=== PATIENT | female | born 2000 | race Caucasian/White ===

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

== ENCOUNTER 2023-01-14 13:41 | Emergency (ER) | payer OTHER, SELFPAY ==
[2023-01-14] VITALS (21 sets, daily range): BP systolic 102–118; BP diastolic 72–89; PULSE 71–121; RESP 10–26; TEMP 36.4; O2SAT 97–100
--- NOTE | ~2023-01-14 | CT_ITS ---
EXAMINATION: CT brain wo con DATE: 01/14/2023 15:18 INDICATION: Seizure. TECHNIQUE: Computed tomography (CT) of the head was performed without intravenous contrast. The mA wa s adjusted according to patient size. Iterative reconstruction technique was employed. The dose-lengt h product was 529.67 mGy-cm. COMPARISON: None FINDINGS: There is no intracranial hemorrhage, acute infarction, or abnormal intracranial mass lesion . The ventricles are normal in size. The orbits are normal. The paranasal sinuses are clear. The mast oid air cells are normal. IMPRESSION: 1. Normal brain. Reviewed, dictated and finalized at location A. [employer] IMPRESSION: 1. Normal brain.
--- NOTE | 2023-01-14 14:11 | ED.SEIZURE ---
HPI - Seizure General Chief Complaint: Seizure Stated Complaint: Siezure Time Seen by Provider: 01/14/23 14:07 Source: patient and family (mother and grandmother) Limitations: no limitations History of Present Illness HPI Narrative: This is a 22 yo female who presents after report of a seizure. Patient is on a number of psychiatric medications (see below). She had her first seizure in November 2022. This occurred while she was in [facility] and she knows they did lab work but unknown if a head CT was performed. Seizure at that time was attributed to sleep deprivation and medication withdrawal as she is prescribed clonazepam but hda been without that medication for a few days. She resumed the medication but has again been without it for the past 5 days despite having refills available. Meds are prescribed through her psychiatrist Dr Jennifer Huber. Mother reports today at 1310 she experienced 30 seconds of intermittent stiffness and shaking after she stopped talking mid-sentence. Head was deviated to the left. Activity stopped on its own and she was reportedly postictal for 5-7 minutes afterwards. no incontinence bowel/bladder and no tongue trauma. Denies drug use; former marijuana but not recently. She does endorse decresaed sleep and significant anxiety. She has been on clonazepam 1mg BID PRN since she was 18 years old but essentially uses it daily BID given her anxiety. Medication list is as below (minus cyproheptadine) in addition to the following: clonazepam, doxepin, lamotrigine, mirtazapine, chlorperazine, Buspar , buproprion Related Data Home Medications Medication Instructions Recorded Confirmed clonazepam 1 mg tablet 1 tablet PO TID 07/17/21 07/18/21 cyproheptadine 4 mg tablet See Rx Instructions .Route .COMPLEX 07/17/21 07/18/21 fluoxetine 20 mg capsule 20 cap PO DAILY 07/17/21 07/18/21 gabapentin 300 mg capsule 300 cap PO TID 07/17/21 07/18/21 hydroxyzine HCl 10 mg tablet 10 tablet PO TID 07/17/21 07/18/21 olanzapine 15 mg tablet 15 tablet PO DAILY 07/17/21 07/18/21 quetiapine 50 mg tablet 1 tablet PO BID 07/17/21 07/18/21 ondansetron HCl 8 mg tablet 8 mg PO Q8H 07/20/21 Allergies Allergy/AdvReac Type Severity Reaction Status Date / Time No Known Allergies Allergy Verified 01/14/23 13:49 [facility] Past Medical History Medical History (Updated 01/17/23 @ 11:06 by Julia Henley MD) Anxiety Depression Drug withdrawal seizure History of eating disorder Family History Family History Grandparent History of alcoholism Depression Mother History of alcoholism Hypertension Depression Social History Social History (Updated 01/17/23 @ 11:07 by Julia Henley MD) Smoking status: Never smoker Alcohol intake: never Substance use: former Substance use type: marijuana Living arrangements: with roommate(s) Occupation/Education: occupation Gender identity (if verbalized by the patient): Female Exam Narrative: GENERAL: Thin but Well-appearing, well-nourished, and in no acute distress. HEAD: Normocephalic, atraumatic. EYES: PERRLA, large approximately 6mm. ENT: Nares clear, no rhinorrhea or epistaxis. Mucous membranes moist. NECK: Supple. No rigidity CHEST: Speaking in full sentences. No respiratory distress. HEART: Regular rate and rhythm. Normal peripheral pulses. ABDOMEN: Soft, , nondistended, EXTREMITIES: Normal range of motion. No edema. SKIN: Warm, dry, no rash. NEURO: No focal deficits. Alert and oriented x3. Sensation intact to gross touch throughout. Facial symmetry with mvoements and touch. Stable gait. No clonus in bilateral lower extremities PSYCH: Normal mood and affect. Course Vital Signs Vital signs: Vital Signs Temperature 97.6 F 01/14/23 13:43 Pulse Rate 89 01/14/23 13:43 Respiratory Rate 16 01/14/23 13:43 Blood Pressure 112/89 01/14/23 13:43 Pulse Oximetry 100 01/14/23 13:43
[2023-01-14 18:10] LABS: Appearance Urine Clear (Clear); Bilirubin Urine Negative (Negative); Blood Urine Negative (Negative); Color Urine Yellow (Yellow); Glucose Urine UA Negative (Negative); Ketones Urine Negative (Negative); Leukocyte Esterase Ur Negative LEU/UL (Negative); Nitrate Urine Negative (Negative); Protein Urine Negative (Negative); Specific Grav Ur 1.014 (1.001-1.035); Urobilinogen Urine 0.2 mg/dL (<2.0)
[2023-01-14 18:13] LABS: Add Urine Microscopic? NO
[2023-01-14 18:18] LABS: Alanine Aminotransferase 14 U/L (6-35); Albumin Level 4.6 g/dL (3.5-5.1); Alkaline Phosphatase 90 U/L (38-126); Anion Gap 9 mmol/L (8-16); Aspartate Amino Transferase 25 U/L (14-36); Bilirubin,Total 0.4 mg/dL (0.2-1.3); Blood Urea Nitrogen 10 mg/dL (7-17); Calcium 9.2 mg/dL (8.4-10.2); Carbon Dioxide 25 mmol/L (22-30); Chloride 101 mmol/L (98-107); Estimated CRCL calculation 74 ml/min; Estimated Glomerular Filt Rate > 60; Glucose 87 mg/dL (65-110); Sodium 135 mmol/L (137-145)
[2023-01-14 18:28] LABS: Barbiturate Screen Urine Negative (Negative); Benzodiazepines Screen Urine Negative (Negative)
[2023-01-14 18:31] LABS: Cannabinoid Screen Urine Negative (Negative); Methadone Screen Urine Negative (Negative); Opiate Screen Urine Negative (Negative); Phencyclidine Screen Urine Negative (Negative)
[2023-01-14 18:39] LABS: Amphetamine Screen Urine Negative (Negative); Cocaine Screen Urine Negative (Negative)
[2023-01-14] MEDS: clonazePAM (*CRX) 0.5 MG TABLET 1 MG PO (19:22)
== END 2023-01-14 19:27 | disposition home or self-care (01) ==
PROVIDERS: Emergency Provider Student in an Organized Health Care Education/Training Program; PCP Family Medicine
DX: F13.239 Sedative, hypnotic or anxiolytic dependence with withdrawal, unspecified (principal); R56.9 Unspecified convulsions; T42.4X6A Underdosing of benzodiazepines, initial encounter; F41.9 Anxiety disorder, unspecified; F32.A Depression, unspecified
CPT/HCPCS: 36415; 70450; 80053; 80307; 81003; 81025; 95864; 99284; A9270

== ENCOUNTER 2023-02-08 09:21 | Emergency (ER) | payer OTHER, SELFPAY ==
--- NOTE | ~2023-02-08 | XR_ITS ---
XR elbow RT min 3V 02/08/2023 09:39 INDICATION: Right elbow pain PROCEDURE: 4 views right elbow COMPARISON: No prior studies for comparison. FINDINGS: Fracture, dislocation or subluxation is not identified. The soft tissues appear within norm al limits. No foreign bodies are identified. IMPRESSION: 1: NO ACUTE BONE OR JOINT ABNORMALITY IDENTIFIED. Reviewed, dictated and finalized at location A. HT STEWARD
--- NOTE | 2023-02-08 09:32 | ED.GENADULT ---
HPI - General Adult General Chief complaint: Extremity Injury, Upper Stated complaint: dislocated elbow Time Seen by Provider: 02/08/23 09:28 History of Present Illness HPI narrative: 22-year-old female presenting to the emergency department for evaluation of right elbow pain. Patient states that she has no recall of pain or injury. Patient went to bed last night with no elbow pain but she woke up this morning with right elbow pain. Patient's right elbow is tender to palpation Related Data Home Medications Medication Instructions Recorded Confirmed clonazepam 1 mg tablet 1 tablet PO TID 07/17/21 07/18/21 cyproheptadine 4 mg tablet See Rx Instructions .Route .COMPLEX 07/17/21 07/18/21 fluoxetine 20 mg capsule 20 cap PO DAILY 07/17/21 07/18/21 gabapentin 300 mg capsule 300 cap PO TID 07/17/21 07/18/21 hydroxyzine HCl 10 mg tablet 10 tablet PO TID 07/17/21 07/18/21 olanzapine 15 mg tablet 15 tablet PO DAILY 07/17/21 07/18/21 quetiapine 50 mg tablet 1 tablet PO BID 07/17/21 07/18/21 ondansetron HCl 8 mg tablet 8 mg PO Q8H 07/20/21 Allergies Allergy/AdvReac Type Severity Reaction Status Date / Time No Known Allergies Allergy Verified 01/14/23 13:49 Review of Systems Review of Systems: All systems reviewed & are unremarkable except as noted in HPI and below PMFSH Past Medical History Medical History (Updated 02/08/23 @ 10:20 by Obi Gloria MD) Anxiety Depression Drug withdrawal seizure History of eating disorder Family History Family History Grandparent History of alcoholism Depression Mother History of alcoholism Hypertension Depression Social History Social History (Updated 01/17/23 @ 11:07 by Julia Henley MD) Smoking status: Never smoker Alcohol intake: never Substance use: former Substance use type: marijuana Living arrangements: with roommate(s) Occupation/Education: occupation Gender identity (if verbalized by the patient): Female Exam Narrative: APPEARANCE: Well appearing, no pain, no distress, well-nourished. HEAD: normocephalic, atraumatic. EYES: PERRLA/EOMI, conjunctivae clear. NECK: Supple. No adenopathy, no masses. RESPIRATORY: Airway patent, respirations nonlabored. Clear to auscultation bilaterally, no rales, rhonchi, wheezing. CARDIOVASCULAR: Regular rate and rhythm without murmurs rubs or gallops. ABDOMINAL: Soft, nontender, nondistended, normal bowel sounds MUSCULOSKELETAL: Tenderness to right elbow without deformity, effusion or overlying erythema NEURO: Alert. Cranial nerves II through XII intact. Grossly intact SKIN: Warm, dry. Normal Color Course Course Emergency Course: 22-year-old female present to the emergency department for evaluation of right elbow pain. X-rays were negative for acute fracture dislocation. Patient exam is not consistent with septic arthritis, cellulitis or bursitis. Patient is being placed in a sling for comfort. Patient was advised to take Tylenol and ibuprofen for pain control. Patient family were also updated on reasons to return to the emergency department and the importance of having close follow-up with her primary care physician. All questions were addressed patient was well-appearing at time of discharge. Vital Signs Vital signs: Vital Signs Pulse Oximetry 100 02/08/23 09:34 Blood Pressure 116/88 02/08/23 10:01 Pulse Oximetry 100 02/08/23 10:01 Medical Decision Making Differential Diagnosis Differential Diagnosis: Elbow fracture, elbow contusion, elbow sprain, bursitis Vital Signs Vital Signs: Vital Signs Pulse Oximetry 100 02/08/23 09:34 Blood Pressure 116/88 02/08/23 10:01 Pulse Oximetry 100 02/08/23 10:01 Imaging Data Radiologist's impression: Impressions Elbow X-Ray 02/08/23 09:41 IMPRESSION: 1: NO ACUTE BONE OR JOINT ABNORMALITY IDENTIFIED. Discharge Plan
[2023-02-08 09:34] VITALS: O2SAT 100
[2023-02-08 09:45] VITALS: O2SAT 100
[2023-02-08 09:46] VITALS: BP 125/84; O2SAT 100
[2023-02-08 10:00] VITALS: O2SAT 99
[2023-02-08 10:01] VITALS: BP 116/88; O2SAT 100
== END 2023-02-08 10:36 | disposition home or self-care (01) ==
PROVIDERS: Emergency Provider Emergency Medicine; PCP Family Medicine
DX: M25.521 Pain in right elbow (principal); F41.9 Anxiety disorder, unspecified; F32.A Depression, unspecified
CPT/HCPCS: 73080; 99283; A4565

== ENCOUNTER 2023-04-02 15:31 | Emergency (ER) | payer OTHER, SELFPAY ==
[2023-04-02] VITALS (8 sets, daily range): BP systolic 93–122; BP diastolic 59–84; PULSE 72–117; RESP 12–18; TEMP 36.8–36.9; O2SAT 96–98
--- NOTE | 2023-04-02 15:46 | ED.SEIZURE ---
HPI - Seizure General Chief Complaint: Seizure Stated Complaint: SEIZURE Time Seen by Provider: 04/02/23 15:38 Source: patient and family Mode of arrival: EMS Limitations: no limitations History of Present Illness HPI Narrative: Patient presents after report of a seizure. It was reportedly witnessed by brother who does not accompany patient to ED. Unknown what it looked like or how long it lasted but it aborted on its own. No incontinence of bowel or bladder or tongue trauma. Patient had a seizure in January 2023 for which she presented to the ED and had a work up. That had been attributed to medication/benzodiazepine withdrawal but she had also been advised to follow up outpatient for MRI and EEG and to see neurology. Patient has not followed through on this. She did start taking her medication but has been slowly tapering off of this as well as hydroxyzine under the direction of her psychiatrist / PCP. She denies any alcohol or drug. She also had a seizure in February, thus 3 seizures in the past 8 weeks. She states her sleep is poor. Patient's family member does produce a list of current medications, as follows: buspirone 10 mg tablet, gabapentin 300 mg 2 times a day, fluoxetine 80 mg daily, lamotrigine 200 mg at night, quetiapine 500 mg at night, iron 325 mg. Of note, this shows/means that clonazepam, hydroxyzine, and mirtazapine have all been discontinued; all with final doses 03/24/23. Related Data Home Medications Medication Instructions Recorded Confirmed clonazepam 1 mg tablet 1 tablet PO TID 07/17/21 07/18/21 cyproheptadine 4 mg tablet See Rx Instructions .Route .COMPLEX 07/17/21 07/18/21 fluoxetine 20 mg capsule 20 cap PO DAILY 07/17/21 07/18/21 gabapentin 300 mg capsule 300 cap PO TID 07/17/21 07/18/21 hydroxyzine HCl 10 mg tablet 10 tablet PO TID 07/17/21 07/18/21 olanzapine 15 mg tablet 15 tablet PO DAILY 07/17/21 07/18/21 quetiapine 50 mg tablet 1 tablet PO BID 07/17/21 07/18/21 ondansetron HCl 8 mg tablet 8 mg PO Q8H 07/20/21 Allergies Allergy/AdvReac Type Severity Reaction Status Date / Time No Known Allergies Allergy Verified 04/02/23 16:32 [facility] Past Medical History Medical History Anxiety Depression Drug withdrawal seizure History of eating disorder Family History Family History Grandparent History of alcoholism Depression Mother History of alcoholism Hypertension Depression Social History Social History Smoking status: Never smoker Alcohol intake: never Substance use: former Substance use type: marijuana Living arrangements: with roommate(s) Occupation/Education: unemployed Additional occupation/education comments: not currently working or in school Gender identity (if verbalized by the patient): Female Exam Narrative: ?GENERAL: Thin but Well-appearing, well-nourished, and in no acute distress. HEAD: Normocephalic, atraumatic. EYES: large approximately 6mm. No scleral icterus/injection. ENT: Nares clear, no rhinorrhea or epistaxis.? NECK: Supple. No rigidity CHEST: Speaking in full sentences.? No respiratory distress. HEART: tachycardic rate and rhythm.? ? Normal peripheral pulses. ABDOMEN: Soft, , nondistended, EXTREMITIES: Normal range of motion.? No edema. SKIN: Warm, dry, no rash. NEURO: No focal deficits. Moving all extremities. ? Alert and oriented except to day of the week (confused, believes it is ). Sensation intact to gross touch throughout. Facial symmetry with movements. No clonus in bilateral lower extremities. No uncontrolled movements. PSYCH: Normal mood and affect. Course Vital Signs Vital signs: Vital Signs Temperature 98.4 F 04/02/23 15:46 Pulse Rate 117 H 04/02/23 15:46 Respiratory Rate 18 04/02/23 15:46 Blood Pressure 121/80 04/02/23 15:46 P
[2023-04-02] MEDS: ACETAMINOPHEN 325 MG TABLET 650 MG PO (16:37)
[2023-04-02 16:48] LABS: Glucose Point of Care 100 mg/dl (65-105)
[2023-04-02 16:49] LABS: Basophils Percent Auto 0.4 % (0.2-1.2); Hematocrit 39.5 % (37.0-47.0); Hemoglobin 12.3 g/dL (12.0-15.0); Immature Granulocyte Absolute 0.04 K/mm3 (0.00-0.031); Immature Granulocyte Percent A 0.6 % (0-0.5); Lymphocytes Absolute Auto 1.38 K/mm3 (0.9-3.2); Lymphocytes Percent Auto 19.4 % (18.3-44.2); Mean Corpuscular HGB Conc 31.1 g/dl (32-36); Mean Corpuscular Hemoglobin 25.7 pg (26-34); Mean Corpuscular Volume 82.6 fl (80-100); Monocytes Absolute Auto 0.7 K/mm3 (0.1-0.6); Neutrophils Percent Auto 69.6 % (45.5-73.1); Platelet Count Result 307 k/mm3 (150-375); Red Blood Count 4.78 M/mm3 (4.2-5.4); Red Cell Distribution Width 15.9 % (11.5-14.5); White Blood Count 7.1 K/mm3 (4.5-10.0)
[2023-04-02 17:10] LABS: Alanine Aminotransferase 16 U/L (6-35); Albumin Level 4.4 g/dL (3.5-5.1); Alkaline Phosphatase 71 U/L (38-126); Anion Gap 9 mmol/L (8-16); Aspartate Amino Transferase 28 U/L (14-36); Bilirubin,Total 0.5 mg/dL (0.2-1.3); Blood Urea Nitrogen 9 mg/dL (7-17); Calcium 9.2 mg/dL (8.4-10.2); Carbon Dioxide 24 mmol/L (22-30); Chloride 104 mmol/L (98-107); Estimated CRCL calculation 68 ml/min; Estimated Glomerular Filt Rate > 60; Glucose 85 mg/dL (65-110); Potassium 4.1 mmol/L (3.4-5.0); Sodium 137 mmol/L (137-145)
[2023-04-02] MEDS: SODIUM CHLORIDE 0.9% IV 1,000 ML 999 ML IV CONT (18:16)
--- NOTE | 2023-04-02 19:18 | PC.NURSE ---
Report given to Luiza ALEXANDER, all questions answered.
[2023-04-02 22:00] LABS: Barbiturate Screen Urine Negative (Negative); Benzodiazepines Screen Urine Negative (Negative); Cannabinoid Screen Urine Positive (Negative); Cocaine Screen Urine Negative (Negative); Methadone Screen Urine Negative (Negative); Opiate Screen Urine Negative (Negative); Phencyclidine Screen Urine Negative (Negative)
[2023-04-02 23:09] LABS: Amphetamine Screen Urine Negative (Negative)
== END 2023-04-02 22:09 | disposition home or self-care (01) ==
PROVIDERS: Emergency Provider Student in an Organized Health Care Education/Training Program; PCP Family Medicine
DX: R56.9 Unspecified convulsions (principal)
CPT/HCPCS: 36415; 80053; 80307; 82948; 85025; 96360; 96361; 99284; A9270; J7030

== ENCOUNTER 2023-04-15 20:43 | Emergency (ER) | payer OTHER, SELFPAY ==
[2023-04-15 21:12] VITALS: BP 142/84; PULSE 90; RESP 18; TEMP 37.1; O2SAT 100
[2023-04-15] MEDS: ONDANSETRON HCL ODT 4 MG TABLET PO (22:29)
[2023-04-15] MEDS: LORazepam (*CRX) 1 MG TABLET PO (22:30)
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
--- NOTE | 2023-04-15 23:45 | PC.NURSE ---
Spoke with HE Amor regarding pt's increased anxiety symptoms. States she will come see pt.
[2023-04-16] VITALS (31 sets, daily range): BP systolic 95–145; BP diastolic 24–92; PULSE 99–123; RESP 12–26; TEMP 36.6; O2SAT 95–100
--- NOTE | 2023-04-16 00:22 | PC.NURSE ---
Bedside report given to BENJAMIN Sparks. Pt moved from 21 to 14 for cardiac monitoring.
--- NOTE | 2023-04-16 00:53 | ED.ANXIETY ---
HPI - Anxiety General Chief Complaint: Anxiety <MERI Mead Last Filed: 04/17/23 09:48> Stated Complaint: anxiety <MERI Mead Last Filed: 04/17/23 09:48> Time Seen by Provider: 04/15/23 23:09 <MERI Mead Last Filed: 04/17/23 09:48> Source: patient <MERI Mead Last Filed: 04/17/23 09:48> Mode of arrival: ambulatory <MERI Mead Last Filed: 04/17/23 09:48> Limitations: no limitations <MERI Mead Last Filed: 04/17/23 09:48> History of Present Illness HPI narrative: This is a 22 year old female that presents to the ER for anxiety. Reports worsening over the last couple of days with stress in her life. Patient currently nauseas, hyperventilating, and asking for help. Denies suicidal or homicidal ideation. <MERI Mead Last Filed: 04/17/23 09:48> Related Data Home Medications: Home Medications Medication Instructions Recorded Confirmed clonazepam 1 mg tablet 1 tablet PO TID 07/17/21 07/18/21 cyproheptadine 4 mg tablet See Rx Instructions .Route .COMPLEX 07/17/21 07/18/21 fluoxetine 20 mg capsule 20 cap PO DAILY 07/17/21 07/18/21 gabapentin 300 mg capsule 300 cap PO TID 07/17/21 07/18/21 hydroxyzine HCl 10 mg tablet 10 tablet PO TID 07/17/21 07/18/21 olanzapine 15 mg tablet 15 tablet PO DAILY 07/17/21 07/18/21 quetiapine 50 mg tablet 1 tablet PO BID 07/17/21 07/18/21 ondansetron HCl 8 mg tablet 8 mg PO Q8H 07/20/21 <MERI Mead Last Filed: 04/17/23 09:48> Allergies/Adverse Reactions: Allergies Allergy/AdvReac Type Severity Reaction Status Date / Time No Known Allergies Allergy Verified 04/15/23 21:37 <Zuleyma Andrews PA-C - Last Filed: 04/17/23 09:48> Review of Systems Review of Systems: CONSTITUTIONAL: Denies fever GASTROINTESTINAL: Reports nausea, vomiting PSYCHIATRIC: Reports anxiety. Denies depression. <Zuleyma Andrews PA-C - Last Filed: 04/17/23 09:48> All systems reviewed & are unremarkable except as noted in HPI and below <Zuleyma Andrews PA-C - Last Filed: 04/17/23 09:48> PMFSH Past Medical History Medical History: Medical History Anxiety Depression Drug withdrawal seizure History of eating disorder <Zuleyma Andrews PA-C - Last Filed: 04/17/23 09:48> Family History Family History: Family History Grandparent History of alcoholism Depression Mother History of alcoholism Hypertension Depression <Zuleyma Andrews PA-C - Last Filed: 04/17/23 09:48> Social History Social History: Social History Smoking status: Never smoker Alcohol intake: never Substance use: former Substance use type: marijuana and prescription drug Living arrangements: with roommate(s) Occupation/Education: unemployed Additional occupation/education comments: not currently working or in school Gender identity (if verbalized by the patient): Female <MERI Mead Last Filed: 04/17/23 09:48> Exam Narrative: GENERAL: Well-appearing, well-nourished, anxious HEAD: Normocephalic, atraumatic. EYES: EOMI. CHEST: Clear to auscultation. No respiratory distress. No wheezes rales or rhonchi HEART: Regular rate and rhythm. No murmur heard. Normal peripheral pulses. ABDOMEN: Soft, nontender, nondistended, normal active bowel sounds. EXTREMITIES: Normal range of motion. No edema. SKIN: Warm, dry, no rash. NEURO: No focal deficits. Alert and oriented x3. PSYCH: Anxious, tearful <Zuleyma Andrews PA-C - Last Filed: 04/17/23 09:48> Course Course Emergency Course: Patient updated on her workup. Resting much more comfortably after Ativan. Awaiting consult by crisis. Care taken over by Dr. Swanson at shift change <Zuleyma Andrews PA-C - Last Filed:
--- NOTE | 2023-04-16 00:54 | PC.NURSE ---
IV attempted x 2, unsuccessful. Requested US IV from BENJAMIN Castano.
[2023-04-16 00:56] LABS: Basophils Percent Auto 0.2 % (0.2-1.2); Hematocrit 43.8 % (37.0-47.0); Immature Granulocyte Absolute 0.03 K/mm3 (0.00-0.031); Immature Granulocyte Percent A 0.3 % (0-0.5); Lymphocytes Absolute Auto 1.53 K/mm3 (0.9-3.2); Lymphocytes Percent Auto 14.4 % (18.3-44.2); Mean Corpuscular Hemoglobin 26.9 pg (26-34); Mean Corpuscular Volume 84.1 fl (80-100); Mean Platelet Volume 10.3 fl (7.4-10.4); Monocytes Absolute Auto 0.7 K/mm3 (0.1-0.6); Monocytes Percent Auto 6.6 % (2.6-8.5); Neutrophils Absolute Auto 8.4 K/mm3 (1.3-6.7); Neutrophils Percent Auto 78.5 % (45.5-73.1); Platelet Count Result 432 k/mm3 (150-375); Red Blood Count 5.21 M/mm3 (4.2-5.4); White Blood Count 10.7 K/mm3 (4.5-10.0)
[2023-04-16 01:07] LABS: Ethanol < 10 mg/dL (<10)
[2023-04-16] MEDS: SODIUM CHLORIDE 0.9% IV 1,000 ML 999 ML IV CONT ×2 (01:11→02:06)
[2023-04-16] MEDS: LORazepam INJ (*CRX) 2 MG/ML VIAL 1 MG IV PUSH (01:12)
[2023-04-16 01:55] LABS: Lipase 132 U/L (23-300)
[2023-04-16 01:57] LABS: Influenza A QL RT-PCR Negative (Negative); Influenza B QL RT-PCR Negative (Negative); RSV RNA, RT-PCR Negative (Negative); SARS-CoV-2 RNA PCR Negative (Negative)
[2023-04-16 02:12] LABS: Free T4 Free Thyroxine Reflex 1.01 ng/dL (0.78-2.19)
[2023-04-16 02:29] LABS: Alanine Aminotransferase 22 U/L (6-35); Alkaline Phosphatase 105 U/L (38-126); Anion Gap 14 mmol/L (8-16); Aspartate Amino Transferase 34 U/L (14-36); Bilirubin,Total 0.7 mg/dL (0.2-1.3); Blood Urea Nitrogen 12 mg/dL (7-17); Calcium 9.7 mg/dL (8.4-10.2); Carbon Dioxide 19 mmol/L (22-30); Chloride 106 mmol/L (98-107); Estimated CRCL calculation 74 ml/min; Estimated Glomerular Filt Rate > 60; Glucose 117 mg/dL (65-110); Potassium 3.8 mmol/L (3.4-5.0); Sodium 139 mmol/L (137-145)
[2023-04-16 02:57] LABS: Appearance Urine Cloudy (Clear); Bacteria Urine Rare /hpf; Bilirubin Urine Negative (Negative); Blood Urine Negative (Negative); Color Urine Yellow (Yellow); Glucose Urine UA Negative (Negative); Ketones Urine 2+ mg/dL (Negative); Leukocyte Esterase Ur Negative LEU/UL (Negative); Nitrate Urine Negative (Negative); Protein Urine 1+ mg/dL (Negative); RBC Urine 0-2 /hpf (0-2); Specific Grav Ur 1.025 (1.001-1.035); Squamous Epithelial Cell Urine Moderate /hpf (Few); WBC Urine 0-5 /hpf
[2023-04-16 03:12] LABS: Amphetamine Screen Urine Negative (Negative); Barbiturate Screen Urine Negative (Negative); Benzodiazepines Screen Urine Negative (Negative); Cannabinoid Screen Urine Positive (Negative); Cocaine Screen Urine Negative (Negative); Methadone Screen Urine Negative (Negative); Opiate Screen Urine Negative (Negative); Phencyclidine Screen Urine Negative (Negative)
[2023-04-16 03:21] LABS: Add Urine Microscopic? YES
[2023-04-16 03:22] LABS: Pregnancy On Board Control Positive; Urine Pregnancy Test Negative
== END 2023-04-16 07:55 | disposition home or self-care (01) ==
PROVIDERS: Physician Assistant; Emergency Provider Emergency Medicine; PCP Family Medicine
DX: F41.9 Anxiety disorder, unspecified (principal); F32.A Depression, unspecified; Z11.52 Encounter for screening for COVID-19
CPT/HCPCS: 36415; 80053; 80307; 81001; 81025; 83690; 84439; 84443; 84480; 85025; 87637; 96361; 96374; 99284; A9270; J2060; J7030

== ENCOUNTER 2023-04-19 15:15 | Emergency (ER) | payer OTHER, SELFPAY ==
[2023-04-19] VITALS (124 sets, daily range): BP systolic 105–140; BP diastolic 65–98; PULSE 76–120; RESP 12–39; TEMP 36.2–36.6; O2SAT 94–100
--- NOTE | ~2023-04-19 | XR_ITS ---
EXAMINATION: XR chest ET placement DATE: 04/19/2023 15:57 INDICATION: Intubation. TECHNIQUE: A single frontal view of the chest was obtained. COMPARISON: None. FINDINGS: There is no pneumonia, pleural effusion, or pneumothorax. The heart size is normal. The end otracheal tube tip is 2.4 cm above the jamila. The nasogastric tube tip is beyond the inferior margin of the radiograph, but at least to the stomach. IMPRESSION: 1. No acute cardiopulmonary disease. Reviewed, dictated and finalized at location E. NER CCO
--- NOTE | ~2023-04-19 | CT_ITS ---
EXAMINATION: CT brain wo con DATE: 04/19/2023 20:01 INDICATION: Seizure. Altered mental status. TECHNIQUE: Computed tomography (CT) of the head was performed without intravenous contrast. The mA wa s adjusted according to patient size. Iterative reconstruction technique was employed. The dose-lengt h product was 681.00 mGy-cm. COMPARISON: Head CT 01/14/2023 FINDINGS: There is no intracranial hemorrhage, acute infarction, or abnormal intracranial mass lesion . The ventricles are normal in size. The orbits are normal. The paranasal sinuses are clear. The mast oid air cells are normal. IMPRESSION: 1. Normal brain. Reviewed, dictated and finalized at location E. ANCE WILDLIFE TRAPPER IMPRESSION: 1. Normal brain.
--- NOTE | ~2023-04-19 | XR_ITS ---
EXAMINATION: XR abdomen gastric tube insert DATE: 04/19/2023 15:56 INDICATION: Orogastric tube placement TECHNIQUE: A supine view of the abdomen was obtained for evaluation of feeding tube placement. COMPARISON: None. FINDINGS: Nasogastric tube tip in proximal side port in the body of the stomach. No dilated loops of gas-filled bowel in the visualized abdomen or pelvis. Visualized portion of the lung bases are clear. IMPRESSION: 1. Nasogastric tube in the stomach. Reviewed, dictated and finalized at location A. GY CONSULTANT
[2023-04-19] MEDS: LORazepam INJ (*CRX) 2 MG/ML VIAL (15:22)
[2023-04-19] MEDS: RAPID SEQUENCE INTUBATION KIT 1 EACH (15:28)
--- NOTE | 2023-04-19 15:34 | ECG_ITS ---
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
--- NOTE | 2023-04-19 15:42 | ED.GENADULT ---
HPI - General Adult General Chief complaint: Overdose <Vadim Treviño MD - Last Filed: 04/19/23 18:16> Stated complaint: intentional OD on psych meds <Vadim Treviño MD - Last Filed: 04/19/23 18:16> Time Seen by Provider: 04/19/23 15:32 <Vadim Treviño MD - Last Filed: 04/19/23 18:16> History of Present Illness HPI narrative: She has patient 22-year-old female who presents emergency department with chief complaint overdose. Patient apparently took between 50 and 60 pills this evening. The patient has prior history of withdrawal and anxiety induced seizures the patient also has history of possible PTSD. EMS reports that the patient started having seizures in the back of the ambulance and had 2 of them and then seized in the emergency department. <Vadim Treviño MD - Last Filed: 04/19/23 18:16> Related Data Home medications: Home Medications Medication Instructions Recorded Confirmed clonazepam 1 mg tablet 1 tablet PO TID 07/17/21 07/18/21 cyproheptadine 4 mg tablet See Rx Instructions .Route .COMPLEX 07/17/21 07/18/21 fluoxetine 20 mg capsule 20 cap PO DAILY 07/17/21 07/18/21 gabapentin 300 mg capsule 300 cap PO TID 07/17/21 07/18/21 hydroxyzine HCl 10 mg tablet 10 tablet PO TID 07/17/21 07/18/21 olanzapine 15 mg tablet 15 tablet PO DAILY 07/17/21 07/18/21 quetiapine 50 mg tablet 1 tablet PO BID 07/17/21 07/18/21 ondansetron HCl 8 mg tablet 8 mg PO Q8H 07/20/21 <Vadim Treviño MD - Last Filed: 04/19/23 18:16> Allergies/adverse reactions: Allergies Allergy/AdvReac Type Severity Reaction Status Date / Time No Known Allergies Allergy Verified 04/15/23 21:37 <Vadim Treviño MD - Last Filed: 04/19/23 18:16> Review of Systems Review of Systems: A 10 system review of systems was completed on the patient and is negative except for what is stated in the HPI. Nursing and ancillary documentation was reviewed. <Vadim Treviño MD - Last Filed: 04/19/23 18:16> [facility] Past Medical History Medical History: Medical History Anxiety Depression Drug withdrawal seizure History of eating disorder <Vadim Treviño MD - Last Filed: 04/19/23 18:16> Family History Family History: Family History Grandparent History of alcoholism Depression Mother History of alcoholism Hypertension Depression <Vadim Treviño MD - Last Filed: 04/19/23 18:16> Social History Social History: Social History Smoking status: Never smoker Alcohol intake: never Substance use: former Substance use type: marijuana and prescription drug Living arrangements: with roommate(s) Occupation/Education: unemployed Additional occupation/education comments: not currently working or in school Gender identity (if verbalized by the patient): Female <Vadim Treviño MD - Last Filed: 04/19/23 18:16> Exam Narrative: GENERAL: Ill-appearing actively seizing combative HEAD: Normocephalic, atraumatic. EYES: PERRLA and EOMI. ENT: Nares clear, no rhinorrhea or epistaxis. Mucous membranes moist. NECK: Supple. CHEST: Clear to auscultation. No respiratory distress. HEART: Regular rate and rhythm. No murmur heard. Normal peripheral pulses. ABDOMEN: Soft, nontender, nondistended, normal active bowel sounds. EXTREMITIES: Normal range of motion. No edema. SKIN: Warm, dry, no rash. NEURO: Confused seizing PSYCH: Unable to obtain. <Vadim Treviño MD - Last Filed: 04/19/23 18:16> Course Course Emergency Course: 2315 GWENDOLYN: Patient sign it me pending transfer to [place]. [facility] cm not have a bed overnight. Patient was accepted at [facility] by Dr. Hancock and was transferred. <Alessandro Solis MD - Last
--- NOTE | 2023-04-19 15:44 | PC.NURSE ---
Call placed to poison control. They recommend supportive care and monitor for seizure activity.
[2023-04-19] MEDS: SODIUM CHLORIDE 0.9% IV 1,000 ML 999 ML IV CONT ×2 (15:45→16:10)
[2023-04-19] MEDS: MIDAZOLAM 100MG/NS 100ML(*CRX) 100 MG/100 ML BAG IV CONT (16:05)
[2023-04-19] MEDS: PROPOFOL IV EMULSION 100 ML 1.8 MG IV CONT (16:20)
[2023-04-19 16:32] LABS: Hematocrit 33.8 % (37.0-47.0); Hemoglobin 10.2 g/dL (12.0-15.0); Mean Corpuscular HGB Conc 30.2 g/dl (32-36); Mean Corpuscular Hemoglobin 27.2 pg (26-34); Mean Corpuscular Volume 90.1 fl (80-100); Mean Platelet Volume 9.7 fl (7.4-10.4); Platelet Count Result 384 k/mm3 (150-375); Red Blood Count 3.75 M/mm3 (4.2-5.4); Red Cell Distribution Width 16.1 % (11.5-14.5)
[2023-04-19 16:39] LABS: Alveolar/Arterial O2 Gradient 107.8 mmHg; Base Excess ABG -17.7 mEq/l (+/-2.0); Fractional Inspired Oxygen 100 %; HCO3 ABG 10.1 mEq/l (22.0-26.0); Oxygen Content ABG 18.5 %vol (16.0-22.0); Oxygen Saturation ABG 99.9 % (95.0-100.0); Oxyhemoglobin 98.4 % THb (90.0-100.0); PCO2 ABG 30.7 mmHg (35.0-45.0); PO2 ABG < 570.0 mmHg (80.0-100.0); PO2 FiO2 Ratio Arterial Blood 5.74 %; Total Hemoglobin 12.2 g/dL (12.0-18.0)
[2023-04-19 16:40] LABS: pH ABG 7.135 (7.350-7.450)
[2023-04-19 16:41] LABS: Arterial Blood Gas Vent Mode CMV; Arterial Blood Gas Ventilator rate 12 /MIN; Device VENTILATOR; Modified Allen's Test Pass; Site Drawn RIGHT RADIAL
[2023-04-19 16:42] LABS: Acetaminophen < 10 ug/mL (10-30); Ethanol < 10 mg/dL (<10); Salicylate < 1.0 mg/dL (2-20)
[2023-04-19 16:43] LABS: Arterial Blood Gas Minute Volume 3.7 LPM; Arterial Blood Gas PEEP 5 cmH2O
[2023-04-19 16:44] LABS: Alanine Aminotransferase 38 U/L (6-35); Albumin Level 3.2 g/dL (3.5-5.1); Alkaline Phosphatase 61 U/L (38-126); Anion Gap 20 mmol/L (8-16); Aspartate Amino Transferase 26 U/L (14-36); Bilirubin,Total 0.2 mg/dL (0.2-1.3); Blood Urea Nitrogen 13 mg/dL (7-17); Calcium 6.6 mg/dL (8.4-10.2); Carbon Dioxide 7 mmol/L (22-30); Chloride 112 mmol/L (98-107); Estimated CRCL calculation 65 ml/min; Estimated Glomerular Filt Rate > 60; Glucose 198 mg/dL (65-110); Potassium 2.7 mmol/L (3.4-5.0); Sodium 139 mmol/L (137-145)
[2023-04-19 16:44] LABS: Arterial Blood Gas Tidal Volume 285 ml; Peak Inspiratory Pressure 13 cmH2O
[2023-04-19 17:05] LABS: Appearance Urine Clear (Clear); Bacteria Urine None Seen /hpf; Bilirubin Urine Negative (Negative); Blood Urine Trace (Negative); Color Urine Yellow (Yellow); Glucose Urine UA Negative (Negative); Hyaline Casts Urine Present /lpf; Ketones Urine Negative (Negative); Leukocyte Esterase Ur Negative LEU/UL (Negative); Nitrate Urine Negative (Negative); Protein Urine 1+ mg/dL (Negative); RBC Urine 0-2 /hpf (0-2); Specific Grav Ur 1.009 (1.001-1.035); Squamous Epithelial Cell Urine None seen /hpf (Few); Urobilinogen Urine 0.2 mg/dL (<2.0); WBC Urine 0-5 /hpf; pH Urine 5.5 (5.0-9.0)
[2023-04-19 17:07] LABS: Add Urine Microscopic? YES
[2023-04-19 17:08] LABS: Amphetamine Screen Urine Negative (Negative); Barbiturate Screen Urine Negative (Negative); Benzodiazepines Screen Urine Negative (Negative); Cannabinoid Screen Urine Positive (Negative); Cocaine Screen Urine Negative (Negative); Methadone Screen Urine Negative (Negative); Opiate Screen Urine Negative (Negative); Phencyclidine Screen Urine Negative (Negative)
[2023-04-19 17:11] LABS: Influenza A QL RT-PCR Negative (Negative); Influenza B QL RT-PCR Negative (Negative); RSV RNA, RT-PCR Negative (Negative); SARS-CoV-2 RNA PCR Negative (Negative)
[2023-04-19] MEDS: FENTANYL 2,500MCG/NS250ML(*CRX 2,500 MCG/250 ML BAG IV CONT (17:15)
[2023-04-19 17:24] LABS: Band Neutrophils Percent 2 % (0-6); Lymphocytes Absolute Manual 4.42 K/mm3 (1.1-4.5); Monocytes Absolute Manual 1.87 K/mm3 (0.1-0.90); Monocytes Percent Manual 11 % (3-9); Neutrophils Absolute Manual 10.71 K/mm3 (1.7-7.2); Neutrophils Percent Manual 61 % (46-73); Total Cells Counted 100
[2023-04-19 17:25] LABS: Hypochromasia 1+ (NORMAL); Platelet Estimate Increased (Adequate); Schistocytes None Seen (NORMAL)
[2023-04-19 17:26] LABS: Anisocytosis 2+ (NORMAL)
[2023-04-19 17:57] LABS: Magnesium 2.3 mg/dL (1.6-2.3)
[2023-04-19] MEDS: fentaNYL CITRATE INJ (*CRX) 100 MCG/2 ML VIAL IV PUSH (18:04)
[2023-04-19] MEDS: MIDAZOLAM HCL (*CRX) 2 MG/2 ML VIAL 5 MG IV PUSH (18:04)
--- NOTE | 2023-04-19 18:21 | PC.NURSE ---
pt to the ED via [facility] to be seen for an intentional overdose. pt told ems that they took 59 prescription pills consisting of buspirone 10mg, hydroxyzine HCL 50mg, and quetiapine 100mg around 1440. pt told ems that they began vomiting and called 911. an IV was unsuccessfully attempted in ems so no iv fluids or medications were given, ems states vitals were wnl. upon arrival to ED @1515, the pt was moved over to the stretcher, [facility] with only complaints of nausea. At 1519 while receiving report from ems and getting the pt hooked up to the monitor the pt began having tonic clonic seizure-like activity. pt was immediately turned to their left side and secretions were being suctioned. while trying to achieve IV access, 2mg on Ativan IM was given in the left deltoid per MD verbal order. pt was still having seizure-like activity and MD requested RSI kit for intubation. 20G IV was initiated in the right hand. At 1528 Etomidate 20mg and Succinylcholine 100mg were given. Successful intubation at 1530, 7.5 tube, 24 at the lip. Vitals at 1530 were hr122 and bp 71/36. After intubation, MD verbal ordered 2L of normal saline on a pressure bag, as well as a temperature marcial and OG tube placement. please see paper chart for vitals from 15:30-16:42. At 1605 versed was started at 1mg/hr IV. At 1620 a 22G IV was placed in the right forearm. pt was still agitated so MD ordered propofol 5mcg/kg/min IV. blood was sent down at 1623. due to agitation and attempting to pull at tube, at 1625 propofol was increased to 10mcg, at 1630 it was increased to 15mcg and soft restraints were applied to wrists, at 1638 increased to 20mcg, at 1647 increased to 25mcg, at 1652 increased to 30mcg, at 1658 increased to 35mcg. At 1659 versed was increased to 2mg/hr. At 1703 propofol was increased to 40mcg and pt was still agitated so MD verbal ordered 5mg versed IV bolus. At 1713 propofol was increased to 45mcg. Pt was still fighting sedation so @1715 MD ordered fentanyl 25mcg/hr IV. at 1725 increased propofol to 50mcg. At 1734 versed was increased to 3mg/hr. pt was still agitated and accidentally disrupted 1st 20G IV in right hand, so that one was removed and another 20G IV was placed in the right hand. At 1745 fentanyl was increased to 50mcg/hr per MD verbal order read back. At 1800 the pt began to stop fighting sedation. pt currently has versed infusing at 3ml/hr IV in the 20G iv in the right hand. propofol is being infused at 50mcg/kg/min IV and fentanyl 50mcg/hr IV in the right 20G forearm IV. pt vitals past 1645 can be seen in digital chart. pt currently is not fighting sedation, has a strong radial pulse, pupils PERRLA, and skin is pink, warm, and dry.
[2023-04-19] MEDS: KCL 20 MEQ/SW 100 ML 100 ML 50 MEQ IVPB (19:06)
--- NOTE | 2023-04-19 20:02 | PC.NURSE ---
pt to CT @[id number]
[2023-04-19] MEDS: SODIUM CHLORIDE 0.9% IV 1,000 ML 150 ML IV CONT (20:10)
--- NOTE | 2023-04-19 21:25 | PC.NURSE ---
Zuleyma from [facility] transfer center called @1630 for pt update. Zuleyma called again @0152 for another update and stated they will call back tomorrow to update us on transfer.
--- NOTE | 2023-04-19 23:15 | PC.NURSE ---
pt care and report given to BENJAMIN Noble. all questions answered.
[2023-04-19 23:22] LABS: Anion Gap 8 mmol/L (8-16); Blood Urea Nitrogen 14 mg/dL (7-17); Calcium 7.8 mg/dL (8.4-10.2); Carbon Dioxide 20 mmol/L (22-30); Chloride 110 mmol/L (98-107); Estimated CRCL calculation 65 ml/min; Estimated Glomerular Filt Rate > 60; Glucose 70 mg/dL (65-110); Potassium 3.3 mmol/L (3.4-5.0); Sodium 138 mmol/L (137-145)
--- NOTE | 2023-04-19 23:24 | PC.NURSE ---
Pt accepted [facility], room 475-9. RN to RN report call to [phone], Dr. Hancock. [facility] request CD made for them and sent with a patient.
[2023-04-19 23:38] LABS: Alveolar/Arterial O2 Gradient 20.5 mmHg; Base Excess ABG -6.1 mEq/l (+/-2.0); Device VENTILATOR; Fractional Inspired Oxygen 30 %; HCO3 ABG 17.8 mEq/l (22.0-26.0); Modified Allen's Test Pass; Oxygen Content ABG 15.8 %vol (16.0-22.0); Oxyhemoglobin 97.6 % THb (90.0-100.0); PCO2 ABG 30.1 mmHg (35.0-45.0); PO2 FiO2 Ratio Arterial Blood 5.27 %; Site Drawn RIGHT RADIAL; Total Hemoglobin 11.3 g/dL (12.0-18.0); pH ABG 7.389 (7.350-7.450)
[2023-04-19 23:39] LABS: Arterial Blood Gas PEEP 5 cmH2O; Arterial Blood Gas Tidal Volume 350 ml; Arterial Blood Gas Vent Mode CMV; Arterial Blood Gas Ventilator rate 12 /MIN
--- NOTE | 2023-04-19 23:44 | PC.NURSE ---
Report given to BENJAMIN Lora at [facility] on Claritza Cox.
[2023-04-20] VITALS (20 sets, daily range): BP systolic 110–121; BP diastolic 75–82; PULSE 83–87; RESP 12; TEMP 36.3–36.4; O2SAT 99–100
--- NOTE | 2023-04-20 01:32 | PC.NURSE ---
Report given to [facility]. Pt transferred to their stretcher with no distress noted. Pt has an OG clamped for transport, remains intubated and on perez box. Pt has a 22g SLIV left forearm, 20g sliv Rt hand, 22g iv infusing propofol, versed, fentanyl, ns at the time of transportation. Pt belongings also given to perez crew and placed on their stretcher under the head of stretcher bed. Pt transferred with no distress at this time.
== END 2023-04-20 02:06 | disposition short-term general hospital (02) ==
PROVIDERS: Emergency Medicine; Emergency Provider Emergency Medicine; PCP Family Medicine
DX: T43.592A Poisoning by other antipsychotics and neuroleptics, intentional self-harm, initial encounter (principal); R56.9 Unspecified convulsions; Z11.52 Encounter for screening for COVID-19; F41.9 Anxiety disorder, unspecified; F32.A Depression, unspecified; R00.0 Tachycardia, unspecified; I45.10 Unspecified right bundle-branch block
CPT/HCPCS: 31500; 36415; 36600; 70450; 80048; 80053; 80307; 81001; 82805; 83735; 84443; 85025; 87637; 93005; 96365; 96366; 96367; 96368; 96375; 99285; J0330; J2060; J2250; J2704; J3010; J3480; J7030

== ENCOUNTER 2024-03-28 03:03 | Emergency (ER) | payer OTHER, SELFPAY ==
--- OUTSIDE RECORDS SUMMARY | 2024-03-28 03:05 | XMS_ITS | Referral Summary ---
Author Organization [facility] Address [address] [place] [address] Care Team Providers Care Lead Loader Name Role Phone Ronel Thornton DO Primary Care Provider [phone] Ronel Thornton DO Unavailable [phone] Source Comments [facility] Affiliates and Associated Physician Practices is amultiple site organization consisting of ambulatory clinics and hospital sitesin [place], [place], [place] and [place]. This disclosure is being madepursuant to the Care Everywhere program and may not contain all information available regarding this patient. Last updated 17.[facility] Encounters Date Type Department Care Team Description 03/05/2024 Orders Only [facility] Family Medicine [address] [place] [id number] Ronel Thornton DO Familial hypercholesterolemia 03/05/2024 Travel 03/05/2024 Telephone [facility] - Family Medicine [address] [place] [id number] Ronel Thornton DO New Med Request 01/15/2024 3:00 PM LITHOGRAPHIC GENERAL WORKER Procedure visit [facility] - DIFFUSER OPERATOR [address] [place] [id number] Nai Jurado MD Encounter for insertion of Mirena IUD from Last 3 Months Allergies No known active allergies Medications * Be aware that medications may not be up to date on this document. Alwaysverify current medications with the patient. Medication Sig Dispensed Refills Start Date End Date Status atorvastatin (Lipitor) 80 MG tabletIndications:Famil ial hypercholesterolemia Take 1 (one) tablet by mouth at bedtime 90 tablet 3 03/05/19 25 Active hydrOXYzine HCl (Atarax) 50 MG tabletIndications:Anxie ty Take 1 (one) tablet by mouth every 6 hours as needed Reasons: Feeling Anxious 40 tablet 04/29/19 24 024 Disconti nued(No Pharm No AVS) melatonin 3 MG tabletIndications:Insom carolynn Take 1 (one) tablet by mouth nightly as needed for Insomnia Reasons: Trouble Sleeping 30 tablet 04/29/19 24 024 Disconti nued(No Pharm No AVS) pantoprazole EC (Protonix) 40 MG tabletIndications:Gastr oesophageal Reflux Disease Take 1 (one) tablet by mouth once daily Reasons: Gastroesophageal Reflux Disease 30 tablet 04/30/19 24 024 Disconti nued(No Pharm No AVS) mirtazapine (Remeron) 15 MG tabletIndications:Major Depressive Disorder Take 1 (one) tablet by mouth at bedtime Reasons: Major Depressive Disorder 30 tablet 04/29/19 24 024 Disconti nued(No Pharm No AVS) gabapentin (Neurontin) 400 MG capsuleIndications:Mood Disorder Take 1 (one) capsule by mouth 2 times daily Reasons: Mood Disorder 60 capsule 04/29/19 24 024 Disconti nued(No Pharm No AVS) lamoTRIgine XR 24hr (LaMICtal XR) 250 MG tablet Take 1 (one) tablet by mouth once daily 90 tablet 2 05/21/19 24 024 Disconti nued(No Pharm No AVS) Active Problems Problem Noted Date Diagnosed Date Familial hypercholesterolemia 10/04/2023 Moderate opioid use disorder 04/28/2023 Cannabis use disorder, moderate, dependence 04/11 PTSD (post-traumatic stress disorder) 04/28/2023 Intentional overdose, initial encounter 04/21/19 24 Superior mesenteric artery syndrome 03/20/2023 Benzodiazepine withdrawal with complication 06/2023 Borderline personality disorder 03/18/2023 Recurrent major depressive disorder, in full rem ission 02/15/2022 Anorexia 02/14/2022 Bulimia nervosa 01/23/2022 Dysmenorrhea 05/24/2020 Assessment & Plan (05/24/2020 2:40 PM CDT): After discussion of options (nsaids, ocps, depoprovera, nexplanon, IUD) to treat dysmenorrhea, explanation of risks and potential benefits, Marlee would like to start OCPs. Emphasized the need to use medication regularly and consistently as directed or the medication may not be effective. Also discussed that hormonal forms of control will not protect against infection. Reminded Marlee that abstinence is the only way to prevent and STIs, and if she is not going to abstain from sexual activity she should always use condoms. Encouraged her to return for any problems and return in 2 months for follow up. Anxiety and depression 01/18/2020 Assessment & Plan (01/08/2021 3:06 PM LITHOGRAPHIC GENERAL WORKER): Assessment: Major depressive disorder, generalized anxiety disorder and substance abuse disorder. Plan: - klonopin and neurontin are all habit forming, concerns they are addictive, plan to discuss exterminator helper goal of weaning as outpatient - must stop all alcohol and MJ - Increased Prozac to 40 - Increased zyprexa to 15 - Melatonin 6mg QHS for sleep - avoid narcotics - taper off zyprexa as outpatient per psychiatry recs Assessment & Plan (01/07/2021 4:50 PM LITHOGRAPHIC GENERAL WORKER): Assessment: Major depressive disorder, generalized anxiety disorder and substance abuse disorder. Plan: - klonopin and neurontin are all habit forming, concerns they are addictive, plan to discuss exterminator helper goal of weaning as outpatient - must stop all alcohol and MJ - Increased Prozac to 40 - Increased zyprexa to 15 - Melatonin 6mg QHS for sleep - avoid narcotics - taper off zyprexa as outpatient per psychiatry recs Assessment & Plan (01/06/2021 5:55 PM LITHOGRAPHIC GENERAL WORKER): Assessment: Major depressive disorder, generalized anxiety disorder and substance abuse disorder. Plan: - klonopin and neurontin are all habit forming, concerns they are addictive, plan to discuss exterminator helper goal of weaning as outpatient - must stop all alcohol and MJ - Increased Prozac to 40 - Increased zyprexa to 15 - Melatonin 6mg QHS for sleep - avoid narcotics - taper off zyprexa as outpatient per psychiatry recs Assessment & Plan (09/29/2020 3:05 PM CDT): Doing fairly well. Encouraged Marlee to discuss her ongoing anxiety sx with her psychiatrist. Continue therapy. Assessment & Plan (08/22/2020 9:53 AM CDT): Improving again with restarting prozac. Assessment & Plan (07/25/2020 6:36 PM CDT): Marlee reports her anxiety and depression has been well controlled when she is able to take all her medication. She is taking klonopin, prozac, and zyprexa. She is following with a therapist and psychiatrist. She has been out of prozac for past 8-9 days due to medication mix up. Plan: -keep appointment with psychiatrist tomorrow to get prozac refilled -f/u in 1 month Assessment & Plan (05/16/2020 12:13 PM CDT): Currently sees psychiatry for management of her anxiety and depression. Today she notes that her symptoms are very well controlled on her current medication regimen, currently taking klonipin, prozac, and zyprexa. Last seen on May 03 and her next scheduled appointment is on May 31. She endorses having an argument with mom about her new boyfriend that she says got out of control from her perspective, but from mom's perspective it was a normal argument, Marlee would likely benefit from speaking with her counselor about healthy arguments. Plan: - Continue with scheduled psych appointment - Defer medication management to psych - Encourage speaking with counselor about healthy arguing Assessment & Plan (04/25/2020 2:25 PM CDT): Currently under good control. Encouraged to keep psychiatry appointment and continue with counseling. Recommended that the first medication to decrease would be the klonipin, then the zypreza and then after a long time could consider the prozac. I would decrease the medications slowly. Assessment & Plan (04/07/2020 6:45 PM LITHOGRAPHIC GENERAL WORKER): Assessment: Hx of major depressive disorder and generalized anxiety disorder. Pt has been seen by psychiatry and psychology, now improved since starting/optimizing zyprexa QHS, clonazepam TID, and prozac QD. Plan: - Prozac 30 mg QD (dose of 30 mg started on 03/09/20, Prozac initially began 02/07) - Zyprexa 5 mg QHS - Klonopin 0.5mg TID Assessment & Plan (04/06/2020 3:54 PM LITHOGRAPHIC GENERAL WORKER): Assessment: Hx of major depressive disorder and generalized anxiety disorder. Pt seen by psychiatry on admission and was started elavil, but continued to have anxiety. Elavil was discontinued due to persistent tachycardia and hypotension. Based on recommendations from psychiatry and adoelscent medicine, she was started on zyprexa QHS, clonazepam TID, and prozac QD. Gabapentin TID and atarax PRN were added to her regimen. Clonazepam was discontinued on 03/17 as she had been gabapentin and it was cross-tolerant. Plan: - Prozac 30 mg QD (dose of 30 mg started on 03/09/20, Prozac initially began 02/07) - Zyprexa 5 mg QHS - Atarax 25 mg TID PRN for anxiety - Klonopin 0.5mg TID Assessment & Plan (04/05/2020 10:49 AM LITHOGRAPHIC GENERAL WORKER): Assessment: Hx of major depressive disorder and generalized anxiety disorder. Pt seen by psychiatry on admission and was started elavil, but continued to have anxiety. Elavil was discontinued due to persistent tachycardia and hypotension. Based on recommendations from psychiatry and adoelscent medicine, she was started on zyprexa QHS, clonazepam TID, and prozac QD. Gabapentin TID and atarax PRN were added to her regimen. Clonazepam was discontinued on 03/17 as she had been gabapentin and it was cross-tolerant. Plan: - Prozac 30 mg QD (dose of 30 mg started on 03/09/20, Prozac initially began 02/07) - Zyprexa 5 mg QHS - Atarax 25 mg TID PRN for anxiety - Klonopin 0.5mg TID Assessment & Plan (04/04/2020 10:23 AM LITHOGRAPHIC GENERAL WORKER): Assessment: Hx of major depressive disorder and generalized anxiety disorder. Pt seen by psychiatry on admission and was started elavil, but continued to have anxiety. Elavil was discontinued due to persistent tachycardia and hypotension. Based on recommendations from psychiatry and adoelscent medicine, she was started on zyprexa QHS, clonazepam TID, and prozac QD. Gabapentin TID and atarax PRN were added to her regimen. Clonazepam was discontinued on 03/17 as she had been gabapentin and it was cross-tolerant. Plan: - Prozac 30 mg QD (dose of 30 mg started on 03/09/20, Prozac initially began 02/07) - Zyprexa 5 mg QHS - Atarax 25 mg TID PRN for anxiety - Klonopin 0.5mg TID Assessment & Plan (04/03/2020 6:30 PM LITHOGRAPHIC GENERAL WORKER): Assessment: Hx of major depressive disorder and generalized anxiety disorder. Pt seen by psychiatry on admission and was started elavil, but continued to have anxiety. Elavil was discontinued due to persistent tachycardia and hypotension. Based on recommendations from psychiatry and adoelscent medicine, she was started on zyprexa QHS, clonazepam TID, and prozac QD. Gabapentin TID and atarax PRN were added to her regimen. Clonazepam was discontinued on 03/17 as she had been gabapentin and it was cross-tolerant.Of note, pt had persistent tachycardia in January, cardiology was consulted for further recommendations. Based on telemetry and lack of cardiac sx such as chest pain, syncope, cardiology cardiac etiology less likely. TSH low and with all other labs were normal (T4, total T3, thyroid antibodies, and thyroid stimulating immunoglobulin). Pheochromocytoma ruled out with negative urine metanephrines and catecholamine. Plan: - Prozac 30 mg QD (dose of 30 mg started on 03/09/20, Prozac initially began 02/07) - Zyprexa 5 mg QHS - Atarax 25 mg TID PRN for anxiety - Klonopin 0.5mg TID Assessment & Plan (04/01/2020 11:15 AM LITHOGRAPHIC GENERAL WORKER): Assessment: Hx of major depressive disorder and generalized anxiety disorder. Pt seen by psychiatry on admission and was started elavil, but continued to have anxiety. Elavil was discontinued due to persistent tachycardia and hypotension. Based on recommendations from psychiatry and adoelscent medicine, she was started on zyprexa QHS, clonazepam TID, and prozac QD. Gabapentin TID and atarax PRN were added to her regimen. Clonazepam was discontinued on 03/17 as she had been gabapentin and it was cross-tolerant.Of note, pt had persistent tachycardia in January, cardiology was consulted for further recommendations. Based on telemetry and lack of cardiac sx such as chest pain, syncope, cardiology cardiac etiology less likely. TSH low and with all other labs were normal (T4, total T3, thyroid antibodies, and thyroid stimulating immunoglobulin). Pheochromocytoma ruled out with negative urine metanephrines and catecholamine. Plan: - Prozac 30 mg QD (dose of 30 mg started on 03/09/20, Prozac initially began 02/07) - Zyprexa 5 mg QHS - Atarax 25 mg TID PRN for anxiety - Klonopin 0.5mg TID (not attempting wean at this time given high anxiety on current dose) Assessment & Plan (03/31/2020 10:07 AM LITHOGRAPHIC GENERAL WORKER): Assessment: Hx of major depressive disorder and generalized anxiety disorder. Pt seen by psychiatry on admission and was started elavil, but continued to have anxiety. Elavil was discontinued due to persistent tachycardia and hypotension. Based on recommendations from psychiatry and adoelscent medicine, she was started on zyprexa QHS, clonazepam TID, and prozac QD. Gabapentin TID and atarax PRN were added to her regimen. Clonazepam was discontinued on 03/17 as she had been gabapentin and it was cross-tolerant.Of note, pt had persistent tachycardia in January, cardiology was consulted for further recommendations. Based on telemetry and lack of cardiac sx such as chest pain, syncope, cardiology cardiac etiology less likely. TSH low and with all other labs were normal (T4, total T3, thyroid antibodies, and thyroid stimulating immunoglobulin). Pheochromocytoma ruled out with negative urine metanephrines and catecholamine. Plan: - Prozac 30 mg QD (dose of 30 mg started on 03/09/20, Prozac initially began 02/07) - Zyprexa 5 mg QHS - Atarax 25 mg TID PRN for anxiety - Klonopin 0.5mg TID (not attempting wean at this time given high anxiety on current dose) Assessment & Plan (03/30/2020 2:24 PM LITHOGRAPHIC GENERAL WORKER): Assessment: Hx of major depressive disorder and generalized anxiety disorder. Pt seen by psychiatry on admission and was started elavil, but continued to have anxiety. Elavil was discontinued due to persistent tachycardia and hypotension. [facility], she was started on zyprexa QHS, clonazepam TID, and prozac QD. Gabapentin TID and atarax PRN were added to her regimen. Clonazepam was discontinued on 03/17 as she had been gabapentin and it was cross-tolerant.Of note, pt had persistent tachycardia in January, cardiology was consulted for further recommendations. Based on telemetry and lack of cardiac sx such as chest pain, syncope, cardiology cardiac etiology less likely. TSH low and with all other labs were normal (T4, total T3, thyroid antibodies, and thyroid stimulating immunoglobulin). Pheochromocytoma ruled out with negative urine metanephrines and catecholamine. Plan: - Prozac 30 mg QD (dose of 30 mg started on 03/09/20, Prozac initially began 02/07) - Zyprexa 5 mg QHS - Atarax 25 mg TID PRN for anxiety - Klonopin 0.5mg TID (not attempting wean at this time given high anxiety on current dose) Assessment & Plan (03/29/2020 6:50 AM LITHOGRAPHIC GENERAL WORKER): Assessment: Hx of major depressive disorder and generalized anxiety disorder. Pt seen by psychiatry on admission and was started elavil, but continued to have anxiety. Elavil was discontinued due to persistent tachycardia and hypotension. Based on recommendations from psychiatry and adoelscent medicine, she was started on zyprexa QHS, clonazepam TID, and prozac QD. Gabapentin TID and atarax PRN were added to her regimen. Clonazepam was discontinued on 03/17 as she had been gabapentin and it was cross-tolerant.Of note, pt had persistent tachycardia in January, cardiology was consulted for further recommendations. Based on telemetry and lack of cardiac sx such as chest pain, syncope, cardiology cardiac etiology less likely. TSH low and with all other labs were normal (T4, total T3, thyroid antibodies, and thyroid stimulating immunoglobulin). Pheochromocytoma ruled out with negative urine metanephrines and catecholamine. Plan: - Prozac 30 mg QD (dose of 30 mg started on 03/09/20, Prozac initially began 02/07) - Zyprexa 5 mg QHS - Atarax 25 mg TID PRN for anxiety - Klonopin 0.5mg TID (not attempting wean at this time given high anxiety on current dose) Assessment & Plan (03/27/2020 10:30 AM LITHOGRAPHIC GENERAL WORKER): Assessment: Hx of major depressive disorder and generalized anxiety disorder. Pt seen by psychiatry on admission and was started elavil, but continued to have anxiety. Elavil was discontinued due to persistent tachycardia and hypotension. Based on recommendations from psychiatry and adoelscent medicine, she was started on zyprexa QHS, clonazepam TID, and prozac QD. Gabapentin TID and atarax PRN were added to her regimen. Clonazepam was discontinued on 03/17 as she had been gabapentin and it was cross-tolerant.Of note, pt had persistent tachycardia in January, cardiology was consulted for further recommendations. Based on telemetry and lack of cardiac sx such as chest pain, syncope, cardiology cardiac etiology less likely. TSH low and with all other labs were normal (T4, total T3, thyroid antibodies, and thyroid stimulating immunoglobulin). Pheochromocytoma ruled out with negative urine metanephrines and catecholamine. Plan: - Prozac 30 mg QD (dose of 30 mg started on 03/09/20, Prozac initially began 02/07) - Zyprexa 5 mg QHS - Atarax 25 mg TID PRN for anxiety - Klonopin 0.5mg TID (not attempting wean at this time given high anxiety on current dose) Assessment & Plan (03/26/2020 11:15 AM LITHOGRAPHIC GENERAL WORKER): Assessment: Hx of major depressive disorder and generalized anxiety disorder. Pt seen by psychiatry on admission and was started elavil, but continued to have anxiety. Elavil was discontinued due to persistent tachycardia and hypotension. Based on recommendations from psychiatry and adoelscent medicine, she was started on zyprexa QHS, clonazepam TID, and prozac QD. Gabapentin TID and atarax PRN were added to her regimen. Clonazepam was discontinued on 03/17 as she had been gabapentin and it was cross-tolerant.Of note, pt had persistent tachycardia in January, cardiology was consulted for further recommendations. Based on telemetry and lack of cardiac sx such as chest pain, syncope, cardiology cardiac etiology less likely. TSH low and with all other labs were normal (T4, total T3, thyroid antibodies, and thyroid stimulating immunoglobulin). Pheochromocytoma ruled out with negative urine metanephrines and catecholamine. Plan: - Prozac 30 mg QD (dose of 30 mg started on 03/09/20, Prozac initially began 02/07) - Zyprexa 5 mg QHS - Atarax 25 mg TID PRN for anxiety - Klonopin 0.5mg TID (not attempting wean at this time given high anxiety on current dose) Assessment & Plan (03/25/2020 8:58 AM LITHOGRAPHIC GENERAL WORKER): Assessment: Hx of major depressive disorder and generalized anxiety disorder. Pt seen by psychiatry on admission and was started elavil, but continued to have anxiety. Elavil was discontinued due to persistent tachycardia and hypotension. Based on recommendations from psychiatry and adoelscent medicine, she was started on zyprexa QHS, clonazepam TID, and prozac QD. Gabapentin TID and atarax PRN were added to her regimen. Clonazepam was discontinued on 03/17 as she had been gabapentin and it was cross-tolerant.Of note, pt had persistent tachycardia in January, cardiology was consulted for further recommendations. Based on telemetry and lack of cardiac sx such as chest pain, syncope, cardiology cardiac etiology less likely. TSH low and with all other labs were normal (T4, total T3, thyroid antibodies, and thyroid stimulating immunoglobulin). Pheochromocytoma ruled out with negative urine metanephrines and catecholamine. Plan: - Prozac 30 mg QD (dose of 30 mg started on 03/09/20, Prozac initially began 02/07) - Zyprexa 5 mg QHS - Atarax 25 mg TID PRN for anxiety - Klonopin 0.5mg TID (not attempting wean at this time given high anxiety on current dose) Assessment & Plan (03/24/2020 6:44 AM LITHOGRAPHIC GENERAL WORKER): Assessment: Hx of major depressive disorder and generalized anxiety disorder. Pt seen by psychiatry on admission and was started elavil, but continued to have anxiety. Elavil was discontinued due to persistent tachycardia and hypotension. Based on recommendations from psychiatry and adoelscent medicine, she was started on zyprexa QHS, clonazepam TID, and prozac QD. Gabapentin TID and atarax PRN were added to her regimen. Clonazepam was discontinued on 03/17 as she had been gabapentin and it was cross-tolerant.Of note, pt had persistent tachycardia in January, cardiology was consulted for further recommendations. Based on telemetry and lack of cardiac sx such as chest pain, syncope, cardiology cardiac etiology less likely. TSH low and with all other labs were normal (T4, total T3, thyroid antibodies, and thyroid stimulating immunoglobulin). Pheochromocytoma ruled out with negative urine metanephrines and catecholamine. Plan: - Prozac 30 mg QD (dose of 30 mg started on 03/09/20, Prozac initially began 02/07) - Zyprexa 5 mg QHS - Atarax 25 mg TID PRN for anxiety - Klonopin 0.5mg TID (not attempting wean at this time given high anxiety on current dose) Assessment & Plan (03/23/2020 12:19 PM LITHOGRAPHIC GENERAL WORKER): Assessment: Hx of major depressive disorder and generalized anxiety disorder. Pt seen by psychiatry on admission and was started elavil, but continued to have anxiety. Elavil was discontinued due to persistent tachycardia and hypotension. Based on recommendations from psychiatry and adoelscent medicine, she was started on zyprexa QHS, clonazepam TID, and prozac QD. Gabapentin TID and atarax PRN were added to her regimen. Clonazepam was discontinued on 03/17 as she had been gabapentin and it was cross-tolerant.Of note, pt had persistent tachycardia in January, cardiology was consulted for further recommendations. Based on telemetry and lack of cardiac sx such as chest pain, syncope, cardiology cardiac etiology less likely. TSH low and with all other labs were normal (T4, total T3, thyroid antibodies, and thyroid stimulating immunoglobulin). Pheochromocytoma ruled out with negative urine metanephrines and catecholamine. Plan: - Prozac 30 mg QD (dose of 30 mg started on 03/09/20) - Zyprexa 5 mg QHS - Atarax 25 mg TID PRN for anxiety - Klonopin 0.5mg TID (not attempting wean at this time given high anxiety on current dose) Assessment & Plan (03/22/2020 10:47 AM LITHOGRAPHIC GENERAL WORKER): Assessment: Hx of major depressive disorder and generalized anxiety disorder. Pt seen by psychiatry on admission and was started elavil, but continued to have anxiety. Elavil was discontinued due to persistent tachycardia and hypotension. [facility], she was started on zyprexa QHS, clonazepam TID, and prozac QD. Gabapentin TID and atarax PRN were added to her regimen. Clonazepam was discontinued on 03/17 as she had been gabapentin and it was cross-tolerant.Of note, pt had persistent tachycardia in January, cardiology was consulted for further recommendations. Based on telemetry and lack of cardiac sx such as chest pain, syncope, cardiology cardiac etiology less likely. TSH low and with all other labs were normal (T4, total T3, thyroid antibodies, and thyroid stimulating immunoglobulin). Pheochromocytoma ruled out with negative urine metanephrines and catecholamine. Plan: - Prozac 30 mg QD - Zyprexa 5 mg QHS - Atarax 25 mg TID PRN for anxiety - Klonopin 0.5mg TID (no wean per Adolescent recommendations) Assessment & Plan (03/21/2020 3:11 PM LITHOGRAPHIC GENERAL WORKER): Assessment: Hx of major depressive disorder and generalized anxiety disorder. Pt seen by psychiatry on admission and was started elavil, but continued to have anxiety. Elavil was discontinued due to persistent tachycardia and hypotension. Based on recommendations from psychiatry and adoelscent medicine, she was started on zyprexa QHS, clonazepam TID, and prozac QD. Gabapentin TID and atarax PRN were added to her regimen. Clonazepam was discontinued on 03/17 as she had been gabapentin and it was cross-tolerant.Of note, pt had persistent tachycardia in January, cardiology was consulted for further recommendations. Based on telemetry and lack of cardiac sx such as chest pain, syncope, cardiology cardiac etiology less likely. TSH low and with all other labs were normal (T4, total T3, thyroid antibodies, and thyroid stimulating immunoglobulin). Pheochromocytoma ruled out with negative urine metanephrines and catecholamine. Plan: - Prozac 30 mg QD - Zyprexa 5 mg QHS - Atarax 25 mg TID PRN for anxiety - Continue Klonopin 0.5mg TID- will attempt wean tomorrow (03/22) by 0.125 mg. Assessment & Plan (03/20/2020 10:31 AM LITHOGRAPHIC GENERAL WORKER): Assessment: Hx of major depressive disorder and generalized anxiety disorder. Pt seen by psychiatry on admission and was started elavil, but continued to have anxiety. Elavil was discontinued due to persistent tachycardia and hypotension. Based on recommendations from psychiatry and adoelscent medicine, she was started on zyprexa QHS, clonazepam TID, and prozac QD. Gabapentin TID and atarax PRN were added to her regimen. Clonazepam was discontinued on 03/17 as she had been gabapentin and it was cross-tolerant.Of note, pt had persistent tachycardia in January, cardiology was consulted for further recommendations. Based on telemetry and lack of cardiac sx such as chest pain, syncope, cardiology cardiac etiology less likely. TSH low and with all other labs were normal (T4, total T3, thyroid antibodies, and thyroid stimulating immunoglobulin). Pheochromocytoma ruled out with negative urine metanephrines and catecholamine. Plan: - Prozac 30 mg QD - Zyprexa 5 mg QHS - Atarax 25 mg TID PRN for anxiety - Start Klonopin 0.5mg TID- her tachycardia and increased anxiety may be a withdrawal response from abrupt discontinuation. Will attempt weaning tomorrow 03/21. Assessment & Plan (03/19/2020 10:38 AM LITHOGRAPHIC GENERAL WORKER): Assessment: Hx of major depressive disorder and generalized anxiety disorder. Pt seen by psychiatry on admission and was started elavil, but continued to have anxiety. Elavil was discontinued due to persistent tachycardia and hypotension. Based on recommendations from psychiatry and adoelscent medicine, she was started on zyprexa QHS, clonazepam TID, and prozac QD. Gabapentin TID and atarax PRN were added to her regimen. Clonazepam was discontinued on 03/17 as she had been gabapentin and it was cross-tolerant.Of note, pt had persistent tachycardia in January, cardiology was consulted for further recommendations. Based on telemetry and lack of cardiac sx such as chest pain, syncope, cardiology cardiac etiology less likely. TSH low and with all other labs were normal (T4, total T3, thyroid antibodies, and thyroid stimulating immunoglobulin). Pheochromocytoma ruled out with negative urine metanephrines and catecholamine. Plan: - Prozac 30 mg QD - Zyprexa 5 mg QHS - Atarax 25 mg TID PRN for anxiety - Will trial PRN dose of Klonopin if continues to have significant tachycardia and HTN as may be sign of withdrawal Assessment & Plan (03/18/2020 12:58 PM LITHOGRAPHIC GENERAL WORKER): Assessment: Hx of major depressive disorder and generalized anxiety disorder. Pt seen by psychiatry on admission and was started elavil, but continued to have anxiety. Elavil was discontinued due to persistent tachycardia and hypotension. Based on recommendations from psychiatry and adoelscent medicine, she was started on zyprexa QHS, clonazepam TID, and prozac QD. Atarax was added to her regimen. Pt had persistent tachycardia in January, cardiology was consulted for further recommendations. Based on telemetry and lack of cardiac sx such as chest pain, syncope, cardiology cardiac etiology less likely. TSH low and with all other labs were normal (T4, total T3, thyroid antibodies, and thyroid stimulating immunoglobulin). Pheochromocytoma ruled out with negative urine metanephrines and catecholamine. Plan: - Prozac 30 mg QD - Clonazepam 1.0 mg TID discontinued - Zyprexa 5 mg QHS - Atarax 25 mg TID PRN for anxiety Assessment & Plan (03/17/2020 10:33 AM LITHOGRAPHIC GENERAL WORKER): Assessment: Hx of major depressive disorder and generalized anxiety disorder. Pt seen by psychiatry on admission and was started elavil, but continued to have anxiety. Elavil was discontinued due to persistent tachycardia and hypotension. Based on recommendations from psychiatry and adoelscent medicine, she was started on zyprexa QHS, clonazepam TID, and prozac QD. Atarax was added to her regimen. Pt had persistent tachycardia in January, cardiology was consulted for further recommendations. Based on telemetry and lack of cardiac sx such as chest pain, syncope, cardiology cardiac etiology less likely. TSH low and with all other labs were normal (T4, total T3, thyroid antibodies, and thyroid stimulating immunoglobulin). Pheochromocytoma ruled out with negative urine metanephrines and catecholamine. Plan: - Prozac 30 mg QD - Clonazepam 1.0 mg TID dissolving tablet - Zyprexa 5 mg QHS - Atarax 25 mg TID PRN for anxiety - Consulted psychiatry; recommendations appreciated Assessment & Plan (03/16/2020 2:24 PM LITHO[employer]APHIC GENERAL WORKER): Assessment: Hx of major depressive disorder and generalized anxiety disorder. Pt seen by psychiatry on admission and was started elavil, but continued to have anxiety. Elavil was discontinued due to persistent tachycardia and hypotension. Based on recommendations from psychiatry and adoelscent medicine, she was started on zyprexa QHS, clonazepam TID, and prozac QD. Atarax was added to her regimen. Pt had persistent tachycardia in January, cardiology was consulted for further recommendations. Based on telemetry and lack of cardiac sx such as chest pain, syncope, cardiology cardiac etiology less likely. TSH low and with all other labs were normal (T4, total T3, thyroid antibodies, and thyroid stimulating immunoglobulin). Pheochromocytoma ruled out with negative urine metanephrines and catecholamine. Plan: - Prozac 30 mg QD - Clonazepam 1.0 mg TID dissolving tablet - Zyprexa 5 mg QHS - Atarax 25 mg TID PRN for anxiety - Consult about additional recommendations Assessment & Plan (03/15/2020 11:11 AM L[employer]OGR[employer]IC GENERAL WORKER): Assessment: Hx of major depressive disorder and generalized anxiety disorder. Pt seen by psychiatry on admission and was started elavil, but continued to have anxiety. Elavil was discontinued due to persistent tachycardia and hypotension. Based on recommendations from psychiatry and adoelscent medicine, she was started on zyprexa QHS, clonazepam TID, and prozac QD. Atarax was added to her regimen. Pt had persistent tachycardia in January, cardiology was consulted for further recommendations. Based on telemetry and lack of cardiac sx such as chest pain, syncope, cardiology cardiac etiology less likely. TSH low and with all other labs were normal (T4, total T3, thyroid antibodies, and thyroid stimulating immunoglobulin). Pheochromocytoma ruled out with negative urine metanephrines and catecholamine. Plan: - Prozac 30 mg QD - Clonazepam 1.0 mg TID dissolving tablet - Zyprexa 5 mg QHS - Atarax 25 mg TID PRN for anxiety Assessment & Plan (03/14/2020 6:28 AM L[employer]OGRAPHIC GENERAL WORKER): Assessment: Hx of major depressive disorder and generalized anxiety disorder. Pt seen by psychiatry on admission and was started elavil, but continued to have anxiety. Elavil was discontinued due to persistent tachycardia and hypotension. Based on recommendations from psychiatry and adoelscent medicine, she was started on zyprexa QHS, clonazepam TID, and prozac QD. Atarax was added to her regimen. Pt had persistent tachycardia in January, cardiology was consulted for further recommendations. Based on telemetry and lack of cardiac sx such as chest pain, syncope, cardiology cardiac etiology less likely. TSH low and with all other labs were normal (T4, total T3, thyroid antibodies, and thyroid stimulating immunoglobulin). Pheochromocytoma ruled out with negative urine metanephrines and catecholamine. Plan: - Prozac 30 mg QD - Clonazepam 1.0 mg TID dissolving tablet - Zyprexa 5 mg QHS - Atarax 25 mg TID PRN for anxiety Assessment & Plan (03/13/2020 6:28 AM L[employer]OGRAPHIC GENERAL WORKER): Assessment: Hx of major depressive disorder and generalized anxiety disorder. Pt seen by psychiatry on admission and was started elavil, but continued to have anxiety. Elavil was discontinued due to persistent tachycardia and hypotension. Based on recommendations from psychiatry and adoelscent medicine, she was started on zyprexa QHS, clonazepam TID, and prozac QD. Atarax was added to her regimen. Pt had persistent tachycardia in January, cardiology was consulted for further recommendations. Based on telemetry and lack of cardiac sx such as chest pain, syncope, cardiology cardiac etiology less likely. TSH low and with all other labs were normal (T4, total T3, thyroid antibodies, and thyroid stimulating immunoglobulin). Pheochromocytoma ruled out with negative urine metanephrines and catecholamine. Plan: - Prozac 30 mg QD - Clonazepam 1.0 mg TID dissolving tablet - Zyprexa 5 mg QHS - Atarax 25 mg TID PRN for anxiety Assessment & Plan (03/12/2020 11:35 AM L[employer]OGRAPHIC GENERAL WORKER): Assessment: Hx of major depressive disorder and generalized anxiety disorder. Pt seen by psychiatry on admission and was started elavil, but continued to have anxiety. Elavil was discontinued due to persistent tachycardia and hypotension. Based on recommendations from psychiatry and adoelscent medicine, she was started on zyprexa QHS, clonazepam TID, and prozac QD. Atarax was added to her regimen. Pt had persistent tachycardia in January, cardiology was consulted for further recommendations. Based on telemetry and lack of cardiac sx such as chest pain, syncope, cardiology cardiac etiology less likely. TSH low and with all other labs were normal (T4, total T3, thyroid antibodies, and thyroid stimulating immunoglobulin). Pheochromocytoma ruled out with negative urine metanephrines and catecholamine. Plan: - Prozac 30 mg QD - Clonazepam 1.0 mg TID dissolving tablet - Zyprexa 5 mg QHS - Atarax 25 mg TID PRN for anxiety Assessment & Plan (03/11/2020 12:43 PM L[employer]IC GENERAL WORKER): Assessment: Hx of major depressive disorder and generalized anxiety disorder. Pt seen by psychiatry on admission and was started elavil, but continued to have anxiety. Elavil was discontinued due to persistent tachycardia and hypotension. Based on recommendations from psychiatry and adoelscent medicine, she was started on zyprexa QHS, clonazepam TID, and prozac QD. Atarax was added to her regimen. Pt had persistent tachycardia in January, cardiology was consulted for further recommendations. Based on telemetry and lack of cardiac sx such as chest pain, syncope, cardiology cardiac etiology less likely. TSH low and with all other labs were normal (T4, total T3, thyroid antibodies, and thyroid stimulating immunoglobulin). Pheochromocytoma ruled out with negative urine metanephrines and catecholamine. Plan: - Prozac 30 mg QD - Clonazepam 1.0 mg TID dissolving tablet - Zyprexa 5 mg QHS - Atarax 25 mg TID PRN for anxiety Assessment & Plan (03/10/2020 6:11 AM LITHOGRAPHIC GENERAL WORKER): Assessment: Hx of major depressive disorder and generalized anxiety disorder. Pt seen by psychiatry on admission and was started elavil, but continued to have anxiety. Elavil was discontinued due to persistent tachycardia and hypotension. Based on recommendations from psychiatry and adoelscent medicine, she was started on zyprexa QHS, clonazepam TID, and prozac QD. Atarax was added to her regimen. Pt had persistent tachycardia in January, cardiology was consulted for further recommendations. Based on telemetry and lack of cardiac sx such as chest pain, syncope, cardiology cardiac etiology less likely. TSH low and with all other labs were normal (T4, total T3, thyroid antibodies, and thyroid stimulating immunoglobulin). Pheochromocytoma ruled out with negative urine metanephrines and catecholamine. Plan: - Prozac 30 mg QD - Clonazepam 1.0 mg TID dissolving tablet - Zyprexa 5 mg QHS - Atarax 25 mg TID PRN for anxiety Assessment & Plan (03/09/2020 6:24 AM LITHOGRAPHIC GENERAL WORKER): Assessment: Hx of major depressive disorder and generalized anxiety disorder. Pt seen by psychiatry on admission and was started elavil, but continued to have anxiety. Elavil was discontinued due to persistent tachycardia and hypotension. Based on recommendations from psychiatry and adoelscent medicine, she was started on zyprexa QHS, clonazepam TID, and prozac QD. Atarax was added to her regimen. Pt had persistent tachycardia in January, cardiology was consulted for further recommendations. Based on telemetry and lack of cardiac sx such as chest pain, syncope, cardiology cardiac etiology less likely. TSH low and with all other labs were normal (T4, total T3, thyroid antibodies, and thyroid stimulating immunoglobulin). Pheochromocytoma ruled out with negative urine metanephrines and catecholamine. Plan: - Prozac 30 mg QD - Clonazepam 1.0 mg TID dissolving tablet - Zyprexa 5 mg QHS - Atarax 25 mg TID PRN for anxiety Assessment & Plan (03/08/2020 10:51 AM LITHOGRAPHIC GENERAL WORKER): Assessment: Hx of major depressive disorder and generalized anxiety disorder. Pt seen by psychiatry on admission and was started elavil, but continued to have anxiety. Elavil was discontinued due to persistent tachycardia and hypotension. Based on recommendations from psychiatry and adoelscent medicine, she was started on zyprexa QHS, clonazepam TID, and prozac QD. Atarax was added to her regimen. Pt had persistent tachycardia in January, cardiology was consulted for further recommendations. Based on telemetry and lack of cardiac sx such as chest pain, syncope, cardiology cardiac etiology less likely. TSH low and with all other labs were normal (T4, total T3, thyroid antibodies, and thyroid stimulating immunoglobulin). Pheochromocytoma ruled out with negative urine metanephrines and catecholamine. Plan: - Prozac 20 mg QD -> 30 mg QD - Clonazepam 1.0 mg TID dissolving tablet - Zyprexa 5 mg QHS - Atarax 25 mg TID PRN for anxiety Assessment & Plan (03/07/2020 9:15 AM LITHOGRAPHIC GENERAL WORKER): Assessment: Hx of major depressive disorder and generalized anxiety disorder. Pt seen by psychiatry on admission and was started elavil, but continued to have anxiety. Elavil was discontinued due to persistent tachycardia and hypotension. Based on recommendations from psychiatry and adoelscent medicine, she was started on zyprexa QHS, clonazepam TID, and proazac QD. Due to persistent tachycardia, cardiology was consulted for further recommendations. Based on telemetry and lack of cardiac sx such as chest pain, syncope, cardiology cardiac etiology less likely. TSH low and with all other labs were normal (T4, total T3, thyroid antibodies, and thyroid stimulating immunoglobulin). Pheochromocytoma ruled out with negative urine metanephrines and catecholamine. Plan: - Prozac 20 mg QD - Clonazepam 1.0 mg TID dissolving tablet - Zyprexa 5 mg QHS - Atarax 25 mg TID PRN for anxiety -Follow-up with about any additional recommendations -Develop daily schedule with assistance of child caregiver-Alma Assessment & Plan (03/06/2020 10:09 AM LITHOGRAPHIC GENERAL WORKER): Assessment: Hx of major depressive disorder and generalized anxiety disorder. Pt seen by psychiatry on admission and was started elavil, but continued to have anxiety. Elavil was discontinued due to persistent tachycardia and hypotension. Based on recommendations from psychiatry and adoelscent medicine, she was started on zyprexa QHS, clonazepam TID, and proazac QD. Due to persistent tachycardia, cardiology was consulted for further recommendations. Based on telemetry and lack of cardiac sx such as chest pain, syncope, cardiology cardiac etiology less likely. TSH low and with all other labs were normal (T4, total T3, thyroid antibodies, and thyroid stimulating immunoglobulin). Pheochromocytoma ruled out with negative urine metanephrines and catecholamine. Plan: - Prozac 20 mg QD - Clonazepam 1.0 mg TID dissolving tablet - Zyprexa 5 mg QHS - Atarax 25 mg TID PRN for anxiety Assessment & Plan (03/05/2020 9:56 AM LITHOGRAPHIC GENERAL WORKER): Assessment: Hx of major depressive disorder and generalized anxiety disorder. Pt seen by psychiatry on admission and was started elavil, but continued to have anxiety. Elavil was discontinued due to persistent tachycardia and hypotension. Based on recommendations from psychiatry and adoelscent medicine, she was started on zyprexa QHS, clonazepam TID, and proazac QD. Due to persistent tachycardia, cardiology was consulted for further recommendations. Based on telemetry and lack of cardiac sx such as chest pain, syncope, cardiology cardiac etiology less likely. TSH low and with all other labs were normal (T4, total T3, thyroid antibodies, and thyroid stimulating immunoglobulin). Pheochromocytoma ruled out with negative urine metanephrines and catecholamine. Plan: - Prozac 20 mg QD - Clonazepam 1.0 mg TID dissolving tablet - Zyprexa 5 mg QHS - Atarax 25 mg TID PRN for anxiety Assessment & Plan (03/04/2020 12:58 PM LITHOGRAPHIC GENERAL WORKER): Assessment: Hx of major depressive disorder and generalized anxiety disorder. Pt seen by psychiatry on admission and was started elavil, but continued to have anxiety. Elavil was discontinued due to persistent tachycardia and hypotension. Based on recommendations from psychiatry and adoelscent medicine, she was started on zyprexa QHS, clonazepam TID, and proazac QD. Due to persistent tachycardia, cardiology was consulted for further recommendations. Based on telemetry and lack of cardiac sx such as chest pain, syncope, cardiology cardiac etiology less likely. TSH low and with all other labs were normal (T4, total T3, thyroid antibodies, and thyroid stimulating immunoglobulin). Pheochromocytoma ruled out with negative urine metanephrines and catecholamine. Plan: - Prozac 20 mg QD - Clonazepam 1.0 mg TID dissolving tablet - Zyprexa 5 mg QHS - Atarax 25 mg TID PRN for anxiety Assessment & Plan (03/03/2020 3:16 PM LITHOGRAPHIC GENERAL WORKER): Assessment: Hx of major depressive disorder and generalized anxiety disorder. Pt seen by psychiatry on admission and was started elavil, but continued to have anxiety. Elavil was discontinued due to persistent tachycardia and hypotension. Based on recommendations from psychiatry and adoelscent medicine, she was started on zyprexa QHS, clonazepam TID, and proazac QD. Due to persistent tachycardia, cardiology was consulted for further recommendations. Based on telemetry and lack of cardiac sx such as chest pain, syncope, cardiology cardiac etiology less likely. TSH low and with all other labs were normal (T4, total T3, thyroid antibodies, and thyroid stimulating immunoglobulin). Pheochromocytoma ruled out with negative urine metanephrines and catecholamine. Plan: - Prozac 20 mg QD - Clonazepam wafer TID - Zyprexa 5 mg QHS - Atarax 25 mg TID PRN for anxiety Assessment & Plan (03/01/2020 12:04 PM LITHOGRAPHIC GENERAL WORKER): Assessment: Hx of major depressive disorder and generalized anxiety disorder. Pt seen by psychiatry on admission and was started elavil, but continued to have anxiety. Elavil was discontinued due to persistent tachycardia and hypotension. Based on recommendations from psychiatry and adoelscent medicine, she was started on zyprexa QHS, clonazepam TID, and proazac QD. Due to persistent tachycardia, cardiology was consulted for further recommendations. Based on telemetry and lack of cardiac sx such as chest pain, syncope, cardiology cardiac etiology less likely. TSH low and with all other labs were normal (T4, total T3, thyroid antibodies, and thyroid stimulating immunoglobulin). Pheochromocytoma ruled out with negative urine metanephrines and catecholamine. Plan: - Prozac 15 mg QD -> Prozac 20 mg QD - Clonazepam wafer TID - Zyprexa 2.5 mg tablet QHS -> 5 mg QHS - Atarax 25 mg TID PRN for anxiety Assessment & Plan (02/29/2020 12:53 PM LITHOGRAPHIC GENERAL WORKER): Assessment: Hx of major depressive disorder and generalized anxiety disorder. Pt seen by psychiatry on admission and was started elavil, but continued to have anxiety. Elavil was discontinued due to persistent tachycardia and hypotension. Based on recommendations from psychiatry and adoelscent medicine, she was started on zyprexa QHS, clonazepam TID, and proazac QD. Due to persistent tachycardia, cardiology was consulted for further recommendations. Based on telemetry and lack of cardiac sx such as chest pain, syncope, cardiology cardiac etiology less likely. TSH low and with all other labs were normal (T4, total T3, thyroid antibodies, and thyroid stimulating immunoglobulin). Pheochromocytoma ruled out with negative urine metanephrines and catecholamine. Plan: - Prozac 15 mg QD -> Prozac 20 mg QD - Clonazepam wafer TID - Zyprexa 2.5 mg tablet QHS - Atarax 25 mg TID PRN for anxiety Assessment & Plan (02/28/2020 9:22 AM LITHOGRAPHIC GENERAL WORKER): Assessment: Hx of major depressive disorder and generalized anxiety disorder. Pt seen by psychiatry on admission and was started elavil, but continued to have anxiety. Elavil was discontinued due to persistent tachycardia and hypotension. Based on recommendations from psychiatry and adoelscent medicine, she was started on zyprexa QHS, clonazepam TID, and proazac QD. Due to persistent tachycardia, cardiology was consulted for further recommendations. Based on telemetry and lack of cardiac sx such as chest pain, syncope, cardiology cardiac etiology less likely. TSH low and with all other labs were normal (T4, total T3, thyroid antibodies, and thyroid stimulating immunoglobulin). Pheochromocytoma ruled out with negative urine metanephrines and catecholamine. Plan: - Prozac 15 mg QD - Clonazepam wafer TID - Zyprexa 2.5 mg tablet QHS - Atarax 25 mg TID PRN for anxiety Assessment & Plan (02/27/2020 10:27 AM LITHOGRAPHIC GENERAL WORKER): Assessment: Hx of major depressive disorder and generalized anxiety disorder. Pt seen by psychiatry on admission and was started elavil, but continued to have anxiety. Elavil was discontinued due to persistent tachycardia and hypotension. Based on recommendations from psychiatry and adoelscent medicine, she was started on zyprexa QHS, clonazepam TID, and proazac QD. Due to persistent tachycardia, cardiology was consulted for further recommendations. Based on telemetry and lack of cardiac sx such as chest pain, syncope, cardiology cardiac etiology less likely. TSH low and with all other labs were normal (T4, total T3, thyroid antibodies, and thyroid stimulating immunoglobulin). Pheochromocytoma unlikely, urine metanephrines and catecholamine pending. Plan: - Prozac 15 mg QD - Clonazepam wafer TID - Zyprexa 2.5 mg tablet QHS - atarax 25 mg TID PRN for anxiety - Urine metanephrines and catecholamines negative Assessment & Plan (02/26/2020 11:12 AM LITHOGRAPHIC GENERAL WORKER): Assessment: Hx of major depressive disorder and generalized anxiety disorder. Pt seen by psychiatry on admission and was started elavil, but continued to have anxiety. Elavil was discontinued due to persistent tachycardia and hypotension. Based on recommendations from psychiatry and adoelscent medicine, she was started on zyprexa QHS, clonazepam TID, and proazac QD. Due to persistent tachycardia, cardiology was consulted for further recommendations. Based on telemetry and lack of cardiac sx such as chest pain, syncope, cardiology cardiac etiology less likely. TSH low and with all other labs were normal (T4, total T3, thyroid antibodies, and thyroid stimulating immunoglobulin). Pheochromocytoma unlikely, urine metanephrines and catecholamine pending. Plan: - Prozac 15 mg QD - Clonazepam wafer TID - Zyprexa 2.5 mg tablet QHS - Urine metanephrines and catecholamines pending Assessment & Plan (02/25/2020 9:33 AM LITHOGRAPHIC GENERAL WORKER): Assessment: Hx of major depressive disorder and generalized anxiety disorder. Pt seen by psychiatry on admission and was started elavil, but continued to have anxiety. Elavil was discontinued due to persistent tachycardia and hypotension. Based on recommendations from psychiatry and adoelscent medicine, she was started on zyprexa QHS, clonazepam TID, and proazac QD. Due to persistent tachycardia, cardiology was consulted for further recommendations. Based on telemetry and lack of cardiac sx such as chest pain, syncope, cardiology cardiac etiology less likely. TSH low and with all other labs were normal (T4, total T3, thyroid antibodies, and thyroid stimulating immunoglobulin). Pheochromocytoma unlikely, urine metanephrines and catecholamine pending. Plan: - Prozac 15 mg QD - Clonazepam wafer TID - Zyprexa 2.5 mg tablet QHS - Urine metanephrines and catecholamines pending Assessment & Plan (02/24/2020 6:51 AM LITHOGRAPHIC GENERAL WORKER): Assessment: Hx of major depressive disorder and generalized anxiety disorder. Pt seen by psychiatry on admission and was started elavil, but continued to have anxiety. Elavil was discontinued due to persistent tachycardia and hypotension. Based on recommendations from psychiatry and adoelscent medicine, she was started on zyprexa QHS, clonazepam TID, and proazac QD. Due to persistent tachycardia, cardiology was consulted for further recommendations. Based on telemetry and lack of cardiac sx such as chest pain, syncope, cardiology cardiac etiology less likely. TSH low and with all other labs were normal (T4, total T3, thyroid antibodies, and thyroid stimulating immunoglobulin). Pheochromocytoma unlikely, urine metanephrines and catecholamine pending. Plan: - Prozac 15 mg QD - Clonazapam wafer TID - Zyprexa 2.5 mg tablet QHS - Urine metanephrines and catecholamines pending Assessment & Plan (02/23/2020 10:19 AM LITHOGRAPHIC GENERAL WORKER): Assessment: Hx of major depressive disorder and generalized anxiety disorder. Pt seen by psychiatry on admission and was started elavil, but continued to have anxiety. Elavil was discontinued due to persistent tachycardia and hypotension. Based on recommendations from psychiatry and adoelscent medicine, she was started on zyprexa QHS, clonazepam TID, and proazac QD. Due to persistent tachycardia, cardiology was consulted for further recommendations. Based on telemetry and lack of cardiac sx such as chest pain, syncope, cardiology cardiac etiology less likely. TSH low and with all other labs were normal (T4, total T3, thyroid antibodies, and thyroid stimulating immunoglobulin). Pheochromocytoma unlikely, urine metanephrines and catecholamine pending. Plan: - Prozac 15 mg QD - Clonazapam wafer TID - Zyprexa 2.5 mg tablet QHS - Urine metanephrines and catecholamines pending Assessment & Plan (02/22/2020 11:07 AM LITHOGRAPHIC GENERAL WORKER): Assessment: Hx of major depressive disorder and generalized anxiety disorder. Pt seen by psychiatry on admission and was started elavil, but continued to have anxiety. Elavil was discontinued due to persistent tachycardia and hypotension. Based on recommendations from psychiatry and adoelscent, she was started on zyprexa QHS, clonazepam TID, and proazac QD. Due to persistent tachycardia, cardiology was consulted for further recommendations. Based on telemetry and lack of cardiac sx such as chest pain, syncope, cardiology cardiac etiology less likely. TSH low and normal free T4, possibly subclinical hyperthyroidism; pending thyroid antibodies. Pheochromocytoma unlikely, urine metanephrines and catecholamine pending. Plan: - Urine metanephrines and catecholamines to be collected - Increase proazac:10 mg QD -> 15 mg QD - Clonazapam wafer TID - Zyprexa 2.5 mg tablet QHS Assessment & Plan (02/21/2020 10:54 AM LITHOGRAPHIC GENERAL WORKER): Assessment: History of major depressive disorder and generalized anxiety disorder which are also likely contributing to her ARFID. Seen by psychiatry during this admission who recommended starting elavil and titrating upwards slowly given past sensitivity with SSRIs and panic attacks. Due to continued anxiety despite elavil, psych was consulted again. They recommended stopping elavil due to her persistent tachycardia and hypotension. Based on recommendations from psychiatry and adoelscent, Marlee was started on zyprexa QHS, clonazepam TID, and proazac QD. Due to persistent tachycardia, cardiology was consulted for further recommendations. Based on telemetry and lack of cardiac sx such as chest pain, syncope, cardiology does not believe her tachycardia has a cardiac etiology. TSH low and normal free T4 so possible subclinical hyperthyroidism; Pending Thyroid antibodies. Although pheochromocytoma unlikely will obtain labs to rule out. Plan: - Urine metanephrines and catecholamines to be collected - Monitor tachycardia - Proazac to 10 mg QD - Clonazapam wafer TID - Zyprexa 2.5 mg tablet Assessment & Plan (02/20/2020 11:33 AM LITHOGRAPHIC GENERAL WORKER): Assessment: History of major depressive disorder and generalized anxiety disorder which are also likely contributing to her ARFID. Seen by psychiatry during this admission who recommended starting elavil and titrating upwards slowly given past sensitivity with SSRIs and panic attacks. Due to continued anxiety despite elavil, psych was consulted again. They recommended stopping elavil due to her persistent tachycardia and hypotension. Based on recommendations from psychiatry and adoelscent, Marlee was started on zyprexa QHS, clonazepam TID, and proazac QD. Due to persistent tachycardia, cardiology was consulted for further recommendations. Based on telemetry and lack of cardiac sx such as chest pain, syncope, cardiology does not believe her tachycardia has a cardiac etiology. TSH low and normal free T4 so possible subclinical hyperthyroidism; Pending Thyroid antibodies. Although pheochromocytoma unlikely will obtain labs to rule out. Plan: - Urine metanephrines and catecholamines to be collected - Monitor tachycardia - Proazac to 10 mg QD - Clonazapam wafer TID - Zyprexa 2.5 mg tablet Assessment & Plan (02/19/2020 3:05 PM LITHOGRAPHIC GENERAL WORKER): Assessment: History of major depressive disorder and generalized anxiety disorder which are also likely contributing to her ARFID. Seen by psychiatry during this admission who recommended starting elavil and titrating upwards slowly given past sensitivity with SSRIs and panic attacks. Due to continued anxiety despite elavil, psych was consulted again. They recommended stopping elavil due to her persistent tachycardia and hypotension. Based on recommendations from psychiatry and adoelscent, Marlee was started on zyprexa QHS, clonazepam TID, and proazac QD. Due to persistent tachycardia, cardiology was consulted for further recommendations. Based on telemetry and lack of cardiac sx such as chest pain, syncope, cardiology does not believe her tachycardia has a cardiac etiology. TSH low and normal free T4 so possible subclinical hyperthyroidism. Pending other thyroid studies. Although pheochromocytoma unlikely will obtain labs to rule out. Plan: - Obtain EKG, urine metanephrines and catecholamines per cardiology recs - Monitor tachycardia - Proazac to 10 mg QD - Clonazapam wafer TID - Zyprexa 2.5 mg tablet Assessment & Plan (02/18/2020 10:13 AM LITHOGRAPHIC GENERAL WORKER): Assessment: History of major depressive disorder and generalized anxiety disorder which are also likely contributing to her ARFID. Seen by psychiatry during this admission who recommended starting elavil and titrating upwards slowly given past sensitivity with SSRIs and panic attacks. Due to continued anxiety despite elavil, psych was consulted again. They recommended stopping elavil due to her persistent tachycardia and hypotension. Based on recommendations from psychiatry and adoelscent, Marlee was started on zyprexa QHS, clonazepam TID, and proazac QD. Plan: - Monitor tachycardia - Proazac to 10 mg QD - Clonazapam wafer TID - Zyprexa 2.5 mg tablet Assessment & Plan (02/17/2020 12:26 PM LITHOGRAPHIC GENERAL WORKER): Assessment: History of major depressive disorder and generalized anxiety disorder which are also likely contributing to her ARFID. Seen by psychiatry during this admission who recommended starting elavil and titrating upwards slowly given past sensitivity with SSRIs and panic attacks. Due to continued anxiety despite elavil, psych was consulted again. They recommended stopping elavil due to her persistent tachycardia and hypotension. Based on recommendations from psychiatry and adoelscent, Marlee was started on zyprexa QHS, clonazepam TID, and proazac QD. Plan: - Monitor tachycardia - Proazac to 10 mg QD - Clonazapam wafer TID - Zyprexa 2.5 mg tablet Assessment & Plan (02/16/2020 1:14 PM LITHOGRAPHIC GENERAL WORKER): Assessment: History of major depressive disorder and generalized anxiety disorder which are also likely contributing to her ARFID. Seen by psychiatry during this admission who recommended starting elavil and titrating upwards slowly given past sensitivity with SSRIs and panic attacks. Due to continued anxiety despite elavil, psych was consulted again. They recommended stopping elavil due to her persistent tachycardia and hypotension. Based on recommendations from psychiatry and adoelscent, Marlee was started on zyprexa QHS, clonazepam TID, and proazac QD. Plan: - Monitor tachycardia - Proazac to 10 mg QD - Clonazapam wafer TID - Zyprexa 2.5 mg tablet Assessment & Plan (02/15/2020 12:31 PM LITHOGRAPHIC GENERAL WORKER): Assessment: History of major depressive disorder and generalized anxiety disorder which are also likely contributing to her ARFID. Seen by psychiatry during this admission who recommended starting elavil and titrating upwards slowly given past sensitivity with SSRIs and panic attacks. Due to continued anxiety despite elavil, psych was consulted again. They recommended stopping elavil due to her persistent tachycardia and hypotension. Based on recommendations from psychiatry and adoelscent, Marlee was started on zyprexa QHS, clonazepam TID, and proazac QD. Plan: - Monitor tachycardia - Increasing Proazac to 10 mg QD - Clonazapam wafer TID - Zyprexa 2.5 mg tablet Assessment & Plan (02/14/2020 2:24 PM LITHOGRAPHIC GENERAL WORKER): Assessment: History of major depressive disorder and generalized anxiety disorder which are also likely contributing to her ARFID. Seen by psychiatry during this admission who recommended starting elavil and titrating upwards slowly given past sensitivity with SSRIs and panic attacks. Due to continued anxiety despite elavil, psych was consulted again. They recommended stopping elavil due to her persistent tachycardia and hypotension. Based on recommendations from psychiatry and adoelscent, Marlee was started on zyprexa QHS, clonazepam TID, and proazac QD. Plan: - Monitor tachycardia - Proazac 5 mg QD; will consider increasing on 1/4 per Adolescent recs - Clonazapam wafer TID - Zyprexa 2.5 mg tablet Assessment & Plan (02/13/2020 12:00 PM LITHOGRAPHIC GENERAL WORKER): Assessment: History of major depressive disorder and generalized anxiety disorder which are also likely contributing to her ARFID. Seen by psychiatry during this admission who recommended starting elavil and titrating upwards slowly given past sensitivity with SSRIs and panic attacks. Due to continued anxiety despite elavil, psych was consulted again. They recommended stopping elavil due to her persistent tachycardia and hypotension. Based on recommendations from psychiatry and adoelscent, Marlee was started on zyprexa QHS, clonazepam TID, and proazac QD. Plan: - Monitor tachycardia - Proazac 5 mg QD; will consider increasing on 1/4 per Adolescent recs - Clonazapam wafer TID - Zyprexa 2.5 mg tablet Assessment & Plan (02/12/2020 11:20 AM LITHOGRAPHIC GENERAL WORKER): Assessment: History of major depressive disorder and generalized anxiety disorder which are also likely contributing to her ARFID. Seen by psychiatry during this admission who recommended starting elavil and titrating upwards slowly given past sensitivity with SSRIs and panic attacks. Due to continued anxiety despite elavil, psych was consulted again. They recommended stopping elavil due to her persistent tachycardia and hypotension. Based on recommendations from psychiatry and adoelscent, Marlee was started on zyprexa QHS, clonazepam TID, and proazac QD. Plan: - Monitor tachycardia - Proazac 5 mg QD; will consider increasing on 1/4 per Adolescent recs - Clonazapam wafer TID - Zyprexa 2.5 mg tablet Assessment & Plan (02/11/2020 11:54 AM LITHOGRAPHIC GENERAL WORKER): Assessment: History of major depressive disorder and generalized anxiety disorder which are also likely contributing to her ARFID. Seen by psychiatry during this admission who recommended starting elavil and titrating upwards slowly given past sensitivity with SSRIs and panic attacks. Due to continued anxiety despite elavil, psych was consulted again. They recommended stopping elavil due to her persistent tachycardia and hypotension. Based on recommendations from psychiatry and adoelscent, Marlee was started on zyprexa QHS and clonazepam TID. Plan: - Monitor tachycardia - Clonazapam wafer TID - Zyprexa 2.5 mg tablet Assessment & Plan (02/10/2020 12:09 PM LITHOGRAPHIC GENERAL WORKER): Assessment: History of major depressive disorder and generalized anxiety disorder which are also likely contributing to her ARFID. Seen by psychiatry during this admission who recommended starting elavil and titrating upwards slowly given past sensitivity with SSRIs and panic attacks. Due to continued anxiety despite elavil, psych was consulted again. They recommended stopping elavil due to her persistent tachycardia and hypotension. Based on recommendations from psychiatry and adoelscent, Marlee was started on zyprexa QHS and clonazepam TID. Plan: - Monitor tachycardia - Clonazapam wafer TID - Zyprexa 2.5 mg tablet or IM if does not take tablet Assessment & Plan (02/09/2020 11:50 AM LITHOGRAPHIC GENERAL WORKER): Assessment: History of major depressive disorder and generalized anxiety disorder which are also likely contributing to her ARFID. Seen by psychiatry during this admission who recommended starting elavil and titrating upwards slowly given past sensitivity with SSRIs and panic attacks. Due to continued anxiety despite elavil, psych was consulted again. They recommended stopping elavil due to her persistent tachycardia and hypotension. Based on recommendations from psychiatry and adoelscent, Marlee was started on zyprexa QHS and clonazepam TID. Plan: - Monitor tachycardia and hypotension - Echo today for persistent tachycardia - Clonazapam wafer TID - Zyprexa 2.5 mg tablet or IM if does not take tablet - Stopped atarax due to possible tachycardia 2/2 atarax Assessment & Plan (02/08/2020 12:54 PM LITHOGRAPHIC GENERAL WORKER): Assessment: History of major depressive disorder and generalized anxiety disorder which are also likely contributing to her ARFID. Seen by psychiatry during this admission who recommended starting elavil and titrating upwards slowly given past sensitivity with SSRIs and panic attacks. Due to continued anxiety despite elavil, psych was consulted again. They recommended stopping elavil due to her persistent tachycardia and hypotension. Based on recommendations from psychiatry and adoelscent, Marlee was started on zyprexa QHS and clonazepam TID. Plan: - Monitor tachycardia and hypotension - Clonazapam wafer TID - Zyprexa 2.5 mg tablet or IM if does not take tablet - Stopped atarax due to possible tachycardia 2/2 atarax Assessment & Plan (02/07/2020 11:47 AM LITHOGRAPHIC GENERAL WORKER): Assessment: History of major depressive disorder and generalized anxiety disorder which are also likely contributing to her ARFID. Seen by psychiatry during this admission who recommended starting elavil and titrating upwards slowly given past sensitivity with SSRIs and panic attacks. Due to continued anxiety despite elavil, psych was consulted again. They recommended stopping elavil due to her persistent tachycardia and hypotension. Based on recommendations from psychiatry and adoelscent, Marlee was started on zyprexa QHS and clonazepam TID. Plan: - Monitor tachycardia and hypotension - Clonazapam wafer TID - Zyprexa 2.5 mg tablet or IM if does not take tablet - Stopped atarax due to possible tachycardia 2/2 atarax Assessment & Plan (02/06/2020 8:12 AM LITHOGRAPHIC GENERAL WORKER): Assessment: History of major depressive disorder and generalized anxiety disorder which are also likely contributing to her ARFID. Seen by psychiatry during this admission who recommended starting elavil and titrating upwards slowly given past sensitivity with SSRIs and panic attacks. Due to continued anxiety despite elavil, psych was consulted again. They recommended stopping elavil due to her persistent tachycardia and hypotension. Based on recommendations from psychiatry and adoelscent, Marlee was started on zyprexa QHS and clonazepam TID. Plan: - Monitor tachycardia and hypotension - Clonazapam wafer TID - Zyprexa 2.5 mg tablet or IM if does not take tablet - Stopped atarax due to possible tachycardia 2/2 atarax Assessment & Plan (02/05/2020 9:12 AM LITHOGRAPHIC GENERAL WORKER): Assessment: History of major depressive disorder and generalized anxiety disorder which are also likely contributing to her ARFID. Seen by psychiatry during this admission who recommended starting elavil and titrating upwards slowly given past sensitivity with SSRIs and panic attacks. Due to continued anxiety despite elavil, psych was consulted again. They recommended stopping elavil due to her persistent tachycardia and hypotension. Based on recommendations from psychiatry and adoelscent, Marlee was started on zyprexa QHS and clonazepam TID. Plan: - Monitor tachycardia and hypotension - Clonazapam wafer TID - Zyprexa 2.5 mg tablet or IM if does not take tablet - Stopped atarax due to possible tachycardia 2/2 atarax Assessment & Plan (02/04/2020 12:43 PM LITHOGRAPHIC GENERAL WORKER): Assessment: History of major depressive disorder and generalized anxiety disorder which are also likely contributing to her ARFID. Seen by psychiatry during this admission who recommended starting elavil and titrating upwards slowly given past sensitivity with SSRIs and panic attacks. Due to continued anxiety despite elavil, psych was consulted again. They recommended stopping elavil due to her persistent tachycardia and hypotension. Based on recommendations from psychiatry and adoelscent, Marlee was started on zyprexa QHS and clonazepam TID. Plan: - Monitor tachycardia and hypotension - Clonazapam wafer TID - Zyprexa 2.5 mg tablet or IM if does not take tablet - Stopped atarax due to possible tachycardia 2/2 atarax Assessment & Plan (02/03/2020 2:28 PM LITHOGRAPHIC GENERAL WORKER): Assessment: History of major depressive disorder and generalized anxiety disorder which are also likely contributing to her ARFID. Seen by psychiatry during this admission who recommended starting elavil and titrating upwards slowly given past sensitivity with SSRIs and panic attacks. Due to continued anxiety despite elavil, psych was consulted again. They recommended stopping elavil due to her persistent tachycardia and hypotension. Based on recommendations from psychiatry and adoelscent, Marlee was started on zyprexa QHS and clonazepam TID. Plan: - Monitor tachycardia and hypotension - Clonazapam wafer TID - Zyprexa 2.5 mg tablet or IM if does not take tablet - Stopped atarax due to possible tachycardia 2/2 atarax Assessment & Plan (02/02/2020 4:02 PM LITHOGRAPHIC GENERAL WORKER): Assessment: History of major depressive disorder and generalized anxiety disorder which are also likely contributing to her ARFID. Seen by psychiatry during this admission who recommended starting elavil and titrating upwards slowly given past sensitivity with SSRIs and panic attacks. Due to continued anxiety despite elavil, psych was consulted again. They recommended stopping elavil due to her persistent tachycardia and hypotension. Based on recommendations from psychiatry and adoelscent, Marlee was started on zyprexa QHS and clonazepam TID. Plan: - Monitor tachycardia and hypotension - Clonazapam wafer TID - Zyprexa 2.5 mg tablet or IM if does not take tablet - Stopped atarax due to possible tachycardia 2/2 atarax Assessment & Plan (02/01/2020 12:12 PM LITHOGRAPHIC GENERAL WORKER): Assessment: History of major depressive disorder and generalized anxiety disorder which are also likely contributing to her ARFID. Seen by psychiatry during this admission who recommended starting elavil and titrating upwards slowly given past sensitivity with SSRIs and panic attacks. Due to continued anxiety despite elavil, psych was consulted again. They recommended stopping elavil due to her persistent tachycardia and hypotension. Based on recommendations from psychiatry and adoelscent, Marlee was started on zyprexa QHS and clonazepam TID. Plan: - Monitor tachycardia and hypotension - Periactin adjusted to 4 mg w/ breakfast and lunch, 8 mg w/ dinner - Clonazapam wafer TID - Zyprexa 2.5 mg tablet or IM if does not take tablet - Stopped atarax due to possible tachycardia 2/2 atarax Assessment & Plan (01/31/2020 1:04 PM LITHOGRAPHIC GENERAL WORKER): Assessment: History of major depressive disorder and generalized anxiety disorder which are also likely contributing to her ARFID. Seen by psychiatry during this admission who recommended starting elavil and titrating upwards slowly given past sensitivity with SSRIs and panic attacks. Due to continued anxiety despite elavil, psych was consulted again. They recommended stopping elavil due to her persistent tachycardia and hypotension. Psych said to re-consulted and saw Marlee again today (01/28). Plan: - Monitor tachycardia and hypotension - Periactin adjusted to 4 mg w/ breakfast and lunch, 8 mg w/ dinner - Stopped atarax due to possible tachycardia 2/2 atarax Assessment & Plan (01/30/2020 10:30 AM LITHOGRAPHIC GENERAL WORKER): Assessment: History of major depressive disorder and generalized anxiety disorder which are also likely contributing to her ARFID. Seen by psychiatry during this admission who recommended starting elavil and titrating upwards slowly given past sensitivity with SSRIs and panic attacks. Due to continued anxiety despite elavil, psych was consulted again. They recommended stopping elavil due to her persistent tachycardia and hypotension. Psych said to re-consulted and saw Marlee again today (01/28). Plan: - Monitor tachycardia and hypotension - Periactin adjusted to 4 mg w/ breakfast and lunch, 8 mg w/ dinner - Stopped atarax due to possible tachycardia 2/2 atarax Assessment & Plan (01/29/2020 9:40 PM LITHOGRAPHIC GENERAL WORKER): Assessment: History of major depressive disorder and generalized anxiety disorder which are also likely contributing to her ARFID. Seen by psychiatry during this admission who recommended starting elavil and titrating upwards slowly given past sensitivity with SSRIs and panic attacks. Due to continued anxiety despite elavil, psych was consulted again. They recommended stopping elavil due to her persistent tachycardia and hypotension. Psych said to re-consulted and saw Marlee again today (01/28). Plan: - Monitor tachycardia and hypotension - Periactin adjusted to 4 mg w/ breakfast and lunch, 8 mg w/ dinner - Stopped atarax due to possible tachycardia 2/2 atarax Assessment & Plan (01/28/2020 11:59 AM LITHOGRAPHIC GENERAL WORKER): Assessment: History of major depressive disorder and generalized anxiety disorder which are also likely contributing to her ARFID. Seen by psychiatry during this admission who recommended starting elavil and titrating upwards slowly given past sensitivity with SSRIs and panic attacks. Due to continued anxiety despite elavil, psych was consulted again. They recommended stopping elavil due to her persistent tachycardia and hypotension. Psych said to re-consult when her tachycardia and hypotension have resolved. Plan: - Monitor tachycardia and hypotension - Will reconsult psych when tachycardia and hypotension resolved - Periactin adjusted to 4 mg w/ breakfast and dinner, 8 mg w/ lunch Assessment & Plan (01/27/2020 3:57 PM LITHOGRAPHIC GENERAL WORKER): Assessment: History of major depressive disorder and generalized anxiety disorder which are also likely contributing to her ARFID. Seen by psychiatry during this admission who recommended starting elavil and titrating upwards slowly given past sensitivity with SSRIs and panic attacks. Due to continued anxiety despite elavil, psych was consulted again. They recommended stopping elavil due to her persistent tachycardia and hypotension. Psych said to re-consult when her tachycardia and hypotension have resolved. Plan: - Monitor tachycardia and hypotension - Will reconsult psych when tachycardia and hypotension resolved - Periactin adjusted to 4 mg w/ breakfast and dinner, 8 mg w/ lunch Assessment & Plan (01/26/2020 6:01 PM LITHOGRAPHIC GENERAL WORKER): Assessment: History of major depressive disorder and generalized anxiety disorder which are also likely contributing to her ARFID. Seen by psychiatry during this admission who recommended starting elavil and titrating upwards slowly given past sensitivity with SSRIs and panic attacks. Due to continued anxiety despite elavil, psych was consulted again. They recommended stopping elavil due to her persistent tachycardia and hypotension. Psych said to re-consult when her tachycardia and hypotension have resolved. Additionally if tachycardia is still persistent to taper back periactin and atarax. Plan: - Monitor tachycardia and hypotension - Will reconsult psych when tachycardia and hypotension resolved - If tachycardia and hypotension persistent, then will consider tapering back periactin and atarax Assessment & Plan (01/25/2020 2:56 PM LITHOGRAPHIC GENERAL WORKER): Assessment: History of major depressive disorder and generalized anxiety disorder which are also likely contributing to her ARFID. Seen by psychiatry during this admission who recommended started elavil and titrating upwards slowly given past sensitivity with SSRIs and panic attacks. Plan: - Elavil 10 mg PO qhs Increase by the following as tolerated: - 20 mg po qhs - 30 mg po qhs x 10 d (02/02/20) - 50 mg po qhs x 10 d (02/12/20) - 75 mg po qhs (02/22/20) - Reconsulted psychiatry today (01/24) and requested they reassess Marlee and give recommendations on other options for meds. She is still very anxious and having issues with taking PO. Assessment & Plan (01/24/2020 8:11 AM LITHOGRAPHIC GENERAL WORKER): Assessment: History of major depressive disorder and generalized anxiety disorder which are also likely contributing to her ARFID. Seen by psychiatry during this admission who recommended started elavil and titrating upwards slowly given past sensitivity with SSRIs and panic attacks. Plan: - Elavil 10 mg PO qhs Increase by the following as tolerated: - 20 mg po qhs - 30 mg po qhs x 10 d (02/02/20) - 50 mg po qhs x 10 d (02/12/20) - 75 mg po qhs (02/22/20) Assessment & Plan (01/23/2020 7:09 AM LITHOGRAPHIC GENERAL WORKER): Assessment: History of major depressive disorder and generalized anxiety disorder which are also likely contributing to her ARFID. Seen by psychiatry during this admission who recommended started elavil and titrating upwards slowly given past sensitivity with SSRIs and panic attacks. Plan: - Elavil 10 mg PO qhs Increase by the following as tolerated: - 20 mg po qhs x 10 d (starting today, 01/23/20) - 30 mg po qhs x 10 d (02/02/20) - 50 mg po qhs x 10 d (02/12/20) - 75 mg po qhs (02/22/20) Assessment & Plan (01/22/2020 7:52 AM LITHOGRAPHIC GENERAL WORKER): Assessment: History of major depressive disorder and generalized anxiety disorder which are also likely contributing to her ARFID. Seen by psychiatry during this admission who recommended started elavil and titrating upwards slowly given past sensitivity with SSRIs and panic attacks. Plan: - Elavil 10 mg PO qhs Increase by the following as tolerated: - 20 mg po qhs x 10 d (01/23/20) - 30 mg po qhs x 10 d (02/02/20) - 50 mg po qhs x 10 d (02/12/20) - 75 mg po qhs (02/22/20) Assessment & Plan (01/21/2020 7:40 AM LITHOGRAPHIC GENERAL WORKER): Assessment: History of major depressive disorder and generalized anxiety disorder which are also likely contributing to her ARFID. Seen by psychiatry during this admission who recommended started elavil and titrating upwards slowly given past sensitivity with SSRIs and panic attacks. Plan: - Elavil 10 mg PO qhs Increase by the following as tolerated: - 20 mg po qhs x 10 d (01/23/20) - 30 mg po qhs x 10 d (02/02/20) - 50 mg po qhs x 10 d (02/12/20) - 75 mg po qhs (02/22/20) Assessment & Plan (01/20/2020 7:36 AM LITHOGRAPHIC GENERAL WORKER): Assessment: History of major depressive disorder and generalized anxiety disorder which are also likely contributing to her ARFID. Seen by psychiatry during this admission who recommended started elavil and titrating upwards slowly given past sensitivity with SSRIs and panic attacks. Plan: - Elavil 10 mg PO qhs Increase by the following as tolerated: - 20 mg po qhs x 10 d (01/23/20) - 30 mg po qhs x 10 d (02/02/20) - 50 mg po qhs x 10 d (02/12/20) - 75 mg po qhs (02/22/20) Assessment & Plan (01/19/2020 7:22 AM LITHOGRAPHIC GENERAL WORKER): Assessment: History of major depressive disorder and generalized anxiety disorder which are also likely contributing to her ARFID. Seen by psychiatry during this admission who recommended started elavil and titrating upwards slowly given past sensitivity with SSRIs and panic attacks. Plan: - Elavil 10 mg PO qhs Increase by the following as tolerated: - 20 mg po qhs x 10 d (01/23/20) - 30 mg po qhs x 10 d (02/02/20) - 50 mg po qhs x 10 d (02/12/20) - 75 mg po qhs (02/22/20) Assessment & Plan (01/18/2020 4:35 PM LITHOGRAPHIC GENERAL WORKER): Assessment: History of major depressive disorder and generalized anxiety disorder which are also likely contributing to her ARFID. Seen by psychiatry during this admission who recommended started elavil and titrating upwards slowly given past sensitivity with SSRIs and panic attacks. Plan: - Elavil 10 mg PO qhs Increase by the following as tolerated: - 20 mg po qhs x 10 d (01/23/20) - 30 mg po qhs x 10 d (02/02/20) - 50 mg po qhs x 10 d (02/12/20) - 75 mg po qhs (02/22/20) Avoidant-restrictive food intake disorder (ARFID ) 01/12/2020 Assessment & Plan (08/10/2021 12:17 PM CDT): Assessment: Patient is an 20 year old female with history of anxiety, depression, cannabis use disorder, bulimia, and avoidant-restrictive food intake disorder (ARFID) who was admitted for a 4-day history of abdominal pain and emesis. Additionally, she has lost 10 lbs over the past 3 months, though it is unlcear from history if this was intentional or not; she reports that she's been motivated to lose weight because of her family, but she also endorses poor appetite from recurrent nausea and abdominal pain. Her lab-work is notable for significant LFT and lipase elevation. Because of this mixed clinical picture, it is challenging to determine if her weight loss and abdominal pain are related to her eating disorder, to an organic gastrointestinal disorder, or to both. Of note, she was admitted about 6 months ago with a very similar presentation; at that time, it was recommended that she take part in the ED protocol, but this was not completed due to her refusal to participate. Plan: - Recommend intensive outpatient feeding therapy after medical stabilization in the hospital - Recommend inpatient evaluation by gastroenterology Assessment & Plan (05/08/2021 11:42 AM CDT): Marlee Chavez is a 20 year old female with past medical history significant for ARFID. Weight up 16 lbs from last visit. Reynaldo states she has been doing well. States Gabapentin is helpful for upset stomach. Marlee says she stopped using Atarax a long time ago, but doesn't remember why. Endorses abdominal pain associated with anxiety and food, otherwise, well controlled. Started [employer] 3-4 weeks ago, and states she has anxiety when she interacts with people. Her Prozac was recently increased from 40 mg to 60 mg a few days ago by her psychiatrist. She is trying to get a therapist. Vomited once due to anxiety. Denies dizziness, nausea, and vomiting. Plan: - Refilled gabapentin, periactin - Restarted Atarax 10 mg TID, before meals - Recommended Gabapentin 300 mg BID, but if not working, may continue taking TID - Get established with therapist - RTC in 2 months Assessment & Plan (11/11/2020 6:03 PM CDT): Over all doing well. Vomiting may be secondary to stopping medication vs acute viral infection. Will restart neurontin. If not improved in 2-3 days, restart periactin. Call if sx have not improved with restarting medications. Follow up in 2 months if doing well and vomiting and abd pain resolve in 2-3 days. Assessment & Plan (09/29/2020 3:06 PM CDT): Doing very well with her weight and nutrition. Will continue periactin. Assessment & Plan (08/23/2020 6:24 PM CDT): Doing better again now that she is back on prozac. Will continue current meds. Marlee will continue to follow with therapist and psychiatrist. Assessment & Plan (08/22/2020 9:53 AM CDT): Improved now that she is back on her medications. Would like to see her gain weight between now and next visit. Continue therapy and follow up with psychiatrist (Dr. Apodaca). Assessment & Plan (07/25/2020 6:39 PM CDT): Prior to Marlee having her abdominal pain, Marlee was eating well per mother's report. She stopped taking her periactin as described in the HPI section. Plan: -f/u in 1 month -restart periactin BID (prescribed today) Assessment & Plan (05/24/2020 2:40 PM CDT): Since her last visit she has demonstrated good interval weight gain and endorses eating well. Her BMI and Wt are within normal ranges today. She does endorses falling behind on her water intake though and would prefer gatorade to the salt tablets due to taste. Overall she has improved significantly from an eating and weight gain standpoint and would likely be able to decrease her periactin dose. Plan: - Reduce periactin to once in the AM and once in the PM, after one month may decrease to once daily - Follow up in 2 months Assessment & Plan (04/25/2020 2:27 PM CDT): Continues to struggle with volume of food. Met with Carin Pennington RD to adjust meal plan. Will decrease gatorade, try smaller more frequent meals. Restart gabapentin to see if it helps with abd pain. Wt and BMI today are in the normal range. 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 Is tolerating meals fairly well. Weight is 46.4 kg. Is motivated to be discharged to home. Continuing to work on discharge planning including outpatient follow up. Reynaldo is excited to go home today. Plan: - daily weight, continuous CR monitoring, fall precautions, daily orthostatic vitals - strict I/Os - Diet: 2500 kcal + 8 cups + 3 Gatorades, meal replacement with ensure - Continue medications - Clonazepam 0.5mg TID - Periactin 4 mg BID with breakfast and dinner, 8 mg with lunch - Nexium 20 mg BID - Prozac 30 mg daily - Lactulose 20 g daily - Melatonin qhs prn - Multivitamin daily - Zyprexa 5 mg QHS - Miralax 17g daily - NaCl 1g TID - Vitamin D 1000 units daily - F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 Is tolerating meals fairly well. Weight is 47 kg. Is motivated to be discharged to home. Continuing to work on discharge planning including outpatient follow up. Plan: - daily weight, continuous CR monitoring, fall precautions, daily orthostatic vitals - strict I/Os - Diet: 2500 kcal + 8 cups + 3 Gatorades, meal replacement with ensure - Continue medications - Clonazepam 0.5mg TID - Periactin 4 mg BID with breakfast and dinner, 8 mg with lunch - Nexium 20 mg BID - Prozac 30 mg daily - Lactulose 20 g daily - Melatonin qhs prn - Multivitamin daily - Zyprexa 5 mg QHS - Miralax 17g daily - NaCl 1g TID - Vitamin D 1000 units daily - F/U with [facility]illespie [facility] on 04/18 at 1:00pm - Continue PT Assessment & Plan (04/07/2020 6:44 PM LITHOGRAPHIC GENERAL WORKER): Assessment: Marlee is a 19 year old with history of constipation, anxiety, and depression admitted for severe malnutrition, dehydration and functional pain with restrictive eating and emesis related to anxiety. She has had prolonged hospitalization due to difficulties with refeeding and prior CT scan (01/28/20) concerning for possible SMA syndrome and Nutcracker syndrome, but now clinically improving and approaching discharge. Plan: FEN/GI: now tolerating PO meals and oral replacement, off TPN and overnight feeds - Meals: continue 2500 kcal + 8 cups + 4 Gatorade, calories decreased to [address] to promote success with meals - Replace all uneaten meals and snacks with oral Ensure - Nexium 20 mg BID, Vit D; Periactin 4 mg with breakfast and 8 mg with dinner - Bowel regimen- miralax - Daily weights (goal gain 200-300 g/day) - CR monitors, VS q8hr, strict I/Os, daily orthostatics - Continue incentive chart with multidisciplinary team - planned discharge 04/08 with outpatient follow up with adolescent medicine on 04/18, [facility] on 05/02, and and scheduling Psych intake visit SOCIAL: - General medicine team spoke with and updated mother on 04/06 LABS: daily urine spec gravity, BMP/Mg/Phos Q / Assessment & Plan (04/06/2020 6:45 PM LITHOGRAPHIC GENERAL WORKER): Assessment: Marlee is a 19 year old with history of constipation, anxiety, and depression admitted for dehydration and functional pain with restrictive eating related to anxiety. she has had prolonged hospitalization due to difficulties with refeeding and prior CT scan (01/28/20) concerning for possible SMA syndrome and Nutcracker syndrome. Multiple NG/ND/NJ tubes placed throughout admission due to ongoing emesis and enteral tube dislodgement, upper GI series (03/09) with no concern for obstruction, brain MRI (03/11) did not demonstrate any other neurological causes of her nausea/emesis, now thought to be intentional/psychogenic emesis. Marlee was restarted on KITTY protocol on 03/16 and is now improving, continues to work on increasing her caloric intake. Plan: FEN/GI: NJ tube placed 02/02 and removed on 02/28/20 due to it clogging; ND (but still past SMA) placed on 03/02/2020. ND displaced on 03/07/2020. NJ replaced on 03/11/20. Brain MRI (03/11) was normal ruling out any neurological factors contributing to continuous nausea. NJ displaced on 03/13/20 and has since been tolerating placement of NG tubes for gavage and overnight feedings. - No overnight feeds tonight - Meals: 04/06: planned for 2800 kcal + 8 cups + 4 Gatorade, will decrease to [address] to promote success with meals - Replace all uneaten meals and snacks with oral Ensure. If unable to replace PO, will need to place NG and gavage Ensure - No water bottles allowed in room. May have water from [facility] cup. Oral fluids limited to 250 mL at a time per RD. - Nexium 20 mg BID, Vit D; Periactin 4 mg with breakfast and 8 mg with dinner - Gabapentin discontinued today - Bowel regimen- miralax - Daily weights (goal gain 200-300 g/day) - CR monitors, VS q8hr, strict I/Os, daily orthostatics - Per discussion with multi-disciplinary team, Marlee may eat in her room during mealtimes, only if there is an inability to supervise meals. - For Marlee's health, NG tube must be replaced if she has remaining replacement or overnight feeds during that time. If Reynaldo refuses, may call security and use soft restraints if necessary. If cannot place NG, please place OG (which will come in and out for meal replacements; hold overnight continuous feed if OG is only option). - Nursing has specific schedule and guidelines in the kardex, consistency from day to day is very important. 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 Is tolerating meals and feeds well. Weight is 47.5 kg. Is motivated to be discharged to home. Continuing to work on discharge planning including outpatient follow up. Would like oral replacement. Meal teaching with nutrition planned for today. Plan: - daily weight, continuous CR monitoring, fall precautions, daily orthostatic vitals - strict I/Os - Diet 04/05: 2500 kcal + 8 cups + 3 Gatorade 04/06: 2800 kcal + 8 cups + 4 Gatorade 04/07: 3000 kcal + 8 cups + 4 Gatorade; maintain and adjust as needed *oral fluids limited to 250 mL at a time* - Enteral Nutrition: Continue overnight feeds with Jevity 1.2. 04/05: 70 mL/hr x 5 hours (12am-5am) 04/06: Off overnight feeds. - Meal replacement with ensure ok to drink replacements first - Continue medications - Clonazepam 0.5mg TID - Periactin 4 mg BID with breakfast and dinner, 8 mg with lunch - Nexium 20 mg BID - Prozac 30 mg daily - Neurontin 600 mg TID - Lactulose 20 g daily - Melatonin qhs prn - Multivitamin daily - Zyprexa 5 mg QHS - Miralax 17g daily - NaCl 1g TID - Vitamin D 1000 units daily - F/U with Adolescent in 10-14 days - Okay to start PT Assessment & Plan (04/05/2020 10:49 AM LITHOGRAPHIC GENERAL WORKER): Assessment: Marlee is a 19 year old with history of constipation, anxiety, and depression admitted for dehydration and functional pain with restrictive eating related to anxiety. she has had prolonged hospitalization due to difficulties with refeeding and prior CT scan (01/28/20) concerning for possible SMA syndrome and Nutcracker syndrome. Multiple NG/ND/NJ tubes placed throughout admission due to ongoing emesis and enteral tube dislodgement, upper GI series (03/09) with no concern for obstruction, brain MRI (03/11) did not demonstrate any other neurological causes of her nausea/emesis, now thought to be intentional/psychogenic emesis. Marlee was restarted on KITTY protocol on 03/16 and is now improving, continues to work on increasing her caloric intake. Plan: FEN/GI: NJ tube placed 02/02 and removed on 02/28/20 due to it clogging; ND (but still past SMA) placed on 03/02/2020. ND displaced on 03/07/2020. NJ replaced on 03/11/20. Brain MRI (03/11) was normal ruling out any neurological factors contributing to continuous nausea. NJ displaced on 03/13/20 and has since been tolerating placement of NG tubes for gavage and overnight feedings. -Overnight feeds: Jevity 1.2 at 70 ml/hr x 5 hours (12a-5a), plan to discontinue 04/06 - Meals: 2500 kcal (including 2p and 8p snack) + 8 cups + 3 Gatorades - Replace all uneaten meals and snacks with oral Ensure vs gavage Ensure - No water bottles allowed in room. May have water from [facility] cup. Oral fluids limited to 250 mL at a time per RD. - Nexium 20 mg BID, Vit D; Periactin 4 mg with breakfast and 8 mg with dinner - Neurontin 600 mg TID -- will continue wean of 600 mg daily since she no longer is complaining neuropathic pain - Bowel regimen- discontinue lactulose, continue miralax - Daily weights (goal gain 200-300 g/day) - CR monitors, VS q8hr, strict I/Os, daily orthostatics - Per discussion with multi-disciplinary team, Marlee may eat in her room during mealtimes, only if there is an inability to supervise meals. - For Marlee's health, NG tube must be replaced if she has remaining replacement or overnight feeds during that time. If Reynaldo refuses, may call security and use soft restraints if necessary. If cannot place NG, please place OG (which will come in and out for meal replacements; hold overnight continuous feed if OG is only option). - Nursing has specific schedule and guidelines in the kardex, consistency from day to day is very important. 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 Is tolerating meals and feeds well. Weight is 47.6 kg. Is motivated to be discharged to home. Continuing to work on discharge planning including outpatient follow up. Would like oral replacement. Plan: - daily weight, continuous CR monitoring, fall precautions, daily orthostatic vitals - strict I/Os - Diet 04/04: 2200 kcal + 8 cups + 2 Gatorade 04/05: 2500 kcal + 8 cups + 3 Gatorade 04/06: 2800 kcal + 8 cups + 4 Gatorade 04/07: 3000 kcal + 8 cups + 4 Gatorade; maintain and adjust as needed *oral fluids limited to 250 mL at a time* - Enteral Nutrition: Continue overnight feeds with Jevity 1.2. 04/04: 85 mL/hr x 7 hours (10pm-5am) 04/05: 70 mL/hr x 5 hours (12am-5am) 04/06: Off overnight feeds. - Meal replacement with ensure ok to drink replacements first - Continue medications - Clonazepam 0.5mg TID - Periactin 4 mg BID with breakfast and dinner, 8 mg with lunch - Nexium 20 mg BID - Prozac 30 mg daily - Neurontin 600 mg TID - Lactulose 20 g daily - Melatonin qhs prn - Multivitamin daily - Zyprexa 5 mg QHS - Miralax 17g daily - NaCl 1g TID - Vitamin D 1000 units daily Assessment & Plan (04/04/2020 10:21 AM LITHOGRAPHIC GENERAL WORKER): Assessment: Marlee is a 19 year old with history of constipation, anxiety, and depression admitted for dehydration and functional pain with restrictive eating related to anxiety. she has had prolonged hospitalization due to difficulties with refeeding and prior CT scan (01/28/20) concerning for possible SMA syndrome and Nutcracker syndrome. Multiple NG/ND/NJ tubes placed throughout admission due to ongoing emesis and enteral tube dislodgement, upper GI series (03/09) with no concern for obstruction, brain MRI (03/11) did not demonstrate any other neurological causes of her nausea/emesis, now thought to be intentional/psychogenic emesis. Marlee was restarted on KITTY protocol on 03/16 and is now improving, continues to work on increasing her caloric intake. Plan: FEN/GI: NJ tube placed 02/02 and removed on 02/28/20 due to it clogging; ND (but still past SMA) placed on 03/02/2020. ND displaced on 03/07/2020. NJ replaced on 03/11/20. Brain MRI (03/11) was normal ruling out any neurological factors contributing to continuous nausea. NJ displaced on 03/13/20 and has since been tolerating placement of NG tubes for gavage and overnight feedings. - TPN/Lipids: discontinued 03/31, will remove PICC today -Overnight feeds: Jevity 1.2 at 85 ml/hr x 7 hours (10p-5a) - Meals: 2200 kcal + 7 cups + 2 G, + 2p and 8p snack - Replace all uneaten meals and snacks with Jevity 1.2 -- have been giving replacement via gavage, will discuss with adolescent team if we can trial drinking Ensure replacement - No water bottles allowed in room. May have water from [facility] cup. Oral fluids limited to 250 mL at a time per RD. - Nexium 20 mg BID, Vit D; Periactin 4 mg with breakfast and 8 mg with dinner - Neurontin 600 mg TID -- will continue wean of 600 mg daily since she no longer is complaining neuropathic pain - Bowel regimen- lactulose 20 g via enteral tube qD - Daily weights (goal gain 200-300 g/day) - CR monitors, VS q8hr, strict I/Os, daily orthostatics - Per discussion with multi-disciplinary team, Marlee may eat in her room during mealtimes, only if there is an inability to supervise meals. - For Marlee's health, NG tube must be replaced if she has remaining replacement or overnight feeds during that time. If Reynaldo refuses, may call security and use soft restraints if necessary. If cannot place NG, please place OG (which will come in and out for meal replacements; hold overnight continuous feed if OG is only option). - Nursing has specific schedule and guidelines in the kardex, consistency from day to day is very important. - Continue incentive chart with multidisciplinary team SOCIAL: - General medicine team spoke with and updated mother on 04/03 LABS: daily urine spec gravity, BMP/Mg/Phos Q / Assessment & Plan (04/03/2020 12:59 PM LITHOGRAPHIC GENERAL WORKER): Assessment: Marlee is a 19 year old with history of constipation, anxiety, and depression admitted for dehydration and functional pain with restrictive eating related to anxiety. 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 Multiple NG/ND/NJ tubes placed throughout admission due to ongoing emesis and enteral tube dislodgement, upper GI series (03/09) with no concern for obstruction, brain MRI (03/11) did not demonstrate any other neurological causes of her nausea/emesis, now thought to be intentional/psychogenic emesis. Marlee was restarted on KITTY protocol on 03/16 and continues to work on increasing up on her caloric intake. Plan: CV: Echo was ordered (02/08) due to persistent tachycardia and showed decreased LV mass (z-score -2.4), likely from malnutrition; normal biventricular size and systolic function. EKG on 03/19 showed sinus tachycardia. Repeat echo on 03/21 with normal systolic function but still decreased LV mass. - CR monitors, VS q8hr, strict I/Os, daily weights and orthostatics FEN/GI: NJ tube placed 02/02 and removed on 02/28/20 due to it clogging; ND (but still past SMA) placed on 03/02/2020. ND displaced on 03/07/2020. NJ replaced on 03/11/20. Brain MRI (03/11) was normal ruling out any neurological factors contributing to continuous nausea. NJ displaced on 03/13/20 and has since been tolerating placement of NG tubes for gavage and overnight feedings. - TPN/Lipids: discontinued 03/31, will remove PICC on Saturday -Overnight feeds: Jevity 1.2 at 85 ml/hr x 7 hours (10p-5a) - Meals: 2000 kcal + 7 cups + 2 G, + 2p and 8p snack - Replace all uneaten meals and snacks with Jevity 1.2. Do not drink replacement, may gavage replacement through NG. No greater than 70 mL/hr at one time, as this is the largest previously tolerated volume) - No water bottles allowed in room. May have water from [facility] cup. Oral fluids limited to 250 mL at a time per RD. - Nexium 20 mg BID, Vit D; Periactin 4 mg with breakfast and 8 mg with dinner - Neurontin 600 mg TID -- will attempt to wean today by total of 600 mg daily since she no longer is complaining neuropathic pain - Bowel regimen- lactulose 20 g via enteral tube qD - Daily weights (goal gain 200-300 g/day) - Okay to space morning meds to help with nausea/vomiting - Per discussion with multi-disciplinary team, Marlee may eat in her room during mealtimes, only if there is an inability to supervise meals. - For Marlee's health, NG tube must be replaced if she has remaining replacement or overnight feeds during that time. If Reynaldo refuses, may call security and use soft restraints if necessary. If cannot place NG, please place OG (which will come in and out for meal replacements; hold overnight continuous feed if OG is only option). - Nursing has specific schedule and guidelines in the kardex, consistency from day to day is very important. - Continue incentive chart with multidisciplinary team HEME/ONC: Mircocytic anemia 2/2 malnutrition. Iron studies from 02/27/20-Iron 66, TIBC 323, Iron % Sat 20, and transferrin 258. Iron Dextran 62.5 mg on 02/14/20. ENDO: TSH 0.13 (L) and all other labs were normal on 02/17/2020(obtained due to persistent Tachycardia and BP issues; most likely 2/2 to eating disorder). Repeat TSH and T4 normal on 03/15/2020. SOCIAL: - General medicine team spoke with and updated mother on 04/03 Lab schedule: BMP, Mg, Phos: 2x/week Spec grav: daily Assessment & Plan (04/02/2020 4:19 PM LITHOGRAPHIC GENERAL WORKER): Assessment: Marlee is a 19 year old with history of constipation, anxiety, and depression admitted for dehydration and functional pain with restrictive eating related to anxiety. 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 Multiple NG/ND/NJ tubes placed throughout admission due to ongoing emesis and enteral tube dislodgement, upper GI series (03/09) with no concern for obstruction, brain MRI (03/11) did not demonstrate any other neurological causes of her nausea/emesis, now thought to be intentional/psychogenic emesis. Marlee was restarted on KITTY protocol on 03/16 and continues to work on increasing up on her caloric intake. Plan: CV: Echo was ordered (02/08) due to persistent tachycardia and showed decreased LV mass (z-score -2.4), likely from malnutrition; normal biventricular size and systolic function. EKG on 03/19 showed sinus tachycardia. Repeat echo on 03/21 with normal systolic function but still decreased LV mass. - CR monitors, VS q8hr, strict I/Os, daily weights and orthostatics FEN/GI: NJ tube placed 02/02 and removed on 02/28/20 due to it clogging; ND (but still past SMA) placed on 03/02/2020. ND displaced on 03/07/2020. NJ replaced on 03/11/20. Brain MRI (03/11) was normal ruling out any neurological factors contributing to continuous nausea. NJ displaced on 03/13/20 and has since been tolerating placement of NG tubes for gavage and overnight feedings. - TPN/Lipids: discontinued 03/31, will remove PICC on Saturday -Overnight feeds: Jevity 1.2 at 85 ml/hr x 7 hours (10p-5a) - Meals: 1600 kcal + 6 cups, + 2p and 8p snack - Replace all uneaten meals and snacks with Jevity 1.2. Do not drink replacement, may gavage replacement through NG. No greater than 70 mL/hr at one time, as this is the largest previously tolerated volume) - No water bottles allowed in room. May have water from [facility] cup. Oral fluids limited to 250 mL at a time per RD. - Nexium 20 mg BID, Vit D; Periactin 4 mg with breakfast and 8 mg with dinner - Neurontin 600 mg TID -- will attempt to wean by total of 600 mg daily since she no longer is complaining neuropathic pain (need to discuss with mother) - Bowel regimen- lactulose 20 g via enteral tube qD - Daily weights (goal gain 200-300 g/day) - Okay to space morning meds to help with nausea/vomiting - Per discussion with multi-disciplinary team, Marlee may eat in her room during mealtimes, only if there is an inability to supervise meals. - For Marlee's health, NG tube must be replaced if she has remaining replacement or overnight feeds during that time. If Reynaldo refuses, may call security and use soft restraints if necessary. If cannot place NG, please place OG (which will come in and out for meal replacements; hold overnight continuous feed if OG is only option). - Nursing has specific schedule and guidelines in the kardex, consistency from day to day is very important. - Plan to create an incentive chart with multidisciplinary team HEME/ONC: Mircocytic anemia 2/2 malnutrition. Iron studies from 02/27/20-Iron 66, TIBC 323, Iron % Sat 20, and transferrin 258. Iron Dextran 62.5 mg on 02/14/20. ENDO: TSH 0.13 (L) and all other labs were normal on 02/17/2020(obtained due to persistent Tachycardia and BP issues; most likely 2/2 to eating disorder). Repeat TSH and T4 normal on 03/15/2020. SOCIAL: - General medicine team has long discussion with updates for her mother on 03/24/2020 Lab schedule: BMP, Mg, Phos: 2x/week Spec grav: daily Assessment & Plan (04/01/2020 11:55 AM LITHOGRAPHIC GENERAL WORKER): Assessment: 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 and Anxiety/Depression. Is tolerating meals and feeds well. Weight is 46.4 kg. Is motivated to be discharged to home. Plan: - daily weight, continuous CR monitoring, fall precautions, daily orthostatic vitals - strict I/Os - Diet 04/01: 1600 kcal (has 2pm & 8pm snacks) + 6 cups + 1 Gatorade 04/02: 1800 kcal (has 2pm & 8pm snacks) + 7 cups + 1 Gatorade 04/03: 2000 kcal (has 2pm & 8pm snacks) + 7 cups + 2 Gatorade 04/04: 2200 kcal (has 2pm & 8pm snacks) + 8 cups + 2 Gatorade *oral fluids limited to 250 mL at a time* - Meal replacement with Jevity 1.2. No drinking, just gavage. - Continue overnight feeds with Jevity 1.2 at 85 mL/hr x 7 hours (10pm-5am) - Continue medications - Clonazepam 0.5mg TID - Periactin 4 mg BID with breakfast and dinner, 8 mg with lunch - Nexium 20 mg BID - Prozac 30 mg daily - Neurontin 600 mg TID - Lactulose 20 g daily - Melatonin qhs prn - Multivitamin daily - Zyprexa 5 mg QHS - Miralax 17g daily - NaCl 1g TID - Vitamin D 1000 units daily Assessment & Plan (04/01/2020 11:15 AM LITHOGRAPHIC GENERAL WORKER): Assessment: Marlee is a 19 year old with history of constipation, anxiety, and depression admitted for dehydration and functional pain with restrictive eating related to anxiety. 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 Multiple NG/ND/NJ tubes placed throughout admission due to ongoing emesis and enteral tube dislodgement, upper GI series (03/09) with no concern for obstruction, brain MRI (03/11) did not demonstrate any other neurological causes of her nausea/emesis, now thought to be intentional/psychogenic emesis. Marlee was restarted on KITYT protocol on 03/16, still working on PO meals and feeds in her room but continues to take very little PO and is receiving nutrition from TPN. Working on slowly advancing gavage feeds with ultimate goal of weaning off TPN when able. TPN wean began 03/28. Plan: CV: Echo was ordered (02/08) due to persistent tachycardia and showed decreased LV mass (z-score -2.4), likely from malnutrition; normal biventricular size and systolic function. EKG on 03/19 showed sinus tachycardia. Repeat echo on 03/21 with normal systolic function but still decreased LV mass. - CR monitors, VS q8hr, strict I/Os, daily weights and orthostatics FEN/GI: NJ tube placed 02/02 and removed on 02/28/20 due to it clogging; ND (but still past SMA) placed on 03/02/2020. ND displaced on 03/07/2020. NJ replaced on 03/11/20. Brain MRI (03/11) was normal ruling out any neurological factors contributing to continuous nausea. NJ displaced on 03/13/20 and has since been tolerating placement of NG tubes for gavage and overnight feedings. - TPN/Lipids: discontinued 03/31, will remove PICC today -Overnight feeds: Jevity 1.2 at 85 ml/hr x 7 hours (10p-5a) - Meals: 1600 kcal + 6 cups, add 8p snack - Replace all uneaten meals and snacks with Jevity 1.2. Do not drink replacement, may gavage replacement through NG. No greater than 70 mL/hr at one time, as this is the largest previously tolerated volume) - No water bottles allowed in room. May have water from [facility] cup. Oral fluids limited to 250 mL at a time per RD. - Nexium 20 mg BID, Vit D; Periactin 4 mg with breakfast and 8 mg with dinner - Neurontin 600 mg TID -- will attempt to wean by total of 600 mg daily since she no longer is complaining neuropathic pain (need to discuss with mother) - Bowel regimen- lactulose 20 g via enteral tube qD - Daily weights (goal gain 200-300 g/day) - Okay to space morning meds to help with nausea/vomiting - Per discussion with multi-disciplinary team, Marlee may eat in her room during mealtimes, only if there is an inability to supervise meals. - For Marlee's health, NG tube must be replaced if she has remaining replacement or overnight feeds during that time. If Reynaldo refuses, may call security and use soft restraints if necessary. If cannot place NG, please place OG (which will come in and out for meal replacements; hold overnight continuous feed if OG is only option). - Nursing has specific schedule and guidelines in the kardex, consistency from day to day is very important. - Plan to create an incentive chart with multidisciplinary team HEME/ONC: Mircocytic anemia 2/2 malnutrition. Iron studies from 02/27/20-Iron 66, TIBC 323, Iron % Sat 20, and transferrin 258. Iron Dextran 62.5 mg on 02/14/20. ENDO: TSH 0.13 (L) and all other labs were normal on 02/17/2020(obtained due to persistent Tachycardia and BP issues; most likely 2/2 to eating disorder). Repeat TSH and T4 normal on 03/15/2020. SOCIAL: - General medicine team has long discussion with updates for her mother on 03/24/2020 Lab schedule: BMP, Mg, Phos: 2x/week Spec grav: daily Assessment & Plan (03/31/2020 12:05 PM LITHOGRAPHIC GENERAL WORKER): Assessment: 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 and Anxiety/Depression. Has stuggled with any PO intake and tolerating feeds. Weight is 41.6 kg. Now it is obvious that much, if not all of her vomiting is self-induced. Plan: - daily weight, continuous CR monitoring, fall precautions, daily orthostatic vitals - strict I/Os - Diet: 03/31: 1300 kcal today and add 2pm snack - overnight feeds to stay at 75 mL/hr with Jevity 1.2 x 8 hours (9pm-5am) - oral and enteral nutrition provides a total of ~2000 kcal/day 04/01: increase calories to 1600 kcal and add 8pm snack - overnight feeds adjusted to 85 mL/hr with Jevity 1.2 x 7 hours (10pm-5am) - oral and enteral nutrition provides a total of ~2300 kcal/day Replace all uneaten meals and snacks with Jevity, no greater than 70 mL/hr at one time - Continue medications - Clonazepam 0.5mg TID - Periactin 4 mg BID with breakfast and dinner, 8 mg with lunch - Nexium 20 mg BID - Prozac 30 mg daily - Neurontin 600 mg TID - Lactulose 20 g daily - Melatonin qhs prn - Multivitamin daily - Zyprexa 5 mg QHS - Miralax 17g daily - NaCl 1g TID - Vitamin D 1000 units daily Assessment & Plan (03/31/2020 10:06 AM LITHOGRAPHIC GENERAL WORKER): Assessment: Marlee is a 19 year old with history of constipation, anxiety, and depression admitted for dehydration and functional pain with restrictive eating related to anxiety. 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 Multiple NG/ND/NJ tubes placed throughout admission due to ongoing emesis and enteral tube dislodgement, upper GI series (03/09) with no concern for obstruction, brain MRI (03/11) did not demonstrate any other neurological causes of her nausea/emesis, now thought to be intentional/psychogenic emesis. Marlee was restarted on KITTY protocol on 03/16, still working on PO meals and feeds in her room but continues to take very little PO and is receiving nutrition from TPN. Working on slowly advancing gavage feeds with ultimate goal of weaning off TPN when able. TPN wean began 03/28. Plan: CV: Echo was ordered (02/08) due to persistent tachycardia and showed decreased LV mass (z-score -2.4), likely from malnutrition; normal biventricular size and systolic function. EKG on 03/19 showed sinus tachycardia. Repeat echo on 03/21 with normal systolic function but still decreased LV mass. - CR monitors, VS q8hr, strict I/Os, daily weights and orthostatics FEN/GI: NJ tube placed 02/02 and removed on 02/28/20 due to it clogging; ND (but still past SMA) placed on 03/02/2020. ND displaced on 03/07/2020. NJ replaced on 03/11/20. Brain MRI (03/11) was normal ruling out any neurological factors contributing to continuous nausea. NJ displaced on 03/13/20 and has since been tolerating placement of NG tubes for gavage and overnight feedings. - TPN/Lipids: discontinue today -Overnight feeds: Jevity 1.2 at 75 ml/hr x 8 hours (9p-5a) - Meals: 1200 kcal + 6 cups - Replace all uneaten meals and snacks with Jevity 1.2. Do not drink replacement, may gavage replacement through NG. No greater than 70 mL/hr at one time, as this is the largest previously tolerated volume) - No water bottles allowed in room. May have water from [facility] cup. Oral fluids limited to 250 mL at a time per RD. - Nexium 20 mg BID, Vit D; Periactin 4 mg with breakfast and 8 mg with dinner - Neurontin 600 mg TID -- will attempt to wean by total of 600 mg daily since she no longer is complaining neuropathic pain; today will decrease to 300 mg, 300 mg, 600 mg doses - Bowel regimen- lactulose 20 g via enteral tube qD - Daily weights (goal gain 200-300 g/day) - Okay to space morning meds to help with nausea/vomiting - Per discussion with multi-disciplinary team, aMrlee may eat in her room during mealtimes, only if there is an inability to supervise meals. - For Marlee's health, NG tube must be replaced if she has remaining replacement or overnight feeds during that time. If Reynaldo refuses, may call security and use soft restraints if necessary. If cannot place NG, please place OG (which will come in and out for meal replacements; hold overnight continuous feed if OG is only option). - Nursing has specific schedule and guidelines in the kardex, consistency from day to day is very important. - Plan to create an incentive chart with multidisciplinary team HEME/ONC: Mircocytic anemia 2/2 malnutrition. Iron studies from 02/27/20-Iron 66, TIBC 323, Iron % Sat 20, and transferrin 258. Iron Dextran 62.5 mg on 02/14/20. ENDO: TSH 0.13 (L) and all other labs were normal on 02/17/2020(obtained due to persistent Tachycardia and BP issues; most likely 2/2 to eating disorder). Repeat TSH and T4 normal on 03/15/2020. SOCIAL: - General medicine team has long discussion with updates for her mother on 03/24/2020 Lab schedule: CMP, Mg, Phos, Triglycerides: Tues, Thurs, Sun evening Spec grav: daily Assessment & Plan (03/30/2020 2:24 PM LITHOGRAPHIC GENERAL WORKER): Assessment: Marlee is a 19 year old with history of constipation, anxiety, and depression admitted for dehydration and functional pain with restrictive eating related to anxiety. 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 Multiple NG/ND/NJ tubes placed throughout admission due to ongoing emesis and enteral tube dislodgement, upper GI series (03/09) with no concern for obstruction, brain MRI (03/11) did not demonstrate any other neurological causes of her nausea/emesis, now thought to be intentional/psychogenic emesis. Marlee was restarted on KITTY protocol on 03/16, still working on PO meals and feeds in her room but continues to take very little PO and is receiving nutrition from TPN. Working on slowly advancing gavage feeds with ultimate goal of weaning off TPN when able. TPN wean began 03/28. Plan: CVS: Echo was ordered (02/08) due to persistent tachycardia and showed decreased LV mass (z-score -2.4), likely from malnutrition; normal biventricular size and systolic function. EKG on 03/19 showed sinus tachycardia. Repeat echo on 03/21 with normal systolic function but still decreased LV mass. - CR monitors, VS q8hr, strict I/Os, daily weights and orthostatics FEN/GI: NJ tube placed 02/02 and removed on 02/28/20 due to it clogging; ND (but still past SMA) placed on 03/02/2020. ND displaced on 03/07/2020. NJ replaced on 03/11/20. Brain MRI (03/11) was normal ruling out any neurological factors contributing to continuous nausea. NJ displaced on 03/13/20 and has since been tolerating placement of NG tubes for gavage and overnight feedings. - TPN/Lipids: decrease TPN/lipids to 30 mL/hr and 6 mL/hr respectively with plan to discontinue tomorrow if remains tolerating increased NG feeds -Overnight feeds: Jevity 1.2 at 60ml/hr x 10 hours (1999 - 0600) - Meals: 300 kcal at (breakfast, lunch, and dinner). - Replace all uneaten meals and snacks with Jevity 1.2. Do not drink replacement, may gavage replacement through NG. No greater than 70 mL/hr at one time, as this is the largest previously tolerated volume) - No water bottles allowed in room. May have water from [facility] cup. Oral fluids limited to 250 mL at a time per RD. - Nexium 20 mg BID, Vit D; Periactin 4 mg with breakfast and 8 mg with dinner - Neurontin 600 mg TID - Bowel regimen- lactulose 20 g via enteral tube qD - Daily weights. goal for gaining 200-300 g/day - Okay to space morning meds to help with nausea/vomiting - Per discussion with multi-disciplinary team, Marlee may eat in her room during mealtimes, only if there is an inability to supervise meals. - For Marlee's health, NG tube must be replaced if she has remaining replacement or overnight feeds during that time. If Reynaldo refuses, may call security and use soft restraints if necessary. If cannot place NG, please place OG (which will come in and out for meal replacements; hold overnight continuous feed if OG is only option). - Nursing has specific schedule and guidelines in the kardex, consistency from day to day is very important. - Plan to create an incentive chart with multidisciplinary team HEME/ONC: Mircocytic anemia 2/2 malnutrition. Iron studies from 02/27/20-Iron 66, TIBC 323, Iron % Sat 20, and transferrin 258. Iron Dextran 62.5 mg on 02/14/20. ENDO: TSH 0.13 (L) and all other labs were normal on 02/17/2020(obtained due to persistent Tachycardia and BP issues; most likely 2/2 to eating disorder). Repeat TSH and T4 normal on 03/15/2020. SOCIAL: - General medicine team has long discussion with updates for her mother on 03/24/2020 Lab schedule: CMP, Mg, Phos, Triglycerides: Tues, Thurs, Sun evening Spec grav: daily Assessment & Plan (03/29/2020 10:40 AM LITHOGRAPHIC GENERAL WORKER): Assessment: Marlee is a 19 year old with history of constipation, anxiety, and depression admitted for dehydration and functional pain with restrictive eating related to anxiety. 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 Multiple NG/ND/NJ tubes placed throughout admission due to ongoing emesis and enteral tube dislodgement, upper GI series (03/09) with no concern for obstruction, brain MRI (03/11) did not demonstrate any other neurological causes of her nausea/emesis, now thought to be intentional/psychogenic emesis. Marlee was restarted on KITTY protocol on 03/16, still working on PO meals and feeds in her room but continues to take very little PO and is receiving nutrition from TPN. Working on slowly advancing gavage feeds with ultimate goal of weaning off TPN when able. TPN wean began 03/28. Plan: CVS: Echo was ordered (02/08) due to persistent tachycardia and showed decreased LV mass (z-score -2.4), likely from malnutrition; normal biventricular size and systolic function. EKG on 03/19 showed sinus tachycardia. Repeat echo on 03/21 with normal systolic function but still decreased LV mass. - CR monitors, VS q8hr, strict I/Os, daily weights and orthostatics FEN/GI: NJ tube placed 02/02 and removed on 02/28/20 due to it clogging; ND (but still past SMA) placed on 03/02/2020. ND displaced on 03/07/2020. NJ replaced on 03/11/20. Brain MRI (03/11) was normal ruling out any neurological factors contributing to continuous nausea. NJ displaced on 03/13/20 and has since been tolerating placement of NG tubes for gavage and overnight feedings. - Continue TPN/lipids at decreased rate of 60 mL/hr and 12 mL/hr - if continues to tolerate increase in NG feeds, can likely wean again by 25% tomorrow. D/w RD. -Continue Jevity for tube feedings, per Dr. Sierra -Overnight feeds: 03/29: Jevity 1.2 increase to 55 mL/hr x 10 hours (1999 - 0600) 03/30: Increase rate to 60ml/hr x 10 hours (1999 - 599) -03/29: 250 kcal at (breakfast, lunch, and dinner). Plan to increase calories on 03/30 to 300. - Replace all uneaten meals and snacks with Jevity 1.2. Do not drink replacement, may gavage replacement through NG. No greater than 70 mL/hr at one time, as this is the largest previously tolerated volume) - No water bottles allowed in room. May have water from [employer] cup. Oral fluids limited to 250 mL at a time per RD. - Nexium 20 mg BID, Vit D; Periactin 4 mg with breakfast and 8 mg with dinner - Neurontin 600 mg TID - Bowel regimen- lactulose 20 g via enteral tube qD - Daily weights. goal for gaining 200-300 g/day - Okay to space morning meds to help with nausea/vomiting - Per discussion with multi-disciplinary team, Marlee may eat in her room during mealtimes, only if there is an inability to supervise meals. - For Marlee's health, NG tube must be replaced if she has remaining replacement or overnight feeds during that time. If Reynaldo refuses, may call security and use soft restraints if necessary. If cannot place NG, please place OG (which will come in and out for meal replacements; hold overnight continuous feed if OG is only option). - Nursing has specific schedule and guidelines in the kardex, consistency from day to day is very important. - Plan to create an incentive chart with multidisciplinary team HEME/ONC: Mircocytic anemia 2/2 malnutrition. Iron studies from 02/27/20-Iron 66, TIBC 323, Iron % Sat 20, and transferrin 258. Iron Dextran 62.5 mg on 02/14/20. ENDO: TSH 0.13 (L) and all other labs were normal on 02/17/2020(obtained due to persistent Tachycardia and BP issues; most likely 2/2 to eating disorder). Repeat TSH and T4 normal on 03/15/2020. SOCIAL: - General medicine team has long discussion with updates for her mother on 03/24/2020 Lab schedule: CMP, Mg, Phos, Triglycerides: Tues, Thurs, Sun evening Spec grav: daily Assessment & Plan (03/28/2020 12:29 PM LITHOGRAPHIC GENERAL WORKER): Assessment: Marlee is a 19 year old with history of constipation, anxiety, and depression admitted for dehydration and functional pain with restrictive eating patterns related to anxiety. 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 Multiple NG/ND/NJ tubes placed throughout admission due to ongoing emesis and enteral tube dislodgement, upper GI series (03/09) with no concern for obstruction, brain MRI (03/11) did not demonstrate any other neurological causes of her nausea/emesis, now thought to be intentional/psychogenic emesis. Marlee was restarted on KITTY protocol on 03/16, still working on PO meals and feeds in her room but continues to take very little PO and is receiving nutrition from TPN. Working on slowly advancing gavage feeds with ultimate goal of weaning off TPN when able. Plan: [facility]: Echo was ordered (02/08) due to persistent tachycardia and showed decreased LV mass (z-score -2.4), likely from malnutrition; normal biventricular size and systolic function. EKG on 03/19 showed sinus tachycardia. Repeat echo on 03/21 with normal systolic function but still decreased LV mass. - CR monitors, VS q8hr, strict I/Os, daily weights and orthostatics FEN/GI: NJ tube placed 02/02 and removed on 02/28/20 due to it clogging; ND (but still past SMA) placed on 03/02/2020. ND displaced on 03/07/2020. NJ replaced on 03/11/20. Brain MRI (03/11) was normal ruling out any neurological factors contributing to continuous nausea. NJ displaced on 03/13/20 and has since been tolerating placement of NG tubes for gavage and overnight feedings. - weanTPN/lipids by 25% today to 60 mL/hr and 12 mL/hr - if continues to tolerate increase in NG feeds, can likely wean again by 25% tomorrow. D/w RD. -Continue Jevity for tube feedings, per Dr. Sierra -Overnight feeds: 03/28: Continue Jevity 1.2 50 mL/hr x 10 hours (1999 - 0600), consider increasing rate again in 1-2 days if tolerating -200 kcal at (breakfast, lunch, and dinner). Discuss increasing tomorrow. - Replace all uneaten meals and snacks with Ensure. Give 15 minutes to drink. If does not drink, gavage remainder (over 1-2 hours depending on volume; no greater than 70 mL/hr at one time, as this is the largest previously tolerated volume) - No water bottles allowed in room. May have water from [employer] cup. Oral fluids limited to 250 mL at a time per RD. - Nexium 20 mg BID, Vit D; Periactin 4 mg with breakfast and 8 mg with dinner - Neurontin 600 mg TID - Bowel regimen- lactulose 20 g via enteral tube qD - Daily weights. goal for gaining 200-300 g/day - Okay to space morning meds to help with nausea/vomiting - Per discussion with multi-disciplinary team, Marlee may eat in her room during mealtimes, only if there is an inability to supervise meals. - For Marlee's health, NG tube must be replaced if she has remaining replacement or overnight feeds during that time. If Reynaldo refuses, may call security and use soft restraints if necessary. If cannot place NG, please place OG (which will come in and out for meal replacements; hold overnight continuous feed if OG is only option). - Nursing has specific schedule and guidelines in the kardex, consistency from day to day is very important. - Plan to create an incentive chart with multidisciplinary team HEME/ONC: Mircocytic anemia 2/2 malnutrition. Iron studies from 02/27/20-Iron 66, TIBC 323, Iron % Sat 20, and transferrin 258. Iron Dextran 62.5 mg on 02/14/20. ENDO: TSH 0.13 (L) and all other labs were normal on 02/17/2020(obtained due to persistent Tachycardia and BP issues; most likely 2/2 to eating disorder). Repeat TSH and T4 normal on 03/15/2020. SOCIAL: - General medicine team has long discussion with updates for her mother on 03/24/2020 Lab schedule: CMP, Mg, Phos, Triglycerides: Tues, Thurs, Sun evening Spec grav: daily Assessment & Plan (03/27/2020 10:34 AM LITHOGRAPHIC GENERAL WORKER): Assessment: Marlee is a 19 year old with history of constipation, anxiety, and depression admitted for dehydration and functional pain with restrictive eating patterns related to anxiety. Adolescent medicine was consulted and is following. 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 NJ tube was placed on 02/02 by IR due to inability to tolerate feeds with NG and ND. PICC line placed on 02/08. NJ was removed on 02/27/19 due to becoming non-functional. ND placed on 03/02/20 with displacement on 03/07/20 after a bout of emesis. GI was consulted due to persistent vomiting; IBD was ruled out as fecal calprotectin was normal. Surgery was consulted (03/08/20) as pt had minimal improvement with tolerance of oral intake with the enteral tube. Upper GI series (03/09) was completed revealing no concern for obstruction. NJ was replaced on 03/11/20 and displaced on 03/13 after a bout of emesis. She also obtained brain MRI on 03/11 to rule out any other neurological causes of her nausea; MRI was normal. Pt started KITTY protocol on 03/16 (dinner time) with TPN. However, this did not go well. She is now doing meals and feeds in her room but continues to take very little PO and is receiving full nutrition needs from TPN. Working on slowly advancing gavage feeds with ultimate goal of weaning off TPN when able. Continues to have on-going emesis and NG tube requires frequent replacement. Plan: [facility]: Echo was ordered (02/08) due to persistent tachycardia and showed decreased LV mass (z-score -2.4), likely from malnutrition; normal biventricular size and systolic function. EKG on 03/19 showed sinus tachycardia. Repeat echo on 03/21 with normal systolic function but still decreased LV mass. - CR monitors, VS q8hr, strict I/Os, daily weights and orthostatics FEN/GI: NJ tube placed 02/02 and removed on 02/28/20 due to it clogging; ND (but still past SMA) placed on 03/02/2020. ND displaced on 03/07/2020. NJ replaced on 03/11/20. Brain MRI (03/11) was normal ruling out any neurological factors contributing to continuous nausea. NJ displaced on 03/13/20 and has since been tolerating placement of NG tubes for gavage and overnight feedings. -Continue TPN at 80ml/hr and lipids at 17ml/hr - if continues to tolerate increase in NG feeds, can likely wean by 25% tomorrow. D/w RD. -Continue Jevity for tube feedings, per Dr. Sierra -Overnight feeds: 03/24 - 03/26 has been ordered Jevity 1.2 run at 30 mL/hr x 10 hours (8pm-6am). Per RD, will advance by 10 ml/hr each day if tolerating. 03/26: tolerated 40 mL/hr last night 03/27: Increase to 50 mL/hr tonight. [facility] is aware of increase but did not discuss actual rate. -200 kcal at (breakfast, lunch, and dinner). Discuss increasing tomorrow. - Replace all uneaten meals and snacks with Ensure. Give 15 minutes to drink. If does not drink, gavage remainder (over 1-2 hours depending on volume; no greater than 70 mL/hr at one time, as this is the largest previously tolerated volume) - No water bottles allowed in room. May have water from [facility] cup. Oral fluids limited to 250 mL at a time per RD. - Nexium 20 mg BID, Vit D; Periactin 4 mg with breakfast and 8 mg with dinner - Neurontin 600 mg TID - Bowel regimen- lactulose 20 g via enteral tube qD - Daily weights. goal for gaining 200-300 g/day - Okay to space morning meds to help with nausea/vomiting - Per discussion with multi-disciplinary team, Marlee may eat in her room during mealtimes, only if there is an inability to supervise meals. - For Marlee's health, NG tube must be replaced if she has remaining replacement or overnight feeds during that time. If Reynaldo refuses, may call security and use soft restraints if necessary. If cannot place NG, please place OG (which will come in and out for meal replacements; hold overnight continuous feed if OG is only option). - Nursing has specific schedule and guidelines in the kardex, consistency from day to day is very important. - Plan to create an incentive chart tomorrow with multidisciplinary team HEME/ONC: Mircocytic anemia 2/2 malnutrition. Iron studies from 02/27/20-Iron 66, TIBC 323, Iron % Sat 20, and transferrin 258. Iron Dextran 62.5 mg on 02/14/20. ENDO: TSH 0.13 (L) and all other labs were normal on 02/17/2020(obtained due to persistent Tachycardia and BP issues; most likely 2/2 to eating disorder). Repeat TSH and T4 normal on 03/15/2020. SOCIAL: - General medicine team has long discussion with updates for her mother on 03/24/2020) Lab schedule: CMP, Mg, Phos, Triglycerides: Tues, Thurs, Sun evening Spec grav: daily Assessment & Plan (03/26/2020 11:20 AM LITHOGRAPHIC GENERAL WORKER): Assessment: Marlee is a 19 year old with history of constipation, anxiety, and depression admitted for dehydration and functional pain with restrictive eating patterns related to anxiety. Adolescent medicine was consulted and is following. 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 NJ tube was placed on 02/02 by IR due to inability to tolerate feeds with NG and ND. PICC line placed on 02/08. NJ was removed on 02/27/19 due to becoming non-functional. ND placed on 03/02/20 with displacement on 03/07/20 after a bout of emesis. GI was consulted due to persistent vomiting; IBD was ruled out as fecal calprotectin was normal. Surgery was consulted (03/08/20) as pt had minimal improvement with tolerance of oral intake with the enteral tube. Upper GI series (03/09) was completed revealing no concern for obstruction. NJ was replaced on 03/11/20 and displaced on 03/13 after a bout of emesis. She also obtained brain MRI on 03/11 to rule out any other neurological causes of her nausea; MRI was normal. Pt started KITTY protocol on 03/16 (dinner time) with TPN. However, this did not go well. She is now doing meals and feeds in her room but continues to take very little PO and is receiving full nutrition needs from TPN. Working on slowly advancing gavage feeds with ultimate goal of weaning off TPN when able. Continues to have on-going emesis and NG tube requires frequent replacement. Plan: [facility]: Echo was ordered (02/08) due to persistent tachycardia and showed decreased LV mass (z-score -2.4), likely from malnutrition; normal biventricular size and systolic function. EKG on 03/19 showed sinus tachycardia. Repeat echo on 03/21 with normal systolic function but still decreased LV mass. - CR monitors, VS q8hr, strict I/Os, daily weights and orthostatics FEN/GI: NJ tube placed 02/02 and removed on 02/28/20 due to it clogging; ND (but still past SMA) placed on 03/02/2020. ND displaced on 03/07/2020. NJ replaced on 03/11/20. Brain MRI (03/11) was normal ruling out any neurological factors contributing to continuous nausea. NJ displaced on 03/13/20 and has since been tolerating placement of NG tubes for gavage and overnight feedings. -Continue TPN at 80ml/hr and lipids at 17ml/hr -Continue Jevity, per Dr. Sierra -Overnight feeds 03/24 - 03/26 has been ordered Jevity 1.2 run at 30 mL/hr x 10 hours (8pm-6am) 03/26: per RD, will advance by 10 ml/hr each day if tolerating. Increase to 40 mL/hr tonight. -200 kcal at (breakfast, lunch, and dinner) - Replace all uneaten meals and snacks with Ensure. Give 15 minutes to drink. If does not drink, gavage remainder (over 1-2 hours depending on volume; no greater than 70 mL/hr at one time, as this is the largest previously tolerated volume) - No water bottles allowed in room. May have water from [employer] cup. oral fluids limited to 250 mL at a time per RD. - Nexium 20 mg BID, Vit D; Periactin 4 mg with breakfast and 8 mg with dinner - Neurontin 600 mg TID - Bowel regimen- lactulose 20 g via enteral tube qD - Daily weights. goal for gaining 200-300 g/day - Okay to space morning meds to help with nausea/vomiting - Per discussion with multi-disciplinary team, Marlee may eat in her room during mealtimes, only if there is an inability to supervise meals. - For Marlee's health, NG tube must be replaced if she has remaining replacement or overnight feeds during that time. If reynaldo refuses, may call security and use soft restraints if necessary. If cannot place, please place OG (which will come in and out for meal replacements; hold overnight continuous feed if OG is only option). - Nursing has specific schedule and guidelines in the kardex, consistency from day to day is very important. HEME/ONC: Mircocytic anemia 2/2 malnutrition. Iron studies from 02/27/20-Iron 66, TIBC 323, Iron % Sat 20, and transferrin 258. Iron Dextran 62.5 mg on 02/14/20. ENDO: TSH 0.13 (L) and all other labs were normal on 02/17/2020(obtained due to persistent Tachycardia and BP issues; most likely 2/2 to eating disorder). Repeat TSH and T4 normal on 03/15/2020. SOCIAL: - General medicine team has long discussion with updates for her mother on 03/24/2020) Lab schedule: CMP, Mg, Phos, Triglycerides: Tues, Thurs, Sun evening Spec grav: daily Assessment & Plan (03/25/2020 12:30 PM LITHOGRAPHIC GENERAL WORKER): Assessment: Marlee is a 19 year old with history of constipation, anxiety, and depression admitted for dehydration and functional pain with restrictive eating patterns related to anxiety. Adolescent medicine was consulted and is following. 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 NJ tube was placed on 02/02 by IR due to inability to tolerate feeds with NG and ND. PICC line placed on 02/08. NJ was removed on 02/27/19 due to becoming non-functional. ND placed on 03/02/20 with displacement on 03/07/20 after a bout of emesis. GI was consulted due to persistent vomiting; IBD was ruled out as fecal calprotectin was normal. Surgery was consulted (03/08/20) as pt had minimal improvement with tolerance of oral intake with the enteral tube. Upper GI series (03/09) was completed revealing no concern for obstruction. NJ was replaced on 03/11/20 and displaced on 03/13 after a bout of emesis. She also obtained brain MRI on 03/11 to rule out any other neurological causes of her nausea; MRI was normal. Pt started KITTY protocol on 03/16 (dinner time) with TPN. However, this did not go well. She is now doing meals and feeds in her room but continues to take very little PO and is receiving full nutrition needs from TPN. Working on slowly advancing gavage feeds with ultimate goal of weaning off TPN when able. Continues to have on-going emesis and NG tube requires frequent replacement. Plan: [facility]: Echo was ordered (02/08) due to persistent tachycardia and showed decreased LV mass (z-score -2.4), likely from malnutrition; normal biventricular size and systolic function. EKG on 03/19 showed sinus tachycardia. Repeat echo on 03/21 with normal systolic function but still decreased LV mass. - CR monitors, VS q8hr, strict I/Os, daily weights and orthostatics FEN/GI: NJ tube placed 02/02 and removed on 02/28/20 due to it clogging; ND (but still past SMA) placed on 03/02/2020. ND displaced on 03/07/2020. NJ replaced on 03/11/20. Brain MRI (03/11) was normal ruling out any neurological factors contributing to continuous nausea. SHAMAR displaced on 03/13/20 and has since been tolerating placement of NG tubes for gavage and overnight feedings. -Continue TPN at 80ml/hr and lipids at 17ml/hr -Continue Jevity, per Dr. Sierra -Overnight feeds Jevity 1.2 run at 30 mL/hr x 10 hours (8pm-6am) -200 kcal at (breakfast, lunch, and dinner) - Replace all uneaten meals and snacks with Ensure. Give 15 minutes to drink. If does not drink, gavage remainder (over 1-2 hours depending on volume; no greater than 70 mL/hr at one time, as this is the largest previously tolerated volume) - Nexium 20 mg BID, Vit D; Periactin 4 mg with breakfast and 8 mg with dinner - Neurontin 600 mg TID - Bowel regimen- lactulose 20 g via enteral tube qD - Daily weights. goal for gaining 200-300 g/day - Okay to space morning meds to help with nausea/vomiting - Per discussion with multi-disciplinary team, Marlee may eat in her room during mealtimes, only if there is an inability to supervise meals. - For Marlee's health, NG tube must be replaced if she has remaining replacement or overnight feeds during that time. If reynaldo refuses, may call security and use soft restraints if necessary. - No water bottles allowed in room. May have water from [employer] cup. - May take shower while sitting in the tub but tub must be plugged and drained by RN to ensure no purging behavior during showers. HEME/ONC: Mircocytic anemia 2/2 malnutrition. Iron studies from 02/27/20-Iron 66, TIBC 323, Iron % Sat 20, and transferrin 258. Iron Dextran 62.5 mg on 02/14/20. ENDO: TSH 0.13 (L) and all other labs were normal on 02/17/2020(obtained due to persistent Tachycardia and BP issues; most likely 2/2 to eating disorder). Repeat TSH and T4 normal on 03/15/2020. SOCIAL: - General medicine team has long discussion with updates for her mother on 03/24/2020) Lab schedule: CMP, Mg, Phos, Triglycerides: Tues, Thurs, Sun evening Spec grav: daily Assessment & Plan (03/24/2020 5:02 PM LITHOGRAPHIC GENERAL WORKER): Assessment: 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 and Anxiety/Depression. Has stuggled with any PO intake and tolerating feeds. Weight is 41.6 kg. Now it is obvious that much, if not all of her vomiting is self-induced. Plan: - daily weight, continuous CR monitoring, fall precautions, daily orthostatic vitals - strict I/Os - Continue TPN, now at 80 ml/hr with lipids at 16 ml/hr - Diet: 200 kcal meals (breakfast, lunch and dinner) Replace all uneaten meals and snacks with Jevity, no greater than 70 mL/hr at one time - Continue medications - Neurontin 600 mg TID - Periactin 4 mg BID with breakfast and dinner, 8 mg with lunch - Nexium 20 mg BID - Prozac 30 mg daily - Lactulose 20 g daily - Melatonin qhs prn - Zyprexa 5 mg QHS - NaCl 1g TID - Vitamin D 1000 units daily - Tylenol prn - Atarax 25 mg TID PRN for anxiety Assessment & Plan (03/24/2020 11:19 AM LITHOGRAPHIC GENERAL WORKER): Assessment: Marlee is a 19 year old with history of constipation, anxiety, and depression admitted for dehydration and functional pain with restrictive eating patterns related to anxiety. Adolescent medicine was consulted and is following. 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 NJ tube was placed on 02/02 by IR due to inability to tolerate feeds with NG and ND. PICC line placed on 02/08. NJ was removed on 02/27/19 due to becoming non-functional. ND placed on 03/02/20 with displacement on 03/07/20 after a bout of emesis. GI was consulted due to persistent vomiting; IBD was ruled out as fecal calprotectin was normal. Surgery was consulted (03/08/20) as pt had minimal improvement with tolerance of oral intake with the enteral tube. Upper GI series (03/09) was completed revealing no concern for obstruction. NJ was replaced on 03/11/20 and displaced on 03/13 after a bout of emesis. She also obtained brain MRI on 03/11 to rule out any other neurological causes of her nausea; MRI was normal. Pt started KITTY protocol on 03/16 (dinner time) with TPN. However, this did not go well. She is now doing meals and feeds in her room but continues to take very little PO and is receiving full nutrition needs from TPN. Working on slowly advancing gavage feeds with ultimate goal of weaning off TPN when able. Continues to have on-going emesis and NG tube requires frequent replacement. Plan: [facility]: Echo was ordered (02/08) due to persistent tachycardia and showed decreased LV mass (z-score -2.4), likely from malnutrition; normal biventricular size and systolic function. EKG on 03/19 showed sinus tachycardia. Repeat echo on 03/21 with normal systolic function but still decreased LV mass. - CR monitors, VS q8hr, strict I/Os, daily weights and orthostatics FEN/GI: NJ tube placed 02/02 and removed on 02/28/20 due to it clogging; ND (but still past SMA) placed on 03/02/2020. ND displaced on 03/07/2020. NJ replaced on 03/11/20. Brain MRI (03/11) was normal ruling out any neurological factors contributing to continuous nausea. NJ displaced on 03/13/20 and has since been tolerating placement of NG tubes for gavage and overnight feedings. -Continue TPN at 80ml/hr and lipids at 17ml/hr -Continue Jevity, per Dr. Sierra -Overnight feeds Jevity 1.2 run at 30 mL/hr x 10 hours (8pm-6am) -200 kcal at (breakfast, lunch, and dinner) - Replace all uneaten meals and snacks with Ensure. Give 15 minutes to drink. If does not drink, gavage remainder (over 1-2 hours depending on volume; no greater than 70 mL/hr at one time, as this is the largest previously tolerated volume) - Nexium 20 mg BID, Vit D; Periactin 4 mg with breakfast and 8 mg with dinner - Neurontin 600 mg TID - Bowel regimen- lactulose 20 g via enteral tube qD - Daily weights. goal for gaining 200-300 g/day - Okay to space morning meds to help with nausea/vomiting - Per discussion with multi-disciplinary team, Marlee may eat in her room during mealtimes, only if there is an inability to supervise meals. - For Marlee's health, NG tube must be replaced if she has remaining replacement or overnight feeds during that time. If reynaldo refuses, may call security and use soft restraints if necessary. - No water bottles allowed in room. May have water from [employer] cup. - May take shower while sitting in the tub but tub must be plugged and drained by RN to ensure no purging behavior during showers. HEME/ONC: Mircocytic anemia 2/2 malnutrition. Iron studies from 02/27/20-Iron 66, TIBC 323, Iron % Sat 20, and transferrin 258. Iron Dextran 62.5 mg on 02/14/20. ENDO: TSH 0.13 (L) and all other labs were normal on 02/17/2020(obtained due to persistent Tachycardia and BP issues; most likely 2/2 to eating disorder). Repeat TSH and T4 normal on 03/15/2020. SOCIAL: - General medicine team will call and discuss the above changes with her mother (03/24/2020). Lab schedule: CMP, Mg, Phos, Triglycerides: Tues, Thurs, Sun evening Spec grav: daily Assessment & Plan (03/23/2020 12:20 PM LITHOGRAPHIC GENERAL WORKER): Assessment: Marlee is a 19 year old with history of constipation, anxiety, and depression admitted for dehydration and functional pain with restrictive eating patterns related to anxiety. Adolescent medicine was consulted and is following. 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 NJ tube was placed on 02/02 by IR due to inability to tolerate feeds with NG and ND. PICC line placed on 02/08. NJ was removed on 02/27/19 due to becoming non-functional. ND placed on 03/02/20 with displacement on 03/07/20 after a bout of emesis. GI was consulted due to persistent vomiting; IBD was ruled out as fecal calprotectin was normal. Surgery was consulted (03/08/20) as pt had minimal improvement with tolerance of oral intake with the enteral tube. Upper GI series (03/09) was completed revealing no concern for obstruction. NJ was replaced on 03/11/20 and displaced on 03/13 after a bout of emesis. She also obtained brain MRI on 03/11 to rule out any other neurological causes of her nausea; MRI was normal. Pt started KITTY protocol on 03/16 (dinner time) with TPN. However, this did not go well. She is now doing meals and feeds in her room but continues to take very little PO and is receiving full nutrition needs from TPN. Working on slowly advancing gavage feeds with ultimate goal of weaning off TPN when able. Plan: [facility]: Echo was ordered (02/08) due to persistent tachycardia and showed decreased LV mass (z-score -2.4), likely from malnutrition; normal biventricular size and systolic function. EKG on 03/19 showed sinus tachycardia. Repeat echo on 03/21 with normal systolic function but still decreased LV mass. - CR monitors, VS q8hr, strict I/Os, daily weights and orthostatics FEN/GI: NJ tube placed 02/02 and removed on 02/28/20 due to it clogging; ND (but still past SMA) placed on 03/02/2020. ND displaced on 03/07/2020. NJ replaced on 03/11/20. Brain MRI (03/11) was normal ruling out any neurological factors contributing to continuous nausea. NJ displaced on 03/13/20 and has since been tolerating placement of NG tubes for gavage and overnight feedings. -Continue TPN at 80ml/hr and lipids at 17ml/hr -Continue Jevity, per Dr Sierra -Overnight feeds 03/22: Jevity 1.2 run at 30 mL/hr x 10 hours (8pm-6am) -200 kcal at (breakfast, lunch, and dinner) - Replace all uneaten meals and snacks with Ensure. Give 15 minutes to drink. If does not drink, gavage remainder (over 1-2 hours depending on volume; no greater than 70 mL/hr at one time, as this is the largest previously tolerated volume) - Nexium 20 mg BID, Vit D; Periactin 4 mg with breakfast and 8 mg with dinner - Neurontin 600 mg TID - Bowel regimen- lactulose 20 g via enteral tube qD - Daily weights. goal for gaining 200-300 g/day - Okay to space morning meds to help with nausea/vomiting - Per discussion with multi-disciplinary team, Marlee may eat in her room during mealtimes, only if there is an inability to supervise meals. HEME/ONC: Mircocytic anemia 2/2 malnutrition. Iron studies from 02/27/20-Iron 66, TIBC 323, Iron % Sat 20, and transferrin 258. Iron Dextran 62.5 mg on 02/14/20. ENDO: TSH 0.13 (L) and all other labs were normal on 02/17/2020(obtained due to persistent Tachycardia and BP issues; most likely 2/2 to eating disorder). Repeat TSH and T4 normal on 03/15/2020. Lab schedule: CMP, Mg, Phos, Triglycerides: Tues, Thurs, Sun evening Spec grav: daily Assessment & Plan (03/22/2020 12:20 PM LITHOGRAPHIC GENERAL WORKER): Assessment: Marlee is a 19 year old with history of constipation, anxiety, and depression admitted for dehydration and functional pain with restrictive eating patterns related to anxiety. Adolescent medicine was consulted and is following. 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 NJ tube was placed on 02/02 by IR due to inability to tolerate feeds with NG and ND. PICC line placed on 02/08. NJ was removed on 02/27/19 due to becoming non-functional. ND placed on 03/02/20 with displacement on 03/07/20 after a bout of emesis. GI was consulted due to persistent vomiting; IBD was ruled out as fecal calprotectin was normal. Surgery was consulted (03/08/20) as pt had minimal improvement with tolerance of oral intake with the enteral tube. Upper GI series (03/09) was completed revealing no concern for obstruction. NJ was replaced on 03/11/20 and displaced on 03/13 after a bout of emesis. She also obtained brain MRI on 03/11 to rule out any other neurological causes of her nausea; MRI was normal. Pt started KITTY protocol on 03/16 (dinner time) with TPN. However, this did not go well. She is now doing meals and feeds in her room. Working on advancing gavage feeds. Plan: [facility]: Echo was ordered (02/08) due to persistent tachycardia and showed decreased LV mass (z-score -2.4), likely from malnutrition; normal biventricular size and systolic function. EKG on 2/6 showed sinus tachycardia. Repeat echo on 03/21 with normal systolic function but still decreased LV mass. - CR monitors, VS q8hr, strict I/Os, daily weights and orthostatics FEN/GI: NJ tube placed 02/02 and removed on 02/28/20 due to it clogging; ND (but still past SMA) placed on 03/02/2020. ND displaced on 03/07/2020. NJ replaced on 03/11/20. Brain MRI (03/11) was normal ruling out any neurological factors contributing to continuous nausea. NJ displaced on 03/13/20 and has since been tolerating placement of NG tubes for gavage and overnight feedings. -Continue TPN at 80ml/hr and lipids at 17ml/hr -Continue Jevity, per Dr Sierra -Overnight feeds 03/22: Jevity 1.2 run at 30 mL/hr x 10 hours (8pm-6am) -Increase from 150 to 200 kcal at (breakfast, lunch, and dinner) - Replace all uneaten meals and snacks with Ensure. Give 15 minutes to drink. If does not drink, gavage remainder (over 1-2 hours depending on volume; no greater than 70 mL/hr at one time, as this is the largest previously tolerated volume) - Nexium 20 mg BID, Vit D; Periactin 4 mg with breakfast and 8 mg with dinner - Neurontin 600 mg TID - Bowel regimen- lactulose 20 g via enteral tube qD - Daily weights. goal for gaining 200-300 g/day - Okay to space morning meds to help with nausea/vomiting - Per discussion with multi-disciplinary team, Marlee may eat in her room during mealtimes, only if there is an inability to supervise meals. HEME/ONC: Mircocytic anemia 2/2 malnutrition. Iron studies from 02/27/20-Iron 66, TIBC 323, Iron % Sat 20, and transferrin 258. Iron Dextran 62.5 mg on 02/14/20. ENDO: TSH 0.13 (L) and all other labs were normal on 02/17/2020(obtained due to persistent Tachycardia and BP issues; most likely 2/2 to eating disorder). Repeat TSH and T4 normal on 03/15/2020. Lab schedule: CMP, Mg, Phos, Triglycerides: Tues, Thurs, Sun evening Spec grav: daily Assessment & Plan (03/21/2020 3:10 PM LITHOGRAPHIC GENERAL WORKER): Assessment: Marlee is a 19 year old with history of constipation, anxiety, and depression admitted for dehydration and functional pain with restrictive eating patterns related to anxiety. Adolescent medicine was consulted and is following. 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 NJ tube was placed on 02/02 by IR due to inability to tolerate feeds with NG and ND. PICC line placed on 02/08. NJ was removed on 02/27/19 due to becoming non-functional. ND placed on 03/02/20 with displacement on 03/07/20 after a bout of emesis. GI was consulted due to persistent vomiting; IBD was ruled out as fecal calprotectin was normal. Surgery was consulted (03/08/20) as pt had minimal improvement with tolerance of oral intake with the enteral tube. Upper GI series (03/09) was completed revealing no concern for obstruction. NJ was replaced on 03/11/20 and displaced on 03/13 after a bout of emesis. She also obtained brain MRI on 03/11 to rule out any other neurological causes of her nausea; MRI was normal. Pt started KITTY protocol on 03/16 (dinner time) with TPN. However, this did not go well. She is now doing meals and feeds in her room. Keeping calories and fluids the same over the weekend. Plan: [facility]: Echo was ordered (02/08) due to persistent tachycardia and showed decreased LV mass (z-score -2.4), likely from malnutrition; normal biventricular size and systolic function. EKG on 03/19 showed sinus tachycardia. - CR monitors, VS q8hr, strict I/Os, daily weights and orthostatics - Repeat Echocardiogram today FEN/GI: NJ tube placed 02/02 and removed on 02/28/20 due to it clogging; ND (but still past SMA) placed on 03/02/2020. ND displaced on 03/07/2020. NJ replaced on 03/11/20. Brain MRI (03/11) was normal ruling out any neurological factors contributing to continuous nausea. NJ displaced on 03/13/20. -Continue TPN at 80 ml/hr and lipids at 17 ml/hr - consider weaning 03/22 -Continue overnight trickle feeds of Ensure from 8 PM to 6 AM - increase per nutrition recs -Increase from 150 to 200 kcal at (breakfast, lunch, and dinner) - Replace all uneaten meals and snacks with Ensure. Give 15 minutes to drink. If does not drink, gavage remainder (over 1-2 hours depending on volume; no greater than 70 mL/hr at one time, as this is the largest previously tolerated volume) - Nexium 20 mg BID, Vit D; Periactin 4 mg with breakfast and 8 mg with dinner - Neurontin 600 mg TID - Bowel regimen- lactulose 20 g via enteral tube qD - Daily weights. goal for gaining 200-300 g/day - Labs CMP, Mg, Phos, Trigylcerides 3 times weekly (, , Sat) - Okay to space morning meds to help with nausea/vomiting - Per discussion with multi-disciplinary team, Marlee may eat in her room during mealtimes, only if there is an inability to supervise meals. HEME/ONC: Mircocytic anemia 2/2 malnutrition. Iron studies from 02/27/20-Iron 66, TIBC 323, Iron % Sat 20, and transferrin 258. Iron Dextran 62.5 mg on 02/14/20. ENDO: TSH 0.13 (L) and all other labs were normal on 02/17/2020(obtained due to persistent Tachycardia and BP issues; most likely 2/2 to eating disorder). Repeat TSH and T4 normal on 03/15/2020. Assessment & Plan (03/20/2020 10:32 AM LITHOGRAPHIC GENERAL WORKER): Assessment: Marlee is a 19 year old with history of constipation, anxiety, and depression admitted for dehydration and functional pain with restrictive eating patterns related to anxiety. Adolescent medicine was consulted and is following. 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 NJ tube was placed on 02/02 by IR due to inability to tolerate feeds with NG and ND. PICC line placed on 02/08. NJ was removed on 02/27/19 due to becoming non-functional. ND placed on 03/02/20 with displacement on 03/07/20 after a bout of emesis. GI was consulted due to persistent vomiting; IBD was ruled out as fecal calprotectin was normal. Surgery was consulted (03/08/20) as pt had minimal improvement with tolerance of oral intake with the enteral tube. Upper GI series (03/09) was completed revealing no concern for obstruction. NJ was replaced on 03/11/20 and displaced on 03/13 after a bout of emesis. She also obtained brain MRI on 03/11 to rule out any other neurological causes of her nausea; MRI was normal. Pt started KITTY protocol on 03/16 (dinner time) with TPN. However, this did not go well. She is now doing meals and feeds in her room. Keeping calories and fluids the same over the weekend. Plan: [facility]: Echo was ordered (02/08) due to persistent tachycardia and showed decreased LV mass (z-score -2.4), likely from malnutrition; normal biventricular size and systolic function. EKG on 03/19 showed sinus tachycardia. - CR monitors, VS q8hr, strict I/Os, daily weights and orthostatics - Repeat Echocardiogram on Tuesday 03/21 FEN/GI: NJ tube placed 02/02 and removed on 02/28/20 due to it clogging; ND (but still past SMA) placed on 03/02/2020. ND displaced on 03/07/2020. NJ replaced on 03/11/20. Brain MRI (03/11) was normal ruling out any neurological factors contributing to continuous nausea. NJ displaced on 03/13/20. -Continue TPN at 80 ml/hr and lipids at 17 ml/hr until 03/21 -Continue overnight trickle feeds of 10 ml/hr Ensure from 8 PM to 6 AM until 03/21 -Continue with 150 kcal at (breakfast, lunch, and dinner) - Replace all uneaten meals and snacks with Ensure. Give 15 minutes to drink. If does not drink, gavage remainder (over 1-2 hours depending on volume; no greater than 70 mL/hr at one time, as this is the largest previously tolerated volume) - Nexium 20 mg BID, Vit D; Periactin 4 mg with breakfast and 8 mg with dinner - Neurontin 600 mg TID - Bowel regimen- lactulose 20 g via enteral tube BID --> decrease to daily - Daily weights. goal for gaining 200-300 g/day - Labs CMP, Mg, Phos, Trigylcerides 3 times weekly (Tues, Thurs, Sun) - Okay to space morning meds to help with nausea/vomiting HEME/ONC: Mircocytic anemia 2/2 malnutrition. Iron studies from 02/27/20-Iron 66, TIBC 323, Iron % Sat 20, and transferrin 258. Iron Dextran 62.5 mg on 02/14/20. ENDO: TSH 0.13 (L) and all other labs were normal on 02/17/2020(obtained due to persistent Tachycardia and BP issues; most likely 2/2 to eating disorder). Repeat TSH and T4 normal on 03/15/2020. Assessment & Plan (03/19/2020 10:37 AM LITHOGRAPHIC GENERAL WORKER): Assessment: Marlee is a 19 year old with history of constipation, anxiety, and depression admitted for dehydration and functional pain with restrictive eating patterns related to anxiety. Adolescent medicine was consulted and is following. 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 NJ tube was placed on 02/02 by IR due to inability to tolerate feeds with NG and ND. PICC line placed on 02/08. NJ was removed on 02/27/19 due to becoming non-functional. ND placed on 03/02/20 with displacement on 03/07/20 after a bout of emesis. GI was consulted due to persistent vomiting; IBD was ruled out as fecal calprotectin was normal. Surgery was consulted (03/08/20) as pt had minimal improvement with tolerance of oral intake with the enteral tube. Upper GI series (03/09) was completed revealing no concern for obstruction. NJ was replaced on 03/11/20 and displaced on 03/13 after a bout of emesis. She also obtained brain MRI on 03/11 to rule out any other neurological causes of her nausea; MRI was normal. Pt started KITTY protocol on 03/16 (dinner time) with TPN. However, this did not go well. She is now doing meals and feeds in her room. Plan: [facility]: Echo was ordered (02/08) due to persistent tachycardia and showed decreased LV mass (z-score -2.4), likely from malnutrition; normal biventricular size and systolic function. - CR monitors, VS q8hr, strict I/Os, daily weights and orthostatics - Repeat Echocardiogram FEN/GI: NJ tube placed 02/02 and removed on 02/28/20 due to it clogging; ND (but still past SMA) placed on 03/02/2020. ND displaced on 03/07/2020. NJ replaced on 03/11/20. Brain MRI (03/11) was normal ruling out any neurological factors contributing to continuous nausea. NJ displaced on 03/13/20. -Continue TPN at 80 ml/hr and lipids at 17 ml/hr until 03/21 -Continue overnight trickle feeds of 10 ml/hr Ensure from 8 PM to 6 AM until 03/21 -Continue with 150 kcal at (breakfast, lunch, and dinner) - Replace all uneaten meals and snacks with Ensure. Give 15 minutes to drink. If does not drink, gavage remainder (over 1-2 hours depending on volume; no greater than 70 mL/hr at one time, as this is the largest previously tolerated volume) - Nexium 20 mg BID, Vit D; Periactin 4 mg with breakfast and 8 mg with dinner - Neurontin 600 mg TID - Bowel regimen- lactulose 20 g via enteral tube BID - Daily weights. goal for gaining 200-300 g/day - Labs CMP, Mg, Phos, Trigylcerides 3 times weekly (Tues, Thurs, Sun) - Small NS bolus 10 ml/kg today HEME/ONC: Mircocytic anemia 2/2 malnutrition. Iron studies from 02/27/20-Iron 66, TIBC 323, Iron % Sat 20, and transferrin 258. Iron Dextran 62.5 mg on 02/14/20. ENDO: TSH 0.13 (L) and all other labs were normal on 02/17/2020(obtained due to persistent Tachycardia and BP issues; most likely 2/2 to eating disorder). Repeat TSH and T4 normal on 03/15/2020. Assessment & Plan (03/18/2020 1:00 PM LITHOGRAPHIC GENERAL WORKER): Assessment: Marlee is a 19 year old with history of constipation, anxiety, and depression admitted for dehydration and functional pain with restrictive eating patterns related to anxiety. Adolescent medicine was consulted and is following. 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 NJ tube was placed on 02/02 by IR due to inability to tolerate feeds with NG and ND. PICC line placed on 02/08. NJ was removed on 02/27/19 due to becoming non-functional. ND placed on 03/02/20 with displacement on 03/07/20 after a bout of emesis. GI was consulted due to persistent vomiting; IBD was ruled out as fecal calprotectin was normal. Surgery was consulted (03/08/20) as pt had minimal improvement with tolerance of oral intake with the enteral tube. Upper GI series (03/09) was completed revealing no concern for obstruction. NJ was replaced on 03/11/20 and displaced on 03/13 after a bout of emesis. She also obtained brain MRI on 03/11 to rule out any other neurological causes of her nausea; MRI was normal. Pt started KITTY protocol on 03/16 (dinner time) with TPN. Plan: [facility]: Echo was ordered (02/08) due to persistent tachycardia and showed decreased LV mass (z-score -2.4), likely from malnutrition; normal biventricular size and systolic function. - CR monitors, VS q8hr, strict I/Os, daily weights and orthostatics FEN/GI: NJ tube placed 02/02 and removed on 02/28/20 due to it clogging; ND (but still past SMA) placed on 03/02/2020. ND displaced on 03/07/2020. NJ replaced on 03/11/20. Brain MRI (03/11) was normal ruling out any neurological factors contributing to continuous nausea. NJ displaced on 03/13/20. - Enteral feeds: Continue TPN at 80 ml/hr and lipids at 17 ml/hr; adjustments will be made pending nutrition recommendations------potentially pt may start continuous overnight feeds via NG - Continue KITTY protocol-150 kcal at (breakfast, lunch, and dinner) - Replace all uneaten meals and snacks with Ensure. Give 15 minutes to drink. If does not drink, gavage remainder (over 1-2 hours depending on volume; no greater than 70 mL/hr at one time, as this is the largest previously tolerated volume) - Nexium 20 mg BID, Vit D; Periactin 4 mg with breakfast and 8 mg with dinner - Neurontin 600 mg TID - Bowel regimen- lactulose 20 g via enteral tube BID - Daily weights. goal for gaining 200-300 g/day - Labs CMP, Mg, Phos, Trigylcerides 3 times weekly (Tues, Thurs, Sun) HEME/ONC: Mircocytic anemia 2/2 malnutrition. Iron studies from 02/27/20-Iron 66, TIBC 323, Iron % Sat 20, and transferrin 258. Iron Dextran 62.5 mg on 02/14/20. ENDO: TSH 0.13 (L) and all other labs were normal (-obtained due to persistent Tachycardia and BP issues; most likely 2/2 to eating disorder). Repeat TSH and T4 normal on 03/15/2020. Assessment & Plan (03/17/2020 10:36 AM LITHOGRAPHIC GENERAL WORKER): Assessment: Marlee is a 19 year old with history of constipation, anxiety, and depression admitted for dehydration and functional pain with restrictive eating patterns related to anxiety. Adolescent medicine was consulted and is following. 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 NJ tube was placed on 02/02 by IR due to inability to tolerate feeds with NG and ND. PICC line placed on 02/08. NJ was removed on 02/27/19 due to becoming non-functional. ND placed on 03/02/20 with displacement on 03/07/20 after a bout of emesis. GI was consulted due to persistent vomiting; IBD was ruled out as fecal calprotectin was normal. Surgery was consulted (03/08/20) as pt had minimal improvement with tolerance of oral intake with the enteral tube. Upper GI series (03/09) was completed revealing no concern for obstruction. NJ was replaced on 03/11/20 and displaced on 03/13 after a bout of emesis. She also obtained brain MRI on 03/11 to rule out any other neurological causes of her nausea; MRI was normal. Plan: [facility]: Echo was ordered (02/08) due to persistent tachycardia and showed decreased LV mass (z-score -2.4), likely from malnutrition; normal biventricular size and systolic function. - CR monitors, VS q8hr, strict I/Os, daily weights and orthostatics FEN/GI: NJ tube placed 02/02 and removed on 02/28/20 due to it clogging; ND (but still past SMA) placed on 03/02/2020. ND displaced on 03/07/2020. NJ replaced on 03/11/20. Brain MRI (03/11) was normal ruling out any neurological factors contributing to continuous nausea. NJ displaced on 03/13/20. - Enteral feeds: continue TPN at 80 ml/hr and lipids at 17 ml/hr - Continue KITTY protocol-150 kcal at (breakfast, lunch, and dinner) - Replace all uneaten meals and snacks with Ensure. Give 15 minutes to drink. If does not drink, gavage remainder (over 1-2 hours depending on volume; no greater than 70 mL/hr at one time, as this is the largest previously tolerated volume) - Nexium 20 mg BID, Vit D; Periactin 4 mg with breakfast and 8 mg with dinner - Neurontin 300 mg TID; dosage adjustment pending further recommendations from psychiatry - Discontinued erythromycin 3 mg/kg Q6H - Bowel regimen- lactulose 20 mg QD - Daily weights. goal for gaining 200-300 g/day - Labs CMP, Mg, Phos, Trigylcerides 3 times weekly (Tues, Thurs, Sun) HEME/ONC: Mircocytic anemia 2/2 malnutrition. Iron studies from 02/27/20-Iron 66, TIBC 323, Iron % Sat 20, and transferrin 258. Iron Dextran 62.5 mg on 02/14/20. ENDO: TSH 0.13 (L) and all other labs were normal (-obtained due to persistent Tachycardia and BP issues; most likely 2/2 to eating disorder). Repeat TSH and T4 normal on 03/15/2020. Assessment & Plan (03/16/2020 2:10 PM LITHOGRAPHIC GENERAL WORKER): Assessment: Marlee is a 19 year old with history of constipation, anxiety, and depression admitted for dehydration and functional pain with restrictive eating patterns related to anxiety. Adolescent medicine was consulted and is following. 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 NJ tube was placed on 02/02 by IR due to inability to tolerate feeds with NG and ND. PICC line placed on 02/08. NJ was removed on 02/27/19 due to becoming non-functional. ND placed on 03/02/20 with displacement on 03/07/20 after a bout of emesis. GI was consulted due to persistent vomiting; IBD was ruled out as fecal calprotectin was normal. Surgery was consulted (03/08/20) as pt had minimal improvement with tolerance of oral intake with the enteral tube. Upper GI series (03/09) was completed revealing no concern for obstruction. NJ was replaced on 03/11/20 and displaced on 03/13 after a bout of emesis. She also obtained brain MRI on 03/12 to rule out any other neurological causes of her nausea; MRI was normal. Plan: [facility]: Echo was ordered (02/08) due to persistent tachycardia and showed decreased LV mass (z-score -2.4), likely from malnutrition; normal biventricular size and systolic function. - CR monitors, VS q8hr, strict I/Os, daily weights and orthostatics FEN/GI: NJ tube placed 02/02 and removed on 02/28/20 due to it clogging; ND (but still past SMA) placed on 03/02/2020. ND displaced on 03/07/2020. NJ replaced on 03/11/20. Brain MRI (03/11) was normal ruling out any neurological factors contributing to continuous nausea. NJ displaced on 03/13/20. - Enteral feeds: continue TPN at 80 ml/hr and lipids at 17 ml/hr - Start KITTY protocol at dinner time-150 calories with placement of NG as needed - Nexium 20 mg BID, Vit D; Periactin 4 mg with breakfast and 8 mg with dinner - Neurontin 300 mg TID - Erythromycin 3 mg/kg Q6H - Bowel regimen- lactulose 20 mg QD - Daily weights. goal for gaining 200-300 g/day - Labs CMP, Mg, Phos, Trigylcerides 3 times weekly (Tues, Thurs, Sun) HEME/ONC: Mircocytic anemia 2/2 malnutrition. Iron studies from 02/27/20-Iron 66, TIBC 323, Iron % Sat 20, and transferrin 258. Iron Dextran 62.5 mg on 02/14/20. ENDO: TSH 0.13 (L) and all other labs were normal (-obtained due to persistent Tachycardia and BP issues; most likely 2/2 to eating disorder). Repeat TSH and T4 normal on 03/15/2020. Assessment & Plan (03/15/2020 11:10 AM LITHOGRAPHIC GENERAL WORKER): Assessment: Marlee is a 19 year old with history of constipation, anxiety, and depression admitted for dehydration and functional pain with restrictive eating patterns related to anxiety. Adolescent medicine was consulted and is following. 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 NJ tube was placed on 02/02 by IR due to inability to tolerate feeds with NG and ND. PICC line placed on 02/08. NJ was removed on 02/27/19 due to becoming non-functional. ND placed on 03/02/20 with displacement on 03/07/20 after a bout of emesis. GI was consulted due to persistent vomiting; IBD was ruled out as fecal calprotectin was normal. Surgery was consulted (03/08/20) as pt had minimal improvement with tolerance of oral intake with the enteral tube. Upper GI series (03/09) was completed revealing no concern for obstruction. NJ was replaced on 03/11/20 and displaced on 03/13 after a bout of emesis. She also obtained brain MRI on 03/12 to rule out any other neurological causes of her nausea; MRI was normal. Plan: [facility]: Echo was ordered (02/08) due to persistent tachycardia and showed decreased LV mass (z-score -2.4), likely from malnutrition; normal biventricular size and systolic function. - CR monitors, VS q8hr, strict I/Os, daily weights and orthostatics FEN/GI: NJ tube placed 02/02 and removed on 02/28/20 due to it clogging; ND (but still past SMA) placed on 03/02/2020. ND displaced on 03/07/2020. NJ replaced on 03/11/20. Brain MRI (03/11) was normal ruling out any neurological factors contributing to continuous nausea. NJ displaced on 03/13/20. - Enteral feeds: maximize TPN pending nutrition recommendations - Consider PO trial with determination of additional intervention on Saturday; surgery may be consulted again at that time - Nexium 20 mg BID, Vit D; Periactin 4 mg with breakfast and 8 mg with dinner - Neurontin 300 mg BID - Erythromycin 3 mg/kg Q6H - Bowel regimen- lactulose 20 mg QD - Daily weights. goal for gaining 200-300 g/day - Labs CMP, Mg, Phos, Trigylcerides 3 times weekly (es, Th, Sun) HEME/ONC: Mircocytic anemia 2/2 malnutrition. Iron studies from 02/27/20-Iron 66, TIBC 323, Iron % Sat 20, and transferrin 258. Iron Dextran 62.5 mg on 02/14/20. ENDO: TSH 0.13 (L) and all other labs were normal (-obtained due to persistent Tachycardia and BP issues; most likely 2/2 to eating disorder) -Repeat TSH and T4 on 03/15/2020 Assessment & Plan (03/14/2020 9:53 AM LITHOGRAPHIC GENERAL WORKER): Assessment: Marlee is a 19 year old with history of constipation, anxiety, and depression admitted for dehydration and functional pain with restrictive eating patterns related to anxiety. Adolescent medicine was consulted and is following. 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 NJ tube was placed on 02/02 by IR due to inability to tolerate feeds with NG and ND. PICC line placed on 02/08. NJ was removed on 02/27/19 due to becoming non-functional. ND placed on 03/02/20 with displacement on 03/07/20 after a bout of emesis. GI was consulted due to persistent vomiting; IBD was ruled out as fecal calprotectin was normal. Surgery was consulted (03/08/20) as pt had minimal improvement with tolerance of oral intake with the enteral tube. Upper GI series (03/09) was completed revealing no concern for obstruction. NJ was replaced on 03/11/20 and displaced on 03/13 after a bout of emesis. She also obtained brain MRI on 03/12 to rule out any other neurological causes of her nausea; MRI was normal. Plan: CVS: Echo was ordered (02/08) due to persistent tachycardia and showed decreased LV mass (z-score -2.4), likely from malnutrition; normal biventricular size and systolic function. - CR monitors, VS q8hr, strict I/Os, daily weights and orthostatics FEN/GI: NJ tube placed 02/02 and removed on 02/28/20 due to it clogging; ND (but still past SMA) placed on 03/02/2020. ND displaced on 03/07/2020. NJ replaced on 03/11/20. Brain MRI (03/11) was normal ruling out any neurological factors contributing to continuous nausea. NJ displaced on 03/13/20. - Enteral feeds: maximize TPN pending nutrition recommendations - Consider PO trial with determination of additional intervention on Saturday; surgery may be consulted again at that time - Nexium 20 mg BID, Vit D; Periactin 4 mg with breakfast and 8 mg with dinner - Neurontin 300 mg BID - Erythromycin 3 mg/kg Q6H - Bowel regimen- lactulose 20 mg QD - Daily weights. goal for gaining 200-300 g/day - Labs CMP, Mg, Phos, Trigylcerides 3 times weekly (, Th, Sun) HEME/ONC: Mircocytic anemia 2/2 malnutrition. Iron studies from 02/27/20-Iron 66, TIBC 323, Iron % Sat 20, and transferrin 258. Iron Dextran 62.5 mg on 02/14/20. ENDO: TSH 0.13 (L) and all other labs were normal (-obtained due to persistent Tachycardia and BP issues; most likely 2/2 to eating disorder) -Repeat TSH and T4 on 03/15/2020 Assessment & Plan (03/13/2020 9:39 AM LITHOGRAPHIC GENERAL WORKER): Assessment: Marlee is a 19 year old with history of constipation, anxiety, and depression admitted for dehydration and functional pain with restrictive eating patterns related to anxiety. Adolescent medicine was consulted and is following. 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 NJ tube was placed on 02/02 by IR due to inability to tolerate feeds with NG and ND. PICC line placed on 02/08. NJ was removed on 02/27/19 due to becoming non-functional. ND placed on 03/02/20 with displacement on 03/07/20 after a bout of emesis. GI was consulted due to persistent vomiting; IBD was ruled out as fecal calprotectin was normal. Surgery was consulted (03/08/20) as pt had minimal improvement with tolerance of oral intake with the enteral tube. Upper GI series (03/09) was completed revealing no concern for obstruction. NJ was replaced on 03/11/20. She also obtained brain MRI on 03/12 to rule out any other neurological causes of her nausea; MRI was normal. Plan: CVS: Echo was ordered (02/08) due to persistent tachycardia and showed decreased LV mass (z-score -2.4), likely from malnutrition; normal biventricular size and systolic function. - CR monitors, VS q8hr, strict I/Os, daily weights and orthostatics FEN/GI: NJ tube placed 02/02 and removed on 02/28/20 due to it clogging; ND (but still past SMA) placed on 03/02/2020. ND displaced on 03/07/2020. NJ replaced on 03/11. Brain MRI (03/11) was normal ruling out any neurological factors contributing to continuous nausea. - Enteral feeds: Increased enteral to 55 ml/hr and decreased TPN to 40 ml/hr; lipids 4 ml/hr - Nexium 20 mg BID, Vit D; Periactin 4 mg with breakfast and 8 mg with dinner - Neurontin 300 mg BID - Erythromycin 5 mg/kg Q6H - Bowel regimen- lactulose 20 mg QD - Daily weights. goal for gaining 200-300 g/day - Labs CMP, Mg, Phos, Trigylcerides 3 times weekly (Tues, Thurs, Sun) HEME/ONC: Mircocytic anemia 2/2 malnutrition. Iron studies from 02/27/20-Iron 66, TIBC 323, Iron % Sat 20, and transferrin 258. Iron Dextran 62.5 mg on 02/14/20. ENDO: TSH 0.13 (L) and all other labs were normal (-obtained due to persistent Tachycardia and BP issues; most likely 2/2 to eating disorder) -Repeat TSH and T4 next week Assessment & Plan (03/12/2020 11:35 AM LITHOGRAPHIC GENERAL WORKER): Assessment: Marlee is a 19 year old with history of constipation, anxiety, and depression admitted for dehydration and functional pain with restrictive eating patterns related to anxiety. Adolescent medicine was consulted and is following. 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 NJ tube was placed on 02/02 by IR due to inability to tolerate feeds with NG and ND. PICC line placed on 02/08. NJ was removed on 02/27/19 due to becoming non-functional. ND placed on 03/02/20 with displacement on 03/07/20 after a bout of emesis. GI was consulted due to persistent vomiting; IBD was ruled out as fecal calprotectin was normal. Surgery was consulted (03/08/20) as pt had minimal improvement with tolerance of oral intake with the enteral tube. Upper GI series (03/09) was completed revealing no concern for obstruction. NJ was replaced on 03/11/20. She also obtained brain MRI on 03/12 to rule out any other neurological causes of her nausea; MRI was normal. Plan: CVS: Echo was ordered (02/08) due to persistent tachycardia and showed decreased LV mass (z-score -2.4), likely from malnutrition; normal biventricular size and systolic function. - CR monitors, VS q8hr, strict I/Os, daily weights and orthostatics FEN/GI: NJ tube placed 02/02 and removed on 02/28/20 due to it clogging; ND (but still past SMA) placed on 03/02/2020. ND displaced on 03/07/2020. NJ replaced on 03/11. Brain MRI (03/11) was normal ruling out any neurological factors contributing to continuous nausea. - Enteral feeds:enteral 45 ml/hr and TPN 50 ml/hr; lipids 4 ml/hr - Nexium 20 mg BID, Vit D; Periactin 4 mg with breakfast and 8 mg with dinner - Increased neurontin 300 mg QHS to 300 mg BID - Erythromycin 5 mg/kg Q6H - Bowel regimen- lactulose 20 mg QD - Daily weights. goal for gaining 200-300 g/day - Labs CMP, Mg, Phos, Trigylcerides 3 times weekly (, Th, Sun) HEME/ONC: Mircocytic anemia 2/2 malnutrition. Iron studies from 02/27/20-Iron 66, TIBC 323, Iron % Sat 20, and transferrin 258. Iron Dextran 62.5 mg on 02/14/20. ENDO: TSH 0.13 (L) and all other labs were normal (-obtained due to persistent Tachycardia and BP issues; most likely 2/2 to eating disorder) -Repeat TSH and T4 next week Assessment & Plan (03/11/2020 12:43 PM LITHOGRAPHIC GENERAL WORKER): Assessment: Marlee is a 19 year old with history of constipation, anxiety, and depression admitted for dehydration and functional pain with restrictive eating patterns related to anxiety. Adolescent medicine was consulted and is following. 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 NJ tube was placed on 02/02 by IR due to inability to tolerate feeds with NG and ND. PICC line placed on 02/08. NJ was removed on 02/27/19 due to becoming non-functional. ND placed on 03/02/20 with displacement on 03/07/20 after a bout of emesis. GI was consulted due to persistent vomiting; IBD was ruled out as fecal calprotectin was normal. Surgery was consulted (03/08/20) as pt had minimal improvement with tolerance of oral intake with the enteral tube. Upper GI series (03/09) was completed revealing no concern for obstruction. Plan: CVS: Echo was ordered (02/08) due to persistent tachycardia and showed decreased LV mass (z-score -2.4), likely from malnutrition; normal biventricular size and systolic function. - CR monitors, VS q8hr, strict I/Os, daily weights and orthostatics FEN/GI: NJ tube placed 02/02 and removed on 02/28/20 due to it clogging; ND (but still past SMA) placed on 03/02/2020. ND displaced on 03/07/2020. - NJ placement --03/11 - Brain MRI--03/11 - Enteral feeds:TPN 70 ml/hr and lipids to 16 ml/hr - After NJ placement, enteral 45 ml/hr and TPN 70 ml/hr; lipids 4 ml/hr - Nexium 20 mg BID, Vit D; Periactin 4 mg with breakfast and 8 mg with dinner - Start neurontin 300 mg QHS - Erythromycin 5 mg/kg Q6H - Bowel regimen- lactulose 20 mg QD - Daily weights. goal for gaining 200-300 g/day - Labs CMP, Mg, Phos, Trigylcerides 3 times weekly (Tues, Thurs, Sun) HEME/ONC: Mircocytic anemia 2/2 malnutrition. Iron studies from 02/27/20-Iron 66, TIBC 323, Iron % Sat 20, and transferrin 258. Iron Dextran 62.5 mg on 02/14/20. ENDO: TSH 0.13 (L) and all other labs were normal (-obtained due to persistent Tachycardia and BP issues; most likely 2/2 to eating disorder) -Repeat TSH and T4 next week Assessment & Plan (03/10/2020 9:12 AM LITHOGRAPHIC GENERAL WORKER): Assessment: Marlee is a 19 year old with history of constipation, anxiety, and depression admitted for dehydration and functional pain with restrictive eating patterns related to anxiety. Adolescent medicine was consulted and is following. 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 NJ tube was placed on 02/02 by IR due to inability to tolerate feeds with NG and ND. PICC line placed on 02/08. NJ was removed on 02/27/19 due to becoming non-functional. ND placed on 03/02/20 with displacement on 03/07/20 after a bout of emesis. GI was consulted due to persistent vomiting; IBD was ruled out as fecal calprotectin was normal. Surgery was consulted (03/08/20) as pt had minimal improvement with tolerance of oral intake with the enteral tube. Upper GI series (03/09) was completed revealing no concern for obstruction. Plan: CVS: Echo was ordered (02/08) due to persistent tachycardia and showed decreased LV mass (z-score -2.4), likely from malnutrition; normal biventricular size and systolic function. - CR monitors, VS q8hr, strict I/Os, daily weights and orthostatics FEN/GI: NJ tube placed 02/02 and removed on 02/28/20 due to it clogging; ND (but still past SMA) placed on 03/02/2020. ND displaced on 03/07/2020. - NJ placement --03/11 - Brain MRI--03/11 - Enteral feeds:TPN 70 ml/hr and lipids to 16 ml/hr - Nexium 20 mg BID, Vit D; Periactin 4 mg with breakfast and 8 mg with dinner - Erythromycin 5 mg/kg Q6H - Bowel regimen- lactulose 20 mg QD - Daily weights. goal for gaining 200-300 g/day - Labs CMP, Mg, Phos, Trigylcerides 3 times weekly (Tues, Thurs, Sun) HEME/ONC: Mircocytic anemia 2/2 malnutrition. Iron studies from 02/27/20-Iron 66, TIBC 323, Iron % Sat 20, and transferrin 258. Iron Dextran 62.5 mg on 02/14/20. ENDO: TSH 0.13 (L) and all other labs were normal (-obtained due to persistent Tachycardia and BP issues; most likely 2/2 to eating disorder) - Consider Repeat TSH and Free T4 in Assessment & Plan (03/09/2020 10:22 AM LITHOGRAPHIC GENERAL WORKER): Assessment: Marlee is a 19 year old with history of constipation, anxiety, and depression admitted for dehydration and functional pain with restrictive eating patterns related to anxiety. Adolescent medicine was consulted and is following. 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 NJ tube was placed on 02/02 by IR due to inability to tolerate feeds with NG and ND. PICC line placed on 02/08. NJ was removed on 02/27/19 due to becoming non-functional. ND placed on 03/02/20. Echo was ordered (02/08) due to persistent tachycardia and showed decreased LV mass (z-score -2.4), likely from malnutrition; normal biventricular size and systolic function. Urine metanephrines and catecholamines were obtained as pt had persistent tachycardia and HTN, which resolved. Results were negative. GI was consulted due to persistent vomiting; IBD was ruled out as fecal calprotectin was WBL. She has BEVERLY 2/2 malnutrition and was provided IV iron (last given on 02/14/20- Iron Dextran 62.5 mg) due to inability to tolerate PO iron. Pt had hot flashes and thyroid labs were reassuring: TSH 0.13 (low) and T4/T3/ thyroid stimulating microglobulin were all normal. Plan: CVS: - CR monitors, VS q8hr, strict I/Os, daily weights and orthostatics FEN/GI: NJ tube placed 02/02 and removed on 02/28/20 due to it clogging; ND (but still past SMA) placed on 03/02/2020. ND displaced on 03/07/2020. - Upper GI series w/ fluoroscopy today ; NG placed before imaging - Brain MRI --03/10 - Replacement of NJ (pending upper GI series results) --03/10 - Enteral feeds: Increase TPN to 70 ml/hr and lipids to 16 ml/hr - Nexium 20 mg BID, Vit D; Periactin 4 mg with breakfast and 8 mg with dinner - Stop reglan - Erythromycin 5 mg/kg Q6H - Bowel regimen- lactulose 20 mg QD - EKG - Daily weights. goal for gaining 200-300 g/day - Labs CMP, Mg, Phos, Trigylcerides 3 times weekly (Tues, Thurs, Sun) HEME/ONC: Mircocytic anemia 2/2 malnutrition. Iron studies from 02/27/20-Iron 66, TIBC 323, Iron % Sat 20, and transferrin 258. Iron Dextran 62.5 mg on 02/14/20. ENDO: TSH 0.13 (L) and all other labs were normal (-obtained due to persistent Tachycardia and BP issues; most likely 2/2 to eating disorder) - Consider Repeat TSH and Free T4 in Assessment & Plan (03/08/2020 10:52 AM LITHOGRAPHIC GENERAL WORKER): Assessment: Marlee is a 19 year old with history of constipation, anxiety, and depression admitted for dehydration and functional pain with restrictive eating patterns related to anxiety. Adolescent medicine was consulted and is following. 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 NJ tube was placed on 02/02 by IR due to inability to tolerate feeds with NG and ND. PICC line placed on 02/08. NJ was removed on 02/27/19 due to becoming non-functional. ND placed on 03/02/20. Echo was ordered due to persistent tachycardia and showed decreased LV mass (z-score -2.4), likely from malnutrition; normal biventricular size and systolic function. Urine metanephrines and catecholamines were obtained as pt had persistent tachycardia and HTN, which resolved. Results were negative. GI was consulted due to persistent vomiting; IBD was ruled out as fecal calprotectin was WBL. She has BEVERLY 2/2 malnutrition and was provided IV iron (last given on 02/14/20- Iron Dextran 62.5 mg) due to inability to tolerate PO iron. Pt had hot flashes and thyroid labs were reassuring: TSH 0.13 (low) and T4/T3/ thyroid stimulating microglobulin were all normal. Plan: CVS: - CR monitors, VS q8hr, strict I/Os, daily weights and orthostatics FEN/GI: NJ tube placed 02/02 and removed on 02/28/20 due to it clogging; ND (but still past SMA) placed on 03/02/2020. ND displaced on 03/07/2020. - Replacement of ND scheduled for 03/09/2020 - Enteral feeds: Increase TPN to 70 ml/hr and lipids to 16 ml/hr - Nexium 20 mg BID, Vit D; Periactin 4 mg with breakfast and 8 mg with dinner - Wean reglan to 5 mg BID - Consult GI for recommendations about continuous nausea/emesis and additional therapeutic options for SMA Syndrome - Will consider surgery consult tomorrow for evaluation of g-tube placement - Bowel regimen- lactulose 20 mg QD - Daily weights. goal for gaining 200-300 g/day - Labs CMP, Mg, Phos, Trigylcerides 3 times weekly (Tues, Thurs, Sun) HEME/ONC: Mircocytic anemia 2/2 malnutrition. Iron studies from 02/27/20-Iron 66, TIBC 323, Iron % Sat 20, and transferrin 258. Iron Dextran 62.5 mg on 02/14/20. ENDO: TSH 0.13 (L) and all other labs were normal (-obtained due to persistent Tachycardia and BP issues; most likely 2/2 to eating disorder) - Consider Repeat TSH and Free T4 in Assessment & Plan (03/07/2020 9:18 AM LITHOGRAPHIC GENERAL WORKER): Assessment: Marlee is a 19 year old with history of constipation, anxiety, and depression admitted for dehydration and functional pain with restrictive eating patterns related to anxiety. Adolescent medicine was consulted and is following. 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 NJ tube was placed on 02/02 by IR due to inability to tolerate feeds with NG and ND. PICC line placed on 02/08. NJ was removed on 02/27/19 due to becoming non-functional. ND placed on 03/02/20. Echo was ordered due to persistent tachycardia and showed decreased LV mass (z-score -2.4), likely from malnutrition; normal biventricular size and systolic function. Urine metanephrines and catecholamines were obtained as pt had persistent tachycardia and HTN, which resolved. Results were negative. GI was consulted due to persistent vomiting; IBD was ruled out as fecal calprotectin was WBL. She has BEVERLY 2/2 malnutrition and was provided IV iron (last given on 02/14/20- Iron Dextran 62.5 mg) due to inability to tolerate PO iron. Pt had hot flashes and thyroid labs were reassuring: TSH 0.13 (low) and T4/T3/ thyroid stimulating microglobulin were all normal. Plan: CVS: - CR monitors, VS q8hr, strict I/Os, daily weights and orthostatics FEN/GI: NJ tube placed 02/02 and removed on 02/28/20 due to it clogging; ND (but still past SMA) placed on 03/02/2020. - Enteral feeds: Jevity 1.0 40 ml/hr; TPN 60 ml/hr + lipid 12 ml/hr; adjustments pending nutrition recommendations - Pt will start eating in the room this afternoon per ; nutrition recommendations appreciated - Nexium 20 mg BID, Vit D; Periactin 4 mg with breakfast and 8 mg with dinner - Bowel regimen- senna 17.2 mg QD discontinued, lactulose 20 mg QD - Daily weights. goal for gaining 200-300 g/day - Labs CMP, Mg, Phos, Trigylcerides 3 times weekly (Tues, Thurs, Sun) HEME/ONC: Mircocytic anemia 2/2 malnutrition. Iron studies from 02/27/20-Iron 66, TIBC 323, Iron % Sat 20, and transferrin 258. Iron Dextran 62.5 mg on 02/14/20. ENDO: TSH 0.13 (L) and all other labs were normal (-obtained due to persistent Tachycardia and BP issues; most likely 2/2 to eating disorder) - Consider Repeat TSH and Free T4 in Assessment & Plan (03/06/2020 10:09 AM LITHOGRAPHIC GENERAL WORKER): Assessment: Marlee is a 19 year old with history of constipation, anxiety, and depression admitted for dehydration and functional pain with restrictive eating patterns related to anxiety. Adolescent medicine was consulted and is following. 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 NJ tube was placed on 02/02 by IR due to inability to tolerate feeds with NG and ND. PICC line placed on 02/08. NJ was removed on 02/27/19 due to becoming non-functional. ND placed on 03/02/20. Echo was ordered due to persistent tachycardia and showed decreased LV mass (z-score -2.4), likely from malnutrition; normal biventricular size and systolic function. Urine metanephrines and catecholamines were obtained as pt had persistent tachycardia and HTN, which resolved. Results were negative. GI was consulted due to persistent vomiting; IBD was ruled out as fecal calprotectin was WBL. She has BEVERLY 2/2 malnutrition and was provided IV iron (last given on 02/14/20- Iron Dextran 62.5 mg) due to inability to tolerate PO iron. Pt had hot flashes and thyroid labs were reassuring: TSH 0.13 (low) and T4/T3/ thyroid stimulating microglobulin were all normal. Plan: CVS: - CR monitors, VS q8hr, strict I/Os, daily weights and orthostatics FEN/GI: - NJ tube placed 02/02 and removed on 02/28/20 due to it clogging; ND (but still past SMA) placed on 03/02/2020 - Enteral feeds: Jevity 1.0 30 ml/hr; TPN 60 ml/hr + lipid 16 ml/hr; adjustments pending nutrition recommendations - Nexium 20 mg BID, Vit D; Periactin 4 mg with breakfast and 8 mg with dinner - Bowel regimen- senna 17.2 mg QD - Lactulose 20 mg QD - Daily weights. goal for gaining 200-300 g/day - Labs CMP, Mg, Phos, Trigylcerides 3 times weekly (Tues, Thurs, Sun) HEME/ONC: Mircocytic anemia 2/2 malnutrition. Iron studies from 02/27/20-Iron 66, TIBC 323, Iron % Sat 20, and transferrin 258. Iron Dextran 62.5 mg on 02/14/20. ENDO: TSH 0.13 (L) and all other labs were normal (-obtained due to persistent Tachycardia and BP issues; most likely 2/2 to eating disorder) - Consider Repeat TSH and Free T4 in Assessment & Plan (03/05/2020 9:56 AM LITHOGRAPHIC GENERAL WORKER): Assessment: Marlee is a 19 year old with history of constipation, anxiety, and depression admitted for dehydration and functional pain with restrictive eating patterns related to anxiety. Adolescent medicine was consulted and is following. 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 NJ tube was placed on 02/02 by IR due to inability to tolerate feeds with NG and ND. PICC line placed on 02/08. NJ was removed on 02/27/19 due to becoming non-functional. ND placed on 03/02/20. Echo was ordered due to persistent tachycardia and showed decreased LV mass (z-score -2.4), likely from malnutrition; normal biventricular size and systolic function. Urine metanephrines and catecholamines were obtained as pt had persistent tachycardia and HTN, which resolved. Results were negative. GI was consulted due to persistent vomiting; IBD was ruled out as fecal calprotectin was WBL. She has BEVERLY 2/2 malnutrition and was provided IV iron (last given on 02/14/20- Iron Dextran 62.5 mg) due to inability to tolerate PO iron. Pt had hot flashes and thyroid labs were reassuring: TSH 0.13 (low) and T4/T3/ thyroid stimulating microglobulin were all normal. Plan: CVS: - CR monitors, VS q8hr, strict I/Os, daily weights and orthostatics FEN/GI: - NJ tube placed 02/02 and removed on 02/28/20 due to it clogging; ND (but still past SMA) placed on 03/02/2020 - Enteral feeds: Jevity 1.0 30 ml/hr; TPN 60 ml/hr + lipid 16 ml/hr; potentially will adjust rates after speaking with - Nexium 20 mg BID, Vit D; Periactin 4 mg with breakfast and 8 mg with dinner - Bowel regimen- senna 17.2 mg QD, miralax discontinued - Start lactulose 20 mg BID - Daily weights. goal for gaining 200-300 g/day - Labs CMP, Mg, Phos, Trigylcerides 3 times weekly (Tues, Thurs, Sun) HEME/ONC: Mircocytic anemia 2/2 malnutrition. Iron studies from 02/27/20-Iron 66, TIBC 323, Iron % Sat 20, and transferrin 258. Iron Dextran 62.5 mg on 02/14/20. ENDO: TSH 0.13 (L) and all other labs were normal (-obtained due to persistent Tachycardia and BP issues; most likely 2/2 to eating disorder) - Consider Repeat TSH and Free T4 in Assessment & Plan (03/04/2020 12:58 PM LITHOGRAPHIC GENERAL WORKER): Assessment: Marlee is a 19 year old with history of constipation, anxiety, and depression admitted for dehydration and functional pain with restrictive eating patterns related to anxiety. Adolescent medicine was consulted and is following. 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 NJ tube was placed on 02/02 by IR due to inability to tolerate feeds with NG and ND. PICC line placed on 02/08. NJ was removed on 02/27/19 due to becoming non-functional. ND placed on 03/02/20. Echo was ordered due to persistent tachycardia and showed decreased LV mass (z-score -2.4), likely from malnutrition; normal biventricular size and systolic function. Urine metanephrines and catecholamines were obtained as pt had persistent tachycardia and HTN, which resolved. Results were negative. GI was consulted due to persistent vomiting; IBD was ruled out as fecal calprotectin was WBL. She has BEVERLY 2/2 malnutrition and was provided IV iron (last given on 02/14/20- Iron Dextran 62.5 mg) due to inability to tolerate PO iron. Pt had hot flashes and thyroid labs were reassuring: TSH 0.13 (low) and T4/T3/ thyroid stimulating microglobulin were all normal. Plan: CVS: - dc clonidine - CR monitors, VS q8hr, strict I/Os, daily weights and orthostatics RESP: Stable on Room air FEN/GI: - NJ tube placed 02/02 and removed on 02/28/20 due to it clogging; ND placed on 03/02/2020 - Enteral feeds: Jevity 1.0 30 ml/hr; TPN 60 ml/hr + lipid 16 ml/hr - Nexium 20 mg BID, Vit D; Periactin 4 mg with breakfast and 8 mg with dinner - Bowel regimen- senna 17.2 mg QD, miralax BID - Daily weights. goal for gaining 200-300 g/day - Labs CMP, Mg, Phos, Trigylcerides 3 times weekly (Tues, Thurs, Sun) ID: No concerns for infection at this time HEME/ONC: Mircocytic anemia 2/2 malnutrition. Iron studies from 02/27/20-Iron 66, TIBC 323, Iron % Sat 20, and transferrin 258. Iron Dextran 62.5 mg on 02/14/20. ENDO: TSH 0.13 (L) and all other labs were normal (-obtained due to persistent Tachycardia and BP issues; most likely 2/2 to eating disorder) - Consider Repeat TSH and Free T4 in NEURO: - Atarax 25 mg TID for anxiety - Tylenol and Ibuprofen PRN for pain - Melatonin 6 mg for sleep PSYCH/SOCIAL: -See anxiety and depression A/P Assessment & Plan (03/03/2020 3:15 PM LITHOGRAPHIC GENERAL WORKER): Assessment: Marlee is a 19 year old with history of constipation, anxiety, and depression admitted for dehydration and functional pain with restrictive eating patterns related to anxiety. Adolescent medicine was consulted and is following. 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 NJ tube was placed on 02/02 by IR due to inability to tolerate feeds with NG and ND. PICC line placed on 02/08. NJ was removed on 02/27/19 due to becoming non-functional. ND placed on 03/02/20. Echo was ordered due to persistent tachycardia and showed decreased LV mass (z-score -2.4), likely from malnutrition; normal biventricular size and systolic function. Urine metanephrines and catecholamines were obtained as pt had persistent tachycardia and HTN, which resolved. Results were negative. GI was consulted due to persistent vomiting; IBD was ruled out as fecal calprotectin was WBL. She has BEVERLY 2/2 malnutrition and was provided IV iron (last given on 02/14/20- Iron Dextran 62.5 mg) due to inability to tolerate PO iron. Pt had hot flashes and thyroid labs were reassuring: TSH 0.13 (low) and T4/T3/ thyroid stimulating microglobulin were all normal. Plan: CVS: - clonidine 0.1 mg QHS, hold for systolic BP <130 - CR monitors, VS q8hr, strict I/Os, daily weights and orthostatics RESP: Stable on Room air FEN/GI: - NJ tube placed 02/02 and removed on 02/28/20 due to it clogging; ND placed on 03/02/2020 -Enteral feeds: Jevity 1.0 30 ml/hr; TPN 60 ml/hr + lipid 16 ml/hr - Start daily multivitamin - Nexium 20 mg BID, Vit D; Periactin 4 mg with breakfast and 8 mg with dinner - Bowel regimen- senna 17.2 mg QD - Daily weights. goal for gaining 200-300 g/day - Labs CMP, Mg, Phos, Trigylcerides 3 times weekly (Tues, Thurs, Sun) ID: No concerns for infection at this time HEME/ONC: Mircocytic anemia 2/2 malnutrition. Iron studies from 02/27/20-Iron 66, TIBC 323, Iron % Sat 20, and transferrin 258. Iron Dextran 62.5 mg on 02/14/20. ENDO: TSH 0.13 (L) and all other labs were normal (-obtained due to persistent Tachycardia and BP issues; most likely 2/2 to eating disorder) - Consider Repeat TSH and Free T4 in NEURO: - Atarax 25 mg TID for anxiety - Tylenol and Ibuprofen PRN for pain - Melatonin 6 mg for sleep PSYCH/SOCIAL: -See anxiety and depression A/P Assessment & Plan (03/02/2020 12:06 PM LITHOGRAPHIC GENERAL WORKER): Assessment: Marlee is a 19 year old with history of constipation, anxiety, and depression admitted for dehydration and functional pain with restrictive eating patterns related to anxiety. Adolescent medicine was consulted and is following. 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 NJ tube was placed on 02/02 by IR due to inability to tolerate feeds with NG and ND. NJ was removed on 02/27/19 due to becoming non-functional. PICC line placed on 02/08. Echo was ordered due to persistent tachycardia and showed decreased LV mass (z-score -2.4), likely from malnutrition; normal biventricular size and systolic function. Urine metanephrines and catecholamines were obtained as pt had persistent tachycardia and HTN, which resolved. Results were negative. GI was consulted due to persistent vomiting; IBD was ruled out as fecal calprotectin was WBL. She has BEVERLY 2/2 malnutrition and was provided IV iron (last given on 02/14/20- Iron Dextran 62.5 mg) due to inability to tolerate PO iron. Pt had hot flashes and thyroid labs were reassuring: TSH 0.13 (low) and T4/T3/ thyroid stimulating microglobulin were all normal. Plan: CVS: - clonidine 0.1 mg QHS, hold for systolic BP <130 - CR monitors, VS q8hr, strict I/Os, daily weights and orthostatics RESP: Stable on Room air FEN/GI: - NJ tube placed 02/02 and removed on 02/28/20 due to it clogging; NJ placement today - Waiting nutrition's recommendation for enteral feeds and TPN following procedure - Nexium 20 mg BID, Vit D; Periactin 4 mg with breakfast and 8 mg with dinner - Bowel regimen- senna 17.2 mg QD - Daily weights. goal for gaining 200-300 g/day - Labs CMP, Mg, Phos, Trigylcerides 3 times weekly (, , Sun) ID: No concerns for infection at this time HEME/ONC: Mircocytic anemia 2/2 malnutrition. Iron studies from 02/27/20-Iron 66, TIBC 323, Iron % Sat 20, and transferrin 258. Iron Dextran 62.5 mg on 02/14/20. ENDO: TSH 0.13 (L) and all other labs were normal (-obtained due to persistent Tachycardia and BP issues; most likely 2/2 to eating disorder) - Consider Repeat TSH and Free T4 in NEURO: - Atarax 25 mg TID for anxiety - Tylenol and Ibuprofen PRN for pain - Melatonin 6 mg for sleep PSYCH/SOCIAL: -See anxiety and depression A/P Assessment & Plan (03/01/2020 12:05 PM LITHOGRAPHIC GENERAL WORKER): Assessment: Marlee is a 19 year old with history of constipation, anxiety, and depression admitted for dehydration and functional pain with restrictive eating patterns related to anxiety. Adolescent medicine was consulted and is following. 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 NJ tube was placed on 02/02 by IR due to inability to tolerate feeds with NG and ND. NJ was removed on 02/27/19 due to it being clogged. PICC line placed on 02/08. Echo was ordered due to persistent tachycardia and showed decreased LV mass (z-score -2.4), likely from malnutrition; normal biventricular size and systolic function. Urine metanephrines and catecholamines were obtained as pt had persistent tachycardia and HTN, which resolved. Results were negative. GI was consulted due to persistent vomiting; IBD was ruled out as fecal calprotectin was WBL. She has BEVERLY 2/2 malnutrition and was provided IV iron (last given on 02/14/20- Iron Dextran 62.5 mg) due to inability to tolerate PO iron. Pt had hot flashes and thyroid labs were reassuring: TSH 0.13 (low) and T4/T3/ thyroid stimulating microglobulin were all normal. Plan: CVS: - clonidine 0.1 mg QHS, hold for systolic BP <130 - CR monitors, VS q8hr, strict I/Os, daily weights and orthostatics RESP: Stable on Room air FEN/GI: - NJ tube placed 02/02 and removed on 02/28/20 due to it clogging; scheduled for NJ replacement by IR on 03/02/2020 -Sedation team consulted for procedure - Continue TPN at 90 ml/hr - Nexium 20 mg BID, Vit D; Periactin 4 mg with breakfast and 8 mg with dinner - Bowel regimen- senna 17.2 mg QD - Daily weights. goal for gaining 200-300 g/day - Labs CMP, Mg, Phos, Trigylcerides 3 times weekly (Tues, Thurs, Sun) ID: No concerns for infection at this time HEME/ONC: Mircocytic anemia 2/2 malnutrition. Iron studies from 02/27/20-Iron 66, TIBC 323, Iron % Sat 20, and transferrin 258. Iron Dextran 62.5 mg on 02/14/20. ENDO: TSH 0.13 (L) and all other labs were normal (-obtained due to persistent Tachycardia and BP issues; most likely 2/2 to eating disorder) - Consider Repeat TSH and Free T4 in NEURO: - Atarax 25 mg TID for anxiety - Tylenol and Ibuprofen PRN for pain - Melatonin 6 mg for sleep PSYCH/SOCIAL: -See anxiety and depression A/P Assessment & Plan (02/29/2020 12:52 PM LITHOGRAPHIC GENERAL WORKER): Assessment: Marlee is a 19 year old with history of constipation, anxiety, and depression admitted for dehydration and functional pain with restrictive eating patterns related to anxiety. Adolescent medicine was consulted and is following. 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 NJ tube was placed on 02/02 by IR due to inability to tolerate feeds with NG and ND. NJ was removed on 02/27/19 due to it being clogged. PICC line placed on 02/08. Echo was ordered due to persistent tachycardia and showed decreased LV mass (z-score -2.4), likely from malnutrition; normal biventricular size and systolic function. Urine metanephrines and catecholamines were obtained as pt had persistent tachycardia and HTN, which resolved. Results were negative. GI was consulted due to persistent vomiting; IBD was ruled out as fecal calprotectin was WBL. She has BEVERLY 2/2 malnutrition and was provided IV iron (last given on 02/14/20- Iron Dextran 62.5 mg) due to inability to tolerate PO iron. Pt had hot flashes and thyroid labs were reassuring: TSH 0.13 (low) and T4/T3/ thyroid stimulating microglobulin were all normal. Plan: CVS: - clonidine 0.1 mg QHS, hold for systolic BP <130 - CR monitors, VS q8hr, strict I/Os, daily weights and orthostatics RESP: Stable on Room air FEN/GI: - NJ tube placed 02/02 and removed on 02/28/20 due to it clogging - Continue TPN at 90 ml/hr - CT angio abdomen for evaluation of SMA - Nexium 20 mg BID, Vit D; Periactin 4 mg with breakfast and 8 mg with dinner - Bowel regimen- senna 17.2 mg QD - Daily weights. goal for gaining 200-300 g/day - Labs CMP, Mg, Phos, Trigylcerides today and 3 times weekly (, , Sun) ID: No concerns for infection at this time HEME/ONC: Mircocytic anemia 2/2 malnutrition. Iron studies from 02/27/20-Iron 66, TIBC 323, Iron % Sat 20, and transferrin 258. Iron Dextran 62.5 mg on 02/14/20. ENDO: TSH 0.13 (L) and all other labs were normal (-obtained due to persistent Tachycardia and BP issues; most likely 2/2 to eating disorder) - Consider Repeat TSH and Free T4 in NEURO: - Atarax 25 mg TID for anxiety - Tylenol and Ibuprofen PRN for pain - Melatonin 6 mg for sleep PSYCH/SOCIAL: -See anxiety and depression A/P Assessment & Plan (02/28/2020 9:12 AM LITHOGRAPHIC GENERAL WORKER): Assessment: Marlee is a 19 year old with history of constipation, anxiety, and depression admitted for dehydration and functional pain with restrictive eating patterns related to anxiety. Adolescent medicine was consulted and is following. 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 NJ tube was placed on 02/02 by IR due to inability to tolerate feeds with NG and ND. PICC line placed on 02/08. Echo was ordered due to persistent tachycardia and showed decreased LV mass (z-score -2.4), likely from malnutrition; normal biventricular size and systolic function. Urine metanephrines and catecholamines were obtained as pt had persistent tachycardia and HTN, which resolved. Results were negative. GI was consulted due to persistent vomiting; IBD was ruled out as fecal calprotectin was WBL. She has BEVERLY 2/2 malnutrition and was provided IV iron (last given on 02/14/20- Iron Dextran 62.5 mg) due to inability to tolerate PO iron. Pt had hot flashes and thyroid labs were reassuring: TSH 0.13 (low) and T4/T3/ thyroid stimulating microglobulin were all normal. Plan: CVS: - clonidine 0.1 mg QHS, hold for systolic BP <130 - CR monitors, VS q8hr, strict I/Os, daily weights and orthostatics - urine metanephrines and urine catecholamines negative RESP: Stable on Room air FEN/GI: - One time NS bolus - NJ tube placed 02/02 - If tube is displaced, will attempt to replace if possible; can use IV benadryl, intranasal versed, or oral versed. If not possible to replace tube, will continue TPN - Enteral feeds (Jevity 60 ml/hr) stopped due to NJ being clogged - TPN rate will be maximized due to non-functioning NJ; pending nutrition recommendations -Previous rate on 02/27/20 -----TPN 50 ml/hr+ lipids at 12 mL/hr + MVI at 10 mL/hr - 1 g NaCl TID added to TPN starting 02/22/20 - Nexium 20 mg BID, Vit D; Periactin 4 mg with breakfast and 8 mg with dinner - Bowel regimen- senna 17.2 mg QD - Daily weights. goal for gaining 200-300 g/day - Labs CMP, Mg, Phos, Trigylcerides 3 times weekly (Tu, Th, Sun) ID: No concerns for infection at this time HEME/ONC: Mircocytic anemia 2/2 malnutrition. Iron studies from 02/27/20-Iron 66, TIBC 323, Iron % Sat 20, and transferrin 258. Iron Dextran 62.5 mg on 02/14/20. ENDO: TSH 0.13 (L) and all other labs were normal (-obtained due to persistent Tachycardia and BP issues; most likely 2/2 to eating disorder) - Consider Repeat TSH and Free T4 in NEURO: - Atarax 25 mg TID for anxiety - Tylenol and Ibuprofen PRN for pain - Melatonin 6 mg for sleep PSYCH/SOCIAL: -See anxiety and depression A/P Assessment & Plan (02/27/2020 10:03 AM LITHOGRAPHIC GENERAL WORKER): Assessment: Marlee is a 19 year old with history of constipation, anxiety, and depression admitted for dehydration and functional pain with restrictive eating patterns related to anxiety. Adolescent medicine was consulted and is following. 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 NJ tube was placed on 02/02 by IR due to inability to tolerate feeds with NG and ND. NJ was not flushing on 02/23/20 after lactulose ,but it was resolved with creon. PICC line placed on 02/08. Echo was ordered due to persistent tachycardia and showed decreased LV mass (z-score -2.4), likely from malnutrition; normal biventricular size and systolic function. Urine metanephrines and catecholamines were obtained as pt had persistent tachycardia and HTN, which has now resolved. Results were negative. GI was consulted due to persistent vomiting; IBD was ruled out as fecal calprotectin was WBL. She has BEVERLY 2/2 malnutrition and was provided IV iron (last given on 02/14/20- Iron Dextran 62.5 mg) due to inability to tolerate PO iron. Pt had hot flashes and thyroid labs were reassuring: TSH 0.13 (low) and T4/T3/ thyroid stimulating microglobulin were all normal. Plan: CVS: - EKG - clonidine 0.1 mg QHS, hold for systolic BP <130 - CR monitors, VS q8hr, strict I/Os, daily weights and orthostatics - urine metanephrines and urine catecholamines negative RESP: Stable on Room air FEN/GI: - NPO due to emesis - NJ tube placed 02/02 - If tube is displaced, will attempt to replace if possible; can use IV benadryl, intranasal versed, or oral versed - If not possible to replace tube, will continue TPN - Enteral feeds Jevity 60 ml/hr - TPN 50 ml/hr-----lipids at 12 mL/hr + MVI at 10 mL/hr - 1 g NaCl TID added to TPN starting 02/22/20 - Nexium 20 mg BID, Vit D; Periactin 4 mg with breakfast and 8 mg with dinner - Bowel regimen- senna 17.2 mg QD - Daily weights. goal for gaining 200-300 g/day - Labs CMP, Mg, Phos, Trigylcerides 3 times weekly (, Th, Sat) ID: No concerns for infection at this time HEME/ONC: Mircocytic anemia 2/2 malnutrition - Iron studies 02/27/20 pending - Iron Dextran 62.5 mg on 02/14/20; consider weekly dose ENDO: TSH 0.13 (L) and all other labs were normal (-obtained due to persistent Tachycardia and BP issues; most likely 2/2 to eating disorder) - Consider Repeat TSH and Free T4 in NEURO: - atarax 25 mg TID for anxiety - Tylenol and Ibuprofen PRN for pain - Melatonin 6 mg for sleep - Physical Therapy PSYCH/SOCIAL: -See anxiety and depression A/P Assessment & Plan (02/26/2020 11:12 AM LITHOGRAPHIC GENERAL WORKER): Assessment: Marlee is a 19 year old with history of constipation, anxiety, and depression admitted for dehydration and functional pain with restrictive eating patterns related to anxiety. Adolescent medicine was consulted and is following. 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 NJ tube was placed on 02/02 by IR due to inability to tolerate feeds with NG and ND. NJ was not flushing on 02/23/20 after lactulose ,but it was resolved with creon. PICC line placed on 02/08. Echo was ordered due to persistent tachycardia and showed decreased LV mass (z-score -2.4), likely from malnutrition; normal biventricular size and systolic function. Urine metanephrines and catecholamines were obtained as pt had persistent tachycardia and HTN, which has now resolved. GI was consulted due to persistent vomiting; IBD was ruled out as fecal calprotectin was WBL. She has BEVERLY 2/2 malnutrition and was provided IV iron (last given on 02/14/20- Iron Dextran 62.5 mg) due to inability to tolerate PO iron. Pt had hot flashes and thyroid labs were reassuring: TSH 0.13 (low) and T4/T3/ thyroid stimulating microglobulin were all normal. Plan: CVS: - urine metanephrines and urine catecholamines pending - clonidine 0.1 mg QHS, hold for systolic BP <130 - CR monitors, VS q8hr, strict I/Os, daily weights and orthostatics RESP: Stable on Room air FEN/GI: - NJ tube placed 02/02 - If tube is displaced, will attempt to replace if possible; can use IV benadryl, intranasal versed, or oral versed - If not possible to replace tube, will continue TPN - Enteral feeds Jevity 60 ml/hr - TPN 40 ml/hr --> 30 ml/hr at 1700 -----lipids at 12 mL/hr + MVI at 10 mL/hr - 1 g NaCl TID added to TPN starting 02/22/20 -one time IV bolus - 9 oz per shift between cool water (no ice) and sprite--no more than 4 oz of Sprite per shift, 2 packs of crackers/goldfish, 2 peppermints per shift - Nexium 20 mg BID, Vit D; Periactin 4 mg with breakfast and 8 mg with dinner - Bowel regimen- senna 17.2 mg QD, discontinue miralax - Daily weights. goal for gaining 200-300 g/day - Labs CMP, Mg, Phos, Trigylcerides 3 times weekly (Tues, Th, Sat) ID: No concerns for infection at this time HEME/ONC: Mircocytic anemia 2/2 malnutrition - Iron studies 02/27/20 - Iron Dextran 62.5 mg on 02/14/20; consider weekly dose ENDO: TSH 0.13 (L) and all other labs were normal (-obtained due to persistent Tachycardia and BP issues; most likely 2/2 to eating disorder) - Consider Repeat TSH and Free T4 in NEURO: - Tylenol and Ibuprofen PRN for pain - Melatonin 6 mg for sleep - Physical Therapy PSYCH/SOCIAL: -See anxiety and depression A/P Assessment & Plan (02/25/2020 9:32 AM LITHOGRAPHIC GENERAL WORKER): Assessment: Marlee is a 19 year old with history of constipation, anxiety, and depression admitted for dehydration and functional pain with restrictive eating patterns related to anxiety. Adolescent medicine was consulted and is following. 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 NJ tube was placed on 02/02 by IR due to inability to tolerate feeds with NG and ND. NJ was not flushing on 02/23/20 after lactulose ,but it was resolved with creon. PICC line placed on 02/08. Echo was ordered due to persistent tachycardia and showed decreased LV mass (z-score -2.4), likely from malnutrition; normal biventricular size and systolic function. Urine metanephrines and catecholamines were obtained as pt had persistent tachycardia and HTN, which has now resolved. GI was consulted due to persistent vomiting; IBD was ruled out as fecal calprotectin was WBL. She has BEVERLY 2/2 malnutrition and was provided IV iron (last given on 02/14/20- Iron Dextran 62.5 mg) due to inability to tolerate PO iron. Pt had hot flashes and thyroid labs were reassuring: TSH 0.13 (low) and T4/T3/ thyroid stimulating microglobulin were all normal. Plan: CVS: - urine metanephrines and urine catecholamines pending - clonidine 0.1 mg QHS, hold for systolic BP <130 - CR monitors, VS q8hr, strict I/Os, daily weights and orthostatics RESP: Stable on Room air FEN/GI: - NJ tube placed 02/02 - If tube is displaced, will attempt to replace if possible; can use IV benadryl, intranasal versed, or oral versed - If not possible to replace tube, will continue TPN - Enteral feeds Jevity 60 ml/hr - TPN 40 ml/hr --> 30 ml/hr at 1700 -----lipids at 12 mL/hr + MVI at 10 mL/hr - 1 g NaCl TID added to TPN starting 02/22/20 - 9 oz per shift between cool water (no ice) and sprite--no more than 4 oz of Sprite per shift, 2 packs of crackers/goldfish, 2 peppermints per shift - Nexium 20 mg BID, Vit D; Periactin 4 mg with breakfast and 8 mg with dinner - KUB: evaluate stool burden - Bowel regimen- senna 17.2 mg BID and miralax 17 g BID - Daily weights. goal for gaining 200-300 g/day - Labs CMP, Mg, Phos, Trigylcerides 3 times weekly (Tu, Th, Sat) ID: No concerns for infection at this time HEME/ONC: Mircocytic anemia 2/2 malnutrition - Iron studies - Iron Dextran 62.5 mg on 02/14/20; consider weekly dose ENDO: TSH 0.13 (L) and all other labs were normal (-obtained due to persistent Tachycardia and BP issues; most likely 2/2 to eating disorder) - Consider Repeat TSH and Free T4 in NEURO: - Tylenol and Ibuprofen PRN for pain - Melatonin 6 mg for sleep - Physical Therapy PSYCH/SOCIAL: -See anxiety and depression A/P Assessment & Plan (02/24/2020 10:42 AM LITHOGRAPHIC GENERAL WORKER): Assessment: Marlee is a 19 year old with history of constipation, anxiety, and depression admitted for dehydration and functional pain with restrictive eating patterns related to anxiety. Adolescent medicine was consulted and is following. 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 NJ tube was placed on 02/02 by IR due to inability to tolerate feeds with NG and ND. NJ was not flushing on 02/23/20 after lactulose ,but it was resolved with creon. PICC line placed on 02/08. Echo was ordered due to persistent tachycardia and showed decreased LV mass (z-score -2.4), likely from malnutrition; normal biventricular size and systolic function. Urine metanephrines and catecholamines were obtained as pt had persistent tachycardia and HTN, which has now resolved. GI was consulted due to persistent vomiting; IBD was ruled out as fecal calprotectin was WBL. She has BEVERLY 2/2 malnutrition and was provided IV iron (last given on 02/14/20- Iron Dextran 62.5 mg) due to inability to tolerate PO iron. Pt had hot flashes and thyroid labs were reassuring: TSH 0.13 (low) and T4/T3/ thyroid stimulating microglobulin were all normal. Plan: CVS: - urine metanephrines and urine catecholamines pending - clonidine 0.1 mg QHS, hold for systolic BP <130 - CR monitors, VS q8hr, strict I/Os, daily weights and orthostatics RESP: Stable on Room air FEN/GI: - NJ tube placed 02/02 - If tube is displaced, will attempt to replace if possible; can use IV benadryl, intranasal versed, or oral versed - If not possible to replace tube, will continue TPN - Enteral feeds 60 ml/hr (switch from Nutren to Jevity for increased fiber) - TPN 40 ml/hr ------lipids at 12 mL/hr + MVI at 10 mL/hr - 1 g NaCl TID added to TPN starting 02/22/20 - 9 oz per shift between cool water (no ice) and sprite--no more than 4 oz of Sprite per shift, 2 packs of crackers/goldfish, 2 peppermints per shift - Nexium 20 mg BID, Vit D; Periactin 4 mg with breakfast and 8 mg with dinner - Senna 10 mL once - Daily weights. 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 - Iron studies on 02/25/20 - Iron Dextran 62.5 mg on 02/14/20; consider weekly dose ENDO: TSH 0.13 (L) and all other labs were normal (-obtained due to persistent Tachycardia and BP issues; most likely 2/2 to eating disorder - Consider Repeat TSH and Free T4 in NEURO: - Tylenol and Ibuprofen PRN for pain - Melatonin 6 mg for sleep - Physical Therapy PSYCH/SOCIAL: -See anxiety and depression A/P Assessment & Plan (02/23/2020 10:22 AM LITHOGRAPHIC GENERAL WORKER): Assessment: Marlee is a 19 year old with history of constipation, anxiety, and depression admitted for dehydration and functional pain with restrictive eating patterns related to anxiety. Adolescent medicine was consulted and is following. 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 NJ tube was placed on 02/02 by IR due to inability to tolerate feeds with NG and ND. PICC line placed on 02/08. Echo was ordered due to persistent tachycardia and showed decreased LV mass (z-score -2.4), likely from malnutrition; normal biventricular size and systolic function. Urine metanephrines and catecholamines were obtained as pt had persistent tachycardia and HTN, which has now resolved. GI was consulted due to persistent vomiting; IBD was ruled out as fecal calprotectin was WBL. She has BEVERLY 2/2 malnutrition and was provided IV iron (last given on 02/14/20- Iron Dextran 62.5 mg) due to inability to tolerate PO iron. Pt had hot flashes and thyroid labs were reassuring: TSH 0.13 (low) and T4/T3/ thyroid stimulating microglobulin were all normal. Plan: CVS: - urine metanephrines and urine catecholamines pending - clonidine 0.1 mg QHS, hold for systolic BP <130 - CR monitors, VS q8hr, strict I/Os, daily weights and orthostatics RESP: Stable on Room air FEN/GI: - NJ tube placed 02/02 - If tube is displaced, will attempt to replace if possible; can use IV benadryl, intranasal versed, or oral versed - If not possible to replace tube, will continue TPN - Increase enteral feeds 50 ml/hr --> 60 ml/hr - Decrease TPN 50 ml/hr ---> 40 ml/hr------lipids at 12 mL/hr + MVI at 10 mL/hr - 1 g NaCl TID added to TPN on 02/22/20 - Nexium 20 mg BID, Vit D; Periactin 4 mg with breakfast and 8 mg with dinner - 9 oz per shift between cool water (no ice) and sprite--no more than 4 oz of Sprite per shift, allowing crackers, 2 peppermints per shift - Increase lactulose to 10 mg w/ 20-30 mL daily - Daily weights. goal for gaining 200-300 g/day - Labs CMP, Mg, Phos, Trigylcerides 3 times weekly (Tu, Th, Sat) ID: No concerns for infection at this time HEME/ONC: Mircocytic anemia 2/2 malnutrition - Iron Dextran 62.5 mg on 02/14/20; consider weekly dose. Plan to obtain iron studies ~ 03/14/20 ENDO: TSH 0.13 (L) and all other labs were normal (-obtained due to persistent Tachycardia and BP issues; most likely 2/2 to eating disorder - Consider Repeat TSH and Free T4 in NEURO: - Tylenol and Ibuprofen PRN for pain - Melatonin 6 mg for sleep - Physical Therapy PSYCH/SOCIAL: -See anxiety and depression A/P Assessment & Plan (02/22/2020 11:25 AM LITHOGRAPHIC GENERAL WORKER): Assessment: Marlee is a 19 year old with history of constipation, anxiety, and depression admitted for dehydration and functional pain with restrictive eating patterns related to anxiety. Adolescent medicine was consulted and is following. 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 NJ tube was placed on 02/02 by IR due to inability to tolerate feeds with NG and ND. PICC line placed on 02/08. Echo was ordered due to persistent tachycardia and showed decreased LV mass (z-score -2.4), likely from malnutrition; normal biventricular size and systolic function. Urine metanephrines and catecholamines were obtained as pt had persistent tachycardia and HTN, which has now resolved. GI was consulted due to persistent vomiting; IBD was ruled out as fecal calprotectin was WBL. She has BEVERLY 2/2 malnutrition and was provided IV iron (last given on 02/14/20- Iron Dextran 62.5 mg) due to inability to tolerate PO iron. Work-up for hyperthyroidism (pt sxs of hot flashes) has been unremarkable: TSH 0.13 (low) and T4/T3/ thyroid stimulating microglobulin were all normal. Plan: CVS: - urine metanephrines and urine catecholamines pending - clonidine 0.1 mg QHS, hold for systolic BP <130 - CR monitors, VS q8hr, strict I/Os, daily weights and orthostatics RESP: Stable on Room air FEN/GI: - NJ tube placed 02/02 - If tube is displaced, will attempt to replace if possible; can use IV benadryl, intranasal versed, or oral versed - If not possible to replace tube, will continue TPN - TPN at 50 ml/hr + lipids at 12 mL/hr + MVI at 10 mL/hr - when appropriate enteral feeds can be increased from 50 ml/hr to 60 ml/hr and decrease parenteral to 40 ml/hr - add 3 g of sodium to TPN - Nexium 20 mg BID, Vit D; Periactin 4 mg with breakfast and 8 mg with dinner - 9 oz per shift between cool water (no ice) and sprite--no more than 4 oz of Sprite per shift, allowing crackers, 2 peppermints per shift - Lactulose 5 mg w/ 20-30 mL daily - Daily weights. goal for gaining 200-300 g/day. - Labs CMP, Mg, Phos, Trigylcerides 3 times weekly (Tues, Thurs, Sat) ID: No concerns for infection at this time HEME/ONC: Mircocytic anemia 2/2 malnutrition - Iron Dextran 62.5 mg on 02/14/20; consider weekly dose. Plan to obtain iron studies ~ 03/14/20 ENDO: TSH 0.13 (L) and T4 normal at 0.92- obtained due to persistent Tachycardia and BP issues; most likely 2/2 to eating disorder - Endocrinology recommended obtaining Total T3 (normal) , thyroid antibodies (pending), and thyroid stimulating immunoglobulin (Normal) - Consider Repeat TSH and Free T4 in NEURO: - Tylenol and Ibuprofen PRN for pain - Melatonin 6 mg for sleep - Physical Therapy PSYCH/SOCIAL: -See anxiety and depression A/P Assessment & Plan (02/21/2020 10:54 AM LITHOGRAPHIC GENERAL WORKER): Assessment: Marlee is a 19 year old with history of constipation, anxiety, and depression admitted for dehydration and functional pain with restrictive eating patterns related to anxiety. 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 Marlee has had multiple NG and ND tubes and has not tolerated feeds, and remains unable to tolerate oral feeds. Adolescent following closely. NJ tube was placed on 02/02 by IR. PICC line placed on 02/08. Echo was ordered due to persistent tachycardia and showed decreased LV mass (z-score - 2.4), likely from malnutrition; normal biventricular size and systolic function. GI was consulted again for persistent vomiting and recommended scheduling reglan. Due to concerns of IBD fecal calprotectin was ordered and was WNL. Marlee has also had persistently low Hg and MCV indicating likely iron deficiency anemia 2/2 malnutrition. She was not able to tolerate oral iron. IV iron was given for several days then discontinued. Most recent CBC showed Hg 10.9 and MCV 77.6. Due to presence of hot flashes, thyroid studies were obtained and revealed TSH 0.13 (L) and T4 normal at 0.92. Discussed with adolescent and abnormalities likely due to malnutrition; T3 and Thyroid stimulating microglobulin are normal. TSH and Free T4 will likely need to be followed up several months from now. Plan: CVS: Persistent tachycardia and Hypertension - urine metanephrines and urine catecholamines pending - Clonidine 0.1 mg QHS, hold for systolic BP <130 - CR monitors, VS q8hr, strict I/Os, daily weights and orthostatics RESP: Stable on Room air FEN/GI: - NJ tube placed 02/02 - If tube is displaced, will attempt to replace if possible; can use IV benadryl, intranasal versed, or oral versed - If not possible to replace tube, will continue TPN - 5 oz of cool water per shift, no ice; can have sips of Courtney Mist. Allowing crackers, 2 peppermints per shift. - NJ feeds at 50 mL/hr per adolescent and nutrition recs - TPN at 50 ml/hr, lipids at 12 mL/hr, MVI at 10 mL/hr. - Weights: Daily weights. Goal for gain of 200-300 g/day. - Labs CMP, Mg, Phos, Trigylcerides 3 times weekly (, Th, Sat) - Nexium 20 mg BID, Vit D; Periactin 4 mg with breakfast, 8 mg with dinner - Vitamin or Mineral supplements: Monitor electrolytes for refeeding - Lactulose 5 mg w/ 20-30 mL of water through NJ q48h for constipation ID: No concerns for infection at this time HEME/ONC: Mircocytic anemia - Iron Dextran 62.5 mg on 02/14/20, will consider weekly dose. Plan to obtain iron studies ~ 03/14/20 ENDO: TSH 0.13 (L) and T4 normal at 0.92- obtained due to persistent Tachycardia and BP issues; likely due to eating disorder - Endocrinology recommended obtaining Total T3 (normal) , thyroid antibodies (pending), and thyroid stimulating immunoglobulin (Normal) - Will likely need repeat TSH and Free T4 in NEURO: - Tylenol and Ibuprofen PRN for pain - Melatonin 6 mg for sleep - Physical Therapy PSYCH/SOCIAL: -See anxiety and depression A/P Assessment & Plan (02/20/2020 11:31 AM LITHOGRAPHIC GENERAL WORKER): Assessment: Marlee is a 19 year old with history of constipation, anxiety, and depression admitted for dehydration and functional pain with restrictive eating patterns related to anxiety. 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 Marlee has had multiple NG and ND tubes and has not tolerated feeds, and remains unable to tolerate oral feeds. Adolescent following closely. NJ tube was placed on 02/02 by IR. PICC line placed on 02/08. Echo was ordered due to persistent tachycardia and showed decreased LV mass (z-score - 2.4), likely from malnutrition; normal biventricular size and systolic function. GI was consulted again for persistent vomiting and recommended scheduling reglan. Due to concerns of IBD fecal calprotectin was ordered and was WNL. Marlee has also had persistently low Hg and MCV indicating likely iron deficiency anemia 2/2 malnutrition. She was not able to tolerate oral iron. IV iron was given for several days then discontinued. Most recent CBC showed Hg 10.9 and MCV 77.6. Due to presence of hot flashes, thyroid studies were obtained and revealed TSH 0.13 (L) and T4 normal at 0.92. Discussed with adolescent and abnormalities likely due to malnutrition; T3 and Thyroid stimulating microglobulin are normal. TSH and Free T4 will likely need to be followed up several months from now. Plan: CVS: Persistent tachycardia and Hypertension - will obtain urine metanephrines and urine catecholamines - Clonidine 0.1 mg QHS, hold for systolic BP <130 - CR monitors, VS q8hr, strict I/Os, daily weights and orthostatics RESP: Stable on Room air FEN/GI: - NJ tube placed 02/02 - If tube is displaced, will attempt to replace if possible; can use IV benadryl, intranasal versed, or oral versed - If not possible to replace tube, will continue TPN - 5 oz of cool water per shift, no ice; can have sips of Courtney Mist. Allowing crackers, 2 peppermints per shift. - NJ feeds at 50 mL/hr per adolescent and nutrition recs - TPN at 50 ml/hr, lipids at 12 mL/hr, MVI at 10 mL/hr. - Weights: Daily weights. Goal for gain of 200-300 g/day. - Labs CMP, Mg, Phos, Trigylcerides 3 times weekly (Tu, Th, Sat) - Nexium 20 mg BID, Vit D; Periactin 4 mg with breakfast, 8 mg with dinner - Vitamin or Mineral supplements: Monitor electrolytes for refeeding - Lactulose 5 mg w/ -30 mL of water through NJ q48h for constipation ID: No concerns for infection at this time HEME/ONC: Mircocytic anemia - Iron Dextran 62.5 mg on 02/14/20, will consider weekly dose. Plan to obtain iron studies ~ 03/14/20 ENDO: TSH 0.13 (L) and T4 normal at 0.92- obtained due to persistent Tachycardia and BP issues; likely due to eating disorder - Endocrinology recommended obtaining Total T3 (normal) , thyroid antibodies (pending), and thyroid stimulating immunoglobulin (Normal) - Will likely need repeat TSH and Free T4 in March/April NEURO: - Tylenol and Ibuprofen PRN for pain - Melatonin 6 mg for sleep - Physical Therapy PSYCH/SOCIAL: -See anxiety and depression A/P Assessment & Plan (02/19/2020 3:04 PM LITHOGRAPHIC GENERAL WORKER): Assessment: Marlee is a 19 year old with history of constipation, anxiety, and depression admitted for dehydration and functional pain with restrictive eating patterns related to anxiety. 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 Marlee has had multiple NG and ND tubes and has not tolerated feeds, and remains unable to tolerate oral feeds. Adolescent following closely. NJ tube was placed on 02/02 by IR. PICC line placed on 02/08. Echo was ordered due to persistent tachycardia and showed decreased LV mass (z-score - 2.4), likely from malnutrition. Normal biventricular size and systolic function. GI was consulted again for persistent vomiting and recommended scheduling reglan. Due to concerns of IBD fecal calprotectin was ordered and was WNL. Marlee has also had persistently low Hg and MCV indicating likely iron deficiency anemia 2/2 malnutrition. She was not able to tolerate oral iron. IV iron was given for several days then discontinued. Most recent CBC showed Hg 10.9 and MCV 77.6. Iron dextran 62.5 given on 02/14/20. Due to presence of hot flashes, thyroid studies were obtained and revealed TSH 0.13 (L) and T4 normal at 0.92. Discussed with adolescent and abnormalities likely due to malnutrition, but will obtain studies to rule out thyroid disease. T3 normal at 0.78. Plan: - NJ tube placed 02/02 - If tube is displaced, will attempt to replace if possible; can use IV benadryl, intranasal versed, or oral versed - If not possible to replace tube, will continue TPN - 5 oz of cool water per shift, no ice. Allowing crackers, 2 peppermints per shift. - NJ feeds at 50 mL/hr per adolescent and nutrition recs - TPN at 50 ml/hr, lipids at 12 mL/hr, MVI at 10 mL/hr. Adjusting K to 25, Mg to 4, Dextrose to 24. - Endocrinology recommended obtaining Total T3, thyroid antibodies, and thyroid stimulating immunoglobulin - labs pending - Iron Dextran 62.5 mg on 02/14/20, will consider weekly dose. Plan to obtain iron studies ~ 03/14/20 - Phenergan Q8 scheduled. If no improvement of nausea by 02/19, d/c phenergan and restart reglan - Lactulose 5 mg w/ 20-30 mL of water through NJ QOD - Vitamin or Mineral supplements: Monitor electrolytes for refeeding. Continue vitamin D replacement. - Weights: Daily weights. Goal for gain of 200-300 g/day. - Medications: Nexium 20 mg BID, Vit D, Periactin 4 mg with breakfast and lunch, 8 mg with dinner, Melatonin 6 mg - Tylenol and Ibuprofen PRN for pain - CR monitors, VS q8hr, strict I/Os, daily weights and orthostatics - PT - Labs CMP, Mg, Phos, Trigylcerides 3 times weekly (Tues, Thurs, Sat). Will obtain today due to adjustments made in TPN. Assessment & Plan (02/18/2020 10:14 AM LITHOGRAPHIC GENERAL WORKER): Assessment: Marlee is a 19 year old with history of constipation, anxiety, and depression admitted for dehydration and functional pain with restrictive eating patterns related to anxiety. 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 Marlee has had multiple NG and ND tubes and has not tolerated feeds, and remains unable to tolerate oral feeds. Adolescent following closely. NJ tube was placed on 02/02 by IR. PICC line placed on 02/08. Echo was ordered due to persistent tachycardia and showed decreased LV mass (z-score - 2.4), likely from malnutrition. Normal biventricular size and systolic function. GI was consulted again for persistent vomiting and recommended scheduling reglan. Due to concerns of IBD fecal calprotectin was ordered and was WNL. Marlee has also had persistently low Hg and MCV indicating likely iron deficiency anemia 2/2 malnutrition. She was not able to tolerate oral iron. IV iron was given for several days then discontinued. Most recent CBC showed Hg 10.9 and MCV 77.6. Iron dextran 62.5 given on 02/14/20. Due to presence of hot flashes, thyroid studies were obtained and revealed TSH 0.13 (L) and T4 normal at 0.92. Discussed with adolescent and abnormalities likely due to malnutrition, but will obtain studies to rule out thyroid disease. Plan: - NJ tube placed 02/02 - If tube is displaced, will attempt to replace if possible; can use IV benadryl, intranasal versed, or oral versed - If not possible to replace tube, will continue TPN - 5 oz of cool water per shift, no ice. Allowing 2 peppermints per shift. - NJ feeds at 50 mL/hr per adolescent and nutrition recs - TPN at 50 ml/hr, lipids at 8 mL/hr, MVI at 10 mL/hr. - Endocrinology recommended obtaining Total T3, thyroid antibodies, and thyroid stimulating immunoglobulin - labs pending - Iron Dextran 62.5 mg on 02/14/20, will consider weekly dose. Plan to obtain iron studies ~ 02/29/20 - Reglan OR Phenergan Q8, scheduled - Trial of capsaicin cream - Lactulose 5 mg w/ 20-30 mL of water through NJ QOD - Vitamin or Mineral supplements: Monitor electrolytes for refeeding. Continue vitamin D replacement. - Weights: Daily weights. Goal for gain of 200-300 g/day. - Medications: Nexium 20 mg BID, Vit D, Periactin 4 mg with breakfast and lunch, 8 mg with dinner, Melatonin 6 mg - Tylenol and Ibuprofen PRN for pain - CR monitors, VS q8hr, strict I/Os, daily weights and orthostatics - PT - Labs CMP, Mg, Phos, Trigylcerides 3 times weekly (Tues, Thurs, Sat) Assessment & Plan (02/17/2020 12:30 PM LITHOGRAPHIC GENERAL WORKER): Assessment: Marlee is a 19 year old with history of constipation, anxiety, and depression admitted for dehydration and functional pain with restrictive eating patterns related to anxiety. 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 Marlee has had multiple NG and ND tubes and has not tolerated feeds, and remains unable to tolerate oral feeds. Adolescent following closely. NJ tube was placed on 02/02 by IR. PICC line placed on 02/08. Echo was ordered due to persistent tachycardia and showed decreased LV mass (z-score - 2.4), likely from malnutrition. Normal biventricular size and systolic function. GI was consulted again for persistent vomiting and recommended scheduling reglan. Marlee has also had persistently low Hg and MCV indicating likely iron deficiency anemia 2/2 malnutrition. She was not able to tolerate oral iron. IV iron was given for several days then discontinued. Most recent CBC showed Hg 10.9 and MCV 77.6. Iron dextran 62.5 given on 02/14/20. Due to presence of hot flashes, thyroid studies were obtained and revealed TSH 0.13 (L) and T4 normal at 0.92. Discussed with adolescent and abnormalities likely due to malnutrition, but will obtain studies to rule out thyroid disease. Plan: - NJ tube placed 02/02 - If tube is displaced, will attempt to replace if possible; can use IV benadryl, intranasal versed, or oral versed - If not possible to replace tube, will continue TPN - NPO, 5 oz of cool water + 1 popsicle, no ice per shift - NJ feeds at 50 mL/hr per adolescent and nutrition recs - TPN at 65 ml/hr, lipids at 8 mL/hr, MVI at 10 mL/hr. Discussing with nutrition for TPN recs due to fluids at 1.5x maintenance - Endocrinology recommended obtaining Total T3, thyroid antibodies, and thyroid stimulating immunoglobulin - Iron Dextran 62.5 mg on 02/14/20, will consider weekly dose. Will determine when to obtain iron studies with nephrology - IV Reglan Q8 scheduled - Lactulose 5 mg w/ 20-30 mL of water through NJ QOD - Vitamin or Mineral supplements: Monitor electrolytes for refeeding. Continue vitamin D replacement. - Weights: Daily weights. Goal for gain of 200-300 g/day. - Medications: Nexium BID, Vit D, Periactin 4 mg with breakfast and lunch, 8 mg with dinner - Tylenol and Ibuprofen PRN for pain - CR monitors, VS q8hr, strict I/Os, daily weights and orthostatics - PT - Labs BMP, Mg, Phos, HFP and Triglycerides Mon, Thurs. Fecal calprotectin per GI recs - still pending Assessment & Plan (02/16/2020 2:29 PM LITHOGRAPHIC GENERAL WORKER): Assessment: Marlee is a 19 year old with history of constipation, anxiety, and depression admitted for dehydration and functional pain with restrictive eating patterns related to anxiety. 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 Marlee has had multiple NG and ND tubes and has not tolerated feeds, and remains unable to tolerate oral feeds. Adolescent and GI following closely. NJ tube was placed on 02/02 by IR. PICC line placed on 02/08. Echo was ordered due to persistent tachycardia and showed decreased LV mass (z-score -2.4), likely from malnutrition. Normal biventricular size and systolic function. GI was consulted again for persistent vomiting and recommended scheduling reglan. Marlee has also had persistently low Hg and MCV indicating likely iron deficiency anemia 2/2 malnutrition. She was not able to tolerate oral iron. IV iron was given for several days then discontinued. Most recent CBC showed Hg 10.9 and MCV 77.6. Iron dextran 62.5 given on 02/14/20. Plan: - NJ tube placed 02/02 - If tube is displaced, will attempt to replace if possible; can use IV benadryl, intranasal versed, or oral versed - If not possible to replace tube, will continue TPN - NPO, 4 oz of cool water + 1 popsicle, no ice per shift - NJ feeds at 50 mL/hr per adolescent and nutrition recs - TPN at 65 ml/hr, lipids at 8 mL/hr, MVI at 10 mL/hr. Will stay at this rate for now. Discussing with adolescent on whether adjustments need to be made to TPN. Fluids currently at 1.5x maintenance. - Will obtain U/A and urinalysis today due to cloudy urine. - Hot flashes noted by adolescent - will obtain TSH and FT4 - Iron Dextran 62.5 mg on 02/14/20, will consider weekly dose. Will determine when to obtain iron studies with pharmacy. - IV Reglan Q8 scheduled - Lactulose QOD - Vitamin or Mineral supplements: Monitor electrolytes for refeeding. Continue vitamin D replacement. - Weights: Daily weights. Goal for gain of 200-300 g/day. - Medications: Nexium BID, Vit D, Periactin 4 mg with breakfast and lunch, 8 mg with dinner - Tylenol and Ibuprofen PRN for pain - CR monitors, VS q8hr, strict I/Os, daily weights and orthostatics - PT - Labs daily (BMP, Mg, Phos). HFP and Triglycerides Mon, Thurs. Fecal calprotectin per GI recs - still pending Assessment & Plan (02/15/2020 12:33 PM LITHOGRAPHIC GENERAL WORKER): Assessment: Marlee is a 19 year old with history of constipation, anxiety, and depression admitted for dehydration and functional pain with restrictive eating patterns related to anxiety. 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 Marlee has had multiple NG and ND tubes and has not tolerated feeds, and remains unable to tolerate oral feeds. Adolescent and GI following closely. NJ tube was placed on 02/02 by IR. PICC line placed on 02/08. Echo was ordered due to persistent tachycardia and showed decreased LV mass (z-score -2.4), likely from malnutrition. Normal biventricular size and systolic function. GI was consulted again for persistent vomiting and recommended scheduling reglan and considering a gastric emptying study for next week (02/14). Marlee has also had persistently low Hg and MCV indicating likely iron deficiency anemia 2/2 malnutrition. She was not able to tolerated oral iron. IV iron was given for several days then discontinued. Most recent CBC showed Hg 10.9 and MCV 77.6. Iron dextran 62.5 given on 02/14/20. Plan: - NJ tube placed 02/02 - If tube is displaced, will attempt to replace if possible; can use IV benadryl, intranasal versed, or oral versed - If not possible to replace tube, will continue TPN - NPO, 4 oz of cool water + 1 popsicle, no ice per shift - NJ feeds at 50 mL/hr per adolescent and nutrition recs - TPN at 65 ml/hr, lipids at 8 mL/hr, MVI at 10 mL/hr. Adjusting Na to 100 mEq/L due to Na 131. - Iron Dextran 62.5 mg on 02/14/20, will consider weekly dose. Will determine when to obtain iron studies. - IV Reglan Q8 scheduled - Lactulose QOD - Vitamin or Mineral supplements: Monitor electrolytes for refeeding. Continue vitamin D replacement. - Weights: Daily weights. Goal for gain of 200-300 g/day. - Medications: Nexium BID, Vit D, Periactin 4 mg with breakfast and lunch, 8 mg with dinner - Tylenol and Ibuprofen PRN for pain - CR monitors, VS q8hr, strict I/Os, daily weights and orthostatics - PT - Labs daily (CBC, CMP, Mg, Phos, Triglycerides). Obtaining Fecal calprotectin per GI recs - still pending Assessment & Plan (02/14/2020 2:23 PM LITHOGRAPHIC GENERAL WORKER): Assessment: Marlee is a 19 year old with history of constipation, anxiety, and depression admitted for dehydration and functional pain with restrictive eating patterns related to anxiety. 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 Marlee has had multiple NG and ND tubes and has not tolerated feeds, and remains unable to tolerate oral feeds. Adolescent and GI following closely. NJ tube was placed on 02/02 by IR. PICC line placed on 02/08. Echo was ordered due to persistent tachycardia and showed decreased LV mass (z-score -2.4), likely from malnutrition. Normal biventricular size and systolic function. GI was consulted again for persistent vomiting and recommended scheduling reglan and considering a gastric emptying study for next week (02/14). Marlee has also had persistently low Hg and MCV indicating likely iron deficiency anemia 2/2 malnutrition. She was not able to tolerated oral iron. IV iron was given for several days then discontinued. Most recent CBC showed Hg 10.9 and MCV 77.6 Plan: - NJ tube placed 02/02 - If tube is displaced, will attempt to replace if possible; can use IV benadryl, intranasal versed, or oral versed - If not possible to replace tube, will continue TPN - NPO, 4 oz of cool water, no ice per shift - NJ feeds at 40 mL/hr, staying at this rate for now per adolescent and nutrition recs. Will reassess on 02/14 - TPN at 72 mL/hr (full rate), lipids at 8 mL/hr, MVI at 10 mL/hr. Adjusting Mg to 3.0 mEq and Phos to 6 mmol - Iron Dextran 62.5 mg today - IV Reglan Q8 scheduled - Lactulose QD - changed frequency to be given at noon to help alleviate the volume of medications she gets at one time - Vitamin or Mineral supplements: Monitor electrolytes for refeeding. Continue vitamin D replacement. - Weights: Daily weights. Goal for gain of 200-300 g/day. - Medications: Nexium BID, Vit D, Periactin 4 mg with breakfast and lunch, 8 mg with dinner - Tylenol and Ibuprofen PRN for pain - CR monitors, VS q8hr, strict I/Os, daily weights and orthostatics - PT - Labs daily (CBC, CMP, Mg, Phos, Triglycerides). Obtaining Fecal calprotectin per GI recs - still pending Assessment & Plan (02/13/2020 11:59 AM LITHOGRAPHIC GENERAL WORKER): Assessment: Marlee is a 19 year old with history of constipation, anxiety, and depression admitted for dehydration and functional pain with restrictive eating patterns related to anxiety. 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 Marlee has had multiple NG and ND tubes and has not tolerated feeds, and remains unable to tolerate oral feeds. Adolescent and GI following closely. NJ tube was placed on 02/02 by IR. PICC line placed on 02/08. Echo was ordered due to persistent tachycardia and showed decreased LV mass (z-score -2.4), likely from malnutrition. Normal biventricular size and systolic function. GI was consulted again for persistent vomiting and recommended scheduling reglan and considering a gastric emptying study for next week (02/14). Marlee has also had persistently low Hg and MCV indicating likely iron deficiency anemia 2/2 malnutrition. She was not able to tolerated oral iron. IV iron was given for several days then discontinued. Most recent CBC showed Hg 10.9 and MCV 77.6 Plan: - NJ tube placed 02/02 - If tube is displaced, will attempt to replace if possible; can use IV benadryl, intranasal versed, or oral versed - If not possible to replace tube, will continue TPN - NPO, 4 oz of cool water, no ice per shift - NJ feeds at 40 mL/hr, staying at this rate for now per adolescent and nutrition recs. Will reassess on 02/14 - TPN at 72 mL/hr (full rate), lipids at 8 mL/hr, MVI at 10 mL/hr. Increasing Na to 85 today in TPN - Discussed with pharmacy and can try one time IV iron dose of 17 mg - IV Reglan Q8 scheduled - Lactulose QD - changed frequency to be given at noon to help alleviate the volume of medications she gets at one time - Vitamin or Mineral supplements: Monitor electrolytes for refeeding. Continue vitamin D replacement. - Weights: Daily weights. Goal for gain of 200-300 g/day. - Medications: Nexium BID, Vit D, Periactin 4 mg with breakfast and lunch, 8 mg with dinner - Tylenol and Ibuprofen PRN for pain - CR monitors, VS q8hr, strict I/Os, daily weights and orthostatics - PT - Labs daily (CBC, CMP, Mg, Phos, Triglycerides). Obtaining Fecal calprotectin per GI recs - still pending Assessment & Plan (02/12/2020 11:49 AM LITHOGRAPHIC GENERAL WORKER): Assessment: Marlee is a 19 year old with history of constipation, anxiety, and depression admitted for dehydration and functional pain with restrictive eating patterns related to anxiety. 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 Marlee has had multiple NG and ND tubes and has not tolerated feeds, and remains unable to tolerate oral feeds. Adolescent and GI following closely. NJ tube was placed on 02/02 by IR. PICC line placed on 02/08. Echo was ordered due to persistent tachycardia and showed decreased LV mass (z-score -2.4), likely from malnutrition. Normal biventricular size and systolic function. GI was consulted again for persistent vomiting and recommended scheduling reglan and considering a gastric emptying study for next week (02/14). Marlee has also had persistently low Hg and MCV indicating likely iron deficiency anemia 2/2 malnutrition. She was not able to tolerated oral iron. IV iron was given for several days then discontinued. Most recent CBC showed Hg 10.9 and MCV 77.6 Plan: - NJ tube placed 02/02 - If tube is displaced, will attempt to replace if possible; can use IV benadryl, intranasal versed, or oral versed - If not possible to replace tube, will continue TPN - NPO, 2 oz of cool water, no ice per shift - NJ feeds at 40 mL/hr, staying at this rate for now per adolescent and nutrition recs. Will reassess on 02/14 - TPN at 72 mL/hr (full rate), lipids at 8 mL/hr, MVI at 10 mL/hr. Decreasing Mg today down to 3.5 in TPN - Discussed with pharmacy and can try one time IV iron dose of 17 mg - IV Reglan Q8 scheduled - Lactulose QD - Vitamin or Mineral supplements: Monitor electrolytes for refeeding. Continue vitamin D replacement. - Weights: Daily weights. Goal for gain of 200-300 g/day. - Medications: Nexium BID, Vit D, Periactin 4 mg with breakfast and lunch, 8 mg with dinner - Tylenol and Ibuprofen PRN for pain - CR monitors, VS q8hr, strict I/Os, daily weights and orthostatics - PT - Labs daily (CBC, CMP, Mg, Phos, Triglycerides). Obtaining Fecal calprotectin per GI recs Assessment & Plan (02/11/2020 11:56 AM LITHOGRAPHIC GENERAL WORKER): Assessment: Marlee is a 19 year old with history of constipation, anxiety, and depression admitted for dehydration and functional pain with restrictive eating patterns related to anxiety. 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 Marlee has had multiple NG and ND tubes and has not tolerated feeds, and remains unable to tolerate oral feeds. Adolescent and GI following closely. NJ tube was placed on 02/02 by IR. PICC line placed on 02/08. Echo was ordered due to persistent tachycardia and showed decreased LV mass (z-score -2.4), likely from malnutrition. Normal biventricular size and systolic function. GI was consulted again for persistent vomiting and recommended scheduling reglan and considering a gastric emptying study for next week. Plan: - NJ tube placed 02/02 - If tube is displaced, will attempt to replace if possible; can use IV benadryl, intranasal versed, or oral versed - If not possible to replace tube, will continue PPN - NPO, only small sips of water allowed - PICC line placed on 02/08 - NJ feeds at 40 mL/hr, staying at this rate for now per adolescent and nutrition recs. Will reassess on 02/14 - TPN at 72 mL/hr (full rate), lipids at 8 mL/hr, MVI at 10 mL/hr - IV Reglan Q8 scheduled - GI consulted, appreciate recs - Lactulose daily PRN - Vitamin or Mineral supplements: Monitor electrolytes for refeeding. Continue vitamin D replacement. - Weights: Daily weights. Goal for gain of 200-300 g/day. - Medications: Nexium BID, Miralax PRN, Vit D, Periactin 4 mg with breakfast and lunch, 8 mg with dinner - Tylenol and Ibuprofen PRN for pain - CR monitors, VS q8hr, strict I/Os, daily weights and orthostatics - PT - Labs daily (CBC, CMP, Mg, Phos, Triglycerides). Obtaining Fecal calprotectin per GI recs Assessment & Plan (02/10/2020 12:11 PM LITHOGRAPHIC GENERAL WORKER): Assessment: Marlee is a 19 year old with history of constipation, anxiety, and depression admitted for dehydration and functional pain with restrictive eating patterns related to anxiety. 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 Marlee has had multiple NG and ND tubes and has not tolerated feeds, and remains unable to tolerate oral feeds. Adolescent and GI following closely. NJ tube was placed on 02/02 by IR. PICC line placed on 02/08. Plan: - NJ tube placed 02/02 - If tube is displaced, will attempt to replace if possible; can use IV benadryl, intranasal versed, or oral versed - If not possible to replace tube, will continue PPN - NPO, only small sips of water allowed - PICC line placed on 02/08 - NJ feeds at 40 mL/hr, staying at this rate for now - TPN at 72 mL/hr (full rate) and lipids at 8 mL/hr tonight. - Discussing with adolescent and nutrition for plan for the holiday and weekend. - Echo showed decreased LV mass (z-score -2.4). Normal biventricular size and systolic function. - Lactulose daily PRN - Vitamin or Mineral supplements: Monitor electrolytes for refeeding. Continue vitamin D replacement. - Weights: Daily weights. Goal for gain of 200-300 g/day. - Medications: Nexium BID, Miralax PRN, Vit D, Periactin 4 mg with breakfast and lunch, 8 mg with dinner - IV Reglan Q12H PRN (per pharmacy, can do spot dose after 6hrs if needed) - Tylenol and Ibuprofen PRN for pain - CR monitors, VS q8hr, strict I/Os, daily weights and orthostatics - PT - Labs daily (BMP, Mg, Phos, urine SG) Assessment & Plan (02/09/2020 11:49 AM LITHOGRAPHIC GENERAL WORKER): Assessment: Marlee is a 19 year old with history of constipation, anxiety, and depression admitted for dehydration and functional pain with restrictive eating patterns related to anxiety. 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 Marlee has had multiple NG and ND tubes and has not tolerated feeds, and remains unable to tolerate oral feeds. Adolescent and GI following closely. NJ tube was placed on 02/02 by IR. Plan: - NJ tube placed 02/02 - If tube is displaced, will attempt to replace if possible; can use IV benadryl, intranasal versed, or oral versed - If not possible to replace tube, will continue PPN - NPO, only small sips of water allowed - Vascular access to replace midline today with sedation - NJ feeds at 40 mL/hr, staying at this rate for now - Restart PPN at 72 mL/hr (full rate) and lipids at 8 mL/hr tonight. (Will give IV fluids after Marlee is back from her procedure prior to starting PPN at 1700). - Lactulose daily PRN - Vitamin or Mineral supplements: Monitor electrolytes for refeeding. Continue vitamin D replacement. - Weights: Daily weights. Goal for gain of 200-300 g/day. - Medications: Nexium BID, Miralax PRN, Vit D, Periactin 4 mg with breakfast and lunch, 8 mg with dinner - IV Reglan Q12H PRN (per pharmacy, can do spot dose after 6hrs if needed) - Tylenol and Ibuprofen PRN for pain - CR monitors, VS q8hr, strict I/Os, daily weights and orthostatics - PT - Labs daily (BMP, Mg, Phos, urine SG) Assessment & Plan (02/08/2020 12:54 PM LITHOGRAPHIC GENERAL WORKER): Assessment: Marlee is a 19 year old with history of constipation, anxiety, and depression admitted for dehydration functional pain with restrictive eating patterns related to anxiety. 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 Marlee has had multiple NG and ND tubes and has not tolerated feeds, and remains unable to tolerate oral feeds. Adolescent and GI following closely. NJ tube was placed on 02/02 by IR. Plan: - NJ tube placed 02/02 - If tube is displaced, will attempt to replace if possible; can use IV benadryl, intranasal versed, or oral versed - If not possible to replace tube, will continue PPN and add the lipids back in - NPO, only small sips of water allowed - NJ feeds at 25 mL/hr, increasing by 5 mL every 6 hours until up to 85 mL/hr (goal rate) - Continue PPN at 80 mL/hr (full rate). Will start lipids at 8 mL/hr and decrease PPN to 72 mL/hr at 1700 today - Lactulose daily PRN - Vitamin or Mineral supplements: Monitor electrolytes for refeeding. Continue vitamin D replacement. - Weights: Daily weights. Goal for gain of 200-300 g/day. - Medications: Nexium BID, Miralax PRN, Vit D, Periactin 4 mg with breakfast and lunch, 8 mg with dinner - IV Reglan Q12H PRN or Phenergan q12hr prn for nausea (per pharmacy, can do spot dose after 6hrs if needed) - Tylenol and Ibuprofen PRN for pain - CR monitors, VS q8hr, strict I/Os, daily weights and orthostatics - PT - Labs daily (BMP, Mg, Phos, urine SG) Adding albumin for tomorrow per nutrition recs. Assessment & Plan (02/07/2020 12:06 PM LITHOGRAPHIC GENERAL WORKER): Assessment: Marlee is a 19 year old with history of constipation, anxiety, and depression admitted for dehydration functional pain with restrictive eating patterns related to anxiety. 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 Marlee has had multiple NG and ND tubes and has not tolerated feeds, and remains unable to tolerate oral feeds. Adolescent and GI following closely. Plan: - NJ tube placed 02/02 - If tube is displaced, will attempt to replace if possible; can use IV benadryl, intranasal versed, or oral versed - If not possible to replace tube, will continue PPN and add the lipids back in - NPO, only small sips of water allowed - HOLD NJ feeds for now, will restart at 45 mL/hr (half rate) once vomiting/nausea has improved and slowly increase back to 85 mL/hr (goal rate) - Continue PPN at 80 mL/hr (full rate) - Vitamin or Mineral supplements: Monitor electrolytes for refeeding. Continue vitamin D replacement. - Weights: Daily weights. Goal for gain of 200-300 g/day. - Medications: Nexium BID, Miralax PRN, Vit D, Periactin 4 mg with breakfast and lunch, 8 mg with dinner, hold Lactulose for today due to loose BMs - IV Reglan Q12H PRN or Phenergan q12hr prn for nausea (per pharmacy, can do spot dose after 6hrs if needed) - Tylenol and Ibuprofen PRN for pain - CR monitors, VS q8hr, strict I/Os, daily weights and orthostatics - PT - Labs daily (BMP, Mg, Phos, urine SG) Assessment & Plan (02/06/2020 8:12 AM LITHOGRAPHIC GENERAL WORKER): Assessment: Marlee is a 19 year old with history of constipation, anxiety, and depression admitted for dehydration functional pain with restrictive eating patterns related to anxiety. 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 Marlee has had multiple NG and ND tubes and has not tolerated feeds, and remains unable to tolerate oral feeds. Adolescent and GI following closely. Plan: - NJ tube placed 02/02 - If tube is displaced, will attempt to replace if possible; can use IV benadryl, intranasal versed, or oral versed - If not possible to replace tube, will continue PPN and add the lipids back in - NPO, only small sips of water allowed - Continue NJ feeds with Nutren 1.0 at 85 mL/hr (goal rate) - discontinue PPN - Vitamin or Mineral supplements: Monitor electrolytes for refeeding. Continue vitamin D replacement. - Weights: Daily weights. Goal for gain of 200-300 g/day. - Medications: Nexium BID, Miralax PRN, Vit D, Periactin 4 mg with breakfast and lunch, 8 mg with dinner, increase Lactulose 20g to BID for constipation - IV Reglan Q12H PRN or Phenergan q12hr prn for nausea - Tylenol and Ibuprofen PRN for pain - CR monitors, VS q8hr, strict I/Os, daily weights and orthostatics - PT - Labs daily (BMP, Mg, Phos, urine SG) Assessment & Plan (02/05/2020 9:12 AM LITHOGRAPHIC GENERAL WORKER): Assessment: Marlee is a 19 year old with history of constipation, anxiety, and depression admitted for dehydration functional pain with restrictive eating patterns related to anxiety. 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 Marlee has had multiple NG and ND tubes and has not tolerated feeds, and remains unable to tolerate oral feeds. Adolescent and GI following closely. Plan: - NJ tube placed 02/02 - If tube is displaced, will attempt to replace if possible; can use IV benadryl, intranasal versed, or oral versed - If not possible to replace tube, will continue PPN and add the lipids back in - NPO, only small sips of water allowed - Continue NJ feeds with Nutren 1.0 at 70 mL/hr, increase by 10 mL/hr every 6 hours (goal: 85 mL/hr) - Continue PPN at 1/4 rate in case of NJ displacement - Vitamin or Mineral supplements: Monitor electrolytes for refeeding. Continue vitamin D replacement. - Weights: Daily weights. Goal for gain of 200-300 g/day. - Medications: Nexium BID, Miralax PRN, Vit D, Periactin 4 mg with breakfast and lunch, 8 mg with dinner, Lactulose 20g daily - IV Reglan Q12H PRN or Phenergan q12hr prn for nausea - Tylenol and Ibuprofen PRN for pain - CR monitors, VS q8hr, strict I/Os, daily weights and orthostatics - PT - Labs daily (CMP, Mg, Phos, TG) Assessment & Plan (02/04/2020 12:52 PM LITHOGRAPHIC GENERAL WORKER): Assessment: Marlee is a 19 year old with history of constipation, anxiety, and depression admitted for dehydration functional pain with restrictive eating patterns related to anxiety. 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 Marlee has had multiple NG and ND tubes and has not tolerated feeds, and remains unable to tolerate oral feeds. Adolescent and GI following closely. Plan: - NJ tube placed 02/02 - If tube is displaced, will attempt to replace if possible; can use IV benadryl, intranasal versed, or oral versed - If not possible to replace tube, will continue PPN and add the lipids back in - NPO, only small sips of water allowed - Continue NJ feeds with Nutren 1.0 at 55 mL/hr, increase by 10 mL/hr every 6 hours (goal: 70 mL/hr) - Continue PPN at 1/2 rate in case of NJ displacement - Vitamin or Mineral supplements: Monitor electrolytes for refeeding. Continue vitamin D replacement. - Weights: Daily weights. Goal for gain of 200-300 g/day. - Medications: Nexium BID, Miralax PRN, Vit D, Periactin 4 mg with breakfast and lunch, 8 mg with dinner - IV Reglan Q12H PRN or Phenergan q12hr prn for nausea - Tylenol and Ibuprofen PRN for pain - CR monitors, VS q8hr, strict I/Os, daily weights and orthostatics - PT - Labs daily (CMP, Mg, Phos, TG) Assessment & Plan (02/03/2020 2:38 PM LITHOGRAPHIC GENERAL WORKER): Assessment: Marlee is a 19 year old with history of constipation, anxiety, and depression admitted for dehydration functional pain with restrictive eating patterns related to anxiety. 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 Marlee has had multiple NG and ND tubes and has not tolerated feeds, and remains unable to tolerate oral feeds. Adolescent and GI following closely. Plan: - NJ tube placed today 02/02 - If tube is displaced, will attempt to replace if possible; can use IV benadryl, intranasal versed, or oral versed - If not possible to replace tube, will continue PPN and add the lipids back in - NPO, only small sips of water allowed - Resume feeds with Nutren 1.0 at 25 mL/hr, will increase by 10 mL/hr every 6 hours (goal: 70 mL/hr) - Will continue PPN for now in case of NJ displacement; increased K in PPN to 25 mEq due to mild hypokalemia - Vitamin or Mineral supplements: Monitor electrolytes for refeeding. Continue vitamin D replacement and daily chewable multivitamin. - Weights: Daily weights. Goal for gain of 200-300 g/day. - Medications: Nexium BID, Miralax PRN, Vit D, Periactin 4 mg with breakfast and lunch, 8 mg with dinner - IV Reglan Q12H PRN or Phenergan q12hr prn for nausea - Tylenol and Ibuprofen PRN for pain - CR monitors, VS q8hr, strict I/Os, daily weights and orthostatics - PT - Labs daily (CMP, Mg, Phos, TG) Assessment & Plan (02/02/2020 4:02 PM LITHOGRAPHIC GENERAL WORKER): Assessment: Marlee is a 19 year old with history of constipation, anxiety, and depression admitted for dehydration functional pain with restrictive eating patterns related to anxiety. 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 Marlee has had multiple NG and ND tubes and has not tolerated feeds, and remains unable to tolerate oral feeds. Adolescent and GI following closely. Plan: - NJT placement, will attempt at bedside, if unsuccessful, IR to place - once placed, will resume feeds with Jevity 1.2, will start at 45 mL/hr continuous and advance to goal as tolerated - per Adolescent recs, will initiate PPN while awaiting enteral nutrition, will discuss with nutrition - Fluids: D5 NS + 20 KCl at 55 mL/hr - Vitamin or Mineral supplements: Monitor electrolytes for refeeding. Continue vitamin D replacement and daily chewable multivitamin. - Weights: Daily weights. Goal for gain of 200-300 g/day. - Medications: TUMS 1 tab BID, Salt BID, Nexium BID, Miralax PRN, MVI, Vit D, Periactin 4 mg with breakfast and lunch, 8 mg with dinner - IV Reglan Q12H PRN or Phenergan q12hr prn for nausea - Tylenol and Ibuprofen PRN for pain - CR monitors, VS q8hr, strict I/Os, daily weights and orthostatics - PT - Labs QOD Assessment & Plan (02/01/2020 12:08 PM LITHOGRAPHIC GENERAL WORKER): Assessment: Marlee is a 19 year old with history of constipation, anxiety, and depression admitted for dehydration functional pain with restrictive eating patterns related to anxiety. CT scan was obtained on 01/27 to assess for any GI pathology causing nausea, vomiting, poor weight gain. 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 Due to this Marlee was switched from an NG to an ND. GI was consulted for possible SMA and recommended pulling ND back to NG due to the location of the ND possibly causing discomfort and vomiting. Will try NG feeds to day and see how Marlee tolerates them. If not tolerating will need to discuss with adolescent and GI for NJ vs GJ placement. Plan: - Feeds: Jevity 1.2, rate of 45 mL/hr continuous - Fluids: D5 NS + 20 KCl at 55 mL/hr - NPO until tolerating NG feeds without emesis Enteral Nutrition: via NG Vitamin or Mineral supplements: Monitor electrolytes for refeeding. Continue vitamin D replacement and daily chewable multivitamin. Weights: Daily weights. Goal for gain of 200-300 g/day. - Periactin adjusted: 4 mg w/ breakfast and lunch, 8mg w/ dinner to try and improve appetite in AM (per recs from Dr. Sierra) - TUMS, 1 tab BID - Salt BID - Nexium BID - Miralax PRN - MVI - Vit D low - start 50kU VitD qweek x8 weeks - IV Reglan or Phenergan q6hr prn for nausea - Tylenol and Ibuprofen PRN for pain - CR monitors, VS q8hr, strict I/Os, daily weights and orthostatics - PT - Labs QOD - CBC showed Ferritin wnl, Hgb 10.2 - anemia can be seen with Nutcracker syndrome but no hematuria. U/A obtained today showed no RBCs. Assessment & Plan (01/31/2020 1:05 PM LITHOGRAPHIC GENERAL WORKER): Assessment: Marlee is a 19 year old with history of constipation, anxiety, and depression admitted for dehydration functional pain with restrictive eating patterns related to anxiety. CT scan was obtained on 01/27 to assess for any GI pathology causing nausea, vomiting, poor weight gain. 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 Due to this Marlee was switched from an NG to an ND. GI was consulted for possible SMA and recommended pulling ND to NG and decreasing feed volume by half. Make sure documented emesis is either observed or shown to RN or treatment team. Plan: - Adjust ND to NG today Half volume continuous feeds 30 mL/hr of Jevity 1.2. Will consider small volume bolus feeds if patient is tolerating. If patient continues to have significant emesis then will consult GI again. Per GI may need TPN or surgical consultation Fluids: D5 NS w/ 20 KCl, Currently at 1.25 maintenance due to urine spec grav 1.019 and NPO overnight Enteral Nutrition: via NG Vitamin or Mineral supplements: Monitor electrolytes for refeeding. Continue vitamin D replacement and daily chewable multivitamin. Weights: Daily weights. Goal for gain of 200-300 g/day. - Periactin adjusted: 4 mg w/ breakfast and lunch, 8mg w/ dinner to try and improve appetite in AM (per recs from Dr. Sierra) - TUMS, 1 tab BID - Salt BID - Nexium BID - Miralax PRN - MVI - Vit D low - start 50kU VitD qweek x8 weeks - IV Reglan or Phenergan q6hr prn for nausea - Tylenol and Ibuprofen PRN for pain - CR monitors, VS q8hr, strict I/Os, daily weights and orthostatics - PT - Labs QOD - CBC showed Ferritin wnl, Hgb 10.2 - anemia can be seen with Nutcracker syndrome but no hematuria Assessment & Plan (01/30/2020 10:30 AM LITHOGRAPHIC GENERAL WORKER): Assessment: Marlee is a 19 year old with history of constipation, anxiety, and depression admitted for dehydration functional pain with restrictive eating patterns related to anxiety. CT scan was obtained on 01/27 to assess for any GI pathology causing nausea, vomiting, poor weight gain. 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 Due to this Marlee was switched from an NG to an ND. Plan: - GI Consult for SMA Syndrome and Nutcracker syndrome, appreciate recs - KITTY protocol: (Per Dr. Sierra and Carin Pennington, RD) Continuous feeds of Jevity 1.2, run at 70 mL/hr over 24 hours. Start at 20 mL/hr and advance feeds by 20 mL as tolerated Q4 until goal is reached Will give small volumes of ensure for meals. Will discuss with Carin Pennington. Continuous feeds for just over 2000 calories. 3 ounces of Ensure at meals and one ounce at snack for drinking and still fluids as tolerated. Enteral Nutrition: via ND Vitamin or Mineral supplements: Monitor electrolytes for refeeding. Continue vitamin D replacement and daily chewable multivitamin. Weights: Daily weights. Goal for gain of 200-300 g/day. - Periactin adjusted: 4 mg w/ breakfast and lunch, 8mg w/ dinner to try and improve appetite in AM (per recs from Dr. Sierra) - TUMS, 1 tab BID - Salt BID - Nexium BID - Miralax PRN - MVI - Vit D low - start 50kU VitD qweek x8 weeks - IV Reglan or Phenergan q6hr prn for nausea - Tylenol and Ibuprofen PRN for pain - CR monitors, VS q8hr, strict I/Os, daily weights and orthostatics - PT - Labs QOD - Adding CBC and ferritin to check for anemia which can be associated with Nutcracker syndrome - Ferritin wnl, Hgb 10.2 Assessment & Plan (01/29/2020 9:39 PM LITHOGRAPHIC GENERAL WORKER): Assessment: Marlee is a 19 year old with history of constipation, anxiety, and depression admitted for dehydration functional pain with restrictive eating patterns related to anxiety. CT scan was obtained on 01/27 to assess for any GI pathology causing nausea, vomiting, poor weight gain. 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 Due to this Marlee was switched from an NG to an ND. Plan: - GI Consult for SMA Syndrome and Nutcracker syndrome, appreciate recs - KITTY protocol: (Per Dr. Sierra and Carin Pennington, RD) Continuous feeds of Jevity 1.2, run at 70 mL/hr over 24 hours. Start at 20 mL/hr and advance feeds by 20 mL as tolerated Q4 until goal is reached Will give small volumes of ensure for meals. Will discuss with Carin Pennington. Continuous feeds for just over 2000 calories. 3 ounces of Ensure at meals and one ounce at snack for drinking and still fluids as tolerated. Enteral Nutrition: via ND Vitamin or Mineral supplements: Monitor electrolytes for refeeding. Continue vitamin D replacement and daily chewable multivitamin. Weights: Daily weights. Goal for gain of 200-300 g/day. - Periactin adjusted: 4 mg w/ breakfast and lunch, 8mg w/ dinner to try and improve appetite in AM (per recs from Dr. Sierra) - TUMS, 1 tab BID - Salt BID - Nexium BID - Miralax PRN - MVI - Vit D low - start 50kU VitD qweek x8 weeks - IV Reglan or Phenergan q6hr prn for nausea - Tylenol and Ibuprofen PRN for pain - CR monitors, VS q8hr, strict I/Os, daily weights and orthostatics - PT - Labs QOD - Adding CBC and ferritin to check for anemia which can be associated with Nutcracker syndrome Assessment & Plan (01/28/2020 11:59 AM LITHOGRAPHIC GENERAL WORKER): Assessment: Marlee is a 19 year old with history of constipation, anxiety, and depression admitted for dehydration functional pain with restrictive eating patterns related to anxiety. Plan: - CT abdomen today to rule out GI pathology causing nausea, vomiting, and poor weight gain. SMA not seen on U/S. - KITTY protocol (Per Nutrition): 300 kcal meals + 200 kcal 8pm snack + 6 cups + 1 Gatorade + IV @ 40 mL/hr; maintain Medical Food Supplements: Replace all uneaten meals and snacks with Ensure (ratio 1:1 or 100%). Give 15 minutes to drink. If does not drink, run remaining volume over 1 hour. Enteral Nutrition: via NG Overnight feeds: Jevity 1.2 run at 60 mL/hr x 9 hours starting at 10pm and ending at 5am Vitamin or Mineral supplements: Monitor electrolytes for refeeding. Continue vitamin D replacement and daily chewable multivitamin. Weights: Daily weights. Goal for gain of 200-300 g/day. - Periactin 4 mg w/ breakfast and dinner, 8mg w/ lunch - TUMS, 1 tab BID - Salt BID - Nexium BID - Miralax PRN - MVI - Vit D low - start 50kU VitD qweek x8 weeks - IV Reglan q6hr prn for nausea (to be given with Benadryl) - Tylenol and Ibuprofen PRN for pain - CR monitors, VS q8hr, strict I/Os, daily weights and orthostatics - PT - Labs QOD Assessment & Plan (01/27/2020 3:59 PM LITHOGRAPHIC GENERAL WORKER): Assessment: Marlee is a 19 year old with history of constipation, anxiety, and depression admitted for dehydration functional pain with restrictive eating patterns related to anxiety. Plan: - CT abdomen today to rule out GI pathology causing nausea, vomiting, and poor weight gain. SMA not seen on U/S. - KITTY protocol (Per Nutrition): 300 kcal meals + 200 kcal 8pm snack + 6 cups + 1 Gatorade + IV @ 40 mL/hr; maintain Medical Food Supplements: Replace all uneaten meals and snacks with Ensure (ratio 1:1 or 100%). Give 15 minutes to drink. If does not drink, run remaining volume over 1 hour. Enteral Nutrition: via NG Overnight feeds: Jevity 1.2 run at 60 mL/hr x 9 hours starting at 10pm and ending at 5am Vitamin or Mineral supplements: Monitor electrolytes for refeeding. Continue vitamin D replacement and daily chewable multivitamin. Weights: Daily weights. Goal for gain of 200-300 g/day. - Periactin 4 mg w/ breakfast and dinner, 8mg w/ lunch - TUMS, 1 tab BID - Salt BID - Nexium BID - Miralax PRN - MVI - Vit D low - start 50kU VitD qweek x8 weeks - IV Reglan q6hr prn for nausea (to be given with Benadryl) - Tylenol and Ibuprofen PRN for pain - CR monitors, VS q8hr, strict I/Os, daily weights and orthostatics - PT - Labs QOD Assessment & Plan (01/26/2020 5:14 PM LITHOGRAPHIC GENERAL WORKER): Assessment: Marlee is a 19 year old with history of constipation, anxiety, and depression admitted for dehydration functional pain with restrictive eating patterns related to anxiety. Plan: - KITTY protocol (Per Nutrition): 01/24: 400 kcal meals + 200 kcal 8pm snack + 6 cups + 1 Gatorade + IV @ 40 mL/hr; maintain and reassess Saturday (01/26) Medical Food Supplements: Replace all uneaten meals and snacks with Ensure (ratio 1:1 or 100%). Give 15 minutes to drink. If does not drink, run remaining volume over 1 hour. Enteral Nutrition: via NG 01/24: Jevity 1.2 run at 60 mL/hr x 9 hours starting at 10pm and ending at 5am; maintain and reassess Saturday (01/26) Vitamin or Mineral supplements: Monitor electrolytes for refeeding. Continue vitamin D replacement and daily chewable multivitamin. Weights: Daily weights. Goal for gain of 200-300 g/day. - Periactin 8mg TID - TUMS, 1 tab BID - Salt BID - Nexium BID - Miralax PRN - MVI - Vit D low - start 50kU VitD qweek x8 weeks - IV Reglan q6hr prn for nausea (to be given with Benadryl) - Tylenol and Ibuprofen PRN for pain - CR monitors, VS q8hr, strict I/Os, daily weights and orthostatics - PT - Labs QOD Assessment & Plan (01/25/2020 2:58 PM LITHOGRAPHIC GENERAL WORKER): Assessment: Marlee is a 19 year old with history of constipation, anxiety, and depression admitted for dehydration functional pain with restrictive eating patterns related to anxiety. Plan: - KITTY protocol (Per Nutrition): 01/24: 400 kcal meals + 200 kcal 8pm snack + 6 cups + 1 Gatorade + IV @ 40 mL/hr; maintain and reassess Saturday (01/26) Medical Food Supplements: Replace all uneaten meals and snacks with Ensure (ratio 1:1 or 100%). Give 15 minutes to drink. If does not drink, run remaining volume over 1 hour. Enteral Nutrition: via NG 01/24: Jevity 1.2 run at 40 mL/hr x 9 hours starting at 10pm and ending at 5am; maintain and reassess Saturday (01/26) Vitamin or Mineral supplements: Monitor electrolytes for refeeding. Continue vitamin D replacement and daily chewable multivitamin. Weights: Daily weights. Goal for gain of 200-300 g/day. - Periactin 8mg TID - TUMS, 1 tab BID - Salt BID - Nexium BID - Miralax PRN - MVI - Vit D low - start 50kU VitD qweek x8 weeks - IV Reglan q6hr prn for nausea (to be given with Benadryl) - Tylenol and Ibuprofen PRN for pain - CR monitors, VS q8hr, strict I/Os, daily weights and orthostatics - Starting physical therapy today (01/24) - Labs QOD Assessment & Plan (01/24/2020 11:54 AM LITHOGRAPHIC GENERAL WORKER): Assessment: Marlee is a 19 year old with history of constipation, anxiety, and depression admitted for dehydration functional pain with restrictive eating patterns related to anxiety. Plan: - KITTY protocol 01/22: 400 kcal meals + 200 kcal snack; 6 cups water + IV @ 50 mL/hr - Replace uneaten meals; NG continuous feeds overnight only - Periactin 8mg TID - TUMS, 1 tab BID - Salt BID - Nexium BID - Miralax PRN - MVI - Vit D low - start 50kU VitD qweek x8 weeks - IV Reglan q6hr prn for nausea (to be given with Benadryl) - Tylenol and Ibuprofen PRN for pain - CR monitors, VS q8hr, strict I/Os, daily weights and orthostatics Assessment & Plan (01/23/2020 7:09 AM LITHOGRAPHIC GENERAL WORKER): Assessment: Marlee is a 19 year old with history of constipation, anxiety, and depression admitted for dehydration functional pain with restrictive eating patterns related to anxiety. Plan: - KITTY protocol 01/22: 400 kcal meals + 200 kcal snack; 6 cups water + IV @ 50 mL/hr - Replace uneaten meals; NG continuous feeds overnight only - Periactin 8mg TID - TUMS, 1 tab BID - Salt BID - Nexium BID - Miralax PRN - MVI - Vit D low - start 50kU VitD qweek x8 weeks - IV Reglan q6hr prn for nausea (to be given with Benadryl) - Tylenol and Ibuprofen PRN for pain - CR monitors, VS q8hr, strict I/Os, daily weights and orthostatics Assessment & Plan (01/22/2020 4:25 PM LITHOGRAPHIC GENERAL WORKER): Assessment: Marlee is a 19 year old with history of constipation, anxiety, and depression admitted for dehydration functional pain with restrictive eating patterns related to anxiety. Plan: - KITTY protocol 01/21: 400 kcal meals + 200 kcal snack; 6 cups water + IV @ 50 mL/hr - Replace uneaten meals; NG continuous feeds overnight only - Periactin 8mg TID - TUMS, 1 tab BID - Salt BID - Nexium BID - Miralax PRN - Vit D low - start 50kU VitD qweek x8 weeks - IV Reglan q6hr prn for nausea (to be given with Benadryl) - Tylenol and Ibuprofen PRN for pain - CR monitors, VS q8hr, strict I/Os, daily weights and orthostatics Assessment & Plan (01/21/2020 8:15 AM LITHOGRAPHIC GENERAL WORKER): Assessment: Marlee Chavez is a 19 year old with history of constipation, anxiety, and depression admitted for dehydration functional pain with restrictive eating patterns related to anxiety. Plan: - KITTY protocol 01/20: 300 kcal meals + 200 kcal snack; 4 cups water + IV @ 60 mL/hr - Replace uneaten meals; NG continuous feeds overnight only - Periactin 8mg TID - TUMS, 1 tab BID - Salt BID - Nexium BID - Miralax PRN - Vit D low - start 50kU VitD qweek x8 weeks - IV Reglan q6hr prn for nausea (to be given with Benadryl) - Tylenol and Ibuprofen PRN for pain - CR monitors, VS q8hr, strict I/Os, daily weights and orthostatics Assessment & Plan (01/20/2020 7:36 AM LITHOGRAPHIC GENERAL WORKER): Assessment: Marlee Chavez is a 19 year old with history of constipation, anxiety, and depression admitted for dehydration functional pain with restrictive eating patterns related to anxiety. Plan: - KITTY protocol 01/19: 300 kcal meals + 100 kcal snack; 4 cups water + IV @ 60 mL/hr - NG continuous feeds - Periactin 8mg TID - TUMS, 1 tab BID - Salt BID - Nexium BID - Miralax PRN - Vit D low - start 50kU VitD qweek x8 weeks - IV Reglan q6hr prn for nausea (to be given with Benadryl) - Tylenol and Ibuprofen PRN for pain - CR monitors, VS q8hr, strict I/Os, daily weights and orthostatics Assessment & Plan (01/19/2020 7:20 AM LITHOGRAPHIC GENERAL WORKER): Assessment: Marlee Chavez is a 19 year old with history of constipation, anxiety, and depression admitted for dehydration functional pain with restrictive eating patterns related to anxiety. Adolescent medicine decided to start continuous NG feeds for the weekend and use meals as additional intake if tolerated. Patient has not endorsed feeling any subjective differences since starting Elavil. Plan: - KITTY protocol 01/18: 200 kcal meals + 100 kcal snack; 3 cups water + IV @ 70 mL/hr 01/19: 300 kcal meals + 100 kcal snack; 4 cups water + IV @ 60 mL/hr - NG continuous feeds - Periactin 8mg TID - TUMS, 1 tab BID - Salt BID - Nexium BID - Miralax PRN - Vit D low - start 50kU VitD qweek x8 weeks - IV Reglan q6hr prn for nausea (to be given with Benadryl) - Tylenol and Ibuprofen PRN for pain - Consult psychology, SW, child life, teacher, nutrition, adolescent medicine - CR monitors, VS q8hr, strict I/Os, daily weights and orthostatics Assessment & Plan (01/18/2020 4:30 PM LITHOGRAPHIC GENERAL WORKER): Assessment: Marlee Chavez is a 19 year old with history of constipation, anxiety, and depression admitted for dehydration functional pain with restrictive eating patterns related to anxiety. Adolescent medicine decided to start continuous NG feeds for the weekend and use meals as additional intake if tolerated. Patient has not endorsed feeling any subjective differences since starting Elavil. Plan: - KITTY protocol 01/17: 100 kcal meals + evening snack; 2 cups water + IV @ 80 mL/hr 01/18: 200 kcal meals + 100 kcal snack; 3 cups water + IV @ 70 mL/hr 01/19: 300 kcal meals + 100 kcal snack; 4 cups water + IV @ 60 mL/hr - NG continuous feeds - Periactin 8mg TID - TUMS, 1 tab BID - Salt BID - Nexium BID - Miralax PRN - Vit D low - start 50kU VitD qweek x8 weeks - IV Reglan q6hr prn for nausea (to be given with Benadryl) - Tylenol and Ibuprofen PRN for pain - Consult psychology, SW, child life, teacher, nutrition, adolescent medicine - CR monitors, VS q8hr, strict I/Os, daily weights and orthostatics Moderate malnutrition 01/02/2020 Assessment & Plan (08/14/2021 9:21 AM CDT): Assessment: Pt ARFID followed by adolescent medicine now with moderate malnutrition (weight loss of 9% of usual body weight) Acute illness likely. Intentional weight loss also possible Plan: - Nutrition following -Follow up with adolescent medicine as outpatient Assessment & Plan (08/12/2021 2:24 PM CDT): Assessment: Pt ARFID followed by adolescent medicine now with moderate malnutrition (weight loss of 9% of usual body weight) Acute illness likely. Intentional weight loss also possible Plan: - Nutrition following -Follow up with adolescent medicine as outpatient Assessment & Plan (08/12/2021 1:44 PM CDT): Assessment: Pt with weight loss of 9% of usual body weight this would qualify her for moderate malnutrition. Acute illness likely contributing. Intentional weight loss also possible Plan: - Nutrition consulted Assessment & Plan (08/11/2021 7:07 AM CDT): Assessment: Pt with weight loss of 9% of usual body weight this would qualify her for moderate malnutrition. Acute illness likely contributing. Intentional weight loss also possible Plan: -Nutrition consult Assessment & Plan (03/27/2020 10:35 AM LITHOGRAPHIC GENERAL WORKER): Assessment: Marlee is admitted on ED Protocol for severe malnutrition. Following feeding plan per Adolescent Medicine and Nutrition. Plan: - see plan under ARFID problem Assessment & Plan (03/26/2020 11:20 AM LITHOGRAPHIC GENERAL WORKER): Assessment: Marlee is admitted on ED Protocol for severe malnutrition. Following feeding plan per Adolescent Medicine and Nutrition. Plan: - see plan under ARFID problem Assessment & Plan (03/24/2020 11:19 AM LITHOGRAPHIC GENERAL WORKER): Assessment: Marlee is admitted on ED Protocol for severe malnutrition. Following feeding plan per Adolescent Medicine and Nutrition. Plan: - see plan under ARFID problem Assessment & Plan (03/23/2020 9:00 AM LITHOGRAPHIC GENERAL WORKER): Assessment: Marlee is admitted on ED Protocol for severe malnutrition. Following feeding plan per Adolescent Medicine and Nutrition. Plan: - see plan under ARFID problem Assessment & Plan (03/22/2020 12:21 PM LITHOGRAPHIC GENERAL WORKER): Assessment: Marlee is admitted on ED Protocol for severe malnutrition. Following feeding plan per Adolescent Medicine and Nutrition. Plan: - see plan under ARFID problem Assessment & Plan (03/17/2020 4:26 PM LITHOGRAPHIC GENERAL WORKER): Assessment: 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 and Anxiety/Depression. Has stuggled with any PO intake, now on KITTY protocol. Continues to have orthostatic heart rate changes. Weight is 41.3 kg, down from 42.6 kg previously. Parents are not at bedside this morning. Plan: - daily weight, continuous CR monitoring, fall precautions, daily orthostatic vitals - strict I/Os - Continue TPN, now at 70 ml/hr with lipids at 16 ml/hr, should resume enteral feeds after enteral access is obtained - Diet: 150 kcal meals (breakfast, lunch and dinner) Replace all uneaten meals and snacks with Ensure. Give 15 minutes to drink. If does not drink, gavage remainder (over 1-2 hours depending on volume; no greater than 70 mL/hr at one time, as this is the largest previously tolerated volume) PO intake limit: Allow a total of 4 ounces between water per shift - Continue medications - Neurontin 600 mg TID - Periactin 4 mg BID with breakfast and dinner, 8 mg with lunch - Nexium 20 mg BID - Prozac 30 mg daily - Lactulose 20 g daily - Melatonin qhs prn - Zyprexa 5 mg QHS - NaCl 1g TID - Vitamin D 1000 units daily - Tylenol prn - Atarax 25 mg TID PRN for anxiety Assessment & Plan (03/15/2020 11:10 AM LITHOGRAPHIC GENERAL WORKER): Assessment: Marlee is admitted on ED Protocol for severe malnutrition. Following feeding plan per Adolescent Medicine and Nutrition. Plan: - see plan under ARFID problem Assessment & Plan (03/10/2020 11:17 AM LITHOGRAPHIC GENERAL WORKER): Assessment: 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 and Anxiety/Depression. Has stuggled with any PO intake, previously had nasoduodenal tube. but lost on 03/07. Has been NPO and on full TPN since then. Continues to have orthostatic heart rate changes. Weight is 41 kg, down from 42.6 kg previously. Parents are not at bedside this morning. 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 and enteral access, following fluoroscopy study on 03/09, no current plan for surgical intervention - Recommend placement of NJ tube (scheduled for 03/11) as previous NJ tube stayed in place the longest and patient had the greatest amount of weight gain with it - Brain MRI on 03/11 to rule out extra-gastrointestinal causes of nausea/vomiting - Continue TPN, now at 70 ml/hr with lipids at 16 ml/hr, should resume enteral feeds after enteral access is obtained - PO intake limit: Allow a total of 4 ounces between water per shift - Continue medications - Klonapin 1.0 mg TID - Periactin 4 mg BID with breakfast and dinner, 8 mg with lunch - Erythromycin 3 mg/kg q6hr - Nexium 20 mg BID - Prozac 30 mg daily - Lactulose 20 g daily - Melatonin qhs prn - Zyprexa 5 mg QHS - NaCl 1g TID - Vitamin D 1000 units daily - Tylenol prn - Atarax 25 mg TID PRN for anxiety - Previously had low TSH - needs repeat next week on levels - Social - parents not at bedside today, will provide updates to them as needed Assessment & Plan (03/06/2020 10:09 AM LITHOGRAPHIC GENERAL WORKER): Assessment: Marlee is admitted on ED Protocol for severe malnutrition. Following feeding plan per Adolescent Medicine and Nutrition. Plan: - see plan under ARFID problem Assessment & Plan (03/04/2020 1:41 PM LITHOGRAPHIC GENERAL WORKER): Assessment: Marlee is admitted on ED Protocol for severe malnutrition. Following feeding plan per Adolescent Medicine and Nutrition. Plan: - see plan under ARFID problem Assessment & Plan (03/04/2020 11:50 AM LITHOGRAPHIC GENERAL WORKER): Assessment: Marlee is admitted on ED Protocol for severe malnutrition. Following feeding plan per Adolescent Medicine and Nutrition. Plan: - see plan under ARFID problem Assessment & Plan (03/03/2020 3:53 PM LITHOGRAPHIC GENERAL WORKER): Assessment: 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 and Anxiety/Depression. Has stuggled with any PO intake, now on TPN and ND feeds. Wt is 40.2 kg the past 3 days, updated weight today is pending. Continues to have orthostatic HR changes. Multiple episodes of emesis overnight. Dad is now spending time with Marlee in the hospital. Plan: - daily weight, continuous CR monitoring, fall precautions, daily orthostatic vitals - strict I/Os - ND feeds: Jevity 1.0, increase to 30ml/hr today - Continue TPN - PO intake limit: Allow a total of 4 ounces between water per shift - Medications - Zyprexa 5mg QHS - Prozac 20 mg daily - Klonapin 0.5mg TID - Periactin 4 mg BID with breakfast and dinner, 8 mg with lunch - Senna BID - Nexium 20 mg BID - Vitamin D - Multivitamin daily - Melatonin qhs prn - Social - Discussed today's plan with both Mom and Dad (individually) also discussed the ND tube with dad. Assessment & Plan (02/27/2020 9:57 AM LITHOGRAPHIC GENERAL WORKER): Assessment: Marlee is admitted on ED Protocol for severe malnutrition. Following feeding plan per Adolescent Medicine and Nutrition. Plan: - see plan under ARFID problem Assessment & Plan (02/26/2020 9:59 AM LITHOGRAPHIC GENERAL WORKER): Assessment: 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 and Anxiety/Depression. Has stuggled with any PO intake, now on TPN and NJ feeds. Wt has been 40.7kg the past 3 days, updated weight today is pending. Continues to have orthostatic HR changes. Multiple episodes of emesis overnight. On Senna/Miralax for constipation, had several loose bowel movements. Plan: - daily weight, continuous CR monitoring, fall precautions, daily orthostatic vitals - strict I/Os - NJ feeds: Jevity 1.0, hold at 60 ml/hr - Continue TPN at 30 ml/hr - Can consider increasing NJ feeds to 70 cc/hr on Saturday/Saturday if tolerating feeds without emesis/abdominal pain - plan to start PO meals on Saturday - PO intake limit: Allow a total of 9 ounces between water (no ice) and sprite per shift--no more than 4 oz of sprite during shift, 2 peppermints per shift, and two packs of crackers/goldfish per shift, one popsicle per shift - Agree with 20cc/kg NS bolus - Medications - Zyprexa 2.5mg QHS - Prozac 15 mg daily, consider going up to 20 mg on Saturday. - Klonapin 0.5mg TID - Periactin 4 mg BID with breakfast and dinner, 8 mg with lunch - Senna BID - Miralax BID - Nexium 20 mg BID - Vitamin D - Multivitamin daily - Melatonin qhs prn - SMA - continue NJ feeds. No imaging currently. - Anemia - Iron studies show low iron with low TIBC and transferrin, likely due to BEVERLY with a concurrent decrease in total body protein (5.2) vs anemia of chronic disease - likely needs iron repletion, not currently tolerating PO well, can consider adding iron dextran in TPN or starting PO ferrous sulfate once tolerating PO better - Social - Mom here and both are aware of and in agreement with the plan. Assessment & Plan (02/25/2020 5:48 PM LITHOGRAPHIC GENERAL WORKER): Assessment: 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 and Anxiety/Depression. Has stuggled with any PO intake, now on TPN and NJ feeds. Wt has been 40.7-40.8kg the past 3 days, updated weight today is pending. Continues to have orthostatic HR changes. On Senna for constipation. Plan: - daily weight, continuous CR monitoring, fall precautions, daily orthostatic vitals - strict I/Os - NJ feeds: Jevity 1.0, increase to 70 ml/hr (after BM) - Decrease TPN to 30 ml/hr (when increasing NJ feeds) - Can consider increasing NJ feeds to 80 cc/hr and decreasing TPN to 20 cc/hr again on Saturday/Saturday, then starting PO meals on Saturday - PO intake limit: 9 oz per shift between cool water (no ice) and sprite--no more than 4 oz of Sprite per shift, 2 packs of crackers/goldfish, 2 peppermints per shift - Medications - Zyprexa 2.5mg QHS - Prozac 15 mg daily, consider going up to 20 mg on Saturday. - Klonapin 0.5mg TID - Periactin 4 mg BID with breakfast and dinner, 8 mg with lunch - Senna BID - Miralax BID - Nexium 20 mg BID - Vitamin D - Multivitamin daily - Melatonin qhs prn - agree with KUB to w/u constipation - SMA - continue NJ feeds. No imaging currently. - Anemia - Iron studies being checked. Concerns about iron bothering her stomach. Will see results. - Social - Mom here and both are aware of and in agreement with the plan. Assessment & Plan (02/18/2020 4:54 PM LITHOGRAPHIC GENERAL WORKER): Assessment: 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 and Anxiety/Depression. Has really stuggled with any intake, now on TPN and NJ feeds Plan: - daily weight, continuous CR monitoring, fall precautions, daily orthostatic vitals - strict I/Os - NJ feeds: Nutren 1.0 50ml/hr - Continue TPN - Medications - Zyprexa 2.5mg QHS - Prozac 10mg daily - Klonapin o.5mg TID - Periactin 4 mg BID with breakfast and dinner, 8mg with lunch - Lactulose Q 48 hr - Phenergan 12.5mg Q 8 hr - Nexium daily - Vitamin D - Multivitamin daily Assessment & Plan (02/11/2020 11:47 AM LITHOGRAPHIC GENERAL WORKER): Assessment: 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 and Anxiety/Depression. Has really stuggled with any intake, now on TPN and NJ feeds Plan: - daily weight, continuous CR monitoring, fall precautions, daily orthostatic vitals - strict I/Os - NJ feeds: Nutren 1.0 40ml/hr - Continue TPN - Medications - Zyprexa 2.5mg QHS - Klonapin o.5mg TID - Periactin 4 mg BID with breakfast and dinner, 8mg with lunch - Lactulose daily PRN - Reglan 4mg Q8 hr - Nexium daily - Vitamin D - Multivitamin daily - Salt tab BID Assessment & Plan (02/09/2020 11:50 AM LITHOGRAPHIC GENERAL WORKER): Assessment: Marlee is admitted on ED Protocol for severe malnutrition. Following feeding plan per Adolescent Medicine and Nutrition. Plan: - see plan under ARFID problem Assessment & Plan (02/07/2020 11:47 AM LITHOGRAPHIC GENERAL WORKER): Assessment: Marlee is admitted on ED Protocol for severe malnutrition. Following feeding plan per Adolescent Medicine and Nutrition. Plan: - see plan under ARFID problem Assessment & Plan (02/06/2020 8:12 AM LITHOGRAPHIC GENERAL WORKER): Assessment: Marlee is admitted on ED Protocol for severe malnutrition. Following feeding plan per Adolescent Medicine and Nutrition. Plan: - see plan under ARFID problem Assessment & Plan (02/05/2020 9:01 AM LITHOGRAPHIC GENERAL WORKER): Assessment: Marlee is admitted on ED Protocol for severe malnutrition. Following feeding plan per Adolescent Medicine and Nutrition. Plan: - see plan under ARFID problem Assessment & Plan (02/04/2020 12:34 PM LITHOGRAPHIC GENERAL WORKER): Assessment: Marlee is admitted on ED Protocol for severe malnutrition. Following feeding plan per Adolescent Medicine and Nutrition. Plan: - see plan under ARFID problem Assessment & Plan (02/03/2020 2:28 PM LITHOGRAPHIC GENERAL WORKER): Assessment: Marlee is admitted on ED Protocol for severe malnutrition. Following feeding plan per Adolescent Medicine and Nutrition. Plan: - see plan under ARFID problem Assessment & Plan (02/02/2020 3:57 PM LITHOGRAPHIC GENERAL WORKER): Assessment: Marlee is admitted on ED Protocol for severe malnutrition. Following feeding plan per Adolescent Medicine and Nutrition. Plan: - see plan under ARFID problem Assessment & Plan (02/01/2020 12:10 PM LITHOGRAPHIC GENERAL WORKER): Assessment: Marlee is admitted on ED Protocol for severe malnutrition. Following feeding plan per Adolescent Medicine and Nutrition. Plan: - see plan under ARFID problem Assessment & Plan (01/31/2020 1:04 PM LITHOGRAPHIC GENERAL WORKER): Assessment: Marlee is admitted on ED Protocol for severe malnutrition. Following feeding plan per Adolescent Medicine and Nutrition. Plan: - see plan under ARFID problem Assessment & Plan (01/30/2020 10:28 AM LITHOGRAPHIC GENERAL WORKER): Assessment: Marlee is admitted on ED Protocol for severe malnutrition. Following feeding plan per Adolescent Medicine and Nutrition. Plan: - see plan under ARFID problem Assessment & Plan (01/28/2020 4:29 PM LITHOGRAPHIC GENERAL WORKER): Assessment: 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 and Anxiety/Depression. Improved PO intake yesterday with very small meals, not taking today. Plan: - Continue eating disorder protocol - daily weight, continuous CR monitoring, fall precautions, daily orthostatic vitals - strict I/Os - Meals and snacks: Eating Disorder Protocol - 300 kcal meals + 200 kcal evening snack - Enteral Plan: 60 mL/hr x 9 hours (10pm to 5am)- Meds and Supplements - Medications - Vit D 50kU qweek x8 weeks - Periactin 4 mg BID with breakfast and dinner, 8mg with lunch - Tums BID - Miralax daily PRN - Nexium daily - Atarax 20 mg TID - Multivitamin daily - Salt tab BID Assessment & Plan (01/24/2020 11:54 AM LITHOGRAPHIC GENERAL WORKER): Assessment: Marlee is admitted on ED Protocol for severe malnutrition. Following feeding plan per Adolescent Medicine and Nutrition. Plan: - see plan under ARFID problem Assessment & Plan (01/23/2020 7:09 AM LITHOGRAPHIC GENERAL WORKER): Assessment: Marlee is admitted on ED Protocol for severe malnutrition. Following feeding plan per Adolescent Medicine and Nutrition. Plan: - see plan under ARFID problem Assessment & Plan (01/22/2020 9:48 AM LITHOGRAPHIC GENERAL WORKER): Assessment: 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 and Anxiety/Depression. Improved PO intake 75-10% of small meals Plan: - Continue eating disorder protocol with modifications over the weekend - daily weight, continuous CR monitoring, fall precautions, daily orthostatic vitals - strict I/Os - Meals and snacks: Eating Disorder Protocol 01/21: 400 kcal meals + 200 kcal 8pm snack + 6 cups water + IV @ 50 mL/hr; hold through weekend Replace all uneaten meals and snacks with Ensure Clear (ratio 1:1 or 100%). Enteral: Jevity 1.2 run at 60 mL/hr x 10 hours starting at 10pm and ending at 6am - Meds and Supplements - Vit D 50kU qweek x8 weeks - Periactin 8 mg TID (will consider tapering as elavil increases) - Tums BID - Miralax daily PRN - Nexium daily - Atarax 20 mg before breakfast, 12.5 mg before lunch /dinner, - Elavil 10 mg at night per psychiatry recommendations (started 01/13/20). Increase by the following as tolerated: 20 mg po qhs x 10 d (01/23/20) 30 mg po qhs x 10 d (02/02/20) 50 mg po qhs x 10 d (02/12/20) 75 mg po qhs () Assessment & Plan (01/22/2020 7:52 AM LITHOGRAPHIC GENERAL WORKER): Assessment: Marlee is admitted on ED Protocol for severe malnutrition. Following feeding plan per Adolescent Medicine and Nutrition. Plan: - see plan under ARFID problem Assessment & Plan (01/21/2020 10:33 AM LITHOGRAPHIC GENERAL WORKER): Assessment: 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 and Anxiety/Depression. Having vomiting and not tolerating eating Plan: - Continue eating disorder protocol with modifications over the weekend - daily weight, continuous CR monitoring, fall precautions, daily orthostatic vitals - strict I/Os - Meals and snacks: Eating Disorder Protocol 01/20: 300 kcal at breakfast, lunch and dinner + 200 kcal 8pm snack + 4 cups water + IV @ 60 mL/hr Replace all uneaten meals and snacks with Ensure Clear (ratio 1:1 or 100%). Enteral: Jevity 1.2 run at 80 mL/hr x 10 hours starting at 10pm and ending at 6am - Meds and Supplements - Vit D 50kU qweek x8 weeks - Periactin 8 mg TID (will consider tapering as elavil increases) - Tums BID - Miralax daily PRN - Nexium daily - Atarax 20 mg before breakfast, 12.5 mg before lunch /dinner, - Elavil 10 mg at night per psychiatry recommendations (started 01/13/20). Increase by the following as tolerated: 20 mg po qhs x 10 d (01/23/20) 30 mg po qhs x 10 d (02/02/20) 50 mg po qhs x 10 d (02/12/20) 75 mg po qhs () Assessment & Plan (01/21/2020 7:40 AM LITHOGRAPHIC GENERAL WORKER): Assessment: Marlee is admitted on ED Protocol for severe malnutrition. Following feeding plan per Adolescent Medicine and Nutrition. Plan: - see plan under ARFID problem Assessment & Plan (01/20/2020 7:36 AM LITHOGRAPHIC GENERAL WORKER): Assessment: Marlee is admitted on ED Protocol for severe malnutrition. Following feeding plan per Adolescent Medicine and Nutrition. Plan: - see plan under ARFID problem Assessment & Plan (01/19/2020 7:22 AM LITHOGRAPHIC GENERAL WORKER): Assessment: Marlee is admitted on ED Protocol for severe malnutrition. Following feeding plan per Adolescent Medicine and Nutrition. Plan: - see plan under ARFID problem Assessment & Plan (01/18/2020 4:25 PM LITHOGRAPHIC GENERAL WORKER): Assessment: Marlee Chavez is a 19 year old with history of constipation, anxiety, and depression admitted for dehydration functional pain with restrictive eating patterns related to anxiety and pain appear. Adolescent medicine decided to start continuous NG feeds for the weekend and use meals as additional intake if tolerated. Patient has not endorsed feeling any subjective differences since starting Elavil. Plan: - KITTY protocol 01/17: 100 kcal meals + evening snack; 2 cups water + IV @ 80 mL/hr 01/18: 200 kcal meals + 100 kcal snack; 3 cups water + IV @ 70 mL/hr 01/19: 300 kcal meals + 100 kcal snack; 4 cups water + IV @ 60 mL/hr - NG continuous feeds - Periactin 8mg TID - TUMS, 1 tab BID - Salt BID - Nexium BID - Miralax PRN - Vit D low - start 50kU VitD qweek x8 weeks - IV Reglan q6hr prn for nausea (to be given with Benadryl) - Tylenol and Ibuprofen PRN for pain - Elavil 10 mg PO qhs Increase by the following as tolerated: 20 mg po qhs x 10 d (01/23/20) 30 mg po qhs x 10 d (02/02/20) 50 mg po qhs x 10 d (02/12/20) 75 mg po qhs () - Consult psychology, SW, child life, teacher, nutrition, adolescent medicine - CR monitors, VS q8hr, strict I/Os, daily weights and orthostatics Assessment & Plan (01/17/2020 12:38 PM LITHOGRAPHIC GENERAL WORKER): Assessment: Marlee Chavez is a 19 year old with history of constipation, anxiety, and depression admitted for dehydration secondary to vomiting and lower quadrant abdominal pain. Work up has included U/S pelvis and abdomen, EGD and colonoscopy, CMP, CBC, lipase, thyroid studies, TTG, CRP and ESR. Results significant for elevated ESR, mild esophagitis only. Inflammatory markers have normalized. BMI has historically been low, but her weight has plateaued over the past few years. Functional pain with restrictive eating patterns related to anxiety and pain appear contributive. Periactin was started and Marlee feels it helped significantly with her nausea. She was started on the KITTY protocol. Adolescent medicine decided to start continuous NG feeds for the weekend and use meals as additional intake if tolerated. Patient has not endorsed feeling any subjective differences since starting Elavil. Plan: - Continue Periactin 8mg TID - Continue TUMS, 1 tab BID - Adolescent medicine consulted and following - start KITTY protocol - consults to psychology, SW, child life, teacher, nutrition - Continue Elavil 10 mg PO qhs (see note for titration plan) - Fecal calprotectin - Vit D low - start 50kU VitD qweek x8 weeks - daily weight and orthostatics - NG continuous feeds per Adolescent and nutrition recs - Continue MIVFS D5NS with 20KCL at 80ml/hr given increased Cr and poor intake - IV Reglan q6hr prn for nausea (to be given with Benadryl) - Tylenol and Ibuprofen PRN for pain - CR monitors, VS q8hr, strict I/Os - Child Life consult re: nonpharmacologic methods to reduce anxiety Assessment & Plan (01/16/2020 1:41 PM LITHOGRAPHIC GENERAL WORKER): Assessment: Marlee Chavez is a 19 year old with history of constipation, anxiety, and depression admitted for dehydration secondary to vomiting and lower quadrant abdominal pain. Work up has included U/S pelvis and abdomen, EGD and colonoscopy, CMP, CBC, lipase, thyroid studies, TTG, CRP and ESR. Results significant for elevated ESR, mild esophagitis only. Inflammatory markers have normalized. BMI has historically been low, but her weight has plateaued over the past few years. Functional pain with restrictive eating patterns related to anxiety and pain appear contributive. Periactin was started and Marlee feels it helped significantly with her nausea. She was started on the KITTY protocol. This morning she was refusing to go to breakfast again, Adolescent medicine decided to start continuous NG feeds for the weekend and use meals as additional intake if tolerated. Agreed to attend group lunch and dinner after refusing breakfast. Plan: - Continue Periactin 8mg TID - Continue TUMS, 1 tab BID - Adolescent medicine consulted and following - start KITTY protocol - consults to psychology, SW, child life, teacher, nutrition - Continue Elavil 10 mg PO qhs (see note for titration plan) - Fecal calprotectin - Vit D low - start 50kU VitD qweek x8 weeks - daily weight and orthostatics - NG continuous feeds per Adolescent and nutrition recs - Continue MIVFS D5NS with 20KCL at 80ml/hr given increased Cr and poor intake - IV Reglan q6hr prn for nausea (to be given with Benadryl) - Tylenol and Ibuprofen PRN for pain - CR monitors, VS q8hr, strict I/Os - Child Life consult re: nonpharmacologic methods to reduce anxiety Assessment & Plan (01/15/2020 8:49 PM LITHOGRAPHIC GENERAL WORKER): Assessment: 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 and Anxiety/Depression. Having vomiting and not tolerating eating Plan: - Continue eating disorder protocol with modifications over the weekend - daily weight, continuous CR monitoring, fall precautions, daily orthostatic vitals - strict I/Os - Meals and snacks: Eating Disorder Protocol Small meals/snacks at meal times, to be eaten out of the room with the other pts No replacement over the weekend Continuous NG feeds Maintenance IV fluids - Meds and Supplements - Vit D low - start 50kU VitD qweek x8 weeks - Periactin 8 mg TID (will consider tapering as elavil increases) - Tums BID - Miralax daily - Nexium daily - Elavil 10 mg at night per psychiatry recommendations (started 01/13/20). Increase by the following as tolerated: 20 mg po qhs x 10 d (01/23/20) 30 mg po qhs x 10 d (02/02/20) 50 mg po qhs x 10 d (02/12/20) 75 mg po qhs () - Would recommend starting PO iron and daily vitamin supplementation once tolerating meals, Plan discussed at length with mom and Marlee, who agree with plan. Spent 30 minutes in discussion and counseling. Assessment & Plan (01/15/2020 11:57 AM LITHOGRAPHIC GENERAL WORKER): Assessment: Marlee Chavez is a 19 year old with history of constipation, anxiety, and depression admitted for dehydration secondary to vomiting and lower quadrant abdominal pain. Work up has included U/S pelvis and abdomen, EGD and colonoscopy, CMP, CBC, lipase, thyroid studies, TTG, CRP and ESR. Results significant for elevated ESR, mild esophagitis only. Inflammatory markers have normalized. BMI has historically been low, but her weight has plateaued over the past few years. Functional pain with restrictive eating patterns related to anxiety and pain appear contributive. Periactin was started and Marlee feels it helped significantly with her nausea. She was started on the KITTY protocol. This morning she was refusing to go to breakfast, Adolescent medicine decided to start continuous NG feeds for the weekend and use meals as additional intake if tolerated. Plan: - Continue Periactin 8mg TID - Continue TUMS, 1 tab BID - Adolescent medicine consulted and following - start KITTY protocol - consults to psychology, SW, child life, teacher, nutrition - Continue Elavil 10 mg PO qhs (see note for titration plan) - Fecal calprotectin - Vit D low - start 50kU VitD qweek x8 weeks -daily weight and orthostatics - NG continuous feeds per Adolescent and nutrition recs - Continue MIVFS D5NS with 20KCL at 80ml/hr given increased Cr and poor intake - IV Reglan q6hr prn for nausea (to be given with Benadryl) -Tylenol and Ibuprofen PRN for pain -CR monitors, VS q8hr, strict I/Os -Child Life consult re: nonpharmacologic methods to reduce anxiety Assessment & Plan (01/14/2020 1:00 PM LITHOGRAPHIC GENERAL WORKER): Assessment: 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 and Anxiety/Depression. Has not yet been eating food, but has taken required replacement PO. Plan: - Continue eating disorder protocol - daily weight, continuous CR monitoring, fall precautions, daily orthostatic vitals - strict I/Os - Meals and snacks: Eating Disorder Protocol 01/13: 1500 kcal + 7 cups + 1 Gatorade + IV @ 80 mL/hr 01/14: 1600 kcal (start 8pm snack) + 7 cups + 2 Gatorades + IV @ 70 mL/hr Will allow for extra snacks if hungry - Will hold replacing NG for now - Meds and Supplements - Vit D low - start 50kU VitD qweek x8 weeks - Periactin 8 mg TID (will consider tapering as elavil increases) - Tums BID - Miralax daily - Nexium daily - Elavil 10 mg at night per psychiatry recommendations (started 01/13/20). Increase by the following as tolerated: 20 mg po qhs x 10 d (01/23/20) 30 mg po qhs x 10 d (02/02/20) 50 mg po qhs x 10 d (02/12/20) 75 mg po qhs () Assessment & Plan (01/14/2020 9:54 AM LITHOGRAPHIC GENERAL WORKER): Assessment: Marlee Chavez is a 19 year old with history of constipation, anxiety, and depression admitted for dehydration secondary to vomiting and lower quadrant abdominal pain. Work up has included U/S pelvis and abdomen, EGD and colonoscopy, CMP, CBC, lipase, thyroid studies, TTG, CRP and ESR. Results significant for elevated ESR, mild esophagitis only. Inflammatory markers have normalized. BMI has historically been low, but her weight has plateaued over the past few years. Functional pain with restrictive eating patterns related to anxiety and pain appear contributive. Periactin was started and Marlee feels it helped significantly with her nausea. She was started on the KITTY protocol yesterday. She was also orthostatic by HR this AM and noted to have near-syncopal feelings again, similar to yesterday. Increased creatinine on labs this AM, evidence of NADIR secondary to dehydration, will need IV placement for maintenance fluid resuscitation. Plan: - Continue Periactin 8mg TID - Continue TUMS, 1 tab BID - Adolescent medicine consulted and following - start KITTY protocol - consults to psychology, SW, child life, teacher, nutrition - Continue Elavil 10 mg PO qhs (see note for titration plan) - Fecal calprotectin - Vit D low - start 50kU VitD qweek x8 weeks -daily weight and orthostatics - NG feeds for meal replacement, will follow nutrition recs - Restart MIVFS D5NS with 20KCL at 80ml/hr given increased Cr and poor intake - IV Reglan q6hr prn for nausea (to be given with Benadryl) -Tylenol and Ibuprofen PRN for pain -CR monitors, VS q8hr, strict I/Os -Child Life consult re: nonpharmacologic methods to reduce anxiety Assessment & Plan (01/13/2020 2:34 PM LITHOGRAPHIC GENERAL WORKER): Assessment: Marlee Chavez is a 19 year old with history of constipation, anxiety, and depression admitted for dehydration secondary to vomiting and lower quadrant abdominal pain. Work up has included U/S pelvis and abdomen, EGD and colonoscopy, CMP, CBC, lipase, thyroid studies, TTG, CRP and ESR. Results significant for elevated ESR, mild esophagitis only. Inflammatory markers have normalized. BMI has historically been low, but her weight has plateaued over the past few years. Functional pain with restrictive eating patterns related to anxiety and pain appear contributive. Periactin was started and Marlee feels it helped significantly with her nausea. She was started on the KITTY protocol this morning. She was also orthostatic by HR this AM (108 bpm while lying, and 168 bpm while standing) and noted to have near-syncopal feelings. Plan: - Continue Periactin 8mg TID - Continue TUMS, 1 tab BID - Adolescent medicine consulted and following - start KITTY protocol - consults to psychology, SW, child life, teacher, nutrition - Psychiatry consult again today - recommended started Elavil 10 mg PO qhs (see note for titration plan) - Fecal calprotectin - Vit D low - start 50kU VitD qweek x8 weeks -daily weight and orthostatics - NG feeds for meal replacement, will follow nutrition recs -1.25 MIVFS D5NS with 20KCL at 20ml/hr given poor intake and emesis - IV Reglan q6hr prn for nausea (to be given with Benadryl) -Tylenol and Ibuprofen PRN for pain -CR monitors, VS q8hr, strict I/Os -Child Life consult re: nonpharmacologic methods to reduce anxiety Assessment & Plan (01/13/2020 12:01 PM LITHOGRAPHIC GENERAL WORKER): Moderate protein-calorie malnutrition Assessment: Marlee Chavez is a 19 year old with history of constipation, anxiety, and depression admitted for dehydration secondary to vomiting and lower quadrant abdominal pain. Work up has included U/S pelvis and abdomen, EGD and colonoscopy, CMP, CBC, lipase, thyroid studies, TTG, CRP and ESR. BMI has historically been low, but her weight has plateaued over the past few years. Having regular periods. Denies dizziness. Functional pain with restrictive eating patterns related to anxiety and pain appear contributive. Reports significant improvement with Peractin. Starting KITTY protocol Plan: - daily weight, continuous CR monitoring, fall precautions, daily orthostatic vitals - strict I/Os, Meals and snacks: Eating Disorder Protocol 01/12: 1400 kcal (no 8pm snack) + 6 cups + 1 Gatorade + IV @ 20 mL/hr 01/13: 1500 kcal + 7 cups + 1 Gatorade + IV @ 20 mL/hr 01/14: 1600 kcal (start 8pm snack) + 7 cups + 2 Gatorades + IV @ 20 mL/hr *allowed 1 pack of crackers in between meals and snacks if feeling hungry/nauseous* - keep NG tube in place for now, will re-evaluate 01/14 -Meds and Supplements - Vit D low - start 50kU VitD qweek x8 weeks - continue Periactin 8 mg TID (will consider tapering as elavil increases) - Tums BID - Start Elavil 10 mg at night per psychiatry recommendations. Increase by the following as tolerated: 10 mg po qhs x 10 d 20 mg po qhs x 10 d 30 mg po qhs x 10 d 50 mg po qhs x 10d 75 mg po qhs thereafter Assessment & Plan (01/12/2020 3:40 PM LITHOGRAPHIC GENERAL WORKER): Moderate protein-calorie malnutrition Assessment: Marlee Chavez is a 19 year old with history of constipation, anxiety, and depression admitted for dehydration secondary to vomiting and lower quadrant abdominal pain. Work up has included U/S pelvis and abdomen, EGD and colonoscopy, CMP, CBC, lipase, thyroid studies, TTG, CRP and ESR. BMI has historically been low, but her weight has plateaued over the past few years. Having regular periods. Denies dizziness. Functional pain with restrictive eating patterns related to anxiety and pain appear contributive. Reports significant improvement with Peractin. Starting KITTY protocol Plan: - KITTY protocol - daily weight, continuous CR monitoring, fall precautions, daily orthostatic vitals - strict I/Os, - Meals and snacks: Eating Disorder Protocol - diet based on nutrition recs - Replace all uneaten meals and snacks with Ensure. Give 15 minutes to drink. - fluids at 20 ml/hr - adjust based on diet recs and intake - consults psychology, psychiatry, child life, music therapy - Vit D low - start 50kU VitD qweek x8 weeks - continue Periactin 8 mg TID - Tums BID - Follow up with Dr. Haleigh You interested in meeting - Repeat height (discrepency in growth chart) Assessment & Plan (01/12/2020 1:25 PM LITHOGRAPHIC GENERAL WORKER): Assessment: Marlee Chavez is a 19 year old with history of constipation, anxiety, and depression admitted for dehydration secondary to vomiting and lower quadrant abdominal pain. Work up has included U/S pelvis and abdomen, EGD and colonoscopy, CMP, CBC, lipase, thyroid studies, TTG, CRP and ESR. Results significant for elevated ESR, mild esophagitis only. Inflammatory markers have normalized. BMI has historically been low, but her weight has plateaued over the past few years. Functional pain with restrictive eating patterns related to anxiety and pain appear contributive. Periactin was started and Marlee feels it helped significantly with her nausea. She has been doing well with the NG feeds overnight. In agreement with KITTY protocol. Plan: - Continue Periactin 8mg TID - Continue TUMS, 1 tab BID - Adolescent medicine consulted and following - start KITTY protocol - consults to psychology, SW, child life, teacher, nutrition - Psychiatry consult again today - Marlee agrees to this - Fecal calprotectin - Vit D low - start 50kU VitD qweek x8 weeks -daily weight and orthostatics - Advance NG feeds to 40 mL/hr, will follow nutrition recs -1.25 MIVFS D5NS with 20KCL at 100ml/hr given poor intake and emesis - IV Reglan q6hr prn for nausea (to be given with Benadryl) -Tylenol and Ibuprofen PRN for pain -CR monitors, VS q8hr, strict I/Os -Child Life consult re: nonpharmacologic methods to reduce anxiety Assessment & Plan (01/11/2020 11:43 AM LITHOGRAPHIC GENERAL WORKER): Assessment: Marlee Chavez is a 19 year old with history of constipation, anxiety, and depression admitted for dehydration secondary to vomiting and lower quadrant abdominal pain. Work up has included U/S pelvis and abdomen, EGD and colonoscopy, CMP, CBC, lipase, thyroid studies, TTG, CRP and ESR. Results significant for elevated ESR, mild esophagitis only. BMI has historically been low, but her weight has plateaued over the past few years. Functional pain with restrictive eating patterns related to anxiety and pain appear contributive. Periactin was started yesterday and Marlee feels it helped significantly with her nausea. She has been doing well with the NG feeds overnight. Plan: - Continue Periactin to 8mg TID - ContinueTUMS, 1 tab daily for hypocalcemia - Adolescent medicine consult - Psychiatry consult - Fecal calprotectin - Vit D - normal -daily weight and orthostatics - Advance NG feeds to 40 mL/hr, will follow nutrition recs -1.25 MIVFS D5NS with 20KCL at 100ml/hr given poor intake and emesis - IV Reglan q6hr prn for nausea (to be given with Benadryl) -Tylenol and Ibuprofen PRN for pain -CR monitors, VS q8hr, strict I/Os -Child Life consult re: nonpharmacologic methods to reduce anxiety -Radiology recommended repeat imaging in 6 months for ovarian cysts Assessment & Plan (01/10/2020 9:32 AM LITHOGRAPHIC GENERAL WORKER): Assessment: Marlee Chavez is a 19 year old with history of constipation, anxiety, and depression admitted for dehydration secondary to vomiting and lower quadrant abdominal pain. Work up has included U/S pelvis and abdomen, EGD and colonoscopy, CMP, CBC, lipase, thyroid studies, TTG, CRP and ESR. Results significant for elevated ESR, mild esophagitis only. BMI has historically been low, but her weight has plateaued over the past few years. Functional pain with restrictive eating patterns related to anxiety and pain appear contributive. Periactin was started yesterday and Marlee feels it helped significantly with her nausea. She was not able to meet nutritional goals yesterday, this morning NG feeds were discussed with pt and plan to place NG today and start feeds per nutrition recs. Plan: - Continue Periactin to 8mg TID - Start TUMS, 1 tab daily for hypocalcemia - Fecal calprotectin - Vit D - normal -daily weight and orthostatics -Start NG feeds, will follow nutrition recs -1.25 MIVFS D5NS with 20KCL at 100ml/hr given poor intake and emesis - IV Reglan q6hr prn for nausea (to be given with Benadryl) -Tylenol and Ibuprofen PRN for pain -CR monitors, VS q8hr, strict I/Os -Child Life consult re: nonpharmacologic methods to reduce anxiety -Radiology recommended repeat imaging in 6 months for ovarian cysts Assessment & Plan (01/09/2020 11:08 AM LITHOGRAPHIC GENERAL WORKER): Assessment: Marlee Chavez is a 19 year old with history of constipation, anxiety, and depression admitted for dehydration secondary to vomiting and lower quadrant abdominal pain. Work up has included U/S pelvis and abdomen, EGD and colonoscopy, CMP, CBC, lipase, thyroid studies, TTG, CRP and ESR. Results significant for elevated ESR, mild esophagitis only. BMI has historically been low, but her weight has plateaued over the past few years. Functional pain with restrictive eating patterns related to anxiety and pain appear contributive. Periactin was started yesterday and Marlee feels it helped significantly with her nausea. NG feeds have been discussed with Pt, who wishes strongly to avoid this if possible. She did not meet her calorie goals overnight, she was eating pureed baby food on exam this morning and agreed to let her try PO feeds this morning before placing NG, she also understands that if she can't keep her feeds down she will need NG tube placed this afternoon for nutrition. Plan: - Continue Periactin to 8mg TID - Fecal calprotectin - Vit D - normal -daily weight and orthostatics -If needing NG feeds, will follow nutrition recs -1.25 MIVFS D5NS with 20KCL at 100ml/hr given poor intake and emesis - IV Reglan q6hr prn for nausea (to be given with Benadryl) -Tylenol and Ibuprofen PRN for pain -CR monitors, VS q8hr, strict I/Os -Child Life consult re: nonpharmacologic methods to reduce anxiety -Radiology recommended repeat imaging in 6 months for ovarian cysts Assessment & Plan (01/08/2020 1:32 PM LITHOGRAPHIC GENERAL WORKER): Assessment: Marlee Chavez is a 19 year old with history of constipation, anxiety, and depression admitted for dehydration secondary to vomiting and lower quadrant abdominal pain. Work up has included U/S pelvis and abdomen, EGD and colonoscopy, CMP, CBC, lipase, thyroid studies, TTG, CRP and ESR. Results significant for elevated ESR, mild esophagitis only. BMI has historically been low, but her weight has plateaued over the past few years. Functional pain with restrictive eating patterns related to anxiety and pain appear contributive. Periactin was started yesterday and Alphonse feels it helped significantly with her nausea. NG feeds have been discussed with Pt, who wishes strongly to avoid this if possible. Plan: - Increase Periactin to 8mg TID - Fecal calprotectin - Vit D pending -daily weight and orthostatics -nutrition consult to identify caloric goals. If needing NG feeds, will request assistance with feeding titration -1.25 MIVFS D5NS with 20KCL at 100ml/hr given poor intake and emesis - IV Reglan q6hr prn for nausea (to be given with Benadryl) -Tylenol and Ibuprofen PRN for pain -CR monitors, VS q8hr, strict I/Os -Child Life consult re: nonpharmacologic methods to reduce anxiety -Radiology recommended repeat imaging in 6 months for ovarian cysts Assessment & Plan (01/07/2020 2:52 PM LITHOGRAPHIC GENERAL WORKER): Assessment: Marlee Chavez is a 19 year old with history of constipation, anxiety, and depression admitted for vomiting and lower quadrant abdominal pain. US revealed small ovarian cysts, but no torsion and normal appendix. Concern for viral illness or intermittent torsion. BMI is very low at 16 and history revealed she has been small her entire life. Denies any history of eating disorder. Differentials include ovarian cysts vs gastroenteritis vs functional abdominal pain vs other. FOBT was negative. Upper and lower GI scopes did not indicate a specific cause of her symptoms, biopsy was normal. Periactin was started yesterday and Alphonse feels it helped significantly with her nausea. Trialing increased PO intake today with minimal intake(half a yogurt for breakfast), therefore Marlee will remain inpatient until better PO. Plan: - Cont Periactin 4mg TID-helped moderately/greatly per patient, can increase to 8mg per GI if needed - Fecal calprotectin-needs to be collected - Vit D pending - Iron study labs showed low iron IV Fe started today -ekg today to observe for arrythimas 2:2 electrolyte imbalance-unimpressive -daily weight and orthostatics -unable to contact nutrition, will attempt again tomorrow -1.25 MIVFS D5NS with 20KCL at 100ml/hr given poor intake and emesis - IV Reglan q6hr prn for nausea (to be given with Benadryl) - IV Benadryl q6hr prn for nausea (given with reglan) -Tylenol and Ibuprofen PRN for pain -CR monitors, VS q8hr, strict I/Os -Radiology recommended repeat imaging in 6 months for ovarian cysts Assessment & Plan (01/06/2020 11:27 AM LITHOGRAPHIC GENERAL WORKER): Assessment: Marlee Chavez is a 19 year old with history of constipation, anxiety, and depression admitted for vomiting and lower quadrant abdominal pain. US revealed small ovarian cysts, but no torsion and normal appendix. Concern for viral illness or intermittent torsion. BMI is very low at 16 and history revealed she has been small her entire life. Denies any history of eating disorder. Differentials include ovarian cysts vs gastroenteritis vs functional abdominal pain vs other. FOBT was negative. Upper and lower GI scopes did not indicate a specific cause of her symptoms, awaiting biopsy results. Will try Periactin 4mg, per discussion with GI. Plan: - Start Periactin 4mg TID - Fecal calprotectin - Iron study labs - Iron, TIBC, Vit D -1.25 MIVFS D5NS with 20KCL at 100ml/hr given poor intake and emesis - IV Reglan q6hr prn for nausea (to be given with Benadryl) - IV Benadryl q6hr prn for nausea (given with reglan) -Tylenol and Ibuprofen PRN for pain -CR monitors, VS q8hr, strict I/Os -Radiology recommended repeat imaging in 6 months for ovarian cysts Assessment & Plan (01/05/2020 3:49 PM LITHOGRAPHIC GENERAL WORKER): Assessment: Marlee Chavez is a 19 year old with history of constipation, anxiety, and depression admitted for vomiting and lower quadrant abdominal pain. US revealed small ovarian cysts, but no torsion and normal appendix. Concern for viral illness or intermittent torsion. BMI is very low at 16 and history revealed she has been small her entire life. Denies any history of eating disorder. Differentials include ovarian cysts vs gastroenteritis vs IBD vs other. FOBT was negative. Plan: - Endoscopy today -1.25 MIVFS D5NS with 20KCL at 100ml/hr given poor intake and emesis - IV Reglan q6hr prn for nausea (to be given with Benadryl) - IV Benadryl q6hr prn for nausea (given with reglan) -Tylenol and Ibuprofen PRN for pain -F/u celiacs labs -CR monitors, VS q8hr, strict I/Os -Radiology recommended repeat imaging in 6 months for ovarian cysts Assessment & Plan (01/04/2020 1:53 PM LITHOGRAPHIC GENERAL WORKER): Assessment: Marlee Chavez is a 19 year old with history of constipation, anxiety, and depression who is being admitted for vomiting and lower quadrant abdominal pain. Exam negative for guarding and rebound, but does have periumbilical tenderness. US revealed small ovarian cysts, but no torsion and normal appendix. She has leukocytosis with left shift on CBC which suggests infection. Has not had any strange foods and no other sick contacts. Some vomiting after eating some crackers yesterday. She also has a microcytic anemia that may be secondary to menorrhagia. Concern for viral illness or intermittent torsion. She does have history of chronic abdominal pain that worsens during her periods. Mother noted some improvement when cutting gluten from her diet; will follow up on TTG and IGA for Celiac disease. BMI is very low at 16 and history revealed she has been small her entire life. Denies any history of eating disorder. Differentials include ovarian cysts vs gastroenteritis vs IBD vs other. FOBT was negative. Plan: - GI Consult -1.25 MIVFS D5NS with 20KCL at 100ml/hr given poor intake and emesis - IV Reglan q6hr prn for nausea (to be given with Benadryl) - IV Benadryl q6hr prn for nausea (given with reglan) -Tylenol and Ibuprofen PRN for pain -Can use Toradol instead of Ibuprofen if no improvement -Clear liquid diet, advance as tolerated -F/u celiacs labs -CR monitors, VS q8hr, strict I/Os -Radiology recommended repeat imaging in 6 months for ovarian cysts Assessment & Plan (01/03/2020 12:34 AM LITHOGRAPHIC GENERAL WORKER): Assessment: Marlee Chavez is a 19 year old with history of constipation, anxiety, and depression who is being admitted for vomiting and lower quadrant abdominal pain. Exam negative for guarding and rebound, but does have periumbilical tenderness. US revealed small ovarian cysts, but no torsion and normal appendix. She has leukocytosis with left shift on CBC which suggests infection. Has not had any strange foods and no other sick contacts. Some vomiting after eating some crackers yesterday. She also has a microcytic anemia that may be secondary to menorrhagia. Concern for viral illness or intermittent torsion. She does have history of chronic abdominal pain that worsens during her periods. Mother noted some improvement when cutting gluten from her diet; will follow up on TTG and IGA for Celiac disease. BMI is very low at 15 and history revealed she has been small her entire life. Denies any history of eating disorder. Differentials include ovarian cysts vs gastroenteritis vs intermittent ovarian torsion. Plan: Admit to general medicine, Dr. Valdez -1.25 MIVFS D5NS with 20KCL at 100ml/hr given poor intake and emesis -Zofran q4hr prn for nausea -Tylenol and Ibuprofen PRN for pain -Can use Toradol instead of Ibuprofen if no improvement -Clear liquid diet, advance as tolerated -Repeat CBC in AM -F/u celiacs labs -CR monitors, VS q8hr, strict I/Os -Radiology recommended repeat imaging in 6 months for ovarian cysts Generalized anxiety disorder 03/25/2017 Resolved Problems Problem Noted Date Diagnosed Date Resolved Date Major depressive disorder, recurrent 04/23/2023 10/04/2023 Lactic acidosis 06/26/2022 08/19/2022 Leukocytosis, unspecified type 06/18/2022 03/18/2023 Pancolitis 06/18/2022 03/18/2023 Sepsis, due to unspecified o rganism, unspecified whether acute organ dysfunction present 06/18/2022 03/18/2023 Nausea and vomiting, unspeci fied vomiting type 03/26/2022 03/18/2023 Eating disorder, unspecified 03/26/2022 03/18/2023 Hypokalemia 02/14/2022 03/20/2023 Current severe episode of ma jose enrique depressive disorder without psychotic features, unspecified whether recurrent 02/14/2022 03/18/2023 Electrolyte abnormality 01/23/202206/2023 Intractable nausea and vomiting 10/29/2021 03/18/2023 Assessment & Plan (10/29/2021 8:09 PM CDT): Assessment: Marlee Chavez is a 20 year old female with history of anxiety, depression, SMA syndrome, hyperemesis cannabinoid syndrome and Avoidant- restrictive food intake disorder (ARFID) admitted for management of intractable nausea and vomiting associated with abdominal pain and decreased PO intake. Abdominal pain and emesis likely due to acute on chronic exacerbation of SMA syndrome pain vs cannabinoid hyperemesis vs somatization. Labs consistent with mild hypokalemia (3.4), metabolic acidosis (bicarb 18). GGT, lipase and liver enzymes wnl. Patient requires admission for pain control, IV fluid hydration, and further work up of abdominal pain. Plan: Admit to General medicine (purple team)- [facility] -Continue home medications: Zyprexa, Periactin, clonazepam, prozac, gabapentin, seroquel -Zofran 4mg q6h for nausea/vomiting -Motrin q6h prn for pain -Capsacin cream q4h while awake -Adolescent Medicine consult -Consider STI testing given history of unprotected sexual activity - Follow up UA/UDS -Regular diet -Daily weights -CR Monitoring -VS q8h -Strict I/OS Full Code Access: PIV Viral gastroenteritis 08/13/[id number] Assessment & Plan (08/14/2021 8:43 AM CDT): Assessment: 20 year old female MDD, anxiety disorder, anxiety, purging, ARFID, SMA syndrome, and chronic marijuana use hospitalized with several days of acute onset worsening severe garrett-umbilical abdominal pain, nausea, and emesis. Viral gastroenteritis most likely with concurrent symptoms of hot flashes, cough, rhinorrhea, as well as findings of elevated AST/ALT. Cannabinoid hyperemesis syndrome also likely contributing given history and patient's report of nausea improving with hot showers. Constipation could also be contributing to abdominal pain. Gastritis and esophagitis possible with history of purging and now limited oral intake and emesis though pain location atypical. Plan: - Encourage oral fluids - Continue scheduled -PO zofran -H2 jong -Capsacin cream - miralax and colace daily - mIVF with glucose -prn benadryl for nausea - Motrin q6h prn for pain -prn ice packs -Hot showers prn -If pt continues to feel better with no emesis, change zofran to prn Abdominal pain, generalized 08/10/2021 03/18/2023 Assessment & Plan (01/24/2022 5:04 PM LITHOGRAPHIC GENERAL WORKER): Assessment: Marlee Chavez is a 20 year old female with history of anxiety, depression, SMA syndrome, hyperemesis cannabinoid syndrome and Avoidant-restrictive food intake disorder (ARFID) admitted for abdominal pain, vomiting, and decreased PO. Labs remarkable for electrolyte abnormalities NA 128, K 2.8, Cl 84 and elevated liver enzymes. CBC with elevated WBC at 12.9 w/ neutrophilic predominance. UDS positive for Cannabinoids. UA with 1+ protein, 1+ ketones, and 21-50 WBC. Urine culture pending. Etiology of abdominal pain likely due to acute on chronic exacerbation of SMA syndrome pain vs cannabinoid hyperemesis vs somatization vs infection. She requires admission for IV hydration, monitoring for refeeding, and further workup of abdominal pain. Plan: - Discussed with Adolescent, no further recommendations at this time - Nutrition consult, appreciate recommendations - Advance to regular diet as tolerated - Ensure Plus BID, if not taken PO may gavage through NG - Thiamine 100 mg x5 days - Multivitamin - Daily labs RFP, Mg to monitor for refeeding and replete electrolytes as needed - Continue mIVF D5NS with 20 mEq KCl at 90 ml/hr, may wean as PO improves - RFP and Mg in AM - Urine culture 50,000-100,000 Group B strep, patient is asymptomatic, likely a contaminant and will not require treatment at this time - Ibuprofen 600 mg q4hr for pain - Zofran 4mg q6hr for nausea/vomiting - Strict I/Os - Vitals q - CRM - Continuous pulse ox - Continue home medications: klonopin, quetiapine, olanzapine, periactin, fluoxetine, gabapentin Assessment & Plan (01/23/2022 6:56 PM LITHOGRAPHIC GENERAL WORKER): Assessment: Marlee Chavez is a 20 year old female with history of anxiety, depression, SMA syndrome, hyperemesis cannabinoid syndrome and Avoidant-restrictive food intake disorder (ARFID) admitted for abdominal pain, vomiting, and decreased PO. Labs remarkable for electrolyte abnormalities NA 128, K 2.8, Cl 84 and elevated liver enzymes. CBC with elevated WBC at 12.9 w/ neutrophilic predominance. UDS positive for Cannabinoids. UA with 1+ protein, 1+ ketones, and 21-50 WBC. Urine culture pending. Etiology of abdominal pain likely due to acute on chronic exacerbation of SMA syndrome pain vs cannabinoid hyperemesis vs somatization vs infection. She requires admission for IV hydration, monitoring for refeeding, and further workup of abdominal pain. Plan: - Admit to General Medicine (Purple team), Dr. Krishnan - NPO - Continue mIVF D5NS with 20 mEq KCl at 90 ml/hr - RFP and Mg in AM - Ibuprofen 600 mg q4hr for pain - Zofran 4mg q6hr for nausea/vomiting - Strict I/Os - Vitals q - CRM - Continuous pulse ox - Continue home medications: klonopin, quetiapine, olanzapine, periactin, fluoxetine, gabapentin Severe dehydration 08/10/2021 2 Assessment & Plan (08/10/2021 12:50 PM CDT): Assessment: Pt with significant anion gap metabolic acidosis. Lactic acidosis secondary to severe dehydration most likely. Alcohol or salicylate poisoning also a consideration despite history. Pt s/p fluid resuscitation Plan: -check ASA and alcohol level -Follow up comprehensive drug screen -Strict I/Os Assessment & Plan (08/10/2021 4:57 AM CDT): Assessment: Marlee Chavez is a 20 year old female with history of anxiety, depression, SMA syndrome, and Avoidant-restrictive food intake disorder (ARFID) admitted for management of starvation ketosis secondary to abdominal pain, emesis and decreased po intake. Abdominal pain and emesis likely acute on chronic exacerbation of SMA syndrome pain vs cannabinoid hyperemesis vs somatization. Labs consistent with transaminitis (ALT 892, AST 496), elevated lipase, mildly metabolic acidosis secondary to ketone bodies all able to be explained by starvation ketosis. Patient requires admission for pain control, IV fluid hydration, and further work up of abdominal pain. Plan: Admit to General medicine (orange team)- Dr.Marta Ledbetter -mIVF LR at 100ml/hr -Continue home medications: Zyprexa, Periactin, clonazepam, prozac, gabapentin, seroquel -Zofran 4mg prn for nausea/vomiting -Motrin q6h prn for pain -Capsacin cream prn -Adolescent Medicine consult -Regular diet -Daily weights -CR Monitoring -VS q8h -SCDs for DVT prophylaxis -Strict I/OS Full Code Access: PIV Metabolic acidosis 08/10/2021 Assessment & Plan (08/11/2021 3:44 PM CDT): Assessment: Patient with persistent anion gap metabolic acidosis despite fluid resuscitation. Ketosis most likely with ketonuria present on admission, very limited oral intake, and IVF without glucose. Ingestion of iron also a consideration given pt's psychiatric history include more remote self harm history. Ingestion of ASA or alcohol unlikely with negative labs. Plan: -Add glucose to IVF -Check blood gas, lactate, iron level and abdominal film (iron pill fragments) to evaluate for alternative causes Hepatitis 08/10/2021 03/18/2023 Assessment & Plan (08/12/2021 2:23 PM CDT): Assessment:Pt with significantly elevated though now decreasing AST and ALT in the setting of presumed viral illness. Liver inflammation due to non hepatitis B/C viral illness most likely. Plan: - monitor CMPs daily Assessment & Plan (08/12/2021 1:44 PM CDT): Assessment:Pt with significantly elevated though now decreasing AST and ALT in the setting of presumed viral illness. Liver inflammation due to non hepatitis B/C viral illness most likely. Plan: - monitor CMPs daily Assessment & Plan (08/11/2021 1:09 PM CDT): Assessment:Pt with significantly elevated AST and ALT in the setting of presumed viral illness. Liver inflammation due to viral illness most likely. Toxic ingestion also a consideration given ongoing marijuana use. Stage 2 acetaminophen overdose with symptoms following acetaminophen clearance also a consideration Plan: -PT/PTT/INR WNL -monitor CMPs daily Assessment & Plan (08/10/2021 1:03 PM CDT): Assessment:Pt with significantly elevated AST and ALT in the setting of presumed viral illness. Liver inflammation due to viral illness most likely. Toxic ingestion also a consideration given ongoing marijuana use. Stage 2 acetaminophen overdose with symptoms following acetaminophen clearance also a consideration Plan: -PT/PTT/INR to assess liver synthetic function -monitor CMPs daily Surveillance of (intrauterin e) contraceptive device 01/19/2021 12/07/2021 Overview (01/19/2021): 01/19/2021 Mirena IUD Intractable vomiting with nausea 01/03/2021 08/13/2021 Assessment & Plan (08/13/2021 4:38 PM CDT): Assessment: Marlee is an 20 year old female MDD, anxiety disorder, anxiety, purging, ARFID, SMA syndrome, and chronic marijuana use hospitalized with several days of acute onset worsening severe garrett-umbilical abdominal pain, nausea, and emesis. Viral syndrome most likely with concurrent symptoms of hot flashes, cough, rhinorrhea, as well as findings of elevated AST/ALT. Cannabinoid hyperemesis syndrome also likely contributing given history and patient's report of nausea improving with hot showers. Constipation could also be contributing to abdominal pain. Dysmenorrhea also a consideration (pt with IUD and rare periods). Gastritis and esophagitis possible with history of purging and now limited oral intake and emesis though pain location atypical. Pt improving with decreased pain and decreased nasuea and emesis. Continues to require IVF as she has not met fluid intake goal. Plan: - Encourage oral fluids. 1L intake is threshold for discharge - Button ready - Continue scheduled -IV zofran -H2 jong -Capsacin cream - miralax and colace daily - mIVF with glucose -prn benadryl for nause - Motrin q6h prn for pain -prn ice packs -Hot showers prn -If pt continues to feel better with no emesis, change zofran to prn Assessment & Plan (08/13/2021 4:00 PM CDT): Assessment: Marlee is an 20 year old female MDD, anxiety disorder, anxiety, purging, ARFID, SMA syndrome, and chronic marijuana use hospitalized with several days of acute onset worsening severe garrett-umbilical abdominal pain, nausea, and emesis. Viral syndrome most likely with concurrent symptoms of hot flashes, cough, rhinorrhea, as well as findings of elevated AST/ALT. Cannabinoid hyperemesis syndrome also likely contributing given history and patient's report of nausea improving with hot showers. Constipation could also be contributing to abdominal pain. Dysmenorrhea also a consideration (pt with IUD and rare periods). Gastritis and esophagitis possible with history of purging and now limited oral intake and emesis though pain location atypical. Pt improving with decreased pain and decreased nasuea and emesis. Continues to require IVF as she has not met fluid intake goal. Plan: - Encourage oral fluids. 1L intake is threshold for discharge - Button ready - Continue scheduled -IV zofran -H2 jong -Capsacin cream - miralax and colace daily - mIVF with glucose -prn benadryl for nause - Motrin q6h prn for pain -prn ice packs -Hot showers prn -If pt continues to feel better with no emesis, change zofran to prn Assessment & Plan (08/12/2021 1:44 PM CDT): Assessment: Marlee is an 20 year old female MDD, anxiety disorder, anxiety, purging, ARFID, SMA syndrome, and chronic marijuana use hospitalized with several days of acute onset worsening severe garrett-umbilical abdominal pain, nausea, and emesis. Viral syndrome most likely with concurrent symptoms of hot flashes, cough, rhinorrhea, as well as findings of elevated AST/ALT. Cannabinoid hyperemesis syndrome also likely contributing given history and patient's report of nausea improving with hot showers. Constipation could also be contributing to abdominal pain. Dysmenorrhea also a consideration (pt with IUD and rare periods). Gastritis and esophagitis possible with history of purging and now limited oral intake and emesis though pain location atypical. Cholelithiasis possible though pain location as well as lack of billirubin elevation atypical. Ovarian torsion unlikely with reassuring bimanual exam. PID unlikely with no fever and no cervical motion tenderness. Pt's symptoms unchanged despite scheduled zofran. Continues to require IVF Plan: - Encourage oral fluids - Continue scheduled -IV zofran -H2 jong -Capsacin cream - Add miralax and colace daily - mIVF, add glucose when IV is replaced - Motrin q6h prn for pain -prn ice packs -Hot showers prn Assessment & Plan (08/11/2021 1:13 PM CDT): Assessment: Marlee is an 20 year old female MDD, anxiety disorder, anxiety, purging, ARFID, SMA syndrome, and chronic marijuana use hospitalized with several days of acute onset worsening severe garrett-umbilical abdominal pain, nausea, and emesis. Viral syndrome most likely with concurrent symptoms of hot flashes, cough, rhinorrhea, as well as findings of elevated AST/ALT. Cannabinoid hyperemesis syndrome also likely contributing given history and patient's report of nausea improving with hot showers. Constipation could also be contributing to abdominal pain. Gastritis and esophagitis possible with history of purging and now limited oral intake and emesis though pain location atypical. Cholelithiasis possible though pain location as well as lack of billirubin elevation atypical. Ovarian torsion unlikely with reassuring bimanual exam. PID unlikely with no fever and no cervical motion tenderness. Plan: - Schedule IV zofran - Schedule H2 jong - Capsacin cream prn - Encourage oral fluids - miralax and colace daily - mIVF - Motrin q6h prn for pain Assessment & Plan (08/10/2021 12:45 PM CDT): Assessment: Marlee is an 20 year old female MDD, anxiety disorder, anxiety, purging, ARFID, SMA syndrome, and chronic marijuana use hospitalized with several days of acute onset worsening severe garrett-umbilical abdominal pain, nausea, and emesis. Viral syndrome most likely with concurrent symptoms of hot flashes, cough, rhinorrhea, as well as findings of transaminitis. Cannabinoid hyperemesis syndrome also likely contributing given history and patient's report of nausea improving with hot showers. Constipation could also be contributing to abdominal pain. Gastritis and esophagitis possible with history of purging and now limited oral intake and emesis though pain location atypical. Cholelithiasis possible though pain location as well as lack of billirubin elevation atypical. Ovarian torsion unlikely with reassuring bimanual exam. PID unlikely with no fever and no cervical motion tenderness. Plan: Schedule IV zofran Schedule H2 jong Capsacin cream prn Encourage oral fluids MIVF Motrin q6h prn for pain Assessment & Plan (01/08/2021 3:05 PM LITHOGRAPHIC GENERAL WORKER): Assessment: Patient is an 20 year old female with history of anxiety, depression, bulimia and avoidant-restrictive food intake disorder presenting with 1 week of abdominal pain, emesis, and diarrhea. Labs suggestive of dehydration. Hydrating with IV fluids. No tenderness to palpation of abdomen. Emesis improved with capsacin and hot showers, suggestive of cannabinoid hyperemesis. Plan: - Consult psychiatry- Dr. Ricardo - spoke with him, thinks she is competent to make decisions based on exam - avoid narcotics - Continue capsaicin cream for cannabinoid hyperemesis - Maalox and tylenol PRN for pain, avoid NSAIDS - Continue home medications: clonazepam, periactin, prozac, gabapentin, melatonin, olanzapine - PRN zofran for nausea - Soft diet - Encourage fluids, continue mIVFs D5NS @ 100ml/hr, will wean when tolerating PO, increase for increased output/vomiting - vitals q8 hrs - Strict I&Os Assessment & Plan (01/07/2021 4:52 PM LITHOGRAPHIC GENERAL WORKER): Assessment: Patient is an 20 year old female with history of anxiety, depression, bulimia and avoidant-restrictive food intake disorder presenting with 1 week of abdominal pain, emesis, and diarrhea. Labs suggestive of dehydration. Hydrating with IV fluids. No tenderness to palpation of abdomen. Emesis improved with capsacin and hot showers, suggestive of cannabinoid hyperemesis. Plan: - Consult adolescent medicine - Consult psychiatry- Dr. Ricardo - spoke with him, thinks she is competent to make decisions based on exam - avoid narcotics - Continue capsaicin cream for cannabinoid hyperemesis - Reviewed oral lidocaine is not a sustainable treatment given side effects of arrhythmia especially with hypokalemia - Maalox and tylenol PRN for pain, avoid NSAIDS - Continue home medications: clonazepam, periactin, prozac, gabapentin, melatonin, olanzapine - PRN zofran for nausea - Soft diet - Encourage fluids, continue mIVFs D5NS @ 100ml/hr, will wean when tolerating PO, increase for increased output/vomiting - vitals q8 hrs - Strict I&Os - Pt reported to nursing 01/06 that she wants to start KITTY protocol, will continue to keep open conversation about it Assessment & Plan (01/06/2021 6:00 PM LITHOGRAPHIC GENERAL WORKER): Assessment: Patient is an 20 year old female with history of anxiety, depression, bulimia and avoidant-restrictive food intake disorder presenting with 1 week of abdominal pain, emesis, and diarrhea. Labs suggestive of dehydration. Hydrating with IV fluids. No tenderness to palpation of abdomen. Emesis improved with capsacin and hot showers, suggestive of cannabinoid hyperemesis. Plan: - Consult adolescent medicine - Consult psychiatry- Dr. Ricardo - spoke with him, thinks she is competent to make decisions based on today's exam - avoid narcotics - Continue capsaicin cream for cannabinoid hyperemesis - Replete K with 20mEq KCl, recheck BMP - limited availability of K in pharmacy to add to fluids, being reserved for TPN, given the option today to take liquid or PO - cannot take in the shower due to history of purging - Reviewed oral lidocaine is not a sustainable treatment given side effects of arrhythmia especially with hypokalemia - Maalox and tylenol PRN for pain, avoid NSAIDS - Continue home medications: clonazepam, periactin, prozac, gabapentin, melatonin, olanzapine - PRN zofran for nausea - Soft diet - Encourage fluids, continue mIVFs D5NS @ 100ml/hr, continues to vomit, will wean when tolerating PO, increase for increased output/vomiting - vitals q8 hrs - Strict I&Os Assessment & Plan (01/05/2021 1:27 PM LITHOGRAPHIC GENERAL WORKER): Assessment: Patient is an 20 year old female with history of anxiety, depression, bulimia and avoidant-restrictive food intake disorder presenting with 1 week of abdominal pain, emesis, and diarrhea. Labs suggestive of dehydration. Hydrating with IV fluids. No tenderness to palpation of abdomen. Plan: - Consult adolescent medicine - Consult psychiatry- Dr. Ricardo - spoke with him, thinks she is competent to make decisions based on today's exam - avoid narcotics - Consult to Dr. Ricardo for medication management - Continue capsaicin cream for cannabinoid hyperemesis - Continue home medications: clonazepam, periactin, prozac, gabapentin, melatonin, olanzapine - PRN tylenol for abdominal pain, cannot repeatedly dose oral lidocaine due to risk of cardiac arrythmias - PRN zofran for nausea - Soft diet - Encourage fluids, continue mIVFs D5NS @ 100ml/hr, continues to vomit, will wean when tolerating - vitals q8 hrs - Strict I&Os Assessment & Plan (01/04/2021 9:17 PM LITHOGRAPHIC GENERAL WORKER): Assessment: Patient is an 20 year old female with history of anxiety, depression, and avoidant-restrictive food intake disorder presenting with 1 week of abdominal pain, emesis, and diarrhea. Labs significant for bicarb 20, concerning for dehydration. UA showing 2+ ketones and 3+ proteinuria. Physical exam with diffuse tenderness to palpation, otherwise unremarkable. Pt admitted for rehydration and further workup. Presentation most consistent with cannabinoid hyperemesis syndrome, although patient is also having recurrence of purging behaviors. Will continue to manage abdominal pain and emesis, adolescent medicine following. Plan: - Consult adolescent medicine - Consult psychiatry- Dr. Ricardo - Additional STI testing: trichomonas, syphilis, and HIV - Start capsaicin cream for cannabinoid hyperemesis - Continue home medications: clonazepam, periactin, prozac, gabapentin, melatonin, olanzapine - PRN tylenol for abdominal pain - PRN zofran for nausea - Soft diet - Encourage fluids, continue mIVFs D5NS @ 100ml/hr - vitals q8 hrs - Strict I&Os Assessment & Plan (01/03/2021 8:43 PM LITHOGRAPHIC GENERAL WORKER): Assessment: Patient is an 20 year old female with history of anxiety, depression, and avoidant-restrictive food intake disorder presenting with 1 week of abdominal pain, emesis, and diarrhea. Labs significant for bicarb 20, concerning for dehydration. UA showing 2+ ketones and 3+ proteinuria. Physical exam with diffuse tenderness to palpation, otherwise unremarkable. Differential diagnosis for patient's presentation is viral gastroenteritis vs. Cannabinoid hyperemesis syndrome vs. Recurrence of purging behaviors secondary to AFRID. Patient is currently stable. She requires admission for rehydration and further workup of abdominal pain and emesis. Plan: - Admit to [facility]- Dr. Coles - vitals q8 hrs - Strict I&Os - Continue home medications: clonazepam, periactin, pepcid, prozac, gabapentin, melatonin, olanzapine - PRN tylenol for abdominal pain - PRN zofran for nausea - Regular diet for now, will discuss need for KITTY diet tomorrow - Encourage fluids, continue mIVFs D5NS @ 100ml/hr Sexually active teen 05/24/2020 024 Assessment & Plan (08/12/2021 2:23 PM CDT): Assessment: Sexually active teen with IUD for prevention but no other protection. STI screening negative Plan: - Safer sex counseling Assessment & Plan (08/12/2021 1:44 PM CDT): Assessment: Sexually active teen with IUD for prevention but no other protection. STI screening negative Plan: - Safer sex counseling Assessment & Plan (08/10/2021 12:46 PM CDT): Assessment: Sexually active teen with IUD for prevention but no other protection Plan: -STI screening Assessment & Plan (11/11/2020 6:01 PM CDT): Waiting to get IUD, will restart OCPs until IUD can be placed. Urine Hcg, GC, chlamydia and trich are negative. Assessment & Plan (07/25/2020 6:31 PM CDT): Most recently active June 24. At that time, partner was not wearing condom. She has upcoming appointment with wire cutter next month at which time, she will be getting a IUD. Plan: -urine test today -GC, chlamydia, trichomonas testing Assessment & Plan (05/24/2020 2:43 PM CDT): Will get urine Hcg and STI testing. Mom is aware and Marlee is ok with us communicating results to her mother. Purging 03/24/2020 05/24/2020 Assessment & Plan (04/05/2020 3:23 PM LITHOGRAPHIC GENERAL WORKER): Assessment: Has been drinking excessive amounts of water and putting her fingers in her mouth to induce vomiting. No recorded emesis since 03/25. Plan: Will limit access to water to 250ml at a time. May only bathe once per day after she has taken her meds, had breakfast and lunch. Assessment & Plan (04/04/2020 12:58 PM LITHOGRAPHIC GENERAL WORKER): Assessment: Has been drinking excessive amounts of water and putting her fingers in her mouth to induce vomiting. No recorded emesis since 03/25. Plan: Will limit access to water to 250ml at a time. May only bathe once per day after she has taken her meds, had breakfast and lunch. Assessment & Plan (04/01/2020 11:55 AM LITHOGRAPHIC GENERAL WORKER): Assessment: Has been drinking excessive amounts of water and putting her fingers in her mouth to induce vomiting. No recorded emesis since 03/25. Plan: Will limit access to water to 250ml at a time. May only bathe once per day after she has taken her meds, had breakfast and lunch. Assessment & Plan (03/24/2020 4:53 PM LITHOGRAPHIC GENERAL WORKER): Assessment: Has been drinking excessive amounts of water and putting her fingers in her mouth to induce vomiting. Plan: Will limit access to water to 250ml at a time. May only bathe once per day after she has taken her meds, had breakfast and lunch. Ovarian cyst 01/12/2020 03/19/2020 Assessment & Plan (03/15/2020 11:10 AM LITHOGRAPHIC GENERAL WORKER): Assessment: on ultrasound on R Plan: -Radiology recommended repeat imaging in 6 months for ovarian cysts Assessment & Plan (03/04/2020 1:41 PM LITHOGRAPHIC GENERAL WORKER): Assessment: on ultrasound on R Plan: -Radiology recommended repeat imaging in 6 months for ovarian cysts Assessment & Plan (03/04/2020 11:50 AM LITHOGRAPHIC GENERAL WORKER): Assessment: on ultrasound on R Plan: -Radiology recommended repeat imaging in 6 months for ovarian cysts Assessment & Plan (02/27/2020 9:58 AM LITHOGRAPHIC GENERAL WORKER): Assessment: on ultrasound on R Plan: -Radiology recommended repeat imaging in 6 months for ovarian cysts Assessment & Plan (01/28/2020 11:59 AM LITHOGRAPHIC GENERAL WORKER): Assessment: on ultrasound on R Plan: -Radiology recommended repeat imaging in 6 months for ovarian cysts Assessment & Plan (01/27/2020 3:52 PM LITHOGRAPHIC GENERAL WORKER): Assessment: on ultrasound on R Plan: -Radiology recommended repeat imaging in 6 months for ovarian cysts Assessment & Plan (01/26/2020 6:01 PM LITHOGRAPHIC GENERAL WORKER): Assessment: on ultrasound on R Plan: -Radiology recommended repeat imaging in 6 months for ovarian cysts Assessment & Plan (01/13/2020 2:33 PM LITHOGRAPHIC GENERAL WORKER): Assessment: on ultrasound on R Plan: -Radiology recommended repeat imaging in 6 months for ovarian cysts Assessment & Plan (01/12/2020 1:26 PM LITHOGRAPHIC GENERAL WORKER): Assessment: on ultrasound on R Plan: -Radiology recommended repeat imaging in 6 months for ovarian cysts Self-injurious behavior 03/25/201705/12 Major depressive disorder, severe 03/21/2017 05/24/2020 Intractable vomiting 020 Immunizations Name Administration Dates Next Due GlySens primary monoval ent 12+ yr 0.3mL Purple cap 07/26/2020,07/03/2020 DTAP 5 PERTUSSIS ANTIGENS 07/08/2007,12/24/2003 DTAP/HEP B/IPV 02/22/2004 DTaP VACCINE IM (6wk-6yrs) 02/22/2003,2002 ,2002 HEP A PEDS 2 DOSE 07/08/2007,07/09/2006 HEP B VACCINE, PED/ADOL 06/09/2003,02/22/2003, HIB VACCINE 02/22/2004, 4,2002,10/20 INFLUENZA VACCINE, QUADR. (A FLURIA, FLUZONE QUADRIVALENT; 6MO+) (IIV4) 01/26/2021 INFLUENZA VACCINE, QUADR. (F LUZONE; FLULAVAL; FLUARIX; AFLURIA QUADRIVALENT; 6MO+), 0.5 ML (IIV4) 01/25/2022 MENINGOCOCCAL CONJUGATE (MCV4P) 12/15/2013 MMR 07/08/2007,02/22/2004 PNEUMOCOCCAL PCV7 CONJ, PEDS 02/22/2003,12/24/19 03,2002 POLIO IPV 07/08/2007,2002,2002 TDAP, HISTORIC VACCINE 12/15/2013 VARICELLA 07/08/2007,08/25/2003 Social History Tobacco Use Types Packs/Day Years Used Date Smoking Tobacco: Former Cigarettes Q uit: 01/11/2022 Smokeless Tobacco: Never Tobacco Cessation:Counseling Given: Not Answered Comments:Brief smoking x 1 mo Passive Exposure Comments:smoked about 4 a month Alcohol Use Standard Drinks/Week Comments Never 0 (1 standard drink = 0.6 oz pur e alcohol) AUDIT-C Answer Date Recorded Q1: How often do you have a drink containing alcohol? Never 04/23/2023 Q2: How many drinks containi ng alcohol do you have on a typical day when you are drinking? Patient does not drink Q3: How often do you have si x or more drinks on one occasion? Never 04/23/2023 Overall Financial Resource Strain (CARDIA) Answe r Date Recorded How hard is it for you to pa y for the very basics like food, housing, medical care, and heating? Not hard at all 04/24/2023 PHQ-2 Answer Date Recorded Patient Health Questionnaire-2 Score 0 01/15/2024 [facility] Occupat ional Health - Occupational Stress Questionnaire Answer Date Recorded Do you feel stress - tense, restless, nervous, or anxious, or unable to sleep at night because your mind is troubled all the time - these days? Very much 04/24/2023 Hunger Vital Sign Answer Date Recorded Within the past 12 months, y ou worried that your food would run out before you got the money to buy more. Never true 04/24/19 24 Within the past 12 months, t he food you bought just didn't last and you didn't have money to get more. Never true 04/24/2023 PRAPARE - Transportation Answer Date Re corded In the past 12 months, has l ack of transportation kept you from medical appointments or from getting medications? No 04/11 In the past 12 months, has l ack of transportation kept you from meetings, work, or from getting things needed for daily living? No 04/24/2023 Housing Stability Vital Sign Answer Jackson e Recorded In the last 12 months, was t here a time when you were not able to pay the mortgage or rent on time? No 04/24/2023 In the last 12 months, how many places have you lived? 2 04/24/2023 In the last 12 months, was t here a time when you did not have a steady place to sleep or slept in a mcc (including now)? No 04/24/2023 Sex and Gender Information Value Date Recorded Sex Assigned at Not on file Gender Identity Not on file Sexual Orientation Not on file Last Filed Vital Signs Vital Sign Reading Time Taken Comments Blood Pressure 105/74 01/15/2024 2:50 PM LITHOGRAPHIC GENERAL WORKER Pulse 65 01/15/2024 2:50 PM LITHOGRAPHIC GENERAL WORKER Temperature 36.3 C (97.4 F) 05/21/2023 11:54 AM CDT Respiratory Rate 18 04/28/2023 7:42 PM CDT Oxygen Saturation 99% 05/21/2023 11:54 AM CDT Inhaled Oxygen Concentration 21% 06/27/2021 6 :30 PM CDT Weight 46.3 kg (102 lb) 01/15/2024 2:50 PM LITHOGRAPHIC GENERAL WORKER Height 154.9 cm (5' 1 ) 01/15/2024 2:50 PM LITHOGRAPHIC GENERAL WORKER Body Mass Index 19.27 01/15/2024 2:50 PM LITHOGRAPHIC GENERAL WORKER Functional Status Functional Status Response Date of Assess ment Is person deaf or have serious hearing difficult y? No 04/29/2023 Is person blind or have serious difficulty seein g? No 04/29/2023 Does person have serious dif ficulty walking/climbing stairs? No 04/29/2023 Does person have difficulty dressing/bathing? No 04/29/2023 Does person have difficulty doing errands alone? No 04/29/2023 Cognitive Status Response Date of Assessm ent Does person have difficulty concentrating/remembering/making decisions? No 04/29/2023 Plan of Treatment Upcoming Encounters Date Type Department Care Team (Late st Contact Info) Description 10/08/2024 8:00 AM CDT Office Visit [facility] [address] [place] [id number] Ronel Thornton DO [address] [place] [id number] Procedures Procedure Name Priority Date/Time Associated Diagnosis Comments HCG URINE QUALITATIVE - POINT OF CARE (AMB) Routine 01/15/2024 Encounter for insertion of Mirena IUD PAP CERVICAL CANCER SCREEN CT/NG/TV APT Routine 11/29/2023 11:06 AM CDT Well woman exam with routine gynecological exam HIV-1 HIV-2 ANTIBODY + HIV P24 AG PANEL Routine 11/29/2023 10:55 AM CDT Well woman exam with routine gynecological exam HEPATITIS C AB W/RFLX TO HCV RNA QN PCR Routine 12/07/2021 Screen for STD (sexually transmitted disease) from Last 3 Months or Most Recently Relevant to Health Maintenance Results * HCG URINE QUALITATIVE - POINT OF CARE (AMB) (01/15/2024) HCG Qual Urine Negative Negative QC Verified Yes Yes Urine URINE / Unknown 01/15/2024 Nai Jurado MD LAB - POINT OF CARE ORDERABLES * (ABNORMAL) PAP CERVICAL CANCER SCREEN CT/NG/TV APT (11/29/2023 11:06 AM CDT) Age Gdln ACOG Testing 21-29 [facility] ACCOUNT BILL Comment: Performed at: - [facility] [address] [id number] [employer]: Meredith Gil MD, Phone: [phone] Performed at: - [facility] [address] [id number] [employer]: Meredith Gil MD, Phone: [phone] Diagnosis Comment(A) [facility] ACCOUNT BILL Comment: EPITHELIAL CELL ABNORMALITY. LOW GRADE SQUAMOUS INTRAEPITHELIAL LESION (LSIL). Recommendation Comment(A) [facility] ACCOUNT BILL Comment:Suggest follow up as clinically appropriate. Specimen Adequacy Comment [facility] ACCOUNT BILL Comment:Satisfactory for daniel luation. No endocervical component is identified. Clinician Provided ICD10 Comment [facility] ACCOUNT BILL Comment:Z01.419 Performed by Comment [facility] ACCOUNT BILL Comment:Sinai Mejia, Cyto technologist (ASCP) Electronically Signed by Comment [facility] ACCOUNT BILL Comment:Anne-Marie Woodruff MD, Pa thologist Comment . [facility] ACCOUNT BILL Pathologist Provided ICD10 Comment [facility] ACCOUNT BILL Comment:[id number] Note Comment [facility] ACCOUNT BILL Comment: The Pap smear is a screening test designed to aid in the detection of premalignant and malignant conditions of the uterine cervix. It is not a diagnostic procedure and should not be used as the sole means of detecting cervical cancer. Both false-positive and false-negative reports do occur. IGLBP CPT Code Automation Comment [facility] ACCOUNT BILL Comment: This liquid based ThinPrep(R) pap test was screened with the use of an image guided system. Note Comment [facility] ACCOUNT BILL Comment: The HPV DNA reflex criteria were not met with this specimen result therefore, no HPV testing was performed. Chlamydia trachomatis YAMIL Negative Negative [facility] ACCOUNT BILL GC YAMIL Negative Negative [facility] ACCOUNT BILL Trichomonas vaginalis by YAMIL Negative Negative [facility] ACCOUNT BILL PART OF UTERINE CERVIX / Unknown 11/29/2023 11:06 AM CDT 11/29/2023 Comment:Cervix Release to pa t Narrative [facility] ACCOUNT BILL - 12/05/2023 5:09 PM CDT Performed at: [facility] [id number] [employer]: Meredith Gil MD, Phone: [phone] Specimen Comment: [id number] Specimen Comment: Source.............Cervix Specimen Comment: No. of containers..01 ThinPrep Vial Nai Jurado MD LAB - PATHOLOGY/CYTO LOGY ORDERABLES Performing Organization Address City/[facility] Co de Phone Number [facility] ACCOUNT BILL [address] [place] [address] * HIV-1 HIV-2 ANTIBODY + HIV P24 AG PANEL (11/29/2023 10:55 AM CDT) [facility] HIV Screen 4th Generation w Reflex Non Reactive Non Reactive [facility] ACCOUNT BILL Comment: HIV-1/HIV-2 antibodies and HIV-1 p24 antigen were NOT detected. There is no laboratory evidence of HIV infection. HIV Negative Blood BLOOD SPECIMEN / Unknown 11/29/2023 10:55 AM CDT 11/29/2023 Narrative [facility] ACCOUNT BILL - 11/30/2023 10:10 AM CDT Performed at: [facility] [id number] [employer]: Karlos Huffman PhD, Phone: [phone] Nai Jurado MD LAB - CHEMISTRY ORDE RABJOCELYN Performing Organization Address City/[facility] Co de Phone Number [facility] ACCOUNT BILL [address] [place] [address] * HEPATITIS C AB W/RFLX TO HCV RNA QN PCR (12/07/2021) [facility] Hepatitis C Antibody NON-REACTI VE NON-REACT KASIA QUEST Signal to Cut-Off 0.08 <1.00 QUEST Comment: HCV antibody was non-reactive. There is no laboratory evidence of HCV infection. In most cases, no further action is required. However, if recent HCV exposure is suspected, a test for HCV RNA (test code 48103) is suggested. For additional information please refer to http://education.Achieve X/faq/RKS93f1 (This link is being provided for informational/ educational purposes only.) Test Performed at: [employer] [employer] [address] [place] [address] PURVI PABLO DO,MPH Blood BLOOD SPECIMEN / Unknown 12/07/2021 12/07/2021 10:47 AM CDT Karrie Mack MD LAB - CHEMISTRY ORD ERABLES Performing Organization Address City/State/[facility] Co de Phone Number [employer] [address] [place] [address] from Last 3 Months or Most Recently Relevant to Health Maintenance Advance Directives * Full Code (Latest Code Status on File) Date Activated Date Inactivated Comments 04/23/2023 6:51 PM 04/29/2023 8:23 PM * Full Code Date Activated Date Inactivated Comments 04/21/2023 3:22 PM 04/23/2023 4:45 PM * Full Code Date Activated Date Inactivated Comments 08/15/2022 10:32 PM 08/23/2022 5:26 PM * Full Code Date Activated Date Inactivated Comments 06/26/2022 8:17 AM 06/28/2022 6:06 PM * Full Code Date Activated Date Inactivated Comments 06/18/2022 4:54 PM 06/22/2022 2:44 PM Care Teams Lead Loader Relationship Specialty Start Date End Date Ronel Thornton DO [address] [place] [address] PCP - General Family Medicine 03/18/23 Ronel Thornton DO [address] [place] [address] PCP - Attributed-[facility] 04/12/23
--- OUTSIDE RECORDS SUMMARY | 2024-03-28 03:05 | XMS_ITS | Clinical Summary ---
Author Organization [facility] [facility] [employer] Address [address] [place] [address] Care Team Providers Care Director Of Quality Improvement Name Role Phone Ronel Thornton DO Primary Care Provider [phone] Ronel Thornton DO Unavailable [phone] Source Comments [facility],non-owned Affiliates and Associated Physician Practices is amultiple site organization consisting of ambulatory clinics and hospital sitesin [place], [place], [place] and [place]. This disclosure is being madepursuant to the Care Everywhere program and may not contain all information available regarding this patient. Last updated 17.[facility] Allergies No known active allergies Medications * [...] disorder) 04/28/2023 Intentional overdose, initial encounter 04/21/19 Superior mesenteric artery syndrome 03/20/2023 Benzodiazepine withdrawal [...] 01/18/2020 Assessment & Plan (01/08/2021 3:06 PM RETAIL PERFORMANCE SPECIALIST): Assessment: Major depressive disorder, generalized anxiety disorder and substance abuse disorder. Plan: - klonopin and neurontin are all habit forming, concerns they are addictive, plan to discuss long term care phlebotomist goal of weaning as outpatient - must stop all alcohol and MJ - Increased Prozac to 40 - Increased zyprexa to 15 - Melatonin 6mg QHS for sleep - avoid narcotics - taper off zyprexa as outpatient per psychiatry recs Assessment & Plan (01/07/2021 4:50 PM RETAIL PERFORMANCE SPECIALIST): Assessment: Major depressive disorder, generalized anxiety disorder and substance abuse disorder. Plan: - klonopin and neurontin are all habit forming, concerns they are addictive, plan to discuss long term care phlebotomist goal of weaning as outpatient - must stop all alcohol and MJ - Increased Prozac to 40 - Increased zyprexa to 15 - Melatonin 6mg QHS for sleep - avoid narcotics - taper off zyprexa as outpatient per psychiatry recs Assessment & Plan (01/06/2021 5:55 PM RETAIL PERFORMANCE SPECIALIST): Assessment: Major depressive disorder, generalized anxiety disorder and substance abuse disorder. Plan: - klonopin and neurontin are all habit forming, concerns they are addictive, plan to discuss residential goal of weaning as outpatient - must [...] slowly. Assessment & Plan (04/07/2020 6:45 PM RETAIL PERFORMANCE SPECIALIST): Assessment: Hx of major depressive disorder and generalized anxiety disorder. Pt has been seen by psychiatry and psychology, now improved since starting/optimizing zyprexa QHS, clonazepam TID, and prozac QD. Plan: - Prozac 30 mg QD (dose of 30 mg started on 03/09/20, Prozac initially began 02/07) - Zyprexa 5 mg QHS - Klonopin 0.5mg TID Assessment & Plan (04/06/2020 3:54 PM RETAIL PERFORMANCE SPECIALIST): Assessment: Hx of major depressive disorder and [...] TID Assessment & Plan (04/05/2020 10:49 AM RETAIL PERFORMANCE SPECIALIST): Assessment: Hx of major depressive disorder and [...] TID Assessment & Plan (04/04/2020 10:23 AM RETAIL PERFORMANCE SPECIALIST): Assessment: Hx of major depressive disorder and [...] TID Assessment & Plan (04/03/2020 6:30 PM RETAIL PERFORMANCE SPECIALIST): Assessment: Hx of major depressive disorder and [...] TID Assessment & Plan (04/01/2020 11:15 AM RETAIL PERFORMANCE SPECIALIST): Assessment: Hx of major depressive disorder and [...] dose) Assessment & Plan (03/31/2020 10:07 AM RETAIL PERFORMANCE SPECIALIST): Assessment: Hx of major depressive disorder and generalized anxiety disorder. Pt seen by psychiatry on admission and was started elavil, but continued to have anxiety. Elavil was discontinued due to persistent tachycardia and hypotension. Based on recommendations from psychiatry and [facility], she was started on zyprexa QHS, [...] dose) Assessment & Plan (03/30/2020 2:24 PM RETAIL PERFORMANCE SPECIALIST): Assessment: Hx of major depressive disorder and [...] dose) Assessment & Plan (03/29/2020 6:50 AM RETAIL PERFORMANCE SPECIALIST): Assessment: Hx of major depressive disorder and [...] dose) Assessment & Plan (03/27/2020 10:30 AM RETAIL PERFORMANCE SPECIALIST): Assessment: Hx of major depressive disorder and [...] dose) Assessment & Plan (03/26/2020 11:15 AM RETAIL PERFORMANCE SPECIALIST): Assessment: Hx of major depressive disorder and [...] dose) Assessment & Plan (03/25/2020 8:58 AM RETAIL PERFORMANCE SPECIALIST): Assessment: Hx of major depressive disorder and generalized anxiety disorder. Pt seen by psychiatry on admission and was started elavil, but continued to have anxiety. Elavil was discontinued due to persistent tachycardia and hypotension. Based on recommendations from psychiatry and [facility], she was started on zyprexa QHS, [...] dose) Assessment & Plan (03/24/2020 6:44 AM RETAIL PERFORMANCE SPECIALIST): Assessment: Hx of major depressive disorder and [...] dose) Assessment & Plan (03/23/2020 12:19 PM RETAIL PERFORMANCE SPECIALIST): Assessment: Hx of major depressive disorder and [...] dose) Assessment & Plan (03/22/2020 10:47 AM RETAIL PERFORMANCE SPECIALIST): Assessment: Hx of major depressive disorder and [...] recommendations) Assessment & Plan (03/21/2020 3:11 PM RETAIL PERFORMANCE SPECIALIST): Assessment: Hx of major depressive disorder and [...] mg. Assessment & Plan (03/20/2020 10:31 AM RETAIL PERFORMANCE SPECIALIST): Assessment: Hx of major depressive disorder and [...] 03/21. Assessment & Plan (03/19/2020 10:38 AM RETAIL PERFORMANCE SPECIALIST): Assessment: Hx of major depressive disorder and [...] withdrawal Assessment & Plan (03/18/2020 12:58 PM RETAIL PERFORMANCE SPECIALIST): Assessment: Hx of major depressive disorder and [...] anxiety Assessment & Plan (03/17/2020 10:33 AM RETAIL PERFORMANCE SPECIALIST): Assessment: Hx of major depressive disorder and [...] appreciated Assessment & Plan (03/16/2020 2:24 PM RETAIL PERFORMANCE SPECIALIST): Assessment: Hx of major depressive disorder and [...] recommendations Assessment & Plan (03/15/2020 11:11 AM RETAIL PERFORMANCE SPECIALIST): Assessment: Hx of major depressive disorder and [...] anxiety Assessment & Plan (03/14/2020 6:28 AM RETAIL PERFORMANCE SPECIALIST): Assessment: Hx of major depressive disorder and [...] anxiety Assessment & Plan (03/13/2020 6:28 AM RETAIL PERFORMANCE SPECIALIST): Assessment: Hx of major depressive disorder and [...] anxiety Assessment & Plan (03/12/2020 11:35 AM RETAIL PERFORMANCE SPECIALIST): Assessment: Hx of major depressive disorder and [...] anxiety Assessment & Plan (03/11/2020 12:43 PM RETAIL PERFORMANCE SPECIALIST): Assessment: Hx of major depressive disorder and [...] anxiety Assessment & Plan (03/10/2020 6:11 AM RETAIL PERFORMANCE SPECIALIST): Assessment: Hx of major depressive disorder and [...] anxiety Assessment & Plan (03/09/2020 6:24 AM RETAIL PERFORMANCE SPECIALIST): Assessment: Hx of major depressive disorder and [...] anxiety Assessment & Plan (03/08/2020 10:51 AM RETAIL PERFORMANCE SPECIALIST): Assessment: Hx of major depressive disorder and [...] anxiety Assessment & Plan (03/07/2020 9:15 AM RETAIL PERFORMANCE SPECIALIST): Assessment: Hx of major depressive disorder and [...] -Develop daily schedule with assistance of child life assistant-Alma Assessment & Plan (03/06/2020 10:09 AM RETAIL PERFORMANCE SPECIALIST): Assessment: Hx of major depressive disorder and [...] anxiety Assessment & Plan (03/05/2020 9:56 AM RETAIL PERFORMANCE SPECIALIST): Assessment: Hx of major depressive disorder and [...] anxiety Assessment & Plan (03/04/2020 12:58 PM RETAIL PERFORMANCE SPECIALIST): Assessment: Hx of major depressive disorder and [...] anxiety Assessment & Plan (03/03/2020 3:16 PM RETAIL PERFORMANCE SPECIALIST): Assessment: Hx of major depressive disorder and [...] anxiety Assessment & Plan (03/01/2020 12:04 PM RETAIL PERFORMANCE SPECIALIST): Assessment: Hx of major depressive disorder and [...] anxiety Assessment & Plan (02/29/2020 12:53 PM RETAIL PERFORMANCE SPECIALIST): Assessment: Hx of major depressive disorder and [...] anxiety Assessment & Plan (02/28/2020 9:22 AM RETAIL PERFORMANCE SPECIALIST): Assessment: Hx of major depressive disorder and [...] anxiety Assessment & Plan (02/27/2020 10:27 AM RETAIL PERFORMANCE SPECIALIST): Assessment: Hx of major depressive disorder and [...] negative Assessment & Plan (02/26/2020 11:12 AM RETAIL PERFORMANCE SPECIALIST): Assessment: Hx of major depressive disorder and [...] pending Assessment & Plan (02/25/2020 9:33 AM RETAIL PERFORMANCE SPECIALIST): Assessment: Hx of major depressive disorder and [...] pending Assessment & Plan (02/24/2020 6:51 AM RETAIL PERFORMANCE SPECIALIST): Assessment: Hx of major depressive disorder and [...] pending Assessment & Plan (02/23/2020 10:19 AM RETAIL PERFORMANCE SPECIALIST): Assessment: Hx of major depressive disorder and [...] pending Assessment & Plan (02/22/2020 11:07 AM RETAIL PERFORMANCE SPECIALIST): Assessment: Hx of major depressive disorder and [...] QHS Assessment & Plan (02/21/2020 10:54 AM RETAIL PERFORMANCE SPECIALIST): Assessment: History of major depressive disorder and [...] tablet Assessment & Plan (02/20/2020 11:33 AM RETAIL PERFORMANCE SPECIALIST): Assessment: History of major depressive disorder and [...] tablet Assessment & Plan (02/19/2020 3:05 PM RETAIL PERFORMANCE SPECIALIST): Assessment: History of major depressive disorder and [...] tablet Assessment & Plan (02/18/2020 10:13 AM RETAIL PERFORMANCE SPECIALIST): Assessment: History of major depressive disorder and [...] tablet Assessment & Plan (02/17/2020 12:26 PM RETAIL PERFORMANCE SPECIALIST): Assessment: History of major depressive disorder and [...] tablet Assessment & Plan (02/16/2020 1:14 PM RETAIL PERFORMANCE SPECIALIST): Assessment: History of major depressive disorder and [...] tablet Assessment & Plan (02/15/2020 12:31 PM RETAIL PERFORMANCE SPECIALIST): Assessment: History of major depressive disorder and [...] tablet Assessment & Plan (02/14/2020 2:24 PM RETAIL PERFORMANCE SPECIALIST): Assessment: History of major depressive disorder and [...] tablet Assessment & Plan (02/13/2020 12:00 PM RETAIL PERFORMANCE SPECIALIST): Assessment: History of major depressive disorder and [...] tablet Assessment & Plan (02/12/2020 11:20 AM RETAIL PERFORMANCE SPECIALIST): Assessment: History of major depressive disorder and [...] tablet Assessment & Plan (02/11/2020 11:54 AM RETAIL PERFORMANCE SPECIALIST): Assessment: History of major depressive disorder and [...] tablet Assessment & Plan (02/10/2020 12:09 PM RETAIL PERFORMANCE SPECIALIST): Assessment: History of major depressive disorder and [...] tablet Assessment & Plan (02/09/2020 11:50 AM RETAIL PERFORMANCE SPECIALIST): Assessment: History of major depressive disorder and [...] atarax Assessment & Plan (02/08/2020 12:54 PM RETAIL PERFORMANCE SPECIALIST): Assessment: History of major depressive disorder and [...] atarax Assessment & Plan (02/07/2020 11:47 AM RETAIL PERFORMANCE SPECIALIST): Assessment: History of major depressive disorder and [...] atarax Assessment & Plan (02/06/2020 8:12 AM RETAIL PERFORMANCE SPECIALIST): Assessment: History of major depressive disorder and [...] atarax Assessment & Plan (02/05/2020 9:12 AM RETAIL PERFORMANCE SPECIALIST): Assessment: History of major depressive disorder and [...] atarax Assessment & Plan (02/04/2020 12:43 PM RETAIL PERFORMANCE SPECIALIST): Assessment: History of major depressive disorder and [...] atarax Assessment & Plan (02/03/2020 2:28 PM RETAIL PERFORMANCE SPECIALIST): Assessment: History of major depressive disorder and [...] atarax Assessment & Plan (02/02/2020 4:02 PM RETAIL PERFORMANCE SPECIALIST): Assessment: History of major depressive disorder and [...] atarax Assessment & Plan (02/01/2020 12:12 PM RETAIL PERFORMANCE SPECIALIST): Assessment: History of major depressive disorder and [...] atarax Assessment & Plan (01/31/2020 1:04 PM RETAIL PERFORMANCE SPECIALIST): Assessment: History of major depressive disorder and [...] atarax Assessment & Plan (01/30/2020 10:30 AM RETAIL PERFORMANCE SPECIALIST): Assessment: History of major depressive disorder and [...] atarax Assessment & Plan (01/29/2020 9:40 PM RETAIL PERFORMANCE SPECIALIST): Assessment: History of major depressive disorder and [...] atarax Assessment & Plan (01/28/2020 11:59 AM RETAIL PERFORMANCE SPECIALIST): Assessment: History of major depressive disorder and [...] lunch Assessment & Plan (01/27/2020 3:57 PM RETAIL PERFORMANCE SPECIALIST): Assessment: History of major depressive disorder and [...] lunch Assessment & Plan (01/26/2020 6:01 PM RETAIL PERFORMANCE SPECIALIST): Assessment: History of major depressive disorder and [...] atarax Assessment & Plan (01/25/2020 2:56 PM RETAIL PERFORMANCE SPECIALIST): Assessment: History of major depressive disorder and [...] PO. Assessment & Plan (01/24/2020 8:11 AM RETAIL PERFORMANCE SPECIALIST): Assessment: History of major depressive disorder and [...] (02/22/20) Assessment & Plan (01/23/2020 7:09 AM RETAIL PERFORMANCE SPECIALIST): Assessment: History of major depressive disorder and [...] (02/22/20) Assessment & Plan (01/22/2020 7:52 AM RETAIL PERFORMANCE SPECIALIST): Assessment: History of major depressive disorder and [...] (02/22/20) Assessment & Plan (01/21/2020 7:40 AM RETAIL PERFORMANCE SPECIALIST): Assessment: History of major depressive disorder and [...] (02/22/20) Assessment & Plan (01/20/2020 7:36 AM RETAIL PERFORMANCE SPECIALIST): Assessment: History of major depressive disorder and [...] (02/22/20) Assessment & Plan (01/19/2020 7:22 AM RETAIL PERFORMANCE SPECIALIST): Assessment: History of major depressive disorder and [...] (02/22/20) Assessment & Plan (01/18/2020 4:35 PM RETAIL PERFORMANCE SPECIALIST): Assessment: History of major depressive disorder and [...] range. Assessment & Plan (04/08/2020 1:31 PM RETAIL PERFORMANCE SPECIALIST): Assessment: 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, SMA [...] PT Assessment & Plan (04/07/2020 2:52 PM RETAIL PERFORMANCE SPECIALIST): Assessment: 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, SMA [...] PT Assessment & Plan (04/07/2020 6:44 PM RETAIL PERFORMANCE SPECIALIST): Assessment: Marlee is a 19 year old [...] follow up with adolescent medicine on 04/18, [facility] on 05/02, and and scheduling Psych intake visit SOCIAL: - General medicine team spoke with and updated mother on 04/06 LABS: daily urine spec gravity, BMP/Mg/Phos Q / Assessment & Plan (04/06/2020 6:45 PM RETAIL PERFORMANCE SPECIALIST): Assessment: Marlee is a 19 year old [...] / Assessment & Plan (04/05/2020 3:22 PM RETAIL PERFORMANCE SPECIALIST): Assessment: 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, SMA [...] PT Assessment & Plan (04/05/2020 10:49 AM RETAIL PERFORMANCE SPECIALIST): Assessment: Marlee is a 19 year old [...] gravity, BMP/Mg/Phos Q / Assessment & Plan (04/04/2020 3:59 PM RETAIL PERFORMANCE SPECIALIST): Assessment: 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, SMA [...] daily Assessment & Plan (04/04/2020 10:21 AM RETAIL PERFORMANCE SPECIALIST): Assessment: Marlee is a 19 year old [...] LABS: daily urine spec gravity, BMP/Mg/Phos Q T/ Assessment & Plan (04/03/2020 12:59 PM RETAIL PERFORMANCE SPECIALIST): Assessment: Marlee is a 19 year old [...] daily Assessment & Plan (04/02/2020 4:19 PM RETAIL PERFORMANCE SPECIALIST): Assessment: Marlee is a 19 year old [...] an inability to supervise meals. - For Marele's health, NG tube must be replaced if [...] daily Assessment & Plan (04/01/2020 11:55 AM RETAIL PERFORMANCE SPECIALIST): Assessment: 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 and [...] daily Assessment & Plan (04/01/2020 11:15 AM RETAIL PERFORMANCE SPECIALIST): Assessment: Marlee is a 19 year old [...] daily Assessment & Plan (03/31/2020 12:05 PM RETAIL PERFORMANCE SPECIALIST): Assessment: 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 and [...] daily Assessment & Plan (03/31/2020 10:06 AM RETAIL PERFORMANCE SPECIALIST): Assessment: Marlee is a 19 year old [...] daily Assessment & Plan (03/30/2020 2:24 PM RETAIL PERFORMANCE SPECIALIST): Assessment: Marlee is a 19 year old [...] daily Assessment & Plan (03/29/2020 10:40 AM RETAIL PERFORMANCE SPECIALIST): Assessment: Marlee is a 19 year old [...] 55 mL/hr x 10 hours (1999 - 599) 03/30: Increase rate to 60ml/hr x 10 [...] daily Assessment & Plan (03/28/2020 12:29 PM RETAIL PERFORMANCE SPECIALIST): Assessment: Marlee is a 19 year old [...] 50 mL/hr x 10 hours (1999 - 599), consider increasing rate again in 1-2 days [...] allowed in room. May have water from [employer] cup. Oral fluids limited to 250 mL [...] daily Assessment & Plan (03/27/2020 10:34 AM RETAIL PERFORMANCE SPECIALIST): Assessment: Marlee is a 19 year old [...] night 03/27: Increase to 50 mL/hr tonight. Reynaldo is aware of increase but did not [...] daily Assessment & Plan (03/26/2020 11:20 AM RETAIL PERFORMANCE SPECIALIST): Assessment: Marlee is a 19 year old [...] daily Assessment & Plan (03/25/2020 12:30 PM RETAIL PERFORMANCE SPECIALIST): Assessment: Marlee is a 19 year old [...] daily Assessment & Plan (03/24/2020 5:02 PM RETAIL PERFORMANCE SPECIALIST): Assessment: 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 and [...] anxiety Assessment & Plan (03/24/2020 11:19 AM RETAIL PERFORMANCE SPECIALIST): Assessment: Marlee is a 19 year old [...] allowed in room. May have water from [facility] cup. - May take shower while sitting [...] daily Assessment & Plan (03/23/2020 12:20 PM RETAIL PERFORMANCE SPECIALIST): Assessment: Marlee is a 19 year old [...] daily Assessment & Plan (03/22/2020 12:20 PM RETAIL PERFORMANCE SPECIALIST): Assessment: Marlee is a 19 year old [...] lipids at 17ml/hr -Continue Jevity, per Dr Rigo -Overnight feeds 03/22: Jevity 1.2 run at [...] daily Assessment & Plan (03/21/2020 3:10 PM RETAIL PERFORMANCE SPECIALIST): Assessment: Marlee is a 19 year old [...] 03/15/2020. Assessment & Plan (03/20/2020 10:32 AM RETAIL PERFORMANCE SPECIALIST): Assessment: Marlee is a 19 year old [...] 03/15/2020. Assessment & Plan (03/19/2020 10:37 AM RETAIL PERFORMANCE SPECIALIST): Assessment: Marlee is a 19 year old [...] 03/15/2020. 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 [...] 03/15/2020. Assessment & Plan (03/17/2020 10:36 AM RETAIL PERFORMANCE SPECIALIST): Assessment: Marlee is a 19 year old [...] 03/15/2020. Assessment & Plan (03/16/2020 2:10 PM RETAIL PERFORMANCE SPECIALIST): Assessment: Marlee is a 19 year old [...] 03/15/2020. 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 Iron studies from 02/27/20-Iron 66, TIBC 323, Iron % Sat 20, and transferrin 258. Iron Dextran 62.5 mg on 02/14/20. 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 Iron studies from 02/27/20-Iron 66, TIBC 323, Iron % Sat 20, and transferrin 258. Iron Dextran 62.5 mg on 02/14/20. ENDO: TSH 0.13 (L) and all other labs were normal (-obtained due to persistent Tachycardia and BP issues; most likely 2/2 to eating disorder) -Repeat TSH and T4 next week Assessment & Plan (03/11/2020 12:43 PM RETAIL PERFORMANCE SPECIALIST): Assessment: Marlee is a 19 year old [...] Mg, Phos, Trigylcerides 3 times weekly (Tues, Thsuzanna, Sun) HEME/ONC: Mircocytic anemia 2/2 malnutrition. Iron studies from 02/27/20-Iron 66, TIBC 323, Iron % Sat 20, and transferrin 258. Iron Dextran 62.5 mg on 02/14/20. ENDO: TSH 0.13 (L) and all other labs were normal (-obtained due to persistent Tachycardia and BP issues; most likely 2/2 to eating disorder) -Repeat TSH and T4 next week Assessment & Plan (03/10/2020 9:12 AM RETAIL PERFORMANCE SPECIALIST): Assessment: Marlee is a 19 year old [...] in Assessment & Plan (03/09/2020 10:22 AM RETAIL PERFORMANCE SPECIALIST): Assessment: Marlee is a 19 year old [...] in Assessment & Plan (03/08/2020 10:52 AM RETAIL PERFORMANCE SPECIALIST): Assessment: Marlee is a 19 year old [...] in Assessment & Plan (03/07/2020 9:18 AM RETAIL PERFORMANCE SPECIALIST): Assessment: Marlee is a 19 year old [...] in Assessment & Plan (03/06/2020 10:09 AM RETAIL PERFORMANCE SPECIALIST): Assessment: Marlee is a 19 year old [...] in Assessment & Plan (03/05/2020 9:56 AM RETAIL PERFORMANCE SPECIALIST): Assessment: Marlee is a 19 year old [...] in Assessment & Plan (03/04/2020 12:58 PM RETAIL PERFORMANCE SPECIALIST): Assessment: Marlee is a 19 year old [...] Consider Repeat TSH and Free T4 in March/April NEURO: - Atarax 25 mg TID for anxiety - Tylenol and Ibuprofen PRN for pain - Melatonin 6 mg for sleep PSYCH/SOCIAL: -See anxiety and depression A/P Assessment & Plan (03/03/2020 3:15 PM RETAIL PERFORMANCE SPECIALIST): Assessment: Marlee is a 19 year old [...] A/P Assessment & Plan (03/02/2020 12:06 PM RETAIL PERFORMANCE SPECIALIST): Assessment: Marlee is a 19 year old [...] A/P Assessment & Plan (03/01/2020 12:05 PM RETAIL PERFORMANCE SPECIALIST): Assessment: Marlee is a 19 year old [...] A/P Assessment & Plan (02/29/2020 12:52 PM RETAIL PERFORMANCE SPECIALIST): Assessment: Marlee is a 19 year old [...] today and 3 times weekly (, , Sat) ID: [...] A/P Assessment & Plan (02/28/2020 9:12 AM RETAIL PERFORMANCE SPECIALIST): Assessment: Marlee is a 19 year old [...] A/P Assessment & Plan (02/27/2020 10:03 AM RETAIL PERFORMANCE SPECIALIST): Assessment: Marlee is a 19 year old [...] A/P Assessment & Plan (02/26/2020 11:12 AM RETAIL PERFORMANCE SPECIALIST): Assessment: Marlee is a 19 year old [...] A/P Assessment & Plan (02/25/2020 9:32 AM RETAIL PERFORMANCE SPECIALIST): Assessment: Marlee is a 19 year old [...] A/P Assessment & Plan (02/24/2020 10:42 AM RETAIL PERFORMANCE SPECIALIST): Assessment: Marlee is a 19 year old [...] A/P Assessment & Plan (02/23/2020 10:22 AM RETAIL PERFORMANCE SPECIALIST): Assessment: Marlee is a 19 year old [...] Phos, Trigylcerides 3 times weekly (es, Th, Sat) ID: No concerns for infection [...] A/P Assessment & Plan (02/22/2020 11:25 AM RETAIL PERFORMANCE SPECIALIST): Assessment: Marlee is a 19 year old [...] A/P Assessment & Plan (02/21/2020 10:54 AM RETAIL PERFORMANCE SPECIALIST): Assessment: Marlee is a 19 year old [...] 3 times weekly (, , Sat) - Nexium 20 mg BID, Vit [...] A/P Assessment & Plan (02/20/2020 11:31 AM RETAIL PERFORMANCE SPECIALIST): Assessment: Marlee is a 19 year old [...] Trigylcerides 3 times weekly (Tues, Th, Sat) - Nexium 20 mg BID, [...] A/P Assessment & Plan (02/19/2020 3:04 PM RETAIL PERFORMANCE SPECIALIST): Assessment: Marlee is a 19 year old [...] Phos, Trigylcerides 3 times weekly (, Th, Sat). Will obtain today due to adjustments made in TPN. Assessment & Plan (02/18/2020 10:14 AM RETAIL PERFORMANCE SPECIALIST): Assessment: Marlee is a 19 year old [...] Trigylcerides 3 times weekly (, Th, Sat) Assessment & Plan (02/17/2020 12:30 PM RETAIL PERFORMANCE SPECIALIST): Assessment: Marlee is a 19 year old [...] pending Assessment & Plan (02/16/2020 2:29 PM RETAIL PERFORMANCE SPECIALIST): Assessment: Marlee is a 19 year old [...] pending Assessment & Plan (02/15/2020 12:33 PM RETAIL PERFORMANCE SPECIALIST): Assessment: Marlee is a 19 year old [...] pending Assessment & Plan (02/14/2020 2:23 PM RETAIL PERFORMANCE SPECIALIST): Assessment: Marlee is a 19 year old [...] pending Assessment & Plan (02/13/2020 11:59 AM RETAIL PERFORMANCE SPECIALIST): Assessment: Marlee is a 19 year old [...] pending Assessment & Plan (02/12/2020 11:49 AM RETAIL PERFORMANCE SPECIALIST): Assessment: Marlee is a 19 year old [...] recs Assessment & Plan (02/11/2020 11:56 AM RETAIL PERFORMANCE SPECIALIST): Assessment: Marlee is a 19 year old [...] recs Assessment & Plan (02/10/2020 12:11 PM RETAIL PERFORMANCE SPECIALIST): Assessment: Marlee is a 19 year old [...] SG) Assessment & Plan (02/09/2020 11:49 AM RETAIL PERFORMANCE SPECIALIST): Assessment: Marlee is a 19 year old [...] SG) Assessment & Plan (02/08/2020 12:54 PM RETAIL PERFORMANCE SPECIALIST): Assessment: Marlee is a 19 year old [...] recs. Assessment & Plan (02/07/2020 12:06 PM RETAIL PERFORMANCE SPECIALIST): Assessment: Marlee is a 19 year old [...] SG) Assessment & Plan (02/06/2020 8:12 AM RETAIL PERFORMANCE SPECIALIST): Assessment: Marlee is a 19 year old [...] SG) Assessment & Plan (02/05/2020 9:12 AM RETAIL PERFORMANCE SPECIALIST): Assessment: Marlee is a 19 year old [...] TG) Assessment & Plan (02/04/2020 12:52 PM RETAIL PERFORMANCE SPECIALIST): Assessment: Marlee is a 19 year old [...] TG) Assessment & Plan (02/03/2020 2:38 PM RETAIL PERFORMANCE SPECIALIST): Assessment: Marlee is a 19 year old [...] TG) Assessment & Plan (02/02/2020 4:02 PM RETAIL PERFORMANCE SPECIALIST): Assessment: Marlee is a 19 year old [...] QOD Assessment & Plan (02/01/2020 12:08 PM RETAIL PERFORMANCE SPECIALIST): Assessment: Marlee is a 19 year old [...] RBCs. Assessment & Plan (01/31/2020 1:05 PM RETAIL PERFORMANCE SPECIALIST): Assessment: Marele is a 19 year old with history [...] hematuria Assessment & Plan (01/30/2020 10:30 AM RETAIL PERFORMANCE SPECIALIST): Assessment: Marlee is a 19 year old [...] KITTY protocol: (Per Dr. Sierra and Carin Pennington RD) Continuous feeds of Jevity 1.2, run [...] 10.2 Assessment & Plan (01/29/2020 9:39 PM RETAIL PERFORMANCE SPECIALIST): Assessment: Marlee is a 19 year old [...] KITTY protocol: (Per Dr. Sierra and Carin Pennington RD) Continuous feeds of Jevity 1.2, run [...] syndrome Assessment & Plan (01/28/2020 11:59 AM RETAIL PERFORMANCE SPECIALIST): Assessment: Marlee is a 19 year old [...] QOD Assessment & Plan (01/27/2020 3:59 PM RETAIL PERFORMANCE SPECIALIST): Assessment: Marlee is a 19 year old [...] QOD Assessment & Plan (01/26/2020 5:14 PM RETAIL PERFORMANCE SPECIALIST): Assessment: Marlee is a 19 year old [...] QOD Assessment & Plan (01/25/2020 2:58 PM RETAIL PERFORMANCE SPECIALIST): Assessment: Marlee is a 19 year old [...] QOD Assessment & Plan (01/24/2020 11:54 AM RETAIL PERFORMANCE SPECIALIST): Assessment: Marlee is a 19 year old [...] orthostatics Assessment & Plan (01/23/2020 7:09 AM RETAIL PERFORMANCE SPECIALIST): Assessment: Marlee is a 19 year old [...] orthostatics Assessment & Plan (01/22/2020 4:25 PM RETAIL PERFORMANCE SPECIALIST): Assessment: Marlee is a 19 year old [...] orthostatics Assessment & Plan (01/21/2020 8:15 AM RETAIL PERFORMANCE SPECIALIST): Assessment: Marlee Chavez is a 19 year [...] orthostatics Assessment & Plan (01/20/2020 7:36 AM RETAIL PERFORMANCE SPECIALIST): Assessment: Marlee Chavez is a 19 year [...] orthostatics Assessment & Plan (01/19/2020 7:20 AM RETAIL PERFORMANCE SPECIALIST): Assessment: Marlee Chavez is a 19 year [...] orthostatics Assessment & Plan (01/18/2020 4:30 PM RETAIL PERFORMANCE SPECIALIST): Assessment: Marlee Chavez is a 19 year [...] consult Assessment & Plan (03/27/2020 10:35 AM RETAIL PERFORMANCE SPECIALIST): Assessment: Marlee is admitted on ED Protocol for severe malnutrition. Following feeding plan per [facility]oles[facility] Nutrition. Plan: - see plan under ARFID problem Assessment & Plan (03/26/2020 11:20 AM RETAIL PERFORMANCE SPECIALIST): Assessment: Marlee is admitted on ED Protocol for severe malnutrition. Following feeding plan per Adolescent Medicine and Nutrition. Plan: - see plan under ARFID problem Assessment & Plan (03/24/2020 11:19 AM RETAIL PERFORMANCE SPECIALIST): Assessment: Marlee is admitted on ED Protocol for severe malnutrition. Following feeding plan per Adolescent Medicine and Nutrition. Plan: - see plan under ARFID problem Assessment & Plan (03/23/2020 9:00 AM RETAIL PERFORMANCE SPECIALIST): Assessment: Marlee is admitted on ED Protocol for severe malnutrition. Following feeding plan per Adolescent Medicine and Nutrition. Plan: - see plan under ARFID problem Assessment & Plan (03/22/2020 12:21 PM RETAIL PERFORMANCE SPECIALIST): Assessment: Marlee is admitted on ED Protocol for severe malnutrition. Following feeding plan per Adolescent Medicine and Nutrition. Plan: - see plan under ARFID problem Assessment & Plan (03/17/2020 4:26 PM RETAIL PERFORMANCE SPECIALIST): Assessment: 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 and [...] anxiety Assessment & Plan (03/15/2020 11:10 AM RETAIL PERFORMANCE SPECIALIST): Assessment: Marlee is admitted on ED Protocol for severe malnutrition. Following feeding plan per Adolescent Medicine and Nutrition. Plan: - see plan under ARFID problem Assessment & Plan (03/10/2020 11:17 AM RETAIL PERFORMANCE SPECIALIST): Assessment: 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 and [...] needed Assessment & Plan (03/06/2020 10:09 AM RETAIL PERFORMANCE SPECIALIST): Assessment: Marlee is admitted on ED Protocol for severe malnutrition. Following feeding plan per Adolescent Medicine and Nutrition. Plan: - see plan under ARFID problem Assessment & Plan (03/04/2020 1:41 PM RETAIL PERFORMANCE SPECIALIST): Assessment: Marlee is admitted on ED Protocol for severe malnutrition. Following feeding plan per Adolescent Medicine and Nutrition. Plan: - see plan under ARFID problem Assessment & Plan (03/04/2020 11:50 AM RETAIL PERFORMANCE SPECIALIST): Assessment: Marlee is admitted on ED Protocol for severe malnutrition. Following feeding plan per Adolescent Medicine and Nutrition. Plan: - see plan under ARFID problem Assessment & Plan (03/03/2020 3:53 PM RETAIL PERFORMANCE SPECIALIST): Assessment: 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 and [...] dad. Assessment & Plan (02/27/2020 9:57 AM RETAIL PERFORMANCE SPECIALIST): Assessment: Marlee is admitted on ED Protocol for severe malnutrition. Following feeding plan per Adolescent Medicine and Nutrition. Plan: - see plan under ARFID problem Assessment & Plan (02/26/2020 9:59 AM RETAIL PERFORMANCE SPECIALIST): Assessment: 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 and [...] plan. Assessment & Plan (02/25/2020 5:48 PM RETAIL PERFORMANCE SPECIALIST): Assessment: 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 and [...] plan. Assessment & Plan (02/18/2020 4:54 PM RETAIL PERFORMANCE SPECIALIST): Assessment: 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 and [...] daily Assessment & Plan (02/11/2020 11:47 AM RETAIL PERFORMANCE SPECIALIST): Assessment: 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 and [...] BID Assessment & Plan (02/09/2020 11:50 AM RETAIL PERFORMANCE SPECIALIST): Assessment: Marlee is admitted on ED Protocol for severe malnutrition. Following feeding plan per Adolescent Medicine and Nutrition. Plan: - see plan under ARFID problem Assessment & Plan (02/07/2020 11:47 AM RETAIL PERFORMANCE SPECIALIST): Assessment: Marlee is admitted on ED Protocol for severe malnutrition. Following feeding plan per Adolescent Medicine and Nutrition. Plan: - see plan under ARFID problem Assessment & Plan (02/06/2020 8:12 AM RETAIL PERFORMANCE SPECIALIST): Assessment: Marlee is admitted on ED Protocol for severe malnutrition. Following feeding plan per Adolescent Medicine and Nutrition. Plan: - see plan under ARFID problem Assessment & Plan (02/05/2020 9:01 AM RETAIL PERFORMANCE SPECIALIST): Assessment: Marlee is admitted on ED Protocol for severe malnutrition. Following feeding plan per Adolescent Medicine and Nutrition. Plan: - see plan under ARFID problem Assessment & Plan (02/04/2020 12:34 PM RETAIL PERFORMANCE SPECIALIST): Assessment: Marlee is admitted on ED Protocol for severe malnutrition. Following feeding plan per Adolescent Medicine and Nutrition. Plan: - see plan under ARFID problem Assessment & Plan (02/03/2020 2:28 PM RETAIL PERFORMANCE SPECIALIST): Assessment: Marlee is admitted on ED Protocol for severe malnutrition. Following feeding plan per Adolescent Medicine and Nutrition. Plan: - see plan under ARFID problem Assessment & Plan (02/02/2020 3:57 PM RETAIL PERFORMANCE SPECIALIST): Assessment: Marlee is admitted on ED Protocol for severe malnutrition. Following feeding plan per Adolescent Medicine and Nutrition. Plan: - see plan under ARFID problem Assessment & Plan (02/01/2020 12:10 PM RETAIL PERFORMANCE SPECIALIST): Assessment: Marlee is admitted on ED Protocol for severe malnutrition. Following feeding plan per Adolescent Medicine and Nutrition. Plan: - see plan under ARFID problem Assessment & Plan (01/31/2020 1:04 PM RETAIL PERFORMANCE SPECIALIST): Assessment: Marlee is admitted on ED Protocol for severe malnutrition. Following feeding plan per Adolescent Medicine and Nutrition. Plan: - see plan under ARFID problem Assessment & Plan (01/30/2020 10:28 AM RETAIL PERFORMANCE SPECIALIST): Assessment: Marlee is admitted on ED Protocol for severe malnutrition. Following feeding plan per Adolescent Medicine and Nutrition. Plan: - see plan under ARFID problem Assessment & Plan (01/28/2020 4:29 PM RETAIL PERFORMANCE SPECIALIST): Assessment: 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 and [...] BID Assessment & Plan (01/24/2020 11:54 AM RETAIL PERFORMANCE SPECIALIST): Assessment: Marlee is admitted on ED Protocol for severe malnutrition. Following feeding plan per Adolescent Medicine and Nutrition. Plan: - see plan under ARFID problem Assessment & Plan (01/23/2020 7:09 AM RETAIL PERFORMANCE SPECIALIST): Assessment: Marlee is admitted on ED Protocol for severe malnutrition. Following feeding plan per Adolescent Medicine and Nutrition. Plan: - see plan under ARFID problem Assessment & Plan (01/22/2020 9:48 AM RETAIL PERFORMANCE SPECIALIST): Assessment: 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 and [...] () Assessment & Plan (01/22/2020 7:52 AM RETAIL PERFORMANCE SPECIALIST): Assessment: Marlee is admitted on ED Protocol for severe malnutrition. Following feeding plan per Adolescent Medicine and Nutrition. Plan: - see plan under ARFID problem Assessment & Plan (01/21/2020 10:33 AM RETAIL PERFORMANCE SPECIALIST): Assessment: 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 and [...] () Assessment & Plan (01/21/2020 7:40 AM RETAIL PERFORMANCE SPECIALIST): Assessment: Marlee is admitted on ED Protocol for severe malnutrition. Following feeding plan per Adolescent Medicine and Nutrition. Plan: - see plan under ARFID problem Assessment & Plan (01/20/2020 7:36 AM RETAIL PERFORMANCE SPECIALIST): Assessment: Marlee is admitted on ED Protocol for severe malnutrition. Following feeding plan per Adolescent Medicine and Nutrition. Plan: - see plan under ARFID problem Assessment & Plan (01/19/2020 7:22 AM RETAIL PERFORMANCE SPECIALIST): Assessment: Marlee is admitted on ED Protocol for severe malnutrition. Following feeding plan per Adolescent Medicine and Nutrition. Plan: - see plan under ARFID problem Assessment & Plan (01/18/2020 4:25 PM RETAIL PERFORMANCE SPECIALIST): Assessment: Marlee Chavez is a 19 year [...] orthostatics Assessment & Plan (01/17/2020 12:38 PM RETAIL PERFORMANCE SPECIALIST): Assessment: Marlee Chavez is a 19 year [...] anxiety Assessment & Plan (01/16/2020 1:41 PM RETAIL PERFORMANCE SPECIALIST): Assessment: Marlee Chavez is a 19 year [...] anxiety Assessment & Plan (01/15/2020 8:49 PM RETAIL PERFORMANCE SPECIALIST): Assessment: 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 and [...] counseling. Assessment & Plan (01/15/2020 11:57 AM RETAIL PERFORMANCE SPECIALIST): Assessment: Marlee Chavez is a 19 year [...] anxiety Assessment & Plan (01/14/2020 1:00 PM RETAIL PERFORMANCE SPECIALIST): Assessment: 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 and [...] () Assessment & Plan (01/14/2020 9:54 AM RETAIL PERFORMANCE SPECIALIST): Assessment: Marlee Chavez is a 19 year [...] anxiety Assessment & Plan (01/13/2020 2:34 PM RETAIL PERFORMANCE SPECIALIST): Assessment: Marlee Chavez is a 19 year [...] anxiety Assessment & Plan (01/13/2020 12:01 PM RETAIL PERFORMANCE SPECIALIST): Moderate protein-calorie malnutrition Assessment: Marlee Chavez is [...] thereafter Assessment & Plan (01/12/2020 3:40 PM RETAIL PERFORMANCE SPECIALIST): Moderate protein-calorie malnutrition Assessment: Marlee Chavez is [...] Tums BID - Follow up with Dr. Ricardo - Marlee interested in meeting - Repeat height (discrepency in growth chart) Assessment & Plan (01/12/2020 1:25 PM RETAIL PERFORMANCE SPECIALIST): Assessment: Marlee Chavez is a 19 year [...] anxiety Assessment & Plan (01/11/2020 11:43 AM RETAIL PERFORMANCE SPECIALIST): Assessment: Marlee Chavez is a 19 year [...] cysts Assessment & Plan (01/10/2020 9:32 AM RETAIL PERFORMANCE SPECIALIST): Assessment: Marlee Chavez is a 19 year [...] cysts Assessment & Plan (01/09/2020 11:08 AM RETAIL PERFORMANCE SPECIALIST): Assessment: Marlee Chavez is a 19 year [...] cysts Assessment & Plan (01/08/2020 1:32 PM RETAIL PERFORMANCE SPECIALIST): Assessment: Marlee Chavez is a 19 year [...] cysts Assessment & Plan (01/07/2020 2:52 PM RETAIL PERFORMANCE SPECIALIST): Assessment: Marlee Chavez is a 19 year [...] cysts Assessment & Plan (01/06/2020 11:27 AM RETAIL PERFORMANCE SPECIALIST): Assessment: Marlee Chavez is a 19 year [...] cysts Assessment & Plan (01/05/2020 3:49 PM RETAIL PERFORMANCE SPECIALIST): Assessment: Marlee Chavez is a 19 year [...] cysts Assessment & Plan (01/04/2020 1:53 PM RETAIL PERFORMANCE SPECIALIST): Assessment: Marlee Chavez is a 19 year [...] cysts Assessment & Plan (01/03/2020 12:34 AM RETAIL PERFORMANCE SPECIALIST): Assessment: Marlee Chavez is a 19 year [...] unspecified whether recurrent 02/14/2022 03/18/2023 Electrolyte abnormality 01/23/2022 02/06/2023 Intractable nausea and vomiting 10/29/2021 03/18/2023 Assessment [...] to General medicine (purple team)- Dr. Valdez -mIVF LR at 95ml/hr -Continue home medications: Zyprexa, [...] 03/18/2023 Assessment & Plan (01/24/2022 5:04 PM RETAIL PERFORMANCE SPECIALIST): Assessment: Marlee Chavez is a 20 year [...] gabapentin Assessment & Plan (01/23/2022 6:56 PM RETAIL PERFORMANCE SPECIALIST): Assessment: Marlee Chavez is a 20 year [...] abdominal pain. Plan: Admit to General medicine (guillermo team)- Dr.Marta Ledbetter -mIVF LR at 100ml/hr [...] pain Assessment & Plan (01/08/2021 3:05 PM RETAIL PERFORMANCE SPECIALIST): Assessment: Patient is an 20 year old [...] I&Os Assessment & Plan (01/07/2021 4:52 PM RETAIL PERFORMANCE SPECIALIST): Assessment: Patient is an 20 year old [...] it Assessment & Plan (01/06/2021 6:00 PM RETAIL PERFORMANCE SPECIALIST): Assessment: Patient is an 20 year old [...] I&Os Assessment & Plan (01/05/2021 1:27 PM RETAIL PERFORMANCE SPECIALIST): Assessment: Patient is an 20 year old [...] I&Os Assessment & Plan (01/04/2021 9:17 PM RETAIL PERFORMANCE SPECIALIST): Assessment: Patient is an 20 year old [...] I&Os Assessment & Plan (01/03/2021 8:43 PM RETAIL PERFORMANCE SPECIALIST): Assessment: Patient is an 20 year old [...] wearing condom. She has upcoming appointment with mortgage analyst next month at which time, she will be getting a IUD. Plan: -urine test today -GC, chlamydia, trichomonas testing Assessment & Plan (05/24/2020 2:43 PM CDT): Will get urine Hcg and STI testing. Mom is aware and Marlee is ok with us communicating results to her mother. Purging 03/24/2020 05/24/2020 Assessment & Plan (04/05/2020 3:23 PM RETAIL PERFORMANCE SPECIALIST): Assessment: Has been drinking excessive amounts of water and putting her fingers in her mouth to induce vomiting. No recorded emesis since 03/25. Plan: Will limit access to water to 250ml at a time. May only bathe once per day after she has taken her meds, had breakfast and lunch. Assessment & Plan (04/04/2020 12:58 PM RETAIL PERFORMANCE SPECIALIST): Assessment: Has been drinking excessive amounts of water and putting her fingers in her mouth to induce vomiting. No recorded emesis since 03/25. Plan: Will limit access to water to 250ml at a time. May only bathe once per day after she has taken her meds, had breakfast and lunch. Assessment & Plan (04/01/2020 11:55 AM RETAIL PERFORMANCE SPECIALIST): Assessment: Has been drinking excessive amounts of water and putting her fingers in her mouth to induce vomiting. No recorded emesis since 03/25. Plan: Will limit access to water to 250ml at a time. May only bathe once per day after she has taken her meds, had breakfast and lunch. Assessment & Plan (03/24/2020 4:53 PM RETAIL PERFORMANCE SPECIALIST): Assessment: Has been drinking excessive amounts of water and putting her fingers in her mouth to induce vomiting. Plan: Will limit access to water to 250ml at a time. May only bathe once per day after she has taken her meds, had breakfast and lunch. Ovarian cyst 01/12/2020 03/19/2020 Assessment & Plan (03/15/2020 11:10 AM RETAIL PERFORMANCE SPECIALIST): Assessment: on ultrasound on R Plan: -Radiology recommended repeat imaging in 6 months for ovarian cysts Assessment & Plan (03/04/2020 1:41 PM RETAIL PERFORMANCE SPECIALIST): Assessment: on ultrasound on R Plan: -Radiology recommended repeat imaging in 6 months for ovarian cysts Assessment & Plan (03/04/2020 11:50 AM RETAIL PERFORMANCE SPECIALIST): Assessment: on ultrasound on R Plan: -Radiology recommended repeat imaging in 6 months for ovarian cysts Assessment & Plan (02/27/2020 9:58 AM RETAIL PERFORMANCE SPECIALIST): Assessment: on ultrasound on R Plan: -Radiology recommended repeat imaging in 6 months for ovarian cysts Assessment & Plan (01/28/2020 11:59 AM RETAIL PERFORMANCE SPECIALIST): Assessment: on ultrasound on R Plan: -Radiology recommended repeat imaging in 6 months for ovarian cysts Assessment & Plan (01/27/2020 3:52 PM RETAIL PERFORMANCE SPECIALIST): Assessment: on ultrasound on R Plan: -Radiology recommended repeat imaging in 6 months for ovarian cysts Assessment & Plan (01/26/2020 6:01 PM RETAIL PERFORMANCE SPECIALIST): Assessment: on ultrasound on R Plan: -Radiology recommended repeat imaging in 6 months for ovarian cysts Assessment & Plan (01/13/2020 2:33 PM RETAIL PERFORMANCE SPECIALIST): Assessment: on ultrasound on R Plan: -Radiology recommended repeat imaging in 6 months for ovarian cysts Assessment & Plan (01/12/2020 1:26 PM RETAIL PERFORMANCE SPECIALIST): Assessment: on ultrasound on R Plan: -Radiology recommended repeat imaging in 6 months for ovarian cysts Self-injurious behavior 03/25/201705/12 Major depressive disorder, severe 03/21/2017 05/24/2020 Intractable vomiting 020 Encounters Date Type Department Care Team Description 03/05/[address] [facility] - Family Medicine [address] [place] [address] [phone] Ronel Thornton DO Familial hypercholesterolemia 03/05/2024 Travel 03/05/[address] [facility] - Family Medicine [address] [place] [address] [phone] Ronel Thornton DO New Med Request 01/15/2024 3:00 PM RETAIL PERFORMANCE SPECIALIST Procedure visit [facility] [address] [place] [phone] Nai Jurado MD Encounter for insertion of Mirena IUD from Last 3 Months Immunizations Name Administration Dates Next Due [employer] primary monoval ent 12+ yr 0.3mL Purple [...] 07/08/2007,2002,2002 TDAP, HISTORIC VACCINE 12/15/2013 VARICELLA 07/08/2007,08/25/2003 Family History Medical History Relation Name Comments Hypertension Maternal Grandmother Depression Mother Hypertension Mother CAD (Coronary Artery Disease) Neg Hx Thyroid Disease Neg Hx Relation Name Status Comments Maternal Grandmother Mother Social History Tobacco Use Types Packs/Day Years [...] you are drinking? Patient does not drink 03/12/202 4 Q3: How often do you have si x or more drinks on one occasion? Never 04/23/2023 Overall Financial Resource Strain (CARDIA) Answe r Date Recorded How hard is it for you to pa y for the very basics like food, housing, medical care, and heating? Not hard at all 04/24/2023 PHQ-2 Answer Date Recorded Patient Health Questionnaire-2 Score 0 01/15/2024 [facility] - Occupational Stress Questionnaire Answer Date Recorded [...] place to sleep or slept in a long-term (including now)? No 04/24/2023 Sex and Gender Information Value Date Recorded Sex Assigned at Not on file Gender Identity Not on file Sexual Orientation Not on file Last Filed Vital Signs Vital Sign Reading Time Taken Comments Blood Pressure 105/74 01/15/2024 2:50 PM RETAIL PERFORMANCE SPECIALIST Pulse 65 01/15/2024 2:50 PM RETAIL PERFORMANCE SPECIALIST Temperature 36.3 C (97.4 F) 05/21/2023 11:54 AM CDT Respiratory Rate 18 04/28/2023 7:42 PM CDT Oxygen Saturation 99% 05/21/2023 11:54 AM CDT Inhaled Oxygen Concentration 21% 06/27/2021 6 :30 PM CDT Weight 46.3 kg (102 lb) 01/15/2024 2:50 PM RETAIL PERFORMANCE SPECIALIST Height 154.9 cm (5' 1 ) 01/15/2024 2:50 PM RETAIL PERFORMANCE SPECIALIST Body Mass Index 19.27 01/15/2024 2:50 PM RETAIL PERFORMANCE SPECIALIST Plan of Treatment Upcoming Encounters Date Type Department Care Team (Late st Contact Info) Description 10/08/2024 8:00 AM CDT Office Visit [facility] - Family Medicine [address] [place] [phone] Ronel Thornton DO [address] [place] [phone] Health Maintenance Due Date Last Done Comments HPV VACCINE (1 - 3-dose series) 2017 MENINGOCOCCAL (Group B) VACCINE (1 of 2 - Standard) 2018 COVID-19 VACCINE ( season) 2023 02/23/2021, 07/26/2020, 07/03/2020 INFLUENZA VACCINE (#1) 2023 01/25/2022, 2020 DTAP/TDAP/TD VACCINES (7 - Td or Tdap) 12/16/2023 12/15/2013, 07/08/2007, 02/22/2004, Additional history exists DEPRESSION SCREENING 02/12/2024 05/21/2023, 03/18/2023, 08/15/2022, Additional history exists CHLAMYDIA/GONORRHEA SCREENING 11/28/2024 11/29/2023, 06/07/2022, 01/23/2022, Additional history exists PAP SMEAR 11/28/2026 11/29/2023 ZOSTER VACCINE (1 of 2) 2052 PNEUMOCOCCAL VACCINE Aged Out 02/22/2003, 2002, 2002 No longer eligible based on patient's age to complete this topic HEPATITIS B VACCINE Completed 02/22/2004, 06/09/2003, 02/22/2003, Additional history exists HIB VACCINE Completed 02/22/2004, 02/11, 2002, Additional history exists MENINGOCOCCAL VACCINE Aged Out 12/15/2013 No linda jack eligible based on patient's age to complete this topic HEPATITIS C SCREENING Completed 12/07/2021 HIV SCREENING Completed 11/29/2023, 11/12, 08/10/2021, Additional history exists Procedures Procedure Name Priority Date/Time Associated Diagnosis [...] 21-29 [facility] ACCOUNT BILL Comment: Performed at: 02 - [facility] [address] [id number] Control Room Supervisor: Meredith Gil MD, Phone: [phone] Performed at: - [facility] [address] [place], [place] [id number] Control Room Supervisor: Meredith Gil MD, Phone: [phone] Diagnosis Comment(A) [facility] ACCOUNT BILL Comment: EPITHELIAL [...] AM CDT 11/29/2023 Comment:Cervix Release to pa suleman Brennan [facility] ACCOUNT BILL - 12/05/2023 5:09 PM CDT Performed at: 01 - [facility] [address] [id number] Control Room Supervisor: Meredith Gil MD, Phone: [phone] Specimen Comment: [id number] Specimen Comment: Source.............Cervix Specimen Comment: No. of containers..01 ThinPrep Vial Nai Jurado MD LAB - PATHOLOGY/CYTO LOGY ORDERABLES [facility] ACCOUNT BILL [address] [place] [address] * HIV-1 HIV-2 ANTIBODY + HIV P24 AG PANEL (11/29/2023 10:55 AM CDT) Pathologist [facility] HIV Screen 4th Generation w Reflex Non Reactive Non Reactive [facility] ACCOUNT BILL Comment: HIV-1/HIV-2 antibodies and HIV-1 p24 antigen were NOT detected. There is no laboratory evidence of HIV infection. HIV Negative Blood BLOOD SPECIMEN / Unknown 11/29/2023 10:55 AM CDT 11/29/2023 Narrative [facility] ACCOUNT BILL - 11/30/2023 10:10 AM CDT [facility]formed at: - [facility] [address] [place], [place] [id number] Control Room Supervisor: Karlos Huffman PhD, Phone: [phone] Nai Jurado MD LAB - CHEMISTRY [place] Performing Organization Address City/[facility]/ZIP Co de Phone Number [facility] ACCOUNT BILL [address] [place] [address] * HEPATITIS C AB W/RFLX TO HCV RNA QN PCR (12/07/2021) Pathologist [facility] Hepatitis C Antibody NON-REACTI VE NON-REACT KASIA [facility] Signal to Cut-Off 0.08 <1.00 QUEST Comment: HCV antibody was non-reactive. There is no laboratory evidence of HCV infection. In most cases, no further action is required. However, if recent HCV exposure is suspected, a test for HCV RNA (test code 87609) is suggested. For additional information please refer to http://education.Chegongfang/faq/EGM58g4 (This link is being provided for informational/ educational purposes only.) Test Performed at: [facility] [address] [place] [address] PURVI PABLO DO,MPH Blood BLOOD SPECIMEN / Unknown 12/07/2021 12/07/2021 10:47 AM CDT Karrie Mack MD LAB - CHEMISTRY JESSICA ESCOBEDO [facility] [address] [place] [address] from Last 3 Months or Most Recently [...] 4:54 PM 06/22/2022 2:44 PM Care Teams Director Of Quality Improvement Relationship Specialty Start Date End Date Ronel Thornton DO [address] [place] [address] PCP - General Family Medicine 03/18/23 Ronel Thornton DO [address] [place] [address] PCP - Attributed-[facility] STL 04/12/23
--- OUTSIDE RECORDS SUMMARY | 2024-03-28 03:06 | XMS_ITS | Encounter Summary ---
Author Organization [facility] Address [address] [place] [address] Care Team Providers Care Heel Cover Softener Name Role Phone Mellissa Jiménez MD Primary Care Provider [phone] Ronel Thornton DO Primary Care Provider [phone] Daphnie Gillespie MD Unavailable Juliana Peralta PETROLEUM REFINERY LABORER Unavailable [phone] Juliana Peralta Unavailable [phone] Ronel Thornton DO Unavailable [phone] Kenyatta Taylor RN Unavailable [phone] Tiago Lew Unavailable [phone] Encounter Details Date Type Department Care Team (Late st Contact Info) Description 07/28/2020 Telephone [facility] Pediatrics - Pulmonology [address] [place] [address] Bessie Erwin Social History Tobacco Use Types Packs/Day Years Used Date Smoking Tobacco: Never Smokeless Tobacco: Never Alcohol Use Standard Drinks/Week Comments No 0 (1 standard drink = 0.6 oz pur e alcohol) Sex and Gender Information Value Date Recorded Sex Assigned at Not on file Gender Identity Not on file Sexual Orientation Not on file COVID-19 Exposure Response Date Recorded In the last month, have you been in contact with someone who was confirmed or suspected to have Coronavirus / COVID-19? No / Unsure 07/25/2020 10:52 AM CDT documented as of this encounter Functional Status Functional Status Response Date of Assess ment Is person deaf or have serious hearing difficult y? No 04/08/2020 Is person blind or have serious difficulty seein g? No 04/08/2020 Does person have serious dif ficulty walking/climbing stairs? No 04/08/2020 Does person have difficulty dressing/bathing? No 04/08/2020 Does person have difficulty doing errands alone? No 04/08/2020 Cognitive Status Response Date of Assessm ent Does person have difficulty concentrating/remembering/making decisions? No 04/08/2020 documented as of this encounter Miscellaneous Notes * Telephone Encounter - Daphnie Gillespie MD - 07/29/2020 10:08 AM CDT Don has restarted her prozac, it talking her meds (mom is distributing them to her) and keeping them down. She was involuntarily vomiting 07/24 to 07/28 (none since yesterday 07/28 am). Mom also noted induced vomiting at times as well, Kenyatta said it was because her abd pain was some what relieved by vomiting. This morning she is drinking excessive water, mom thinks it is to induce vomiting. No signs of dehydration. I will prescribe prn atarax to see if that helps with underlying anxiety while waiting for full effect of prozac. I will follow up with mom by phone on Saturday. Advised mom to take Kenyatta to the emergency room if she develops signs of dehydration, which I reviewed with mom. Mom voiced understanding and agrees with the plan. Daphnie Gillespie MD * Telephone Encounter - Bessie Erwin - 07/28/2020 2:15 PM CDT Mom called regarding not eating [phone] Gillespie documented in this encounter Plan of Treatment Upcoming Encounters Date Type Department Care Team (Late st Contact Info) Description 10/08/2024 8:00 AM CDT Office Visit [facility] - Family Medicine [address] [place] [address] [id number] Ronel Thornton DO [address] [place] [address] documented as of this encounter Visit Diagnoses Not on filedocumented in this encounter Additional Health Concerns Infection Onset Date Last Indicated Resolved Time COVID-19 Under Investigation 08/10/2021 08/10/2021 08/10/2021 2:59 AM CDT documented as of this encounter Care Teams Heel Cover Softener Relationship Specialty Start Date End Date Mellissa Jiménez MD [address] [place] [address] [place] [address] PCP - General Family Medicine 04/25/20 03/17/23 Ronel Thornton DO [address] [place] [address] PCP - General Family Medicine 03/18/23 Daphnie Gillespie MD [address] [place] [address] PCP - Attributed-[facility] STL 02/11/23 04/11/23 Ronel Thornton DO [address] [place] [address] PCP - Attributed-[facility] STL 04/12/23 Juliana Peralta MSW Outpatient Mail Deliverer Care Management 04/24/2304/11 Juliana Peralta MSW Outpatient Mail Deliverer Care Management 04/30/2304/12 Kenyatta Taylor RN [address] [address] Regional Marketing DirectorPublic Service Administrator 09/02/23 10/04/23 Tiago Lew Care Coordination Specialist Care Management 09/26/23 11/10/23 documented as of this encounter
--- OUTSIDE RECORDS SUMMARY | 2024-03-28 03:06 | XMS_ITS | Encounter Summary ---
Author Organization [facility] Address [address] [place] [address] Care Team Providers Care Shipping And Receiving Supervisor Name Role Phone Mellissa Jiménez MD Primary Care Provider [phone] Ronel Thornton DO Primary Care Provider Daphnie Gillespie MD Unavailable Juliana Peralta CONTACT LENS FITTER Unavailable [phone] Juliana Peralta CONTACT LENS FITTER Unavailable [phone] Ronel Thornton DO Unavailable Kenyatta Taylor RN Unavailable [phone] Tiago Lew Unavailable [phone] Reason for Visit * Reason Onset Date Comments Forms 01/23/2021 Encounter Details Date Type Department Care Team (Late st Contact Info) Description 01/23/2021 Telephone [facility] Pediatrics - Surgery [address] [place] [address] Daphnie Gillespie MD [address] [place] [phone] Forms Social History Tobacco Use Types Packs/Day Years Used Date Smoking Tobacco: Never Smokeless Tobacco: Never Alcohol Use Standard Drinks/Week Comments No 0 (1 standard drink = 0.6 oz pur e alcohol) AUDIT-C Answer Date Recorded Q1: How often do you have a drink containing alc ohol? Never 01/03/2021 Average Number of Drinks Not on file 021 Frequency of Binge Drinking Not on file 12/13 Sex and Gender Information Value Date Recorded Sex Assigned at Not on file Gender Identity Not on file Sexual Orientation Not on file COVID-19 Exposure Response Date Recorded In the last month, have you been in contact with someone who was confirmed or suspected to have Coronavirus / COVID-19? No / Unsure 01/24/2021 11:47 AM PRIVATE DUTY LPN documented as of this encounter Functional Status Functional Status Response Date of Assess ment Is person deaf or have serious hearing difficult y? No 01/06/2021 Is person blind or have serious difficulty seein g? No 01/06/2021 Does person have serious dif ficulty walking/climbing stairs? No 01/06/2021 Does person have difficulty dressing/bathing? No 01/06/2021 Does person have difficulty doing errands alone? No 01/06/2021 Cognitive Status Response Date of Assessm ent Does person have difficulty concentrating/remembering/making decisions? No 01/06/2021 documented as of this encounter Miscellaneous Notes * Telephone Encounter - Madelyn Betancur - 01/23/2021 4:35 PM CST Kenyatta stated she faxed a medical form last week to be filled out by the doctor for in patient facility and wanted to know if it was received. ATE DUTY LPN documented in this encounter Plan of Treatment Upcoming Encounters Date Type Department Care Team (Late st Contact Info) Description 10/08/2024 8:00 AM CDT Office Visit [facility] - Family Medicine [address] [place] [address] Ronel Thornton DO [address] [place] [address] documented as of this encounter Visit Diagnoses Not on filedocumented in this encounter Additional Health Concerns Infection Onset Date Last Indicated Resolved Time COVID-19 Under Investigation 08/10/2021 08/10/2021 08/10/2021 2:59 AM CDT documented as of this encounter Care Teams Shipping And Receiving Supervisor Relationship Specialty Start Date End Date Mellissa Jiménez MD [address] [place] [address] [place] [address] PCP - General Family Medicine 04/25/20 03/17/23 Ronel Thornton DO [address] [place] [address] PCP - General Family Medicine 03/18/23 Daphnie Gillespie MD [address] [place] [address] PCP - Attributed-[facility] STL 02/11/23 04/11/23 Ronel Thornton DO [address] [place] [address] PCP - Attributed-[facility] STL 04/12/23 Juliana Peralta MSW Outpatient Microarray Analyst Care Management 04/24/2304/11 Juliana Peralta MSW Outpatient Microarray Analyst Care Management 04/30/2304/12 Kenyatta Taylor RN [address] [address] Steel SamplerPara Machine Operator 09/02/23 10/04/23 Tiago Lew Care Coordination Specialist Care Management 09/26/23 11/10/23 documented as of this encounter
--- OUTSIDE RECORDS SUMMARY | 2024-03-28 03:06 | XMS_ITS | Encounter Summary ---
Author Organization [facility] Address [address] [place] [address] Care Team Providers Care Administrative Sales Assistant Name Role Phone Mellissa Jiménez MD Primary Care Provider [phone] Ronel Thornton DO Primary Care Provider [phone] Daphnie Gillespie MD Unavailable Juliana Peralta MOTOR TESTER Unavailable [phone] Juliana Peralta MOTOR TESTER Unavailable [phone] Ronel Thornton DO Unavailable [phone] Kenyatta Taylor RN Unavailable [phone] Tiago Lew Unavailable [phone] Reason for Visit * Reason Onset Date Comments Eating disorder 08/04/2020 Encounter Details Date Type Department Care Team (Late st Contact Info) Description 08/04/2020 Telephone [facility] Dye And Chemical Coordinator [address] [place] [address] Flor Martinez, PHOTO TECHNOLOGIST Eating disorder Social History Tobacco Use Types Packs/Day Years [...] encounter Miscellaneous Notes * Telephone Encounter - Flor Martinez LCSW - 08/04/2020 10:40 AM CDT Several phone calls with Kenyatta's mother Esperanza and [facility] this week regarding Kenyatta's relapse, and mother's belief that she needs to be admitted to [facility]. Spoke with mother again this a.m, and they have a phone intake assessment with [facility] next SaturdayAugust 08. documented in this encounter Plan of Treatment Upcoming Encounters Date Type Department Care Team (Late st Contact Info) Description 10/08/2024 8:00 AM CDT Office Visit [facility] - Family Medicine [address] [place] [address] Ronel Thornton DO [address] [place] [address] documented as of this encounter Visit Diagnoses Not on filedocumented in this encounter Additional Health Concerns Infection Onset Date Last Indicated Resolved Time COVID-19 Under Investigation 08/10/2021 08/10/2021 08/10/2021 2:59 AM CDT documented as of this encounter Care Teams Administrative Sales Assistant Relationship Specialty Start Date End Date Mellissa Jiménez MD [address] [place] [address] [place] [address] PCP - General Family Medicine 04/25/20 03/17/23 Ronel Thornton DO [address] [place] [address] PCP - General Family Medicine 03/18/23 Daphnie Gillespie MD [address] [place] [address] PCP - Attributed-[facility] STL 02/11/23 04/11/23 Ronel Thornton DO [address] [place] [address] PCP - Attributed-[facility] STL 04/12/23 Juliana Peralta MSW Outpatient Media Planner Care Management 04/24/2304/11 Juliana Peralta MSW Outpatient Media Planner Care Management 04/30/2304/12 Kenyatta Taylor RN [address] [address] Theater ManagerStainless Steel Finisher 09/02/23 10/04/23 Tiago Lew Care Coordination Specialist Care Management 09/26/23 11/10/23 documented as of this encounter
--- OUTSIDE RECORDS SUMMARY | 2024-03-28 03:06 | XMS_ITS | Encounter Summary ---
Author Organization [facility] Address [address] [place] [address] Care Team Providers Care Dental Laboratory Technician Name Role Phone Mellissa Jiménez MD Primary Care Provider [phone] Ronel Thornton DO Primary Care Provider [phone] Daphnie Gillespie MD Unavailable Juliana Peralta CALCINE FURNACE TENDER Unavailable [phone] Juliana Peralta CALCINE FURNACE TENDER Unavailable [phone] Ronel Thornton DO Unavailable Kenyatta Taylor RN Unavailable Tiago Lew Unavailable [phone] Reason for Visit * Reason Onset Date Comments Appointment 10/05/2020 Contraceptive management 10/05/2020 Encounter Details Date Type Department Care Team (Late st Contact Info) Description 10/05/2020 Telephone [facility] [address] [place] [address] Karrie Mack MD [address] [place] [address] Appointment; Contraceptive management Social History Tobacco Use Types Packs/Day Years [...] have Coronavirus / COVID-19? No / Unsure 09/26/2020 9:56 AM CDT documented as of this encounter [...] encounter Miscellaneous Notes * Telephone Encounter - Ambreen Pruitt - 10/28/2020 2:27 PM CDT Pt is scheduled 01/19/21 for insertion - clm * Telephone Encounter - Ambreen Pruitt - 10/20/2020 9:50 AM CDT Attempted to call pt - no answer - left voice mail requesting a return call to my direct line in order to schedule - clm * Telephone Encounter - Minerva Sanchez - 10/05/2020 3:15 PM CDT Pt is inquiring about her IUD. She is wanting to know if it is in the office yet to get scheduled. CB# [phone] documented in this encounter Plan of Treatment Upcoming Encounters Date Type Department Care Team (Late st Contact Info) Description 10/08/2024 8:00 AM CDT Office Visit [facility] - Family Medicine [address] [place] [address] [phone] Ronel Thornton DO [address] [place] [address] documented as of this encounter Visit Diagnoses Not on filedocumented in this encounter Additional Health Concerns Infection Onset Date Last Indicated Resolved Time COVID-19 Under Investigation 08/10/2021 08/10/2021 08/10/2021 2:59 AM CDT documented as of this encounter Care Teams Dental Laboratory Technician Relationship Specialty Start Date End Date Mellissa Jiménez MD [address] [place] [address] [place] [address] PCP - General Family Medicine 04/25/20 03/17/23 Ronel Thornton DO [address] [place] [address] [id number] PCP - General Family Medicine 03/18/23 Daphnie Gillespie MD [address] [place] [address] PCP - Attributed-[facility]HP STL 02/11/23 04/11/23 Ronel Thornton DO [address] [place] [id number] PCP - Attributed-[facility] STL 04/12/23 Juliana Peralta MSW Outpatient Tax Economist Care Management 04/24/2304/11 Juliana Peralta MSW Outpatient Tax Economist Care Management 04/30/2304/12 Kenyatta Taylor RN [address] [address] Microsoft Systems EngineerLeach Runner 09/02/23 10/04/23 Tiago Lew Care Coordination Specialist Care Management 09/26/23 11/10/23 documented as of this encounter
--- OUTSIDE RECORDS SUMMARY | 2024-03-28 03:06 | XMS_ITS | Patient Health Summary ---
Author Organization [facility] Address [address] [place] [address] Care Team Providers Care Tip Inserter Name Role Phone Ronel Thornton DO Primary Care Provider [phone] Ronel Thornton DO Unavailable [phone] Note from [facility],non-owned Affiliates and Associated Physician Practices is amultiple site organization consisting of ambulatory clinics and hospital sitesin [place], [place], [place] and [place]. This disclosure is being madepursuant to the Care Everywhere program and may not contain all information available regarding this patient. Last updated 17.[facility] Allergies No known active allergies* Skin Adhesives(Itching),Inactive Medications * Be aware that medications may not be up to date on this document. Alwaysverify current medications with the patient. * atorvastatin (Lipitor) 80 MG tablet(Started 03/05/2024) Take 1 (one) tablet by mouth at bedtime 3 refills by 03/05/2025 Ended Medications* hydrOXYzine HCl (Atarax) 50 MG tablet(Started 04/29/2023) (Discontinued) Take 1 (one) tablet by mouth every 6 hours as needed Reasons: Feeling Anxious * melatonin 3 MG tablet(Started 04/29/2023)(Discontinued) Take 1 (one) tablet by mouth nightly as needed for Insomnia Reasons: Trouble Sleeping * pantoprazole EC (Protonix) 40 MG tablet(Started 04/30/2023)(Discontinued) Take 1 (one) tablet by mouth once daily Reasons: Gastroesophageal Reflux Disease * mirtazapine (Remeron) 15 MG tablet(Started 04/29/2023)(Discontinued) Take 1 (one) tablet by mouth at bedtime Reasons: Major Depressive Disorder * gabapentin (Neurontin) 400 MG capsule(Started 04/29/2023)(Discontinued) Take 1 (one) capsule by mouth 2 times daily Reasons: Mood Disorder * lamoTRIgine XR 24hr (LaMICtal XR) 250 MG tablet(Started 05/21/2023) (Discontinued) Take 1 (one) tablet by mouth once daily 2 refills by 05/20/2024 Active Problems Problem Noted Date Diagnosed Date Familial hypercholesterolemia 10/04/2023 Moderate opioid use disorder 04/28/2023 Cannabis use disorder, moderate, dependence 04/11 PTSD (post-traumatic stress disorder) 04/28/2023 Intentional overdose, initial encounter 04/21/19 Superior mesenteric artery syndrome 03/20/2023 Benzodiazepine withdrawal with complication 06/2023 Borderline personality disorder 03/18/2023 Recurrent major depressive disorder, in full rem ission 02/15/2022 Anorexia 02/14/2022 Bulimia nervosa 01/23/2022 Dysmenorrhea 05/24/2020 Anxiety and depression 01/18/2020 Avoidant-restrictive food intake disorder (ARFID ) 01/12/2020 Moderate malnutrition 01/02/2020 Generalized anxiety disorder 03/25/2017 Resolved Problems Problem [...] whether recurrent 02/14/2022 03/18/2023 Electrolyte abnormality 01/23/2022 02/0 06/2023 Intractable nausea and vomiting 10/29/2021 03/18/2023 Viral gastroenteritis 08/13/20212021 Abdominal pain, generalized 08/10/2021 03/18/2023 Severe dehydration 08/10/2021 Metabolic acidosis 08/10/2021 Hepatitis 08/10/2021 03/18/2023 Surveillance of (intrauterin e) contraceptive device 01/19/2021 12/07/2021 Intractable vomiting with nausea 01/03/2021 08/13/2021 Sexually active teen 05/24/2020 024 Purging 03/24/2020 05/24/2020 Ovarian cyst 01/12/2020 03/19/2020 Self-injurious behavior 03/25/201705/12 Major depressive disorder, severe 03/21/2017 05/24/2020 Intractable vomiting 020 Immunizations * Covid Pfizer primary monovalent 12+ yr 0.3mL Purple cap(Given 07/26/2020, 07/03/2020) * DTAP 5 PERTUSSIS ANTIGENS(Given 07/08/2007, 12/24/2003) * DTAP/HEP B/IPV(Given 02/22/2004) * DTaP VACCINE IM (6wk-6yrs)(Given 02/22/2003, 2002, 2002) * HEP A PEDS 2 DOSE(Given 07/08/2007, 07/09/2006) * HEP B VACCINE, PED/ADOL(Given 06/09/2003, 02/22/2003, 2002) * HIB VACCINE(Given 02/22/2004, 02/22/2003, 2002, 2002) * INFLUENZA VACCINE, QUADR. (AFLURIA, FLUZONE QUADRIVALENT; 6MO+) (IIV4)(Given 01/26/2021) * INFLUENZA VACCINE, QUADR. (FLUZONE; FLULAVAL; FLUARIX; AFLURIA QUADRIVALENT; 6MO+), 0.5 ML (IIV4)(Given 01/25/2022) * MENINGOCOCCAL CONJUGATE (MCV4P)(Given 12/15/2013) * MMR(Given 07/08/2007, 02/22/2004) * PNEUMOCOCCAL PCV7 CONJ, PEDS(Given 02/22/2003, 2002, 2002) * POLIO IPV(Given 07/08/2007, 2002, 2002) * TDAP, HISTORIC VACCINE(Given 12/15/2013) * VARICELLA(Given 07/08/2007, 08/25/2003) Social History Tobacco Use Types Packs/Day Years [...] Recorded Patient Health Questionnaire-2 Score 0 01/15/2024 [facility] - Occupational Stress Questionnaire Answer Date [...] place to sleep or slept in a residential (including now)? No 04/24/2023 Sex and Gender Information Value Date Recorded Sex Assigned at Not on file Gender Identity Not on file Sexual Orientation Not on file Last Filed Vital Signs Vital Sign Reading Time Taken Comments Blood Pressure 105/74 01/15/2024 2:50 PM [facility] Pulse 65 01/15/2024 2:50 PM [facility] [employer] Temperature 36.3 C (97.4 F) 05/21/2023 11:54 AM CDT Respiratory Rate 18 04/28/2023 7:42 PM CDT Oxygen Saturation 99% 05/21/2023 11:54 AM CDT Inhaled Oxygen Concentration 21% 06/27/2021 6 :30 PM CDT Weight 46.3 kg (102 lb) 01/15/2024 2:50 PM [facility] Height 154.9 cm (5' 1 ) 01/15/2024 2:50 PM [facility] Body Mass Index 19.27 01/15/2024 2:50 PM [facility] Procedures * HCG URINE QUALITATIVE - POINT OF CARE (AMB)(Performed 01/15/2024) Performed for Encounter for insertion of Mirena IUD * PAP CERVICAL CANCER SCREEN CT/NG/TV APT(Performed 11/29/2023) Performed for Well woman exam with routine gynecological exam * TREPONEMA PALLIDUM POS REFLX RPR(Performed 11/29/2023) Performed for Well woman exam with routine gynecological exam * HIV-1 HIV-2 ANTIBODY + HIV P24 AG PANEL(Performed 11/29/2023) Performed for Well woman exam with routine gynecological exam * LIPID PROFILE(Performed 10/07/2023) Performed for Familial hypercholesterolemia * LAMOTRIGINE LEVEL(Performed 05/21/2023) Performed for Seizures (HCC) * TSH REFLEX FREE T4(Performed 04/25/2023) * LIPID PROFILE(Performed 04/25/2023) * HEMOGLOBIN A1C(Performed 04/25/2023) * COMPREHENSIVE METABOLIC PANEL(Performed 04/25/2023) * CBC W AUTO DIFFERENTIAL(Performed 04/25/2023) * CARDIAC RHYTHM STRIP ORDER(Performed 04/24/2023) * URINE MICROSCOPIC ONLY(Performed 04/23/2023) * URINE DRUG SCREEN IMMUNOASSAY(Performed 04/23/2023) * URINALYSIS REFLEX TO MICROSCOPIC NO CULTURE(Performed 04/23/2023) * MAGNESIUM BLOOD(Performed 04/23/2023) * BASIC METABOLIC PANEL (CALCIUM TOTAL)(Performed 04/23/2023) * CBC W/O DIFFERENTIAL(Performed 04/23/2023) * HYDROXYINDOLACETIC ACID 5 URINE TIMED(Performed 04/23/2023) * EKG 12-LEAD(Performed 04/22/2023) Performed for Intentional overdose, initial encounter (HCC) * CK BLOOD(Performed 04/22/2023) * RENAL FUNCTION PANEL(Performed 04/22/2023) * MAGNESIUM BLOOD(Performed 04/22/2023) * CBC W/O DIFFERENTIAL(Performed 04/22/2023) * EKG 12-LEAD(Performed 04/21/2023) Performed for Intentional overdose, initial encounter (HCC) * PT EVAL AND TREAT(Performed 04/21/2023) * OT EVAL AND TREAT(Performed 04/21/2023) * CK BLOOD(Performed 04/21/2023) * PHOSPHORUS BLOOD(Performed 04/21/2023) * MAGNESIUM BLOOD(Performed 04/21/2023) * COMPREHENSIVE METABOLIC PANEL(Performed 04/21/2023) * CBC W AUTO DIFFERENTIAL(Performed 04/21/2023) * COMPREHENSIVE METABOLIC PANEL(Performed 03/18/2023) Performed for Anorexia, Recurrent major depressive disorder, in full remission (HCC) * CBC W AUTO DIFFERENTIAL(Performed 03/18/2023) Performed for Anorexia, Recurrent major depressive disorder, in full remission ([facility]) * LIPASE BLOOD(Performed 10/23/2022) * HCG BLOOD QUALITATIVE(Performed 10/23/2022) * CBC W AUTO DIFFERENTIAL(Performed 10/23/2022) * COMPREHENSIVE METABOLIC PANEL(Performed 10/23/2022) * LAB RESULTS ORDER(Performed 08/25/2022) * RENAL FUNCTION PANEL(Performed 08/23/2022) * C-REACTIVE PROTEIN(Performed 08/22/2022) * ERYTHROCYTE SEDIMENTATION RATE(Performed 08/22/2022) * RENAL FUNCTION PANEL(Performed 08/22/2022) * XR ABDOMEN KUB(Performed 08/21/2022) Performed for Encounter for nasojejunal (NJ) tube placement * PHOSPHORUS BLOOD(Performed 08/21/2022) * MAGNESIUM BLOOD(Performed 08/21/2022) * COMPREHENSIVE METABOLIC PANEL(Performed 08/21/2022) * CBC W/O DIFFERENTIAL(Performed 08/21/2022) * PHOSPHORUS BLOOD(Performed 08/19/2022) * MAGNESIUM BLOOD(Performed 08/19/2022) * COMPREHENSIVE METABOLIC PANEL(Performed 08/19/2022) * CBC W/O DIFFERENTIAL(Performed 08/19/2022) * PHOSPHORUS BLOOD(Performed 08/18/2022) * MAGNESIUM BLOOD(Performed 08/18/2022) * COMPREHENSIVE METABOLIC PANEL(Performed 08/18/2022) * CBC W/O DIFFERENTIAL(Performed 08/18/2022) * PHOSPHORUS BLOOD(Performed 08/17/2022) * MAGNESIUM BLOOD(Performed 08/17/2022) * COMPREHENSIVE METABOLIC PANEL(Performed 08/17/2022) * CBC W/O DIFFERENTIAL(Performed 08/17/2022) * CARDIAC EKG ORDER(Performed 2022) * CBC W AUTO DIFFERENTIAL(Performed 2022) * COMPREHENSIVE METABOLIC PANEL(Performed 2022) * LACTIC ACID BLOOD(Performed 2022) * MAGNESIUM BLOOD(Performed 2022) * PHOSPHORUS BLOOD(Performed 2022) * LACTIC ACID BLOOD REFLEX TO REPEAT(Performed 08/15/2022) * LACTIC ACID REPEAT REFLEX(Performed 08/15/2022) * LACTIC ACID BLOOD REFLEX TO REPEAT(Performed 08/15/2022) * CT ANGIO ABDOMEN PELVIS(Performed 08/15/2022) Performed for Abdominal pain, generalized * LACTIC ACID REPEAT REFLEX(Performed 08/15/2022) * LACTIC ACID BLOOD REFLEX TO REPEAT(Performed 08/15/2022) * URINALYSIS REFLEX TO MICROSCOPIC NO CULTURE(Performed 08/15/2022) * EKG 12-LEAD(Performed 08/15/2022) Performed for Abdominal pain, generalized * XR CHEST 1VW PORTABLE(Performed 08/15/2022) Performed for Abdominal pain, generalized * MAGNESIUM BLOOD(Performed 08/15/2022) * HCG BETA BLOOD QUANTITATIVE(Performed 08/15/2022) * LIPASE BLOOD(Performed 08/15/2022) * COMPREHENSIVE METABOLIC PANEL(Performed 08/15/2022) * CBC W AUTO DIFFERENTIAL(Performed 08/15/2022) * MAGNESIUM BLOOD(Performed 06/27/2022) Performed for Hypokalemia * LACTIC ACID BLOOD(Performed 06/27/2022) Performed for Abdominal pain, generalized * BASIC METABOLIC PANEL (CALCIUM TOTAL)(Performed 06/27/2022) Performed for Abdominal pain, generalized * LACTIC ACID BLOOD REFLEX TO REPEAT(Performed 06/26/2022) * LACTIC ACID REPEAT REFLEX(Performed 06/26/2022) * LACTIC ACID BLOOD REFLEX TO REPEAT(Performed 06/26/2022) * CT ABDOMEN PELVIS W CONTRAST(Performed 06/26/2022) Performed for Abdominal pain, generalized * LIPASE BLOOD(Performed 06/26/2022) * COMPREHENSIVE METABOLIC PANEL(Performed 06/26/2022) * LACTIC ACID BLOOD(Performed 06/26/2022) * CBC W AUTO DIFFERENTIAL(Performed 06/26/2022) * MAGNESIUM BLOOD(Performed 06/22/2022) * CBC W/O DIFFERENTIAL(Performed 06/22/2022) * COMPREHENSIVE METABOLIC PANEL(Performed 06/22/2022) * PATHOLOGY TISSUE EXAM (STL)(Performed 06/21/2022) Performed for Abdominal pain, generalized, Pancolitis (HCC) * HELICOBACTER PYLORI UREASE (STL)(Performed 06/21/2022) Performed for Abdominal pain, generalized, Pancolitis (HCC) * ENDOSCOPY, COLON, DIAGNOSTIC(Performed 06/21/2022) * EGD(Performed 06/21/2022) * COLONOSCOPY REMOVAL OR ABLATION TUMOR/POLYP/LESION (ANY METHOD)(Performed 06/21/2022) Performed for Abdominal pain, generalized, Pancolitis (HCC) * MN EGD FLEX TRANSORAL W BX SNGL OR MULT(Performed 06/21/2022) Performed for Abdominal pain, generalized, Pancolitis (HCC) * MN ED EGD FLEX TRANSORAL DX(Performed 06/21/2022) Performed for Abdominal pain, generalized, Pancolitis (HCC) * MN COLONOSCOPY, DIAGNOSTIC(Performed 06/21/2022) Performed for Abdominal pain, generalized, Pancolitis (HCC) * MAGNESIUM BLOOD(Performed 06/21/2022) * COMPREHENSIVE METABOLIC PANEL(Performed 06/21/2022) * CBC W/O DIFFERENTIAL(Performed 06/21/2022) * HCG URINE QUALITATIVE(Performed 06/20/2022) Performed for Nausea and vomiting, unspecified vomiting type * MAGNESIUM BLOOD(Performed 06/20/2022) * CBC W/O DIFFERENTIAL(Performed 06/20/2022) * COMPREHENSIVE METABOLIC PANEL(Performed 06/20/2022) * MAGNESIUM BLOOD(Performed 06/19/2022) * TSH REFLEX FREE T4(Performed 06/19/2022) * CBC W/O DIFFERENTIAL(Performed 06/19/2022) * COMPREHENSIVE METABOLIC PANEL(Performed 06/19/2022) * LACTIC ACID BLOOD(Performed 06/18/2022) * LACTIC ACID BLOOD REFLEX TO REPEAT(Performed 06/18/2022) * ED CRITICAL CARE(Performed 06/18/2022) Performed for Sepsis, due to unspecified organism, unspecified whether acute organ dysfunction present (HCC) * CULTURE BLOOD(Performed 06/18/2022) * LACTIC ACID REPEAT REFLEX(Performed 06/18/2022) * LACTIC ACID BLOOD REFLEX TO REPEAT(Performed 06/18/2022) * CULTURE BLOOD(Performed 06/18/2022) * CT ABDOMEN PELVIS W CONTRAST(Performed 06/18/2022) Performed for Abdominal pain, generalized * COMPREHENSIVE METABOLIC PANEL(Performed 06/18/2022) * CBC W AUTO DIFFERENTIAL(Performed 06/18/2022) * BASIC METABOLIC PANEL (CALCIUM TOTAL)(Performed 06/09/2022) Performed for Nausea and vomiting, unspecified vomiting type * FL UGI W SM BOWEL FOLLOW THRU(Performed 06/08/2022) Performed for Abdominal pain, generalized * BASIC METABOLIC PANEL (CALCIUM TOTAL)(Performed 06/08/2022) Performed for Nausea and vomiting, unspecified vomiting type * CBC W AUTO DIFFERENTIAL(Performed 06/08/2022) Performed for Nausea and vomiting, unspecified vomiting type * TRICHOMONAS RAPID TEST(Performed 06/07/2022) Performed for Abdominal pain, generalized * CHLAMYDIA + GC AMPLIFIED PROBE(Performed 06/07/2022) Performed for Abdominal pain, generalized * HCG BETA BLOOD QUANTITATIVE(Performed 06/07/2022) * CBC W/O DIFFERENTIAL(Performed 06/07/2022) Performed for Abdominal pain, generalized * PT-INR(Performed 06/07/2022) Performed for Abdominal pain, generalized * TSH REFLEX FREE T4(Performed 06/07/2022) Performed for Abdominal pain, generalized * PHOSPHORUS BLOOD(Performed 06/07/2022) Performed for Abdominal pain, generalized * MAGNESIUM BLOOD(Performed 06/07/2022) Performed for Abdominal pain, generalized * COMPREHENSIVE METABOLIC PANEL(Performed 06/07/2022) Performed for Abdominal pain, generalized * CT ANGIO ABDOMEN PELVIS(Performed 06/06/2022) Performed for Nausea and vomiting, unspecified vomiting type, Anorexia nervosa (HCC) * CARDIAC EKG ORDER(Performed 06/06/2022) * LACTIC ACID BLOOD REFLEX TO REPEAT(Performed 06/06/2022) Performed for Abdominal pain, generalized * HYDROXYBUTYRATE BETA(Performed 06/06/2022) Performed for Abdominal pain, generalized * COMPREHENSIVE METABOLIC PANEL(Performed 06/06/2022) Performed for Abdominal pain, generalized * CBC W/O DIFFERENTIAL(Performed 06/06/2022) Performed for Abdominal pain, generalized * URINE MICROSCOPIC ONLY REFLEX TO CULTURE(Performed 06/05/2022) Performed for Abdominal pain, generalized * URINALYSIS REFLEX MICROSCOPIC REFLEX CULTURE(Performed 06/05/2022) Performed for Abdominal pain, generalized * US PELVIS W DOPPLER OVARIES(Performed 06/05/2022) Performed for Abdominal pain, generalized * EKG 12-LEAD(Performed 06/05/2022) Performed for Abdominal pain, generalized * PHOSPHORUS BLOOD(Performed 06/05/2022) * MAGNESIUM BLOOD(Performed 06/05/2022) * CBC W AUTO DIFFERENTIAL(Performed 06/05/2022) * XR CHEST 1VW PORTABLE(Performed 06/05/2022) Performed for Abdominal pain, generalized * MN INSERT INTRAUTERINE DEVICE(Performed 04/16/2022) Performed for Encounter for insertion of mirena IUD * HCG URINE QUALITATIVE - POCT (IP) SLH(Performed 04/16/2022) Performed for Encounter for insertion of mirena IUD * MAGNESIUM BLOOD(Performed 03/29/2022) * RENAL FUNCTION PANEL(Performed 03/29/2022) * MAGNESIUM BLOOD(Performed 03/28/2022) Performed for Hypokalemia * RENAL FUNCTION PANEL(Performed 03/28/2022) Performed for Hypokalemia * MAGNESIUM BLOOD(Performed 03/28/2022) Performed for Nausea and vomiting, unspecified vomiting type, Abdominal pain, generalized, Hypokalemia, Metabolic acidosis * RENAL FUNCTION PANEL(Performed 03/28/2022) Performed for Nausea and vomiting, unspecified vomiting type, Abdominal pain, generalized, Hypokalemia, Metabolic acidosis * RENAL FUNCTION PANEL(Performed 03/27/2022) Performed for Hypokalemia, Metabolic acidosis * URINE DRUG SCREEN IMMUNOASSAY(Performed 03/26/2022) Performed for Nausea and vomiting, unspecified vomiting type, Abdominal pain, generalized * CT ABDOMEN PELVIS W CONTRAST(Performed 03/26/2022) Performed for Nausea and vomiting, unspecified vomiting type, Abdominal pain, generalized * EKG 12-LEAD(Performed 03/26/2022) Performed for Abdominal pain, generalized * MAGNESIUM BLOOD(Performed 03/26/2022) Performed for Hypokalemia * RENAL FUNCTION PANEL(Performed 03/26/2022) Performed for Hypokalemia * URINE MICROSCOPIC ONLY REFLEX TO CULTURE(Performed 03/26/2022) * URINALYSIS REFLEX MICROSCOPIC REFLEX CULTURE(Performed 03/26/2022) * CULTURE URINE(Performed 03/26/2022) * XR ABDOMEN KUB(Performed 03/25/2022) Performed for Nausea and vomiting, unspecified vomiting type * HCG BETA BLOOD QUANTITATIVE(Performed 03/25/2022) * LIPASE BLOOD(Performed 03/25/2022) * COMPREHENSIVE METABOLIC PANEL(Performed 03/25/2022) * CBC W AUTO DIFFERENTIAL(Performed 03/25/2022) * CARDIAC RHYTHM STRIP ORDER(Performed 02/20/2022) * LIPID PROFILE(Performed 02/18/2022) * HEMOGLOBIN A1C(Performed 02/18/2022) * TSH REFLEX FREE T4(Performed 02/18/2022) * BASIC METABOLIC PANEL (CALCIUM TOTAL)(Performed 02/18/2022) * MAGNESIUM BLOOD(Performed 02/16/2022) Performed for Hypokalemia * RENAL FUNCTION PANEL(Performed 02/16/2022) Performed for Hypokalemia * BASIC METABOLIC PANEL (CALCIUM TOTAL)(Performed 02/15/2022) Performed for Hypokalemia * FERRITIN(Performed 02/15/2022) Performed for Microcytosis * IRON + TRANSFERRIN PANEL(Performed 02/15/2022) Performed for Microcytosis * CALCIUM IONIZED BLOOD(Performed 02/15/2022) Performed for Hypercalcemia * PTH INTACT W/O CALCIUM(Performed 02/15/2022) Performed for Hypercalcemia * HYDROXYBUTYRATE BETA(Performed 02/15/2022) Performed for High anion gap metabolic acidosis * CBC W AUTO DIFFERENTIAL(Performed 02/15/2022) Performed for Anorexia, High anion gap metabolic acidosis * COMPREHENSIVE METABOLIC PANEL(Performed 02/15/2022) Performed for Anorexia, High anion gap metabolic acidosis * MAGNESIUM BLOOD(Performed 02/15/2022) Performed for Anorexia, High anion gap metabolic acidosis * PHOSPHORUS BLOOD(Performed 02/15/2022) Performed for Anorexia, High anion gap metabolic acidosis * MAGNESIUM BLOOD(Performed 02/14/2022) * HCG BETA BLOOD QUANTITATIVE(Performed 02/14/2022) * LIPASE BLOOD(Performed 02/14/2022) * COMPREHENSIVE METABOLIC PANEL(Performed 02/14/2022) * CBC W AUTO DIFFERENTIAL(Performed 02/14/2022) * URINE MICROSCOPIC ONLY(Performed 02/14/2022) * URINALYSIS REFLEX TO MICROSCOPIC NO CULTURE(Performed 02/14/2022) * HCG BETA BLOOD QUANTITATIVE(Performed 02/14/2022) * LIPASE BLOOD(Performed 02/14/2022) * COMPREHENSIVE METABOLIC PANEL(Performed 02/14/2022) * CBC W AUTO DIFFERENTIAL(Performed 02/14/2022) * PORPHYRINS AND PORPHOBILINOGEN (PBG) URINE(Performed 01/25/2022) * MAGNESIUM BLOOD(Performed 01/25/2022) Performed for Electrolyte abnormality * RENAL FUNCTION PANEL(Performed 01/25/2022) Performed for Electrolyte abnormality * MAGNESIUM BLOOD(Performed 01/24/2022) Performed for Electrolyte abnormality * RENAL FUNCTION PANEL(Performed 01/24/2022) Performed for Electrolyte abnormality * HCG URINE QUALITATIVE - POCT (IP) INTERFACED(Performed 01/23/2022) * HCG URINE QUALITATIVE - POCT (IP) INTERFACED(Performed 01/23/2022) * TRICHOMONAS VAGINALIS AMPLIFIED PROBE(Performed 01/23/2022) * CHLAMYDIA + GC AMPLIFIED PROBE(Performed 01/23/2022) * HCG URINE QUAL POCT NOTIFICATION(Performed 01/23/2022) * AMYLASE BLOOD(Performed 01/23/2022) * URINE MICROSCOPIC ONLY REFLEX TO CULTURE(Performed 01/23/2022) * HEPATIC FUNCTION PANEL(Performed 01/23/2022) * URINE DRUG SCREEN IMMUNOASSAY(Performed 01/23/2022) * URINALYSIS REFLEX MICROSCOPIC REFLEX CULTURE(Performed 01/23/2022) * BASIC METABOLIC PANEL (CALCIUM TOTAL)(Performed 01/23/2022) * CBC W AUTO DIFFERENTIAL(Performed 01/23/2022) * CULTURE URINE(Performed 01/23/2022) * C. TRACHOMATIS + N. GONORRHOEAE + TRICH YAMIL(Performed 12/07/2021) Performed for Screen for STD (sexually transmitted disease) * TREPONEMA PALLIDUM POS REFLX RPR(Performed 12/07/2021) Performed for Screen for STD (sexually transmitted disease) * HEPATITIS B SURFACE ANTIGEN W RFLX CONFIRMATION(Performed 12/07/2021) Performed for Screen for STD (sexually transmitted disease) * HEPATITIS C AB W/RFLX TO HCV RNA QN PCR(Performed 12/07/2021) Performed for Screen for STD (sexually transmitted disease) * HIV-1 HIV-2 ANTIBODY + HIV P24 AG PANEL(Performed 12/07/2021) Performed for Screen for STD (sexually transmitted disease) * URINE DRUG SCREEN IMMUNOASSAY(Performed 10/30/2021) * URINALYSIS W/MICROSCOPIC NO CULTURE(Performed 10/30/2021) * EKG 15-LEAD(Performed 10/29/2021) Performed for Nausea and vomiting, intractability of vomiting not specified, unspecified vomiting type * XR ABD OBSTRUCTION SERIES 2VW(Performed 10/29/2021) Performed for Nausea and vomiting, intractability of vomiting not specified, unspecified vomiting type * HCG URINE QUALITATIVE - POCT (IP) INTERFACED(Performed 10/29/2021) * GGT(Performed 10/29/2021) * LIPASE BLOOD(Performed 10/29/2021) * COMPREHENSIVE METABOLIC PANEL(Performed 10/29/2021) * CBC W AUTO DIFFERENTIAL(Performed 10/29/2021) * HCG URINE QUAL POCT NOTIFICATION(Performed 10/29/2021) * COMPREHENSIVE METABOLIC PANEL(Performed 08/12/2021) * COMPREHENSIVE METABOLIC PANEL(Performed 08/12/2021) * XR ABDOMEN KUB(Performed 08/11/2021) Performed for Abdominal pain, generalized * BLOOD GAS+COOX+LYTES+METAB CAPILLARY POCT(Performed 08/11/2021) * GGT(Performed 08/11/2021) * COMPREHENSIVE METABOLIC PANEL(Performed 08/11/2021) * CHLAMYDIA + GC AMPLIFIED PROBE(Performed 08/10/2021) Performed for Abdominal pain, generalized * HIV-1 HIV-2 ANTIBODY + HIV P24 AG PANEL(Performed 08/10/2021) Performed for Abdominal pain, generalized * RPR W REFLEX TO TITER (MONITOR)(Performed 08/10/2021) Performed for Abdominal pain, generalized * PT-INR SLH(Performed 08/10/2021) Performed for Abdominal pain, generalized * SALICYLATE LEVEL BLOOD(Performed 08/10/2021) Performed for Abdominal pain, generalized * TRANSFERRIN(Performed 08/10/2021) * FERRITIN(Performed 08/10/2021) * IRON BLOOD(Performed 08/10/2021) * ALCOHOL ETHYL BLOOD(Performed 08/10/2021) Performed for Abdominal pain, generalized * DRUG SCREEN TOX COMPREHESIVE PANEL(Performed 08/10/2021) Performed for Abdominal pain, generalized * ACETAMINOPHEN LEVEL(Performed 08/10/2021) * URINE DRUG SCREEN IMMUNOASSAY(Performed 08/10/2021) * URINALYSIS W/MICROSCOPIC NO CULTURE(Performed 08/10/2021) * HCG URINE QUALITATIVE - POCT (IP) INTERFACED(Performed 08/10/2021) * DIFFERENTIAL MANUAL(Performed 08/10/2021) * C-REACTIVE PROTEIN(Performed 08/10/2021) * CBC W AUTO DIFFERENTIAL(Performed 08/10/2021) * LIPASE BLOOD(Performed 08/10/2021) * COMPREHENSIVE METABOLIC PANEL(Performed 08/10/2021) * SARS-COV-2 (COVID-19) FLU A/B RSV PCR RAPID(Performed 08/10/2021) * HCG URINE QUAL POCT NOTIFICATION(Performed 08/10/2021) * SARS-COV-2 (COVID-19) RAPID(Performed 06/27/2021) * URINALYSIS W/MICROSCOPIC NO CULTURE(Performed 06/27/2021) * CULTURE URINE(Performed 06/27/2021) * URINALYSIS - POCT (IP) BEAKER INTERFACE(Performed 05/08/2021) * URINALYSIS - POCT (IP) NOTIFICATION(Performed 05/08/2021) 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 TRACHOMATIS + N. 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) * EKG 15-LEAD(Performed 02/01/2021) 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) * SARS-COV-2 (COVID-19) IN HOUSE(Performed 02/01/2021) 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) * SARS-COV2 (COVID-19) PANEL (STL)(Performed 02/01/2021) 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) * MN INSERT INTRAUTERINE DEVICE(Performed 01/19/2021) Performed for Encounter for insertion of intrauterine contraceptive device * HCG URINE QUALITATIVE - POINT OF CARE (AMB)(Performed 01/19/2021) Performed for Encounter for insertion of intrauterine contraceptive device * BASIC METABOLIC PANEL (CALCIUM TOTAL)(Performed 01/07/2021) * BASIC METABOLIC PANEL (CALCIUM TOTAL)(Performed 01/06/2021) * COMPREHENSIVE METABOLIC PANEL(Performed 01/05/2021) Performed for Dehydration * TRICHOMONAS VAGINALIS AMPLIFIED PROBE(Performed 01/04/2021) Performed for Sexually active teen * URINE DRUG SCREEN IMMUNOASSAY(Performed 01/04/2021) Performed for Nausea and vomiting, intractability of vomiting not specified, unspecified vomiting type * HIV-1 HIV-2 ANTIBODY + HIV P24 AG PANEL(Performed 01/04/2021) Performed for Sexually active teen * SYPHILIS ANTIBODY CASCADING REFLEX(Performed 01/04/2021) Performed for Sexually active teen * HCG URINE QUALITATIVE - POCT (IP) INTERFACED(Performed 01/03/2021) * SARS-COV-2 (COVID-19) IN HOUSE(Performed 01/03/2021) * CHLAMYDIA + GC AMPLIFIED PROBE(Performed 01/03/2021) * URINALYSIS W/MICROSCOPIC REFLEX TO CULTURE(Performed 01/03/2021) * C-REACTIVE PROTEIN(Performed 01/03/2021) * ERYTHROCYTE SEDIMENTATION RATE(Performed 01/03/2021) * LIPASE BLOOD(Performed 01/03/2021) * COMPREHENSIVE METABOLIC PANEL(Performed 01/03/2021) * CBC W AUTO DIFFERENTIAL(Performed 01/03/2021) * HCG URINE QUAL POCT NOTIFICATION(Performed 01/03/2021) * HCG URINE QUALITATIVE - POCT (IP) INTERFACED(Performed 11/07/2020) * TRICHOMONAS VAGINALIS AMPLIFIED PROBE(Performed 11/07/2020) Performed for Sexually active teen * CHLAMYDIA + GC AMPLIFIED PROBE(Performed 11/07/2020) Performed for Sexually active teen * URINALYSIS - POCT (IP) BEAKER INTERFACE(Performed 11/07/2020) * URINALYSIS - POCT (IP) BEAKER INTERFACE(Performed 09/26/2020) * C. TRACHOMATIS + N. 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) * URINALYSIS - POCT (IP) BEAKER INTERFACE(Performed 08/08/2020) * HCG URINE QUALITATIVE - POCT (IP) INTERFACED(Performed 07/25/2020) * COMPREHENSIVE METABOLIC PANEL(Performed 07/25/2020) * HCG URINE QUAL POCT NOTIFICATION(Performed 07/25/2020) * HCG URINE QUAL POCT NOTIFICATION(Performed 07/25/2020) Performed for Sexually active teen * CHLAMYDIA + GC AMPLIFIED PROBE(Performed 07/25/2020) Performed for Sexually active teen * HCG URINE QUALITATIVE - POCT (IP) INTERFACED(Performed 07/25/2020) * HCG URINE QUAL POCT NOTIFICATION(Performed 05/16/2020) Performed for Anorexia nervosa, restricting type (HCC) * URINALYSIS - POCT (IP) NOTIFICATION(Performed 05/16/2020) Performed for Anorexia nervosa, restricting type (HCC) * TRICHOMONAS VAGINALIS AMPLIFIED PROBE(Performed 05/16/2020) Performed for Anorexia nervosa, restricting type (HCC) * CHLAMYDIA + GC AMPLIFIED PROBE(Performed 05/16/2020) Performed for Anorexia nervosa, restricting type (HCC) * HCG URINE QUALITATIVE - POCT (IP) INTERFACED(Performed 05/16/2020) * URINALYSIS - POCT (IP) BEAKER INTERFACE(Performed 05/16/2020) * URINALYSIS - POCT (IP) NOTIFICATION(Performed 04/25/2020) 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) * SPECIFIC GRAVITY URINE(Performed 04/08/2020) * SPECIFIC GRAVITY URINE(Performed 04/07/2020) * PHOSPHORUS BLOOD(Performed 04/06/2020) * SPECIFIC GRAVITY URINE(Performed 04/06/2020) * MAGNESIUM BLOOD(Performed 04/05/2020) * BASIC METABOLIC PANEL (CALCIUM TOTAL)(Performed 04/05/2020) * PHOSPHORUS BLOOD(Performed 04/05/2020) * SPECIFIC GRAVITY URINE(Performed 04/05/2020) * SPECIFIC GRAVITY URINE(Performed 04/04/2020) * SPECIFIC GRAVITY URINE(Performed 04/03/2020) * SPECIFIC GRAVITY URINE(Performed 04/02/2020) * SPECIFIC GRAVITY URINE(Performed 04/01/2020) * TRIGLYCERIDES BLOOD(Performed 03/31/2020) * PHOSPHORUS BLOOD(Performed 03/31/2020) * MAGNESIUM BLOOD(Performed 03/31/2020) * COMPREHENSIVE METABOLIC PANEL(Performed 03/31/2020) * SPECIFIC GRAVITY URINE(Performed 03/31/2020) * SPECIFIC GRAVITY URINE(Performed 03/30/2020) * TRIGLYCERIDES BLOOD(Performed 03/29/2020) * PHOSPHORUS BLOOD(Performed 03/29/2020) * MAGNESIUM BLOOD(Performed 03/29/2020) * COMPREHENSIVE METABOLIC PANEL(Performed 03/29/2020) * SPECIFIC GRAVITY URINE(Performed 03/29/2020) * COMPREHENSIVE METABOLIC PANEL(Performed 03/28/2020) * TRIGLYCERIDES BLOOD(Performed 03/28/2020) * PHOSPHORUS BLOOD(Performed 03/28/2020) * MAGNESIUM BLOOD(Performed 03/28/2020) * SPECIFIC GRAVITY URINE(Performed 03/28/2020) * SPECIFIC GRAVITY URINE(Performed 03/27/2020) * SPECIFIC GRAVITY URINE(Performed 03/26/2020) * SPECIFIC GRAVITY URINE(Performed 03/25/2020) * TRIGLYCERIDES BLOOD(Performed 03/24/2020) * PHOSPHORUS BLOOD(Performed 03/24/2020) * MAGNESIUM BLOOD(Performed 03/24/2020) * COMPREHENSIVE METABOLIC PANEL(Performed 03/24/2020) * SPECIFIC GRAVITY URINE(Performed 03/24/2020) * SPECIFIC GRAVITY URINE(Performed 03/23/2020) * TRIGLYCERIDES BLOOD(Performed 03/22/2020) * PHOSPHORUS BLOOD(Performed 03/22/2020) * MAGNESIUM BLOOD(Performed 03/22/2020) * COMPREHENSIVE METABOLIC PANEL(Performed 03/22/2020) * XR ABDOMEN KUB(Performed 03/22/2020) 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), Severe protein- calorie malnutrition (HCC) * XR ABDOMEN KUB(Performed 03/22/2020) 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), Severe protein- calorie malnutrition (HCC) * SPECIFIC GRAVITY URINE(Performed 03/22/2020) * ECHO CONSULT - PEDIATRIC(Performed 03/21/2020) Performed for Severe protein-calorie malnutrition (HCC) * SPECIFIC GRAVITY URINE(Performed 03/21/2020) * TRIGLYCERIDES BLOOD(Performed 03/20/2020) * PHOSPHORUS BLOOD(Performed 03/20/2020) * MAGNESIUM BLOOD(Performed 03/20/2020) * COMPREHENSIVE METABOLIC PANEL(Performed 03/20/2020) * SPECIFIC GRAVITY URINE(Performed 03/20/2020) * XR ABDOMEN KUB(Performed 03/19/2020) 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) * SPECIFIC GRAVITY URINE(Performed 03/19/2020) * EKG 15-LEAD(Performed 03/19/2020) * SPECIFIC GRAVITY URINE(Performed 03/18/2020) * TRIGLYCERIDES BLOOD(Performed 03/17/2020) * PHOSPHORUS BLOOD(Performed 03/17/2020) * MAGNESIUM BLOOD(Performed 03/17/2020) * COMPREHENSIVE METABOLIC PANEL(Performed 03/17/2020) * SPECIFIC GRAVITY URINE(Performed 03/17/2020) * T4 FREE(Performed 03/15/2020) * TSH(Performed 03/15/2020) * TRIGLYCERIDES BLOOD(Performed 03/15/2020) * PHOSPHORUS BLOOD(Performed 03/15/2020) * MAGNESIUM BLOOD(Performed 03/15/2020) * COMPREHENSIVE METABOLIC PANEL(Performed 03/15/2020) * TRIGLYCERIDES BLOOD(Performed 03/13/2020) * PHOSPHORUS BLOOD(Performed 03/13/2020) * MAGNESIUM BLOOD(Performed 03/13/2020) * COMPREHENSIVE METABOLIC PANEL(Performed 03/13/2020) * MRI BRAIN WO CONTRAST(Performed 03/11/2020) Performed for Intractable vomiting with nausea, unspecified vomiting type * FL ORAL [place] OR D TUBE PLACEMENT(Performed 03/11/2020) 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) * TRIGLYCERIDES BLOOD(Performed 03/10/2020) * PHOSPHORUS BLOOD(Performed 03/10/2020) * MAGNESIUM BLOOD(Performed 03/10/2020) * COMPREHENSIVE METABOLIC PANEL(Performed 03/10/2020) * SARS-COV-2 (COVID-19)+INFLU A+B PCR RAPID(Performed 03/09/2020) * EKG 15-LEAD(Performed 03/09/2020) * FL UGI SERIES(Performed 03/09/2020) Performed for SMAS (superior mesenteric artery syndrome) (HCC) * CARDIAC RHYTHM STRIP ORDER(Performed 03/08/2020) * TRIGLYCERIDES BLOOD(Performed 03/08/2020) * PHOSPHORUS BLOOD(Performed 03/08/2020) * MAGNESIUM BLOOD(Performed 03/08/2020) * COMPREHENSIVE METABOLIC PANEL(Performed 03/08/2020) * TRIGLYCERIDES BLOOD(Performed 03/06/2020) * PHOSPHORUS BLOOD(Performed 03/06/2020) * MAGNESIUM BLOOD(Performed 03/06/2020) * COMPREHENSIVE METABOLIC PANEL(Performed 03/06/2020) * TRIGLYCERIDES BLOOD(Performed 03/03/2020) * PHOSPHORUS BLOOD(Performed 03/03/2020) * MAGNESIUM BLOOD(Performed 03/03/2020) * COMPREHENSIVE METABOLIC PANEL(Performed 03/03/2020) * FL ORAL [place] OR D TUBE PLACEMENT(Performed 03/02/2020) 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), SMAS (superior mesenteric artery syndrome) (HCC) * COMPREHENSIVE METABOLIC PANEL(Performed 03/01/2020) * TRIGLYCERIDES BLOOD(Performed 03/01/2020) * PHOSPHORUS BLOOD(Performed 03/01/2020) * MAGNESIUM BLOOD(Performed 03/01/2020) * PHOSPHORUS BLOOD(Performed 02/29/2020) * MAGNESIUM BLOOD(Performed 02/29/2020) * TRIGLYCERIDES BLOOD(Performed 02/29/2020) * COMPREHENSIVE METABOLIC PANEL(Performed 02/29/2020) * CT ANGIO ABDOMEN(Performed 02/29/2020) Performed for SMAS (superior mesenteric artery syndrome) (HCC) * TRIGLYCERIDES BLOOD(Performed 02/28/2020) * PHOSPHORUS BLOOD(Performed 02/28/2020) * MAGNESIUM BLOOD(Performed 02/28/2020) * COMPREHENSIVE METABOLIC PANEL(Performed 02/28/2020) * IRON + TRANSFERRIN PANEL(Performed 02/27/2020) * EKG 15-LEAD(Performed 02/27/2020) * PHOSPHORUS BLOOD(Performed 02/25/2020) * MAGNESIUM BLOOD(Performed 02/25/2020) * BASIC METABOLIC PANEL (CALCIUM TOTAL)(Performed 02/25/2020) * COMPREHENSIVE METABOLIC PANEL(Performed 02/25/2020) * TRIGLYCERIDES BLOOD(Performed 02/25/2020) * PHOSPHORUS BLOOD(Performed 02/25/2020) * MAGNESIUM BLOOD(Performed 02/25/2020) * IRON + TRANSFERRIN PANEL(Performed 02/25/2020) * XR ABDOMEN KUB(Performed 02/25/2020) Performed for Abdominal pain, unspecified abdominal location * VITAMIN D 25-HYDROXY(Performed 02/23/2020) * COMPREHENSIVE METABOLIC PANEL(Performed 02/23/2020) * TRIGLYCERIDES BLOOD(Performed 02/23/2020) * PHOSPHORUS BLOOD(Performed 02/23/2020) * MAGNESIUM BLOOD(Performed 02/23/2020) * COMPREHENSIVE METABOLIC PANEL(Performed 02/21/2020) * TRIGLYCERIDES BLOOD(Performed 02/21/2020) * PHOSPHORUS BLOOD(Performed 02/21/2020) * MAGNESIUM BLOOD(Performed 02/21/2020) * CATECHOLAMINES URINE FRACTIONATED TIMED(Performed 02/20/2020) * METANEPHRINES FRACTIONATED URINE TIMED(Performed 02/20/2020) * TRIGLYCERIDES BLOOD(Performed 02/19/2020) * PHOSPHORUS BLOOD(Performed 02/19/2020) * MAGNESIUM BLOOD(Performed 02/19/2020) * COMPREHENSIVE METABOLIC PANEL(Performed 02/19/2020) * EKG 15-LEAD(Performed 02/19/2020) * COMPREHENSIVE METABOLIC PANEL(Performed 02/18/2020) * TRIGLYCERIDES BLOOD(Performed 02/18/2020) * PHOSPHORUS BLOOD(Performed 02/18/2020) * MAGNESIUM BLOOD(Performed 02/18/2020) * THYROID STIMULATING IMMUNOGLOBULIN (TSI)(Performed 02/17/2020) * THYROID AB PANEL (TPO AB+THYROGLOB AB)(Performed 02/17/2020) * T3 TOTAL(Performed 02/17/2020) * T4 FREE(Performed 02/17/2020) * TSH(Performed 02/17/2020) * BASIC METABOLIC PANEL (CALCIUM TOTAL)(Performed 02/17/2020) * PHOSPHORUS BLOOD(Performed 02/17/2020) * MAGNESIUM BLOOD(Performed 02/17/2020) * URINALYSIS W/MICROSCOPIC NO CULTURE(Performed 02/16/2020) * CULTURE URINE(Performed 02/16/2020) * COMPREHENSIVE METABOLIC PANEL(Performed 02/16/2020) * TRIGLYCERIDES BLOOD(Performed 02/16/2020) * PHOSPHORUS BLOOD(Performed 02/16/2020) * MAGNESIUM BLOOD(Performed 02/16/2020) * COMPREHENSIVE METABOLIC PANEL(Performed 02/15/2020) * TRIGLYCERIDES BLOOD(Performed 02/15/2020) * PHOSPHORUS BLOOD(Performed 02/15/2020) * MAGNESIUM BLOOD(Performed 02/15/2020) * COMPREHENSIVE METABOLIC PANEL(Performed 02/14/2020) * TRIGLYCERIDES BLOOD(Performed 02/14/2020) * PHOSPHORUS BLOOD(Performed 02/14/2020) * MAGNESIUM BLOOD(Performed 02/14/2020) * COMPREHENSIVE METABOLIC PANEL(Performed 02/13/2020) * COMPREHENSIVE METABOLIC PANEL(Performed 02/13/2020) * TRIGLYCERIDES BLOOD(Performed 02/13/2020) * PHOSPHORUS BLOOD(Performed 02/13/2020) * MAGNESIUM BLOOD(Performed 02/13/2020) * CALPROTECTIN FECAL(Performed 02/12/2020) * DIFFERENTIAL MANUAL(Performed 02/12/2020) * CBC W AUTO DIFFERENTIAL(Performed 02/12/2020) * COMPREHENSIVE METABOLIC PANEL(Performed 02/12/2020) * TRIGLYCERIDES BLOOD(Performed 02/12/2020) * PHOSPHORUS BLOOD(Performed 02/12/2020) * MAGNESIUM BLOOD(Performed 02/12/2020) * XR ABDOMEN KUB(Performed 02/12/2020) Performed for Intractable vomiting, presence of nausea not specified, unspecified vomiting type * CALCIUM IONIZED BLOOD(Performed 02/11/2020) * COMPREHENSIVE METABOLIC PANEL(Performed 02/11/2020) * TRIGLYCERIDES BLOOD(Performed 02/11/2020) * PHOSPHORUS BLOOD(Performed 02/11/2020) * MAGNESIUM BLOOD(Performed 02/11/2020) * US RETROPERITONEAL COMP W DOPPL(Performed 02/10/2020) 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) * TRIGLYCERIDES BLOOD(Performed 02/10/2020) * BASIC METABOLIC PANEL (CALCIUM TOTAL)(Performed 02/10/2020) * PHOSPHORUS BLOOD(Performed 02/10/2020) * MAGNESIUM BLOOD(Performed 02/10/2020) * EKG 15-LEAD(Performed 02/09/2020) * XR CHEST POST PROCEDURE(Performed 02/09/2020) 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), Severe protein- calorie malnutrition (HCC), Anxiety and depression * ECHO CONSULT - PEDIATRIC(Performed 02/09/2020) * ALBUMIN BLOOD(Performed 02/09/2020) * TRIGLYCERIDES BLOOD(Performed 02/09/2020) * BASIC METABOLIC PANEL (CALCIUM TOTAL)(Performed 02/09/2020) * PHOSPHORUS BLOOD(Performed 02/09/2020) * MAGNESIUM BLOOD(Performed 02/09/2020) * BASIC METABOLIC PANEL (CALCIUM TOTAL)(Performed 02/08/2020) * PHOSPHORUS BLOOD(Performed 02/08/2020) * MAGNESIUM BLOOD(Performed 02/08/2020) * TRIGLYCERIDES BLOOD(Performed 02/07/2020) * BASIC METABOLIC PANEL (CALCIUM TOTAL)(Performed 02/07/2020) * PHOSPHORUS BLOOD(Performed 02/07/2020) * MAGNESIUM BLOOD(Performed 02/07/2020) * RESPIRATORY PANEL WITH SARS-COV-2 BY PCR (STL)(Performed 02/07/2020) * XR ABD OBSTRUCTION SERIES 2VW(Performed 02/07/2020) Performed for Intractable vomiting, presence of nausea not specified, unspecified vomiting type * TRIGLYCERIDES BLOOD(Performed 02/06/2020) * PHOSPHORUS BLOOD(Performed 02/06/2020) * MAGNESIUM BLOOD(Performed 02/06/2020) * COMPREHENSIVE METABOLIC PANEL(Performed 02/06/2020) * SPECIFIC GRAVITY URINE(Performed 02/06/2020) * TRIGLYCERIDES BLOOD(Performed 02/05/2020) * MAGNESIUM BLOOD(Performed 02/05/2020) * PHOSPHORUS BLOOD(Performed 02/05/2020) * COMPREHENSIVE METABOLIC PANEL(Performed 02/05/2020) * SPECIFIC GRAVITY URINE(Performed 02/05/2020) * TRIGLYCERIDES BLOOD(Performed 02/04/2020) * COMPREHENSIVE METABOLIC PANEL(Performed 02/04/2020) * PHOSPHORUS BLOOD(Performed 02/04/2020) * MAGNESIUM BLOOD(Performed 02/04/2020) * SPECIFIC GRAVITY URINE(Performed 02/04/2020) * FL ORAL [place] OR D TUBE PLACEMENT(Performed 02/03/2020) Performed for Severe protein-calorie malnutrition (HCC) * TRIGLYCERIDES BLOOD(Performed 02/03/2020) * COMPREHENSIVE METABOLIC PANEL(Performed 02/03/2020) * PHOSPHORUS BLOOD(Performed 02/03/2020) * MAGNESIUM BLOOD(Performed 02/03/2020) * SPECIFIC GRAVITY URINE(Performed 02/03/2020) * PHOSPHORUS BLOOD(Performed 02/02/2020) * MAGNESIUM BLOOD(Performed 02/02/2020) * BASIC METABOLIC PANEL (CALCIUM TOTAL)(Performed 02/02/2020) * SPECIFIC GRAVITY URINE(Performed 02/02/2020) * URINALYSIS W/MICROSCOPIC NO CULTURE(Performed 02/01/2020) * SPECIFIC GRAVITY URINE(Performed 02/01/2020) * PHOSPHORUS BLOOD(Performed 02/01/2020) * MAGNESIUM BLOOD(Performed 02/01/2020) * BASIC METABOLIC PANEL (CALCIUM TOTAL)(Performed 02/01/2020) * SPECIFIC GRAVITY URINE(Performed 01/31/2020) * PHOSPHORUS BLOOD(Performed 01/31/2020) * MAGNESIUM BLOOD(Performed 01/31/2020) * BASIC METABOLIC PANEL (CALCIUM TOTAL)(Performed 01/31/2020) * XR ABD OBSTRUCTION SERIES 2VW(Performed 01/30/2020) Performed for Intractable vomiting, presence of nausea not specified, unspecified vomiting type * FERRITIN(Performed 01/30/2020) * CBC W/O DIFFERENTIAL(Performed 01/30/2020) * PHOSPHORUS BLOOD(Performed 01/30/2020) * MAGNESIUM BLOOD(Performed 01/30/2020) * BASIC METABOLIC PANEL (CALCIUM TOTAL)(Performed 01/30/2020) * SPECIFIC GRAVITY URINE(Performed 01/30/2020) * XR ABDOMEN KUB(Performed 01/29/2020) 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) * SPECIFIC GRAVITY URINE(Performed 01/29/2020) * CT ANGIO ABDOMEN(Performed 01/28/2020) Performed for Abdominal pain, unspecified abdominal location, Avoidant- restrictive food intake disorder (ARFID) * SPECIFIC GRAVITY URINE(Performed 01/28/2020) * PHOSPHORUS BLOOD(Performed 01/28/2020) * MAGNESIUM BLOOD(Performed 01/28/2020) * BASIC METABOLIC PANEL (CALCIUM TOTAL)(Performed 01/28/2020) * SPECIFIC GRAVITY URINE(Performed 01/27/2020) * PHOSPHORUS BLOOD(Performed 01/26/2020) * MAGNESIUM BLOOD(Performed 01/26/2020) * BASIC METABOLIC PANEL (CALCIUM TOTAL)(Performed 01/26/2020) * SPECIFIC GRAVITY URINE(Performed 01/26/2020) * XR ABDOMEN KUB(Performed 01/25/2020) 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) * XR ABDOMEN KUB(Performed 01/25/2020) 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) * BASIC METABOLIC PANEL (CALCIUM TOTAL)(Performed 01/25/2020) * PHOSPHORUS BLOOD(Performed 01/25/2020) * MAGNESIUM BLOOD(Performed 01/25/2020) * SPECIFIC GRAVITY URINE(Performed 01/25/2020) * BASIC METABOLIC PANEL (CALCIUM TOTAL)(Performed 01/24/2020) * PHOSPHORUS BLOOD(Performed 01/24/2020) * MAGNESIUM BLOOD(Performed 01/24/2020) * SPECIFIC GRAVITY URINE(Performed 01/24/2020) * PHOSPHORUS BLOOD(Performed 01/23/2020) * MAGNESIUM BLOOD(Performed 01/23/2020) * BASIC METABOLIC PANEL (CALCIUM TOTAL)(Performed 01/23/2020) * SPECIFIC GRAVITY URINE(Performed 01/23/2020) * SPECIFIC GRAVITY URINE(Performed 01/22/2020) * BASIC METABOLIC PANEL (CALCIUM TOTAL)(Performed 01/22/2020) * PHOSPHORUS BLOOD(Performed 01/22/2020) * MAGNESIUM BLOOD(Performed 01/22/2020) * BASIC METABOLIC PANEL (CALCIUM TOTAL)(Performed 01/21/2020) * PHOSPHORUS BLOOD(Performed 01/21/2020) * MAGNESIUM BLOOD(Performed 01/21/2020) * SPECIFIC GRAVITY URINE(Performed 01/21/2020) * BASIC METABOLIC PANEL (CALCIUM TOTAL)(Performed 01/20/2020) * PHOSPHORUS BLOOD(Performed 01/20/2020) * MAGNESIUM BLOOD(Performed 01/20/2020) * SPECIFIC GRAVITY URINE(Performed 01/20/2020) * SPECIFIC GRAVITY URINE(Performed 01/19/2020) * BASIC METABOLIC PANEL (CALCIUM TOTAL)(Performed 01/19/2020) * PHOSPHORUS BLOOD(Performed 01/19/2020) * MAGNESIUM BLOOD(Performed 01/19/2020) * BASIC METABOLIC PANEL (CALCIUM TOTAL)(Performed 01/18/2020) * PHOSPHORUS BLOOD(Performed 01/18/2020) * MAGNESIUM BLOOD(Performed 01/18/2020) * SPECIFIC GRAVITY URINE(Performed 01/18/2020) * BASIC METABOLIC PANEL (CALCIUM TOTAL)(Performed 01/17/2020) * PHOSPHORUS BLOOD(Performed 01/17/2020) * MAGNESIUM BLOOD(Performed 01/17/2020) * SPECIFIC GRAVITY URINE(Performed 01/17/2020) * SPECIFIC GRAVITY URINE(Performed 01/16/2020) * BASIC METABOLIC PANEL (CALCIUM TOTAL)(Performed 01/16/2020) * PHOSPHORUS BLOOD(Performed 01/16/2020) * MAGNESIUM BLOOD(Performed 01/16/2020) * SPECIFIC GRAVITY URINE(Performed 01/15/2020) * BASIC METABOLIC PANEL (CALCIUM TOTAL)(Performed 01/15/2020) * PHOSPHORUS BLOOD(Performed 01/15/2020) * MAGNESIUM BLOOD(Performed 01/15/2020) * SPECIFIC GRAVITY URINE(Performed 01/14/2020) * ESTRADIOL(Performed 01/14/2020) * BASIC METABOLIC PANEL (CALCIUM TOTAL)(Performed 01/14/2020) * PHOSPHORUS BLOOD(Performed 01/14/2020) * MAGNESIUM BLOOD(Performed 01/14/2020) * BASIC METABOLIC PANEL (CALCIUM TOTAL)(Performed 01/14/2020) * PHOSPHORUS BLOOD(Performed 01/14/2020) * MAGNESIUM BLOOD(Performed 01/14/2020) * SPECIFIC GRAVITY URINE(Performed 01/13/2020) * VITAMIN D 25-HYDROXY(Performed 01/12/2020) * BASIC METABOLIC PANEL (CALCIUM TOTAL)(Performed 01/12/2020) * PHOSPHORUS BLOOD(Performed 01/12/2020) * MAGNESIUM BLOOD(Performed 01/12/2020) * CHLAMYDIA + GC AMPLIFIED PROBE(Performed 01/11/2020) * TRICHOMONAS VAGINALIS AMPLIFIED PROBE(Performed 01/11/2020) * C-REACTIVE PROTEIN(Performed 01/11/2020) * CBC W AUTO DIFFERENTIAL(Performed 01/11/2020) * PHOSPHORUS BLOOD(Performed 01/11/2020) * MAGNESIUM BLOOD(Performed 01/11/2020) * COMPREHENSIVE METABOLIC PANEL(Performed 01/11/2020) * PHOSPHORUS BLOOD(Performed 01/10/2020) * GGT(Performed 01/10/2020) * MAGNESIUM BLOOD(Performed 01/10/2020) * COMPREHENSIVE METABOLIC PANEL(Performed 01/10/2020) * EKG 15-LEAD(Performed 01/07/2020) * DIFFERENTIAL MANUAL(Performed 01/06/2020) * VITAMIN D 1,25 DIHYDROXY(Performed 01/06/2020) * IRON + TIBC PANEL(Performed 01/06/2020) * CBC W AUTO DIFFERENTIAL(Performed 01/06/2020) * HELICOBACTER PYLORI UREASE (STL)(Performed 01/05/2020) Performed for Lower abdominal pain * MN COLONOSCOPY,BIOPSY(Performed 01/05/2020) Performed for Weight loss, Abdominal pain, unspecified abdominal location * MN EGD FLEX TRANSORAL W BX SNGL OR MULT(Performed 01/05/2020) Performed for Weight loss, Abdominal pain, unspecified abdominal location * PATHOLOGY TISSUE EXAM (STL)(Performed 01/05/2020) Performed for Weight loss, Abdominal pain, unspecified abdominal location * HCG URINE QUALITATIVE(Performed 01/05/2020) * EGD(Performed 01/05/2020) Performed for Lower abdominal pain * ENDOSCOPY, COLON, DIAGNOSTIC(Performed 01/05/2020) Performed for Lower abdominal pain * XR ABDOMEN KUB(Performed 01/04/2020) Performed for Lower abdominal pain * SARS-COV-2 (COVID-19) IN HOUSE(Performed 01/04/2020) * CBC W/O DIFFERENTIAL(Performed 01/04/2020) * OCCULT BLOOD FECES(Performed 01/03/2020) * CULTURE STOOL+ E COLI SHIGA-LIKE TOXIN(Performed 01/03/2020) * DIFFERENTIAL MANUAL(Performed 01/03/2020) * CBC W AUTO DIFFERENTIAL(Performed 01/03/2020) * XR ABD OBSTRUCTION SERIES 2VW(Performed 01/02/2020) Performed for Lower abdominal pain * HCG URINE QUAL POCT NOTIFICATION(Performed 01/02/2020) * URINALYSIS W/MICROSCOPIC NO CULTURE(Performed 01/02/2020) * HCG URINE QUALITATIVE - POCT (IP) INTERFACED(Performed 01/02/2020) * US PELVIS W DOPPLER OVARIES(Performed 01/02/2020) Performed for Lower abdominal pain * US ABDOMEN LIMITED(Performed 01/02/2020) Performed for Lower abdominal pain * DIFFERENTIAL MANUAL(Performed 01/02/2020) * TISSUE TRANSGLUTAMINASE AB IGA(Performed 01/02/2020) * IGA BLOOD(Performed 01/02/2020) * ERYTHROCYTE SEDIMENTATION RATE(Performed 01/02/2020) * CBC W AUTO DIFFERENTIAL(Performed 01/02/2020) * T4 FREE(Performed 01/02/2020) * TSH(Performed 01/02/2020) * PHOSPHORUS BLOOD(Performed 01/02/2020) * MAGNESIUM BLOOD(Performed 01/02/2020) * COMPREHENSIVE METABOLIC PANEL(Performed 01/02/2020) * LIPASE BLOOD(Performed 01/02/2020) * C-REACTIVE PROTEIN(Performed 01/02/2020) * GLUCOSE - POINT OF CARE(Performed 01/02/2020) * TISSUE TRANSGLUTAMINASE AB IGA(Performed 06/05/2017) Performed for Abdominal pain, generalized * IGA BLOOD(Performed 06/05/2017) Performed for Abdominal pain, generalized * THYROID STIMULATING IMMUNOGLOBULIN (TSI)(Performed 06/05/2017) Performed for Abnormal thyroid blood test * THYROID AB PANEL (TPO AB+THYROGLOB AB)(Performed 06/05/2017) Performed for Abnormal thyroid blood test * C-REACTIVE PROTEIN(Performed 06/05/2017) Performed for Abdominal pain, generalized * ERYTHROCYTE SEDIMENTATION RATE(Performed 06/05/2017) Performed for Abdominal pain, generalized * T3 TOTAL(Performed 06/05/2017) Performed for Abnormal thyroid blood test * T4 FREE(Performed 06/05/2017) Performed for Abnormal thyroid blood test * TSH(Performed 06/05/2017) Performed for Abnormal thyroid blood test * T4 FREE(Performed 03/23/2017) * T3 FREE(Performed 03/23/2017) * TSH(Performed 03/23/2017) * COMPREHENSIVE METABOLIC PANEL(Performed 03/23/2017) * CBC W AUTO DIFFERENTIAL(Performed 03/23/2017) * URINE DRUG SCREEN IMMUNOASSAY(Performed 03/21/2017) * URINALYSIS REFLEX TO MICROSCOPIC NO CULTURE(Performed 03/21/2017) * HCG URINE QUALITATIVE - POCT (IP) BEAKER(Performed 03/21/2017) Results * HCG URINE QUALITATIVE - POINT OF CARE (AMB) (01/15/2024) Only the most recent of2 resultswithin the time period is included. HCG Qual Urine Negative Negative QC Verified Yes Yes Urine URINE / Unknown 01/15/2024 Marla Jurado MD LAB - POINT OF CARE ORDERABLES * (ABNORMAL) PAP CERVICAL CANCER SCREEN CT/NG/TV APT (11/29/2023 11:06 AM CDT) Age Gdln ACOG Testing 21-29 [facility] ACCOUNT BILL Comment: Performed at: 02 - [facility] [address] [facility], [place] [id number] Mimeographer: Meredith Gil MD, Phone: [phone] Performed at: - [facility] [address] [facility], [place] [id number] Mimeographer: Meredith Gil MD, Phone: [phone] Diagnosis Comment(A) [facility] ACCOUNT BILL Comment: EPITHELIAL [...] - 12/05/2023 5:09 PM CDT Performed at: - Lab[address] [id number] Mimeographer: Meredith Gil MD, Phone: [phone] Specimen Comment: [id number] Specimen Comment: Source.............Cervix Specimen Comment: No. of containers..01 ThinPrep Vial Marla Jurado MD LAB - PATHOLOGY/CYTO LOGY ORDERABLES Performing Organization Address City/[facility] Co de Phone Number [facility] ACCOUNT BILL [address] [place] [address] * HIV-1 HIV-2 ANTIBODY + HIV P24 AG PANEL (11/29/2023 10:55 AM CDT) Only the most recent of4 resultswithin the time period is included. Pathologist [facility] HIV Screen 4th Generation w Reflex Non Reactive Non Reactive [facility] ACCOUNT BILL Comment: HIV-1/HIV-2 antibodies and HIV-1 p24 antigen were NOT detected. There is no laboratory evidence of HIV infection. HIV Negative Blood BLOOD SPECIMEN / Unknown 11/29/2023 10:55 AM CDT 11/29/2023 Narrative [facility] ACCOUNT BILL - 11/30/2023 10:10 AM CDT Performed at: - [address] [id number] Mimeographer: Karlos Huffman PhD, Phone: [phone] Marla Jurado MD LAB - CHEMISTRY [place] Performing Organization Address City/[facility] Co de Phone Number [facility] ACCOUNT BILL [address] [place] [address] * TREPONEMA PALLIDUM POS REFLX RPR (11/29/2023 10:55 AM CDT) Only the most recent of2 resultswithin the time period is included. Pathologist [facility] T pallidum Antibody (TP-PA) Non Reactive Non Reactive [facility] ACCOUNT BILL Blood BLOOD SPECIMEN / Unknown 11/29/2023 10:55 AM CDT 11/29/2023 Narrative [facility] ACCOUNT BILL - 12/03/2023 12:07 AM CDT Performed at: 01 - [facility] [address] [id number] Mimeographer: Diana Simental MD, Phone: [phone] Marla Jurado MD LAB - SEROLOGY ORDER TRAY Performing Organization Address City/[facility] Co de Phone Number [facility] ACCOUNT BILL [address] [place] [address] * (ABNORMAL) LIPID PROFILE (10/07/2023 8:32 AM CDT) Only the most recent of3 resultswithin the time period is included. Cholesterol 286(H) <200 mg/dL [facility] ACCOUNT BILL Triglycerides 164(H) <150 mg/dL [facility] ACCOUNT BILL HDL Cholesterol 55 >40 mg/dL [facility] ACCOUNT BILL VLDL Calculated 33(H) <=30 mg/dL [facility] ACCOUNT BILL LDL Calculated 198(H) <130 mg/dL [facility] ACCOUNT BILL Blood BLOOD SPECIMEN / Unknown 10/07/2023 8:32 AM CDT 10/07/2023 Narrative Resulting Agency Comment Lab Testing performed at: [facility] [place] [address] [place] [id number] Ronel Thornton DO LAB - CHEMISTRY [place] Performing Organization Address [facility] Co de Phone Number [facility] ACCOUNT BILL [address] [place] [address] * LAMOTRIGINE LEVEL (05/21/2023 1:47 PM CDT) Lamotrigine 5.7 2.0 - 20.0 ug/mL [facility] ACCOUNT BILL Comment:Detection Limit = 1. 0 Blood BLOOD SPECIMEN / Unknown 05/21/2023 1:47 PM CDT 05/21/2023 Narrative Resulting Agency Comment Lab Testing performed at: [facility] [place] [id number] Vimal Cheng MD LAB - THERAPEUTIC DR SAEZ MONITORING ORDERABLES [facility] ACCOUNT [place] [address] * TSH REFLEX FREE T4 (04/25/2023 3:59 PM CDT) Only the most recent of4 resultswithin the time period is included. TSH 2.331 0.350 - 4.940 uIU/mL 04/25/2023 4:58 PM CDT [facility] Blood BLOOD SPECIMEN / Unknown Venipuncture / Unknown 04/25/2023 3:59 PM CDT 04/25/2023 4:14 PM CDT Sita Gandhi Yanira CONTROL SYSTEMS DRAFTING OFFICER-FURNACE INSTALLER LAB - CHEMISTRY ORDERABLES [facility] [address] [place] [address] * HEMOGLOBIN A1C (04/25/2023 3:59 PM CDT) Only the most recent of2 resultswithin the time period is included. Hemoglobin A1c 4.7 <5.7 % 04/25/2023 4:34 PM CDT [facility] Estimated Average Glucose 88 mg/dL 04/25/2023 4:34 PM CDT [facility] Blood BLOOD SPECIMEN / Unknown Venipuncture / Unknown 04/25/2023 3:59 PM CDT 04/25/2023 4:14 PM CDT Narrative [facility] - 04/25/2023 4:34 PM CDT HbA1c Interpretation: Normal: < 5.7% Pre-diabetes: 5.7-6.4% Diabetes: Equal to or greater than 6.5% Test results diagnostic of diabetes should be repeated for confirmation. Treatment target values recommended by ADA and other clinical organizations should be used to evaluate metabolic control in patients. This test should not replace glucose testing for patients with Type 1 diabetes, pediatric patients, or women. Falsely low HbA1c results may be observed in patients with clinical conditions that shorten erythrocyte life span or decrease mean erythrocyte age such as the presence of unstable hemoglobin variants, elevated hemoglobin F level or other causes of hemolytic anemia. HbA1c may not accurately reflect glycemic control when clinical conditions that affect erythrocyte survival are present. Severe Iron deficiency anemia may yield falsely high results. Hemoglobin A1c assay should not be used to diagnose or monitor diabetes in patients with malignancy, recent blood transfusion, chronic kidney or liver disease. This method may yield falsely low results when hemoglobin (HbF) exceeds 5% in the specimen. The Najera Alinity assay for the measurement of HbA1c is a National Glycohemoglobin Standardization Program (NGSP) certified method. Sita Doyle CONTROL SYSTEMS DRAFTING OFFICER-FURNACE INSTALLER LAB - CHEMISTRY ORDERABLES [facility] [address] [place] [address] * (ABNORMAL) CBC W AUTO DIFFERENTIAL (04/25/2023 3:59 PM CDT) Only the most recent of24 resultswithin the time period is included. [facility] WBC 6.8 4.0 - 10.7 x10E9/L 04/25/2023 4:19 PM CDT [facility] RBC Count 4.89 3.90 - 5.20 x10E12/L 04/25/2023 4:19 PM CDT [facility] Hemoglobin 13.1 11.9 - 15.8 g/dL 04/25/2023 4:19 PM CDT [facility] Hematocrit 40.7 34.8 - 46.1 % 04/25/2023 4:19 PM CDT [facility] MCV 83.2 80.0 - 98.0 fL 04/25/2023 4:19 PM CDT [facility] MCH 26.8 26.7 - 33.6 pg 04/25/2023 4:19 PM CDT [facility] MCHC 32.2 31.7 - 36.3 g/dL 04/25/2023 4:19 PM CDT [facility] RDW-CV 16.8(H) 11.3 - 14.8 % 04/25/2023 4:19 PM CDT [facility] Platelet Count 461(H) 150 - 420 x10E9/L 04/25/2023 4:19 PM CDT [facility] MPV 9.1 7.8 - 11.4 fL 04/25/2023 4:19 PM CDT [facility] Neutrophil % 45.7 41.0 - 74.0 % 04/25/2023 4:19 PM CDT [facility] Lymphocyte % 44.3 17.0 - 47.0 % 04/25/2023 4:19 PM CDT [facility] Monocyte % 9.3 3.0 - 11.0 % 04/25/2023 4:19 PM CDT [facility] Eosinophil % 0.0 0.0 - 7.0 % 04/25/2023 4:19 PM CDT [facility] Basophil % 0.6 0.0 - 1.6 % 04/25/2023 4:19 PM CDT [facility] Immature Granulocytes % 0.1 0.0 - 1.0 % 04/25/2023 4:19 PM CDT [facility] Neutrophil Absolute 3.09 1.60 - 7.50 x10E9/L 04/25/2023 4:19 PM CDT [facility] Lymphocyte Absolute 3.00 1.00 - 4.40 x10E9/L 04/25/2023 4:19 PM CDT [facility] Monocyte Absolute 0.63 0.15 - 1.00 x10E9/L 04/25/2023 4:19 PM CDT [facility] Eosinophil Absolute 0.00 0.00 - 0.60 x10E9/L 04/25/2023 4:19 PM CDT [facility] Basophil Absolute 0.04 0.00 - 0.13 x10E9/L 04/25/2023 4:19 PM CDT [facility] Blood BLOOD SPECIMEN / Unknown Venipuncture / Unknown 04/25/2023 3:59 PM CDT 04/25/2023 4:14 PM CDT Sita Doyle CONTROL SYSTEMS DRAFTING OFFICER-FURNACE INSTALLER LAB - HEMATOLOGY ORDERABLES [facility] [address] [place] [address] * (ABNORMAL) COMPREHENSIVE METABOLIC PANEL (04/25/2023 3:59 PM CDT) Only the most recent of66 resultswithin the time period is included. [facility] Glucose 85 70 - 105 mg/dL 04/25/2023 4:43 PM CDT [facility] Sodium 142 136 - 145 mmol/L 04/25/2023 4:43 PM CDT [facility] Potassium 4.1 3.5 - 5.1 mmol/L 04/25/2023 4:43 PM CDT [facility] Chloride 103 98 - 107 mmol/L 04/25/2023 4:43 PM CDT [facility] CO2 30(H) 22 - 29 mmol/L 04/25/2023 4:43 PM CDT [facility] Calcium 9.9 8.4 - 10.4 mg/dL 04/25/2023 4:43 PM CDT [facility] Anion Gap 9 6 - 16 mmol/L 04/25/2023 4:43 PM CDT [facility] BUN 12 5.3 - 18.7 mg/dL 04/25/2023 4:43 PM CDT [facility] Creatinine 1.04 0.57 - 1.11 mg/dL 04/25/2023 4:43 PM CDT [facility] Alkaline Phosphatase 94 40 - 150 U/L 04/25/2023 4:43 PM CDT [facility] ALT 15 0 - 55 U/L 04/25/2023 4:43 PM CDT [facility] AST 23 5 - 34 U/L 04/25/2023 4:43 PM CDT [facility] Protein Total 8.3 6.4 - 8.3 gm/dL 04/25/2023 4:43 PM CDT [facility] Albumin 4.3 3.4 - 5.0 gm/dL 04/25/2023 4:43 PM CDT [facility] Bilirubin Total 0.2 0.2 - 1.2 mg/dL 04/25/2023 4:43 PM CDT [facility] eGFR by CKD-EPI 79(L) >=90 mL/min/1.7 3 m2 04/25/2023 4:43 PM CDT [facility] Blood BLOOD SPECIMEN / Unknown Venipuncture / Unknown 04/25/2023 3:59 PM CDT 04/25/2023 4:14 PM CDT Sita Oksana Yanira CONTROL SYSTEMS DRAFTING OFFICER-FURNACE INSTALLER LAB - CHEMISTRY ORDERABLES [facility] [address] [place] [address] * CARDIAC RHYTHM STRIP ORDER (04/24/2023 10:42 PM CDT) Only the most recent of3 resultswithin the time period is included. Narrative 04/24/2023 10:42 PM CDT Ordered by an unspecified provider. Scanned Document CARDIAC SERVICES ORD ERABLES * (ABNORMAL) URINALYSIS REFLEX TO MICROSCOPIC NO CULTURE (04/23/2023 11:42 PM CDT) Only the most recent of4 resultswithin the time period is included. Color UA Yellow Straw, Yellow 04/24/2023 3:09 AM CDT [facility] Clarity UA Slt Cloudy(A) Clear 04/24/2023 3:09 AM CDT [facility] Glucose UA Negative Negative 04/24/2023 3:09 AM CDT [facility] Bilirubin UA Negative Negative 04/24/2023 3:09 AM CDT [facility] Ketone UA Negative Negative 04/24/2023 3:09 AM CDT [facility] Specific [place] UA 1.012 1.005 - 1.030 04/24/2023 3:09 AM CDT [facility] Blood UA Negative Negative 04/24/2023 3:09 AM CDT [facility] pH UA 5.0 5.0 - 8.0 pH 04/24/2023 3:09 AM CDT [facility] Protein UA Negative Negative 04/24/2023 3:09 AM CDT [facility] Urobilinogen UA Negative Negative mg/dL 04/24/2023 3:09 AM CDT [facility] Nitrite UA Negative Negative 04/24/2023 3:09 AM CDT [facility] Leukocyte UA 1+(A) Negative 04/24/2023 3:09 AM CDT [facility] Urine Microscopy Urine microscopy to follow 04/24/2023 3:09 AM CDT [facility] Urine URINE SPECIMEN OBTAINED BY CLEAN CATCH PROCEDURE / Unknown Collection / Unknown 04/23/2023 11:42 PM CDT 04/24/2023 2:43 AM CDT Narrative [facility] - 04/24/2023 3:09 AM CDT Sita Doyle CONTROL SYSTEMS DRAFTING OFFICER-FURNACE INSTALLER LAB - URINALYSIS ORDERABLES Performing Organization Address [facility] Co de Phone Number [facility] [address] [place] [address] * (ABNORMAL) URINE MICROSCOPIC ONLY (04/23/2023 11:42 PM CDT) Only the most recent of2 resultswithin the time period is included. RBC UA 0-2 0 - 5 # /hpf 04/24/2023 3:15 AM CDT [facility] WBC UA 11-20(A) 0 - 5 # /hpf 04/24/2023 3:15 AM CDT [facility] Bacteria UA 2+(A) None Seen 04/24/2023 3:15 AM CDT [facility] Squamous Epithelial Cells 6-10(A) 0 - 5 /hpf 04/24/2023 3:15 AM CDT [facility] Mucus UA 1+ /LPF 04/24/2023 3:15 AM CDT [facility] Urine URINE SPECIMEN OBTAINED BY CLEAN CATCH PROCEDURE / Unknown Collection / Unknown 04/23/2023 11:42 PM CDT 04/24/2023 2:43 AM CDT Narrative [facility] - 04/24/2023 3:15 AM CDT Sita Doyle CONTROL SYSTEMS DRAFTING OFFICER-FURNACE INSTALLER LAB - URINALYSIS ORDERABLES Performing Organization Address [facility] Co de Phone Number [facility] [address] [place] [address] * (ABNORMAL) URINE DRUG SCREEN IMMUNOASSAY (04/23/2023 11:42 PM CDT) Only the most recent of7 resultswithin the time period is included. Amphetamines Screen Urine Not detected Not detected 04/24/2023 3:35 AM CDT [facility] Barbiturates Screen Urine Not detected Not detected 04/24/2023 3:35 AM CDT [facility] Benzodiazepines Screen Urine Detected(A) Not detected 04/24/2023 3:35 AM CDT [facility] Cannabinoids Screen Urine Detected(A) Not detected 04/24/2023 3:35 AM CDT [facility] Cocaine Screen Urine Not detected Not detected 04/24/2023 3:35 AM CDT [facility] Fentanyl Urine Detected(A) Not detected 04/24/2023 3:35 AM CDT [facility] Methadone Screen Urine Not detected Not detected 04/24/2023 3:35 AM CDT [facility] Opiate Screen Urine Not detected Not detected 04/24/2023 3:35 AM CDT [facility] Phencyclidine Screen Urine Not detected Not detected 04/24/2023 3:35 AM CDT [facility] Urine URINE / Unknown Collection / Unknown 04/23/2023 11:42 PM CDT 04/24/2023 2:43 AM CDT Narrative [facility] - 04/24/2023 3:35 AM CDT This drug screen is designed for MEDICAL purposes only. It is not to be used for legal purposes, including but not limited to worker's comp, police investigations, occupational issues, child custody, etc. Any positive result is only presumptive and must be confirmed with a separate confirmatory test ordered by the physician. Drug Screening Test Cutoff Values: AMPHETAMINES 1000 ng/mL BARBITURATES 200 ng/mL BENZODIAZEPINES 200 ng/mL CANNABINOIDS(THC) 50 ng/mL COCAINE 300 ng/mL FENTANYL 1 ng/mL METHADONE 300 ng/mL OPIATES 300 ng/mL PHENCYCLIDINE(PCP) 25 ng/mL Sita Doyle CONTROL SYSTEMS DRAFTING OFFICER-FURNACE INSTALLER LAB - URINE CHEM ISTRY ORDERABLES [facility] [address] [place] [address] * (ABNORMAL) CBC W/O DIFFERENTIAL (04/23/2023 3:46 AM CDT) Only the most recent of14 resultswithin the time period is included. [facility] WBC 6.5 4.0 - 10.7 x10E9/L 04/23/2023 4:34 AM CDT [facility] RBC Count 4.73 3.90 - 5.20 x10E12/L 04/23/2023 4:34 AM CDT [facility] Hemoglobin 12.8 11.9 - 15.8 g/dL 04/23/2023 4:34 AM CDT [facility] Hematocrit 39.7 34.8 - 46.1 % 04/23/2023 4:34 AM CDT [facility] MCV 83.9 80.0 - 98.0 fL 04/23/2023 4:34 AM CDT [facility] MCH 27.1 26.7 - 33.6 pg 04/23/2023 4:34 AM CDT [facility] MCHC 32.2 31.7 - 36.3 g/dL 04/23/2023 4:34 AM CDT [facility] RDW-CV 17.4(H) 11.3 - 14.8 % 04/23/2023 4:34 AM CDT [facility] Platelet Count 358 150 - 420 x10E9/L 04/23/2023 4:34 AM CDT [facility] MPV 9.8 7.8 - 11.4 fL 04/23/2023 4:34 AM CDT [facility] Blood BLOOD SPECIMEN / Unknown Venipuncture / Unknown 04/23/2023 3:46 AM CDT 04/23/2023 4:29 AM CDT Mcaarena Wang Held CONTROL SYSTEMS DRAFTING OFFICER-FURNACE INSTALLER LAB - HEMATOLOGY OR DERABLES [facility] [address] [place] [address] * (ABNORMAL) BASIC METABOLIC PANEL (CALCIUM TOTAL) (04/23/2023 3:46 AM CDT) Only the most recent of37 resultswithin the time period is included. Glucose 91 70 - 105 mg/dL 04/23/2023 4:55 AM CDT [facility] Sodium 144 136 - 145 mmol/L 04/23/2023 4:55 AM CDT [facility] Potassium 4.2 3.5 - 5.1 mmol/L 04/23/2023 4:55 AM CDT [facility] Chloride 109(H) 98 - 107 mmol/L 04/23/2023 4:55 AM CDT [facility] CO2 24 22 - 29 mmol/L 04/23/2023 4:55 AM CDT [facility] Calcium 9.5 8.4 - 10.4 mg/dL 04/23/2023 4:55 AM CDT [facility] Anion Gap 11 6 - 16 mmol/L 04/23/2023 4:55 AM CDT [facility] BUN 13 5.3 - 18.7 mg/dL 04/23/2023 4:55 AM CDT [facility] Creatinine 0.99 0.57 - 1.11 mg/dL 04/23/2023 4:55 AM CDT [facility] eGFR by CKD-EPI 84(L) >=90 mL/min/1.7 3 m2 04/23/2023 4:55 AM CDT [facility] Blood BLOOD SPECIMEN / Unknown Venipuncture / Unknown 04/23/2023 3:46 AM CDT 04/23/2023 4:29 AM CDT Macarena Wang [facility] LAB - CHEMISTRY ORD ERABLES Performing Organization Address [facility] de Phone Number [facility] [id number] [place] [phone] * MAGNESIUM BLOOD (04/23/2023 3:46 AM CDT) Only the most recent of86 resultswithin the time period is included. Magnesium 2.0 1.6 - 2.6 mg/dL 04/23/2023 4:55 AM CDT [facility] Blood BLOOD SPECIMEN / Unknown Venipuncture / Unknown 04/23/2023 3:46 AM CDT 04/23/2023 4:29 AM CDT Macarena Wang [facility] LAB - CHEMISTRY ORD ERABLES Performing Organization Address [facility] de Phone Number [facility] [id number] [place] [id number] * HYDROXYINDOLACETIC ACID 5 URINE TIMED (04/23/2023 12:19 AM CDT) 5-HIAA 24 Hour Urine 2.6 Undefined mg/L 04/25/2023 6:09 PM CDT [facility] ([facility]) Comment: This test was developed and its performance characteristics determined by [facility]. It has not been cleared or approved by the Food and Drug Administration. 5-HIAA 24 Hour Urine 1.3 0.0 - 14.9 mg/24 hr 04/25/2023 6:09 PM CDT [facility] ([facility]) Urine TIMED URINE SPECIMEN / Unknown Timed Urine Volume Measurement / Unknown 04/23/2023 12:19 AM CDT 04/23/2023 12:29 AM CDT Narrative [facility] ([facility]) - 04/25/2023 6:09 PM CDT Performed at: [address] [id number] Mimeographer: Diana Simental MD, Phone: [phone] Patel Linares MD LAB - URINE MICROSTRATEGY ARCHITECT DEVELOPER RY ORDERABLES [facility] ([facility]) [address] [place] [address] * EKG 12-LEAD (04/22/2023 8:51 AM CDT) Only the most recent of5 resultswithin the time period is included. Pathologist [facility] Ventricular Rate 88 BPM [facility] Atrial Rate 88 BPM [facility] P-R Interval 122 ms [facility] QRS Duration ms 78 ms [facility] Q-T Interval ms 396 ms [facility] QTC Calculation (Bezet) 479 ms [facility] Calculated P [place] 77 degrees [facility] Calculated R [place] 82 degrees [facility] Calculated T [place] 89 degrees [facility] Interpretation EKG Normal sinus rhythm Nonspecific ST abnormality Abnormal ECG When compared with ECG of 21-APR-2023 16:42, Nonspecific T wave abnormality now evident in Lateral leads Confirmed by ADAN JOHNSON, YARON ([id number]) on 04/22/2023 10:49:43 AM [facility] MUSE 04/22/2023 8:51 AM CDT 04/22/2023 10:49 AM CDT Macarena Taylor CONTROL SYSTEMS DRAFTING OFFICER-FURNACE INSTALLER ECG ORDERABLES [facility] * (ABNORMAL) RENAL FUNCTION PANEL (04/22/2023 4:51 AM CDT) Only the most recent of11 resultswithin the time period is included. Glucose 84 70 - 105 mg/dL 04/22/2023 5:25 AM CDT [facility] Sodium 140 136 - 145 mmol/L 04/22/2023 5:25 AM CDT [facility] Potassium 4.6 3.5 - 5.1 mmol/L 04/22/2023 5:25 AM CDT [facility] Chloride 113(H) 98 - 107 mmol/L 04/22/2023 5:25 AM CDT [facility] CO2 22 22 - 29 mmol/L 04/22/2023 5:25 AM CDT [facility] Calcium 8.3(L) 8.4 - 10.4 mg/dL 04/22/2023 5:25 AM CDT [facility] Anion Gap 5(L) 6 - 16 mmol/L 04/22/2023 5:25 AM CDT [facility] BUN 5(L) 5.3 - 18.7 mg/dL 04/22/2023 5:25 AM CDT [facility] Creatinine 0.80 0.57 - 1.11 mg/dL 04/22/2023 5:25 AM CDT [facility] Albumin 3.2(L) 3.4 - 5.0 gm/dL 04/22/2023 5:25 AM CDT [facility] Phosphorus 4.5 2.3 - 4.7 mg/dL 04/22/2023 5:25 AM CDT [facility] eGFR by CKD-EPI >90 >=90 mL/min/1.7 3 m2 04/22/2023 5:25 AM T [facility] Blood BLOOD SPECIMEN / Unknown Venipuncture / Unknown 04/22/2023 4:51 AM CDT 04/22/2023 4:56 AM CDT Macarena Taylor CONTROL SYSTEMS DRAFTING OFFICER-FURNACE INSTALLER LAB - CHEMISTRY ORD ERABLES [facility] [address] [place] [address] * (ABNORMAL) CK BLOOD (04/22/2023 4:51 AM CDT) Only the most recent of2 resultswithin the time period is included. CK 418(H) 29 - 168 U/L 04/22/2023 5:25 AM CDT [facility] Blood BLOOD SPECIMEN / Unknown Venipuncture / Unknown 04/22/2023 4:51 AM CDT 04/22/2023 4:56 AM CDT Macarena BEST LAB - CHEMISTRY ORD ERABLES Performing Organization Address City/[facility]/ZIP Co de Phone Number [facility] [address] [place] [address] * PHOSPHORUS BLOOD (04/21/2023 3:09 PM CDT) Only the most recent of71 resultswithin the time period is included. Phosphorus 3.7 2.3 - 4.7 mg/dL 04/21/2023 3:31 PM CDT [facility] Blood BLOOD SPECIMEN / Unknown Venipuncture / Unknown 04/21/2023 3:09 PM CDT 04/21/2023 3:12 PM CDT Liv Dixon MD LAB - CHEMISTRY [place] Performing Organization Address [facility] Co de Phone Number [facility] [address] [place] [phone] * LIPASE BLOOD (10/23/2022 4:35 PM CDT) Only the most recent of10 resultswithin the time period is included. Lipase 15 <60 U/L 10/23/2022 5:23 PM CDT [facility] Blood BLOOD SPECIMEN / Unknown Venipuncture / Unknown 10/23/2022 4:35 PM CDT 10/23/2022 4:59 PM CDT Viji Brizuela PA-C LAB - CHEMISTRY OR DERABLES Performing Organization Address City/[facility]/ZIP Co de Phone Number [facility] [address] [place] [address] * HCG BLOOD QUALITATIVE (10/23/2022 4:35 PM CDT) [facility] HCG Qual Serum Negative Negative 10/23/2022 5:24 PM CDT [facility] Blood BLOOD SPECIMEN / Unknown Venipuncture / Unknown 10/23/2022 4:35 PM CDT 10/23/2022 4:59 PM CDT Viji Brizuela PA-C LAB - CHEMISTRY OR DERABLES Performing Organization Address [facility] Co de Phone Number [facility] [address] [place] [address] * LAB RESULTS ORDER (08/25/2022 1:51 AM CDT) Narrative 08/25/2022 1:51 AM CDT Ordered by an unspecified provider. Scanned Document LAB - THERAPEUTIC DR NADJA MONITORING ORDERABLES * C-REACTIVE PROTEIN (08/22/2022 7:14 AM CDT) Only the most recent of6 resultswithin the time period is included. [facility] C-Reactive Protein <0.20 <=0.50 mg/dL 08/22/2022 8:26 AM CDT [facility] Blood BLOOD SPECIMEN / Unknown Lab Venipuncture / Unknown 08/22/2022 7:14 AM CDT 08/22/2022 7:43 AM CDT Hector Gonzalez MD LAB - CHEMISTRY [place] Performing Organization Address City/[facility] Co de Phone Number [facility] [address] [place] [phone] * ERYTHROCYTE SEDIMENTATION RATE (08/22/2022 7:14 AM CDT) Only the most recent of4 resultswithin the time period is included. [facility] Erythrocyte Sedimentation Rate Automated 9 0 - 20 MM/HR 08/22/2022 7:50 AM CDT [facility] Blood BLOOD SPECIMEN / Unknown Lab Venipuncture / Unknown 08/22/2022 7:14 AM CDT 08/22/2022 7:43 AM CDT Hector Gonzalez MD LAB - HEMATOLOGY ORD ERABLES [facility] [address] [place] [address] * XR ABDOMEN KUB (08/21/2022 3:50 PM CDT) Only the most recent of12 resultswithin the time period is included. Anatomical Region Laterality Modality Abdomen Radiographic Sandra ging 08/21/2022 4:13 PM CDT Narrative 08/21/2022 4:13 PM CDT PROCEDURE: XR ABDOMEN KUB, DATE/TIME OF EXAM: 08/21/2022 4:05 PM, LOCATION [facility] INDICATION: Z46.59: Encounter for fitting and adjustment of other gastrointestinal appliance and device KUB portable at 1532 hours HISTORY: Dobbhoff tube placement A Dobbhoff tube superimposes the stomach > Interpreting Provider: Tom Kearns MD on 08/21/2022 4:13 PM Procedure Note Tom Kearns MD - 08/21/2022 PROCEDURE: XR ABDOMEN KUB, DATE/TIME OF EXAM: 08/21/2022 4:05 PM,LOCATION [facility] INDICATION: Z46.59: Encounter for fitting and adjustment of other gastrointestinal appliance and device KUB portable at 1532 hours HISTORY: Dobbhoff tube placement A Dobbhoff tube superimposes the stomach > Interpreting Provider: Tom Kearns MD on 08/21/2022 4:13 PM Hector Gonzalez MD DIAGNOSTIC IMAGING O RDERABLES * CARDIAC EKG ORDER (2022 2:58 PM CDT) Only the most recent of2 resultswithin the time period is included. Narrative 2022 2:58 PM CDT Ordered by an unspecified provider. Scanned Document CARDIAC SERVICES ORD ERABLES * LACTIC ACID BLOOD (2022 2:01 AM CDT) Only the most recent of4 resultswithin the time period is included. Lactic Acid 0.8 <=2 mmol/L 2022 3:10 AM CDT [facility] Blood BLOOD SPECIMEN / Unknown Lab Venipuncture / Unknown 2022 2:01 AM CDT 2022 2:36 AM CDT Hal Oseguera MD LAB - CHEMISTRY JASS OAKES Performing Organization Address [facility]/ZIP Co de Phone Number [facility] [address] [place] [id number] * LACTIC ACID BLOOD REFLEX TO REPEAT (08/15/2022 9:24 PM CDT) Only the most recent of8 resultswithin the time period is included. Lactic Acid 1.8 <=2 mmol/L 08/15/2022 9:45 PM CDT [facility] Blood BLOOD SPECIMEN / Unknown Lab Venipuncture / Unknown 08/15/2022 9:24 PM CDT 08/15/2022 9:30 PM CDT Malorie Morgan DO LAB - CHEMISTRY [place] Performing Organization Address [facility] Co de Phone Number [facility] [address] [place] [phone] * LACTIC ACID REPEAT REFLEX (08/15/2022 5:58 PM CDT) Only the most recent of4 resultswithin the time period is included. Lactic Acid Repeat Reflex Order LACTIC ACID REPEAT HAS BEEN ORDERED 08/15/2022 8:01 PM CDT [facility] Blood BLOOD SPECIMEN / Unknown Venipuncture / Unknown 08/15/2022 5:58 PM CDT 08/15/2022 6:18 PM CDT Malorie Morgan DO LAB - CHEMISTRY [place]ASS [place] Performing Organization Address [facility]/ZIP Co de Phone Number [facility] [address] [place] [id number] * CT ANGIO ABDOMEN PELVIS (08/15/2022 5:50 PM CDT) Only the most recent of2 resultswithin the time period is included. Anatomical Region Laterality Modality Abdomen, Pelvis Computed Tomogra phy 08/15/2022 7:07 PM CDT Impressions 08/15/2022 7:21 PM CDT IMPRESSION: 1. No acute process or interval changes in angiographic appearance of the aorta and its branches or the bowel is identified. There is no evidence of bowel ischemia. See text. 2. Interval further enlargement of the right ovarian cyst. The last pelvic ultrasound on 06/05/2022 demonstrated the anechoic appearance of the right ovarian cyst with the features of a simple cyst at that time. > Interpreting Provider: Senthil Velazquez MD on 08/15/2022 7:21 PM Narrative 08/15/2022 7:21 PM CDT PROCEDURE: CT ANGIO ABDOMEN PELVIS DATE/TIME OF EXAM: 08/15/2022 5:52 PM CLINICAL INFORMATION: None relevant/not provided if blank. Indication: R10.84: Generalized abdominal pain CONTRAST: IOPAMIDOL 76 % IV SOLN:[address] ANGIOGRAPHY ABDOMEN PELVIS. HISTORY: h/o SMA syndrome, abdominal pain, elevated lactic acid 21 year old female presents to the ED with c/o abdominal pain that began this morning. She notes nausea vomiting. COMPARISON: CT angiography abdomen and pelvis, 06/06/2022; CT abdomen and pelvis with contrast dated 06/18/2022 and 06/26/2022 TECHNIQUE: Spiral axial scanning and reconstructed coronal and sagittal imaging of the abdomen and pelvis are performed after intravenous contrast administration in arterial phase and after 2 minutes delay. Sagittal and coronal and MIP reconstruction of arterial phase was performed by the technologist. Oral contrast was not used. Total of 100 mL of Isovue-370 contrast was used, intravenously. The radiation exposure as measured by the dose length product (DLP) is 348 mGy-cm. 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 The stomach and duodenum are collapsed. The angiographic images are stable and otherwise are normal. The aorta, celiac trunk, superior mesenteric artery, solitary bilateral renal arteries and inferior mesenteric artery are normal in caliber and are well opacified. There is no evidence of bowel ischemia, garrett-intestinal fat stranding or pneumatosis intestinalis. Apparent mild circumferential wall thickening of transverse colon is similar to the prior studies and is not associated with surrounding edema. This portion of the bowel is collapsed (series 11, images 47-29). The appendix is not discretely identified. There are no secondary signs of appendicitis. The liver, spleen, adrenal glands, nephrograms, kidneys, and pancreas are within normal limits in arterial phase and in portal venous phase. The gallbladder is unremarkable. No biliary or pancreatic ductal dilatation is identified. The inferior vena cava and deep pelvic veins are patent. The urinary bladder wall thickness is normal for the degree of distention. The retroverted uterus and the left ovary are normal. The right adnexal cystic lesions measuring 4.3 x 3.6 cm and 2.0 x 1.8 cm are larger than on the prior studies and likely represent a right ovarian cyst and an enlarged follicle, respectively. There has been progressive enlargement of the right ovarian cyst since 06/06/2022. No ascites, abscess, lymphadenopathy or free air is identified. In the imaged portion of the chest, the gastroesophageal junction is normal and the imaged lung bases are aerated and clear. The heart is not enlarged and no pleural effusion is seen. The bone window images are within normal limits for the patient's age. Procedure Note Senthil Velazquez MD - 08/15/2022 PROCEDURE: CT ANGIO ABDOMEN PELVIS DATE/TIME OF EXAM: 08/15/2022 5:52 PM CLINICAL INFORMATION: None relevant/not provided if blank. Indication: R10.84: Generalized abdominal pain CONTRAST: IOPAMIDOL 76 % IV SOLN:[address] ANGIOGRAPHY ABDOMEN PELVIS. HISTORY: h/o SMA syndrome, abdominal pain, elevated lactic acid 21 yearold female presents to the ED with c/o abdominal pain that began thismorning. She notes nausea vomiting. COMPARISON: CT angiography abdomen and pelvis, 06/06/2022; CT abdomen and pelvis with contrast dated 06/18/2022 and 06/26/2022 TECHNIQUE: Spiral axial scanning and reconstructed coronal and sagittal imaging of the abdomen and pelvis are performed after intravenouscontrast administration in arterial phase and after 2 minutes delay. Sagittal and coronal and MIP reconstruction of arterial phase was performed by the technologist. Oral contrast was not used. Total of 100 mL of Isovue-370 contrast was used, intravenously. The radiation exposure as measured bythe dose length product (DLP) is 348 mGy-cm. FINDINGS: The superior mesenteric artery syndrome has been established in thepast. The stomach and duodenum are collapsed. The angiographic images are stable and otherwise are normal. The aorta, celiac trunk, superior mesenteric artery, solitary bilateral renalarteries and inferior mesenteric artery are normal in caliber and are well opacified. There is no evidence of bowel ischemia, garrett-intestinal fat stranding or pneumatosis intestinalis. Apparent mild circumferentialwall thickening of transverse colon is similar to the prior studies and isnot associated with surrounding edema. This portion of the bowel iscollapsed (series 11, images 47-29). The appendix is not discretely identified.There are no secondary signs of appendicitis. The liver, spleen, adrenal glands, nephrograms, kidneys, and pancreasare within normal limits in arterial phase and in portal venous phase. The gallbladder is unremarkable. No biliary or pancreatic ductal dilatationis identified. The inferior vena cava and deep pelvic veins are patent. The urinary bladder wall thickness is normal for the degree ofdistention. The retroverted uterus and the left ovary are normal. The right adnexal cystic lesions measuring 4.3 x 3.6 cm and 2.0 x 1.8 cm are larger than on the prior studies and likely represent a rightovarian cyst and an enlarged follicle, respectively. There has been progressive enlargement of the right ovarian cyst since 06/06/2022. No ascites, abscess, lymphadenopathy or free air is identified. In the imaged portion of the chest, the gastroesophageal junction isnormal and the imaged lung bases are aerated and clear. The heart is notenlarged and no pleural effusion is seen. The bone window images are within normal limits for the patient's age. IMPRESSION: 1. No acute process or interval changes in angiographic appearance ofthe aorta and its branches or the bowel is identified. There is no evidenceof bowel ischemia. See text. 2. Interval further enlargement of the right ovarian cyst. The lastpelvic ultrasound on 06/05/2022 demonstrated the anechoic appearance of theright ovarian cyst with the features of a simple cyst at that time. > Interpreting Provider: Senthil Velazquez MD on 08/15/2022 7:21 PM Malorie Morgan DO CT ORDERABLES * XR CHEST 1VW PORTABLE (08/15/2022 12:26 PM CDT) Only the most recent of2 resultswithin the time period is included. Anatomical Region Laterality Modality Chest Radiographic Sandra ging 08/15/2022 12:4 3 PM CDT Impressions 08/15/2022 12:45 PM CDT IMPRESSION: No active cardiac or pulmonary disease. No significant changes compared to the prior study. > Interpreting Provider: Josué Cintron MD on 08/15/2022 12:45 PM Narrative 08/15/2022 12:45 PM CDT PROCEDURE: XR CHEST 1VW PORTABLE DATE/TIME OF EXAM: 08/15/2022 12:37 PM CLINICAL INFORMATION: None relevant/not provided if blank. Indication: R10.84: Generalized abdominal pain Additional History: COMPARISON: An AP portable chest dated 06/05/2022 FINDINGS: AP portable view of the chest is performed and compared to study of 06/05/2022. The lungs are well expanded and appear clear. Heart, pleura regions, cheyanne, mediastinum and pulmonary vascular lung markings appeared within normal limits. Procedure Note Josué Cintron MD - 08/15/2022 PROCEDURE: XR CHEST 1VW PORTABLE DATE/TIME OF EXAM: 08/15/2022 12:37 PM CLINICAL INFORMATION: None relevant/not provided if blank. Indication: R10.84: Generalized abdominal pain Additional History: COMPARISON: An AP portable chest dated 06/05/2022 FINDINGS: AP portable view of the chest is performed and compared tostudy of 06/05/2022. The lungs are well expanded and appear clear. Heart, pleura regions,cheyanne, mediastinum and pulmonary vascular lung markings appeared within normal limits. IMPRESSION: No active cardiac or pulmonary disease. No significantchanges compared to the prior study. > Interpreting Provider: Josué Cintron MD on 08/15/2022 12:45 PM Malorie Morgan DO DIAGNOSTIC IMAGING O RDERABLES * HCG BETA BLOOD QUANTITATIVE (08/15/2022 12:24 PM CDT) Only the most recent of5 resultswithin the time period is included. hCG Quantitative <1.20 mIU/mL 08/16/19 12:58 PM CDT [facility] Blood BLOOD SPECIMEN / Unknown Venipuncture / Unknown 08/15/2022 12:24 PM CDT 08/15/2022 12:27 PM CDT Narrative [facility] - 08/15/2022 12:58 PM CDT hCG Reference Range, mIU/mL: Males 0-2.0 Non Females 0-6.0 Perimenopausal Females ages 41-55* 0-7.7 Postmenopausal Females age >55* 0-14 Females, Weeks after Last Menstrual Period 0.2-1 week 5-50 1 - 2 weeks 50-500 2 - 3 weeks 100-5000 3 - 4 weeks 500-10,000 4 - 5 weeks 1000-50,000 5 - 6 weeks 10,000-100,000 6 - 8 weeks 15,000-200,000 2 - 3 months 10,000-100,000 Trophoblastic Disease >100,000 *In higher than expected hCG in females > age 40, a serum FSH >20 IU/L makes unlikely. Malorie Morgan DO LAB - CHEMISTRY JASS OAKES [facility] [address], [place] [id number] * CT ABDOMEN PELVIS W CONTRAST (06/26/2022 3:45 AM CDT) Only the most recent of3 resultswithin the time period is included. Anatomical Region Laterality Modality Abdomen, Pelvis Computed Tomogra phy 06/26/2022 8:30 AM CDT Impressions 06/26/2022 8:46 AM CDT IMPRESSION: 1. Marked thickening of the urinary bladder, concerning for cystitis. 2. No evidence of bowel obstruction seen however, fluid is noted within the bowel loops. 3. Left ovarian cyst. Edited by Harriett Fuentes on 06/26/2022 8:39 AM > Interpreting Provider: Dominick aSini MD on 06/26/2022 8:46 AM Narrative 06/26/2022 8:46 AM CDT PROCEDURE: CT ABDOMEN PELVIS W CONTRAST DATE/TIME OF EXAM: 06/26/2022 3:46 AM CLINICAL INFORMATION: None relevant/not provided if blank. Indication: R10.84: Generalized abdominal pain Additional History: COMPARISON: None. TECHNIQUE: CT of the abdomen and pelvis was performed following intravenous contrast utilizing standard protocol. CT dose reduction technique was used, including Automated Exposure Control. CONTRAST: IOPAMIDOL 76 % IV SOLN:100 mL FINDINGS: No focal consolidation is seen in the lung bases. The stomach is markedly distended and there is some mild thickening of the distal stomach. The liver, bilateral kidneys, adrenal glands, spleen, and pancreas appear normal. Fluid is seen throughout the right hemicolon. There is marked thickening of the urinary bladder, concerning for cystitis. There is a large left adnexal cyst measuring up to approximately 3.8 cm. No free fluid is seen. Bone windows demonstrate no definite destructive lesions. Procedure Note Dominick Saini MD - 06/26/2022 PROCEDURE: CT ABDOMEN PELVIS W CONTRAST DATE/TIME OF EXAM: 06/26/2022 3:46 AM CLINICAL INFORMATION: None relevant/not provided if blank. Indication: R10.84: Generalized abdominal pain Additional History: COMPARISON: None. TECHNIQUE: CT of the abdomen and pelvis was performed following intravenouscontrast utilizing standard protocol. CT dose reduction technique was used, including Automated ExposureControl. CONTRAST: IOPAMIDOL 76 % IV SOLN:100 mL FINDINGS: No focal consolidation is seen in the lung bases. The stomach ismarkedly distended and there is some mild thickening of the distal stomach. The liver, bilateral kidneys, adrenal glands, spleen, and pancreas appear normal. Fluid is seen throughout the right hemicolon. There is marked thickening of the urinary bladder, concerning for cystitis. There is a large left adnexal cyst measuring up to approximately 3.8 cm. No freefluid is seen. Bone windows demonstrate no definite destructive lesions. IMPRESSION: 1. Marked thickening of the urinary bladder, concerning for cystitis. 2. No evidence of bowel obstruction seen however, fluid is noted withinthe bowel loops. 3. Left ovarian cyst. Edited by Harriett Fuentes on 06/26/2022 8:39 AM > Interpreting Provider: Dominick Saini MD on 06/26/2022 8:46 AM Ambreen Montiel DO CT ORDERABLES * PATHOLOGY TISSUE EXAM (STL) (06/21/2022 1:32 PM CDT) Only the most recent of2 resultswithin the time period is included. Case Report Surgical Pathology Report Case: [id number] Authorizing Provider: Patel Corbett MD Collected: 06/21/2022 01:32 PM Ordering Location: [facility] Received: 06/21/2022 02:23 PM Pathologist: Rosa Castro MD Specimens: A) - Colon Ascending Biopsy B) - Rectal Biopsy 06/22/2022 8:55 AM CDT [facility] Final Diagnosis Large intestine, ascending, biopsy (A) - No histopathologic abnormality Large intestine, rectum, biopsy (B) - No histopathologic abnormality 06/22/2022 8:55 AM CDT [facility] Clinical History The patient is a 21-year-old woman with abdominal pain. Endoscopic procedure/findings: normal ascending colon and rectum, biopsied. 06/22/2022 8:55 AM CDT [facility] Gross Description The specimen is identified with patient's name and date of . Received in formalin, specimen A , colon ascending is the taylor mucosal tissue, 0.4 x 0.3 x 0.2 cm. Entirely submitted in cassette A1. LJ Received in formalin, specimen B , rectal biopsy is a pink-taylor mucosal tissue, 0.3 x 0.2 x 0.2 cm. Entirely submitted in cassette B1. 06/22/2022 8:55 AM CDT [facility] Microscopic Description Microscopic examination substantiates the above diagnosis. There is no evidence of colitis. 06/22/2022 8:55 AM CDT [facility] Disclaimer All histochemical and/or immunohistochemical results are interpreted with controls that demonstrate appropriate staining reactions before reporting results. Note on use of immunocytochemistry reagents: This test was developed and its performance characteristic determined by [facility], Department of Laboratory Medicine. It has not been cleared or approved by the U.S. Food and Drug Administration (FDA). The FDA has determined that such clearance or approval is not necessary. The test is used for clinical purpose. It should not be regarded as investigational or for research. This laboratory is certified to perform high complexity testing. The performance characteristics of the IHC/STANISLAW assays have been validated on formalin-fixed paraffin embedded tissues only. The assays have not been validated on decalcified tissues. Results should be interpreted with caution. 06/22/2022 8:55 AM CDT [facility] Embedded Images 06/22/2022 8:55 AM CDT [facility] Pathology/Cytology RECTAL BIOPSY SPECIMEN / Unknown 06/21/2022 1:32 PM CDT 06/21/2022 2:23 PM CDT Comment:Pre-op diagnosis: Abdominal pain, generalized [R10.84] Pancolitis (CMS/HCC) [K51.00] Miscellaneous samples (specimen) RECTAL BIOPSY SPECIMEN / Unknown 06/21/2022 1:32 PM CDT 06/21/2022 2:23 PM CDT Comment:Pre-op diagnosis: Abdominal pain, generalized [R10.84] Pancolitis (CMS/HCC) [K51.00] Patel Corbett MD LAB - PATHOLOGY/CYTO LOGY ORDERABLES Performing Organization Address [facility] Co de Phone Number [address] [address] * HELICOBACTER PYLORI UREASE (STL) (06/21/2022 1:16 PM CDT) Only the most recent of2 resultswithin the time period is included. Helicobacter pylori Urease Initial Negative Negative 06/22/2022 12:56 PM CDT [facility] Helicobacter pylori Urease Final Negative Negative 06/22/2022 12:56 PM CDT [facility] Microbiology GASTRIC BIOPSY SPECIMEN / Unknown Collection / Unknown 06/21/2022 1:16 PM CDT 06/21/2022 10:34 PM CDT Comment:Pre-op diagnosis: Abdominal pain, generalized [R10.84] Pancolitis (CMS/HCC) [K51.00] Patel Corbett MD LAB - MICROBIOLOGY O RDERABLES Performing Organization Address [facility] Co de Phone Number [address] [address] * ENDOSCOPY, COLON, DIAGNOSTIC (06/21/2022 1:00 PM CDT) Report Endoscopy POC _ Patient Name: Kenyatta Chavez Procedure Date: 06/21/2022 1:00 PM Date of : 2000 Admit Type: Inpatient Age: 21 Gender: Female Ethnicity: Not or Race: White Attending MD: Patel Corbett MD, [id number] _ Procedure: Colonoscopy Indications: Abnormal CT of the GI tract Providers: Patel Corbett MD (Doctor), Kassidy Quach RN, Dayana Urbina RN Referring MD: Mellissa Jiménez (Referring MD) Medicines: Monitored Anesthesia Care Complications: No immediate complications. _ Estimated Blood Loss: Estimated blood loss: none. Procedure: Pre-Anesthesia Assessment: - Prior to the procedure, a History and Physical was performed, and patient medications and allergies were reviewed. The patient's tolerance of previous anesthesia was also reviewed. The risks and benefits of the procedure and the sedation options and risks were discussed with the patient. All questions were answered, and informed consent was obtained. Prior Anticoagulants: The patient has taken no anticoagulant or antiplatelet agents. ASA Grade Assessment: II - A patient with mild systemic disease. After reviewing the risks and benefits, the patient was deemed in satisfactory condition to undergo the procedure. After I obtained informed consent, the scope was passed under direct vision. Throughout the procedure, the patient's blood pressure, pulse, and oxygen saturations were monitored continuously. The Colonoscope was introduced through the anus and advanced to the terminal ileum. The colonoscopy was performed without difficulty. The patient tolerated the procedure well. The quality of the bowel preparation was adequate. The ileocecal valve, appendiceal orifice, and rectum were photographed. Impression: - The ascending colon is normal. Biopsied. - The rectum is normal. Biopsied. Findings: The ascending colon appeared normal. Biopsies were taken with a cold forceps for histology. Estimated blood loss: none. The rectum appeared normal. Biopsies were taken with a cold forceps for histology. Estimated blood loss: none. _ Recommendation: - Written discharge instructions were provided to the patient. - The signs and symptoms of potential delayed complications were discussed with the patient. - Patient has a contact number available for emergencies. - Return to normal activities tomorrow. - Resume previous diet. - Continue present medications. - Await pathology results. - Repeat colonoscopy in 5-10 years for screening purposes. Procedure Code(s): --- Professional --- 51362, Colonoscopy, flexible; with biopsy, single or multiple --- Technical --- 56840, Colonoscopy, flexible; with biopsy, single or multiple Diagnosis Code(s): --- Professional --- R93.3, Abnormal findings on diagnostic imaging of other parts of digestive tract --- Technical --- R93.3, Abnormal findings on diagnostic imaging of other parts of digestive tract CPT copyright 2020 [employer]. All rights reserved. The codes documented in this report are preliminary and upon supply chain design manager review may be revised to meet current compliance requirements. Patel Corbett MD 06/21/2022 1:44:37 PM This report has been signed electronically. Number of Addenda: 0 Note Initiated On: 06/21/2022 1:00 PM [facility] 06/21/2022 1:00 PM CDT Patel Corbett MD GI PROCEDURE ORDERAB LES [facility] * EGD (06/21/2022 12:59 PM CDT) Report Endoscopy POC _ Patient Name: Kenyatta Chavez Procedure Date: 06/21/2022 12:59 PM Date of : 2000 Admit Type: Inpatient Age: 21 Gender: Female Ethnicity: Not or Race: White Attending MD: Patel Corbett MD, [id number] _ Procedure: Upper GI endoscopy Indications: Epigastric abdominal pain Providers: Patel Corbett MD (Doctor), Kassidy Quach RN, Dayana Urbina, BENJAMIN Referring MD: Mellissa Jiménez (Referring MD) Medicines: Monitored Anesthesia Care Complications: No immediate complications. _ Estimated Blood Loss: Estimated blood loss: none. Procedure: Pre-Anesthesia Assessment: - Prior to the procedure, a History and Physical was performed, and patient medications and allergies were reviewed. The patient's tolerance of previous anesthesia was also reviewed. The risks and benefits of the procedure and the sedation options and risks were discussed with the patient. All questions were answered, and informed consent was obtained. Prior Anticoagulants: The patient has taken no anticoagulant or antiplatelet agents. ASA Grade Assessment: II - A patient with mild systemic disease. After reviewing the risks and benefits, the patient was deemed in satisfactory condition to undergo the procedure. After obtaining informed consent, the endoscope was passed under direct vision. Throughout the procedure, the patient's blood pressure, pulse, and oxygen saturations were monitored continuously. The Endoscope was introduced through the mouth, and advanced to the second part of duodenum. Moderate sedation was administered for [ ] minutes The upper GI endoscopy was accomplished without difficulty. The patient tolerated the procedure well. Impression: - Hiatal hernia. - Gastritis. - Normal duodenal bulb, first portion of the duodenum and second portion of the duodenum. - No specimens collected. Findings: A hiatal hernia was present. Localized minimal inflammation characterized by erythema was found in the gastric antrum. The duodenal bulb, first portion of the duodenum and second portion of the duodenum were normal. _ Recommendation: - Written discharge instructions were provided to the patient. - The signs and symptoms of potential delayed complications were discussed with the patient. - Patient has a contact number available for emergencies. - Return to normal activities tomorrow. - Resume previous diet. Procedure Code(s): --- Professional --- 15822, Esophagogastroduo denoscopy, flexible, transoral; diagnostic, including collection of specimen(s) by brushing or washing, when performed (separate procedure) --- Technical --- 55161, Esophagogastroduo denoscopy, flexible, transoral; diagnostic, including collection of specimen(s) by brushing or washing, when performed (separate procedure) Diagnosis Code(s): --- Professional --- K44.9, Diaphragmatic hernia without obstruction or gangrene K29.70, Gastritis, unspecified, without bleeding R10.13, Epigastric pain --- Technical --- K44.9, Diaphragmatic hernia without obstruction or gangrene K29.70, Gastritis, unspecified, without bleeding R10.13, Epigastric pain CPT copyright 2020 [employer]. All rights reserved. The codes documented in this report are preliminary and upon supply chain design manager review may be revised to meet current compliance requirements. Patel Corbett MD 06/21/2022 1:36:34 PM This report has been signed electronically. Number of Addenda: 0 Note Initiated On: 06/21/2022 12:59 PM [facility] 06/21/2022 12:5 9 PM CDT Patel Corbett MD GI PROCEDURE ORDERAB LES [facility] * HCG URINE QUALITATIVE (06/20/2022 2:34 PM CDT) Only the most recent of2 resultswithin the time period is included. hCG Qualitative Urine Negative Negative 06/20/2022 3:02 PM CDT [facility] Urine URINE / Unknown Collection / Unknown 06/20/2022 2:34 PM CDT 06/20/2022 2:41 PM CDT Moi Bradshaw MD LAB - URINALYSIS ORD ERABLES [facility] [address] [place] [address] * Critical Care (06/18/2022 2:39 PM CDT) Narrative Billy James MD - 06/18/2022 2:39 PM CDT Billy James MD 06/18/2022 4:28 PM Critical Care Performed by: Billy James MD Authorized by: Billy James MD Critical care provider statement: Critical care time (minutes): 35 Critical care time was exclusive of: Separately billable procedures and treating other patients Critical care was necessary to treat or prevent imminent or life-threatening deterioration of the following conditions: Sepsis Critical care was time spent personally by me on the following activities: Development of treatment plan with patient or surrogate, evaluation of patient's response to treatment, examination of patient, obtaining history from patient or surrogate, ordering and performing treatments and interventions, ordering and review of laboratory studies, ordering and review of radiographic studies, re-evaluation of patient's condition and review of old charts Care discussed with: admitting provider Billy James MD PROCEDURE/MO R SURGICAL ORDERABLES * CULTURE BLOOD (06/18/2022 2:23 PM CDT) Only the most recent of2 resultswithin the time period is included. Culture No growth day 5 JACQUELINE 06/23/2022 5:02 PM CDT [facility] Blood PERIPHERAL BLOOD / Unknown Venipuncture / Unknown 06/18/2022 2:23 PM CDT 06/18/2022 2:23 PM CDT Billy James MD LAB - MICROBIO LOGY ORDERABLES [facility] [address] [place] [address], [facility] [phone] * [place] UGI W SM BOWEL FOLLOW THRU (06/08/2022 2:47 PM CDT) Anatomical Region Laterality Modality Abdomen Radiographic Sandra ging 06/08/2022 11:0 9 AM CDT Impressions 06/08/2022 2:56 PM CDT IMPRESSION: 1.Mildly delayed gastric emptying. 2.Narrowing of the D3 segment of the duodenum without obstruction. Contrast passes the area promptly without difficulty. > Dictated by Gilles Real DO ([employer]) EXAM: Small bowel follow-through HISTORY: Evaluate for possible SMA syndrome FINDINGS: Serial images of the small bowel were obtained following administration of an initial dose of thin barium. Due to the delayed progression of the barium through the small bowel, subsequently a second cup of thin barium diluted with water soluble Gastrografin was administered. The patient reportedly had been lying on her back which may have slow the transit of the barium through the small bowel for the initial 2 hours of the study. The initial KUB demonstrates a moderate amount of gas within the small and large bowel. As there was a relatively slow transit of the barium through the small bowel on the initial 2 hours of the study a second cup of barium was administered with water soluble Gastrografin. Subsequently the barium substrate passed satisfactorily through the small bowel and into the right colon. Throughout the study there is no evidence of abnormal segmentation of the barium column. No abnormally distended or constricted small bowel loops are identified. The small bowel mucosal pattern appears normal. The appendix is at least partially opacified and appeared normal. IMPRESSION: Normal-appearing small bowel study. IJosué MD have personally reviewed and interpreted this examination/study. > Interpreting Provider: Josué Cintron MD on 06/08/2022 2:56 PM Narrative 06/08/2022 2:56 PM CDT PROCEDURE: TEMPORARY, DATE/TIME OF EXAM: 06/08/2022 11:09 AM, LOCATION INDICATION: COMPARISON: None. CONTRAST: mL thin barium administered FLUOROSCOPY: minutes ( mGy) FINDINGS: The esophagus demonstrates normal distensibility and peristalsis. There are no intrinsic or extrinsic abnormalities. The stomach distends normally. There is mildly delayed gastric emptying, and contrast was not seen in the duodenum until 15 minutes after ingestion. The gastric mucosal pattern is normal. The duodenal sweep is normal. There is an area of the D3 segment which demonstrates narrowing, however, contrast crosses this point swiftly and without difficulty. The duodenojejunal junction is in normal position. The remainder of the small bowel from the duodenojejunal junction to the ileocecal valve appears normal without areas of focal stricture or dilation. Ileocecal valve appears normal. Transit time through the small bowel was . Procedure Note Josué Cintron MD - 06/08/2022 PROCEDURE: TEMPORARY, DATE/TIME OF EXAM: 06/08/2022 11:09 AM, LOCATION INDICATION: COMPARISON: None. CONTRAST: mL thin barium administered FLUOROSCOPY: minutes ( mGy) FINDINGS: The esophagus demonstrates normal distensibility and peristalsis. Thereare no intrinsic or extrinsic abnormalities. The stomach distends normally. There is mildly delayed gastric emptying, and contrast was not seen in the duodenum until 15 minutes afteringestion. The gastric mucosal pattern is normal. The duodenal sweep is normal.There is an area of the D3 segment which demonstrates narrowing, however, contrast crosses this point swiftly and without difficulty. The duodenojejunal junction is in normal position. The remainder of the small bowel from the duodenojejunal junction to the ileocecal valve appears normal without areas of focal stricture or dilation. Ileocecal valve appears normal. Transit time through the small bowel was . IMPRESSION: 1.Mildly delayed gastric emptying. 2.Narrowing of the D3 segment of the duodenum without obstruction.Contrast passes the area promptly without difficulty. > Dictated by Gilles Real DO ([employer]) EXAM: Small bowel follow-through HISTORY: Evaluate for possible SMA syndrome FINDINGS: Serial images of the small bowel were obtained following administration of an initial dose of thin barium. Due to the delayed progression of the barium through the small bowel, subsequently a second cup of thin barium diluted with water soluble Gastrografin was administered. The patient reportedly had been lying on her back whichmay have slow the transit of the barium through the small bowel for theinitial 2 hours of the study. The initial KUB demonstrates a moderate amount of gas within the smalland large bowel. As there was a relatively slow transit of the bariumthrough the small bowel on the initial 2 hours of the study a second cup ofbarium was administered with water soluble Gastrografin. Subsequently thebarium substrate passed satisfactorily through the small bowel and into theright colon. Throughout the study there is no evidence of abnormalsegmentation of the barium column. No abnormally distended or constricted small bowel loops are identified. The small bowel mucosal pattern appears normal.The appendix is at least partially opacified and appeared normal. IMPRESSION: Normal-appearing small bowel study. I, Josué Cintron MD have personally reviewed and interpreted this examination/study. > Interpreting Provider: Josué Cintron MD on 06/08/2022 2:56 PM Patel Corbett MD FLUOROSCOPY ORDERABL ES * TRICHOMONAS RAPID TEST (06/07/2022 7:23 PM CDT) Pathologist [facility] Trichomonas Rapid Test Negative Negative 06/07/2022 8:27 PM CDT [facility] Microbiology VAGINAL SWAB / Unknown Collection / Unknown 06/07/2022 7:23 PM CDT 06/07/2022 8:13 PM CDT Mitchel Phan MD LAB - MICROBIOLOGY O STEPHANIE Performing Organization Address City/[facility]/ZIP Co de Phone Number [facility] [address] [place] [address] * CHLAMYDIA + GC AMPLIFIED PROBE (06/07/2022 3:24 PM CDT) Only the most recent of8 resultswithin the time period is included. [facility] Chlamydia Amplified Probe Negative Negative 06/08/2022 12:13 AM CDT [facility] GC Amplified Probe Negative Negative 06/08/2022 12:13 AM CDT [facility] Microbiology ENTIRE ENDOCERVIX / Unknown Collection / Unknown 06/07/2022 3:24 PM CDT 06/07/2022 3:29 PM CDT Narrative [facility] - 06/08/2022 12:13 AM CDT Results based on detection/no detection of ribosomal RNA by amplified method. Mitchel Phan MD LAB - MICROBIOLOGY O STEPHANIE Performing Organization Address [facility] Co de Phone Number [facility] [address] [place] [phone] * (ABNORMAL) PT-INR (06/07/2022 4:11 AM CDT) Pathologist [facility] PT 17.7(H) 12.1 - 14.8 sec 06/07/2022 5:25 AM CDT [facility] INR 1.5(H) 0.9 - 1.1 06/07/2022 5:25 AM CDT [facility] Blood BLOOD SPECIMEN / Unknown Lab Venipuncture / Unknown 06/07/2022 4:11 AM CDT 06/07/2022 5:08 AM CDT Narrative [facility] - 06/07/2022 5:25 AM CDT Conventional Warfarin Anticoagulant Therapy: INR Reference Range: 2.0-3.0 Intensive Warfarin Anticoagulant Therapy: INR Reference Range: 2.5-3.5 Ned Torres DO LAB - COAGULATION OR DERABLES Performing Organization Address [facility] Co de Phone Number [facility] [address] [place], [place] [phone] * (ABNORMAL) HYDROXYBUTYRATE BETA (06/06/2022 5:56 AM CDT) Only the most recent of2 resultswithin the time period is included. Beta-Hydroxybu tyrate 1.3(H) <0.6 mmol/L 06/06/2022 6:27 AM CDT [facility] Blood BLOOD SPECIMEN / Unknown Lab Venipuncture / Unknown 06/06/2022 5:56 AM CDT 06/06/2022 6:11 AM CDT [facility] - 06/06/2022 6:27 AM CDT Betahydroxybutyrate comment: This test replaces Serum Acetone testing.Results 0.6-1.5 mmol/L could require medical intervention. Results >1.5 mmol/L may be indicative of diabetic ketoacidosis. Use in conjunction with Serum Glucose levels. Ned Torres DO LAB - CHEMISTRY ORDE RABLES Performing Organization Address [facility] de Phone Number [facility] [address] [place] [address] * (ABNORMAL) URINE MICROSCOPIC ONLY REFLEX TO CULTURE (06/05/2022 10:01 PM CDT) Only the most recent of3 resultswithin the time period is included. Reflex Status Culture not indicated 06/05/2022 10:42 PM CDT [facility] RBC UA 0-2 0 - 5 # /hpf 06/05/2022 10:42 PM CDT [facility] WBC UA 0-5 0 - 5 # /hpf 06/05/2022 10:42 PM CDT [facility] Bacteria UA None Seen None Seen 06/05/2022 10:42 PM CDT [facility] Squamous Epithelial Cells 6-10(A) 0 - 5 /hpf 06/05/2022 10:42 PM CDT [facility] Mucus UA 1+ /LPF 06/05/2022 10:42 PM CDT [facility] Urine URINE SPECIMEN OBTAINED BY CLEAN CATCH PROCEDURE / Unknown Collection / Unknown 06/05/2022 10:01 PM CDT 06/05/2022 10:05 PM CDT Narrative [facility] - 06/05/2022 10:42 PM CDT Mitchel Phan MD LAB - URINALYSIS ORD ERABLES [facility] [address], [place] [id number] * (ABNORMAL) URINALYSIS REFLEX MICROSCOPIC REFLEX CULTURE (06/05/2022 10:01 PM CDT) Only the most recent of3 resultswithin the time period is included. Color UA Yellow Straw, Yellow 06/05/2022 10:36 PM CDT [facility] Clarity UA Clear Clear 06/05/2022 10:36 PM CDT [facility] Glucose UA Trace(A) Negative 06/05/2022 10:36 PM CDT [facility] Bilirubin UA Negative Negative 06/05/2022 10:36 PM CDT [facility] Ketone UA 4+(A) Negative 06/05/2022 10:36 PM CDT [facility] Specific [place] UA 1.025 1.005 - 1.030 06/05/2022 10:36 PM CDT [facility] Blood UA Trace(A) Negative 06/05/2022 10:36 PM CDT [facility] pH UA 7.0 5.0 - 8.0 pH 06/05/2022 10:36 PM CDT [facility] Protein UA Trace(A) Negative 06/05/2022 10:36 PM CDT [facility] Urobilinogen UA Negative Negative mg/dL 06/05/2022 10:36 PM CDT [facility] Nitrite UA Negative Negative 06/05/2022 10:36 PM CDT [facility] Leukocyte UA Negative Negative 06/05/2022 10:36 PM CDT [facility] Urine Microscopy Urine microscopy to follow 06/05/2022 10:36 PM CDT [facility] Reflex Status Culture not indicated 06/05/2022 10:36 PM CDT [facility] Urine URINE SPECIMEN OBTAINED BY CLEAN CATCH PROCEDURE / Unknown Collection / Unknown 06/05/2022 10:01 PM CDT 06/05/2022 10:05 PM CDT Mitchel Phan MD LAB - URINALYSIS ORD ERABLES [facility] [address] [place] [address] * US PELVIS W DOPPLER OVARIES (06/05/2022 7:40 PM CDT) Only the most recent of2 resultswithin the time period is included. Anatomical Region Laterality Modality Pelvis Ultrasound 06/05/2022 8:15 PM CDT Impressions 06/05/2022 10:01 PM CDT IMPRESSION: 1. Transvaginal examination was not performed. Evaluation of the uterus was also affected by the retroverted position of the uterus. The endometrial stripe and myometrium as well as the cervix are not well seen. 2. A right adnexal cystic lesion has the appearance of a simple cyst. > Interpreting Provider: Senthil Velazquez MD on 06/05/2022 10:01 PM Narrative 06/05/2022 10:01 PM CDT PROCEDURE: US PELVIS W DOPPLER OVARIES, DATE/TIME OF EXAM: 06/05/2022 7:40 PM, LOCATION [facility] Indication: R10.84: Generalized abdominal pain EXAMINATIONS: 1. TRANSABDOMINAL PELVIC ULTRASOUND 2. LIMITED COLOR DOPPLER AND LIMITED SPECTRAL DOPPLER IMAGING HISTORY: This is a 21-year-old whose LMP was 05/29/2022 and complains of abdominal and pelvic pain. A right ovarian cyst was reported in a previous outside imaging. R10.84: Generalized abdominal pain COMPARISON: None. CORRELATION: CT abdomen and pelvis with contrast, 03/26/2022 FINDINGS: Transvaginal examination was not performed. The bladder is appropriately distended and appears unremarkable.. The retroverted nulliparous uterus is barely visible in the transabdominal images. There is no fluid in the uterine cavity. However, the endometrial stripe is not discretely visible. No focal myometrial lesion is identified. A true ovarian tissue on the right side is not identified, but the Doppler images demonstrate normal flow in ovarian tissue in the suspected location of the ovaries. The left ovary is normal with normal flow in the color Doppler and spectral Doppler images. There is a right adnexal cystic lesion measuring 3.6 x 3.2 x 3.5 cm. There is no free fluid in the cul-de-sac. Measurements: Uterus: 6.3 x 2.4 x 4.8 cm Thickness of endometrial stripe: Unable to visualize Right ovary: True ovarian tissue was not identified. Left ovary: 2.9 x 1.5 x 1.3 cm Procedure Note Senthil Velazquez MD - 06/05/2022 PROCEDURE: US PELVIS W DOPPLER OVARIES, DATE/TIME OF EXAM: 37:40 PM, LOCATION [facility] Indication: R10.84: Generalized abdominal pain EXAMINATIONS: 1. TRANSABDOMINAL PELVIC ULTRASOUND 2. LIMITED COLOR DOPPLER AND LIMITED SPECTRAL DOPPLER IMAGING HISTORY: This is a 21-year-old whose LMP was 05/29/2022 andcomplains of abdominal and pelvic pain. A right ovarian cyst was reported in a previous outside imaging. R10.84: Generalized abdominal pain COMPARISON: None. CORRELATION: CT abdomen and pelvis with contrast, 03/26/2022 FINDINGS: Transvaginal examination was not performed. The bladder is appropriately distended and appears unremarkable.. The retroverted nulliparous uterus is barely visible in the transabdominal images. There is no fluid in the uterine cavity. However, theendometrial stripe is not discretely visible. No focal myometrial lesion isidentified. A true ovarian tissue on the right side is not identified, but theDoppler images demonstrate normal flow in ovarian tissue in the suspectedlocation of the ovaries. The left ovary is normal with normal flow in the color Doppler and spectral Doppler images. There is a right adnexal cysticlesion measuring 3.6 x 3.2 x 3.5 cm. There is no free fluid in the cul-de-sac. Measurements: Uterus: 6.3 x 2.4 x 4.8 cm Thickness of endometrial stripe: Unable to visualize Right ovary: True ovarian tissue was not identified. Left ovary: 2.9 x 1.5 x 1.3 cm IMPRESSION: 1. Transvaginal examination was not performed. Evaluation of the uteruswas also affected by the retroverted position of the uterus. The endometrial stripe and myometrium as well as the cervix are not well seen. 2. A right adnexal cystic lesion has the appearance of a simple cyst. > Interpreting Provider: Senthil Velazquez MD on 06/05/2022 10:01 PM Mitchel Phan MD ORDERABLES * MN INSERT INTRAUTERINE DEVICE (04/16/2022 10:30 AM [employer]ING [employer]) Narrative Grace Casey MD - 04/16/2022 10:30 AM [employer]ING [employer]ER Grace Casey MD 04/16/2022 10:31 AM IUD Insertion Patient desires IUD. I have counseled her regarding the risks, benefits, and side effects with emphasis on the possibility of unpredictable bleeding patterns. She expresses understanding of the risks and requests to proceed with the procedure. All her questions were answered to her satisfaction, and she understands and agrees to appropriate follow up appointments. Written informed consent was obtained. Present form of contraception: none Urine test: negative Procedure Note: Bimanual exam preformed. Cervix prepped with betadine and grasped with a tenaculum. The uterus was sounded to 6.5 cm. Mirena IUD inserted easily. Strings cut to 2 cm. Tenaculum removed and good hemostasis noted. Patient tolerated the procedure well. Patient instructed to follow-up in 4 weeks and to use a back-up form of contraception until then. Instructed to call with heavy bleeding, or severe lower abdominal pain with fever. Mirena Buy and Bill Lot # [id number] [facility] [place] # [id number] [phone] Grace Casey MD Grace Casey MD PROCEDURE/MINOR GRAY RGICAL ORDERABLES * HCG URINE QUALITATIVE - POCT () [facility] (04/16/2022) Test Urine Negative Negative Urine URINE / Unknown 04/16/2022 Grace Casey MD LAB - POINT OF CAR E ORDERABLES * CULTURE URINE (03/26/2022 1:32 AM [employer]ING [employer]) Only the most recent of4 resultswithin the time period is included. Culture Urine <10,000 CFU/mL urogenital luis m JACQUELINE 03/27/2022 8:19 AM [employer]ING [employer]ER [facility] Urine URINE SPECIMEN OBTAINED BY CLEAN CATCH PROCEDURE / Unknown Collection / Unknown 03/26/2022 1:32 AM [employer] 03/26/2022 1:38 AM R[employer]ING [employer]ER Alexandra Tan MD LAB - MICROBIOLOGY O RDERABLES Performing Organization Address City/[facility]/ZIP Co de Phone Number [facility] [address] [place] [phone] * (ABNORMAL) PTH INTACT W/O CALCIUM (02/15/2022 4:24 AM R[employer]FING [employer]ER) PTH Intact 82.1(H) 8.7 - 77.1 pg/mL 02/15/2022 5:15 AM R[employer]ING LAYER [facility] Blood BLOOD SPECIMEN / Unknown Lab Venipuncture / Unknown 02/15/2022 4:24 AM [employer] 02/15/2022 4:38 AM [employer]ER Hal Oseguera MD LAB - CHEMISTRY [place] Performing Organization Address City/[facility]/ZIP Co de Phone Number [facility] [address] [place] [address] * CALCIUM IONIZED BLOOD (02/15/2022 4:24 AM R[employer]FING [employer]ER) Only the most recent of2 resultswithin the time period is included. Calcium Ionized 1.21 1.12 - 1.32 mmol/L 02/15/2022 5:03 AM [employer]ING [employer]ER [facility] pH 7.40 7.35 - 7.45 pH 02/15/2022 5:03 AM [employer]ER [facility] Blood BLOOD SPECIMEN / Unknown Lab Venipuncture / Unknown 02/15/2022 4:24 AM [employer] 02/15/2022 4:37 AM [employer]ING [employer]ER Hal Oseguera MD LAB - CHEMISTRY [place] Performing Organization Address City/[facility]/ZIP Co de Phone Number [facility] [address], [place] [id number] * (ABNORMAL) IRON + TRANSFERRIN PANEL (02/15/2022 4:24 AM [employer]) Only the most recent of3 resultswithin the time period is included. Iron 47(L) 50 - 170 ug/dL 02/15/2022 5:17 AM [employer]ING L[employer]ER [facility] Transferrin 204 180 - 382 mg/dL 02/15/2022 5:17 AM [employer]ING [employer]ER [facility] TIBC Calculated 255 240 - 450 ug/dL 02/15/2022 5:17 AM [employer]ER [facility] Iron Saturation % 18(L) 20 - 50 % 02/15/2022 5:17 AM [employer]ER [facility] Blood BLOOD SPECIMEN / Unknown Lab Venipuncture / Unknown 02/15/2022 4:24 AM [employer] 02/15/2022 4:37 AM [employer]ING [employer]ER Hal Oseguera MD LAB - CHEMISTRY [place] Performing Organization Address [facility] Co de Phone Number [facility] [address], [place] [id number] * FERRITIN (02/15/2022 4:24 AM R[employer]ING [employer]ER) Only the most recent of3 resultswithin the time period is included. Ferritin 64 5 - 204 ng/mL 02/15/2022 5:37 AM [employer]ING [employer]ER [facility] Blood BLOOD SPECIMEN / Unknown Lab Venipuncture / Unknown 02/15/2022 4:24 AM [employer]ER 02/15/2022 4:37 AM R[employer]FING L[employer]ER Hal Oseguera MD LAB - CHEMISTRY JASS OAKES Performing Organization Address City/[facility]/ZIP Co de Phone Number [facility] [address], [place] [id number] * PORPHYRINS AND PORPHOBILINOGEN (PBG) URINE (01/25/2022 4:42 PM [facility]) Collection Time Hours Random hr 1:18 PM [facility] ([facility]) Comment: Per 24h calculations are provided to aid interpretation for collections with a duration of 24 hours and an average daily urine volume. For specimens with notable deviations in collection time or volume, ratios of analytes to a corresponding urine creatinine concentration may assist in result interpretation. Volume 24 Hour Urine Random mL 01/11 2 1:18 PM [facility]) Uroporphyrin umol/mol power transformer inspector 1 0 - 4 umol/mo l DRY END OPERATOR 2 1:18 PM [facility]) Heptacarboxyporphyrins Urine 0 0 - 2 umol/mo l DRY END OPERATOR 2 1:18 PM [facility]) Coproporphyrin I umol/mol power transformer inspector Urine 3 0 - 6 umol/mo l DRY END OPERATOR 2 1:18 PM [facility]) Coproporphyrin III umol/mol power transformer inspector 10 0 - 14 umol/mo l DRY END OPERATOR 2 1:18 PM [facility]) Porphobilinogen umol/L Urine < 5 0.0 - 8.8 umol/L 2 1:18 PM [facility] ([facility]) Comment: INTERPRETIVE INFORMATION: Porphobilinogen (PBG), Urine - per volume This test was developed and its performance characteristics determined by [facility]. It has not been cleared or approved by the US Food and Drug Administration. This test was performed in a CLIA certified laboratory and is intended for clinical purposes. Porphobilinogen 24 Hour Urine Not Applicable 0.0 - 11.0 umol/d 2 1:18 PM [facility]) Creatinine Urine 44 mg/dL 01/30/20 2 2 1:18 PM [facility]) Creatinine 24 Hour Urine Not Applicable 700 - 1600 mg/d 2 1:18 PM [facility]) Interpretation Porphyrin Negative 2 1:18 PM [facility]) Comment: INTERPRETIVE INFORMATION: Porphyrins, Fractionation and Quantitation, Urine Results are normalized to creatinine concentration and reported as a ratio of amounts (micromoles of porphyrin/moles of creatinine). This test was developed and its performance characteristics determined by [facility]. It has not been cleared or approved by the US Food and Drug Administration. This test was performed in a CLIA certified laboratory and is intended for clinical purposes. Performed by [facility], [address] [place] [id number] [email or web address], Hector Bradford MD, PHD, Lab. Director Urine URINE SPECIMEN OBTAINED BY CLEAN CATCH PROCEDURE / Unknown Collection / Unknown 01/25/2022 4:42 PM [facility] 01/25/2022 5:00 PM [facility] Josafat Krishnan MD LAB - URINE CHEMISTR Y ORDERABLES Performing Organization Address City/[facility]/ZIP Co de Phone Number [facility] ([facility]) [address] [place] [id number] [place] [address] * HCG URINE QUALITATIVE - POCT (IP) INTERFACED (01/23/2022 4:15 PM [facility]) Only the most recent of10 resultswithin the time period is included. HCG Qual Urine Negative Negative 01/23/2022 4:26 PM [facility] Urine URINE / Unknown 01/23/2022 4 :15 PM [facility] 01/23/2022 4:26 PM [facility] Provider Unknown LAB - POINT OF CARE ORDERABLES [facility] [address] [place] [id number] * TRICHOMONAS VAGINALIS AMPLIFIED PROBE (01/23/2022 12:33 PM [facility]) Only the most recent of5 resultswithin the time period is included. Trichomonas vaginalis Amplified Probe Negative Negative 01/24/2022 11:39 AM [facility] Microbiology URINE / Unknown Collection / Unknown 01/23/2022 12:33 PM [facility] 01/23/2022 12:48 PM [facility] Narrative [facility] - 01/24/2022 11:39 AM [facility] This test was developed and its performance characteristics determined by the [facility], [facility]. Urine specimens tested by the [facility] have not been cleared or approved by the U.S. Food and Drug Administration (FDA). The laboratory is regulated under the Clinical Laboratory Improvement Amendments (CLIA) as qualified to perform high-complexity testing. This test is used for clinical purposes. It should not be regarded as investigational or for research. Results based on detection/no detection of ribosomal RNA by amplified method. Lida Sierra DO LAB - MICROBIOLOGY O RDERABLES Performing Organization Address City/[facility]/ZIP Co de Phone Number [facility] [address] [place] [address], [facility] [phone] * HCG URINE QUAL POCT NOTIFICATION (01/23/2022 12:10 PM [facility]) Only the most recent of8 resultswithin the time period is included. Comment Notification Label Only - See Separate Report 01/23/2022 1:32 PM [facility] Urine URINE / Unknown 01/23/2022 1 2:10 PM [facility] 01/23/2022 12:25 PM [facility] Lida Sierra DO LAB - URINALYSIS ORD ERABLES Performing Organization Address City/[facility]/ZIP Co de Phone Number [facility] [place] [address] * (ABNORMAL) HEPATIC FUNCTION PANEL (01/23/2022 11:00 AM [facility]) Protein Total 8.6(H) 6.0 - 8.3 g/dL 022 11:43 AM [facility] Albumin 4.3 3.4 - 5.0 g/dL 01/23/2022 11:43 AM [facility] Bilirubin Total 0.9 0.2 - 1.2 mg/dL 01/11 11:43 AM [facility] Bilirubin Conjugated 0.2 0.1 - 0.5 mg/dL 01/23/2022 11:43 AM [facility] Bilirubin Unconjugated 0.7 Unconjugated Bilirubin is a calculated value: Reference ranges have not been established. mg/dL 01/23/2022 11:43 AM [facility] Alkaline Phosphatase 113 40 - 150 U/L 01/23/2022 11:43 AM [facility] ALT 139(H) 5 - 55 U/L 01/23/2022 11:43 AM [facility] AST 71(H) 5 - 34 U/L 01/23/2022 11:43 AM [facility] Albumin/Globulin Ratio 1.0(L) 1.1 - 2.3 01/23/2022 11:43 AM [facility] Blood BLOOD SPECIMEN / Unknown Venipuncture / Unknown 01/23/2022 11:00 AM [facility] 01/23/2022 11:28 AM [facility] Lida Sierra LAB - CHEMISTRY [place]ES Performing Organization Address City/[facility]/ZIP Co de Phone Number [address] [address], [facility] [phone] * (ABNORMAL) AMYLASE BLOOD (01/23/2022 11:00 AM [facility]) Pathologist [facility] Amylase 215(H) 25 - 125 U/L 01/23/2022 12:43 PM [facility] Blood BLOOD SPECIMEN / Unknown Lab Venipuncture / Unknown 01/23/2022 11:00 AM [facility] 01/23/2022 12:35 PM [facility] Lida Sierra LAB - CHEMISTRY [place] [address] [address], [place] [phone] * C. TRACHOMATIS + N. GONORRHOEAE + TRICH YAMIL (12/07/2021 10:51 AM CDT) Only the most recent of3 resultswithin the time period is included. Chlamydia Trachomatis YAMIL Not detected Not detected 12/13/2021 10:46 AM CDT [facility] Neisseria Gonorrhoeae YAMIL Not detected Not detected 12/13/2021 10:46 AM CDT [facility] Trichomonas Vaginalis YAMIL Not detected Not detected 12/13/2021 10:46 AM CDT [facility] Microbiology MISCELLANEOUS SAMPLES / Unknown Collection / Unknown 12/07/2021 10:51 AM CDT 12/08/2021 2:08 PM CDT Narrative [facility] - 12/13/2021 10:46 AM CDT This analysis was performed using Gen-Probe Aptima Combo 2 and Gen-Probe Aptima Assay. These methodologies are U.S. FDA approved for Chlamydia trachomatis, Neisseria gonorrhoeae testing for urine and urogenital swabs from men and women, and cervical cells submitted in ThinPrep vials. Performance characteristics of testing for Trichomonas vaginalis on specimens using the Gen-Probe Aptima Trichomonas vaginalis Assay on the TransUnion system and rectal and pharyngeal swabs with Gen-Probe Aptima combo 2 were determined by the [facility] at [facility]. They have not been cleared or approved by the U.S Food and Drug Administration (FDA). The FDA has determined that such clearance approval is not necessary. This test is used for clinical purposes and should not be regarded as investigational or for research. This laboratory is certified under the Clinical Laboratory Improvements Amendments of 1988 (CLIA 1988), as qualified to perform high complexity laboratory testing. Karrie Mack MD LAB - MICROBIOLOGY ORDERABLES [facility] [address] [facility] [place] [address], [facility] [phone] * HEPATITIS C AB W/RFLX TO HCV RNA QN PCR (12/07/2021) Hepatitis C Antibody NON-REACTI VE NON-REACT KASIA [facility] Signal to Cut-Off 0.08 <1.00 [facility] Comment: HCV antibody was non-reactive. There is no laboratory evidence of HCV infection. In most cases, no further action is required. However, if recent HCV exposure is suspected, a test for HCV RNA (test code 35101) is suggested. For additional information please refer to http://education.[employer].GettingHired/faq/HKX30s0 (This link is being provided for informational/ educational purposes only.) Test Performed at: [facility] [address] [place] [address] PURVI PABLO DO,MPH Blood BLOOD SPECIMEN / Unknown 12/07/2021 12/07/2021 10:47 AM CDT Karrie Mack MD LAB - CHEMISTRY ORD ERABLES Performing Organization Address [facility] Co de Phone Number [address] [address] * HEPATITIS B SURFACE ANTIGEN W RFLX CONFIRMATION (12/07/2021) Hepatitis B Virus Surface Antigen NON-REACT KASIA NON-REACT KASIA [facility] Comment: Test Performed at: [facility] [address] [place] [address] PURVI PABLO DO,MPH Confirmation [facility] Comment: Test Performed at: [facility] [address] [place] [address] PURVI PABLO DO,MPH Blood BLOOD SPECIMEN / Unknown 12/07/2021 12/07/2021 10:47 AM CDT Karrie Mack MD LAB - CHEMISTRY ORD ERABLES Performing Organization Address [facility] [place] [address] * (ABNORMAL) URINALYSIS W/MICROSCOPIC NO CULTURE (10/30/2021 5:16 AM CDT) Only the most recent of6 resultswithin the time period is included. Color UA Straw Straw, Yellow 10/30/2021 6:00 AM CDT [facility] Clarity UA Clear Clear 10/30/2021 6:00 AM CDT [facility] Specific [place] UA 1.008 1.005 - 1.030 10/30/2021 6:00 AM CDT [facility] pH UA 6.0 5.0 - 8.0 pH 10/30/2021 6:00 AM CDT [facility] Protein UA Negative Negative 10/30/2021 6:00 AM CDT [facility] Glucose UA Negative Negative 10/30/2021 6:00 AM CDT [facility] Ketone UA 2+(A) Negative 10/30/2021 6:00 AM [facility] Bilirubin UA Negative Negative 10/30/2021 6:00 AM [facility] Blood UA Negative Negative 10/30/2021 6:00 AM [facility] Nitrite UA Negative Negative 10/30/2021 6:00 AM [facility] Leukocyte Esterase Negative Negative 10/30/2021 6:00 AM [facility] Urobilinogen UA Negative Negative mg/dL 10/30/2021 6:00 AM [facility] RBC UA 0-2 None Seen, 0-2, 3-5 /HPF 10/30/2021 6:00 AM [facility] WBC UA 0-5 None Seen, 0-5 /HPF 10/30/2021 6:00 AM [facility] Squamous Epithelial Cells UA 0-2 None Seen, 0-2, 3-5 /HPF 10/30/2021 6:00 AM [facility] Mucus UA 1+ /LPF 10/30/2021 6:00 AM [facility] Hyaline Casts UA 0-2 None Seen, 0-2 /LPF 10/30/2021 6:00 AM [facility] Urine URINE SPECIMEN OBTAINED BY CLEAN CATCH PROCEDURE / Unknown Collection / Unknown 10/30/2021 5:16 AM CDT 10/30/2021 5:[address] [facility] - 10/30/2021 6:00 AM CDT Henrique Santos MD LAB - URINALYSIS ORD ERABLES [facility] [address] [place] [address], [facility] [phone] * EKG 15-LEAD (10/29/2021 4:51 PM CDT) Only the most recent of8 resultswithin the time period is included. Ventricular Rate 104 BPM CG MUSE Atrial Rate 104 BPM CG MUSE P-R Interval 124 ms CG MUSE QRS Duration ms 74 ms CG MUSE Q-T Interval ms 352 ms CG MUSE QTC Calculation (Bezet) 463 ms CG MUSE Calculated P [place] 71 degrees CG MUSE Calculated R [place] 71 degrees CG MUSE Calculated T [place] 44 degrees CG MUSE Interpretation EKG Sinus tachycardia Nonspecific ST and T wave abnormality When compared with ECG of 01-FEB-2021 13:56, Confirmed by FLOR JOHNSON, DARYL ([id number]) on 10/30/2021 12:07:46 PM CG MUSE 10/29/2021 4:51 PM CDT 10/30/2021 12:07 PM CDT Trey Ramirez MD ECG ORDERABLES CG MUSE * XR ABD OBSTRUCTION SERIES 2VW (10/29/2021 4:08 PM CDT) Only the most recent of4 resultswithin the time period is included. Anatomical Region Laterality Modality Abdomen Radiographic Sandra ging 10/30/2021 9:20 AM CDT Impressions 10/30/2021 9:21 AM CDT IMPRESSION: Nonspecific bowel gas pattern. Moderate stool burden. > Interpreting Provider: Vicenta Love MD on 10/30/2021 9:21 AM Narrative 10/30/2021 9:21 AM CDT PROCEDURE: XR ABD OBSTRUCTION SERIES 2VW, DATE/TIME OF EXAM: 10/29/2021 4:08 PM, LOCATION [facility] INDICATION: R11.2: Nausea with vomiting, unspecified ADDITIONAL CLINICAL INFORMATION: Ordering Provider Reason For Exam: Technologist Note: Additional: None. COMPARISON: 08/11/2021 TECHNIQUE: Supine and upright frontal views of the abdomen and pelvis. FINDINGS: Moderate colonic stool burden. Nonspecific bowel gas pattern. No pneumoperitoneum or pneumatosis. No radiopaque foreign body. No acute osseous abnormality. Curvature of the lumbar spine, slightly increased since 08/11/2021. Right side up pelvic tilt. Lung bases are clear. Procedure Note Vicenta Love MD - 10/30/2021 PROCEDURE: XR ABD OBSTRUCTION SERIES 2VW, DATE/TIME OF EXAM: 10/29/2021 4:08 PM, LOCATION [facility] INDICATION: R11.2: Nausea with vomiting, unspecified ADDITIONAL CLINICAL INFORMATION: Ordering Provider Reason For Exam: Technologist Note: Additional: None. COMPARISON: 08/11/2021 TECHNIQUE: Supine and upright frontal views of the abdomen and pelvis. FINDINGS: Moderate colonic stool burden. Nonspecific bowel gas pattern. No pneumoperitoneum or pneumatosis. No radiopaque foreign body. No acute osseous abnormality. Curvature of the lumbar spine, slightly increased since 08/11/2021. Right side up pelvic tilt. Lung bases areclear. IMPRESSION: Nonspecific bowel gas pattern. Moderate stool burden. > Interpreting Provider: Vicenta Love MD on 10/30/2021 9:21 AM Trey Ramirez MD DIAGNOSTIC IMAGING O RDERABLES * GGT (10/29/2021 1:49 PM CDT) Only the most recent of3 resultswithin the time period is included. [facility] GGT 16 9 - 64 Units/L 10/29/2021 3:00 PM CDT [facility] Blood BLOOD SPECIMEN / Unknown Venipuncture / Unknown 10/29/2021 1:49 PM CDT 10/29/2021 2:35 PM CDT Trey Ramirez MD LAB - CHEMISTRY JASS OAKES [facility] Organization Address City/State/ZIP Co de Phone Number [address] [address], [facility] [phone] * (ABNORMAL) BLOOD GAS+COOX+LYTES+METAB CAPILLARY POCT (08/11/2021 3:39 PM CDT) [facility] pH Capillary 7.38 7.35 - 7.45 pH 08/11/2021 3:39 PM CDT [facility] pO2 Capillary 76 Interpret within clinical context mmHg 08/11/2021 3:39 PM CDT [facility] pCO2 Capillary 21 Interpret within clinical context mmHg 08/11/2021 3:39 PM CDT [facility] HCO3 Capillary 12.4(L) 20.0 - 30.0 mmol/L 08/11/2021 3:39 PM CDT [facility] BE Capillary -10.7(L) -2.0 - 2.0 mmol/L 08/11/2021 3:39 PM CDT [facility] Oxyhemoglobin Capillary 95.0 % 08/11/2021 3:39 PM [facility] Deoxyhemoglobin (HHB) % 3.2 % 08/11/2021 3:39 PM [facility] Methemoglobin Capillary <0.8 0.0 - 2.0 % 08/11/2021 3:39 PM [facility] Carboxyhemoglobin Capillary 1.2 0.0 - 2.0 % 08/11/2021 3:39 PM [facility] Comment:Carboxyhemoglobin No rmal Concentration: Non-smokers: 0-2%; Smokers: 0- 9%; Toxic: >20% O2 Content Capillary 16.3 Interpret within clinical context mg/dL 08/11/2021 3:39 PM [facility] Hemoglobin by COOX 12.2 12.0 - 16.0 g/dL 08/11/2021 3:39 PM [facility] O2 Saturation Capillary 97 95 - 99 % 08/11/2021 3:39 PM [facility] Sodium Whole Blood 138 135 - 145 mmol/L 08/11/2021 3:39 PM [facility] Potassium Whole Blood 4.0 3.5 - 5.5 mmol/L 08/11/2021 3:39 PM [facility] Chloride WB 102 101 - 111 mmol/L 08/11/2021 3:39 PM [facility] Calcium Ionized 1.23 mmol/L 3:39 PM [facility] Ionized Calcium pH Adjusted 1.22 1.19 - 1.34 mmol/L 08/11/2021 3:39 PM [facility] Anion Gap (AG) Arterial 28(H) 8 - 18 mmol/L 08/11/2021 3:39 PM [facility] Glucose WB 83 70 - 105 mg/dL 08/11/2021 3:39 PM [facility] Lactic Acid Whole Blood 3.8(HH) <=2.0 mmol/L 08/11/2021 3:39 PM [facility] Blood CAPILLARY BLOOD / Unknown 08/11/2021 3:39 PM T 08/15/2021 8:58 AM [facility] - 08/11/2021 3:39 PM CDT Notified: Vinny TAVARES RN, Notified By: Vinny MIJARES, Notification Time: 1540, Read back and verified? Y Zaira Ledbetter MD LAB - POINT OF CARE ORDERABLES Performing Organization Address City/[facility]/ZIP Co de Phone Number [facility] [address] [place] [address] * (ABNORMAL) PT-INR [facility] (08/10/2021 11:33 AM CDT) PT 15.2(H) 12.1 - 14.8 Seconds 08/10/2021 12:[address] [facility] INR 1.2 See Comment 08/10/2021 12:[address] [facility] Comment:The suggested therap eutic range for standard coumadin (warfarin) therapy is an INR of 2.0-3.0. For high-risk patients (Mechanical Mitral Valve Prosthesis, etc.), the suggested prophylactic therapeutic range is an INR of 2.5-3.5. Blood BLOOD SPECIMEN / Unknown Lab Venipuncture / Unknown 08/10/2021 11:33 AM CDT 08/10/2021 11:50 AM CDT Zaira Ledbetter MD LAB - COAGULATION OR DERABLES Performing Organization Address [facility] Co de Phone Number [address] [address], [facility] [phone] * RPR W REFLEX TO TITER (MONITOR) (08/10/2021 11:33 AM CDT) RPR Monitor Nonreactive Nonreactive 08/10/2021 3:[address] [facility] Blood BLOOD SPECIMEN / Unknown Lab Venipuncture / Unknown 08/10/2021 11:33 AM CDT 08/10/2021 11:41 AM CDT Zaira Ledbetter MD LAB - CHEMISTRY ORDE RABLES Performing Organization Address City/[facility]/ZIP Co de Phone Number [address] [address], [place] [phone] * (ABNORMAL) SALICYLATE LEVEL BLOOD (08/10/2021 11:33 AM CDT) Salicylate <5(L) 15 - 30 mg/dL 08/10/2021 12:[address] [facility] Blood BLOOD SPECIMEN / Unknown Lab Venipuncture / Unknown 08/10/2021 11:33 AM CDT 08/10/2021 11:[address] [facility] - 08/10/2021 12:21 PM CDT This test is not intended for use with low-dose aspirin therapy. Most patients on low-dose aspirin for cardiovascular prophylaxis will have serum concentrations near or below the lower limit of the analytical range. Zaira Ledbetter MD LAB - CHEMISTRY [place] [address] [address], [facility] [phone] * TRANSFERRIN (08/10/2021 11:30 AM CDT) Transferrin 329 174 - 382 mg/dL 08/11/2021 3:[address] [facility] Blood BLOOD SPECIMEN / Unknown Lab Venipuncture / Unknown 08/10/2021 11:30 AM CDT 08/11/2021 3:30 PM CDT Zaira Ledbetter MD LAB - CHEMISTRY [place] [address] [address], [facility] [phone] * IRON BLOOD (08/10/2021 11:30 AM CDT) Iron 48 40 - 150 ug/dL 08/11/2021 3:[address] [facility] Blood BLOOD SPECIMEN / Unknown Lab Venipuncture / Unknown 08/10/2021 11:30 AM CDT 08/11/2021 3:30 PM CDT Zaira Ledbetter MD LAB - CHEMISTRY JASS [place]ES Performing Organization Address [facility]/ZIP Co de Phone Number [facility] [address] [place] [address], [facility] [phone] * ALCOHOL ETHYL BLOOD (08/10/2021 7:56 AM CDT) Ethanol (mg/dL) <10 <=10 mg/dL 8:[address] [facility] Ethanol Calculated (g/dL) <0.010 <0.010 g/dL 08/10/2021 8:[address] [facility] Blood BLOOD SPECIMEN / Unknown Lab Venipuncture / Unknown 08/10/2021 7:56 AM CDT 08/10/2021 8:[address] [facility] - 08/10/2021 8:21 AM CDT Ethanol Interp <10: None Detected. Depression of BEAUTY ARTIST: >100 mg/dl Potentially Critical: >250 mg/dl Potentially Fatal >400 mg/dl Ethanol in the patient's blood will contribute to the osmolar gap. Ethanol's contribution to the osmolar gap can be estimated by dividing the concentration of ethanol in mg/dL by 4.6. This test is for clinical use only and does not equal a LISA for legal purposes. Zaira Ledbetter MD LAB - CHEMISTRY JASS [place]ES Performing Organization Address [facility] Co de Phone Number [id number] [place] [address], [facility] [phone] * DRUG SCREEN TOX COMPREHESIVE URINE PANEL (08/10/2021 6:33 AM CDT) Drug Screen Urine Comprehensive Panel 08/10/2021 9:55 AM CDT [facility] Urine URINE / Unknown Collection / Unknown 08/10/2021 6:33 AM CDT 08/10/2021 6:39 AM CDT Zaira Ledbetter MD LAB - URINE CHEMISTR Y ORDERABLES Performing Organization Address City/[facility]/ZIP Co de Phone Number [facility] ATTN [address] Lex [address] [place] [address], [facility] * ACETAMINOPHEN LEVEL (08/10/2021 4:02 AM CDT) Acetaminophen <3.0 <3.0 ug/mL 08/10/2021 4:[address] [facility] Blood BLOOD SPECIMEN / Unknown Venipuncture / Unknown 08/10/2021 4:02 AM CDT 08/10/2021 4:[address] [facility] - 08/10/2021 4:27 AM CDT Acetaminophen Toxicity Levels (Hours Post Ingestion): >200 ug/mL at 4 hours >100 ug/mL at 8 hours >50 ug/mL at 12 hours For acute ingestion, please refer to Acetaminophen nomogram to determine the risk of toxicity based on time since ingestion and acetaminophen level (see link provided). Note the nomogram disclaimer. WARNING: Assessing the potential toxicity of an acetaminophen level on a standard risk nomogram must take into consideration many factors including any uncertainty of the time since ingestion or the possibility of other medications that may alter the peak level. Contact the [facility] at or reserved for healthcare professionals to assist you in evaluating potentially toxic acetaminophen levels. Lida Sierra DO LAB - CHEMISTRY [facility]ASS O[place] [facility] [address] [place] [address], [facility] [phone] * (ABNORMAL) DIFFERENTIAL MANUAL (08/10/2021 2:01 AM CDT) Only the most recent of5 resultswithin the time period is included. WBC (corrected for NRBC) 15.2 10 3/uL 08/10/2021 4:[address] [facility] Total Cell Count 100 08/11/19 22 4:[address] [facility] [facility] Neutrophils Absolute Manual 13.53(H) 1.40 - 8.60 10 3/uL 08/10/2021 4:[address] [facility] Comment:(BANDS+SEGS) x WBC = NEUT # (ANC) Lymphocyte Absolute Manual 1.22 0.60 - 5.90 10 3/uL 08/10/2021 4:[address] [facility] Monocytes Absolute Manual 0.46 0.18 - 1.43 10 3/uL 08/10/2021 4:36 AM [facility] Neutrophil % Manual 89(H) 31 - 78 % 08/10/2021 4:36 AM [facility] Lymphocyte % Manual 8(L) 13 - 54 % 08/10/2021 4:36 AM [facility] Monocytes % Manual 3(L) 4 - 13 % 08/10/2021 4:36 AM [facility] Platelet Estimate Adequate Adequate 08/10/2021 4:36 AM [facility] Anisocytosis Occasional( A) None 08/10/2021 4:36 AM [facility] Ovalocytes Occasional( A) None 08/10/2021 4:36 AM [facility] Blood BLOOD SPECIMEN / Unknown Venipuncture / Unknown 08/10/2021 2:01 AM CDT 08/10/2021 2:20 AM CDT Danielle Ramirez MD LAB - HEMATO LOGY ORDERABLES Performing Organization Address City/State/[facility] Co de Phone Number [address] [address], [facility] [phone] * SARS-COV-2 (COVID-19) FLU A/B RSV PCR RAPID (08/10/2021 1:42 AM CDT) COVID-19 PCR Not detected Not detected 08/11/19 22 2:[address] [facility] Influenza A PCR Not detected Not detected 08/10/2021 2:[address] [facility] Influenza B PCR Not detected Not detected 08/10/2021 2:[address] [facility] RSV PCR Not detected Not detected 08/10/2021 2:[address] [facility] Microbiology SPECIMEN FROM NASOPHARYNGEAL STRUCTURE / Unknown Collection / Unknown 08/10/2021 1:42 AM CDT 08/10/2021 2:[address] [facility] - 08/10/2021 2:59 AM CDT This nucleic acid amplification assay has been authorized by the Food and Drug administration (FDA) under an Emergency Use Authorization (EUA). This test is only authorized for the duration of time the declaration that circumstances exist justifying the authorization of emergency use of in vitro diagnostic tests for detection of SARS-CoV-2 virus and/or diagnosis of COVID-19 infection under section 564(b)(1) of the Act, 21 U.S.C 360bbb-3 (b)(1), unless the authorization is terminated or revoked sooner. Fact Sheets for this EUA assay are available upon request. Danielle Ramirez MD LAB - MICROB IOLOGY ORDERABLES [facility] [address] [place] [phone], [facility] [phone] * SARS-COV-2 (COVID-19) RAPID (06/27/2021 5:11 PM CDT) COVID-19 PCR Not detected Not detected 06/28/19 6:[address] [facility] Microbiology SPECIMEN FROM NASOPHARYNGEAL STRUCTURE / Unknown Collection / Unknown 06/27/2021 5:11 PM CDT 06/27/2021 5:[address] [facility] - 06/27/2021 6:24 PM CDT The Cepheid Xpert Xpress SARS-COV-2 has been authorized by the Food and Drug Administration (FDA) under an Emergency Use Authorization (EUA). This test has been validated in accordance with the FDA's guidance document Policy for Diagnostic Testing in Laboratories Certified to perform High Complexity Testing under CLIA prior to Emergency Use Authorization for Coronavirus Disease-2019 during the Public Health Emergency issued on April 11, 2019. FDA independent review of this validation is pending. This test is only authorized for the duration of the time the declaration that circumstances exist justifying the authorization of emergency use of in vitro diagnostic tests for detection of SARS-COV-2 virus and/or diagnosis of COVID-19 infection under 564(b) (1) of the Act. 21 U.S.C. 360bbb-3 (b) (1), unless the authorization is terminated or revoked sooner. Fact Sheets for this EUA assay are available upon request. Chinmay Sams MD LAB - MICROBIOLOGY O RDERABLES [facility] [address] [place] [address], [facility] [phone] * (ABNORMAL) URINALYSIS - POCT (IP) BEAKER INTERFACE (05/08/2021 10:14 AM CDT) Only the most recent of6 resultswithin the time period is included. Color UA POCT Yellow Straw, Yellow, Dark Yellow, Light Yellow 05/08/2021 10:20 AM T [facility] Clarity UA POCT Clear Clear 2 10:20 AM T [facility] Specific [place] UA POCT >=1.030 1.005 - 1.030 05/08/2021 10:20 AM T [facility] pH UA POCT 5.5 5.0 - 8.0 pH 05/08/2021 10:20 AM T [facility] Protein UA POCT Negative Negative 2 10:20 AM T [facility] Blood UA POCT 2+(A) Negative 05/08/2021 10:20 AM T [facility] Leukocyte UA POCT 1+(A) Negative 05/08/2021 10:20 AM T [facility] Nitrite UA POCT Negative Negative 2 10:20 AM T [facility] Glucose UA POCT Negative Negative 2 10:20 AM T [facility] Ketone UA POCT Negative Negative 05/08/2021 10:20 AM T [facility] Bilirubin UA POCT Negative Negative 05/08/2021 10:20 AM T [facility] Urobilinogen UA POCT 0.2 0.1 - 1.0 EU/dL 05/08/2021 10:20 AM T [facility] Urine URINE / Unknown 05/08/2021 1 0:14 AM CDT 05/08/2021 10:20 AM CDT Daphnie Gillespie MD LAB - POINT OF CARE ORDERABLES [facility] [address] [place] [phone] * URINALYSIS - POCT (IP) NOTIFICATION (05/08/2021 10:06 AM CDT) Only the most recent of4 resultswithin the time period is included. Comment Notification 05/08/2021 11:30 AM CDT [facility] Urine URINE / Unknown 05/08/2021 1 0:06 AM CDT 05/08/2021 10:12 AM CDT Daphnie Gillespie MD LAB - URINALYSIS ORD ERABLES Performing Organization Address City/[facility]/ZIP Co de Phone Number [facility] [address] [place] [phone] * SARS-COV-2 (COVID-19) INTERNAL (02/10/2021 10:57 AM [facility]) Only the most recent of4 resultswithin the time period is included. COVID-19 PCR Not detected Not detected 02/10/2021 5:47 PM [facility] MICROBIOLOGY Microbiology SPECIMEN FROM NASOPHARYNGEAL STRUCTURE / Unknown Collection / Unknown 02/10/2021 10:57 AM [facility] 02/10/2021 10:57 AM [facility] Narrative [facility] MICROBIOLOGY - 02/10/2021 5:47 PM [facility] This nucleic acid amplification assay performance was validated by [facility]. This test has been authorized by the Food and Drug administration (FDA)under an Emergency Use Authorization (EUA). This test has been validated in accordance with the FDA's guidance document Policy for Diagnostic Testing in Laboratories Certified to perform High Complexity Testing under CLIA prior to Emergency Use Authorization for Coronavirus Disease-2019 during the Public Health Emergency issued on April 11, 2019. FDA independent review of this validation is pending. This test is only authorized for the duration of time the declaration that circumstances exist justifying the authorization of emergency use of in vitro diagnostic tests for detection of SARS-CoV-2 virus and/or diagnosis of COVID-19 infection under section 564(b)(1) of the Act, 21 U.S.C 360bbb-3 (b)(1), unless the authorization is terminated or revoked sooner. Fact Sheets for this EUA assay are available upon request. Daphnie Gillespie MD LAB - MICROBIOLOGY O RDERABLES [facility] MICROBIOLOGY [address] [place] [address], [facility] [phone] * QUANTIFERON-TB GOLD PLUS 4-TUBE (02/01/2021 1:59 PM [facility]) [facility] QuantiFERON NIL 0.01 IU/mL 1:01 PM [facility] ([facility]) Comment: Performed By: [employer] [address] [place] [phone] Irrigation Foreman: Katarzyna Sharp MD QuantiFERON TB Gold Plus Negative Negative 02/04/2021 1:01 PM [facility] ([facility]) Comment: Interpretive Data: Quantiferon TB Gold Plus Interferon gamma release is measured for specimens from each of the four collection tubes. A qualitative result (Negative, Positive, or Indeterminate) is based on interpretation of the four values, NIL, MITOGEN minus NIL (MITOGEN-NIL), TB1 minus NIL (TB1-NIL), and TB2 minus NIL (TB2-NIL). The NIL value represents nonspecific reactivity produced by the patient specimen. The MITOGEN-NIL value serves as the positive control for the patient specimen, demonstrating successful lymphocyte activity. The TB1-NIL tube specifically detects CD4+ lymphocyte reactivity, specifically stimulated by the TB1 antigens. The TB2-NIL tube detects both CD4+ and CD8+ lymphocyte reactivity, stimulated by TB2 antigens. An overall Negative result does not completely rule out TB infection. A false-positive result in the absence of other clinical evidence of TB infection is not uncommon. Refer to: Updated Guidelines for Using Interferon Gamma Release Assays to Detect Mycobacterium tuberculosis Infection --- [place], 2010 (http://www.cdc.gov/mmwr/preview/mmwrhtml/ts4979t2.htm), for more information concerning test performance in low-prevalence populations and use in occupational screening. QuantiFERON Plus TB1 Minus NIL 0.00 0.00 - 0.34 IU/mL 02/04/2021 1:01 PM [facility] ([facility]) QuantiFERON Plus TB2 Minus NIL 0.00 0.00 - 0.34 IU/mL 02/04/2021 1:01 PM [facility] ([facility]) QuantiFERON Mitogen Minus NIL 7.04 IU/mL 02/04/2021 1:01 PM [facility] ([facility]) Blood BLOOD SPECIMEN / Unknown Lab Venipuncture / Unknown 02/01/2021 1:59 PM [facility] 02/01/2021 2:46 PM [facility] Daphnie Gillespie MD LAB - CHEMISTRY [place] [facility] Organization Address City/State/ZIP Co de Phone Number [facility]) [address] * [place] INSERT INTRAUTERINE DEVICE (01/19/2021 9:31 AM [facility]) Narrative Karrie Mack MD - 01/19/2021 9:31 AM [facility] Karrie Mack MD 01/19/2021 9:32 AM IUD Insertion Patient desires IUD. I have counseled her regarding the risks, benefits and side effects with emphasis on the possibility of unpredictable bleeding patterns, especially in the first six months. Risk are not limited to irregular bleeding, uterine perforation, expulsion and . She was told that the IUD does not protect against HIV, AIDS, or any other sexually transmitted diseases. She expresses understanding of the risks and requests to proceed with the procedure. All her questions were answered to her satisfaction, and she understands and agrees to appropriate follow up appointments. Written informed consent was obtained. Switching from another hormonal method? No, on menses Urine test: neg Procedure Note: Bimanual examination was performed. Speculum was placed and cervix prepped with betadine. Anterior Cervix was grasped with a tenaculum at 12 o'clock. The uterus was sounded to 7 cm. mirena IUD inserted easily. Strings cut to 4 cm. Tenaculum removed and good hemostasis noted. Patient tolerated the procedure well. Patient instructed to follow-up in 4 weeks and to use a back-up form of contraception for 7 days post insertion. Check monthly for presence of strings. Instructed to call with heavy bleeding, severe lower abdominal pain not relieved by NSAIDS, Fever or inability to palpate strings. Lot # [id number] Exp: 03/2023 [facility] [place] [id number] The Device was buy and bill yes Karrie Mack MD Karrie Mack MD PROCEDURE/MINOR DEBBIE GICAL ORDERABLES * SYPHILIS ANTIBODY CASCADING REFLEX (01/04/2021 5:38 PM [facility]) Treponema pallidum Antibody Non-react kasia Non-react kasia 01/04/2021 6:[address] [facility] Comment: No Laboratory evidence of syphilis infection. Note: Circulating antibodies may be low or undetectable in early infection. If recent exposure is suspected, re-draw sample in 2-4 weeks and repeat testing. Blood BLOOD SPECIMEN / Unknown Lab Venipuncture / Unknown 01/04/2021 5:38 PM [facility] 01/04/2021 5:49 PM [facility] Rosa Coles MD LAB - SEROLOGY OR DERABLES [facility] [address] [place] [phone], [facility] [phone] * (ABNORMAL) URINALYSIS W/MICROSCOPIC REFLEX TO CULTURE (01/03/2021 1:49 PM [facility]) Color UA Yellow Straw, Yellow 01/03/2021 2:[address] [facility] Clarity UA Slt Cloudy(A) Clear 01/03/2021 2:[address] [facility] Specific [place] UA 1.030 1.005 - 1.030 01/03/2021 2:26 PM [facility] pH UA 7.0 5.0 - 8.0 pH 01/03/2021 2:26 PM [facility] Protein UA 3+(AA) Negative 01/03/2021 2:[address] [facility] Glucose UA Negative Negative 01/03/2021 2:26 PM [facility] Ketone UA 2+(AA) Negative 01/03/2021 2:26 PM [facility] Bilirubin UA Negative Negative 01/03/2021 2:26 PM [facility] Blood UA Negative Negative 01/03/2021 2:26 PM [facility] Nitrite UA Negative Negative 01/03/2021 2:26 PM [facility] Leukocyte Esterase Negative Negative 01/03/2021 2:26 PM [facility] Urobilinogen UA Negative Negative mg/dL 01/03/2021 2:26 PM [facility] RBC UA 0-2 None Seen, 0-2, 3-5 /HPF 01/03/2021 2:26 PM [facility] WBC UA 0-5 None Seen, 0-5 /HPF 01/03/2021 2:26 PM [facility] Squamous Epithelial Cells UA 3-5 None Seen, 0-2, 3-5 /HPF 01/03/2021 2:26 PM [facility] Mucus UA 3+ /LPF 01/03/2021 2:26 PM [facility] Transitional Epithelial Cells UA 0-2(A) None Seen /HPF 01/03/2021 2:26 PM [facility] Urine URINE SPECIMEN OBTAINED BY CLEAN CATCH PROCEDURE / Unknown Collection / Unknown 01/03/2021 1:49 PM [facility] 01/03/2021 1:56 PM [facility] - 01/03/2021 2:26 PM [facility] Culture Not Indicated Mellissa Duvall MD LAB - URINALYSIS ORD ERABLES [facility] [address] [place] [phone], [facility] [phone] * (ABNORMAL) SPECIFIC GRAVITY URINE (04/08/2020 4:12 AM [facility]) Only the most recent of48 resultswithin the time period is included. Specific [place] UA 1.001(L) 1.005 - 1.030 04/08/2020 4:25 AM [facility] Urine URINE / Unknown Collection / Unknown 04/08/2020 4:12 AM [facility] 04/08/2020 4:19 AM [facility] Narrative [facility] - 04/08/2020 4:25 AM [facility] Shannon Batres MD LAB - URINALYSIS ORD ERABLES Performing Organization Address [facility]/ZIP Co de Phone Number [facility] [address] [place] [phone] * TRIGLYCERIDES BLOOD (03/31/2020 4:57 PM [facility]) Only the most recent of34 resultswithin the time period is included. Triglycerides 134 <150 mg/dL 03/31/2020 5:22 PM [facility] Blood BLOOD SPECIMEN / Unknown Line Draw / Unknown 03/31/2020 4:57 PM [facility] 03/31/2020 5:00 PM [facility] Shannon Batres MD LAB - CHEMISTRY ORDE RABLES Performing Organization Address [facility] Co de Phone Number [facility] [address] [place] [phone] * ECHO CONSULT - PEDIATRIC (03/21/2020 8:30 AM [facility]) Only the most recent of2 resultswithin the time period is included. 03/21/2020 8:30 AM [facility] Narrative Procedure Note Surya Ledbetter MD - 03/21/[address] [place] [phone] Fax Non-Congenital Transthoracic Report Pat.Name: KENYATTA CHAVEZ Keke.ID: [id number] .Date: 03/21/2020 Refer.MD: YADIRA LANGFORD Exam Time: 8:30:00 AM Study Type:Non-Congenital TTE Height: 159cm Weight: 41.7kg BSA: 1.37 m2 Age: 7 2000,19Y Sex: FEMALE BP: 159/42 Sonogrphr: Ermina Keric, RDCS Pat. Stat.:Inpatient Room: 3002 CPT - 4: 88168, 46772, 90870 Reason for Study: Severe protein-calorie malnutrition SUMMARY: Impression: Technically difficult study Structurally normal heart Normal biventricular size and systolic function Findings: Anatomic Relationships: Abdominal situs solitus. There is levocardia. Atrial situs solitus. The AV alignment is concordant. The ventricular looping is D-looped. The VA connection is concordant. The arterial relationships are normal. Systemic Veins: Normal right SVC. Normal IVC. Pulmonary Veins: At least two pulmonary veins drain to the left atrium. Right Atrium: The right atrial size is normal. Left Atrium: The left atrial size is normal. Atrial Septum: No significant shunting visualized; not well visualized. Tricuspid Valve: The tricuspid valve is structurally normal. There is no stenosis. There is physiologic regurgitation present. Mitral Valve: The mitral valve is structurally normal. There is no stenosis. There is no regurgitation present. Right Ventricle: The cavity size is normal. The wall thickness is normal. The systolic function is normal. RV Outflow Tract: The outflow tract is normal. Left Ventricle: The cavity size is normal. The wall thickness is normal; LV mass is decreased. The systolic function is normal. LV Outflow Tract: The outflow tract is normal. Ventricular Septum: The septal motion is normal. There is no defect with no shunting. Pulmonary Valve: The pulmonic valve is structurally normal. There is no stenosis. There is physiologic regurgitation present. Aortic Valve: The aortic valve is structurally normal. There is no stenosis. There is no regurgitation present. Pulmonary Artery: The MPA is normal. The LPA is not well visualized. The RPA is not well visualized. Aorta: The aortic root is normal. The aortic arch is patent. The arch sidedness is not evaluated. PDA: No PDA with no shunting. Coronary Arteries: Not evaluated. Pericardium: No pericardial effusion. MEASUREMENTS: MMODE Ventricles LVIDd 38.27 mm (zsc -2.1) LVPWs 10.59 mm (zsc -1.8) LVIDs 24.65 mm (zsc -1.4) LV%fs 35.59 % (zsc 0.2) IVSd 7.35 mm (zsc -0.8) LV EF 65.8 % IVSs 11.68 mm (zsc 0.1) LV Mass 57.44 g (zsc -3.3) LVPWd 5.62 mm (zsc -2.1) Signed 03/21/2020 01:14 PM Surya Ledbetter MD Shannon Batres MD ECHO ORDERABLES Performing Organization Address [facility] Co de Phone Number [facility] [address] [place] [address] * (ABNORMAL) GLUCOSE - POINT OF CARE (03/18/2020 12:59 PM [facility]) Only the most recent of2 resultswithin the time period is included. Blood BLOOD SPECIMEN / Unknown 03/18/2020 12:59 PM [facility] 03/18/2020 1:02 PM [facility] Shannon Batres MD LAB - POINT OF CARE ORDERABLES Performing Organization Address [facility] Co de Phone Number [facility] [address] [place] [address] * TSH (03/15/2020 9:15 PM [facility]) Only the most recent of5 resultswithin the time period is included. TSH 1.03 0.35 - 4.95 uIU/mL 03/15/2020 10:23 PM [facility] Blood BLOOD SPECIMEN / Unknown Venipuncture / Unknown 03/15/2020 9:15 PM [facility] 03/15/2020 9:35 PM [facility] Debbie Baltazar MD LAB - CHEMISTRY [place] Performing Organization Address [facility]/ZIP Co de Phone Number [facility] [address] [place] [address] * T4 FREE (03/15/2020 9:15 PM [facility]) Only the most recent of5 resultswithin the time period is included. T4 Free 1.13 0.70 - 1.48 ng/dL 03/15/2020 10:23 PM [facility] Blood BLOOD SPECIMEN / Unknown Venipuncture / Unknown 03/15/2020 9:15 PM [facility] 03/15/2020 9:35 PM [facility] Debbie Baltazar MD LAB - CHEMISTRY [place] Performing Organization Address [facility] Co de Phone Number [facility] [address] [place] [address] * MRI BRAIN WO CONTRAST (03/11/2020 7:24 PM [facility]) Anatomical Region Laterality Modality Head Magnetic Resonan ce 03/12/2020 8:02 AM [facility] Impressions 03/12/2020 8:15 AM [facility] Normal MR appearance of the brain. *Reading Radiologist: Breana Jimenez on 03/12/2020 at 8:15 AM Narrative 03/12/2020 8:15 AM [facility] INDICATION: 19-year-old female, evaluation of persistent emesis COMPARISON: None available. TECHNIQUE: Multiplanar, multisequence imaging of the brain was performed without IV contrast as per departmental protocol. FINDINGS: The brain parenchymal signal and morphology are normal. The myelination pattern is normal for patient age. Diffusion and susceptibility weighted imaging are normal. There is no mass effect. No extra-axial fluid collection. The ventricles are normal in size and configuration. The flow voids of the major intracranial vessels are normal. The orbits, paranasal sinuses, mastoids, calvarium and soft tissues of the scalp are unremarkable. Procedure Note Breana Jimenez MD - 03/12/2020 INDICATION: 19-year-old female, evaluation of persistent emesis COMPARISON: None available. TECHNIQUE: Multiplanar, multisequence imaging of the brain was performed without IV contrast as per departmental protocol. FINDINGS: The brain parenchymal signal and morphology are normal. The myelination pattern is normal for patient age. Diffusion and susceptibility weighted imaging are normal. There is no mass effect. No extra-axial fluid collection. The ventricles are normal in size and configuration. The flow voids of the major intracranial vessels are normal. The orbits, paranasal sinuses, mastoids, calvarium and soft tissues of the scalp are unremarkable. IMPRESSION Normal MR appearance of the brain. *Reading Radiologist: Breana Jimenez on 03/12/2020 at 8:15 AM Debbie Baltazar MD MR ORDERABLES * FL FEEDING TUBE PLACEMENT/FL ORAL [place] or D TUBE PLACEMENT [[id number]] (03/11/2020 6:51 PM [facility]) Only the most recent of3 resultswithin the time period is included. Anatomical Region Laterality Modality Abdomen X-Ray Angiograph y 03/11/2020 6:56 PM [facility] Impressions 03/11/2020 7:01 PM [facility] Successful fluoroscopic placement of Dobbhoff feeding tube in the jejunum. *Reading Radiologist: Mick Gaxiola on 03/11/2020 at 7:01 PM Narrative 03/11/2020 7:01 PM [facility] EXAM: Fluoroscopic postpyloric placement of feeding tube. HISTORY: Anorexia nervosa in need of feeding access COMPARISON: Fluoroscopy feeding tube placement March 02, 2020, February 02, 2020 CONTRAST: 4.5 ml isovue 300 FLUOROSCOPY TIME: 9.9 minutes RADIATION DOSE: 5.4 (mGy) FINDINGS: The tip of the feeding tube was advanced into jejunum utilizing a Bentson wire. The Bentson wire was removed. 4.5 cc of water-soluble contrast was injected to confirm appropriate position within the jejunum. Procedure Note Mick Gaxiola, DO - 03/11/2020 EXAM: Fluoroscopic postpyloric placement of feeding tube. HISTORY: Anorexia nervosa in need of feeding access COMPARISON: Fluoroscopy feeding tube placement March 02, 2020, February 02, 2020 CONTRAST: 4.5 ml isovue 300 FLUOROSCOPY TIME: 9.9 minutes RADIATION DOSE: 5.4 (mGy) FINDINGS: The tip of the feeding tube was advanced into jejunum utilizing a Bentson wire. The Bentson wire was removed. 4.5 cc of water-soluble contrast was injected to confirm appropriate position within the jejunum. IMPRESSION Successful fluoroscopic placement of Dobbhoff feeding tube in the jejunum. *Reading Radiologist: Mick Gaxiola on 03/11/2020 at 7:01 PM Debbie Baltazar MD FLUOROSCOPY ORDERABL ES * SARS-COV-2 (COVID-19)+INFLU A+B PCR RAPID (03/09/2020 5:24 PM [facility]) COVID-19 PCR Not detected Not detected 03/09/19 7:30 PM [facility] Influenza A PCR Not detected Not detected 03/09/2020 7:30 PM [facility] [facility] Influenza B PCR Not detected Not detected 03/09/2020 7:30 PM ROOFING LAYER [facility] Microbiology SPECIMEN FROM NASOPHARYNGEAL STRUCTURE / Unknown Collection / Unknown 03/09/2020 5:24 PM ROOFING LAYER 03/09/2020 6:54 PM ROOFING LAYER Narrative [facility] - 03/09/2020 7:30 PM ROOFING LAYER Influenza assay performed by Nucleic Acid Amplification. Results do not exclude the possibility of a mixed viral infection. NOTE: Detecting and identifying specific viral nucleic acids from individuals exhibiting signs and symptoms of respiratory infection aids in the diagnosis of respiratory infection, if used in conjunction with other clinical and laboratory findings. The results of this test should not be used as the sole basis for diagnosis, treatment, or patient management decisions. This nucleic acid amplification assay performance was validated by [facility]. This test has been authorized by the Food and Drug administration (FDA)under an Emergency Use Authorization (EUA). This test has been validated in accordance with the FDA's guidance document Policy for Diagnostic Testing in Laboratories Certified to perform High Complexity Testing under CLIA prior to Emergency Use Authorization for Coronavirus Disease-2019 during the Public Health Emergency issued on April 11, 2019. FDA independent review of this validation is pending. This test is only authorized for the duration of time the declaration that circumstances exist justifying the authorization of emergency use of in vitro diagnostic tests for detection of SARS-CoV-2 virus and/or diagnosis of COVID-19 infection under section 564(b)(1) of the Act, 21 U.S.C 360bbb-3 (b)(1), unless the authorization is terminated or revoked sooner. Fact Sheets for this EUA assay are available upon request. Debbie Baltazar MD LAB - MICROBIOLOGY O RDERABLES [facility] [address] [place] [address] * FL UGI SERIES (03/09/2020 10:13 AM ROOFING LAYER) Anatomical Region Laterality Modality Abdomen Radio Fluoroscop y 03/09/2020 10:2 0 AM ROOFING LAYER Impressions 03/09/2020 10:31 AM ROOFING LAYER Evaluation limited by patient vomiting during the exam. The horizontal and descending portions of the duodenum were not imaged. However, there were no findings to suggest high-grade obstruction (no significant dilatation of the proximal duodenum and evidence of contrast progression into the proximal jejunum). *Reading Radiologist: Breana Jimenez on 03/09/2020 at 10:31 AM Narrative 03/09/2020 10:31 AM ROOFING LAYER INDICATION: 19-year-old female with suspected SMA syndrome COMPARISON: NG tube placement under fluoroscopy dated 03/02/2020, CT angiogram of abdomen dated 02/29/2020 CONTRAST: 50 mL thin barium administered via an NG tube FLUOROSCOPY: 0.6 minutes (1.7 mGy) FINDINGS: The stomach distended normally. There was slow gastric emptying, but without evidence of obstruction. The gastric mucosal pattern was normal. No gastroesophageal reflux was visualized. The duodenal bulb and descending duodenum were nondilated. The horizontal and descending portions of the duodenum were not imaged, as the patient vomited and could not be positioned supine while vomiting. Imaging performed just after the patient vomited revealed contrast within the proximal jejunum and a very small residual within the stomach. The study was terminated at this time after discussion with the surgery team. Procedure Note Breana Jimenez MD - 03/09/2020 INDICATION: 19-year-old female with suspected SMA syndrome COMPARISON: NG tube placement under fluoroscopy dated 03/02/2020, CT angiogram of abdomen dated 02/29/2020 CONTRAST: 50 mL thin barium administered via an NG tube FLUOROSCOPY: 0.6 minutes (1.7 mGy) FINDINGS: The stomach distended normally. There was slow gastric emptying, but without evidence of obstruction. The gastric mucosal pattern was normal. No gastroesophageal reflux was visualized. The duodenal bulb and descending duodenum were nondilated. The horizontal and descending portions of the duodenum were not imaged, as the patient vomited and could not be positioned supine while vomiting. Imaging performed just after the patient vomited revealed contrast within the proximal jejunum and a very small residual within the stomach. The study was terminated at this time after discussion with the surgery team. IMPRESSION Evaluation limited by patient vomiting during the exam. The horizontal and descending portions of the duodenum were not imaged. However, there were no findings to suggest high-grade obstruction (no significant dilatation of the proximal duodenum and evidence of contrast progression into the proximal jejunum). *Reading Radiologist: Breana Jimenez on 03/09/2020 at 10:31 AM Debbie Baltazar MD FLUOROSCOPY ORDERABL ES * CT ANGIO ABDOMEN (02/29/2020 11:40 AM ROOFING LAYER) Only the most recent of2 resultswithin the time period is included. Anatomical Region Laterality Modality Abdomen Computed Tomogra phy 02/29/2020 12:0 3 PM ROOFING LAYER Impressions 02/29/2020 1:29 PM ROOFING LAYER 1. Unchanged decreased aortomesenteric angle and distance. Findings are again associated with SMA syndrome in the appropriate clinical scenario. However, there is no upstream dilation of the duodenum or stomach. 2. Unchanged focal narrowing of the left renal vein as it passes between the aorta and SMA with relative upstream dilation. Findings may be seen in nutcracker syndrome in the appropriate clinical scenario. No evidence of gonadal vein collaterals or left renal vein thrombosis. *Reading Radiologist: Mick Gaxiola on 02/29/2020 at 1:29 PM Narrative 02/29/2020 1:29 PM ROOFING LAYER EXAMINATION: CT angiogram with 3D reconstructions of the abdomen with intravenous contrast History: Abdominal pain. Technique: Utilizing 2.5 mm collimation images of abdomen with IV contrast. 5 mm reconstructions were made with soft tissue algorithms. Additional multiplanar reconstructions were made using the thin data set in the coronal and sagittal planes. Contrast: 86 mL of Isovue-300. 3D reconstructions were made on an independent workstation. DOSE: CTDI: 10.94 mGy, DLP: 109.49 mGy-cm The reported CTDIvol (mGy) and DLP (mGy-cm) values are generated from scan acquisition factors based on 32 cm (body) or 16 cm (head) phantoms and may underestimate or overestimate the actual patient dose based on patient size and other factors. Comparison: CT angiogram abdomen January 28, 2020 Findings: * The abdominal aorta is normal in course and caliber. * The celiac artery is patent. * The superior mesenteric and inferior mesenteric arteries are patent. * Two right and one left renal artery, patent. * Bilateral common iliac arteries are patent. Both the aortomesenteric angle and distance remain narrowed: * The aortomesenteric angle is 21 degrees (series 601, image 70). * The aortomesenteric distance measures 4 mm (series 3, image 48). The left renal vein courses between the superior mesenteric artery and aorta measuring approximately 2 mm in AP dimension. The renal vein upstream from this narrowed segment is asymmetrically enlarged and measures 8 mm in AP dimension. The left renal vein is patent without evidence of renal vein thrombosis. No collateral gonadal vein pathways/varices are detected on this phase of contrast. Normal right renal vein. The lung bases are clear. The imaged heart is normal in appearance. There is no pericardial effusion. The liver enhances homogenously without focal lesion. The intra and extrahepatic biliary ducts are nondilated. The gallbladder is decompressed. The spleen is normal in size. The pancreas and adrenal glands are normal. Bilateral kidneys enhance symmetrically. There is no hydronephrosis or nephrolithiasis. The stomach is decompressed and normal in appearance. The duodenum is decompressed and normal in appearance. The imaged small and large bowel are normal without evidence of thickening or obstruction. There is no free fluid or free air. No abdominal lymphadenopathy seen. The visible osseous structures are intact. Mild straightening of the normal lumbar lordosis. Mild dextroscoliotic thoracolumbar spinal curvature. Procedure Note Mick Gaxiola DO - 02/29/2020 EXAMINATION: CT angiogram with 3D reconstructions of the abdomen with intravenous contrast History: Abdominal pain. Technique: Utilizing 2.5 mm collimation images of abdomen with IV contrast. 5 mm reconstructions were made with soft tissue algorithms. Additional multiplanar reconstructions were made using the thin data set in the coronal and sagittal planes. Contrast: 86 mL of Isovue-300. 3D reconstructions were made on an independent workstation. DOSE: CTDI: 10.94 mGy, DLP: 109.49 mGy-cm The reported CTDIvol (mGy) and DLP (mGy-cm) values are generated from scan acquisition factors based on 32 cm (body) or 16 cm (head) phantoms and may underestimate or overestimate the actual patient dose based on patient size and other factors. Comparison: CT angiogram abdomen January 28, 2020 Findings: * The abdominal aorta is normal in course and caliber. * The celiac artery is patent. * The superior mesenteric and inferior mesenteric arteries are patent. * Two right and one left renal artery, patent. * Bilateral common iliac arteries are patent. Both the aortomesenteric angle and distance remain narrowed: * The aortomesenteric angle is 21 degrees (series 601, image 70). * The aortomesenteric distance measures 4 mm (series 3, image 48). The left renal vein courses between the superior mesenteric artery and aorta measuring approximately 2 mm in AP dimension. The renal vein upstream from this narrowed segment is asymmetrically enlarged and measures 8 mm in AP dimension. The left renal vein is patent without evidence of renal vein thrombosis. No collateral gonadal vein pathways/varices are detected on this phase of contrast. Normal right renal vein. The lung bases are clear. The imaged heart is normal in appearance. There is no pericardial effusion. The liver enhances homogenously without focal lesion. The intra and extrahepatic biliary ducts are nondilated. The gallbladder is decompressed. The spleen is normal in size. The pancreas and adrenal glands are normal. Bilateral kidneys enhance symmetrically. There is no hydronephrosis or nephrolithiasis. The stomach is decompressed and normal in appearance. The duodenum is decompressed and normal in appearance. The imaged small and large bowel are normal without evidence of thickening or obstruction. There is no free fluid or free air. No abdominal lymphadenopathy seen. The visible osseous structures are intact. Mild straightening of the normal lumbar lordosis. Mild dextroscoliotic thoracolumbar spinal curvature. IMPRESSION 1. Unchanged decreased aortomesenteric angle and distance. Findings are again associated with SMA syndrome in the appropriate clinical scenario. However, there is no upstream dilation of the duodenum or stomach. 2. Unchanged focal narrowing of the left renal vein as it passes between the aorta and SMA with relative upstream dilation. Findings may be seen in nutcracker syndrome in the appropriate clinical scenario. No evidence of gonadal vein collaterals or left renal vein thrombosis. *Reading Radiologist: Mick Gaxiola on 02/29/2020 at 1:29 PM Shannon Batres MD CT ORDERABLES * VITAMIN D 25-HYDROXY (02/23/2020 5:28 PM ROOFING LAYER) Only the most recent of2 resultswithin the time period is included. Vitamin D, 25 Hydroxy 25.6 20 - 100 ng/mL 02/23/2020 6:24 PM ROOFING LAYER [facility] Blood BLOOD SPECIMEN / Unknown Venipuncture / Unknown 02/23/2020 5:28 PM ROOFING LAYER 02/23/2020 5:35 PM ROOFING LAYER Narrative [facility] - 02/23/2020 6:24 PM ROOFING LAYER Vitamin D Status: Deficient <10 ng/mL Borderline 10-20 ng/mL Sufficient >20 ng/mL Toxic >100 ng/mL Debbie Baltazar MD LAB - CHEMISTRY [place] [facility] [address] [place] [address] * (ABNORMAL) METANEPHRINES FRACTIONATED URINE TIMED (02/20/2020 6:25 PM ROOFING LAYER) Normetanephrine 24 Hour Urine 123 Undefined ug/L 02/26/2020 8:08 PM ROOFING LAYER [facility] Normetanephrine Urine 4(L) 90 - 315 ug/24 hr 02/26/2020 8:08 PM ROOFING LAYER [facility] Metanephrine 24 Hour Urine 99 Undefined ug/L 02/26/2020 8:08 PM ROOFING LAYER [facility] Metanephrine Urine 3(L) 44 - 161 ug/24 hr 02/26/2020 8:08 PM ROOFING LAYER [facility]) Urine TIMED URINE SPECIMEN / Unknown Timed Urine Volume Measurement / Unknown 02/20/2020 6:25 PM ROOFING LAYER 02/20/2020 6:33 PM ROOFING LAYER Narrative [facility] ([facility]) - 02/26/2020 8:08 PM ROOFING LAYER Test(s) [id number]-Bvyqosryrfcjtsy, Ur; [id number]-Xslkvzqbqmkp, Ur was developed and its performance characteristics determined by [facility]. It has not been cleared or approved by the Food and Drug Administration. Performed at: 01 - [address] [id number] Mimeographer: Diana Simental MD, Phone: [phone] Rosa Ludwig MD LAB - URINE CHEM ISTRY ORDERABLES [facility] ([facility]) [address] [place] [address] * CATECHOLAMINES URINE FRACTIONATED TIMED (02/20/2020 6:25 PM ROOFING LAYER) Epinephrine 24 Hour Urine 4 Undefined ug/L 02/26/2020 7:07 PM ROOFING LAYER [facility] ([facility]) Epinephrine 24 Hour Urine 8 0 - 18 ug/24 hr 02/26/2020 7:07 PM ROOFING LAYER [facility] ([facility]) Norepinephrine 24 Hour Urine 12 Undefined ug/L 02/26/2020 7:07 PM ROOFING LAYER [facility] ([facility]) Norepinephrine 24 Hour Urine 23 0 - 90 ug/24 hr 02/26/2020 7:07 PM ROOFING LAYER [facility] ([facility]) Dopamine 24 Hour Urine 137 Undefined ug/L 02/26/2020 7:07 PM ROOFING LAYER [facility] ([facility]) Dopamine 24 Hour Urine 266 0 - 575 ug/24 hr 02/26/2020 7:07 PM ROOFING LAYER [facility] ([facility]) Urine TIMED URINE SPECIMEN / Unknown Timed Urine Volume Measurement / Unknown 02/20/2020 6:25 PM ROOFING LAYER 02/20/2020 6:33 PM ROOFING LAYER Narrative [facility] ([facility]) - 02/26/2020 7:07 PM ROOFING LAYER Test(s) [id number]-Hmwfbmtsnhm, Urine; [id number]-Rgfssdabxvtlvp, Ur; [id number]- Dopamine, Urine was developed and its performance characteristics determined by [facility]. It has not been cleared or approved by the Food and Drug Administration. Performed at: [address] [place] [id number] Mimeographer: Diana Simental MD, Phone: [phone] Rosa Ludwig MD LAB - URINE CHEM ISTRY ORDERABLES Performing Organization Address [facility] Co de Phone Number [facility]) [address] [place] [address] * THYROID AB PANEL (TPO AB+THYROGLOB AB) (02/17/2020 6:01 PM ROOFING LAYER) Only the most recent of2 resultswithin the time period is included. Thyroid Peroxidase TPO Antibody <9 0 - 26 IU/mL 02/22/2020 3:08 PM ROOFING LAYER [facility] ([facility]) Thyroglobulin Antibody <1.0 0.0 - 0.9 IU/mL 02/22/2020 3:08 PM [facility] L[facility] Comment:Thyroglobulin Antibo dy measured by [facility] Blood BLOOD SPECIMEN / Unknown Venipuncture / Unknown 02/17/2020 6:01 PM ROOFING LAYER 02/17/2020 6:12 PM ROOFING LAYER Narrative [facility] ([facility]) - 02/22/2020 3:08 PM ROOFING LAYER Performed at: [address] [place] [id number] Mimeographer: Karlos Huffman PhD, Phone: [phone] Rosa Ludwig MD LAB - CHEMISTRY ORDERABLES Performing Organization Address City/[facility] Co de Phone Number [facility]) [address] [place] [address] * THYROID STIMULATING IMMUNOGLOBULIN (TSI) (02/17/2020 6:01 PM ROOFING LAYER) Only the most recent of2 resultswithin the time period is included. Thyroid Stimulating Immunoglobulin <0.10 0.00 - 0.55 IU/L 02/20/2020 8:13 AM ROOFING LAYER [facility] ([facility]) Blood BLOOD SPECIMEN / Unknown Venipuncture / Unknown 02/17/2020 6:01 PM ROOFING LAYER 02/17/2020 6:12 PM ROOFING LAYER Narrative [facility] ([facility]) - 02/20/2020 8:13 AM ROOFING LAYER Performed at: - [address] [id number] Mimeographer: Diana Simental MD, Phone: [phone] Rosa Ludwig MD LAB - CHEMISTRY ORDERABLES Performing Organization Address City/[facility]/ZIP Co de Phone Number [facility] ([facility]) [address] [place] [address] * T3 TOTAL (02/17/2020 6:01 PM ROOFING LAYER) Only the most recent of2 resultswithin the time period is included. Pathologist [facility] T3 Total 0.78 0.35 - 1.93 ng/mL 02/18/2020 11:24 AM ROOFING LAYER [facility] Blood BLOOD SPECIMEN / Unknown Venipuncture / Unknown 02/17/2020 6:01 PM ROOFING LAYER 02/17/2020 6:12 PM ROOFING LAYER Rosa Ludwig MD LAB - CHEMISTRY ORDERABLES Performing Organization Address [facility] Co de Phone Number [facility] [address] [place] [id number] * CALPROTECTIN FECAL (02/12/2020 4:13 PM ROOFING LAYER) Pathologist [facility] Calprotectin Fecal <16 0 - 120 ug/g 02/17/2020 3:08 PM ROOFING LAYER [facility] ([facility]) Comment: Concentration Interpretation Follow-Up <16 - 50 ug/g Normal None >50 -120 ug/g Borderline Re-evaluate in 4-6 weeks >120 ug/g Abnormal Repeat as clinically indicated Stool STOOL SPECIMEN / Unknown Collection / Unknown 02/12/2020 4:13 PM ROOFING LAYER 02/12/2020 4:21 PM ROOFING LAYER Narrative [facility] ([facility]) - 02/17/2020 3:08 PM ROOFING LAYER Performed at: [address], [place] [id number] Mimeographer: Diana Simental MD, Phone: [phone] Rosa Coles MD LAB - BODY FLUID ORDERABLES [facility]) [address] [place] [address] * US KIDNEY W DOPPLER (02/10/2020 2:07 PM ROOFING LAYER) Anatomical Region Laterality Modality Abdomen Ultrasound 02/10/2020 2:13 PM ROOFING LAYER Impressions 02/10/2020 2:22 PM ROOFING LAYER Normal exam. Left renal vein narrowing as it passes between the aorta and SMA was better evaluated on prior CT angiogram. No findings to suggest venous congestion or chronic kidney damage on this exam. *Reading Radiologist: Breana Jimenez on 02/10/2020 at 2:22 PM Narrative 02/10/2020 2:22 PM ROOFING LAYER INDICATION: 19-year-old female with malignant/restricted food intake disorder, possible nutcracker phenomenon left kidney on prior CT COMPARISON: CT angiogram dated 01/27/2020 TECHNIQUE: Grayscale, color and spectral Doppler ultrasound imaging of the kidneys, renal vessels and urinary bladder per department protocol. FINDINGS: Right kidney: 9.8 cm in length The cortical echotexture and thickness are normal. No urinary tract dilation is present. There is no shadowing calculus. The perinephric soft tissues are normal. Left kidney: 9.9 cm in length The cortical echotexture and thickness are normal. No urinary tract dilation is present. There is no shadowing calculus. The perinephric soft tissues are normal. Doppler right kidney: The main renal artery is patent with a peak systolic velocity of 89 cm/s. The arcuate resistive indices are within normal limits at 0.59-0.60. No tardus parvus waveforms are visualized. The main renal vein and visualized portion of the IVC are patent. Doppler left kidney: The main renal artery is patent with a peak systolic velocity of 102 cm/s. The arcuate resistive indices are within normal limits at 0.51-0.59. No tardus parvus waveforms are visualized. The main renal vein and visualized portion of the IVC are patent. Note, area of narrowing of the left renal vein as it passes between the aorta and SMA better evaluated on prior CT exam. No collateral vessels are seen. Urinary bladder: Grossly unremarkable. Procedure Note Breana Jimenez MD - 02/10/2020 INDICATION: 19-year-old female with malignant/restricted food intake disorder, possible nutcracker phenomenon left kidney on prior CT COMPARISON: CT angiogram dated 01/27/2020 TECHNIQUE: Grayscale, color and spectral Doppler ultrasound imaging of the kidneys, renal vessels and urinary bladder per department protocol. FINDINGS: Right kidney: 9.8 cm in length The cortical echotexture and thickness are normal. No urinary tract dilation is present. There is no shadowing calculus. The perinephric soft tissues are normal. Left kidney: 9.9 cm in length The cortical echotexture and thickness are normal. No urinary tract dilation is present. There is no shadowing calculus. The perinephric soft tissues are normal. Doppler right kidney: The main renal artery is patent with a peak systolic velocity of 89 cm/s. The arcuate resistive indices are within normal limits at 0.59-0.60. No tardus parvus waveforms are visualized. The main renal vein and visualized portion of the IVC are patent. Doppler left kidney: The main renal artery is patent with a peak systolic velocity of 102 cm/s. The arcuate resistive indices are within normal limits at 0.51-0.59. No tardus parvus waveforms are visualized. The main renal vein and visualized portion of the IVC are patent. Note, area of narrowing of the left renal vein as it passes between the aorta and SMA better evaluated on prior CT exam. No collateral vessels are seen. Urinary bladder: Grossly unremarkable. IMPRESSION Normal exam. Left renal vein narrowing as it passes between the aorta and SMA was better evaluated on prior CT angiogram. No findings to suggest venous congestion or chronic kidney damage on this exam. *Reading Radiologist: Breana Jimenez on 02/10/2020 at 2:22 PM Rosa Coles MD US ORDERABLES * XR CHEST FOR PICC PLMT (02/09/2020 3:44 PM ROOFING LAYER) Anatomical Region Laterality Modality Chest Radiographic Sandra ging 02/09/2020 3:55 PM ROOFING LAYER Impressions 02/09/2020 3:56 PM ROOFING LAYER Tubes and lines as above. No evidence of acute cardiopulmonary process. *Reading Radiologist: Breana Jimenez on 02/09/2020 at 3:56 PM Narrative 02/09/2020 3:56 PM ROOFING LAYER INDICATION: 19-year-old female with malignant/restricted food intake disorder COMPARISON: None available. TECHNIQUE: Frontal radiograph of the chest. FINDINGS: Enteric tube is seen coursing into the stomach with tip outside the [id number]. Left upper extremity PICC is seen terminating in the right atrium. The heart is normal in size. The lungs are clear. There is no pneumothorax or pleural effusion. The upper abdomen is normal. No bone abnormality is seen. Procedure Note Breana Jimenez MD - 02/09/2020 INDICATION: 19-year-old female with malignant/restricted food intake disorder COMPARISON: None available. TECHNIQUE: Frontal radiograph of the chest. FINDINGS: Enteric tube is seen coursing into the stomach with tip outside the [id number]. Left upper extremity PICC is seen terminating in the right atrium. The heart is normal in size. The lungs are clear. There is no pneumothorax or pleural effusion. The upper abdomen is normal. No bone abnormality is seen. IMPRESSION Tubes and lines as above. No evidence of acute cardiopulmonary process. *Reading Radiologist: Breana Jimenez on 02/09/2020 at 3:56 PM Rosa Coles MD DIAGNOSTIC IMAGIN G ORDERABLES * ALBUMIN BLOOD (02/09/2020 5:40 AM ROOFING LAYER) Albumin 4.1 3.3 - 4.9 gm/dL 02/09/2020 6:55 AM ROOFING LAYER [facility] Blood BLOOD SPECIMEN / Unknown Lab Venipuncture / Unknown 02/09/2020 5:40 AM ROOFING LAYER 02/09/2020 6:07 AM ROOFING LAYER Rosa Coles MD LAB - CHEMISTRY O RDERABLES [facility] [address] [place] [address] * RESPIRATORY PANEL WITH SARS-COV-2 BY PCR ([facility]) (02/07/2020 1:39 AM ROOFING LAYER) Adenovirus PCR Not detected Not detected 02/07/2020 6:15 AM ROOFING LAYER [facility] Coronavirus 229E PCR Not detected Not detected 02/07/2020 6:15 AM ROOFING LAYER [facility] Coronavirus HKU1 PCR Not detected Not detected 02/07/2020 6:15 AM ROOFING LAYER [facility] Coronavirus NL63 PCR Not detected Not detected 02/07/2020 6:15 AM ROOFING LAYER [facility] Coronavirus OC43 PCR Not detected Not detected 02/07/2020 6:15 AM ROOFING LAYER [facility] COVID-19 PCR Not detected Not detected 02/07/2020 6:15 AM ROOFING LAYER [facility] Human Metapneumovirus PCR Not detected Not detected 02/07/2020 6:15 AM [facility]OOFING LAYER [facility] Human Rhinovirus/Enterov irus PCR Not detected Not detected 02/07/2020 6:15 AM [facility]FING LAYER [facility] Influenza A PCR Not detected Not detected 02/07/2020 6:15 AM [facility]ING L[facility]ER [facility] Influenza B PCR Not detected Not detected 02/07/2020 6:15 AM [facility]ING [facility]ER [facility] Parainfluenza Virus 1 PCR Not detected Not detected 02/07/2020 6:15 AM [facility]ING L[facility]ER [facility] Parainfluenza Virus 2 PCR Not detected Not detected 02/07/2020 6:15 AM [facility]ING L[facility]ER [facility] Parainfluenza Virus 3 PCR Not detected Not detected 02/07/2020 6:15 AM [facility]ING L[facility]ER [facility] Parainfluenza Virus 4 PCR Not detected Not detected 02/07/2020 6:15 AM [facility]FING LAYER [facility] Respiratory Syncytial Virus PCR Not detected Not detected 02/07/2020 6:15 AM [facility]FING LAYER [facility] Bordetella parapertussis PCR Not detected Not detected 02/07/2020 6:15 AM [facility]FING LAYER [facility] Bordetella pertussis PCR Not detected Not detected 02/07/2020 6:15 AM [facility]ING L[facility]ER [facility] Chlamydia pneumoniae PCR Not detected Not detected 02/07/2020 6:15 AM [facility]ING L[facility]ER [facility] Mycoplasma pneumoniae PCR Not detected Not detected 02/07/2020 6:15 AM [facility]FING L[facility]ER [facility] Microbiology SPECIMEN FROM NASOPHARYNGEAL STRUCTURE / Unknown Collection / Unknown 02/07/2020 1:39 AM ROOFING LAYER 02/07/2020 1:45 AM ROOFING LAYER Narrative [facility] - 02/07/2020 6:15 AM ROOFING LAYER This nucleic acid amplification assay performance was validated by [facility]. This test has been authorized by the Food and Drug administration (FDA)under an Emergency Use Authorization (EUA). This test has been validated in accordance with the FDA's guidance document Policy for Diagnostic Testing in Laboratories Certified to perform High Complexity Testing under CLIA prior to Emergency Use Authorization for Coronavirus Disease-2019 during the Public Health Emergency issued on April 11, 2019. FDA independent review of this validation is pending. This test is only authorized for the duration of time the declaration that circumstances exist justifying the authorization of emergency use of in vitro diagnostic tests for detection of SARS-CoV-2 virus and/or diagnosis of COVID-19 infection under section 564(b)(1) of the Act, 21 U.S.C 360bbb-3 (b)(1), unless the authorization is terminated or revoked sooner. Fact Sheets for this EUA assay are available upon request. Rosa Ludwig MD LAB - MICROBIOLO GY ORDERABLES [facility] [address] [place] [address], [facility] [phone] * ESTRADIOL (01/14/2020 11:16 AM ROOFING LAYER) [facility] Signature Estradiol 24 pg/mL 01/14/2020 5:30 PM ROOFING LAYER [facility] Blood BLOOD SPECIMEN / Unknown Venipuncture / Unknown 01/14/2020 11:16 AM ROOFING LAYER 01/14/2020 11:21 AM ROOFING LAYER Narrative [facility] - 01/14/2020 5:30 PM ROOFING LAYER Normal Menstruating Females Follicular Phase 21 - 251 pg/mL Midcycle 38 - 649 pg/mL Luteal Phase 21 - 312 pg/mL Postmenopausal Females NOT on HRT <10 - 28 pg/mL Postmenopausal Females on HRT <10 - 144 pg/mL Males 11 - 44 pg/mL Roe Crocker DO LAB - CHEMISTRY ORDERABLES [facility] [address] [place] [address] * VITAMIN D 1,25 DIHYDROXY (01/06/2020 10:36 AM ROOFING LAYER) Calcitriol (1,25 di-OH Vit D) 61.8 19.9 - 79.3 pg/mL 01/08/2020 5:07 PM ROOFING LAYER [facility] Blood BLOOD SPECIMEN / Unknown Lab Venipuncture / Unknown 01/06/2020 10:36 AM ROOFING LAYER 01/06/2020 10:40 AM ROOFING LAYER Narrative [facility] - 01/08/2020 5:07 PM ROOFING LAYER Performed at: [address] [id number] Mimeographer: Diana Simental MD, Phone: [phone] Josafat Betancur DO LAB - CHEMISTRY ORDE CHAMP [facility] [address] [place] [address] * (ABNORMAL) IRON + TIBC PANEL (01/06/2020 10:36 AM ROOFING LAYER) Pathologist [facility] TIBC 390 250 - 450 ug/dL 01/07/2020 4:07 AM ROOFING LAYER [facility] UIBC 375 131 - 425 ug/dL 01/07/2020 4:07 AM ROOFING LAYER [facility] Iron 15(L) 26 - 169 ug/dL 01/07/2020 4:07 AM ROOFING LAYER [facility] Iron Saturation 4(LL) 15 - 55 % 0 4:07 AM ROOFING LAYER [facility] Blood BLOOD SPECIMEN / Unknown Lab Venipuncture / Unknown 01/06/2020 10:36 AM ROOFING LAYER 01/06/2020 10:40 AM ROOFING LAYER Narrative [facility] - 01/07/2020 4:07 AM ROOFING LAYER Performed at: [facility] [address] [place], [place] [id number] Mimeographer: Karlos Huffman PhD, Phone: [phone] Josafat G Betancur DO LAB - CHEMISTRY ORDE RABLES [facility] [address] [place] [address] * EGD (01/05/2020 5:57 AM ROOFING LAYER) Report Endoscopy POC _ Patient Name: Kenyatta Chavez Procedure Date: 01/05/2020 5:57 AM Date of : 2000 Admit Type: Inpatient Age: 19 Gender: Female Race: White Attending MD: Getachew Briones , Order #: [id number] _ Procedure: Upper GI endoscopy Indications: Epigastric abdominal pain Providers: Getachew Briones MD (Attending), Augustine Mckinney MD (Fellow) Referring MD: N/A N/A Medicines: General Anesthesia Complications: No immediate complications. _ Procedure: After obtaining informed consent, the endoscope was passed under direct vision. Throughout the procedure, the patient's blood pressure, pulse, and oxygen saturations were monitored continuously. The Endoscope was introduced through the mouth, and advanced to the third part of duodenum. The upper GI endoscopy was accomplished without difficulty. The patient tolerated the procedure well. Findings: Mildly severe esophagitis with no bleeding was found in the distal esophagus. Biopsies were obtained from the proximal and distal esophagus with cold forceps for histology of suspected eosinophilic esophagitis. The entire examined stomach was normal. Biopsies were taken with a cold forceps for Helicobacter pylori testing using CLOtest. Biopsies were taken with a cold forceps for histology. Localized mildly scalloped mucosa was found in the first portion of the duodenum and in the second portion of the duodenum. Biopsies for histology were taken with a cold forceps for evaluation of celiac disease. Impression: - Mildly severe esophagitis. Biopsied. - Normal stomach. Biopsied. - Scalloped mucosa was found in the duodenum, rule out celiac disease. Biopsied. Recommendation: - Return patient to [facility] for [facility] care. - Resume previous diet. - Continue present medications. - Start Periactin 4 mg QHS - Await pathology results. Procedure Code(s): --- Professional --- 30177, Esophagogastrodu odenoscopy, flexible, transoral; with biopsy, single or multiple --- Technical --- 05653, Esophagogastrodu odenoscopy, flexible, transoral; with biopsy, single or multiple Diagnosis Code(s): --- Professional --- K20.9, Esophagitis, unspecified K31.89, Other diseases of stomach and duodenum R10.13, Epigastric pain --- Technical --- K20.9, Esophagitis, unspecified K31.89, Other diseases of stomach and duodenum R10.13, Epigastric pain CPT copyright 2017 [employer]. All rights reserved. The codes documented in this report are preliminary and upon supply chain design manager review may be revised to meet current compliance requirements. Getachew Briones MD Getachew Briones, 01/06/2020 3:56:06 PM This report has been signed electronically. Number of Addenda: 0 Note Initiated On: 01/05/2020 5:57 AM Procedure Date: 01/05/2020 5:57:32 AM This report has been signed electronically. [facility] 01/05/2020 5:57 AM ROOFING LAYER Getachew Briones MD GI PROCEDURE ORDERAB LES [facility] [address] [place] [address] * ENDOSCOPY, COLON, DIAGNOSTIC (01/05/2020 5:57 AM ROOFING LAYER) Report Endoscopy POC _ Patient Name: Kenyatta Chavez Procedure Date: 01/05/2020 5:57 AM Date of : 2000 Admit Type: Inpatient Age: 19 Gender: Female Race: White Attending MD: Getachew Briones , Order #: [id number] _ Procedure: Colonoscopy Indications: Epigastric abdominal pain, Periumbilical abdominal pain, Abdominal pain in the right lower quadrant, Weight loss Providers: Getachew Briones MD (Attending), Augustine Mckinney MD (Fellow) Referring MD: N/A N/A Medicines: General Anesthesia Complications: No immediate complications. _ Procedure: After I obtained informed consent, the scope was passed under direct vision. Throughout the procedure, the patient's blood pressure, pulse, and oxygen saturations were monitored continuously. The Colonoscope was introduced through the anus and advanced to the terminal ileum. The colonoscopy was performed without difficulty. The patient tolerated the procedure well. The quality of the bowel preparation was good. Findings: The perianal and digital rectal examinations were normal. The terminal ileum appeared normal. Biopsies were taken with a cold forceps for histology. The colon (entire examined portion) appeared normal. Biopsies were taken with a cold forceps for histology. Impression: - The examined portion of the ileum was normal. Biopsied. - The entire examined colon is normal. Biopsied. Recommendation: - Return patient to [facility] for ongoing care. - Advance diet as tolerated. - Continue present medications. - Await pathology results. Procedure Code(s): --- Professional --- 07394, Colonoscopy, flexible; with biopsy, single or multiple --- Technical --- 00151, Colonoscopy, flexible; with biopsy, single or multiple Diagnosis Code(s): --- Professional --- R10.13, Epigastric pain R10.33, Periumbilical pain R10.31, Right lower quadrant pain R63.4, Abnormal weight loss --- Technical --- R10.13, Epigastric pain R10.33, Periumbilical pain R10.31, Right lower quadrant pain R63.4, Abnormal weight loss CPT copyright 2017 [employer]. All rights reserved. The codes documented in this report are preliminary and upon supply chain design manager review may be revised to meet current compliance requirements. Getachew Briones MD Getachew Briones, 01/18/2020 1:35:26 PM This report has been signed electronically. Number of Addenda: 0 Note Initiated On: 01/05/2020 5:57 AM Procedure Date: 01/05/2020 5:57:00 AM This report has been signed electronically. [facility] 01/05/2020 5:57 AM ROOFING LAYER Getachew Briones MD GI PROCEDURE ORDERAB LES [facility] [address] [facility] [place] [address] * CULTURE STOOL+ E COLI SHIGA-LIKE TOXIN (01/03/2020 5:10 PM ROOFING LAYER) Culture No growth Salmonella, Shigella, Campylobacter, Escherichia coli O157:h7 or Yersinia JACQUELINE 01/06/2020 12:57 PM ROOFING LAYER [facility] Culture Negative Escherichia coli Shiga-like toxin (NM) JACQUELINE 01/06/2020 12:57 PM ROOFING LAYER [facility] Stool STOOL SPECIMEN / Unknown Collection / Unknown 01/03/2020 5:10 PM ROOFING LAYER 01/03/2020 6:13 PM ROOFING LAYER Louise Mason MD LAB - MICROBIOLOGY O RDERABLES Performing Organization Address City/[facility]/ZIP Co de Phone Number [facility] [address] [place], [place] [address] [email or web address]] [phone] * OCCULT BLOOD FECES (01/03/2020 5:10 PM ROOFING LAYER) Occult Blood Negative Negative 01/03/2020 6:09 PM ROOFING LAYER [facility] Stool STOOL SPECIMEN / Unknown Collection / Unknown 01/03/2020 5:10 PM ROOFING LAYER 01/03/2020 5:47 PM ROOFING LAYER Roe Crocker DO LAB - BODY FLUI D ORDERABLES Performing Organization Address City/[facility] Co de Phone Number [facility] [address] [place] [address] * US ABD FOR APPENDICITIS (01/02/2020 6:06 PM ROOFING LAYER) Anatomical Region Laterality Modality Abdomen Ultrasound 01/03/2020 7:52 AM ROOFING LAYER Impressions 01/03/2020 8:09 AM ROOFING LAYER Findings consistent with a Category 1 study. Normal appendix. Category 1: Normal appendix Category 2: Appendix not fully visualized without secondary signs Category 3: Appendix not fully visualized with secondary signs Category 4: Appendicitis *Reading Radiologist: Breana Jimenez on 01/03/2020 at 8:09 AM Narrative 01/03/2020 8:09 AM ROOFING LAYER INDICATION: 19-year-old female with lower abdominal pain COMPARISON: None available. TECHNIQUE: Ultrasound of the RLQ and surrounding areas was performed including graded compression cine imaging. FINDINGS: The appendix is normal in size and sonographic appearance. There is no peritoneal fluid, abnormal echogenic mesenteric fat or mass. No abnormal lymph nodes are identified. Procedure Note Breana Jimenez MD - 01/03/2020 INDICATION: 19-year-old female with lower abdominal pain COMPARISON: None available. TECHNIQUE: Ultrasound of the RLQ and surrounding areas was performed including graded compression cine imaging. FINDINGS: The appendix is normal in size and sonographic appearance. There is no peritoneal fluid, abnormal echogenic mesenteric fat or mass. No abnormal lymph nodes are identified. IMPRESSION Findings consistent with a Category 1 study. Normal appendix. Category 1: Normal appendix Category 2: Appendix not fully visualized without secondary signs Category 3: Appendix not fully visualized with secondary signs Category 4: Appendicitis *Reading Radiologist: Breana Jimenez on 01/03/2020 at 8:09 AM Filippo Quijano MD US ORDERABLES * TISSUE TRANSGLUTAMINASE AB IGA (01/02/2020 1:54 PM ROOFING LAYER) Only the most recent of2 resultswithin the time period is included. TTG Antibody IgA <2 0 - 3 U/mL 01/05/2020 2:09 PM ROOFING LAYER [facility] Comment: Negative 0 - 3 Weak Positive 4 - 10 Positive >10 Tissue Transglutaminase (tTG) has been identified as the endomysial antigen. Studies have demonstr- ated that endomysial IgA antibodies have over 99% specificity for gluten sensitive enteropathy. Blood BLOOD SPECIMEN / Unknown Venipuncture / Unknown 01/02/2020 1:54 PM ROOFING LAYER 01/02/2020 1:59 PM ROOFING LAYER Narrative [facility] - 01/05/2020 2:09 PM ROOFING LAYER Performed at: - [facility] [id number] [place], [place] [id number] Mimeographer: Karlos Huffman PhD, Phone: [phone] Danielle Ramirez MD LAB - SEROLO GY ORDERABLES [facility] [address] [place] [address] * IGA BLOOD (01/02/2020 1:54 PM ROOFING LAYER) Only the most recent of2 resultswithin the time period is included. IgA 304 65 - 421 mg/dL 01/02/2020 2:31 PM ROOFING LAYER [facility] Blood BLOOD SPECIMEN / Unknown Venipuncture / Unknown 01/02/2020 1:54 PM ROOFING LAYER 01/02/2020 2:00 PM ROOFING LAYER Danielle Ramirez MD LAB - CHEMIS TRY ORDERABLES Performing Organization Address City/[facility]/ZIP Co de Phone Number [facility] [address] [place] [address] * (ABNORMAL) T3 FREE (03/23/2017 6:57 AM ROOFING LAYER) Pathologist [facility] T3 Free 4.03(H) 2.18 - 3.98 pg/mL 03/23/2017 12:02 PM ROOFING LAYER [facility] Blood BLOOD SPECIMEN / Unknown Lab Venipuncture / Unknown 03/23/2017 6:57 AM ROOFING LAYER 03/23/2017 7:49 AM ROOFING LAYER Aurelia Madison MD LAB - CHEMISTRY [place] Performing Organization Address [facility] Co de Phone Number [facility] [address] [place] [address] * HCG URINE QUALITATIVE - POCT (IP) BEAKER (03/21/2017 12:31 AM ROOFING LAYER) Pathologist [facility] HCG Qual Urine Negative Negative [facility] POCT TESTING QC Verified Yes Yes [facility] PO CT TESTING Urine URINE / Unknown 03/21/2017 1 2:31 AM ROOFING LAYER Rosa Moise DO LAB - POINT OF CARE ORDERABLES Performing Organization Address [facility] Co de Phone Number [facility] POCT TESTING [address] [place], [place] [id number] [place] [address] Care Teams Tip Inserter Relationship Specialty Start Date End Date Ronel Thornton DO [address] [place] [id number] PCP - General Family Medicine 03/18/23 Ronel Thornton DO [address] [place] [address] PCP - Attributed-[facility] 04/12/23
--- OUTSIDE RECORDS SUMMARY | 2024-03-28 03:06 | XMS_ITS | Clinical Summary ---
Author Organization [facility] Address [address] [place] [address] Phone Care Team Providers Care Texturing Machine Fixer Name Role Phone Mellissa Jiménez MD Primary Care Provider + Allergies No known active allergies Active Problems Problem Noted Date Diagnosed Date Drug overdose, intentional 04/20/2023 Seizures 04/20/2023 Acute respiratory failure 04/20/2023 Encounters Date Type Department Care Team Description 03/11/2024 External Device Data [facility] Provider, Abstract 03/05/2024 External Device Data [facility] Provider, Abstract 01/14/2024 External Device Data [facility] Provider, Abstract from Last 3 Months Social History Tobacco Use Types Packs/Day Years Used Date Smoking Tobacco: Never Assessed Comments Unknown Sex and Gender Information Value Date Recorded Sex Assigned at Not on file Legal Sex Female 10:44 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 Gender Identity Not on file Sexual Orientation Not on file Last Filed Vital Signs Vital Sign Reading Time Taken Comments Blood Pressure 106/69 04/21/2023 1:00 PM CDT Pulse 104 04/21/2023 1:00 PM CDT Temperature 37.3 C (99.2 F) 04/21/2023 8:00 AM CDT Respiratory Rate 30 04/21/2023 1:00 PM CDT Oxygen Saturation 98% 04/21/2023 1:00 PM CDT Inhaled Oxygen Concentration - - Weight 52.2 kg (115 lb) 04/20/2023 2:30 AM SENIOR ESCROW OFFICER Height 152.4 cm (5') 04/20/2023 2:30 AM SENIOR ESCROW OFFICER Body Mass Index 22.46 04/20/2023 2:30 AM SENIOR ESCROW OFFICER Plan of Treatment Health Maintenance Due Date Last Done Comments CHLAMYDIA SCREENING (ANNUAL) 11-24 YEARS 2013 HPV VACCINES (1 - 3-dose series) 2017 CERVICAL CANCER SCREENING 08/17/2023 INFLUENZA VACCINE (#1) 2023 01/25/2022, 2020 COVID-19 Vaccine (3 - 2023- season) 2023 07/26/2020, 07/03/2020 DTAP/TDAP/TD VACCINES (7 - Td or Tdap) 12/16/2023 12/15/2013, 07/08/2007, 02/22/2004, Additional history exists PNEUMOCOCCAL VACCINE 0-64 YEARS Aged Out 02/22/2003, 2002, 2002 No longer eligible based on patient's age to complete this topic HEPATITIS B VACCINES Completed 02/22/2004, 06/09/2003, 02/22/2003, Additional history exists Insurance [facility] [id number] [place] [address] Advance Directives For more information, please contact: [phone] * Full Code (Latest Code Status on File) Date Activated Date Inactivated Comments 04/20/2023 2:32 AM 04/21/2023 4:11 PM Care Teams Texturing Machine Fixer Relationship Specialty Start Date End Date Mellissa Jiménez MD [address] [place] [id number] PCP - General Family Practice 04/20/23
[2024-03-28 03:07] VITALS: BP 140/92; PULSE 99; RESP 20; TEMP 36.4; O2SAT 96
--- NOTE | 2024-03-28 03:25 | ED_ITS ---
HPI - Anxiety General Chief Complaint: Anxiety <Camille Meza MD - Last Filed: 03/28/24 06:15> Stated Complaint: Anxiety <Camille Meza MD - Last Filed: 03/28/24 06:15> Time Seen by Provider: 03/28/24 03:20 <Camille Meza MD - Last Filed: 03/28/24 06:15> History of Present Illness HPI narrative: Patient with history of anxiety and panic attacks was on anxiety medications but stopped taking it months ago because she does not like the way it makes her feel, she is now having a panic attack. <Camille Meza MD - Last Filed: 03/28/24 06:15> Related Data Home Medications: Home Medications ?Medication ?Instructions ?Recorded ?Confirmed ?Last Taken ?Type clonazepam 1 mg tablet 1 tablet PO TID 07/17/21 07/18/21 Unknown History cyproheptadine 4 mg tablet See Rx Instructions .Route .COMPLEX 07/17/21 07/18/21 Unknown History fluoxetine 20 mg capsule 20 cap PO DAILY 07/17/21 07/18/21 Unknown History gabapentin 300 mg capsule 300 cap PO TID 07/17/21 07/18/21 Unknown History hydroxyzine HCl 10 mg tablet 10 tablet PO TID 07/17/21 07/18/21 Unknown History olanzapine 15 mg tablet 15 tablet PO DAILY 07/17/21 07/18/21 Unknown History quetiapine 50 mg tablet 1 tablet PO BID 07/17/21 07/18/21 Unknown History ondansetron HCl 8 mg tablet 8 mg PO Q8H 07/20/21 Unknown History <Camille Meza MD - Last Filed: 03/28/24 06:15> Allergies/Adverse Reactions: Allergies Allergy/AdvReac Type Severity Reaction Status Date / Time No Known Allergies Allergy Verified 03/28/24 03:10 <Camille Meza MD - Last Filed: 03/28/24 06:15> Review of Systems 2 Review of Systems: All systems reviewed & are unremarkable except as noted in HPI and below <Camille Meza MD - Last Filed: 03/28/24 06:15> PMFSH Past Medical History Medical History: Medical History Anxiety Depression Drug withdrawal seizure History of eating disorder <Camille Meza MD - Last Filed: 03/28/24 06:15> Family History Family History: Family History Grandparent History of alcoholism Depression Mother History of alcoholism Hypertension Depression <Camille Meza MD - Last Filed: 03/28/24 06:15> Social History Social History: Social History Smoking status: Never smoker Alcohol intake: never Substance use: former Substance use type: marijuana and prescription drug Living arrangements: with roommate(s) Occupation/Education: unemployed Additional occupation/education comments: not currently working or in school Gender identity (if verbalized by the patient): Female <Camille Meza MD - Last Filed: 03/28/24 06:15> Exam 2 Narrative: EXAMINATION OF ORGAN SYSTEMS/BODY AREAS: Constitutional: Vital signs per nursing GENERAL: Appears extremely anxious HEAD: Normal with no signs of head trauma. EYES: EOMI, conjunctiva normal ENT: Hearing grossly intact LUNGS: Hyperventilating HEART: [Regular rate and rhythm] ABD: Nondistended EXT: Normal range of motion SKIN: [No rashes or lesions.] NEURO: [Alert and oriented x 3. No gross focal sensory or strength deficits.] PSYCH: Anxious affect <Camille Meza MD - Last Filed: 03/28/24 06:15> Course Course Emergency Course: Anxiety improved with Ativan and droperidol. Son has some occasional anxiousness. No SI. Does not wish to talk to a signal worker. She will be discharged with hydroxyzine. <Josafat Bran MD - Last Filed: 03/28/24 11:14> Vital Signs Vital signs: Vital Signs Temperature 97.6 F 03/28/24 03:07 Pulse Rate 99 03/28/24 03:07 Respiratory Rate 20 03/28/24 03:07 Blood Pressure 140/92 H 03/28/24 03:07 Pulse Oximetry 96 03/28/24 03:07 Oxygen Delivery Room Air 03/28/24 03:07 Temperature 97.6 F 03/28/24 03:07 Pulse Rate 98 03/28/24 09:21 Respiratory Rate 14 03/28/24 09:21 Blood Pressure 129/88 03/28/24 09:21 Pulse Oximetry 98 03/28/24 09:21 Oxygen Delivery Room Air 03/28/24 03:07 <Camille Meza MD - Last Filed: 03/28/24 06:15> Vital Signs Temperature 97.6 F 03/28/24 03:07 Pulse Rate 99 03/28/24 03:07 Respiratory Rate 20 03/28/24 03:07 Blood Pressure 140/92 H 03/28/24 03:07 Pulse Oximetry 96 03/28/24 03:07 Oxygen Delivery Room Air 03/28/24 03:07 Temperature 97.6 F 03/28/24 03:07 Pulse Rate 98 03/28/24 09:21 Respiratory Rate 14 03/28/24 09:21 Blood Pressure 129/88 03/28/24 09:21 Pulse Oximetry 98 03/28/24 09:21 Oxygen Delivery Room Air 03/28/24 03:07 <Josafat Bran MD - Last Filed: 03/28/24 11:14> MDM - Anxiety MDM Narrative Medical decision making narrative: Patient with history of anxiety/panic attacks presenting here with symptoms consistent with panic attack. On exam patient is [hyperventilating and is quite tearful and anxious]. Ativan given but patient still rocking back and forth, throwing up, asking for something else. Droperidol given after which she became much calmer but was still very anxious and asking for more. At this point I do feel she may need inpt hospitalization for her anxiety. Will obtain psych workup. // Patient on re-evaluation has finally settled down and fallen asleep. Signed out to oncoming ER physician. <Camille Meza MD - Last Filed: 03/28/24 06:15> Lab Data Result diagrams: 03/28/24 05:50 03/28/24 05:50 <Camille Meza MD - Last Filed: 03/28/24 06:15> Labs: Lab Results 03/28/24 03/28/24 03/28/24 Range/Units 05:50 07:22 07:24 WBC 10.4 H (4.5-10.0) K/mm3 RBC 4.30 (4.2-5.4) M/mm3 Hgb 13.3 D (12.0-15.0) g/dL Hct 38.0 (37.0-47.0) % MCV 88.4 (80-100) fl MCH 30.9 (26-34) pg MCHC 35.0 (32-36) g/dl RDW 12.5 (11.5-14.5) % Plt Count 286 (150-375) k/mm3 MPV 10.3 (7.4-10.4) fl Immature Gran % (Auto) 0.2 (0-0.5) % Neut % (Auto) 84.5 H (45.5-73.1) % Lymph % (Auto) 8.6 L (18.3-44.2) % [place] % (Auto) 6.4 (2.6-8.5) % Eos % (Auto) 0.0 (0-4.4) % Baso % (Auto) 0.3 (0.2-1.2) % Lymph # (Auto) 0.90 (0.9-3.2) K/mm3 [place] # (Auto) 0.7 H (0.1-0.6) K/mm3 Eos # (Auto) 0.0 (0-0.3) K/mm3 Baso # (Auto) 0.0 (0.0-0.1) K/mm3 Abs Immat Gran (auto) 0.02 (0.00-0.031) K/mm3 Absolute Neuts (auto) 8.8 H (1.3-6.7) K/mm3 Absolute Nucleated RBC 0.000 (0.0-0.012) K/mm3 Nucleated RBC % 0.0 (0.0-0.2) % Sodium 138 (137-145) mmol/L Potassium 3.3 L (3.4-5.0) mmol/L Chloride 100 (98-107) mmol/L Carbon Dioxide 17 L (22-30) mmol/L Anion Gap 21 H (4-12) mmol/L BUN 15 (7-17) mg/dL Creatinine 0.83 (0.7-1.0) mg/dL Estim Creat Clear Calc Not Reportable Estimated GFR > 60 (59 - ) Glucose 133 H (65-110) mg/dL Calcium 9.5 (8.4-10.2) mg/dL Total Bilirubin 0.9 (0.2-1.3) mg/dL AST 24 (14-36) U/L ALT 15 (6-35) U/L Alkaline Phosphatase 80 (38-126) U/L Total Protein 8.0 (6.3-8.2) g/dL Albumin 5.1 (3.5-5.1) g/dL TSH 2.160 (0.465-4.680) uIU/mL Urine Color Yellow (Yellow) Urine Appearance Clear (Clear) Urine pH 5.5 (5.0-9.0) Ur Specific [place] 1.031 (1.001-1.035) Urine Protein 1+ H (Negative) mg/dL Urine Glucose (UA) Negative (Negative) mg/dL Urine Ketones 4+ H (Negative) mg/dL Ur Blood (Man) Trace (Negative) Urine Nitrate Negative (Negative) Urine Bilirubin Negative (Negative) Urine Urobilinogen 1.0 (<2.0) mg/dL Add Ur Microanalysis Reviewed Leukocyte Esterase Rfl Negative (Negative) CHASIDY/UL Urine RBC 0-2 (0-2) /hpf Urine WBC 0-5 (0-3) /hpf Ur Squamous Epith Cells Occasional (Few) /hpf Urine Bacteria None seen /hpf Urine Casts 3-5 POC Urine HCG, Qual Negative (Negative) Salicylates < 1.0 L (2-20) mg/dL Urine Opiates Screen Negative (Negative) Urine Methadone Screen Negative (Negative) Acetaminophen < 10 L (10-30) ug/mL Ur Barbiturates Screen Negative (Negative) Ur Phencyclidine Scrn Negative (Negative) Ur Amphetamine Screen Negative (Negative) U Benzodiazepines Scrn Negative (Negative) Urine Cocaine Screen Negative (Negative) U Cannabinoids Screen Positive A (Negative) Ethyl Alcohol < 10 (<10) mg/dL <Camille Meza MD - Last Filed: 03/28/24 06:15> Lab Results 03/28/24 03/28/24 03/28/24 Range/Units 05:50 07:22 07:24 WBC 10.4 H (4.5-10.0) K/mm3 RBC 4.30 (4.2-5.4) M/mm3 Hgb 13.3 D (12.0-15.0) g/dL Hct 38.0 (37.0-47.0) % MCV 88.4 (80-100) fl MCH 30.9 (26-34) pg MCHC 35.0 (32-36) g/dl RDW 12.5 (11.5-14.5) % Plt Count 286 (150-375) k/mm3 MPV 10.3 (7.4-10.4) fl Immature Gran % (Auto) 0.2 (0-0.5) % Neut % (Auto) 84.5 H (45.5-73.1) % Lymph % (Auto) 8.6 L (18.3-44.2) % [place] % (Auto) 6.4 (2.6-8.5) % Eos % (Auto) 0.0 (0-4.4) % Baso % (Auto) 0.3 (0.2-1.2) % Lymph # (Auto) 0.90 (0.9-3.2) K/mm3 [place] # (Auto) 0.7 H (0.1-0.6) K/mm3 Eos # (Auto) 0.0 (0-0.3) K/mm3 Baso # (Auto) 0.0 (0.0-0.1) K/mm3 Abs Immat Gran (auto) 0.02 (0.00-0.031) K/mm3 Absolute Neuts (auto) 8.8 H (1.3-6.7) K/mm3 Absolute Nucleated RBC 0.000 (0.0-0.012) K/mm3 Nucleated RBC % 0.0 (0.0-0.2) % Sodium 138 (137-145) mmol/L Potassium 3.3 L (3.4-5.0) mmol/L Chloride 100 (98-107) mmol/L Carbon Dioxide 17 L (22-30) mmol/L Anion Gap 21 H (4-12) mmol/L BUN 15 (7-17) mg/dL Creatinine 0.83 (0.7-1.0) mg/dL Estim Creat Clear Calc Not Reportable Estimated GFR > 60 (59 - ) Glucose 133 H (65-110) mg/dL Calcium 9.5 (8.4-10.2) mg/dL Total Bilirubin 0.9 (0.2-1.3) mg/dL AST 24 (14-36) U/L ALT 15 (6-35) U/L Alkaline Phosphatase 80 (38-126) U/L Total Protein 8.0 (6.3-8.2) g/dL Albumin 5.1 (3.5-5.1) g/dL TSH 2.160 (0.465-4.680) uIU/mL Urine Color Yellow (Yellow) Urine Appearance Clear (Clear) Urine pH 5.5 (5.0-9.0) Ur Specific [place] 1.031 (1.001-1.035) Urine Protein 1+ H (Negative) mg/dL Urine Glucose (UA) Negative (Negative) mg/dL Urine Ketones 4+ H (Negative) mg/dL Ur Blood (Man) Trace (Negative) Urine Nitrate Negative (Negative) Urine Bilirubin Negative (Negative) Urine Urobilinogen 1.0 (<2.0) mg/dL Add Ur Microanalysis Reviewed Leukocyte Esterase Rfl Negative (Negative) CHASIDY/UL Urine RBC 0-2 (0-2) /hpf Urine WBC 0-5 (0-3) /hpf Ur Squamous Epith Cells Occasional (Few) /hpf Urine Bacteria None seen /hpf Urine Casts 3-5 POC Urine HCG, Qual Negative (Negative) Salicylates < 1.0 L (2-20) mg/dL Urine Opiates Screen Negative (Negative) Urine Methadone Screen Negative (Negative) Acetaminophen < 10 L (10-30) ug/mL Ur Barbiturates Screen Negative (Negative) Ur Phencyclidine Scrn Negative (Negative) Ur Amphetamine Screen Negative (Negative) U Benzodiazepines Scrn Negative (Negative) Urine Cocaine Screen Negative (Negative) U Cannabinoids Screen Positive A (Negative) Ethyl Alcohol < 10 (<10) mg/dL <Josafat Bran MD - Last Filed: 03/28/24 11:14> Discharge Plan Discharge Clinical Impression: Acute anxiety, Hyperventilation, Panic disorder <Camille Meza MD - Last Filed: 03/28/24 06:15> Patient Disposition: Home, Self-Care <Camille Meza MD - Last Filed: 03/28/24 06:15> Condition: Stable <Camille Meza MD - Last Filed: 03/28/24 06:15> Instructions: Anxiety (ED) <Camille Meza MD - Last Filed: 03/28/24 06:15> Additional Instructions: Return the ER if you having thoughts of harming herself or others, you develop chest pain and shortness of breath, or have additional concerns. Palate <Camille Meza MD - Last Filed: 03/28/24 06:15> Patient Language: Luxembourgish <Camille Meza MD - Last Filed: 03/28/24 06:15> Prescriptions: New hydroxyzine pamoate [Vistaril] 25 mg capsule 25 mg PO TID PRN (Reason: anxiety) Qty: 20 0RF No Action clonazepam 1 mg tablet 1 tablet PO TID cyproheptadine 4 mg tablet See Rx Instructions .ROUTE .COMPLEX Rx Instructions: as prescribed gabapentin 300 mg capsule 300 cap PO TID hydroxyzine HCl 10 mg tablet 10 tablet PO TID fluoxetine 20 mg capsule 20 cap PO DAILY quetiapine 50 mg tablet 1 tablet PO BID olanzapine 15 mg tablet 15 tablet PO DAILY ondansetron HCl 8 mg tablet 8 mg PO Q8H <Camille Meza MD - Last Filed: 03/28/24 06:15> Follow-up/Referrals: [facility] [Outside] Tino,Mellissa Ferraro MD [Primary Care Provider] - 1 Week <Camille Meza MD - Last Filed: 03/28/24 06:15>
--- NOTE | 2024-03-28 03:33 | PC.NURSE ---
Patient states she will vomit the oral ativan. EDP Dr. Meza made aware and order changed. See MAR.
[2024-03-28] MEDS: LORazepam INJ (*CRX) 2 MG/ML VIAL 1 MG IM (03:34)
[2024-03-28 03:35] VITALS: BP 129/79; PULSE 65; RESP 18; O2SAT 96
--- OUTSIDE RECORDS SUMMARY | 2024-03-28 03:36 | XMS_ITS | Clinical Summary ---
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 This disclosure is being madepursuant to the Care Everywhere program and may not contain all information available regarding this patient. Last updated 17.[facility] [employer] Allergies No known active allergies Medications * [...] 01/18/2020 Assessment & Plan (01/08/2021 3:06 PM PILLOW CLEANER): Assessment: Major depressive disorder, generalized anxiety disorder and substance abuse disorder. Plan: - klonopin and neurontin are all habit forming, concerns they are addictive, plan to discuss meterman goal of weaning as outpatient - must stop all alcohol and MJ - Increased Prozac to 40 - Increased zyprexa to 15 - Melatonin 6mg QHS for sleep - avoid narcotics - taper off zyprexa as outpatient per psychiatry recs Assessment & Plan (01/07/2021 4:50 PM PILLOW CLEANER): Assessment: Major depressive disorder, generalized anxiety disorder and substance abuse disorder. Plan: - klonopin and neurontin are all habit forming, concerns they are addictive, plan to discuss meterman goal of weaning as outpatient - must stop all alcohol and MJ - Increased Prozac to 40 - Increased zyprexa to 15 - Melatonin 6mg QHS for sleep - avoid narcotics - taper off zyprexa as outpatient per psychiatry recs Assessment & Plan (01/06/2021 5:55 PM PILLOW CLEANER): Assessment: Major depressive disorder, generalized anxiety disorder and substance abuse disorder. Plan: - klonopin and neurontin are all habit forming, concerns they are addictive, plan to discuss penitentiary goal of weaning as outpatient - must [...] slowly. Assessment & Plan (04/07/2020 6:45 PM PILLOW CLEANER): Assessment: Hx of major depressive disorder and generalized anxiety disorder. Pt has been seen by psychiatry and psychology, now improved since starting/optimizing zyprexa QHS, clonazepam TID, and prozac QD. Plan: - Prozac 30 mg QD (dose of 30 mg started on 03/09/20, Prozac initially began 02/07) - Zyprexa 5 mg QHS - Klonopin 0.5mg TID Assessment & Plan (04/06/2020 3:54 PM PILLOW CLEANER): Assessment: Hx of major depressive disorder and [...] TID Assessment & Plan (04/05/2020 10:49 AM PILLOW CLEANER): Assessment: Hx of major depressive disorder and [...] TID Assessment & Plan (04/04/2020 10:23 AM PILLOW CLEANER): Assessment: Hx of major depressive disorder and [...] TID Assessment & Plan (04/03/2020 6:30 PM PILLOW CLEANER): Assessment: Hx of major depressive disorder and [...] TID Assessment & Plan (04/01/2020 11:15 AM PILLOW CLEANER): Assessment: Hx of major depressive disorder and [...] dose) Assessment & Plan (03/31/2020 10:07 AM PILLOW CLEANER): Assessment: Hx of major depressive disorder and generalized anxiety disorder. Pt seen by psychiatry on admission and was started elavil, but continued to have anxiety. Elavil was discontinued due to persistent tachycardia and hypotension. [facility], she was started on zyprexa [...] dose) Assessment & Plan (03/30/2020 2:24 PM PILLOW CLEANER): Assessment: Hx of major depressive disorder and [...] dose) Assessment & Plan (03/29/2020 6:50 AM PILLOW CLEANER): Assessment: Hx of major depressive disorder and [...] dose) Assessment & Plan (03/27/2020 10:30 AM PILLOW CLEANER): Assessment: Hx of major depressive disorder and [...] dose) Assessment & Plan (03/26/2020 11:15 AM PILLOW CLEANER): Assessment: Hx of major depressive disorder and [...] dose) Assessment & Plan (03/25/2020 8:58 AM PILLOW CLEANER): Assessment: Hx of major depressive disorder and generalized anxiety disorder. Pt seen by psychiatry on admission and was started elavil, but continued to have anxiety. Elavil was discontinued due to persistent tachycardia and hypotension. Based [facility], she was started on zyprexa [...] dose) Assessment & Plan (03/24/2020 6:44 AM PILLOW CLEANER): Assessment: Hx of major depressive disorder and [...] dose) Assessment & Plan (03/23/2020 12:19 PM PILLOW CLEANER): Assessment: Hx of major depressive disorder and [...] dose) Assessment & Plan (03/22/2020 10:47 AM PILLOW CLEANER): Assessment: Hx of major depressive disorder and [...] recommendations) Assessment & Plan (03/21/2020 3:11 PM PILLOW CLEANER): Assessment: Hx of major depressive disorder and [...] mg. Assessment & Plan (03/20/2020 10:31 AM PILLOW CLEANER): Assessment: Hx of major depressive disorder and [...] 03/21. Assessment & Plan (03/19/2020 10:38 AM PILLOW CLEANER): Assessment: Hx of major depressive disorder and [...] withdrawal Assessment & Plan (03/18/2020 12:58 PM PILLOW CLEANER): Assessment: Hx of major depressive disorder and [...] anxiety Assessment & Plan (03/17/2020 10:33 AM PILLOW CLEANER): Assessment: Hx of major depressive disorder and [...] appreciated Assessment & Plan (03/16/2020 2:24 PM PILLOW CLEANER): Assessment: Hx of major depressive disorder and [...] recommendations Assessment & Plan (03/15/2020 11:11 AM PILLOW CLEANER): Assessment: Hx of major depressive disorder and [...] anxiety Assessment & Plan (03/14/2020 6:28 AM PILLOW CLEANER): Assessment: Hx of major depressive disorder and [...] anxiety Assessment & Plan (03/13/2020 6:28 AM PILLOW CLEANER): Assessment: Hx of major depressive disorder and [...] anxiety Assessment & Plan (03/12/2020 11:35 AM PILLOW CLEANER): Assessment: Hx of major depressive disorder and [...] anxiety Assessment & Plan (03/11/2020 12:43 PM PILLOW CLEANER): Assessment: Hx of major depressive disorder and [...] anxiety Assessment & Plan (03/10/2020 6:11 AM PILLOW CLEANER): Assessment: Hx of major depressive disorder and [...] anxiety Assessment & Plan (03/09/2020 6:24 AM PILLOW CLEANER): Assessment: Hx of major depressive disorder and [...] anxiety Assessment & Plan (03/08/2020 10:51 AM PILLOW CLEANER): Assessment: Hx of major depressive disorder and [...] anxiety Assessment & Plan (03/07/2020 9:15 AM PILLOW CLEANER): Assessment: Hx of major depressive disorder and [...] -Develop daily schedule with assistance of child and adolescent psychiatrist-Alma Assessment & Plan (03/06/2020 10:09 AM PILLOW CLEANER): Assessment: Hx of major depressive disorder and [...] anxiety Assessment & Plan (03/05/2020 9:56 AM PILLOW CLEANER): Assessment: Hx of major depressive disorder and [...] anxiety Assessment & Plan (03/04/2020 12:58 PM PILLOW CLEANER): Assessment: Hx of major depressive disorder and [...] anxiety Assessment & Plan (03/03/2020 3:16 PM PILLOW CLEANER): Assessment: Hx of major depressive disorder and [...] anxiety Assessment & Plan (03/01/2020 12:04 PM PILLOW CLEANER): Assessment: Hx of major depressive disorder and [...] anxiety Assessment & Plan (02/29/2020 12:53 PM PILLOW CLEANER): Assessment: Hx of major depressive disorder and [...] anxiety Assessment & Plan (02/28/2020 9:22 AM PILLOW CLEANER): Assessment: Hx of major depressive disorder and [...] anxiety Assessment & Plan (02/27/2020 10:27 AM PILLOW CLEANER): Assessment: Hx of major depressive disorder and [...] negative Assessment & Plan (02/26/2020 11:12 AM PILLOW CLEANER): Assessment: Hx of major depressive disorder and [...] pending Assessment & Plan (02/25/2020 9:33 AM PILLOW CLEANER): Assessment: Hx of major depressive disorder and [...] pending Assessment & Plan (02/24/2020 6:51 AM PILLOW CLEANER): Assessment: Hx of major depressive disorder and [...] pending Assessment & Plan (02/23/2020 10:19 AM PILLOW CLEANER): Assessment: Hx of major depressive disorder and [...] pending Assessment & Plan (02/22/2020 11:07 AM PILLOW CLEANER): Assessment: Hx of major depressive disorder and [...] QHS Assessment & Plan (02/21/2020 10:54 AM PILLOW CLEANER): Assessment: History of major depressive disorder and [...] tablet Assessment & Plan (02/20/2020 11:33 AM PILLOW CLEANER): Assessment: History of major depressive disorder and [...] tablet Assessment & Plan (02/19/2020 3:05 PM PILLOW CLEANER): Assessment: History of major depressive disorder and [...] tablet Assessment & Plan (02/18/2020 10:13 AM PILLOW CLEANER): Assessment: History of major depressive disorder and [...] tablet Assessment & Plan (02/17/2020 12:26 PM PILLOW CLEANER): Assessment: History of major depressive disorder and [...] tablet Assessment & Plan (02/16/2020 1:14 PM PILLOW CLEANER): Assessment: History of major depressive disorder and [...] tablet Assessment & Plan (02/15/2020 12:31 PM PILLOW CLEANER): Assessment: History of major depressive disorder and [...] tablet Assessment & Plan (02/14/2020 2:24 PM PILLOW CLEANER): Assessment: History of major depressive disorder and [...] tablet Assessment & Plan (02/13/2020 12:00 PM PILLOW CLEANER): Assessment: History of major depressive disorder and [...] tablet Assessment & Plan (02/12/2020 11:20 AM PILLOW CLEANER): Assessment: History of major depressive disorder and [...] tablet Assessment & Plan (02/11/2020 11:54 AM PILLOW CLEANER): Assessment: History of major depressive disorder and [...] tablet Assessment & Plan (02/10/2020 12:09 PM PILLOW CLEANER): Assessment: History of major depressive disorder and [...] tablet Assessment & Plan (02/09/2020 11:50 AM PILLOW CLEANER): Assessment: History of major depressive disorder and [...] [place]ar[place] Assessment & Plan (02/08/2020 12:54 PM PILLOW CLEANER): Assessment: History of major depressive disorder and [...] [place]ar[place] Assessment & Plan (02/07/2020 11:47 AM PILLOW CLEANER): Assessment: History of major depressive disorder and [...] [place] Assessment & Plan (02/06/2020 8:12 AM PILLOW CLEANER): Assessment: History of major depressive disorder and [...] [place] Assessment & Plan (02/05/2020 9:12 AM PILLOW CLEANER): Assessment: History of major depressive disorder and [...] [place] Assessment & Plan (02/04/2020 12:43 PM PILLOW CLEANER): Assessment: History of major depressive disorder and [...] [place] Assessment & Plan (02/03/2020 2:28 PM PILLOW CLEANER): Assessment: History of major depressive disorder and [...] [place] Assessment & Plan (02/02/2020 4:02 PM PILLOW CLEANER): Assessment: History of major depressive disorder and [...] [place] Assessment & Plan (02/01/2020 12:12 PM PILLOW CLEANER): Assessment: History of major depressive disorder and [...] [place] Assessment & Plan (01/31/2020 1:04 PM PILLOW CLEANER): Assessment: History of major depressive disorder and [...] [place] Assessment & Plan (01/30/2020 10:30 AM PILLOW CLEANER): Assessment: History of major depressive disorder and [...] [place] Assessment & Plan (01/29/2020 9:40 PM PILLOW CLEANER): Assessment: History of major depressive disorder and [...] [place] Assessment & Plan (01/28/2020 11:59 AM PILLOW CLEANER): Assessment: History of major depressive disorder and [...] lunch Assessment & Plan (01/27/2020 3:57 PM PILLOW CLEANER): Assessment: History of major depressive disorder and [...] lunch Assessment & Plan (01/26/2020 6:01 PM PILLOW CLEANER): Assessment: History of major depressive disorder and [...] [place] Assessment & Plan (01/25/2020 2:56 PM PILLOW CLEANER): Assessment: History of major depressive disorder and [...] PO. Assessment & Plan (01/24/2020 8:11 AM PILLOW CLEANER): Assessment: History of major depressive disorder and [...] (02/22/20) Assessment & Plan (01/23/2020 7:09 AM PILLOW CLEANER): Assessment: History of major depressive disorder and [...] (02/22/20) Assessment & Plan (01/22/2020 7:52 AM PILLOW CLEANER): Assessment: History of major depressive disorder and [...] (02/22/20) Assessment & Plan (01/21/2020 7:40 AM PILLOW CLEANER): Assessment: History of major depressive disorder and [...] (02/22/20) Assessment & Plan (01/20/2020 7:36 AM PILLOW CLEANER): Assessment: History of major depressive disorder and [...] (02/22/20) Assessment & Plan (01/19/2020 7:22 AM PILLOW CLEANER): Assessment: History of major depressive disorder and [...] (02/22/20) Assessment & Plan (01/18/2020 4:35 PM PILLOW CLEANER): Assessment: History of major depressive disorder and [...] range. 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, SMA [...] PT Assessment & Plan (04/07/2020 2:52 PM PILLOW CLEANER): Assessment: 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, SMA [...] PT Assessment & Plan (04/07/2020 6:44 PM PILLOW CLEANER): Assessment: Marlee is a 19 year old [...] up with adolescent medicine on 04/18, [facility] on 05/02, and and scheduling Psych intake visit SOCIAL: - General medicine team spoke with and updated mother on 04/06 LABS: daily urine spec gravity, BMP/Mg/Phos Q / Assessment & Plan (04/06/2020 6:45 PM PILLOW CLEANER): Assessment: Marlee is a 19 year old [...] / Assessment & Plan (04/05/2020 3:22 PM PILLOW CLEANER): Assessment: 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, SMA [...] PT Assessment & Plan (04/05/2020 10:49 AM PILLOW CLEANER): Assessment: Marlee is a 19 year old [...] / Assessment & Plan (04/04/2020 3:59 PM PILLOW CLEANER): Assessment: 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, SMA [...] daily Assessment & Plan (04/04/2020 10:21 AM PILLOW CLEANER): Assessment: Marlee is a 19 year old [...] T/ Assessment & Plan (04/03/2020 12:59 PM PILLOW CLEANER): Assessment: Marlee is a 19 year old [...] daily Assessment & Plan (04/02/2020 4:19 PM PILLOW CLEANER): Assessment: Marlee is a 19 year old [...] daily Assessment & Plan (04/01/2020 11:55 AM PILLOW CLEANER): Assessment: 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 and [...] daily Assessment & Plan (04/01/2020 11:15 AM PILLOW CLEANER): Assessment: Marlee is a 19 year old [...] daily Assessment & Plan (03/31/2020 12:05 PM PILLOW CLEANER): Assessment: 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 and [...] daily Assessment & Plan (03/31/2020 10:06 AM PILLOW CLEANER): Assessment: Marlee is a 19 year old [...] daily Assessment & Plan (03/30/2020 2:24 PM PILLOW CLEANER): Assessment: Marlee is a 19 year old [...] daily Assessment & Plan (03/29/2020 10:40 AM PILLOW CLEANER): Assessment: Marlee is a 19 year old [...] or overnight feeds during that time. If Renyaldo refuses, may call security and use soft [...] daily Assessment & Plan (03/28/2020 12:29 PM PILLOW CLEANER): Assessment: Marlee is a 19 year old [...] allowed in room. May have water from [employer] cup. Oral fluids limited to 250 mL [...] daily Assessment & Plan (03/27/2020 10:34 AM PILLOW CLEANER): Assessment: Marlee is a 19 year old [...] daily Assessment & Plan (03/26/2020 11:20 AM PILLOW CLEANER): Assessment: Marlee is a 19 year old [...] daily Assessment & Plan (03/25/2020 12:30 PM PILLOW CLEANER): Assessment: Marlee is a 19 year old [...] daily Assessment & Plan (03/24/2020 5:02 PM PILLOW CLEANER): Assessment: 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 and [...] anxiety Assessment & Plan (03/24/2020 11:19 AM PILLOW CLEANER): Assessment: Marlee is a 19 year old [...] allowed in room. May have water from [facility] cup. - May take shower while [...] daily Assessment & Plan (03/23/2020 12:20 PM PILLOW CLEANER): Assessment: Marlee is a 19 year old [...] daily Assessment & Plan (03/22/2020 12:20 PM PILLOW CLEANER): Assessment: Marlee is a 19 year old [...] daily Assessment & Plan (03/21/2020 3:10 PM PILLOW CLEANER): Assessment: Marlee is a 19 year old [...] 03/15/2020. Assessment & Plan (03/20/2020 10:32 AM PILLOW CLEANER): Assessment: Marlee is a 19 year old [...] 03/15/2020. Assessment & Plan (03/19/2020 10:37 AM PILLOW CLEANER): Assessment: Marlee is a 19 year old [...] 03/15/2020. Assessment & Plan (03/18/2020 1:00 PM PILLOW CLEANER): Assessment: Marlee is a 19 year old [...] 03/15/2020. Assessment & Plan (03/17/2020 10:36 AM PILLOW CLEANER): Assessment: Marlee is a 19 year old [...] 03/15/2020. Assessment & Plan (03/16/2020 2:10 PM PILLOW CLEANER): Assessment: Marlee is a 19 year old [...] 03/15/2020. Assessment & Plan (03/15/2020 11:10 AM PILLOW CLEANER): Assessment: Marlee is a 19 year old [...] 03/15/2020 Assessment & Plan (03/14/2020 9:53 AM PILLOW CLEANER): Assessment: Marlee is a 19 year old [...] 03/15/2020 Assessment & Plan (03/13/2020 9:39 AM PILLOW CLEANER): Assessment: Marlee is a 19 year old [...] week Assessment & Plan (03/12/2020 11:35 AM PILLOW CLEANER): Assessment: Marlee is a 19 year old [...] week Assessment & Plan (03/11/2020 12:43 PM PILLOW CLEANER): Assessment: Marlee is a 19 year old [...] week Assessment & Plan (03/10/2020 9:12 AM PILLOW CLEANER): Assessment: Marlee is a 19 year old [...] in Assessment & Plan (03/09/2020 10:22 AM PILLOW CLEANER): Assessment: Marlee is a 19 year old [...] in Assessment & Plan (03/08/2020 10:52 AM PILLOW CLEANER): Assessment: Marlee is a 19 year old [...] in Assessment & Plan (03/07/2020 9:18 AM PILLOW CLEANER): Assessment: Marlee is a 19 year old [...] in Assessment & Plan (03/06/2020 10:09 AM PILLOW CLEANER): Assessment: Marlee is a 19 year old [...] in Assessment & Plan (03/05/2020 9:56 AM PILLOW CLEANER): Assessment: Marlee is a 19 year old [...] in Assessment & Plan (03/04/2020 12:58 PM PILLOW CLEANER): Assessment: Marlee is a 19 year old [...] A/P Assessment & Plan (03/03/2020 3:15 PM PILLOW CLEANER): Assessment: Marlee is a 19 year old [...] A/P Assessment & Plan (03/02/2020 12:06 PM PILLOW CLEANER): Assessment: Marlee is a 19 year old [...] A/P Assessment & Plan (03/01/2020 12:05 PM PILLOW CLEANER): Assessment: Marlee is a 19 year old [...] A/P Assessment & Plan (02/29/2020 12:52 PM PILLOW CLEANER): Assessment: Marlee is a 19 year old [...] A/P Assessment & Plan (02/28/2020 9:12 AM PILLOW CLEANER): Assessment: Marlee is a 19 year old [...] A/P Assessment & Plan (02/27/2020 10:03 AM PILLOW CLEANER): Assessment: Marlee is a 19 year old [...] A/P Assessment & Plan (02/26/2020 11:12 AM PILLOW CLEANER): Assessment: Marlee is a 19 year old [...] A/P Assessment & Plan (02/25/2020 9:32 AM PILLOW CLEANER): Assessment: Marlee is a 19 year old [...] A/P Assessment & Plan (02/24/2020 10:42 AM PILLOW CLEANER): Assessment: Marlee is a 19 year old [...] A/P Assessment & Plan (02/23/2020 10:22 AM PILLOW CLEANER): Assessment: Marlee is a 19 year old [...] A/P Assessment & Plan (02/22/2020 11:25 AM PILLOW CLEANER): Assessment: Marlee is a 19 year old [...] A/P Assessment & Plan (02/21/2020 10:54 AM PILLOW CLEANER): Assessment: Marlee is a 19 year old [...] A/P Assessment & Plan (02/20/2020 11:31 AM PILLOW CLEANER): Assessment: Marlee is a 19 year old [...] A/P Assessment & Plan (02/19/2020 3:04 PM PILLOW CLEANER): Assessment: Marlee is a 19 year old [...] TPN. Assessment & Plan (02/18/2020 10:14 AM PILLOW CLEANER): Assessment: Marlee is a 19 year old [...] Sat) Assessment & Plan (02/17/2020 12:30 PM PILLOW CLEANER): Assessment: Marlee is a 19 year old [...] pending Assessment & Plan (02/16/2020 2:29 PM PILLOW CLEANER): Assessment: Marlee is a 19 year old [...] pending Assessment & Plan (02/15/2020 12:33 PM PILLOW CLEANER): Assessment: Marlee is a 19 year old [...] pending Assessment & Plan (02/14/2020 2:23 PM PILLOW CLEANER): Assessment: Marlee is a 19 year old [...] pending Assessment & Plan (02/13/2020 11:59 AM PILLOW CLEANER): Assessment: Marlee is a 19 year old [...] pending Assessment & Plan (02/12/2020 11:49 AM PILLOW CLEANER): Assessment: Marlee is a 19 year old [...] recs Assessment & Plan (02/11/2020 11:56 AM PILLOW CLEANER): Assessment: Marlee is a 19 year old [...] recs Assessment & Plan (02/10/2020 12:11 PM PILLOW CLEANER): Assessment: Marlee is a 19 year old [...] SG) Assessment & Plan (02/09/2020 11:49 AM PILLOW CLEANER): Assessment: Marlee is a 19 year old [...] SG) Assessment & Plan (02/08/2020 12:54 PM PILLOW CLEANER): Assessment: Marlee is a 19 year old [...] recs. Assessment & Plan (02/07/2020 12:06 PM PILLOW CLEANER): Assessment: Marlee is a 19 year old [...] SG) Assessment & Plan (02/06/2020 8:12 AM PILLOW CLEANER): Assessment: Marlee is a 19 year old [...] SG) Assessment & Plan (02/05/2020 9:12 AM PILLOW CLEANER): Assessment: Marlee is a 19 year old [...] TG) Assessment & Plan (02/04/2020 12:52 PM PILLOW CLEANER): Assessment: Marlee is a 19 year old [...] TG) Assessment & Plan (02/03/2020 2:38 PM PILLOW CLEANER): Assessment: Marlee is a 19 year old with history of constipation, anxiety, and depression admitted for dehydration functional pain with restrictive eating patterns related to anxiety. 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 Marele has had multiple NG and ND tubes [...] TG) Assessment & Plan (02/02/2020 4:02 PM PILLOW CLEANER): Assessment: Marlee is a 19 year old [...] QOD Assessment & Plan (02/01/2020 12:08 PM PILLOW CLEANER): Assessment: Marlee is a 19 year old [...] RBCs. Assessment & Plan (01/31/2020 1:05 PM PILLOW CLEANER): Assessment: Marlee is a 19 year old [...] hematuria Assessment & Plan (01/30/2020 10:30 AM PILLOW CLEANER): Assessment: Marlee is a 19 year old [...] 10.2 Assessment & Plan (01/29/2020 9:39 PM PILLOW CLEANER): Assessment: Marlee is a 19 year old [...] syndrome Assessment & Plan (01/28/2020 11:59 AM PILLOW CLEANER): Assessment: Marlee is a 19 year old [...] QOD Assessment & Plan (01/27/2020 3:59 PM PILLOW CLEANER): Assessment: Marlee is a 19 year old [...] QOD Assessment & Plan (01/26/2020 5:14 PM PILLOW CLEANER): Assessment: Marlee is a 19 year old [...] QOD Assessment & Plan (01/25/2020 2:58 PM PILLOW CLEANER): Assessment: Marlee is a 19 year old [...] QOD Assessment & Plan (01/24/2020 11:54 AM PILLOW CLEANER): Assessment: Marlee is a 19 year old [...] orthostatics Assessment & Plan (01/23/2020 7:09 AM PILLOW CLEANER): Assessment: Marlee is a 19 year old [...] orthostatics Assessment & Plan (01/22/2020 4:25 PM PILLOW CLEANER): Assessment: Marlee is a 19 year old [...] orthostatics Assessment & Plan (01/21/2020 8:15 AM PILLOW CLEANER): Assessment: Marlee Chavez is a 19 year [...] orthostatics Assessment & Plan (01/20/2020 7:36 AM PILLOW CLEANER): Assessment: Marlee Chavez is a 19 year [...] orthostatics Assessment & Plan (01/19/2020 7:20 AM PILLOW CLEANER): Assessment: Marlee Chavez is a 19 year [...] orthostatics Assessment & Plan (01/18/2020 4:30 PM PILLOW CLEANER): Assessment: Marlee Chavez is a 19 year [...] consult Assessment & Plan (03/27/2020 10:35 AM PILLOW CLEANER): Assessment: Marlee is admitted on ED Protocol for severe malnutrition. Following feeding plan per Adolescent Medicine and Nutrition. Plan: - see plan under ARFID problem Assessment & Plan (03/26/2020 11:20 AM PILLOW CLEANER): Assessment: Marlee is admitted on ED Protocol for severe malnutrition. Following feeding plan per Adolescent Medicine and Nutrition. Plan: - see plan under ARFID problem Assessment & Plan (03/24/2020 11:19 AM PILLOW CLEANER): Assessment: Marlee is admitted on ED Protocol for severe malnutrition. Following feeding plan per Adolescent Medicine and Nutrition. Plan: - see plan under ARFID problem Assessment & Plan (03/23/2020 9:00 AM PILLOW CLEANER): Assessment: Marlee is admitted on ED Protocol for severe malnutrition. Following feeding plan per Adolescent Medicine and Nutrition. Plan: - see plan under ARFID problem Assessment & Plan (03/22/2020 12:21 PM PILLOW CLEANER): Assessment: Marlee is admitted on ED Protocol for severe malnutrition. Following feeding plan per Adolescent Medicine and Nutrition. Plan: - see plan under ARFID problem Assessment & Plan (03/17/2020 4:26 PM PILLOW CLEANER): Assessment: 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 and [...] anxiety Assessment & Plan (03/15/2020 11:10 AM PILLOW CLEANER): Assessment: Marlee is admitted on ED Protocol for severe malnutrition. Following feeding plan per Adolescent Medicine and Nutrition. Plan: - see plan under ARFID problem Assessment & Plan (03/10/2020 11:17 AM PILLOW CLEANER): Assessment: 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 and [...] needed Assessment & Plan (03/06/2020 10:09 AM PILLOW CLEANER): Assessment: Marlee is admitted on ED Protocol for severe malnutrition. Following feeding plan per Adolescent Medicine and Nutrition. Plan: - see plan under ARFID problem Assessment & Plan (03/04/2020 1:41 PM PILLOW CLEANER): Assessment: Marlee is admitted on ED Protocol for severe malnutrition. Following feeding plan per Adolescent Medicine and Nutrition. Plan: - see plan under ARFID problem Assessment & Plan (03/04/2020 11:50 AM PILLOW CLEANER): Assessment: Marlee is admitted on ED Protocol for severe malnutrition. Following feeding plan per Adolescent Medicine and Nutrition. Plan: - see plan under ARFID problem Assessment & Plan (03/03/2020 3:53 PM PILLOW CLEANER): Assessment: 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 and [...] dad. Assessment & Plan (02/27/2020 9:57 AM PILLOW CLEANER): Assessment: Marlee is admitted on ED Protocol for severe malnutrition. Following feeding plan per Adolescent Medicine and Nutrition. Plan: - see plan under ARFID problem Assessment & Plan (02/26/2020 9:59 AM PILLOW CLEANER): Assessment: 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 and [...] plan. Assessment & Plan (02/25/2020 5:48 PM PILLOW CLEANER): Assessment: 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 and [...] plan. Assessment & Plan (02/18/2020 4:54 PM PILLOW CLEANER): Assessment: 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 and [...] daily Assessment & Plan (02/11/2020 11:47 AM PILLOW CLEANER): Assessment: 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 and [...] BID Assessment & Plan (02/09/2020 11:50 AM PILLOW CLEANER): Assessment: Marlee is admitted on ED Protocol for severe malnutrition. Following feeding plan per Adolescent Medicine and Nutrition. Plan: - see plan under ARFID problem Assessment & Plan (02/07/2020 11:47 AM PILLOW CLEANER): Assessment: Marlee is admitted on ED Protocol for severe malnutrition. Following feeding plan per Adolescent Medicine and Nutrition. Plan: - see plan under ARFID problem Assessment & Plan (02/06/2020 8:12 AM PILLOW CLEANER): Assessment: Marlee is admitted on ED Protocol for severe malnutrition. Following feeding plan per Adolescent Medicine and Nutrition. Plan: - see plan under ARFID problem Assessment & Plan (02/05/2020 9:01 AM PILLOW CLEANER): Assessment: Marlee is admitted on ED Protocol for severe malnutrition. Following feeding plan per Adolescent Medicine and Nutrition. Plan: - see plan under ARFID problem Assessment & Plan (02/04/2020 12:34 PM PILLOW CLEANER): Assessment: Marlee is admitted on ED Protocol for severe malnutrition. Following feeding plan per Adolescent Medicine and Nutrition. Plan: - see plan under ARFID problem Assessment & Plan (02/03/2020 2:28 PM PILLOW CLEANER): Assessment: Marlee is admitted on ED Protocol for severe malnutrition. Following feeding plan per Adolescent Medicine and Nutrition. Plan: - see plan under ARFID problem Assessment & Plan (02/02/2020 3:57 PM PILLOW CLEANER): Assessment: Marlee is admitted on ED Protocol for severe malnutrition. Following feeding plan per Adolescent Medicine and Nutrition. Plan: - see plan under ARFID problem Assessment & Plan (02/01/2020 12:10 PM PILLOW CLEANER): Assessment: Marlee is admitted on ED Protocol for severe malnutrition. Following feeding plan per Adolescent Medicine and Nutrition. Plan: - see plan under ARFID problem Assessment & Plan (01/31/2020 1:04 PM PILLOW CLEANER): Assessment: Marlee is admitted on ED Protocol for severe malnutrition. Following feeding plan per Adolescent Medicine and Nutrition. Plan: - see plan under ARFID problem Assessment & Plan (01/30/2020 10:28 AM PILLOW CLEANER): Assessment: Marlee is admitted on ED Protocol for severe malnutrition. Following feeding plan per Adolescent Medicine and Nutrition. Plan: - see plan under ARFID problem Assessment & Plan (01/28/2020 4:29 PM PILLOW CLEANER): Assessment: 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 and [...] BID Assessment & Plan (01/24/2020 11:54 AM PILLOW CLEANER): Assessment: Marlee is admitted on ED Protocol for severe malnutrition. Following feeding plan per Adolescent Medicine and Nutrition. Plan: - see plan under ARFID problem Assessment & Plan (01/23/2020 7:09 AM PILLOW CLEANER): Assessment: Marlee is admitted on ED Protocol for severe malnutrition. Following feeding plan per Adolescent Medicine and Nutrition. Plan: - see plan under ARFID problem Assessment & Plan (01/22/2020 9:48 AM PILLOW CLEANER): Assessment: 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 and [...] () Assessment & Plan (01/22/2020 7:52 AM PILLOW CLEANER): Assessment: Marlee is admitted on ED Protocol for severe malnutrition. Following feeding plan per Adolescent Medicine and Nutrition. Plan: - see plan under ARFID problem Assessment & Plan (01/21/2020 10:33 AM PILLOW CLEANER): Assessment: 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 and [...] () Assessment & Plan (01/21/2020 7:40 AM PILLOW CLEANER): Assessment: Marlee is admitted on ED Protocol for severe malnutrition. Following feeding plan per Adolescent Medicine and Nutrition. Plan: - see plan under ARFID problem Assessment & Plan (01/20/2020 7:36 AM PILLOW CLEANER): Assessment: Marlee is admitted on ED Protocol for severe malnutrition. Following feeding plan per Adolescent Medicine and Nutrition. Plan: - see plan under ARFID problem Assessment & Plan (01/19/2020 7:22 AM PILLOW CLEANER): Assessment: Marlee is admitted on ED Protocol for severe malnutrition. Following feeding plan per Adolescent Medicine and Nutrition. Plan: - see plan under ARFID problem Assessment & Plan (01/18/2020 4:25 PM PILLOW CLEANER): Assessment: Marlee Chavez is a 19 year [...] orthostatics Assessment & Plan (01/17/2020 12:38 PM PILLOW CLEANER): Assessment: Marlee Chavez is a 19 year [...] anxiety Assessment & Plan (01/16/2020 1:41 PM PILLOW CLEANER): Assessment: Marlee Chavez is a 19 year [...] anxiety Assessment & Plan (01/15/2020 8:49 PM PILLOW CLEANER): Assessment: 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 and [...] counseling. Assessment & Plan (01/15/2020 11:57 AM PILLOW CLEANER): Assessment: Marlee Chavez is a 19 year [...] anxiety Assessment & Plan (01/14/2020 1:00 PM PILLOW CLEANER): Assessment: 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 and [...] () Assessment & Plan (01/14/2020 9:54 AM PILLOW CLEANER): Assessment: Marlee Chavez is a 19 year [...] anxiety Assessment & Plan (01/13/2020 2:34 PM PILLOW CLEANER): Assessment: Marlee Chavez is a 19 year [...] anxiety Assessment & Plan (01/13/2020 12:01 PM PILLOW CLEANER): Moderate protein-calorie malnutrition Assessment: Marlee Chavez is [...] thereafter Assessment & Plan (01/12/2020 3:40 PM PILLOW CLEANER): Moderate protein-calorie malnutrition Assessment: Marlee Chavez is [...] chart) Assessment & Plan (01/12/2020 1:25 PM PILLOW CLEANER): Assessment: Marlee Chavez is a 19 year [...] anxiety Assessment & Plan (01/11/2020 11:43 AM PILLOW CLEANER): Assessment: Marlee Chavez is a 19 year [...] cysts Assessment & Plan (01/10/2020 9:32 AM PILLOW CLEANER): Assessment: Marlee Chavez is a 19 year [...] cysts Assessment & Plan (01/09/2020 11:08 AM PILLOW CLEANER): Assessment: Marlee Chavez is a 19 year [...] cysts Assessment & Plan (01/08/2020 1:32 PM PILLOW CLEANER): Assessment: Marlee Chavez is a 19 year [...] cysts Assessment & Plan (01/07/2020 2:52 PM PILLOW CLEANER): Assessment: Marlee Chavez is a 19 year [...] cysts Assessment & Plan (01/06/2020 11:27 AM PILLOW CLEANER): Assessment: Marlee Chavez is a 19 year [...] cysts Assessment & Plan (01/05/2020 3:49 PM PILLOW CLEANER): Assessment: Marlee Chavez is a 19 year [...] cysts Assessment & Plan (01/04/2020 1:53 PM PILLOW CLEANER): Assessment: Marlee Chavez is a 19 year [...] cysts Assessment & Plan (01/03/2020 12:34 AM PILLOW CLEANER): Assessment: Marlee Chavez is a 19 year [...] 03/18/2023 Assessment & Plan (01/24/2022 5:04 PM PILLOW CLEANER): Assessment: Marlee Chavez is a 20 year [...] gabapentin Assessment & Plan (01/23/2022 6:56 PM PILLOW CLEANER): Assessment: Marlee Chavez is a 20 year [...] pain Assessment & Plan (01/08/2021 3:05 PM PILLOW CLEANER): Assessment: Patient is an 20 year old [...] I&Os Assessment & Plan (01/07/2021 4:52 PM PILLOW CLEANER): Assessment: Patient is an 20 year old [...] it Assessment & Plan (01/06/2021 6:00 PM PILLOW CLEANER): Assessment: Patient is an 20 year old [...] I&Os Assessment & Plan (01/05/2021 1:27 PM PILLOW CLEANER): Assessment: Patient is an 20 year old [...] I&Os Assessment & Plan (01/04/2021 9:17 PM PILLOW CLEANER): Assessment: Patient is an 20 year old [...] I&Os Assessment & Plan (01/03/2021 8:43 PM PILLOW CLEANER): Assessment: Patient is an 20 year old [...] wearing condom. She has upcoming appointment with industrial tech instructor next month at which time, she will be getting a IUD. Plan: -urine test today -GC, chlamydia, trichomonas testing Assessment & Plan (05/24/2020 2:43 PM CDT): Will get urine Hcg and STI testing. Mom is aware and Marlee is ok with us communicating results to her mother. Purging 03/24/2020 05/24/2020 Assessment & Plan (04/05/2020 3:23 PM PILLOW CLEANER): Assessment: Has been drinking excessive amounts of water and putting her fingers in her mouth to induce vomiting. No recorded emesis since 03/25. Plan: Will limit access to water to 250ml at a time. May only bathe once per day after she has taken her meds, had breakfast and lunch. Assessment & Plan (04/04/2020 12:58 PM PILLOW CLEANER): Assessment: Has been drinking excessive amounts of water and putting her fingers in her mouth to induce vomiting. No recorded emesis since 03/25. Plan: Will limit access to water to 250ml at a time. May only bathe once per day after she has taken her meds, had breakfast and lunch. Assessment & Plan (04/01/2020 11:55 AM PILLOW CLEANER): Assessment: Has been drinking excessive amounts of water and putting her fingers in her mouth to induce vomiting. No recorded emesis since 03/25. Plan: Will limit access to water to 250ml at a time. May only bathe once per day after she has taken her meds, had breakfast and lunch. Assessment & Plan (03/24/2020 4:53 PM PILLOW CLEANER): Assessment: Has been drinking excessive amounts of water and putting her fingers in her mouth to induce vomiting. Plan: Will limit access to water to 250ml at a time. May only bathe once per day after she has taken her meds, had breakfast and lunch. Ovarian cyst 01/12/2020 03/19/2020 Assessment & Plan (03/15/2020 11:10 AM PILLOW CLEANER): Assessment: on ultrasound on R Plan: -Radiology recommended repeat imaging in 6 months for ovarian cysts Assessment & Plan (03/04/2020 1:41 PM PILLOW CLEANER): Assessment: on ultrasound on R Plan: -Radiology recommended repeat imaging in 6 months for ovarian cysts Assessment & Plan (03/04/2020 11:50 AM PILLOW CLEANER): Assessment: on ultrasound on R Plan: -Radiology recommended repeat imaging in 6 months for ovarian cysts Assessment & Plan (02/27/2020 9:58 AM PILLOW CLEANER): Assessment: on ultrasound on R Plan: -Radiology recommended repeat imaging in 6 months for ovarian cysts Assessment & Plan (01/28/2020 11:59 AM PILLOW CLEANER): Assessment: on ultrasound on R Plan: -Radiology recommended repeat imaging in 6 months for ovarian cysts Assessment & Plan (01/27/2020 3:52 PM PILLOW CLEANER): Assessment: on ultrasound on R Plan: -Radiology recommended repeat imaging in 6 months for ovarian cysts Assessment & Plan (01/26/2020 6:01 PM PILLOW CLEANER): Assessment: on ultrasound on R Plan: -Radiology recommended repeat imaging in 6 months for ovarian cysts Assessment & Plan (01/13/2020 2:33 PM PILLOW CLEANER): Assessment: on ultrasound on R Plan: -Radiology recommended repeat imaging in 6 months for ovarian cysts Assessment & Plan (01/12/2020 1:26 PM PILLOW CLEANER): Assessment: on ultrasound on R Plan: -Radiology recommended repeat imaging in 6 months for ovarian cysts Self-injurious behavior 03/25/201705/12 Major depressive disorder, severe 03/21/2017 05/24/2020 Intractable vomiting 020 Encounters Date Type Department Care Team Description 03/05/2024 Orders Only [facility] - Family Medicine [address] [place] [address] [phone] Ronel Thornton DO Familial hypercholesterolemia 03/05/2024 Travel 03/05/2024 Telephone [facility] - Family Medicine [address] [place] [address] [phone] Ronel Thornton DO New Med Request 01/15/2024 3:00 PM PILLOW CLEANER Procedure visit [facility] - REGIONAL GEODETIC ADVISOR [address] [place] [phone] Nai Jurado MD Encounter for insertion of Mirena IUD from Last 3 Months Immunizations Name Administration Dates Next Due [place] primary monoval ent 12+ yr 0.3mL Purple [...] Recorded Patient Health Questionnaire-2 Score 0 01/15/2024 [facility] - Occupational Stress Questionnaire Answer Date [...] place to sleep or slept in a usp (including now)? No 04/24/2023 Sex and Gender Information Value Date Recorded Sex Assigned at Not on file Gender Identity Not on file Sexual Orientation Not on file Last Filed Vital Signs Vital Sign Reading Time Taken Comments Blood Pressure 105/74 01/15/2024 2:50 PM PILLOW CLEANER Pulse 65 01/15/2024 2:50 PM PILLOW CLEANER Temperature 36.3 C (97.4 F) 05/21/2023 11:54 AM CDT Respiratory Rate 18 04/28/2023 7:42 PM CDT Oxygen Saturation 99% 05/21/2023 11:54 AM CDT Inhaled Oxygen Concentration 21% 06/27/2021 6 :30 PM CDT Weight 46.3 kg (102 lb) 01/15/2024 2:50 PM PILLOW CLEANER Height 154.9 cm (5' 1 ) 01/15/2024 2:50 PM PILLOW CLEANER Body Mass Index 19.27 01/15/2024 2:50 PM PILLOW CLEANER Plan of Treatment Upcoming Encounters Date Type Department Care Team (Late st Contact Info) Description 10/08/2024 8:00 AM CDT Office Visit [facility] - Family Medicine [address] [place] [address] Ronel Thornton DO [address] [place] [address] Health Maintenance Due Date Last Done [...] BILL Comment: Performed at: 02 - [facility] [address] [id number] Coordinator Of Genetic Services: Meredith Gil MD, Phone: [phone] Performed at: - [facility] [place] [address] [place], [place] [id number] Coordinator Of Genetic Services: Meredith Gil MD, Phone: [phone] Diagnosis Comment(A) [facility] ACCOUNT BILL Comment: EPITHELIAL [...] no HPV testing was performed. Chlamydia trachomatis YMAIL Negative Negative [facility] ACCOUNT BILL GC YAMIL Negative Negative [facility] ACCOUNT BILL Trichomonas vaginalis by YAMIL Negative Negative [facility] ACCOUNT BILL PART OF UTERINE CERVIX / Unknown 11/29/2023 11:06 AM CDT 11/29/2023 Comment:Cervix Release to pa suleman Brennan [facility] ACCOUNT BILL - 12/05/2023 5:09 PM CDT Performed at: 01 - [facility] [address] [id number] Coordinator Of Genetic Services: Meredith Gil MD, Phone: [phone] Specimen Comment: [id number] Specimen Comment: Source.............Cervix Specimen Comment: No. of containers..01 ThinPrep Vial Nai Jurado MD LAB - PATHOLOGY/CYTO LOGY ORDERABLES [facility] ACCOUNT BILL [address] [place] [address] * HIV-1 HIV-2 ANTIBODY + HIV P24 AG PANEL (11/29/2023 10:55 AM CDT) Pathologist [facility] [...] 11/30/2023 10:10 AM CDT Performed at: - [facility] [address] [place], [place] [id number] Coordinator Of Genetic Services: Karlos Huffman PhD, Phone: [phone] Nai Jurado MD LAB - CHEMISTRY [place] Performing Organization Address City/[facility]/ZIP Co de Phone Number [facility] ACCOUNT BILL [address] [place] [address] * HEPATITIS C AB W/RFLX TO HCV RNA QN PCR (12/07/2021) Pathologist [facility] Hepatitis C Antibody NON-REACTI VE NON-REACT KASIA [facility] Signal to Cut-Off 0.08 <1.00 [facility] Comment: HCV antibody was non-reactive. There is no laboratory evidence of HCV infection. In most cases, no further action is required. However, if recent HCV exposure is suspected, a test for HCV RNA (test code 04535) is suggested. For additional information please refer to http://education.[employer]/faq/ZYV23v2 (This link is being provided for informational/ educational purposes only.) Test Performed at: [facility] [address] [place] [address] PURVI PABLO DO,MPH Blood BLOOD SPECIMEN / Unknown 12/07/2021 12/07/2021 10:47 AM CDT Karrie Mack MD LAB - CHEMISTRY JESSICA [place] [facility] [address] [place] [address] from Last 3 Months or Most Recently [...] 4:54 PM 06/22/2022 2:44 PM Care Teams Field Crop Harvest Worker Relationship Specialty Start Date End Date Ronel Thornton DO [address] [place] [address] PCP - General Family Medicine 03/18/23 Ronel Thornton DO [address] [place] [address] PCP - Attributed-[facility]HP STL 04/12/23
--- OUTSIDE RECORDS SUMMARY | 2024-03-28 03:37 | XMS_ITS | Encounter Summary ---
Author Organization [facility] Address [address] [place] [address] Care Team Providers Care Bilingual Operator Name Role Phone Mellissa Jiménez MD Primary Care Provider [phone] Ronel Thornton DO Primary Care Provider [phone] Daphnie Gillespie MD Unavailable Juliana Peralta CASINO SLOT SUPERVISOR Unavailable [phone] Juliana Peralta CASINO SLOT SUPERVISOR Unavailable [phone] Ronel Thornton DO Unavailable [phone] Kenyatta Taylor RN Unavailable [phone] Tiago Lew Unavailable [phone] Reason for Visit * Reason Onset Date Comments Eating disorder 08/04/2020 Encounter Details Date Type Department Care Team (Late st Contact Info) Description 08/04/2020 Telephone [facility] Machine Design Engineer [address] [place] [phone] Flor Martinez, TABLE AND DESK FINISHER Eating disorder Social History Tobacco Use Types [...] phone calls with Kenyatta's mother Esperanza and [facility] this week regarding Kenyatta's relapse, and mother's belief that she needs to be admitted to [facility]. Spoke with mother again this a.m, and they have a phone intake assessment with [facility] next SaturdayAugust 08. documented in this encounter Plan of Treatment Upcoming Encounters Date Type Department Care Team (Late st Contact Info) Description 10/08/2024 8:00 AM CDT Office Visit [facility] - Family Medicine [address] [place] [phone] Ronel Thornton DO [address] [place] [address] documented as of this encounter Visit Diagnoses Not on filedocumented in this encounter Additional Health Concerns Infection Onset Date Last Indicated Resolved Time COVID-19 Under Investigation 08/10/2021 08/10/2021 08/10/2021 2:59 AM CDT documented as of this encounter Care Teams Bilingual Operator Relationship Specialty Start Date End Date Mellissa Jiménez MD [address] [place] [address] [place] [address] PCP - General Family Medicine 04/25/20 03/17/23 Ronel Thornton DO [address] [place] [address] PCP - General Family Medicine 03/18/23 Daphnie Gillespie MD [address] [place] [address] PCP - Attributed-[facility] STL 02/11/23 04/11/23 Ronel Thornton DO [address] [place] [address] PCP - Attributed-[facility] STL 04/12/23 Juliana Peralta MSW Outpatient Buggyman Care Management 04/24/2304/11 Juliana Peralta MSW Outpatient Buggyman Care Management 04/30/2304/12 Kenyatta Taylor RN [address] [address] Electric Motor WinderDrug Enforcement Agent 09/02/23 10/04/23 Tiago Lew Care Coordination Specialist Care Management 09/26/23 11/10/23 documented as of this encounter
--- OUTSIDE RECORDS SUMMARY | 2024-03-28 03:37 | XMS_ITS | Encounter Summary ---
Author Organization [facility] Address [address] [address] Care Team Providers Care Tub Puller Name Role Phone Mellissa Jiménez MD Primary Care Provider [phone] Ronel Thornton DO Primary Care Provider [phone] Daphnie Gillespie MD Unavailable Juliana Peralta PARI MUTUEL TICKET CASHIER Unavailable [phone] Juliana Peralta PARI MUTUEL TICKET CASHIER Unavailable [phone] Ronel Thornton DO Unavailable Kenyatta Taylor RN Unavailable Tiago Lew Unavailable [phone] Reason for Visit * Reason Onset Date Comments Forms 01/23/2021 Encounter Details Date Type Department Care Team (Late st Contact Info) Description 01/23/2021 Telephone [facility] Pediatrics - Surgery [address] [place] [address] Daphnie Gillespie MD [address] [place] [phone] Forms Social History Tobacco Use Types [...] COVID-19? No / Unsure 01/24/2021 11:47 AM OPTICAL LABORATORY TECHNICIAN documented as of this encounter Functional Status [...] wanted to know if it was received. CAL LABORATORY TECHNICIAN documented in this encounter Plan of Treatment Upcoming Encounters Date Type Department Care Team (Late st Contact Info) Description 10/08/2024 8:00 AM CDT Office Visit [facility] - Family Medicine [address] [place] [address] Ronel Thornton DO [address] [place] [address] documented as of this encounter Visit Diagnoses Not on filedocumented in this encounter Additional Health Concerns Infection Onset Date Last Indicated Resolved Time COVID-19 Under Investigation 08/10/2021 08/10/2021 08/10/2021 2:59 AM CDT documented as of this encounter Care Teams Tub Puller Relationship Specialty Start Date End Date Mellissa Jiménez MD [address] [place] [address] [place] [address] PCP - General Family Medicine 04/25/20 03/17/23 Ronel Thornton DO [address] [place] [address] PCP - General Family Medicine 03/18/23 Daphnie Gillespie MD [address] [place] [address] PCP - Attributed-[facility]HP STL 02/11/23 04/11/23 Ronel Thornton DO [address] [place] [address] PCP - Attributed-[facility] EHP STL 04/12/23 Juliana Peralta MSW Outpatient Molding Engineer Care Management 04/24/2304/11 Juliana Peralta MSW Outpatient Molding Engineer Care Management 04/30/2304/12 Kenyatta Taylor RN [address] [address] Radio InstallerPlant Sprayer 09/02/23 10/04/23 Tiago Lew Care Coordination Specialist Care Management 09/26/23 11/10/23 documented as of this encounter
--- OUTSIDE RECORDS SUMMARY | 2024-03-28 03:37 | XMS_ITS | Encounter Summary ---
Author Organization [facility] Address [address] [place] [address] Care Team Providers Care Senior Sql D[employer] Name Role Phone Mellissa Jiménez MD Primary Care Provider [phone] Ronel Thornton DO Primary Care Provider [phone] Daphnie Glilespie MD Unavailable Juliana Peralta COMMUNITY SERVICE ORGANIZATION DIRECTOR Unavailable [phone] Juliana Peralta Unavailable [phone] Ronel Thornton DO Unavailable [phone] Kenyatta Taylor RN Unavailable [phone] Tiago Lew Unavailable Encounter Details Date Type Department Care Team (Late st Contact Info) Description 07/28/2020 Telephone [facility] Pediatrics - Pulmonology [address] [place] [id number] Bessie Erwin Social History Tobacco Use [...] PM CDT Mom called regarding not eating [phone] Gillespie documented in this encounter Plan of Treatment Upcoming Encounters Date Type Department Care Team (Late st Contact Info) Description 10/08/2024 8:00 AM CDT Office Visit [facility] - Family Medicine [address] [place] [address] [phone] Ronel Thornton DO [address] [place] [phone] documented as of this encounter Visit Diagnoses Not on filedocumented in this encounter Additional Health Concerns Infection Onset Date Last Indicated Resolved Time COVID-19 Under Investigation 08/10/2021 08/10/2021 08/10/2021 2:59 AM CDT documented as of this encounter Care Teams Senior Sql Dba Relationship Specialty Start Date End Date Mellissa Jiménez MD [address] [place] [address] [place] [phone] PCP - General Family Medicine 04/25/20 03/17/23 Ronel Thornton DO [address] [place] [phone] PCP - General Family Medicine 03/18/23 Daphnie Gillespie MD [address] [place] [phone] PCP - Attributed-[facility] 02/11/23 04/11/23 Ronel Thornton DO [address] [place] [phone] PCP - Attributed-[facility] 04/12/23 Juliana Peralta MSW Outpatient Heavy Truck Mechanic Care Management 04/24/2304/11 Juliana Peralta MSW Outpatient Heavy Truck Mechanic Care Management 04/30/2304/12 Kenyatta Taylor RN [address] [address] Safety CounselorSenior Project Manager 09/02/23 10/04/23 Tiago Lew Care Coordination Specialist Care Management 09/26/23 11/10/23 documented as of this encounter
--- OUTSIDE RECORDS SUMMARY | 2024-03-28 03:37 | XMS_ITS | Patient Health Summary ---
Author Organization [facility] Address [address] [place] [address] Care Team Providers Care Interior Decorator Name Role Phone Ronel Thornton DO Primary Care Provider [phone] Ronel Thornton DO Unavailable [phone] Note from [facility],non-owned Affiliates and Associated Physician Practices is amultiple site organization consisting of ambulatory clinics and hospital sitesin [place], [place], [place] and [place]. This disclosure is being madepursuant to the Care Everywhere program and may not contain all information available regarding this patient. Last updated 17.[facility] Allergies No known active allergies* Skin Adhesives(Itching),Inactive [...] Patient Health Questionnaire-2 Score 0 01/15/2024 [facility] - Occupational Stress Questionnaire Answer Date [...] place to sleep or slept in a detention (including now)? No 04/24/2023 Sex and Gender Information Value Date Recorded Sex Assigned at Not on file Gender Identity Not on file Sexual Orientation Not on file Last Filed Vital Signs Vital Sign Reading Time Taken Comments Blood Pressure 105/74 01/15/2024 2:50 PM PL[employer]ER [employer]ARER Pulse 65 01/15/2024 2:50 PM [employer] Temperature 36.3 C (97.4 F) 05/21/2023 11:54 AM CDT Respiratory Rate 18 04/28/2023 7:42 PM CDT Oxygen Saturation 99% 05/21/2023 11:54 AM CDT Inhaled Oxygen Concentration 21% 06/27/2021 6 :30 PM CDT Weight 46.3 kg (102 lb) 01/15/2024 2:50 PM [employer] Height 154.9 cm (5' 1 ) 01/15/2024 2:50 PM [employer]ER Body Mass Index 19.27 01/15/2024 2:50 PM [employer]ER Procedures * HCG URINE QUALITATIVE - POINT [...] Recurrent major depressive disorder, in full remission ([facility]) * LIPASE BLOOD(Performed 10/23/2022) * [...] for Abdominal pain, generalized, Pancolitis (HCC) * TN EGD FLEX TRANSORAL W BX SNGL OR MULT(Performed 06/21/2022) Performed for Abdominal pain, generalized, Pancolitis (HCC) * TN ED EGD FLEX TRANSORAL DX(Performed 06/21/2022) Performed for Abdominal pain, generalized, Pancolitis (HCC) * TN COLONOSCOPY, DIAGNOSTIC(Performed 06/21/2022) Performed for Abdominal pain, [...] 06/05/2022) Performed for Abdominal pain, generalized * TN INSERT INTRAUTERINE DEVICE(Performed 04/16/2022) Performed for Encounter [...] for Avoidant-restrictive food intake disorder (ARFID) * TN INSERT INTRAUTERINE DEVICE(Performed 01/19/2021) Performed for Encounter [...] 01/05/2020) Performed for Lower abdominal pain * TN COLONOSCOPY,BIOPSY(Performed 01/05/2020) Performed for Weight loss, Abdominal pain, unspecified abdominal location * TN EGD FLEX TRANSORAL W BX SNGL OR [...] BILL Comment: Performed at: 02 - [facility] [place] [address] [facility], [place] [id number] Corporate Sales Trainer: Meredith Gil MD, Phone: [phone] Performed at: - [facility] [place] [address] [facility], [place] [id number] Corporate Sales Trainer: Meredith Gil MD, Phone: [phone] Diagnosis Comment(A) [facility] ACCOUNT BILL Comment: EPITHELIAL [...] 12/05/2023 5:09 PM CDT Performed at: - [address] [id number] Corporate Sales Trainer: Meredith Gil MD, Phone: [phone] Specimen Comment: [id number] Specimen Comment: Source.............Cervix Specimen Comment: No. of containers..01 ThinPrep Vial Marla Jurado MD LAB - PATHOLOGY/CYTO LOGY ORDERABLES Performing Organization Address City/[facility] Co de Phone Number [facility] ACCOUNT BILL [address] [place] [address] * HIV-1 HIV-2 ANTIBODY + HIV P24 AG PANEL (11/29/2023 10:55 AM CDT) Only the most recent of4 resultswithin the time period is included. Pathologist [facility] HIV Screen 4th Generation w Reflex Non Reactive Non Reactive [facility] ACCOUNT BILL Comment: HIV-1/HIV-2 antibodies and HIV-1 p24 antigen were NOT detected. There is no laboratory evidence of HIV infection. HIV Negative Blood BLOOD SPECIMEN / Unknown 11/29/2023 10:55 AM CDT 11/29/2023 Narrative [facility] ACCOUNT BILL - 11/30/2023 10:10 AM CDT Performed at: - [address] [id number] Corporate Sales Trainer: Karlos Huffman PhD, Phone: [phone] Marla Jurado MD LAB - CHEMISTRY [place] Performing Organization Address City/[facility] Co de Phone Number [facility] ACCOUNT BILL [address] [place] [address] * TREPONEMA PALLIDUM POS REFLX RPR (11/29/2023 10:55 AM CDT) Only the most recent of2 resultswithin the time period is included. Pathologist [facility] T pallidum Antibody (TP-PA) Non Reactive Non Reactive [facility] ACCOUNT BILL Blood BLOOD SPECIMEN / Unknown 11/29/2023 10:55 AM CDT 11/29/2023 Narrative [facility] ACCOUNT BILL - 12/03/2023 12:07 AM CDT Performed at: 01 - [facility] [address] [id number] Corporate Sales Trainer: Diana Simental MD, Phone: [phone] Marla Jurado MD LAB - SEROLOGY ORDER TRAY Performing Organization Address City/[facility] Co de Phone Number [facility] ACCOUNT BILL [address] [place] [address] * (ABNORMAL) LIPID PROFILE (10/07/2023 8:32 AM [...] Resulting Agency Comment Lab Testing performed at: [facility] [place] [address] [place] [id number] Ronel Thornton DO LAB - CHEMISTRY [place] Performing Organization Address [facility] Co de Phone Number [facility] ACCOUNT BILL [address] [place] [address] * LAMOTRIGINE LEVEL (05/21/2023 1:47 PM CDT) Lamotrigine 5.7 2.0 - 20.0 ug/mL [facility] ACCOUNT BILL Comment:Detection Limit = 1. 0 Blood BLOOD SPECIMEN / Unknown 05/21/2023 1:47 PM CDT 05/21/2023 Narrative Resulting Agency Comment Lab Testing performed at: [facility] [place] [id number] Vimal Cheng MD LAB - THERAPEUTIC DR SAEZ MONITORING ORDERABLES [facility] [place] [address] [place] [address] * TSH REFLEX FREE T4 (04/25/2023 3:59 PM CDT) Only the most recent of4 resultswithin the time period is included. TSH 2.331 0.350 - 4.940 uIU/mL 04/25/2023 4:58 PM CDT [facility] Blood BLOOD SPECIMEN / Unknown Venipuncture / Unknown 04/25/2023 3:59 PM CDT 04/25/2023 4:14 PM CDT Sita Gandhi Yanira EXAMINATION [employer] ARCHITECT LAB - CHEMISTRY ORDERABLES [facility] [address] [place] [address] * HEMOGLOBIN A1C (04/25/2023 3:59 PM CDT) Only the most recent of2 resultswithin the time period is included. Hemoglobin A1c 4.7 <5.7 % 04/25/2023 4:34 PM CDT [facility] Estimated Average Glucose 88 mg/dL 04/25/2023 4:34 PM CDT [facility] Blood BLOOD SPECIMEN / Unknown Venipuncture / Unknown 04/25/2023 3:59 PM CDT 04/25/2023 4:14 PM CDT Narrative [facility] - 04/25/2023 4:34 PM CDT HbA1c [...] Standardization Program (NGSP) certified method. Sita Doyle EXAMINATION [employer] ARCHITECT LAB - CHEMISTRY ORDERABLES [facility] [address] [place] [address] * (ABNORMAL) CBC W AUTO DIFFERENTIAL (04/25/2023 3:59 PM CDT) Only the most recent of24 resultswithin the time period is included. [facility] WBC 6.8 4.0 - 10.7 x10E9/L 04/25/2023 4:19 PM CDT [facility] RBC Count 4.89 3.90 - 5.20 x10E12/L 04/25/2023 4:19 PM CDT [facility] Hemoglobin 13.1 11.9 - 15.8 g/dL 04/25/2023 4:19 PM CDT [facility] Hematocrit 40.7 34.8 - 46.1 % 04/25/2023 4:19 PM CDT [facility] MCV 83.2 80.0 - 98.0 fL 04/25/2023 4:19 PM CDT [facility] MCH 26.8 26.7 - 33.6 pg 04/25/2023 4:19 PM CDT [facility] MCHC 32.2 31.7 - 36.3 g/dL 04/25/2023 4:19 PM CDT [facility] RDW-CV 16.8(H) 11.3 - 14.8 % 04/25/2023 4:19 PM CDT [facility] Platelet Count 461(H) 150 - 420 x10E9/L 04/25/2023 4:19 PM CDT [facility] MPV 9.1 7.8 - 11.4 fL 04/25/2023 4:19 PM CDT [facility] Neutrophil % 45.7 41.0 - 74.0 % 04/25/2023 4:19 PM CDT [facility] Lymphocyte % 44.3 17.0 - 47.0 % 04/25/2023 4:19 PM CDT [facility] Monocyte % 9.3 3.0 - 11.0 % 04/25/2023 4:19 PM CDT [facility] Eosinophil % 0.0 0.0 - 7.0 % 04/25/2023 4:19 PM CDT [facility] Basophil % 0.6 0.0 - 1.6 % 04/25/2023 4:19 PM CDT [facility] Immature Granulocytes % 0.1 0.0 - 1.0 % 04/25/2023 4:19 PM CDT [facility] Neutrophil Absolute 3.09 1.60 - 7.50 x10E9/L 04/25/2023 4:19 PM CDT [facility] Lymphocyte Absolute 3.00 1.00 - 4.40 x10E9/L 04/25/2023 4:19 PM CDT [facility] Monocyte Absolute 0.63 0.15 - 1.00 x10E9/L 04/25/2023 4:19 PM CDT [facility] Eosinophil Absolute 0.00 0.00 - 0.60 x10E9/L 04/25/2023 4:19 PM CDT [facility] Basophil Absolute 0.04 0.00 - 0.13 x10E9/L 04/25/2023 4:19 PM CDT [facility] Blood BLOOD SPECIMEN / Unknown Venipuncture / Unknown 04/25/2023 3:59 PM CDT 04/25/2023 4:14 PM CDT Sita Doyle EXAMINATION [employer] ARCHITECT LAB - HEMATOLOGY ORDERABLES [facility] [address] [place] [address] * (ABNORMAL) COMPREHENSIVE METABOLIC PANEL (04/25/2023 3:59 PM CDT) Only the most recent of66 resultswithin the time period is included. [facility] Glucose 85 70 - 105 mg/dL 04/25/2023 4:43 PM CDT [facility] Sodium 142 136 - 145 mmol/L 04/25/2023 4:43 PM CDT [facility] Potassium 4.1 3.5 - 5.1 mmol/L 04/25/2023 4:43 PM CDT [facility] Chloride 103 98 - 107 mmol/L 04/25/2023 4:43 PM CDT [facility] CO2 30(H) 22 - 29 mmol/L 04/25/2023 4:43 PM CDT [facility] Calcium 9.9 8.4 - 10.4 mg/dL 04/25/2023 4:43 PM CDT [facility] Anion Gap 9 6 - 16 mmol/L 04/25/2023 4:43 PM CDT [facility] BUN 12 5.3 - 18.7 mg/dL 04/25/2023 4:43 PM CDT [facility] Creatinine 1.04 0.57 - 1.11 mg/dL 04/25/2023 4:43 PM CDT [facility] Alkaline Phosphatase 94 40 - 150 U/L 04/25/2023 4:43 PM CDT [facility] ALT 15 0 - 55 U/L 04/25/2023 4:43 PM CDT [facility] AST 23 5 - 34 U/L 04/25/2023 4:43 PM CDT [facility] Protein Total 8.3 6.4 - 8.3 gm/dL 04/25/2023 4:43 PM CDT [facility] Albumin 4.3 3.4 - 5.0 gm/dL 04/25/2023 4:43 PM CDT [facility] Bilirubin Total 0.2 0.2 - 1.2 mg/dL 04/25/2023 4:43 PM CDT [facility] eGFR by CKD-EPI 79(L) >=90 mL/min/1.7 3 m2 04/25/2023 4:43 PM CDT [facility] Blood BLOOD SPECIMEN / Unknown Venipuncture / Unknown 04/25/2023 3:59 PM CDT 04/25/2023 4:14 PM CDT Sita Oksana Yanira EXAMINATION [employer] ARCHITECT LAB - CHEMISTRY ORDERABLES [facility] [address] [place] [address] * CARDIAC RHYTHM STRIP ORDER (04/24/2023 10:42 [...] Yellow Straw, Yellow 04/24/2023 3:09 AM CDT [facility] Clarity UA Slt Cloudy(A) Clear 04/24/2023 3:09 AM CDT [facility] Glucose UA Negative Negative 04/24/2023 3:09 AM CDT [facility] Bilirubin UA Negative Negative 04/24/2023 3:09 AM CDT [facility] Ketone UA Negative Negative 04/24/2023 3:09 AM CDT [facility] Specific [place] UA 1.012 1.005 - 1.030 04/24/2023 3:09 AM CDT [facility] Blood UA Negative Negative 04/24/2023 3:09 AM CDT [facility] pH UA 5.0 5.0 - 8.0 pH 04/24/2023 3:09 AM CDT [facility] Protein UA Negative Negative 04/24/2023 3:09 AM CDT [facility] Urobilinogen UA Negative Negative mg/dL 04/24/2023 3:09 AM CDT [facility] Nitrite UA Negative Negative 04/24/2023 3:09 AM CDT [facility] Leukocyte UA 1+(A) Negative 04/24/2023 3:09 AM CDT [facility] Urine Microscopy Urine microscopy to follow 04/24/2023 3:09 AM CDT [facility] Urine URINE SPECIMEN OBTAINED BY CLEAN CATCH PROCEDURE / Unknown Collection / Unknown 04/23/2023 11:42 PM CDT 04/24/2023 2:43 AM CDT Narrative [facility] - 04/24/2023 3:09 AM CDT Sita Doyle EXAMINATION [employer] ARCHITECT LAB - URINALYSIS ORDERABLES Performing Organization Address [facility] Co de Phone Number [facility] [address] [place] [address] * (ABNORMAL) URINE MICROSCOPIC ONLY (04/23/2023 11:42 PM CDT) Only the most recent of2 resultswithin the time period is included. RBC UA 0-2 0 - 5 # /hpf 04/24/2023 3:15 AM CDT [facility] WBC UA 11-20(A) 0 - 5 # /hpf 04/24/2023 3:15 AM CDT [facility] Bacteria UA 2+(A) None Seen 04/24/2023 3:15 AM CDT [facility] Squamous Epithelial Cells 6-10(A) 0 - 5 /hpf 04/24/2023 3:15 AM CDT [facility] Mucus UA 1+ /LPF 04/24/2023 3:15 AM CDT [facility] Urine URINE SPECIMEN OBTAINED BY CLEAN CATCH PROCEDURE / Unknown Collection / Unknown 04/23/2023 11:42 PM CDT 04/24/2023 2:43 AM CDT Narrative [facility] - 04/24/2023 3:15 AM CDT Sita Doyle EXAMINATION [employer] ARCHITECT LAB - URINALYSIS ORDERABLES Performing Organization Address [facility] Co de Phone Number [facility] [address] [place] [address] * (ABNORMAL) URINE DRUG SCREEN IMMUNOASSAY (04/23/2023 11:42 PM CDT) Only the most recent of7 resultswithin the time period is included. Amphetamines Screen Urine Not detected Not detected 04/24/2023 3:35 AM CDT [facility] Barbiturates Screen Urine Not detected Not detected 04/24/2023 3:35 AM CDT [facility] Benzodiazepines Screen Urine Detected(A) Not detected 04/24/2023 3:35 AM CDT [facility] Cannabinoids Screen Urine Detected(A) Not detected 04/24/2023 3:35 AM CDT [facility] Cocaine Screen Urine Not detected Not detected 04/24/2023 3:35 AM CDT [facility] Fentanyl Urine Detected(A) Not detected 04/24/2023 3:35 AM CDT [facility] Methadone Screen Urine Not detected Not detected 04/24/2023 3:35 AM CDT [facility] Opiate Screen Urine Not detected Not detected 04/24/2023 3:35 AM CDT [facility] Phencyclidine Screen Urine Not detected Not detected 04/24/2023 3:35 AM CDT [facility] Urine URINE / Unknown Collection / Unknown 04/23/2023 11:42 PM CDT 04/24/2023 2:43 AM CDT Narrative [facility] - 04/24/2023 3:35 AM CDT This [...] 300 ng/mL PHENCYCLIDINE(PCP) 25 ng/mL Sita Doyle EXAM[employer]ATION [employer] ARCHITECT LAB - URINE CHEM ISTRY ORDERABLES [facility] [address] [place] [address] * (ABNORMAL) CBC W/O DIFFERENTIAL (04/23/2023 3:46 AM CDT) Only the most recent of14 resultswithin the time period is included. [facility] WBC 6.5 4.0 - 10.7 x10E9/L 04/23/2023 4:34 AM CDT [facility] RBC Count 4.73 3.90 - 5.20 x10E12/L 04/23/2023 4:34 AM CDT [facility] Hemoglobin 12.8 11.9 - 15.8 g/dL 04/23/2023 4:34 AM CDT [facility] Hematocrit 39.7 34.8 - 46.1 % 04/23/2023 4:34 AM CDT [facility] MCV 83.9 80.0 - 98.0 fL 04/23/2023 4:34 AM CDT [facility] MCH 27.1 26.7 - 33.6 pg 04/23/2023 4:34 AM CDT [facility] MCHC 32.2 31.7 - 36.3 g/dL 04/23/2023 4:34 AM CDT [facility] RDW-CV 17.4(H) 11.3 - 14.8 % 04/23/2023 4:34 AM CDT [facility] Platelet Count 358 150 - 420 x10E9/L 04/23/2023 4:34 AM CDT [facility] MPV 9.8 7.8 - 11.4 fL 04/23/2023 4:34 AM CDT [facility] Blood BLOOD SPECIMEN / Unknown Venipuncture / Unknown 04/23/2023 3:46 AM CDT 04/23/2023 4:29 AM CDT Macarena Wang Held EXAMINATION [employer] ARCHITECT LAB - HEMATOLOGY OR DERABLES [facility] [address] [place] [address] * (ABNORMAL) BASIC METABOLIC PANEL (CALCIUM TOTAL) (04/23/2023 3:46 AM CDT) Only the most recent of37 resultswithin the time period is included. Glucose 91 70 - 105 mg/dL 04/23/2023 4:55 AM CDT [facility] Sodium 144 136 - 145 mmol/L 04/23/2023 4:55 AM CDT [facility] Potassium 4.2 3.5 - 5.1 mmol/L 04/23/2023 4:55 AM CDT [facility] Chloride 109(H) 98 - 107 mmol/L 04/23/2023 4:55 AM CDT [facility] CO2 24 22 - 29 mmol/L 04/23/2023 4:55 AM CDT [facility] Calcium 9.5 8.4 - 10.4 mg/dL 04/23/2023 4:55 AM CDT [facility] Anion Gap 11 6 - 16 mmol/L 04/23/2023 4:55 AM CDT [facility] BUN 13 5.3 - 18.7 mg/dL 04/23/2023 4:55 AM CDT [facility] Creatinine 0.99 0.57 - 1.11 mg/dL 04/23/2023 4:55 AM CDT [facility] eGFR by CKD-EPI 84(L) >=90 mL/min/1.7 3 m2 04/23/2023 4:55 AM CDT [facility] Blood BLOOD SPECIMEN / Unknown Venipuncture / Unknown 04/23/2023 3:46 AM CDT 04/23/2023 4:29 AM CDT Macarena Wang [facility] LAB - CHEMISTRY ORD ERABLES Performing Organization Address [facility] de Phone Number [facility] [id number] [place] [id number] * MAGNESIUM BLOOD (04/23/2023 3:46 AM CDT) Only the most recent of86 resultswithin the time period is included. Magnesium 2.0 1.6 - 2.6 mg/dL 04/23/2023 4:55 AM CDT [facility] Blood BLOOD SPECIMEN / Unknown Venipuncture / Unknown 04/23/2023 3:46 AM CDT 04/23/2023 4:29 AM CDT Macarena Wang Held [facility] LAB - CHEMISTRY ORD ERABLES Performing Organization Address [facility] de Phone Number [facility] [id number] [place] [phone] * HYDROXYINDOLACETIC ACID 5 URINE TIMED (04/23/2023 12:19 AM CDT) 5-HIAA 24 Hour Urine 2.6 Undefined mg/L 04/25/2023 6:09 PM CDT [facility] ([facility]) Comment: This test was developed and its [...] 04/25/2023 6:09 PM CDT Performed at: [address] [id number] Corporate Sales Trainer: Diana Simental MD, Phone: [phone] Patel Linares MD LAB - URINE COAL WASHER TENDER RY ORDERABLES [facility] ([facility]) [address] [place] [address] * EKG 12-LEAD (04/22/2023 8:51 AM CDT) Only the most recent of5 resultswithin the time period is included. Pathologist [facility] Ventricular Rate 88 BPM [facility] Atrial Rate 88 BPM [facility] P-R Interval 122 ms [facility] QRS Duration ms 78 ms [facility] Q-T Interval ms 396 ms [facility] QTC Calculation (Bezet) 479 ms [facility] Calculated P [place] 77 degrees [facility] Calculated R [place] 82 degrees [facility] Calculated T [place] 89 degrees [facility] Interpretation EKG Normal sinus rhythm Nonspecific ST abnormality Abnormal ECG When compared with ECG of 21-APR-2023 16:42, Nonspecific T wave abnormality now evident in Lateral leads Confirmed by ADAN JOHNSON, YARON ([id number]) on 04/22/2023 10:49:43 AM [facility] 04/22/2023 8:51 AM CDT 04/22/2023 10:49 AM CDT Macarena Taylor EXAM[employer]ATION [employer] ARCHITECT ECG ORDERABLES [facility] * (ABNORMAL) RENAL FUNCTION PANEL (04/22/2023 4:51 AM CDT) Only the most recent of11 resultswithin the time period is included. Glucose 84 70 - 105 mg/dL 04/22/2023 5:25 AM CDT [facility] Sodium 140 136 - 145 mmol/L 04/22/2023 5:25 AM CDT [facility] Potassium 4.6 3.5 - 5.1 mmol/L 04/22/2023 5:25 AM CDT [facility] Chloride 113(H) 98 - 107 mmol/L 04/22/2023 5:25 AM CDT [facility] CO2 22 22 - 29 mmol/L 04/22/2023 5:25 AM CDT [facility] Calcium 8.3(L) 8.4 - 10.4 mg/dL 04/22/2023 5:25 AM CDT [facility] Anion Gap 5(L) 6 - 16 mmol/L 04/22/2023 5:25 AM CDT [facility] BUN 5(L) 5.3 - 18.7 mg/dL 04/22/2023 5:25 AM CDT [facility] Creatinine 0.80 0.57 - 1.11 mg/dL 04/22/2023 5:25 AM CDT [facility] Albumin 3.2(L) 3.4 - 5.0 gm/dL 04/22/2023 5:25 AM CDT [facility] Phosphorus 4.5 2.3 - 4.7 mg/dL 04/22/2023 5:25 AM CDT [facility] eGFR by CKD-EPI >90 >=90 mL/min/1.7 3 m2 04/22/2023 5:25 AM T [facility] Blood BLOOD SPECIMEN / Unknown Venipuncture / Unknown 04/22/2023 4:51 AM CDT 04/22/2023 4:56 AM CDT Macarena Taylor [employer] LAB - CHEMISTRY ORD ERABLES [facility] [address] [place] [address] * (ABNORMAL) CK BLOOD (04/22/2023 4:51 AM CDT) Only the most recent of2 resultswithin the time period is included. CK 418(H) 29 - 168 U/L 04/22/2023 5:25 AM CDT [facility] Blood BLOOD SPECIMEN / Unknown Venipuncture / Unknown 04/22/2023 4:51 AM CDT 04/22/2023 4:56 AM CDT Macarena [facility] - CHEMISTRY ORD ERABLES Performing Organization Address City/[facility]/ZIP Co de Phone Number [facility] [address] [place] [address] * PHOSPHORUS BLOOD (04/21/2023 3:09 PM CDT) Only the most recent of71 resultswithin the time period is included. Phosphorus 3.7 2.3 - 4.7 mg/dL 04/21/2023 3:31 PM CDT [facility] Blood BLOOD SPECIMEN / Unknown Venipuncture / Unknown 04/21/2023 3:09 PM CDT 04/21/2023 3:12 PM CDT Liv Dixon MD LAB - CHEMISTRY [place] Performing Organization Address [facility] Co de Phone Number [facility] [address] [place] [id number] * LIPASE BLOOD (10/23/2022 4:35 PM CDT) Only the most recent of10 resultswithin the time period is included. Lipase 15 <60 U/L 10/23/2022 5:23 PM CDT [facility] Blood BLOOD SPECIMEN / Unknown Venipuncture / Unknown 10/23/2022 4:35 PM CDT 10/23/2022 4:59 PM CDT Viji Brizuela PA-C LAB - CHEMISTRY OR DERABLES Performing Organization Address City/[facility]/ZIP Co de Phone Number [facility] [address] [place] [address] * HCG BLOOD QUALITATIVE (10/23/2022 4:35 PM CDT) [facility] HCG Qual Serum Negative Negative 10/23/2022 5:24 PM CDT [facility] Blood BLOOD SPECIMEN / Unknown Venipuncture / Unknown 10/23/2022 4:35 PM CDT 10/23/2022 4:59 PM CDT Viji Brizuela PA-C LAB - CHEMISTRY OR DERABLES Performing Organization Address [facility] Co de Phone Number [facility] [address] [place] [address] * LAB RESULTS ORDER (08/25/2022 1:51 AM CDT) Narrative 08/25/2022 1:51 AM CDT Ordered by an unspecified provider. Scanned Document LAB - THERAPEUTIC DR NADJA MONITORING ORDERABLES * C-REACTIVE PROTEIN (08/22/2022 7:14 AM CDT) Only the most recent of6 resultswithin the time period is included. [facility] C-Reactive Protein <0.20 <=0.50 mg/dL 08/22/2022 8:26 AM CDT [facility] Blood BLOOD SPECIMEN / Unknown Lab Venipuncture / Unknown 08/22/2022 7:14 AM CDT 08/22/2022 7:43 AM CDT Hector Gonzalez MD LAB - CHEMISTRY [place] Performing Organization Address City/[facility] Co de Phone Number [facility] [address] [place] [address] * ERYTHROCYTE SEDIMENTATION RATE (08/22/2022 7:14 AM CDT) Only the most recent of4 resultswithin the time period is included. [facility] Erythrocyte Sedimentation Rate Automated 9 0 - 20 MM/HR 08/22/2022 7:50 AM CDT [facility] Blood BLOOD SPECIMEN / Unknown Lab Venipuncture / Unknown 08/22/2022 7:14 AM CDT 08/22/2022 7:43 AM CDT Hector Gonzalez MD LAB - HEMATOLOGY ORD ERABLES [facility] [address] [place] [address] * XR ABDOMEN KUB (08/21/2022 3:50 PM CDT) Only the most recent of12 resultswithin the time period is included. Anatomical Region Laterality Modality Abdomen Radiographic Sandra ging 08/21/2022 4:13 PM CDT Narrative 08/21/2022 4:13 PM CDT PROCEDURE: XR ABDOMEN KUB, DATE/TIME OF EXAM: 08/21/2022 4:05 PM, LOCATION [facility] INDICATION: Z46.59: Encounter for fitting and adjustment of other gastrointestinal appliance and device KUB portable at 1532 hours HISTORY: Dobbhoff tube placement A Dobbhoff tube superimposes the stomach > Interpreting Provider: Tom Kearns MD on 08/21/2022 4:13 PM Procedure Note Tom Kearns MD - 08/21/2022 PROCEDURE: XR ABDOMEN KUB, DATE/TIME OF EXAM: 08/21/2022 4:05 PM,LOCATION [facility] INDICATION: Z46.59: Encounter for fitting and adjustment [...] 0.8 <=2 mmol/L 2022 3:10 AM CDT [facility] Blood BLOOD SPECIMEN / Unknown Lab Venipuncture / Unknown 2022 2:01 AM CDT 2022 2:36 AM CDT Hal Oseguera MD LAB - CHEMISTRY [place] Performing Organization Address [facility]/ZIP Co de Phone Number [facility] [address] [place] [phone] * LACTIC ACID BLOOD REFLEX TO REPEAT (08/15/2022 9:24 PM CDT) Only the most recent of8 resultswithin the time period is included. Lactic Acid 1.8 <=2 mmol/L 08/15/2022 9:45 PM CDT [facility] Blood BLOOD SPECIMEN / Unknown Lab Venipuncture / Unknown 08/15/2022 9:24 PM CDT 08/15/2022 9:30 PM CDT Malorie Morgan DO LAB - CHEMISTRY [place] Performing Organization Address [facility] Co de Phone Number [facility] [address] [place] [phone] * LACTIC ACID REPEAT REFLEX (08/15/2022 5:58 PM CDT) Only the most recent of4 resultswithin the time period is included. Lactic Acid Repeat Reflex Order LACTIC ACID REPEAT HAS BEEN ORDERED 08/15/2022 8:01 PM CDT [facility] Blood BLOOD SPECIMEN / Unknown Venipuncture / Unknown 08/15/2022 5:58 PM CDT 08/15/2022 6:18 PM CDT Malorie Morgan DO LAB - CHEMISTRY [place] Performing Organization Address [facility]/ZIP Co de Phone Number [facility] [address] [place] [phone] * CT ANGIO ABDOMEN PELVIS (08/15/2022 [...] Quantitative <1.20 mIU/mL 08/16/19 12:58 PM CDT [facility] Blood BLOOD SPECIMEN / Unknown Venipuncture / Unknown 08/15/2022 12:24 PM CDT 08/15/2022 12:27 PM CDT Narrative [facility] - 08/15/2022 12:58 PM CDT hCG [...] Morgan DO LAB - CHEMISTRY [place] [facility] [address] [place], [place] [phone] * CT ABDOMEN PELVIS W CONTRAST (06/26/2022 [...] Dominick Saini MD on 06/26/2022 8:46 AM Narrative 06/26/2022 [...] included. Case Report Surgical Pathology Report Case: [id number] Authorizing Provider: Patel Corbett MD Collected: 06/21/2022 01:32 PM Ordering Location: [facility] Received: 06/21/2022 02:23 PM Pathologist: Rosa Castro MD Specimens: A) - Colon Ascending Biopsy B) - Rectal Biopsy 06/22/2022 8:55 AM CDT [facility] Final Diagnosis Large intestine, ascending, biopsy (A) - No histopathologic abnormality Large intestine, rectum, biopsy (B) - No histopathologic abnormality 06/22/2022 8:55 AM CDT [facility] Clinical History The patient is a 21-year-old woman with abdominal pain. Endoscopic procedure/findings: normal ascending colon and rectum, biopsied. 06/22/2022 8:55 AM CDT [facility] Gross Description The specimen is identified [...] in cassette B1. 06/22/2022 8:55 AM CDT [facility] Microscopic Description Microscopic examination substantiates the above diagnosis. There is no evidence of colitis. 06/22/2022 8:55 AM CDT [facility] Disclaimer All histochemical and/or immunohistochemical results are interpreted with controls that demonstrate appropriate staining reactions before reporting results. Note on use of immunocytochemistry reagents: This test was developed and its performance characteristic determined by [facility], Department of Laboratory Medicine. It has not [...] interpreted with caution. 06/22/2022 8:55 AM CDT [facility] Embedded Images 06/22/2022 8:55 AM CDT [facility] Pathology/Cytology RECTAL BIOPSY SPECIMEN / Unknown 06/21/2022 1:32 PM CDT 06/21/2022 2:23 PM CDT Comment:Pre-op diagnosis: Abdominal pain, generalized [R10.84] Pancolitis (CMS/HCC) [K51.00] Miscellaneous samples (specimen) RECTAL BIOPSY SPECIMEN / Unknown 06/21/2022 1:32 PM CDT 06/21/2022 2:23 PM CDT Comment:Pre-op diagnosis: Abdominal pain, generalized [R10.84] Pancolitis (CMS/HCC) [K51.00] Patel Corbett MD LAB - PATHOLOGY/CYTO LOGY ORDERABLES Performing Organization Address City/[facility] Co de Phone Number [address] [phone] * HELICOBACTER PYLORI UREASE (STL) (06/21/2022 1:16 PM CDT) Only the most recent of2 resultswithin the time period is included. Helicobacter pylori Urease Initial Negative Negative 06/22/2022 12:56 PM CDT [facility] Helicobacter pylori Urease Final Negative Negative 06/22/2022 12:56 PM CDT [facility] Microbiology GASTRIC BIOPSY SPECIMEN / Unknown Collection / Unknown 06/21/2022 1:16 PM CDT 06/21/2022 10:34 PM CDT Comment:Pre-op diagnosis: Abdominal pain, generalized [R10.84] Pancolitis (CMS/HCC) [K51.00] Patel Corbett MD LAB - MICROBIOLOGY O RDERABLES Performing Organization Address [facility] Co de Phone Number [address] [phone] * ENDOSCOPY, COLON, DIAGNOSTIC (06/21/2022 1:00 PM CDT) Report Endoscopy POC _ Patient Name: Kenyatta Chavez Procedure Date: 06/21/2022 1:00 PM Date of : 2000 Admit Type: Inpatient Age: 21 Gender: Female Ethnicity: Not or Race: White Attending MD: Patel Corbett MD, [id number] _ Procedure: Colonoscopy Indications: Abnormal CT of [...] screening purposes. Procedure Code(s): --- Professional --- 33126, Colonoscopy, flexible; with biopsy, single or multiple --- Technical --- 50520, Colonoscopy, flexible; with biopsy, single or multiple Diagnosis Code(s): --- Professional --- R93.3, Abnormal findings on diagnostic imaging of other parts of digestive tract --- Technical --- R93.3, Abnormal findings on diagnostic imaging of other parts of digestive tract CPT copyright 2020 [employer]. All rights reserved. The codes documented in this report are preliminary and upon vice president for philanthropy review may be revised to meet current compliance requirements. Patel Corbett MD 06/21/2022 1:44:37 PM This report has been signed electronically. Number of Addenda: 0 Note Initiated On: 06/21/2022 1:00 PM [facility] 06/21/2022 1:00 PM CDT Patel Corbett MD GI PROCEDURE ORDERAB LES [facility] * EGD (06/21/2022 12:59 PM CDT) Report Endoscopy POC _ Patient Name: Kenyatta Chavez Procedure Date: 06/21/2022 12:59 PM Date of : 2000 Admit Type: Inpatient Age: 21 Gender: Female Ethnicity: Not or Race: White Attending MD: Patel Corbett MD, [id number] _ Procedure: Upper GI endoscopy Indications: Epigastric [...] previous diet. Procedure Code(s): --- Professional --- 74168, Esophagogastroduo denoscopy, flexible, transoral; diagnostic, including collection of specimen(s) by brushing or washing, when performed (separate procedure) --- Technical --- 36123, Esophagogastroduo denoscopy, flexible, transoral; diagnostic, including collection of specimen(s) by brushing or washing, when performed (separate procedure) Diagnosis Code(s): --- Professional --- K44.9, Diaphragmatic hernia without obstruction or gangrene K29.70, Gastritis, unspecified, without bleeding R10.13, Epigastric pain --- Technical --- K44.9, Diaphragmatic hernia without obstruction or gangrene K29.70, Gastritis, unspecified, without bleeding R10.13, Epigastric pain CPT copyright 2020 [employer]. All rights reserved. The codes documented in this report are preliminary and upon vice president for philanthropy review may be revised to meet current compliance requirements. Patel Corbett MD 06/21/2022 1:36:34 PM This report has been signed electronically. Number of Addenda: 0 Note Initiated On: 06/21/2022 12:59 PM [facility] 06/21/2022 12:5 9 PM CDT Patel Corbett MD GI PROCEDURE ORDERAB LES [facility] * HCG URINE QUALITATIVE (06/20/2022 2:34 PM CDT) Only the most recent of2 resultswithin the time period is included. hCG Qualitative Urine Negative Negative 06/20/2022 3:02 PM CDT [facility] Urine URINE / Unknown Collection / Unknown 06/20/2022 2:34 PM CDT 06/20/2022 2:41 PM CDT Moi Bradshaw MD LAB - URINALYSIS ORD ERABLES [facility] [address] [place] [address] * Critical Care (06/18/2022 2:39 [...] day 5 JACQUELINE 06/23/2022 5:02 PM CDT [facility] Blood PERIPHERAL BLOOD / Unknown Venipuncture / Unknown 06/18/2022 2:23 PM CDT 06/18/2022 2:23 PM CDT Billy James MD LAB - MICROBIO LOGY ORDERABLES [facility] [address] [place] [address], [facility] [place] [phone] * FL UGI W SM BOWEL FOLLOW THRU (06/08/2022 2:47 PM CDT) Anatomical Region Laterality Modality Abdomen Radiographic Sandra ging 06/08/2022 11:0 9 AM CDT Impressions 06/08/2022 2:56 PM CDT IMPRESSION: 1.Mildly delayed gastric emptying. 2.Narrowing of the D3 segment of the duodenum without obstruction. Contrast passes the area promptly without difficulty. > Dictated by Gilles Real DO (Housekeeping And Laundry Team Leader) EXAM: Small bowel follow-through HISTORY: Evaluate for [...] difficulty. > Dictated by Gilles Real DO (Housekeeping And Laundry Team Leader) EXAM: Small bowel follow-through HISTORY: Evaluate for [...] RAPID TEST (06/07/2022 7:23 PM CDT) Pathologist [facility] Trichomonas Rapid Test Negative Negative 06/07/2022 8:27 PM CDT [facility] Microbiology VAGINAL SWAB / Unknown Collection / Unknown 06/07/2022 7:23 PM CDT 06/07/2022 8:13 PM CDT Mitchel Phan MD LAB - MICROBIOLOGY O STEPHANIE Performing Organization Address City/[facility]/ZIP Co de Phone Number [facility] [address] [place] [address] * CHLAMYDIA + GC AMPLIFIED PROBE (06/07/2022 3:24 PM CDT) Only the most recent of8 resultswithin the time period is included. [facility] Chlamydia Amplified Probe Negative Negative 06/08/2022 12:13 AM CDT [facility] GC Amplified Probe Negative Negative 06/08/2022 12:13 AM CDT [facility] Microbiology ENTIRE ENDOCERVIX / Unknown Collection / Unknown 06/07/2022 3:24 PM CDT 06/07/2022 3:29 PM CDT Narrative [facility] - 06/08/2022 12:13 AM CDT Results based on detection/no detection of ribosomal RNA by amplified method. Mitchel Phan MD LAB - MICROBIOLOGY O STEPHANIE Performing Organization Address [facility] Co de Phone Number [facility] [address] [place] [phone] * (ABNORMAL) PT-INR (06/07/2022 4:11 AM CDT) Pathologist [facility] PT 17.7(H) 12.1 - 14.8 sec 06/07/2022 5:25 AM CDT [facility] INR 1.5(H) 0.9 - 1.1 06/07/2022 5:25 AM CDT [facility] Blood BLOOD SPECIMEN / Unknown Lab Venipuncture / Unknown 06/07/2022 4:11 AM CDT 06/07/2022 5:08 AM CDT Narrative [facility] - 06/07/2022 5:25 AM CDT Conventional Warfarin Anticoagulant Therapy: INR Reference Range: 2.0-3.0 Intensive Warfarin Anticoagulant Therapy: INR Reference Range: 2.5-3.5 Ned Torres DO LAB - COAGULATION OR DERABLES Performing Organization Address [facility] Co de Phone Number [facility] [address] [place], [place] [phone] * (ABNORMAL) HYDROXYBUTYRATE BETA (06/06/2022 5:56 AM CDT) Only the most recent of2 resultswithin the time period is included. Beta-Hydroxybu tyrate 1.3(H) <0.6 mmol/L 06/06/2022 6:27 AM CDT [facility] Blood BLOOD SPECIMEN / Unknown Lab Venipuncture / Unknown 06/06/2022 5:56 AM CDT 06/06/2022 6:11 AM CDT [facility] - 06/06/2022 6:27 AM CDT Betahydroxybutyrate comment: This test replaces Serum Acetone testing.Results 0.6-1.5 mmol/L could require medical intervention. Results >1.5 mmol/L may be indicative of diabetic ketoacidosis. Use in conjunction with Serum Glucose levels. Ned Torres DO LAB - CHEMISTRY ORDE RABLES Performing Organization Address [facility] de Phone Number [facility] [address] [place] [address] * (ABNORMAL) URINE MICROSCOPIC ONLY REFLEX TO CULTURE (06/05/2022 10:01 PM CDT) Only the most recent of3 resultswithin the time period is included. Reflex Status Culture not indicated 06/05/2022 10:42 PM CDT [facility] RBC UA 0-2 0 - 5 # /hpf 06/05/2022 10:42 PM CDT [facility] WBC UA 0-5 0 - 5 # /hpf 06/05/2022 10:42 PM CDT [facility] Bacteria UA None Seen None Seen 06/05/2022 10:42 PM CDT [facility] Squamous Epithelial Cells 6-10(A) 0 - 5 /hpf 06/05/2022 10:42 PM CDT [facility] Mucus UA 1+ /LPF 06/05/2022 10:42 PM CDT [facility] Urine URINE SPECIMEN OBTAINED BY CLEAN CATCH PROCEDURE / Unknown Collection / Unknown 06/05/2022 10:01 PM CDT 06/05/2022 10:05 PM CDT Narrative [facility] - 06/05/2022 10:42 PM CDT Mitchel Phan MD LAB - URINALYSIS ORD ERABLES [facility] [address] [place], [place] [phone] * (ABNORMAL) URINALYSIS REFLEX MICROSCOPIC REFLEX CULTURE (06/05/2022 10:01 PM CDT) Only the most recent of3 resultswithin the time period is included. Color UA Yellow Straw, Yellow 06/05/2022 10:36 PM CDT [facility] Clarity UA Clear Clear 06/05/2022 10:36 PM CDT [facility] Glucose UA Trace(A) Negative 06/05/2022 10:36 PM CDT [facility] Bilirubin UA Negative Negative 06/05/2022 10:36 PM CDT [facility] Ketone UA 4+(A) Negative 06/05/2022 10:36 PM CDT [facility] Specific [place] UA 1.025 1.005 - 1.030 06/05/2022 10:36 PM CDT [facility] Blood UA Trace(A) Negative 06/05/2022 10:36 PM CDT [facility] pH UA 7.0 5.0 - 8.0 pH 06/05/2022 10:36 PM CDT [facility] Protein UA Trace(A) Negative 06/05/2022 10:36 PM CDT [facility] Urobilinogen UA Negative Negative mg/dL 06/05/2022 10:36 PM CDT [facility] Nitrite UA Negative Negative 06/05/2022 10:36 PM CDT [facility] Leukocyte UA Negative Negative 06/05/2022 10:36 PM CDT [facility] Urine Microscopy Urine microscopy to follow 06/05/2022 10:36 PM CDT [facility] Reflex Status Culture not indicated 06/05/2022 10:36 PM CDT [facility] Urine URINE SPECIMEN OBTAINED BY CLEAN CATCH PROCEDURE / Unknown Collection / Unknown 06/05/2022 10:01 PM CDT 06/05/2022 10:05 PM CDT Mitchel Phan MD LAB - URINALYSIS ORD ERABLES [facility] [address] [place] [address] * US PELVIS W DOPPLER OVARIES (06/05/2022 [...] DATE/TIME OF EXAM: 06/05/2022 7:40 PM, LOCATION [facility] Indication: R10.84: Generalized abdominal pain EXAMINATIONS: 1. [...] OVARIES, DATE/TIME OF EXAM: 37:40 PM, LOCATION [facility] Indication: R10.84: Generalized abdominal pain EXAMINATIONS: 1. [...] 10:01 PM Mitchel Phan MD ORDERABLES * TN INSERT INTRAUTERINE DEVICE (04/16/2022 10:30 AM PLANER OFF BEARER) Narrative Grace Casey MD - 04/16/2022 10:30 AM PLANER OFF BEARER Grace Casey MD 04/16/2022 10:31 AM IUD [...] fever. Mirena Buy and Bill Lot # [id number] [facility] # [id number] Grace Casey MD Grace Casey MD PROCEDURE/MINOR GRAY RGICAL ORDERABLES * HCG URINE QUALITATIVE - POCT () [facility] (04/16/2022) Test Urine Negative Negative Urine URINE / Unknown 04/16/2022 Grace Casey MD LAB - POINT OF CAR E ORDERABLES * CULTURE URINE (03/26/2022 1:32 AM PLANER OFF BEARER) Only the most recent of4 resultswithin the time period is included. Culture Urine <10,000 CFU/mL urogenital luis m JACQUELINE 03/27/2022 8:19 AM PLANER OFF BEARER [facility] Urine URINE SPECIMEN OBTAINED BY CLEAN CATCH PROCEDURE / Unknown Collection / Unknown 03/26/2022 1:32 AM PLANER OFF BEARER 03/26/2022 1:38 AM PLANER OFF BEARER Alexandra Tan MD LAB - MICROBIOLOGY O RDERABLES Performing Organization Address City/[facility]/ZIP Co de Phone Number [facility] [address] [place] [phone] * (ABNORMAL) PTH INTACT W/O CALCIUM (02/15/2022 4:24 AM PLANER OFF BEARER) PTH Intact 82.1(H) 8.7 - 77.1 pg/mL 02/15/2022 5:15 AM PLANER OFF BEARER [facility] Blood BLOOD SPECIMEN / Unknown Lab Venipuncture / Unknown 02/15/2022 4:24 AM PL[employer]ER OFF BEARER 02/15/2022 4:38 AM PLANER OFF BEARER Hal Oseguera MD LAB - CHEMISTRY [place] Performing Organization Address City/[facility]/ZIP Co de Phone Number [facility] [address] [place] [address] * CALCIUM IONIZED BLOOD (02/15/2022 4:24 AM PLANER OFF BEARER) Only the most recent of2 resultswithin the time period is included. Calcium Ionized 1.21 1.12 - 1.32 mmol/L 02/15/2022 5:03 AM PLANER OFF BEARER [facility] pH 7.40 7.35 - 7.45 pH 02/15/2022 5:03 AM PLANER OFF BEARER [facility] Blood BLOOD SPECIMEN / Unknown Lab Venipuncture / Unknown 02/15/2022 4:24 AM PLANER OFF BEARER 02/15/2022 4:37 AM PLANER OFF BEARER Hal Oseguera MD LAB - CHEMISTRY [place] Performing Organization Address City/[facility]/ZIP Co de Phone Number [facility] [address] [place], [place] [phone] * (ABNORMAL) IRON + TRANSFERRIN PANEL (02/15/2022 4:24 AM PLANER OFF BEARER) Only the most recent of3 resultswithin the time period is included. Iron 47(L) 50 - 170 ug/dL 02/15/2022 5:17 AM PLANER OFF BEARER [facility] Transferrin 204 180 - 382 mg/dL 02/15/2022 5:17 AM PLANER OFF BEARER [facility] TIBC Calculated 255 240 - 450 ug/dL 02/15/2022 5:17 AM PLANER OFF BEARER [facility] Iron Saturation % 18(L) 20 - 50 % 02/15/2022 5:17 AM PLANER OFF BEARER [facility] Blood BLOOD SPECIMEN / Unknown Lab Venipuncture / Unknown 02/15/2022 4:24 AM PLANER OFF BEARER 02/15/2022 4:37 AM PLANER OFF BEARER Hal Oseguera MD LAB - CHEMISTRY [place] Performing Organization Address [facility] Co de Phone Number [facility] [address] [place], [place] [id number] * FERRITIN (02/15/2022 4:24 AM PLANER OFF BEARER) Only the most recent of3 resultswithin the time period is included. Ferritin 64 5 - 204 ng/mL 02/15/2022 5:37 AM PL[employer]ER OFF BEARER [facility] Blood BLOOD SPECIMEN / Unknown Lab Venipuncture / Unknown 02/15/2022 4:24 AM PLANER OFF BEARER 02/15/2022 4:37 AM PLANER OFF BEARER Hal Oseguera MD LAB - CHEMISTRY [place] Performing Organization Address City/[facility]/ZIP Co de Phone Number [facility] [address] [place], [place] [phone] * PORPHYRINS AND PORPHOBILINOGEN (PBG) URINE (01/25/2022 4:42 PM PLANER OFF BEARER) Collection Time Hours Random hr 1:18 PM [facility] ([facility]) Comment: Per 24h calculations are provided to aid interpretation for collections with a duration of 24 hours and an average daily urine volume. For specimens with notable deviations in collection time or volume, ratios of analytes to a corresponding urine creatinine concentration may assist in result interpretation. Volume 24 Hour Urine Random mL 01/11 2 1:18 PM [facility]) Uroporphyrin umol/mol car cleaner 1 0 - 4 umol/mo l [employer] 2 1:18 PM [facility]) Heptacarboxyporphyrins Urine 0 0 - 2 umol/mo l [employer] INSPECTOR 2 1:18 PM [facility]) Coproporphyrin I umol/mol car cleaner Urine 3 0 - 6 umol/mo l AIR[employer] GE[employer] INSPECTOR 2 1:18 PM [facility]) Coproporphyrin III umol/mol car cleaner 10 0 - 14 umol/mo l [employer] INSPECTOR 2 1:18 PM [facility]) Porphobilinogen umol/L Urine < 5 0.0 - 8.8 umol/L 2 1:18 PM [facility] ([facility]) Comment: INTERPRETIVE INFORMATION: Porphobilinogen (PBG), Urine - per volume This test was developed and its performance characteristics determined by [facility] [employer]. It has not been cleared or approved by the US Food and Drug Administration. This test was performed in a CLIA certified laboratory and is intended for clinical purposes. Porphobilinogen 24 Hour Urine Not Applicable 0.0 - 11.0 umol/d 2 1:18 PM [facility]) Creatinine Urine 44 mg/dL 01/30/20 2 2 1:18 PM [facility]) Creatinine 24 Hour Urine Not Applicable 700 - 1600 mg/d 2 1:18 PM [facility]) Interpretation Porphyrin Negative 2 1:18 PM [facility]) Comment: INTERPRETIVE INFORMATION: Porphyrins, Fractionation and Quantitation, Urine Results are normalized to creatinine concentration and reported as a ratio of amounts (micromoles of porphyrin/moles of creatinine). This test was developed and its performance characteristics determined by [employer]. It has not been cleared or approved by the US Food and Drug Administration. This test was performed in a CLIA certified laboratory and is intended for clinical purposes. Performed by [employer], [address] [place] [id number] [email or web address], Hector Bradford MD, PHD, Lab. Director Urine URINE SPECIMEN OBTAINED BY CLEAN CATCH PROCEDURE / Unknown Collection / Unknown 01/25/2022 4:42 PM PLANER OFF BEARER 01/25/2022 5:00 PM PLANER OFF BEARER Josafat Krishnan MD LAB - URINE CHEMISTR Y ORDERABLES Performing Organization Address City/[facility]/ZIP Co de Phone Number [employer] ([facility]) [address] [place] [id number] [place] [address] * HCG URINE QUALITATIVE - POCT (IP) INTERFACED (01/23/2022 4:15 PM PLANER OFF BEARER) Only the most recent of10 resultswithin the time period is included. HCG Qual Urine Negative Negative 01/23/2022 4:26 PM PLANER OFF BEARER [facility] Urine URINE / Unknown 01/23/2022 4 :15 PM PLANER OFF BEARER 01/23/2022 4:26 PM PLANER OFF BEARER Provider Unknown LAB - POINT OF CARE ORDERABLES [facility] [address] [place] [id number] * TRICHOMONAS VAGINALIS AMPLIFIED PROBE (01/23/2022 12:33 PM PLANER OFF BEARER) Only the most recent of5 resultswithin the time period is included. Trichomonas vaginalis Amplified Probe Negative Negative 01/24/2022 11:39 AM PLANER OFF BEARER [facility]CRO[facility] Microbiology URINE / Unknown Collection / Unknown 01/23/2022 12:33 PM PLANER OFF BEARER 01/23/2022 12:48 PM PLANER OFF BEARER Narrative [facility]CROBI[facility] - 01/24/2022 11:39 AM PLANER OFF BEARER This test was developed and its performance characteristics determined by the [facility], [facility]. Urine specimens tested by the [facility] [place] have not been cleared or approved by [...] - MICROBIOLOGY O RDERABLES Performing Organization Address City/[facility]/ZIP Co de Phone Number [facility] [address] [place] [address], [facility] [phone] * HCG URINE QUAL POCT NOTIFICATION (01/23/2022 12:10 PM PLANER OFF BEARER) Only the most recent of8 resultswithin the time period is included. Comment Notification Label Only - See Separate Report 01/23/2022 1:32 PM PLANER OFF BEARER [facility] Urine URINE / Unknown 01/23/2022 1 2:10 PM PLANER OFF BEARER 01/23/2022 12:25 PM PLANER OFF BEARER Lida Sierra DO LAB - URINALYSIS ORD ERABLES Performing Organization Address City/[facility]/ZIP Co de Phone Number [facility] [place] [address] * (ABNORMAL) HEPATIC FUNCTION PANEL (01/23/2022 11:00 AM PLANER OFF BEARER) Protein Total 8.6(H) 6.0 - 8.3 g/dL 022 11:43 AM [facility] Albumin 4.3 3.4 - 5.0 g/dL 01/23/2022 11:43 AM [facility] Bilirubin Total 0.9 0.2 - 1.2 mg/dL 01/11 11:43 AM [facility] Bilirubin Conjugated 0.2 0.1 - 0.5 mg/dL 01/23/2022 11:43 AM [facility] Bilirubin Unconjugated 0.7 Unconjugated Bilirubin is a calculated value: Reference ranges have not been established. mg/dL 01/23/2022 11:43 AM [facility] Alkaline Phosphatase 113 40 - 150 U/L 01/23/2022 11:43 AM [facility] ALT 139(H) 5 - 55 U/L 01/23/2022 11:43 AM [facility] AST 71(H) 5 - 34 U/L 01/23/2022 11:43 AM [facility] Albumin/Globulin Ratio 1.0(L) 1.1 - 2.3 01/23/2022 11:43 AM [facility] Blood BLOOD SPECIMEN / Unknown Venipuncture / Unknown 01/23/2022 11:00 AM PLANER OFF BEARER 01/23/2022 11:28 AM PLANER OFF BEARER Lida Sierra LAB - CHEMISTRY [place] Performing Organization Address City/[facility]/ZIP Co de Phone Number [address] [address], [facility] [place] [phone] * (ABNORMAL) AMYLASE BLOOD (01/23/2022 11:00 AM PLANER OFF BEARER) Pathologist [facility] Amylase 215(H) 25 - 125 U/L 01/23/2022 12:43 PM [facility] Blood BLOOD SPECIMEN / Unknown Lab Venipuncture / Unknown 01/23/2022 11:00 AM PLANER OFF BEARER 01/23/2022 12:35 PM PLANER OFF BEARER Lida Sierra LAB - CHEMISTRY [place] [address] [address], [place] [phone] * C. TRACHOMATIS + N. GONORRHOEAE + [...] AM CDT 12/08/2021 2:08 PM CDT Narrative [facility] LAB - 12/13/2021 10:46 AM CDT [...] Gen-Probe Aptima Trichomonas vaginalis Assay on the Avatar Reality system and rectal and pharyngeal swabs with Gen-Probe Aptima combo 2 were determined by the Molecular Diagnostics Laboratory at [facility]. They have not been cleared or [...] Karrie Mack MD LAB - MICROBIOLOGY ORDERABLES [facility] LAB [address] [place] [address], [facility] [place] [phone] * HEPATITIS C AB W/RFLX TO HCV RNA QN PCR (12/07/2021) Hepatitis C Antibody NON-REACTI VE NON-REACT KASIA [facility] Signal to Cut-Off 0.08 <1.00 [facility] Comment: HCV antibody was non-reactive. There is no laboratory evidence of HCV infection. In most cases, no further action is required. However, if recent HCV exposure is suspected, a test for HCV RNA (test code 55093) is suggested. For additional information please refer to http://education.[employer]/faq/RTH57h5 (This link is being provided for informational/ educational purposes only.) Test Performed at: [facility] [id number] [place] [address] PURVI PABLO DO,MPH Blood BLOOD SPECIMEN / Unknown 12/07/2021 12/07/2021 10:47 AM CDT Karrie Mack MD LAB - CHEMISTRY ORD ERABLES Performing Organization Address [facility] Co de Phone Number [address] [address] * HEPATITIS B SURFACE ANTIGEN W RFLX CONFIRMATION (12/07/2021) Hepatitis B Virus Surface Antigen NON-REACT KASIA NON-REACT KASIA [facility] Comment: Test Performed at: [facility] [id number] [email or web address] [address] PURVI PABLO DO,MPH Confirmation [facility] Comment: Test Performed at: [facility] [address] [place] [address] PURVI PABLO DO,MPH Blood BLOOD SPECIMEN / Unknown 12/07/2021 12/07/2021 10:47 AM CDT Karrie Mack MD LAB - CHEMISTRY ORD ERABLES Performing Organization Address [facility] [place] [address] * (ABNORMAL) URINALYSIS W/MICROSCOPIC NO CULTURE (10/30/2021 5:16 AM CDT) Only the most recent of6 resultswithin the time period is included. Color UA Straw Straw, Yellow 10/30/2021 6:00 AM CDT [facility] Clarity UA Clear Clear 10/30/2021 6:00 AM CDT [facility] Specific [place] UA 1.008 1.005 - 1.030 10/30/2021 6:00 AM CDT [facility] pH UA 6.0 5.0 - 8.0 pH 10/30/2021 6:00 AM CDT [facility] Protein UA Negative Negative 10/30/2021 6:00 AM CDT [facility] Glucose UA Negative Negative 10/30/2021 6:00 AM CDT [facility] Ketone UA 2+(A) Negative 10/30/2021 6:00 AM [facility] Bilirubin UA Negative Negative 10/30/2021 6:00 AM [facility] Blood UA Negative Negative 10/30/2021 6:00 AM [facility] Nitrite UA Negative Negative 10/30/2021 6:00 AM [facility] Leukocyte Esterase Negative Negative 10/30/2021 6:00 AM [facility] Urobilinogen UA Negative Negative mg/dL 10/30/2021 6:00 AM [facility] RBC UA 0-2 None Seen, 0-2, 3-5 /HPF 10/30/2021 6:00 AM [facility] WBC UA 0-5 None Seen, 0-5 /HPF 10/30/2021 6:00 AM [facility] Squamous Epithelial Cells UA 0-2 None Seen, 0-2, 3-5 /HPF 10/30/2021 6:00 AM [facility] Mucus UA 1+ /LPF 10/30/2021 6:00 AM [facility] Hyaline Casts UA 0-2 None Seen, 0-2 /LPF 10/30/2021 6:00 AM [facility] Urine URINE SPECIMEN OBTAINED BY CLEAN CATCH PROCEDURE / Unknown Collection / Unknown 10/30/2021 5:16 AM CDT 10/30/2021 5:49 AM CDT Narrative [facility] - 10/30/2021 6:00 AM CDT Henrique Santos MD LAB - URINALYSIS ORD ERABLES [facility] [address] [place] [address], [facility] [phone] * EKG 15-LEAD (10/29/2021 4:51 PM CDT) Only the most recent of8 resultswithin the time period is included. Ventricular Rate 104 BPM CG MUSE Atrial Rate 104 BPM CG MUSE P-R Interval 124 ms CG MUSE QRS Duration ms 74 ms CG MUSE Q-T Interval ms 352 ms CG MUSE QTC Calculation (Bezet) 463 ms CG MUSE Calculated P [place] 71 degrees CG MUSE Calculated R [place] 71 degrees CG MUSE Calculated T [place] 44 degrees CG MUSE Interpretation EKG Sinus tachycardia Nonspecific ST and T wave abnormality When compared with ECG of 01-FEB-2021 13:56, Confirmed by FLOR JOHNSON, DARYL ([id number]) on 10/30/2021 12:07:46 PM CG MUSE 10/29/2021 [...] DATE/TIME OF EXAM: 10/29/2021 4:08 PM, LOCATION [facility] INDICATION: R11.2: Nausea with vomiting, unspecified ADDITIONAL [...] DATE/TIME OF EXAM: 10/29/2021 4:08 PM, LOCATION [facility] INDICATION: R11.2: Nausea with vomiting, unspecified ADDITIONAL [...] of3 resultswithin the time period is included. [facility] GGT 16 9 - 64 Units/L 10/29/2021 3:00 PM CDT [facility] Blood BLOOD SPECIMEN / Unknown Venipuncture / Unknown 10/29/2021 1:49 PM CDT 10/29/2021 2:35 PM CDT Trey Ramirez MD LAB - CHEMISTRY [place] [facility] Organization Address City/State/ZIP Co de Phone Number [address] [address], [facility] [place] [phone] * (ABNORMAL) BLOOD GAS+COOX+LYTES+METAB CAPILLARY POCT (08/11/2021 3:39 PM CDT) [facility] pH Capillary 7.38 7.35 - 7.45 pH 08/11/2021 3:39 PM CDT [facility] pO2 Capillary 76 Interpret within clinical context mmHg 08/11/2021 3:39 PM CDT [facility] pCO2 Capillary 21 Interpret within clinical context mmHg 08/11/2021 3:39 PM CDT [facility] HCO3 Capillary 12.4(L) 20.0 - 30.0 mmol/L 08/11/2021 3:39 PM CDT [facility] BE Capillary -10.7(L) -2.0 - 2.0 mmol/L 08/11/2021 3:39 PM CDT [facility] Oxyhemoglobin Capillary 95.0 % 08/11/2021 3:39 PM [facility] Deoxyhemoglobin (HHB) % 3.2 % 08/11/2021 3:39 PM [facility] Methemoglobin Capillary <0.8 0.0 - 2.0 % 08/11/2021 3:39 PM [facility] Carboxyhemoglobin Capillary 1.2 0.0 - 2.0 % 08/11/2021 3:39 PM [facility] Comment:Carboxyhemoglobin No rmal Concentration: Non-smokers: 0-2%; Smokers: 0- 9%; Toxic: >20% O2 Content Capillary 16.3 Interpret within clinical context mg/dL 08/11/2021 3:39 PM [facility] Hemoglobin by COOX 12.2 12.0 - 16.0 g/dL 08/11/2021 3:39 PM [facility] O2 Saturation Capillary 97 95 - 99 % 08/11/2021 3:39 PM [facility] Sodium Whole Blood 138 135 - 145 mmol/L 08/11/2021 3:39 PM [facility] Potassium Whole Blood 4.0 3.5 - 5.5 mmol/L 08/11/2021 3:39 PM [facility] Chloride WB 102 101 - 111 mmol/L 08/11/2021 3:39 PM [facility] Calcium Ionized 1.23 mmol/L 3:39 PM [facility] Ionized Calcium pH Adjusted 1.22 1.19 - 1.34 mmol/L 08/11/2021 3:39 PM [facility] Anion Gap (AG) Arterial 28(H) 8 - 18 mmol/L 08/11/2021 3:39 PM [facility] Glucose WB 83 70 - 105 mg/dL 08/11/2021 3:39 PM [facility] Lactic Acid Whole Blood 3.8(HH) <=2.0 mmol/L 08/11/2021 3:39 PM [facility] Blood CAPILLARY BLOOD / Unknown 08/11/2021 3:39 PM T 08/15/2021 8:58 AM [facility] - 08/11/2021 3:39 PM CDT Notified: Vinny TAVARES RN, Notified By: Vinny MIJARES, Notification Time: 1540, Read back and verified? Y Zaira Ledbetter MD LAB - POINT OF CARE ORDERABLES Performing Organization Address City/[facility]/ZIP Co de Phone Number [facility] [address] [place] [address] * (ABNORMAL) PT-INR [facility] (08/10/2021 11:33 AM CDT) PT 15.2(H) 12.1 - 14.8 Seconds 08/10/2021 12:37 PM CDT [facility] INR 1.2 See Comment 08/10/2021 12:37 PM CDT [facility] Comment:The suggested therap eutic range for standard coumadin (warfarin) therapy is an INR of 2.0-3.0. For high-risk patients (Mechanical Mitral Valve Prosthesis, etc.), the suggested prophylactic therapeutic range is an INR of 2.5-3.5. Blood BLOOD SPECIMEN / Unknown Lab Venipuncture / Unknown 08/10/2021 11:33 AM CDT 08/10/2021 11:50 AM CDT Zaira Ledbetter MD LAB - COAGULATION OR DERABLES Performing Organization Address [facility] Co de Phone Number [address] [address], [facility] [place] [phone] * RPR W REFLEX TO TITER (MONITOR) (08/10/2021 11:33 AM CDT) RPR Monitor Nonreactive Nonreactive 08/10/2021 3:29 PM CDT [facility] Blood BLOOD SPECIMEN / Unknown Lab Venipuncture / Unknown 08/10/2021 11:33 AM CDT 08/10/2021 11:41 AM CDT Zaira Ledbetter MD LAB - CHEMISTRY ORDE RABLES Performing Organization Address City/[facility]/ZIP Co de Phone Number [address] [address], [place] [phone] * (ABNORMAL) SALICYLATE LEVEL BLOOD (08/10/2021 11:33 AM CDT) Salicylate <5(L) 15 - 30 mg/dL 08/10/2021 12:21 PM CDT [facility] Blood BLOOD SPECIMEN / Unknown Lab Venipuncture / Unknown 08/10/2021 11:33 AM CDT 08/10/2021 11:41 AM CDT Narrative [facility] - 08/10/2021 12:21 PM CDT This test is not intended for use with low-dose aspirin therapy. Most patients on low-dose aspirin for cardiovascular prophylaxis will have serum concentrations near or below the lower limit of the analytical range. Zaira Ledbetter MD LAB - CHEMISTRY [place] [address] [address], [facility] [place] [phone] * TRANSFERRIN (08/10/2021 11:30 AM CDT) Transferrin 329 174 - 382 mg/dL 08/11/2021 3:44 PM CDT [facility] Blood BLOOD SPECIMEN / Unknown Lab Venipuncture / Unknown 08/10/2021 11:30 AM CDT 08/11/2021 3:30 PM CDT Zaira Ledbetter MD LAB - CHEMISTRY [place] [address] [address], [facility] [place] [phone] * IRON BLOOD (08/10/2021 11:30 AM CDT) Iron 48 40 - 150 ug/dL 08/11/2021 3:44 PM CDT [facility] Blood BLOOD SPECIMEN / Unknown Lab Venipuncture / Unknown 08/10/2021 11:30 AM CDT 08/11/2021 3:30 PM CDT Zaira Ledbetter MD LAB - CHEMISTRY [place] Performing Organization Address [facility]/ZIP Co de Phone Number [facility] [address] [place] [address], [facility] [place] [phone] * ALCOHOL ETHYL BLOOD (08/10/2021 7:56 AM CDT) Ethanol (mg/dL) <10 <=10 mg/dL 8:21 AM CDT [facility] Ethanol Calculated (g/dL) <0.010 <0.010 g/dL 08/10/2021 8:21 AM CDT [facility] Blood BLOOD SPECIMEN / Unknown Lab Venipuncture / Unknown 08/10/2021 7:56 AM CDT 08/10/2021 8:03 AM CDT Narrative [facility] - 08/10/2021 8:21 AM CDT Ethanol Interp <10: None Detected. Depression of PHOTOGRAPHIC RESTORER: >100 mg/dl Potentially Critical: >250 mg/dl Potentially [...] - CHEMISTRY [place] Performing Organization Address [facility] Co de Phone Number [place] [phone] [place] [address], [facility] [place] [phone] * DRUG SCREEN TOX COMPREHESIVE URINE PANEL (08/10/2021 6:33 AM CDT) Drug Screen Urine Comprehensive Panel 08/10/2021 9:55 AM CDT [facility] Urine URINE / Unknown Collection / Unknown 08/10/2021 6:33 AM CDT 08/10/2021 6:39 AM CDT Zaira Ledbetter MD LAB - URINE CHEMISTR Y ORDERABLES Performing Organization Address City/[facility]/ZIP Co de Phone Number [facility] ATTN Dr Lex Keita [address] [place] [address], [facility] * ACETAMINOPHEN LEVEL (08/10/2021 4:02 AM CDT) Acetaminophen <3.0 <3.0 ug/mL 08/10/2021 4:27 AM T [facility] Blood BLOOD SPECIMEN / Unknown Venipuncture / Unknown 08/10/2021 4:02 AM CDT 08/10/2021 4:02 AM CDT Narrative [facility] - 08/10/2021 4:27 AM CDT [...] may alter the peak level. Contact the [facility] at or reserved for healthcare professionals to assist you in evaluating potentially toxic acetaminophen levels. Lida Sierra DO LAB - CHEMISTRY [place] [facility] [address] [place] [address], [facility] [place] [phone] * (ABNORMAL) DIFFERENTIAL MANUAL (08/10/2021 2:01 AM CDT) Only the most recent of5 resultswithin the time period is included. WBC (corrected for NRBC) 15.2 10 3/uL 08/10/2021 4:36 AM CDT [facility] Total Cell Count 100 08/11/19 22 4:36 AM T [facility] Neutrophils Absolute Manual 13.53(H) 1.40 - 8.60 10 3/uL 08/10/2021 4:36 AM T [facility] Comment:(BANDS+SEGS) x WBC = NEUT # (ANC) Lymphocyte Absolute Manual 1.22 0.60 - 5.90 10 3/uL 08/10/2021 4:36 AM T [facility] Monocytes Absolute Manual 0.46 0.18 - 1.43 10 3/uL 08/10/2021 4:36 AM [facility] Neutrophil % Manual 89(H) 31 - 78 % 08/10/2021 4:36 AM [facility] Lymphocyte % Manual 8(L) 13 - 54 % 08/10/2021 4:36 AM [facility] Monocytes % Manual 3(L) 4 - 13 % 08/10/2021 4:36 AM [facility] Platelet Estimate Adequate Adequate 08/10/2021 4:36 AM [facility] Anisocytosis Occasional( A) None 08/10/2021 4:36 AM [facility] Ovalocytes Occasional( A) None 08/10/2021 4:36 AM [facility] Blood BLOOD SPECIMEN / Unknown Venipuncture / Unknown 08/10/2021 2:01 AM CDT 08/10/2021 2:20 AM CDT Danielle Ramirez MD LAB - HEMATO LOGY ORDERABLES Performing Organization Address City/State/[facility] Co de Phone Number [address] [address], [facility] [place] [phone] * SARS-COV-2 (COVID-19) FLU A/B RSV PCR RAPID (08/10/2021 1:42 AM CDT) COVID-19 PCR Not detected Not detected 08/11/19 22 2:59 AM CDT [facility] Influenza A PCR Not detected Not detected 08/10/2021 2:59 AM CDT [facility] Influenza B PCR Not detected Not detected 08/10/2021 2:59 AM CDT [facility] RSV PCR Not detected Not detected 08/10/2021 2:59 AM CDT [facility] Microbiology SPECIMEN FROM NASOPHARYNGEAL STRUCTURE / Unknown Collection / Unknown 08/10/2021 1:42 AM CDT 08/10/2021 2:11 AM CDT Narrative [facility] - 08/10/2021 2:59 AM CDT [...] Ramirez MD LAB - MICROB IOLOGY ORDERABLES [facility] [address] [place] [address], [facility] [place] [phone] * SARS-COV-2 (COVID-19) RAPID (06/27/2021 5:11 PM CDT) COVID-19 PCR Not detected Not detected 06/28/19 6:24 PM CDT [facility] Microbiology SPECIMEN FROM NASOPHARYNGEAL STRUCTURE / Unknown Collection / Unknown 06/27/2021 5:11 PM CDT 06/27/2021 5:30 PM CDT Narrative [facility] - 06/27/2021 6:24 PM CDT [...] Sams MD LAB - MICROBIOLOGY O RDERABLES [facility] [address] [place] [address], [facility] [phone] * (ABNORMAL) URINALYSIS - POCT (IP) BEAKER INTERFACE (05/08/2021 10:14 AM CDT) Only the most recent of6 resultswithin the time period is included. Color UA POCT Yellow Straw, Yellow, Dark Yellow, Light Yellow 05/08/2021 10:20 AM [facility] Clarity UA POCT Clear Clear 2 10:20 AM [facility] Specific [place] UA POCT >=1.030 1.005 - 1.030 05/08/2021 10:20 AM [facility] pH UA POCT 5.5 5.0 - 8.0 pH 05/08/2021 10:20 AM [facility] Protein UA POCT Negative Negative 2 10:20 AM [facility] Blood UA POCT 2+(A) Negative 05/08/2021 10:20 AM [facility] Leukocyte UA POCT 1+(A) Negative 05/08/2021 10:20 AM [facility] Nitrite UA POCT Negative Negative 2 10:20 AM [facility] Glucose UA POCT Negative Negative 2 10:20 AM [facility] Ketone UA POCT Negative Negative 05/08/2021 10:20 AM [facility] Bilirubin UA POCT Negative Negative 05/08/2021 10:20 AM T [facility] Urobilinogen UA POCT 0.2 0.1 - 1.0 EU/dL 05/08/2021 10:20 AM T [facility] Urine URINE / Unknown 05/08/2021 1 0:14 AM CDT 05/08/2021 10:20 AM CDT Daphnie Gillespie MD LAB - POINT OF CARE ORDERABLES [facility] [address] [place] [address] * URINALYSIS - POCT (IP) NOTIFICATION (05/08/2021 10:06 AM CDT) Only the most recent of4 resultswithin the time period is included. Comment Notification 05/08/2021 11:30 AM CDT [facility] Urine URINE / Unknown 05/08/2021 1 0:06 AM CDT 05/08/2021 10:12 AM CDT Daphnie Gillespie MD LAB - URINALYSIS ORD ERABLES Performing Organization Address City/[facility]/ZIP Co de Phone Number [facility] [address] [place] [phone] * SARS-COV-2 (COVID-19) INTERNAL (02/10/2021 10:57 AM PL[employer] OFF BEARER) Only the most recent of4 resultswithin the time period is included. COVID-19 PCR Not detected Not detected 02/10/2021 5:47 PM PLANER OFF BEARER [facility] MICROBIOLOGY Microbiology SPECIMEN FROM NASOPHARYNGEAL STRUCTURE / Unknown Collection / Unknown 02/10/2021 10:57 AM [employer] OFF BEARER 02/10/2021 10:57 AM PL[employer]ER OFF BEARER Narrative [facility] MICROBIOLOGY - 02/10/2021 5:47 PM PLANER OFF BEARER This nucleic acid amplification assay performance was validated by [facility]. This test has been [...] Gillespie MD LAB - MICROBIOLOGY O RDERABLES [facility] MICROBIOLOGY [address] [place] [address], [facility] [place] [phone] * QUANTIFERON-TB GOLD PLUS 4-TUBE (02/01/2021 1:59 PM PLANER OFF BEARER) [facility] QuantiFERON NIL 0.01 IU/mL 1:01 PM PL[employer]ER OFF BEARER [employer] ([facility]) Comment: Performed By: [employer] [place] [id number] Engineer Second Assistant: Katarzyna Sharp MD QuantiFERON TB Gold Plus Negative Negative 02/04/2021 1:01 PM PL[employer] OFF BEARER [employer] ([facility]) Comment: Interpretive Data: Quantiferon TB Gold [...] Mycobacterium tuberculosis Infection --- [place], 2010 (http://www.cdc.gov/mmwr/preview/mmwrhtml/ug1991h3.htm), for more information concerning test performance in low-prevalence populations and use in occupational screening. QuantiFERON Plus TB1 Minus NIL 0.00 0.00 - 0.34 IU/mL 02/04/2021 1:01 PM PL[employer]ER OFF BEARER [facility] ([facility]) QuantiFERON Plus TB2 Minus NIL 0.00 0.00 - 0.34 IU/mL 02/04/2021 1:01 PM PL[employer]ER OFF BEARER [facility] ([facility]) QuantiFERON Mitogen Minus NIL 7.04 IU/mL 02/04/2021 1:01 PM PL[employer]ER OFF BEARER [facility] ([facility]) Blood BLOOD SPECIMEN / Unknown Lab Venipuncture / Unknown 02/01/2021 1:59 PM PL[employer]ER OFF BEARER 02/01/2021 2:46 PM [employer]ER OFF BEARER Daphnie Gillespie MD LAB - CHEMISTRY [place] [facility] Organization Address City/State/ZIP Co de Phone Number [facility]) [address] * [place] INSERT INTRAUTERINE DEVICE (01/19/2021 9:31 AM PLANER OFF BEARER) Narrative Karrie Mack MD - 01/19/2021 9:31 AM PL[employer]ER OFF BEARER Karrie Mack MD 01/19/2021 9:32 AM IUD [...] or inability to palpate strings. Lot # [id number] Exp: 03/2023 [facility]# [id number] The Device was buy and bill yes Karrie Mack MD Karrie Mack MD PROCEDURE/MINOR DEBBIE GICAL ORDERABLES * SYPHILIS ANTIBODY CASCADING REFLEX (01/04/2021 5:38 PM PL[employer]ER OFF BEARER) Treponema pallidum Antibody Non-react kasia Non-react kasia 01/04/2021 6:40 PM PLANER OFF BEARER [facility] Comment: No Laboratory evidence of syphilis infection. Note: Circulating antibodies may be low or undetectable in early infection. If recent exposure is suspected, re-draw sample in 2-4 weeks and repeat testing. Blood BLOOD SPECIMEN / Unknown Lab Venipuncture / Unknown 01/04/2021 5:38 PM PL[employer]ER OFF BEARER 01/04/2021 5:49 PM PL[employer]ER OFF BEARER Rosa Coles MD LAB - SEROLOGY OR DERABLES [facility] [address] [place] [phone], [facility] [place] [phone] * (ABNORMAL) URINALYSIS W/MICROSCOPIC REFLEX TO CULTURE (01/03/2021 1:49 PM PL[employer]ER OFF BEARER) Color UA Yellow Straw, Yellow 01/03/2021 2:26 PM PL[employer]ER OFF BEARER [facility] Clarity UA Slt Cloudy(A) Clear 01/03/2021 2:26 PM PL[employer]ER OFF BEARER [facility] Specific [place] UA 1.030 1.005 - 1.030 01/03/2021 2:26 PM [facility] pH UA 7.0 5.0 - 8.0 pH 01/03/2021 2:26 PM [facility] Protein UA 3+(AA) Negative 01/03/2021 2:26 PM PL[employer]ER OFF BEARER [facility] Glucose UA Negative Negative 01/03/2021 2:26 PM [facility] Ketone UA 2+(AA) Negative 01/03/2021 2:26 PM [facility] Bilirubin UA Negative Negative 01/03/2021 2:26 PM [facility] Blood UA Negative Negative 01/03/2021 2:26 PM [facility] Nitrite UA Negative Negative 01/03/2021 2:26 PM [facility] Leukocyte Esterase Negative Negative 01/03/2021 2:26 PM [facility] Urobilinogen UA Negative Negative mg/dL 01/03/2021 2:26 PM [facility] RBC UA 0-2 None Seen, 0-2, 3-5 /HPF 01/03/2021 2:26 PM [facility] WBC UA 0-5 None Seen, 0-5 /HPF 01/03/2021 2:26 PM [facility] Squamous Epithelial Cells UA 3-5 None Seen, 0-2, 3-5 /HPF 01/03/2021 2:26 PM [facility] Mucus UA 3+ /LPF 01/03/2021 2:26 PM [facility] Transitional Epithelial Cells UA 0-2(A) None Seen /HPF 01/03/2021 2:26 PM [facility] Urine URINE SPECIMEN OBTAINED BY CLEAN CATCH PROCEDURE / Unknown Collection / Unknown 01/03/2021 1:49 PM [employer] OFF BEARER 01/03/2021 1:56 PM PLANER OFF BEARER [facility] - 01/03/2021 2:26 PM PL[employer]ER OFF BEARER Culture Not Indicated Mellissa Duvall MD LAB - URINALYSIS ORD ERABLES [facility] [address] [place] [phone], [facility] [place] [phone] * (ABNORMAL) SPECIFIC GRAVITY URINE (04/08/2020 4:12 AM PL[employer]ER OFF BEARER) Only the most recent of48 resultswithin the time period is included. Specific [place] UA 1.001(L) 1.005 - 1.030 04/08/2020 4:25 AM [facility] Urine URINE / Unknown Collection / Unknown 04/08/2020 4:12 AM [employer]ER OFF BEARER 04/08/2020 4:19 AM [employer]ER OFF BEARER Narrative [facility] - 04/08/2020 4:25 AM PL[employer]ER OFF BEARER Shannon Batres MD LAB - URINALYSIS ORD ERABLES Performing Organization Address [facility]/ZIP Co de Phone Number [facility] [address] [place] [phone] * TRIGLYCERIDES BLOOD (03/31/2020 4:57 PM PL[employer]ER OFF BEARER) Only the most recent of34 resultswithin the time period is included. Triglycerides 134 <150 mg/dL 03/31/2020 5:22 PM PL[employer]ER OFF BEARER [facility] Blood BLOOD SPECIMEN / Unknown Line Draw / Unknown 03/31/2020 4:57 PM [employer] OFF BEARER 03/31/2020 5:00 PM [employer] OFF BEARER Shannon Batres MD LAB - CHEMISTRY ORDE RABLES Performing Organization Address [facility] Co de Phone Number [facility] [address] [place] [address] * ECHO CONSULT - PEDIATRIC (03/21/2020 8:30 AM PL[employer]ER OFF BEARER) Only the most recent of2 resultswithin the time period is included. 03/21/2020 8:30 AM [employer] OFF BEARER Narrative Procedure Note Surya Ledbetter MD - 03/21/[address] [place] [phone] Fax Non-Congenital Transthoracic Report Pat.Name: KENYATTA CHAVEZ Keke.ID: [id number] .Date: 03/21/2020 Refer.MD: YADIRA LANGFORD Exam Time: 8:30:00 AM Study Type:Non-Congenital TTE Height: 159cm Weight: 41.7kg BSA: 1.37 m2 Age: 7 2000,19Y Sex: FEMALE BP: 159/42 Sonogrphr: Ermina Keric, RDCS Pat. Stat.:Inpatient Room: 3002 CPT - 4: 76384, 88514, 55847 Reason for Study: Severe protein-calorie malnutrition SUMMARY: [...] Batres MD ECHO ORDERABLES Performing Organization Address [facility] Co de Phone Number [facility] [address] [place] [address] * (ABNORMAL) GLUCOSE - POINT OF CARE (03/18/2020 12:59 PM PL[employer]ER OFF BEARER) Only the most recent of2 resultswithin the time period is included. Blood BLOOD SPECIMEN / Unknown 03/18/2020 12:59 PM [employer]ER OFF BEARER 03/18/2020 1:02 PM PL[employer]ER OFF BEARER Shannon Bartes MD LAB - POINT OF CARE ORDERABLES Performing Organization Address [facility] Co de Phone Number [facility] [address] [place] [address] * TSH (03/15/2020 9:15 PM PLANER OFF BEARER) Only the most recent of5 resultswithin the time period is included. TSH 1.03 0.35 - 4.95 uIU/mL 03/15/2020 10:23 PM PL[employer]ER OFF BEARER [facility] Blood BLOOD SPECIMEN / Unknown Venipuncture / Unknown 03/15/2020 9:15 PM [employer]ER OFF BEARER 03/15/2020 9:35 PM PL[employer]ER OFF BEARER Debbie Baltazar MD LAB - CHEMISTRY [place] Performing Organization Address [facility]/ZIP Co de Phone Number [facility] [address] [place] [address] * T4 FREE (03/15/2020 9:15 PM PL[employer]ER OFF BEARER) Only the most recent of5 resultswithin the time period is included. T4 Free 1.13 0.70 - 1.48 ng/dL 03/15/2020 10:23 PM PL[employer]ER OFF BEARER [facility] Blood BLOOD SPECIMEN / Unknown Venipuncture / Unknown 03/15/2020 9:15 PM [employer]ER OFF BEARER 03/15/2020 9:35 PM PL[employer]ER OFF BEARER Debbie Baltazar MD LAB - CHEMISTRY [place] Performing Organization Address [facility] Co de Phone Number [facility] [address] [place] [address] * MRI BRAIN WO CONTRAST (03/11/2020 7:24 PM PLANER OFF BEARER) Anatomical Region Laterality Modality Head Magnetic Resonan ce 03/12/2020 8:02 AM PL[employer]ER OFF BEARER Impressions 03/12/2020 8:15 AM PL[employer]ER OFF BEARER Normal MR appearance of the brain. *Reading Radiologist: Breana Jimenez on 03/12/2020 at 8:15 AM Narrative 03/12/2020 8:15 AM PL[employer]ER OFF BEARER INDICATION: 19-year-old female, evaluation of persistent emesis [...] PLACEMENT/FL ORAL [place] or D TUBE PLACEMENT [[id number]] (03/11/2020 6:51 PM PLANER OFF BEARER) Only the most recent of3 resultswithin the time period is included. Anatomical Region Laterality Modality Abdomen X-Ray Angiograph y 03/11/2020 6:56 PM PL[employer]ER OFF BEARER Impressions 03/11/2020 7:01 PM PL[employer]ER OFF BEARER Successful fluoroscopic placement of Dobbhoff feeding tube in the jejunum. *Reading Radiologist: Mick Gaxiola on 03/11/2020 at 7:01 PM Narrative 03/11/2020 7:01 PM PL[employer]ER OFF BEARER EXAM: Fluoroscopic postpyloric placement of feeding tube. [...] (COVID-19)+INFLU A+B PCR RAPID (03/09/2020 5:24 PM PLANER OFF BEARER) COVID-19 PCR Not detected Not detected 03/09/19 7:30 PM PL[employer]ER OFF BEARER [facility] Influenza A PCR Not detected Not detected 03/09/2020 7:30 PM PL[employer] OFF BEARER [facility] Influenza B PCR Not detected Not detected 03/09/2020 7:30 PM PL[employer]ER OFF BEARER [facility] Microbiology SPECIMEN FROM NASOPHARYNGEAL STRUCTURE / Unknown Collection / Unknown 03/09/2020 5:24 PM [employer]ER OFF BEARER 03/09/2020 6:54 PM PL[employer]ER OFF BEARER Narrative [facility] - 03/09/2020 7:30 PM PL[employer]ER OFF BEARER Influenza assay performed by [employer]. [...] acid amplification assay performance was validated by [facility]. This test has been authorized by the [...] Baltazar MD LAB - MICROBIOLOGY O RDERABLES [facility] [address] [facility] [place] [address] * FL UGI SERIES (03/09/2020 10:13 AM PLANER OFF BEARER) Anatomical Region Laterality Modality Abdomen Radio Fluoroscop y 03/09/2020 10:2 0 AM PL[employer]ER OFF BEARER Impressions 03/09/2020 10:31 AM PL[employer]ER OFF BEARER Evaluation limited by patient vomiting during the exam. The horizontal and descending portions of the duodenum were not imaged. However, there were no findings to suggest high-grade obstruction (no significant dilatation of the proximal duodenum and evidence of contrast progression into the proximal jejunum). 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 Anatomical Region Laterality Modality Abdomen Computed Tomogra phy 02/29/2020 12:0 3 PM [employer]ER OFF BEARER Impressions 02/29/2020 1:29 PM PL[employer]ER OFF BEARER 1. Unchanged decreased aortomesenteric angle and distance. [...] at 1:29 PM Narrative 02/29/2020 1:29 PM PL[employer]ER OFF BEARER EXAMINATION: CT angiogram with 3D reconstructions of [...] * VITAMIN D 25-HYDROXY (02/23/2020 5:28 PM PLANER OFF BEARER) Only the most recent of2 resultswithin the time period is included. Vitamin D, 25 Hydroxy 25.6 20 - 100 ng/mL 02/23/2020 6:24 PM PL[employer]ER OFF BEARER [facility] Blood BLOOD SPECIMEN / Unknown Venipuncture / Unknown 02/23/2020 5:28 PM [employer]ER OFF BEARER 02/23/2020 5:35 PM PL[employer]ER OFF BEARER Narrative [facility] - 02/23/2020 6:24 PM PL[employer]ER OFF BEARER Vitamin D Status: Deficient <10 ng/mL Borderline 10-20 ng/mL Sufficient >20 ng/mL Toxic >100 ng/mL Debbie Baltazar MD LAB - CHEMISTRY [place] [facility] [address] [place] [address] * (ABNORMAL) METANEPHRINES FRACTIONATED URINE TIMED (02/20/2020 6:25 PM PLANER OFF BEARER) Normetanephrine 24 Hour Urine 123 Undefined ug/L 02/26/2020 8:08 PM PLANER OFF BEARER [facility] Normetanephrine Urine 4(L) 90 - 315 ug/24 hr 02/26/2020 8:08 PM PLANER OFF BEARER [facility]) Metanephrine 24 Hour Urine 99 Undefined ug/L 02/26/2020 8:08 PM PLANER OFF BEARER [facility]) Metanephrine Urine 3(L) 44 - 161 ug/24 hr 02/26/2020 8:08 PM PL[employer]ER OFF BEARER [facility]) Urine TIMED URINE SPECIMEN / Unknown Timed Urine Volume Measurement / Unknown 02/20/2020 6:25 PM PL[employer]ER OFF BEARER 02/20/2020 6:33 PM PL[employer]ER OFF BEARER Narrative [facility] ([facility]) - 02/26/2020 8:08 PM PLANER OFF BEARER Test(s) [id number]-Soyfqipbxwvzaqw, Ur; [id number]-Nphcshjwmwuz, Ur was developed and its performance characteristics determined by [facility]. It has not been cleared or approved by the Food and Drug Administration. Performed at: 01 - [address] [id number] Corporate Sales Trainer: Diana Simental MD, Phone: [phone] Rosa Ludwig MD LAB - URINE CHEM ISTRY ORDERABLES [facility] ([facility]) [address] [place] [address] * CATECHOLAMINES URINE FRACTIONATED TIMED (02/20/2020 6:25 PM PLANER OFF BEARER) Epinephrine 24 Hour Urine 4 Undefined ug/L 02/26/2020 7:07 PM PL[employer]ER OFF BEARER [facility] ([facility]) Epinephrine 24 Hour Urine 8 0 - 18 ug/24 hr 02/26/2020 7:07 PM PLANER OFF BEARER [facility] ([facility]) Norepinephrine 24 Hour Urine 12 Undefined ug/L 02/26/2020 7:07 PM PLANER OFF BEARER [facility] ([facility]) Norepinephrine 24 Hour Urine 23 0 - 90 ug/24 hr 02/26/2020 7:07 PM PL[employer]ER OFF BEARER [facility] ([facility]) Dopamine 24 Hour Urine 137 Undefined ug/L 02/26/2020 7:07 PM PLANER OFF BEARER [facility] ([facility]) Dopamine 24 Hour Urine 266 0 - 575 ug/24 hr 02/26/2020 7:07 PM PLANER OFF BEARER [facility] ([facility]) Urine TIMED URINE SPECIMEN / Unknown Timed Urine Volume Measurement / Unknown 02/20/2020 6:25 PM PL[employer]ER OFF BEARER 02/20/2020 6:33 PM PL[employer]ER OFF BEARER Narrative [facility] ([facility]) - 02/26/2020 7:07 PM PLANER OFF BEARER Test(s) [id number], Urine; [id number]-Caxruobiqhfdjk, Ur; 850305- Dopamine, Urine was developed and its performance characteristics determined by [facility]. It has not been cleared or approved by the Food and Drug Administration. Performed at: [address] [place] [id number] Corporate Sales Trainer: Diana Simental MD, Phone: [phone] Rosa Ludiwg MD LAB - URINE CHEM ISTRY ORDERABLES Performing Organization Address [facility] Co de Phone Number [facility]) [address] [place] [address] * THYROID AB PANEL (TPO AB+THYROGLOB AB) (02/17/2020 6:01 PM PLANER OFF BEARER) Only the most recent of2 resultswithin the time period is included. Thyroid Peroxidase TPO Antibody <9 0 - 26 IU/mL 02/22/2020 3:08 PM PLANER OFF BEARER [facility] ([facility]) Thyroglobulin Antibody <1.0 0.0 - 0.9 IU/mL 02/22/2020 3:08 PM [facility] OFF BEARER [facility]) Comment:Thyroglobulin Antibo dy measured by Delf[facility] Har[facility] [employer] Blood BLOOD SPECIMEN / Unknown Venipuncture / Unknown 02/17/2020 6:01 PM PL[employer]ER OFF BEARER 02/17/2020 6:12 PM PL[employer]ER OFF BEARER Narrative [facility] ([facility]) - 02/22/2020 3:08 PM PLANER OFF BEARER Performed at: [address] [place] [id number] Corporate Sales Trainer: Karlos Huffman PhD, Phone: [phone] Rosa Ludwig MD LAB - CHEMISTRY ORDERABLES Performing Organization Address City/[facility] Co de Phone Number [facility]) [address] [place] [address] * THYROID STIMULATING IMMUNOGLOBULIN (TSI) (02/17/2020 6:01 PM PLANER OFF BEARER) Only the most recent of2 resultswithin the time period is included. Thyroid Stimulating Immunoglobulin <0.10 0.00 - 0.55 IU/L 02/20/2020 8:13 AM [facility]ER OFF BEARER [facility] ([facility]) Blood BLOOD SPECIMEN / Unknown Venipuncture / Unknown 02/17/2020 6:01 PM PL[employer]ER OFF BEARER 02/17/2020 6:12 PM PLANER OFF BEARER Narrative [facility] ([facility]) - 02/20/2020 8:13 AM PLANER OFF BEARER Performed at: - [address] [id number] Corporate Sales Trainer: Diana Simental MD, Phone: [phone] Rosa Ludwig MD LAB - CHEMISTRY ORDERABLES Performing Organization Address City/[facility]/ZIP Co de Phone Number [facility] ([facility]) [address] [place] [address] * T3 TOTAL (02/17/2020 6:01 PM PLANER OFF BEARER) Only the most recent of2 resultswithin the time period is included. Pathologist [facility] T3 Total 0.78 0.35 - 1.93 ng/mL 02/18/2020 11:24 AM PLANER OFF BEARER [facility] Blood BLOOD SPECIMEN / Unknown Venipuncture / Unknown 02/17/2020 6:01 PM PLANER OFF BEARER 02/17/2020 6:12 PM PL[employer]ER OFF BEARER Rosa Ludwig MD LAB - CHEMISTRY ORDERABLES Performing Organization Address [facility] Co de Phone Number [facility] [address] [place] [address] * CALPROTECTIN FECAL (02/12/2020 4:13 PM PLANER OFF BEARER) Pathologist [facility] Calprotectin Fecal <16 0 - 120 ug/g 02/17/2020 3:08 PM PLANER OFF BEARER [facility] ([facility]) Comment: Concentration Interpretation Follow-Up <16 - 50 ug/g Normal None >50 -120 ug/g Borderline Re-evaluate in 4-6 weeks >120 ug/g Abnormal Repeat as clinically indicated Stool STOOL SPECIMEN / Unknown Collection / Unknown 02/12/2020 4:13 PM PL[employer]ER OFF BEARER 02/12/2020 4:21 PM PLANER OFF BEARER Narrative [facility] ([facility]) - 02/17/2020 3:08 PM PLANER OFF BEARER Performed at: [address], [place] [id number] Corporate Sales Trainer: Diana Simental MD, Phone: [phone] Rosa Coles MD LAB - BODY FLUID ORDERABLES [facility]) [address] [place] [address] * US KIDNEY W DOPPLER (02/10/2020 2:07 PM PLANER OFF BEARER) Anatomical Region Laterality Modality Abdomen Ultrasound 02/10/2020 2:13 PM PL[employer]ER OFF BEARER Impressions 02/10/2020 2:22 PM PLANER OFF BEARER Normal exam. Left renal vein narrowing as it passes between the aorta and SMA was better evaluated on prior CT angiogram. No findings to suggest venous congestion or chronic kidney damage on this exam. *Reading Radiologist: Breana Jimenez on 02/10/2020 at 2:22 PM Narrative 02/10/2020 2:22 PM PL[employer]ER OFF BEARER INDICATION: 19-year-old female with malignant/restricted food intake [...] CHEST FOR PICC PLMT (02/09/2020 3:44 PM PLANER OFF BEARER) Anatomical Region Laterality Modality Chest Radiographic Sandra ging 02/09/2020 3:55 PM PL[employer]ER OFF BEARER Impressions 02/09/2020 3:56 PM PL[employer]ER OFF BEARER Tubes and lines as above. No evidence of acute cardiopulmonary process. 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 TECHNIQUE: Frontal radiograph of the chest. FINDINGS: Enteric tube is seen coursing into the stomach with tip outside the [id number]. Left upper extremity PICC is seen terminating [...] into the stomach with tip outside the [id number]. Left upper extremity PICC is seen terminating [...] ORDERABLES * ALBUMIN BLOOD (02/09/2020 5:40 AM PLANER OFF BEARER) Albumin 4.1 3.3 - 4.9 gm/dL 02/09/2020 6:55 AM PL[employer]ER OFF BEARER [facility] Blood BLOOD SPECIMEN / Unknown Lab Venipuncture / Unknown 02/09/2020 5:40 AM PL[employer]ER OFF BEARER 02/09/2020 6:07 AM PL[employer]ER OFF BEARER Rosa Coles MD LAB - CHEMISTRY O RDERABLES [facility] [address] [place] [address] * RESPIRATORY PANEL WITH SARS-COV-2 BY PCR (STL) (02/07/2020 1:39 AM PLANER OFF BEARER) Adenovirus PCR Not detected Not detected 02/07/2020 6:15 AM PL[employer]ER OFF BEARER [facility] Coronavirus 229E PCR Not detected Not detected 02/07/2020 6:15 AM PL[employer] OFF BEARER [facility] Coronavirus HKU1 PCR Not detected Not detected 02/07/2020 6:15 AM [employer] OFF BEARER [facility] Coronavirus NL63 PCR Not detected Not detected 02/07/2020 6:15 AM PL[employer] OFF BEARER [facility] Coronavirus OC43 PCR Not detected Not detected 02/07/2020 6:15 AM PL[employer] OFF BEARER [facility] COVID-19 PCR Not detected Not detected 02/07/2020 6:15 AM PL[employer] OFF BEARER [facility] Human Metapneumovirus PCR Not detected Not detected 02/07/2020 6:15 AM PL[employer] OFF BEARER [facility] Human Rhinovirus/Enterov irus PCR Not detected Not detected 02/07/2020 6:15 AM PL[employer] OFF BEARER [facility] Influenza A PCR Not detected Not detected 02/07/2020 6:15 AM PL[employer] OFF BEARER [facility] Influenza B PCR Not detected Not detected 02/07/2020 6:15 AM PL[employer] OFF BEARER [facility] Parainfluenza Virus 1 PCR Not detected Not detected 02/07/2020 6:15 AM PL[employer] OFF BEARER [facility] Parainfluenza Virus 2 PCR Not detected Not detected 02/07/2020 6:15 AM PL[employer] OFF BEARER [facility] Parainfluenza Virus 3 PCR Not detected Not detected 02/07/2020 6:15 AM PL[employer] OFF BEARER [facility] Parainfluenza Virus 4 PCR Not detected Not detected 02/07/2020 6:15 AM PL[employer]ER OFF BEARER [facility] Respiratory Syncytial Virus PCR Not detected Not detected 02/07/2020 6:15 AM PL[employer]ER OFF BEARER [facility] Bordetella parapertussis PCR Not detected Not detected 02/07/2020 6:15 AM PL[employer] OFF BEARER [facility] Bordetella pertussis PCR Not detected Not detected 02/07/2020 6:15 AM PL[employer]ER OFF BEARER [facility] Chlamydia pneumoniae PCR Not detected Not detected 02/07/2020 6:15 AM PL[employer] OFF BEARER [facility] Mycoplasma pneumoniae PCR Not detected Not detected 02/07/2020 6:15 AM PL[employer] OFF BEARER [facility] Microbiology SPECIMEN FROM NASOPHARYNGEAL STRUCTURE / Unknown Collection / Unknown 02/07/2020 1:39 AM PLANER OFF BEARER 02/07/2020 1:45 AM PLANER OFF BEARER Narrative [facility] - 02/07/2020 6:15 AM PLANER OFF BEARER This nucleic acid amplification assay performance was validated by [facility]. This test has been [...] Ludwig MD LAB - MICROBIOLO GY ORDERABLES [facility] [address] [place] [address], [facility] [place] [phone] * ESTRADIOL (01/14/2020 11:16 AM PLANER OFF BEARER) [facility] Signature Estradiol 24 pg/mL 01/14/2020 5:30 PM PLANER OFF BEARER [facility] Blood BLOOD SPECIMEN / Unknown Venipuncture / Unknown 01/14/2020 11:16 AM PLANER OFF BEARER 01/14/2020 11:21 AM PLANER OFF BEARER Narrative [facility] - 01/14/2020 5:30 PM PLANER OFF BEARER Normal Menstruating Females Follicular Phase 21 - 251 pg/mL Midcycle 38 - 649 pg/mL Luteal Phase 21 - 312 pg/mL Postmenopausal Females NOT on HRT <10 - 28 pg/mL Postmenopausal Females on HRT <10 - 144 pg/mL Males 11 - 44 pg/mL Roe Crocker DO LAB - CHEMISTRY ORDERABLES [facility] [address] [place] [address] * VITAMIN D 1,25 DIHYDROXY (01/06/2020 10:36 AM PLANER OFF BEARER) Calcitriol (1,25 di-OH Vit D) 61.8 19.9 - 79.3 pg/mL 01/08/2020 5:07 PM PLANER OFF BEARER [facility] ([facility]) Blood BLOOD SPECIMEN / Unknown Lab Venipuncture / Unknown 01/06/2020 10:36 AM PLANER OFF BEARER 01/06/2020 10:40 AM PLANER OFF BEARER Narrative [facility] ([facility]) - 01/08/2020 5:07 PM PLANER OFF BEARER Performed at: [address] [id number] Corporate Sales Trainer: Diana Simental MD, Phone: [phone] Josafat Betancur DO LAB - CHEMISTRY ORDE CHAMP [facility] ([facility]) [address] [place] [address] * (ABNORMAL) IRON + TIBC PANEL (01/06/2020 10:36 AM PLANER OFF BEARER) Pathologist [facility] TIBC 390 250 - 450 ug/dL 01/07/2020 4:07 AM PLANER OFF BEARER [facility] ([facility]) UIBC 375 131 - 425 ug/dL 01/07/2020 4:07 AM PLANER OFF BEARER [facility] ([facility]) Iron 15(L) 26 - 169 ug/dL 01/07/2020 4:07 AM PLANER OFF BEARER [facility] ([facility]) Iron Saturation 4(LL) 15 - 55 % 0 4:07 AM PLANER OFF BEARER [facility] ([facility]) Blood BLOOD SPECIMEN / Unknown Lab Venipuncture / Unknown 01/06/2020 10:36 AM PLANER OFF BEARER 01/06/2020 10:40 AM PLANER OFF BEARER Narrative [facility] ([facility]) - 01/07/2020 4:07 AM PLANER OFF BEARER Performed at: [facility] [address] [place], [place] [id number] Corporate Sales Trainer: Karlos Huffman PhD, Phone: [phone] Josafat G Betancur DO LAB - CHEMISTRY ORDE RABLES [facility] [address] [place] [address] * EGD (01/05/2020 5:57 AM PLANER OFF BEARER) Report Endoscopy POC _ Patient Name: Kenyatta Chavez Procedure Date: 01/05/2020 5:57 AM Date of : 2000 Admit Type: Inpatient Age: 19 Gender: Female Race: White Attending MD: Getachew Briones , Order #: [id number] _ Procedure: Upper GI endoscopy Indications: Epigastric [...] pathology results. Procedure Code(s): --- Professional --- 97055, Esophagogastrodu odenoscopy, flexible, transoral; with biopsy, single or multiple --- Technical --- 20243, Esophagogastrodu odenoscopy, flexible, transoral; with biopsy, single or multiple Diagnosis Code(s): --- Professional --- K20.9, Esophagitis, unspecified K31.89, Other diseases of stomach and duodenum R10.13, Epigastric pain --- Technical --- K20.9, Esophagitis, unspecified K31.89, Other diseases of stomach and duodenum R10.13, Epigastric pain CPT copyright 2017 [employer]. All rights reserved. The codes documented in this report are preliminary and upon vice president for philanthropy review may be revised to meet current compliance requirements. Getachew Briones MD Getachew Briones, 01/06/2020 3:56:06 PM This report has been signed electronically. Number of Addenda: 0 Note Initiated On: 01/05/2020 5:57 AM Procedure Date: 01/05/2020 5:57:32 AM This report has been signed electronically. [facility] 01/05/2020 5:57 AM PLANER OFF BEARER Getachew Briones MD GI PROCEDURE ORDERAB LES [facility] [address] [place] [address] * ENDOSCOPY, COLON, DIAGNOSTIC (01/05/2020 5:57 AM PLANER OFF BEARER) Report Endoscopy POC _ Patient Name: Kenyatta Chavez Procedure Date: 01/05/2020 5:57 AM Date of : 2000 Admit Type: Inpatient Age: 19 Gender: Female Race: White Attending MD: Getachew Briones , Order #: [id number] _ Procedure: Colonoscopy Indications: Epigastric abdominal pain, [...] pathology results. Procedure Code(s): --- Professional --- 69334, Colonoscopy, flexible; with biopsy, single or multiple --- Technical --- 85630, Colonoscopy, flexible; with biopsy, single or multiple Diagnosis Code(s): --- Professional --- R10.13, Epigastric pain R10.33, Periumbilical pain R10.31, Right lower quadrant pain R63.4, Abnormal weight loss --- Technical --- R10.13, Epigastric pain R10.33, Periumbilical pain R10.31, Right lower quadrant pain R63.4, Abnormal weight loss CPT copyright 2017 [employer]. All rights reserved. The codes documented in this report are preliminary and upon vice president for philanthropy review may be revised to meet current compliance requirements. Getachew Briones MD Getachew Briones, 01/18/2020 1:35:26 PM This report has been signed electronically. Number of Addenda: 0 Note Initiated On: 01/05/2020 5:57 AM Procedure Date: 01/05/2020 5:57:00 AM This report has been signed electronically. [facility] 01/05/2020 5:57 AM PLANER OFF BEARER Getachew Briones MD GI PROCEDURE ORDERAB LES [facility] [address] [facility] [place] [address] * CULTURE STOOL+ E COLI SHIGA-LIKE TOXIN (01/03/2020 5:10 PM PLANER OFF BEARER) Culture No growth Salmonella, Shigella, Campylobacter, Escherichia coli O157:h7 or Yersinia JACQUELINE 01/06/2020 12:57 PM PLANER OFF BEARER [facility] Culture Negative Escherichia coli Shiga-like toxin (NM) JACQUELINE 01/06/2020 12:57 PM PLANER OFF BEARER [facility] Stool STOOL SPECIMEN / Unknown Collection / Unknown 01/03/2020 5:10 PM PLANER OFF BEARER 01/03/2020 6:13 PM PLANER OFF BEARER Louise Mason MD LAB - MICROBIOLOGY O RDERABLES Performing Organization Address City/[facility]/ZIP Co de Phone Number [facility] [address] [place], [place] [address] [phone] * OCCULT BLOOD FECES (01/03/2020 5:10 PM PLANER OFF BEARER) Occult Blood Negative Negative 01/03/2020 6:09 PM PLANER OFF BEARER [facility] Stool STOOL SPECIMEN / Unknown Collection / Unknown 01/03/2020 5:10 PM PLANER OFF BEARER 01/03/2020 5:47 PM PLANER OFF BEARER Roe Crocker DO LAB - BODY FLUI D ORDERABLES Performing Organization Address City/[facility] Co de Phone Number [facility] [address] [place] [address] * US ABD FOR APPENDICITIS (01/02/2020 6:06 PM PLANER OFF BEARER) Anatomical Region Laterality Modality Abdomen Ultrasound 01/03/2020 7:52 AM PLANER OFF BEARER Impressions 01/03/2020 8:09 AM PLANER OFF BEARER Findings consistent with a Category 1 study. Normal appendix. Category 1: Normal appendix Category 2: Appendix not fully visualized without secondary signs Category 3: Appendix not fully visualized with secondary signs Category 4: Appendicitis *Reading Radiologist: Breana Jimenez on 01/03/2020 at 8:09 AM Narrative 01/03/2020 8:09 AM PLANER OFF BEARER INDICATION: 19-year-old female with lower abdominal pain [...] TISSUE TRANSGLUTAMINASE AB IGA (01/02/2020 1:54 PM PLANER OFF BEARER) Only the most recent of2 resultswithin the time period is included. TTG Antibody IgA <2 0 - 3 U/mL 01/05/2020 2:09 PM PLANER OFF BEARER [facility] ([facility]) Comment: Negative 0 - 3 Weak Positive 4 - 10 Positive >10 Tissue Transglutaminase (tTG) has been identified as the endomysial antigen. Studies have demonstr- ated that endomysial IgA antibodies have over 99% specificity for gluten sensitive enteropathy. Blood BLOOD SPECIMEN / Unknown Venipuncture / Unknown 01/02/2020 1:54 PM PLANER OFF BEARER 01/02/2020 1:59 PM PLANER OFF BEARER Narrative [facility] ([facility]) - 01/05/2020 2:09 PM PLANER OFF BEARER Performed at: - [facility] [id number] [place], [place] [id number] Corporate Sales Trainer: Karlos Huffman PhD, Phone: [phone] Danielle Ramirez MD LAB - SEROLO GY ORDERABLES [facility] ([facility]) [address] [place] [address] * IGA BLOOD (01/02/2020 1:54 PM PLANER OFF BEARER) Only the most recent of2 resultswithin the time period is included. IgA 304 65 - 421 mg/dL 01/02/2020 2:31 PM PLANER OFF BEARER [facility] Blood BLOOD SPECIMEN / Unknown Venipuncture / Unknown 01/02/2020 1:54 PM PLANER OFF BEARER 01/02/2020 2:00 PM PLANER OFF BEARER Danielle Ramirez MD LAB - CHEMIS TRY ORDERABLES Performing Organization Address City/[facility]/ZIP Co de Phone Number [facility] [address] [place] [address] * (ABNORMAL) T3 FREE (03/23/2017 6:57 AM PLANER OFF BEARER) Pathologist [facility] T3 Free 4.03(H) 2.18 - 3.98 pg/mL 03/23/2017 12:02 PM PLANER OFF BEARER [facility] Blood BLOOD SPECIMEN / Unknown Lab Venipuncture / Unknown 03/23/2017 6:57 AM PLANER OFF BEARER 03/23/2017 7:49 AM PLANER OFF BEARER Aurelia Madison MD LAB - CHEMISTRY JASS AOKES Performing Organization Address [facility] Co de Phone Number [facility] [address] [place] [address] * HCG URINE QUALITATIVE - POCT (IP) BEAKER (03/21/2017 12:31 AM PLANER OFF BEARER) Pathologist [facility] HCG Qual Urine Negative Negative [facility] QC Verified Yes Yes [facility] PO CT TESTING Urine URINE / Unknown 03/21/2017 1 2:31 AM PLANER OFF BEARER Rosa Moise DO LAB - POINT OF CARE ORDERABLES Performing Organization Address [facility] Co de Phone Number [facility] [address] [place], [place] [id number] [place] [address] Care Teams Interior Decorator Relationship Specialty Start Date End Date Ronel Thornton DO [address] [place] [id number] PCP - General Family Medicine 03/18/23 Ronel Thornton DO [address] [place] [address] PCP - Attributed-[facility] 04/12/23
--- OUTSIDE RECORDS SUMMARY | 2024-03-28 03:37 | XMS_ITS | Referral Summary ---
Author Organization [facility] Address [address] [place] [place] [address] Care Team Providers Care Poker Manager Name Role Phone Ronel Thornton DO Primary Care Provider [phone] Ronel Thornton DO Unavailable [phone] Source Comments [facility],non[facility] Affiliates and Associated Physician Practices is amultiple site organization consisting of ambulatory clinics and hospital sitesin [place], [place], [place] and [place]. This disclosure is being madepursuant to the Care Everywhere program and may not contain all information available regarding this patient. Last updated 17.[facility] Encounters Date Type Department Care Team Description 03/05/2024 Orders Only [facility] [address] [place] [id number] Ronel Thornton DO Familial hypercholesterolemia 03/05/2024 Travel 03/05/2024 Telephone [facility] - Family Medicine [address] [place] [id number] Ronel Thornton DO New Med Request 01/15/2024 3:00 PM SALMON TROLL FISHER Procedure visit [facility] [address] [place] [id number] Nai Jurado MD Encounter for insertion [...] 01/18/2020 Assessment & Plan (01/08/2021 3:06 PM SALMON TROLL FISHER): Assessment: Major depressive disorder, generalized anxiety disorder and substance abuse disorder. Plan: - klonopin and neurontin are all habit forming, concerns they are addictive, plan to discuss long term care administrator goal of weaning as outpatient - must stop all alcohol and MJ - Increased Prozac to 40 - Increased zyprexa to 15 - Melatonin 6mg QHS for sleep - avoid narcotics - taper off zyprexa as outpatient per psychiatry recs Assessment & Plan (01/07/2021 4:50 PM SALMON TROLL FISHER): Assessment: Major depressive disorder, generalized anxiety disorder and substance abuse disorder. Plan: - klonopin and neurontin are all habit forming, concerns they are addictive, plan to discuss long term care administrator goal of weaning as outpatient - must stop all alcohol and MJ - Increased Prozac to 40 - Increased zyprexa to 15 - Melatonin 6mg QHS for sleep - avoid narcotics - taper off zyprexa as outpatient per psychiatry recs Assessment & Plan (01/06/2021 5:55 PM SALMON TROLL FISHER): Assessment: Major depressive disorder, generalized anxiety disorder and substance abuse disorder. Plan: - klonopin and neurontin are all habit forming, concerns they are addictive, plan to discuss long term care administrator goal of weaning as outpatient - must [...] slowly. Assessment & Plan (04/07/2020 6:45 PM SALMON TROLL FISHER): Assessment: Hx of major depressive disorder and generalized anxiety disorder. Pt has been seen by psychiatry and psychology, now improved since starting/optimizing zyprexa QHS, clonazepam TID, and prozac QD. Plan: - Prozac 30 mg QD (dose of 30 mg started on 03/09/20, Prozac initially began 02/07) - Zyprexa 5 mg QHS - Klonopin 0.5mg TID Assessment & Plan (04/06/2020 3:54 PM SALMON TROLL FISHER): Assessment: Hx of major depressive disorder and [...] TID Assessment & Plan (04/05/2020 10:49 AM SALMON TROLL FISHER): Assessment: Hx of major depressive disorder and [...] TID Assessment & Plan (04/04/2020 10:23 AM SALMON TROLL FISHER): Assessment: Hx of major depressive disorder and [...] TID Assessment & Plan (04/03/2020 6:30 PM SALMON TROLL FISHER): Assessment: Hx of major depressive disorder and [...] TID Assessment & Plan (04/01/2020 11:15 AM SALMON TROLL FISHER): Assessment: Hx of major depressive disorder and [...] dose) Assessment & Plan (03/31/2020 10:07 AM SALMON TROLL FISHER): Assessment: Hx of major depressive disorder and [...] dose) Assessment & Plan (03/30/2020 2:24 PM SALMON TROLL FISHER): Assessment: Hx of major depressive disorder and generalized anxiety disorder. Pt seen by psychiatry on admission and was started elavil, but continued to have anxiety. Elavil was discontinued due to persistent tachycardia and hypotension. [facility] she was started on [...] dose) Assessment & Plan (03/29/2020 6:50 AM SALMON TROLL FISHER): Assessment: Hx of major depressive disorder and [...] dose) Assessment & Plan (03/27/2020 10:30 AM SALMON TROLL FISHER): Assessment: Hx of major depressive disorder and [...] dose) Assessment & Plan (03/26/2020 11:15 AM SALMON TROLL FISHER): Assessment: Hx of major depressive disorder and [...] dose) Assessment & Plan (03/25/2020 8:58 AM SALMON TROLL FISHER): Assessment: Hx of major depressive disorder and [...] dose) Assessment & Plan (03/24/2020 6:44 AM SALMON TROLL FISHER): Assessment: Hx of major depressive disorder and [...] dose) Assessment & Plan (03/23/2020 12:19 PM SALMON TROLL FISHER): Assessment: Hx of major depressive disorder and [...] dose) Assessment & Plan (03/22/2020 10:47 AM SALMON TROLL FISHER): Assessment: Hx of major depressive disorder and generalized anxiety disorder. Pt seen by psychiatry on admission and was started elavil, but continued to have anxiety. Elavil was discontinued due to persistent tachycardia and hypotension. [facility], she was started on zyprexa QHS, [...] recommendations) Assessment & Plan (03/21/2020 3:11 PM SALMON TROLL FISHER): Assessment: Hx of major depressive disorder and [...] mg. Assessment & Plan (03/20/2020 10:31 AM SALMON TROLL FISHER): Assessment: Hx of major depressive disorder and [...] 03/21. Assessment & Plan (03/19/2020 10:38 AM SALMON TROLL FISHER): Assessment: Hx of major depressive disorder and [...] withdrawal Assessment & Plan (03/18/2020 12:58 PM SALMON TROLL FISHER): Assessment: Hx of major depressive disorder and [...] anxiety Assessment & Plan (03/17/2020 10:33 AM SALMON TROLL FISHER): Assessment: Hx of major depressive disorder and [...] appreciated Assessment & Plan (03/16/2020 2:24 PM SALMON TROLL FISHER): Assessment: Hx of major depressive disorder and [...] recommendations Assessment & Plan (03/15/2020 11:11 AM SALMON TROLL FISHER): Assessment: Hx of major depressive disorder and [...] anxiety Assessment & Plan (03/14/2020 6:28 AM SALMON TROLL FISHER): Assessment: Hx of major depressive disorder and [...] anxiety Assessment & Plan (03/13/2020 6:28 AM SALMON TROLL FISHER): Assessment: Hx of major depressive disorder and [...] anxiety Assessment & Plan (03/12/2020 11:35 AM SALMON TROLL FISHER): Assessment: Hx of major depressive disorder and [...] anxiety Assessment & Plan (03/11/2020 12:43 PM SALMON TROLL FISHER): Assessment: Hx of major depressive disorder and [...] anxiety Assessment & Plan (03/10/2020 6:11 AM SALMON TROLL FISHER): Assessment: Hx of major depressive disorder and [...] anxiety Assessment & Plan (03/09/2020 6:24 AM SALMON TROLL FISHER): Assessment: Hx of major depressive disorder and [...] anxiety Assessment & Plan (03/08/2020 10:51 AM SALMON TROLL FISHER): Assessment: Hx of major depressive disorder and [...] anxiety Assessment & Plan (03/07/2020 9:15 AM SALMON TROLL FISHER): Assessment: Hx of major depressive disorder and [...] -Develop daily schedule with assistance of child adolescent care-Alma Assessment & Plan (03/06/2020 10:09 AM SALMON TROLL FISHER): Assessment: Hx of major depressive disorder and [...] anxiety Assessment & Plan (03/05/2020 9:56 AM SALMON TROLL FISHER): Assessment: Hx of major depressive disorder and [...] anxiety Assessment & Plan (03/04/2020 12:58 PM SALMON TROLL FISHER): Assessment: Hx of major depressive disorder and [...] anxiety Assessment & Plan (03/03/2020 3:16 PM SALMON TROLL FISHER): Assessment: Hx of major depressive disorder and [...] anxiety Assessment & Plan (03/01/2020 12:04 PM SALMON TROLL FISHER): Assessment: Hx of major depressive disorder and [...] anxiety Assessment & Plan (02/29/2020 12:53 PM SALMON TROLL FISHER): Assessment: Hx of major depressive disorder and [...] anxiety Assessment & Plan (02/28/2020 9:22 AM SALMON TROLL FISHER): Assessment: Hx of major depressive disorder and [...] anxiety Assessment & Plan (02/27/2020 10:27 AM SALMON TROLL FISHER): Assessment: Hx of major depressive disorder and [...] negative Assessment & Plan (02/26/2020 11:12 AM SALMON TROLL FISHER): Assessment: Hx of major depressive disorder and [...] pending Assessment & Plan (02/25/2020 9:33 AM SALMON TROLL FISHER): Assessment: Hx of major depressive disorder and [...] pending Assessment & Plan (02/24/2020 6:51 AM SALMON TROLL FISHER): Assessment: Hx of major depressive disorder and [...] pending Assessment & Plan (02/23/2020 10:19 AM SALMON TROLL FISHER): Assessment: Hx of major depressive disorder and [...] pending Assessment & Plan (02/22/2020 11:07 AM SALMON TROLL FISHER): Assessment: Hx of major depressive disorder and [...] QHS Assessment & Plan (02/21/2020 10:54 AM SALMON TROLL FISHER): Assessment: History of major depressive disorder and [...] tablet Assessment & Plan (02/20/2020 11:33 AM SALMON TROLL FISHER): Assessment: History of major depressive disorder and [...] tablet Assessment & Plan (02/19/2020 3:05 PM SALMON TROLL FISHER): Assessment: History of major depressive disorder and [...] Based on recommendations from psychiatry and [facility], aMrlee was started on zyprexa QHS, clonazepam TID, [...] tablet Assessment & Plan (02/18/2020 10:13 AM SALMON TROLL FISHER): Assessment: History of major depressive disorder and [...] tablet Assessment & Plan (02/17/2020 12:26 PM SALMON TROLL FISHER): Assessment: History of major depressive disorder and [...] tablet Assessment & Plan (02/16/2020 1:14 PM SALMON TROLL FISHER): Assessment: History of major depressive disorder and [...] tablet Assessment & Plan (02/15/2020 12:31 PM SALMON TROLL FISHER): Assessment: History of major depressive disorder and [...] tablet Assessment & Plan (02/14/2020 2:24 PM SALMON TROLL FISHER): Assessment: History of major depressive disorder and [...] tablet Assessment & Plan (02/13/2020 12:00 PM SALMON TROLL FISHER): Assessment: History of major depressive disorder and [...] tablet Assessment & Plan (02/12/2020 11:20 AM SALMON TROLL FISHER): Assessment: History of major depressive disorder and [...] tablet Assessment & Plan (02/11/2020 11:54 AM SALMON TROLL FISHER): Assessment: History of major depressive disorder and [...] tablet Assessment & Plan (02/10/2020 12:09 PM SALMON TROLL FISHER): Assessment: History of major depressive disorder and [...] tablet Assessment & Plan (02/09/2020 11:50 AM SALMON TROLL FISHER): Assessment: History of major depressive disorder and [...] atarax Assessment & Plan (02/08/2020 12:54 PM SALMON TROLL FISHER): Assessment: History of major depressive disorder and [...] atarax Assessment & Plan (02/07/2020 11:47 AM SALMON TROLL FISHER): Assessment: History of major depressive disorder and [...] atarax Assessment & Plan (02/06/2020 8:12 AM SALMON TROLL FISHER): Assessment: History of major depressive disorder and [...] atarax Assessment & Plan (02/05/2020 9:12 AM SALMON TROLL FISHER): Assessment: History of major depressive disorder and [...] atarax Assessment & Plan (02/04/2020 12:43 PM SALMON TROLL FISHER): Assessment: History of major depressive disorder and [...] atarax Assessment & Plan (02/03/2020 2:28 PM SALMON TROLL FISHER): Assessment: History of major depressive disorder and [...] atarax Assessment & Plan (02/02/2020 4:02 PM SALMON TROLL FISHER): Assessment: History of major depressive disorder and [...] atarax Assessment & Plan (02/01/2020 12:12 PM SALMON TROLL FISHER): Assessment: History of major depressive disorder and [...] atarax Assessment & Plan (01/31/2020 1:04 PM SALMON TROLL FISHER): Assessment: History of major depressive disorder and [...] hypotension. Psych said to re-consulted and saw Mralee again today (01/28). Plan: - Monitor tachycardia and hypotension - Periactin adjusted to 4 mg w/ breakfast and lunch, 8 mg w/ dinner - Stopped atarax due to possible tachycardia 2/2 atarax Assessment & Plan (01/30/2020 10:30 AM SALMON TROLL FISHER): Assessment: History of major depressive disorder and [...] atarax Assessment & Plan (01/29/2020 9:40 PM SALMON TROLL FISHER): Assessment: History of major depressive disorder and [...] atarax Assessment & Plan (01/28/2020 11:59 AM SALMON TROLL FISHER): Assessment: History of major depressive disorder and [...] lunch Assessment & Plan (01/27/2020 3:57 PM SALMON TROLL FISHER): Assessment: History of major depressive disorder and [...] lunch Assessment & Plan (01/26/2020 6:01 PM SALMON TROLL FISHER): Assessment: History of major depressive disorder and [...] atarax Assessment & Plan (01/25/2020 2:56 PM SALMON TROLL FISHER): Assessment: History of major depressive disorder and [...] PO. Assessment & Plan (01/24/2020 8:11 AM SALMON TROLL FISHER): Assessment: History of major depressive disorder and [...] (02/22/20) Assessment & Plan (01/23/2020 7:09 AM SALMON TROLL FISHER): Assessment: History of major depressive disorder and [...] (02/22/20) Assessment & Plan (01/22/2020 7:52 AM SALMON TROLL FISHER): Assessment: History of major depressive disorder and [...] (02/22/20) Assessment & Plan (01/21/2020 7:40 AM SALMON TROLL FISHER): Assessment: History of major depressive disorder and [...] (02/22/20) Assessment & Plan (01/20/2020 7:36 AM SALMON TROLL FISHER): Assessment: History of major depressive disorder and [...] (02/22/20) Assessment & Plan (01/19/2020 7:22 AM SALMON TROLL FISHER): Assessment: History of major depressive disorder and [...] (02/22/20) Assessment & Plan (01/18/2020 4:35 PM SALMON TROLL FISHER): Assessment: History of major depressive disorder and [...] range. Assessment & Plan (04/08/2020 1:31 PM SALMON TROLL FISHER): Assessment: 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, SMA [...] PT Assessment & Plan (04/07/2020 2:52 PM SALMON TROLL FISHER): Assessment: 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, SMA [...] PT Assessment & Plan (04/07/2020 6:44 PM SALMON TROLL FISHER): Assessment: Marlee is a 19 year old [...] follow up with adolescent medicine on 04/18, [facility] on 05/02, and and scheduling Psych intake visit SOCIAL: - General medicine team spoke with and updated mother on 04/06 LABS: daily urine spec gravity, BMP/Mg/Phos Q / Assessment & Plan (04/06/2020 6:45 PM SALMON TROLL FISHER): Assessment: Marlee is a 19 year old [...] / Assessment & Plan (04/05/2020 3:22 PM SALMON TROLL FISHER): Assessment: 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, SMA [...] PT Assessment & Plan (04/05/2020 10:49 AM SALMON TROLL FISHER): Assessment: Marlee is a 19 year old [...] T/Th Assessment & Plan (04/04/2020 3:59 PM SALMON TROLL FISHER): Assessment: 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, SMA [...] daily Assessment & Plan (04/04/2020 10:21 AM SALMON TROLL FISHER): Assessment: Marlee is a 19 year old [...] / Assessment & Plan (04/03/2020 12:59 PM SALMON TROLL FISHER): Assessment: Marlee is a 19 year old [...] daily Assessment & Plan (04/02/2020 4:19 PM SALMON TROLL FISHER): Assessment: Marlee is a 19 year old [...] daily Assessment & Plan (04/01/2020 11:55 AM SALMON TROLL FISHER): Assessment: 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 and [...] daily Assessment & Plan (04/01/2020 11:15 AM SALMON TROLL FISHER): Assessment: Marlee is a 19 year old [...] daily Assessment & Plan (03/31/2020 12:05 PM SALMON TROLL FISHER): Assessment: 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 and [...] daily Assessment & Plan (03/31/2020 10:06 AM SALMON TROLL FISHER): Assessment: Marlee is a 19 year old [...] daily Assessment & Plan (03/30/2020 2:24 PM SALMON TROLL FISHER): Assessment: Marlee is a 19 year old [...] daily Assessment & Plan (03/29/2020 10:40 AM SALMON TROLL FISHER): Assessment: Marlee is a 19 year old [...] allowed in room. May have water from [employer] cup. Oral fluids limited to 250 mL [...] daily Assessment & Plan (03/28/2020 12:29 PM SALMON TROLL FISHER): Assessment: Marlee is a 19 year old [...] allowed in room. May have water from [employer] cup. Oral fluids limited to 250 mL [...] daily Assessment & Plan (03/27/2020 10:34 AM SALMON TROLL FISHER): Assessment: Marlee is a 19 year old [...] night 03/27: Increase to 50 mL/hr tonight. [facility] is aware of increase but did [...] daily Assessment & Plan (03/26/2020 11:20 AM SALMON TROLL FISHER): Assessment: Marlee is a 19 year old [...] daily Assessment & Plan (03/25/2020 12:30 PM SALMON TROLL FISHER): Assessment: Marlee is a 19 year old [...] daily Assessment & Plan (03/24/2020 5:02 PM SALMON TROLL FISHER): Assessment: 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 and [...] anxiety Assessment & Plan (03/24/2020 11:19 AM SALMON TROLL FISHER): Assessment: Marlee is a 19 year old [...] daily Assessment & Plan (03/23/2020 12:20 PM SALMON TROLL FISHER): Assessment: Marlee is a 19 year old [...] daily Assessment & Plan (03/22/2020 12:20 PM SALMON TROLL FISHER): Assessment: Marlee is a 19 year old [...] daily Assessment & Plan (03/21/2020 3:10 PM SALMON TROLL FISHER): Assessment: Marlee is a 19 year old [...] 03/15/2020. Assessment & Plan (03/20/2020 10:32 AM SALMON TROLL FISHER): Assessment: Marlee is a 19 year old [...] 03/15/2020. Assessment & Plan (03/19/2020 10:37 AM SALMON TROLL FISHER): Assessment: Marlee is a 19 year old [...] 03/15/2020. Assessment & Plan (03/18/2020 1:00 PM SALMON TROLL FISHER): Assessment: Marlee is a 19 year old [...] 03/15/2020. Assessment & Plan (03/17/2020 10:36 AM SALMON TROLL FISHER): Assessment: Marlee is a 19 year old [...] 03/15/2020. Assessment & Plan (03/16/2020 2:10 PM SALMON TROLL FISHER): Assessment: Marlee is a 19 year old [...] 03/15/2020. Assessment & Plan (03/15/2020 11:10 AM SALMON TROLL FISHER): Assessment: Marlee is a 19 year old [...] 03/15/2020 Assessment & Plan (03/14/2020 9:53 AM SALMON TROLL FISHER): Assessment: Marlee is a 19 year old [...] 03/15/2020 Assessment & Plan (03/13/2020 9:39 AM SALMON TROLL FISHER): Assessment: Marlee is a 19 year old [...] week Assessment & Plan (03/12/2020 11:35 AM SALMON TROLL FISHER): Assessment: Marlee is a 19 year old [...] week Assessment & Plan (03/11/2020 12:43 PM SALMON TROLL FISHER): Assessment: Marlee is a 19 year old [...] week Assessment & Plan (03/10/2020 9:12 AM SALMON TROLL FISHER): Assessment: Marlee is a 19 year old [...] in Assessment & Plan (03/09/2020 10:22 AM SALMON TROLL FISHER): Assessment: Marlee is a 19 year old [...] in Assessment & Plan (03/08/2020 10:52 AM SALMON TROLL FISHER): Assessment: Marlee is a 19 year old [...] in Assessment & Plan (03/07/2020 9:18 AM SALMON TROLL FISHER): Assessment: Marlee is a 19 year old [...] in Assessment & Plan (03/06/2020 10:09 AM SALMON TROLL FISHER): Assessment: Marlee is a 19 year old [...] in Assessment & Plan (03/05/2020 9:56 AM SALMON TROLL FISHER): Assessment: Marlee is a 19 year old [...] in Assessment & Plan (03/04/2020 12:58 PM SALMON TROLL FISHER): Assessment: Marlee is a 19 year old [...] A/P Assessment & Plan (03/03/2020 3:15 PM SALMON TROLL FISHER): Assessment: Marlee is a 19 year old [...] A/P Assessment & Plan (03/02/2020 12:06 PM SALMON TROLL FISHER): Assessment: Marlee is a 19 year old [...] A/P Assessment & Plan (03/01/2020 12:05 PM SALMON TROLL FISHER): Assessment: Marlee is a 19 year old [...] A/P Assessment & Plan (02/29/2020 12:52 PM SALMON TROLL FISHER): Assessment: Marlee is a 19 year old [...] A/P Assessment & Plan (02/28/2020 9:12 AM SALMON TROLL FISHER): Assessment: Marlee is a 19 year old [...] A/P Assessment & Plan (02/27/2020 10:03 AM SALMON TROLL FISHER): Assessment: Marlee is a 19 year old [...] A/P Assessment & Plan (02/26/2020 11:12 AM SALMON TROLL FISHER): Assessment: Marlee is a 19 year old [...] A/P Assessment & Plan (02/25/2020 9:32 AM SALMON TROLL FISHER): Assessment: Marlee is a 19 year old [...] A/P Assessment & Plan (02/24/2020 10:42 AM SALMON TROLL FISHER): Assessment: Marlee is a 19 year old [...] A/P Assessment & Plan (02/23/2020 10:22 AM SALMON TROLL FISHER): Assessment: Marlee is a 19 year old [...] A/P Assessment & Plan (02/22/2020 11:25 AM SALMON TROLL FISHER): Assessment: Marlee is a 19 year old [...] A/P Assessment & Plan (02/21/2020 10:54 AM SALMON TROLL FISHER): Assessment: Marlee is a 19 year old [...] A/P Assessment & Plan (02/20/2020 11:31 AM SALMON TROLL FISHER): Assessment: Marlee is a 19 year old [...] A/P Assessment & Plan (02/19/2020 3:04 PM SALMON TROLL FISHER): Assessment: Marlee is a 19 year old [...] TPN. Assessment & Plan (02/18/2020 10:14 AM SALMON TROLL FISHER): Assessment: Marlee is a 19 year old [...] Sat) Assessment & Plan (02/17/2020 12:30 PM SALMON TROLL FISHER): Assessment: Marlee is a 19 year old [...] pending Assessment & Plan (02/16/2020 2:29 PM SALMON TROLL FISHER): Assessment: Marlee is a 19 year old [...] pending Assessment & Plan (02/15/2020 12:33 PM SALMON TROLL FISHER): Assessment: Marlee is a 19 year old [...] pending Assessment & Plan (02/14/2020 2:23 PM SALMON TROLL FISHER): Assessment: Marlee is a 19 year old [...] pending Assessment & Plan (02/13/2020 11:59 AM SALMON TROLL FISHER): Assessment: Marlee is a 19 year old [...] pending Assessment & Plan (02/12/2020 11:49 AM SALMON TROLL FISHER): Assessment: Marlee is a 19 year old [...] recs Assessment & Plan (02/11/2020 11:56 AM SALMON TROLL FISHER): Assessment: Marlee is a 19 year old [...] recs Assessment & Plan (02/10/2020 12:11 PM SALMON TROLL FISHER): Assessment: Marlee is a 19 year old [...] SG) Assessment & Plan (02/09/2020 11:49 AM SALMON TROLL FISHER): Assessment: Marlee is a 19 year old [...] SG) Assessment & Plan (02/08/2020 12:54 PM SALMON TROLL FISHER): Assessment: Marlee is a 19 year old [...] recs. Assessment & Plan (02/07/2020 12:06 PM SALMON TROLL FISHER): Assessment: Marlee is a 19 year old [...] SG) Assessment & Plan (02/06/2020 8:12 AM SALMON TROLL FISHER): Assessment: Marlee is a 19 year old [...] SG) Assessment & Plan (02/05/2020 9:12 AM SALMON TROLL FISHER): Assessment: Marlee is a 19 year old [...] TG) Assessment & Plan (02/04/2020 12:52 PM SALMON TROLL FISHER): Assessment: Marlee is a 19 year old [...] TG) Assessment & Plan (02/03/2020 2:38 PM SALMON TROLL FISHER): Assessment: Marlee is a 19 year old [...] TG) Assessment & Plan (02/02/2020 4:02 PM SALMON TROLL FISHER): Assessment: Marlee is a 19 year old [...] QOD Assessment & Plan (02/01/2020 12:08 PM SALMON TROLL FISHER): Assessment: Marlee is a 19 year old [...] RBCs. Assessment & Plan (01/31/2020 1:05 PM SALMON TROLL FISHER): Assessment: Marlee is a 19 year old [...] appetite in AM (per recs from Dr. Seirra) - TUMS, 1 tab BID - Salt [...] hematuria Assessment & Plan (01/30/2020 10:30 AM SALMON TROLL FISHER): Assessment: Marlee is a 19 year old [...] 10.2 Assessment & Plan (01/29/2020 9:39 PM SALMON TROLL FISHER): Assessment: Marlee is a 19 year old [...] syndrome Assessment & Plan (01/28/2020 11:59 AM SALMON TROLL FISHER): Assessment: Marlee is a 19 year old [...] QOD Assessment & Plan (01/27/2020 3:59 PM SALMON TROLL FISHER): Assessment: Marlee is a 19 year old [...] QOD Assessment & Plan (01/26/2020 5:14 PM SALMON TROLL FISHER): Assessment: Marlee is a 19 year old [...] QOD Assessment & Plan (01/25/2020 2:58 PM SALMON TROLL FISHER): Assessment: Marlee is a 19 year old [...] QOD Assessment & Plan (01/24/2020 11:54 AM SALMON TROLL FISHER): Assessment: Marlee is a 19 year old [...] orthostatics Assessment & Plan (01/23/2020 7:09 AM SALMON TROLL FISHER): Assessment: Marlee is a 19 year old [...] orthostatics Assessment & Plan (01/22/2020 4:25 PM SALMON TROLL FISHER): Assessment: Marlee is a 19 year old [...] orthostatics Assessment & Plan (01/21/2020 8:15 AM SALMON TROLL FISHER): Assessment: Marlee Chavez is a 19 year [...] orthostatics Assessment & Plan (01/20/2020 7:36 AM SALMON TROLL FISHER): Assessment: Marlee Chavez is a 19 year [...] orthostatics Assessment & Plan (01/19/2020 7:20 AM SALMON TROLL FISHER): Assessment: Marlee Chavez is a 19 year [...] orthostatics Assessment & Plan (01/18/2020 4:30 PM SALMON TROLL FISHER): Assessment: Marlee Chavez is a 19 year [...] consult Assessment & Plan (03/27/2020 10:35 AM SALMON TROLL FISHER): Assessment: Marlee is admitted on ED Protocol for severe malnutrition. Following feeding plan per Adolescent Medicine and Nutrition. Plan: - see plan under ARFID problem Assessment & Plan (03/26/2020 11:20 AM SALMON TROLL FISHER): Assessment: Marlee is admitted on ED Protocol for severe malnutrition. Following feeding plan per Adolescent Medicine and Nutrition. Plan: - see plan under ARFID problem Assessment & Plan (03/24/2020 11:19 AM SALMON TROLL FISHER): Assessment: Marlee is admitted on ED Protocol for severe malnutrition. Following feeding plan per Adolescent Medicine and Nutrition. Plan: - see plan under ARFID problem Assessment & Plan (03/23/2020 9:00 AM SALMON TROLL FISHER): Assessment: Marlee is admitted on ED Protocol for severe malnutrition. Following feeding plan per Adolescent Medicine and Nutrition. Plan: - see plan under ARFID problem Assessment & Plan (03/22/2020 12:21 PM SALMON TROLL FISHER): Assessment: Marlee is admitted on ED Protocol for severe malnutrition. Following feeding plan per Adolescent Medicine and Nutrition. Plan: - see plan under ARFID problem Assessment & Plan (03/17/2020 4:26 PM SALMON TROLL FISHER): Assessment: 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 and [...] anxiety Assessment & Plan (03/15/2020 11:10 AM SALMON TROLL FISHER): Assessment: Marlee is admitted on ED Protocol for severe malnutrition. Following feeding plan per Adolescent Medicine and Nutrition. Plan: - see plan under ARFID problem Assessment & Plan (03/10/2020 11:17 AM SALMON TROLL FISHER): Assessment: 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 and [...] needed Assessment & Plan (03/06/2020 10:09 AM SALMON TROLL FISHER): Assessment: Marlee is admitted on ED Protocol for severe malnutrition. Following feeding plan per Adolescent Medicine and Nutrition. Plan: - see plan under ARFID problem Assessment & Plan (03/04/2020 1:41 PM SALMON TROLL FISHER): Assessment: Marlee is admitted on ED Protocol for severe malnutrition. Following feeding plan per Adolescent Medicine and Nutrition. Plan: - see plan under ARFID problem Assessment & Plan (03/04/2020 11:50 AM SALMON TROLL FISHER): Assessment: Marlee is admitted on ED Protocol for severe malnutrition. Following feeding plan per Adolescent Medicine and Nutrition. Plan: - see plan under ARFID problem Assessment & Plan (03/03/2020 3:53 PM SALMON TROLL FISHER): Assessment: 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 and [...] dad. Assessment & Plan (02/27/2020 9:57 AM SALMON TROLL FISHER): Assessment: Marlee is admitted on ED Protocol for severe malnutrition. Following feeding plan per Adolescent Medicine and Nutrition. Plan: - see plan under ARFID problem Assessment & Plan (02/26/2020 9:59 AM SALMON TROLL FISHER): Assessment: 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 and [...] plan. Assessment & Plan (02/25/2020 5:48 PM SALMON TROLL FISHER): Assessment: 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 and [...] plan. Assessment & Plan (02/18/2020 4:54 PM SALMON TROLL FISHER): Assessment: 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 and [...] daily Assessment & Plan (02/11/2020 11:47 AM SALMON TROLL FISHER): Assessment: 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 and [...] BID Assessment & Plan (02/09/2020 11:50 AM SALMON TROLL FISHER): Assessment: Marlee is admitted on ED Protocol for severe malnutrition. Following feeding plan per Adolescent Medicine and Nutrition. Plan: - see plan under ARFID problem Assessment & Plan (02/07/2020 11:47 AM SALMON TROLL FISHER): Assessment: Marlee is admitted on ED Protocol for severe malnutrition. Following feeding plan per Adolescent Medicine and Nutrition. Plan: - see plan under ARFID problem Assessment & Plan (02/06/2020 8:12 AM SALMON TROLL FISHER): Assessment: Marlee is admitted on ED Protocol for severe malnutrition. Following feeding plan per Adolescent Medicine and Nutrition. Plan: - see plan under ARFID problem Assessment & Plan (02/05/2020 9:01 AM SALMON TROLL FISHER): Assessment: Marlee is admitted on ED Protocol for severe malnutrition. Following feeding plan per Adolescent Medicine and Nutrition. Plan: - see plan under ARFID problem Assessment & Plan (02/04/2020 12:34 PM SALMON TROLL FISHER): Assessment: Marlee is admitted on ED Protocol for severe malnutrition. Following feeding plan per Adolescent Medicine and Nutrition. Plan: - see plan under ARFID problem Assessment & Plan (02/03/2020 2:28 PM SALMON TROLL FISHER): Assessment: Marlee is admitted on ED Protocol for severe malnutrition. Following feeding plan per Adolescent Medicine and Nutrition. Plan: - see plan under ARFID problem Assessment & Plan (02/02/2020 3:57 PM SALMON TROLL FISHER): Assessment: Marlee is admitted on ED Protocol for severe malnutrition. Following feeding plan per Adolescent Medicine and Nutrition. Plan: - see plan under ARFID problem Assessment & Plan (02/01/2020 12:10 PM SALMON TROLL FISHER): Assessment: Marlee is admitted on ED Protocol for severe malnutrition. Following feeding plan per Adolescent Medicine and Nutrition. Plan: - see plan under ARFID problem Assessment & Plan (01/31/2020 1:04 PM SALMON TROLL FISHER): Assessment: Marlee is admitted on ED Protocol for severe malnutrition. Following feeding plan per Adolescent Medicine and Nutrition. Plan: - see plan under ARFID problem Assessment & Plan (01/30/2020 10:28 AM SALMON TROLL FISHER): Assessment: Marlee is admitted on ED Protocol for severe malnutrition. Following feeding plan per Adolescent Medicine and Nutrition. Plan: - see plan under ARFID problem Assessment & Plan (01/28/2020 4:29 PM SALMON TROLL FISHER): Assessment: 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 and [...] BID Assessment & Plan (01/24/2020 11:54 AM SALMON TROLL FISHER): Assessment: Marlee is admitted on ED Protocol for severe malnutrition. Following feeding plan per Adolescent Medicine and Nutrition. Plan: - see plan under ARFID problem Assessment & Plan (01/23/2020 7:09 AM SALMON TROLL FISHER): Assessment: Marlee is admitted on ED Protocol for severe malnutrition. Following feeding plan per Adolescent Medicine and Nutrition. Plan: - see plan under ARFID problem Assessment & Plan (01/22/2020 9:48 AM SALMON TROLL FISHER): Assessment: 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 and [...] () Assessment & Plan (01/22/2020 7:52 AM SALMON TROLL FISHER): Assessment: Marlee is admitted on ED Protocol for severe malnutrition. Following feeding plan per Adolescent Medicine and Nutrition. Plan: - see plan under ARFID problem Assessment & Plan (01/21/2020 10:33 AM SALMON TROLL FISHER): Assessment: 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 and [...] () Assessment & Plan (01/21/2020 7:40 AM SALMON TROLL FISHER): Assessment: Marlee is admitted on ED Protocol for severe malnutrition. Following feeding plan per Adolescent Medicine and Nutrition. Plan: - see plan under ARFID problem Assessment & Plan (01/20/2020 7:36 AM SALMON TROLL FISHER): Assessment: Marlee is admitted on ED Protocol for severe malnutrition. Following feeding plan per Adolescent Medicine and Nutrition. Plan: - see plan under ARFID problem Assessment & Plan (01/19/2020 7:22 AM SALMON TROLL FISHER): Assessment: Marlee is admitted on ED Protocol for severe malnutrition. Following feeding plan per Adolescent Medicine and Nutrition. Plan: - see plan under ARFID problem Assessment & Plan (01/18/2020 4:25 PM SALMON TROLL FISHER): Assessment: Marlee Chavez is a 19 year [...] orthostatics Assessment & Plan (01/17/2020 12:38 PM SALMON TROLL FISHER): Assessment: Marlee Chavez is a 19 year [...] anxiety Assessment & Plan (01/16/2020 1:41 PM SALMON TROLL FISHER): Assessment: Marlee Chavez is a 19 year [...] anxiety Assessment & Plan (01/15/2020 8:49 PM SALMON TROLL FISHER): Assessment: 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 and [...] counseling. Assessment & Plan (01/15/2020 11:57 AM SALMON TROLL FISHER): Assessment: Marlee Chavez is a 19 year [...] anxiety Assessment & Plan (01/14/2020 1:00 PM SALMON TROLL FISHER): Assessment: 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 and [...] () Assessment & Plan (01/14/2020 9:54 AM SALMON TROLL FISHER): Assessment: Marlee Chavez is a 19 year [...] anxiety Assessment & Plan (01/13/2020 2:34 PM SALMON TROLL FISHER): Assessment: Marlee Chavez is a 19 year [...] anxiety Assessment & Plan (01/13/2020 12:01 PM SALMON TROLL FISHER): Moderate protein-calorie malnutrition Assessment: Marlee Chavez is [...] thereafter Assessment & Plan (01/12/2020 3:40 PM SALMON TROLL FISHER): Moderate protein-calorie malnutrition Assessment: Marlee Chavez is [...] chart) Assessment & Plan (01/12/2020 1:25 PM SALMON TROLL FISHER): Assessment: Marlee Chavez is a 19 year [...] anxiety Assessment & Plan (01/11/2020 11:43 AM SALMON TROLL FISHER): Assessment: Marlee Chavez is a 19 year [...] cysts Assessment & Plan (01/10/2020 9:32 AM SALMON TROLL FISHER): Assessment: Marlee Chavez is a 19 year [...] cysts Assessment & Plan (01/09/2020 11:08 AM SALMON TROLL FISHER): Assessment: Marlee Chavez is a 19 year [...] cysts Assessment & Plan (01/08/2020 1:32 PM SALMON TROLL FISHER): Assessment: Marlee Chavez is a 19 year [...] cysts Assessment & Plan (01/07/2020 2:52 PM SALMON TROLL FISHER): Assessment: Marlee Chavez is a 19 year [...] cysts Assessment & Plan (01/06/2020 11:27 AM SALMON TROLL FISHER): Assessment: Marlee Chavez is a 19 year [...] cysts Assessment & Plan (01/05/2020 3:49 PM SALMON TROLL FISHER): Assessment: Marlee Chavez is a 19 year [...] cysts Assessment & Plan (01/04/2020 1:53 PM SALMON TROLL FISHER): Assessment: Marlee Chavez is a 19 year [...] cysts Assessment & Plan (01/03/2020 12:34 AM SALMON TROLL FISHER): Assessment: Marele Chavez is a 19 year old with [...] to General medicine (purple team)- [facility]. Valdez [facility] 95[facility] -Continue home medications: Zyprexa, [...] 03/18/2023 Assessment & Plan (01/24/2022 5:04 PM SALMON TROLL FISHER): Assessment: Marlee Chavez is a 20 year [...] gabapentin Assessment & Plan (01/23/2022 6:56 PM SALMON TROLL FISHER): Assessment: Marlee Chavez is a 20 year [...] & Plan (08/10/2021 12:45 PM CDT): Assessment: Malree is an 20 year old female MDD, [...] pain Assessment & Plan (01/08/2021 3:05 PM SALMON TROLL FISHER): Assessment: Patient is an 20 year old [...] I&Os Assessment & Plan (01/07/2021 4:52 PM SALMON TROLL FISHER): Assessment: Patient is an 20 year old [...] it Assessment & Plan (01/06/2021 6:00 PM SALMON TROLL FISHER): Assessment: Patient is an 20 year old [...] I&Os Assessment & Plan (01/05/2021 1:27 PM SALMON TROLL FISHER): Assessment: Patient is an 20 year old [...] I&Os Assessment & Plan (01/04/2021 9:17 PM SALMON TROLL FISHER): Assessment: Patient is an 20 year old [...] I&Os Assessment & Plan (01/03/2021 8:43 PM SALMON TROLL FISHER): Assessment: Patient is an 20 year old [...] wearing condom. She has upcoming appointment with business banking officer next month at which time, she will be getting a IUD. Plan: -urine test today -GC, chlamydia, trichomonas testing Assessment & Plan (05/24/2020 2:43 PM CDT): Will get urine Hcg and STI testing. Mom is aware and Marlee is ok with us communicating results to her mother. Purging 03/24/2020 05/24/2020 Assessment & Plan (04/05/2020 3:23 PM SALMON TROLL FISHER): Assessment: Has been drinking excessive amounts of water and putting her fingers in her mouth to induce vomiting. No recorded emesis since 03/25. Plan: Will limit access to water to 250ml at a time. May only bathe once per day after she has taken her meds, had breakfast and lunch. Assessment & Plan (04/04/2020 12:58 PM SALMON TROLL FISHER): Assessment: Has been drinking excessive amounts of water and putting her fingers in her mouth to induce vomiting. No recorded emesis since 03/25. Plan: Will limit access to water to 250ml at a time. May only bathe once per day after she has taken her meds, had breakfast and lunch. Assessment & Plan (04/01/2020 11:55 AM SALMON TROLL FISHER): Assessment: Has been drinking excessive amounts of water and putting her fingers in her mouth to induce vomiting. No recorded emesis since 03/25. Plan: Will limit access to water to 250ml at a time. May only bathe once per day after she has taken her meds, had breakfast and lunch. Assessment & Plan (03/24/2020 4:53 PM SALMON TROLL FISHER): Assessment: Has been drinking excessive amounts of water and putting her fingers in her mouth to induce vomiting. Plan: Will limit access to water to 250ml at a time. May only bathe once per day after she has taken her meds, had breakfast and lunch. Ovarian cyst 01/12/2020 03/19/2020 Assessment & Plan (03/15/2020 11:10 AM SALMON TROLL FISHER): Assessment: on ultrasound on R Plan: -Radiology recommended repeat imaging in 6 months for ovarian cysts Assessment & Plan (03/04/2020 1:41 PM SALMON TROLL FISHER): Assessment: on ultrasound on R Plan: -Radiology recommended repeat imaging in 6 months for ovarian cysts Assessment & Plan (03/04/2020 11:50 AM SALMON TROLL FISHER): Assessment: on ultrasound on R Plan: -Radiology recommended repeat imaging in 6 months for ovarian cysts Assessment & Plan (02/27/2020 9:58 AM SALMON TROLL FISHER): Assessment: on ultrasound on R Plan: -Radiology recommended repeat imaging in 6 months for ovarian cysts Assessment & Plan (01/28/2020 11:59 AM SALMON TROLL FISHER): Assessment: on ultrasound on R Plan: -Radiology recommended repeat imaging in 6 months for ovarian cysts Assessment & Plan (01/27/2020 3:52 PM SALMON TROLL FISHER): Assessment: on ultrasound on R Plan: -Radiology recommended repeat imaging in 6 months for ovarian cysts Assessment & Plan (01/26/2020 6:01 PM SALMON TROLL FISHER): Assessment: on ultrasound on R Plan: -Radiology recommended repeat imaging in 6 months for ovarian cysts Assessment & Plan (01/13/2020 2:33 PM SALMON TROLL FISHER): Assessment: on ultrasound on R Plan: -Radiology recommended repeat imaging in 6 months for ovarian cysts Assessment & Plan (01/12/2020 1:26 PM SALMON TROLL FISHER): Assessment: on ultrasound on R Plan: -Radiology recommended repeat imaging in 6 months for ovarian cysts Self-injurious behavior 03/25/201705/12 Major depressive disorder, severe 03/21/2017 05/24/2020 Intractable vomiting 020 Immunizations Name Administration Dates Next Due ABS Medical primary monoval ent 12+ yr 0.3mL Purple [...] Recorded Patient Health Questionnaire-2 Score 0 01/15/2024 [facility] [place] [facility] - Occupational Stress [...] place to sleep or slept in a assisted (including now)? No 04/24/2023 Sex and Gender Information Value Date Recorded Sex Assigned at Not on file Gender Identity Not on file Sexual Orientation Not on file Last Filed Vital Signs Vital Sign Reading Time Taken Comments Blood Pressure 105/74 01/15/2024 2:50 PM SALMON TROLL FISHER Pulse 65 01/15/2024 2:50 PM SALMON TROLL FISHER Temperature 36.3 C (97.4 F) 05/21/2023 11:54 AM CDT Respiratory Rate 18 04/28/2023 7:42 PM CDT Oxygen Saturation 99% 05/21/2023 11:54 AM CDT Inhaled Oxygen Concentration 21% 06/27/2021 6 :30 PM CDT Weight 46.3 kg (102 lb) 01/15/2024 2:50 PM SALMON TROLL FISHER Height 154.9 cm (5' 1 ) 01/15/2024 2:50 PM SALMON TROLL FISHER Body Mass Index 19.27 01/15/2024 2:50 PM SALMON TROLL FISHER Functional Status Functional Status Response Date of [...] Description 10/08/2024 8:00 AM CDT Office Visit [facility] [address] [place] [address] Ronel Thornton DO [address] [place] [address] Procedures Procedure Name Priority Date/Time Associated [...] ACCOUNT BILL Comment: Performed at: - [facility] [address] [id number] Superintendent Marine: Meredith Gil MD, Phone: [phone] Performed at: - [facility] [address] [id number] Superintendent Marine: Meredith Gil MD, Phone: [phone] Diagnosis Comment(A) [facility] ACCOUNT BILL Comment: EPITHELIAL [...] - 12/05/2023 5:09 PM CDT Performed at: [facility] [id number] Superintendent Marine: Meredith Gil MD, Phone: [phone] Specimen Comment: [id number] Specimen Comment: Source.............Cervix Specimen Comment: No. of containers..01 ThinPrep Vial Nai Jurado MD LAB - PATHOLOGY/CYTO LOGY ORDERABLES Performing Organization Address City/[facility] Co de Phone Number [facility] ACCOUNT BILL [address] [place] [address] * HIV-1 HIV-2 ANTIBODY + HIV P24 AG PANEL (11/29/2023 10:55 AM CDT) [facility] HIV Screen 4th Generation w Reflex Non Reactive Non Reactive [facility] ACCOUNT BILL Comment: HIV-1/HIV-2 antibodies and HIV-1 p24 antigen were NOT detected. There is no laboratory evidence of HIV infection. HIV Negative Blood BLOOD SPECIMEN / Unknown 11/29/2023 10:55 AM CDT 11/29/2023 Narrative [facility] ACCOUNT BILL - 11/30/2023 10:10 AM CDT Performed at: [facility] [id number] Superintendent Marine: Karlos Huffman PhD, Phone: [phone] Nai Jurado MD LAB - CHEMISTRY ORDE RABJOCELYN Performing Organization Address City/[facility] Co de Phone Number [facility] ACCOUNT BILL [address] [place] [address] * HEPATITIS C AB W/RFLX TO HCV RNA QN PCR (12/07/2021) [facility] Hepatitis C Antibody NON-REACTI VE NON-REACT KASIA [facility]ST Signal to Cut-Off 0.08 <1.00 QUEST Comment: HCV antibody was non-reactive. There is no laboratory evidence of HCV infection. In most cases, no further action is required. However, if recent HCV exposure is suspected, a test for HCV RNA (test code 65369) is suggested. For additional information please refer to http://education.[employer]/faq/QNW22m7 (This link is being provided for informational/ educational purposes only.) Test Performed at: [facility] [address] [place] [address] PURVI PABLO DO,MPH Blood BLOOD SPECIMEN / Unknown 12/07/2021 12/07/2021 10:47 AM CDT Karrie Mack MD LAB - CHEMISTRY ORD ERABLES Performing Organization Address City/State/[facility] Co de Phone Number [employer] [address] [place] [address] from Last 3 Months or Most Recently [...] 4:54 PM 06/22/2022 2:44 PM Care Teams Poker Manager Relationship Specialty Start Date End Date Ronel Thornton DO [address] [place] [address] PCP - General Family Medicine 03/18/23 Ronel Thornton DO [address] [place] [address] PCP - Attributed[facility] 04/12/23
--- OUTSIDE RECORDS SUMMARY | 2024-03-28 03:37 | XMS_ITS | Clinical Summary ---
Author Organization [facility] Address [address] [place] [address] Phone Care Team Providers Care Leather Case Finisher Name Role Phone Mellissa Jiménez MD Primary [...] on file Legal Sex Female 10:44 PM LOADER OPERATOR/GROUND LEADER Gender Identity Not on file Sexual Orientation [...] 52.2 kg (115 lb) 04/20/2023 2:30 AM LOADER OPERATOR/GROUND LEADER Height 152.4 cm (5') 04/20/2023 2:30 AM LOADER OPERATOR/GROUND LEADER Body Mass Index 22.46 04/20/2023 2:30 AM LOADER OPERATOR/GROUND LEADER Plan of Treatment Health Maintenance Due Date [...] 02/22/2004, 06/09/2003, 02/22/2003, Additional history exists Insurance [facility] [id number] Advance Directives For more information, please contact: [phone] * Full Code (Latest Code Status on File) Date Activated Date Inactivated Comments 04/20/2023 2:32 AM 04/21/2023 4:11 PM Care Teams Leather Case Finisher Relationship Specialty Start Date End Date Mellissa Jiménez MD [address] [place] [id number] PCP - General Family Practice 04/20/23
--- OUTSIDE RECORDS SUMMARY | 2024-03-28 03:37 | XMS_ITS | Encounter Summary ---
Author Organization [facility] Address [address] [facility] [place] [address] Care Team Providers Care Safety And Security Officer Name Role Phone Mellissa Jiménez MD Primary Care Provider [phone] Ronel Thornton DO Primary Care Provider [phone] Daphnie Gillespie MD Unavailable Juliana Peralta JACQUARD TWINE POLISHER OPERATOR Unavailable [phone] Juliana Peralta JACQUARD TWINE POLISHER OPERATOR Unavailable [phone] Ronle Thornton DO Unavailable Kenyatta Taylor RN Unavailable Tiago Lew Unavailable [phone] Reason for Visit * Reason Onset Date Comments Appointment 10/05/2020 Contraceptive management 10/05/2020 Encounter Details Date Type Department Care Team (Late st Contact Info) Description 10/05/2020 Telephone [facility] [address] [place] [address] Karrie Mack MD [address] [place] [address] Appointment; Contraceptive management Social History [...] the office yet to get scheduled. CB# [phone] documented in this encounter Plan of Treatment Upcoming Encounters Date Type Department Care Team (Late st Contact Info) Description 10/08/2024 8:00 AM CDT Office Visit [facility] - Family Medicine [address] [place] [address] [id number] Ronel Thornton DO [address] [place] [address] documented as of this encounter Visit Diagnoses Not on filedocumented in this encounter Additional Health Concerns Infection Onset Date Last Indicated Resolved Time COVID-19 Under Investigation 08/10/2021 08/10/2021 08/10/2021 2:59 AM CDT documented as of this encounter Care Teams Safety And Security Officer Relationship Specialty Start Date End Date Mellissa Jiménez MD [address] [place] [address] [place] [phone] PCP - General Family Medicine 04/25/20 03/17/23 Ronel Thornton DO [address] [place] [id number] PCP - General Family Medicine 03/18/23 Daphnie Gillespie MD [address] [place] [address] PCP - Attributed-[facility] 02/11/23 04/11/23 Ronel Thornton DO [address] [place] [id number] PCP - Attributed[facility] 04/12/23 Juliana Peralta MSW Outpatient Audio/Video Technician Care Management 04/24/2304/11 Juliana Peralta MSW Outpatient Audio/Video Technician Care Management 04/30/2304/12 Kenyatta Taylor RN [address] [address] Protection AgentCase Therapist 09/02/23 10/04/23 Tiago Lew Care Coordination Specialist Care Management 09/26/23 11/10/23 documented as of this encounter
[2024-03-28] MEDS: droPERidol 5 MG/2 ML VIAL IM (04:11)
--- NOTE | 2024-03-28 05:54 | PC.NURSE ---
Rn went into pt room to see if she could give us a urine sample. Pt is now sleeping and MD Meza states to let pt sleep due to her overowrking herself and hyperventilating from her anxiety.
[2024-03-28 05:55] LABS: Basophils Percent Auto 0.3 % (0.2-1.2); Hemoglobin 13.3 g/dL (12.0-15.0); Immature Granulocyte Absolute 0.02 K/mm3 (0.00-0.031); Immature Granulocyte Percent A 0.2 % (0-0.5); Lymphocytes Percent Auto 8.6 % (18.3-44.2); Mean Corpuscular Hemoglobin 30.9 pg (26-34); Mean Corpuscular Volume 88.4 fl (80-100); Mean Platelet Volume 10.3 fl (7.4-10.4); Monocytes Absolute Auto 0.7 K/mm3 (0.1-0.6); Monocytes Percent Auto 6.4 % (2.6-8.5); Neutrophils Absolute Auto 8.8 K/mm3 (1.3-6.7); Neutrophils Percent Auto 84.5 % (45.5-73.1); Platelet Count Result 286 k/mm3 (150-375); Red Cell Distribution Width 12.5 % (11.5-14.5); White Blood Count 10.4 K/mm3 (4.5-10.0)
[2024-03-28 06:06] LABS: Acetaminophen < 10 ug/mL (10-30); Ethanol < 10 mg/dL (<10); Salicylate < 1.0 mg/dL (2-20)
[2024-03-28 06:07] LABS: Alanine Aminotransferase 15 U/L (6-35); Albumin Level 5.1 g/dL (3.5-5.1); Alkaline Phosphatase 80 U/L (38-126); Anion Gap 21 mmol/L (4-12); Aspartate Amino Transferase 24 U/L (14-36); Bilirubin,Total 0.9 mg/dL (0.2-1.3); Blood Urea Nitrogen 15 mg/dL (7-17); Calcium 9.5 mg/dL (8.4-10.2); Carbon Dioxide 17 mmol/L (22-30); Chloride 100 mmol/L (98-107); Estimated Glomerular Filt Rate > 60; Glucose 133 mg/dL (65-110); Potassium 3.3 mmol/L (3.4-5.0); Sodium 138 mmol/L (137-145)
[2024-03-28 06:26] VITALS: BP 121/69; PULSE 83; RESP 18; O2SAT 99
[2024-03-28 07:24] LABS: BEDSIDEPREGUCG Negative (Negative)
[2024-03-28 07:38] VITALS: BP 120/87; PULSE 100; RESP 16; O2SAT 98
[2024-03-28 07:56] LABS: Add Urine Microscopic? YES; Appearance Urine Clear (Clear); Bacteria Urine None Seen /hpf; Bilirubin Urine Negative (Negative); Blood Urine Trace (Negative); Color Urine Yellow (Yellow); Glucose Urine UA Negative (Negative); Ketones Urine 4+ mg/dL (Negative); Leukocyte Esterase Ur Negative LEU/UL (Negative); Need Manual Microscopic Reviewed; Nitrate Urine Negative (Negative); Protein Urine 1+ mg/dL (Negative); RBC Urine 0-2 /hpf (0-2); Specific Grav Ur 1.031 (1.001-1.035); Squamous Epithelial Cell Urine Occasional /hpf (Few); WBC Urine 0-5 /hpf (0-3); pH Urine 5.5 (5.0-9.0)
--- NOTE | 2024-03-28 08:11 | PC.NURSE ---
Pt. Nigel, Yulisa Block, called for update. This RN updated Nigel that pt. is sleeping and cannot share any health information without her consent. Nigel agreed to let the pt. sleep and update will be provided if pt. gives consent at a later time.
[2024-03-28 08:19] LABS: Amphetamine Screen Urine Negative (Negative); Barbiturate Screen Urine Negative (Negative); Benzodiazepines Screen Urine Negative (Negative); Cannabinoid Screen Urine Positive (Negative); Cocaine Screen Urine Negative (Negative); Methadone Screen Urine Negative (Negative); Opiate Screen Urine Negative (Negative); Phencyclidine Screen Urine Negative (Negative)
[2024-03-28 09:21] VITALS: BP 129/88; PULSE 98; RESP 14; O2SAT 98
--- NOTE | 2024-03-28 11:08 | PC.NURSE ---
This RN and Shant JOHNSON spoke with pt. at bedside. Pt. denies SI/HI. Pt. is A&Ox4, speaking in clear sentences. Pt. offered to have crisis come speak with her. Pt. denied, stating she would rather make outpatient appointments herself for further psychiatric help. Pt. states her health information can be shared with Grandma Yulisa. Yulisa phoned by this RN for update.
--- NOTE | 2024-03-28 11:13 | PC.NURSE ---
Pt. Nigel updated by this RN. All questions answered. Pt. d/c to home with Nigel who is aware of plan.
[2024-03-28 11:20] VITALS: BP 126/72; PULSE 85; RESP 16; O2SAT 98
== END 2024-03-28 11:24 | disposition home or self-care (01) ==
PROVIDERS: Emergency Medicine; Emergency Provider Emergency Medicine; PCP Family Medicine
DX: F41.0 Panic disorder [episodic paroxysmal anxiety] (principal); R06.4 Hyperventilation; T43.506A Underdosing of unspecified antipsychotics and neuroleptics, initial encounter; Z91.128 Patient's intentional underdosing of medication regimen for other reason
CPT/HCPCS: 36415; 80053; 80143; 80179; 80307; 81001; 81025; 82077; 84443; 85025; 96372; 99284; J1790; J2060

== ENCOUNTER 2024-06-04 06:03 | Emergency (ER) | payer OTHER, SELFPAY ==
[2024-06-04 06:00] VITALS: BP 130/99; PULSE 97; RESP 22; TEMP 36.6; O2SAT 97
--- NOTE | 2024-06-04 06:14 | ED.GENADULT ---
HPI - General Adult General Chief complaint: Anxiety Stated complaint: Anxiety Time Seen by Provider: 06/04/24 06:14 History of Present Illness HPI narrative: This is a pleasant 23-year-old female with history of anxiety panic disorder presenting with a panic attack. She woke up at 4:00 a.m. with her typical panic attack. She is tremulous and feels that something is wrong. She knows is that this is a panic attack but has been unable to get the feeling under control. She has been started on Lexapro about 1 week ago by her psychiatrist. No other complaints. Not suicidal not homicidal Related Data Home Medications ?Medication ?Instructions ?Recorded ?Confirmed ?Last Taken ?Type clonazepam 1 mg tablet 1 tablet PO TID 07/17/21 07/18/21 Unknown History cyproheptadine 4 mg tablet See Rx Instructions .Route .COMPLEX 07/17/21 07/18/21 Unknown History fluoxetine 20 mg capsule 20 cap PO DAILY 07/17/21 07/18/21 Unknown History gabapentin 300 mg capsule 300 cap PO TID 07/17/21 07/18/21 Unknown History hydroxyzine HCl 10 mg tablet 10 tablet PO TID 07/17/21 07/18/21 Unknown History olanzapine 15 mg tablet 15 tablet PO DAILY 07/17/21 07/18/21 Unknown History quetiapine 50 mg tablet 1 tablet PO BID 07/17/21 07/18/21 Unknown History ondansetron HCl 8 mg tablet 8 mg PO Q8H 07/20/21 Unknown History Allergies Allergy/AdvReac Type Severity Reaction Status Date / Time No Known Allergies Allergy Verified 03/28/24 03:10 [facility] Past Medical History Medical History Drug withdrawal seizure History of eating disorder Anxiety Depression Family History Family History Grandparent History of alcoholism Depression Mother History of alcoholism Hypertension Depression Social History Social History Smoking status: Never smoker Alcohol intake: never Substance use: former Substance use type: marijuana Living arrangements: with roommate(s) Occupation/Education: unemployed Additional occupation/education comments: not currently working or in school Gender identity (if verbalized by the patient): Female Exam Narrative: APPEARANCE: Anxious appearing, tremulous Head: atraumatic. EYES: EOMI, NOSE: Atraumatic NECK: Trachea midline RESPIRATORY: No increased rate of breathing CTAB CARDIOVASCULAR: RRR, ABDOMINAL: Non-distended MUSCULOSKELETAl: No obvious deformities NEURO: Alert. Moving 4/4 extremities SKIN:: Warm, dry. Normal color PSYCHIATRIC: Normal affect Course Vital Signs Vital signs: Vital Signs Temperature 98 F 06/04/24 06:00 Pulse Rate 97 06/04/24 06:00 Respiratory Rate 22 H 06/04/24 06:00 Blood Pressure 130/99 H 06/04/24 06:00 Pulse Oximetry 97 06/04/24 06:00 Oxygen Delivery Room Air 06/04/24 06:00 Temperature 98.7 F 06/04/24 06:38 Pulse Rate 72 06/04/24 07:10 Respiratory Rate 16 06/04/24 07:10 Blood Pressure 128/90 06/04/24 07:10 Pulse Oximetry 99 06/04/24 07:10 Oxygen Delivery Room Air 06/04/24 06:00 Medical Decision Making MDM Narrative Medical decision making narrative: -Course: 23-year-old female history of anxiety and panic attacks presenting with anxiety and a panic attack. Patient given 5 mg IV Valium and 5mg haldol Patient was able to relax. She is not suicidal homicidal or psychotic. She will be discharged follow-up with a psychiatrist. Vital Signs Vital Signs: Vital Signs Temperature 98 F 06/04/24 06:00 Pulse Rate 97 06/04/24 06:00 Respiratory Rate 22 H 06/04/24 06:00 Blood Pressure 130/99 H 06/04/24 06:00 Pulse Oximetry 97 06/04/24 06:00 Oxygen Delivery Room Air 06/04/24 06:00 Temperature 98.7 F 06/04/24 06:38 Pulse Rate 72 06/04/24 07:10 Respiratory Rate 16 06/04/24 07:10 Blood Pressure 128/90 06/04/24 07:10 Pulse Oximetry 99 06/04/24 07:10 Oxygen Delivery Room Air 06/04/24 06:00 Discharge Plan Discharge Clinical Impression: Panic disorder Patient Disposition: Home Condition: Stable Instructions: Antibiotic Form, Anxiety (ED) Additional Instructions: Please continue working with her psychiatrist to get her anxiety under control. Please return if you develop thoughts of harming herself or others. Patient Language: Hungarian Prescriptions: No Action clonazepam 1 mg tablet 1 tablet PO TID cyproheptadine 4 mg tablet See Rx Instructions .ROUTE .COMPLEX Rx Instructions: as prescribed gabapentin 300 mg capsule 300 cap PO TID hydroxyzine HCl 10 mg tablet 10 tablet PO TID fluoxetine 20 mg capsule 20 cap PO DAILY quetiapine 50 mg tablet 1 tablet PO BID olanzapine 15 mg tablet 15 tablet PO DAILY ondansetron HCl 8 mg tablet 8 mg PO Q8H hydroxyzine pamoate [Vistaril] 25 mg capsule 25 mg PO TID PRN (Reason: anxiety) Qty: 20 0RF Follow-up/Referrals: Tino,Mellissa Ferraro MD [Primary Care Provider] -
[2024-06-04] MEDS: diazePAM INJ (*CRX) 10 MG/2 ML SYRINGE 5 MG IM (06:15)
[2024-06-04 06:38] VITALS: BP 130/99; PULSE 97; RESP 22; TEMP 37.1; O2SAT 98
[2024-06-04] MEDS: HALOPERIDOL LACTATE 5 MG/ML VIAL IM (06:40)
--- OUTSIDE RECORDS SUMMARY | 2024-06-04 07:00 | XMS_ITS | Clinical Summary ---
Author Organization [facility] Address [address] [place] [address] Phone Care Team Providers Care Snow Removal Supervisor Name Role Phone Mellissa Jiménez MD Primary Care Provider + Allergies No known active allergies Active Problems Problem Noted Date Diagnosed Date Drug overdose, intentional 04/20/2023 Seizures 04/20/2023 Acute respiratory failure 04/20/2023 Encounters Date Type Department Care Team Description 04/18/2024 External Device Data [facility] ABSTRACTION Provider, Abstract 04/17/2024 External Device Data [facility] ABSTRACTION Provider, Abstract 04/15/2024 External Device Data [facility] ABSTRACTION Provider, Abstract 04/14/2024 External Device Data [facility] ABSTRACTION Provider, Abstract 04/01/2024 External Device Data [facility] ABSTRACTION Provider, Abstract 03/11/2024 External Device Data [facility] ABSTRACTION Provider, Abstract from Last 3 Months Social History Tobacco Use Types Packs/Day Years Used Date Smoking Tobacco: Never Assessed Comments Unknown Sex and Gender Information Value Date Recorded Sex Assigned at Not on file Legal Sex Female 10:44 PM AQUATIC ECOLOGIST Gender Identity Not on file Sexual Orientation [...] 52.2 kg (115 lb) 04/20/2023 2:30 AM AQUATIC ECOLOGIST Height 152.4 cm (5') 04/20/2023 2:30 AM AQUATIC ECOLOGIST Body Mass Index 22.46 04/20/2023 2:30 AM AQUATIC ECOLOGIST Plan of Treatment Health Maintenance Due Date Last Done Comments CHLAMYDIA SCREENING (ANNUAL) 11-24 YEARS 2013 HPV VACCINES (1 - 3-dose series) 2017 CERVICAL CANCER SCREENING 08/17/2023 HPV/Cotest (21-29) 08/17/2023 PAP SMEAR 08/17/2023 INFLUENZA VACCINE (#1) 2023 01/25/2022, 2020 COVID-19 Vaccine ( - 2023-2 5 season) 2023 07/26/2020, 07/03/2020 DTAP/TDAP/TD VACCINES (7 - T d or Tdap) 12/16/2023 12/15/2013, 07/08/2007, 02/22/2004, Additional history exists HEPATITIS B VACCINES Completed 02/22/2004, 06/09/2003, 02/22/2003, Additional history exists [place] [address] [address] [id number] Advance Directives For more information, please contact: [phone] * Full Code (Latest Code Status on File) Date Activated Date Inactivated Comments 04/20/2023 2:32 AM 04/21/2023 4:11 PM Care Teams Snow Removal Supervisor Relationship Specialty Start Date End Date Mellissa Jiménez MD [address] [place] [address] [place] [address] PCP - General Family Practice 04/20/23
--- OUTSIDE RECORDS SUMMARY | 2024-06-04 07:00 | XMS_ITS | Encounter Summary ---
Author Organization [facility] Address [address] [place] [address] Care Team Providers Care Open Hearth Furnace Operator Name Role Phone Mellissa Jiménez MD Primary Care Provider [phone] Ronel Thornton DO Primary Care Provider [phone] Daphnie Gillespie MD Unavailable Juliana Peralta ASSURANCE SERVICES MANAGER HEALTH CARE Unavailable [phone] Juliana Peralta ASSURANCE SERVICES MANAGER HEALTH CARE Unavailable [phone] Ronel Thornton DO Unavailable [phone] Kenyatta Taylor RN Unavailable [phone] Tiago Lew Unavailable [phone] Reason for Visit * Reason Onset Date Comments Eating disorder 08/04/2020 Encounter Details Date Type Department Care Team (Late st Contact Info) Description 08/04/2020 Telephone [facility] Concrete Buster Operator [address] [place] [id number] Flor Martinez, FIRE PROTECTION SPECIALIST Eating disorder Social History Tobacco Use Types Packs/Day Years Used Date Smoking Tobacco: Never Smokeless Tobacco: Never Alcohol Use Standard Drinks/Week Comments No 0 (1 standard drink = 0.6 oz pur e alcohol) Comments No Sex and Gender Information Value Date Recorded Sex Assigned at Not on file Legal Sex Female 6:25 PM MANIFEST CLERK Gender Identity Not on file Sexual Orientation Not on file COVID-19 Exposure Response Date Recorded In the last month, have you been in contact with someone who was confirmed or suspected to have Coronavirus / COVID-19? No / Unsure 07/25/2020 10:52 AM CDT documented as of this encounter Functional Status * Is person deaf or have serious hearing difficulty? Answer Date of Assessment Author No 04/08/2020 1:15 PM Rosetta Drew RN * Is person blind or have serious difficulty seeing? Answer Date of Assessment Author No 04/08/2020 1:15 PM Rosetta Drew RN * Does person have serious difficulty walking/climbing stairs? Answer Date of Assessment Author No 04/08/2020 1:15 PM Rosetta Drew RN * Does person have difficulty dressing/bathing? Answer Date of Assessment Author No 04/08/2020 1:15 PM Rosetta Drew RN * Does person have difficulty doing errands alone? Answer Date of Assessment Author No 04/08/2020 1:15 PM Rosetta Drew RN documented as of this encounter Mental Status * Does person have difficulty concentrating/remembering/making decisions? Answer Entry Date Author No 04/08/2020 1:15 PM Rosetta Drew RN documented in this encounter Miscellaneous Notes * Telephone Encounter - Flor Martinez LCSW - 08/04/2020 10:40 AM CDT Several phone calls with Kenyatta's mother Esperanza and [facility] this week regarding Kenyatta's relapse, and mother's belief that she needs to be admitted to [facility]. Spoke with mother again this a.m, and they have a phone intake assessment with [facility] next SaturdayAugust 08. documented in this encounter Plan of Treatment Upcoming Encounters Date Type Department Care Team (Late st Contact Info) Description 06/08/2024 1:20 PM CDT Office Visit [facility] - Family Medicine [address] [place] [address] Ronel Thornton DO [address] [place] [address] 01/20/2025 8:20 AM MANIFEST CLERK Office Visit [facility] - Family Medicine [address] [place] [address] [id number] [place] [address] [place] [address] documented as of this encounter Visit Diagnoses Not on filedocumented in this encounter Additional Health Concerns Infection Onset Date Last Indicated Resolved Time COVID-19 Under Investigation 08/10/2021 08/10/2021 08/10/2021 2:59 AM CDT documented as of this encounter Care Teams Open Hearth Furnace Operator Relationship Specialty Start Date End Date Mellissa Jiménez MD [address] [place] [address] [place] [phone] PCP - General Family Medicine 04/25/20 03/17/23 Ronel Thornton DO [address] [place] [address] PCP - General Family Medicine 03/18/23 Daphnie Gillespie MD [address] [place] [address] PCP - Attributed-[facility] 02/11/23 04/11/23 Ronel Thornton DO [address] [place] [id number] PCP - Attributed[facility] 04/12/23 Juliana Peralta MSW Outpatient Automobile Rental Agent Care Management 04/24/2304/11 Juliana Peralta MSW Outpatient Automobile Rental Agent Care Management 04/30/2304/12 eKnyatta Taylor, RN [address] [address] Commutator UndercutterOperations Scheduler 09/02/23 10/04/23 Tiago Lew Care Coordination Specialist Care Management 09/26/23 11/10/23 documented as of this encounter
--- OUTSIDE RECORDS SUMMARY | 2024-06-04 07:00 | XMS_ITS | Encounter Summary ---
Author Organization [facility] Address [address] [place] [address] Care Team Providers Care Database Development Project Manager Name Role Phone Mellissa Jiménez MD Primary Care Provider [phone] Ronel Thornton DO Primary Care Provider [phone] Daphnie Gillespie MD Unavailable Juliana Peralta PEANUT SEPARATOR Unavailable [phone] Juliana Peralta PEANUT SEPARATOR Unavailable [phone] Ronel Thornton DO Unavailable Kenyatta Taylor RN Unavailable [phone] Tiago Lew Unavailable [phone] Reason for Visit * Reason Onset Date Comments Forms/questionnaires 01/23/2021 Encounter Details Date Type Department Care Team (Late st Contact Info) Description 01/23/2021 Telephone [facility] Pediatrics - Surgery [address] [place] [address] Daphnie Gillespie MD [address] [place] [phone] Forms/questionnaires Social History Tobacco Use Types Packs/Day Years [...] of Binge Drinking Not on file 12/13 Comments No Sex and Gender Information Value Date Recorded Sex Assigned at Not on file Legal Sex Female 6:25 PM PATHOLOGIST ASSISTANT Gender Identity Not on file Sexual Orientation Not on file COVID-19 Exposure Response Date Recorded In the last month, have you been in contact with someone who was confirmed or suspected to have Coronavirus / COVID-19? No / Unsure 01/24/2021 11:47 AM PATHOLOGIST ASSISTANT documented as of this encounter Functional Status * Is person deaf or have serious hearing difficulty? Answer Date of Assessment Author No 01/06/2021 10:42 AM Vashti Rodríguez RN * Is person blind or have serious difficulty seeing? Answer Date of Assessment Author No 01/06/2021 10:42 AM Vashti Rodríguez RN * Does person have serious difficulty walking/climbing stairs? Answer Date of Assessment Author No 01/06/2021 10:42 AM Vashti Rodríguez RN * Does person have difficulty dressing/bathing? Answer Date of Assessment Author No 01/06/2021 10:42 AM Vashti Rodríguez RN * Does person have difficulty doing errands alone? Answer Date of Assessment Author No 01/06/2021 10:42 AM Vashti Rodríguez RN documented as of this encounter Mental Status * Does person have difficulty concentrating/remembering/making decisions? Answer Entry Date Author No 01/06/2021 10:42 AM Vashti Rodríguez RN documented in this encounter Miscellaneous Notes * Telephone Encounter - Madelyn Betancur - 01/23/2021 4:35 PM CST Kenyatta stated she faxed a medical form last week to be filled out by the doctor for in patient facility and wanted to know if it was received. OLOGIST ASSISTANT documented in this encounter Plan of Treatment Upcoming Encounters Date Type Department Care Team (Late st Contact Info) Description 06/08/2024 1:20 PM CDT Office Visit [address] [address] Ronel Thornton DO [address] [place] [address] 01/20/2025 8:20 AM PATHOLOGIST ASSISTANT Office Visit [address] [address] Ronel Thornton DO [address] [place] [address] documented as of this encounter Visit Diagnoses Not on filedocumented in this encounter Additional Health Concerns Infection Onset Date Last Indicated Resolved Time COVID-19 Under Investigation 08/10/2021 08/10/2021 08/10/2021 2:59 AM CDT documented as of this encounter Care Teams Database Development Project Manager Relationship Specialty Start Date End Date Mellissa Jiménez MD [address] [place] [address] [place] [address] PCP - General Family Medicine 04/25/20 03/17/23 Ronel Thornton DO [address] [place], [place] [address] [address] PCP - General Family Medicine 03/18/23 Daphnie Gillespie MD [facility] [place] [address] PCP - Attributed-[facility] 02/11/23 04/11/23 Ronel Thornton DO [address] [place] [address] [id number] PCP - Attributed[facility] ST[facility] 04/12/23 Juliana Peralta MSW Outpatient Shuttler Car Care Management 04/24/2304/11 Juliana Peralta MSW Outpatient Shuttler Car Care Management 04/30/2304/12 Kenyatta Taylor RN [address] [address] Bridge PainterHearing Aid Consultant 09/02/23 10/04/23 Tiago Lew Care Coordination Specialist Care Management 09/26/23 11/10/23 documented as of this encounter
--- OUTSIDE RECORDS SUMMARY | 2024-06-04 07:00 | XMS_ITS | Clinical Summary ---
Author Organization [facility] Address [address] [place] [address] Care Team Providers Care Complaint Analyst Name Role Phone Ronel Thornton DO Primary Care Provider [phone] Ronel Thornton DO Unavailable [phone] Source Comments [facility],non-owned Affiliates and Associated Physician Practices is amultiple site organization consisting of ambulatory clinics and hospital sitesin [place], [place], [place] and [place]. This disclosure is being madepursuant to the Care Everywhere program and may not contain all information available regarding this patient. Last updated 17.[facility] Allergies No known active allergies Medications * This document contains information received from the source organization and may not represent a complete record from that organization. * Be aware that medications may not be up to date on this document. Alwaysverify current medications with the patient. ALPRAZolam (Xanax) 0.5 MG tablet Take 1 (one) tablet by mouth at bedtime 025 Active prochlorperaz ine (Compazine) 5 MG tablet Take 1 (one) tablet by mouth every 8 hours as needed for Nausea/Vomiting 30 tablet 025 Active OLANZapine (ZyPREXA) 5 MG tablet Take 1 (one) tablet by mouth at bedtime 90 tablet 025 Active escitalopram (Lexapro) 5 MG tablet Take 1 (one) tablet by mouth once daily 30 tablet 1 025 Active hydrOXYzine HCl (Atarax) 50 MG tabletIndicat ions:Anxiety Take 1 (one) tablet by mouth every 6 hours as needed Reasons: Feeling Anxious 40 tablet 024 2023 Discontinued(N o Pharm No AVS) melatonin 3 MG tabletIndicat ions:Insomnia Take 1 (one) tablet by mouth nightly as needed for Insomnia Reasons: Trouble Sleeping 30 tablet 024 2023 Discontinued(N o Pharm No AVS) pantoprazole EC (Protonix) 40 MG tabletIndicat ions:Gastroes ophageal Reflux Disease Take 1 (one) tablet by mouth once daily Reasons: Gastroesophageal Reflux Disease 30 tablet 024 2023 Discontinued(N o Pharm No AVS) mirtazapine (Remeron) 15 MG tabletIndicat ions:Major Depressive Disorder Take 1 (one) tablet by mouth at bedtime Reasons: Major Depressive Disorder 30 tablet 024 2023 Discontinued(N o Pharm No AVS) gabapentin (Neurontin) 400 MG capsuleIndica tions:Mood Disorder Take 1 (one) capsule by mouth 2 times daily Reasons: Mood Disorder 60 capsule 024 2023 Discontinued(N o Pharm No AVS) lamoTRIgine XR 24hr (LaMICtal XR) 250 MG tablet Take 1 (one) tablet by mouth once daily 90 tablet 2 024 2023 Discontinued(N o Pharm No AVS) OLANZapine (ZyPREXA) 2.5 MG tablet Take 1 (one) tablet by mouth once daily 30 tablet 025 2024 Discontinued Active Problems Problem Noted Date Diagnosed Date [...] 01/18/2020 Assessment & Plan (01/08/2021 3:06 PM MACHINE WHITENER): Assessment: Major depressive disorder, generalized anxiety disorder and substance abuse disorder. Plan: - klonopin and neurontin are all habit forming, concerns they are addictive, plan to discuss group home goal of weaning as outpatient - must stop all alcohol and MJ - Increased Prozac to 40 - Increased zyprexa to 15 - Melatonin 6mg QHS for sleep - avoid narcotics - taper off zyprexa as outpatient per psychiatry recs Assessment & Plan (01/07/2021 4:50 PM MACHINE WHITENER): Assessment: Major depressive disorder, generalized anxiety disorder and substance abuse disorder. Plan: - klonopin and neurontin are all habit forming, concerns they are addictive, plan to discuss group home goal of weaning as outpatient - must stop all alcohol and MJ - Increased Prozac to 40 - Increased zyprexa to 15 - Melatonin 6mg QHS for sleep - avoid narcotics - taper off zyprexa as outpatient per psychiatry recs Assessment & Plan (01/06/2021 5:55 PM MACHINE WHITENER): Assessment: Major depressive disorder, generalized anxiety disorder and substance abuse disorder. Plan: - klonopin and neurontin are all habit forming, concerns they are addictive, plan to discuss group home goal of weaning as outpatient - must [...] slowly. Assessment & Plan (04/07/2020 6:45 PM MACHINE WHITENER): Assessment: Hx of major depressive disorder and generalized anxiety disorder. Pt has been seen by psychiatry and psychology, now improved since starting/optimizing zyprexa QHS, clonazepam TID, and prozac QD. Plan: - Prozac 30 mg QD (dose of 30 mg started on 03/09/20, Prozac initially began 02/07) - Zyprexa 5 mg QHS - Klonopin 0.5mg TID Assessment & Plan (04/06/2020 3:54 PM MACHINE WHITENER): Assessment: Hx of major depressive disorder and [...] TID Assessment & Plan (04/05/2020 10:49 AM MACHINE WHITENER): Assessment: Hx of major depressive disorder and [...] TID Assessment & Plan (04/04/2020 10:23 AM MACHINE WHITENER): Assessment: Hx of major depressive disorder and [...] TID Assessment & Plan (04/03/2020 6:30 PM MACHINE WHITENER): Assessment: Hx of major depressive disorder and [...] TID Assessment & Plan (04/01/2020 11:15 AM MACHINE WHITENER): Assessment: Hx of major depressive disorder and [...] dose) Assessment & Plan (03/31/2020 10:07 AM MACHINE WHITENER): Assessment: Hx of major depressive disorder and [...] dose) Assessment & Plan (03/30/2020 2:24 PM MACHINE WHITENER): Assessment: Hx of major depressive disorder and [...] dose) Assessment & Plan (03/29/2020 6:50 AM MACHINE WHITENER): Assessment: Hx of major depressive disorder and [...] dose) Assessment & Plan (03/27/2020 10:30 AM MACHINE WHITENER): Assessment: Hx of major depressive disorder and generalized anxiety disorder. Pt seen by psychiatry on admission and was started elavil, but continued to have anxiety. Elavil was discontinued due to persistent tachycardia and hypotension. [facility] was [facility] [...] dose) Assessment & Plan (03/26/2020 11:15 AM MACHINE WHITENER): Assessment: Hx of major depressive disorder and [...] dose) Assessment & Plan (03/25/2020 8:58 AM MACHINE WHITENER): Assessment: Hx of major depressive disorder and [...] dose) Assessment & Plan (03/24/2020 6:44 AM MACHINE WHITENER): Assessment: Hx of major depressive disorder and [...] dose) Assessment & Plan (03/23/2020 12:19 PM MACHINE WHITENER): Assessment: Hx of major depressive disorder and [...] dose) Assessment & Plan (03/22/2020 10:47 AM MACHINE WHITENER): Assessment: Hx of major depressive disorder and generalized anxiety disorder. Pt seen by psychiatry on admission and was started elavil, but continued to have anxiety. Elavil was discontinued due to persistent tachycardia and hypotension. [facility] she was started on zyprexa [...] recommendations) Assessment & Plan (03/21/2020 3:11 PM MACHINE WHITENER): Assessment: Hx of major depressive disorder and [...] mg. Assessment & Plan (03/20/2020 10:31 AM MACHINE WHITENER): Assessment: Hx of major depressive disorder and [...] 03/21. Assessment & Plan (03/19/2020 10:38 AM MACHINE WHITENER): Assessment: Hx of major depressive disorder and [...] withdrawal Assessment & Plan (03/18/2020 12:58 PM MACHINE WHITENER): Assessment: Hx of major depressive disorder and [...] anxiety Assessment & Plan (03/17/2020 10:33 AM MACHINE WHITENER): Assessment: Hx of major depressive disorder and [...] appreciated Assessment & Plan (03/16/2020 2:24 PM MACHINE WHITENER): Assessment: Hx of major depressive disorder and [...] recommendations Assessment & Plan (03/15/2020 11:11 AM MACHINE WHITENER): Assessment: Hx of major depressive disorder and [...] anxiety Assessment & Plan (03/14/2020 6:28 AM MACHINE WHITENER): Assessment: Hx of major depressive disorder and [...] anxiety Assessment & Plan (03/13/2020 6:28 AM MACHINE WHITENER): Assessment: Hx of major depressive disorder and [...] anxiety Assessment & Plan (03/12/2020 11:35 AM MACHINE WHITENER): Assessment: Hx of major depressive disorder and [...] anxiety Assessment & Plan (03/11/2020 12:43 PM MACHINE WHITENER): Assessment: Hx of major depressive disorder and [...] anxiety Assessment & Plan (03/10/2020 6:11 AM MACHINE WHITENER): Assessment: Hx of major depressive disorder and [...] anxiety Assessment & Plan (03/09/2020 6:24 AM MACHINE WHITENER): Assessment: Hx of major depressive disorder and [...] anxiety Assessment & Plan (03/08/2020 10:51 AM MACHINE WHITENER): Assessment: Hx of major depressive disorder and [...] anxiety Assessment & Plan (03/07/2020 9:15 AM MACHINE WHITENER): Assessment: Hx of major depressive disorder and [...] -Develop daily schedule with assistance of child support specialistBenji Assessment & Plan (03/06/2020 10:09 AM MACHINE WHITENER): Assessment: Hx of major depressive disorder and [...] anxiety Assessment & Plan (03/05/2020 9:56 AM MACHINE WHITENER): Assessment: Hx of major depressive disorder and [...] anxiety Assessment & Plan (03/04/2020 12:58 PM MACHINE WHITENER): Assessment: Hx of major depressive disorder and [...] anxiety Assessment & Plan (03/03/2020 3:16 PM MACHINE WHITENER): Assessment: Hx of major depressive disorder and [...] anxiety Assessment & Plan (03/01/2020 12:04 PM MACHINE WHITENER): Assessment: Hx of major depressive disorder and [...] anxiety Assessment & Plan (02/29/2020 12:53 PM MACHINE WHITENER): Assessment: Hx of major depressive disorder and [...] anxiety Assessment & Plan (02/28/2020 9:22 AM MACHINE WHITENER): Assessment: Hx of major depressive disorder and [...] anxiety Assessment & Plan (02/27/2020 10:27 AM MACHINE WHITENER): Assessment: Hx of major depressive disorder and [...] negative Assessment & Plan (02/26/2020 11:12 AM MACHINE WHITENER): Assessment: Hx of major depressive disorder and [...] pending Assessment & Plan (02/25/2020 9:33 AM MACHINE WHITENER): Assessment: Hx of major depressive disorder and [...] pending Assessment & Plan (02/24/2020 6:51 AM MACHINE WHITENER): Assessment: Hx of major depressive disorder and [...] pending Assessment & Plan (02/23/2020 10:19 AM MACHINE WHITENER): Assessment: Hx of major depressive disorder and [...] pending Assessment & Plan (02/22/2020 11:07 AM MACHINE WHITENER): Assessment: Hx of major depressive disorder and [...] QHS Assessment & Plan (02/21/2020 10:54 AM MACHINE WHITENER): Assessment: History of major depressive disorder and [...] tablet Assessment & Plan (02/20/2020 11:33 AM MACHINE WHITENER): Assessment: History of major depressive disorder and [...] tablet Assessment & Plan (02/19/2020 3:05 PM MACHINE WHITENER): Assessment: History of major depressive disorder and [...] tablet Assessment & Plan (02/18/2020 10:13 AM MACHINE WHITENER): Assessment: History of major depressive disorder and [...] tablet Assessment & Plan (02/17/2020 12:26 PM MACHINE WHITENER): Assessment: History of major depressive disorder and [...] tablet Assessment & Plan (02/16/2020 1:14 PM MACHINE WHITENER): Assessment: History of major depressive disorder and [...] tablet Assessment & Plan (02/15/2020 12:31 PM MACHINE WHITENER): Assessment: History of major depressive disorder and [...] tablet Assessment & Plan (02/14/2020 2:24 PM MACHINE WHITENER): Assessment: History of major depressive disorder and [...] tablet Assessment & Plan (02/13/2020 12:00 PM MACHINE WHITENER): Assessment: History of major depressive disorder and [...] tablet Assessment & Plan (02/12/2020 11:20 AM MACHINE WHITENER): Assessment: History of major depressive disorder and [...] tablet Assessment & Plan (02/11/2020 11:54 AM MACHINE WHITENER): Assessment: History of major depressive disorder and [...] tablet Assessment & Plan (02/10/2020 12:09 PM MACHINE WHITENER): Assessment: History of major depressive disorder and [...] tablet Assessment & Plan (02/09/2020 11:50 AM MACHINE WHITENER): Assessment: History of major depressive disorder and [...] atarax Assessment & Plan (02/08/2020 12:54 PM MACHINE WHITENER): Assessment: History of major depressive disorder and [...] atarax Assessment & Plan (02/07/2020 11:47 AM MACHINE WHITENER): Assessment: History of major depressive disorder and [...] atarax Assessment & Plan (02/06/2020 8:12 AM MACHINE WHITENER): Assessment: History of major depressive disorder and [...] atarax Assessment & Plan (02/05/2020 9:12 AM MACHINE WHITENER): Assessment: History of major depressive disorder and [...] atarax Assessment & Plan (02/04/2020 12:43 PM MACHINE WHITENER): Assessment: History of major depressive disorder and [...] atarax Assessment & Plan (02/03/2020 2:28 PM MACHINE WHITENER): Assessment: History of major depressive disorder and [...] atarax Assessment & Plan (02/02/2020 4:02 PM MACHINE WHITENER): Assessment: History of major depressive disorder and [...] atarax Assessment & Plan (02/01/2020 12:12 PM MACHINE WHITENER): Assessment: History of major depressive disorder and [...] atarax Assessment & Plan (01/31/2020 1:04 PM MACHINE WHITENER): Assessment: History of major depressive disorder and [...] atarax Assessment & Plan (01/30/2020 10:30 AM MACHINE WHITENER): Assessment: History of major depressive disorder and [...] atarax Assessment & Plan (01/29/2020 9:40 PM MACHINE WHITENER): Assessment: History of major depressive disorder and [...] atarax Assessment & Plan (01/28/2020 11:59 AM MACHINE WHITENER): Assessment: History of major depressive disorder and [...] lunch Assessment & Plan (01/27/2020 3:57 PM MACHINE WHITENER): Assessment: History of major depressive disorder and [...] lunch Assessment & Plan (01/26/2020 6:01 PM MACHINE WHITENER): Assessment: History of major depressive disorder and [...] atarax Assessment & Plan (01/25/2020 2:56 PM MACHINE WHITENER): Assessment: History of major depressive disorder and [...] PO. Assessment & Plan (01/24/2020 8:11 AM MACHINE WHITENER): Assessment: History of major depressive disorder and [...] (02/22/20) Assessment & Plan (01/23/2020 7:09 AM MACHINE WHITENER): Assessment: History of major depressive disorder and [...] (02/22/20) Assessment & Plan (01/22/2020 7:52 AM MACHINE WHITENER): Assessment: History of major depressive disorder and [...] (02/22/20) Assessment & Plan (01/21/2020 7:40 AM MACHINE WHITENER): Assessment: History of major depressive disorder and [...] (02/22/20) Assessment & Plan (01/20/2020 7:36 AM MACHINE WHITENER): Assessment: History of major depressive disorder and [...] (02/22/20) Assessment & Plan (01/19/2020 7:22 AM MACHINE WHITENER): Assessment: History of major depressive disorder and [...] (02/22/20) Assessment & Plan (01/18/2020 4:35 PM MACHINE WHITENER): Assessment: History of major depressive disorder and [...] range. Assessment & Plan (04/08/2020 1:31 PM MACHINE WHITENER): Assessment: 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, SMA [...] PT Assessment & Plan (04/07/2020 2:52 PM MACHINE WHITENER): Assessment: 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, SMA [...] PT Assessment & Plan (04/07/2020 6:44 PM MACHINE WHITENER): Assessment: Marlee is a 19 year old [...] follow up with adolescent medicine on 04/18, [facility] on 05/02, and and scheduling Psych intake visit SOCIAL: - General medicine team spoke with and updated mother on 04/06 LABS: daily urine spec gravity, BMP/Mg/Phos Q / Assessment & Plan (04/06/2020 6:45 PM MACHINE WHITENER): Assessment: Marlee is a 19 year old [...] / Assessment & Plan (04/05/2020 3:22 PM MACHINE WHITENER): Assessment: 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, SMA [...] PT Assessment & Plan (04/05/2020 10:49 AM MACHINE WHITENER): Assessment: Marlee is a 19 year old [...] T/Th Assessment & Plan (04/04/2020 3:59 PM MACHINE WHITENER): Assessment: 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, SMA [...] daily Assessment & Plan (04/04/2020 10:21 AM MACHINE WHITENER): Assessment: Marlee is a 19 year old [...] / Assessment & Plan (04/03/2020 12:59 PM MACHINE WHITENER): Assessment: Marlee is a 19 year old [...] daily Assessment & Plan (04/02/2020 4:19 PM MACHINE WHITENER): Assessment: Marlee is a 19 year old [...] daily Assessment & Plan (04/01/2020 11:55 AM MACHINE WHITENER): Assessment: 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 and [...] daily Assessment & Plan (04/01/2020 11:15 AM MACHINE WHITENER): Assessment: Marlee is a 19 year old [...] daily Assessment & Plan (03/31/2020 12:05 PM MACHINE WHITENER): Assessment: 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 and [...] daily Assessment & Plan (03/31/2020 10:06 AM MACHINE WHITENER): Assessment: Marlee is a 19 year old [...] daily Assessment & Plan (03/30/2020 2:24 PM MACHINE WHITENER): Assessment: Marlee is a 19 year old [...] Jevity 1.2 at 60ml/hr x 10 hours (2000 - 0600) - Meals: 300 kcal at [...] daily Assessment & Plan (03/29/2020 10:40 AM MACHINE WHITENER): Assessment: Marlee is a 19 year old [...] daily Assessment & Plan (03/28/2020 12:29 PM MACHINE WHITENER): Assessment: Marlee is a 19 year old [...] allowed in room. May have water from [employer] cup. Oral fluids limited to 250 mL [...] daily Assessment & Plan (03/27/2020 10:34 AM MACHINE WHITENER): Assessment: Marlee is a 19 year old [...] night 03/27: Increase to 50 mL/hr tonight. [facility] is aware of increase but did [...] daily Assessment & Plan (03/26/2020 11:20 AM MACHINE WHITENER): Assessment: Marlee is a 19 year old [...] allowed in room. May have water from [employer] cup. oral fluids limited to 250 mL [...] daily Assessment & Plan (03/25/2020 12:30 PM MACHINE WHITENER): Assessment: Marlee is a 19 year old [...] allowed in room. May have water from [facility] cup. - May take shower while sitting [...] daily Assessment & Plan (03/24/2020 5:02 PM MACHINE WHITENER): Assessment: 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 and [...] anxiety Assessment & Plan (03/24/2020 11:19 AM MACHINE WHITENER): Assessment: Marlee is a 19 year old [...] daily Assessment & Plan (03/23/2020 12:20 PM MACHINE WHITENER): Assessment: Marlee is a 19 year old [...] daily Assessment & Plan (03/22/2020 12:20 PM MACHINE WHITENER): Assessment: Marlee is a 19 year old [...] daily Assessment & Plan (03/21/2020 3:10 PM MACHINE WHITENER): Assessment: Marlee is a 19 year old [...] Trigylcerides 3 times weekly (Tu, Th, Sun) - Okay to space morning meds [...] 03/15/2020. Assessment & Plan (03/20/2020 10:32 AM MACHINE WHITENER): Assessment: Marlee is a 19 year old [...] Trigylcerides 3 times weekly (Tues, Th, Sun) - Okay to space morning meds [...] 03/15/2020. Assessment & Plan (03/19/2020 10:37 AM MACHINE WHITENER): Assessment: Marlee is a 19 year old [...] 03/15/2020. Assessment & Plan (03/18/2020 1:00 PM MACHINE WHITENER): Assessment: Marlee is a 19 year old [...] her nausea; MRI was normal. Pt started KITYT protocol on 03/16 (dinner time) with TPN. [...] 03/15/2020. Assessment & Plan (03/17/2020 10:36 AM MACHINE WHITENER): Assessment: Marlee is a 19 year old [...] 03/15/2020. Assessment & Plan (03/16/2020 2:10 PM MACHINE WHITENER): Assessment: Marlee is a 19 year old [...] 03/15/2020. Assessment & Plan (03/15/2020 11:10 AM MACHINE WHITENER): Assessment: Marlee is a 19 year old [...] 03/15/2020 Assessment & Plan (03/14/2020 9:53 AM MACHINE WHITENER): Assessment: Marlee is a 19 year old [...] 03/15/2020 Assessment & Plan (03/13/2020 9:39 AM MACHINE WHITENER): Assessment: Marlee is a 19 year old [...] week Assessment & Plan (03/12/2020 11:35 AM MACHINE WHITENER): Assessment: Marlee is a 19 year old [...] week Assessment & Plan (03/11/2020 12:43 PM MACHINE WHITENER): Assessment: Marlee is a 19 year old [...] week Assessment & Plan (03/10/2020 9:12 AM MACHINE WHITENER): Assessment: Marlee is a 19 year old [...] in Assessment & Plan (03/09/2020 10:22 AM MACHINE WHITENER): Assessment: Marlee is a 19 year old [...] in Assessment & Plan (03/08/2020 10:52 AM MACHINE WHITENER): Assessment: Marlee is a 19 year old [...] in Assessment & Plan (03/07/2020 9:18 AM MACHINE WHITENER): Assessment: Marlee is a 19 year old [...] in Assessment & Plan (03/06/2020 10:09 AM MACHINE WHITENER): Assessment: Marlee is a 19 year old [...] in Assessment & Plan (03/05/2020 9:56 AM MACHINE WHITENER): Assessment: Marlee is a 19 year old [...] in Assessment & Plan (03/04/2020 12:58 PM MACHINE WHITENER): Assessment: Marlee is a 19 year old [...] Trigylcerides 3 times weekly (Tues, Th, Sun) ID: No concerns for infection [...] A/P Assessment & Plan (03/03/2020 3:15 PM MACHINE WHITENER): Assessment: Marlee is a 19 year old [...] A/P Assessment & Plan (03/02/2020 12:06 PM MACHINE WHITENER): Assessment: Marlee is a 19 year old [...] A/P Assessment & Plan (03/01/2020 12:05 PM MACHINE WHITENER): Assessment: Marlee is a 19 year old [...] A/P Assessment & Plan (02/29/2020 12:52 PM MACHINE WHITENER): Assessment: Marlee is a 19 year old [...] A/P Assessment & Plan (02/28/2020 9:12 AM MACHINE WHITENER): Assessment: Marlee is a 19 year old [...] A/P Assessment & Plan (02/27/2020 10:03 AM MACHINE WHITENER): Assessment: Marlee is a 19 year old [...] A/P Assessment & Plan (02/26/2020 11:12 AM MACHINE WHITENER): Assessment: Marlee is a 19 year old [...] A/P Assessment & Plan (02/25/2020 9:32 AM MACHINE WHITENER): Assessment: Marlee is a 19 year old [...] A/P Assessment & Plan (02/24/2020 10:42 AM MACHINE WHITENER): Assessment: Marlee is a 19 year old [...] A/P Assessment & Plan (02/23/2020 10:22 AM MACHINE WHITENER): Assessment: Marlee is a 19 year old [...] A/P Assessment & Plan (02/22/2020 11:25 AM MACHINE WHITENER): Assessment: Marlee is a 19 year old [...] A/P Assessment & Plan (02/21/2020 10:54 AM MACHINE WHITENER): Assessment: Marlee is a 19 year old [...] A/P Assessment & Plan (02/20/2020 11:31 AM MACHINE WHITENER): Assessment: Marlee is a 19 year old [...] A/P Assessment & Plan (02/19/2020 3:04 PM MACHINE WHITENER): Assessment: Marlee is a 19 year old [...] TPN. Assessment & Plan (02/18/2020 10:14 AM MACHINE WHITENER): Assessment: Marlee is a 19 year old [...] Sat) Assessment & Plan (02/17/2020 12:30 PM MACHINE WHITENER): Assessment: Marlee is a 19 year old [...] pending Assessment & Plan (02/16/2020 2:29 PM MACHINE WHITENER): Assessment: Marlee is a 19 year old [...] pending Assessment & Plan (02/15/2020 12:33 PM MACHINE WHITENER): Assessment: Marlee is a 19 year old [...] pending Assessment & Plan (02/14/2020 2:23 PM MACHINE WHITENER): Assessment: Marlee is a 19 year old [...] pending Assessment & Plan (02/13/2020 11:59 AM MACHINE WHITENER): Assessment: Marlee is a 19 year old [...] pending Assessment & Plan (02/12/2020 11:49 AM MACHINE WHITENER): Assessment: Marlee is a 19 year old [...] recs Assessment & Plan (02/11/2020 11:56 AM MACHINE WHITENER): Assessment: Marlee is a 19 year old [...] recs Assessment & Plan (02/10/2020 12:11 PM MACHINE WHITENER): Assessment: Marlee is a 19 year old [...] SG) Assessment & Plan (02/09/2020 11:49 AM MACHINE WHITENER): Assessment: Marlee is a 19 year old [...] SG) Assessment & Plan (02/08/2020 12:54 PM MACHINE WHITENER): Assessment: Marlee is a 19 year old [...] recs. Assessment & Plan (02/07/2020 12:06 PM MACHINE WHITENER): Assessment: Marlee is a 19 year old [...] SG) Assessment & Plan (02/06/2020 8:12 AM MACHINE WHITENER): Assessment: Marlee is a 19 year old [...] SG) Assessment & Plan (02/05/2020 9:12 AM MACHINE WHITENER): Assessment: Marlee is a 19 year old [...] TG) Assessment & Plan (02/04/2020 12:52 PM MACHINE WHITENER): Assessment: Marlee is a 19 year old [...] TG) Assessment & Plan (02/03/2020 2:38 PM MACHINE WHITENER): Assessment: Marlee is a 19 year old [...] TG) Assessment & Plan (02/02/2020 4:02 PM MACHINE WHITENER): Assessment: Marlee is a 19 year old [...] QOD Assessment & Plan (02/01/2020 12:08 PM MACHINE WHITENER): Assessment: Marlee is a 19 year old [...] RBCs. Assessment & Plan (01/31/2020 1:05 PM MACHINE WHITENER): Assessment: Marlee is a 19 year old [...] hematuria Assessment & Plan (01/30/2020 10:30 AM MACHINE WHITENER): Assessment: Marlee is a 19 year old [...] 10.2 Assessment & Plan (01/29/2020 9:39 PM MACHINE WHITENER): Assessment: Marlee is a 19 year old [...] syndrome Assessment & Plan (01/28/2020 11:59 AM MACHINE WHITENER): Assessment: Marlee is a 19 year old [...] QOD Assessment & Plan (01/27/2020 3:59 PM MACHINE WHITENER): Assessment: Marlee is a 19 year old [...] QOD Assessment & Plan (01/26/2020 5:14 PM MACHINE WHITENER): Assessment: Marlee is a 19 year old [...] QOD Assessment & Plan (01/25/2020 2:58 PM MACHINE WHITENER): Assessment: Marlee is a 19 year old [...] QOD Assessment & Plan (01/24/2020 11:54 AM MACHINE WHITENER): Assessment: Marlee is a 19 year old [...] orthostatics Assessment & Plan (01/23/2020 7:09 AM MACHINE WHITENER): Assessment: Marlee is a 19 year old [...] orthostatics Assessment & Plan (01/22/2020 4:25 PM MACHINE WHITENER): Assessment: Marlee is a 19 year old [...] orthostatics Assessment & Plan (01/21/2020 8:15 AM MACHINE WHITENER): Assessment: Marlee Chavez is a 19 year [...] orthostatics Assessment & Plan (01/20/2020 7:36 AM MACHINE WHITENER): Assessment: Marlee Chavez is a 19 year [...] orthostatics Assessment & Plan (01/19/2020 7:20 AM MACHINE WHITENER): Assessment: Marlee Chavze is a 19 year old with history [...] orthostatics Assessment & Plan (01/18/2020 4:30 PM MACHINE WHITENER): Assessment: Marlee Chavez is a 19 year [...] consult Assessment & Plan (03/27/2020 10:35 AM MACHINE WHITENER): Assessment: Marlee is admitted on ED Protocol for severe malnutrition. Following feeding plan per [facility]olescent [facility] and Nutrition. Plan: - see plan under ARFID problem Assessment & Plan (03/26/2020 11:20 AM MACHINE WHITENER): Assessment: Marlee is admitted on ED Protocol for severe malnutrition. Following feeding plan per Adolescent Medicine and Nutrition. Plan: - see plan under ARFID problem Assessment & Plan (03/24/2020 11:19 AM MACHINE WHITENER): Assessment: Marlee is admitted on ED Protocol for severe malnutrition. Following feeding plan per Adolescent Medicine and Nutrition. Plan: - see plan under ARFID problem Assessment & Plan (03/23/2020 9:00 AM MACHINE WHITENER): Assessment: Marlee is admitted on ED Protocol for severe malnutrition. Following feeding plan per Adolescent Medicine and Nutrition. Plan: - see plan under ARFID problem Assessment & Plan (03/22/2020 12:21 PM MACHINE WHITENER): Assessment: Marlee is admitted on ED Protocol for severe malnutrition. Following feeding plan per Adolescent Medicine and Nutrition. Plan: - see plan under ARFID problem Assessment & Plan (03/17/2020 4:26 PM MACHINE WHITENER): Assessment: 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 and [...] anxiety Assessment & Plan (03/15/2020 11:10 AM MACHINE WHITENER): Assessment: Marlee is admitted on ED Protocol for severe malnutrition. Following feeding plan per Adolescent Medicine and Nutrition. Plan: - see plan under ARFID problem Assessment & Plan (03/10/2020 11:17 AM MACHINE WHITENER): Assessment: 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 and [...] needed Assessment & Plan (03/06/2020 10:09 AM MACHINE WHITENER): Assessment: Marlee is admitted on ED Protocol for severe malnutrition. Following feeding plan per Adolescent Medicine and Nutrition. Plan: - see plan under ARFID problem Assessment & Plan (03/04/2020 1:41 PM MACHINE WHITENER): Assessment: Marlee is admitted on ED Protocol for severe malnutrition. Following feeding plan per Adolescent Medicine and Nutrition. Plan: - see plan under ARFID problem Assessment & Plan (03/04/2020 11:50 AM MACHINE WHITENER): Assessment: Marlee is admitted on ED Protocol for severe malnutrition. Following feeding plan per Adolescent Medicine and Nutrition. Plan: - see plan under ARFID problem Assessment & Plan (03/03/2020 3:53 PM MACHINE WHITENER): Assessment: 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 and [...] dad. Assessment & Plan (02/27/2020 9:57 AM MACHINE WHITENER): Assessment: Marlee is admitted on ED Protocol for severe malnutrition. Following feeding plan per Adolescent Medicine and Nutrition. Plan: - see plan under ARFID problem Assessment & Plan (02/26/2020 9:59 AM MACHINE WHITENER): Assessment: 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 and [...] plan. Assessment & Plan (02/25/2020 5:48 PM MACHINE WHITENER): Assessment: 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 and [...] plan. Assessment & Plan (02/18/2020 4:54 PM MACHINE WHITENER): Assessment: 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 and [...] daily Assessment & Plan (02/11/2020 11:47 AM MACHINE WHITENER): Assessment: 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 and [...] BID Assessment & Plan (02/09/2020 11:50 AM MACHINE WHITENER): Assessment: Marlee is admitted on ED Protocol for severe malnutrition. Following feeding plan per Adolescent Medicine and Nutrition. Plan: - see plan under ARFID problem Assessment & Plan (02/07/2020 11:47 AM MACHINE WHITENER): Assessment: Marlee is admitted on ED Protocol for severe malnutrition. Following feeding plan per Adolescent Medicine and Nutrition. Plan: - see plan under ARFID problem Assessment & Plan (02/06/2020 8:12 AM MACHINE WHITENER): Assessment: Marlee is admitted on ED Protocol for severe malnutrition. Following feeding plan per Adolescent Medicine and Nutrition. Plan: - see plan under ARFID problem Assessment & Plan (02/05/2020 9:01 AM MACHINE WHITENER): Assessment: Marlee is admitted on ED Protocol for severe malnutrition. Following feeding plan per Adolescent Medicine and Nutrition. Plan: - see plan under ARFID problem Assessment & Plan (02/04/2020 12:34 PM MACHINE WHITENER): Assessment: Marlee is admitted on ED Protocol for severe malnutrition. Following feeding plan per Adolescent Medicine and Nutrition. Plan: - see plan under ARFID problem Assessment & Plan (02/03/2020 2:28 PM MACHINE WHITENER): Assessment: Marlee is admitted on ED Protocol for severe malnutrition. Following feeding plan per Adolescent Medicine and Nutrition. Plan: - see plan under ARFID problem Assessment & Plan (02/02/2020 3:57 PM MACHINE WHITENER): Assessment: Marlee is admitted on ED Protocol for severe malnutrition. Following feeding plan per Adolescent Medicine and Nutrition. Plan: - see plan under ARFID problem Assessment & Plan (02/01/2020 12:10 PM MACHINE WHITENER): Assessment: Marlee is admitted on ED Protocol for severe malnutrition. Following feeding plan per Adolescent Medicine and Nutrition. Plan: - see plan under ARFID problem Assessment & Plan (01/31/2020 1:04 PM MACHINE WHITENER): Assessment: Marlee is admitted on ED Protocol for severe malnutrition. Following feeding plan per Adolescent Medicine and Nutrition. Plan: - see plan under ARFID problem Assessment & Plan (01/30/2020 10:28 AM MACHINE WHITENER): Assessment: Marlee is admitted on ED Protocol for severe malnutrition. Following feeding plan per Adolescent Medicine and Nutrition. Plan: - see plan under ARFID problem Assessment & Plan (01/28/2020 4:29 PM MACHINE WHITENER): Assessment: 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 and [...] BID Assessment & Plan (01/24/2020 11:54 AM MACHINE WHITENER): Assessment: Marlee is admitted on ED Protocol for severe malnutrition. Following feeding plan per Adolescent Medicine and Nutrition. Plan: - see plan under ARFID problem Assessment & Plan (01/23/2020 7:09 AM MACHINE WHITENER): Assessment: Marlee is admitted on ED Protocol for severe malnutrition. Following feeding plan per Adolescent Medicine and Nutrition. Plan: - see plan under ARFID problem Assessment & Plan (01/22/2020 9:48 AM MACHINE WHITENER): Assessment: 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 and [...] () Assessment & Plan (01/22/2020 7:52 AM MACHINE WHITENER): Assessment: Marlee is admitted on ED Protocol for severe malnutrition. Following feeding plan per Adolescent Medicine and Nutrition. Plan: - see plan under ARFID problem Assessment & Plan (01/21/2020 10:33 AM MACHINE WHITENER): Assessment: 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 and [...] () Assessment & Plan (01/21/2020 7:40 AM MACHINE WHITENER): Assessment: Marlee is admitted on ED Protocol for severe malnutrition. Following feeding plan per Adolescent Medicine and Nutrition. Plan: - see plan under ARFID problem Assessment & Plan (01/20/2020 7:36 AM MACHINE WHITENER): Assessment: Marlee is admitted on ED Protocol for severe malnutrition. Following feeding plan per Adolescent Medicine and Nutrition. Plan: - see plan under ARFID problem Assessment & Plan (01/19/2020 7:22 AM MACHINE WHITENER): Assessment: Marlee is admitted on ED Protocol for severe malnutrition. Following feeding plan per Adolescent Medicine and Nutrition. Plan: - see plan under ARFID problem Assessment & Plan (01/18/2020 4:25 PM MACHINE WHITENER): Assessment: Marlee Chavez is a 19 year [...] orthostatics Assessment & Plan (01/17/2020 12:38 PM MACHINE WHITENER): Assessment: Marlee Chavez is a 19 year [...] anxiety Assessment & Plan (01/16/2020 1:41 PM MACHINE WHITENER): Assessment: Marlee Chavez is a 19 year [...] anxiety Assessment & Plan (01/15/2020 8:49 PM MACHINE WHITENER): Assessment: 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 and [...] counseling. Assessment & Plan (01/15/2020 11:57 AM MACHINE WHITENER): Assessment: Marlee Chavez is a 19 year [...] anxiety Assessment & Plan (01/14/2020 1:00 PM MACHINE WHITENER): Assessment: 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 and Anxiety/Depression. Has not yet been eating food, but has taken required replacement PO. Plan: - Continue eating disorder protocol - daily weight, continuous CR monitoring, fall precautions, daily orthostatic vitals - strict I/Os - Meals and snacks: Eating Disorder Protocol 01/13: 1500 kcal + 7 cups + 1 Gatorade + IV @ 80 mL/hr 12: 1600 kcal (start 8pm snack) + 7 [...] () Assessment & Plan (01/14/2020 9:54 AM MACHINE WHITENER): Assessment: Marlee Chavez is a 19 year [...] anxiety Assessment & Plan (01/13/2020 2:34 PM MACHINE WHITENER): Assessment: Marlee Chavez is a 19 year [...] anxiety Assessment & Plan (01/13/2020 12:01 PM MACHINE WHITENER): Moderate protein-calorie malnutrition Assessment: Marlee Chavez is [...] thereafter Assessment & Plan (01/12/2020 3:40 PM MACHINE WHITENER): Moderate protein-calorie malnutrition Assessment: Marlee Chavez is [...] chart) Assessment & Plan (01/12/2020 1:25 PM MACHINE WHITENER): Assessment: Marlee Chavez is a 19 year [...] anxiety Assessment & Plan (01/11/2020 11:43 AM MACHINE WHITENER): Assessment: Marlee Chavez is a 19 year [...] cysts Assessment & Plan (01/10/2020 9:32 AM MACHINE WHITENER): Assessment: Marlee Chavez is a 19 year [...] cysts Assessment & Plan (01/09/2020 11:08 AM MACHINE WHITENER): Assessment: Marlee Chavez is a 19 year [...] cysts Assessment & Plan (01/08/2020 1:32 PM MACHINE WHITENER): Assessment: Marlee Chavez is a 19 year [...] cysts Assessment & Plan (01/07/2020 2:52 PM MACHINE WHITENER): Assessment: Marlee Chavez is a 19 year [...] minimal intake(half a yogurt for breakfast), therefore Mralee will remain inpatient until better PO. Plan: [...] cysts Assessment & Plan (01/06/2020 11:27 AM MACHINE WHITENER): Assessment: Marlee Chavez is a 19 year [...] cysts Assessment & Plan (01/05/2020 3:49 PM MACHINE WHITENER): Assessment: Marlee Chavez is a 19 year [...] cysts Assessment & Plan (01/04/2020 1:53 PM MACHINE WHITENER): Assessment: Marlee Chavez is a 19 year [...] cysts Assessment & Plan (01/03/2020 12:34 AM MACHINE WHITENER): Assessment: Marlee Chavez is a 19 year [...] 03/18/2023 Assessment & Plan (01/24/2022 5:04 PM MACHINE WHITENER): Assessment: Marlee Chavez is a 20 year [...] gabapentin Assessment & Plan (01/23/2022 6:56 PM MACHINE WHITENER): Assessment: Marlee Chavez is a 20 year [...] - Schedule IV zofran - Schedule H2 jnog - Capsacin cream prn - Encourage oral [...] pain Assessment & Plan (01/08/2021 3:05 PM MACHINE WHITENER): Assessment: Patient is an 20 year old [...] I&Os Assessment & Plan (01/07/2021 4:52 PM MACHINE WHITENER): Assessment: Patient is an 20 year old [...] it Assessment & Plan (01/06/2021 6:00 PM MACHINE WHITENER): Assessment: Patient is an 20 year old [...] I&Os Assessment & Plan (01/05/2021 1:27 PM MACHINE WHITENER): Assessment: Patient is an 20 year old [...] I&Os Assessment & Plan (01/04/2021 9:17 PM MACHINE WHITENER): Assessment: Patient is an 20 year old [...] I&Os Assessment & Plan (01/03/2021 8:43 PM MACHINE WHITENER): Assessment: Patient is an 20 year old [...] Admit to [facility] Team- Dr. Coles - zhou q8 hrs - Strict I&Os - Continue [...] wearing condom. She has upcoming appointment with neuro intensivist physician next month at which time, she will be getting a IUD. Plan: -urine test today -GC, chlamydia, trichomonas testing Assessment & Plan (05/24/2020 2:43 PM CDT): Will get urine Hcg and STI testing. Mom is aware and Marlee is ok with us communicating results to her mother. Purging 03/24/2020 05/24/2020 Assessment & Plan (04/05/2020 3:23 PM MACHINE WHITENER): Assessment: Has been drinking excessive amounts of water and putting her fingers in her mouth to induce vomiting. No recorded emesis since 03/25. Plan: Will limit access to water to 250ml at a time. May only bathe once per day after she has taken her meds, had breakfast and lunch. Assessment & Plan (04/04/2020 12:58 PM MACHINE WHITENER): Assessment: Has been drinking excessive amounts of water and putting her fingers in her mouth to induce vomiting. No recorded emesis since 03/25. Plan: Will limit access to water to 250ml at a time. May only bathe once per day after she has taken her meds, had breakfast and lunch. Assessment & Plan (04/01/2020 11:55 AM MACHINE WHITENER): Assessment: Has been drinking excessive amounts of water and putting her fingers in her mouth to induce vomiting. No recorded emesis since 03/25. Plan: Will limit access to water to 250ml at a time. May only bathe once per day after she has taken her meds, had breakfast and lunch. Assessment & Plan (03/24/2020 4:53 PM MACHINE WHITENER): Assessment: Has been drinking excessive amounts of water and putting her fingers in her mouth to induce vomiting. Plan: Will limit access to water to 250ml at a time. May only bathe once per day after she has taken her meds, had breakfast and lunch. Ovarian cyst 01/12/2020 03/19/2020 Assessment & Plan (03/15/2020 11:10 AM MACHINE WHITENER): Assessment: on ultrasound on R Plan: -Radiology recommended repeat imaging in 6 months for ovarian cysts Assessment & Plan (03/04/2020 1:41 PM MACHINE WHITENER): Assessment: on ultrasound on R Plan: -Radiology recommended repeat imaging in 6 months for ovarian cysts Assessment & Plan (03/04/2020 11:50 AM MACHINE WHITENER): Assessment: on ultrasound on R Plan: -Radiology recommended repeat imaging in 6 months for ovarian cysts Assessment & Plan (02/27/2020 9:58 AM MACHINE WHITENER): Assessment: on ultrasound on R Plan: -Radiology recommended repeat imaging in 6 months for ovarian cysts Assessment & Plan (01/28/2020 11:59 AM MACHINE WHITENER): Assessment: on ultrasound on R Plan: -Radiology recommended repeat imaging in 6 months for ovarian cysts Assessment & Plan (01/27/2020 3:52 PM MACHINE WHITENER): Assessment: on ultrasound on R Plan: -Radiology recommended repeat imaging in 6 months for ovarian cysts Assessment & Plan (01/26/2020 6:01 PM MACHINE WHITENER): Assessment: on ultrasound on R Plan: -Radiology recommended repeat imaging in 6 months for ovarian cysts Assessment & Plan (01/13/2020 2:33 PM MACHINE WHITENER): Assessment: on ultrasound on R Plan: -Radiology recommended repeat imaging in 6 months for ovarian cysts Assessment & Plan (01/12/2020 1:26 PM MACHINE WHITENER): Assessment: on ultrasound on R Plan: -Radiology recommended repeat imaging in 6 months for ovarian cysts Self-injurious behavior 03/25/201705/12 Major depressive disorder, severe 03/21/2017 05/24/2020 Intractable vomiting 020 Encounters * This document contains information received from the source organization and may not represent a complete record from that organization. Date Type Department Care Team Description 05/22/2024 Travel 05/12/2024 Travel 05/07/2024 10:00 AM CDT Office Visit [address] [id number] Ronel Thornton DO Anorexia (Primary Dx); Generalized anxiety disorder 04/29/2024 8:20 AM CDT Office Visit [address] [id number] Ronel Thornton DO Anorexia (Primary Dx); Severe bulimia nervosa; Generalized anxiety disorder; Recurrent major depressive disorder, in full remission; PTSD (post-traumatic stress disorder); Borderline personality disorder 04/09/[address] [phone] Ronel Thornton DO Appointment from Last 3 Months Immunizations Immunization Administration Dates Next Due [employer] primary monoval ent 12+ yr 0.3mL Purple cap 07/26/2020,07/03/2020 DTAP 5 PERTUSSIS ANTIGENS 07/08/2007,12/24/2003 DTAP/HEP B/IPV 02/22/2004 DTaP VACCINE IM (6wk-6yrs) 02/22/2003,2002 ,2002 HEP A PEDS 2 DOSE 07/08/2007,07/09/2006 HEP B VACCINE, PED/ADOL 06/09/2003,02/22/2003, HIB VACCINE 02/22/2004, 4,2002,10/20 INFLUENZA VACCINE, QUADR. (A FLURIA, FLUZONE QUADRIVALENT; 6MO+) (IIV4) 01/26/2021 INFLUENZA VACCINE, QUADR. (F LUZONE; FLULAVAL; FLUARIX; AFLURIA QUADRIVALENT; 6MO+), 0.5 ML (IIV4) 01/25/2022 MENINGOCOCCAL ACWY (MCV4P) VAC IM 12/15/2013 MMR 07/08/2007,02/22/2004 PNEUMOCOCCAL PCV7 CONJ, PEDS [...] Date Recorded Patient Health Questionnaire-2 Score 0 05/22/2024 [facility] - Occupational Stress [...] place to sleep or slept in a half-way (including now)? No 04/24/2023 Comments No Sex and Gender Information Value Date Recorded Sex Assigned at Not on file Legal Sex Female 6:25 PM MACHINE WHITENER Gender Identity Not on file Sexual Orientation Not on file Last Filed Vital Signs Vital Sign Reading Time Taken Comments Blood Pressure 90/60 05/22/2024 2:16 PM CDT Pulse 60 05/22/2024 2:16 PM CDT Temperature 36.2 C (97.2 F) 05/22/2024 2:16 PM CDT Respiratory Rate 18 04/28/2023 7:42 PM CDT Oxygen Saturation 98% 05/22/2024 2:16 PM CDT Inhaled Oxygen Concentration 21% 06/27/2021 6 :30 PM CDT Weight 43.1 kg (95 lb) 05/22/2024 2:16 PM CDT Height 157.5 cm (5' 2 ) 05/22/2024 2:16 PM CDT Body Mass Index 17.38 05/22/2024 2:16 PM CDT Plan of Treatment Upcoming Encounters Date Type Department Care Team (Late st Contact Info) Description 06/08/2024 1:20 PM CDT Office Visit [address] [address] Ronel Thornton DO [address] [place] [id number] 01/20/2025 8:20 AM MACHINE WHITENER Office Visit [address] [address] Ronel Thornton DO [address] [place] [id number] Health Maintenance Due Date Last Done Comments HPV VACCINE (1 - 3-dose series) 2017 MENINGOCOCCAL (Group B) VACCINE SHARED DECISION-MAKING (1 of 2 - Standard) 2018 COVID-19 VACCINE (4 - season) 2023 02/23/2021, 07/26/2020, 07/03/2020 DTAP/TDAP/TD VACCINES (7 - Td or Tdap) 12/16/2023 12/15/2013, 07/08/2007, 02/22/2004, Additional history exists INFLUENZA VACCINE (Season Ended) 2024 01/25/2022, 01/26/2021 CHLAMYDIA/GONORRHEA SCREENING 11/28/2024 11/29/2023, 06/07/2022, 01/23/2022, Additional history exists PAP SMEAR 11/28/2026 11/29/2023 ZOSTER VACCINE (1 of 2) 2052 PNEUMOCOCCAL VACCINE Aged Out 02/22/2003, 2002, 2002 No longer eligible based on patient's age to complete this topic HEPATITIS B VACCINE Completed 02/22/2004, 06/09/2003, 02/22/2003, Additional history exists HIB VACCINE Completed 02/22/2004, 02/11, 2002, Additional history exists MENINGOCOCCAL GROUPS A/C/Y/W VACCINE Aged Out 12/15/2013 No longer eligible based on patient's age to complete this topic HEPATITIS C SCREENING Completed 12/07/2021 HIV SCREENING Completed 11/29/2023, 11/12, 08/10/2021, Additional history exists DEPRESSION SCREENING Completed 04/29/2024, 05/21/2023, 03/18/2023, Additional history exists Procedures Procedure Name Priority Date/Time Associated Diagnosis Comments LIPID PROFILE Routine 04/29/2024 8:58 AM CDT MAGNESIUM BLOOD Routine 04/29/2024 8:58 AM CDT Anorexia CBC W AUTO DIFFERENTIAL Routine 04/29/2024 8:58 AM CDT Anorexia COMPREHENSIVE METABOLIC PANEL Routine 04/29/2024 8:58 AM CDT Anorexia NV ELECTROCARDIOGRAM, COMPLETE Routine 04/29/2024 Anorexia PAP CERVICAL CANCER SCREEN CT/NG/TV APT Routine [...] Recently Relevant to Health Maintenance Results * (ABNORMAL) CBC WITH DIFFERENTIAL (04/29/2024 8:58 AM CDT) WBC 7.4 4.0 - 10.7 x10E9/L [facility] ACCOUNT BILL RBC 4.65 3.90 - 5.20 x10E12/L [facility] ACCOUNT BILL Hemoglobin 14.0 11.9 - 15.8 g/dL [facility] ACCOUNT BILL Hematocrit 43.1 34.8 - 46.1 % [facility] ACCOUNT BILL MCV 92.7 80.0 - 98.0 fL [facility] ACCOUNT BILL MCH 30.1 26.7 - 33.6 pg [facility] ACCOUNT BILL MCHC 32.5 31.7 - 36.3 g/dL [facility] ACCOUNT BILL RDW 12.8 11.3 - 14.8 % [facility] ACCOUNT BILL Platelet Count 303 150 - 420 x10E9/L [facility] ACCOUNT BILL Comment:MPV (CS) 11.6 fL 7.8 -11.4 H Granulocytes % 50.1 41.0 - 74.0 % [facility] ACCOUNT BILL Lymphocytes % 37.2 17.0 - 47.0 % [facility] ACCOUNT BILL Monocytes % 11.2(H) 3.0 - 11.0 % [facility] ACCOUNT BILL Eosinophils % 0.7 0.0 - 7.0 % [facility] ACCOUNT BILL Basophils % 0.7 0.0 - 1.6 % [facility] ACCOUNT BILL Granulocytes Absolute 3.71 1.60 - 7.50 x10E9/L [facility] ACCOUNT BILL Lymphocytes Absolute 2.75 1.00 - 4.40 x10E9/L [facility] ACCOUNT BILL Monocytes Absolute 0.83 0.15 - 1.00 x10E9/L [facility] ACCOUNT BILL Eosinophils Absolute 0.05 0.00 - 0.60 x10E9/L [facility] ACCOUNT BILL Basophils Absolute 0.05 0.00 - 0.13 x10E9/L [facility] ACCOUNT BILL Immature Granulocytes 0.1 0.0 - 1.0 % [facility] ACCOUNT BILL Blood BLOOD SPECIMEN / Unknown 04/29/2024 8:58 AM CDT 04/29/2024 Narrative [facility] ACCOUNT BILL - 04/29/2024 6:09 PM CDT Performed at: [address] [place] [address] [address] [place] [phone] Inhalation Therapist: Elizabeth Rangel [facility], Phone: [phone] Ronel Thornton DO LAB - HEMATOLOGY ORDERABLES F inal Result [facility] ACCOUNT BILL [address] [place] [address] * (ABNORMAL) COMPREHENSIVE METABOLIC PANEL (04/29/2024 8:58 AM CDT) [facility] Glucose 77 70 - 99 mg/dL [facility] ACCOUNT BILL BUN 14 5.3 - 18.7 mg/dL [facility] ACCOUNT BILL Creatinine 0.98 0.57 - 1.11 mg/dL [facility] ACCOUNT BILL eGFR by CKD-EPI 84(L) >=90 mL/min/1.7 3 m2 [facility] ACCOUNT BILL Sodium 141 136 - 145 mmol/L [facility] ACCOUNT BILL Potassium 4.8 3.5 - 5.1 mmol/L [facility] ACCOUNT BILL Chloride 105 98 - 107 mmol/L [facility] ACCOUNT BILL CO2 23 22 - 29 mmol/L [facility] ACCOUNT BILL Calcium 10.0 8.4 - 10.4 mg/dL [facility] ACCOUNT BILL Protein Total 7.8 6.4 - 8.3 gm/dL [facility] ACCOUNT BILL Albumin 5.0 3.4 - 5.0 gm/dL [facility] ACCOUNT BILL Bilirubin Total 0.6 0.2 - 1.2 mg/dL [facility] ACCOUNT BILL Alkaline Phosphatase 64 40 - 150 U/L [facility] ACCOUNT BILL AST 15 5 - 34 U/L [facility] ACCOUNT BILL ALT 6 0 - 55 U/L [facility] ACCOUNT BILL Blood BLOOD SPECIMEN / Unknown 04/29/2024 8:58 AM CDT 04/29/2024 Narrative [facility] ACCOUNT BILL - 04/29/2024 6:09 PM CDT Performed at: [address] [place] [address] [place] [id number] Inhalation Therapist: Elizabeth Rangel [facility], Phone: [phone] Ronel Thornton DO LAB - CHEMISTRY ORDERABLES Fi nal Result Performing Organization Address [facility] Co de Phone Number [facility] ACCOUNT BILL [address] [place] [address] * MAGNESIUM BLOOD (04/29/2024 8:58 AM CDT) Magnesium 2.0 1.6 - 2.6 mg/dL [facility] ACCOUNT BILL Blood BLOOD SPECIMEN / Unknown 04/29/2024 8:58 AM CDT 04/29/2024 Narrative [facility] ACCOUNT BILL - 04/29/2024 6:09 PM CDT Performed at: [address] [place] [address] [place] [id number] Inhalation Therapist: Elizabeth Rangel [facility], Phone: [phone] Ronel Thornton DO LAB - CHEMISTRY ORDERABLES Fi nal Result Performing Organization Address [facility] Co de Phone Number [facility] ACCOUNT BILL [address] [place] [address] * LIPID PROFILE (04/29/2024 8:58 AM CDT) Cholesterol 167 <200 mg/dL [facility] ACCOUNT BILL Triglycerides 63 <150 mg/dL [facility] ACCOUNT BILL HDL Cholesterol 43 >40 mg/dL [facility] ACCOUNT BILL VLDL Calculated 13 <=30 mg/dL [facility] ACCOUNT BILL LDL Calculated 111 <130 mg/dL [facility] ACCOUNT BILL 04/29/2024 8:58 AM CDT 04/29/2024 Narrative [facility] ACCOUNT BILL - 04/29/2024 6:09 PM CDT Performed at: [address] [place] [address] [address], [place], [place] [id number] Inhalation Therapist: Elizabeth Rangel [facility], Phone: [phone] Ronel Thornton DO LAB - CHEMISTRY ORDERABLES Fi nal Result [facility] ACCOUNT BILL [address] [place] [address] * NV ELECTROCARDIOGRAM, COMPLETE (04/29/2024) Ronel Thornton DO [facility] - [employer] Ed ited Result - Final * (ABNORMAL) PAP CERVICAL CANCER SCREEN CT/NG/TV APT (11/29/2023 11:06 AM CDT) Age Gdln ACOG Testing 21-29 [facility] ACCOUNT BILL Comment: Performed at: - [facility] [address] [id number] Inhalation Therapist: Meredith Gil MD, Phone: [phone] Performed at: - [facility] [id number] Inhalation Therapist: Meredith Gil MD, Phone: [phone] Diagnosis Comment(A) [facility] ACCOUNT BILL Comment: EPITHELIAL [...] 11:06 AM CDT 11/29/2023 Comment:Cervix Release to [facility] Narrative [facility] ACCOUNT BILL - 12/05/2023 5:09 PM CDT Performed at: [address] [place] [id number] Inhalation Therapist: Meredith Gil MD, Phone: [phone] Specimen Comment: [id number] Specimen Comment: Source.............Cervix Specimen Comment: No. of containers..01 ThinPrep Vial Nai Jurado MD LAB - PATHOLOGY/CYTOLOGY [place] Final Result [facility] ACCOUNT BILL [address] [place] [address] * HIV-1 HIV-2 ANTIBODY + HIV P24 AG PANEL (11/29/2023 10:55 AM CDT) HIV Screen 4th Generation w Reflex Non Reactive Non Reactive [facility] ACCOUNT BILL Comment: HIV-1/HIV-2 antibodies and HIV-1 p24 antigen were NOT detected. There is no laboratory evidence of HIV infection. HIV Negative Blood BLOOD SPECIMEN / Unknown 11/29/2023 10:55 AM CDT 11/29/2023 Narrative [facility] ACCOUNT BILL - 11/30/2023 10:10 AM CDT Performed at: - [facility] [place] [address] [place], [place] [id number] Inhalation Therapist: Karlos Huffman PhD, Phone: [phone] us Nai Jurado MD LAB - CHEMISTRY ORDERABLES Fi nal Result Performing Organization Address [facility] Co de Phone Number [facility] ACCOUNT BILL [address] [place] [address] * HEPATITIS C AB W/RFLX TO HCV RNA QN PCR (12/07/2021) Hepatitis C Antibody NON-REACTI VE NON-REACT [facility] Signal to Cut-Off 0.08 <1.00 [facility] Comment: HCV antibody was non-reactive. There is no laboratory evidence of HCV infection. In most cases, no further action is required. However, if recent HCV exposure is suspected, a test for HCV RNA (test code 46279) is suggested. For additional information please refer to http://education.[employer]/faq/MNO26t4 (This link is being provided for informational/ educational purposes only.) Test Performed at: [employer] [address] [place] [address] PURVI PABLO DO,MPH Blood BLOOD SPECIMEN / Unknown 12/07/2021 12/07/2021 10:47 AM CDT Karrie Mack MD LAB - CHEMISTRY ORDERABLES Final Result Performing Organization Address [facility] Co de Phone Number [facility] [address] [place] [address] from Last 3 Months or Most Recently Relevant to Health Maintenance Insurance [facility] Member Subscriber Plan / Payer (Ef fective 2023-Present) Name:Marlee Chavez Relation to Subscriber:Child Name:NAI NEWMAN Date of :1984 (Home) (Work) Address: [address] [place] [address] Payer ID:[id number] (NAIC) Group ID:[id number] Type:Commercial Address: [place] [id number] [facility] Member Subscriber Plan / Payer ( fective 2023-Present) Name:Marlee Chavez Relation to Subscriber:Child Name:NAI NEWMAN Date of :1982 (Home) (Work) Address: [address] [place] [address] Payer ID:[id number] ([facility]) Group ID:[id number] Type:Commercial Address: [place] [id number] [facility] Advance Directives * Full Code (Latest Code [...] 4:54 PM 06/22/2022 2:44 PM Care Teams Complaint Analyst Relationship Specialty Start Date End Date Ronel Thornton DO [address] [place] [address] PCP - General Family Medicine 03/18/23 Ronel Thornton DO [address] [place] [address] [facility] 04/12/23
--- OUTSIDE RECORDS SUMMARY | 2024-06-04 07:00 | XMS_ITS | Encounter Summary ---
Author Organization [facility] Address [address] [facility] [facility] [place] [address] Care Team Providers Care Orthotics Prosthetics Technician Name Role Phone Mellissa Jiménez MD Primary Care Provider [phone] Ronel Thornton DO Primary Care Provider [phone] Daphnie Gillespie MD Unavailable Juliana Peralta CLASSROOM INSTRUCTOR Unavailable [phone] Juliana Peralta Unavailable [phone] Ronel Thornton DO Unavailable [phone] Kenyatta Taylor RN Unavailable [phone] Tiago Lew Unavailable [phone] Encounter Details Date Type Department Care Team (Late st Contact Info) Description 07/28/2020 Telephone [facility] Pediatrics - Pulmonology [address] [place] [address] Bessie Erwin Social History Tobacco Use Types Packs/Day Years Used Date Smoking Tobacco: Never Smokeless Tobacco: Never Alcohol Use Standard Drinks/Week Comments No 0 (1 standard drink = 0.6 oz pur e alcohol) Comments No Sex and Gender Information Value Date Recorded Sex Assigned at Not on file Legal Sex Female 6:25 PM CROZER Gender Identity Not on file Sexual Orientation [...] PM CDT Mom called regarding not eating [phone] Marla Gillespie documented in this encounter Plan of Treatment Upcoming Encounters Date Type Department Care Team (Late st Contact Info) Description 06/08/2024 1:20 PM CDT Office Visit [address] [address] Ronel Thornton DO [address] [place] [address] 01/20/2025 8:20 AM CROZER Office Visit [address] [address] Ronel Thornton DO [address] [place] [address] documented as of this encounter Visit Diagnoses Not on filedocumented in this encounter Additional Health Concerns Infection Onset Date Last Indicated Resolved Time COVID-19 Under Investigation 08/10/2021 08/10/2021 08/10/2021 2:59 AM CDT documented as of this encounter Care Teams Orthotics Prosthetics Technician Relationship Specialty Start Date End Date Mellissa Jiménez MD [address] [place] [address] [place] [address] PCP - General Family Medicine 04/25/20 03/17/23 Ronel Thornton DO [address] [place] [address] PCP - General Family Medicine 03/18/23 Daphnie Gillespie MD [address] [place] [address] PCP - Attributed-[facility] 02/11/23 04/11/23 Ronel Thornton DO [address] [place] [address] PCP - Attributed-[facility] 04/12/23 Juliana Peralta MSW Outpatient Radiosonde Operator Care Management 04/24/2304/11 Juliana Peralta MSW Outpatient Radiosonde Operator Care Management 04/30/2304/12 Kenyatta Taylor RN [address] 09/02/23 10/04/23 Tiago Lew Care Coordination Specialist Care Management 09/26/23 11/10/23 documented as of this encounter
--- OUTSIDE RECORDS SUMMARY | 2024-06-04 07:00 | XMS_ITS | Encounter Summary ---
Author Organization [facility] Address [address] [place] [address] Care Team Providers Care Water Inspector Name Role Phone Mellissa Jiménez MD Primary Care Provider [phone] Ronel Thornton DO Primary Care Provider [phone] Daphnie Gillespie MD Unavailable Juliana Peralta MECHANIC SENIOR Unavailable [phone] Juliana Peralta MECHANIC SENIOR Unavailable [phone] Ronel Thornton DO Unavailable Kenyatta Taylor RN Unavailable Tiago Lew Unavailable [phone] Reason for Visit * Reason Onset Date Comments Appointment 10/05/2020 Contraceptive management 10/05/2020 Encounter Details Date Type Department Care Team (Late st Contact Info) Description 10/05/2020 Telephone [facility] [address] [place] [address] Karrie Mack MD [address] [place] [address] Appointment; Contraceptive management Social History Tobacco Use Types Packs/Day Years Used Date Smoking Tobacco: Never Smokeless Tobacco: Never Alcohol Use Standard Drinks/Week Comments No 0 (1 standard drink = 0.6 oz pur e alcohol) Comments No Sex and Gender Information Value Date Recorded Sex Assigned at Not on file Legal Sex Female 6:25 PM DRYWALL FINISHING FOREMAN Gender Identity Not on file Sexual Orientation [...] the office yet to get scheduled. CB# [phone] documented in this encounter Plan of Treatment Upcoming Encounters Date Type Department Care Team (Late st Contact Info) Description 06/08/2024 1:20 PM CDT Office Visit [address] [address] Ronel Thornton DO [address] [place] [address] 01/20/2025 8:20 AM DRYWALL FINISHING FOREMAN Office Visit [address] [address] Ronel Thornton DO [address] [place] [address] documented as of this encounter Visit Diagnoses Not on filedocumented in this encounter Additional Health Concerns Infection Onset Date Last Indicated Resolved Time COVID-19 Under Investigation 08/10/2021 08/10/2021 08/10/2021 2:59 AM CDT documented as of this encounter Care Teams Water Inspector Relationship Specialty Start Date End Date Mellissa Jiménez MD [address] [place] [address] [place] [address] PCP - General Family Medicine 04/25/20 03/17/23 Ronel Thornton DO [address] [place] [address] PCP - General Family Medicine 03/18/23 Daphnie Gillespie MD [address] [place] [address] PCP - Attributed-[facility] 02/11/23 04/11/23 Ronel Thornton DO [address] [place] [address] PCP - Attributed-[facility] 04/12/23 Juliana Peralta MSW Outpatient Fence Erector Care Management 04/24/2304/11 Juliana Peralta MSW Outpatient Fence Erector Care Management 04/30/2304/12 Kenyatta Taylor RN [address] [address] Autism SpecialistMalt House Operator 09/02/23 10/04/23 Tiago Lew Care Coordination Specialist Care Management 09/26/23 11/10/23 documented as of this encounter
[2024-06-04 07:10] VITALS: BP 128/90; PULSE 72; RESP 16; O2SAT 99
== END 2024-06-04 07:26 | disposition home or self-care (01) ==
PROVIDERS: Emergency Provider Emergency Medicine; PCP Family Medicine
DX: F41.0 Panic disorder [episodic paroxysmal anxiety] (principal); F41.8 Other specified anxiety disorders
CPT/HCPCS: 96372; 99284; J1630; J3360

== ENCOUNTER 2024-06-05 03:37 | Emergency (ER) | payer OTHER, SELFPAY ==
[2024-06-05 03:40] VITALS: BP 140/114; PULSE 94; RESP 18; TEMP 36.6; O2SAT 98
--- OUTSIDE RECORDS SUMMARY | 2024-06-05 03:45 | XMS_ITS | Clinical Summary ---
Author Organization [facility] Address [address] [place] [address] Phone Care Team Providers Care Test Eng Name Role Phone Mellissa Jiménez MD Primary [...] on file Legal Sex Female 10:44 PM PULP BEATER Gender Identity Not on file Sexual Orientation [...] 52.2 kg (115 lb) 04/20/2023 2:30 AM PULP BEATER Height 152.4 cm (5') 04/20/2023 2:30 AM PULP BEATER Body Mass Index 22.46 04/20/2023 2:30 AM PULP BEATER Plan of Treatment Health Maintenance Due Date [...] 02/22/2004, 06/09/2003, 02/22/2003, Additional history exists [place] [address] [place] [address] Advance Directives For more information, please contact: [phone] * Full Code (Latest Code Status on File) Date Activated Date Inactivated Comments 04/20/2023 2:32 AM 04/21/2023 4:11 PM Care Teams Test Eng Relationship Specialty Start Date End Date Mellissa Jiménez MD [address] [place] [address] [place] [address] PCP - General Family Practice 04/20/23
--- OUTSIDE RECORDS SUMMARY | 2024-06-05 03:45 | XMS_ITS | Encounter Summary ---
Author Organization [facility] Address [address] [place] [address] Care Team Providers Care Theatrical Trouper Name Role Phone Mellissa Jiménez MD Primary Care Provider [phone] Ronel Thornton DO Primary Care Provider [phone] Daphnie Gillespie MD Unavailable Juliana Peralta BUNDLE SHAKER Unavailable [phone] Juliana Peralta BUNDLE SHAKER Unavailable [phone] Ronel Thornton DO Unavailable Kenyatta Taylor RN Unavailable Tiago Lew Unavailable [phone] Reason for Visit * Reason Onset Date Comments Appointment 10/05/2020 Contraceptive management 10/05/2020 Encounter Details Date Type Department Care Team (Late st Contact Info) Description 10/05/2020 Telephone [facility] [address] [place] [address] Karrie Mack MD [address] [place] [address] Appointment; Contraceptive management Social History Tobacco Use Types Packs/Day Years Used Date Smoking Tobacco: Never Smokeless Tobacco: Never Alcohol Use Standard Drinks/Week Comments No 0 (1 standard drink = 0.6 oz pur e alcohol) Comments No Sex and Gender Information Value Date Recorded Sex Assigned at Not on file Legal Sex Female 6:25 PM BRANCH ADMINISTRATOR Gender Identity Not on file Sexual Orientation [...] the office yet to get scheduled. CB# [phone] documented in this encounter Plan of Treatment Upcoming Encounters Date Type Department Care Team (Late st Contact Info) Description 06/08/2024 1:20 PM CDT Office Visit [address] [address] Ronel Thornton DO [address] [place] [address] 01/20/2025 8:20 AM BRANCH ADMINISTRATOR Office Visit [address] [address] Ronel Thornton DO [address] [place] [address] documented as of this encounter Visit Diagnoses Not on filedocumented in this encounter Additional Health Concerns Infection Onset Date Last Indicated Resolved Time COVID-19 Under Investigation 08/10/2021 08/10/2021 08/10/2021 2:59 AM CDT documented as of this encounter Care Teams Theatrical Trouper Relationship Specialty Start Date End Date Mellissa Jiménez MD [address] [place] [address] [place] [address] PCP - General Family Medicine 04/25/20 03/17/23 Ronel Thornton DO [address] [place] [address] PCP - General Family Medicine 03/18/23 Daphnie Gillespie MD [address] [place] [address] PCP - Attributed-[facility] 02/11/23 04/11/23 Ronel Thornton DO [address] [place] [address] PCP - Attributed-[facility] 04/12/23 Juliana Peralta MSW Outpatient Dentistry Professor Care Management 04/24/2304/11 Juliana Peralta MSW Outpatient Dentistry Professor Care Management 04/30/2304/12 Kenyatta Taylor RN [address] [address] Marine InsulatorTool Machine Setup Operator 09/02/23 10/04/23 Tiago Lew Care Coordination Specialist Care Management 09/26/23 11/10/23 documented as of this encounter
--- OUTSIDE RECORDS SUMMARY | 2024-06-05 03:45 | XMS_ITS | Encounter Summary ---
Author Organization [facility] Address [address] [facility] [place] [address] Care Team Providers Care Supervisor Policy Change Clerks Name Role Phone Mellissa Jiménez MD Primary Care Provider [phone] Ronel Thornton DO Primary Care Provider [phone] Daphnie Gillespie MD Unavailable Juliana Peralta ATTENDANT SALES Unavailable [phone] Juliana Peralta ATTENDANT SALES Unavailable [phone] Ronel Thornton DO Unavailable [phone] Kenyatta Taylor RN Unavailable [phone] Tiago Lew Unavailable [phone] Reason for Visit * Reason Onset Date Comments Eating disorder 08/04/2020 Encounter Details Date Type Department Care Team (Late st Contact Info) Description 08/04/2020 Telephone [facility] Interior Design Coordinator [address] [place] [address] Flor Martinez, AUTOMATED WEAVER Eating disorder Social History Tobacco Use Types Packs/Day Years Used Date Smoking Tobacco: Never Smokeless Tobacco: Never Alcohol Use Standard Drinks/Week Comments No 0 (1 standard drink = 0.6 oz pur e alcohol) Comments No Sex and Gender Information Value Date Recorded Sex Assigned at Not on file Legal Sex Female 6:25 PM INBOUND CALL CENTER REPRESENTATIVE Gender Identity Not on file Sexual Orientation [...] phone calls with Kenyatta's mother Esperanza and [facility] this week regarding Kenyatta's relapse, and mother's belief that she needs to be admitted to [facility]. Spoke with mother again this a.m, and they have a phone intake assessment with [facility] next SaturdayAugust 08. documented in this encounter Plan of Treatment Upcoming Encounters Date Type Department Care Team (Late st Contact Info) Description 06/08/2024 1:20 PM CDT Office Visit [facility] - Family Medicine [address] [place] [address] Ronel Thornton DO [address] [place] [address] 01/20/2025 8:20 AM INBOUND CALL CENTER REPRESENTATIVE Office Visit [facility] - Family Medicine [address] [place] [id number] [place] [address] [place] [address] documented as of this encounter Visit Diagnoses Not on filedocumented in this encounter Additional Health Concerns Infection Onset Date Last Indicated Resolved Time COVID-19 Under Investigation 08/10/2021 08/10/2021 08/10/2021 2:59 AM CDT documented as of this encounter Care Teams Supervisor Policy Change Clerks Relationship Specialty Start Date End Date Mellissa Jiménez MD [address] [place] [address] [place] [address] PCP - General Family Medicine 04/25/20 03/17/23 Ronel Thornton DO [address] [place] [address] PCP - General Family Medicine 03/18/23 Daphnie Gillespie MD [address] [place] [address] PCP - Attributed-[facility] 02/11/23 04/11/23 Ronel Thornton DO [address] [place] [address] PCP - Attributed-[facility] 04/12/23 Juliana Peralta MSW Outpatient Business Continuity Planner Care Management 04/24/2304/11 Juliana Peralta MSW Outpatient Business Continuity Planner Care Management 04/30/2304/12 Kenyatta Taylor, RN [address] [address] Instrument DesignerAircraft Maintenance Engineer 09/02/23 10/04/23 Tiago Lew Care Coordination Specialist Care Management 09/26/23 11/10/23 documented as of this encounter
--- OUTSIDE RECORDS SUMMARY | 2024-06-05 03:45 | XMS_ITS | Clinical Summary ---
Author Organization [email or web address] Address [address] [place] [address] Care Team Providers Care Hot Dip Plating Supervisor Name Role Phone Ronel Thornton DO Primary Care Provider [phone] Ronel Thornton DO Unavailable Source Comments [email or web address],non-owned Affiliates and Associated Physician Practices is amultiple site organization consisting of ambulatory clinics and hospital sitesin [place], [place], [place] and [place]. This disclosure is being madepursuant to the Care Everywhere program and may not contain all information available regarding this patient. Last updated 17.[email or web address] Allergies No known active allergies Medications * [...] 01/18/2020 Assessment & Plan (01/08/2021 3:06 PM REFERENCE DATA EXPERT): Assessment: Major depressive disorder, generalized anxiety disorder and substance abuse disorder. Plan: - klonopin and neurontin are all habit forming, concerns they are addictive, plan to discuss retirement goal of weaning as outpatient - must stop all alcohol and MJ - Increased Prozac to 40 - Increased zyprexa to 15 - Melatonin 6mg QHS for sleep - avoid narcotics - taper off zyprexa as outpatient per psychiatry recs Assessment & Plan (01/07/2021 4:50 PM REFERENCE DATA EXPERT): Assessment: Major depressive disorder, generalized anxiety disorder and substance abuse disorder. Plan: - klonopin and neurontin are all habit forming, concerns they are addictive, plan to discuss retirement goal of weaning as outpatient - must stop all alcohol and MJ - Increased Prozac to 40 - Increased zyprexa to 15 - Melatonin 6mg QHS for sleep - avoid narcotics - taper off zyprexa as outpatient per psychiatry recs Assessment & Plan (01/06/2021 5:55 PM REFERENCE DATA EXPERT): Assessment: Major depressive disorder, generalized anxiety disorder and substance abuse disorder. Plan: - klonopin and neurontin are all habit forming, concerns they are addictive, plan to discuss retirement goal of weaning as outpatient - must [...] slowly. Assessment & Plan (04/07/2020 6:45 PM REFERENCE DATA EXPERT): Assessment: Hx of major depressive disorder and generalized anxiety disorder. Pt has been seen by psychiatry and psychology, now improved since starting/optimizing zyprexa QHS, clonazepam TID, and prozac QD. Plan: - Prozac 30 mg QD (dose of 30 mg started on 03/09/20, Prozac initially began 02/07) - Zyprexa 5 mg QHS - Klonopin 0.5mg TID Assessment & Plan (04/06/2020 3:54 PM REFERENCE DATA EXPERT): Assessment: Hx of major depressive disorder and [...] TID Assessment & Plan (04/05/2020 10:49 AM REFERENCE DATA EXPERT): Assessment: Hx of major depressive disorder and [...] TID Assessment & Plan (04/04/2020 10:23 AM REFERENCE DATA EXPERT): Assessment: Hx of major depressive disorder and [...] TID Assessment & Plan (04/03/2020 6:30 PM REFERENCE DATA EXPERT): Assessment: Hx of major depressive disorder and [...] TID Assessment & Plan (04/01/2020 11:15 AM REFERENCE DATA EXPERT): Assessment: Hx of major depressive disorder and [...] dose) Assessment & Plan (03/31/2020 10:07 AM REFERENCE DATA EXPERT): Assessment: Hx of major depressive disorder and [...] dose) Assessment & Plan (03/30/2020 2:24 PM REFERENCE DATA EXPERT): Assessment: Hx of major depressive disorder and [...] dose) Assessment & Plan (03/29/2020 6:50 AM REFERENCE DATA EXPERT): Assessment: Hx of major depressive disorder and [...] dose) Assessment & Plan (03/27/2020 10:30 AM REFERENCE DATA EXPERT): Assessment: Hx of major depressive disorder and generalized anxiety disorder. Pt seen by psychiatry on admission and was started elavil, but continued to have anxiety. Elavil was discontinued due to persistent tachycardia and hypotension. [facility] she was started on [...] dose) Assessment & Plan (03/26/2020 11:15 AM REFERENCE DATA EXPERT): Assessment: Hx of major depressive disorder and [...] dose) Assessment & Plan (03/25/2020 8:58 AM REFERENCE DATA EXPERT): Assessment: Hx of major depressive disorder and [...] dose) Assessment & Plan (03/24/2020 6:44 AM REFERENCE DATA EXPERT): Assessment: Hx of major depressive disorder and [...] dose) Assessment & Plan (03/23/2020 12:19 PM REFERENCE DATA EXPERT): Assessment: Hx of major depressive disorder and [...] dose) Assessment & Plan (03/22/2020 10:47 AM REFERENCE DATA EXPERT): Assessment: Hx of major depressive disorder and generalized anxiety disorder. Pt seen by psychiatry on admission and was started elavil, but continued to have anxiety. Elavil was discontinued due to persistent tachycardia and hypotension. [facility], she was started on zyprexa [...] recommendations) Assessment & Plan (03/21/2020 3:11 PM REFERENCE DATA EXPERT): Assessment: Hx of major depressive disorder and [...] mg. Assessment & Plan (03/20/2020 10:31 AM REFERENCE DATA EXPERT): Assessment: Hx of major depressive disorder and [...] 03/21. Assessment & Plan (03/19/2020 10:38 AM REFERENCE DATA EXPERT): Assessment: Hx of major depressive disorder and [...] withdrawal Assessment & Plan (03/18/2020 12:58 PM REFERENCE DATA EXPERT): Assessment: Hx of major depressive disorder and [...] anxiety Assessment & Plan (03/17/2020 10:33 AM REFERENCE DATA EXPERT): Assessment: Hx of major depressive disorder and [...] appreciated Assessment & Plan (03/16/2020 2:24 PM REFERENCE DATA EXPERT): Assessment: Hx of major depressive disorder and [...] recommendations Assessment & Plan (03/15/2020 11:11 AM REFERENCE DATA EXPERT): Assessment: Hx of major depressive disorder and [...] anxiety Assessment & Plan (03/14/2020 6:28 AM REFERENCE DATA EXPERT): Assessment: Hx of major depressive disorder and [...] anxiety Assessment & Plan (03/13/2020 6:28 AM REFERENCE DATA EXPERT): Assessment: Hx of major depressive disorder and [...] anxiety Assessment & Plan (03/12/2020 11:35 AM REFERENCE DATA EXPERT): Assessment: Hx of major depressive disorder and [...] anxiety Assessment & Plan (03/11/2020 12:43 PM REFERENCE DATA EXPERT): Assessment: Hx of major depressive disorder and [...] anxiety Assessment & Plan (03/10/2020 6:11 AM REFERENCE DATA EXPERT): Assessment: Hx of major depressive disorder and [...] anxiety Assessment & Plan (03/09/2020 6:24 AM REFERENCE DATA EXPERT): Assessment: Hx of major depressive disorder and [...] anxiety Assessment & Plan (03/08/2020 10:51 AM REFERENCE DATA EXPERT): Assessment: Hx of major depressive disorder and [...] anxiety Assessment & Plan (03/07/2020 9:15 AM REFERENCE DATA EXPERT): Assessment: Hx of major depressive disorder and [...] recommendations -Develop daily schedule with assistance of childcare center administratorBenji Assessment & Plan (03/06/2020 10:09 AM REFERENCE DATA EXPERT): Assessment: Hx of major depressive disorder and [...] anxiety Assessment & Plan (03/05/2020 9:56 AM REFERENCE DATA EXPERT): Assessment: Hx of major depressive disorder and [...] anxiety Assessment & Plan (03/04/2020 12:58 PM REFERENCE DATA EXPERT): Assessment: Hx of major depressive disorder and [...] anxiety Assessment & Plan (03/03/2020 3:16 PM REFERENCE DATA EXPERT): Assessment: Hx of major depressive disorder and [...] anxiety Assessment & Plan (03/01/2020 12:04 PM REFERENCE DATA EXPERT): Assessment: Hx of major depressive disorder and [...] anxiety Assessment & Plan (02/29/2020 12:53 PM REFERENCE DATA EXPERT): Assessment: Hx of major depressive disorder and [...] anxiety Assessment & Plan (02/28/2020 9:22 AM REFERENCE DATA EXPERT): Assessment: Hx of major depressive disorder and [...] anxiety Assessment & Plan (02/27/2020 10:27 AM REFERENCE DATA EXPERT): Assessment: Hx of major depressive disorder and [...] negative Assessment & Plan (02/26/2020 11:12 AM REFERENCE DATA EXPERT): Assessment: Hx of major depressive disorder and [...] pending Assessment & Plan (02/25/2020 9:33 AM REFERENCE DATA EXPERT): Assessment: Hx of major depressive disorder and [...] pending Assessment & Plan (02/24/2020 6:51 AM REFERENCE DATA EXPERT): Assessment: Hx of major depressive disorder and [...] pending Assessment & Plan (02/23/2020 10:19 AM REFERENCE DATA EXPERT): Assessment: Hx of major depressive disorder and [...] pending Assessment & Plan (02/22/2020 11:07 AM REFERENCE DATA EXPERT): Assessment: Hx of major depressive disorder and [...] QHS Assessment & Plan (02/21/2020 10:54 AM REFERENCE DATA EXPERT): Assessment: History of major depressive disorder and [...] tablet Assessment & Plan (02/20/2020 11:33 AM REFERENCE DATA EXPERT): Assessment: History of major depressive disorder and [...] tablet Assessment & Plan (02/19/2020 3:05 PM REFERENCE DATA EXPERT): Assessment: History of major depressive disorder and [...] tablet Assessment & Plan (02/18/2020 10:13 AM REFERENCE DATA EXPERT): Assessment: History of major depressive disorder and [...] tablet Assessment & Plan (02/17/2020 12:26 PM REFERENCE DATA EXPERT): Assessment: History of major depressive disorder and [...] tablet Assessment & Plan (02/16/2020 1:14 PM REFERENCE DATA EXPERT): Assessment: History of major depressive disorder and [...] tablet Assessment & Plan (02/15/2020 12:31 PM REFERENCE DATA EXPERT): Assessment: History of major depressive disorder and [...] tablet Assessment & Plan (02/14/2020 2:24 PM REFERENCE DATA EXPERT): Assessment: History of major depressive disorder and [...] tablet Assessment & Plan (02/13/2020 12:00 PM REFERENCE DATA EXPERT): Assessment: History of major depressive disorder and [...] tablet Assessment & Plan (02/12/2020 11:20 AM REFERENCE DATA EXPERT): Assessment: History of major depressive disorder and [...] tablet Assessment & Plan (02/11/2020 11:54 AM REFERENCE DATA EXPERT): Assessment: History of major depressive disorder and [...] tablet Assessment & Plan (02/10/2020 12:09 PM REFERENCE DATA EXPERT): Assessment: History of major depressive disorder and [...] tablet Assessment & Plan (02/09/2020 11:50 AM REFERENCE DATA EXPERT): Assessment: History of major depressive disorder and [...] [place] Assessment & Plan (02/08/2020 12:54 PM REFERENCE DATA EXPERT): Assessment: History of major depressive disorder and [...] [place] Assessment & Plan (02/07/2020 11:47 AM REFERENCE DATA EXPERT): Assessment: History of major depressive disorder and [...] [place] Assessment & Plan (02/06/2020 8:12 AM REFERENCE DATA EXPERT): Assessment: History of major depressive disorder and [...] [place] Assessment & Plan (02/05/2020 9:12 AM REFERENCE DATA EXPERT): Assessment: History of major depressive disorder and [...] [place] Assessment & Plan (02/04/2020 12:43 PM REFERENCE DATA EXPERT): Assessment: History of major depressive disorder and [...] [place] Assessment & Plan (02/03/2020 2:28 PM REFERENCE DATA EXPERT): Assessment: History of major depressive disorder and [...] [place] Assessment & Plan (02/02/2020 4:02 PM REFERENCE DATA EXPERT): Assessment: History of major depressive disorder and [...] [place] Assessment & Plan (02/01/2020 12:12 PM REFERENCE DATA EXPERT): Assessment: History of major depressive disorder and [...] [place] Assessment & Plan (01/31/2020 1:04 PM REFERENCE DATA EXPERT): Assessment: History of major depressive disorder and [...] [place] Assessment & Plan (01/30/2020 10:30 AM REFERENCE DATA EXPERT): Assessment: History of major depressive disorder and [...] [place] Assessment & Plan (01/29/2020 9:40 PM REFERENCE DATA EXPERT): Assessment: History of major depressive disorder and [...] [place] Assessment & Plan (01/28/2020 11:59 AM REFERENCE DATA EXPERT): Assessment: History of major depressive disorder and [...] lunch Assessment & Plan (01/27/2020 3:57 PM REFERENCE DATA EXPERT): Assessment: History of major depressive disorder and [...] lunch Assessment & Plan (01/26/2020 6:01 PM REFERENCE DATA EXPERT): Assessment: History of major depressive disorder and [...] [place] Assessment & Plan (01/25/2020 2:56 PM REFERENCE DATA EXPERT): Assessment: History of major depressive disorder and [...] PO. Assessment & Plan (01/24/2020 8:11 AM REFERENCE DATA EXPERT): Assessment: History of major depressive disorder and [...] (02/22/20) Assessment & Plan (01/23/2020 7:09 AM REFERENCE DATA EXPERT): Assessment: History of major depressive disorder and [...] (02/22/20) Assessment & Plan (01/22/2020 7:52 AM REFERENCE DATA EXPERT): Assessment: History of major depressive disorder and [...] (02/22/20) Assessment & Plan (01/21/2020 7:40 AM REFERENCE DATA EXPERT): Assessment: History of major depressive disorder and [...] (02/22/20) Assessment & Plan (01/20/2020 7:36 AM REFERENCE DATA EXPERT): Assessment: History of major depressive disorder and [...] (02/22/20) Assessment & Plan (01/19/2020 7:22 AM REFERENCE DATA EXPERT): Assessment: History of major depressive disorder and [...] (02/22/20) Assessment & Plan (01/18/2020 4:35 PM REFERENCE DATA EXPERT): Assessment: History of major depressive disorder and [...] range. Assessment & Plan (04/08/2020 1:31 PM REFERENCE DATA EXPERT): Assessment: 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, SMA [...] PT Assessment & Plan (04/07/2020 2:52 PM REFERENCE DATA EXPERT): Assessment: 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, SMA [...] PT Assessment & Plan (04/07/2020 6:44 PM REFERENCE DATA EXPERT): Assessment: Marlee is a 19 year old [...] follow up with adolescent medicine on 04/18, [facility] on 05/02, and and scheduling Psych intake visit SOCIAL: - General medicine team spoke with and updated mother on 04/06 LABS: daily urine spec gravity, BMP/Mg/Phos Q / Assessment & Plan (04/06/2020 6:45 PM REFERENCE DATA EXPERT): Assessment: Marlee is a 19 year old [...] / Assessment & Plan (04/05/2020 3:22 PM REFERENCE DATA EXPERT): Assessment: 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, SMA [...] PT Assessment & Plan (04/05/2020 10:49 AM REFERENCE DATA EXPERT): Assessment: Marlee is a 19 year old [...] T/Th Assessment & Plan (04/04/2020 3:59 PM REFERENCE DATA EXPERT): Assessment: 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, SMA [...] daily Assessment & Plan (04/04/2020 10:21 AM REFERENCE DATA EXPERT): Assessment: Marlee is a 19 year old [...] / Assessment & Plan (04/03/2020 12:59 PM REFERENCE DATA EXPERT): Assessment: Marlee is a 19 year old [...] daily Assessment & Plan (04/02/2020 4:19 PM REFERENCE DATA EXPERT): Assessment: Marlee is a 19 year old [...] daily Assessment & Plan (04/01/2020 11:55 AM REFERENCE DATA EXPERT): Assessment: 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 and [...] daily Assessment & Plan (04/01/2020 11:15 AM REFERENCE DATA EXPERT): Assessment: Marlee is a 19 year old [...] daily Assessment & Plan (03/31/2020 12:05 PM REFERENCE DATA EXPERT): Assessment: 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 and [...] daily Assessment & Plan (03/31/2020 10:06 AM REFERENCE DATA EXPERT): Assessment: Marlee is a 19 year old [...] daily Assessment & Plan (03/30/2020 2:24 PM REFERENCE DATA EXPERT): Assessment: Marlee is a 19 year old [...] daily Assessment & Plan (03/29/2020 10:40 AM REFERENCE DATA EXPERT): Assessment: Marlee is a 19 year old [...] daily Assessment & Plan (03/28/2020 12:29 PM REFERENCE DATA EXPERT): Assessment: Marlee is a 19 year old [...] allowed in room. May have water from [email or web address] cup. Oral fluids limited to 250 mL [...] daily Assessment & Plan (03/27/2020 10:34 AM REFERENCE DATA EXPERT): Assessment: Marlee is a 19 year old [...] night 03/27: Increase to 50 mL/hr tonight. [facility] is aware of increase but did not [...] daily Assessment & Plan (03/26/2020 11:20 AM REFERENCE DATA EXPERT): Assessment: Marlee is a 19 year old [...] allowed in room. May have water from [employer] cup. oral fluids limited to 250 mL [...] daily Assessment & Plan (03/25/2020 12:30 PM REFERENCE DATA EXPERT): Assessment: Marlee is a 19 year old [...] in room. May have water from [facility] cup. - May take shower while sitting [...] daily Assessment & Plan (03/24/2020 5:02 PM REFERENCE DATA EXPERT): Assessment: 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 and [...] anxiety Assessment & Plan (03/24/2020 11:19 AM REFERENCE DATA EXPERT): Assessment: Marlee is a 19 year old [...] daily Assessment & Plan (03/23/2020 12:20 PM REFERENCE DATA EXPERT): Assessment: Marlee is a 19 year old [...] daily Assessment & Plan (03/22/2020 12:20 PM REFERENCE DATA EXPERT): Assessment: Marlee is a 19 year old [...] daily Assessment & Plan (03/21/2020 3:10 PM REFERENCE DATA EXPERT): Assessment: Marlee is a 19 year old [...] 03/15/2020. Assessment & Plan (03/20/2020 10:32 AM REFERENCE DATA EXPERT): Assessment: Marlee is a 19 year old [...] 03/15/2020. Assessment & Plan (03/19/2020 10:37 AM REFERENCE DATA EXPERT): Assessment: Marlee is a 19 year old [...] 03/15/2020. Assessment & Plan (03/18/2020 1:00 PM REFERENCE DATA EXPERT): Assessment: Marlee is a 19 year old [...] 03/15/2020. Assessment & Plan (03/17/2020 10:36 AM REFERENCE DATA EXPERT): Assessment: Marlee is a 19 year old [...] 03/15/2020. Assessment & Plan (03/16/2020 2:10 PM REFERENCE DATA EXPERT): Assessment: Marlee is a 19 year old [...] 03/15/2020. Assessment & Plan (03/15/2020 11:10 AM REFERENCE DATA EXPERT): Assessment: Marlee is a 19 year old [...] 03/15/2020 Assessment & Plan (03/14/2020 9:53 AM REFERENCE DATA EXPERT): Assessment: Marlee is a 19 year old [...] 03/15/2020 Assessment & Plan (03/13/2020 9:39 AM REFERENCE DATA EXPERT): Assessment: Marlee is a 19 year old [...] week Assessment & Plan (03/12/2020 11:35 AM REFERENCE DATA EXPERT): Assessment: Marlee is a 19 year old [...] week Assessment & Plan (03/11/2020 12:43 PM REFERENCE DATA EXPERT): Assessment: Marlee is a 19 year old [...] week Assessment & Plan (03/10/2020 9:12 AM REFERENCE DATA EXPERT): Assessment: Marlee is a 19 year old [...] in Assessment & Plan (03/09/2020 10:22 AM REFERENCE DATA EXPERT): Assessment: Marlee is a 19 year old [...] in Assessment & Plan (03/08/2020 10:52 AM REFERENCE DATA EXPERT): Assessment: Marlee is a 19 year old [...] in Assessment & Plan (03/07/2020 9:18 AM REFERENCE DATA EXPERT): Assessment: Marlee is a 19 year old [...] in Assessment & Plan (03/06/2020 10:09 AM REFERENCE DATA EXPERT): Assessment: Marlee is a 19 year old [...] in Assessment & Plan (03/05/2020 9:56 AM REFERENCE DATA EXPERT): Assessment: Marlee is a 19 year old [...] in Assessment & Plan (03/04/2020 12:58 PM REFERENCE DATA EXPERT): Assessment: Marlee is a 19 year old [...] A/P Assessment & Plan (03/03/2020 3:15 PM REFERENCE DATA EXPERT): Assessment: Marlee is a 19 year old [...] A/P Assessment & Plan (03/02/2020 12:06 PM REFERENCE DATA EXPERT): Assessment: Marlee is a 19 year old [...] A/P Assessment & Plan (03/01/2020 12:05 PM REFERENCE DATA EXPERT): Assessment: Marlee is a 19 year old [...] A/P Assessment & Plan (02/29/2020 12:52 PM REFERENCE DATA EXPERT): Assessment: Marlee is a 19 year old [...] A/P Assessment & Plan (02/28/2020 9:12 AM REFERENCE DATA EXPERT): Assessment: Marlee is a 19 year old [...] A/P Assessment & Plan (02/27/2020 10:03 AM REFERENCE DATA EXPERT): Assessment: Marlee is a 19 year old [...] A/P Assessment & Plan (02/26/2020 11:12 AM REFERENCE DATA EXPERT): Assessment: Marlee is a 19 year old [...] A/P Assessment & Plan (02/25/2020 9:32 AM REFERENCE DATA EXPERT): Assessment: Marlee is a 19 year old [...] A/P Assessment & Plan (02/24/2020 10:42 AM REFERENCE DATA EXPERT): Assessment: Marlee is a 19 year old [...] A/P Assessment & Plan (02/23/2020 10:22 AM REFERENCE DATA EXPERT): Assessment: Marlee is a 19 year old [...] A/P Assessment & Plan (02/22/2020 11:25 AM REFERENCE DATA EXPERT): Assessment: Marlee is a 19 year old [...] A/P Assessment & Plan (02/21/2020 10:54 AM REFERENCE DATA EXPERT): Assessment: Marlee is a 19 year old [...] A/P Assessment & Plan (02/20/2020 11:31 AM REFERENCE DATA EXPERT): Assessment: Marlee is a 19 year old [...] A/P Assessment & Plan (02/19/2020 3:04 PM REFERENCE DATA EXPERT): Assessment: Marlee is a 19 year old [...] TPN. Assessment & Plan (02/18/2020 10:14 AM REFERENCE DATA EXPERT): Assessment: Marlee is a 19 year old [...] Sat) Assessment & Plan (02/17/2020 12:30 PM REFERENCE DATA EXPERT): Assessment: Marlee is a 19 year old [...] pending Assessment & Plan (02/16/2020 2:29 PM REFERENCE DATA EXPERT): Assessment: Marlee is a 19 year old [...] pending Assessment & Plan (02/15/2020 12:33 PM REFERENCE DATA EXPERT): Assessment: Marlee is a 19 year old [...] pending Assessment & Plan (02/14/2020 2:23 PM REFERENCE DATA EXPERT): Assessment: Marlee is a 19 year old [...] pending Assessment & Plan (02/13/2020 11:59 AM REFERENCE DATA EXPERT): Assessment: Marlee is a 19 year old [...] pending Assessment & Plan (02/12/2020 11:49 AM REFERENCE DATA EXPERT): Assessment: Marlee is a 19 year old [...] recs Assessment & Plan (02/11/2020 11:56 AM REFERENCE DATA EXPERT): Assessment: Marlee is a 19 year old [...] recs Assessment & Plan (02/10/2020 12:11 PM REFERENCE DATA EXPERT): Assessment: Marlee is a 19 year old [...] SG) Assessment & Plan (02/09/2020 11:49 AM REFERENCE DATA EXPERT): Assessment: Marlee is a 19 year old [...] SG) Assessment & Plan (02/08/2020 12:54 PM REFERENCE DATA EXPERT): Assessment: Marlee is a 19 year old [...] recs. Assessment & Plan (02/07/2020 12:06 PM REFERENCE DATA EXPERT): Assessment: Marlee is a 19 year old [...] SG) Assessment & Plan (02/06/2020 8:12 AM REFERENCE DATA EXPERT): Assessment: Marlee is a 19 year old [...] SG) Assessment & Plan (02/05/2020 9:12 AM REFERENCE DATA EXPERT): Assessment: Marlee is a 19 year old [...] TG) Assessment & Plan (02/04/2020 12:52 PM REFERENCE DATA EXPERT): Assessment: Marlee is a 19 year old [...] TG) Assessment & Plan (02/03/2020 2:38 PM REFERENCE DATA EXPERT): Assessment: Marlee is a 19 year old [...] TG) Assessment & Plan (02/02/2020 4:02 PM REFERENCE DATA EXPERT): Assessment: Marlee is a 19 year old [...] QOD Assessment & Plan (02/01/2020 12:08 PM REFERENCE DATA EXPERT): Assessment: Marlee is a 19 year old [...] RBCs. Assessment & Plan (01/31/2020 1:05 PM REFERENCE DATA EXPERT): Assessment: Marlee is a 19 year old [...] hematuria Assessment & Plan (01/30/2020 10:30 AM REFERENCE DATA EXPERT): Assessment: Marlee is a 19 year old [...] 10.2 Assessment & Plan (01/29/2020 9:39 PM REFERENCE DATA EXPERT): Assessment: Marlee is a 19 year old [...] syndrome Assessment & Plan (01/28/2020 11:59 AM REFERENCE DATA EXPERT): Assessment: Marlee is a 19 year old [...] QOD Assessment & Plan (01/27/2020 3:59 PM REFERENCE DATA EXPERT): Assessment: Marlee is a 19 year old [...] QOD Assessment & Plan (01/26/2020 5:14 PM REFERENCE DATA EXPERT): Assessment: Marlee is a 19 year old [...] QOD Assessment & Plan (01/25/2020 2:58 PM REFERENCE DATA EXPERT): Assessment: Marlee is a 19 year old [...] QOD Assessment & Plan (01/24/2020 11:54 AM REFERENCE DATA EXPERT): Assessment: Marlee is a 19 year old [...] orthostatics Assessment & Plan (01/23/2020 7:09 AM REFERENCE DATA EXPERT): Assessment: Marlee is a 19 year old [...] orthostatics Assessment & Plan (01/22/2020 4:25 PM REFERENCE DATA EXPERT): Assessment: Marlee is a 19 year old [...] orthostatics Assessment & Plan (01/21/2020 8:15 AM REFERENCE DATA EXPERT): Assessment: Marlee Chavez is a 19 year [...] orthostatics Assessment & Plan (01/20/2020 7:36 AM REFERENCE DATA EXPERT): Assessment: Marlee Chavez is a 19 year [...] orthostatics Assessment & Plan (01/19/2020 7:20 AM REFERENCE DATA EXPERT): Assessment: Marlee Chavez is a 19 year [...] orthostatics Assessment & Plan (01/18/2020 4:30 PM REFERENCE DATA EXPERT): Assessment: Marlee Chavez is a 19 year [...] consult Assessment & Plan (03/27/2020 10:35 AM REFERENCE DATA EXPERT): Assessment: Marlee is admitted on ED Protocol for severe malnutrition. Following feeding plan per Adolescent Medicine and Nutrition. Plan: - see plan under ARFID problem Assessment & Plan (03/26/2020 11:20 AM REFERENCE DATA EXPERT): Assessment: Marlee is admitted on ED Protocol for severe malnutrition. Following feeding plan per Adolescent Medicine and Nutrition. Plan: - see plan under ARFID problem Assessment & Plan (03/24/2020 11:19 AM REFERENCE DATA EXPERT): Assessment: Marlee is admitted on ED Protocol for severe malnutrition. Following feeding plan per [facility]oles[facility] and Nutrition. Plan: - see plan under ARFID problem Assessment & Plan (03/23/2020 9:00 AM REFERENCE DATA EXPERT): Assessment: Marlee is admitted on ED Protocol for severe malnutrition. Following feeding plan per Adolescent [facility] and Nutrition. Plan: - see plan under ARFID problem Assessment & Plan (03/22/2020 12:21 PM REFERENCE DATA EXPERT): Assessment: Marlee is admitted on ED Protocol for severe malnutrition. Following feeding plan per Adolescent Medicine and Nutrition. Plan: - see plan under ARFID problem Assessment & Plan (03/17/2020 4:26 PM REFERENCE DATA EXPERT): Assessment: 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 and [...] anxiety Assessment & Plan (03/15/2020 11:10 AM REFERENCE DATA EXPERT): Assessment: Marlee is admitted on ED Protocol for severe malnutrition. Following feeding plan per Adolescent Medicine and Nutrition. Plan: - see plan under ARFID problem Assessment & Plan (03/10/2020 11:17 AM REFERENCE DATA EXPERT): Assessment: 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 and [...] needed Assessment & Plan (03/06/2020 10:09 AM REFERENCE DATA EXPERT): Assessment: Marlee is admitted on ED Protocol for severe malnutrition. Following feeding plan per Adolescent Medicine and Nutrition. Plan: - see plan under ARFID problem Assessment & Plan (03/04/2020 1:41 PM REFERENCE DATA EXPERT): Assessment: Marlee is admitted on ED Protocol for severe malnutrition. Following feeding plan per Adolescent Medicine and Nutrition. Plan: - see plan under ARFID problem Assessment & Plan (03/04/2020 11:50 AM REFERENCE DATA EXPERT): Assessment: Marlee is admitted on ED Protocol for severe malnutrition. Following feeding plan per Adolescent Medicine and Nutrition. Plan: - see plan under ARFID problem Assessment & Plan (03/03/2020 3:53 PM REFERENCE DATA EXPERT): Assessment: 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 and [...] dad. Assessment & Plan (02/27/2020 9:57 AM REFERENCE DATA EXPERT): Assessment: Marlee is admitted on ED Protocol for severe malnutrition. Following feeding plan per Adolescent Medicine and Nutrition. Plan: - see plan under ARFID problem Assessment & Plan (02/26/2020 9:59 AM REFERENCE DATA EXPERT): Assessment: 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 and [...] plan. Assessment & Plan (02/25/2020 5:48 PM REFERENCE DATA EXPERT): Assessment: 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 and [...] plan. Assessment & Plan (02/18/2020 4:54 PM REFERENCE DATA EXPERT): Assessment: 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 and [...] daily Assessment & Plan (02/11/2020 11:47 AM REFERENCE DATA EXPERT): Assessment: 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 and [...] BID Assessment & Plan (02/09/2020 11:50 AM REFERENCE DATA EXPERT): Assessment: Marlee is admitted on ED Protocol for severe malnutrition. Following feeding plan per Adolescent Medicine and Nutrition. Plan: - see plan under ARFID problem Assessment & Plan (02/07/2020 11:47 AM REFERENCE DATA EXPERT): Assessment: Marlee is admitted on ED Protocol for severe malnutrition. Following feeding plan per Adolescent Medicine and Nutrition. Plan: - see plan under ARFID problem Assessment & Plan (02/06/2020 8:12 AM REFERENCE DATA EXPERT): Assessment: Marlee is admitted on ED Protocol for severe malnutrition. Following feeding plan per Adolescent Medicine and Nutrition. Plan: - see plan under ARFID problem Assessment & Plan (02/05/2020 9:01 AM REFERENCE DATA EXPERT): Assessment: Marlee is admitted on ED Protocol for severe malnutrition. Following feeding plan per Adolescent Medicine and Nutrition. Plan: - see plan under ARFID problem Assessment & Plan (02/04/2020 12:34 PM REFERENCE DATA EXPERT): Assessment: Marlee is admitted on ED Protocol for severe malnutrition. Following feeding plan per Adolescent Medicine and Nutrition. Plan: - see plan under ARFID problem Assessment & Plan (02/03/2020 2:28 PM REFERENCE DATA EXPERT): Assessment: Marlee is admitted on ED Protocol for severe malnutrition. Following feeding plan per Adolescent Medicine and Nutrition. Plan: - see plan under ARFID problem Assessment & Plan (02/02/2020 3:57 PM REFERENCE DATA EXPERT): Assessment: Marlee is admitted on ED Protocol for severe malnutrition. Following feeding plan per Adolescent Medicine and Nutrition. Plan: - see plan under ARFID problem Assessment & Plan (02/01/2020 12:10 PM REFERENCE DATA EXPERT): Assessment: Marlee is admitted on ED Protocol for severe malnutrition. Following feeding plan per Adolescent Medicine and Nutrition. Plan: - see plan under ARFID problem Assessment & Plan (01/31/2020 1:04 PM REFERENCE DATA EXPERT): Assessment: Marlee is admitted on ED Protocol for severe malnutrition. Following feeding plan per Adolescent Medicine and Nutrition. Plan: - see plan under ARFID problem Assessment & Plan (01/30/2020 10:28 AM REFERENCE DATA EXPERT): Assessment: Marlee is admitted on ED Protocol for severe malnutrition. Following feeding plan per Adolescent Medicine and Nutrition. Plan: - see plan under ARFID problem Assessment & Plan (01/28/2020 4:29 PM REFERENCE DATA EXPERT): Assessment: 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 and [...] BID Assessment & Plan (01/24/2020 11:54 AM REFERENCE DATA EXPERT): Assessment: Marlee is admitted on ED Protocol for severe malnutrition. Following feeding plan per Adolescent Medicine and Nutrition. Plan: - see plan under ARFID problem Assessment & Plan (01/23/2020 7:09 AM REFERENCE DATA EXPERT): Assessment: Marlee is admitted on ED Protocol for severe malnutrition. Following feeding plan per Adolescent Medicine and Nutrition. Plan: - see plan under ARFID problem Assessment & Plan (01/22/2020 9:48 AM REFERENCE DATA EXPERT): Assessment: 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 and [...] () Assessment & Plan (01/22/2020 7:52 AM REFERENCE DATA EXPERT): Assessment: Marlee is admitted on ED Protocol for severe malnutrition. Following feeding plan per Adolescent Medicine and Nutrition. Plan: - see plan under ARFID problem Assessment & Plan (01/21/2020 10:33 AM REFERENCE DATA EXPERT): Assessment: 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 and [...] () Assessment & Plan (01/21/2020 7:40 AM REFERENCE DATA EXPERT): Assessment: Marlee is admitted on ED Protocol for severe malnutrition. Following feeding plan per Adolescent Medicine and Nutrition. Plan: - see plan under ARFID problem Assessment & Plan (01/20/2020 7:36 AM REFERENCE DATA EXPERT): Assessment: Marlee is admitted on ED Protocol for severe malnutrition. Following feeding plan per Adolescent Medicine and Nutrition. Plan: - see plan under ARFID problem Assessment & Plan (01/19/2020 7:22 AM REFERENCE DATA EXPERT): Assessment: Marlee is admitted on ED Protocol for severe malnutrition. Following feeding plan per Adolescent Medicine and Nutrition. Plan: - see plan under ARFID problem Assessment & Plan (01/18/2020 4:25 PM REFERENCE DATA EXPERT): Assessment: Marlee Chavez is a 19 year [...] orthostatics Assessment & Plan (01/17/2020 12:38 PM REFERENCE DATA EXPERT): Assessment: Marlee Chavez is a 19 year [...] anxiety Assessment & Plan (01/16/2020 1:41 PM REFERENCE DATA EXPERT): Assessment: Marlee Chavez is a 19 year [...] anxiety Assessment & Plan (01/15/2020 8:49 PM REFERENCE DATA EXPERT): Assessment: 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 and [...] counseling. Assessment & Plan (01/15/2020 11:57 AM REFERENCE DATA EXPERT): Assessment: Marlee Chavez is a 19 year [...] anxiety Assessment & Plan (01/14/2020 1:00 PM REFERENCE DATA EXPERT): Assessment: 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 and [...] () Assessment & Plan (01/14/2020 9:54 AM REFERENCE DATA EXPERT): Assessment: Marlee Chavez is a 19 year [...] anxiety Assessment & Plan (01/13/2020 2:34 PM REFERENCE DATA EXPERT): Assessment: Marlee Chavez is a 19 year [...] anxiety Assessment & Plan (01/13/2020 12:01 PM REFERENCE DATA EXPERT): Moderate protein-calorie malnutrition Assessment: Marlee Chavez is [...] thereafter Assessment & Plan (01/12/2020 3:40 PM REFERENCE DATA EXPERT): Moderate protein-calorie malnutrition Assessment: Marlee Chavez is [...] chart) Assessment & Plan (01/12/2020 1:25 PM REFERENCE DATA EXPERT): Assessment: Marlee Chavez is a 19 year [...] anxiety Assessment & Plan (01/11/2020 11:43 AM REFERENCE DATA EXPERT): Assessment: Marlee Chavez is a 19 year [...] cysts Assessment & Plan (01/10/2020 9:32 AM REFERENCE DATA EXPERT): Assessment: Marlee Chavez is a 19 year [...] cysts Assessment & Plan (01/09/2020 11:08 AM REFERENCE DATA EXPERT): Assessment: Marlee Chavez is a 19 year [...] cysts Assessment & Plan (01/08/2020 1:32 PM REFERENCE DATA EXPERT): Assessment: Marlee Chavez is a 19 year [...] cysts Assessment & Plan (01/07/2020 2:52 PM REFERENCE DATA EXPERT): Assessment: Marlee Chavez is a 19 year [...] cysts Assessment & Plan (01/06/2020 11:27 AM REFERENCE DATA EXPERT): Assessment: Marlee Chavez is a 19 year [...] cysts Assessment & Plan (01/05/2020 3:49 PM REFERENCE DATA EXPERT): Assessment: Marlee Chavez is a 19 year [...] cysts Assessment & Plan (01/04/2020 1:53 PM REFERENCE DATA EXPERT): Assessment: Marlee Chavez is a 19 year [...] cysts Assessment & Plan (01/03/2020 12:34 AM REFERENCE DATA EXPERT): Assessment: Marlee Chavez is a 19 year [...] 03/18/2023 Assessment & Plan (01/24/2022 5:04 PM REFERENCE DATA EXPERT): Assessment: Marlee Chavez is a 20 year [...] gabapentin Assessment & Plan (01/23/2022 6:56 PM REFERENCE DATA EXPERT): Assessment: Marlee Chavez is a 20 year [...] pain Assessment & Plan (01/08/2021 3:05 PM REFERENCE DATA EXPERT): Assessment: Patient is an 20 year old [...] I&Os Assessment & Plan (01/07/2021 4:52 PM REFERENCE DATA EXPERT): Assessment: Patient is an 20 year old [...] it Assessment & Plan (01/06/2021 6:00 PM REFERENCE DATA EXPERT): Assessment: Patient is an 20 year old [...] I&Os Assessment & Plan (01/05/2021 1:27 PM REFERENCE DATA EXPERT): Assessment: Patient is an 20 year old [...] I&Os Assessment & Plan (01/04/2021 9:17 PM REFERENCE DATA EXPERT): Assessment: Patient is an 20 year old [...] I&Os Assessment & Plan (01/03/2021 8:43 PM REFERENCE DATA EXPERT): Assessment: Patient is an 20 year old [...] wearing condom. She has upcoming appointment with automotive center manager next month at which time, she will be getting a IUD. Plan: -urine test today -GC, chlamydia, trichomonas testing Assessment & Plan (05/24/2020 2:43 PM CDT): Will get urine Hcg and STI testing. Mom is aware and Marlee is ok with us communicating results to her mother. Purging 03/24/2020 05/24/2020 Assessment & Plan (04/05/2020 3:23 PM REFERENCE DATA EXPERT): Assessment: Has been drinking excessive amounts of water and putting her fingers in her mouth to induce vomiting. No recorded emesis since 03/25. Plan: Will limit access to water to 250ml at a time. May only bathe once per day after she has taken her meds, had breakfast and lunch. Assessment & Plan (04/04/2020 12:58 PM REFERENCE DATA EXPERT): Assessment: Has been drinking excessive amounts of water and putting her fingers in her mouth to induce vomiting. No recorded emesis since 03/25. Plan: Will limit access to water to 250ml at a time. May only bathe once per day after she has taken her meds, had breakfast and lunch. Assessment & Plan (04/01/2020 11:55 AM REFERENCE DATA EXPERT): Assessment: Has been drinking excessive amounts of water and putting her fingers in her mouth to induce vomiting. No recorded emesis since 03/25. Plan: Will limit access to water to 250ml at a time. May only bathe once per day after she has taken her meds, had breakfast and lunch. Assessment & Plan (03/24/2020 4:53 PM REFERENCE DATA EXPERT): Assessment: Has been drinking excessive amounts of water and putting her fingers in her mouth to induce vomiting. Plan: Will limit access to water to 250ml at a time. May only bathe once per day after she has taken her meds, had breakfast and lunch. Ovarian cyst 01/12/2020 03/19/2020 Assessment & Plan (03/15/2020 11:10 AM REFERENCE DATA EXPERT): Assessment: on ultrasound on R Plan: -Radiology recommended repeat imaging in 6 months for ovarian cysts Assessment & Plan (03/04/2020 1:41 PM REFERENCE DATA EXPERT): Assessment: on ultrasound on R Plan: -Radiology recommended repeat imaging in 6 months for ovarian cysts Assessment & Plan (03/04/2020 11:50 AM REFERENCE DATA EXPERT): Assessment: on ultrasound on R Plan: -Radiology recommended repeat imaging in 6 months for ovarian cysts Assessment & Plan (02/27/2020 9:58 AM REFERENCE DATA EXPERT): Assessment: on ultrasound on R Plan: -Radiology recommended repeat imaging in 6 months for ovarian cysts Assessment & Plan (01/28/2020 11:59 AM REFERENCE DATA EXPERT): Assessment: on ultrasound on R Plan: -Radiology recommended repeat imaging in 6 months for ovarian cysts Assessment & Plan (01/27/2020 3:52 PM REFERENCE DATA EXPERT): Assessment: on ultrasound on R Plan: -Radiology recommended repeat imaging in 6 months for ovarian cysts Assessment & Plan (01/26/2020 6:01 PM REFERENCE DATA EXPERT): Assessment: on ultrasound on R Plan: -Radiology recommended repeat imaging in 6 months for ovarian cysts Assessment & Plan (01/13/2020 2:33 PM REFERENCE DATA EXPERT): Assessment: on ultrasound on R Plan: -Radiology recommended repeat imaging in 6 months for ovarian cysts Assessment & Plan (01/12/2020 1:26 PM REFERENCE DATA EXPERT): Assessment: on ultrasound on R Plan: -Radiology [...] Travel 05/07/2024 10:00 AM CDT Office Visit [address] [address] Ronel Thornton DO Anorexia (Primary Dx); Generalized anxiety disorder 04/29/2024 8:20 AM CDT Office Visit [address] [address] Ronel Thornton DO Anorexia (Primary Dx); Severe bulimia nervosa; Generalized anxiety disorder; Recurrent major depressive disorder, in full remission; PTSD (post-traumatic stress disorder); Borderline personality disorder 04/09/[address] [phone] Ronel Thornton DO Appointment from Last 3 Months Immunizations Immunization Administration Dates Next Due [employer] primary monoval ent 12+ yr 0.3mL Purple [...] Recorded Patient Health Questionnaire-2 Score 0 05/22/2024 [facility] - Occupational [...] place to sleep or slept in a fci (including now)? No 04/24/2023 Comments No Sex and Gender Information Value Date Recorded Sex Assigned at Not on file Legal Sex Female 6:25 PM REFERENCE DATA EXPERT Gender Identity Not on file Sexual Orientation [...] Description 06/08/2024 1:20 PM CDT Office Visit [address] [address] Ronel Thornton DO [address] [place] [address] 01/20/2025 8:20 AM REFERENCE DATA EXPERT Office Visit [address] [address] Ronel Thornton DO [address] [place] [address] Health Maintenance Due Date Last Done [...] PANEL Routine 04/29/2024 8:[address] ELECTROCARDIOGRAM, COMPLETE Routine 04/29/2024 Anorexia PAP CERVICAL [...] - 04/29/2024 6:09 PM CDT Performed at: [address] [place] [address] [address] [place]es [place] [id number] Shuttle Car Operator: Elizabeth Rangel [facility], Phone: [phone] Ronel Thornton DO LAB - HEMATOLOGY ORDERABLES F inal Result [facility] ACCOUNT BILL [address] [place] [address] * (ABNORMAL) COMPREHENSIVE METABOLIC PANEL (04/29/2024 8:58 AM CDT) [facility] Glucose 77 70 - 99 mg/dL [facility] [...] - 04/29/2024 6:09 PM CDT Performed at: [address] [place] [address] [place] [id number] Shuttle Car Operator: Elizabeth Rangel [facility], Phone: [phone] Ronel Thornton DO LAB - CHEMISTRY ORDERABLES Fi nal Result Performing Organization Address [facility] Co de Phone Number [facility] ACCOUNT BILL [address] [place] [address] * MAGNESIUM BLOOD (04/29/2024 8:58 AM CDT) Magnesium 2.0 1.6 - 2.6 mg/dL [facility] ACCOUNT BILL Blood BLOOD SPECIMEN / Unknown 04/29/2024 8:58 AM CDT 04/29/2024 Narrative [facility] ACCOUNT BILL - 04/29/2024 6:09 PM CDT Performed at: [address] [place] [address] [place] [id number] Shuttle Car Operator: Elizabeth Rangel [facility], Phone: [phone] Ronel Thornton DO LAB - CHEMISTRY ORDERABLES Fi nal Result Performing Organization Address City/[facility] Co de Phone Number [facility] ACCOUNT BILL [address] [place] [address] * LIPID PROFILE (04/29/2024 8:58 AM CDT) [...] - 04/29/2024 6:09 PM CDT Performed at: [address] [place] [address] Simon Leigh, [place], [place] [id number] Shuttle Car Operator: Elizabeth Rangel [facility], Phone: [phone] Ronel Thornton DO LAB - CHEMISTRY ORDERABLES Fi nal Result [facility] ACCOUNT BILL [address] [place] [address] * CT ELECTROCARDIOGRAM, COMPLETE (04/29/2024) Ronel Thornton DO CT - PROFESSIONAL SERVICES Ed ited Result - Final * (ABNORMAL) PAP CERVICAL CANCER SCREEN CT/NG/TV APT (11/29/2023 11:06 AM CDT) Age Gdln ACOG Testing 21-29 [facility] ACCOUNT BILL Comment: Performed at: - [facility] [address] [id number] Shuttle Car Operator: Meredith Gil MD, Phone: [phone] Performed at: - [facility] [id number] Shuttle Car Operator: Meredith Gil MD, Phone: [phone] Diagnosis Comment(A) [facility] ACCOUNT BILL Comment: EPITHELIAL [...] 11:06 AM CDT 11/29/2023 Comment:Cervix Release to [facility] Narrative [facility] ACCOUNT BILL - 12/05/2023 5:09 PM CDT Performed at: [address] [place] [id number] Shuttle Car Operator: Meredith Gil MD, Phone: [phone] Specimen Comment: [id number] Specimen Comment: Source.............Cervix Specimen Comment: No. of containers..01 ThinPrep Vial Nai Jurado MD LAB - PATHOLOGY/CYTOLOGY [place] Final Result [facility] ACCOUNT BILL [address] [place] [address] * HIV-1 HIV-2 ANTIBODY + HIV P24 [...] 10:10 AM CDT Performed at: - [facility] [address] [place], [place] [id number] Shuttle Car Operator: Karlos Huffman PhD, Phone: [phone] us Nai Jurado MD LAB - CHEMISTRY ORDERABLES Fi nal Result Performing Organization Address City/[facility] Co de Phone Number [facility] ACCOUNT BILL [address] [place] [address] * HEPATITIS C AB W/RFLX TO HCV RNA QN PCR (12/07/2021) Hepatitis C Antibody NON-REACTI VE NON-REACT [facility] Signal to Cut-Off 0.08 <1.00 [facility] Comment: HCV antibody was non-reactive. There is no laboratory evidence of HCV infection. In most cases, no further action is required. However, if recent HCV exposure is suspected, a test for HCV RNA (test code 18008) is suggested. For additional information please refer to http://education.Impactia/faq/RSN52n8 (This link is being provided for informational/ educational purposes only.) Test Performed at: [facility] [address] [place] [address] PURVI PABLO DO,MPH Blood BLOOD SPECIMEN / Unknown 12/07/2021 12/07/2021 10:47 AM CDT Karrie Mack MD LAB - CHEMISTRY ORDERABLES Final Result Performing Organization Address City/[facility] Co de Phone Number [facility] [address] [place] [address] from Last 3 Months or Most Recently Relevant to Health Maintenance Insurance [facility] Member Subscriber Plan / Payer (Ef fective 2023-Present) Name:Marlee Chavez Relation to Subscriber:Child Name:NAI NEWMAN Date of :1984 (Home) (Work) Address: [address] [place] [address] Payer ID:[id number] ([employer]) Group ID:[id number] Type:Commercial Address: [place] [id number] [facility] Member Subscriber Plan / Payer ( fective 2023-Present) Name:Marlee Chavez Relation to Subscriber:Child Name:NAI NEWMAN Date of :1982 (Home) (Work) Address: [address] [place] [address] Payer ID:[id number] ([facility]) Group ID:[id number] Type:Commercial Address: [place] [id number] [facility] Advance Directives * Full Code [...] 4:54 PM 06/22/2022 2:44 PM Care Teams Hot Dip Plating Supervisor Relationship Specialty Start Date End Date Ronel Thornton DO [address] [place] [address] PCP - General Family Medicine 03/18/23 Ronel Thornton DO [address] [place] [address] PCP [facility] 04/12/23
--- OUTSIDE RECORDS SUMMARY | 2024-06-05 03:45 | XMS_ITS | Encounter Summary ---
Author Organization [facility] Address [address] [place] [address] Care Team Providers Care Director Of Veterans Affairs Name Role Phone Mellissa Jiménez MD Primary Care Provider [phone] Ronel Thornton DO Primary Care Provider Daphnie Gillespie MD Unavailable Juliana Peralta TECHNICAL SALES SUPPORT SPECIALIST Unavailable [phone] Juliana Peralta TECHNICAL SALES SUPPORT SPECIALIST Unavailable [phone] Ronel Thornton DO Unavailable Kenyatta Taylor RN Unavailable Tiago Lew Unavailable [phone] Reason for Visit * Reason Onset Date Comments Forms/questionnaires 01/23/2021 Encounter Details Date Type Department Care Team (Late st Contact Info) Description 01/23/2021 Telephone [facility] Pediatrics - Surgery [address] [place] [address] Daphnie Gillespie MD [address] [place] [phone] Forms/questionnaires Social History Tobacco Use Types [...] on file Legal Sex Female 6:25 PM GAS REGULATOR REPAIRER HELPER Gender Identity Not on file Sexual Orientation Not on file COVID-19 Exposure Response Date Recorded In the last month, have you been in contact with someone who was confirmed or suspected to have Coronavirus / COVID-19? No / Unsure 01/24/2021 11:47 AM GAS REGULATOR REPAIRER HELPER documented as of this encounter Functional Status [...] wanted to know if it was received. REGULATOR REPAIRER HELPER documented in this encounter Plan of Treatment Upcoming Encounters Date Type Department Care Team (Late st Contact Info) Description 06/08/2024 1:20 PM CDT Office Visit [address] [address] Ronel Thornton DO [address] [place] [address] 01/20/2025 8:20 AM GAS REGULATOR REPAIRER HELPER Office Visit [address] [address] Ronel Thornton DO [address] [place] [address] documented as of this encounter Visit Diagnoses Not on filedocumented in this encounter Additional Health Concerns Infection Onset Date Last Indicated Resolved Time COVID-19 Under Investigation 08/10/2021 08/10/2021 08/10/2021 2:59 AM CDT documented as of this encounter Care Teams Director Of Veterans Affairs Relationship Specialty Start Date End Date Mellissa Jiménez MD [address] [place] [address] [place] [address] PCP - General Family Medicine 04/25/20 03/17/23 Ronel Thornton DO [address] [place], [place] [address], [place] [address] PCP - General Family Medicine 03/18/23 Daphnie Gillespie MD [facility] [place] [address] PCP - Attributed-[facility] 02/11/23 04/11/23 Ronel Thronton DO [address] [place] [id number] PCP - Attributed-[facility] 04/12/23 Juliana Peralta MSW Outpatient Digital Advertising Specialist Care Management 04/24/2304/11 Juliana Peralta MSW Outpatient Digital Advertising Specialist Care Management 04/30/2304/12 Kenyatta Taylor RN [address] [address] Social Media Project ManagerCivil Design Technician 09/02/23 10/04/23 Tiago Lew Care Coordination Specialist Care Management 09/26/23 11/10/23 documented as of this encounter
--- OUTSIDE RECORDS SUMMARY | 2024-06-05 03:45 | XMS_ITS | Encounter Summary ---
Author Organization [facility] Address [address] [place] [address] Care Team Providers Care Passenger Attendant Name Role Phone Mellissa Jiménez MD Primary Care Provider [phone] Ronel Thornton DO Primary Care Provider [phone] Daphnie Gillespie MD Unavailable Juliana Peralta CHANNEL MARKETING SPECIALIST Unavailable [phone] Juliana Peralta Unavailable [phone] Ronel Thornton DO Unavailable Kenyatta Taylor RN Unavailable [phone] Tiago Lew Unavailable [phone] Encounter Details Date Type Department Care Team (Late st Contact Info) Description 07/28/2020 Telephone [facility] Pediatrics - Pulmonology [address] [place] [address] Bessie Erwin Social History Tobacco Use Types Packs/Day Years Used Date Smoking Tobacco: Never Smokeless Tobacco: Never Alcohol Use Standard Drinks/Week Comments No 0 (1 standard drink = 0.6 oz pur e alcohol) Comments No Sex and Gender Information Value Date Recorded Sex Assigned at Not on file Legal Sex Female 6:25 PM EDUCATIONAL ADVISER Gender Identity Not on file Sexual Orientation [...] Assessment Author No 04/08/2020 1:15 [address]we RN * Is person blind or have [...] PM CDT Mom called regarding not eating [phone] Marla Gillespie documented in this encounter Plan of Treatment Upcoming Encounters Date Type Department Care Team (Late st Contact Info) Description 06/08/2024 1:20 PM CDT Office Visit [address] [address] Ronel Thornton DO [address] [place] [address] 01/20/2025 8:20 AM EDUCATIONAL ADVISER Office Visit [address] [address] Ronel Thornton DO [address] [place] [address] documented as of this encounter Visit Diagnoses Not on filedocumented in this encounter Additional Health Concerns Infection Onset Date Last Indicated Resolved Time COVID-19 Under Investigation 08/10/2021 08/10/2021 08/10/2021 2:59 AM CDT documented as of this encounter Care Teams Passenger Attendant Relationship Specialty Start Date End Date Mellissa Jiménez MD [address] [place] [address] [place] [address] PCP - General Family Medicine 04/25/20 03/17/23 Ronel Thornton DO [address] [place] [address] PCP - General Family Medicine 03/18/23 Daphnie Gillespie MD [address] [place] [address] PCP - Attributed-[facility] 02/11/23 04/11/23 Ronel Thornton DO [address] [place] [address] PCP - Attributed-[facility] ST[facility] 04/12/23 Juliana Peralta MSW Outpatient Behavioral Medical Director Care Management 04/24/2304/11 Juliana Peralta MSW Outpatient Behavioral Medical Director Care Management 04/30/2304/12 Kenyatta Taylor RN [address] [address] Vamp CreaserGps Field Data Collector 09/02/23 10/04/23 Tiago Lew Care Coordination Specialist Care Management 09/26/23 11/10/23 documented as of this encounter
[2024-06-05] MEDS: HALOPERIDOL LACTATE 5 MG/ML VIAL IM (03:58)
[2024-06-05] MEDS: diazePAM INJ (*CRX) 10 MG/2 ML SYRINGE 5 MG IM (03:58)
--- NOTE | 2024-06-05 04:17 | ED_ITS ---
HPI - General Adult General Chief complaint: Anxiety Stated complaint: PANIC ATTACK WOKE HER FROM SLEEP. Time Seen by Provider: 06/05/24 03:40 History of Present Illness HPI narrative: This is a 23 year female history of anxiety and panic disorders he is well known to our emergency department presenting for another panic attack. Patient has been having increased anxiety lately. She was seen in our emergency department last night for similar presentation. Patient had her typical panic attack again tonight. She took hydroxyzine with no relief. She then called an ambulance and came to ER for further management. She denies SI HI. She has not called her psychiatrist yet. She has recently been started on an SSRI. Related Data Home Medications ?Medication ?Instructions ?Recorded ?Confirmed ?Last Taken ?Type clonazepam 1 mg tablet 1 tablet PO TID 07/17/21 07/18/21 Unknown History cyproheptadine 4 mg tablet See Rx Instructions .Route .COMPLEX 07/17/21 07/18/21 Unknown History fluoxetine 20 mg capsule 20 cap PO DAILY 07/17/21 07/18/21 Unknown History gabapentin 300 mg capsule 300 cap PO TID 07/17/21 07/18/21 Unknown History hydroxyzine HCl 10 mg tablet 10 tablet PO TID 07/17/21 07/18/21 Unknown History olanzapine 15 mg tablet 15 tablet PO DAILY 07/17/21 07/18/21 Unknown History quetiapine 50 mg tablet 1 tablet PO BID 07/17/21 07/18/21 Unknown History ondansetron HCl 8 mg tablet 8 mg PO Q8H 07/20/21 Unknown History Allergies Allergy/AdvReac Type Severity Reaction Status Date / Time No Known Allergies Allergy Verified 03/28/24 03:10 PENDING SALE TO [facility] Past Medical History Medical History Drug withdrawal seizure History of eating disorder Anxiety Depression Family History Family History Grandparent History of alcoholism Depression Mother History of alcoholism Hypertension Depression Social History Social History Smoking status: Never smoker Alcohol intake: never Substance use: former Substance use type: marijuana Living arrangements: with roommate(s) Occupation/Education: unemployed Additional occupation/education comments: not currently working or in school Gender identity (if verbalized by the patient): Female Exam Narrative: APPEARANCE: Anxious appearing Head: atraumatic. EYES: EOMI, NOSE: Atraumatic NECK: Trachea midline RESPIRATORY: No increased rate of breathing CTAB CARDIOVASCULAR: RRR, no peripheral edema ABDOMINAL: Non-distended nontender MUSCULOSKELETAl: No obvious deformities NEURO: Alert. Moving 4/4 extremities SKIN:: Warm, dry. Normal color PSYCHIATRIC: Normal affect Course Vital Signs Vital signs: Vital Signs Temperature 97.8 F 06/05/24 03:40 Pulse Rate 94 06/05/24 03:40 Respiratory Rate 18 06/05/24 03:40 Blood Pressure 140/114 H 06/05/24 03:40 Pulse Oximetry 98 06/05/24 03:40 Oxygen Delivery Room Air 06/05/24 03:40 Temperature 97.8 F 06/05/24 03:40 Pulse Rate 94 06/05/24 03:40 Respiratory Rate 18 06/05/24 03:40 Blood Pressure 140/114 H 06/05/24 03:40 Pulse Oximetry 98 06/05/24 03:40 Oxygen Delivery Room Air 06/05/24 03:40 Medical Decision Making MDM Narrative Medical decision making narrative: -Course: 23-year-old female with anxiety and panic attacks presenting with her typical panic attack. She received Valium and Haldol which was very effective and she is much more calm now. No SI HI or psychosis. She has appropriate follow-up with psychiatrist. She has recently been started on SSRI but is still in the 1st 2 weeks of treatment so is unlikely to have affect. Encouraged her to continue taking the medication. Use hydroxyzine for acute attacks. Discharged with return precautions. -DDX includes but is not limited to: Anxiety, panic disorder Vital Signs Vital Signs: Vital Signs Temperature 97.8 F 06/05/24 03:40 Pulse Rate 94 06/05/24 03:40 Respiratory Rate 18 06/05/24 03:40 Blood Pressure 140/114 H 06/05/24 03:40 Pulse Oximetry 98 06/05/24 03:40 Oxygen Delivery Room Air 06/05/24 03:40 Temperature 97.8 F 06/05/24 03:40 Pulse Rate 94 06/05/24 03:40 Respiratory Rate 18 06/05/24 03:40 Blood Pressure 140/114 H 06/05/24 03:40 Pulse Oximetry 98 06/05/24 03:40 Oxygen Delivery Room Air 06/05/24 03:40 Discharge Plan Discharge Clinical Impression: Acute anxiety Patient Disposition: Home Condition: Stable Instructions: Antibiotic Form, Anxiety (ED) Additional Instructions: Please use hydroxyzine for anxiety attacks. Please continue taking your fluoxetine. Please follow-up with the psychiatrist for further management. Patient Language: Zimbabwean Prescriptions: No Action clonazepam 1 mg tablet 1 tablet PO TID cyproheptadine 4 mg tablet See Rx Instructions .ROUTE .COMPLEX Rx Instructions: as prescribed gabapentin 300 mg capsule 300 cap PO TID hydroxyzine HCl 10 mg tablet 10 tablet PO TID fluoxetine 20 mg capsule 20 cap PO DAILY quetiapine 50 mg tablet 1 tablet PO BID olanzapine 15 mg tablet 15 tablet PO DAILY ondansetron HCl 8 mg tablet 8 mg PO Q8H hydroxyzine pamoate [Vistaril] 25 mg capsule 25 mg PO TID PRN (Reason: anxiety) Qty: 20 0RF Follow-up/Referrals: Tino,Mellissa Ferraro MD [Primary Care Provider] -
[2024-06-05 04:29] VITALS: BP 135/105; PULSE 90; RESP 18; O2SAT 99
== END 2024-06-05 04:30 | disposition home or self-care (01) ==
PROVIDERS: Emergency Provider Emergency Medicine; PCP Family Medicine
DX: F41.8 Other specified anxiety disorders (principal)
CPT/HCPCS: 96372; 99284; J1630; J3360

== ENCOUNTER 2024-06-06 23:20 | Emergency (ER) | payer OTHER, SELFPAY ==
--- OUTSIDE RECORDS SUMMARY | 2024-06-06 23:22 | XMS_ITS | Encounter Summary ---
Author Organization [facility] Address [address] [place] [address] Care Team Providers Care Instrument Technician Apprentice Name Role Phone Mellissa Jiménez MD Primary Care Provider [phone] Ronel Thornton DO Primary Care Provider [phone] Daphnie Gillespie MD Unavailable Juliana Peralta SNOW REMOVAL/PLOWING Unavailable [phone] Juliana Peralta Unavailable [phone] Ronel Thornton DO Unavailable [phone] Kenyatta Taylor RN Unavailable [phone] Tiago Lew Unavailable [phone] Encounter Details Date Type Department Care Team (Late st Contact Info) Description 07/28/[address] [facility] Pediatrics - Pulmonology [address] [place] [address] Bessie Erwin Social History Tobacco Use Types Packs/Day Years Used Date Smoking Tobacco: Never Smokeless Tobacco: Never Alcohol Use Standard Drinks/Week Comments No 0 (1 standard drink = 0.6 oz pur e alcohol) Comments No Sex and Gender Information Value Date Recorded Sex Assigned at Not on file Legal Sex Female 6:25 PM TOUR CONDUCTOR Gender Identity Not on file Sexual Orientation [...] PM CDT Mom called regarding not eating [phone] Marla Gillespie documented in this encounter Plan of Treatment Upcoming Encounters Date Type Department Care Team (Late st Contact Info) Description 06/08/2024 1:20 PM CDT Office Visit [address] [address] Ronel Thornton DO [address] [place] [address] 01/20/2025 8:20 AM TOUR CONDUCTOR Office Visit [address] [address] Ronel Thornton DO [address] [place] [address] documented as of this encounter Visit Diagnoses Not on filedocumented in this encounter Additional Health Concerns Infection Onset Date Last Indicated Resolved Time COVID-19 Under Investigation 08/10/2021 08/10/2021 08/10/2021 2:59 AM CDT documented as of this encounter Care Teams Instrument Technician Apprentice Relationship Specialty Start Date End Date Mellissa Jiménez MD [address] [place] [address] [place] [address] PCP - General Family Medicine 04/25/20 03/17/23 Ronel Thornton DO [address] [place] [address] PCP - General Family Medicine 03/18/23 Daphnie Gillespie MD [address] [place] [address] PCP - Attributed-[facility] 02/11/23 04/11/23 Ronel Thornton DO [address] [place] [address] PCP - Attributed-[facility] 04/12/23 Juliana Peralta MSW Outpatient J2Ee Developer Care Management 04/24/2304/11 Juliana Peralta MSW Outpatient J2Ee Developer Care Management 04/30/2304/12 Kenyatta Taylor RN [address] [address] Chief PsychologistDraw Hand 09/02/23 10/04/23 Tiago Lew Care Coordination Specialist Care Management 09/26/23 11/10/23 documented as of this encounter
--- OUTSIDE RECORDS SUMMARY | 2024-06-06 23:22 | XMS_ITS | Encounter Summary ---
Author Organization [facility] Address [address] [facility] [place] [address] Care Team Providers Care Pulmonary Care Nurse Name Role Phone Mellissa Jiménez MD Primary Care Provider [phone] Ronel Thornton DO Primary Care Provider [phone] Daphnie Gillespie MD Unavailable Juliana Peralta GENERAL OFFICE DISPATCHER Unavailable [phone] Juliana Peralta GENERAL OFFICE DISPATCHER Unavailable [phone] Ronel Thornton DO Unavailable Kenyatta Taylor RN Unavailable [phone] Tiago Lew Unavailable [phone] Reason for Visit * Reason Onset Date Comments Appointment 10/05/2020 Contraceptive management 10/05/2020 Encounter Details Date Type Department Care Team (Late st Contact Info) Description 10/05/2020 Telephone [facility] [address] [place] [address] Karrie Mack MD [address] [place] [address] Appointment; Contraceptive management Social History Tobacco Use Types Packs/Day Years Used Date Smoking Tobacco: Never Smokeless Tobacco: Never Alcohol Use Standard Drinks/Week Comments No 0 (1 standard drink = 0.6 oz pur e alcohol) Comments No Sex and Gender Information Value Date Recorded Sex Assigned at Not on file Legal Sex Female 6:25 PM CASH APPLICATIONS ASSOCIATE Gender Identity Not on file Sexual Orientation [...] the office yet to get scheduled. CB# [phone] documented in this encounter Plan of Treatment Upcoming Encounters Date Type Department Care Team (Late st Contact Info) Description 06/08/2024 1:20 PM CDT Office Visit [address] [address] Ronel Thornton DO [address] [place] [address] 01/20/2025 8:20 AM CASH APPLICATIONS ASSOCIATE Office Visit [address] [address] Ronel Thornton DO [address] [place] [address] documented as of this encounter Visit Diagnoses Not on filedocumented in this encounter Additional Health Concerns Infection Onset Date Last Indicated Resolved Time COVID-19 Under Investigation 08/10/2021 08/10/2021 08/10/2021 2:59 AM CDT documented as of this encounter Care Teams Pulmonary Care Nurse Relationship Specialty Start Date End Date Mellissa Jiménez MD [address] [place] [address] [place] [address] PCP - General Family Medicine 04/25/20 03/17/23 Ronel Thornton DO [address] [place] [address] PCP - General Family Medicine 03/18/23 Daphnie Gillespie MD [address] [place] [address] PCP - Attributed-[facility] ST[facility] 02/11/23 04/11/23 Ronel Thornton DO [address] [place] [address] PCP - Attributed-[facility] ST[facility] 04/12/23 Juliana Peralta MSW Outpatient Gasoline Service Attendant Care Management 04/24/2304/11 Juliana Peralta MSW Outpatient Gasoline Service Attendant Care Management 04/30/2304/12 Kenyatta Taylor RN [address] [address] Manager Of InvestigationsHouse Builder 09/02/23 10/04/23 Tiago Lew Care Coordination Specialist Care Management 09/26/23 11/10/23 documented as of this encounter
--- OUTSIDE RECORDS SUMMARY | 2024-06-06 23:22 | XMS_ITS | Clinical Summary ---
Author Organization [facility] Address [address] [place] [address] Care Team Providers Care Histology Technician Name Role Phone Ronel Thornton DO Primary Care Provider [phone] Ronel Thornton DO Unavailable [phone] Source Comments [facility],non-owned Affiliates and Associated Physician Practices is amultiple site organization consisting of ambulatory clinics and hospital sitesin [place], [place], [place] and [place]. This disclosure is being madepursuant to the Care Everywhere program and may not contain all information available regarding this patient. Last updated 17.[facility] Allergies No known active allergies Medications * This document contains information received from the source organization and may not represent a complete record from that organization. * Be aware that medications may not be up to date on this document. Alwaysverify current medications with the patient. ALPRAZolam (Xanax) 0.5 MG tablet Take 1 (one) tablet by mouth at bedtime 05/07/19 25 Active prochlorperazi ne (Compazine) 5 MG tablet Take 1 (one) tablet by mouth every 8 hours as needed for Nausea/Vomiting 30 tablet 05/08/19 25 Active OLANZapine (ZyPREXA) 5 MG tablet Take 1 (one) tablet by mouth at bedtime 90 tablet 05/08/19 25 Active escitalopram (Lexapro) 5 MG tablet Take 1 (one) tablet by mouth once daily 30 tablet 1 05/23/19 25 Active hydrOXYzine HCl (Atarax) 50 MG tabletIndicati ons:Anxiety Take 1 (one) tablet by mouth every 6 hours as needed Reasons: Feeling Anxious 40 tablet 04/29/19 24 024 Discontin ued(No Pharm No AVS) melatonin 3 MG tabletIndicati ons:Insomnia Take 1 (one) tablet by mouth nightly as needed for Insomnia Reasons: Trouble Sleeping 30 tablet 04/29/19 24 024 Discontin ued(No Pharm No AVS) pantoprazole EC (Protonix) 40 MG tabletIndicati ons:Gastroesop hageal Reflux Disease Take 1 (one) tablet by mouth once daily Reasons: Gastroesophageal Reflux Disease 30 tablet 04/30/19 24 024 Discontin ued(No Pharm No AVS) mirtazapine (Remeron) 15 MG tabletIndicati ons:Major Depressive Disorder Take 1 (one) tablet by mouth at bedtime Reasons: Major Depressive Disorder 30 tablet 04/29/19 24 024 Discontin ued(No Pharm No AVS) gabapentin (Neurontin) 400 MG capsuleIndicat ions:Mood Disorder Take 1 (one) capsule by mouth 2 times daily Reasons: Mood Disorder 60 capsule 04/29/19 24 024 Discontin ued(No Pharm No AVS) lamoTRIgine XR 24hr (LaMICtal XR) 250 MG tablet Take 1 (one) tablet by mouth once daily 90 tablet 2 05/21/19 24 024 Discontin ued(No Pharm No AVS) Active Problems Problem Noted [...] 01/18/2020 Assessment & Plan (01/08/2021 3:06 PM EARTH BORING MACHINE OPERATOR): Assessment: Major depressive disorder, generalized anxiety disorder and substance abuse disorder. Plan: - klonopin and neurontin are all habit forming, concerns they are addictive, plan to discuss [facility] goal of weaning as outpatient - must stop all alcohol and MJ - Increased Prozac to 40 - Increased zyprexa to 15 - Melatonin 6mg QHS for sleep - avoid narcotics - taper off zyprexa as outpatient per psychiatry recs Assessment & Plan (01/07/2021 4:50 PM EARTH BORING MACHINE OPERATOR): Assessment: Major depressive disorder, generalized anxiety disorder and substance abuse disorder. Plan: - klonopin and neurontin are all habit forming, concerns they are addictive, plan to discuss [facility] goal of weaning as outpatient - must stop all alcohol and MJ - Increased Prozac to 40 - Increased zyprexa to 15 - Melatonin 6mg QHS for sleep - avoid narcotics - taper off zyprexa as outpatient per psychiatry recs Assessment & Plan (01/06/2021 5:55 PM EARTH BORING MACHINE OPERATOR): Assessment: Major depressive disorder, generalized anxiety disorder and substance abuse disorder. Plan: - klonopin and neurontin are all habit forming, concerns they are addictive, plan to discuss [facility] goal of weaning as outpatient - must [...] slowly. Assessment & Plan (04/07/2020 6:45 PM EARTH BORING MACHINE OPERATOR): Assessment: Hx of major depressive disorder and generalized anxiety disorder. Pt has been seen by psychiatry and psychology, now improved since starting/optimizing zyprexa QHS, clonazepam TID, and prozac QD. Plan: - Prozac 30 mg QD (dose of 30 mg started on 03/09/20, Prozac initially began 02/07) - Zyprexa 5 mg QHS - Klonopin 0.5mg TID Assessment & Plan (04/06/2020 3:54 PM EARTH BORING MACHINE OPERATOR): Assessment: Hx of major depressive disorder and [...] TID Assessment & Plan (04/05/2020 10:49 AM EARTH BORING MACHINE OPERATOR): Assessment: Hx of major depressive disorder and [...] TID Assessment & Plan (04/04/2020 10:23 AM EARTH BORING MACHINE OPERATOR): Assessment: Hx of major depressive disorder and [...] TID Assessment & Plan (04/03/2020 6:30 PM EARTH BORING MACHINE OPERATOR): Assessment: Hx of major depressive disorder and [...] TID Assessment & Plan (04/01/2020 11:15 AM EARTH BORING MACHINE OPERATOR): Assessment: Hx of major depressive disorder and [...] dose) Assessment & Plan (03/31/2020 10:07 AM EARTH BORING MACHINE OPERATOR): Assessment: Hx of major depressive disorder and [...] dose) Assessment & Plan (03/30/2020 2:24 PM EARTH BORING MACHINE OPERATOR): Assessment: Hx of major depressive disorder and [...] dose) Assessment & Plan (03/29/2020 6:50 AM EARTH BORING MACHINE OPERATOR): Assessment: Hx of major depressive disorder and [...] dose) Assessment & Plan (03/27/2020 10:30 AM EARTH BORING MACHINE OPERATOR): Assessment: Hx of major depressive disorder and generalized anxiety disorder. Pt seen by psychiatry on admission and was started elavil, but continued to have anxiety. Elavil was discontinued due to persistent tachycardia and hypotension. [facility], she was started on zyprexa [...] dose) Assessment & Plan (03/26/2020 11:15 AM EARTH BORING MACHINE OPERATOR): Assessment: Hx of major depressive disorder and [...] dose) Assessment & Plan (03/25/2020 8:58 AM EARTH BORING MACHINE OPERATOR): Assessment: Hx of major depressive disorder and [...] dose) Assessment & Plan (03/24/2020 6:44 AM EARTH BORING MACHINE OPERATOR): Assessment: Hx of major depressive disorder and [...] dose) Assessment & Plan (03/23/2020 12:19 PM EARTH BORING MACHINE OPERATOR): Assessment: Hx of major depressive disorder and [...] dose) Assessment & Plan (03/22/2020 10:47 AM EARTH BORING MACHINE OPERATOR): Assessment: Hx of major depressive disorder and [...] recommendations) Assessment & Plan (03/21/2020 3:11 PM EARTH BORING MACHINE OPERATOR): Assessment: Hx of major depressive disorder and [...] mg. Assessment & Plan (03/20/2020 10:31 AM EARTH BORING MACHINE OPERATOR): Assessment: Hx of major depressive disorder and generalized anxiety disorder. Pt seen by psychiatry on admission and was started elavil, but continued to have anxiety. Elavil was discontinued due to persistent tachycardia and hypotension. Based on [facility], she was started on zyprexa [...] 03/21. Assessment & Plan (03/19/2020 10:38 AM EARTH BORING MACHINE OPERATOR): Assessment: Hx of major depressive disorder and [...] withdrawal Assessment & Plan (03/18/2020 12:58 PM EARTH BORING MACHINE OPERATOR): Assessment: Hx of major depressive disorder and [...] anxiety Assessment & Plan (03/17/2020 10:33 AM EARTH BORING MACHINE OPERATOR): Assessment: Hx of major depressive disorder and [...] appreciated Assessment & Plan (03/16/2020 2:24 PM EARTH BORING MACHINE OPERATOR): Assessment: Hx of major depressive disorder and [...] recommendations Assessment & Plan (03/15/2020 11:11 AM EARTH BORING MACHINE OPERATOR): Assessment: Hx of major depressive disorder and [...] anxiety Assessment & Plan (03/14/2020 6:28 AM EARTH BORING MACHINE OPERATOR): Assessment: Hx of major depressive disorder and [...] anxiety Assessment & Plan (03/13/2020 6:28 AM EARTH BORING MACHINE OPERATOR): Assessment: Hx of major depressive disorder and [...] anxiety Assessment & Plan (03/12/2020 11:35 AM EARTH BORING MACHINE OPERATOR): Assessment: Hx of major depressive disorder and [...] anxiety Assessment & Plan (03/11/2020 12:43 PM EARTH BORING MACHINE OPERATOR): Assessment: Hx of major depressive disorder and [...] anxiety Assessment & Plan (03/10/2020 6:11 AM EARTH BORING MACHINE OPERATOR): Assessment: Hx of major depressive disorder and [...] anxiety Assessment & Plan (03/09/2020 6:24 AM EARTH BORING MACHINE OPERATOR): Assessment: Hx of major depressive disorder and [...] anxiety Assessment & Plan (03/08/2020 10:51 AM EARTH BORING MACHINE OPERATOR): Assessment: Hx of major depressive disorder and [...] anxiety Assessment & Plan (03/07/2020 9:15 AM EARTH BORING MACHINE OPERATOR): Assessment: Hx of major depressive disorder and [...] -Develop daily schedule with assistance of child psychiatrist-Alma Assessment & Plan (03/06/2020 10:09 AM EARTH BORING MACHINE OPERATOR): Assessment: Hx of major depressive disorder and [...] anxiety Assessment & Plan (03/05/2020 9:56 AM EARTH BORING MACHINE OPERATOR): Assessment: Hx of major depressive disorder and [...] anxiety Assessment & Plan (03/04/2020 12:58 PM EARTH BORING MACHINE OPERATOR): Assessment: Hx of major depressive disorder and [...] anxiety Assessment & Plan (03/03/2020 3:16 PM EARTH BORING MACHINE OPERATOR): Assessment: Hx of major depressive disorder and [...] anxiety Assessment & Plan (03/01/2020 12:04 PM EARTH BORING MACHINE OPERATOR): Assessment: Hx of major depressive disorder and [...] anxiety Assessment & Plan (02/29/2020 12:53 PM EARTH BORING MACHINE OPERATOR): Assessment: Hx of major depressive disorder and [...] anxiety Assessment & Plan (02/28/2020 9:22 AM EARTH BORING MACHINE OPERATOR): Assessment: Hx of major depressive disorder and [...] anxiety Assessment & Plan (02/27/2020 10:27 AM EARTH BORING MACHINE OPERATOR): Assessment: Hx of major depressive disorder and [...] negative Assessment & Plan (02/26/2020 11:12 AM EARTH BORING MACHINE OPERATOR): Assessment: Hx of major depressive disorder and [...] pending Assessment & Plan (02/25/2020 9:33 AM EARTH BORING MACHINE OPERATOR): Assessment: Hx of major depressive disorder and [...] pending Assessment & Plan (02/24/2020 6:51 AM EARTH BORING MACHINE OPERATOR): Assessment: Hx of major depressive disorder and [...] pending Assessment & Plan (02/23/2020 10:19 AM EARTH BORING MACHINE OPERATOR): Assessment: Hx of major depressive disorder and [...] pending Assessment & Plan (02/22/2020 11:07 AM EARTH BORING MACHINE OPERATOR): Assessment: Hx of major depressive disorder and [...] QHS Assessment & Plan (02/21/2020 10:54 AM EARTH BORING MACHINE OPERATOR): Assessment: History of major depressive disorder and [...] tablet Assessment & Plan (02/20/2020 11:33 AM EARTH BORING MACHINE OPERATOR): Assessment: History of major depressive disorder and [...] tablet Assessment & Plan (02/19/2020 3:05 PM EARTH BORING MACHINE OPERATOR): Assessment: History of major depressive disorder and [...] tablet Assessment & Plan (02/18/2020 10:13 AM EARTH BORING MACHINE OPERATOR): Assessment: History of major depressive disorder and [...] tablet Assessment & Plan (02/17/2020 12:26 PM EARTH BORING MACHINE OPERATOR): Assessment: History of major depressive disorder and [...] tablet Assessment & Plan (02/16/2020 1:14 PM EARTH BORING MACHINE OPERATOR): Assessment: History of major depressive disorder and [...] tablet Assessment & Plan (02/15/2020 12:31 PM EARTH BORING MACHINE OPERATOR): Assessment: History of major depressive disorder and [...] tablet Assessment & Plan (02/14/2020 2:24 PM EARTH BORING MACHINE OPERATOR): Assessment: History of major depressive disorder and [...] 5 mg QD; will consider increasing on 02/14 per Adolescent recs - Clonazapam wafer TID - Zyprexa 2.5 mg tablet Assessment & Plan (02/13/2020 12:00 PM EARTH BORING MACHINE OPERATOR): Assessment: History of major depressive disorder and [...] tablet Assessment & Plan (02/12/2020 11:20 AM EARTH BORING MACHINE OPERATOR): Assessment: History of major depressive disorder and [...] tablet Assessment & Plan (02/11/2020 11:54 AM EARTH BORING MACHINE OPERATOR): Assessment: History of major depressive disorder and [...] tablet Assessment & Plan (02/10/2020 12:09 PM EARTH BORING MACHINE OPERATOR): Assessment: History of major depressive disorder and [...] tablet Assessment & Plan (02/09/2020 11:50 AM EARTH BORING MACHINE OPERATOR): Assessment: History of major depressive disorder and [...] atarax Assessment & Plan (02/08/2020 12:54 PM EARTH BORING MACHINE OPERATOR): Assessment: History of major depressive disorder and [...] atarax Assessment & Plan (02/07/2020 11:47 AM EARTH BORING MACHINE OPERATOR): Assessment: History of major depressive disorder and [...] atarax Assessment & Plan (02/06/2020 8:12 AM EARTH BORING MACHINE OPERATOR): Assessment: History of major depressive disorder and [...] atarax Assessment & Plan (02/05/2020 9:12 AM EARTH BORING MACHINE OPERATOR): Assessment: History of major depressive disorder and [...] atarax Assessment & Plan (02/04/2020 12:43 PM EARTH BORING MACHINE OPERATOR): Assessment: History of major depressive disorder and [...] atarax Assessment & Plan (02/03/2020 2:28 PM EARTH BORING MACHINE OPERATOR): Assessment: History of major depressive disorder and [...] atarax Assessment & Plan (02/02/2020 4:02 PM EARTH BORING MACHINE OPERATOR): Assessment: History of major depressive disorder and [...] atarax Assessment & Plan (02/01/2020 12:12 PM EARTH BORING MACHINE OPERATOR): Assessment: History of major depressive disorder and [...] atarax Assessment & Plan (01/31/2020 1:04 PM EARTH BORING MACHINE OPERATOR): Assessment: History of major depressive disorder and [...] atarax Assessment & Plan (01/30/2020 10:30 AM EARTH BORING MACHINE OPERATOR): Assessment: History of major depressive disorder and [...] atarax Assessment & Plan (01/29/2020 9:40 PM EARTH BORING MACHINE OPERATOR): Assessment: History of major depressive disorder and [...] atarax Assessment & Plan (01/28/2020 11:59 AM EARTH BORING MACHINE OPERATOR): Assessment: History of major depressive disorder and [...] lunch Assessment & Plan (01/27/2020 3:57 PM EARTH BORING MACHINE OPERATOR): Assessment: History of major depressive disorder and [...] lunch Assessment & Plan (01/26/2020 6:01 PM EARTH BORING MACHINE OPERATOR): Assessment: History of major depressive disorder and [...] atarax Assessment & Plan (01/25/2020 2:56 PM EARTH BORING MACHINE OPERATOR): Assessment: History of major depressive disorder and [...] PO. Assessment & Plan (01/24/2020 8:11 AM EARTH BORING MACHINE OPERATOR): Assessment: History of major depressive disorder and [...] (02/22/20) Assessment & Plan (01/23/2020 7:09 AM EARTH BORING MACHINE OPERATOR): Assessment: History of major depressive disorder and [...] (02/22/20) Assessment & Plan (01/22/2020 7:52 AM EARTH BORING MACHINE OPERATOR): Assessment: History of major depressive disorder and [...] (02/22/20) Assessment & Plan (01/21/2020 7:40 AM EARTH BORING MACHINE OPERATOR): Assessment: History of major depressive disorder and [...] (02/22/20) Assessment & Plan (01/20/2020 7:36 AM EARTH BORING MACHINE OPERATOR): Assessment: History of major depressive disorder and [...] (02/22/20) Assessment & Plan (01/19/2020 7:22 AM EARTH BORING MACHINE OPERATOR): Assessment: History of major depressive disorder and [...] (02/22/20) Assessment & Plan (01/18/2020 4:35 PM EARTH BORING MACHINE OPERATOR): Assessment: History of major depressive disorder and [...] range. 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.] PT Assessment & Plan (04/05/2020 10:49 AM EARTH BORING MACHINE OPERATOR): Assessment: Marlee is a 19 year old [...] LABS: daily urine spec gravity, BMP/Mg/Phos Q /Th Assessment & Plan (04/04/2020 3:59 PM EARTH BORING MACHINE OPERATOR): Assessment: 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, SMA [...] daily Assessment & Plan (04/04/2020 10:21 AM EARTH BORING MACHINE OPERATOR): Assessment: Marlee is a 19 year old [...] gravity, BMP/Mg/Phos Q T/Th Assessment & Plan (04/03/2020 12:59 PM EARTH BORING MACHINE OPERATOR): Assessment: Marlee is a 19 year old [...] daily Assessment & Plan (04/02/2020 4:19 PM EARTH BORING MACHINE OPERATOR): Assessment: Marlee is a 19 year old [...] daily Assessment & Plan (04/01/2020 11:55 AM EARTH BORING MACHINE OPERATOR): Assessment: 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 and [...] daily Assessment & Plan (04/01/2020 11:15 AM EARTH BORING MACHINE OPERATOR): Assessment: Marlee is a 19 year old [...] persistent Tachycardia and BP issues; most likely 22 to eating disorder). Repeat TSH and T4 normal on 03/15/2020. SOCIAL: - General medicine team has long discussion with updates for her mother on 03/24/2020 Lab schedule: BMP, Mg, Phos: 2x/week Spec grav: daily Assessment & Plan (03/31/2020 12:05 PM EARTH BORING MACHINE OPERATOR): Assessment: 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 and [...] daily Assessment & Plan (03/31/2020 10:06 AM EARTH BORING MACHINE OPERATOR): Assessment: Marlee is a 19 year old [...] allowed in room. May have water from [facility] cup. Oral fluids limited to 250 mL [...] daily Assessment & Plan (03/30/2020 2:24 PM EARTH BORING MACHINE OPERATOR): Assessment: Marlee is a 19 year old [...] daily Assessment & Plan (03/29/2020 10:40 AM EARTH BORING MACHINE OPERATOR): Assessment: Marlee is a 19 year old [...] allowed in room. May have water from [employer] cup. Oral fluids limited to 250 mL [...] daily Assessment & Plan (03/28/2020 12:29 PM EARTH BORING MACHINE OPERATOR): Assessment: Marlee is a 19 year old [...] 50 mL/hr x 10 hours (1999 - 06), consider increasing rate again in 1-2 days [...] allowed in room. May have water from M cup. Oral fluids limited to 250 mL [...] daily Assessment & Plan (03/27/2020 10:34 AM EARTH BORING MACHINE OPERATOR): Assessment: Marlee is a 19 year old [...] night 03/27: Increase to 50 mL/hr tonight. [facility] is aware of increase but did not [...] allowed in room. May have water from [employer] cup. Oral fluids limited to 250 mL [...] an inability to supervise meals. - For Mralee's health, NG tube must be replaced if [...] daily Assessment & Plan (03/26/2020 11:20 AM EARTH BORING MACHINE OPERATOR): Assessment: Marlee is a 19 year old [...] daily Assessment & Plan (03/25/2020 12:30 PM EARTH BORING MACHINE OPERATOR): Assessment: Marlee is a 19 year old [...] daily Assessment & Plan (03/24/2020 5:02 PM EARTH BORING MACHINE OPERATOR): Assessment: 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 and [...] anxiety Assessment & Plan (03/24/2020 11:19 AM EARTH BORING MACHINE OPERATOR): Assessment: Marlee is a 19 year old [...] daily Assessment & Plan (03/23/2020 12:20 PM EARTH BORING MACHINE OPERATOR): Assessment: Marlee is a 19 year old [...] daily Assessment & Plan (03/22/2020 12:20 PM EARTH BORING MACHINE OPERATOR): Assessment: Marlee is a 19 year old [...] daily Assessment & Plan (03/21/2020 3:10 PM EARTH BORING MACHINE OPERATOR): Assessment: Marlee is a 19 year old [...] 03/15/2020. Assessment & Plan (03/20/2020 10:32 AM EARTH BORING MACHINE OPERATOR): Assessment: Marlee is a 19 year old [...] 03/15/2020. Assessment & Plan (03/19/2020 10:37 AM EARTH BORING MACHINE OPERATOR): Assessment: Marlee is a 19 year old [...] 03/15/2020. Assessment & Plan (03/18/2020 1:00 PM EARTH BORING MACHINE OPERATOR): Assessment: Marlee is a 19 year old [...] 03/15/2020. 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 Iron studies from 02/27/20-Iron 66, TIBC 323, Iron % Sat 20, and transferrin 258. Iron Dextran 62.5 mg on 02/14/20. ENDO: TSH 0.13 (L) and all other labs were normal (-obtained due to persistent Tachycardia and BP issues; most likely 2/2 to eating disorder). Repeat TSH and T4 normal on 03/15/2020. Assessment & Plan (03/16/2020 2:10 PM EARTH BORING MACHINE OPERATOR): Assessment: Marlee is a 19 year old [...] 03/15/2020. Assessment & Plan (03/15/2020 11:10 AM EARTH BORING MACHINE OPERATOR): Assessment: Marlee is a 19 year old with history of constipation, anxiety, and depression admitted for dehydration and functional pain with restrictive eating patterns related to anxiety. Adolescent medicine was consulted and is following. 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 and [...] 03/15/2020 Assessment & Plan (03/14/2020 9:53 AM EARTH BORING MACHINE OPERATOR): Assessment: Marlee is a 19 year old [...] 03/15/2020 Assessment & Plan (03/13/2020 9:39 AM EARTH BORING MACHINE OPERATOR): Assessment: Marlee is a 19 year old [...] week Assessment & Plan (03/12/2020 11:35 AM EARTH BORING MACHINE OPERATOR): Assessment: Marlee is a 19 year old [...] week Assessment & Plan (03/11/2020 12:43 PM EARTH BORING MACHINE OPERATOR): Assessment: Marlee is a 19 year old [...] week Assessment & Plan (03/10/2020 9:12 AM EARTH BORING MACHINE OPERATOR): Assessment: Marlee is a 19 year old [...] in Assessment & Plan (03/09/2020 10:22 AM EARTH BORING MACHINE OPERATOR): Assessment: Marlee is a 19 year old [...] in Assessment & Plan (03/08/2020 10:52 AM EARTH BORING MACHINE OPERATOR): Assessment: Marlee is a 19 year old [...] in Assessment & Plan (03/07/2020 9:18 AM EARTH BORING MACHINE OPERATOR): Assessment: Marlee is a 19 year old [...] in Assessment & Plan (03/06/2020 10:09 AM EARTH BORING MACHINE OPERATOR): Assessment: Marlee is a 19 year old [...] in Assessment & Plan (03/05/2020 9:56 AM EARTH BORING MACHINE OPERATOR): Assessment: Marlee is a 19 year old [...] to it clogging; [place] (but still past [facility]) placed on 03/02/2020 - Enteral feeds: Jevity [...] in Assessment & Plan (03/04/2020 12:58 PM EARTH BORING MACHINE OPERATOR): Assessment: Marlee is a 19 year old [...] A/P Assessment & Plan (03/03/2020 3:15 PM EARTH BORING MACHINE OPERATOR): Assessment: Marlee is a 19 year old [...] A/P Assessment & Plan (03/02/2020 12:06 PM EARTH BORING MACHINE OPERATOR): Assessment: Marlee is a 19 year old [...] A/P Assessment & Plan (03/01/2020 12:05 PM EARTH BORING MACHINE OPERATOR): Assessment: Marlee is a 19 year old [...] Trigylcerides 3 times weekly (, Th, Sun) ID: No concerns for infection [...] A/P Assessment & Plan (02/29/2020 12:52 PM EARTH BORING MACHINE OPERATOR): Assessment: Marlee is a 19 year old [...] Trigylcerides today and 3 times weekly (, Th, Sat) ID: [...] A/P Assessment & Plan (02/28/2020 9:12 AM EARTH BORING MACHINE OPERATOR): Assessment: Marlee is a 19 year old [...] A/P Assessment & Plan (02/27/2020 10:03 AM EARTH BORING MACHINE OPERATOR): Assessment: Marlee is a 19 year old [...] A/P Assessment & Plan (02/26/2020 11:12 AM EARTH BORING MACHINE OPERATOR): Assessment: Marlee is a 19 year old [...] A/P Assessment & Plan (02/25/2020 9:32 AM EARTH BORING MACHINE OPERATOR): Assessment: Marlee is a 19 year old [...] A/P Assessment & Plan (02/24/2020 10:42 AM EARTH BORING MACHINE OPERATOR): Assessment: Marlee is a 19 year old [...] A/P Assessment & Plan (02/23/2020 10:22 AM EARTH BORING MACHINE OPERATOR): Assessment: Marlee is a 19 year old [...] A/P Assessment & Plan (02/22/2020 11:25 AM EARTH BORING MACHINE OPERATOR): Assessment: Marlee is a 19 year old [...] A/P Assessment & Plan (02/21/2020 10:54 AM EARTH BORING MACHINE OPERATOR): Assessment: Marlee is a 19 year old [...] A/P Assessment & Plan (02/20/2020 11:31 AM EARTH BORING MACHINE OPERATOR): Assessment: Marlee is a 19 year old [...] electrolytes for refeeding - Lactulose 5 mg / -30 mL of water through [place] q48h [...] A/P Assessment & Plan (02/19/2020 3:04 PM EARTH BORING MACHINE OPERATOR): Assessment: Marlee is a 19 year old [...] Phos, Trigylcerides 3 times weekly (, , Sat). Will obtain today due to adjustments made in TPN. Assessment & Plan (02/18/2020 10:14 AM EARTH BORING MACHINE OPERATOR): Assessment: Marlee is a 19 year old [...] Sat) Assessment & Plan (02/17/2020 12:30 PM EARTH BORING MACHINE OPERATOR): Assessment: Marlee is a 19 year old [...] Q8 scheduled - Lactulose 5 mg w/ -30 mL of water through [place] QOD - [...] pending Assessment & Plan (02/16/2020 2:29 PM EARTH BORING MACHINE OPERATOR): Assessment: Marlee is a 19 year old [...] (BMP, Mg, Phos). HFP and Triglycerides Mon, Th. Fecal calprotectin per GI recs - still pending Assessment & Plan (02/15/2020 12:33 PM EARTH BORING MACHINE OPERATOR): Assessment: Marlee is a 19 year old [...] pending Assessment & Plan (02/14/2020 2:23 PM EARTH BORING MACHINE OPERATOR): Assessment: Marlee is a 19 year old [...] pending Assessment & Plan (02/13/2020 11:59 AM EARTH BORING MACHINE OPERATOR): Assessment: Marlee is a 19 year old [...] pending Assessment & Plan (02/12/2020 11:49 AM EARTH BORING MACHINE OPERATOR): Assessment: Marlee is a 19 year old [...] recs Assessment & Plan (02/11/2020 11:56 AM EARTH BORING MACHINE OPERATOR): Assessment: Marlee is a 19 year old [...] recs Assessment & Plan (02/10/2020 12:11 PM EARTH BORING MACHINE OPERATOR): Assessment: Marlee is a 19 year old [...] SG) Assessment & Plan (02/09/2020 11:49 AM EARTH BORING MACHINE OPERATOR): Assessment: Marlee is a 19 year old [...] SG) Assessment & Plan (02/08/2020 12:54 PM EARTH BORING MACHINE OPERATOR): Assessment: Marlee is a 19 year old [...] recs. Assessment & Plan (02/07/2020 12:06 PM EARTH BORING MACHINE OPERATOR): Assessment: Marlee is a 19 year old [...] SG) Assessment & Plan (02/06/2020 8:12 AM EARTH BORING MACHINE OPERATOR): Assessment: Marlee is a 19 year old [...] SG) Assessment & Plan (02/05/2020 9:12 AM EARTH BORING MACHINE OPERATOR): Assessment: Marlee is a 19 year old [...] TG) Assessment & Plan (02/04/2020 12:52 PM EARTH BORING MACHINE OPERATOR): Assessment: Marlee is a 19 year old [...] TG) Assessment & Plan (02/03/2020 2:38 PM EARTH BORING MACHINE OPERATOR): Assessment: Marlee is a 19 year old [...] TG) Assessment & Plan (02/02/2020 4:02 PM EARTH BORING MACHINE OPERATOR): Assessment: Marlee is a 19 year old [...] QOD Assessment & Plan (02/01/2020 12:08 PM EARTH BORING MACHINE OPERATOR): Assessment: Marlee is a 19 year old [...] RBCs. Assessment & Plan (01/31/2020 1:05 PM EARTH BORING MACHINE OPERATOR): Assessment: Marlee is a 19 year old [...] hematuria Assessment & Plan (01/30/2020 10:30 AM EARTH BORING MACHINE OPERATOR): Assessment: Marlee is a 19 year old [...] of ensure for meals. Will discuss with Carni Pennington. Continuous feeds for just over 2000 [...] 10.2 Assessment & Plan (01/29/2020 9:39 PM EARTH BORING MACHINE OPERATOR): Assessment: Marlee is a 19 year old [...] syndrome Assessment & Plan (01/28/2020 11:59 AM EARTH BORING MACHINE OPERATOR): Assessment: Marlee is a 19 year old [...] QOD Assessment & Plan (01/27/2020 3:59 PM EARTH BORING MACHINE OPERATOR): Assessment: Marlee is a 19 year old [...] QOD Assessment & Plan (01/26/2020 5:14 PM EARTH BORING MACHINE OPERATOR): Assessment: Marlee is a 19 year old [...] QOD Assessment & Plan (01/25/2020 2:58 PM EARTH BORING MACHINE OPERATOR): Assessment: Marlee is a 19 year old [...] QOD Assessment & Plan (01/24/2020 11:54 AM EARTH BORING MACHINE OPERATOR): Assessment: Marlee is a 19 year old [...] orthostatics Assessment & Plan (01/23/2020 7:09 AM EARTH BORING MACHINE OPERATOR): Assessment: Marlee is a 19 year old [...] orthostatics Assessment & Plan (01/22/2020 4:25 PM EARTH BORING MACHINE OPERATOR): Assessment: Marlee is a 19 year old [...] orthostatics Assessment & Plan (01/21/2020 8:15 AM EARTH BORING MACHINE OPERATOR): Assessment: Marlee Chavez is a 19 year [...] orthostatics Assessment & Plan (01/20/2020 7:36 AM EARTH BORING MACHINE OPERATOR): Assessment: Marlee Chavez is a 19 year [...] orthostatics Assessment & Plan (01/19/2020 7:20 AM EARTH BORING MACHINE OPERATOR): Assessment: Marlee Chavez is a 19 year [...] orthostatics Assessment & Plan (01/18/2020 4:30 PM EARTH BORING MACHINE OPERATOR): Assessment: Marlee Chavez is a 19 year [...] consult Assessment & Plan (03/27/2020 10:35 AM EARTH BORING MACHINE OPERATOR): Assessment: Marlee is admitted on ED Protocol for severe malnutrition. Following feeding plan per [facility]. Plan: - see plan under ARFID problem Assessment & Plan (03/26/2020 11:20 AM EARTH BORING MACHINE OPERATOR): Assessment: Marlee is admitted on ED Protocol for severe malnutrition. Following feeding plan per [facility]oles[facility] Nutrition. Plan: - see plan under ARFID problem Assessment & Plan (03/24/2020 11:19 AM EARTH BORING MACHINE OPERATOR): Assessment: Marlee is admitted on ED Protocol for severe malnutrition. Following feeding plan per [facility] Nutrition. Plan: - see plan under ARFID problem Assessment & Plan (03/23/2020 9:00 AM EARTH BORING MACHINE OPERATOR): Assessment: Marlee is admitted on ED Protocol for severe malnutrition. Following feeding plan per [facility] Nutrition. Plan: - see plan under ARFID problem Assessment & Plan (03/22/2020 12:21 PM EARTH BORING MACHINE OPERATOR): Assessment: Marlee is admitted on ED Protocol for severe malnutrition. Following feeding plan per [facility] Nutrition. Plan: - see plan under ARFID problem Assessment & Plan (03/17/2020 4:26 PM EARTH BORING MACHINE OPERATOR): Assessment: 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 and [...] anxiety Assessment & Plan (03/15/2020 11:10 AM EARTH BORING MACHINE OPERATOR): Assessment: Marlee is admitted on ED Protocol for severe malnutrition. Following feeding plan per [facility] Nutrition. Plan: - see plan under ARFID problem Assessment & Plan (03/10/2020 11:17 AM EARTH BORING MACHINE OPERATOR): Assessment: 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 and [...] needed Assessment & Plan (03/06/2020 10:09 AM EARTH BORING MACHINE OPERATOR): Assessment: Marlee is admitted on ED Protocol for severe malnutrition. Following feeding plan per [facility] Nutrition. Plan: - see plan under ARFID problem Assessment & Plan (03/04/2020 1:41 PM EARTH BORING MACHINE OPERATOR): Assessment: Marlee is admitted on ED Protocol for severe malnutrition. Following feeding plan per [facility]oles[facility] Nutrition. Plan: - see plan under ARFID problem Assessment & Plan (03/04/2020 11:50 AM EARTH BORING MACHINE OPERATOR): Assessment: Marlee is admitted on ED Protocol for severe malnutrition. Following feeding plan per [facility]oles[facility] Nutrition. Plan: - see plan under ARFID problem Assessment & Plan (03/03/2020 3:53 PM EARTH BORING MACHINE OPERATOR): Assessment: 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 and [...] dad. Assessment & Plan (02/27/2020 9:57 AM EARTH BORING MACHINE OPERATOR): Assessment: Marlee is admitted on ED Protocol for severe malnutrition. Following feeding plan per Adolescent [facility] and Nutrition. Plan: - see plan under ARFID problem Assessment & Plan (02/26/2020 9:59 AM EARTH BORING MACHINE OPERATOR): Assessment: 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 and [...] plan. Assessment & Plan (02/25/2020 5:48 PM EARTH BORING MACHINE OPERATOR): Assessment: 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 and [...] plan. Assessment & Plan (02/18/2020 4:54 PM EARTH BORING MACHINE OPERATOR): Assessment: 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 and [...] daily Assessment & Plan (02/11/2020 11:47 AM EARTH BORING MACHINE OPERATOR): Assessment: 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 and [...] BID Assessment & Plan (02/09/2020 11:50 AM EARTH BORING MACHINE OPERATOR): Assessment: Marlee is admitted on ED Protocol for severe malnutrition. Following feeding plan per [facility]oles[facility] Nutrition. Plan: - see plan under ARFID problem Assessment & Plan (02/07/2020 11:47 AM EARTH BORING MACHINE OPERATOR): Assessment: Marlee is admitted on ED Protocol for severe malnutrition. Following feeding plan per [facility]oles[facility] and Nutrition. Plan: - see plan under ARFID problem Assessment & Plan (02/06/2020 8:12 AM EARTH BORING MACHINE OPERATOR): Assessment: Marlee is admitted on ED Protocol for severe malnutrition. Following feeding plan per Adolescent [facility] and Nutrition. Plan: - see plan under ARFID problem Assessment & Plan (02/05/2020 9:01 AM EARTH BORING MACHINE OPERATOR): Assessment: Marlee is admitted on ED Protocol for severe malnutrition. Following feeding plan per Adolescent [facility] and Nutrition. Plan: - see plan under ARFID problem Assessment & Plan (02/04/2020 12:34 PM EARTH BORING MACHINE OPERATOR): Assessment: Marlee is admitted on ED Protocol for severe malnutrition. Following feeding plan per [facility]oles[facility] and Nutrition. Plan: - see plan under ARFID problem Assessment & Plan (02/03/2020 2:28 PM EARTH BORING MACHINE OPERATOR): Assessment: Marlee is admitted on ED Protocol for severe malnutrition. Following feeding plan per Adolescent [facility] and Nutrition. Plan: - see plan under ARFID problem Assessment & Plan (02/02/2020 3:57 PM EARTH BORING MACHINE OPERATOR): Assessment: Marlee is admitted on ED Protocol for severe malnutrition. Following feeding plan per Adolescent [facility] and Nutrition. Plan: - see plan under ARFID problem Assessment & Plan (02/01/2020 12:10 PM EARTH BORING MACHINE OPERATOR): Assessment: Marlee is admitted on ED Protocol for severe malnutrition. Following feeding plan per Adolescent [facility] and Nutrition. Plan: - see plan under ARFID problem Assessment & Plan (01/31/2020 1:04 PM EARTH BORING MACHINE OPERATOR): Assessment: Marlee is admitted on ED Protocol for severe malnutrition. Following feeding plan per Adolescent Medicine and Nutrition. Plan: - see plan under ARFID problem Assessment & Plan (01/30/2020 10:28 AM EARTH BORING MACHINE OPERATOR): Assessment: Marlee is admitted on ED Protocol for severe malnutrition. Following feeding plan per Adolescent Medicine and Nutrition. Plan: - see plan under ARFID problem Assessment & Plan (01/28/2020 4:29 PM EARTH BORING MACHINE OPERATOR): Assessment: 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 and [...] BID Assessment & Plan (01/24/2020 11:54 AM EARTH BORING MACHINE OPERATOR): Assessment: Marlee is admitted on ED Protocol for severe malnutrition. Following feeding plan per Adolescent Medicine and Nutrition. Plan: - see plan under ARFID problem Assessment & Plan (01/23/2020 7:09 AM EARTH BORING MACHINE OPERATOR): Assessment: Marlee is admitted on ED Protocol for severe malnutrition. Following feeding plan per Adolescent Medicine and Nutrition. Plan: - see plan under ARFID problem Assessment & Plan (01/22/2020 9:48 AM EARTH BORING MACHINE OPERATOR): Assessment: 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 and [...] () Assessment & Plan (01/22/2020 7:52 AM EARTH BORING MACHINE OPERATOR): Assessment: Marlee is admitted on ED Protocol for severe malnutrition. Following feeding plan per Adolescent Medicine and Nutrition. Plan: - see plan under ARFID problem Assessment & Plan (01/21/2020 10:33 AM EARTH BORING MACHINE OPERATOR): Assessment: 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 and [...] () Assessment & Plan (01/21/2020 7:40 AM EARTH BORING MACHINE OPERATOR): Assessment: Marlee is admitted on ED Protocol for severe malnutrition. Following feeding plan per Adolescent Medicine and Nutrition. Plan: - see plan under ARFID problem Assessment & Plan (01/20/2020 7:36 AM EARTH BORING MACHINE OPERATOR): Assessment: Marlee is admitted on ED Protocol for severe malnutrition. Following feeding plan per Adolescent Medicine and Nutrition. Plan: - see plan under ARFID problem Assessment & Plan (01/19/2020 7:22 AM EARTH BORING MACHINE OPERATOR): Assessment: Marlee is admitted on ED Protocol for severe malnutrition. Following feeding plan per Adolescent Medicine and Nutrition. Plan: - see plan under ARFID problem Assessment & Plan (01/18/2020 4:25 PM EARTH BORING MACHINE OPERATOR): Assessment: Marlee Chavez is a 19 year [...] orthostatics Assessment & Plan (01/17/2020 12:38 PM EARTH BORING MACHINE OPERATOR): Assessment: Marlee Chavez is a 19 year [...] anxiety Assessment & Plan (01/16/2020 1:41 PM EARTH BORING MACHINE OPERATOR): Assessment: Marlee Chavez is a 19 year [...] anxiety Assessment & Plan (01/15/2020 8:49 PM EARTH BORING MACHINE OPERATOR): Assessment: 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 and [...] counseling. Assessment & Plan (01/15/2020 11:57 AM EARTH BORING MACHINE OPERATOR): Assessment: Marlee Chavez is a 19 year [...] anxiety Assessment & Plan (01/14/2020 1:00 PM EARTH BORING MACHINE OPERATOR): Assessment: 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 and [...] () Assessment & Plan (01/14/2020 9:54 AM EARTH BORING MACHINE OPERATOR): Assessment: Marlee Chavez is a 19 year [...] anxiety Assessment & Plan (01/13/2020 2:34 PM EARTH BORING MACHINE OPERATOR): Assessment: Marlee Chavez is a 19 year [...] anxiety Assessment & Plan (01/13/2020 12:01 PM EARTH BORING MACHINE OPERATOR): Moderate protein-calorie malnutrition Assessment: Marlee Chavez is [...] thereafter Assessment & Plan (01/12/2020 3:40 PM EARTH BORING MACHINE OPERATOR): Moderate protein-calorie malnutrition Assessment: Marlee Chavez is [...] chart) Assessment & Plan (01/12/2020 1:25 PM EARTH BORING MACHINE OPERATOR): Assessment: Marlee Chavez is a 19 year [...] anxiety Assessment & Plan (01/11/2020 11:43 AM EARTH BORING MACHINE OPERATOR): Assessment: Marlee Chavez is a 19 year [...] cysts Assessment & Plan (01/10/2020 9:32 AM EARTH BORING MACHINE OPERATOR): Assessment: Marlee Chavez is a 19 year [...] cysts Assessment & Plan (01/09/2020 11:08 AM EARTH BORING MACHINE OPERATOR): Assessment: Marlee Chavez is a 19 year [...] cysts Assessment & Plan (01/08/2020 1:32 PM EARTH BORING MACHINE OPERATOR): Assessment: Marlee Chavez is a 19 year [...] cysts Assessment & Plan (01/07/2020 2:52 PM EARTH BORING MACHINE OPERATOR): Assessment: Marlee Chavez is a 19 year [...] cysts Assessment & Plan (01/06/2020 11:27 AM EARTH BORING MACHINE OPERATOR): Assessment: Marlee Chavez is a 19 year [...] cysts Assessment & Plan (01/05/2020 3:49 PM EARTH BORING MACHINE OPERATOR): Assessment: Marlee Chavez is a 19 year [...] cysts Assessment & Plan (01/04/2020 1:53 PM EARTH BORING MACHINE OPERATOR): Assessment: Marlee Chavez is a 19 year [...] cysts Assessment & Plan (01/03/2020 12:34 AM EARTH BORING MACHINE OPERATOR): Assessment: Marlee Chavez is a 19 year [...] unspecified whether recurrent 02/14/2022 03/18/2023 Electrolyte abnormality 01/23/2022/06/2023 Intractable nausea and vomiting 10/29/2021 03/18/2023 Assessment [...] 03/18/2023 Assessment & Plan (01/24/2022 5:04 PM EARTH BORING MACHINE OPERATOR): Assessment: Marlee Chavez is a 20 year [...] gabapentin Assessment & Plan (01/23/2022 6:56 PM EARTH BORING MACHINE OPERATOR): Assessment: Marlee Chavez is a 20 year [...] pain Assessment & Plan (01/08/2021 3:05 PM EARTH BORING MACHINE OPERATOR): Assessment: Patient is an 20 year old [...] I&Os Assessment & Plan (01/07/2021 4:52 PM EARTH BORING MACHINE OPERATOR): Assessment: Patient is an 20 year old [...] it Assessment & Plan (01/06/2021 6:00 PM EARTH BORING MACHINE OPERATOR): Assessment: Patient is an 20 year old [...] I&Os Assessment & Plan (01/05/2021 1:27 PM EARTH BORING MACHINE OPERATOR): Assessment: Patient is an 20 year old [...] I&Os Assessment & Plan (01/04/2021 9:17 PM EARTH BORING MACHINE OPERATOR): Assessment: Patient is an 20 year old [...] I&Os Assessment & Plan (01/03/2021 8:43 PM EARTH BORING MACHINE OPERATOR): Assessment: Patient is an 20 year old [...] wearing condom. She has upcoming appointment with continuous improvement facilitator next month at which time, she will be getting a IUD. Plan: -urine test today -GC, chlamydia, trichomonas testing Assessment & Plan (05/24/2020 2:43 PM CDT): Will get urine Hcg and STI testing. Mom is aware and Marlee is ok with us communicating results to her mother. Purging 03/24/2020 05/24/2020 Assessment & Plan (04/05/2020 3:23 PM EARTH BORING MACHINE OPERATOR): Assessment: Has been drinking excessive amounts of water and putting her fingers in her mouth to induce vomiting. No recorded emesis since 03/25. Plan: Will limit access to water to 250ml at a time. May only bathe once per day after she has taken her meds, had breakfast and lunch. Assessment & Plan (04/04/2020 12:58 PM EARTH BORING MACHINE OPERATOR): Assessment: Has been drinking excessive amounts of water and putting her fingers in her mouth to induce vomiting. No recorded emesis since 03/25. Plan: Will limit access to water to 250ml at a time. May only bathe once per day after she has taken her meds, had breakfast and lunch. Assessment & Plan (04/01/2020 11:55 AM EARTH BORING MACHINE OPERATOR): Assessment: Has been drinking excessive amounts of water and putting her fingers in her mouth to induce vomiting. No recorded emesis since 03/25. Plan: Will limit access to water to 250ml at a time. May only bathe once per day after she has taken her meds, had breakfast and lunch. Assessment & Plan (03/24/2020 4:53 PM EARTH BORING MACHINE OPERATOR): Assessment: Has been drinking excessive amounts of water and putting her fingers in her mouth to induce vomiting. Plan: Will limit access to water to 250ml at a time. May only bathe once per day after she has taken her meds, had breakfast and lunch. Ovarian cyst 01/12/2020 03/19/2020 Assessment & Plan (03/15/2020 11:10 AM EARTH BORING MACHINE OPERATOR): Assessment: on ultrasound on R Plan: -Radiology recommended repeat imaging in 6 months for ovarian cysts Assessment & Plan (03/04/2020 1:41 PM EARTH BORING MACHINE OPERATOR): Assessment: on ultrasound on R Plan: -Radiology recommended repeat imaging in 6 months for ovarian cysts Assessment & Plan (03/04/2020 11:50 AM EARTH BORING MACHINE OPERATOR): Assessment: on ultrasound on R Plan: -Radiology recommended repeat imaging in 6 months for ovarian cysts Assessment & Plan (02/27/2020 9:58 AM EARTH BORING MACHINE OPERATOR): Assessment: on ultrasound on R Plan: -Radiology recommended repeat imaging in 6 months for ovarian cysts Assessment & Plan (01/28/2020 11:59 AM EARTH BORING MACHINE OPERATOR): Assessment: on ultrasound on R Plan: -Radiology recommended repeat imaging in 6 months for ovarian cysts Assessment & Plan (01/27/2020 3:52 PM EARTH BORING MACHINE OPERATOR): Assessment: on ultrasound on R Plan: -Radiology recommended repeat imaging in 6 months for ovarian cysts Assessment & Plan (01/26/2020 6:01 PM EARTH BORING MACHINE OPERATOR): Assessment: on ultrasound on R Plan: -Radiology recommended repeat imaging in 6 months for ovarian cysts Assessment & Plan (01/13/2020 2:33 PM EARTH BORING MACHINE OPERATOR): Assessment: on ultrasound on R Plan: -Radiology recommended repeat imaging in 6 months for ovarian cysts Assessment & Plan (01/12/2020 1:26 PM EARTH BORING MACHINE OPERATOR): Assessment: on ultrasound on R Plan: -Radiology [...] Travel 05/07/2024 10:00 AM CDT Office Visit [address] [id number] Ronel Thornton DO Anorexia (Primary Dx); Generalized anxiety disorder 04/29/2024 8:20 AM CDT Office Visit [address] [address] Ronel Thornton DO Anorexia (Primary Dx); Severe bulimia nervosa; Generalized anxiety disorder; Recurrent major depressive disorder, in full remission; PTSD (post-traumatic stress disorder); Borderline personality disorder 04/09/[address] [address] Ronel Thornton DO Appointment from Last 3 Months Immunizations Immunization Administration Dates Next Due [employer] primary monoval ent 12+ yr 0.3mL Purple [...] Recorded Patient Health Questionnaire-2 Score 0 05/22/2024 [facility] [place] [facility] - Occupational Stress [...] place to sleep or slept in a intermediate (including now)? No 04/24/2023 Comments No Sex and Gender Information Value Date Recorded Sex Assigned at Not on file Legal Sex Female 6:25 PM EARTH BORING MACHINE OPERATOR Gender Identity Not on file Sexual Orientation [...] Description 06/08/2024 1:20 PM CDT Office Visit [address] [address] Ronel Thornton DO [address] [place] [id number] 01/20/2025 8:20 AM EARTH BORING MACHINE OPERATOR Office Visit [address] [address] Ronel Thornton DO [address] [place] [address] Health Maintenance Due Date Last Done Comments HPV VACCINE (1 - 3-dose series) 2017 MENINGOCOCCAL (Group B) VACCINE SHARED DECISION-MAKING (1 of 2 - Standard) 2018 COVID-19 VACCINE ( - season) 2023 02/23/2021, 07/26/2020, 07/03/2020 DTAP/TDAP/TD [...] - 04/29/2024 6:09 PM CDT Performed at: [address] [facility] [address] [address], [place], [place] [id number] Director Traffic And Planning: Elizabeth Rangel [facility], Phone: [phone] us Ronel Thornton DO LAB - HEMATOLOGY ORDERABLES F inal Result [facility] ACCOUNT BILL [address] [place] [address] * (ABNORMAL) COMPREHENSIVE METABOLIC PANEL (04/29/2024 8:58 AM CDT) [facility] Glucose 77 70 - 99 mg/dL [facility] [...] - 04/29/2024 6:09 PM CDT Performed at: [address] [place] [address] [address] [place] [id number] Director Traffic And Planning: Elizabeth Rangel [facility], Phone: [phone] Ronel Thornton DO LAB - CHEMISTRY ORDERABLES Fi nal Result Performing Organization Address City/[facility]/ZIP Co de Phone Number [facility] ACCOUNT BILL [address] [place] [address] * MAGNESIUM BLOOD (04/29/2024 8:58 AM CDT) Magnesium 2.0 1.6 - 2.6 mg/dL [facility] ACCOUNT BILL Blood BLOOD SPECIMEN / Unknown 04/29/2024 8:58 AM CDT 04/29/2024 Narrative [facility] ACCOUNT BILL - 04/29/2024 6:09 PM CDT Performed at: [address] [place] [address] [address] [place] [id number] Director Traffic And Planning: Elizabeth Rangel [facility], Phone: [phone] Ronel Thornton DO LAB - CHEMISTRY ORDERABLES Fi nal Result [facility] ACCOUNT BILL [address] [place] [address] * LIPID PROFILE (04/29/2024 8:58 AM CDT) [...] - 04/29/2024 6:09 PM CDT Performed at: [address] [facility] [address] [place] [id number] Director Traffic And Planning: Elizabeth aRngel [facility], Phone: [phone] Ronel Thornton DO LAB - CHEMISTRY ORDERABLES Fi nal Result [facility] ACCOUNT BILL [address] [place] [address] * CT ELECTROCARDIOGRAM, COMPLETE (04/29/2024) Ronel Thornton DO CT - PROFESSIONAL SERVICES Ed ited Result - Final * (ABNORMAL) PAP CERVICAL CANCER SCREEN CT/NG/TV APT (11/29/2023 11:06 AM CDT) Age Gdln ACOG Testing 21-29 [facility] ACCOUNT BILL Comment: Performed at: - [facility] [address] [id number] Director Traffic And Planning: Meredith Gil MD, Phone: [phone] Performed at: - [facility] [id number] Director Traffic And Planning: Meredith Gil MD, Phone: [phone] Diagnosis Comment(A) [facility] ACCOUNT BILL Comment: EPITHELIAL [...] 11:06 AM CDT 11/29/2023 Comment:Cervix Release to mo t Narrative [facility] ACCOUNT BILL - 12/05/2023 5:09 PM CDT Performed at: [address] [id number] Director Traffic And Planning: Meredith Gil MD, Phone: [phone] Specimen Comment: [id number] Specimen Comment: Source.............Cervix Specimen Comment: No. of containers..01 ThinPrep Vial Nai Jurado MD LAB - PATHOLOGY/CYTOLOGY [place] Final Result [facility] ACCOUNT BILL [address] [place] [address] * HIV-1 HIV-2 ANTIBODY + HIV P24 [...] - 11/30/2023 10:10 AM CDT Performed at: [address] [place] [address], [place] [id number] Director Traffic And Planning: Karlos Huffman PhD, Phone: [phone] us Nai Jurado MD LAB - CHEMISTRY ORDERABLES Fi nal Result Performing Organization Address City/[facility] Co de Phone Number [facility] ACCOUNT BILL [address] [place] [address] * HEPATITIS C AB W/RFLX TO HCV RNA QN PCR (12/07/2021) Hepatitis C Antibody NON-REACTI VE NON-REACT KASIA [facility] Signal to Cut-Off 0.08 <1.00 [facility] Comment: HCV antibody was non-reactive. There is no laboratory evidence of HCV infection. In most cases, no further action is required. However, if recent HCV exposure is suspected, a test for HCV RNA (test code 96432) is suggested. For additional information please refer to http://education.[employer]/faq/PMV96a0 (This link is being provided for informational/ educational purposes only.) Test Performed at: [facility] [address] [place] [address] PURVI PABLO DO,MPH Blood BLOOD SPECIMEN / Unknown 12/07/2021 12/07/2021 10:47 AM CDT us Karrie Mack MD LAB - CHEMISTRY ORDERABLES Final Result Performing Organization Address City/[facility] Co de Phone Number QUEST [address] [place] [address] from Last 3 Months or Most Recently Relevant to Health Maintenance Insurance [facility] [place] [address] Advance Directives * Full Code (Latest Code [...] 4:54 PM 06/22/2022 2:44 PM Care Teams Histology Technician Relationship Specialty Start Date End Date Ronel Thornton DO [address] [place] [address] PCP - General Family Medicine 03/18/23 Ronel Thornton DO [address] [place] [address] PCP - Attributed-[facility] EHP STL 04/12/23
--- OUTSIDE RECORDS SUMMARY | 2024-06-06 23:22 | XMS_ITS | Encounter Summary ---
Author Organization [facility] Address [address] [facility] [place] [address] Care Team Providers Care Inside Solar Sales Consultant Name Role Phone Mellissa Jiménez MD Primary Care Provider [phone] Ronel Thornton DO Primary Care Provider Daphnie Gillespie MD Unavailable Juliana Peralta FOOD AND BEVERAGE CASHIER Unavailable [phone] Juliana Peralta FOOD AND BEVERAGE CASHIER Unavailable [phone] Ronel Thornton DO Unavailable Kenyatta Taylor RN Unavailable Tiago Lew Unavailable [phone] Reason for Visit * Reason Onset Date Comments Forms/questionnaires 01/23/2021 Encounter Details Date Type Department Care Team (Late st Contact Info) Description 01/23/2021 Telephone [facility] Pediatrics - Surgery [address] [place] [address] Daphnie Gillespie MD [address] [place] [address] Forms/questionnaires Social History Tobacco Use Types [...] on file Legal Sex Female 6:25 PM ORTHODONTIST ASSISTANT Gender Identity Not on file Sexual Orientation Not on file COVID-19 Exposure Response Date Recorded In the last month, have you been in contact with someone who was confirmed or suspected to have Coronavirus / COVID-19? No / Unsure 01/24/2021 11:47 AM ORTHODONTIST ASSISTANT documented as of this encounter Functional [...] wanted to know if it was received. ODONTIST ASSISTANT documented in this encounter Plan of Treatment Upcoming Encounters Date Type Department Care Team (Late st Contact Info) Description 06/08/2024 1:20 PM CDT Office Visit [address] [address] Ronel Thornton DO [address] [place] [address] 01/20/2025 8:20 AM ORTHODONTIST ASSISTANT Office Visit [address] [address] Ronel Thornton DO [address] [place] [address] documented as of this encounter Visit Diagnoses Not on filedocumented in this encounter Additional Health Concerns Infection Onset Date Last Indicated Resolved Time COVID-19 Under Investigation 08/10/2021 08/10/2021 08/10/2021 2:59 AM CDT documented as of this encounter Care Teams Inside Solar Sales Consultant Relationship Specialty Start Date End Date Mellissa Jiménez MD [address] [place] [address] [place] [address] PCP - General Family Medicine 04/25/20 03/17/23 Ronel Thornton DO [address] [place], [place] [address], [place] [address] PCP - General Family Medicine 03/18/23 Daphnie Gillespie MD [facility] [place] [address] PCP - Attributed-[facility] EHP STL 02/11/23 04/11/23 Ronel Thornton DO [address] [place] [id number] PCP - Attributed-[facility] EHP STL 04/12/23 Juliana Peralta MSW Outpatient Draughtsman Care Management 04/24/2304/11 Juliana Peralta MSW Outpatient Draughtsman Care Management 04/30/2304/12 Kenyatta Taylor RN [address] [address] Clean Out Driller HelperManager Of Warehouse 09/02/23 10/04/23 Tiago Lew Care Coordination Specialist Care Management 09/26/23 11/10/23 documented as of this encounter
--- OUTSIDE RECORDS SUMMARY | 2024-06-06 23:22 | XMS_ITS | Encounter Summary ---
Author Organization [facility] Address [address] [facility] [place] [address] Care Team Providers Care Transformation Analyst Name Role Phone Mellissa Jiménez MD Primary Care Provider [phone] Ronel Thornton DO Primary Care Provider [phone] Daphnie Gillespie MD Unavailable Juliana Peralta PE ELECTRICAL ENGINEER Unavailable [phone] Juliana Peralta PE ELECTRICAL ENGINEER Unavailable [phone] Ronel Thornton DO Unavailable [phone] Kenyatta Taylor RN Unavailable [phone] Tiago Lew Unavailable [phone] Reason for Visit * Reason Onset Date Comments Eating disorder 08/04/2020 Encounter Details Date Type Department Care Team (Late st Contact Info) Description 08/04/2020 Telephone [facility] Shuttle Bus Driver [address] [place] [address] Flor Martinez, END STAPLER Eating disorder Social History Tobacco Use Types Packs/Day Years Used Date Smoking Tobacco: Never Smokeless Tobacco: Never Alcohol Use Standard Drinks/Week Comments No 0 (1 standard drink = 0.6 oz pur e alcohol) Comments No Sex and Gender Information Value Date Recorded Sex Assigned at Not on file Legal Sex Female 6:25 PM DRUM MAKER Gender Identity Not on file Sexual Orientation [...] phone calls with Kenyatta's mother Esperanza and [facility] this week regarding Kenyatta's relapse, and mother's belief that she needs to be admitted to [facility]. Spoke with mother again this a.m, and they have a phone intake assessment with [facility] next SaturdayAugust 08. documented in this encounter Plan of Treatment Upcoming Encounters Date Type Department Care Team (Late st Contact Info) Description 06/08/2024 1:20 PM CDT Office Visit [facility] - Family Medicine [address] [place] [address] Ronel Thornton DO [address] [place] [address] 01/20/2025 8:20 AM DRUM MAKER Office Visit [facility] - Family Medicine [address] [place] [phone] [place] [address] [place] [address] documented as of this encounter Visit Diagnoses Not on filedocumented in this encounter Additional Health Concerns Infection Onset Date Last Indicated Resolved Time COVID-19 Under Investigation 08/10/2021 08/10/2021 08/10/2021 2:59 AM CDT documented as of this encounter Care Teams Transformation Analyst Relationship Specialty Start Date End Date Mellissa Jiménez MD [address] [place] [address] [place] [address] PCP - General Family Medicine 04/25/20 03/17/23 Ronel Thornton DO [address] [place] [address] PCP - General Family Medicine 03/18/23 Daphnie Gillespie MD [address] [place] [address] PCP - Attributed-[facility] EHP STL 02/11/23 04/11/23 Ronel Thornton DO [address] [place] [id number] PCP - Attributed-[facility] EHP STL 04/12/23 Juliana Peralta MSW Outpatient Gamewell Operator Care Management 04/24/2304/11 Juliana Peralta MSW Outpatient Gamewell Operator Care Management 04/30/2304/12 Kenyatta Taylor, RN [address] [address] Recycling Collections DriverMining Consultant 09/02/23 10/04/23 Tiago Lew Care Coordination Specialist Care Management 09/26/23 11/10/23 documented as of this encounter
--- OUTSIDE RECORDS SUMMARY | 2024-06-06 23:22 | XMS_ITS | Clinical Summary ---
Author Organization [facility] Address [address] [place] [address] Phone Care Team Providers Care Vacuum Conditioner Operator Name Role Phone Mellissa Jiménez MD [...] on file Legal Sex Female 10:44 PM SWINGING CUT OFF SAW OPERATOR Gender Identity Not on file Sexual [...] 52.2 kg (115 lb) 04/20/2023 2:30 AM SWINGING CUT OFF SAW OPERATOR Height 152.4 cm (5') 04/20/2023 2:30 AM SWINGING CUT OFF SAW OPERATOR Body Mass Index 22.46 04/20/2023 2:30 AM SWINGING CUT OFF SAW OPERATOR Plan of Treatment Health Maintenance Due Date [...] 02/22/2004, 06/09/2003, 02/22/2003, Additional history exists [place] [address] [address] Advance Directives For more information, please contact: [phone] * Full Code (Latest Code Status on File) Date Activated Date Inactivated Comments 04/20/2023 2:32 AM 04/21/2023 4:11 PM Care Teams Vacuum Conditioner Operator Relationship Specialty Start Date End Date Mellissa Jiménez MD [address] [place] [address] [place] [address] PCP - General Family Practice 04/20/23
[2024-06-06 23:46] VITALS: BP 120/88; PULSE 121; RESP 20; TEMP 36.3; O2SAT 98
[2024-06-06 23:47] LABS: Glucose Point of Care 72 mg/dl (65-105)
--- NOTE | 2024-06-07 01:26 | PC.NURSE ---
Patient and her visitor come to desk and state we are just going to leave and go to a different hospital, I understand you guys are busy. This RN apologized for the wait times. Patient and family informed of benefits of staying for evaluation and risks of leaving before being seen by a provider. Patient and her visitor verbalized understanding of risks and benefits. Patient ambulates out of the ED with a steady gait with belongings in hand and visitor by her side. Patient marked as left without being seen, triaged.
--- OUTSIDE RECORDS SUMMARY | 2024-06-07 01:32 | XMS_ITS | Encounter Summary ---
Author Organization [facility] Address [address] [facility] [place] [address] Care Team Providers Care Shot Blaster Name Role Phone Mellissa Jiménez MD Primary Care Provider [phone] Ronel Thornton DO Primary Care Provider [phone] Daphnie Gillespie MD Unavailable Juliana Peralta PUBLICATIONS EDITOR Unavailable [phone] Juliana Peralta PUBLICATIONS EDITOR Unavailable [phone] Ronel Thornton DO Unavailable Kenyatta Taylor RN Unavailable Tiago Lew Unavailable [phone] Reason for Visit * Reason Onset Date Comments Appointment 10/05/2020 Contraceptive management 10/05/2020 Encounter Details Date Type Department Care Team (Late st Contact Info) Description 10/05/2020 Telephone [facility] [address] [place] [address] Karrie Mack MD [address] [place] [address] Appointment; Contraceptive management Social History Tobacco Use Types Packs/Day Years Used Date Smoking Tobacco: Never Smokeless Tobacco: Never Alcohol Use Standard Drinks/Week Comments No 0 (1 standard drink = 0.6 oz pur e alcohol) Comments No Sex and Gender Information Value Date Recorded Sex Assigned at Not on file Legal Sex Female 6:25 PM BEET END SUPERVISOR Gender Identity Not on file Sexual Orientation [...] the office yet to get scheduled. CB# [phone] documented in this encounter Plan of Treatment Upcoming Encounters Date Type Department Care Team (Late st Contact Info) Description 06/08/2024 1:20 PM CDT Office Visit [address] [address] Ronel Thornton DO [address] [place] [address] 01/20/2025 8:20 AM BEET END SUPERVISOR Office Visit [address] [address] Ronel Thornton DO [address] [place] [address] documented as of this encounter Visit Diagnoses Not on filedocumented in this encounter Additional Health Concerns Infection Onset Date Last Indicated Resolved Time COVID-19 Under Investigation 08/10/2021 08/10/2021 08/10/2021 2:59 AM CDT documented as of this encounter Care Teams Shot Blaster Relationship Specialty Start Date End Date Mellissa Jiménez MD [address] [place] [address] [place] [address] PCP - General Family Medicine 04/25/20 03/17/23 Ronel Thornton DO [address] [place] [address] PCP - General Family Medicine 03/18/23 Daphnie Gillespie MD [address] [place] [address] PCP - Attributed-[facility] EHP STL 02/11/23 04/11/23 Ronel Thornton DO [address] [place] [address] PCP - Attributed-[facility] EHP STL 04/12/23 Juliana Peralta MSW Outpatient Adjunct Political Science Instructor Care Management 04/24/2304/11 Juliana Peralta MSW Outpatient Adjunct Political Science Instructor Care Management 04/30/2304/12 Kenyatta Taylor RN [address] [address] Airport AttendantAssistant County Engineer 09/02/23 10/04/23 Tiago Lew Care Coordination Specialist Care Management 09/26/23 11/10/23 documented as of this encounter
--- OUTSIDE RECORDS SUMMARY | 2024-06-07 01:32 | XMS_ITS | Encounter Summary ---
Author Organization [facility] Address [address] [facility] [place] [address] Care Team Providers Care Marine Plumber Name Role Phone Mellissa Jiménez MD Primary Care Provider [phone] Ronel Thornton DO Primary Care Provider Daphnie Gillespie MD Unavailable Juliana Peralta TIMBER SKIDDER Unavailable [phone] Juliana Peralta TIMBER SKIDDER Unavailable [phone] Ronel Thornton DO Unavailable Kenyatta Taylor RN Unavailable [phone] Tiago Lew Unavailable [phone] Reason for Visit * Reason Onset Date Comments Forms/questionnaires 01/23/2021 Encounter Details Date Type Department Care Team (Late st Contact Info) Description 01/23/2021 Telephone [facility] Pediatrics - Surgery [address] [place] [address] Daphnie Gillespie MD [address] [place] [phone] Forms/questionnaires Social History Tobacco Use Types [...] on file Legal Sex Female 6:25 PM SOIL SCIENTIST Gender Identity Not on file Sexual Orientation Not on file COVID-19 Exposure Response Date Recorded In the last month, have you been in contact with someone who was confirmed or suspected to have Coronavirus / COVID-19? No / Unsure 01/24/2021 11:47 AM SOIL SCIENTIST documented as of this encounter Functional Status [...] wanted to know if it was received. SCIENTIST documented in this encounter Plan of Treatment Upcoming Encounters Date Type Department Care Team (Late st Contact Info) Description 06/08/2024 1:20 PM CDT Office Visit [address] [address] Ronel Thornton DO [address] [place] [address] 01/20/2025 8:20 AM SOIL SCIENTIST Office Visit [address] [address] Ronel Thornton DO [address] [place] [address] documented as of this encounter Visit Diagnoses Not on filedocumented in this encounter Additional Health Concerns Infection Onset Date Last Indicated Resolved Time COVID-19 Under Investigation 08/10/2021 08/10/2021 08/10/2021 2:59 AM CDT documented as of this encounter Care Teams Marine Plumber Relationship Specialty Start Date End Date Mellissa Jiménez MD [address] [place] [address] [place] [address] PCP - General Family Medicine 04/25/20 03/17/23 Ronel Thornton DO [address] [place], [place] [address] [address] PCP - General Family Medicine 03/18/23 Daphnie Gillespie MD [facility] [place] [address] PCP - Attributed-[facility] EHP STL 02/11/23 04/11/23 Ronel Thornton DO [address] [place] [id number] PCP - Attributed-[facility] EHP STL 04/12/23 Juliana Peralta MSW Outpatient Medical Records Field Technician Care Management 04/24/2304/11 Juliana Peralta MSW Outpatient Medical Records Field Technician Care Management 04/30/2304/12 Kenyatta Taylor RN [address] [address] Lacquer ShaderPlant Chief 09/02/23 10/04/23 Tiago Lew Care Coordination Specialist Care Management 09/26/23 11/10/23 documented as of this encounter
--- OUTSIDE RECORDS SUMMARY | 2024-06-07 01:32 | XMS_ITS | Encounter Summary ---
Author Organization [facility] Address [address] [place] [address] Care Team Providers Care Chief Analytics Officer Name Role Phone Mellissa Jiménez MD Primary Care Provider [phone] Ronel Thornton DO Primary Care Provider Daphnie Gillespie MD Unavailable Juliana Peralta HVAC SPECIALIST Unavailable [phone] Juliana Peralta Unavailable [phone] Ronel Thornton DO Unavailable [phone] Kenyatta Taylor RN Unavailable [phone] Tiago Lew Unavailable [phone] Encounter Details Date Type Department Care Team (Late st Contact Info) Description 07/28/2020 Telephone [facility] Pediatrics - Pulmonology [address] [place] [address] Bessie Erwin Social History Tobacco Use Types Packs/Day Years Used Date Smoking Tobacco: Never Smokeless Tobacco: Never Alcohol Use Standard Drinks/Week Comments No 0 (1 standard drink = 0.6 oz pur e alcohol) Comments No Sex and Gender Information Value Date Recorded Sex Assigned at Not on file Legal Sex Female 6:25 PM INSTRUMENTATION SPECIALIST Gender Identity Not on file Sexual Orientation [...] PM CDT Mom called regarding not eating [phone] Marla Gillespie documented in this encounter Plan of Treatment Upcoming Encounters Date Type Department Care Team (Late st Contact Info) Description 06/08/2024 1:20 PM CDT Office Visit [address] [address] Ronel Thornton DO [address] [place] [address] 01/20/2025 8:20 AM INSTRUMENTATION SPECIALIST Office Visit [address] [address] Ronel Thornton DO [address] [place] [address] documented as of this encounter Visit Diagnoses Not on filedocumented in this encounter Additional Health Concerns Infection Onset Date Last Indicated Resolved Time COVID-19 Under Investigation 08/10/2021 08/10/2021 08/10/2021 2:59 AM CDT documented as of this encounter Care Teams Chief Analytics Officer Relationship Specialty Start Date End Date Mellissa Jiménez MD [address] [place] [address] [place] [address] PCP - General Family Medicine 04/25/20 03/17/23 Ronel Thornton DO [address] [place] [address] PCP - General Family Medicine 03/18/23 Daphnie Gillespie MD [address] [place] [address] PCP - Attributed-[facility] EHP STL 02/11/23 04/11/23 Ronel Thornton DO [address] [place] [address] PCP - Attributed-[facility] EHP STL 04/12/23 Juliana Peralta MSW Outpatient Dope Worker Care Management 04/24/2304/11 Juliana Peralta MSW Outpatient Dope Worker Care Management 04/30/2304/12 Kenyatta Taylor RN [address] [address] Early Childhood Education CoordinatorAir Intelligence Specialist 09/02/23 10/04/23 Tiago Lew Care Coordination Specialist Care Management 09/26/23 11/10/23 documented as of this encounter
--- OUTSIDE RECORDS SUMMARY | 2024-06-07 01:32 | XMS_ITS | Clinical Summary ---
Author Organization [facility] Address [address] [place] [address] Phone Care Team Providers Care Snuff Maker Name Role Phone Mellissa Jiménez MD Primary [...] on file Legal Sex Female 10:44 PM RIB CHOPPER Gender Identity Not on file Sexual Orientation [...] 52.2 kg (115 lb) 04/20/2023 2:30 AM RIB CHOPPER Height 152.4 cm (5') 04/20/2023 2:30 AM RIB CHOPPER Body Mass Index 22.46 04/20/2023 2:30 AM RIB CHOPPER Plan of Treatment Health Maintenance Due Date [...] 02/22/2004, 06/09/2003, 02/22/2003, Additional history exists [place] [address] Advance Directives For more information, please contact: [phone] * Full Code (Latest Code Status on File) Date Activated Date Inactivated Comments 04/20/2023 2:32 AM 04/21/2023 4:11 PM Care Teams Snuff Maker Relationship Specialty Start Date End Date Mellissa Jiménez MD [address] [place] [address] [place] [address] PCP - General Family Practice 04/20/23
--- OUTSIDE RECORDS SUMMARY | 2024-06-07 01:32 | XMS_ITS | Encounter Summary ---
Author Organization [facility] Address [address] [facility] [place] [address] Care Team Providers Care Arts And Crafts Teacher Name Role Phone Mellissa Jiménez MD Primary Care Provider [phone] Ronel Thornton DO Primary Care Provider [phone] Daphnie Gillespie MD Unavailable Juliana Peralta TAPE LIBRARIAN Unavailable [phone] Juliana Peralta TAPE LIBRARIAN Unavailable [phone] Ronel Thornton DO Unavailable [phone] Kenyatta Taylor RN Unavailable [phone] Tiago Lew Unavailable [phone] Reason for Visit * Reason Onset Date Comments Eating disorder 08/04/2020 Encounter Details Date Type Department Care Team (Late st Contact Info) Description 08/04/2020 Telephone [facility] Precision Inspector [address] [place] [address] Flor Martinez, CARDIAC CATHETERIZATION TECHNICIAN Eating disorder Social History Tobacco Use Types Packs/Day Years Used Date Smoking Tobacco: Never Smokeless Tobacco: Never Alcohol Use Standard Drinks/Week Comments No 0 (1 standard drink = 0.6 oz pur e alcohol) Comments No Sex and Gender Information Value Date Recorded Sex Assigned at Not on file Legal Sex Female 6:25 PM FITTER ARMAMENT Gender Identity Not on file Sexual Orientation [...] phone calls with Kenyatta's mother Esperanza and [facility] this week regarding Kenyatta's relapse, and mother's belief that she needs to be admitted to [facility]. Spoke with mother again this a.m, and they have a phone intake assessment with [facility] next SaturdayAugust 08. documented in this encounter Plan of Treatment Upcoming Encounters Date Type Department Care Team (Late st Contact Info) Description 06/08/2024 1:20 PM CDT Office Visit [facility] - Family Medicine [address] [place] [address] Ronel Thornton DO [address] [place] [address] 01/20/2025 8:20 AM FITTER ARMAMENT Office Visit [facility] - Family Medicine [address] [place] [id number] [place] [address] [place] [address] documented as of this encounter Visit Diagnoses Not on filedocumented in this encounter Additional Health Concerns Infection Onset Date Last Indicated Resolved Time COVID-19 Under Investigation 08/10/2021 08/10/2021 08/10/2021 2:59 AM CDT documented as of this encounter Care Teams Arts And Crafts Teacher Relationship Specialty Start Date End Date Mellissa Jiménez MD [address] [place] [address] [place] [address] PCP - General Family Medicine 04/25/20 03/17/23 Ronel Thornton DO [address] [place] [address] PCP - General Family Medicine 03/18/23 Daphnie Gillespie MD [address] [place] [address] PCP - Attributed-[facility] EHP STL 02/11/23 04/11/23 Ronel Thornton DO [address] [place] [id number] PCP - Attributed-[facility] EHP STL 04/12/23 Juliana Peralta MSW Outpatient Dimensional Integration Engineer Care Management 04/24/2304/11 Juliana Peralta MSW Outpatient Dimensional Integration Engineer Care Management 04/30/2304/12 Kenyatta Taylor, RN [address] [address] Ball Fringe Machine OperatorCattle Care Worker 09/02/23 10/04/23 Tiago Lew Care Coordination Specialist Care Management 09/26/23 11/10/23 documented as of this encounter
--- OUTSIDE RECORDS SUMMARY | 2024-06-07 01:32 | XMS_ITS | Clinical Summary ---
Author Organization [facility] Address [address] [place] [address] Care Team Providers Care Surgical Services Tech Name Role Phone Ronel Thornton DO Primary Care Provider [phone] Ronel Thornton DO Unavailable [phone] Source Comments [facility],non-owned Affiliates and Associated Physician Practices is amultiple site organization consisting of ambulatory clinics and hospital sitesin [place], [place], [place] and [place]. This disclosure is being madepursuant to the Care Everywhere program and may not contain all information available regarding this patient. Last updated 17.[facility] Allergies No known active allergies Medications * [...] 01/18/2020 Assessment & Plan (01/08/2021 3:06 PM [employer]): Assessment: Major depressive disorder, generalized anxiety disorder and substance abuse disorder. Plan: - klonopin and neurontin are all habit forming, concerns they are addictive, plan to discuss care home goal of weaning as outpatient - must stop all alcohol and MJ - Increased Prozac to 40 - Increased zyprexa to 15 - Melatonin 6mg QHS for sleep - avoid narcotics - taper off zyprexa as outpatient per psychiatry recs Assessment & Plan (01/07/2021 4:50 PM [employer]): Assessment: Major depressive disorder, generalized anxiety disorder and substance abuse disorder. Plan: - klonopin and neurontin are all habit forming, concerns they are addictive, plan to discuss care home goal of weaning as outpatient - must stop all alcohol and MJ - Increased Prozac to 40 - Increased zyprexa to 15 - Melatonin 6mg QHS for sleep - avoid narcotics - taper off zyprexa as outpatient per psychiatry recs Assessment & Plan (01/06/2021 5:55 PM [employer]): Assessment: Major depressive disorder, generalized anxiety disorder and substance abuse disorder. 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 Assessment & Plan (04/07/2020 6:45 PM [employer]): Assessment: Hx of major depressive disorder and generalized anxiety disorder. Pt has been seen by psychiatry and psychology, now improved since starting/optimizing zyprexa QHS, clonazepam TID, and prozac QD. Plan: - Prozac 30 mg QD (dose of 30 mg started on 03/09/20, Prozac initially began 02/07) - Zyprexa 5 mg QHS - Klonopin 0.5mg TID Assessment & Plan (04/06/2020 3:54 PM [employer]): Assessment: Hx of major depressive disorder and [...] TID Assessment & Plan (04/05/2020 10:49 AM [employer]): Assessment: Hx of major depressive disorder and [...] TID Assessment & Plan (04/04/2020 10:23 AM [employer]): Assessment: Hx of major depressive disorder and [...] TID Assessment & Plan (04/03/2020 6:30 PM [employer]): Assessment: Hx of major depressive disorder and [...] TID Assessment & Plan (04/01/2020 11:15 AM [employer]): Assessment: Hx of major depressive disorder and [...] dose) Assessment & Plan (03/31/2020 10:07 AM [employer]): Assessment: Hx of major depressive disorder and [...] dose) Assessment & Plan (03/30/2020 2:24 PM [employer]): Assessment: Hx of major depressive disorder and [...] dose) Assessment & Plan (03/29/2020 6:50 AM [employer]): Assessment: Hx of major depressive disorder and [...] dose) Assessment & Plan (03/27/2020 10:30 AM [employer]): Assessment: Hx of major depressive disorder and generalized anxiety disorder. Pt seen by psychiatry on admission and was started elavil, but continued to have anxiety. Elavil was discontinued due to persistent tachycardia and hypotension. [facility], she was started on [...] dose) Assessment & Plan (03/26/2020 11:15 AM [employer]): Assessment: Hx of major depressive disorder and [...] dose) Assessment & Plan (03/25/2020 8:58 AM [employer]): Assessment: Hx of major depressive disorder and [...] dose) Assessment & Plan (03/24/2020 6:44 AM [employer]): Assessment: Hx of major depressive disorder and [...] dose) Assessment & Plan (03/23/2020 12:19 PM [employer]): Assessment: Hx of major depressive disorder and [...] dose) Assessment & Plan (03/22/2020 10:47 AM [employer]): Assessment: Hx of major depressive disorder and [...] recommendations) Assessment & Plan (03/21/2020 3:11 PM [employer]): Assessment: Hx of major depressive disorder and [...] mg. Assessment & Plan (03/20/2020 10:31 AM [employer]): Assessment: Hx of major depressive disorder and generalized anxiety disorder. Pt seen by psychiatry on admission and was started elavil, but continued to have anxiety. Elavil was discontinued due to persistent tachycardia and hypotension. Based [facility], she was started on [...] 03/21. Assessment & Plan (03/19/2020 10:38 AM [employer]): Assessment: Hx of major depressive disorder and [...] withdrawal Assessment & Plan (03/18/2020 12:58 PM [employer]): Assessment: Hx of major depressive disorder and [...] anxiety Assessment & Plan (03/17/2020 10:33 AM [employer]): Assessment: Hx of major depressive disorder and [...] appreciated Assessment & Plan (03/16/2020 2:24 PM [employer]): Assessment: Hx of major depressive disorder and [...] recommendations Assessment & Plan (03/15/2020 11:11 AM [employer]): Assessment: Hx of major depressive disorder and [...] anxiety Assessment & Plan (03/14/2020 6:28 AM [employer]): Assessment: Hx of major depressive disorder and [...] anxiety Assessment & Plan (03/13/2020 6:28 AM [employer]): Assessment: Hx of major depressive disorder and [...] anxiety Assessment & Plan (03/12/2020 11:35 AM [employer]): Assessment: Hx of major depressive disorder and [...] anxiety Assessment & Plan (03/11/2020 12:43 PM [employer]): Assessment: Hx of major depressive disorder and [...] anxiety Assessment & Plan (03/10/2020 6:11 AM [employer]): Assessment: Hx of major depressive disorder and [...] anxiety Assessment & Plan (03/09/2020 6:24 AM [employer]): Assessment: Hx of major depressive disorder and [...] anxiety Assessment & Plan (03/08/2020 10:51 AM [employer]): Assessment: Hx of major depressive disorder and [...] anxiety Assessment & Plan (03/07/2020 9:15 AM [employer]): Assessment: Hx of major depressive disorder and [...] recommendations -Develop daily schedule with assistance of early childhood associate teacher-Alma Assessment & Plan (03/06/2020 10:09 AM [employer]): Assessment: Hx of major depressive disorder and [...] anxiety Assessment & Plan (03/05/2020 9:56 AM [employer]): Assessment: Hx of major depressive disorder and [...] anxiety Assessment & Plan (03/04/2020 12:58 PM [employer]): Assessment: Hx of major depressive disorder and [...] anxiety Assessment & Plan (03/03/2020 3:16 PM [employer]): Assessment: Hx of major depressive disorder and [...] anxiety Assessment & Plan (03/01/2020 12:04 PM [employer]): Assessment: Hx of major depressive disorder and [...] anxiety Assessment & Plan (02/29/2020 12:53 PM [employer]): Assessment: Hx of major depressive disorder and [...] anxiety Assessment & Plan (02/28/2020 9:22 AM [employer]): Assessment: Hx of major depressive disorder and [...] anxiety Assessment & Plan (02/27/2020 10:27 AM [employer]): Assessment: Hx of major depressive disorder and [...] negative Assessment & Plan (02/26/2020 11:12 AM [employer]): Assessment: Hx of major depressive disorder and [...] pending Assessment & Plan (02/25/2020 9:33 AM [employer]): Assessment: Hx of major depressive disorder and [...] pending Assessment & Plan (02/24/2020 6:51 AM [employer]): Assessment: Hx of major depressive disorder and [...] pending Assessment & Plan (02/23/2020 10:19 AM [employer]): Assessment: Hx of major depressive disorder and [...] pending Assessment & Plan (02/22/2020 11:07 AM [employer]): Assessment: Hx of major depressive disorder and [...] QHS Assessment & Plan (02/21/2020 10:54 AM [employer]): Assessment: History of major depressive disorder and [...] tablet Assessment & Plan (02/20/2020 11:33 AM [employer]): Assessment: History of major depressive disorder and [...] tablet Assessment & Plan (02/19/2020 3:05 PM [employer]): Assessment: History of major depressive disorder and [...] tablet Assessment & Plan (02/18/2020 10:13 AM [employer]): Assessment: History of major depressive disorder and [...] tablet Assessment & Plan (02/17/2020 12:26 PM [employer]): Assessment: History of major depressive disorder and [...] tablet Assessment & Plan (02/16/2020 1:14 PM [employer]): Assessment: History of major depressive disorder and [...] tablet Assessment & Plan (02/15/2020 12:31 PM [employer]): Assessment: History of major depressive disorder and [...] tablet Assessment & Plan (02/14/2020 2:24 PM [employer]): Assessment: History of major depressive disorder and [...] tablet Assessment & Plan (02/13/2020 12:00 PM [employer]): Assessment: History of major depressive disorder and [...] tablet Assessment & Plan (02/12/2020 11:20 AM [employer]): Assessment: History of major depressive disorder and [...] tablet Assessment & Plan (02/11/2020 11:54 AM [employer]): Assessment: History of major depressive disorder and [...] tablet Assessment & Plan (02/10/2020 12:09 PM [employer]): Assessment: History of major depressive disorder and [...] tablet Assessment & Plan (02/09/2020 11:50 AM [employer]): Assessment: History of major depressive disorder and [...] [place] Assessment & Plan (02/08/2020 12:54 PM [employer]): Assessment: History of major depressive disorder and [...] [place] Assessment & Plan (02/07/2020 11:47 AM [employer]): Assessment: History of major depressive disorder and [...] [place] Assessment & Plan (02/06/2020 8:12 AM [employer]): Assessment: History of major depressive disorder and [...] [place] Assessment & Plan (02/05/2020 9:12 AM [employer]): Assessment: History of major depressive disorder and [...] [place] Assessment & Plan (02/04/2020 12:43 PM [employer]): Assessment: History of major depressive disorder and [...] [place] Assessment & Plan (02/03/2020 2:28 PM [employer]): Assessment: History of major depressive disorder and [...] [place] Assessment & Plan (02/02/2020 4:02 PM [employer]): Assessment: History of major depressive disorder and [...] [place] Assessment & Plan (02/01/2020 12:12 PM [employer]): Assessment: History of major depressive disorder and [...] [place] Assessment & Plan (01/31/2020 1:04 PM [employer]): Assessment: History of major depressive disorder and [...] [place] Assessment & Plan (01/30/2020 10:30 AM [employer]): Assessment: History of major depressive disorder and [...] [place] Assessment & Plan (01/29/2020 9:40 PM [employer]): Assessment: History of major depressive disorder and [...] [place] Assessment & Plan (01/28/2020 11:59 AM [employer]): Assessment: History of major depressive disorder and [...] lunch Assessment & Plan (01/27/2020 3:57 PM [employer]): Assessment: History of major depressive disorder and [...] lunch Assessment & Plan (01/26/2020 6:01 PM [employer]): Assessment: History of major depressive disorder and [...] [place] Assessment & Plan (01/25/2020 2:56 PM [employer]): Assessment: History of major depressive disorder and [...] PO. Assessment & Plan (01/24/2020 8:11 AM [employer]): Assessment: History of major depressive disorder and [...] (02/22/20) Assessment & Plan (01/23/2020 7:09 AM [employer]): Assessment: History of major depressive disorder and [...] (02/22/20) Assessment & Plan (01/22/2020 7:52 AM [employer]): Assessment: History of major depressive disorder and [...] (02/22/20) Assessment & Plan (01/21/2020 7:40 AM [employer]): Assessment: History of major depressive disorder and [...] (02/22/20) Assessment & Plan (01/20/2020 7:36 AM [employer]): Assessment: History of major depressive disorder and [...] (02/22/20) Assessment & Plan (01/19/2020 7:22 AM [employer]): Assessment: History of major depressive disorder and [...] (02/22/20) Assessment & Plan (01/18/2020 4:35 PM [employer]): Assessment: History of major depressive disorder and [...] range. Assessment & Plan (04/08/2020 1:31 PM [employer]): Assessment: 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, SMA [...] PT Assessment & Plan (04/07/2020 2:52 PM [employer]): Assessment: 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, SMA [...] PT Assessment & Plan (04/07/2020 6:44 PM [employer]): Assessment: Marlee is a 19 year old [...] follow up with adolescent medicine on 04/18, [facility] on 05/02, and and scheduling Psych intake visit SOCIAL: - General medicine team spoke with and updated mother on 04/06 LABS: daily urine spec gravity, BMP/Mg/Phos Q Assessment & Plan (04/06/2020 6:45 PM [employer]): Assessment: Marlee is a 19 year old [...] / Assessment & Plan (04/05/2020 3:22 PM [employer]): Assessment: 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, SMA [...] PT Assessment & Plan (04/05/2020 10:49 AM [employer]): Assessment: Marlee is a 19 year old [...] /Th Assessment & Plan (04/04/2020 3:59 PM [employer]): Assessment: 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, SMA [...] daily Assessment & Plan (04/04/2020 10:21 AM [employer]): Assessment: Marlee is a 19 year old [...] T/Th Assessment & Plan (04/03/2020 12:59 PM [employer]): Assessment: Marlee is a 19 year old [...] daily Assessment & Plan (04/02/2020 4:19 PM [employer]): Assessment: Marlee is a 19 year old [...] daily Assessment & Plan (04/01/2020 11:55 AM [employer]): Assessment: 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 and [...] daily Assessment & Plan (04/01/2020 11:15 AM [employer]): Assessment: Marlee is a 19 year old [...] daily Assessment & Plan (03/31/2020 12:05 PM [employer]): Assessment: 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 and [...] daily Assessment & Plan (03/31/2020 10:06 AM [employer]): Assessment: Marlee is a 19 year old [...] allowed in room. May have water from [facility] cup. Oral fluids limited to 250 mL [...] daily Assessment & Plan (03/30/2020 2:24 PM [employer]): Assessment: Marlee is a 19 year old [...] daily Assessment & Plan (03/29/2020 10:40 AM [employer]): Assessment: Marlee is a 19 year old [...] allowed in room. May have water from [employer] cup. Oral fluids limited to 250 mL [...] daily Assessment & Plan (03/28/2020 12:29 PM [employer]): Assessment: Marlee is a 19 year old [...] daily Assessment & Plan (03/27/2020 10:34 AM [employer]): Assessment: Marlee is a 19 year old [...] night 03/27: Increase to 50 mL/hr tonight. [facility] is aware of increase but did [...] allowed in room. May have water from [employer] cup. Oral fluids limited to 250 mL [...] daily Assessment & Plan (03/26/2020 11:20 AM [employer]): Assessment: Marlee is a 19 year old [...] daily Assessment & Plan (03/25/2020 12:30 PM [employer]): Assessment: Marlee is a 19 year old [...] daily Assessment & Plan (03/24/2020 5:02 PM [employer]): Assessment: 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 and [...] anxiety Assessment & Plan (03/24/2020 11:19 AM [employer]): Assessment: Marlee is a 19 year old [...] daily Assessment & Plan (03/23/2020 12:20 PM [employer]): Assessment: Marlee is a 19 year old [...] daily Assessment & Plan (03/22/2020 12:20 PM [employer]): Assessment: Marlee is a 19 year old [...] daily Assessment & Plan (03/21/2020 3:10 PM [employer]): Assessment: Marlee is a 19 year old [...] 03/15/2020. Assessment & Plan (03/20/2020 10:32 AM [employer]): Assessment: Marlee is a 19 year old [...] 03/15/2020. Assessment & Plan (03/19/2020 10:37 AM [employer]): Assessment: Marlee is a 19 year old [...] 03/15/2020. Assessment & Plan (03/18/2020 1:00 PM [employer]): Assessment: Marlee is a 19 year old [...] 03/15/2020. Assessment & Plan (03/17/2020 10:36 AM [employer]): Assessment: Marlee is a 19 year old [...] 03/15/2020. Assessment & Plan (03/16/2020 2:10 PM [employer]): Assessment: Marlee is a 19 year old [...] 03/15/2020. Assessment & Plan (03/15/2020 11:10 AM [employer]): Assessment: Marlee is a 19 year old [...] 03/15/2020 Assessment & Plan (03/14/2020 9:53 AM [employer]): Assessment: Marlee is a 19 year old [...] 03/15/2020 Assessment & Plan (03/13/2020 9:39 AM [employer]): Assessment: Marlee is a 19 year old [...] week Assessment & Plan (03/12/2020 11:35 AM [employer]): Assessment: Marlee is a 19 year old [...] week Assessment & Plan (03/11/2020 12:43 PM [employer]): Assessment: Marlee is a 19 year old [...] week Assessment & Plan (03/10/2020 9:12 AM [employer]): Assessment: Marlee is a 19 year old [...] in Assessment & Plan (03/09/2020 10:22 AM [employer]): Assessment: Marlee is a 19 year old [...] in Assessment & Plan (03/08/2020 10:52 AM [employer]): Assessment: Marlee is a 19 year old [...] in Assessment & Plan (03/07/2020 9:18 AM [employer]): Assessment: Marlee is a 19 year old [...] in Assessment & Plan (03/06/2020 10:09 AM [employer]): Assessment: Marlee is a 19 year old [...] in Assessment & Plan (03/05/2020 9:56 AM SU[employer]): Assessment: Marlee is a 19 year old [...] to it clogging; [place] (but still past [facility]) placed on 03/02/2020 - Enteral feeds: [...] in Assessment & Plan (03/04/2020 12:58 PM [employer]): Assessment: Marlee is a 19 year old [...] A/P Assessment & Plan (03/03/2020 3:15 PM [employer]): Assessment: Marlee is a 19 year old [...] A/P Assessment & Plan (03/02/2020 12:06 PM [employer]): Assessment: Marlee is a 19 year old [...] A/P Assessment & Plan (03/01/2020 12:05 PM [employer]): Assessment: Marlee is a 19 year old [...] A/P Assessment & Plan (02/29/2020 12:52 PM [employer]): Assessment: Marlee is a 19 year old [...] A/P Assessment & Plan (02/28/2020 9:12 AM SU[employer]): Assessment: Marlee is a 19 year old [...] A/P Assessment & Plan (02/27/2020 10:03 AM [employer]): Assessment: Marlee is a 19 year old [...] A/P Assessment & Plan (02/26/2020 11:12 AM [employer]): Assessment: Marlee is a 19 year old [...] A/P Assessment & Plan (02/25/2020 9:32 AM [employer]): Assessment: Marlee is a 19 year old [...] A/P Assessment & Plan (02/24/2020 10:42 AM [employer]): Assessment: Marlee is a 19 year old [...] A/P Assessment & Plan (02/23/2020 10:22 AM [employer]): Assessment: Marlee is a 19 year old [...] A/P Assessment & Plan (02/22/2020 11:25 AM [employer]): Assessment: Marlee is a 19 year old [...] A/P Assessment & Plan (02/21/2020 10:54 AM [employer]): Assessment: Marlee is a 19 year old [...] A/P Assessment & Plan (02/20/2020 11:31 AM SU[employer]): Assessment: Marlee is a 19 year old [...] A/P Assessment & Plan (02/19/2020 3:04 PM [employer]): Assessment: Marlee is a 19 year old [...] TPN. Assessment & Plan (02/18/2020 10:14 AM [employer]): Assessment: Marlee is a 19 year old [...] Sat) Assessment & Plan (02/17/2020 12:30 PM [employer]): Assessment: Marlee is a 19 year old [...] pending Assessment & Plan (02/16/2020 2:29 PM [employer]): Assessment: Marlee is a 19 year old [...] pending Assessment & Plan (02/15/2020 12:33 PM [employer]): Assessment: Marlee is a 19 year old [...] pending Assessment & Plan (02/14/2020 2:23 PM [employer]): Assessment: Marlee is a 19 year old [...] pending Assessment & Plan (02/13/2020 11:59 AM SU[employer]): Assessment: Marlee is a 19 year old [...] pending Assessment & Plan (02/12/2020 11:49 AM [employer]): Assessment: Marlee is a 19 year old [...] recs Assessment & Plan (02/11/2020 11:56 AM [employer]): Assessment: Marlee is a 19 year old [...] recs Assessment & Plan (02/10/2020 12:11 PM [employer]): Assessment: Marlee is a 19 year old [...] SG) Assessment & Plan (02/09/2020 11:49 AM SUPER[employer]): Assessment: Marlee is a 19 year old [...] SG) Assessment & Plan (02/08/2020 12:54 PM [employer]): Assessment: Marlee is a 19 year old [...] recs. Assessment & Plan (02/07/2020 12:06 PM [employer]): Assessment: Marlee is a 19 year old [...] SG) Assessment & Plan (02/06/2020 8:12 AM SU[employer]): Assessment: Marlee is a 19 year old [...] SG) Assessment & Plan (02/05/2020 9:12 AM [employer]): Assessment: Marlee is a 19 year old [...] TG) Assessment & Plan (02/04/2020 12:52 PM [employer]): Assessment: Marlee is a 19 year old [...] TG) Assessment & Plan (02/03/2020 2:38 PM [employer]): Assessment: Marlee is a 19 year old [...] TG) Assessment & Plan (02/02/2020 4:02 PM [employer]): Assessment: Marlee is a 19 year old [...] QOD Assessment & Plan (02/01/2020 12:08 PM [employer]): Assessment: Marlee is a 19 year old [...] RBCs. Assessment & Plan (01/31/2020 1:05 PM [employer]): Assessment: Marlee is a 19 year old [...] hematuria Assessment & Plan (01/30/2020 10:30 AM [employer]): Assessment: Marlee is a 19 year old [...] 10.2 Assessment & Plan (01/29/2020 9:39 PM [employer]): Assessment: Marlee is a 19 year old [...] syndrome Assessment & Plan (01/28/2020 11:59 AM [employer]): Assessment: Marlee is a 19 year old [...] QOD Assessment & Plan (01/27/2020 3:59 PM [employer]): Assessment: Marlee is a 19 year old [...] QOD Assessment & Plan (01/26/2020 5:14 PM [employer]): Assessment: Marlee is a 19 year old [...] QOD Assessment & Plan (01/25/2020 2:58 PM [employer]): Assessment: Marlee is a 19 year old [...] QOD Assessment & Plan (01/24/2020 11:54 AM [employer]): Assessment: Marlee is a 19 year old [...] orthostatics Assessment & Plan (01/23/2020 7:09 AM [employer]): Assessment: Marlee is a 19 year old [...] orthostatics Assessment & Plan (01/22/2020 4:25 PM [employer]): Assessment: Marlee is a 19 year old [...] orthostatics Assessment & Plan (01/21/2020 8:15 AM [employer]): Assessment: Marlee Chavez is a 19 year [...] orthostatics Assessment & Plan (01/20/2020 7:36 AM [employer]): Assessment: Marlee Chavez is a 19 year [...] orthostatics Assessment & Plan (01/19/2020 7:20 AM [employer]): Assessment: Marlee Chavez is a 19 year [...] orthostatics Assessment & Plan (01/18/2020 4:30 PM [employer]): Assessment: Marlee Chavez is a 19 year [...] consult Assessment & Plan (03/27/2020 10:35 AM [employer]): Assessment: Marlee is admitted on ED Protocol for severe malnutrition. Following feeding plan per [facility] Nutrition. Plan: - see plan under ARFID problem Assessment & Plan (03/26/2020 11:20 AM [employer]): Assessment: Marlee is admitted on ED Protocol for severe malnutrition. Following feeding plan per Adolescent Medicine and Nutrition. Plan: - see plan under ARFID problem Assessment & Plan (03/24/2020 11:19 AM [employer]): Assessment: Marlee is admitted on ED Protocol for severe malnutrition. Following feeding plan per Adolescent Medicine and Nutrition. Plan: - see plan under ARFID problem Assessment & Plan (03/23/2020 9:00 AM [employer]): Assessment: Marlee is admitted on ED Protocol for severe malnutrition. Following feeding plan per Adolescent Medicine and Nutrition. Plan: - see plan under ARFID problem Assessment & Plan (03/22/2020 12:21 PM [employer]): Assessment: Marlee is admitted on ED Protocol for severe malnutrition. Following feeding plan per Adolescent Medicine and Nutrition. Plan: - see plan under ARFID problem Assessment & Plan (03/17/2020 4:26 PM [employer]): Assessment: 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 and [...] anxiety Assessment & Plan (03/15/2020 11:10 AM [employer]): Assessment: Marlee is admitted on ED Protocol for severe malnutrition. Following feeding plan per Adolescent Medicine and Nutrition. Plan: - see plan under ARFID problem Assessment & Plan (03/10/2020 11:17 AM [employer]): Assessment: 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 and [...] needed Assessment & Plan (03/06/2020 10:09 AM [employer]): Assessment: Marlee is admitted on ED Protocol for severe malnutrition. Following feeding plan per Adolescent Medicine and Nutrition. Plan: - see plan under ARFID problem Assessment & Plan (03/04/2020 1:41 PM [employer]): Assessment: Marlee is admitted on ED Protocol for severe malnutrition. Following feeding plan per Adolescent Medicine and Nutrition. Plan: - see plan under ARFID problem Assessment & Plan (03/04/2020 11:50 AM [employer]): Assessment: Marlee is admitted on ED Protocol for severe malnutrition. Following feeding plan per Adolescent Medicine and Nutrition. Plan: - see plan under ARFID problem Assessment & Plan (03/03/2020 3:53 PM [employer]): Assessment: 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 and [...] dad. Assessment & Plan (02/27/2020 9:57 AM [employer]): Assessment: Marlee is admitted on ED Protocol for severe malnutrition. Following feeding plan per Adolescent Medicine and Nutrition. Plan: - see plan under ARFID problem Assessment & Plan (02/26/2020 9:59 AM [employer]): Assessment: 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 and [...] plan. Assessment & Plan (02/25/2020 5:48 PM [employer]): Assessment: 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 and [...] plan. Assessment & Plan (02/18/2020 4:54 PM [employer]): Assessment: 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 and [...] daily Assessment & Plan (02/11/2020 11:47 AM [employer]): Assessment: 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 and [...] BID Assessment & Plan (02/09/2020 11:50 AM [employer]): Assessment: Marlee is admitted on ED Protocol for severe malnutrition. Following feeding plan per Adolescent Medicine and Nutrition. Plan: - see plan under ARFID problem Assessment & Plan (02/07/2020 11:47 AM [employer]): Assessment: Marlee is admitted on ED Protocol for severe malnutrition. Following feeding plan per Adolescent Medicine and Nutrition. Plan: - see plan under ARFID problem Assessment & Plan (02/06/2020 8:12 AM [employer]): Assessment: Marlee is admitted on ED Protocol for severe malnutrition. Following feeding plan per Adolescent Medicine and Nutrition. Plan: - see plan under ARFID problem Assessment & Plan (02/05/2020 9:01 AM [employer]): Assessment: Marlee is admitted on ED Protocol for severe malnutrition. Following feeding plan per Adolescent Medicine and Nutrition. Plan: - see plan under ARFID problem Assessment & Plan (02/04/2020 12:34 PM [employer]): Assessment: Marlee is admitted on ED Protocol for severe malnutrition. Following feeding plan per Adolescent Medicine and Nutrition. Plan: - see plan under ARFID problem Assessment & Plan (02/03/2020 2:28 PM [employer]): Assessment: Marlee is admitted on ED Protocol for severe malnutrition. Following feeding plan per Adolescent Medicine and Nutrition. Plan: - see plan under ARFID problem Assessment & Plan (02/02/2020 3:57 PM [employer]): Assessment: Marlee is admitted on ED Protocol for severe malnutrition. Following feeding plan per Adolescent Medicine and Nutrition. Plan: - see plan under ARFID problem Assessment & Plan (02/01/2020 12:10 PM [employer]): Assessment: Marlee is admitted on ED Protocol for severe malnutrition. Following feeding plan per Adolescent Medicine and Nutrition. Plan: - see plan under ARFID problem Assessment & Plan (01/31/2020 1:04 PM [employer]): Assessment: Marlee is admitted on ED Protocol for severe malnutrition. Following feeding plan per Adolescent Medicine and Nutrition. Plan: - see plan under ARFID problem Assessment & Plan (01/30/2020 10:28 AM [employer]): Assessment: Marlee is admitted on ED Protocol for severe malnutrition. Following feeding plan per Adolescent Medicine and Nutrition. Plan: - see plan under ARFID problem Assessment & Plan (01/28/2020 4:29 PM [employer]): Assessment: 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 and [...] BID Assessment & Plan (01/24/2020 11:54 AM [employer]): Assessment: Marlee is admitted on ED Protocol for severe malnutrition. Following feeding plan per Adolescent Medicine and Nutrition. Plan: - see plan under ARFID problem Assessment & Plan (01/23/2020 7:09 AM [employer]): Assessment: Marlee is admitted on ED Protocol for severe malnutrition. Following feeding plan per Adolescent Medicine and Nutrition. Plan: - see plan under ARFID problem Assessment & Plan (01/22/2020 9:48 AM [employer]): Assessment: 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 and [...] () Assessment & Plan (01/22/2020 7:52 AM [employer]): Assessment: Marlee is admitted on ED Protocol for severe malnutrition. Following feeding plan per Adolescent Medicine and Nutrition. Plan: - see plan under ARFID problem Assessment & Plan (01/21/2020 10:33 AM [employer]): Assessment: 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 and [...] () Assessment & Plan (01/21/2020 7:40 AM [employer]): Assessment: Marlee is admitted on ED Protocol for severe malnutrition. Following feeding plan per Adolescent Medicine and Nutrition. Plan: - see plan under ARFID problem Assessment & Plan (01/20/2020 7:36 AM [employer]): Assessment: Marlee is admitted on ED Protocol for severe malnutrition. Following feeding plan per Adolescent Medicine and Nutrition. Plan: - see plan under ARFID problem Assessment & Plan (01/19/2020 7:22 AM [employer]): Assessment: Marlee is admitted on ED Protocol for severe malnutrition. Following feeding plan per Adolescent Medicine and Nutrition. Plan: - see plan under ARFID problem Assessment & Plan (01/18/2020 4:25 PM [employer]): Assessment: Marlee Chavez is a 19 year [...] orthostatics Assessment & Plan (01/17/2020 12:38 PM [employer]): Assessment: Marlee Chavez is a 19 year [...] anxiety Assessment & Plan (01/16/2020 1:41 PM [employer]): Assessment: Marlee Chavez is a 19 year [...] anxiety Assessment & Plan (01/15/2020 8:49 PM [employer]): Assessment: 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 and [...] counseling. Assessment & Plan (01/15/2020 11:57 AM [employer]): Assessment: Marlee Chavez is a 19 year [...] anxiety Assessment & Plan (01/14/2020 1:00 PM [employer]): Assessment: 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 and [...] () Assessment & Plan (01/14/2020 9:54 AM [employer]): Assessment: Marlee Chavez is a 19 year [...] anxiety Assessment & Plan (01/13/2020 2:34 PM [employer]): Assessment: Marlee Chavez is a 19 year [...] anxiety Assessment & Plan (01/13/2020 12:01 PM [employer]): Moderate protein-calorie malnutrition Assessment: Marlee Chavez is [...] thereafter Assessment & Plan (01/12/2020 3:40 PM [employer]): Moderate protein-calorie malnutrition Assessment: Marlee Chavez is [...] chart) Assessment & Plan (01/12/2020 1:25 PM [employer]): Assessment: Marlee Chavez is a 19 year [...] anxiety Assessment & Plan (01/11/2020 11:43 AM [employer]): Assessment: Marlee Chavez is a 19 year [...] cysts Assessment & Plan (01/10/2020 9:32 AM [employer]): Assessment: Marlee Chavez is a 19 year [...] cysts Assessment & Plan (01/09/2020 11:08 AM [employer]): Assessment: Marlee Chavez is a 19 year [...] cysts Assessment & Plan (01/08/2020 1:32 PM [employer]): Assessment: Marlee Chavez is a 19 year [...] cysts Assessment & Plan (01/07/2020 2:52 PM [employer]): Assessment: Marlee Chavez is a 19 year [...] cysts Assessment & Plan (01/06/2020 11:27 AM [employer]): Assessment: Marlee Chavez is a 19 year [...] cysts Assessment & Plan (01/05/2020 3:49 PM [employer]): Assessment: Marlee Chavez is a 19 year [...] cysts Assessment & Plan (01/04/2020 1:53 PM [employer]): Assessment: Marlee Chavez is a 19 year [...] cysts Assessment & Plan (01/03/2020 12:34 AM [employer]): Assessment: Marlee Chavez is a 19 year [...] 03/18/2023 Assessment & Plan (01/24/2022 5:04 PM [employer]): Assessment: Marlee Chavez is a 20 year [...] gabapentin Assessment & Plan (01/23/2022 6:56 PM [employer]): Assessment: Marlee Chavez is a 20 year [...] pain Assessment & Plan (01/08/2021 3:05 PM [employer]): Assessment: Patient is an 20 year old [...] I&Os Assessment & Plan (01/07/2021 4:52 PM [employer]): Assessment: Patient is an 20 year old [...] it Assessment & Plan (01/06/2021 6:00 PM [employer]): Assessment: Patient is an 20 year old [...] I&Os Assessment & Plan (01/05/2021 1:27 PM [employer]): Assessment: Patient is an 20 year old [...] I&Os Assessment & Plan (01/04/2021 9:17 PM [employer]): Assessment: Patient is an 20 year old [...] I&Os Assessment & Plan (01/03/2021 8:43 PM [employer]): Assessment: Patient is an 20 year old [...] wearing condom. She has upcoming appointment with blow torch operator next month at which time, she will be getting a IUD. Plan: -urine test today -GC, chlamydia, trichomonas testing Assessment & Plan (05/24/2020 2:43 PM CDT): Will get urine Hcg and STI testing. Mom is aware and Marlee is ok with us communicating results to her mother. Purging 03/24/2020 05/24/2020 Assessment & Plan (04/05/2020 3:23 PM [employer]): Assessment: Has been drinking excessive amounts of water and putting her fingers in her mouth to induce vomiting. No recorded emesis since 03/25. Plan: Will limit access to water to 250ml at a time. May only bathe once per day after she has taken her meds, had breakfast and lunch. Assessment & Plan (04/04/2020 12:58 PM [employer]): Assessment: Has been drinking excessive amounts of water and putting her fingers in her mouth to induce vomiting. No recorded emesis since 03/25. Plan: Will limit access to water to 250ml at a time. May only bathe once per day after she has taken her meds, had breakfast and lunch. Assessment & Plan (04/01/2020 11:55 AM [employer]): Assessment: Has been drinking excessive amounts of water and putting her fingers in her mouth to induce vomiting. No recorded emesis since 03/25. Plan: Will limit access to water to 250ml at a time. May only bathe once per day after she has taken her meds, had breakfast and lunch. Assessment & Plan (03/24/2020 4:53 PM [employer]): Assessment: Has been drinking excessive amounts of water and putting her fingers in her mouth to induce vomiting. Plan: Will limit access to water to 250ml at a time. May only bathe once per day after she has taken her meds, had breakfast and lunch. Ovarian cyst 01/12/2020 03/19/2020 Assessment & Plan (03/15/2020 11:10 AM [employer]): Assessment: on ultrasound on R Plan: -Radiology recommended repeat imaging in 6 months for ovarian cysts Assessment & Plan (03/04/2020 1:41 PM [employer]): Assessment: on ultrasound on R Plan: -Radiology recommended repeat imaging in 6 months for ovarian cysts Assessment & Plan (03/04/2020 11:50 AM [employer]): Assessment: on ultrasound on R Plan: -Radiology recommended repeat imaging in 6 months for ovarian cysts Assessment & Plan (02/27/2020 9:58 AM [employer]): Assessment: on ultrasound on R Plan: -Radiology recommended repeat imaging in 6 months for ovarian cysts Assessment & Plan (01/28/2020 11:59 AM [employer]): Assessment: on ultrasound on R Plan: -Radiology recommended repeat imaging in 6 months for ovarian cysts Assessment & Plan (01/27/2020 3:52 PM [employer]): Assessment: on ultrasound on R Plan: -Radiology recommended repeat imaging in 6 months for ovarian cysts Assessment & Plan (01/26/2020 6:01 PM [employer]): Assessment: on ultrasound on R Plan: -Radiology recommended repeat imaging in 6 months for ovarian cysts Assessment & Plan (01/13/2020 2:33 PM [employer]): Assessment: on ultrasound on R Plan: -Radiology recommended repeat imaging in 6 months for ovarian cysts Assessment & Plan (01/12/2020 1:26 PM [employer]): Assessment: on ultrasound on R Plan: -Radiology [...] Travel 05/07/2024 10:00 AM CDT Office Visit [address] [address] Ronel Thornton DO Anorexia (Primary Dx); Generalized anxiety disorder 04/29/2024 8:20 AM CDT Office Visit [address] [address] Ronel Thornton DO Anorexia (Primary Dx); Severe bulimia nervosa; Generalized anxiety disorder; Recurrent major depressive disorder, in full remission; PTSD (post-traumatic stress disorder); Borderline personality disorder 04/09/[address] [address] Ronel Thornton DO Appointment from Last 3 Months Immunizations Immunization Administration Dates Next Due Kiwiple primary monoval ent 12+ yr 0.3mL Purple [...] Recorded Patient Health Questionnaire-2 Score 0 05/22/2024 [facility] Occupat ional Health - Occupational Stress [...] place to sleep or slept in a senior care (including now)? No 04/24/2023 Comments No Sex and Gender Information Value Date Recorded Sex Assigned at Not on file Legal Sex Female 6:25 PM [employer] Gender Identity Not on file Sexual Orientation [...] Description 06/08/2024 1:20 PM CDT Office Visit [address] [address] Ronel Thornton DO [address] [place] [id number] 01/20/2025 8:20 AM [employer] Office Visit [address] [address] Ronel Thornton DO [address] [place] [id number] Health Maintenance Due Date Last Done [...] PANEL Routine 04/29/2024 8:58 AM CDT Anorexia NM ELECTROCARDIOGRAM, COMPLETE Routine 04/29/2024 Anorexia PAP CERVICAL [...] 04/29/2024 6:09 PM CDT Performed at: [facility] [address], [place], [place] [id number] [employer] Nitrator Operator: Elizabeth Rangel [facility], Phone: [phone] us Ronel Thornton DO LAB - HEMATOLOGY ORDERABLES F inal Result [facility] ACCOUNT BILL [address] [place] [address] * (ABNORMAL) COMPREHENSIVE METABOLIC PANEL (04/29/2024 8:58 AM CDT) [facility] Glucose 77 70 - 99 mg/dL [facility] [...] - 04/29/2024 6:09 PM CDT Performed at: [address] [place] [address] [place] [place] [id number] [employer] Nitrator Operator: Elizabeth Rangel [facility], Phone: [phone] Ronel Thornton DO LAB - CHEMISTRY ORDERABLES Fi nal Result Performing Organization Address City/[facility]/ZIP Co de Phone Number [facility] ACCOUNT BILL [address] [place] [address] * MAGNESIUM BLOOD (04/29/2024 8:58 AM CDT) Magnesium 2.0 1.6 - 2.6 mg/dL [facility] ACCOUNT BILL Blood BLOOD SPECIMEN / Unknown 04/29/2024 8:58 AM CDT 04/29/2024 Narrative [facility] ACCOUNT BILL - 04/29/2024 6:09 PM CDT Performed at: [address] [place] [address] [address] [place] [id number] [employer]zzi Nitrator Operator: Elizabeth Rangel [facility], Phone: [phone] Ronel Thornton DO LAB - CHEMISTRY ORDERABLES Fi nal Result [facility] ACCOUNT BILL [address] [place] [address] * LIPID PROFILE (04/29/2024 8:58 AM CDT) [...] 04/29/2024 6:09 PM CDT Performed at: [address] [facility] [address] [place] [id number] B[employer]zzi Nitrator Operator: Elizabeth Rangel [facility], Phone: [phone] Ronel Thornton DO LAB - CHEMISTRY ORDERABLES Fi nal Result [facility] ACCOUNT BILL [address] [place] [address] * NM ELECTROCARDIOGRAM, COMPLETE (04/29/2024) Ronel Thornton DO NM - PROFESSIONAL SERVICES Ed ited Result - Final * (ABNORMAL) PAP CERVICAL CANCER SCREEN CT/NG/TV APT (11/29/2023 11:06 AM CDT) Age Gdln ACOG Testing 21-29 [facility] ACCOUNT BILL Comment: Performed at: - [facility] [address] [id number] Biazzi Nitrator Operator: Meredith Gil MD, Phone: [phone] Performed at: - [facility] [id number] B[employer]zzi Nitrator Operator: Meredith Gil MD, Phone: [phone] Diagnosis Comment(A) [facility] ACCOUNT BILL Comment: EPITHELIAL [...] 11:06 AM CDT 11/29/2023 Comment:Cervix Release to dc t Narrative [facility] ACCOUNT BILL - 12/05/2023 5:09 PM CDT Performed at: [address] [id number] Biazzi Nitrator Operator: Meredith Gil MD, Phone: [phone] Specimen Comment: [id number] Specimen Comment: Source.............Cervix Specimen Comment: No. of containers..01 ThinPrep Vial Nai Jurado MD LAB - PATHOLOGY/CYTOLOGY [place] Final Result [facility] ACCOUNT BILL [address] [place] [address] * HIV-1 HIV-2 ANTIBODY + HIV P24 [...] - 11/30/2023 10:10 AM CDT Performed at: [address] [place] [address], [place] [id number] [employer] Nitrator Operator: Karlos Huffman PhD, Phone: [phone] us Nai Jurado MD LAB - CHEMISTRY ORDERABLES Fi nal Result Performing Organization Address City/[facility] Co de Phone Number [facility] ACCOUNT BILL [address] [place] [address] * HEPATITIS C AB W/RFLX TO HCV RNA QN PCR (12/07/2021) Hepatitis C Antibody NON-REACTI VE NON-REACT [facility] Signal to Cut-Off 0.08 <1.00 [facility] Comment: HCV antibody was non-reactive. There is no laboratory evidence of HCV infection. In most cases, no further action is required. However, if recent HCV exposure is suspected, a test for HCV RNA (test code 44326) is suggested. For additional information please refer to http://education.Bycler/faq/PGU43u4 (This link is being provided for informational/ educational purposes only.) Test Performed at: [facility] [address] [place] [address] PURVI PABLO DO,MPH Blood BLOOD SPECIMEN / Unknown 12/07/2021 12/07/2021 10:47 AM CDT us Karrie Mack MD LAB - CHEMISTRY ORDERABLES Final Result Performing Organization Address City/[facility] Co de Phone Number [facility] [address] [place] [address] from Last 3 Months or Most Recently Relevant to Health Maintenance Insurance [facility] [place] [address] Advance Directives * Full Code (Latest Code [...] 4:54 PM 06/22/2022 2:44 PM Care Teams Surgical Services Tech Relationship Specialty Start Date End Date Ronel Thornton DO [address] [place] [address] PCP - General Family Medicine 03/18/23 Ronel Thornton DO [address] [place] [address] PCP - Attributed-[facility] 04/12/23
== END 2024-06-07 01:34 | disposition left against medical advice (07) ==
LOC: ANHED 06-07 01:30
PROVIDERS: Emergency Provider Registered Nurse; PCP Family Medicine
DX: R11.2 Nausea with vomiting, unspecified (principal)
CPT/HCPCS: 82948; 99199

== ENCOUNTER 2024-06-07 08:09 | Emergency (ER) | payer OTHER, SELFPAY ==
--- OUTSIDE RECORDS SUMMARY | 2024-06-07 08:11 | XMS_ITS | Encounter Summary ---
Author Organization [facility] Address [address] [facility] [place] [address] Care Team Providers Care Assistant Clinical Nurse Manager Name Role Phone Mellissa Jiménez MD Primary Care Provider [phone] Ronel Thornton DO Primary Care Provider [phone] Daphnie Gillespie MD Unavailable Juliana Peralta GEAR CODING MACHINE OPERATOR Unavailable [phone] Juliana Peralta GEAR CODING MACHINE OPERATOR Unavailable [phone] Ronel Thornton DO Unavailable Kenyatta Taylor RN Unavailable Tiago Lew Unavailable [phone] Reason for Visit * Reason Onset Date Comments Appointment 10/05/2020 Contraceptive management 10/05/2020 Encounter Details Date Type Department Care Team (Late st Contact Info) Description 10/05/2020 Telephone [facility] [address] [place] [address] Karrie Mack MD [address] [place] [address] Appointment; Contraceptive management Social History Tobacco Use Types Packs/Day Years Used Date Smoking Tobacco: Never Smokeless Tobacco: Never Alcohol Use Standard Drinks/Week Comments No 0 (1 standard drink = 0.6 oz pur e alcohol) Comments No Sex and Gender Information Value Date Recorded Sex Assigned at Not on file Legal Sex Female 6:25 PM [employer]EP [employer] WORK[employer] Gender Identity Not on file Sexual Orientation [...] the office yet to get scheduled. CB# [phone] documented in this encounter Plan of Treatment Upcoming Encounters Date Type Department Care Team (Late st Contact Info) Description 06/08/2024 1:20 PM CDT Office Visit [address] [address] Ronel Thornton DO [address] [place] [id number] 01/20/2025 8:20 AM [employer]EP [employer] WORK[employer] Office Visit [address] [address] Ronel Thornton DO [address] [place] [address] documented as of this encounter Visit Diagnoses Not on filedocumented in this encounter Additional Health Concerns Infection Onset Date Last Indicated Resolved Time COVID-19 Under Investigation 08/10/2021 08/10/2021 08/10/2021 2:59 AM CDT documented as of this encounter Care Teams Assistant Clinical Nurse Manager Relationship Specialty Start Date End Date Mellissa Jiménez MD [address] [place] [address] [place] [id number] PCP - General Family Medicine 04/25/20 03/17/23 Ronel Thornton DO [address] [place] [address] PCP - General Family Medicine 03/18/23 Daphnie Gillespie MD [address] [place] [address] PCP - Attributed-[facility] 02/11/23 04/11/23 Ronel Thornton DO [address] [place] [address] PCP - Attributed-[facility] 04/12/23 Juliana Peralta MSW Outpatient Sales Correspondence Clerk Care Management 04/24/2304/11 Juliana Peralta MSW Outpatient Sales Correspondence Clerk Care Management 04/30/2304/12 Kenyatta Taylor RN [address] [address] Automobile Radiator MechanicLiner Inserter 09/02/23 10/04/23 Tiago Lew Care Coordination Specialist Care Management 09/26/23 11/10/23 documented as of this encounter
--- OUTSIDE RECORDS SUMMARY | 2024-06-07 08:11 | XMS_ITS | Encounter Summary ---
Author Organization [facility] Address [address] [place] [address] Care Team Providers Care Quality Assurance Supervisor Name Role Phone Ronel Thornton DO Primary Care Provider [phone] Ronel Thornton DO Unavailable [phone] Reason for Visit * Reason Comments Vomiting Pain Abdominal Diarrhea Encounter Details Date Type Department Care Team (Late st Contact Info) Description 06/07/2024 2:27 AM CDT - 06/07/2024 7:04 AM CDT Emergency ER at [facility] [address] [place] [id number] Momo Yung MD [address] [place] [id number] Abdominal pain, epigastric; Nausea vomiting and diarrhea Discharge Disposition: Home or Self Care Social History Tobacco Use Types Packs/Day Years Used Date Smoking Tobacco: Former Cigarettes Q uit: 01/11/2022 Smokeless Tobacco: Never Comments:Brief smoking x 1 m o Passive Exposure Comments:smoked about 4 a month [...] Recorded Patient Health Questionnaire-2 Score 0 05/22/2024 [facility] - Occupational Stress [...] on file Legal Sex 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 Answer Date of Assessment Author No 04/29/2023 1:10 PM CDT Gloria Womack RN * Is person blind or have serious difficulty seeing? Answer Date of Assessment Author No 04/29/2023 1:10 PM CDT Gloria Womack RN * Does person have serious difficulty walking/climbing stairs? Answer Date of Assessment Author No 04/29/2023 1:10 PM CDT Gloria Womack RN * Does person have difficulty dressing/bathing? Answer Date of Assessment Author No 04/29/2023 1:10 PM DELMYT Gloria Womack RN * Does person have difficulty doing errands alone? Answer Date of Assessment Author No 04/29/2023 1:10 PM CDT Gloria Womack RN documented as of this encounter Mental Status * Does person have difficulty concentrating/remembering/making decisions? Answer Entry Date Author No 04/29/2023 1:10 PM Gloria Zuniga RN documented in this encounter Discharge Instructions * Discharge Instructions* Momo Yung MD - 06/07/2024 6:36 AM CDT You were seen in the ER for vomiting and diarrhea. We gave you fluids and nausea medications -Drink plenty of fluids. -Take Compazine as needed. We also prescribed rescue use in case you are unable to keep your Compazine down. We sent a suppository and a patch -take Pepcid daily Return to the ER if you are not keeping any liquids down, continue to vomit despite zofran, or if you have any other concerning symptoms. Please follow-up with your primary care doctor documented in this encounter Medications at Time of Discharge ALPRAZolam (Xanax) 0.5 MG tablet Take 1 (one) tablet by mouth at bedtime 5 escitalopram (Lexapro) 5 MG tablet Take 1 (one) tablet by mouth once daily 30 tablet 1 5 famotidine (Pepcid) 20 MG tablet Take 1 (one) tablet by mouth every 12 hours 30 tablet 5 OLANZapine (ZyPREXA) 5 MG tablet Take 1 (one) tablet by mouth at bedtime 90 tablet 5 prochlorperazin e (Compazine) 25 MG suppository Insert 1 (one) suppository into the rectum every 12 hours as needed for Nausea/Vomiting 2 suppository 5 prochlorperazin e (Compazine) 5 MG tablet Take 1 (one) tablet by mouth every 8 hours as needed for Nausea/Vomiting 20 tablet 5 scopolamine (Transderm-Scop ) 1 MG patch Apply 1 (one) patch to skin every 72 hours as needed for Other 4 patch 5 gabapentin (Neurontin) 400 MG capsuleIndicati ons:Mood Disorder Take 1 (one) capsule by mouth 2 times daily Reasons: Mood Disorder 60 capsule 4 10/04/19 24 hydrOXYzine HCl (Atarax) 50 MG tabletIndicatio ns:Anxiety Take 1 (one) tablet by mouth every 6 hours as needed Reasons: Feeling Anxious 40 tablet 4 10/04/19 24 lamoTRIgine XR 24hr (LaMICtal XR) 250 MG tablet Take 1 (one) tablet by mouth once daily 90 tablet 2 4 10/04/19 24 melatonin 3 MG tabletIndicatio ns:Insomnia Take 1 (one) tablet by mouth nightly as needed for Insomnia Reasons: Trouble Sleeping 30 tablet 4 10/04/19 24 mirtazapine (Remeron) 15 MG tabletIndicatio ns:Major Depressive Disorder Take 1 (one) tablet by mouth at bedtime Reasons: Major Depressive Disorder 30 tablet 4 10/04/19 24 pantoprazole EC (Protonix) 40 MG tabletIndicatio ns:Gastroesopha geal Reflux Disease Take 1 (one) tablet by mouth once daily Reasons: Gastroesophageal Reflux Disease 30 tablet 4 10/04/19 24 documented as of this encounter ED Notes * Momo Yung MD - 06/07/2024 2:34 AM CDT Attending note: Chief complaint (entered by nursing staff): Chief Complaint Patient presents with Vomiting Pain Abdominal Diarrhea HPI: Marlee Chavez is a 23 year old female with history of anxiety who presents to the ER for nausea,vomiting, abdominal pain. Patient reports symptoms have been ongoing for the past 3 days. Pain is epigastric. She was also been having diarrhea. Denies any fever, chills, or blood in her vomit or stool. Has not been able to keep her medications down. Reports previous history of SMA syndrome. Deniesany known sick contacts. Past Medical History[1] Past Surgical History[2] Home Medications: Medications Ordered Prior to Encounter[3] Allergies: Allergies[4] Social History: Social History Tobacco Use Smoking status: Former Current packs/day: 0.00 Types: Cigarettes Quit date: 01/11/2022 Years since quittin.4 Smokeless tobacco: Never Tobacco comments: Brief smoking x 1 mo Substance Use Topics Alcohol use: Never Family History: Family History[5] Physical Exam: Vitals: 06/07/24 0211 BP: 113/77 Pulse: 64 Resp: 17 Temp: 97.7 ??F (36.5 ??C) SpO2: 96% Physical Exam Constitutional: General: She is not in acute distress. Appearance: She is well-developed. HENT: Head: Normocephalic and atraumatic. Nose: Nose normal. Mouth/Throat: Mouth: Mucous membranes are dry. Eyes: Conjunctiva/sclera: Conjunctivae normal. Pupils: Pupils are equal, round, and reactive to light. Cardiovascular: Rate and Rhythm: Normal rate and regular rhythm. Pulmonary: Effort: No respiratory distress. Breath sounds: Normal breath sounds. No wheezing. Abdominal: General: There is no distension. Palpations: Abdomen is soft. Tenderness: There is abdominal tenderness in the epigastric area. Musculoskeletal: General: Normal range of motion. Cervical back: Normal range of motion and neck supple. Skin: General: Skin is warm and dry. Neurological: Mental Status: She is alert and oriented to person, place, and time. Cranial Nerves: No cranial nerve deficit. Medical Decision Making: History is obtained from patient and is located in my HPI section. Relevant PE findings: Epigastric tenderness Prior available records reviewed. Per Chart review: Last ER visit was July 2023 for abdominal pain and nausea. Was at the time. Her work up atthe time was normal Code Status: Full DDx: GERD, gastritis, pancreatitis, dehydration, SMA syndrome, , other Plan of Care: CBC, CMP, hCG, lipase, fluids, Compazine, Pepcid, CT abdomen/pelvis Patient reports Compazine usually helps, Zofran does not work ED Course: -Patient seen and evaluated -Available studies reviewed -Labs show unremarkable CBC, glucose 60, bicarb 18, anion gap 20, normal phosphorus, normal magnesium, negative hCG, lipase 84 -Imaging interpretation by radiologist: Prelim CT shows no acute findings -On reevaluation, patient is sleeping. She reports her symptoms are improved. -Results reviewed with the patient and her mother -patient tolerating p.o.. Repeat glucose normal per nurse -Consideration regarding hospitalization: 23-year-old female here for nausea, vomiting, epigastric pain. Her vitals are normal. Abdominal exam is benign. Lab show dehydration and hypoglycemia. Labs also show mildly elevated lipase. However CT shows no evidence of pancreatitis. CT is reassuring. Patient tolerating p.o.. Will discharge with refills of Compazine. Discussed rescue with scopolamine and Compazine suppository. Recommended PCP follow-up. -I have reviewed the diagnostic findings with the patient and they have had an opportunity to ask me any questions they have about care, diagnosis and discharge plan. The patient is comfortable with the discharge plan. In addition to written discharge instructions, verbal discharge instructions were discussed with the patient. The patient agreed to follow-up as directed, and has been asked to return immediately to the emergency department for any new or concerning symptoms or if their conditionworsens. Labs Reviewed COMPREHENSIVE METABOLIC PANEL - Abnormal; Notable for the following components: Result Value Glucose 60 (*) CO2 18 (*) Anion Gap 20 (*) BUN 27 (*) Protein Total 9.0 (*) eGFR by CKD-EPI 76 (*) All other components within normal limits LIPASE BLOOD - Abnormal; Notable for the following components: Lipase 84 (*) All other components within normal limits CBC W AUTO DIFFERENTIAL - Normal PHOSPHORUS BLOOD - Normal MAGNESIUM BLOOD - Normal HCG BETA BLOOD QUANTITATIVE Narrative: hCG Reference Range, mIU/mL: Non Females 0-6.0 Perimenopausal Females ages 41-55* [...] a serum FSH >20 IU/L makes unlikely. HYDROXYBUTYRATE BETA CT Abdomen Pelvis W Contrast (Results Pending) CLINICAL INDICATION: Pt presents to ed with co abdominal pain with nausea and vomiting with diarrhea. Pt states that this has been for the past 3 days. HX OF SMA SYNDROME 80 ML ISOVUE 370 EGFR 76 CONTRAST: 80 ML ISOVUE 370 PROCEDURE DATE: 06/07/2024 CT ABDOMEN & PELVIS With IV Contrast No urinary tract calculi or hydronephrosis. No CT evidence of SMA syndrome No free air or fluid. No thickened bowel or evidence of appendicitis. Normal appendix. No inflammatory changes. No bowel obstruction. IUD is in place. Lung bases show no acute process. Patient Name:MARLEE CHAVEZ MR NO:[id number] Accession No: Enrique Roy M.D. Electronically Signed Orders Placed This Encounter CT Abdomen Pelvis W Contrast COMPREHENSIVE METABOLIC PANEL CBC W AUTO DIFFERENTIAL PHOSPHORUS BLOOD MAGNESIUM BLOOD LIPASE BLOOD HCG BETA BLOOD QUANTITATIVE HYDROXYBUTYRATE BETA lactated ringers IV bolus DISCONTD: ondansetron (Zofran) injection 4 mg prochlorperazine (Compazine) injection 10 mg famotidine (Pepcid) injection 20 mg iopamidol (Isovue 370) 76 % contrast 0.9% NaCl injection 0-10 mL 0.9% NaCl IV flush bag dextrose 5 % and lactated ringers infusion ALPRAZolam (Xanax) tablet 0.5 mg Final Clinical Impression: 1. Abdominal pain, epigastric 2. Nausea vomiting and diarrhea Consult No Procedure done at this time No Ultrasound done at this time No Critical Care: None Portions of the record may have been created with voice recognition software. Occasional wrong-wordor '[id number]' substitutions may have occurred due to the inherent limitations of voice recognition software Momo Yung MD 06/07/2024 2:34 AM [1] Past Medical History: Diagnosis Date Anxiety and depression 03/25/2017 ATN (acute tubular necrosis) dehydration related to SMA syndrome Borderline personality disorder (HCC) 03/18/2023 Hepatitis 08/10/2021 High cholesterol Pancolitis (HCC) 06/18/2022 PTSD (post-traumatic stress disorder) 04/28/2023 Purging 03/24/2020 h/o purging behavior, pt attributes to SMA syndrome as purging helped pain, denies bulimia S/P PICC central line placement 02/09/2020 left basilic, no difficulties Self-injurious behavior 03/25/2017 Sepsis, due to unspecified organism, unspecified whether acute organ dysfunction present (HCC) 06/18/2022 Superior mesenteric artery syndrome (HCC) 2019 [2] Past Surgical History: Procedure Laterality Date COLONOSCOPY N/A 06/21/2022 N/A; COLONOSCOPY DIAGNOSTIC COLONOSCOPY WITH BIOPSY 01/05/2020 COLONOSCOPY BIOPSY (ANY METHOD) COLONOSCOPY WITH POLYPECTOMY 06/21/2022 COLONOSCOPY REMOVAL OR ABLATION TUMOR/POLYP/LESION (ANY METHOD) ENDOSCOPY, UPPER 01/05/2020 ESOPHAGOGASTRODUODENOSCOPY (EGD) BIOPSY ENDOSCOPY, UPPER N/A 06/21/2022 N/A; ESOPHAGOGASTRODUODENOSCOPY (EGD) DIAGNOSTIC ENDOSCOPY, UPPER 06/21/2022 ESOPHAGOGASTRODUODENOSCOPY (EGD) BIOPSY [3] No current facility-administered medications on file prior to encounter. Current Outpatient Medications on File Prior to Encounter Medication Sig Dispense Refill ALPRAZolam (Xanax) 0.5 MG tablet Take 1 (one) tablet by mouth at bedtime escitalopram (Lexapro) 5 MG tablet Take 1 (one) tablet by mouth once daily 30 tablet 1 [DISCONTINUED] gabapentin (Neurontin) 400 MG capsule Take 1 (one) capsule by mouth 2 times daily Reasons: Mood Disorder (Patient not taking: Reported on 10/04/2023) 60 capsule 0 [DISCONTINUED] hydrOXYzine HCl (Atarax) 50 MG tablet Take 1 (one) tablet by mouth every 6 hours as needed Reasons: Feeling Anxious (Patient not taking: Reported on 10/04/2023) 40 tablet 0 [DISCONTINUED] lamoTRIgine XR 24hr (LaMICtal XR) 250 MG tablet Take 1 (one) tablet by mouth once daily (Patient not taking: Reported on 10/04/2023) 90 tablet 2 [DISCONTINUED] melatonin 3 MG tablet Take 1 (one) tablet by mouth nightly as needed for Insomnia Reasons: Trouble Sleeping (Patient not taking: Reported on 10/04/2023) 30 tablet 0 [DISCONTINUED] mirtazapine (Remeron) 15 MG tablet Take 1 (one) tablet by mouth at bedtime Reasons: Major Depressive Disorder (Patient not taking: Reported on 10/04/2023) 30 tablet 0 OLANZapine (ZyPREXA) 5 MG tablet Take 1 (one) tablet by mouth at bedtime 90 tablet 0 [DISCONTINUED] pantoprazole EC (Protonix) 40 MG tablet Take 1 (one) tablet by mouth once daily Reasons: Gastroesophageal Reflux Disease (Patient not taking: Reported on 10/04/2023) 30 tablet 0 prochlorperazine (Compazine) 5 MG tablet Take 1 (one) tablet by mouth every 8 hours as needed for Nausea/Vomiting 30 tablet 0 [4] No Known Allergies [5] Family History Problem Relation Name Age of Onset Hypertension Mother Depression Mother Hypertension Maternal Grandmother Thyroid Disease Neg Hx CAD (Coronary Artery Disease) Neg Hx * Emelyn Wilder RN - 06/07/2024 2:28 AM CDT Pt presents to ed with co abdominal pain with nausea and vomiting with diarrhea. Pt states that this has been for the past 3 days. Pt states that she is afraid that she may have SMA documented in this encounter Plan of Treatment Upcoming Encounters Date Type Department Care Team (Late st Contact Info) Description 06/08/2024 1:20 PM CDT Office Visit 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 Office Visit [facility] Family Medicine [address] [place] [address] [id number] Ronel Thornton, DO [address] [place] [address] Pending Results Name Type Priority Associated Diagnoses Date /Time CT Abdomen Pelvis W Contrast Imaging STAT Abdominal pain, epigastric 06/07/2024 3:35 AM CDT Scheduled Orders Name Type Priority Associated Diagnoses Orde r Schedule CT Abdomen Pelvis W Contrast Imaging STAT Abdominal pain, epigastric For radiant use only for 1 Occurrences starting 06/07/2024 until 06/07/2024 HYDROXYBUTYRATE BETA Lab STAT ONCE for 1 Occurrences starting 06/07/2024 until 06/07/2024 documented as of this encounter Procedures Procedure Name Priority Date/Time Associated Diagnosis Comments COMPREHENSIVE METABOLIC PANEL STAT 06/07/2024 2:50 AM CDT HCG BETA BLOOD QUANTITATIVE STAT 06/07/2024 2:50 AM CDT PHOSPHORUS BLOOD STAT 06/07/2024 2:50 AM CDT MAGNESIUM BLOOD STAT 06/07/2024 2:50 AM CDT LIPASE BLOOD STAT 06/07/2024 2:50 AM CDT CBC W AUTO DIFFERENTIAL STAT 06/07/2024 2:49 AM CDT documented in this encounter Results * HCG BETA BLOOD QUANTITATIVE (06/07/2024 2:50 AM CDT) [facility] hCG Quantitative <2.42 mIU/mL 06/08/19 3:11 AM CDT [facility] Blood BLOOD SPECIMEN / Unknown Venipuncture / Unknown 06/07/2024 2:50 AM CDT 06/07/2024 2:50 AM CDT Narrative [facility] - 06/07/2024 3:11 AM CDT hCG Reference Range, mIU/mL: Non Females 0-6.0 Perimenopausal Females ages 41-55* [...] a serum FSH >20 IU/L makes unlikely. Momo Yung MD LAB - CHEMISTRY ORDERABLES F inal Result Performing Organization Address City/[facility]/ZIP Co de Phone Number [facility] [address] [place] [phone] * (ABNORMAL) LIPASE BLOOD (06/07/2024 2:50 AM CDT) Lipase 84(H) <60 U/L 06/07/2024 3:08 AM CDT [facility] Blood BLOOD SPECIMEN / Unknown Venipuncture / Unknown 06/07/2024 2:50 AM CDT 06/07/2024 2:50 AM CDT Momo Yung MD LAB - CHEMISTRY ORDERABLES F inal Result Performing Organization Address [facility]/ZIP Co de Phone Number [facility] [address] [place] [phone] * MAGNESIUM BLOOD (06/07/2024 2:50 AM CDT) Magnesium 2.2 1.6 - 2.6 mg/dL 06/07/2024 3:08 AM CDT [facility] Blood BLOOD SPECIMEN / Unknown Venipuncture / Unknown 06/07/2024 2:50 AM CDT 06/07/2024 2:50 AM CDT Momo Yung MD LAB - CHEMISTRY ORDERABLES F inal Result Performing Organization Address [facility] de Phone Number [facility] [address] [place] [address] [phone] * PHOSPHORUS BLOOD (06/07/2024 2:50 AM CDT) Pathologist [facility] Phosphorus 4.5 2.5 - 4.5 mg/dL 06/07/2024 3:08 AM CDT [facility] Blood BLOOD SPECIMEN / Unknown Venipuncture / Unknown 06/07/2024 2:50 AM CDT 06/07/2024 2:50 AM CDT Momo Yung MD LAB - CHEMISTRY ORDERABLES F inal Result Performing Organization Address [facility] de Phone Number [facility] [address] [place] [phone] * (ABNORMAL) COMPREHENSIVE METABOLIC PANEL (06/07/2024 2:50 AM CDT) Glucose 60(L) 70 - 99 mg/dL 06/07/2024 3:08 AM CDT [facility] Sodium 138 136 - 145 mmol/L 06/07/2024 3:08 AM CDT [facility] Potassium 3.9 3.5 - 5.1 mmol/L 06/07/2024 3:08 AM CDT [facility] Chloride 100 98 - 107 mmol/L 06/07/2024 3:08 AM CDT [facility] CO2 18(L) 22 - 29 mmol/L 06/07/2024 3:08 AM CDT [facility] Calcium 9.8 8.4 - 10.4 mg/dL 06/07/2024 3:08 AM CDT [facility] Anion Gap 20(H) 6 - 16 mmol/L 06/07/2024 3:08 AM CDT [facility] BUN 27(H) 5.3 - 18.7 mg/dL 06/07/2024 3:08 AM CDT [facility] Creatinine 1.07 0.57 - 1.11 mg/dL 06/07/2024 3:08 AM CDT [facility] Alkaline Phosphatase 66 40 - 150 U/L 06/07/2024 3:08 AM CDT [facility] ALT 18 6 - 57 U/L 06/07/2024 3:08 AM CDT [facility] AST 36 10 - 48 U/L 06/07/2024 3:08 AM CDT [facility] Protein Total 9.0(H) 6.4 - 8.3 gm/dL 06/07/2024 3:08 AM CDT [facility] Albumin 5.0 3.4 - 5.0 gm/dL 06/07/2024 3:08 AM CDT [facility] Bilirubin Total 0.7 0.2 - 1.2 mg/dL 06/07/2024 3:08 AM CDT [facility] eGFR by CKD-EPI 76(L) >=90 mL/min/1.7 3 m2 06/07/2024 3:08 AM CDT [facility] Blood BLOOD SPECIMEN / Unknown Venipuncture / Unknown 06/07/2024 2:50 AM CDT 06/07/2024 2:50 AM CDT us Momo Yung MD LAB - CHEMISTRY ORDERABLES F inal Result [facility] [address] [place] [address] * CBC W AUTO DIFFERENTIAL (06/07/2024 2:49 AM CDT) Pathologist [facility] WBC 9.6 4.0 - 10.7 x10E9/L 06/07/2024 2:51 AM CDT [facility] RBC Count 4.88 3.90 - 5.20 x10E12/L 06/07/2024 2:51 AM CDT [facility] Hemoglobin 14.8 11.9 - 15.8 g/dL 06/07/2024 2:51 AM CDT [facility] Hematocrit 44.1 34.8 - 46.1 % 06/07/2024 2:51 AM CDT [facility] MCV 90.4 80.0 - 98.0 fL 06/07/2024 2:51 AM CDT [facility] MCH 30.3 26.7 - 33.6 pg 06/07/2024 2:51 AM CDT [facility] MCHC 33.6 31.7 - 36.3 g/dL 06/07/2024 2:51 AM CDT [facility] RDW-CV 12.6 11.3 - 14.8 % 06/07/2024 2:51 AM CDT [facility] Platelet Count 353 150 - 420 x10E9/L 06/07/2024 2:51 AM CDT [facility] MPV 9.6 7.8 - 11.4 fL 06/07/2024 2:51 AM [facility] Neutrophil % 70.8 41.0 - 74.0 % 06/07/2024 2:51 AM [facility] Lymphocyte % 18.4 17.0 - 47.0 % 06/07/2024 2:51 AM [facility] Monocyte % 10.3 3.0 - 11.0 % 06/07/2024 2:51 AM [facility] Eosinophil % 0.0 0.0 - 7.0 % 06/07/2024 2:51 AM [facility] Basophil % 0.2 0.0 - 1.6 % 06/07/2024 2:51 AM [facility] Immature Granulocytes % 0.3 0.0 - 1.0 % 06/07/2024 2:51 AM [facility] Neutrophil Absolute 6.79 1.60 - 7.50 x10E9/L 06/07/2024 2:51 AM [facility] Lymphocyte Absolute 1.77 1.00 - 4.40 x10E9/L 06/07/2024 2:51 AM [facility] Monocyte Absolute 0.99 0.15 - 1.00 x10E9/L 06/07/2024 2:51 AM [facility] Eosinophil Absolute 0.00 0.00 - 0.60 x10E9/L 06/07/2024 2:51 AM [facility] Basophil Absolute 0.02 0.00 - 0.13 x10E9/L 06/07/2024 2:51 AM [facility] Blood BLOOD SPECIMEN / Unknown Venipuncture / Unknown 06/07/2024 2:49 AM CDT 06/07/2024 2:49 AM CDT Momo Yung MD LAB - HEMATOLOGY ORDERABLES Final Result [facility] [address] [place] [address] documented in this encounter Visit Diagnoses Diagnosis Abdominal pain, epigastric Nausea vomiting and diarrhea Nausea with vomiting documented in this encounter Administered Medications Active Administered Medications - up to 3 most recent administrations Medication Order MAR Action Action Date Dose Rate Site dextrose 5 % and lactated ringers infusion at 125 mL/hr, Intravenous, CONTINUOUS, Starting on Sat06/07/24 at 0400, Until Discontinued $ New Bag/Syringe 06/07/2024 5:24 AM CDT 125 mL/hr iopamidol (Isovue 370) 76 % contrast Intravenous, CONTRAST ONCE, Starting on Sat06/07/24 at 0315, Until Sat06/09/24 at 0314 $ Given - Contrast 06/07/2024 3:24 AM CDT 80 mL Inactive Administered Medications - up to 3 most recent administrations Medication Order MAR Action Action Date Dose Rate Site 0.9% NaCl injection 0-10 mL 0-10 mL, Intracatheter, ONCE PRN, Other, Contrast flush, 1 dose, Starting on 06/07/24 at 0315, Until Sat06/07/24 at 0324, For administration with contrast. $ Given 06/07/2024 3:24 AM CDT 10 mL 0.9% NaCl IV flush bag 0-250 mL, Intracatheter, ONCE PRN, Contrast flush, 1 dose, Starting on 06/07/24 at 0315, Until Sat06/07/24 at 0324, For administration with contrast $ Given 06/07/2024 3:24 AM CDT 50 mL ALPRAZolam (Xanax) tablet 0.5 mg 0.5 mg, Oral, NOW, 1 dose, On Sat06/07/24 at 0345 $ Given 06/07/2024 3:54 AM CDT 0.5 mg famotidine (Pepcid) injection 20 mg 20 mg, Intravenous, NOW, 1 dose, On 06/07/24 at 0300, Dilute with 0.9% NaCl, D5W solution, or SWI to a volume of 5 to 10 mL and administer over at least 2 minutes. $ Given 06/07/2024 3:00 AM CDT 20 mg prochlorperazine (Compazine) injection 10 mg 10 mg, Intravenous, ONCE, 1 dose, On 06/07/24 at 0300, Max intravenous rate = 5 mg/min $ Given 06/07/2024 2:54 AM CDT 10 mg documented in this encounter Active and Recently Administered Medications Times are shown in CDT. Scheduled Medication Order 06/05/2024 06/06/2024 06/07/2024 ALPRAZolam (Xanax) tablet 0.5 mg (COMPLETED) 0.5 mg, Oral, NOW, 1 dose, On 06/07/24 at 0345 0354 ($ Given - Prov ider: Vangie Trotter RN) famotidine (Pepcid) injection 20 mg (COMPLETED) 20 mg, Intravenous, NOW, 1 dose, On 06/07/24 at 0300, Dilute with 0.9% NaCl, D5W solution, or SWI to a volume of 5 to 10 mL and administer over at least 2 minutes. 0300 ($ Given - Prov ider: KATEY HughesP) iopamidol (Isovue 370) 76 % contrast Intravenous, CONTRAST ONCE, Starting on 06/07/24 at 0315, Until Sat06/09/24 at 0314 0324 ($ Given - Cont rast - Provider: Bhavesh Foote, RT(R)CT) lactated ringers IV bolus 1,000 mL, at 1,935.48 mL/hr, Administer over 31 Minutes, NOW, 1 dose, On 06/07/24 at 0230 0230 (Due) prochlorperazine (Compazine) injection 10 mg (COMPLETED) 10 mg, Intravenous, ONCE, 1 dose, On 06/07/24 at 0300, Max intravenous rate = 5 mg/min 0254 ($ Given - Prov ider: KATEY HughesP) Continuous Medication Order 06/05/2024 06/06/2024 06/07/2024 dextrose 5 % and lactated ringers infusion at 125 mL/hr, Intravenous, CONTINUOUS, Starting on Sat06/07/24 at 0400, Until Discontinued 0524 ($ New Bag/Syri nge - Provider: Vangie Trotter, RN) PRN Medication Order 06/05/2024 06/06/2024 06/07/2024 0.9% NaCl injection 0-10 mL (COMPLETED) 0-10 mL, Intracatheter, ONCE PRN, Other, Contrast flush, 1 dose, Starting on 06/07/24 at 0315, Until 06/07/24 at 0324, For administration with contrast. 0324 ($ Given - Prov ider: Bhavesh Foote, RT(R)CT) 0.9% NaCl IV flush bag (COMPLETED) 0-250 mL, Intracatheter, ONCE PRN, Contrast flush, 1 dose, Starting on 06/07/24 at 0315, Until 06/07/24 at 0324, For administration with contrast 0324 ($ Given - Prov ider: Bhavesh Foote, RT(R)CT) documented in this encounter Care Teams Quality Assurance Supervisor Relationship Specialty Start Date End Date Ronel Thornton DO [address] [place] [address] PCP - General Family Medicine 03/18/23 Ronel Thornton DO [address] [place] [address] PCP - Attributed-[facility] STL 04/12/23 documented as of this encounter
--- OUTSIDE RECORDS SUMMARY | 2024-06-07 08:11 | XMS_ITS | Encounter Summary ---
Author Organization [facility] Address [address] [facility] [place] [address] Care Team Providers Care Senior Electrical Design Engineer Name Role Phone Mellissa Jiménez MD Primary Care Provider [phone] Ronel Thornton DO Primary Care Provider Daphnie Gillespie MD Unavailable Juliana Peralta EQUITY SALES ASSISTANT Unavailable [phone] Juliana Peralta EQUITY SALES ASSISTANT Unavailable [phone] Ronel Thornton DO Unavailable [phone] Kenyatta Taylor RN Unavailable [phone] Tiago Lew Unavailable [phone] Reason for Visit * Reason Onset Date Comments Forms/questionnaires 01/23/2021 Encounter Details Date Type Department Care Team (Late st Contact Info) Description 01/23/2021 Telephone [facility] Pediatrics - Surgery [address] [place] [address] Daphnie Gillespie MD [address] [place] [phone] Forms/questionnaires Social History Tobacco Use Types [...] on file Legal Sex Female 6:25 PM ANAESTHESIOLOGIST Gender Identity Not on file Sexual Orientation Not on file COVID-19 Exposure Response Date Recorded In the last month, have you been in contact with someone who was confirmed or suspected to have Coronavirus / COVID-19? No / Unsure 01/24/2021 11:47 AM ANAESTHESIOLOGIST documented as of this encounter Functional Status [...] wanted to know if it was received. STHESIOLOGIST documented in this encounter Plan of Treatment Upcoming Encounters Date Type Department Care Team (Late st Contact Info) Description 06/08/2024 1:20 PM CDT Office Visit [address] [address] Ronel Thornton DO [address] [place] [address] 01/20/2025 8:20 AM ANAESTHESIOLOGIST Office Visit [address] [address] Ronel Thornton DO [address] [place] [address] documented as of this encounter Visit Diagnoses Not on filedocumented in this encounter Additional Health Concerns Infection Onset Date Last Indicated Resolved Time COVID-19 Under Investigation 08/10/2021 08/10/2021 08/10/2021 2:59 AM CDT documented as of this encounter Care Teams Senior Electrical Design Engineer Relationship Specialty Start Date End Date Mellissa Jiménez MD [address] [place] [address] [place] [address] PCP - General Family Medicine 04/25/20 03/17/23 Ronel Thornton DO [address] [place], [place] [address] [address] PCP - General Family Medicine 03/18/23 Daphnie Gillespie MD [facility] [place] [address] PCP - Attributed-[facility] STL 02/11/23 04/11/23 Ronel Thornton DO [address] [place] [id number] PCP - Attributed-[facility] STL 04/12/23 Juliana Peralta MSW Outpatient Telephone Order Clerk Room Service Care Management 04/24/2304/11 Juliana Peralta MSW Outpatient Telephone Order Clerk Room Service Care Management 04/30/2304/12 Kenyatta Taylor RN [address] [address] Transportation SuperintendentCredit Underwriter 09/02/23 10/04/23 Tiago Lew Care Coordination Specialist Care Management 09/26/23 11/10/23 documented as of this encounter
--- OUTSIDE RECORDS SUMMARY | 2024-06-07 08:11 | XMS_ITS | Clinical Summary ---
Author Organization [facility] Address [address] [place] [address] Phone Care Team Providers Care Private Branch Exchange Operator Name Role Phone Mellissa Jiménez MD [...] on file Legal Sex Female 10:44 PM DEPARTMENT MANAGER Gender Identity Not on file Sexual Orientation [...] 52.2 kg (115 lb) 04/20/2023 2:30 AM DEPARTMENT MANAGER Height 152.4 cm (5') 04/20/2023 2:30 AM DEPARTMENT MANAGER Body Mass Index 22.46 04/20/2023 2:30 AM DEPARTMENT MANAGER Plan of Treatment Health Maintenance Due Date [...] 02/22/2004, 06/09/2003, 02/22/2003, Additional history exists Insurance [address] [place] [id number] Advance Directives For more information, please contact: [phone] * Full Code (Latest Code Status on File) Date Activated Date Inactivated Comments 04/20/2023 2:32 AM 04/21/2023 4:11 PM Care Teams Private Branch Exchange Operator Relationship Specialty Start Date End Date Mellissa Jiménez MD [address] [place] [address] [place] [address] PCP - General Family Practice 04/20/23
--- OUTSIDE RECORDS SUMMARY | 2024-06-07 08:11 | XMS_ITS | Encounter Summary ---
Author Organization [facility] Address [address] [facility] [place] [address] Care Team Providers Care Php Website Developer Name Role Phone Ronel Thornton DO Primary Care Provider [phone] Ronel Thornton DO Unavailable [phone] Encounter Details Date Type Department Care Team (Latest Contact Info) Description 06/07/2024 Travel Social History Tobacco Use Types Packs/Day Years [...] Recorded Patient Health Questionnaire-2 Score 0 05/22/2024 [facility] [place] of Occupat ional Health - Occupational Stress [...] place to sleep or slept in a penitentiary (including now)? No 04/24/2023 Comments No Sex and Gender Information Value Date Recorded Sex Assigned at Not on file Legal Sex Female 6:25 PM SCIENTIST ENGINEER Gender Identity Not on file Sexual Orientation Not on file documented as of this encounter Functional Status * Is person deaf or have serious hearing difficulty? Answer Date of Assessment Author No 04/29/2023 1:10 PM Gloria Zuniga RN * Is person blind or have serious difficulty seeing? Answer Date of Assessment Author No 04/29/2023 1:10 PM Gloria Zuniga RN * Does person have serious difficulty walking/climbing stairs? Answer Date of Assessment Author No 04/29/2023 1:10 PM Gloria Zuniga RN * Does person have difficulty dressing/bathing? Answer Date of Assessment Author No 04/29/2023 1:10 PM Gloria Zuniga RN * Does person have difficulty doing errands alone? Answer Date of Assessment Author No 04/29/2023 1:10 PM CDT Gloria Womack RN documented as of this encounter Mental Status * Does person have difficulty concentrating/remembering/making decisions? Answer Entry Date Author No 04/29/2023 1:10 PM CDT Gloria Womack RN documented in this encounter Plan of Treatment Upcoming Encounters Date Type Department Care Team (Late st Contact Info) Description 06/08/2024 1:20 PM CDT Office Visit [address] [address] Ronel Thornton DO [address] [place] [address] 01/20/2025 8:20 AM SCIENTIST ENGINEER Office Visit [address] [address] Ronel Thornton DO [address] [place] [address] documented as of this encounter Visit Diagnoses Not on filedocumented in this encounter Care Teams Php Website Developer Relationship Specialty [place] [address] [place] [address] PCP - General Family Medicine 03/18/23 Ronel Thornton DO [facility] [place] [address] PCP - Attributed-[facility] STL 04/12/23 documented as of this encounter
--- OUTSIDE RECORDS SUMMARY | 2024-06-07 08:11 | XMS_ITS | Encounter Summary ---
Author Organization [facility] Address [address] [facility] [place] [address] Care Team Providers Care Wire Setter Name Role Phone Mellissa Jiménez MD Primary Care Provider [phone] Ronel Thornton DO Primary Care Provider Daphnie Gillespie MD Unavailable Juliana Peralta RETAIL DEPARTMENT RESET Unavailable [phone] Juliana Peralta RETAIL DEPARTMENT RESET Unavailable [phone] Ronel Thornton DO Unavailable [phone] Kenyatta Taylor RN Unavailable [phone] Tiago Lew Unavailable [phone] Reason for Visit * Reason Onset Date Comments Eating disorder 08/04/2020 Encounter Details Date Type Department Care Team (Late st Contact Info) Description 08/04/2020 Telephone [facility] Living Manager [address] [place] [address] Flor Martinez, SPANISH INTERPRETER Eating disorder Social History Tobacco Use Types Packs/Day Years Used Date Smoking Tobacco: Never Smokeless Tobacco: Never Alcohol Use Standard Drinks/Week Comments No 0 (1 standard drink = 0.6 oz pur e alcohol) Comments No Sex and Gender Information Value Date Recorded Sex Assigned at Not on file Legal Sex Female 6:25 PM POLYMER SPECIALIST Gender Identity Not on file Sexual [...] phone calls with Kenyatta's mother Esperanza and [facility] this week regarding Kenyatta's relapse, and mother's belief that she needs to be admitted to [facility]. Spoke with mother again this a.m, and they have a phone intake assessment with [facility] next SaturdayAugust 08. documented in this encounter Plan of Treatment Upcoming Encounters Date Type Department Care Team (Late st Contact Info) Description 06/08/2024 1:20 PM CDT Office Visit [facility] - Family Medicine [address] [place] [address] Ronel Thornton DO [address] [place] [address] 01/20/2025 8:20 AM POLYMER SPECIALIST Office Visit [facility] - Family Medicine [address] [place] [phone] [place] [address] [place] [address] documented as of this encounter Visit Diagnoses Not on filedocumented in this encounter Additional Health Concerns Infection Onset Date Last Indicated Resolved Time COVID-19 Under Investigation 08/10/2021 08/10/2021 08/10/2021 2:59 AM CDT documented as of this encounter Care Teams Wire Setter Relationship Specialty Start Date End Date Mellissa Jiménez MD [address] [place] [address] [place] [id number] PCP - General Family Medicine 04/25/20 03/17/23 Ronel Thornton DO [address] [place] [address] PCP - General Family Medicine 03/18/23 Daphnie Gillespie MD [address] [place] [address] PCP - Attributed-[facility] STL 02/11/23 04/11/23 Ronel Thornton DO [address] [place] [id number] PCP - Attributed-[facility] STL 04/12/23 Juliana Peralta MSW Outpatient Construction Sales Representative Care Management 04/24/2304/11 Juliana Peralta MSW Outpatient Construction Sales Representative Care Management 04/30/2304/12 Kenyatta Taylor, RN [address] [address] Guidance CounselorLurer 09/02/23 10/04/23 Tiago Lew Care Coordination Specialist Care Management 09/26/23 11/10/23 documented as of this encounter
--- OUTSIDE RECORDS SUMMARY | 2024-06-07 08:11 | XMS_ITS | Clinical Summary ---
Author Organization [facility] Address [address] [place] [address] Care Team Providers Care Fender Finisher Name Role Phone Ronel Thornton DO Primary Care Provider [phone] Ronel Thornton DO Unavailable [phone] [facility],non-owned Affiliates and Associated Physician Practices is amultiple site organization consisting of ambulatory clinics and hospital sitesin [place], [place], [place] and [place]. This disclosure is being madepursuant to the Care Everywhere program and may not contain all information available regarding this patient. Last updated 17.[facility] Allergies No known active allergies Medications * This document contains information received from the source organization and may not represent a complete record from that organization. * Be aware that medications may not be up to date on this document. Alwaysverify current medications with the patient. ALPRAZolam (Xanax) 0.5 MG tablet Take 1 (one) tablet by mouth at bedtime 025 Active OLANZapine (ZyPREXA) 5 MG tablet Take 1 (one) tablet by mouth at bedtime 90 tablet 025 Active escitalopram (Lexapro) 5 MG tablet Take 1 (one) tablet by mouth once daily 30 tablet 1 025 Active prochlorperaz ine (Compazine) 25 MG suppository Insert 1 (one) suppository into the rectum every 12 hours as needed for Nausea/Vomiting 2 suppository Active prochlorperaz ine (Compazine) 5 MG tablet Take 1 (one) tablet by mouth every 8 hours as needed for Nausea/Vomiting 20 tablet Active scopolamine (Transderm-Sc op) 1 MG patch Apply 1 (one) patch to skin every 72 hours as needed for Other 4 patch Active famotidine (Pepcid) 20 MG tablet Take 1 (one) tablet by mouth every 12 hours 30 tablet Active hydrOXYzine HCl (Atarax) 50 MG tabletIndicat ions:Anxiety Take 1 (one) tablet by mouth every 6 hours as needed Reasons: Feeling Anxious 40 tablet 024 10/03 Discontinued( No Pharm No AVS) melatonin 3 MG tabletIndicat ions:Insomnia Take 1 (one) tablet by mouth nightly as needed for Insomnia Reasons: Trouble Sleeping 30 tablet 10/03 Discontinued( No Pharm No AVS) pantoprazole EC (Protonix) 40 MG tabletIndicat ions:Gastroes ophageal Reflux Disease Take 1 (one) tablet by mouth once daily Reasons: Gastroesophageal Reflux Disease 30 tablet 024 10/03 Discontinued( No Pharm No AVS) mirtazapine (Remeron) 15 MG tabletIndicat ions:Major Depressive Disorder Take 1 (one) tablet by mouth at bedtime Reasons: Major Depressive Disorder 30 tablet 024 10/03 Discontinued( No Pharm No AVS) gabapentin (Neurontin) 400 MG capsuleIndica tions:Mood Disorder Take 1 (one) capsule by mouth 2 times daily Reasons: Mood Disorder 60 capsule 024 10/03 Discontinued( No Pharm No AVS) lamoTRIgine XR 24hr (LaMICtal XR) 250 MG tablet Take 1 (one) tablet by mouth once daily 90 tablet 2 024 10/03 Discontinued( No Pharm No AVS) prochlorperaz ine (Compazine) 5 MG tablet Take 1 (one) tablet by mouth every 8 hours as needed for Nausea/Vomiting 30 tablet 025 06/07 Discontinued Active Problems Problem Noted Date Diagnosed [...] 01/18/2020 Assessment & Plan (01/08/2021 3:06 PM BASKET GRADER): Assessment: Major depressive disorder, generalized anxiety disorder and substance abuse disorder. Plan: - klonopin and neurontin are all habit forming, concerns they are addictive, plan to discuss intermediate project manager goal of weaning as outpatient - must stop all alcohol and MJ - Increased Prozac to 40 - Increased zyprexa to 15 - Melatonin 6mg QHS for sleep - avoid narcotics - taper off zyprexa as outpatient per psychiatry recs Assessment & Plan (01/07/2021 4:50 PM BASKET GRADER): Assessment: Major depressive disorder, generalized anxiety disorder and substance abuse disorder. Plan: - klonopin and neurontin are all habit forming, concerns they are addictive, plan to discuss senior living goal of weaning as outpatient - must stop all alcohol and MJ - Increased Prozac to 40 - Increased zyprexa to 15 - Melatonin 6mg QHS for sleep - avoid narcotics - taper off zyprexa as outpatient per psychiatry recs Assessment & Plan (01/06/2021 5:55 PM BASKET GRADER): Assessment: Major depressive disorder, generalized anxiety disorder and substance abuse disorder. Plan: - klonopin and neurontin are all habit forming, concerns they are addictive, plan to discuss senior living goal of weaning as outpatient - must [...] slowly. Assessment & Plan (04/07/2020 6:45 PM BASKET GRADER): Assessment: Hx of major depressive disorder and generalized anxiety disorder. Pt has been seen by psychiatry and psychology, now improved since starting/optimizing zyprexa QHS, clonazepam TID, and prozac QD. Plan: - Prozac 30 mg QD (dose of 30 mg started on 03/09/20, Prozac initially began 02/07) - Zyprexa 5 mg QHS - Klonopin 0.5mg TID Assessment & Plan (04/06/2020 3:54 PM BASKET GRADER): Assessment: Hx of major depressive disorder and generalized anxiety disorder. Pt seen by psychiatry on admission and was started elavil, but continued to have anxiety. Elavil was discontinued due to persistent tachycardia and hypotension. [facility] she was [facility] on [...] TID Assessment & Plan (04/05/2020 10:49 AM BASKET GRADER): Assessment: Hx of major depressive disorder and [...] TID Assessment & Plan (04/04/2020 10:23 AM BASKET GRADER): Assessment: Hx of major depressive disorder and [...] TID Assessment & Plan (04/03/2020 6:30 PM BASKET GRADER): Assessment: Hx of major depressive disorder and [...] TID Assessment & Plan (04/01/2020 11:15 AM BASKET GRADER): Assessment: Hx of major depressive disorder and generalized anxiety disorder. Pt seen by psychiatry on admission and was started elavil, but continued to have anxiety. Elavil was discontinued due to persistent tachycardia and hypotension. [facility], she was started on zyprexa QHS, [...] dose) Assessment & Plan (03/31/2020 10:07 AM BASKET GRADER): Assessment: Hx of major depressive disorder and [...] dose) Assessment & Plan (03/30/2020 2:24 PM BASKET GRADER): Assessment: Hx of major depressive disorder and [...] dose) Assessment & Plan (03/29/2020 6:50 AM BASKET GRADER): Assessment: Hx of major depressive disorder and [...] dose) Assessment & Plan (03/27/2020 10:30 AM BASKET GRADER): Assessment: Hx of major depressive disorder and [...] dose) Assessment & Plan (03/26/2020 11:15 AM BASKET GRADER): Assessment: Hx of major depressive disorder and [...] dose) Assessment & Plan (03/25/2020 8:58 AM BASKET GRADER): Assessment: Hx of major depressive disorder and [...] dose) Assessment & Plan (03/24/2020 6:44 AM BASKET GRADER): Assessment: Hx of major depressive disorder and [...] dose) Assessment & Plan (03/23/2020 12:19 PM BASKET GRADER): Assessment: Hx of major depressive disorder and [...] dose) Assessment & Plan (03/22/2020 10:47 AM BASKET GRADER): Assessment: Hx of major depressive disorder and [...] recommendations) Assessment & Plan (03/21/2020 3:11 PM BASKET GRADER): Assessment: Hx of major depressive disorder and [...] mg. Assessment & Plan (03/20/2020 10:31 AM BASKET GRADER): Assessment: Hx of major depressive disorder and [...] 03/21. Assessment & Plan (03/19/2020 10:38 AM BASKET GRADER): Assessment: Hx of major depressive disorder and [...] withdrawal Assessment & Plan (03/18/2020 12:58 PM BASKET GRADER): Assessment: Hx of major depressive disorder and [...] anxiety Assessment & Plan (03/17/2020 10:33 AM BASKET GRADER): Assessment: Hx of major depressive disorder and [...] appreciated Assessment & Plan (03/16/2020 2:24 PM BASKET GRADER): Assessment: Hx of major depressive disorder and [...] recommendations Assessment & Plan (03/15/2020 11:11 AM BASKET GRADER): Assessment: Hx of major depressive disorder and [...] anxiety Assessment & Plan (03/14/2020 6:28 AM BASKET GRADER): Assessment: Hx of major depressive disorder and [...] anxiety Assessment & Plan (03/13/2020 6:28 AM BASKET GRADER): Assessment: Hx of major depressive disorder and [...] anxiety Assessment & Plan (03/12/2020 11:35 AM BASKET GRADER): Assessment: Hx of major depressive disorder and [...] anxiety Assessment & Plan (03/11/2020 12:43 PM BASKET GRADER): Assessment: Hx of major depressive disorder and [...] anxiety Assessment & Plan (03/10/2020 6:11 AM BASKET GRADER): Assessment: Hx of major depressive disorder and [...] anxiety Assessment & Plan (03/09/2020 6:24 AM BASKET GRADER): Assessment: Hx of major depressive disorder and [...] anxiety Assessment & Plan (03/08/2020 10:51 AM BASKET GRADER): Assessment: Hx of major depressive disorder and [...] anxiety Assessment & Plan (03/07/2020 9:15 AM BASKET GRADER): Assessment: Hx of major depressive disorder and [...] -Develop daily schedule with assistance of early childhood-Alma Assessment & Plan (03/06/2020 10:09 AM BASKET GRADER): Assessment: Hx of major depressive disorder and [...] anxiety Assessment & Plan (03/05/2020 9:56 AM BASKET GRADER): Assessment: Hx of major depressive disorder and [...] anxiety Assessment & Plan (03/04/2020 12:58 PM BASKET GRADER): Assessment: Hx of major depressive disorder and [...] anxiety Assessment & Plan (03/03/2020 3:16 PM BASKET GRADER): Assessment: Hx of major depressive disorder and [...] anxiety Assessment & Plan (03/01/2020 12:04 PM BASKET GRADER): Assessment: Hx of major depressive disorder and [...] anxiety Assessment & Plan (02/29/2020 12:53 PM BASKET GRADER): Assessment: Hx of major depressive disorder and [...] anxiety Assessment & Plan (02/28/2020 9:22 AM BASKET GRADER): Assessment: Hx of major depressive disorder and [...] anxiety Assessment & Plan (02/27/2020 10:27 AM BASKET GRADER): Assessment: Hx of major depressive disorder and [...] negative Assessment & Plan (02/26/2020 11:12 AM BASKET GRADER): Assessment: Hx of major depressive disorder and [...] pending Assessment & Plan (02/25/2020 9:33 AM BASKET GRADER): Assessment: Hx of major depressive disorder and [...] pending Assessment & Plan (02/24/2020 6:51 AM BASKET GRADER): Assessment: Hx of major depressive disorder and [...] pending Assessment & Plan (02/23/2020 10:19 AM BASKET GRADER): Assessment: Hx of major depressive disorder and [...] pending Assessment & Plan (02/22/2020 11:07 AM BASKET GRADER): Assessment: Hx of major depressive disorder and [...] QHS Assessment & Plan (02/21/2020 10:54 AM BASKET GRADER): Assessment: History of major depressive disorder and [...] tablet Assessment & Plan (02/20/2020 11:33 AM BASKET GRADER): Assessment: History of major depressive disorder and [...] tablet Assessment & Plan (02/19/2020 3:05 PM BASKET GRADER): Assessment: History of major depressive disorder and [...] tablet Assessment & Plan (02/18/2020 10:13 AM BASKET GRADER): Assessment: History of major depressive disorder and [...] tablet Assessment & Plan (02/17/2020 12:26 PM BASKET GRADER): Assessment: History of major depressive disorder and [...] tablet Assessment & Plan (02/16/2020 1:14 PM BASKET GRADER): Assessment: History of major depressive disorder and [...] tablet Assessment & Plan (02/15/2020 12:31 PM BASKET GRADER): Assessment: History of major depressive disorder and [...] tablet Assessment & Plan (02/14/2020 2:24 PM BASKET GRADER): Assessment: History of major depressive disorder and [...] tablet Assessment & Plan (02/13/2020 12:00 PM BASKET GRADER): Assessment: History of major depressive disorder and [...] tablet Assessment & Plan (02/12/2020 11:20 AM BASKET GRADER): Assessment: History of major depressive disorder and [...] 5 mg QD; will consider increasing on /4 per Adolescent recs - Clonazapam wafer TID - Zyprexa 2.5 mg tablet Assessment & Plan (02/11/2020 11:54 AM BASKET GRADER): Assessment: History of major depressive disorder and [...] tablet Assessment & Plan (02/10/2020 12:09 PM BASKET GRADER): Assessment: History of major depressive disorder and [...] tablet Assessment & Plan (02/09/2020 11:50 AM BASKET GRADER): Assessment: History of major depressive disorder and [...] atarax Assessment & Plan (02/08/2020 12:54 PM BASKET GRADER): Assessment: History of major depressive disorder and [...] atarax Assessment & Plan (02/07/2020 11:47 AM BASKET GRADER): Assessment: History of major depressive disorder and [...] atarax Assessment & Plan (02/06/2020 8:12 AM BASKET GRADER): Assessment: History of major depressive disorder and [...] atarax Assessment & Plan (02/05/2020 9:12 AM BASKET GRADER): Assessment: History of major depressive disorder and [...] atarax Assessment & Plan (02/04/2020 12:43 PM BASKET GRADER): Assessment: History of major depressive disorder and [...] atarax Assessment & Plan (02/03/2020 2:28 PM BASKET GRADER): Assessment: History of major depressive disorder and [...] atarax Assessment & Plan (02/02/2020 4:02 PM BASKET GRADER): Assessment: History of major depressive disorder and [...] atarax Assessment & Plan (02/01/2020 12:12 PM BASKET GRADER): Assessment: History of major depressive disorder and [...] atarax Assessment & Plan (01/31/2020 1:04 PM BASKET GRADER): Assessment: History of major depressive disorder and [...] atarax Assessment & Plan (01/30/2020 10:30 AM BASKET GRADER): Assessment: History of major depressive disorder and [...] atarax Assessment & Plan (01/29/2020 9:40 PM BASKET GRADER): Assessment: History of major depressive disorder and [...] atarax Assessment & Plan (01/28/2020 11:59 AM BASKET GRADER): Assessment: History of major depressive disorder and [...] lunch Assessment & Plan (01/27/2020 3:57 PM BASKET GRADER): Assessment: History of major depressive disorder and [...] lunch Assessment & Plan (01/26/2020 6:01 PM BASKET GRADER): Assessment: History of major depressive disorder and [...] atarax Assessment & Plan (01/25/2020 2:56 PM BASKET GRADER): Assessment: History of major depressive disorder and [...] PO. Assessment & Plan (01/24/2020 8:11 AM BASKET GRADER): Assessment: History of major depressive disorder and [...] (02/22/20) Assessment & Plan (01/23/2020 7:09 AM BASKET GRADER): Assessment: History of major depressive disorder and [...] (02/22/20) Assessment & Plan (01/22/2020 7:52 AM BASKET GRADER): Assessment: History of major depressive disorder and [...] (02/22/20) Assessment & Plan (01/21/2020 7:40 AM BASKET GRADER): Assessment: History of major depressive disorder and [...] (02/22/20) Assessment & Plan (01/20/2020 7:36 AM BASKET GRADER): Assessment: History of major depressive disorder and [...] (02/22/20) Assessment & Plan (01/19/2020 7:22 AM BASKET GRADER): Assessment: History of major depressive disorder and [...] (02/22/20) Assessment & Plan (01/18/2020 4:35 PM BASKET GRADER): Assessment: History of major depressive disorder and [...] range. Assessment & Plan (04/08/2020 1:31 PM BASKET GRADER): Assessment: 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, SMA [...] PT Assessment & Plan (04/07/2020 2:52 PM BASKET GRADER): Assessment: 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, SMA [...] PT Assessment & Plan (04/07/2020 6:44 PM BASKET GRADER): Assessment: Marlee is a 19 year old [...] gravity, BMP/Mg/Phos Q T/ Assessment & Plan (04/06/2020 6:45 PM BASKET GRADER): Assessment: Marlee is a 19 year old [...] gravity, BMP/Mg/Phos Q T/ Assessment & Plan (04/05/2020 3:22 PM BASKET GRADER): Assessment: 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, SMA [...] PT Assessment & Plan (04/05/2020 10:49 AM BASKET GRADER): Assessment: Marlee is a 19 year old [...] / Assessment & Plan (04/04/2020 3:59 PM BASKET GRADER): Assessment: 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, SMA [...] daily Assessment & Plan (04/04/2020 10:21 AM BASKET GRADER): Assessment: Marlee is a 19 year old [...] T/ Assessment & Plan (04/03/2020 12:59 PM BASKET GRADER): Assessment: Marlee is a 19 year old [...] daily Assessment & Plan (04/02/2020 4:19 PM BASKET GRADER): Assessment: Marlee is a 19 year old [...] daily Assessment & Plan (04/01/2020 11:55 AM BASKET GRADER): Assessment: 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 and [...] daily Assessment & Plan (04/01/2020 11:15 AM BASKET GRADER): Assessment: Marlee is a 19 year old [...] daily Assessment & Plan (03/31/2020 12:05 PM BASKET GRADER): Assessment: 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 and [...] daily Assessment & Plan (03/31/2020 10:06 AM BASKET GRADER): Assessment: Marlee is a 19 year old [...] daily Assessment & Plan (03/30/2020 2:24 PM BASKET GRADER): Assessment: Marlee is a 19 year old [...] daily Assessment & Plan (03/29/2020 10:40 AM BASKET GRADER): Assessment: Marlee is a 19 year old [...] daily Assessment & Plan (03/28/2020 12:29 PM BASKET GRADER): Assessment: Marlee is a 19 year old [...] allowed in room. May have water from [employer] cup. Oral fluids limited to 250 mL [...] daily Assessment & Plan (03/27/2020 10:34 AM BASKET GRADER): Assessment: Marlee is a 19 year old [...] daily Assessment & Plan (03/26/2020 11:20 AM BASKET GRADER): Assessment: Marlee is a 19 year old [...] allowed in room. May have water from [employer] cup. oral fluids limited to 250 mL [...] daily Assessment & Plan (03/25/2020 12:30 PM BASKET GRADER): Assessment: Marlee is a 19 year old [...] room. May have water from M cup. - May take shower while sitting [...] daily Assessment & Plan (03/24/2020 5:02 PM BASKET GRADER): Assessment: 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 and [...] anxiety Assessment & Plan (03/24/2020 11:19 AM BASKET GRADER): Assessment: Marlee is a 19 year old [...] daily Assessment & Plan (03/23/2020 12:20 PM BASKET GRADER): Assessment: Marlee is a 19 year old [...] daily Assessment & Plan (03/22/2020 12:20 PM BASKET GRADER): Assessment: Marlee is a 19 year old [...] daily Assessment & Plan (03/21/2020 3:10 PM BASKET GRADER): Assessment: Marlee is a 19 year old [...] 03/15/2020. Assessment & Plan (03/20/2020 10:32 AM BASKET GRADER): Assessment: Marlee is a 19 year old [...] 03/15/2020. Assessment & Plan (03/19/2020 10:37 AM BASKET GRADER): Assessment: Marlee is a 19 year old [...] was normal. Pt started KITTY protocol on 2/3 (dinner time) with TPN. However, this did [...] 3 times weekly (Tu, Th, Sun) - Small NS bolus 10 ml/kg [...] 03/15/2020. Assessment & Plan (03/18/2020 1:00 PM BASKET GRADER): Assessment: Marlee is a 19 year old [...] 03/15/2020. Assessment & Plan (03/17/2020 10:36 AM BASKET GRADER): Assessment: Marlee is a 19 year old [...] 03/15/2020. Assessment & Plan (03/16/2020 2:10 PM BASKET GRADER): Assessment: Marlee is a 19 year old [...] 03/15/2020. Assessment & Plan (03/15/2020 11:10 AM BASKET GRADER): Assessment: Marlee is a 19 year old [...] 03/15/2020 Assessment & Plan (03/14/2020 9:53 AM BASKET GRADER): Assessment: Marlee is a 19 year old [...] 03/15/2020 Assessment & Plan (03/13/2020 9:39 AM BASKET GRADER): Assessment: Marlee is a 19 year old [...] week Assessment & Plan (03/12/2020 11:35 AM BASKET GRADER): Assessment: Marlee is a 19 year old [...] week Assessment & Plan (03/11/2020 12:43 PM BASKET GRADER): Assessment: Marlee is a 19 year old [...] CMP, Mg, Phos, Trigylcerides 3 times weekly (Margaux Thurs, Sun) HEME/ONC: Mircocytic anemia 2/2 malnutrition. Iron studies from 02/27/20-Iron 66, TIBC 323, Iron % Sat 20, and transferrin 258. Iron Dextran 62.5 mg on 02/14/20. ENDO: TSH 0.13 (L) and all other labs were normal (-obtained due to persistent Tachycardia and BP issues; most likely 2/2 to eating disorder) -Repeat TSH and T4 next week Assessment & Plan (03/10/2020 9:12 AM BASKET GRADER): Assessment: Marlee is a 19 year old [...] in Assessment & Plan (03/09/2020 10:22 AM BASKET GRADER): Assessment: Marlee is a 19 year old [...] in Assessment & Plan (03/08/2020 10:52 AM BASKET GRADER): Assessment: Marlee is a 19 year old [...] in Assessment & Plan (03/07/2020 9:18 AM BASKET GRADER): Assessment: Marlee is a 19 year old [...] in Assessment & Plan (03/06/2020 10:09 AM BASKET GRADER): Assessment: Marlee is a 19 year old [...] in Assessment & Plan (03/05/2020 9:56 AM BASKET GRADER): Assessment: Marlee is a 19 year old [...] in Assessment & Plan (03/04/2020 12:58 PM BASKET GRADER): Assessment: Marlee is a 19 year old [...] A/P Assessment & Plan (03/03/2020 3:15 PM BASKET GRADER): Assessment: Marlee is a 19 year old [...] A/P Assessment & Plan (03/02/2020 12:06 PM BASKET GRADER): Assessment: Marlee is a 19 year old [...] A/P Assessment & Plan (03/01/2020 12:05 PM BASKET GRADER): Assessment: Marlee is a 19 year old [...] A/P Assessment & Plan (02/29/2020 12:52 PM BASKET GRADER): Assessment: Marlee is a 19 year old [...] Phos, Trigylcerides today and 3 times weekly (Tues, Thurs, Sun) ID: [...] A/P Assessment & Plan (02/28/2020 9:12 AM BASKET GRADER): Assessment: Marlee is a 19 year old [...] A/P Assessment & Plan (02/27/2020 10:03 AM BASKET GRADER): Assessment: Marlee is a 19 year old [...] A/P Assessment & Plan (02/26/2020 11:12 AM BASKET GRADER): Assessment: Marlee is a 19 year old [...] A/P Assessment & Plan (02/25/2020 9:32 AM BASKET GRADER): Assessment: Marlee is a 19 year old [...] A/P Assessment & Plan (02/24/2020 10:42 AM BASKET GRADER): Assessment: Marlee is a 19 year old [...] A/P Assessment & Plan (02/23/2020 10:22 AM BASKET GRADER): Assessment: Marlee is a 19 year old [...] A/P Assessment & Plan (02/22/2020 11:25 AM BASKET GRADER): Assessment: Mralee is a 19 year old with history [...] A/P Assessment & Plan (02/21/2020 10:54 AM BASKET GRADER): Assessment: Marlee is a 19 year old [...] A/P Assessment & Plan (02/20/2020 11:31 AM BASKET GRADER): Assessment: Marlee is a 19 year old [...] A/P Assessment & Plan (02/19/2020 3:04 PM BASKET GRADER): Assessment: Marlee is a 19 year old [...] TPN. Assessment & Plan (02/18/2020 10:14 AM BASKET GRADER): Assessment: Marlee is a 19 year old [...] Sat) Assessment & Plan (02/17/2020 12:30 PM BASKET GRADER): Assessment: Marlee is a 19 year old [...] pending Assessment & Plan (02/16/2020 2:29 PM BASKET GRADER): Assessment: Marlee is a 19 year old [...] pending Assessment & Plan (02/15/2020 12:33 PM BASKET GRADER): Assessment: Marlee is a 19 year old [...] pending Assessment & Plan (02/14/2020 2:23 PM BASKET GRADER): Assessment: Marlee is a 19 year old [...] pending Assessment & Plan (02/13/2020 11:59 AM BASKET GRADER): Assessment: Marlee is a 19 year old [...] pending Assessment & Plan (02/12/2020 11:49 AM BASKET GRADER): Assessment: Marlee is a 19 year old [...] recs Assessment & Plan (02/11/2020 11:56 AM BASKET GRADER): Assessment: Marlee is a 19 year old [...] recs Assessment & Plan (02/10/2020 12:11 PM BASKET GRADER): Assessment: Marlee is a 19 year old [...] SG) Assessment & Plan (02/09/2020 11:49 AM BASKET GRADER): Assessment: Marlee is a 19 year old [...] SG) Assessment & Plan (02/08/2020 12:54 PM BASKET GRADER): Assessment: Marlee is a 19 year old [...] recs. Assessment & Plan (02/07/2020 12:06 PM BASKET GRADER): Assessment: Marlee is a 19 year old [...] SG) Assessment & Plan (02/06/2020 8:12 AM BASKET GRADER): Assessment: Marlee is a 19 year old [...] SG) Assessment & Plan (02/05/2020 9:12 AM BASKET GRADER): Assessment: Marlee is a 19 year old [...] TG) Assessment & Plan (02/04/2020 12:52 PM BASKET GRADER): Assessment: Marlee is a 19 year old [...] TG) Assessment & Plan (02/03/2020 2:38 PM BASKET GRADER): Assessment: Marlee is a 19 year old [...] TG) Assessment & Plan (02/02/2020 4:02 PM BASKET GRADER): Assessment: Marlee is a 19 year old [...] QOD Assessment & Plan (02/01/2020 12:08 PM BASKET GRADER): Assessment: Marlee is a 19 year old [...] RBCs. Assessment & Plan (01/31/2020 1:05 PM BASKET GRADER): Assessment: Marlee is a 19 year old [...] hematuria Assessment & Plan (01/30/2020 10:30 AM BASKET GRADER): Assessment: Marlee is a 19 year old [...] 10.2 Assessment & Plan (01/29/2020 9:39 PM BASKET GRADER): Assessment: Marlee is a 19 year old [...] syndrome Assessment & Plan (01/28/2020 11:59 AM BASKET GRADER): Assessment: Marlee is a 19 year old [...] QOD Assessment & Plan (01/27/2020 3:59 PM BASKET GRADER): Assessment: Marlee is a 19 year old [...] QOD Assessment & Plan (01/26/2020 5:14 PM BASKET GRADER): Assessment: Marlee is a 19 year old [...] QOD Assessment & Plan (01/25/2020 2:58 PM BASKET GRADER): Assessment: Marlee is a 19 year old [...] QOD Assessment & Plan (01/24/2020 11:54 AM BASKET GRADER): Assessment: Marlee is a 19 year old [...] orthostatics Assessment & Plan (01/23/2020 7:09 AM BASKET GRADER): Assessment: Marlee is a 19 year old [...] orthostatics Assessment & Plan (01/22/2020 4:25 PM BASKET GRADER): Assessment: Marlee is a 19 year old [...] orthostatics Assessment & Plan (01/21/2020 8:15 AM BASKET GRADER): Assessment: Marlee Chavez is a 19 year [...] orthostatics Assessment & Plan (01/20/2020 7:36 AM BASKET GRADER): Assessment: Marlee Chavez is a 19 year [...] orthostatics Assessment & Plan (01/19/2020 7:20 AM BASKET GRADER): Assessment: Marlee Chavez is a 19 year [...] orthostatics Assessment & Plan (01/18/2020 4:30 PM BASKET GRADER): Assessment: Marlee Chavez is a 19 year [...] consult Assessment & Plan (03/27/2020 10:35 AM BASKET GRADER): Assessment: Marlee is admitted on ED Protocol for severe malnutrition. Following feeding plan per [facility]olescent [facility] and Nutrition. Plan: - see plan under ARFID problem Assessment & Plan (03/26/2020 11:20 AM BASKET GRADER): Assessment: Marlee is admitted on ED Protocol for severe malnutrition. Following feeding plan per Adolescent Medicine and Nutrition. Plan: - see plan under ARFID problem Assessment & Plan (03/24/2020 11:19 AM BASKET GRADER): Assessment: Marlee is admitted on ED Protocol for severe malnutrition. Following feeding plan per Adolescent Medicine and Nutrition. Plan: - see plan under ARFID problem Assessment & Plan (03/23/2020 9:00 AM BASKET GRADER): Assessment: Marlee is admitted on ED Protocol for severe malnutrition. Following feeding plan per Adolescent Medicine and Nutrition. Plan: - see plan under ARFID problem Assessment & Plan (03/22/2020 12:21 PM BASKET GRADER): Assessment: Marlee is admitted on ED Protocol for severe malnutrition. Following feeding plan per Adolescent Medicine and Nutrition. Plan: - see plan under ARFID problem Assessment & Plan (03/17/2020 4:26 PM BASKET GRADER): Assessment: 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 and [...] anxiety Assessment & Plan (03/15/2020 11:10 AM BASKET GRADER): Assessment: Marlee is admitted on ED Protocol for severe malnutrition. Following feeding plan per Adolescent Medicine and Nutrition. Plan: - see plan under ARFID problem Assessment & Plan (03/10/2020 11:17 AM BASKET GRADER): Assessment: 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 and [...] needed Assessment & Plan (03/06/2020 10:09 AM BASKET GRADER): Assessment: Marlee is admitted on ED Protocol for severe malnutrition. Following feeding plan per Adolescent Medicine and Nutrition. Plan: - see plan under ARFID problem Assessment & Plan (03/04/2020 1:41 PM BASKET GRADER): Assessment: Marlee is admitted on ED Protocol for severe malnutrition. Following feeding plan per Adolescent Medicine and Nutrition. Plan: - see plan under ARFID problem Assessment & Plan (03/04/2020 11:50 AM BASKET GRADER): Assessment: Marlee is admitted on ED Protocol for severe malnutrition. Following feeding plan per Adolescent Medicine and Nutrition. Plan: - see plan under ARFID problem Assessment & Plan (03/03/2020 3:53 PM BASKET GRADER): Assessment: 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 and [...] dad. Assessment & Plan (02/27/2020 9:57 AM BASKET GRADER): Assessment: Marlee is admitted on ED Protocol for severe malnutrition. Following feeding plan per Adolescent Medicine and Nutrition. Plan: - see plan under ARFID problem Assessment & Plan (02/26/2020 9:59 AM BASKET GRADER): Assessment: 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 and [...] plan. Assessment & Plan (02/25/2020 5:48 PM BASKET GRADER): Assessment: 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 and [...] plan. Assessment & Plan (02/18/2020 4:54 PM BASKET GRADER): Assessment: 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 and [...] daily Assessment & Plan (02/11/2020 11:47 AM BASKET GRADER): Assessment: 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 and [...] BID Assessment & Plan (02/09/2020 11:50 AM BASKET GRADER): Assessment: Marlee is admitted on ED Protocol for severe malnutrition. Following feeding plan per Adolescent Medicine and Nutrition. Plan: - see plan under ARFID problem Assessment & Plan (02/07/2020 11:47 AM BASKET GRADER): Assessment: Marlee is admitted on ED Protocol for severe malnutrition. Following feeding plan per Adolescent Medicine and Nutrition. Plan: - see plan under ARFID problem Assessment & Plan (02/06/2020 8:12 AM BASKET GRADER): Assessment: Marlee is admitted on ED Protocol for severe malnutrition. Following feeding plan per Adolescent Medicine and Nutrition. Plan: - see plan under ARFID problem Assessment & Plan (02/05/2020 9:01 AM BASKET GRADER): Assessment: Marlee is admitted on ED Protocol for severe malnutrition. Following feeding plan per Adolescent Medicine and Nutrition. Plan: - see plan under ARFID problem Assessment & Plan (02/04/2020 12:34 PM BASKET GRADER): Assessment: Marlee is admitted on ED Protocol for severe malnutrition. Following feeding plan per Adolescent Medicine and Nutrition. Plan: - see plan under ARFID problem Assessment & Plan (02/03/2020 2:28 PM BASKET GRADER): Assessment: Marlee is admitted on ED Protocol for severe malnutrition. Following feeding plan per Adolescent Medicine and Nutrition. Plan: - see plan under ARFID problem Assessment & Plan (02/02/2020 3:57 PM BASKET GRADER): Assessment: Marlee is admitted on ED Protocol for severe malnutrition. Following feeding plan per Adolescent Medicine and Nutrition. Plan: - see plan under ARFID problem Assessment & Plan (02/01/2020 12:10 PM BASKET GRADER): Assessment: Marlee is admitted on ED Protocol for severe malnutrition. Following feeding plan per Adolescent Medicine and Nutrition. Plan: - see plan under ARFID problem Assessment & Plan (01/31/2020 1:04 PM BASKET GRADER): Assessment: Marlee is admitted on ED Protocol for severe malnutrition. Following feeding plan per Adolescent Medicine and Nutrition. Plan: - see plan under ARFID problem Assessment & Plan (01/30/2020 10:28 AM BASKET GRADER): Assessment: Marlee is admitted on ED Protocol for severe malnutrition. Following feeding plan per Adolescent Medicine and Nutrition. Plan: - see plan under ARFID problem Assessment & Plan (01/28/2020 4:29 PM BASKET GRADER): Assessment: 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 and [...] BID Assessment & Plan (01/24/2020 11:54 AM BASKET GRADER): Assessment: Marlee is admitted on ED Protocol for severe malnutrition. Following feeding plan per Adolescent Medicine and Nutrition. Plan: - see plan under ARFID problem Assessment & Plan (01/23/2020 7:09 AM BASKET GRADER): Assessment: Marlee is admitted on ED Protocol for severe malnutrition. Following feeding plan per Adolescent Medicine and Nutrition. Plan: - see plan under ARFID problem Assessment & Plan (01/22/2020 9:48 AM BASKET GRADER): Assessment: 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 and [...] () Assessment & Plan (01/22/2020 7:52 AM BASKET GRADER): Assessment: Marlee is admitted on ED Protocol for severe malnutrition. Following feeding plan per Adolescent Medicine and Nutrition. Plan: - see plan under ARFID problem Assessment & Plan (01/21/2020 10:33 AM BASKET GRADER): Assessment: 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 and [...] () Assessment & Plan (01/21/2020 7:40 AM BASKET GRADER): Assessment: Marlee is admitted on ED Protocol for severe malnutrition. Following feeding plan per Adolescent Medicine and Nutrition. Plan: - see plan under ARFID problem Assessment & Plan (01/20/2020 7:36 AM BASKET GRADER): Assessment: Marlee is admitted on ED Protocol for severe malnutrition. Following feeding plan per Adolescent Medicine and Nutrition. Plan: - see plan under ARFID problem Assessment & Plan (01/19/2020 7:22 AM BASKET GRADER): Assessment: Marlee is admitted on ED Protocol for severe malnutrition. Following feeding plan per Adolescent Medicine and Nutrition. Plan: - see plan under ARFID problem Assessment & Plan (01/18/2020 4:25 PM BASKET GRADER): Assessment: Marlee Chavez is a 19 year [...] orthostatics Assessment & Plan (01/17/2020 12:38 PM BASKET GRADER): Assessment: Marlee Chavez is a 19 year [...] anxiety Assessment & Plan (01/16/2020 1:41 PM BASKET GRADER): Assessment: Marlee Chavez is a 19 year [...] anxiety Assessment & Plan (01/15/2020 8:49 PM BASKET GRADER): Assessment: 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 and [...] counseling. Assessment & Plan (01/15/2020 11:57 AM BASKET GRADER): Assessment: Marlee Chavez is a 19 year [...] anxiety Assessment & Plan (01/14/2020 1:00 PM BASKET GRADER): Assessment: 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 and [...] () Assessment & Plan (01/14/2020 9:54 AM BASKET GRADER): Assessment: Marlee Chavez is a 19 year [...] anxiety Assessment & Plan (01/13/2020 2:34 PM BASKET GRADER): Assessment: Marlee Chavez is a 19 year [...] anxiety Assessment & Plan (01/13/2020 12:01 PM BASKET GRADER): Moderate protein-calorie malnutrition Assessment: Marlee Chavez is [...] thereafter Assessment & Plan (01/12/2020 3:40 PM BASKET GRADER): Moderate protein-calorie malnutrition Assessment: Marlee Chavez is [...] chart) Assessment & Plan (01/12/2020 1:25 PM BASKET GRADER): Assessment: Marlee Chavez is a 19 year [...] anxiety Assessment & Plan (01/11/2020 11:43 AM BASKET GRADER): Assessment: Marlee Chavez is a 19 year [...] cysts Assessment & Plan (01/10/2020 9:32 AM BASKET GRADER): Assessment: Marlee Chavez is a 19 year [...] appear contributive. Periactin was started yesterday and Mralee feels it helped significantly with her nausea. [...] cysts Assessment & Plan (01/09/2020 11:08 AM BASKET GRADER): Assessment: Marlee Chavez is a 19 year [...] cysts Assessment & Plan (01/08/2020 1:32 PM BASKET GRADER): Assessment: Marlee Chavez is a 19 year [...] cysts Assessment & Plan (01/07/2020 2:52 PM BASKET GRADER): Assessment: Marlee Chavez is a 19 year [...] cysts Assessment & Plan (01/06/2020 11:27 AM BASKET GRADER): Assessment: Marlee Chavez is a 19 year [...] cysts Assessment & Plan (01/05/2020 3:49 PM BASKET GRADER): Assessment: Marlee Chavez is a 19 year [...] cysts Assessment & Plan (01/04/2020 1:53 PM BASKET GRADER): Assessment: Marlee Chavez is a 19 year [...] cysts Assessment & Plan (01/03/2020 12:34 AM BASKET GRADER): Assessment: Marlee Chavez is a 19 year [...] 06/2023 Intractable nausea and vomiting 10/29/2021 03/18/2023 Assessment [...] 03/18/2023 Assessment & Plan (01/24/2022 5:04 PM BASKET GRADER): Assessment: Marlee Chavez is a 20 year [...] gabapentin Assessment & Plan (01/23/2022 6:56 PM BASKET GRADER): Assessment: Marlee Chavez is a 20 year [...] Full Code Access: PIV Metabolic acidosis 08/10/2021 2 Assessment & Plan (08/11/2021 3:44 PM CDT): [...] pain Assessment & Plan (01/08/2021 3:05 PM BASKET GRADER): Assessment: Patient is an 20 year old [...] I&Os Assessment & Plan (01/07/2021 4:52 PM BASKET GRADER): Assessment: Patient is an 20 year old [...] it Assessment & Plan (01/06/2021 6:00 PM BASKET GRADER): Assessment: Patient is an 20 year old [...] I&Os Assessment & Plan (01/05/2021 1:27 PM BASKET GRADER): Assessment: Patient is an 20 year old [...] I&Os Assessment & Plan (01/04/2021 9:17 PM BASKET GRADER): Assessment: Patient is an 20 year old [...] I&Os Assessment & Plan (01/03/2021 8:43 PM BASKET GRADER): Assessment: Patient is an 20 year old [...] wearing condom. She has upcoming appointment with compotype operator next month at which time, she will be getting a IUD. Plan: -urine test today -GC, chlamydia, trichomonas testing Assessment & Plan (05/24/2020 2:43 PM CDT): Will get urine Hcg and STI testing. Mom is aware and Marlee is ok with us communicating results to her mother. Purging 03/24/2020 05/24/2020 Assessment & Plan (04/05/2020 3:23 PM BASKET GRADER): Assessment: Has been drinking excessive amounts of water and putting her fingers in her mouth to induce vomiting. No recorded emesis since 03/25. Plan: Will limit access to water to 250ml at a time. May only bathe once per day after she has taken her meds, had breakfast and lunch. Assessment & Plan (04/04/2020 12:58 PM BASKET GRADER): Assessment: Has been drinking excessive amounts of water and putting her fingers in her mouth to induce vomiting. No recorded emesis since 03/25. Plan: Will limit access to water to 250ml at a time. May only bathe once per day after she has taken her meds, had breakfast and lunch. Assessment & Plan (04/01/2020 11:55 AM BASKET GRADER): Assessment: Has been drinking excessive amounts of water and putting her fingers in her mouth to induce vomiting. No recorded emesis since 03/25. Plan: Will limit access to water to 250ml at a time. May only bathe once per day after she has taken her meds, had breakfast and lunch. Assessment & Plan (03/24/2020 4:53 PM BASKET GRADER): Assessment: Has been drinking excessive amounts of water and putting her fingers in her mouth to induce vomiting. Plan: Will limit access to water to 250ml at a time. May only bathe once per day after she has taken her meds, had breakfast and lunch. Ovarian cyst 01/12/2020 03/19/2020 Assessment & Plan (03/15/2020 11:10 AM BASKET GRADER): Assessment: on ultrasound on R Plan: -Radiology recommended repeat imaging in 6 months for ovarian cysts Assessment & Plan (03/04/2020 1:41 PM BASKET GRADER): Assessment: on ultrasound on R Plan: -Radiology recommended repeat imaging in 6 months for ovarian cysts Assessment & Plan (03/04/2020 11:50 AM BASKET GRADER): Assessment: on ultrasound on R Plan: -Radiology recommended repeat imaging in 6 months for ovarian cysts Assessment & Plan (02/27/2020 9:58 AM BASKET GRADER): Assessment: on ultrasound on R Plan: -Radiology recommended repeat imaging in 6 months for ovarian cysts Assessment & Plan (01/28/2020 11:59 AM BASKET GRADER): Assessment: on ultrasound on R Plan: -Radiology recommended repeat imaging in 6 months for ovarian cysts Assessment & Plan (01/27/2020 3:52 PM BASKET GRADER): Assessment: on ultrasound on R Plan: -Radiology recommended repeat imaging in 6 months for ovarian cysts Assessment & Plan (01/26/2020 6:01 PM BASKET GRADER): Assessment: on ultrasound on R Plan: -Radiology recommended repeat imaging in 6 months for ovarian cysts Assessment & Plan (01/13/2020 2:33 PM BASKET GRADER): Assessment: on ultrasound on R Plan: -Radiology recommended repeat imaging in 6 months for ovarian cysts Assessment & Plan (01/12/2020 1:26 PM BASKET GRADER): Assessment: on ultrasound on R Plan: -Radiology recommended repeat imaging in 6 months for ovarian cysts Self-injurious behavior 03/25/201705/12 Major depressive disorder, severe 03/21/2017 05/24/2020 Intractable vomiting 020 Encounters * This document contains information received from the source organization and may not represent a complete record from that organization. Date Type Department Care Team Description 06/07/2024 2:27 AM CDT - 06/07/2024 7:04 AM CDT Emergency ER at [address] [address] Momo Yung MD Abdominal pain, epigastric; Nausea vomiting and diarrhea Discharge Disposition: Home or Self Care 06/07/2024 Travel 05/22/2024 Travel 05/12/2024 Travel 05/07/2024 10:00 AM CDT Office Visit [address] [id number] Ronel Thornton DO Anorexia (Primary Dx); Generalized anxiety disorder 04/29/2024 8:20 AM CDT Office Visit [address] [address] Ronel Thornton DO Anorexia (Primary Dx); Severe bulimia nervosa; Generalized anxiety disorder; Recurrent major depressive disorder, in full remission; PTSD (post-traumatic stress disorder); Borderline personality disorder 04/09/[address] [phone] Ronel Thornton DO Appointment from Last 3 Months Immunizations Immunization Administration Dates Next Due [employer] primary monoval ent 12+ yr 0.3mL Purple [...] Recorded Patient Health Questionnaire-2 Score 0 05/22/2024 [facility] - Occupational [...] in a assisted (including now)? No 04/24/2023 Comments No Sex and Gender Information Value Date Recorded Sex Assigned at Not on file Legal Sex Female 6:25 PM BASKET GRADER Gender Identity Not on file Sexual Orientation Not on file Last Filed Vital Signs Vital Sign Reading Time Taken Comments Blood Pressure 101/70 06/07/2024 7:00 AM CDT Pulse 77 06/07/2024 7:00 AM CDT Temperature 36.5 C (97.7 F) 06/07/2024 2:11 AM CDT Respiratory Rate 18 06/07/2024 7:00 AM CDT Oxygen Saturation 92% 06/07/2024 7:00 AM CDT Inhaled Oxygen Concentration 21% 06/27/2021 6 :30 PM CDT Weight 43.1 kg (95 lb) 05/22/2024 2:16 PM CDT Height 157.5 cm (5' 2 ) 05/22/2024 2:16 PM CDT Body Mass Index 17.38 05/22/2024 2:16 PM CDT Plan of Treatment Upcoming Encounters Date Type Department Care Team (Late st Contact Info) Description 06/08/2024 1:20 PM CDT Office Visit [address] [address] Ronel Thornton DO [address] [place] [id number] 01/20/2025 8:20 AM BASKET GRADER Office Visit [address] [address] [place] [address] [place] [phone] Health Maintenance Due Date Last Done Comments HPV VACCINE (1 - 3-dose series) 2017 MENINGOCOCCAL (Group B) VACCINE SHARED DECISION-MAKING (1 of 2 - Standard) 2018 COVID-19 VACCINE ( season) 2023 02/23/2021, 07/26/2020, 07/03/2020 DTAP/TDAP/TD VACCINES [...] Name Priority Date/Time Associated Diagnosis Comments HCG BETA BLOOD QUANTITATIVE STAT 06/07/2024 2:50 AM CDT LIPASE BLOOD STAT 06/07/2024 2:50 AM CDT MAGNESIUM BLOOD STAT 06/07/2024 2:50 AM CDT PHOSPHORUS BLOOD STAT 06/07/2024 2:50 AM CDT COMPREHENSIVE METABOLIC PANEL STAT 06/07/2024 2:50 AM CDT CBC W AUTO DIFFERENTIAL STAT 06/07/2024 2:49 AM CDT LIPID PROFILE Routine 04/29/2024 8:58 AM CDT MAGNESIUM BLOOD Routine 04/29/2024 8:58 AM CDT Anorexia CBC W AUTO DIFFERENTIAL Routine 04/29/2024 8:58 AM CDT Anorexia COMPREHENSIVE METABOLIC PANEL Routine 04/29/2024 8:58 AM CDT Anorexia OH ELECTROCARDIOGRAM, COMPLETE Routine 04/29/2024 Anorexia PAP CERVICAL [...] Relevant to Health Maintenance Results * (ABNORMAL) COMPREHENSIVE METABOLIC PANEL (06/07/2024 2:50 AM CDT) Only the most recent of2 resultswithin the time period is included. Glucose 60(L) 70 - 99 mg/dL 06/07/2024 3:08 AM CDT [facility] Sodium 138 136 - 145 mmol/L 06/07/2024 3:08 AM CDT [facility] Potassium 3.9 3.5 - 5.1 mmol/L 06/07/2024 3:08 AM CDT [facility] Chloride 100 98 - 107 mmol/L 06/07/2024 3:08 AM CDT [facility] CO2 18(L) 22 - 29 mmol/L 06/07/2024 3:08 AM CDT [facility] Calcium 9.8 8.4 - 10.4 mg/dL 06/07/2024 3:08 AM CDT [facility] Anion Gap 20(H) 6 - 16 mmol/L 06/07/2024 3:08 AM CDT [facility] BUN 27(H) 5.3 - 18.7 mg/dL 06/07/2024 3:08 AM CDT [facility] Creatinine 1.07 0.57 - 1.11 mg/dL 06/07/2024 3:08 AM CDT [facility] Alkaline Phosphatase 66 40 - 150 U/L 06/07/2024 3:08 AM CDT [facility] ALT 18 6 - 57 U/L 06/07/2024 3:08 AM CDT [facility] AST 36 10 - 48 U/L 06/07/2024 3:08 AM CDT [facility] Protein Total 9.0(H) 6.4 - 8.3 gm/dL 06/07/2024 3:08 AM CDT [facility] Albumin 5.0 3.4 - 5.0 gm/dL 06/07/2024 3:08 AM CDT [facility] Bilirubin Total 0.7 0.2 - 1.2 mg/dL 06/07/2024 3:08 AM CDT [facility] eGFR by CKD-EPI 76(L) >=90 mL/min/1.7 3 m2 06/07/2024 3:08 AM CDT [facility] Blood BLOOD SPECIMEN / Unknown Venipuncture / Unknown 06/07/2024 2:50 AM CDT 06/07/2024 2:50 AM CDT Momo Yung MD LAB - CHEMISTRY ORDERABLES F inal Result Performing Organization Address [facility] Co de Phone Number [facility] [address] [place] [phone] * HCG BETA BLOOD QUANTITATIVE (06/07/2024 2:50 AM CDT) [facility] hCG Quantitative <2.42 mIU/mL 06/08/19 3:11 AM CDT [facility] Blood BLOOD SPECIMEN / Unknown Venipuncture / Unknown 06/07/2024 2:50 AM CDT 06/07/2024 2:50 AM CDT Narrative [facility] - 06/07/2024 3:11 AM CDT hCG [...] ORDERABLES F inal Result Performing Organization Address [facility]/ZIP Co de Phone Number [facility] [address] [place] [phone] * PHOSPHORUS BLOOD (06/07/2024 2:50 AM CDT) Phosphorus 4.5 2.5 - 4.5 mg/dL 06/07/2024 3:08 AM CDT [facility] Blood BLOOD SPECIMEN / Unknown Venipuncture / Unknown 06/07/2024 2:50 AM CDT 06/07/2024 2:50 AM CDT Momo Yung MD LAB - CHEMISTRY ORDERABLES F inal Result [facility] [address] [place] [phone] * MAGNESIUM BLOOD (06/07/2024 2:50 AM CDT) Only the most recent of2 resultswithin the time period is included. Magnesium 2.2 1.6 - 2.6 mg/dL 06/07/2024 3:08 AM CDT [facility] Blood BLOOD SPECIMEN / Unknown Venipuncture / Unknown 06/07/2024 2:50 AM CDT 06/07/2024 2:50 AM CDT Momo Yung MD LAB - CHEMISTRY ORDERABLES F inal Result Performing Organization Address [facility] Co de Phone Number [facility] [address] [place] [phone] * (ABNORMAL) LIPASE BLOOD (06/07/2024 2:50 AM CDT) Lipase 84(H) <60 U/L 06/07/2024 3:08 AM CDT [facility] Blood BLOOD SPECIMEN / Unknown Venipuncture / Unknown 06/07/2024 2:50 AM CDT 06/07/2024 2:50 AM CDT Momo Yung MD LAB - CHEMISTRY ORDERABLES F inal Result Performing Organization Address City/[facility]/ZIP Co de Phone Number [facility] [address] [place] [phone] * CBC W AUTO DIFFERENTIAL (06/07/2024 2:49 AM CDT) Only the most recent of2 resultswithin the time period is included. WBC 9.6 4.0 - 10.7 x10E9/L 06/07/2024 2:51 AM CDT [facility] RBC Count 4.88 3.90 - 5.20 x10E12/L 06/07/2024 2:51 AM CDT [facility] Hemoglobin 14.8 11.9 - 15.8 g/dL 06/07/2024 2:51 AM CDT [facility] Hematocrit 44.1 34.8 - 46.1 % 06/07/2024 2:51 AM CDT [facility] MCV 90.4 80.0 - 98.0 fL 06/07/2024 2:51 AM CDT [facility] MCH 30.3 26.7 - 33.6 pg 06/07/2024 2:51 AM CDT [facility] MCHC 33.6 31.7 - 36.3 g/dL 06/07/2024 2:51 AM CDT [facility] RDW-CV 12.6 11.3 - 14.8 % 06/07/2024 2:51 AM CDT [facility] Platelet Count 353 150 - 420 x10E9/L 06/07/2024 2:51 AM CDT [facility] MPV 9.6 7.8 - 11.4 fL 06/07/2024 2:51 AM CDT [facility] Neutrophil % 70.8 41.0 - 74.0 % 06/07/2024 2:51 AM CDT [facility] Lymphocyte % 18.4 17.0 - 47.0 % 06/07/2024 2:51 AM CDT [facility] Monocyte % 10.3 3.0 - 11.0 % 06/07/2024 2:51 AM CDT [facility] Eosinophil % 0.0 0.0 - 7.0 % 06/07/2024 2:51 AM CDT [facility] Basophil % 0.2 0.0 - 1.6 % 06/07/2024 2:51 AM CDT [facility] Immature Granulocytes % 0.3 0.0 - 1.0 % 06/07/2024 2:51 AM CDT [facility] Neutrophil Absolute 6.79 1.60 - 7.50 x10E9/L 06/07/2024 2:51 AM CDT [facility] Lymphocyte Absolute 1.77 1.00 - 4.40 x10E9/L 06/07/2024 2:51 AM CDT [facility] Monocyte Absolute 0.99 0.15 - 1.00 x10E9/L 06/07/2024 2:51 AM CDT [facility] Eosinophil Absolute 0.00 0.00 - 0.60 x10E9/L 06/07/2024 2:51 AM CDT [facility] Basophil Absolute 0.02 0.00 - 0.13 x10E9/L 06/07/2024 2:51 AM CDT [facility] Blood BLOOD SPECIMEN / Unknown Venipuncture / Unknown 06/07/2024 2:49 AM CDT 06/07/2024 2:49 AM CDT us Momo Yung MD LAB - HEMATOLOGY ORDERABLES Final Result Performing Organization Address [facility] [[email or web address]] de Phone Number [facility] [address] [place] [address] * LIPID PROFILE (04/29/2024 8:58 AM CDT) [facility] Signature Cholesterol 167 <200 mg/dL [facility] ACCOUNT BILL Triglycerides 63 <150 mg/dL [facility] ACCOUNT BILL HDL Cholesterol 43 >40 mg/dL [facility] ACCOUNT BILL VLDL Calculated 13 <=30 mg/dL [facility] ACCOUNT BILL LDL Calculated 111 <130 mg/dL [facility] ACCOUNT BILL 04/29/2024 8:58 AM CDT 04/29/2024 Narrative [facility] ACCOUNT BILL - 04/29/2024 6:09 PM CDT Performed at: [address] [place] [address] [place], [place] [id number] Watch And Clock Maker And Repairer: [facility], Phone: [phone] us Ronel Thornton DO LAB - CHEMISTRY ORDERABLES Fi nal Result Performing Organization Address City/[facility]/ZIP Co de Phone Number [facility] ACCOUNT BILL [address] [place] [address] * [place] ELECTROCARDIOGRAM, COMPLETE (04/29/2024) Ronelgénesis Thornton [place] - PROFESSIONAL SERVICES Ed ited Result - Final * (ABNORMAL) PAP CERVICAL CANCER SCREEN CT/NG/TV APT (11/29/2023 11:06 AM CDT) Age Gdln ACOG Testing 21-29 [facility] ACCOUNT BILL Comment: Performed at: 02 - [facility] [address] [id number] Watch And Clock Maker And Repairer: Meredith Gil MD, Phone: [phone] Performed at: - [facility] [address] [id number] Watch And Clock Maker And Repairer: Meredith Gil MD, Phone: [phone] Diagnosis Comment(A) [facility] ACCOUNT BILL Comment: EPITHELIAL [...] 12/05/2023 5:09 PM CDT Performed at: - [facility] [id number] Watch And Clock Maker And Repairer: Meredith Gil MD, Phone: [phone] Specimen Comment: [id number] Specimen Comment: Source.............Cervix Specimen Comment: No. of containers..01 ThinPrep Vial Nai Jurado MD LAB - PATHOLOGY/CYTOLOGY ORDE RABLES Final Result Performing Organization Address [facility] Co de Phone Number [facility] ACCOUNT BILL [address] [place] [address] * HIV-1 HIV-2 ANTIBODY + HIV P24 AG PANEL (11/29/2023 10:55 AM CDT) [facility] HIV Screen 4th Generation w Reflex Non Reactive Non Reactive [facility] ACCOUNT BILL Comment: HIV-1/HIV-2 antibodies and HIV-1 p24 antigen were NOT detected. There is no laboratory evidence of HIV infection. HIV Negative Blood BLOOD SPECIMEN / Unknown 11/29/2023 10:55 AM CDT 11/29/2023 Narrative [facility] ACCOUNT BILL - 11/30/2023 10:10 AM CDT Performed at: [address] [id number] Watch And Clock Maker And Repairer: Karlos Huffman PhD, Phone: [phone] Nai Jurado MD LAB - CHEMISTRY ORDERABLES Fi nal Result Performing Organization Address City/[facility] Co de Phone Number [facility] ACCOUNT BILL [address] [place] [address] * HEPATITIS C AB W/RFLX TO HCV RNA QN PCR (12/07/2021) [facility] Hepatitis C Antibody NON-REACTI VE NON-REACT KASIA QUEST Signal to Cut-Off 0.08 <1.00 QUEST Comment: HCV antibody was non-reactive. There is no laboratory evidence of HCV infection. In most cases, no further action is required. However, if recent HCV exposure is suspected, a test for HCV RNA (test code 19929) is suggested. For additional information please refer to http://education.Antengo/faq/MOW73j0 (This link is being provided for informational/ educational purposes only.) Test Performed at: [facility] [address] [place] [address] PURVI PABLO DO,MPH Blood BLOOD SPECIMEN / Unknown 12/07/2021 12/07/2021 10:47 AM CDT Karrie Mack MD LAB - CHEMISTRY ORDERABLES Final Result [facility] [address] [place] [address] from Last 3 Months or Most Recently Relevant to Health Maintenance Insurance [facility] [address] [facility] Advance Directives * Full [...] 4:54 PM 06/22/2022 2:44 PM Care Teams Fender Finisher Relationship Specialty Start Date End Date Ronel Thornton DO [address] [facility] [place] [address] PCP - General Family Medicine 03/18/23 Ronel Thornton DO [address] [place] [address] PCP - Attributed-[facility] STL 04/12/23
--- OUTSIDE RECORDS SUMMARY | 2024-06-07 08:11 | XMS_ITS | Encounter Summary ---
Author Organization [facility] Address [address] [place] [address] Care Team Providers Care Airplane Woodworker Name Role Phone Mellissa Jiménez MD Primary Care Provider [phone] Ronel Thornton DO Primary Care Provider [phone] Daphnie Gillespie MD Unavailable Juliana Peralta DOUGH MIXER OPERATOR Unavailable [phone] Juliana Peralta Unavailable [phone] Ronel Thornton DO Unavailable [phone] Kenyatta Taylor RN Unavailable [phone] Tiago Lew Unavailable [phone] Encounter Details Date Type Department Care Team (Late st Contact Info) Description 07/28/2020 Telephone [facility] Pediatrics - Pulmonology [address] [place] [address] Bessie Erwin Social History Tobacco Use Types Packs/Day Years Used Date Smoking Tobacco: Never Smokeless Tobacco: Never Alcohol Use Standard Drinks/Week Comments No 0 (1 standard drink = 0.6 oz pur e alcohol) Comments No Sex and Gender Information Value Date Recorded Sex Assigned at Not on file Legal Sex Female 6:25 PM PLUMBING TECHNICIAN Gender Identity Not on file Sexual Orientation [...] PM CDT Mom called regarding not eating [phone] Marla Gillespie documented in this encounter Plan of Treatment Upcoming Encounters Date Type Department Care Team (Late st Contact Info) Description 06/08/2024 1:20 PM CDT Office Visit [address] [address] Ronel Thornton DO [address] [place] [address] 01/20/2025 8:20 AM PLUMBING TECHNICIAN Office Visit [address] [address] Ronel Thornton DO [address] [place] [address] documented as of this encounter Visit Diagnoses Not on filedocumented in this encounter Additional Health Concerns Infection Onset Date Last Indicated Resolved Time COVID-19 Under Investigation 08/10/2021 08/10/2021 08/10/2021 2:59 AM CDT documented as of this encounter Care Teams Airplane Woodworker Relationship Specialty Start Date End Date Mellissa Jiménez MD [address] [place] [address] [place] [address] PCP - General Family Medicine 04/25/20 03/17/23 Ronel Thornton DO [address] [place] [address] PCP - General Family Medicine 03/18/23 Daphnie Gillespie MD [address] [place] [address] PCP - Attributed-[facility]HP STL 02/11/23 04/11/23 Ronel Thornton DO [address] [place] [address] PCP - Attributed-[facility] STL 04/12/23 Juliana Peralta MSW Outpatient Unishear Operator Care Management 04/24/2304/11 Juliana Peralta MSW Outpatient Unishear Operator Care Management 04/30/2304/12 Kenyatta Taylor RN [address] [address] Lab ScientistChemical Worker 09/02/23 10/04/23 Tiago Lew Care Coordination Specialist Care Management 09/26/23 11/10/23 documented as of this encounter
--- NOTE | 2024-06-07 08:22 | ECG_ITS ---
Test Date: 2024-06-07 08:37:30 Measurements Intervals [place] Rate: 82 P: 68 LA: 111 QRS: 72 QRSD: 77 T: 59 QT: 368 QTc: 431 Interpretive Statements SINUS RHYTHM WITH MARKED SINUS ARRHYTHMIA WITH SHORT LA INTERVAL MINIMAL Q WAVES- INF/LAT LEADS BORDERLINE ECG No previous ECG available for comparison Electronically Signed On 06-07-2024 12:48:29 CDT by Bertram Yousif D.O.
[2024-06-07 08:23] VITALS: BP 129/79; PULSE 99; RESP 20; TEMP 36.6; O2SAT 100
--- OUTSIDE RECORDS SUMMARY | 2024-06-07 08:31 | XMS_ITS | Encounter Summary ---
Author Organization [facility] Address [address] [place] [address] Care Team Providers Care Chemical Librarian Name Role Phone Mellissa Jiménez MD Primary Care Provider [phone] Ronel Thornton DO Primary Care Provider [phone] Daphnie Gillespie MD Unavailable Juliana Peralta ENGRAVER HAND HARD METALS Unavailable [phone] Juliana Peralta Unavailable [phone] Ronel Thornton DO Unavailable [phone] Kenyatta Taylor RN Unavailable [phone] Tiago Lew Unavailable [phone] Encounter Details Date Type Department Care Team (Late st Contact Info) Description 07/28/[address] [facility] Pediatrics - Pulmonology [address] [place] [address] Bessie Erwin Social History Tobacco Use Types Packs/Day Years Used Date Smoking Tobacco: Never Smokeless Tobacco: Never Alcohol Use Standard Drinks/Week Comments No 0 (1 standard drink = 0.6 oz pur e alcohol) Comments No Sex and Gender Information Value Date Recorded Sex Assigned at Not on file Legal Sex Female 6:25 PM BRUSH WORKER Gender Identity Not on file Sexual [...] PM CDT Mom called regarding not eating [phone] Marla Gillespie documented in this encounter Plan of Treatment Upcoming Encounters Date Type Department Care Team (Late st Contact Info) Description 06/08/2024 1:20 PM CDT Office Visit [address] [address] Ronel Thornton DO [address] [place] [address] 01/20/2025 8:20 AM BRUSH WORKER Office Visit [address] [address] Ronel Thornton DO [address] [place] [address] documented as of this encounter Visit Diagnoses Not on filedocumented in this encounter Additional Health Concerns Infection Onset Date Last Indicated Resolved Time COVID-19 Under Investigation 08/10/2021 08/10/2021 08/10/2021 2:59 AM CDT documented as of this encounter Care Teams Chemical Librarian Relationship Specialty Start Date End Date Mellissa Jiménez MD [address] [place] [address] [place] [address] PCP - General Family Medicine 04/25/20 03/17/23 Ronel Thornton DO [address] [place] [address] PCP - General Family Medicine 03/18/23 Daphnie Gillespie MD [address] [place] [address] PCP - Attributed-[facility]HP STL 02/11/23 04/11/23 Ronel Thornton DO [address] [place] [address] PCP - Attributed-[facility] STL 04/12/23 Juliana Peralta MSW Outpatient Head And Neck Surgeon Care Management 04/24/2304/11 Juliana Peralta MSW Outpatient Head And Neck Surgeon Care Management 04/30/2304/12 Kenyatta Taylor RN [address] [address] Wedding PlannerCage Tender 09/02/23 10/04/23 Tiago Lew Care Coordination Specialist Care Management 09/26/23 11/10/23 documented as of this encounter
--- OUTSIDE RECORDS SUMMARY | 2024-06-07 08:31 | XMS_ITS | Encounter Summary ---
Author Organization [facility] Address [address] [facility] [place] [address] Care Team Providers Care Software Security Consultant Name Role Phone Ronel Thornton DO Primary Care Provider [phone] Ronel Thornton DO Unavailable [phone] Encounter Details Date Type Department Care Team [...] Recorded Patient Health Questionnaire-2 Score 0 05/22/2024 [facility] [place] of Occupat ional Health - Occupational Stress [...] in a detention (including now)? No 04/24/2023 Comments No Sex and Gender Information Value Date Recorded Sex Assigned at Not on file Legal Sex Female 6:25 PM UMBRELLA FINISHER Gender Identity Not on file Sexual Orientation [...] Description 06/08/2024 1:20 PM CDT Office Visit [address] [address] Ronel Thornton DO [address] [place] [address] 01/20/2025 8:20 AM UMBRELLA FINISHER Office Visit [address] [address] Ronel Thornton DO [address] [place] [address] documented as of this encounter Visit Diagnoses Not on filedocumented in this encounter Care Teams Software Security Consultant Relationship Specialty [place] [address] [place] [address] PCP - General Family Medicine 03/18/23 Ronel Thornton DO [facility] [place] [address] PCP - Attributed-[facility] STL 04/12/23 documented as of this encounter
--- OUTSIDE RECORDS SUMMARY | 2024-06-07 08:31 | XMS_ITS | Encounter Summary ---
Author Organization [facility] Address [address] [place] [address] Care Team Providers Care Sole Molder Name Role Phone Mellissa Jiménez MD Primary Care Provider [phone] Ronel Thornton DO Primary Care Provider [phone] Daphnie Gillespie MD Unavailable Juliana Peralta CITRUS FRUIT PACKER Unavailable [phone] Juliana Peralta CITRUS FRUIT PACKER Unavailable [phone] Ronel Thornton DO Unavailable Kenyatta Taylor RN Unavailable [phone] Tiago Lew Unavailable [phone] Reason for Visit * Reason Onset Date Comments Appointment 10/05/2020 Contraceptive management 10/05/2020 Encounter Details Date Type Department Care Team (Late st Contact Info) Description 10/05/2020 Telephone [facility] [address] [place] [address] Karrie Mack MD [address] [place] [address] Appointment; Contraceptive management Social History Tobacco Use Types Packs/Day Years Used Date Smoking Tobacco: Never Smokeless Tobacco: Never Alcohol Use Standard Drinks/Week Comments No 0 (1 standard drink = 0.6 oz pur e alcohol) Comments No Sex and Gender Information Value Date Recorded Sex Assigned at Not on file Legal Sex Female 6:25 PM SILVERWARE ASSEMBLER Gender Identity Not on file Sexual Orientation [...] the office yet to get scheduled. CB# [phone] documented in this encounter Plan of Treatment Upcoming Encounters Date Type Department Care Team (Late st Contact Info) Description 06/08/2024 1:20 PM CDT Office Visit [address] [address] Ronel Thornton DO [address] [place] [address] 01/20/2025 8:20 AM SILVERWARE ASSEMBLER Office Visit [address] [address] Ronel Thornton DO [address] [place] [address] documented as of this encounter Visit Diagnoses Not on filedocumented in this encounter Additional Health Concerns Infection Onset Date Last Indicated Resolved Time COVID-19 Under Investigation 08/10/2021 08/10/2021 08/10/2021 2:59 AM CDT documented as of this encounter Care Teams Sole Molder Relationship Specialty Start Date End Date Mellissa Jiménez MD [address] [place] [address] [place] [address] PCP - General Family Medicine 04/25/20 03/17/23 Ronel Thornton DO [address] [place] [address] PCP - General Family Medicine 03/18/23 Daphnie Gillespie MD [address] [place] [address] PCP - Attributed-[facility] EHP STL 02/11/23 04/11/23 Ronel Thornton DO [address] [place] [address] PCP - Attributed-[facility] EHP STL 04/12/23 Juliana Peralta MSW Outpatient Glass Technologist Care Management 04/24/2304/11 Juliana Peralta MSW Outpatient Glass Technologist Care Management 04/30/2304/12 Kenyatta Taylor RN [address] [address] Optical Goods Drill OperatorChanneler Runner 09/02/23 10/04/23 Tiago Lew Care Coordination Specialist Care Management 09/26/23 11/10/23 documented as of this encounter
--- OUTSIDE RECORDS SUMMARY | 2024-06-07 08:31 | XMS_ITS | Clinical Summary ---
Author Organization [facility] Address [address] [place] [address] Phone Care Team Providers Care Elder Assistant Name Role Phone Mellissa Jiménez MD [...] on file Legal Sex Female 10:44 PM SHOP LEAD Gender Identity Not on file Sexual Orientation [...] 52.2 kg (115 lb) 04/20/2023 2:30 AM SHOP LEAD Height 152.4 cm (5') 04/20/2023 2:30 AM SHOP LEAD Body Mass Index 22.46 04/20/2023 2:30 AM SHOP LEAD Plan of Treatment Health Maintenance Due Date [...] 02/22/2004, 06/09/2003, 02/22/2003, Additional history exists [place] [address] [place] [address] Advance Directives For more information, please contact: [phone] * Full Code (Latest Code Status on File) Date Activated Date Inactivated Comments 04/20/2023 2:32 AM 04/21/2023 4:11 PM Care Teams Elder Assistant Relationship Specialty Start Date End Date Mellissa Jiménez MD [address] [place] [address] [place] [address] PCP - General Family Practice 04/20/23
--- OUTSIDE RECORDS SUMMARY | 2024-06-07 08:31 | XMS_ITS | Clinical Summary ---
Author Organization [facility] Address [address] [place] [address] Care Team Providers Care Art Historian Name Role Phone Ronel Thornton DO Primary Care Provider [phone] Ronel Thornton DO Unavailable [phone] Source Comments [facility],non-owned Affiliates and Associated Physician Practices is amultiple site organization consisting of ambulatory clinics and hospital sitesin [place], [place], [place] and [place]. This disclosure is being madepursuant to the Care Everywhere program and may not contain all information available regarding this patient. Last updated 17.[facility] Allergies No known active allergies Medications * [...] 01/18/2020 Assessment & Plan (01/08/2021 3:06 PM WIDE AREA NETWORK ENGINEER): Assessment: Major depressive disorder, generalized anxiety disorder [...] recs Assessment & Plan (01/07/2021 4:50 PM WIDE AREA NETWORK ENGINEER): Assessment: Major depressive disorder, generalized anxiety disorder [...] recs Assessment & Plan (01/06/2021 5:55 PM WIDE AREA NETWORK ENGINEER): Assessment: Major depressive disorder, generalized anxiety disorder [...] slowly. Assessment & Plan (04/07/2020 6:45 PM WIDE AREA NETWORK ENGINEER): Assessment: Hx of major depressive disorder and generalized anxiety disorder. Pt has been seen by psychiatry and psychology, now improved since starting/optimizing zyprexa QHS, clonazepam TID, and prozac QD. Plan: - Prozac 30 mg QD (dose of 30 mg started on 03/09/20, Prozac initially began 02/07) - Zyprexa 5 mg QHS - Klonopin 0.5mg TID Assessment & Plan (04/06/2020 3:54 PM WIDE AREA NETWORK ENGINEER): Assessment: Hx of major depressive disorder and generalized anxiety disorder. Pt seen by psychiatry on admission and was started elavil, but continued to have anxiety. Elavil was discontinued due to persistent tachycardia and hypotension. Based [facility], she was started on zyprexa [...] TID Assessment & Plan (04/05/2020 10:49 AM WIDE AREA NETWORK ENGINEER): Assessment: Hx of major depressive disorder and [...] TID Assessment & Plan (04/04/2020 10:23 AM WIDE AREA NETWORK ENGINEER): Assessment: Hx of major depressive disorder and [...] TID Assessment & Plan (04/03/2020 6:30 PM WIDE AREA NETWORK ENGINEER): Assessment: Hx of major depressive disorder and [...] TID Assessment & Plan (04/01/2020 11:15 AM WIDE AREA NETWORK ENGINEER): Assessment: Hx of major depressive disorder and generalized anxiety disorder. Pt seen by psychiatry on admission and was started elavil, but continued to have anxiety. Elavil was discontinued due to persistent tachycardia and hypotension. Based [facility], she was started on [...] dose) Assessment & Plan (03/31/2020 10:07 AM WIDE AREA NETWORK ENGINEER): Assessment: Hx of major depressive disorder and [...] dose) Assessment & Plan (03/30/2020 2:24 PM WIDE AREA NETWORK ENGINEER): Assessment: Hx of major depressive disorder and [...] dose) Assessment & Plan (03/29/2020 6:50 AM WIDE AREA NETWORK ENGINEER): Assessment: Hx of major depressive disorder and [...] dose) Assessment & Plan (03/27/2020 10:30 AM WIDE AREA NETWORK ENGINEER): Assessment: Hx of major depressive disorder and [...] dose) Assessment & Plan (03/26/2020 11:15 AM WIDE AREA NETWORK ENGINEER): Assessment: Hx of major depressive disorder and [...] dose) Assessment & Plan (03/25/2020 8:58 AM WIDE AREA NETWORK ENGINEER): Assessment: Hx of major depressive disorder and [...] dose) Assessment & Plan (03/24/2020 6:44 AM WIDE AREA NETWORK ENGINEER): Assessment: Hx of major depressive disorder and [...] dose) Assessment & Plan (03/23/2020 12:19 PM WIDE AREA NETWORK ENGINEER): Assessment: Hx of major depressive disorder and [...] dose) Assessment & Plan (03/22/2020 10:47 AM WIDE AREA NETWORK ENGINEER): Assessment: Hx of major depressive disorder and [...] recommendations) Assessment & Plan (03/21/2020 3:11 PM WIDE AREA NETWORK ENGINEER): Assessment: Hx of major depressive disorder and [...] mg. Assessment & Plan (03/20/2020 10:31 AM WIDE AREA NETWORK ENGINEER): Assessment: Hx of major depressive disorder and [...] 03/21. Assessment & Plan (03/19/2020 10:38 AM WIDE AREA NETWORK ENGINEER): Assessment: Hx of major depressive disorder and [...] withdrawal Assessment & Plan (03/18/2020 12:58 PM WIDE AREA NETWORK ENGINEER): Assessment: Hx of major depressive disorder and [...] anxiety Assessment & Plan (03/17/2020 10:33 AM WIDE AREA NETWORK ENGINEER): Assessment: Hx of major depressive disorder and [...] appreciated Assessment & Plan (03/16/2020 2:24 PM WIDE AREA NETWORK ENGINEER): Assessment: Hx of major depressive disorder and [...] recommendations Assessment & Plan (03/15/2020 11:11 AM WIDE AREA NETWORK ENGINEER): Assessment: Hx of major depressive disorder and [...] anxiety Assessment & Plan (03/14/2020 6:28 AM WIDE AREA NETWORK ENGINEER): Assessment: Hx of major depressive disorder and [...] anxiety Assessment & Plan (03/13/2020 6:28 AM WIDE AREA NETWORK ENGINEER): Assessment: Hx of major depressive disorder and [...] anxiety Assessment & Plan (03/12/2020 11:35 AM WIDE AREA NETWORK ENGINEER): Assessment: Hx of major depressive disorder and [...] anxiety Assessment & Plan (03/11/2020 12:43 PM WIDE AREA NETWORK ENGINEER): Assessment: Hx of major depressive disorder and [...] anxiety Assessment & Plan (03/10/2020 6:11 AM WIDE AREA NETWORK ENGINEER): Assessment: Hx of major depressive disorder and [...] anxiety Assessment & Plan (03/09/2020 6:24 AM WIDE AREA NETWORK ENGINEER): Assessment: Hx of major depressive disorder and [...] anxiety Assessment & Plan (03/08/2020 10:51 AM WIDE AREA NETWORK ENGINEER): Assessment: Hx of major depressive disorder and [...] anxiety Assessment & Plan (03/07/2020 9:15 AM WIDE AREA NETWORK ENGINEER): Assessment: Hx of major depressive disorder and [...] daily schedule with assistance of early childhood teacher-Alma Assessment & Plan (03/06/2020 10:09 AM WIDE AREA NETWORK ENGINEER): Assessment: Hx of major depressive disorder and [...] anxiety Assessment & Plan (03/05/2020 9:56 AM WIDE AREA NETWORK ENGINEER): Assessment: Hx of major depressive disorder and [...] anxiety Assessment & Plan (03/04/2020 12:58 PM WIDE AREA NETWORK ENGINEER): Assessment: Hx of major depressive disorder and [...] anxiety Assessment & Plan (03/03/2020 3:16 PM WIDE AREA NETWORK ENGINEER): Assessment: Hx of major depressive disorder and [...] anxiety Assessment & Plan (03/01/2020 12:04 PM WIDE AREA NETWORK ENGINEER): Assessment: Hx of major depressive disorder and [...] anxiety Assessment & Plan (02/29/2020 12:53 PM WIDE AREA NETWORK ENGINEER): Assessment: Hx of major depressive disorder and [...] anxiety Assessment & Plan (02/28/2020 9:22 AM WIDE AREA NETWORK ENGINEER): Assessment: Hx of major depressive disorder and [...] anxiety Assessment & Plan (02/27/2020 10:27 AM WIDE AREA NETWORK ENGINEER): Assessment: Hx of major depressive disorder and [...] negative Assessment & Plan (02/26/2020 11:12 AM WIDE AREA NETWORK ENGINEER): Assessment: Hx of major depressive disorder and [...] pending Assessment & Plan (02/25/2020 9:33 AM WIDE AREA NETWORK ENGINEER): Assessment: Hx of major depressive disorder and [...] pending Assessment & Plan (02/24/2020 6:51 AM WIDE AREA NETWORK ENGINEER): Assessment: Hx of major depressive disorder and [...] pending Assessment & Plan (02/23/2020 10:19 AM WIDE AREA NETWORK ENGINEER): Assessment: Hx of major depressive disorder and [...] pending Assessment & Plan (02/22/2020 11:07 AM WIDE AREA NETWORK ENGINEER): Assessment: Hx of major depressive disorder and [...] QHS Assessment & Plan (02/21/2020 10:54 AM WIDE AREA NETWORK ENGINEER): Assessment: History of major depressive disorder and [...] Based on recommendations from psychiatry and [facility], Malree was started on zyprexa QHS, clonazepam TID, [...] tablet Assessment & Plan (02/20/2020 11:33 AM WIDE AREA NETWORK ENGINEER): Assessment: History of major depressive disorder and [...] tablet Assessment & Plan (02/19/2020 3:05 PM WIDE AREA NETWORK ENGINEER): Assessment: History of major depressive disorder and [...] tablet Assessment & Plan (02/18/2020 10:13 AM WIDE AREA NETWORK ENGINEER): Assessment: History of major depressive disorder and [...] tablet Assessment & Plan (02/17/2020 12:26 PM WIDE AREA NETWORK ENGINEER): Assessment: History of major depressive disorder and [...] tablet Assessment & Plan (02/16/2020 1:14 PM WIDE AREA NETWORK ENGINEER): Assessment: History of major depressive disorder and [...] tablet Assessment & Plan (02/15/2020 12:31 PM WIDE AREA NETWORK ENGINEER): Assessment: History of major depressive disorder and [...] tablet Assessment & Plan (02/14/2020 2:24 PM WIDE AREA NETWORK ENGINEER): Assessment: History of major depressive disorder and [...] tablet Assessment & Plan (02/13/2020 12:00 PM WIDE AREA NETWORK ENGINEER): Assessment: History of major depressive disorder and [...] tablet Assessment & Plan (02/12/2020 11:20 AM WIDE AREA NETWORK ENGINEER): Assessment: History of major depressive disorder and [...] tablet Assessment & Plan (02/11/2020 11:54 AM WIDE AREA NETWORK ENGINEER): Assessment: History of major depressive disorder and [...] tablet Assessment & Plan (02/10/2020 12:09 PM WIDE AREA NETWORK ENGINEER): Assessment: History of major depressive disorder and [...] tablet Assessment & Plan (02/09/2020 11:50 AM WIDE AREA NETWORK ENGINEER): Assessment: History of major depressive disorder and [...] [place] Assessment & Plan (02/08/2020 12:54 PM WIDE AREA NETWORK ENGINEER): Assessment: History of major depressive disorder and [...] [place] Assessment & Plan (02/07/2020 11:47 AM WIDE AREA NETWORK ENGINEER): Assessment: History of major depressive disorder and [...] [place] Assessment & Plan (02/06/2020 8:12 AM WIDE AREA NETWORK ENGINEER): Assessment: History of major depressive disorder and [...] [place] Assessment & Plan (02/05/2020 9:12 AM WIDE AREA NETWORK ENGINEER): Assessment: History of major depressive disorder and [...] [place] Assessment & Plan (02/04/2020 12:43 PM WIDE AREA NETWORK ENGINEER): Assessment: History of major depressive disorder and [...] [place] Assessment & Plan (02/03/2020 2:28 PM WIDE AREA NETWORK ENGINEER): Assessment: History of major depressive disorder and [...] [place] Assessment & Plan (02/02/2020 4:02 PM WIDE AREA NETWORK ENGINEER): Assessment: History of major depressive disorder and [...] [place] Assessment & Plan (02/01/2020 12:12 PM WIDE AREA NETWORK ENGINEER): Assessment: History of major depressive disorder and [...] [place] Assessment & Plan (01/31/2020 1:04 PM WIDE AREA NETWORK ENGINEER): Assessment: History of major depressive disorder and [...] [place] Assessment & Plan (01/30/2020 10:30 AM WIDE AREA NETWORK ENGINEER): Assessment: History of major depressive disorder and [...] [place] Assessment & Plan (01/29/2020 9:40 PM WIDE AREA NETWORK ENGINEER): Assessment: History of major depressive disorder and [...] [place] Assessment & Plan (01/28/2020 11:59 AM WIDE AREA NETWORK ENGINEER): Assessment: History of major depressive disorder and [...] lunch Assessment & Plan (01/27/2020 3:57 PM WIDE AREA NETWORK ENGINEER): Assessment: History of major depressive disorder and [...] lunch Assessment & Plan (01/26/2020 6:01 PM WIDE AREA NETWORK ENGINEER): Assessment: History of major depressive disorder and [...] [place] Assessment & Plan (01/25/2020 2:56 PM WIDE AREA NETWORK ENGINEER): Assessment: History of major depressive disorder and [...] PO. Assessment & Plan (01/24/2020 8:11 AM WIDE AREA NETWORK ENGINEER): Assessment: History of major depressive disorder and [...] (02/22/20) Assessment & Plan (01/23/2020 7:09 AM WIDE AREA NETWORK ENGINEER): Assessment: History of major depressive disorder and [...] (02/22/20) Assessment & Plan (01/22/2020 7:52 AM WIDE AREA NETWORK ENGINEER): Assessment: History of major depressive disorder and [...] (02/22/20) Assessment & Plan (01/21/2020 7:40 AM WIDE AREA NETWORK ENGINEER): Assessment: History of major depressive disorder and [...] (02/22/20) Assessment & Plan (01/20/2020 7:36 AM WIDE AREA NETWORK ENGINEER): Assessment: History of major depressive disorder and [...] (02/22/20) Assessment & Plan (01/19/2020 7:22 AM WIDE AREA NETWORK ENGINEER): Assessment: History of major depressive disorder and [...] (02/22/20) Assessment & Plan (01/18/2020 4:35 PM WIDE AREA NETWORK ENGINEER): Assessment: History of major depressive disorder and [...] range. Assessment & Plan (04/08/2020 1:31 PM WIDE AREA NETWORK ENGINEER): Assessment: 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, SMA [...] PT Assessment & Plan (04/07/2020 2:52 PM WIDE AREA NETWORK ENGINEER): Assessment: 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, SMA [...] PT Assessment & Plan (04/07/2020 6:44 PM WIDE AREA NETWORK ENGINEER): Assessment: Marlee is a 19 year old [...] follow up with adolescent medicine on 04/18, [facility] on 05/02, and and scheduling Psych intake visit SOCIAL: - General medicine team spoke with and updated mother on 04/06 LABS: daily urine spec gravity, BMP/Mg/Phos Q T/ Assessment & Plan (04/06/2020 6:45 PM WIDE AREA NETWORK ENGINEER): Assessment: Marlee is a 19 year old [...] T/ Assessment & Plan (04/05/2020 3:22 PM WIDE AREA NETWORK ENGINEER): Assessment: 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, SMA [...] PT Assessment & Plan (04/05/2020 10:49 AM WIDE AREA NETWORK ENGINEER): Assessment: Marlee is a 19 year old [...] / Assessment & Plan (04/04/2020 3:59 PM WIDE AREA NETWORK ENGINEER): Assessment: 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, SMA [...] daily Assessment & Plan (04/04/2020 10:21 AM WIDE AREA NETWORK ENGINEER): Assessment: Marlee is a 19 year old [...] T/ Assessment & Plan (04/03/2020 12:59 PM WIDE AREA NETWORK ENGINEER): Assessment: Marlee is a 19 year old [...] daily Assessment & Plan (04/02/2020 4:19 PM WIDE AREA NETWORK ENGINEER): Assessment: Marlee is a 19 year old [...] daily Assessment & Plan (04/01/2020 11:55 AM WIDE AREA NETWORK ENGINEER): Assessment: 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 and [...] daily Assessment & Plan (04/01/2020 11:15 AM WIDE AREA NETWORK ENGINEER): Assessment: Marlee is a 19 year old [...] daily Assessment & Plan (03/31/2020 12:05 PM WIDE AREA NETWORK ENGINEER): Assessment: 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 and [...] daily Assessment & Plan (03/31/2020 10:06 AM WIDE AREA NETWORK ENGINEER): Assessment: Marlee is a 19 year old [...] daily Assessment & Plan (03/30/2020 2:24 PM WIDE AREA NETWORK ENGINEER): Assessment: Marlee is a 19 year old [...] daily Assessment & Plan (03/29/2020 10:40 AM WIDE AREA NETWORK ENGINEER): Assessment: Marlee is a 19 year old [...] daily Assessment & Plan (03/28/2020 12:29 PM WIDE AREA NETWORK ENGINEER): Assessment: Marlee is a 19 year old [...] allowed in room. May have water from [employer] cup. Oral fluids limited to 250 mL [...] daily Assessment & Plan (03/27/2020 10:34 AM WIDE AREA NETWORK ENGINEER): Assessment: Marlee is a 19 year old [...] daily Assessment & Plan (03/26/2020 11:20 AM WIDE AREA NETWORK ENGINEER): Assessment: Marlee is a 19 year old [...] allowed in room. May have water from [employer] cup. oral fluids limited to 250 mL [...] daily Assessment & Plan (03/25/2020 12:30 PM WIDE AREA NETWORK ENGINEER): Assessment: Marlee is a 19 year old [...] daily Assessment & Plan (03/24/2020 5:02 PM WIDE AREA NETWORK ENGINEER): Assessment: 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 and [...] anxiety Assessment & Plan (03/24/2020 11:19 AM WIDE AREA NETWORK ENGINEER): Assessment: Marlee is a 19 year old [...] daily Assessment & Plan (03/23/2020 12:20 PM WIDE AREA NETWORK ENGINEER): Assessment: Marlee is a 19 year old [...] daily Assessment & Plan (03/22/2020 12:20 PM WIDE AREA NETWORK ENGINEER): Assessment: Marlee is a 19 year old [...] daily Assessment & Plan (03/21/2020 3:10 PM WIDE AREA NETWORK ENGINEER): Assessment: Marlee is a 19 year old [...] 03/15/2020. Assessment & Plan (03/20/2020 10:32 AM WIDE AREA NETWORK ENGINEER): Assessment: Marlee is a 19 year old [...] 03/15/2020. Assessment & Plan (03/19/2020 10:37 AM WIDE AREA NETWORK ENGINEER): Assessment: Marlee is a 19 year old [...] 03/15/2020. Assessment & Plan (03/18/2020 1:00 PM WIDE AREA NETWORK ENGINEER): Assessment: Marlee is a 19 year old [...] 03/15/2020. Assessment & Plan (03/17/2020 10:36 AM WIDE AREA NETWORK ENGINEER): Assessment: Marlee is a 19 year old [...] 03/15/2020. Assessment & Plan (03/16/2020 2:10 PM WIDE AREA NETWORK ENGINEER): Assessment: Marlee is a 19 year old [...] 03/15/2020. Assessment & Plan (03/15/2020 11:10 AM WIDE AREA NETWORK ENGINEER): Assessment: Marlee is a 19 year old [...] 03/15/2020 Assessment & Plan (03/14/2020 9:53 AM WIDE AREA NETWORK ENGINEER): Assessment: Marlee is a 19 year old [...] 03/15/2020 Assessment & Plan (03/13/2020 9:39 AM WIDE AREA NETWORK ENGINEER): Assessment: Marlee is a 19 year old [...] week Assessment & Plan (03/12/2020 11:35 AM WIDE AREA NETWORK ENGINEER): Assessment: Marlee is a 19 year old [...] week Assessment & Plan (03/11/2020 12:43 PM WIDE AREA NETWORK ENGINEER): Assessment: Marlee is a 19 year old [...] week Assessment & Plan (03/10/2020 9:12 AM WIDE AREA NETWORK ENGINEER): Assessment: Marlee is a 19 year old [...] in Assessment & Plan (03/09/2020 10:22 AM WIDE AREA NETWORK ENGINEER): Assessment: Marlee is a 19 year old [...] in Assessment & Plan (03/08/2020 10:52 AM WIDE AREA NETWORK ENGINEER): Assessment: Marlee is a 19 year old [...] in Assessment & Plan (03/07/2020 9:18 AM WIDE AREA NETWORK ENGINEER): Assessment: Marlee is a 19 year old [...] in Assessment & Plan (03/06/2020 10:09 AM WIDE AREA NETWORK ENGINEER): Assessment: Marlee is a 19 year old [...] in Assessment & Plan (03/05/2020 9:56 AM WIDE AREA NETWORK ENGINEER): Assessment: Marlee is a 19 year old [...] in Assessment & Plan (03/04/2020 12:58 PM WIDE AREA NETWORK ENGINEER): Assessment: Marlee is a 19 year old [...] A/P Assessment & Plan (03/03/2020 3:15 PM WIDE AREA NETWORK ENGINEER): Assessment: Marlee is a 19 year old [...] A/P Assessment & Plan (03/02/2020 12:06 PM WIDE AREA NETWORK ENGINEER): Assessment: Marlee is a 19 year old [...] A/P Assessment & Plan (03/01/2020 12:05 PM WIDE AREA NETWORK ENGINEER): Assessment: Marlee is a 19 year old [...] A/P Assessment & Plan (02/29/2020 12:52 PM WIDE AREA NETWORK ENGINEER): Assessment: Marlee is a 19 year old [...] A/P Assessment & Plan (02/28/2020 9:12 AM WIDE AREA NETWORK ENGINEER): Assessment: Marlee is a 19 year old [...] A/P Assessment & Plan (02/27/2020 10:03 AM WIDE AREA NETWORK ENGINEER): Assessment: Marlee is a 19 year old [...] A/P Assessment & Plan (02/26/2020 11:12 AM WIDE AREA NETWORK ENGINEER): Assessment: Marlee is a 19 year old [...] A/P Assessment & Plan (02/25/2020 9:32 AM WIDE AREA NETWORK ENGINEER): Assessment: Marlee is a 19 year old [...] A/P Assessment & Plan (02/24/2020 10:42 AM WIDE AREA NETWORK ENGINEER): Assessment: Marlee is a 19 year old [...] A/P Assessment & Plan (02/23/2020 10:22 AM WIDE AREA NETWORK ENGINEER): Assessment: Marlee is a 19 year old [...] A/P Assessment & Plan (02/22/2020 11:25 AM WIDE AREA NETWORK ENGINEER): Assessment: Marlee is a 19 year old [...] A/P Assessment & Plan (02/21/2020 10:54 AM WIDE AREA NETWORK ENGINEER): Assessment: Marlee is a 19 year old [...] A/P Assessment & Plan (02/20/2020 11:31 AM WIDE AREA NETWORK ENGINEER): Assessment: Marlee is a 19 year old [...] A/P Assessment & Plan (02/19/2020 3:04 PM WIDE AREA NETWORK ENGINEER): Assessment: Marlee is a 19 year old [...] TPN. Assessment & Plan (02/18/2020 10:14 AM WIDE AREA NETWORK ENGINEER): Assessment: Marlee is a 19 year old [...] Sat) Assessment & Plan (02/17/2020 12:30 PM WIDE AREA NETWORK ENGINEER): Assessment: Marlee is a 19 year old [...] pending Assessment & Plan (02/16/2020 2:29 PM WIDE AREA NETWORK ENGINEER): Assessment: Marlee is a 19 year old [...] pending Assessment & Plan (02/15/2020 12:33 PM WIDE AREA NETWORK ENGINEER): Assessment: Marlee is a 19 year old [...] pending Assessment & Plan (02/14/2020 2:23 PM WIDE AREA NETWORK ENGINEER): Assessment: Marlee is a 19 year old [...] pending Assessment & Plan (02/13/2020 11:59 AM WIDE AREA NETWORK ENGINEER): Assessment: Marlee is a 19 year old [...] pending Assessment & Plan (02/12/2020 11:49 AM WIDE AREA NETWORK ENGINEER): Assessment: Marlee is a 19 year old [...] recs Assessment & Plan (02/11/2020 11:56 AM WIDE AREA NETWORK ENGINEER): Assessment: Marlee is a 19 year old [...] recs Assessment & Plan (02/10/2020 12:11 PM WIDE AREA NETWORK ENGINEER): Assessment: Marlee is a 19 year old [...] SG) Assessment & Plan (02/09/2020 11:49 AM WIDE AREA NETWORK ENGINEER): Assessment: Marlee is a 19 year old [...] SG) Assessment & Plan (02/08/2020 12:54 PM WIDE AREA NETWORK ENGINEER): Assessment: Marlee is a 19 year old [...] recs. Assessment & Plan (02/07/2020 12:06 PM WIDE AREA NETWORK ENGINEER): Assessment: Marlee is a 19 year old [...] SG) Assessment & Plan (02/06/2020 8:12 AM WIDE AREA NETWORK ENGINEER): Assessment: Marlee is a 19 year old [...] SG) Assessment & Plan (02/05/2020 9:12 AM WIDE AREA NETWORK ENGINEER): Assessment: Marlee is a 19 year old [...] TG) Assessment & Plan (02/04/2020 12:52 PM WIDE AREA NETWORK ENGINEER): Assessment: Marlee is a 19 year old [...] TG) Assessment & Plan (02/03/2020 2:38 PM WIDE AREA NETWORK ENGINEER): Assessment: Marlee is a 19 year old [...] TG) Assessment & Plan (02/02/2020 4:02 PM WIDE AREA NETWORK ENGINEER): Assessment: Marlee is a 19 year old [...] QOD Assessment & Plan (02/01/2020 12:08 PM WIDE AREA NETWORK ENGINEER): Assessment: Marlee is a 19 year old [...] NG feeds to day and see how Malree tolerates them. If not tolerating will need [...] RBCs. Assessment & Plan (01/31/2020 1:05 PM WIDE AREA NETWORK ENGINEER): Assessment: Marlee is a 19 year old [...] hematuria Assessment & Plan (01/30/2020 10:30 AM WIDE AREA NETWORK ENGINEER): Assessment: Marlee is a 19 year old [...] 10.2 Assessment & Plan (01/29/2020 9:39 PM WIDE AREA NETWORK ENGINEER): Assessment: Marlee is a 19 year old [...] syndrome Assessment & Plan (01/28/2020 11:59 AM WIDE AREA NETWORK ENGINEER): Assessment: Marlee is a 19 year old [...] QOD Assessment & Plan (01/27/2020 3:59 PM WIDE AREA NETWORK ENGINEER): Assessment: Marlee is a 19 year old [...] QOD Assessment & Plan (01/26/2020 5:14 PM WIDE AREA NETWORK ENGINEER): Assessment: Marlee is a 19 year old [...] QOD Assessment & Plan (01/25/2020 2:58 PM WIDE AREA NETWORK ENGINEER): Assessment: Marlee is a 19 year old [...] QOD Assessment & Plan (01/24/2020 11:54 AM WIDE AREA NETWORK ENGINEER): Assessment: Marlee is a 19 year old [...] orthostatics Assessment & Plan (01/23/2020 7:09 AM WIDE AREA NETWORK ENGINEER): Assessment: Marlee is a 19 year old [...] orthostatics Assessment & Plan (01/22/2020 4:25 PM WIDE AREA NETWORK ENGINEER): Assessment: Marlee is a 19 year old [...] orthostatics Assessment & Plan (01/21/2020 8:15 AM WIDE AREA NETWORK ENGINEER): Assessment: Marlee Chavez is a 19 year [...] orthostatics Assessment & Plan (01/20/2020 7:36 AM WIDE AREA NETWORK ENGINEER): Assessment: Marlee Chavez is a 19 year [...] orthostatics Assessment & Plan (01/19/2020 7:20 AM WIDE AREA NETWORK ENGINEER): Assessment: Marlee Chavez is a 19 year [...] orthostatics Assessment & Plan (01/18/2020 4:30 PM WIDE AREA NETWORK ENGINEER): Assessment: Marlee Chavez is a 19 year [...] consult Assessment & Plan (03/27/2020 10:35 AM WIDE AREA NETWORK ENGINEER): Assessment: Marlee is admitted on ED Protocol for severe malnutrition. Following feeding plan per Adolescent Medicine and Nutrition. Plan: - see plan under ARFID problem Assessment & Plan (03/26/2020 11:20 AM WIDE AREA NETWORK ENGINEER): Assessment: Marlee is admitted on ED Protocol for severe malnutrition. Following feeding plan per Adolescent Medicine and Nutrition. Plan: - see plan under ARFID problem Assessment & Plan (03/24/2020 11:19 AM WIDE AREA NETWORK ENGINEER): Assessment: Marlee is admitted on ED Protocol for severe malnutrition. Following feeding plan per [facility]. Plan: - see plan under ARFID problem Assessment & Plan (03/23/2020 9:00 AM WIDE AREA NETWORK ENGINEER): Assessment: Marlee is admitted on ED Protocol for severe malnutrition. Following feeding plan per [facility]. Plan: - see plan under ARFID problem Assessment & Plan (03/22/2020 12:21 PM WIDE AREA NETWORK ENGINEER): Assessment: Marlee is admitted on ED Protocol for severe malnutrition. Following feeding plan per [facility]. Plan: - see plan under ARFID problem Assessment & Plan (03/17/2020 4:26 PM WIDE AREA NETWORK ENGINEER): Assessment: 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 and [...] anxiety Assessment & Plan (03/15/2020 11:10 AM WIDE AREA NETWORK ENGINEER): Assessment: Marlee is admitted on ED Protocol for severe malnutrition. Following feeding plan per [facility] Nutrition. Plan: - see plan under ARFID problem Assessment & Plan (03/10/2020 11:17 AM WIDE AREA NETWORK ENGINEER): Assessment: 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 and [...] needed Assessment & Plan (03/06/2020 10:09 AM WIDE AREA NETWORK ENGINEER): Assessment: Marlee is admitted on ED Protocol for severe malnutrition. Following feeding plan per [facility] Nutrition. Plan: - see plan under ARFID problem Assessment & Plan (03/04/2020 1:41 PM WIDE AREA NETWORK ENGINEER): Assessment: Marlee is admitted on ED Protocol for severe malnutrition. Following feeding plan per [facility] Nutrition. Plan: - see plan under ARFID problem Assessment & Plan (03/04/2020 11:50 AM WIDE AREA NETWORK ENGINEER): Assessment: Marlee is admitted on ED Protocol for severe malnutrition. Following feeding plan per [facility] Nutrition. Plan: - see plan under ARFID problem Assessment & Plan (03/03/2020 3:53 PM WIDE AREA NETWORK ENGINEER): Assessment: 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 and [...] dad. Assessment & Plan (02/27/2020 9:57 AM WIDE AREA NETWORK ENGINEER): Assessment: Marlee is admitted on ED Protocol for severe malnutrition. Following feeding plan per [facility] Nutrition. Plan: - see plan under ARFID problem Assessment & Plan (02/26/2020 9:59 AM WIDE AREA NETWORK ENGINEER): Assessment: 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 and [...] plan. Assessment & Plan (02/25/2020 5:48 PM WIDE AREA NETWORK ENGINEER): Assessment: 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 and [...] plan. Assessment & Plan (02/18/2020 4:54 PM WIDE AREA NETWORK ENGINEER): Assessment: 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 and [...] daily Assessment & Plan (02/11/2020 11:47 AM WIDE AREA NETWORK ENGINEER): Assessment: 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 and [...] BID Assessment & Plan (02/09/2020 11:50 AM WIDE AREA NETWORK ENGINEER): Assessment: Marlee is admitted on ED Protocol for severe malnutrition. Following feeding plan per [facility]. Plan: - see plan under ARFID problem Assessment & Plan (02/07/2020 11:47 AM WIDE AREA NETWORK ENGINEER): Assessment: Marlee is admitted on ED Protocol for severe malnutrition. Following feeding plan per [facility]. Plan: - see plan under ARFID problem Assessment & Plan (02/06/2020 8:12 AM WIDE AREA NETWORK ENGINEER): Assessment: Marlee is admitted on ED Protocol for severe malnutrition. Following feeding plan per [facility] Nutrition. Plan: - see plan under ARFID problem Assessment & Plan (02/05/2020 9:01 AM WIDE AREA NETWORK ENGINEER): Assessment: Marlee is admitted on ED Protocol for severe malnutrition. Following feeding plan per [facility] Nutrition. Plan: - see plan under ARFID problem Assessment & Plan (02/04/2020 12:34 PM WIDE AREA NETWORK ENGINEER): Assessment: Marlee is admitted on ED Protocol for severe malnutrition. Following feeding plan per [facility] Nutrition. Plan: - see plan under ARFID problem Assessment & Plan (02/03/2020 2:28 PM WIDE AREA NETWORK ENGINEER): Assessment: Marlee is admitted on ED Protocol for severe malnutrition. Following feeding plan per [facility] Nutrition. Plan: - see plan under ARFID problem Assessment & Plan (02/02/2020 3:57 PM WIDE AREA NETWORK ENGINEER): Assessment: Marlee is admitted on ED Protocol for severe malnutrition. Following feeding plan per [facility] Nutrition. Plan: - see plan under ARFID problem Assessment & Plan (02/01/2020 12:10 PM WIDE AREA NETWORK ENGINEER): Assessment: Marlee is admitted on ED Protocol for severe malnutrition. Following feeding plan per [facility] Nutrition. Plan: - see plan under ARFID problem Assessment & Plan (01/31/2020 1:04 PM WIDE AREA NETWORK ENGINEER): Assessment: Marlee is admitted on ED Protocol for severe malnutrition. Following feeding plan per [facility] Nutrition. Plan: - see plan under ARFID problem Assessment & Plan (01/30/2020 10:28 AM WIDE AREA NETWORK ENGINEER): Assessment: Marlee is admitted on ED Protocol for severe malnutrition. Following feeding plan per [facility] Nutrition. Plan: - see plan under ARFID problem Assessment & Plan (01/28/2020 4:29 PM WIDE AREA NETWORK ENGINEER): Assessment: 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 and [...] BID Assessment & Plan (01/24/2020 11:54 AM WIDE AREA NETWORK ENGINEER): Assessment: Marlee is admitted on ED Protocol for severe malnutrition. Following feeding plan per [facility] Nutrition. Plan: - see plan under ARFID problem Assessment & Plan (01/23/2020 7:09 AM WIDE AREA NETWORK ENGINEER): Assessment: Marlee is admitted on ED Protocol for severe malnutrition. Following feeding plan per [facility] Nutrition. Plan: - see plan under ARFID problem Assessment & Plan (01/22/2020 9:48 AM WIDE AREA NETWORK ENGINEER): Assessment: 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 and [...] () Assessment & Plan (01/22/2020 7:52 AM WIDE AREA NETWORK ENGINEER): Assessment: Marlee is admitted on ED Protocol for severe malnutrition. Following feeding plan per [facility]olescent [facility] Nutrition. Plan: - see plan under ARFID problem Assessment & Plan (01/21/2020 10:33 AM WIDE AREA NETWORK ENGINEER): Assessment: 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 and [...] () Assessment & Plan (01/21/2020 7:40 AM WIDE AREA NETWORK ENGINEER): Assessment: Marlee is admitted on ED Protocol for severe malnutrition. Following feeding plan per [facility]olescent [facility] and Nutrition. Plan: - see plan under ARFID problem Assessment & Plan (01/20/2020 7:36 AM WIDE AREA NETWORK ENGINEER): Assessment: Marlee is admitted on ED Protocol for severe malnutrition. Following feeding plan per [facility]olescent [facility] and Nutrition. Plan: - see plan under ARFID problem Assessment & Plan (01/19/2020 7:22 AM WIDE AREA NETWORK ENGINEER): Assessment: Marlee is admitted on ED Protocol for severe malnutrition. Following feeding plan per Adolescent [facility] and Nutrition. Plan: - see plan under ARFID problem Assessment & Plan (01/18/2020 4:25 PM WIDE AREA NETWORK ENGINEER): Assessment: Marlee Chavez is a 19 year [...] orthostatics Assessment & Plan (01/17/2020 12:38 PM WIDE AREA NETWORK ENGINEER): Assessment: Marlee Chavez is a 19 year [...] anxiety Assessment & Plan (01/16/2020 1:41 PM WIDE AREA NETWORK ENGINEER): Assessment: Marlee Chavez is a 19 year [...] anxiety Assessment & Plan (01/15/2020 8:49 PM WIDE AREA NETWORK ENGINEER): Assessment: 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 and [...] counseling. Assessment & Plan (01/15/2020 11:57 AM WIDE AREA NETWORK ENGINEER): Assessment: Marlee Chavez is a 19 year [...] anxiety Assessment & Plan (01/14/2020 1:00 PM WIDE AREA NETWORK ENGINEER): Assessment: 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 and [...] () Assessment & Plan (01/14/2020 9:54 AM WIDE AREA NETWORK ENGINEER): Assessment: Marlee Chavez is a 19 year [...] anxiety Assessment & Plan (01/13/2020 2:34 PM WIDE AREA NETWORK ENGINEER): Assessment: Marlee Chavez is a 19 year [...] anxiety Assessment & Plan (01/13/2020 12:01 PM WIDE AREA NETWORK ENGINEER): Moderate protein-calorie malnutrition Assessment: Marlee Chavez is [...] thereafter Assessment & Plan (01/12/2020 3:40 PM WIDE AREA NETWORK ENGINEER): Moderate protein-calorie malnutrition Assessment: Marlee Chavez is [...] chart) Assessment & Plan (01/12/2020 1:25 PM WIDE AREA NETWORK ENGINEER): Assessment: Marlee Chavez is a 19 year [...] anxiety Assessment & Plan (01/11/2020 11:43 AM WIDE AREA NETWORK ENGINEER): Assessment: Marlee Chavez is a 19 year [...] cysts Assessment & Plan (01/10/2020 9:32 AM WIDE AREA NETWORK ENGINEER): Assessment: Marlee Chavez is a 19 year [...] cysts Assessment & Plan (01/09/2020 11:08 AM WIDE AREA NETWORK ENGINEER): Assessment: Marlee Chavez is a 19 year [...] cysts Assessment & Plan (01/08/2020 1:32 PM WIDE AREA NETWORK ENGINEER): Assessment: Marlee Chavez is a 19 year [...] cysts Assessment & Plan (01/07/2020 2:52 PM WIDE AREA NETWORK ENGINEER): Assessment: Marlee Chavez is a 19 year [...] cysts Assessment & Plan (01/06/2020 11:27 AM WIDE AREA NETWORK ENGINEER): Assessment: Marlee Chavez is a 19 year [...] cysts Assessment & Plan (01/05/2020 3:49 PM WIDE AREA NETWORK ENGINEER): Assessment: Marlee Chavez is a 19 year [...] cysts Assessment & Plan (01/04/2020 1:53 PM WIDE AREA NETWORK ENGINEER): Assessment: Marlee Chavez is a 19 year [...] cysts Assessment & Plan (01/03/2020 12:34 AM WIDE AREA NETWORK ENGINEER): Assessment: Marlee Chavez is a 19 year [...] 03/18/2023 Assessment & Plan (01/24/2022 5:04 PM WIDE AREA NETWORK ENGINEER): Assessment: Marlee Chavez is a 20 year [...] gabapentin Assessment & Plan (01/23/2022 6:56 PM WIDE AREA NETWORK ENGINEER): Assessment: Marlee Chavez is a 20 year [...] pain Assessment & Plan (01/08/2021 3:05 PM WIDE AREA NETWORK ENGINEER): Assessment: Patient is an 20 year old [...] I&Os Assessment & Plan (01/07/2021 4:52 PM WIDE AREA NETWORK ENGINEER): Assessment: Patient is an 20 year old [...] it Assessment & Plan (01/06/2021 6:00 PM WIDE AREA NETWORK ENGINEER): Assessment: Patient is an 20 year old [...] I&Os Assessment & Plan (01/05/2021 1:27 PM WIDE AREA NETWORK ENGINEER): Assessment: Patient is an 20 year old [...] I&Os Assessment & Plan (01/04/2021 9:17 PM WIDE AREA NETWORK ENGINEER): Assessment: Patient is an 20 year old [...] I&Os Assessment & Plan (01/03/2021 8:43 PM WIDE AREA NETWORK ENGINEER): Assessment: Patient is an 20 year old [...] wearing condom. 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 Plan: -urine test today -GC, chlamydia, trichomonas testing Assessment & Plan (05/24/2020 2:43 PM CDT): Will get urine Hcg and STI testing. Mom is aware and Marlee is ok with us communicating results to her mother. Purging 03/24/2020 05/24/2020 Assessment & Plan (04/05/2020 3:23 PM WIDE AREA NETWORK ENGINEER): Assessment: Has been drinking excessive amounts of water and putting her fingers in her mouth to induce vomiting. No recorded emesis since 03/25. Plan: Will limit access to water to 250ml at a time. May only bathe once per day after she has taken her meds, had breakfast and lunch. Assessment & Plan (04/04/2020 12:58 PM WIDE AREA NETWORK ENGINEER): Assessment: Has been drinking excessive amounts of water and putting her fingers in her mouth to induce vomiting. No recorded emesis since 03/25. Plan: Will limit access to water to 250ml at a time. May only bathe once per day after she has taken her meds, had breakfast and lunch. Assessment & Plan (04/01/2020 11:55 AM WIDE AREA NETWORK ENGINEER): Assessment: Has been drinking excessive amounts of water and putting her fingers in her mouth to induce vomiting. No recorded emesis since 03/25. Plan: Will limit access to water to 250ml at a time. May only bathe once per day after she has taken her meds, had breakfast and lunch. Assessment & Plan (03/24/2020 4:53 PM WIDE AREA NETWORK ENGINEER): Assessment: Has been drinking excessive amounts of water and putting her fingers in her mouth to induce vomiting. Plan: Will limit access to water to 250ml at a time. May only bathe once per day after she has taken her meds, had breakfast and lunch. Ovarian cyst 01/12/2020 03/19/2020 Assessment & Plan (03/15/2020 11:10 AM WIDE AREA NETWORK ENGINEER): Assessment: on ultrasound on R Plan: -Radiology recommended repeat imaging in 6 months for ovarian cysts Assessment & Plan (03/04/2020 1:41 PM WIDE AREA NETWORK ENGINEER): Assessment: on ultrasound on R Plan: -Radiology recommended repeat imaging in 6 months for ovarian cysts Assessment & Plan (03/04/2020 11:50 AM WIDE AREA NETWORK ENGINEER): Assessment: on ultrasound on R Plan: -Radiology recommended repeat imaging in 6 months for ovarian cysts Assessment & Plan (02/27/2020 9:58 AM WIDE AREA NETWORK ENGINEER): Assessment: on ultrasound on R Plan: -Radiology recommended repeat imaging in 6 months for ovarian cysts Assessment & Plan (01/28/2020 11:59 AM WIDE AREA NETWORK ENGINEER): Assessment: on ultrasound on R Plan: -Radiology recommended repeat imaging in 6 months for ovarian cysts Assessment & Plan (01/27/2020 3:52 PM WIDE AREA NETWORK ENGINEER): Assessment: on ultrasound on R Plan: -Radiology recommended repeat imaging in 6 months for ovarian cysts Assessment & Plan (01/26/2020 6:01 PM WIDE AREA NETWORK ENGINEER): Assessment: on ultrasound on R Plan: -Radiology recommended repeat imaging in 6 months for ovarian cysts Assessment & Plan (01/13/2020 2:33 PM WIDE AREA NETWORK ENGINEER): Assessment: on ultrasound on R Plan: -Radiology recommended repeat imaging in 6 months for ovarian cysts Assessment & Plan (01/12/2020 1:26 PM WIDE AREA NETWORK ENGINEER): Assessment: on ultrasound on R Plan: -Radiology [...] 06/07/2024 7:04 AM CDT Emergency ER at [address] [address] Momo Yung MD Abdominal pain, epigastric; Nausea vomiting and diarrhea Discharge Disposition: Home or Self Care 06/07/2024 Travel 05/22/2024 Travel 05/12/2024 Travel 05/07/2024 10:00 AM CDT Office Visit [address] [address] Ronel Thornton DO Anorexia (Primary Dx); Generalized anxiety disorder 04/29/2024 8:20 AM CDT Office Visit [address] [address] Ronel Thornton DO Anorexia (Primary Dx); Severe bulimia nervosa; Generalized anxiety disorder; Recurrent major depressive disorder, in full remission; PTSD (post-traumatic stress disorder); Borderline personality disorder 04/09/[address] [phone] Ronel Thornton DO Appointment from Last 3 Months Immunizations Immunization Administration Dates Next Due Spreecast primary monoval ent 12+ yr 0.3mL Purple [...] Recorded Patient Health Questionnaire-2 Score 0 05/22/2024 [facility] - Occupational [...] place to sleep or slept in a halfway (including now)? No 04/24/2023 Comments No Sex and Gender Information Value Date Recorded Sex Assigned at Not on file Legal Sex Female 6:25 PM WIDE AREA NETWORK ENGINEER Gender Identity Not on file Sexual [...] Description 06/08/2024 1:20 PM CDT Office Visit [address] [address] Ronel Thornton DO [address] [place] [address] 01/20/2025 8:20 AM WIDE AREA NETWORK ENGINEER Office Visit [address] [address] [place] [address] [place] [address] Health Maintenance Due Date Last Done [...] Procedure Name Priority Date/Time Associated Diagnosis Comments CT ABDOMEN PELVIS W CONTRAST STAT 06/07/2024 3:35 AM CDT Abdominal pain, epigastric HCG BETA BLOOD QUANTITATIVE STAT 06/07/2024 2:50 [...] PANEL Routine 04/29/2024 8:58 AM CDT Anorexia ME ELECTROCARDIOGRAM, COMPLETE Routine 04/29/2024 Anorexia PAP CERVICAL [...] Recently Relevant to Health Maintenance Results * CT Abdomen Pelvis W Contrast (06/07/2024 3:35 AM CDT) Anatomical Region Laterality Modality Abdomen, Pelvis Computed Tomogra phy 06/07/2024 8:19 AM CDT Impressions 06/07/2024 8:22 AM CDT IMPRESSION: 1. No evidence of acute process. > Interpreting Provider: Damian Deutsch MD on 06/07/2024 8:22 AM Narrative 06/07/2024 8:22 AM CDT PROCEDURE: CT ABDOMEN PELVIS W CONTRAST DATE/TIME OF EXAM: 06/07/2024 3:35 AM CLINICAL INFORMATION: None relevant/not provided if blank. Indication: R10.13: Epigastric pain Additional History: COMPARISON: Most recently 08/15/2022 TECHNIQUE: CT of the abdomen and pelvis was performed following intravenous contrast utilizing standard protocol. CT dose reduction technique was used, including Automated Exposure Control. CONTRAST: IOPAMIDOL 76 % IV SOLN:80 mL FINDINGS: LUNG BASES: Within normal limits LIVER: Within normal limits. BILE DUCTS: Nondilated. GALLBLADDER: Within normal limits. SPLEEN: Within normal limits. PANCREAS: Within normal limits. ADRENALS: Within normal limits. KIDNEYS/URETERS: Within normal limits. BOWEL: Normal in caliber. PERITONEUM/RETROPERITONEUM: No ascites, free air or enlarged mesenteric/retroperitoneal lymph nodes. PELVIC ORGANS: Uterus is retroverted and contains an intrauterine device. The adnexa and bladder are within normal limits. The appendix contains high attenuating material in its tip but otherwise appears normal. VESSELS: Within normal limits. ABDOMINAL WALL: Within normal limits. BONES: No suspicious lytic or blastic lesions. Procedure Note Damian Deutsch MD - 06/07/2024 PROCEDURE: CT ABDOMEN PELVIS W CONTRAST DATE/TIME OF EXAM: 06/07/2024 3:35 AM CLINICAL INFORMATION: None relevant/not provided if blank. Indication: R10.13: Epigastric pain Additional History: COMPARISON: Most recently 08/15/2022 TECHNIQUE: CT of the abdomen and pelvis was performed following intravenouscontrast utilizing standard protocol. CT dose reduction technique was used, including Automated ExposureControl. CONTRAST: IOPAMIDOL 76 % IV SOLN:80 mL FINDINGS: LUNG BASES: Within normal limits LIVER: Within normal limits. BILE DUCTS: Nondilated. GALLBLADDER: Within normal limits. SPLEEN: Within normal limits. PANCREAS: Within normal limits. ADRENALS: Within normal limits. KIDNEYS/URETERS: Within normal limits. BOWEL: Normal in caliber. PERITONEUM/RETROPERITONEUM: No ascites, free air or enlarged mesenteric/retroperitoneal lymph nodes. PELVIC ORGANS: Uterus is retroverted and contains an intrauterinedevice. The adnexa and bladder are within normal limits. The appendix containshigh attenuating material in its tip but otherwise appears normal. VESSELS: Within normal limits. ABDOMINAL WALL: Within normal limits. BONES: No suspicious lytic or blastic lesions. IMPRESSION: 1. No evidence of acute process. > Interpreting Provider: Damian Deutsch MD on 06/07/2024 8:22 AM Momo Yung MD CT ORDERABLES Final Result * (ABNORMAL) COMPREHENSIVE METABOLIC PANEL (06/07/2024 2:50 AM CDT) Only the most recent of2 resultswithin the time period is included. Glucose 60(L) 70 - 99 mg/dL 06/07/2024 3:08 AM CDT [facility] Sodium 138 136 - 145 mmol/L 06/07/2024 3:08 AM CDT [facility] Potassium 3.9 3.5 - 5.1 mmol/L 06/07/2024 3:08 AM CDT [facility] Chloride 100 98 - 107 mmol/L 06/07/2024 3:08 AM CDT [facility] CO2 18(L) 22 - 29 mmol/L 06/07/2024 3:08 AM CDT [facility] Calcium 9.8 8.4 - 10.4 mg/dL 06/07/2024 3:08 AM CDT [facility] Anion Gap 20(H) 6 - 16 mmol/L 06/07/2024 3:08 AM CDT [facility] BUN 27(H) 5.3 - 18.7 mg/dL 06/07/2024 3:08 AM CDT [facility] Creatinine 1.07 0.57 - 1.11 mg/dL 06/07/2024 3:08 AM CDT [facility] Alkaline Phosphatase 66 40 - 150 U/L 06/07/2024 3:08 AM CDT [facility] ALT 18 6 - 57 U/L 06/07/2024 3:08 AM CDT [facility] AST 36 10 - 48 U/L 06/07/2024 3:08 AM CDT [facility] Protein Total 9.0(H) 6.4 - 8.3 gm/dL 06/07/2024 3:08 AM CDT [facility] Albumin 5.0 3.4 - 5.0 gm/dL 06/07/2024 3:08 AM CDT [facility] Bilirubin Total 0.7 0.2 - 1.2 mg/dL 06/07/2024 3:08 AM T [facility] eGFR by CKD-EPI 76(L) >=90 mL/min/1.7 3 m2 06/07/2024 3:08 AM CDT [facility] Blood BLOOD SPECIMEN / Unknown Venipuncture / Unknown 06/07/2024 2:50 AM CDT 06/07/2024 2:50 AM CDT us Momo Yung MD LAB - CHEMISTRY ORDERABLES F inal Result Performing Organization Address City/State/[facility] Co de Phone Number [facility] [address] [place], [place] [phone] * HCG BETA BLOOD QUANTITATIVE (06/07/2024 2:50 AM CDT) [facility] hCG Quantitative <2.42 mIU/mL 06/08/19 3:11 AM CDT [facility] Blood BLOOD SPECIMEN / Unknown Venipuncture / Unknown 06/07/2024 2:50 AM CDT 06/07/2024 2:50 AM CDT Narrative [facility] - 06/07/2024 3:11 AM CDT [...] a serum FSH >20 IU/L makes unlikely. us Momo Yung MD LAB - CHEMISTRY ORDERABLES F inal Result Performing Organization Address City/[facility] Co de Phone Number [facility] [address] [place] [phone] * PHOSPHORUS BLOOD (06/07/2024 2:50 AM CDT) Phosphorus 4.5 2.5 - 4.5 mg/dL 06/07/2024 3:08 AM CDT [facility] Blood BLOOD SPECIMEN / Unknown Venipuncture / Unknown 06/07/2024 2:50 AM CDT 06/07/2024 2:50 AM CDT Momo Yung MD LAB - CHEMISTRY ORDERABLES F inal Result Performing Organization Address City/[facility]/ZIP Co de Phone Number [facility] [address] [place] [phone] * MAGNESIUM BLOOD (06/07/2024 2:50 AM CDT) Only the most recent of2 resultswithin the time period is included. Magnesium 2.2 1.6 - 2.6 mg/dL 06/07/2024 3:08 AM CDT [facility] Blood BLOOD SPECIMEN / Unknown Venipuncture / Unknown 06/07/2024 2:50 AM CDT 06/07/2024 2:50 AM CDT Momo Yung MD LAB - CHEMISTRY ORDERABLES F inal Result Performing Organization Address City/[facility]/ZIP Co de Phone Number [facility] [address] [place] [phone] * (ABNORMAL) LIPASE BLOOD (06/07/2024 2:50 AM CDT) Lipase 84(H) <60 U/L 06/07/2024 3:08 AM CDT [facility] Blood BLOOD SPECIMEN / Unknown Venipuncture / Unknown 06/07/2024 2:50 AM CDT 06/07/2024 2:50 AM CDT Momo Yung MD LAB - CHEMISTRY ORDERABLES F inal Result Performing Organization Address [facility] Co de Phone Number [facility] [address] [place] [address] * CBC W AUTO DIFFERENTIAL (06/07/2024 2:49 AM CDT) Only the most recent of2 resultswithin the time period is included. WBC 9.6 4.0 - 10.7 x10E9/L 06/07/2024 2:51 AM CDT [facility] RBC Count 4.88 3.90 - 5.20 x10E12/L 06/07/2024 2:51 AM CDT [facility] Hemoglobin 14.8 11.9 - 15.8 g/dL 06/07/2024 2:51 AM CDT [facility] Hematocrit 44.1 34.8 - 46.1 % 06/07/2024 2:51 AM CDT [facility] MCV 90.4 80.0 - 98.0 fL 06/07/2024 2:51 AM CDT [facility] MCH 30.3 26.7 - 33.6 pg 06/07/2024 2:51 AM CDT [facility] MCHC 33.6 31.7 - 36.3 g/dL 06/07/2024 2:51 AM CDT [facility] RDW-CV 12.6 11.3 - 14.8 % 06/07/2024 2:51 AM CDT [facility] Platelet Count 353 150 - 420 x10E9/L 06/07/2024 2:51 AM CDT [facility] MPV 9.6 7.8 - 11.4 fL 06/07/2024 2:51 AM CDT [facility] Neutrophil % 70.8 41.0 - 74.0 % 06/07/2024 2:51 AM CDT [facility] Lymphocyte % 18.4 17.0 - 47.0 % 06/07/2024 2:51 AM CDT [facility] Monocyte % 10.3 3.0 - 11.0 % 06/07/2024 2:51 AM CDT [facility] Eosinophil % 0.0 0.0 - 7.0 % 06/07/2024 2:51 AM CDT [facility] Basophil % 0.2 0.0 - 1.6 % 06/07/2024 2:51 AM CDT [facility] Immature Granulocytes % 0.3 0.0 - 1.0 % 06/07/2024 2:51 AM CDT [facility] [facility] Neutrophil Absolute 6.79 1.60 - 7.50 x10E9/L 06/07/2024 2:51 AM CDT [facility] Lymphocyte Absolute 1.77 1.00 - 4.40 x10E9/L 06/07/2024 2:51 AM CDT [facility] Monocyte Absolute 0.99 0.15 - 1.00 x10E9/L 06/07/2024 2:51 AM CDT [facility] Eosinophil Absolute 0.00 0.00 - 0.60 x10E9/L 06/07/2024 2:51 AM CDT [facility] Basophil Absolute 0.02 0.00 - 0.13 x10E9/L 06/07/2024 2:51 AM CDT [facility] Blood BLOOD SPECIMEN / Unknown Venipuncture / Unknown 06/07/2024 2:49 AM CDT 06/07/2024 2:49 AM CDT us Momo Yung MD LAB - HEMATOLOGY ORDERABLES Final Result [facility] [address] [place] [address] * LIPID PROFILE (04/29/2024 8:58 AM CDT) [...] - 04/29/2024 6:09 PM CDT Performed at: [place] [address] , [place], [place] [id number] Highway Engineering Teacher: Elizabeth Rangel [facility], Phone: [phone] Ronel Thornton DO LAB - CHEMISTRY ORDERABLES Fi nal Result [facility] ACCOUNT BILL [address] [place] [address] * ME ELECTROCARDIOGRAM, COMPLETE (04/29/2024) Ronel Thornton DO ME - PROFESSIONAL SERVICES Ed ited Result - Final * (ABNORMAL) PAP CERVICAL CANCER SCREEN CT/NG/TV APT (11/29/2023 11:06 AM CDT) Age Gdln ACOG Testing 21-29 [facility] ACCOUNT BILL Comment: Performed at: - [facility] [address] [id number] [address] Engineering Teacher: Meredith Gil MD, Phone: [phone] Performed at: - [facility] [address] [id number] [address] Engineering Teacher: Meredith Gil MD, Phone: [phone] Diagnosis Comment(A) [facility] ACCOUNT BILL Comment: EPITHELIAL [...] 11:06 AM CDT 11/29/2023 Comment:Cervix Release to chandra Brennan [facility] ACCOUNT BILL - 12/05/2023 5:09 PM CDT Performed at: [address] [place] [id number] Engineering Teacher: Meredith Gil MD, Phone: [phone] Specimen Comment: [id number] Specimen Comment: Source.............Cervix Specimen Comment: No. of containers..01 ThinPrep Vial us Nai Jurado MD LAB - PATHOLOGY/CYTOLOGY [place] Final Result [facility] ACCOUNT BILL [address] [place] [address] * HIV-1 HIV-2 ANTIBODY + HIV P24 [...] - 11/30/2023 10:10 AM CDT Performed at: [facility] [address] [place], [place] [id number] Highway Engineering Teacher: Karlos Huffman PhD, Phone: [phone] us Nai Jurado MD LAB - CHEMISTRY ORDERABLES Fi nal Result [facility] ACCOUNT BILL [address] [place] [address] * HEPATITIS C AB W/RFLX TO HCV RNA QN PCR (12/07/2021) Hepatitis C Antibody NON-REACTI VE NON-REACT [facility] Signal to Cut-Off 0.08 <1.00 [facility] Comment: HCV antibody was non-reactive. There is no laboratory evidence of HCV infection. In most cases, no further action is required. However, if recent HCV exposure is suspected, a test for HCV RNA (test code 95024) is suggested. For additional information please refer to http://education.No Chains/faq/EVI57b5 (This link is being provided for informational/ educational purposes only.) Test Performed at: [facility] [address] [place] [address] PURVI PABLO DO,MPH Blood BLOOD SPECIMEN / Unknown 12/07/2021 12/07/2021 10:47 AM CDT Karrie Mack MD LAB - CHEMISTRY ORDERABLES Final Result [facility] [address] [place] [address] from Last 3 Months or Most Recently Relevant to Health Maintenance Insurance [facility] Member Subscriber Plan / Payer ( fective 2023-) Name:Marlee Chavez Relation to Subscriber:Child Name:NAI NEWMAN Date of :1984 (Home) (Work) Address: [address] [place] [address] Payer ID:[id number] (NAIC) Group ID:[id number] Type:Commercial Address: [place] [id number] [facility] Advance Directives * Full Code (Latest [...] 4:54 PM 06/22/2022 2:44 PM Care Teams Art Historian Relationship Specialty Start Date End Date Ronel Thornton DO [address] [place] [address] PCP - General Family Medicine 03/18/23 Ronel Thornton DO [address] [place] [address] PCP - Attributed-[facility] 04/12/23
--- OUTSIDE RECORDS SUMMARY | 2024-06-07 08:31 | XMS_ITS | Encounter Summary ---
Author Organization [facility] Address [address] [place] [address] Care Team Providers Care Automation Controls Expert Name Role Phone Mellissa Jiménez MD Primary Care Provider [phone] Ronel Thornton DO Primary Care Provider Daphnie Gillespie MD Unavailable Juliana Peralta UNIT SECRETARY Unavailable [phone] Juliana Peralta UNIT SECRETARY Unavailable [phone] Ronel Thornton DO Unavailable Kenyatta Taylor RN Unavailable Tiago Lew Unavailable [phone] Reason for Visit * Reason Onset Date Comments Forms/questionnaires 01/23/2021 Encounter Details Date Type Department Care Team (Late st Contact Info) Description 01/23/2021 Telephone [facility] - Surgery [address] [place] [address] Daphnie Gillespie MD [address] [place] [phone] Forms/questionnaires Social History Tobacco Use Types [...] on file Legal Sex Female 6:25 PM RADIOISOTOPE TECHNOLOGIST Gender Identity Not on file Sexual Orientation Not on file COVID-19 Exposure Response Date Recorded In the last month, have you been in contact with someone who was confirmed or suspected to have Coronavirus / COVID-19? No / Unsure 01/24/2021 11:47 AM RADIOISOTOPE TECHNOLOGIST documented as of this encounter Functional Status [...] wanted to know if it was received. OISOTOPE TECHNOLOGIST documented in this encounter Plan of Treatment Upcoming Encounters Date Type Department Care Team (Late st Contact Info) Description 06/08/2024 1:20 PM CDT Office Visit [address] [address] Ronel Thornton DO [address] [place] [address] 01/20/2025 8:20 AM RADIOISOTOPE TECHNOLOGIST Office Visit [address] [address] Ronel Thornton DO [address] [place] [address] documented as of this encounter Visit Diagnoses Not on filedocumented in this encounter Additional Health Concerns Infection Onset Date Last Indicated Resolved Time COVID-19 Under Investigation 08/10/2021 08/10/2021 08/10/2021 2:59 AM CDT documented as of this encounter Care Teams Automation Controls Expert Relationship Specialty Start Date End Date Mellissa Jiménez MD [address] [place] [address] [place] [address] PCP - General Family Medicine 04/25/20 03/17/23 Ronel Thornton DO [address] [place], [place] [address], [place] [address] PCP - General Family Medicine 03/18/23 Daphnie Gillespie MD [facility] [place] [address] PCP - Attributed-[facility] 02/11/23 04/11/23 Ronel Thornton DO [address] [place] [id number] PCP - Attributed-[facility] 04/12/23 Juliana Peralta MSW Outpatient Stereotype Molder Care Management 04/24/2304/11 Juliana Peralta MSW Outpatient Stereotype Molder Care Management 04/30/2304/12 Kenyatta Taylor RN [address] [address] User Support Analyst SupervisorTuber Machine Operator 09/02/23 10/04/23 Tiago Lew Care Coordination Specialist Care Management 09/26/23 11/10/23 documented as of this encounter
--- OUTSIDE RECORDS SUMMARY | 2024-06-07 08:31 | XMS_ITS | Encounter Summary ---
Author Organization [facility] Address [address] [place] [address] Care Team Providers Care Industrial Pharmacist Name Role Phone Ronel Thornton DO Primary Care Provider [phone] Ronel Thornton DO Unavailable [phone] Reason for Visit * Reason Comments Vomiting Pain Abdominal Diarrhea Encounter Details Date Type Department Care Team (Late st Contact Info) Description 06/07/2024 2:27 AM CDT - 06/07/2024 7:04 AM CDT Emergency ER at 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 Patient Name:MARLEE CHAVEZ MR NO:[id number] Accession No: Enrique Roy M.D. Electronically Signed [...] created with voice recognition software. Occasional wrong-wordor '[id number]' substitutions may have occurred due to the [...] Description 06/08/2024 1:20 PM CDT Office Visit [facility] - Family Medicine [address] [place] [address] [place] [address] [place] [address] [place] [address] 01/20/2025 8:20 AM FORMING OPERATOR Office Visit [facility] - Family Medicine [address] [place] [phone] Ronel Thornton, DO [facility] [place] [address] Scheduled Orders Name Type Priority Associated Diagnoses Orde r Schedule HYDROXYBUTYRATE BETA Lab STAT ONCE for 1 Occurrences starting 06/07/2024 until 06/07/2024 documented as of this encounter Procedures Procedure Name Priority Date/Time Associated Diagnosis Comments CT ABDOMEN PELVIS W CONTRAST STAT 06/07/2024 3:35 AM CDT Abdominal pain, epigastric COMPREHENSIVE METABOLIC PANEL STAT 06/07/2024 2:50 AM CDT HCG BETA BLOOD QUANTITATIVE STAT 06/07/2024 2:50 AM CDT PHOSPHORUS BLOOD STAT 06/07/2024 2:50 AM CDT MAGNESIUM BLOOD STAT 06/07/2024 2:50 AM CDT LIPASE BLOOD STAT 06/07/2024 2:50 AM CDT CBC W AUTO DIFFERENTIAL STAT 06/07/2024 2:49 AM CDT documented in this encounter Results * CT Abdomen Pelvis W Contrast [...] Yung MD CT ORDERABLES Final Result * HCG BETA BLOOD QUANTITATIVE (06/07/2024 2:50 AM CDT) hCG Quantitative <2.42 mIU/mL 06/08/19 3:11 AM CDT [facility] Blood BLOOD SPECIMEN / Unknown Venipuncture / Unknown 06/07/2024 2:50 AM CDT 06/07/2024 2:50 AM CDT Narrative [facility] - 06/07/2024 3:11 AM CDT [...] LAB - CHEMISTRY ORDERABLES F inal Result [facility] [address] [place] [address] * (ABNORMAL) LIPASE BLOOD (06/07/2024 2:50 AM CDT) Pathologist [facility] Lipase 84(H) <60 U/L 06/07/2024 3:08 AM CDT [facility] Blood BLOOD SPECIMEN / Unknown Venipuncture / Unknown 06/07/2024 2:50 AM CDT 06/07/2024 2:50 AM CDT Momo Yung MD LAB - CHEMISTRY ORDERABLES F inal Result Performing Organization Address [facility]/ZIP Co de Phone Number [facility] [address] [place] [address] * MAGNESIUM BLOOD (06/07/2024 2:50 AM CDT) Magnesium 2.2 1.6 - 2.6 mg/dL 06/07/2024 3:08 AM CDT [facility] Blood BLOOD SPECIMEN / Unknown Venipuncture / Unknown 06/07/2024 2:50 AM CDT 06/07/2024 2:50 AM CDT Momo Yung MD LAB - CHEMISTRY ORDERABLES F inal Result Performing Organization Address [facility] de Phone Number [facility] [address] [place] [address] * PHOSPHORUS BLOOD (06/07/2024 2:50 AM CDT) Phosphorus 4.5 2.5 - 4.5 mg/dL 06/07/2024 3:08 AM CDT [facility] Blood BLOOD SPECIMEN / Unknown Venipuncture / Unknown 06/07/2024 2:50 AM CDT 06/07/2024 2:50 AM CDT Momo Yung MD LAB - CHEMISTRY ORDERABLES F inal Result Performing Organization Address [facility] Co de Phone Number [facility] [address] [place] [address] * (ABNORMAL) COMPREHENSIVE METABOLIC PANEL (06/07/2024 2:50 AM CDT) Glucose 60(L) 70 - 99 mg/dL 06/07/2024 3:08 AM CDT [facility] Sodium 138 136 - 145 mmol/L 06/07/2024 3:08 AM CDT [facility] Potassium 3.9 3.5 - 5.1 mmol/L 06/07/2024 3:08 AM CDT [facility] Chloride 100 98 - 107 mmol/L 06/07/2024 3:[facility] CO2 18(L) 22 - 29 mmol/L 06/07/2024 3:08 AM T [facility] Calcium 9.8 8.4 - 10.4 mg/dL 06/07/2024 3:08 AM [facility] Anion Gap 20(H) 6 - 16 mmol/L 06/07/2024 3:08 AM CDT [facility] BUN 27(H) 5.3 - 18.7 mg/dL 06/07/2024 3:08 AM [facility] Creatinine 1.07 0.57 - 1.11 mg/dL 06/07/2024 3:08 AM [facility] Alkaline Phosphatase 66 40 - 150 U/L 06/07/2024 3:08 AM T [facility] ALT 18 6 - 57 U/L 06/07/2024 3:08 AM T [facility] AST 36 10 - 48 U/L 06/07/2024 3:08 AM [facility] Protein Total 9.0(H) 6.4 - 8.3 gm/dL 06/07/2024 3:08 AM [facility] Albumin 5.0 3.4 - 5.0 gm/dL 06/07/2024 3:08 AM [facility] Bilirubin Total 0.7 0.2 - 1.2 mg/dL 06/07/2024 3:08 AM [facility] eGFR by CKD-EPI 76(L) >=90 mL/min/1.7 3 m2 06/07/2024 3:08 AM [facility] Blood BLOOD SPECIMEN / Unknown Venipuncture / Unknown 06/07/2024 2:50 AM CDT 06/07/2024 2:50 AM CDT us Momo Yung MD LAB - CHEMISTRY ORDERABLES F inal Result [facility] [address] [place] [address] * CBC W AUTO DIFFERENTIAL (06/07/2024 2:49 AM CDT) [facility] WBC 9.6 4.0 - 10.7 x10E9/L 06/07/2024 2:51 AM CDT [facility] RBC Count 4.88 3.90 - 5.20 x10E12/L 06/07/2024 2:51 AM CDT [facility] Hemoglobin 14.8 11.9 - 15.8 g/dL 06/07/2024 2:51 AM CDT [facility] Hematocrit 44.1 34.8 - 46.1 % 06/07/2024 2:51 AM CDT [facility] MCV 90.4 80.0 - 98.0 fL 06/07/2024 2:51 AM CDT [facility] MCH 30.3 26.7 - 33.6 pg 06/07/2024 2:51 AM CDT [facility] MCHC 33.6 31.7 - 36.3 g/dL 06/07/2024 2:51 AM CDT [facility] RDW-CV 12.6 11.3 - 14.8 % 06/07/2024 2:51 AM CDT [facility] Platelet Count 353 150 - 420 x10E9/L 06/07/2024 2:51 AM CDT [facility] MPV 9.6 7.8 - 11.4 fL 06/07/2024 2:51 AM CDT [facility] Neutrophil % 70.8 41.0 - 74.0 % 06/07/2024 2:51 AM CDT [facility] Lymphocyte % 18.4 17.0 - 47.0 % 06/07/2024 2:51 AM CDT [facility] Monocyte % 10.3 3.0 - 11.0 % 06/07/2024 2:51 AM CDT [facility] Eosinophil % 0.0 0.0 - 7.0 % 06/07/2024 2:51 AM CDT [facility] Basophil % 0.2 0.0 - 1.6 % 06/07/2024 2:51 AM CDT [facility] Immature Granulocytes % 0.3 0.0 - 1.0 % 06/07/2024 2:51 AM CDT [facility] Neutrophil Absolute 6.79 1.60 - 7.50 x10E9/L 06/07/2024 2:51 AM CDT [facility] Lymphocyte Absolute 1.77 1.00 - 4.40 x10E9/L 06/07/2024 2:51 AM CDT [facility] Monocyte Absolute 0.99 0.15 - 1.00 x10E9/L 06/07/2024 2:51 AM CDT [facility] Eosinophil Absolute 0.00 0.00 - 0.60 x10E9/L 06/07/2024 2:51 AM CDT [facility] Basophil Absolute 0.02 0.00 - 0.13 x10E9/L 06/07/2024 2:51 AM CDT [facility] Blood BLOOD SPECIMEN / Unknown Venipuncture / Unknown 06/07/2024 2:49 AM CDT 06/07/2024 2:49 AM CDT Momo Yung MD LAB - HEMATOLOGY ORDERABLES Final Result Performing Organization Address City/State/[facility] Co va Phone Number [facility] [address] [place] [address] documented in this encounter Visit Diagnoses Diagnosis Abdominal pain, epigastric Nausea vomiting and diarrhea Nausea with vomiting documented in this encounter Administered Medications Inactive Administered Medications - up to 3 most recent administrations Medication Order MAR Action Action Date Dose Rate Site 0.9% NaCl injection 0-10 mL 0-10 mL, Intracatheter, ONCE PRN, Other, Contrast flush, 1 dose, Starting on 06/07/24 at 0315, Until 06/07/24 at 0324, For administration with contrast. $ Given 06/07/2024 3:24 AM CDT 10 mL 0.9% NaCl IV flush bag 0-250 mL, Intracatheter, ONCE PRN, Contrast flush, 1 dose, Starting on 06/07/24 at 0315, Until 06/07/24 at 0324, For administration with contrast $ Given 06/07/2024 3:24 AM CDT 50 mL ALPRAZolam (Xanax) tablet 0.5 mg 0.5 mg, Oral, NOW, 1 dose, On 06/07/24 at 0345 $ Given 06/07/2024 3:54 AM CDT 0.5 mg dextrose 5 % and lactated ringers infusion at 125 mL/hr, Intravenous, CONTINUOUS, Starting on 06/07/24 at 0400, Until 06/07/24 at 0824 $ New Bag/Syringe 06/07/2024 5:24 AM CDT 125 mL/hr famotidine (Pepcid) injection 20 mg 20 mg, Intravenous, NOW, 1 dose, On 06/07/24 at 0300, Dilute with 0.9% NaCl, D5W solution, or SWI to a volume of 5 to 10 mL and administer over at least 2 minutes. $ Given 06/07/2024 3:00 AM CDT 20 mg iopamidol (Isovue 370) 76 % contrast Intravenous, CONTRAST ONCE, Starting on 06/07/24 at 0315, Until 06/07/24 at 0824 $ Given - Contrast 06/07/2024 3:24 AM CDT 80 mL prochlorperazine (Compazine) injection 10 mg 10 mg, [...] minutes. 0300 ($ Given - Prov ider: DAMIAN Hughes-P) iopamidol (Isovue 370) 76 % contrast Intravenous, CONTRAST ONCE, Starting on 06/07/24 at 0315, Until 06/07/24 at 0824 0324 ($ Given - Cont rast - Provider: Bhavesh Foote, RT(R)CT) lactated ringers IV bolus 1,000 mL, at 1,935.48 mL/hr, Administer over 31 Minutes, NOW, 1 dose, On 06/07/24 at 0230 0230 (Due) prochlorperazine (Compazine) injection 10 mg (COMPLETED) 10 mg, Intravenous, ONCE, 1 dose, On 06/07/24 at 0300, Max intravenous rate = 5 mg/min 0254 ($ Given - Prov ider: Palak Kimbrough, EMT-P) Continuous Medication Order 06/05/2024 06/06/2024 06/07/2024 dextrose 5 % and lactated ringers infusion at 125 mL/hr, Intravenous, CONTINUOUS, Starting on 06/07/24 at 0400, Until 06/07/24 at 0824 0524 ($ New Bag/Syri nge - Provider: Vangie Trotter RN) PRN Medication Order 06/05/2024 06/06/2024 06/07/2024 [...] RT(R)CT) documented in this encounter Care Teams Industrial Pharmacist Relationship Specialty Start Date End Date Ronel Thornton DO [address] [place], [place] [id number] PCP - General Family Medicine 03/18/23 Ronel Thornton DO [address] [place] [address] PCP - Attributed-[facility] 04/12/23 documented as of this encounter
--- OUTSIDE RECORDS SUMMARY | 2024-06-07 08:31 | XMS_ITS | Encounter Summary ---
Author Organization [facility] Address [address] [place] [address] Care Team Providers Care Signals Collector/Analyst Name Role Phone Mellissa Jiménez MD Primary Care Provider [phone] Ronel Thornton DO Primary Care Provider [phone] Daphnie Gillespie MD Unavailable Juliana Peralta STRATEGIC MARKETING MANAGER Unavailable [phone] Juliana Peralta STRATEGIC MARKETING MANAGER Unavailable [phone] Ronel Thornton DO Unavailable [phone] Kenyatta Taylor RN Unavailable [phone] Tiago Lew Unavailable [phone] Reason for Visit * Reason Onset Date Comments Eating disorder 08/04/2020 Encounter Details Date Type Department Care Team (Late st Contact Info) Description 08/04/2020 Telephone [facility] Prescription Eyeglass Maker [address] [place] [address] Flor Martinez, ASSISTANT MEDIA PLANNER Eating disorder Social History Tobacco Use Types Packs/Day Years Used Date Smoking Tobacco: Never Smokeless Tobacco: Never Alcohol Use Standard Drinks/Week Comments No 0 (1 standard drink = 0.6 oz pur e alcohol) Comments No Sex and Gender Information Value Date Recorded Sex Assigned at Not on file Legal Sex Female 6:25 PM SPORTS 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 Spoke with mother again this a.m, and they have a phone intake assessment with [facility] next SaturdayAugust 08. documented in this encounter Plan of Treatment Upcoming Encounters Date Type Department Care Team (Late st Contact Info) Description 06/08/2024 1:20 PM CDT Office Visit [facility] - Family Medicine [address] [place] [address] Ronel Thornton DO [address] [place] [address] 01/20/2025 8:20 AM SPORTS DEVELOPMENT OFFICER Office Visit [facility] - Family Medicine [address] [place] [phone] [place] [address] [place] [address] documented as of this encounter Visit Diagnoses Not on filedocumented in this encounter Additional Health Concerns Infection Onset Date Last Indicated Resolved Time COVID-19 Under Investigation 08/10/2021 08/10/2021 08/10/2021 2:59 AM CDT documented as of this encounter Care Teams Signals Collector/Analyst Relationship Specialty Start Date End Date Mellissa Jiménez MD [address] [place] [address] [place] [address] PCP - General Family Medicine 04/25/20 03/17/23 Ronel Thornton DO [address] [place] [address] PCP - General Family Medicine 03/18/23 Daphnie Gillespie MD [address] [place] [address] PCP - Attributed-[facility] 02/11/23 04/11/23 Ronel Thornton DO [address] [place] [id number] PCP - Attributed-[facility] 04/12/23 Juliana Peralta MSW Outpatient Radio Maintainer Care Management 04/24/2304/11 Juliana Peralta MSW Outpatient Radio Maintainer Care Management 04/30/2304/12 Kenyatta Taylor, RN [address] [address] Firer KilnFlange Machine Operator 09/02/23 10/04/23 Tiago Lew Care Coordination Specialist Care Management 09/26/23 11/10/23 documented as of this encounter
[2024-06-07 08:32] LABS: Glucose Point of Care 64 mg/dl (65-105)
[2024-06-07 08:37] LABS: Basophils Absolute Auto 0.1 K/mm3 (0.0-0.1); Basophils Percent Auto 0.5 % (0.2-1.2); Eosinophils Absolute Auto 0.6 K/mm3 (0-0.3); Eosinophils Percent Auto 5.7 % (0-4.4); Hematocrit 39.9 % (37.0-47.0); Hemoglobin 13.3 g/dL (12.0-15.0); Immature Granulocyte Absolute 0.03 K/mm3 (0.00-0.031); Immature Granulocyte Percent A 0.3 % (0-0.5); Lymphocytes Absolute Auto 2.97 K/mm3 (0.9-3.2); Lymphocytes Percent Auto 29.3 % (18.3-44.2); Mean Corpuscular HGB Conc 33.3 g/dl (32-36); Mean Corpuscular Hemoglobin 29.8 pg (26-34); Mean Corpuscular Volume 89.5 fl (80-100); Mean Platelet Volume 9.8 fl (7.4-10.4); Monocytes Absolute Auto 1.7 K/mm3 (0.1-0.6); Monocytes Percent Auto 16.3 % (2.6-8.5); Neutrophils Absolute Auto 4.9 K/mm3 (1.3-6.7); Neutrophils Percent Auto 47.9 % (45.5-73.1); Platelet Count Result 375 k/mm3 (150-375); Red Blood Count 4.46 M/mm3 (4.2-5.4); Red Cell Distribution Width 12.8 % (11.5-14.5); White Blood Count 10.2 K/mm3 (4.5-10.0)
[2024-06-07 08:48] LABS: Prothrombin Time 13.8 Seconds (11.1-14.7)
[2024-06-07 08:49] LABS: Partial Thromboplastin Time 26.5 Seconds (22.3-36.8)
--- NOTE | 2024-06-07 08:58 | ED_ITS ---
HPI - General Adult General Chief complaint: Abdominal Pain Stated complaint: abd pain Time Seen by Provider: 06/07/24 08:16 History of Present Illness HPI narrative: 23-year-old female presents emergency department for evaluation for 3 days epigastric abdominal pain with associated nausea and vomiting. Patient reports she has been diagnosed with cannabinoid hyperemesis syndrome previously. Patient did just get discharged from [facility] and states they did labs and imaging had negative workup. Patient presents to our emergency department complaining of worsening symptoms. Patient very anxious in affect. Patient states that she needs to jump up and down or to help with the abdominal pain. Related Data Home Medications ?Medication ?Instructions ?Recorded ?Confirmed ?Last Taken ?Type clonazepam 1 mg tablet 1 tablet PO TID 07/17/21 07/18/21 Unknown History cyproheptadine 4 mg tablet See Rx Instructions .Route .COMPLEX 07/17/21 07/18/21 Unknown History fluoxetine 20 mg capsule 20 cap PO DAILY 07/17/21 07/18/21 Unknown History gabapentin 300 mg capsule 300 cap PO TID 07/17/21 07/18/21 Unknown History hydroxyzine HCl 10 mg tablet 10 tablet PO TID 07/17/21 07/18/21 Unknown History olanzapine 15 mg tablet 15 tablet PO DAILY 07/17/21 07/18/21 Unknown History quetiapine 50 mg tablet 1 tablet PO BID 07/17/21 07/18/21 Unknown History ondansetron HCl 8 mg tablet 8 mg PO Q8H 07/20/21 Unknown History Allergies Allergy/AdvReac Type Severity Reaction Status Date / Time No Known Allergies Allergy Verified 06/07/24 08:15 Review of Systems 2 Review of Systems: All systems reviewed & are unremarkable except as noted in HPI and below PMFSH Past Medical History Medical History Drug withdrawal seizure History of eating disorder Anxiety Depression Family History Family History Grandparent History of alcoholism Depression Mother History of alcoholism Hypertension Depression Social History Social History Smoking status: Never smoker Alcohol intake: never Substance use: former Substance use type: marijuana Living arrangements: with roommate(s) Occupation/Education: unemployed Additional occupation/education comments: not currently working or in school Gender identity (if verbalized by the patient): Female Exam 2 Narrative: APPEARANCE: Cachectic and pale appearing HEAD: normocephalic, atraumatic. EYES: PERRLA/EOMI, conjunctivae clear. NOSE: Normal no drainage EARS:TMS clear with good light reflex. THROAT: Pharynx clear, no exudate. NECK: Supple. No adenopathy, no masses. RESPIRATORY: Airway patent, respirations nonlabored. Clear to auscultation bilaterally, no rales, rhonchi, wheezing. CARDIOVASCULAR: Regular rate and rhythm without murmurs rubs or gallops. ABDOMINAL: Soft, nontender, nondistended, normal bowel sounds MUSCULOSKELETAL: Moves all extremities. Strength/ROM intact, No edema, No calf tenderness. NEURO: Alert. Cranial nerves II through XII intact. Grossly intact SKIN: Warm, dry. Normal Color PSYCHIATRIC: Anxious affect Course Vital Signs Vital signs: Vital Signs Temperature 97.9 F 06/07/24 08:23 Pulse Rate 99 06/07/24 08:23 Respiratory Rate 20 06/07/24 08:23 Blood Pressure 129/79 06/07/24 08:23 Pulse Oximetry 100 06/07/24 08:23 Temperature 97.9 F 06/07/24 08:23 Pulse Rate 92 06/07/24 10:18 Respiratory Rate 18 06/07/24 10:18 Blood Pressure 132/84 06/07/24 10:18 Pulse Oximetry 100 06/07/24 10:18 Medical Decision Making [facility] Narrative Medical decision making narrative: 23-year-old female presents emergency department for evaluation for intermittent nausea vomiting. Patient was evaluated outside hospital in presented emergency department for further evaluation. Patient did feel improved with treatment with Flonase, Protonix and GI cocktail with Haldol for nausea vomiting. The re- evaluation patient states she does feel improved is tolerating p.o.. Patient was afebrile with a leukocytosis of 10.2 and hemoglobin 13.3. Patient did have an elevated lactic acid that was treated with 2 L of lactated Ringer's. Patient's lipase is mildly elevated at 441 and patient had no reproducible abdominal tenderness to palpation. Patient was advised to continue to refrain from THC use and to educate herself on Keppra but hyperemesis syndrome. Patient was provided Zofran and Reglan for nausea control along with omeprazole to help with gastritis. Differential Diagnosis Differential Diagnosis: Colitis, diverticulitis, gastritis, cadaver hyperemesis syndrome, cyclic vomiting Vital Signs Vital Signs: Vital Signs Temperature 97.9 F 06/07/24 08:23 Pulse Rate 99 06/07/24 08:23 Respiratory Rate 20 06/07/24 08:23 Blood Pressure 129/79 06/07/24 08:23 Pulse Oximetry 100 06/07/24 08:23 Temperature 97.9 F 06/07/24 08:23 Pulse Rate 92 06/07/24 10:18 Respiratory Rate 18 06/07/24 10:18 Blood Pressure 132/84 06/07/24 10:18 Pulse Oximetry 100 06/07/24 10:18 Lab Data Lab results reviewed: Yes I reviewed the patient's lab results. 06/07/24 08:30 06/07/24 09:27 Labs: Lab Results 06/07/24 06/07/24 06/07/24 Range/Units 08:29 08:30 09:27 WBC 10.2 H (4.5-10.0) K/mm3 RBC 4.46 (4.2-5.4) M/mm3 Hgb 13.3 (12.0-15.0) g/dL Hct 39.9 (37.0-47.0) % MCV 89.5 (80-100) fl MCH 29.8 (26-34) pg MCHC 33.3 (32-36) g/dl RDW 12.8 (11.5-14.5) % Plt Count 375 (150-375) k/mm3 MPV 9.8 (7.4-10.4) fl Immature Gran % (Auto) 0.3 (0-0.5) % Neut % (Auto) 47.9 (45.5-73.1) % Lymph % (Auto) 29.3 (18.3-44.2) % Grand % (Auto) 16.3 H (2.6-8.5) % Eos % (Auto) 5.7 H (0-4.4) % Baso % (Auto) 0.5 (0.2-1.2) % Lymph # (Auto) 2.97 (0.9-3.2) K/mm3 Grand # (Auto) 1.7 H (0.1-0.6) K/mm3 Eos # (Auto) 0.6 H (0-0.3) K/mm3 Baso # (Auto) 0.1 (0.0-0.1) K/mm3 Abs Immat Gran (auto) 0.03 (0.00-0.031) K/mm3 Absolute Neuts (auto) 4.9 (1.3-6.7) K/mm3 Absolute Nucleated RBC 0.000 (0.0-0.012) K/mm3 Nucleated RBC % 0.0 (0.0-0.2) % PT 13.8 (11.1-14.7) Seconds INR 1.0 APTT 26.5 (22.3-36.8) Seconds Sodium 138 (137-145) mmol/L Potassium 3.7 (3.4-5.0) mmol/L Chloride 103 (98-107) mmol/L Carbon Dioxide 19 L (22-30) mmol/L Anion Gap 16 H (4-12) mmol/L BUN 19 H (7-17) mg/dL Creatinine 0.75 (0.7-1.0) mg/dL Estim Creat Clear Calc 67 ml/min Estimated GFR > 60 (59 - ) Glucose 62 L (65-110) mg/dL POC Capillary Glucose 64 L (65-105) mg/dl Lactic Acid 2.6 H (0.7-2.0) mmol/L Calcium 9.0 (8.4-10.2) mg/dL Total Bilirubin 0.8 (0.2-1.3) mg/dL AST 32 (14-36) U/L ALT 19 (6-35) U/L Alkaline Phosphatase 63 (38-126) U/L Total Protein 7.0 (6.3-8.2) g/dL Albumin 4.4 (3.5-5.1) g/dL Lipase 441 H (23-300) U/L Beta HCG, Quant < 2.39 mIU/ML 06/07/24 Range/Units 09:27 WBC (4.5-10.0) K/mm3 RBC (4.2-5.4) M/mm3 Hgb (12.0-15.0) g/dL Hct (37.0-47.0) % MCV (80-100) fl MCH (26-34) pg MCHC (32-36) g/dl RDW (11.5-14.5) % Plt Count (150-375) k/mm3 MPV (7.4-10.4) fl Immature Gran % (Auto) (0-0.5) % Neut % (Auto) (45.5-73.1) % Lymph % (Auto) (18.3-44.2) % Grand % (Auto) (2.6-8.5) % Eos % (Auto) (0-4.4) % Baso % (Auto) (0.2-1.2) % Lymph # (Auto) (0.9-3.2) K/mm3 Grand # (Auto) (0.1-0.6) K/mm3 Eos # (Auto) (0-0.3) K/mm3 Baso # (Auto) (0.0-0.1) K/mm3 Abs Immat Gran (auto) (0.00-0.031) K/mm3 Absolute Neuts (auto) (1.3-6.7) K/mm3 Absolute Nucleated RBC (0.0-0.012) K/mm3 Nucleated RBC % (0.0-0.2) % PT (11.1-14.7) Seconds INR APTT (22.3-36.8) Seconds Sodium (137-145) mmol/L Potassium (3.4-5.0) mmol/L Chloride (98-107) mmol/L Carbon Dioxide (22-30) mmol/L Anion Gap (4-12) mmol/L BUN (7-17) mg/dL Creatinine (0.7-1.0) mg/dL Estim Creat Clear Calc ml/min Estimated GFR (59 - ) Glucose (65-110) mg/dL POC Capillary Glucose (65-105) mg/dl Lactic Acid (0.7-2.0) mmol/L Calcium (8.4-10.2) mg/dL Total Bilirubin (0.2-1.3) mg/dL AST (14-36) U/L ALT (6-35) U/L Alkaline Phosphatase (38-126) U/L Total Protein (6.3-8.2) g/dL Albumin (3.5-5.1) g/dL Lipase (23-300) U/L Beta HCG, Quant Cancelled mIU/ML Discharge Plan Discharge Clinical Impression: Cyclic vomiting syndrome Patient Disposition: Home Condition: Stable Instructions: Antibiotic Form, Diet for Stomach Ulcers and Gastritis (ED), Abdominal Pain (ED) Additional Instructions: Zofran as needed for nausea control, Reglan as needed for additional nausea control. Omeprazole as directed for the next 14 days. Have close follow-up with GI. Continue to educate yourself on cannabinoid hyperemesis syndrome Patient Language: Korean Prescriptions: New omeprazole 20 mg capsule,delayed release(DR/EC) 20 mg PO DAILY 14 Days Qty: 14 0RF ondansetron 4 mg tablet,disintegrating 4 mg PO Q8H PRN (Reason: nausea and vomiting) Qty: 14 0RF metoclopramide HCl [Reglan] 10 mg tablet 10 mg PO Q6H PRN (Reason: nausea and vomiting) Qty: 14 0RF No Action clonazepam 1 mg tablet 1 tablet PO TID cyproheptadine 4 mg tablet See Rx Instructions .ROUTE .COMPLEX Rx Instructions: as prescribed gabapentin 300 mg capsule 300 cap PO TID hydroxyzine HCl 10 mg tablet 10 tablet PO TID fluoxetine 20 mg capsule 20 cap PO DAILY quetiapine 50 mg tablet 1 tablet PO BID olanzapine 15 mg tablet 15 tablet PO DAILY ondansetron HCl 8 mg tablet 8 mg PO Q8H hydroxyzine pamoate [Vistaril] 25 mg capsule 25 mg PO TID PRN (Reason: anxiety) Qty: 20 0RF Follow-up/Referrals: Tino,Mellissa Ferraro MD [Primary Care Provider] - Ankush De Jesus MD [Physician] -
[2024-06-07] MEDS: FAMOTIDINE 20 MG/2 ML VIAL IV PUSH (09:11)
[2024-06-07] MEDS: LACTATED RINGERS 2,000 ML 999 ML IV CONT (09:11)
[2024-06-07] MEDS: LORazepam INJ (*CRX) 2 MG/ML VIAL 0.5 MG IV PUSH (09:11)
[2024-06-07] MEDS: PANTOPRAZOLE SODIUM IV 40 MG VIAL IV PUSH (09:12)
[2024-06-07] MEDS: HALOPERIDOL LACTATE 5 MG/ML VIAL IM (09:12)
[2024-06-07 09:44] LABS: Alanine Aminotransferase 19 U/L (6-35); Albumin Level 4.4 g/dL (3.5-5.1); Alkaline Phosphatase 63 U/L (38-126); Anion Gap 16 mmol/L (4-12); Aspartate Amino Transferase 32 U/L (14-36); Bilirubin,Total 0.8 mg/dL (0.2-1.3); Blood Urea Nitrogen 19 mg/dL (7-17); Carbon Dioxide 19 mmol/L (22-30); Chloride 103 mmol/L (98-107); Estimated CRCL calculation 67 ml/min; Estimated Glomerular Filt Rate > 60; Glucose 62 mg/dL (65-110); Lipase 441 U/L (23-300); Potassium 3.7 mmol/L (3.4-5.0); Sodium 138 mmol/L (137-145)
[2024-06-07 09:45] LABS: Lactic Acid Reflex 2.6 mmol/L (0.7-2.0)
[2024-06-07 10:01] LABS: Beta HCG Quantitative < 2.39 mIU/ML
[2024-06-07] MEDS: LACTATED RINGERS 1,000 ML 999 ML IV CONT (10:15)
[2024-06-07] MEDS: KETOROLAC 30 MG/ML VIAL (*BKC) IV PUSH (10:16)
[2024-06-07 10:18] VITALS: BP 132/84; PULSE 92; RESP 18; O2SAT 100
[2024-06-07 11:30] LABS: Reflex Lactic Acid Yes or No Add Lactic
== END 2024-06-07 11:08 | disposition home or self-care (01) ==
PROVIDERS: Emergency Provider Emergency Medicine; PCP Family Medicine
DX: R11.15 Cyclical vomiting syndrome unrelated to migraine (principal); F41.9 Anxiety disorder, unspecified; F32.A Depression, unspecified; Z79.899 Other long term (current) drug therapy
CPT/HCPCS: 36415; 80053; 82948; 83605; 83690; 84702; 85025; 85610; 85730; 93005; 96361; 96372; 96374; 96375; 99284; J1630; J1885; J2060; J2470; J7120

== ENCOUNTER 2024-07-18 11:39 | Inpatient (IN) | payer OTHER, SELFPAY ==
--- NOTE | ~2024-07-18 | CT_ITS ---
EXAMINATION: CT abdomen pelvis wo con DATE: 07/18/2024 13:23 INDICATION: Lower abdominal pain. Hematuria. TECHNIQUE: Computed tomography (CT) of the abdomen and pelvis was performed without intravenous contr ast. The dose Jabier The dose-length product was 170.55 mGy-cm. COMPARISON: None FINDINGS: Lung bases are clear. Heart size is normal. No pericardial or pleural effusion. Liver, gallbladder, s pleen, pancreas, bilateral adrenal glands and kidneys are normal. No urolithiasis or hydronephrosis. Bowels including the appendix are normal. 3.6 cm right adnexal cyst. Left adnexa is unremarkable. T-s haped IUD in expected position within the retroverted uterus. Bladder is normal. Very small amount of likely physiologic free fluid in the cul-de-sac. No abscess or free intraperitoneal gas. No patholog ically enlarged abdominal or pelvic lymphadenopathy. Mild thoracolumbar levocurvature. IMPRESSION: 1. 3.6 m right adnexal cyst and very small amount of likely physiologic free fluid in the cul-de-sac. No other acute intra-abdominal/pelvic process. 2. T-shaped IUD in expected position within the retroverted uterus. Reviewed, dictated and finalized at location A. IMPRESSION: 1. 3.6 m right adnexal cyst and very small amount of likely physiologic free fl uid in the cul-de-sac. No other acute intra-abdominal/pelvic process. 2. T-shaped IUD in expected position within the retroverted uterus.
[2024-07-18 11:38] VITALS: BP 140/100; PULSE 80; RESP 16; TEMP 36.6; O2SAT 100
--- NOTE | 2024-07-18 11:51 | ED.GENADULT ---
HPI - General Adult General Chief complaint: Nausea/Vomiting/Diarrhea Stated complaint: N/V History of Present Illness HPI narrative: 23-year-old female with history of cyclic vomiting and anxiety presented to the emergency department for evaluation for nausea vomiting diarrhea that started approximately 10:00 a.m. this morning. Patient presented emergency department by EMS. Patient is anxious upon arrival emergency department complaining of lower abdominal pain. Related Data Home Medications ?Medication ?Instructions ?Recorded ?Confirmed ?Last Taken ?Type olanzapine 15 mg tablet 15 tablet PO DAILY 07/17/21 07/18/24 07/17/24 19:00 History escitalopram oxalate 10 mg tablet 10 mg PO DAILY 07/18/24 07/18/24 07/17/24 19:00 History Allergies Allergy/AdvReac Type Severity Reaction Status Date / Time No Known Allergies Allergy Verified 06/07/24 08:15 Review of Systems Review of Systems: All systems reviewed & are unremarkable except as noted in HPI and below PMFSH Past Medical History Medical History (Updated 07/18/24 @ 19:45 by Suzanne Tatum, ELIJAH) Drug withdrawal seizure History of eating disorder Anxiety Depression Family History Family History Grandparent History of alcoholism Depression Mother History of alcoholism Hypertension Depression Social History Social History Smoking status: Never smoker Alcohol intake: never Substance use: current Substance use type: marijuana Last use: 07/18/2024 Do You Feel Safe in your Home?: Yes Lack of Transportation: No Lack of Food: Never True Current Housing: I Have Housing Concerned About Future Housing: No Difficulty Paying Gas/Electric Bills: No Difficulty Paying for Meds: No Currently Unemployed: No Education: High School Diploma/GED Difficulty w/ Childcare or Family Care: No Living arrangements: with roommate(s) Occupation/Education: unemployed Additional occupation/education comments: not currently working or in school Gender identity (if verbalized by the patient): Female Spiritual care concerns: No Exam Narrative: APPEARANCE: Uncomfortable appearing HEAD: normocephalic, atraumatic. EYES: PERRLA/EOMI, conjunctivae clear. NOSE: Normal no drainage EARS:TMS clear with good light reflex. THROAT: Pharynx clear, no exudate. NECK: Supple. No adenopathy, no masses. RESPIRATORY: Airway patent, respirations nonlabored. Clear to auscultation bilaterally, no rales, rhonchi, wheezing. CARDIOVASCULAR: Regular rate and rhythm without murmurs rubs or gallops. ABDOMINAL: Lower abdominal tenderness MUSCULOSKELETAL: Moves all extremities. Strength/ROM intact, No edema, No calf tenderness. NEURO: Alert. Cranial nerves II through XII intact. Good gait. Good coordination SKIN: Warm, dry. Normal Color PSYCHIATRIC: Anxious affect Course Vital Signs Vital signs: Vital Signs Temperature 98 F 07/18/24 11:38 Pulse Rate 80 07/18/24 11:38 Respiratory Rate 16 07/18/24 11:38 Blood Pressure 140/100 H 07/18/24 11:38 Pulse Oximetry 100 07/18/24 11:38 Oxygen Delivery Room Air 07/18/24 11:38 Temperature 97.3 F L 07/18/24 17:27 Pulse Rate 108 H 07/18/24 17:27 Respiratory Rate 20 07/18/24 17:27 Blood Pressure 134/88 07/18/24 17:27 Pulse Oximetry 98 07/18/24 17:27 Oxygen Delivery Room Air 07/18/24 11:38 Medical Decision Making [facility] Narrative Medical decision making narrative: 23-year-old female presents emergency department for evaluation nausea vomiting abdominal pain. Patient is currently afebrile but does have a leukocytosis of 17 5 and a hemoglobin of 12.4. Patient did have a significant elevated lactic acid that did improve with 2 L of fluids. Urine was concerning for urinary tract infection. CT scan did show nonspecific physiologic fluid with no acute abnormalities. Patient is still having uncontrolled nausea and is ill-appearing. Patient will be admitted to the hospitalist for concern for pyelonephritis. Differential Diagnosis Differential Diagnosis: Cyclic vomiting, cannabinoid hyperemesis syndrome, dehydration, UTI, pyelonephritis, appendicitis, ovarian torsion, colitis, diverticulitis Vital Signs Vital Signs: Vital Signs Temperature 98 F 07/18/24 11:38 Pulse Rate 80 07/18/24 11:38 Respiratory Rate 16 07/18/24 11:38 Blood Pressure 140/100 H 07/18/24 11:38 Pulse Oximetry 100 07/18/24 11:38 Oxygen Delivery Room Air 07/18/24 11:38 Temperature 97.3 F L 07/18/24 17:27 Pulse Rate 108 H 07/18/24 17:27 Respiratory Rate 20 07/18/24 17:27 Blood Pressure 134/88 07/18/24 17:27 Pulse Oximetry 98 07/18/24 17:27 Oxygen Delivery Room Air 07/18/24 11:38 Lab Data Lab results reviewed: Yes I reviewed the patient's lab results. 07/18/24 11:57 07/18/24 11:57 Labs: Lab Results 07/18/24 07/18/24 07/18/24 Range/Units 11:57 12:00 12:22 WBC 17.5 H (4.5-10.0) K/mm3 RBC 4.07 L (4.2-5.4) M/mm3 Hgb 12.4 (12.0-15.0) g/dL Hct 37.1 (37.0-47.0) % MCV 91.2 (80-100) fl MCH 30.5 (26-34) pg MCHC 33.4 (32-36) g/dl RDW 12.5 (11.5-14.5) % Plt Count 298 (150-375) k/mm3 MPV 10.4 (7.4-10.4) fl Immature Gran % (Auto) 0.3 (0-0.5) % Neut % (Auto) 70.5 (45.5-73.1) % Lymph % (Auto) 19.9 (18.3-44.2) % Rains % (Auto) 8.9 H (2.6-8.5) % Eos % (Auto) 0.0 (0-4.4) % Baso % (Auto) 0.4 (0.2-1.2) % Lymph # (Auto) 3.47 H (0.9-3.2) K/mm3 Rains # (Auto) 1.6 H (0.1-0.6) K/mm3 Eos # (Auto) 0.0 (0-0.3) K/mm3 Baso # (Auto) 0.1 (0.0-0.1) K/mm3 Abs Immat Gran (auto) 0.06 H (0.00-0.031) K/mm3 Absolute Neuts (auto) 12.3 H (1.3-6.7) K/mm3 Absolute Nucleated RBC 0.000 (0.0-0.012) K/mm3 Nucleated RBC % 0.0 (0.0-0.2) % Sodium 138 (137-145) mmol/L Potassium 3.5 (3.4-5.0) mmol/L Chloride 105 (98-107) mmol/L Carbon Dioxide 19 L (22-30) mmol/L Anion Gap 14 H (4-12) mmol/L BUN 12 D (7-17) mg/dL Creatinine 0.93 (0.7-1.0) mg/dL Estim Creat Clear Calc Not Reportable Estimated GFR > 60 (59 - ) Glucose 136 H (65-110) mg/dL Lactic Acid 5.0 H* (0.7-2.0) mmol/L Calcium 9.7 (8.4-10.2) mg/dL Total Bilirubin 0.6 (0.2-1.3) mg/dL AST 38 H (14-36) U/L ALT 24 (6-35) U/L Alkaline Phosphatase 72 (38-126) U/L Total Protein 7.9 (6.3-8.2) g/dL Albumin 4.9 (3.5-5.1) g/dL Lipase 155 (23-300) U/L Urine Color Yellow (Yellow) Urine Appearance Cloudy H (Clear) Urine pH 6.0 (5.0-9.0) Ur Specific [place] 1.022 (1.001-1.035) Urine Protein 1+ H (Negative) mg/dL Urine Glucose (UA) Negative (Negative) mg/dL Urine Ketones 3+ H (Negative) mg/dL Ur Blood (Man) 3+ H (Negative) Urine Nitrate Negative (Negative) Urine Bilirubin Negative (Negative) Urine Urobilinogen 0.2 (<2.0) mg/dL Leukocyte Esterase Rfl Trace H (Negative) CHASIDY/UL Urine RBC >100 H (0-2) /hpf Urine WBC 11-20 H (0-3) /hpf Ur Squamous Epith Cells Moderate (Few) /hpf Urine Bacteria 1+ H /hpf Urine Casts 0-2 POC Urine HCG, Qual Negative (Negative) 07/18/24 Range/Units 14:16 WBC (4.5-10.0) K/mm3 RBC (4.2-5.4) M/mm3 Hgb (12.0-15.0) g/dL Hct (37.0-47.0) % MCV (80-100) fl MCH (26-34) pg MCHC (32-36) g/dl RDW (11.5-14.5) % Plt Count (150-375) k/mm3 MPV (7.4-10.4) fl Immature Gran % (Auto) (0-0.5) % Neut % (Auto) (45.5-73.1) % Lymph % (Auto) (18.3-44.2) % Rains % (Auto) (2.6-8.5) % Eos % (Auto) (0-4.4) % Baso % (Auto) (0.2-1.2) % Lymph # (Auto) (0.9-3.2) K/mm3 Rains # (Auto) (0.1-0.6) K/mm3 Eos # (Auto) (0-0.3) K/mm3 Baso # (Auto) (0.0-0.1) K/mm3 Abs Immat Gran (auto) (0.00-0.031) K/mm3 Absolute Neuts (auto) (1.3-6.7) K/mm3 Absolute Nucleated RBC (0.0-0.012) K/mm3 Nucleated RBC % (0.0-0.2) % Sodium (137-145) mmol/L Potassium (3.4-5.0) mmol/L Chloride (98-107) mmol/L Carbon Dioxide (22-30) mmol/L Anion Gap (4-12) mmol/L BUN (7-17) mg/dL Creatinine (0.7-1.0) mg/dL Estim Creat Clear Calc Estimated GFR (59 - ) Glucose (65-110) mg/dL Lactic Acid 2.2 H (0.7-2.0) mmol/L Calcium (8.4-10.2) mg/dL Total Bilirubin (0.2-1.3) mg/dL AST (14-36) U/L ALT (6-35) U/L Alkaline Phosphatase (38-126) U/L Total Protein (6.3-8.2) g/dL Albumin (3.5-5.1) g/dL Lipase (23-300) U/L Urine Color (Yellow) Urine Appearance (Clear) Urine pH (5.0-9.0) Ur Specific [place] (1.001-1.035) Urine Protein (Negative) mg/dL Urine Glucose (UA) (Negative) mg/dL Urine Ketones (Negative) mg/dL Ur Blood (Man) (Negative) Urine Nitrate (Negative) Urine Bilirubin (Negative) Urine Urobilinogen (<2.0) mg/dL Leukocyte Esterase Rfl (Negative) CHASIDY/UL Urine RBC (0-2) /hpf Urine WBC (0-3) /hpf Ur Squamous Epith Cells (Few) /hpf Urine Bacteria /hpf Urine Casts POC Urine HCG, Qual (Negative) Imaging Data Radiologist's impression: Impressions Abdomen/Pelvis CT 07/18/24 13:44 IMPRESSION: 1. 3.6 m right adnexal cyst and very small amount of likely physiologic free fluid in the cul-de-sac. No other acute intra-abdominal/pelvic process. 2. T-shaped IUD in expected position within the retroverted uterus. Discharge Plan Discharge Clinical Impression: UTI (urinary tract infection), Cyclical vomiting, Pyelonephritis Patient Disposition: Still a Patient Condition: Serious
[2024-07-18] MEDS: ONDANSETRON INJ 4 MG/2 ML VIAL IV PUSH (11:55)
[2024-07-18] MEDS: SODIUM CHLORIDE 0.9% IV 2,000 ML 999 ML IV CONT (11:55)
[2024-07-18] MEDS: HALOPERIDOL LACTATE 5 MG/ML VIAL IM (11:58)
[2024-07-18 12:07] LABS: Basophils Absolute Auto 0.1 K/mm3 (0.0-0.1); Basophils Percent Auto 0.4 % (0.2-1.2); Hematocrit 37.1 % (37.0-47.0); Hemoglobin 12.4 g/dL (12.0-15.0); Immature Granulocyte Absolute 0.06 K/mm3 (0.00-0.031); Immature Granulocyte Percent A 0.3 % (0-0.5); Lymphocytes Absolute Auto 3.47 K/mm3 (0.9-3.2); Lymphocytes Percent Auto 19.9 % (18.3-44.2); Mean Corpuscular HGB Conc 33.4 g/dl (32-36); Mean Corpuscular Hemoglobin 30.5 pg (26-34); Mean Corpuscular Volume 91.2 fl (80-100); Mean Platelet Volume 10.4 fl (7.4-10.4); Monocytes Absolute Auto 1.6 K/mm3 (0.1-0.6); Monocytes Percent Auto 8.9 % (2.6-8.5); Neutrophils Absolute Auto 12.3 K/mm3 (1.3-6.7); Neutrophils Percent Auto 70.5 % (45.5-73.1); Platelet Count Result 298 k/mm3 (150-375); Red Blood Count 4.07 M/mm3 (4.2-5.4); Red Cell Distribution Width 12.5 % (11.5-14.5); White Blood Count 17.5 K/mm3 (4.5-10.0)
[2024-07-18 12:18] LABS: Alanine Aminotransferase 24 U/L (6-35); Albumin Level 4.9 g/dL (3.5-5.1); Alkaline Phosphatase 72 U/L (38-126); Anion Gap 14 mmol/L (4-12); Aspartate Amino Transferase 38 U/L (14-36); Bilirubin,Total 0.6 mg/dL (0.2-1.3); Blood Urea Nitrogen 12 mg/dL (7-17); Calcium 9.7 mg/dL (8.4-10.2); Carbon Dioxide 19 mmol/L (22-30); Chloride 105 mmol/L (98-107); Estimated Glomerular Filt Rate > 60; Glucose 136 mg/dL (65-110); Lipase 155 U/L (23-300); Potassium 3.5 mmol/L (3.4-5.0); Sodium 138 mmol/L (137-145); Total Protein 7.9 g/dL (6.3-8.2)
[2024-07-18 12:37] LABS: Add Urine Microscopic? YES; Appearance Urine Cloudy (Clear); Bacteria Urine 1+ /hpf; Bilirubin Urine Negative (Negative); Blood Urine 3+ (Negative); Color Urine Yellow (Yellow); Glucose Urine UA Negative (Negative); Ketones Urine 3+ mg/dL (Negative); Leukocyte Esterase Ur Trace LEU/UL (Negative); Nitrate Urine Negative (Negative); Non Pathogenic Casts 0-2; Protein Urine 1+ mg/dL (Negative); RBC Urine >100 /hpf (0-2); Specific Grav Ur 1.022 (1.001-1.035); Squamous Epithelial Cell Urine Moderate /hpf (Few); Urobilinogen Urine 0.2 mg/dL (<2.0)
[2024-07-18 13:00] VITALS: BP 138/98; PULSE 96; RESP 16; O2SAT 97
[2024-07-18 13:05] LABS: BEDSIDEPREGUCG Negative (Negative)
[2024-07-18] MEDS: LORazepam INJ (*CRX) 2 MG/ML VIAL 1 MG IV PUSH (13:05)
--- OUTSIDE RECORDS SUMMARY | 2024-07-18 13:29 | XMS_ITS | Encounter Summary ---
Author Organization [facility] Address [address] [address] Care Team Providers Care Swimming Pool Maintenance Name Role Phone Mellissa Jiménez MD Primary Care Provider [phone] Ronel Thornton DO Primary Care Provider [phone] Daphnie Gillespie MD Unavailable Juliana Peralta TECHNICAL SERVICES REP Unavailable [phone] Juliana Peralta TECHNICAL SERVICES REP Unavailable [phone] Ronel Thornton DO Unavailable Kenyatta Taylor RN Unavailable [phone] Tiago Lew Unavailable [phone] Reason for Visit * Reason Onset Date Comments Appointment 10/05/2020 Contraceptive management 10/05/2020 Encounter Details Date Type Department Care Team (Late st Contact Info) Description 10/05/2020 Telephone [facility] [address] [place], [place] [id number] [place] [address] [place] [address] Appointment; Contraceptive management Social History Tobacco Use Types Packs/Day Years Used Date Smoking Tobacco: Never Smokeless Tobacco: Never Alcohol Use Standard Drinks/Week Comments No 0 (1 standard drink = 0.6 oz pur e alcohol) Comments No Sex and Gender Information Value Date Recorded Sex Assigned at Not on file Legal Sex Female 6:25 PM RECORD SYSTEMS ANALYST Gender Identity Not on file Sexual Orientation [...] the office yet to get scheduled. CB# [phone] documented in this encounter Plan of Treatment Upcoming Encounters Date Type Department Care Team (Late st Contact Info) Description 07/22/2024 9:30 AM CDT Office Visit [address] [address] Mike Butler PA-C [address] [place] [id number] 01/20/2025 8:20 AM RECORD SYSTEMS ANALYST Office Visit [address] [address] Ronel Thornton DO [address] [place] [address] documented as of this encounter Visit Diagnoses Not on filedocumented in this encounter Additional Health Concerns Infection Onset Date Last Indicated Resolved Time COVID-19 Under Investigation 08/10/2021 08/10/2021 08/10/2021 2:59 AM CDT documented as of this encounter Care Teams Swimming Pool Maintenance Relationship Specialty Start Date End Date Mellissa Jiménez MD [address] [place] [address] [place] [address] PCP - General Family Medicine 04/25/20 03/17/23 Ronel Thornton DO [address] [place] [address] PCP - General Family Medicine 03/18/23 Daphnie Gillespie MD [address] [place] [address] PCP - Attributed-[facility] 02/11/23 04/11/23 Ronel Thornton DO [address] [place] [address] PCP - Attributed-[facility] 04/12/23 Juliana Peralta MSW [facility] Care Management 04/24/2304/11 Juliana Peralta MSW [facility] Care Management 04/30/2304/12 Kenyatta Taylor, RN [address] [address] Tow MateBonding Machine Tender 09/02/23 10/04/23 Tiago Lew Care Coordination Specialist Care Management 09/26/23 11/10/23 documented as of this encounter
--- OUTSIDE RECORDS SUMMARY | 2024-07-18 13:29 | XMS_ITS | Encounter Summary ---
Author Organization [facility] Address [address] [facility] [address] Care Team Providers Care Software Solutions Architect Name Role Phone Mellissa Jiménez MD Primary Care Provider [phone] Ronel Thornton DO Primary Care Provider [phone] Daphnie Gillespie MD Unavailable Juliana Peralta FILM EDITOR Unavailable [phone] Juliana Peralta FILM EDITOR Unavailable [phone] Ronel Thornton DO Unavailable [phone] Kenyatta Taylor RN Unavailable [phone] Tiago Lew Unavailable [phone] Reason for Visit * Reason Onset Date Comments Eating disorder 08/04/2020 Encounter Details Date Type Department Care Team (Late st Contact Info) Description 08/04/2020 Telephone [facility] Concierge Manager [address] [place] [address] Flor Martinez, TECHNICAL REPORT WRITER Eating disorder Social History Tobacco Use Types Packs/Day Years Used Date Smoking Tobacco: Never Smokeless Tobacco: Never Alcohol Use Standard Drinks/Week Comments No 0 (1 standard drink = 0.6 oz pur e alcohol) Comments No Sex and Gender Information Value Date Recorded Sex Assigned at Not on file Legal Sex Female 6:25 PM FIELD MAP EDITOR Gender Identity Not on file Sexual Orientation [...] phone calls with Kenyatta's mother Esperanza and [facility] this week regarding Kenyatta's relapse, and mother's belief that she needs to be admitted to [facility]. Spoke with mother again this a.m, and they have a phone intake assessment with [facility] next SaturdayAugust 08. documented in this encounter Plan of Treatment Upcoming Encounters Date Type Department Care Team (Late st Contact Info) Description 07/22/2024 9:30 AM CDT Office Visit [facility] - Family Medicine [address] [place] [address] Mike Butler PA-C [address] [place] [phone] 01/20/2025 8:20 AM FIELD MAP EDITOR Office Visit [facility] - Family Medicine [address] [place] [address] Ronel Thornton DO [address] [place] [address] documented as of this encounter Visit Diagnoses Not on filedocumented in this encounter Additional Health Concerns Infection Onset Date Last Indicated Resolved Time COVID-19 Under Investigation 08/10/2021 08/10/2021 08/10/2021 2:59 AM CDT documented as of this encounter Care Teams Software Solutions Architect Relationship Specialty Start Date End Date Mellissa Jiménez MD [address] [place] [address] [place] [phone] PCP - General Family Medicine 04/25/20 03/17/23 Ronel Thornton DO [address] [place] [address] PCP - General Family Medicine 03/18/23 Daphnie Gillespie MD [address] [place] [address] PCP - Attributed-[facility] 02/11/23 04/11/23 Ronel Thornton DO [address] [place] [id number] PCP - Attributed-[facility] 04/12/23 Juliana Peralta MSW Outpatient Fermenter Care Management 04/24/2304/11 Juliana Peralta MSW Outpatient Fermenter Care Management 04/30/2304/12 Kenyatta Taylor, RN [address] [address] Boat HopGlass Cut Off Supervisor 09/02/23 10/04/23 Tiago Lwe Care Coordination Specialist Care Management 09/26/23 11/10/23 documented as of this encounter
--- OUTSIDE RECORDS SUMMARY | 2024-07-18 13:29 | XMS_ITS | Encounter Summary ---
Author Organization [facility] Address [address] [facility] [place] [address] Care Team Providers Care Batch Weigher Name Role Phone Mellissa Jiménez MD Primary Care Provider [phone] Ronel Thornton DO Primary Care Provider [phone] Daphnie Gillespie MD Unavailable Juliana Peralta REFRACTORY FURNACE DESIGNER Unavailable [phone] Juliana Peralta Unavailable [phone] Ronel Thornton DO Unavailable [phone] Kenyatta Taylor RN Unavailable [phone] Tiago Lew Unavailable [phone] Encounter Details Date Type Department Care Team (Late st Contact Info) Description 07/28/2020 Telephone [facility] Pediatrics - Pulmonology [address] [place] [id number] Bessie Erwin Social History Tobacco Use Types Packs/Day Years Used Date Smoking Tobacco: Never Smokeless Tobacco: Never Alcohol Use Standard Drinks/Week Comments No 0 (1 standard drink = 0.6 oz pur e alcohol) Comments No Sex and Gender Information Value Date Recorded Sex Assigned at Not on file Legal Sex Female 6:25 PM SOFTWARE MANAGER Gender Identity Not on file Sexual [...] PM CDT Mom called regarding not eating [phone] Marla Gillespie documented in this encounter Plan of Treatment Upcoming Encounters Date Type Department Care Team (Late st Contact Info) Description 07/22/2024 9:30 AM CDT Office Visit [address] [address] Mike Butler PA-C [address] [place] [phone] 01/20/2025 8:20 AM SOFTWARE MANAGER Office Visit [address] [address] Ronel Thornton DO [address] [place] [address] documented as of this encounter Visit Diagnoses Not on filedocumented in this encounter Additional Health Concerns Infection Onset Date Last Indicated Resolved Time COVID-19 Under Investigation 08/10/2021 08/10/2021 08/10/2021 2:59 AM CDT documented as of this encounter Care Teams Batch Weigher Relationship Specialty Start Date End Date Mellissa Jiménez MD [address] [place] [address] [place] [address] PCP - General Family Medicine 04/25/20 03/17/23 Ronel Thornton DO [address] [place] [address] PCP - General Family Medicine 03/18/23 Daphnie Gillespie MD [address] [place] [address] PCP - Attributed-[facility] 02/11/23 04/11/23 Ronel Thornton DO [address] [place] [address] PCP - Attributed-[facility] 04/12/23 Juliana Peralta MSW Outpatient Clinical Study Manager Care Management 04/24/2304/11 Juliana Peralta MSW Outpatient Clinical Study Manager Care Management 04/30/2304/12 Kenyatta Taylor RN [address] [address] Clinical Trial CoordinatorTrust Accounts Supervisor 09/02/23 10/04/23 Tiago Lew Care Coordination Specialist Care Management 09/26/23 11/10/23 documented as of this encounter
--- OUTSIDE RECORDS SUMMARY | 2024-07-18 13:29 | XMS_ITS | Clinical Summary ---
Author Organization [facility] [employer] Address [address] [place] [address] Care Team Providers Care Senior Cobol Developer Name Role Phone Ronel Thornton DO Primary Care Provider [phone] Ronel Thornton DO Unavailable [phone] Source Comments [facility] [employer],non-owned Affiliates and Associated Physician Practices is amultiple site organization consisting of ambulatory clinics and hospital sitesin [place], [place], [place] and [place]. This disclosure is being madepursuant to the Care Everywhere program and may not contain all information available regarding this patient. Last updated 17.[facility] [employer] Allergies No known active allergies Medications * This document contains information received from the source organization and may not represent a complete record from that organization. * Be aware that medications may not be up to date on this document. Alwaysverify current medications with the patient. dicyclomine (Bentyl) 10 MG capsule Take 1 (one) capsule by mouth 4 times daily 120 capsule 025 Active Additional Information Patient not taking.Reason: Other (does not have on hand), Reported on 06/09/2024 prochlorperazi ne (Compazine) injection Inject 20 mL into muscle every 8 hours as needed for Nausea/Vomiting 200 mL 025 Active Additional Information Patient not taking.Reason: Cost, Reported on 06/09/2024 acetaminophen (Tylenol) 500 MG tablet Take 2 (two) tablets by mouth once daily as needed for Fever or Pain Maximum allowable Acetaminophen amount = 4 Grams (4000 mg) / 24 hours. Active prochlorperazi ne (Compazine) 25 MG suppository Insert 1 (one) suppository into the rectum every 12 hours as needed for Nausea/Vomiting 2 suppository Active prochlorperazi ne (Compazine) 25 MG suppository Insert 1 (one) suppository into the rectum every 12 hours as needed for Nausea/Vomiting 10 suppository Active propranolol (Inderal) 10 MG tablet Take 1 (one) tablet by mouth 2 times daily as needed for Hypertension 60 tablet 1 Active famotidine (Pepcid) 20 MG tablet Take 1 (one) tablet by mouth every 12 hours 30 tablet Active hydrOXYzine pamoate (Vistaril) 25 MG capsule Take 1 (one) capsule by mouth once daily as needed for Anxiety (awakes with panic attacks throughout night) 90 capsule 1 Active prochlorperazi ne (Compazine) 5 MG tablet Take 1 (one) tablet by mouth every 8 hours as needed for Nausea/Vomiting 20 tablet Active omeprazole (PriLOSEC) 20 MG capsule Take 1 (one) capsule by mouth daily before breakfast 90 capsule 1 Active scopolamine (Transderm-Sco p) 1 MG patch Apply 1 (one) patch to skin every 72 hours as needed for Other 4 patch Active metoclopramide (Reglan) 10 MG tablet Take 1 (one) tablet by mouth every 6 hours as needed for Nausea/Vomiting 90 tablet 1 Active escitalopram (Lexapro) 10 MG tablet Take 1 (one) tablet by mouth once daily 30 tablet 2 Active OLANZapine (ZyPREXA) 5 MG tablet Take 1 (one) tablet by mouth at bedtime 90 tablet Active OLANZapine (ZyPREXA) 2.5 MG tablet Take 1 (one) tablet by mouth once daily as needed (anxiety, panic) 30 tablet 1 Active hydrOXYzine HCl (Atarax) 50 MG tabletIndicati ons:Anxiety Take 1 (one) tablet by mouth every 6 hours as needed Reasons: Feeling Anxious 40 tablet 024 2023 Disconti nued(No Pharm No AVS) melatonin 3 MG tabletIndicati ons:Insomnia Take 1 (one) tablet by mouth nightly as needed for Insomnia Reasons: Trouble Sleeping 30 tablet 024 2023 Disconti nued(No Pharm No AVS) pantoprazole EC (Protonix) 40 MG tabletIndicati ons:Gastroesop hageal Reflux Disease Take 1 (one) tablet by mouth once daily Reasons: Gastroesophageal Reflux Disease 30 tablet 024 2023 Disconti nued(No Pharm No AVS) mirtazapine (Remeron) 15 MG tabletIndicati ons:Major Depressive Disorder Take 1 (one) tablet by mouth at bedtime Reasons: Major Depressive Disorder 30 tablet 024 2023 Disconti nued(No Pharm No AVS) gabapentin (Neurontin) 400 MG capsuleIndicat ions:Mood Disorder Take 1 (one) capsule by mouth 2 times daily Reasons: Mood Disorder 60 capsule 024 2023 Disconti nued(No Pharm No AVS) lamoTRIgine XR 24hr (LaMICtal XR) 250 MG tablet Take 1 (one) tablet by mouth once daily 90 tablet 2 024 2023 Disconti nued(No Pharm No AVS) OLANZapine (ZyPREXA) 5 MG tablet Take 1 (one) tablet by mouth at bedtime 90 tablet 025 2024 Disconti nued(Reo rder) escitalopram (Lexapro) 10 MG tablet Take 1 (one) tablet by mouth once daily 30 tablet 2 025 2024 Disconti nued(Reo rder) Active Problems Problem Noted Date Diagnosed Date [...] 01/18/2020 Assessment & Plan (01/08/2021 3:06 PM COMMERCIAL ESCROW ASSISTANT): Assessment: Major depressive disorder, generalized anxiety disorder and substance abuse disorder. Plan: - klonopin and neurontin are all habit forming, concerns they are addictive, plan to discuss continuous churn buttermaker goal of weaning as outpatient - must stop all alcohol and MJ - Increased Prozac to 40 - Increased zyprexa to 15 - Melatonin 6mg QHS for sleep - avoid narcotics - taper off zyprexa as outpatient per psychiatry recs Assessment & Plan (01/07/2021 4:50 PM COMMERCIAL ESCROW ASSISTANT): Assessment: Major depressive disorder, generalized anxiety disorder [...] recs Assessment & Plan (01/06/2021 5:55 PM COMMERCIAL ESCROW ASSISTANT): Assessment: Major depressive disorder, generalized anxiety disorder [...] slowly. Assessment & Plan (04/07/2020 6:45 PM COMMERCIAL ESCROW ASSISTANT): Assessment: Hx of major depressive disorder and generalized anxiety disorder. Pt has been seen by psychiatry and psychology, now improved since starting/optimizing zyprexa QHS, clonazepam TID, and prozac QD. Plan: - Prozac 30 mg QD (dose of 30 mg started on 03/09/20, Prozac initially began 02/07) - Zyprexa 5 mg QHS - Klonopin 0.5mg TID Assessment & Plan (04/06/2020 3:54 PM COMMERCIAL ESCROW ASSISTANT): Assessment: Hx of major depressive disorder and [...] TID Assessment & Plan (04/05/2020 10:49 AM COMMERCIAL ESCROW ASSISTANT): Assessment: Hx of major depressive disorder and [...] TID Assessment & Plan (04/04/2020 10:23 AM COMMERCIAL ESCROW ASSISTANT): Assessment: Hx of major depressive disorder and [...] TID Assessment & Plan (04/03/2020 6:30 PM COMMERCIAL ESCROW ASSISTANT): Assessment: Hx of major depressive disorder and [...] TID Assessment & Plan (04/01/2020 11:15 AM COMMERCIAL ESCROW ASSISTANT): Assessment: Hx of major depressive disorder and [...] dose) Assessment & Plan (03/31/2020 10:07 AM COMMERCIAL ESCROW ASSISTANT): Assessment: Hx of major depressive disorder and [...] dose) Assessment & Plan (03/30/2020 2:24 PM COMMERCIAL ESCROW ASSISTANT): Assessment: Hx of major depressive disorder and generalized anxiety disorder. Pt seen by psychiatry on admission and was started elavil, but continued to have anxiety. Elavil was discontinued due to persistent tachycardia and hypotension. [facility], she was started on [...] dose) Assessment & Plan (03/29/2020 6:50 AM COMMERCIAL ESCROW ASSISTANT): Assessment: Hx of major depressive disorder and [...] dose) Assessment & Plan (03/27/2020 10:30 AM COMMERCIAL ESCROW ASSISTANT): Assessment: Hx of major depressive disorder and [...] dose) Assessment & Plan (03/26/2020 11:15 AM COMMERCIAL ESCROW ASSISTANT): Assessment: Hx of major depressive disorder and [...] dose) Assessment & Plan (03/25/2020 8:58 AM COMMERCIAL ESCROW ASSISTANT): Assessment: Hx of major depressive disorder and [...] dose) Assessment & Plan (03/24/2020 6:44 AM COMMERCIAL ESCROW ASSISTANT): Assessment: Hx of major depressive disorder and [...] dose) Assessment & Plan (03/23/2020 12:19 PM COMMERCIAL ESCROW ASSISTANT): Assessment: Hx of major depressive disorder and [...] dose) Assessment & Plan (03/22/2020 10:47 AM COMMERCIAL ESCROW ASSISTANT): Assessment: Hx of major depressive disorder and [...] recommendations) Assessment & Plan (03/21/2020 3:11 PM COMMERCIAL ESCROW ASSISTANT): Assessment: Hx of major depressive disorder and [...] mg. Assessment & Plan (03/20/2020 10:31 AM COMMERCIAL ESCROW ASSISTANT): Assessment: Hx of major depressive disorder and [...] 03/21. Assessment & Plan (03/19/2020 10:38 AM COMMERCIAL ESCROW ASSISTANT): Assessment: Hx of major depressive disorder and [...] withdrawal Assessment & Plan (03/18/2020 12:58 PM COMMERCIAL ESCROW ASSISTANT): Assessment: Hx of major depressive disorder and [...] anxiety Assessment & Plan (03/17/2020 10:33 AM COMMERCIAL ESCROW ASSISTANT): Assessment: Hx of major depressive disorder and [...] appreciated Assessment & Plan (03/16/2020 2:24 PM COMMERCIAL ESCROW ASSISTANT): Assessment: Hx of major depressive disorder and [...] recommendations Assessment & Plan (03/15/2020 11:11 AM COMMERCIAL ESCROW ASSISTANT): Assessment: Hx of major depressive disorder and [...] anxiety Assessment & Plan (03/14/2020 6:28 AM COMMERCIAL ESCROW ASSISTANT): Assessment: Hx of major depressive disorder and [...] anxiety Assessment & Plan (03/13/2020 6:28 AM COMMERCIAL ESCROW ASSISTANT): Assessment: Hx of major depressive disorder and [...] anxiety Assessment & Plan (03/12/2020 11:35 AM COMMERCIAL ESCROW ASSISTANT): Assessment: Hx of major depressive disorder and [...] anxiety Assessment & Plan (03/11/2020 12:43 PM COMMERCIAL ESCROW ASSISTANT): Assessment: Hx of major depressive disorder and [...] anxiety Assessment & Plan (03/10/2020 6:11 AM COMMERCIAL ESCROW ASSISTANT): Assessment: Hx of major depressive disorder and [...] anxiety Assessment & Plan (03/09/2020 6:24 AM COMMERCIAL ESCROW ASSISTANT): Assessment: Hx of major depressive disorder and [...] anxiety Assessment & Plan (03/08/2020 10:51 AM COMMERCIAL ESCROW ASSISTANT): Assessment: Hx of major depressive disorder and [...] anxiety Assessment & Plan (03/07/2020 9:15 AM COMMERCIAL ESCROW ASSISTANT): Assessment: Hx of major depressive disorder and [...] recommendations -Develop daily schedule with assistance of children's service worker-[place] Assessment & Plan (03/06/2020 10:09 AM COMMERCIAL ESCROW ASSISTANT): Assessment: Hx of major depressive disorder and [...] anxiety Assessment & Plan (03/05/2020 9:56 AM COMMERCIAL ESCROW ASSISTANT): Assessment: Hx of major depressive disorder and [...] anxiety Assessment & Plan (03/04/2020 12:58 PM COMMERCIAL ESCROW ASSISTANT): Assessment: Hx of major depressive disorder and [...] anxiety Assessment & Plan (03/03/2020 3:16 PM COMMERCIAL ESCROW ASSISTANT): Assessment: Hx of major depressive disorder and [...] anxiety Assessment & Plan (03/01/2020 12:04 PM COMMERCIAL ESCROW ASSISTANT): Assessment: Hx of major depressive disorder and [...] anxiety Assessment & Plan (02/29/2020 12:53 PM COMMERCIAL ESCROW ASSISTANT): Assessment: Hx of major depressive disorder and [...] anxiety Assessment & Plan (02/28/2020 9:22 AM COMMERCIAL ESCROW ASSISTANT): Assessment: Hx of major depressive disorder and [...] anxiety Assessment & Plan (02/27/2020 10:27 AM COMMERCIAL ESCROW ASSISTANT): Assessment: Hx of major depressive disorder and [...] negative Assessment & Plan (02/26/2020 11:12 AM COMMERCIAL ESCROW ASSISTANT): Assessment: Hx of major depressive disorder and [...] pending Assessment & Plan (02/25/2020 9:33 AM COMMERCIAL ESCROW ASSISTANT): Assessment: Hx of major depressive disorder and [...] pending Assessment & Plan (02/24/2020 6:51 AM COMMERCIAL ESCROW ASSISTANT): Assessment: Hx of major depressive disorder and [...] pending Assessment & Plan (02/23/2020 10:19 AM COMMERCIAL ESCROW ASSISTANT): Assessment: Hx of major depressive disorder and [...] pending Assessment & Plan (02/22/2020 11:07 AM COMMERCIAL ESCROW ASSISTANT): Assessment: Hx of major depressive disorder and [...] QHS Assessment & Plan (02/21/2020 10:54 AM COMMERCIAL ESCROW ASSISTANT): Assessment: History of major depressive disorder and [...] tablet Assessment & Plan (02/20/2020 11:33 AM COMMERCIAL ESCROW ASSISTANT): Assessment: History of major depressive disorder and [...] tablet Assessment & Plan (02/19/2020 3:05 PM COMMERCIAL ESCROW ASSISTANT): Assessment: History of major depressive disorder and [...] tablet Assessment & Plan (02/18/2020 10:13 AM COMMERCIAL ESCROW ASSISTANT): Assessment: History of major depressive disorder and [...] tablet Assessment & Plan (02/17/2020 12:26 PM COMMERCIAL ESCROW ASSISTANT): Assessment: History of major depressive disorder and [...] tablet Assessment & Plan (02/16/2020 1:14 PM COMMERCIAL ESCROW ASSISTANT): Assessment: History of major depressive disorder and [...] tablet Assessment & Plan (02/15/2020 12:31 PM COMMERCIAL ESCROW ASSISTANT): Assessment: History of major depressive disorder and [...] tablet Assessment & Plan (02/14/2020 2:24 PM COMMERCIAL ESCROW ASSISTANT): Assessment: History of major depressive disorder and [...] tablet Assessment & Plan (02/13/2020 12:00 PM COMMERCIAL ESCROW ASSISTANT): Assessment: History of major depressive disorder and [...] tablet Assessment & Plan (02/12/2020 11:20 AM COMMERCIAL ESCROW ASSISTANT): Assessment: History of major depressive disorder and [...] tablet Assessment & Plan (02/11/2020 11:54 AM COMMERCIAL ESCROW ASSISTANT): Assessment: History of major depressive disorder and [...] tablet Assessment & Plan (02/10/2020 12:09 PM COMMERCIAL ESCROW ASSISTANT): Assessment: History of major depressive disorder and [...] tablet Assessment & Plan (02/09/2020 11:50 AM COMMERCIAL ESCROW ASSISTANT): Assessment: History of major depressive disorder and [...] atarax Assessment & Plan (02/08/2020 12:54 PM COMMERCIAL ESCROW ASSISTANT): Assessment: History of major depressive disorder and [...] atarax Assessment & Plan (02/07/2020 11:47 AM COMMERCIAL ESCROW ASSISTANT): Assessment: History of major depressive disorder and [...] atarax Assessment & Plan (02/06/2020 8:12 AM COMMERCIAL ESCROW ASSISTANT): Assessment: History of major depressive disorder and [...] atarax Assessment & Plan (02/05/2020 9:12 AM COMMERCIAL ESCROW ASSISTANT): Assessment: History of major depressive disorder and [...] atarax Assessment & Plan (02/04/2020 12:43 PM COMMERCIAL ESCROW ASSISTANT): Assessment: History of major depressive disorder and [...] atarax Assessment & Plan (02/03/2020 2:28 PM COMMERCIAL ESCROW ASSISTANT): Assessment: History of major depressive disorder and [...] atarax Assessment & Plan (02/02/2020 4:02 PM COMMERCIAL ESCROW ASSISTANT): Assessment: History of major depressive disorder and [...] atarax Assessment & Plan (02/01/2020 12:12 PM COMMERCIAL ESCROW ASSISTANT): Assessment: History of major depressive disorder and [...] atarax Assessment & Plan (01/31/2020 1:04 PM COMMERCIAL ESCROW ASSISTANT): Assessment: History of major depressive disorder and [...] atarax Assessment & Plan (01/30/2020 10:30 AM COMMERCIAL ESCROW ASSISTANT): Assessment: History of major depressive disorder and [...] atarax Assessment & Plan (01/29/2020 9:40 PM COMMERCIAL ESCROW ASSISTANT): Assessment: History of major depressive disorder and [...] atarax Assessment & Plan (01/28/2020 11:59 AM COMMERCIAL ESCROW ASSISTANT): Assessment: History of major depressive disorder and [...] lunch Assessment & Plan (01/27/2020 3:57 PM COMMERCIAL ESCROW ASSISTANT): Assessment: History of major depressive disorder and [...] lunch Assessment & Plan (01/26/2020 6:01 PM COMMERCIAL ESCROW ASSISTANT): Assessment: History of major depressive disorder and [...] atarax Assessment & Plan (01/25/2020 2:56 PM COMMERCIAL ESCROW ASSISTANT): Assessment: History of major depressive disorder and [...] PO. Assessment & Plan (01/24/2020 8:11 AM COMMERCIAL ESCROW ASSISTANT): Assessment: History of major depressive disorder and [...] (02/22/20) Assessment & Plan (01/23/2020 7:09 AM COMMERCIAL ESCROW ASSISTANT): Assessment: History of major depressive disorder and [...] (02/22/20) Assessment & Plan (01/22/2020 7:52 AM COMMERCIAL ESCROW ASSISTANT): Assessment: History of major depressive disorder and [...] (02/22/20) Assessment & Plan (01/21/2020 7:40 AM COMMERCIAL ESCROW ASSISTANT): Assessment: History of major depressive disorder and [...] (02/22/20) Assessment & Plan (01/20/2020 7:36 AM COMMERCIAL ESCROW ASSISTANT): Assessment: History of major depressive disorder and [...] (02/22/20) Assessment & Plan (01/19/2020 7:22 AM COMMERCIAL ESCROW ASSISTANT): Assessment: History of major depressive disorder and [...] (02/22/20) Assessment & Plan (01/18/2020 4:35 PM COMMERCIAL ESCROW ASSISTANT): Assessment: History of major depressive disorder and [...] range. Assessment & Plan (04/08/2020 1:31 PM COMMERCIAL ESCROW ASSISTANT): Assessment: 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, SMA [...] PT Assessment & Plan (04/07/2020 2:52 PM COMMERCIAL ESCROW ASSISTANT): Assessment: 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, SMA [...] PT Assessment & Plan (04/07/2020 6:44 PM COMMERCIAL ESCROW ASSISTANT): Assessment: Marlee is a 19 year old [...] follow up with adolescent medicine on 04/18, [facility] on 05/02, and and scheduling Psych intake visit SOCIAL: - General medicine team spoke with and updated mother on 04/06 LABS: daily urine spec gravity, BMP/Mg/Phos Q / Assessment & Plan (04/06/2020 6:45 PM COMMERCIAL ESCROW ASSISTANT): Assessment: Marlee is a 19 year old [...] orthostatics - Per discussion with multi-disciplinary team, Malree may eat in her room during mealtimes, [...] / Assessment & Plan (04/05/2020 3:22 PM COMMERCIAL ESCROW ASSISTANT): Assessment: 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, SMA [...] PT Assessment & Plan (04/05/2020 10:49 AM COMMERCIAL ESCROW ASSISTANT): Assessment: Marlee is a 19 year old [...] / Assessment & Plan (04/04/2020 3:59 PM COMMERCIAL ESCROW ASSISTANT): Assessment: 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, SMA [...] daily Assessment & Plan (04/04/2020 10:21 AM COMMERCIAL ESCROW ASSISTANT): Assessment: Marlee is a 19 year old [...] in room. May have water from [facility] cup. Oral fluids limited to 250 mL [...] / Assessment & Plan (04/03/2020 12:59 PM COMMERCIAL ESCROW ASSISTANT): Assessment: Marlee is a 19 year old [...] daily Assessment & Plan (04/02/2020 4:19 PM COMMERCIAL ESCROW ASSISTANT): Assessment: Marlee is a 19 year old [...] daily Assessment & Plan (04/01/2020 11:55 AM COMMERCIAL ESCROW ASSISTANT): Assessment: 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 and [...] daily Assessment & Plan (04/01/2020 11:15 AM COMMERCIAL ESCROW ASSISTANT): Assessment: Marlee is a 19 year old [...] daily Assessment & Plan (03/31/2020 12:05 PM COMMERCIAL ESCROW ASSISTANT): Assessment: 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 and [...] daily Assessment & Plan (03/31/2020 10:06 AM COMMERCIAL ESCROW ASSISTANT): Assessment: Marlee is a 19 year old [...] daily Assessment & Plan (03/30/2020 2:24 PM COMMERCIAL ESCROW ASSISTANT): Assessment: Marlee is a 19 year old [...] daily Assessment & Plan (03/29/2020 10:40 AM COMMERCIAL ESCROW ASSISTANT): Assessment: Marlee is a 19 year old [...] daily Assessment & Plan (03/28/2020 12:29 PM COMMERCIAL ESCROW ASSISTANT): Assessment: Marlee is a 19 year old [...] Jevity 1.2 50 mL/hr x 10 hours (2000 - 0600), consider increasing rate again in [...] allowed in room. May have water from [employer] cup. Oral fluids limited to 250 mL [...] daily Assessment & Plan (03/27/2020 10:34 AM COMMERCIAL ESCROW ASSISTANT): Assessment: Marlee is a 19 year old [...] night 03/27: Increase to 50 mL/hr tonight. [facility] is aware of increase but [...] daily Assessment & Plan (03/26/2020 11:20 AM COMMERCIAL ESCROW ASSISTANT): Assessment: Marlee is a 19 year old [...] daily Assessment & Plan (03/25/2020 12:30 PM COMMERCIAL ESCROW ASSISTANT): Assessment: Marlee is a 19 year old [...] daily Assessment & Plan (03/24/2020 5:02 PM COMMERCIAL ESCROW ASSISTANT): Assessment: 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 and [...] anxiety Assessment & Plan (03/24/2020 11:19 AM COMMERCIAL ESCROW ASSISTANT): Assessment: Marlee is a 19 year old [...] daily Assessment & Plan (03/23/2020 12:20 PM COMMERCIAL ESCROW ASSISTANT): Assessment: Marlee is a 19 year old [...] daily Assessment & Plan (03/22/2020 12:20 PM COMMERCIAL ESCROW ASSISTANT): Assessment: Marlee is a 19 year old [...] daily Assessment & Plan (03/21/2020 3:10 PM COMMERCIAL ESCROW ASSISTANT): Assessment: Marlee is a 19 year old [...] Trigylcerides 3 times weekly (, Th, Sun) - Okay to space morning [...] 03/15/2020. Assessment & Plan (03/20/2020 10:32 AM COMMERCIAL ESCROW ASSISTANT): Assessment: Marlee is a 19 year old [...] 03/15/2020. Assessment & Plan (03/19/2020 10:37 AM COMMERCIAL ESCROW ASSISTANT): Assessment: Marlee is a 19 year old [...] 03/15/2020. Assessment & Plan (03/18/2020 1:00 PM COMMERCIAL ESCROW ASSISTANT): Assessment: Marlee is a 19 year old [...] 03/15/2020. Assessment & Plan (03/17/2020 10:36 AM COMMERCIAL ESCROW ASSISTANT): Assessment: Marlee is a 19 year old [...] 03/15/2020. Assessment & Plan (03/16/2020 2:10 PM COMMERCIAL ESCROW ASSISTANT): Assessment: Marlee is a 19 year old [...] 03/15/2020. Assessment & Plan (03/15/2020 11:10 AM COMMERCIAL ESCROW ASSISTANT): Assessment: Marlee is a 19 year old [...] 03/15/2020 Assessment & Plan (03/14/2020 9:53 AM COMMERCIAL ESCROW ASSISTANT): Assessment: Marlee is a 19 year old [...] 03/15/2020 Assessment & Plan (03/13/2020 9:39 AM COMMERCIAL ESCROW ASSISTANT): Assessment: Marlee is a 19 year old [...] week Assessment & Plan (03/12/2020 11:35 AM COMMERCIAL ESCROW ASSISTANT): Assessment: Marlee is a 19 year old [...] week Assessment & Plan (03/11/2020 12:43 PM COMMERCIAL ESCROW ASSISTANT): Assessment: Marlee is a 19 year old [...] week Assessment & Plan (03/10/2020 9:12 AM COMMERCIAL ESCROW ASSISTANT): Assessment: Marlee is a 19 year old [...] in Assessment & Plan (03/09/2020 10:22 AM COMMERCIAL ESCROW ASSISTANT): Assessment: Marlee is a 19 year old [...] in Assessment & Plan (03/08/2020 10:52 AM COMMERCIAL ESCROW ASSISTANT): Assessment: Marlee is a 19 year old [...] in Assessment & Plan (03/07/2020 9:18 AM COMMERCIAL ESCROW ASSISTANT): Assessment: Marlee is a 19 year old [...] in Assessment & Plan (03/06/2020 10:09 AM COMMERCIAL ESCROW ASSISTANT): Assessment: Marlee is a 19 year old [...] NG and ND. PICC line placed on 12/29. [place] was removed on 02/27/19 due to [...] in Assessment & Plan (03/05/2020 9:56 AM COMMERCIAL ESCROW ASSISTANT): Assessment: Marlee is a 19 year old [...] in Assessment & Plan (03/04/2020 12:58 PM COMMERCIAL ESCROW ASSISTANT): Assessment: Marlee is a 19 year old [...] A/P Assessment & Plan (03/03/2020 3:15 PM COMMERCIAL ESCROW ASSISTANT): Assessment: Marlee is a 19 year old [...] A/P Assessment & Plan (03/02/2020 12:06 PM COMMERCIAL ESCROW ASSISTANT): Assessment: Marlee is a 19 year old [...] Trigylcerides 3 times weekly (es, Th, Sun) ID: No concerns for infection [...] A/P Assessment & Plan (03/01/2020 12:05 PM COMMERCIAL ESCROW ASSISTANT): Assessment: Marlee is a 19 year old [...] A/P Assessment & Plan (02/29/2020 12:52 PM COMMERCIAL ESCROW ASSISTANT): Assessment: Marlee is a 19 year old [...] today and 3 times weekly (, Th, Sun) ID: [...] A/P Assessment & Plan (02/28/2020 9:12 AM COMMERCIAL ESCROW ASSISTANT): Assessment: Marlee is a 19 year old [...] A/P Assessment & Plan (02/27/2020 10:03 AM COMMERCIAL ESCROW ASSISTANT): Assessment: Marlee is a 19 year old [...] A/P Assessment & Plan (02/26/2020 11:12 AM COMMERCIAL ESCROW ASSISTANT): Assessment: Marlee is a 19 year old [...] A/P Assessment & Plan (02/25/2020 9:32 AM COMMERCIAL ESCROW ASSISTANT): Assessment: Marlee is a 19 year old [...] A/P Assessment & Plan (02/24/2020 10:42 AM COMMERCIAL ESCROW ASSISTANT): Assessment: Marlee is a 19 year old [...] A/P Assessment & Plan (02/23/2020 10:22 AM COMMERCIAL ESCROW ASSISTANT): Assessment: Marlee is a 19 year old [...] A/P Assessment & Plan (02/22/2020 11:25 AM COMMERCIAL ESCROW ASSISTANT): Assessment: Marlee is a 19 year old [...] A/P Assessment & Plan (02/21/2020 10:54 AM COMMERCIAL ESCROW ASSISTANT): Assessment: Marlee is a 19 year old [...] A/P Assessment & Plan (02/20/2020 11:31 AM COMMERCIAL ESCROW ASSISTANT): Assessment: Marlee is a 19 year old [...] A/P Assessment & Plan (02/19/2020 3:04 PM COMMERCIAL ESCROW ASSISTANT): Assessment: Marlee is a 19 year old [...] Mg, Phos, Trigylcerides 3 times weekly (, Thurs, Sat). Will obtain today due to adjustments made in TPN. Assessment & Plan (02/18/2020 10:14 AM COMMERCIAL ESCROW ASSISTANT): Assessment: Marlee is a 19 year old [...] Sat) Assessment & Plan (02/17/2020 12:30 PM COMMERCIAL ESCROW ASSISTANT): Assessment: Marlee is a 19 year old [...] pending Assessment & Plan (02/16/2020 2:29 PM COMMERCIAL ESCROW ASSISTANT): Assessment: Marlee is a 19 year old [...] pending Assessment & Plan (02/15/2020 12:33 PM COMMERCIAL ESCROW ASSISTANT): Assessment: Marlee is a 19 year old [...] a gastric emptying study for next week (1/4). Marlee has also had persistently low Hg [...] pending Assessment & Plan (02/14/2020 2:23 PM COMMERCIAL ESCROW ASSISTANT): Assessment: Marlee is a 19 year old [...] pending Assessment & Plan (02/13/2020 11:59 AM COMMERCIAL ESCROW ASSISTANT): Assessment: Marlee is a 19 year old [...] pending Assessment & Plan (02/12/2020 11:49 AM COMMERCIAL ESCROW ASSISTANT): Assessment: Marlee is a 19 year old [...] recs Assessment & Plan (02/11/2020 11:56 AM COMMERCIAL ESCROW ASSISTANT): Assessment: Marlee is a 19 year old [...] recs Assessment & Plan (02/10/2020 12:11 PM COMMERCIAL ESCROW ASSISTANT): Assessment: Marlee is a 19 year old [...] SG) Assessment & Plan (02/09/2020 11:49 AM COMMERCIAL ESCROW ASSISTANT): Assessment: Marlee is a 19 year old [...] SG) Assessment & Plan (02/08/2020 12:54 PM COMMERCIAL ESCROW ASSISTANT): Assessment: Marlee is a 19 year old [...] recs. Assessment & Plan (02/07/2020 12:06 PM COMMERCIAL ESCROW ASSISTANT): Assessment: Marlee is a 19 year old [...] SG) Assessment & Plan (02/06/2020 8:12 AM COMMERCIAL ESCROW ASSISTANT): Assessment: Marlee is a 19 year old [...] SG) Assessment & Plan (02/05/2020 9:12 AM COMMERCIAL ESCROW ASSISTANT): Assessment: Marlee is a 19 year old [...] TG) Assessment & Plan (02/04/2020 12:52 PM COMMERCIAL ESCROW ASSISTANT): Assessment: Marlee is a 19 year old [...] TG) Assessment & Plan (02/03/2020 2:38 PM COMMERCIAL ESCROW ASSISTANT): Assessment: Marlee is a 19 year old [...] TG) Assessment & Plan (02/02/2020 4:02 PM COMMERCIAL ESCROW ASSISTANT): Assessment: Marlee is a 19 year old [...] QOD Assessment & Plan (02/01/2020 12:08 PM COMMERCIAL ESCROW ASSISTANT): Assessment: Marlee is a 19 year old [...] RBCs. Assessment & Plan (01/31/2020 1:05 PM COMMERCIAL ESCROW ASSISTANT): Assessment: Marlee is a 19 year old [...] hematuria Assessment & Plan (01/30/2020 10:30 AM COMMERCIAL ESCROW ASSISTANT): Assessment: Marlee is a 19 year old [...] 10.2 Assessment & Plan (01/29/2020 9:39 PM COMMERCIAL ESCROW ASSISTANT): Assessment: Marlee is a 19 year old [...] appetite in AM (per recs from Dr. Sirera) - TUMS, 1 tab BID - Salt [...] syndrome Assessment & Plan (01/28/2020 11:59 AM COMMERCIAL ESCROW ASSISTANT): Assessment: Marlee is a 19 year old [...] QOD Assessment & Plan (01/27/2020 3:59 PM COMMERCIAL ESCROW ASSISTANT): Assessment: Marlee is a 19 year old [...] QOD Assessment & Plan (01/26/2020 5:14 PM COMMERCIAL ESCROW ASSISTANT): Assessment: Marlee is a 19 year old [...] QOD Assessment & Plan (01/25/2020 2:58 PM COMMERCIAL ESCROW ASSISTANT): Assessment: Marlee is a 19 year old [...] QOD Assessment & Plan (01/24/2020 11:54 AM COMMERCIAL ESCROW ASSISTANT): Assessment: Marlee is a 19 year old [...] orthostatics Assessment & Plan (01/23/2020 7:09 AM COMMERCIAL ESCROW ASSISTANT): Assessment: Marlee is a 19 year old [...] orthostatics Assessment & Plan (01/22/2020 4:25 PM COMMERCIAL ESCROW ASSISTANT): Assessment: Marlee is a 19 year old [...] orthostatics Assessment & Plan (01/21/2020 8:15 AM COMMERCIAL ESCROW ASSISTANT): Assessment: Marlee Chavez is a 19 year [...] orthostatics Assessment & Plan (01/20/2020 7:36 AM COMMERCIAL ESCROW ASSISTANT): Assessment: Marlee Chavez is a 19 year [...] orthostatics Assessment & Plan (01/19/2020 7:20 AM COMMERCIAL ESCROW ASSISTANT): Assessment: Marlee Chavez is a 19 year [...] orthostatics Assessment & Plan (01/18/2020 4:30 PM COMMERCIAL ESCROW ASSISTANT): Assessment: Marlee Chavez is a 19 year [...] consult Assessment & Plan (03/27/2020 10:35 AM COMMERCIAL ESCROW ASSISTANT): Assessment: Marlee is admitted on ED Protocol for severe malnutrition. Following feeding plan per [facility]olescent [facility] and Nutrition. Plan: - see plan under ARFID problem Assessment & Plan (03/26/2020 11:20 AM COMMERCIAL ESCROW ASSISTANT): Assessment: Marlee is admitted on ED Protocol for severe malnutrition. Following feeding plan per Adolescent Medicine and Nutrition. Plan: - see plan under ARFID problem Assessment & Plan (03/24/2020 11:19 AM COMMERCIAL ESCROW ASSISTANT): Assessment: Marlee is admitted on ED Protocol for severe malnutrition. Following feeding plan per Adolescent Medicine and Nutrition. Plan: - see plan under ARFID problem Assessment & Plan (03/23/2020 9:00 AM COMMERCIAL ESCROW ASSISTANT): Assessment: Marlee is admitted on ED Protocol for severe malnutrition. Following feeding plan per Adolescent Medicine and Nutrition. Plan: - see plan under ARFID problem Assessment & Plan (03/22/2020 12:21 PM COMMERCIAL ESCROW ASSISTANT): Assessment: Marlee is admitted on ED Protocol for severe malnutrition. Following feeding plan per Adolescent Medicine and Nutrition. Plan: - see plan under ARFID problem Assessment & Plan (03/17/2020 4:26 PM COMMERCIAL ESCROW ASSISTANT): Assessment: 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 and [...] anxiety Assessment & Plan (03/15/2020 11:10 AM COMMERCIAL ESCROW ASSISTANT): Assessment: Marlee is admitted on ED Protocol for severe malnutrition. Following feeding plan per Adolescent Medicine and Nutrition. Plan: - see plan under ARFID problem Assessment & Plan (03/10/2020 11:17 AM COMMERCIAL ESCROW ASSISTANT): Assessment: 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 and [...] needed Assessment & Plan (03/06/2020 10:09 AM COMMERCIAL ESCROW ASSISTANT): Assessment: Marlee is admitted on ED Protocol for severe malnutrition. Following feeding plan per Adolescent Medicine and Nutrition. Plan: - see plan under ARFID problem Assessment & Plan (03/04/2020 1:41 PM COMMERCIAL ESCROW ASSISTANT): Assessment: Marlee is admitted on ED Protocol for severe malnutrition. Following feeding plan per Adolescent Medicine and Nutrition. Plan: - see plan under ARFID problem Assessment & Plan (03/04/2020 11:50 AM COMMERCIAL ESCROW ASSISTANT): Assessment: Marlee is admitted on ED Protocol for severe malnutrition. Following feeding plan per Adolescent Medicine and Nutrition. Plan: - see plan under ARFID problem Assessment & Plan (03/03/2020 3:53 PM COMMERCIAL ESCROW ASSISTANT): Assessment: 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 and [...] dad. Assessment & Plan (02/27/2020 9:57 AM COMMERCIAL ESCROW ASSISTANT): Assessment: Marlee is admitted on ED Protocol for severe malnutrition. Following feeding plan per Adolescent Medicine and Nutrition. Plan: - see plan under ARFID problem Assessment & Plan (02/26/2020 9:59 AM COMMERCIAL ESCROW ASSISTANT): Assessment: Malnutrition is secondary to ARFID and [...] plan. Assessment & Plan (02/25/2020 5:48 PM COMMERCIAL ESCROW ASSISTANT): Assessment: Malnutrition is secondary to ARFID and [...] plan. Assessment & Plan (02/18/2020 4:54 PM COMMERCIAL ESCROW ASSISTANT): Assessment: Malnutrition is secondary to ARFID and [...] daily Assessment & Plan (02/11/2020 11:47 AM COMMERCIAL ESCROW ASSISTANT): Assessment: Malnutrition is secondary to ARFID and [...] BID Assessment & Plan (02/09/2020 11:50 AM COMMERCIAL ESCROW ASSISTANT): Assessment: Marlee is admitted on ED Protocol for severe malnutrition. Following feeding plan per Adolescent Medicine and Nutrition. Plan: - see plan under ARFID problem Assessment & Plan (02/07/2020 11:47 AM COMMERCIAL ESCROW ASSISTANT): Assessment: Marlee is admitted on ED Protocol for severe malnutrition. Following feeding plan per Adolescent Medicine and Nutrition. Plan: - see plan under ARFID problem Assessment & Plan (02/06/2020 8:12 AM COMMERCIAL ESCROW ASSISTANT): Assessment: Marlee is admitted on ED Protocol for severe malnutrition. Following feeding plan per Adolescent Medicine and Nutrition. Plan: - see plan under ARFID problem Assessment & Plan (02/05/2020 9:01 AM COMMERCIAL ESCROW ASSISTANT): Assessment: Marlee is admitted on ED Protocol for severe malnutrition. Following feeding plan per Adolescent Medicine and Nutrition. Plan: - see plan under ARFID problem Assessment & Plan (02/04/2020 12:34 PM COMMERCIAL ESCROW ASSISTANT): Assessment: Marlee is admitted on ED Protocol for severe malnutrition. Following feeding plan per Adolescent Medicine and Nutrition. Plan: - see plan under ARFID problem Assessment & Plan (02/03/2020 2:28 PM COMMERCIAL ESCROW ASSISTANT): Assessment: Marlee is admitted on ED Protocol for severe malnutrition. Following feeding plan per Adolescent Medicine and Nutrition. Plan: - see plan under ARFID problem Assessment & Plan (02/02/2020 3:57 PM COMMERCIAL ESCROW ASSISTANT): Assessment: Marlee is admitted on ED Protocol for severe malnutrition. Following feeding plan per Adolescent Medicine and Nutrition. Plan: - see plan under ARFID problem Assessment & Plan (02/01/2020 12:10 PM COMMERCIAL ESCROW ASSISTANT): Assessment: Marlee is admitted on ED Protocol for severe malnutrition. Following feeding plan per Adolescent Medicine and Nutrition. Plan: - see plan under ARFID problem Assessment & Plan (01/31/2020 1:04 PM COMMERCIAL ESCROW ASSISTANT): Assessment: Marlee is admitted on ED Protocol for severe malnutrition. Following feeding plan per Adolescent Medicine and Nutrition. Plan: - see plan under ARFID problem Assessment & Plan (01/30/2020 10:28 AM COMMERCIAL ESCROW ASSISTANT): Assessment: Marlee is admitted on ED Protocol for severe malnutrition. Following feeding plan per Adolescent Medicine and Nutrition. Plan: - see plan under ARFID problem Assessment & Plan (01/28/2020 4:29 PM COMMERCIAL ESCROW ASSISTANT): Assessment: Malnutrition is secondary to ARFID and [...] BID Assessment & Plan (01/24/2020 11:54 AM COMMERCIAL ESCROW ASSISTANT): Assessment: Marlee is admitted on ED Protocol for severe malnutrition. Following feeding plan per Adolescent Medicine and Nutrition. Plan: - see plan under ARFID problem Assessment & Plan (01/23/2020 7:09 AM COMMERCIAL ESCROW ASSISTANT): Assessment: Marlee is admitted on ED Protocol for severe malnutrition. Following feeding plan per Adolescent Medicine and Nutrition. Plan: - see plan under ARFID problem Assessment & Plan (01/22/2020 9:48 AM COMMERCIAL ESCROW ASSISTANT): Assessment: Malnutrition is secondary to ARFID and [...] () Assessment & Plan (01/22/2020 7:52 AM COMMERCIAL ESCROW ASSISTANT): Assessment: Marlee is admitted on ED Protocol for severe malnutrition. Following feeding plan per Adolescent Medicine and Nutrition. Plan: - see plan under ARFID problem Assessment & Plan (01/21/2020 10:33 AM COMMERCIAL ESCROW ASSISTANT): Assessment: Malnutrition is secondary to ARFID and [...] () Assessment & Plan (01/21/2020 7:40 AM COMMERCIAL ESCROW ASSISTANT): Assessment: Marlee is admitted on ED Protocol for severe malnutrition. Following feeding plan per Adolescent Medicine and Nutrition. Plan: - see plan under ARFID problem Assessment & Plan (01/20/2020 7:36 AM COMMERCIAL ESCROW ASSISTANT): Assessment: Marlee is admitted on ED Protocol for severe malnutrition. Following feeding plan per Adolescent Medicine and Nutrition. Plan: - see plan under ARFID problem Assessment & Plan (01/19/2020 7:22 AM COMMERCIAL ESCROW ASSISTANT): Assessment: Marlee is admitted on ED Protocol for severe malnutrition. Following feeding plan per Adolescent Medicine and Nutrition. Plan: - see plan under ARFID problem Assessment & Plan (01/18/2020 4:25 PM COMMERCIAL ESCROW ASSISTANT): Assessment: Marlee Chavez is a 19 year [...] orthostatics Assessment & Plan (01/17/2020 12:38 PM COMMERCIAL ESCROW ASSISTANT): Assessment: Marlee Chavez is a 19 year [...] anxiety Assessment & Plan (01/16/2020 1:41 PM COMMERCIAL ESCROW ASSISTANT): Assessment: Marlee Chavez is a 19 year [...] anxiety Assessment & Plan (01/15/2020 8:49 PM COMMERCIAL ESCROW ASSISTANT): Assessment: Malnutrition is secondary to ARFID and [...] counseling. Assessment & Plan (01/15/2020 11:57 AM COMMERCIAL ESCROW ASSISTANT): Assessment: Marlee Chavez is a 19 year [...] anxiety Assessment & Plan (01/14/2020 1:00 PM COMMERCIAL ESCROW ASSISTANT): Assessment: Malnutrition is secondary to ARFID and [...] () Assessment & Plan (01/14/2020 9:54 AM COMMERCIAL ESCROW ASSISTANT): Assessment: Marlee Chavez is a 19 year [...] anxiety Assessment & Plan (01/13/2020 2:34 PM COMMERCIAL ESCROW ASSISTANT): Assessment: Marlee Chavez is a 19 year [...] anxiety Assessment & Plan (01/13/2020 12:01 PM COMMERCIAL ESCROW ASSISTANT): Moderate protein-calorie malnutrition Assessment: Marlee Chavez is [...] thereafter Assessment & Plan (01/12/2020 3:40 PM COMMERCIAL ESCROW ASSISTANT): Moderate protein-calorie malnutrition Assessment: Marlee Chavez is [...] chart) Assessment & Plan (01/12/2020 1:25 PM COMMERCIAL ESCROW ASSISTANT): Assessment: Marlee Chavez is a 19 year [...] anxiety Assessment & Plan (01/11/2020 11:43 AM COMMERCIAL ESCROW ASSISTANT): Assessment: Marlee Chavez is a 19 year [...] cysts Assessment & Plan (01/10/2020 9:32 AM COMMERCIAL ESCROW ASSISTANT): Assessment: Marlee Chavez is a 19 year [...] cysts Assessment & Plan (01/09/2020 11:08 AM COMMERCIAL ESCROW ASSISTANT): Assessment: Marlee Chavez is a 19 year [...] cysts Assessment & Plan (01/08/2020 1:32 PM COMMERCIAL ESCROW ASSISTANT): Assessment: Marlee Chavez is a 19 year [...] cysts Assessment & Plan (01/07/2020 2:52 PM COMMERCIAL ESCROW ASSISTANT): Assessment: Marlee Chavez is a 19 year [...] cysts Assessment & Plan (01/06/2020 11:27 AM COMMERCIAL ESCROW ASSISTANT): Assessment: Marlee Chavez is a 19 year [...] cysts Assessment & Plan (01/05/2020 3:49 PM COMMERCIAL ESCROW ASSISTANT): Assessment: Marlee Chavez is a 19 year [...] cysts Assessment & Plan (01/04/2020 1:53 PM COMMERCIAL ESCROW ASSISTANT): Assessment: Marlee Chavez is a 19 year [...] cysts Assessment & Plan (01/03/2020 12:34 AM COMMERCIAL ESCROW ASSISTANT): Assessment: Marlee Chavez is a 19 year [...] Admit to General medicine (purple team)- Dr. aVldez -[facility] LR at 95ml/hr -Continue home medications: Zyprexa, [...] 03/18/2023 Assessment & Plan (01/24/2022 5:04 PM COMMERCIAL ESCROW ASSISTANT): Assessment: Marlee Chavez is a 20 year [...] gabapentin Assessment & Plan (01/23/2022 6:56 PM COMMERCIAL ESCROW ASSISTANT): Assessment: Marlee Chavez is a 20 year [...] pain Assessment & Plan (01/08/2021 3:05 PM COMMERCIAL ESCROW ASSISTANT): Assessment: Patient is an 20 year old [...] I&Os Assessment & Plan (01/07/2021 4:52 PM COMMERCIAL ESCROW ASSISTANT): Assessment: Patient is an 20 year old [...] it Assessment & Plan (01/06/2021 6:00 PM COMMERCIAL ESCROW ASSISTANT): Assessment: Patient is an 20 year old [...] I&Os Assessment & Plan (01/05/2021 1:27 PM COMMERCIAL ESCROW ASSISTANT): Assessment: Patient is an 20 year old [...] I&Os Assessment & Plan (01/04/2021 9:17 PM COMMERCIAL ESCROW ASSISTANT): Assessment: Patient is an 20 year old [...] I&Os Assessment & Plan (01/03/2021 8:43 PM COMMERCIAL ESCROW ASSISTANT): Assessment: Patient is an 20 year old [...] wearing condom. She has upcoming appointment with motion picture director next month at which time, she will be getting a IUD. Plan: -urine test today -GC, chlamydia, trichomonas testing Assessment & Plan (05/24/2020 2:43 PM CDT): Will get urine Hcg and STI testing. Mom is aware and Marlee is ok with us communicating results to her mother. Purging 03/24/2020 05/24/2020 Assessment & Plan (04/05/2020 3:23 PM COMMERCIAL ESCROW ASSISTANT): Assessment: Has been drinking excessive amounts of water and putting her fingers in her mouth to induce vomiting. No recorded emesis since 03/25. Plan: Will limit access to water to 250ml at a time. May only bathe once per day after she has taken her meds, had breakfast and lunch. Assessment & Plan (04/04/2020 12:58 PM COMMERCIAL ESCROW ASSISTANT): Assessment: Has been drinking excessive amounts of water and putting her fingers in her mouth to induce vomiting. No recorded emesis since 03/25. Plan: Will limit access to water to 250ml at a time. May only bathe once per day after she has taken her meds, had breakfast and lunch. Assessment & Plan (04/01/2020 11:55 AM COMMERCIAL ESCROW ASSISTANT): Assessment: Has been drinking excessive amounts of water and putting her fingers in her mouth to induce vomiting. No recorded emesis since 03/25. Plan: Will limit access to water to 250ml at a time. May only bathe once per day after she has taken her meds, had breakfast and lunch. Assessment & Plan (03/24/2020 4:53 PM COMMERCIAL ESCROW ASSISTANT): Assessment: Has been drinking excessive amounts of water and putting her fingers in her mouth to induce vomiting. Plan: Will limit access to water to 250ml at a time. May only bathe once per day after she has taken her meds, had breakfast and lunch. Ovarian cyst 01/12/2020 03/19/2020 Assessment & Plan (03/15/2020 11:10 AM COMMERCIAL ESCROW ASSISTANT): Assessment: on ultrasound on R Plan: -Radiology recommended repeat imaging in 6 months for ovarian cysts Assessment & Plan (03/04/2020 1:41 PM COMMERCIAL ESCROW ASSISTANT): Assessment: on ultrasound on R Plan: -Radiology recommended repeat imaging in 6 months for ovarian cysts Assessment & Plan (03/04/2020 11:50 AM COMMERCIAL ESCROW ASSISTANT): Assessment: on ultrasound on R Plan: -Radiology recommended repeat imaging in 6 months for ovarian cysts Assessment & Plan (02/27/2020 9:58 AM COMMERCIAL ESCROW ASSISTANT): Assessment: on ultrasound on R Plan: -Radiology recommended repeat imaging in 6 months for ovarian cysts Assessment & Plan (01/28/2020 11:59 AM COMMERCIAL ESCROW ASSISTANT): Assessment: on ultrasound on R Plan: -Radiology recommended repeat imaging in 6 months for ovarian cysts Assessment & Plan (01/27/2020 3:52 PM COMMERCIAL ESCROW ASSISTANT): Assessment: on ultrasound on R Plan: -Radiology recommended repeat imaging in 6 months for ovarian cysts Assessment & Plan (01/26/2020 6:01 PM COMMERCIAL ESCROW ASSISTANT): Assessment: on ultrasound on R Plan: -Radiology recommended repeat imaging in 6 months for ovarian cysts Assessment & Plan (01/13/2020 2:33 PM COMMERCIAL ESCROW ASSISTANT): Assessment: on ultrasound on R Plan: -Radiology recommended repeat imaging in 6 months for ovarian cysts Assessment & Plan (01/12/2020 1:26 PM COMMERCIAL ESCROW ASSISTANT): Assessment: on ultrasound on R Plan: -Radiology recommended repeat imaging in 6 months for ovarian cysts Self-injurious behavior 03/25/201705/12 Major depressive disorder, severe 03/21/2017 05/24/2020 Intractable vomiting 020 Encounters * This document contains information received from the source organization and may not represent a complete record from that organization. Date Type Department Care Team Description 07/07/2024 Travel 06/11/2024 Travel 06/10/2024 Orders Only [address] [address] Ronel Thornton DO 06/09/2024 Telephone [facility] [address] Josef Leigh, [address] [phone] Mercedes Cruz, HEALTH TECHNICIAN-REALTY SPECIALIST Follow-up 06/09/2024 Patient Outreach [facility] - Care Coordination [address] [place] [phone] Marlee Taylor, MACHINE GREASER UC Follow-up 06/08/2024 1:20 PM CDT Office Visit [address] [address] Ronel Thornton DO Moderate bulimia nervosa (HCC) (Primary Dx); Superior mesenteric artery syndrome (HCC); Avoidant-restrictiv e food intake disorder (ARFID) 06/08/[address] [id number] Ronel Thornton DO Medication Issue 06/08/2024 Patient Outreach [facility] - Care Coordination [address] [place] [phone] Marlee Taylor, MACHINE GREASER UC Follow-up 06/07/2024 2:27 AM CDT - 06/07/2024 7:04 AM CDT Emergency ER at [facility] [address] [place] [id number] Momo Yung MD Abdominal pain, epigastric; Nausea vomiting and diarrhea Discharge Disposition: Home or Self Care 06/07/2024 Travel 05/22/2024 Travel 05/12/2024 Travel 05/07/2024 10:00 AM CDT Office Visit [address] [address] Ronel Thornton DO Anorexia (Primary Dx); Generalized anxiety disorder 04/29/2024 8:20 AM CDT Office Visit [address] [address] Ronel Thornton DO Anorexia (Primary Dx); Severe bulimia nervosa; Generalized anxiety disorder; Recurrent major depressive disorder, in full remission; PTSD (post-traumatic stress disorder); Borderline personality disorder from Last 3 Months Immunizations Immunization Administration Dates Next Due [employer] primary monoval ent 12+ yr 0.3mL Purple [...] Date Recorded Patient Health Questionnaire-2 Score 0 07/07/2024 [facility] - Occupational Stress [...] in a usp (including now)? No 04/24/2023 Comments No Sex and Gender Information Value Date Recorded Sex Assigned at Not on file Legal Sex Female 6:25 PM COMMERCIAL ESCROW ASSISTANT Gender Identity Not on file Sexual Orientation Not on file Last Filed Vital Signs Vital Sign Reading Time Taken Comments Blood Pressure 97/64 07/07/2024 9:04 AM CDT Pulse 84 07/07/2024 9:04 AM CDT Temperature 36.6 C (97.8 F) 06/11/2024 1:33 PM CDT Respiratory Rate 18 06/07/2024 7:00 AM CDT Oxygen Saturation 96% 07/07/2024 9:04 AM CDT Inhaled Oxygen Concentration 21% 06/27/2021 6 :30 PM CDT Weight 44 kg (97 lb) 07/07/2024 9:04 AM CDT Height 154.9 cm (5' 1) 07/07/2024 9:04 AM CDT Body Mass Index 18.33 07/07/2024 9:04 AM CDT Plan of Treatment Upcoming Encounters Date Type Department Care Team (Late st Contact Info) Description 07/22/2024 9:30 AM CDT Office Visit [address] [address] Mike Butler PA-C [address] [place] [phone] 01/20/2025 8:20 AM COMMERCIAL ESCROW ASSISTANT Office Visit [address] [address] Ronel Thornton DO [address] [place] [address] Health Maintenance Due Date Last Done [...] Procedure Name Priority Date/Time Associated Diagnosis Comments GLUCOSE - POINT OF CARE Routine 06/07/2024 6:[address] ABDOMEN PELVIS W CONTRAST STAT 06/07/2024 [...] PANEL Routine 04/29/2024 8:58 AM CDT Anorexia LA ELECTROCARDIOGRAM, COMPLETE Routine 04/29/2024 Anorexia PAP CERVICAL [...] Relevant to Health Maintenance Results * (ABNORMAL) GLUCOSE - POINT OF CARE (06/07/2024 6:34 AM CDT) [facility] Glucose WB/POC 107(H) 70 - 99 mg/dL 06/07/2024 6:[address] [facility] Specimen Type Cap Fingerstick 2024 6:[address] [facility] Blood BLOOD SPECIMEN / Unknown 06/07/2024 6:34 AM CDT 06/07/2024 6:03 PM CDT Momo Yung MD LAB - POINT OF CARE ORDERABL ES Final Result [facility] [address] [place] [address] * CT Abdomen Pelvis W Contrast (06/07/2024 [...] - 99 mg/dL 06/07/2024 3:[address] [facility] Sodium 138 136 - 145 mmol/L 06/07/2024 3:[address] [facility] Potassium 3.9 3.5 - 5.1 mmol/L 06/07/2024 3:[address] [facility] Chloride 100 98 - 107 mmol/L 06/07/2024 3:[address] [facility] CO2 18(L) 22 - 29 mmol/L 06/07/2024 3:[address] [facility] Calcium 9.8 8.4 - 10.4 mg/dL 06/07/2024 3:[address] [facility] Anion Gap 20(H) 6 - 16 mmol/L 06/07/2024 3:[address] [facility] BUN 27(H) 5.3 - 18.7 mg/dL 06/07/2024 3:[address] [facility] Creatinine 1.07 0.57 - 1.11 mg/dL 06/07/2024 3:[address] [facility] Alkaline Phosphatase 66 40 - 150 U/L 06/07/2024 3:[address] [facility] ALT 18 6 - 57 U/L 06/07/2024 3:[address] [facility] AST 36 10 - 48 U/L 06/07/2024 3:[address] [facility] Protein Total 9.0(H) 6.4 - 8.3 gm/dL 06/07/2024 3:[address] [facility] Albumin 5.0 3.4 - 5.0 gm/dL 06/07/2024 3:[address] [facility] Bilirubin Total 0.7 0.2 - 1.2 mg/dL 06/07/2024 3:[address] [facility] [facility] eGFR by CKD-EPI 76(L) >=90 mL/min/1.7 3 m2 06/07/2024 3:[address] [facility] Blood BLOOD SPECIMEN / Unknown Venipuncture / Unknown 06/07/2024 2:50 AM CDT 06/07/2024 2:50 AM CDT us Momo Yung MD LAB - CHEMISTRY ORDERABLES F inal Result [facility] [address] [place] [address] * HCG BETA BLOOD QUANTITATIVE (06/07/2024 2:50 AM CDT) hCG Quantitative <2.42 mIU/mL 06/08/19 3:[address] [facility] Blood BLOOD SPECIMEN / Unknown Venipuncture / Unknown 06/07/2024 2:50 AM CDT 06/07/2024 2:[address] [facility] - 06/07/2024 3:11 AM CDT [...] ORDERABLES F inal Result Performing Organization Address City/[facility]/ZIP Co de Phone Number [facility] [address] [place] [address] * PHOSPHORUS BLOOD (06/07/2024 2:50 AM CDT) Phosphorus 4.5 2.5 - 4.5 mg/dL 06/07/2024 3:[address] [facility] Blood BLOOD SPECIMEN / Unknown Venipuncture / Unknown 06/07/2024 2:50 AM CDT 06/07/2024 2:50 AM CDT Momo Yung MD LAB - CHEMISTRY ORDERABLES F inal Result Performing Organization Address [facility] de Phone Number [facility] [address] [place], [place] [id number] * MAGNESIUM BLOOD (06/07/2024 2:50 AM CDT) Only the most recent of2 resultswithin the time period is included. Magnesium 2.2 1.6 - 2.6 mg/dL 06/07/2024 3:[address] [facility] Blood BLOOD SPECIMEN / Unknown Venipuncture / Unknown 06/07/2024 2:50 AM CDT 06/07/2024 2:50 AM CDT Momo Yung MD LAB - CHEMISTRY ORDERABLES F inal Result Performing Organization Address [facility] Co de Phone Number [facility] [address] [place] [address] * (ABNORMAL) LIPASE BLOOD (06/07/2024 2:50 AM CDT) Lipase 84(H) <60 U/L 06/07/2024 3:[address] [facility] Blood BLOOD SPECIMEN / Unknown Venipuncture / Unknown 06/07/2024 2:50 AM CDT 06/07/2024 2:50 AM CDT us Momo Yung MD LAB - CHEMISTRY ORDERABLES F inal Result [facility] [address] [place] [address] * CBC W AUTO DIFFERENTIAL (06/07/2024 2:49 AM CDT) Only the most recent of2 resultswithin the time period is included. Pathologist [facility] [place] WBC 9.6 4.0 - 10.7 x10E9/L 06/07/2024 2:[address] [facility] RBC Count 4.88 3.90 - 5.20 x10E12/L 06/07/2024 2:[address] [facility] Hemoglobin 14.8 11.9 - 15.8 g/dL 06/07/2024 2:[address] [facility] Hematocrit 44.1 34.8 - 46.1 % 06/07/2024 2:[address] [facility] MCV 90.4 80.0 - 98.0 fL 06/07/2024 2:[address] [facility] MCH 30.3 26.7 - 33.6 pg 06/07/2024 2:[address] [facility] MCHC 33.6 31.7 - 36.3 g/dL 06/07/2024 2:[address] [facility] RDW-CV 12.6 11.3 - 14.8 % 06/07/2024 2:[address] [facility] Platelet Count 353 150 - 420 x10E9/L 06/07/2024 2:[address] [facility] MPV 9.6 7.8 - 11.4 fL 06/07/2024 2:[address] [facility] Neutrophil % 70.8 41.0 - 74.0 % 06/07/2024 2:[address] [facility] Lymphocyte % 18.4 17.0 - 47.0 % 06/07/2024 2:[address] [facility] Monocyte % 10.3 3.0 - 11.0 % 06/07/2024 2:[address] [facility] Eosinophil % 0.0 0.0 - 7.0 % 06/07/2024 2:[address] [facility] Basophil % 0.2 0.0 - 1.6 % 06/07/2024 2:[address] [facility] Immature Granulocytes % 0.3 0.0 - 1.0 % 06/07/2024 2:[address] [facility] Neutrophil Absolute 6.79 1.60 - 7.50 x10E9/L 06/07/2024 2:[address] [facility] Lymphocyte Absolute 1.77 1.00 - 4.40 x10E9/L 06/07/2024 2:[address] [facility] Monocyte Absolute 0.99 0.15 - 1.00 x10E9/L 06/07/2024 2:[address] [facility] Eosinophil Absolute 0.00 0.00 - 0.60 x10E9/L 06/07/2024 2:[address] [facility] Basophil Absolute 0.02 0.00 - 0.13 x10E9/L 06/07/2024 2:[address] [facility] Blood BLOOD SPECIMEN / Unknown Venipuncture / Unknown 06/07/2024 2:49 AM CDT 06/07/2024 2:49 AM CDT us Momo Yung MD LAB - HEMATOLOGY ORDERABLES Final Result [facility] [address] [place] [address] * LIPID PROFILE (04/29/2024 8:58 [...] - 04/29/2024 6:09 PM CDT Performed at: [address] [place] [address] [address], [place], [place] [id number] [employer] Supervisor: Elizabeth Rangel [facility], Phone: [phone] Ronel Thornton DO LAB - CHEMISTRY ORDERABLES Fi nal Result [facility] ACCOUNT BILL [address] [place] [address] * LA ELECTROCARDIOGRAM, COMPLETE (04/29/2024) Ronel Thornton DO [place] - PROFESSIONAL SERVICES Ed ited Result - Final * (ABNORMAL) PAP CERVICAL CANCER SCREEN CT/NG/TV APT (11/29/2023 11:06 AM CDT) Age Gdln ACOG Testing 21-29 [facility] ACCOUNT BILL Comment: Performed at: - [facility] [address] [id number] [employer] Supervisor: Meredith Gil MD, Phone: [phone] Performed at: - [facility] [id number] [employer] Supervisor: Meredith Gil MD, Phone: [phone] Diagnosis Comment(A) [facility] ACCOUNT BILL Comment: EPITHELIAL [...] 11:06 AM CDT 11/29/2023 Comment:Cervix Release to [facility] Anu [facility] ACCOUNT BILL - 12/05/2023 5:09 PM CDT Performed at: [facility] [id number] [employer] Supervisor: Meredith Gil MD, Phone: [phone] Specimen Comment: [id number] Specimen Comment: Source.............Cervix Specimen Comment: No. of containers..01 ThinPrep Vial Nai Jurado MD LAB - PATHOLOGY/CYTOLOGY [place] Final Result [facility] ACCOUNT BILL [address] [place] [address] * HIV-1 HIV-2 ANTIBODY + HIV P24 [...] 10:10 AM CDT Performed at: 01 - [facility] [place] [address] [place], [place] [id number] [employer] Supervisor: Karlos Huffman PhD, Phone: [phone] Nai Jurado MD LAB - CHEMISTRY ORDERABLES Fi nal Result Performing Organization Address City/[facility]/ZIP Co de Phone Number [facility] ACCOUNT BILL [address] [place] [address] * HEPATITIS C AB W/RFLX TO HCV RNA QN PCR (12/07/2021) Hepatitis C Antibody NON-REACTI VE NON-REACT [facility] Signal to Cut-Off 0.08 <1.00 [facility] Comment: HCV antibody was non-reactive. There is no laboratory evidence of HCV infection. In most cases, no further action is required. However, if recent HCV exposure is suspected, a test for HCV RNA (test code 33434) is suggested. For additional information please refer to http://education.[employer]/faq/MTC91h3 (This link is being provided for informational/ educational purposes only.) Test Performed at: [facility] [address] [place] [address] PURVI PABLO DO,MPH Blood BLOOD SPECIMEN / Unknown 12/07/2021 12/07/2021 10:47 AM CDT Karrie Mack MD LAB - CHEMISTRY ORDERABLES Final Result [facility] [address] [place] [address] from Last 3 Months or Most Recently Relevant to Health Maintenance Insurance [facility] Advance Directives * Full Code [...] 4:54 PM 06/22/2022 2:44 PM Care Teams Senior Cobol Developer Relationship Specialty Start Date End Date Ronel Thornton DO [address] [place] [address] PCP - General Family Medicine 03/18/23 Ronel Thornton DO [address] [place] [address] PCP - Attributed-[facility] ST 04/12/23
--- OUTSIDE RECORDS SUMMARY | 2024-07-18 13:29 | XMS_ITS | Encounter Summary ---
Author Organization [facility] Address [address] [place] [address] Care Team Providers Care Senior Linux Administrator Name Role Phone Mellissa Jiménez MD Primary Care Provider [phone] Ronel Thornton DO Primary Care Provider [phone] Daphnie Gillespie MD Unavailable Juliana Peralta WELFARE ANALYST Unavailable [phone] Juliana Peralta WELFARE ANALYST Unavailable [phone] Ronel Thornton DO Unavailable [phone] Kenyatta Taylor RN Unavailable Tiago Lew Unavailable [phone] Reason for Visit * Reason Onset Date Comments Forms/questionnaires 01/23/2021 Encounter Details Date Type Department Care Team (Late st Contact Info) Description 01/23/2021 Telephone [facility] Pediatrics - Surgery [address] [place] [address] Daphnie Gillespie MD [address] [place] [id number] Forms/questionnaires Social History Tobacco Use Types [...] on file Legal Sex Female 6:25 PM COMPLIANCE INVESTIGATOR Gender Identity Not on file Sexual Orientation Not on file COVID-19 Exposure Response Date Recorded In the last month, have you been in contact with someone who was confirmed or suspected to have Coronavirus / COVID-19? No / Unsure 01/24/2021 11:47 AM COMPLIANCE INVESTIGATOR documented as of this encounter Functional Status * Is person deaf or have serious hearing difficulty? Answer Date of Assessment Author No 01/06/2021 10:42 AM Rosa Oliva RN * Is person blind or have serious difficulty seeing? Answer Date of Assessment Author No 01/06/2021 10:42 AM Rosa Oliva RN * Does person have serious difficulty walking/climbing stairs? Answer Date of Assessment Author No 01/06/2021 10:42 AM Rosa Oliva RN * Does person have difficulty dressing/bathing? Answer Date of Assessment Author No 01/06/2021 10:42 AM Rosa Oliva RN * Does person have difficulty doing errands alone? Answer Date of Assessment Author No 01/06/2021 10:42 AM Rosa Oliva RN documented as of this encounter Mental Status * Does person have difficulty concentrating/remembering/making decisions? Answer Entry Date Author No 01/06/2021 10:42 AM Rosa Oliva RN documented in this encounter Miscellaneous Notes * Telephone Encounter - Madelyn Betancur - 01/23/2021 4:35 PM CST Kenyatta stated she faxed a medical form last week to be filled out by the doctor for in patient facility and wanted to know if it was received. LIANCE INVESTIGATOR documented in this encounter Plan of Treatment Upcoming Encounters Date Type Department Care Team (Late st Contact Info) Description 07/22/2024 9:30 AM CDT Office Visit [address] [address] Mike Butler PA-C [address] [place] [address] 01/20/2025 8:20 AM COMPLIANCE INVESTIGATOR Office Visit [address] [address] Ronel Thornton DO [address] [place] [address] documented as of this encounter Visit Diagnoses Not on filedocumented in this encounter Additional Health Concerns Infection Onset Date Last Indicated Resolved Time COVID-19 Under Investigation 08/10/2021 08/10/2021 08/10/2021 2:59 AM CDT documented as of this encounter Care Teams Senior Linux Administrator Relationship Specialty Start Date End Date Mellissa Jiménez MD [address] [place] [address] [place] [id number] PCP - General Family Medicine 04/25/20 03/17/23 Ronel Thornton DO [address] [place] [address] PCP - General Family Medicine 03/18/23 Daphnie Gillespie MD [address] [place] [address] PCP - Attributed-[facility] 02/11/23 04/11/23 Ronel Thornton DO [address] [place] [address] PCP - Attributed-[facility] 04/12/23 Juliana Peralta MSW Outpatient [employer] Care Management 04/24/2304/11 Juliana Peralta MSW Outpatient [employer] Care Management 04/30/2304/12 Kenyatta Taylor RN [address] [address] Machinery ErectorCounter Former 09/02/23 10/04/23 Tiago Lew Care Coordination Specialist Care Management 09/26/23 11/10/23 documented as of this encounter
--- OUTSIDE RECORDS SUMMARY | 2024-07-18 13:29 | XMS_ITS | Clinical Summary ---
Author Organization [facility] Address [address] [place] [address] Phone Care Team Providers Care Erp Business Analyst Name Role Phone Mellissa Jiménez MD [...] on file Legal Sex Female 10:44 PM PERSONAL SUPPORT WORKER Gender Identity Not on file Sexual [...] 52.2 kg (115 lb) 04/20/2023 2:30 AM PERSONAL SUPPORT WORKER Height 152.4 cm (5') 04/20/2023 2:30 AM PERSONAL SUPPORT WORKER Body Mass Index 22.46 04/20/2023 2:30 AM PERSONAL SUPPORT WORKER Plan of Treatment Health Maintenance Due Date Last Done Comments CHLAMYDIA SCREENING (ANNUAL) 11-24 YEARS 2013 HPV VACCINES (1 - 3-dose series) 2017 CERVICAL CANCER SCREENING 08/17/2023 HPV/Cotest (21-29) 08/17/2023 PAP SMEAR 08/17/2023 INFLUENZA VACCINE (#1) 2023 01/25/2022, 2020 COVID-19 Vaccine (3 - 2023-2 5 season) 2023 07/26/2020, 07/03/2020 DTAP/TDAP/TD VACCINES (7 - T d or Tdap) 12/16/2023 12/15/2013, 07/08/2007, 02/22/2004, Additional history exists HEPATITIS B VACCINES Completed 02/22/2004, 06/09/2003, 02/22/2003, Additional history [place] [address] [facility] [id number] OUT OF NETWORK Advance Directives For more information, please contact: [phone] * Full Code (Latest Code Status on File) Date Activated Date Inactivated Comments 04/20/2023 2:32 AM 04/21/2023 4:11 PM Care Teams Erp Business Analyst Relationship Specialty Start Date End Date Mellissa Jiménez MD [address] [place] [address] PCP - General Family Practice 04/20/23
[2024-07-18 14:05] LABS: Reflex Lactic Acid Yes or No Add Lactic
[2024-07-18 14:32] LABS: Lactic Acid 2.2 mmol/L (0.7-2.0)
[2024-07-18 14:45] VITALS: BP 120/96; PULSE 88; RESP 16; O2SAT 98
[2024-07-18] MEDS: METOCLOPRAMIDE HCL INJ 10 MG/2 ML VIAL IV PUSH ×2 (15:58→23:06)
--- NOTE | 2024-07-18 16:37 | P.HP_ITS ---
H&P: HPI History of Present Illness Date/Time: 07/18/24 16:37 Chief Complaint: Nausea vomiting diarrhea Narrative: 23-year-old female well known to this hospital for cyclical vomiting and anxiety presents the hospital with vomiting nausea and diarrhea. Patient complains of abdominal pain feels like someone is punching her in her stomach. She states that she is very nauseous and cannot keep anything down. She denies fever chills Lab work shows leukocytosis at 17.5 carbon dioxide 19 anion gap of 14 lactic acid of 5.0 followed by 2.2. UA cloudy with trace leukocyte esterase, Over 100 rbc's and 11-[address] abdomen no acute findings. Review of Systems Review of Systems: 12 systems were reviewed and are negativ e except for as per HPI. [facility] Past Medical History Medical History (Updated 07/18/24 @ 19:45 by Suzanne Tatum, ELIJAH) Drug withdrawal seizure History of eating disorder Anxiety Depression Family History Family History Grandparent History of alcoholism Depression Mother History of alcoholism Hypertension Depression Social History Social History Smoking status: Never smoker Alcohol intake: never Substance use: current Substance use type: marijuana Last use: 07/18/2024 Do You Feel Safe in your Home?: Yes Lack of Transportation: No Lack of Food: Never True Current Housing: I Have Housing Concerned About Future Housing: No Difficulty Paying Gas/Electric Bills: No Difficulty Paying for Meds: No Currently Unemployed: No Education: High School Diploma/GED Difficulty w/ Childcare or Family Care: No Living arrangements: with roommate(s) Occupation/Education: unemployed Additional occupation/education comments: not currently working or in school Gender identity (if verbalized by the patient): Female Spiritual care concerns: No Meds Home Medications and Allergies Home Medications ?Medication ?Instructions ?Recorded ?Confirmed ?Type olanzapine 15 mg tablet 15 tablet PO DAILY 07/17/21 07/18/24 History hydroxyzine pamoate 25 mg capsule 25 mg PO TID PRN anxiety #20 caps 03/28/24 07/18/24 Rx (Vistaril) escitalopram oxalate 10 mg tablet 10 mg PO DAILY 07/18/24 07/18/24 History Allergies Allergy/AdvReac Type Severity Reaction Status Date / Time No Known Allergies Allergy Verified 06/07/24 08:15 Vital Signs Vital Signs - 24 hr 07/18/24 11:38 07/18/24 13:00 07/18/24 14:45 Temperature 98 F Pulse Rate 80 96 88 Respiratory Rate 16 16 16 Blood Pressure 140/100 H 138/98 H 120/96 H Pulse Oximetry 100 97 98 Oxygen Delivery Room Air Exam Narrative: General: well appearing, appears stated age. HEENT: normocephalic, atraumatic. Mucous membranes moist. EOMI, PERRLA, bilateral sclera anicteric, no conjunctival injection. Neck supple without JVD, lymphadenopathy, or bruit. Respiratory: clear to ascultation bilaterally. No rales/rhonic/wheezes. Cardiovascular: Regular rate and rhythm, normal S1-S2 upon ascultation. No murmurs, rubs, or clicks. PMI is nondisplaced, capillary refill less than 3 second. Abdomen: Soft, round, no pulsatile masses, nondistended and nontender. No rebound, no guarding. No CVA tenderness, no hepatosplenomegaly. Bowel sounds present to all four quadrants. No high pitch or tinkling sounds, resonant to percussion. Extremities: No cyanosis, clubbing, or edema present. Pulses are palpable 2/2. Active ROM to all four extremities. Neuro: Alert and orientated x 4. PERRLA. Cranial nerves 2-12 intact without focal deficit. Skin: Warm, dry, and intact, without rash, erythema, or lesion. Psych: pleasant, cooperative, normal speech, normal affect, no hallucinations, no dysarthia H&P: Results Labs Labs: Short CBC 07/18/24 Range/Units 11:57 WBC 17.5 H (4.5-10.0) K/mm3 Hgb 12.4 (12.0-15.0) g/dL Hct 37.1 (37.0-47.0) % Plt Count 298 (150-375) k/mm3 BMP 07/18/24 11:57 Sodium 138 Potassium 3.5 Chloride 105 Carbon Dioxide 19 L BUN 12 D Creatinine 0.93 Glucose 136 H Calcium 9.7 Liver Function 07/18/24 Range/Units 11:57 Total Bilirubin 0.6 (0.2-1.3) mg/dL AST 38 H (14-36) U/L ALT 24 (6-35) U/L Alkaline Phosphatase 72 (38-126) U/L Albumin 4.9 (3.5-5.1) g/dL Urine 07/18/24 Range/Units 12:22 Urine Color Yellow (Yellow) Urine Appearance Cloudy H (Clear) Urine pH 6.0 (5.0-9.0) Ur Specific [place] 1.022 (1.001-1.035) Urine Protein 1+ H (Negative) mg/dL Urine Glucose (UA) Negative (Negative) mg/dL Assessment and Plan Assessment and plan (1) Cyclical vomiting: Code(s): R11.15 - Cyclical vomiting syndrome unrelated to migraine Status: Acute Assessment and Plan: Brie Loyola Reglan IVF NPO (2) UTI (urinary tract infection): Code(s): N39.0 - Urinary tract infection, site not specified Status: Acute Assessment and Plan: Rocephin IVF (3) Pyelonephritis: Code(s): N12 - Tubulo-interstitial nephritis, not specified as acute or chronic Status: Acute Assessment and Plan: Sepsis bolus given in ED Lactic acidosis resolved (4) Anxiety: Code(s): F41.9 - Anxiety disorder, unspecified Status: Acute Assessment and Plan: Restart Seroquel and citalopram EKG to check QTC-444 Quality VTE Prophylaxis VTE prophylaxis: mechanical ordered Hospitalist MIPS Advance Care Plan I have confirmed that the patient's Advanced Care Plan is present, code status is documented, or surrogate decision maker is listed in patient medical record.: Yes Medication Reconciliation I have utilized all available resources to obtain, update and review the pa dungs current medications (includes all prescriptions, OTC, herbals, cannabis, and nutritional supplements).: Yes
--- NOTE | 2024-07-18 17:17 | ADMGEN ---
This patient, Kenyatta Moy, was admitted to 3 [facility] Surg Room 313-01. Patient/family oriented to hospital policies and general routines including ID bracelet, bed and alarms, visiting hours, pain management, procedures, bathroom and other care routines, personal items, smoking policy, room service/diet, and visiting hours. Information on how to activate the Rapid Response Team has been discussed. Patient/Family are encouraged to report perceived risks to care and to ask questions if they do not understand what they are told or what they should do.
[2024-07-18 17:27] VITALS: BP 134/88; PULSE 108; RESP 20; TEMP 36.3; O2SAT 98
[2024-07-18] MEDS: LACTATED RINGERS 1,000 ML 125 ML IV CONT (17:32)
--- NOTE | 2024-07-18 19:43 | ECG_ITS ---
Test Date: 2024-07-18 20:12:38 Measurements Intervals Beattie Rate: 118 P: 60 RI: 152 QRS: 62 QRSD: 76 T: 41 QT: 316 QTc: 444 Interpretive Statements SINUS TACHYCARDIA BASELINE ARTIFACT- V4 ABNORMAL ECG Compared to ECG 06/07/2024 08:37:30 ST (T wave) deviation now present HEART RATE HAS INCREASED Electronically Signed On 07-18-2024 20:14:38 CDT by Bertram Yousif D.O.
[2024-07-18] MEDS: TRIMETHOBENZAMIDE HCL 200 MG/2 ML VIAL IM (20:25)
[2024-07-18] MEDS: LORazepam INJ (*CRX) 2 MG/ML VIAL IV PUSH (21:21)
[2024-07-18] MEDS: KETOROLAC 15 MG/ML VIAL (*BKC) IV PUSH (21:39)
[2024-07-18 22:00] VITALS: BP 133/91; PULSE 121; RESP 16; TEMP 37; O2SAT 100
[2024-07-19] MEDS: LACTATED RINGERS 1,000 ML 125 ML IV CONT ×3 (01:38→20:52)
[2024-07-19] MEDS: LORazepam INJ (*CRX) 2 MG/ML VIAL 1 MG IV PUSH ×3 (02:43→20:53)
[2024-07-19] MEDS: KETOROLAC 15 MG/ML VIAL (*BKC) IV PUSH ×4 (03:13→21:10)
[2024-07-19] MEDS: METOCLOPRAMIDE HCL INJ 10 MG/2 ML VIAL IV PUSH ×4 (05:01→23:23)
[2024-07-19] MEDS: TRIMETHOBENZAMIDE HCL 200 MG/2 ML VIAL IM (05:42)
[2024-07-19 05:46] LABS: Basophils Percent Auto 0.2 % (0.2-1.2); Hemoglobin 10.8 g/dL (12.0-15.0); Immature Granulocyte Absolute 0.05 K/mm3 (0.00-0.031); Immature Granulocyte Percent A 0.4 % (0-0.5); Lymphocytes Absolute Auto 1.21 K/mm3 (0.9-3.2); Lymphocytes Percent Auto 10.5 % (18.3-44.2); Mean Corpuscular HGB Conc 33.8 g/dl (32-36); Mean Corpuscular Hemoglobin 30.9 pg (26-34); Mean Corpuscular Volume 91.4 fl (80-100); Mean Platelet Volume 10.3 fl (7.4-10.4); Monocytes Absolute Auto 1.2 K/mm3 (0.1-0.6); Neutrophils Absolute Auto 9.1 K/mm3 (1.3-6.7); Neutrophils Percent Auto 78.9 % (45.5-73.1); Platelet Count Result 212 k/mm3 (150-375); Red Cell Distribution Width 12.5 % (11.5-14.5); White Blood Count 11.5 K/mm3 (4.5-10.0)
[2024-07-19 05:58] LABS: Lactic Acid Reflex 0.6 mmol/L (0.7-2.0)
[2024-07-19 06:00] VITALS: BP 122/74; PULSE 89; RESP 16; TEMP 36.4; O2SAT 97
[2024-07-19 06:04] LABS: Anion Gap 9 mmol/L (4-12); Blood Urea Nitrogen 7 mg/dL (7-17); Calcium 8.8 mg/dL (8.4-10.2); Carbon Dioxide 22 mmol/L (22-30); Chloride 105 mmol/L (98-107); Estimated CRCL calculation 88 ml/min; Estimated Glomerular Filt Rate > 60; Glucose 95 mg/dL (65-110); Potassium 3.7 mmol/L (3.4-5.0); Sodium 136 mmol/L (137-145)
--- NOTE | 2024-07-19 08:17 | P.PNIM_ITS ---
Progress Note: A&P Assessment and Plan (1) UTI (urinary tract infection): Code(s): N39.0 - Urinary tract infection, site not specified Status: Acute Assessment and Plan: * UA: 1+ bacteria, 11-20 urine WBC, >100 urine RBC, trace leukocyte esterase, 3+ blood and ketones * UC obtained on 07/19 * previous micro reviewed * started on Rocephin (2) Pyelonephritis: Code(s): N12 - Tubulo-interstitial nephritis, not specified as acute or chronic Status: Ruled-out Assessment and Plan: * Secondary to Problem 1 * Upon admission: HR 121, WBC 17.5, no flank pain/CVA tenderness * Sepsis bolus given in ED * IV Rocephin * Urine culture pending * Does not meet criteria for pyelonephritis (3) Lactic acidosis: Code(s): E87.20 - Acidosis, unspecified Status: Acute Assessment and Plan: * Secondary to UTI/Pyelo * In ED: Lactic Acid 5.0 * Give fluid bolus in ED * Now resolved: Lactic acid 0.6 * Resolved (4) Cyclical vomiting: Code(s): R11.15 - Cyclical vomiting syndrome unrelated to migraine Status: Acute Assessment and Plan: * Ativan, Benadryl, Reglan * IVF * NPO - advance diet as tolerated * Likely secondary to underlying UTI/cannabinoid hyperemesis syndrome * Educate patient on importance of quitting marijuana. (5) Anxiety: Code(s): F41.9 - Anxiety disorder, unspecified Status: Acute Assessment and Plan: * Restart Seroquel and citalopram * EKG to check [id number]-444 Subjective Date/time seen: 07/19/24 08:17 Interval history: 23-year-old female well known to this hospital for cyclical vomiting and anxiety presents the hospital with vomiting nausea and diarrhea. Patient complains of abdominal pain feels like someone is punching her in her stomach. 07/19/2024 Pt sitting comfortably in the bed at time of examination. Still endorses some continued nausea but states it has much improved today versus yesterday. She is getting Reglan q6hr PRN for nausea and LR 125mls/hr for hydration. She still has not eaten today, will attempt to advance diet as tolerated for lunch and dinner with the hopes of discharge tomorrow if she continues to improve. Review of Systems Review of Systems: 12 systems were reviewed and are negativ e except for as per HPI. Exam Narrative: General: well appearing, appears stated age. HEENT: normocephalic, atraumatic. Mucous membranes moist. EOMI, PERRLA, bilateral sclera anicteric, no conjunctival injection. Neck supple without JVD, lymphadenopathy, or bruit. Respiratory: clear to ascultation bilaterally. No rales/rhonic/wheezes. Cardiovascular: Regular rate and rhythm, normal S1-S2 upon ascultation. No murmurs, rubs, or clicks. Abdomen: No abdominal tenderness upon palpitation. Soft, round, no pulsatile masses, nondistended. No rebound, no guarding. No CVA tenderness, no hepatosplenomegaly. Bowel sounds present to all four quadrants. No high pitch or tinkling sounds, resonant to percussion. Extremities: No cyanosis, clubbing, or edema present. Pulses are palpable 2/2. Active ROM to all four extremities. Neuro: Alert and orientated x 4. PERRLA. Cranial nerves 2-12 intact without focal deficit. Skin: Warm, dry, and intact, without rash, erythema, or lesion. Psych: pleasant, cooperative, normal speech, normal affect, no hallucinations, no dysarthia Objective Data Vital Signs Vital Signs: Vital Signs - 24 hr 07/18/24 11:38 07/18/24 13:00 07/18/24 14:45 Temperature 98 F Pulse Rate 80 96 88 Respiratory Rate 16 16 16 Blood Pressure 140/100 H 138/98 H 120/96 H Pulse Oximetry 100 97 98 Oxygen Delivery Room Air 07/18/24 17:27 07/18/24 20:00 07/18/24 22:00 Temperature 97.3 F L 98.6 F Pulse Rate 108 H 121 H Respiratory Rate 20 16 Blood Pressure 134/88 133/91 H Pulse Oximetry 98 100 Oxygen Delivery Room Air 07/19/24 06:00 Temperature 97.6 F Pulse Rate 89 Respiratory Rate 16 Blood Pressure 122/74 Pulse Oximetry 97 Oxygen Delivery Intake/Output Intake/Output: Intake & Output 07/16/24 07/17/24 07/18/24 07/19/24 23:59 23:59 23:59 23:59 Intake Total 2049 999 Balance 2049 1000 Meds/Results Medications: Active Medications Generic Name Dose Route Start Last Admin Trade Name Freq PRN Reason Stop Dose Admin Acetaminophen 650 mg 07/18/24 21:27 Acetaminophen 325 Mg Tablet PO Q4H PRN Mild Pain (1-3) or Fever Diphenhydramine HCl 12.5 mg 07/18/24 21:13 Diphenhydramine Hcl Inj 50 Mg/Ml Vial IV PUSH Q4H PRN Nausea And Vomiting Escitalopram Oxalate 10 mg 07/19/24 09:00 Escitalopram Oxalate 10 Mg Tablet PO DAILY CELINA Hydroxyzine Pamoate 25 mg 07/18/24 19:43 Hydroxyzine Pamoate 25 Mg Capsule PO TID PRN anxiety Lactated Ringer's 1,000 mls @ 125 mls/hr 07/18/24 16:00 07/19/24 01:38 Lr - Lactated Ringers Iv IV CONT 125 mls/hr .Q8H CELINA Administration Ceftriaxone Sodium 1 gm in 50 mls @ 100 mls/hr 07/19/24 13:00 Rocephin 1 Gm/Ns 50 Ml IVPB Q24H CELINA Ketorolac Tromethamine 15 mg 07/18/24 21:13 07/19/24 03:13 Ketorolac 15 Mg/Ml Vial (*Bkc) IV PUSH 15 mg Q6H PRN Administration Pain Rated 4-6 Lorazepam 1 mg 07/18/24 21:13 07/19/24 02:43 Lorazepam Inj (*Crx) 2 Mg/Ml Vial IV PUSH 1 mg Q6H PRN Administration Nausea And Vomiting Metoclopramide HCl 10 mg 07/19/24 00:00 07/19/24 05:01 Metoclopramide Hcl Inj 10 Mg/2 Ml Vial IV PUSH 10 mg Q6HR CELINA Administration Olanzapine 15 mg 07/18/24 21:00 07/19/24 00:08 Olanzapine 5 Mg Tablet PO Not Given [facility] Trimethobenzamide HCl 200 mg 07/18/24 20:05 07/19/24 05:42 Trimethobenzamide Hcl 200 Mg/2 Ml Vial IM 200 mg Q6H PRN Administration Nausea And Vomiting Radiology Results: ITS Impressions Abdomen/Pelvis CT 07/18/24 13:44 IMPRESSION: 1. 3.6 m right adnexal cyst and very small amount of likely physiologic free fluid in the cul-de-sac. No other acute intra-abdominal/pelvic process. 2. T-shaped IUD in expected position within the retroverted uterus. Labs Labs: Laboratory Results - last 24 hr 07/18/24 07/18/24 07/18/24 11:57 12:00 12:22 WBC 17.5 H RBC 4.07 L Hgb 12.4 Hct 37.1 MCV 91.2 MCH 30.5 MCHC 33.4 RDW 12.5 Plt Count 298 MPV 10.4 Immature Gran % (Auto) 0.3 Neut % (Auto) 70.5 Lymph % (Auto) 19.9 [place] % (Auto) 8.9 H Eos % (Auto) 0.0 Baso % (Auto) 0.4 Lymph # (Auto) 3.47 H [place] # (Auto) 1.6 H Eos # (Auto) 0.0 Baso # (Auto) 0.1 Abs Immat Gran (auto) 0.06 H Absolute Neuts (auto) 12.3 H Absolute Nucleated RBC 0.000 Nucleated RBC % 0.0 Sodium 138 Potassium 3.5 Chloride 105 Carbon Dioxide 19 L Anion Gap 14 H BUN 12 D Creatinine 0.93 Estim Creat Clear Calc Not Reportable Estimated GFR > 60 Glucose 136 H Lactic Acid 5.0 H* Calcium 9.7 Total Bilirubin 0.6 AST 38 H ALT 24 Alkaline Phosphatase 72 Total Protein 7.9 Albumin 4.9 Lipase 155 Urine Color Yellow Urine Appearance Cloudy H Urine pH 6.0 Ur Specific [place] 1.022 Urine Protein 1+ H Urine Glucose (UA) Negative Urine Ketones 3+ H Ur Blood (Man) 3+ H Urine Nitrate Negative Urine Bilirubin Negative Urine Urobilinogen 0.2 Leukocyte Esterase Rfl Trace H Urine RBC >100 H Urine WBC 11-20 H Ur Squamous Epith Cells Moderate Urine Bacteria 1+ H Urine Casts 0-2 POC Urine HCG, Qual Negative 07/18/24 07/19/24 14:16 05:27 WBC 11.5 H RBC 3.50 L Hgb 10.8 L Hct 32.0 L MCV 91.4 MCH 30.9 MCHC 33.8 RDW 12.5 Plt Count 212 MPV 10.3 Immature Gran % (Auto) 0.4 Neut % (Auto) 78.9 H Lymph % (Auto) 10.5 L [place] % (Auto) 10.0 H Eos % (Auto) 0.0 Baso % (Auto) 0.2 Lymph # (Auto) 1.21 [place] # (Auto) 1.2 H Eos # (Auto) 0.0 Baso # (Auto) 0.0 Abs Immat Gran (auto) 0.05 H Absolute Neuts (auto) 9.1 H Absolute Nucleated RBC 0.000 Nucleated RBC % 0.0 Sodium 136 L Potassium 3.7 Chloride 105 Carbon Dioxide 22 Anion Gap 9 BUN 7 D Creatinine 0.65 L Estim Creat Clear Calc 88 Estimated GFR > 60 Glucose 95 Lactic Acid 2.2 H 0.6 L Calcium 8.8 Total Bilirubin AST ALT Alkaline Phosphatase Total Protein Albumin Lipase Urine Color Urine Appearance Urine pH Ur Specific [place] Urine Protein Urine Glucose (UA) Urine Ketones Ur Blood (Man) Urine Nitrate Urine Bilirubin Urine Urobilinogen Leukocyte Esterase Rfl Urine RBC Urine WBC Ur Squamous Epith Cells Urine Bacteria Urine Casts POC Urine HCG, Qual Quality VTE Prophylaxis VTE prophylaxis: mechanical ordered
[2024-07-19 09:15] VITALS: O2SAT 97
[2024-07-19] MEDS: ESCITALOPRAM OXALATE 10 MG TABLET PO (09:15)
[2024-07-19 14:00] VITALS: BP 131/75; PULSE 78; RESP 14; TEMP 36.9; O2SAT 98
[2024-07-19] MEDS: diphenhydrAMINE HCl INJ 50 MG/ML VIAL 12.5 MG IV PUSH (17:58)
[2024-07-19] MEDS: HYDROmorphone HCL INJ (*CRX) 2 MG/ML VIAL 0.5 MG IV PUSH (18:49)
[2024-07-19 20:46] VITALS: BP 120/87; PULSE 108; RESP 20; TEMP 36.2; O2SAT 98
[2024-07-19 21:18] VITALS: O2SAT 98
[2024-07-19] MEDS: OLANZapine 5 MG TABLET 15 MG PO (21:50)
[2024-07-19] MEDS: SCOPOLAMINE 1 MG PATCH 1 PATCH TRANSDERM (22:37)
[2024-07-20] MEDS: KETOROLAC 15 MG/ML VIAL (*BKC) IV PUSH ×3 (02:41→15:45)
[2024-07-20] MEDS: LORazepam INJ (*CRX) 2 MG/ML VIAL 1 MG IV PUSH ×2 (02:48→20:09)
[2024-07-20] MEDS: diphenhydrAMINE HCl INJ 50 MG/ML VIAL 12.5 MG IV PUSH (05:13)
[2024-07-20] MEDS: METOCLOPRAMIDE HCL INJ 10 MG/2 ML VIAL IV PUSH ×4 (05:13→23:07)
[2024-07-20] MEDS: LACTATED RINGERS 1,000 ML 125 ML IV CONT ×2 (05:14→20:46)
[2024-07-20] MEDS: LIDOCAINE 5% PATCH 1 PATCH TRANSDERM ×2 (05:41→09:16)
[2024-07-20] MEDS: PROMETHAZINE HCL 25 MG/ML AMPUL IM (05:58)
[2024-07-20 06:00] VITALS: BP 128/86; PULSE 99; RESP 24; TEMP 36.6; O2SAT 91
[2024-07-20 08:53] LABS: Basophils Percent Auto 0.3 % (0.2-1.2); Hematocrit 36.7 % (37.0-47.0); Hemoglobin 11.9 g/dL (12.0-15.0); Immature Granulocyte Absolute 0.02 K/mm3 (0.00-0.031); Immature Granulocyte Percent A 0.3 % (0-0.5); Lymphocytes Absolute Auto 1.38 K/mm3 (0.9-3.2); Lymphocytes Percent Auto 18.4 % (18.3-44.2); Mean Corpuscular HGB Conc 32.4 g/dl (32-36); Mean Corpuscular Hemoglobin 30.8 pg (26-34); Mean Corpuscular Volume 95.1 fl (80-100); Monocytes Absolute Auto 0.5 K/mm3 (0.1-0.6); Monocytes Percent Auto 6.6 % (2.6-8.5); Neutrophils Absolute Auto 5.6 K/mm3 (1.3-6.7); Neutrophils Percent Auto 74.4 % (45.5-73.1); Platelet Count Result 230 k/mm3 (150-375); Red Blood Count 3.86 M/mm3 (4.2-5.4); Red Cell Distribution Width 12.3 % (11.5-14.5); White Blood Count 7.5 K/mm3 (4.5-10.0)
[2024-07-20] MEDS: ESCITALOPRAM OXALATE 10 MG TABLET PO (09:16)
[2024-07-20 09:45] LABS: Alanine Aminotransferase 19 U/L (6-35); Albumin Level 4.3 g/dL (3.5-5.1); Alkaline Phosphatase 54 U/L (38-126); Anion Gap 15 mmol/L (4-12); Aspartate Amino Transferase 42 U/L (14-36); Bilirubin,Total 0.4 mg/dL (0.2-1.3); Blood Urea Nitrogen 8 mg/dL (7-17); Calcium 9.1 mg/dL (8.4-10.2); Carbon Dioxide 19 mmol/L (22-30); Chloride 105 mmol/L (98-107); Estimated CRCL calculation 85 ml/min; Estimated Glomerular Filt Rate > 60; Glucose 70 mg/dL (65-110); Potassium 3.9 mmol/L (3.4-5.0); Sodium 139 mmol/L (137-145)
[2024-07-20 13:50] VITALS: BP 104/71; PULSE 93; RESP 16; TEMP 36.8; O2SAT 100
--- NOTE | 2024-07-20 15:29 | P.PNIM_ITS ---
Progress Note: A&P Assessment and Plan (1) UTI (urinary tract infection): Code(s): N39.0 - Urinary tract infection, site not specified Status: Acute Assessment and Plan: * UA: 1+ bacteria, 11-20 urine WBC, >100 urine RBC, trace leukocyte esterase, 3+ blood and ketones * UC obtained on 07/19 - still pending at this time * previous micro reviewed * started on Rocephin (2) Pyelonephritis: Code(s): N12 - Tubulo-interstitial nephritis, not specified as acute or chronic Status: Ruled-out Assessment and Plan: * Secondary to Problem 1 * Upon admission: HR 121, WBC 17.5, no flank pain/CVA tenderness * Sepsis bolus given in ED * IV Rocephin * Urine culture pending * Does not meet criteria for pyelonephritis (3) Lactic acidosis: Code(s): E87.20 - Acidosis, unspecified Status: Acute Assessment and Plan: * Secondary to UTI/Pyelo * In ED: Lactic Acid 5.0 * Give fluid bolus in ED * Now resolved: Lactic acid 0.6 * Resolved (4) Cyclical vomiting: Code(s): R11.15 - Cyclical vomiting syndrome unrelated to migraine Status: Acute Assessment and Plan: * Ativan, Benadryl, Reglan * IVF * Advance diet as tolerated * Likely secondary to underlying UTI/cannabinoid hyperemesis syndrome * Educate patient on importance of quitting marijuana. * Will consider GI consult if not able to tolerate anything PO tomorrow (5) Anxiety: Code(s): F41.9 - Anxiety disorder, unspecified Status: Acute Assessment and Plan: * Restart Seroquel and citalopram * EKG to check QTC-444 * Nursing staff reports intermittent episodes of extreme anxiety/nervousness * Will consider psychiatric consult if condition worsens Subjective Date/time seen: 07/20/24 15:29 Interval history: 23-year-old female well known to this hospital for cyclical vomiting and anxiety presents the hospital with vomiting nausea and diarrhea. Patient complains of abdominal pain feels like someone is punching her in her stomach. 07/20/2024 Pt sitting comfortably in the bed at time of examination. Still endorses nausea and intermittent periumbilical abdominal pain but no reproducible pain on exam. Still would like to get pt to intake PO without n/v before discharge. Not anxious at time of exam but nursing staff reports that the pt will get very anxious about her abdominal pain, but will calm down as fast as she gets anxious. Will attempt to advance diet tomorrow after pain and anxiety med have been given. Hopeful for discharge but will consider psych and/or GI consult if pt does not improve. Review of Systems Review of Systems: 12 systems were reviewed and are negativ e except for as per HPI. Exam Narrative: General: well appearing, appears stated age. HEENT: normocephalic, atraumatic. Mucous membranes moist. EOMI, PERRLA, bilateral sclera anicteric, no conjunctival injection. Neck supple without JVD, lymphadenopathy, or bruit. Respiratory: clear to ascultation bilaterally. No rales/rhonic/wheezes. Cardiovascular: Regular rate and rhythm, normal S1-S2 upon ascultation. No murmurs, rubs, or clicks. Abdomen: No abdominal tenderness upon palpitation. Soft, round, no pulsatile masses, nondistended. No rebound, no guarding. No CVA tenderness, no hepatosplenomegaly. Bowel sounds present to all four quadrants. No high pitch or tinkling sounds, resonant to percussion. Extremities: No cyanosis, clubbing, or edema present. Pulses are palpable 2/2. Active ROM to all four extremities. Neuro: Alert and orientated x 4. PERRLA. Cranial nerves 2-12 intact without focal deficit. Skin: Warm, dry, and intact, without rash, erythema, or lesion. Psych: pleasant, cooperative, normal speech, normal affect, no hallucinations, no dysarthia Objective Data Vital Signs Vital Signs: Vital Signs - 24 hr 07/19/24 20:00 07/19/24 20:46 07/19/24 21:18 Temperature 97.2 F L Pulse Rate 108 H Respiratory Rate 20 Blood Pressure 120/87 Pulse Oximetry 98 98 Oxygen Delivery Room Air Room Air 07/20/24 06:00 07/20/24 08:00 07/20/24 13:50 Temperature 97.9 F 98.3 F Pulse Rate 99 93 Respiratory Rate 24 H 16 Blood Pressure 128/86 104/71 Pulse Oximetry 91 100 Oxygen Delivery Room Air Intake/Output Intake/Output: Intake & Output 07/17/24 07/18/24 07/19/24 07/20/24 23:59 23:59 23:59 23:59 Intake Total 2049 305 1000 Balance 2049 305 1000 Meds/Results Medications: Active Medications Generic Name Dose Route Start Last Admin Trade Name Freq PRN Reason Stop Dose Admin Acetaminophen 650 mg 07/18/24 21:27 Acetaminophen 325 Mg Tablet PO Q4H PRN Mild Pain (1-3) or Fever Diphenhydramine HCl 12.5 mg 07/18/24 21:13 07/20/24 05:13 Diphenhydramine Hcl Inj 50 Mg/Ml Vial IV PUSH 12.5 mg Q4H PRN Administration Nausea And Vomiting Escitalopram Oxalate 10 mg 07/19/24 09:00 07/20/24 09:16 Escitalopram Oxalate 10 Mg Tablet PO 10 mg DAILY CELINA Administration Hydroxyzine Pamoate 25 mg 07/18/24 19:43 Hydroxyzine Pamoate 25 Mg Capsule PO TID PRN anxiety Lactated Ringer's 1,000 mls @ 125 mls/hr 07/18/24 16:00 07/20/24 05:14 Lr - Lactated Ringers Iv IV CONT 125 mls/hr .Q8H CELINA Administration Ceftriaxone Sodium 1 gm in 50 mls @ 100 mls/hr 07/19/24 13:00 07/20/24 14:15 Rocephin 1 Gm/Ns 50 Ml IVPB 100 mls/hr Q24H CELINA Administration Ketorolac Tromethamine 15 mg 07/18/24 21:13 07/20/24 09:14 Ketorolac 15 Mg/Ml Vial (*Bkc) IV PUSH 15 mg Q6H PRN Administration Pain Rated 4-6 Lidocaine 1 patch 07/20/24 05:30 07/20/24 09:16 Lidocaine 5% Patch TRANSDERM 1 patch DAILY CELINA Administration Lorazepam 1 mg 07/18/24 21:13 07/20/24 02:48 Lorazepam Inj (*Crx) 2 Mg/Ml Vial IV PUSH 1 mg Q6H PRN Administration Nausea And Vomiting Metoclopramide HCl 10 mg 07/19/24 00:00 07/20/24 14:14 Metoclopramide Hcl Inj 10 Mg/2 Ml Vial IV PUSH 10 mg Q6HR CELINA Administration Olanzapine 15 mg 07/18/24 21:00 07/19/24 21:50 Olanzapine 5 Mg Tablet PO 15 mg HS CELINA Administration Scopolamine 1 patch 07/19/24 22:20 07/19/24 22:37 Scopolamine 1 Mg Patch TRANSDERM 1 patch Q72HR CELINA Administration Trimethobenzamide HCl 200 mg 07/18/24 20:05 07/19/24 05:42 Trimethobenzamide Hcl 200 Mg/2 Ml Vial IM 200 mg Q6H PRN Administration Nausea And Vomiting Radiology Results: ITS Impressions Abdomen/Pelvis CT 07/18/24 13:44 IMPRESSION: 1. 3.6 m right adnexal cyst and very small amount of likely physiologic free fluid in the cul-de-sac. No other acute intra-abdominal/pelvic process. 2. T-shaped IUD in expected position within the retroverted uterus. Labs Labs: Laboratory Results - last 24 hr 06/09/25 08:34 WBC 7.5 RBC 3.86 L Hgb 11.9 L Hct 36.7 L MCV 95.1 MCH 30.8 MCHC 32.4 RDW 12.3 Plt Count 230 MPV 10.0 Immature Gran % (Auto) 0.3 Neut % (Auto) 74.4 H Lymph % (Auto) 18.4 [place] % (Auto) 6.6 Eos % (Auto) 0.0 Baso % (Auto) 0.3 Lymph # (Auto) 1.38 [place] # (Auto) 0.5 Eos # (Auto) 0.0 Baso # (Auto) 0.0 Abs Immat Gran (auto) 0.02 Absolute Neuts (auto) 5.6 Absolute Nucleated RBC 0.000 Nucleated RBC % 0.0 Sodium 139 Potassium 3.9 Chloride 105 Carbon Dioxide 19 L Anion Gap 15 H BUN 8 Creatinine 0.68 L Estim Creat Clear Calc 85 Estimated GFR > 60 Glucose 70 Calcium 9.1 Total Bilirubin 0.4 AST 42 H ALT 19 Alkaline Phosphatase 54 Total Protein 7.0 Albumin 4.3 Quality VTE Prophylaxis VTE prophylaxis: mechanical ordered
[2024-07-20] MEDS: HALOPERIDOL LACTATE 5 MG/ML VIAL IM (15:45)
[2024-07-20 19:49] VITALS: PULSE 102; RESP 20; O2SAT 98
[2024-07-20] MEDS: OLANZapine 5 MG TABLET 15 MG PO (20:46)
[2024-07-20 21:10] VITALS: BP 103/51; PULSE 91; RESP 14; TEMP 36.6; O2SAT 98
[2024-07-21] MEDS: METOCLOPRAMIDE HCL INJ 10 MG/2 ML VIAL IV PUSH (05:02)
[2024-07-21 05:29] VITALS: BP 127/85; PULSE 94; RESP 14; TEMP 36.7; O2SAT 98
[2024-07-21] MEDS: KETOROLAC 15 MG/ML VIAL (*BKC) IV PUSH (05:46)
[2024-07-21] MEDS: LORazepam INJ (*CRX) 2 MG/ML VIAL 1 MG IV PUSH (05:51)
[2024-07-21] MEDS: LACTATED RINGERS 1,000 ML 125 ML IV CONT (06:36)
[2024-07-21] MEDS: diphenhydrAMINE HCl INJ 50 MG/ML VIAL 12.5 MG IV PUSH (06:53)
[2024-07-21 07:37] LABS: Basophils Absolute Auto 0.1 K/mm3 (0.0-0.1); Basophils Percent Auto 0.5 % (0.2-1.2); Hematocrit 30.4 % (37.0-47.0); Hemoglobin 10.3 g/dL (12.0-15.0); Immature Granulocyte Absolute 0.04 K/mm3 (0.00-0.031); Immature Granulocyte Percent A 0.4 % (0-0.5); Lymphocytes Absolute Auto 1.44 K/mm3 (0.9-3.2); Lymphocytes Percent Auto 14.7 % (18.3-44.2); Mean Corpuscular HGB Conc 33.9 g/dl (32-36); Mean Corpuscular Hemoglobin 30.8 pg (26-34); Mean Platelet Volume 9.7 fl (7.4-10.4); Monocytes Absolute Auto 0.8 K/mm3 (0.1-0.6); Monocytes Percent Auto 8.4 % (2.6-8.5); Neutrophils Absolute Auto 7.4 K/mm3 (1.3-6.7); Platelet Count Result 213 k/mm3 (150-375); Red Blood Count 3.34 M/mm3 (4.2-5.4); Red Cell Distribution Width 12.5 % (11.5-14.5); White Blood Count 9.8 K/mm3 (4.5-10.0)
[2024-07-21 08:18] LABS: Alanine Aminotransferase 14 U/L (6-35); Albumin Level 3.6 g/dL (3.5-5.1); Alkaline Phosphatase 48 U/L (38-126); Anion Gap 9 mmol/L (4-12); Aspartate Amino Transferase 38 U/L (14-36); Bilirubin,Total 0.3 mg/dL (0.2-1.3); Blood Urea Nitrogen 8 mg/dL (7-17); Calcium 8.6 mg/dL (8.4-10.2); Carbon Dioxide 23 mmol/L (22-30); Chloride 108 mmol/L (98-107); Estimated CRCL calculation 77 ml/min; Estimated Glomerular Filt Rate > 60; Glucose 82 mg/dL (65-110); Potassium 3.5 mmol/L (3.4-5.0); Sodium 140 mmol/L (137-145)
--- NOTE | 2024-07-21 09:33 | P.DS_ITS ---
DS: Admitting Diagnosis Discharge Date 07/21/2024 Admitting Diagnosis Nausea/vomiting/abdominal pain DS: Discharge Diagnosis Discharge Diagnosis (1) UTI (urinary tract infection): Code(s): N39.0 - Urinary tract infection, site not specified Status: Ruled-out (2) Pyelonephritis: Code(s): N12 - Tubulo-interstitial nephritis, not specified as acute or chronic Status: Ruled-out (3) Lactic acidosis: Code(s): E87.20 - Acidosis, unspecified Status: Acute (4) Cyclical vomiting: Code(s): R11.15 - Cyclical vomiting syndrome unrelated to migraine Status: Acute (5) Anxiety: Code(s): F41.9 - Anxiety disorder, unspecified Status: Acute DS: Summary Hospital Course Reason for hospitalization: Nausea vomiting diarrhea Hospital Course: 23-year-old female well known to this hospital for cyclical vomiting and anxiety presents the hospital with vomiting nausea and diarrhea. Patient complains of abdominal pain feels like someone is punching her in her stomach. She states that she is very nauseous and cannot keep anything down. She denies fever chills. Lab work shows leukocytosis at 17.5 carbon dioxide 19 anion gap of 14 lactic acid of 5.0 followed by 2.2. UA cloudy with trace leukocyte esterase, Over 100 rbc's and 11-[address] abdomen no acute findings. 07/19 she continued to endorse some nausea but reported that it had improved versus the day of admission. She was getting Reglan every 6 hours for nausea and IV fluids for rehydration. She was not able to eat or drink anything without vomiting on 07/19 through 07/20. Patient's urine also tested for urinary tract infection and it did show 1+ bacteria, 11 through 20 urine WBC and trace leukocyte esterase. Urine culture was obtained and the patient was treated empirically for Rocephin, however the urine culture resulted negative for any growth and the patient was subsequently discontinued off antibiotics. Patient's symptoms continued to improve over hospitalization. Patient has a history of anxiety and throughout hospitalization had several episodes of neuro status and agitation. Likely cyclic in nature, with her abdominal pain causing her to feel anxious, and her anxiety subsequently causing her to have worsened abdominal pain/nausea. Patient received 1 dose of Haldol on 07/20 and subsequently had significantly improved anxiety/agitation and abdominal pain from that point on. CT scan of the abdomen showed 3.6 m right adnexal cyst and very small amount of likely physiologic free fluid in the cul-de-sac. No other acute intra- abdominal/pelvic process. T-shaped IUD in expected position within the retroverted uterus. Throughout hospitalization, blood work , physical exam and vital signs remained stable. On 07/21 she was able to eat without any nausea/vomiting or abdominal pain. Patient can be safely discharged at this time with close follow-up with GI and her primary care physician. Patient is amenable to this plan. Plan discharge home this time. Status at Discharge Functional status at discharge: independent ambulation Time Spent with Patient Time attestation: Total time spent providing and/or coordinating discharge services: 35 Exam Narrative: General: well appearing, appears stated age. HEENT: normocephalic, atraumatic. Mucous membranes moist. EOMI, PERRLA, bilateral sclera anicteric, no conjunctival injection. Neck supple without JVD, lymphadenopathy, or bruit. Respiratory: clear to ascultation bilaterally. No rales/rhonic/wheezes. Cardiovascular: Regular rate and rhythm, normal S1-S2 upon ascultation. No murmurs, rubs, or clicks. Abdomen: No abdominal tenderness upon palpitation. Soft, round, no pulsatile masses, nondistended. No rebound, no guarding. No CVA tenderness, no hepatosplenomegaly. Bowel sounds present to all four quadrants. No high pitch or tinkling sounds, resonant to percussion. Extremities: No cyanosis, clubbing, or edema present. Pulses are palpable 2/2. Active ROM to all four extremities. Neuro: Alert and orientated x 4. PERRLA. Cranial nerves 2-12 intact without focal deficit. Skin: Warm, dry, and intact, without rash, erythema, or lesion. Psych: pleasant, cooperative, normal speech, normal affect, no hallucinations, no dysarthia DS: Data Data Completed and Pending Labs on day of discharge: Labs from last 24 hours 07/21/24 07/20/24 07:31 08:34 WBC 9.8 RBC 3.34 L Hgb 10.3 L Hct 30.4 L MCV 91.0 MCH 30.8 MCHC 33.9 RDW 12.5 Plt Count 213 MPV 9.7 Immature Gran % (Auto) 0.4 Neut % (Auto) 76.0 H Lymph % (Auto) 14.7 L [place] % (Auto) 8.4 Eos % (Auto) 0.0 Baso % (Auto) 0.5 Lymph # (Auto) 1.44 [place] # (Auto) 0.8 H Eos # (Auto) 0.0 Baso # (Auto) 0.1 Abs Immat Gran (auto) 0.04 H Absolute Neuts (auto) 7.4 H Absolute Nucleated RBC 0.000 Nucleated RBC % 0.0 Sodium 140 139 Potassium 3.5 3.9 Chloride 108 H 105 Carbon Dioxide 23 19 L Anion Gap 9 15 H BUN 8 8 Creatinine 0.76 0.68 L Estim Creat Clear Calc 77 85 Estimated GFR > 60 > 60 Glucose 82 70 Calcium 8.6 9.1 Total Bilirubin 0.3 0.4 AST 38 H 42 H ALT 14 19 Alkaline Phosphatase 48 54 Total Protein 6.0 L 7.0 Albumin 3.6 4.3 Imaging Radiologist's impression: CT abdomen pelvis wo con: IMPRESSION: 1. 3.6 m right adnexal cyst and very small amount of likely physiologic free fluid in the cul-de-sac. No other acute intra-abdominal/pelvic process. 2. T-shaped IUD in expected position within the retroverted uterus. Discharge Plan Discharge Attending physician on discharge: Gaurav Donaldson Consulting providers: Blake Taylro Discharging Clinician: Blake Taylor Anticipated Discharge Date/Time: 07/21/24 09:32 Patient Disposition: Home Activity: as tolerated Diet: as tolerated Discharge Instructions: Discharge disposition: Stable Take medications as prescribed Monitor blood pressures Take caution while standing, rising, or moving Change positions slowly taking a break between each position change If you standing feel dizzy sit back down and take a break Encouraged to continue with yearly vaccinations Return to the emergency department if he developed sudden shortness of breath, chest pain, nausea, vomiting, upset stomach or intractable diarrhea Return to the emergency department if you develop fever greater than 101.5 Follow-up with the primary care physician within 1-2 weeks Follow up with the GI, or gastroenterology, doctor this week for further evaluation. Thank you for [facility] for your healthcare needs Patient Instructions: Antibiotic Form Patient Language: [place]i Stand Alone Forms: General Discharge Information, Work/School Release IP Follow-up/Referrals: PHYSICIAN NOT ON STAFF,NONSTAFF [Primary Care Provider] - Ankush De Jesus MD [Physician] - Discharge Medications: Continued olanzapine 15 mg tablet 15 tablet PO DAILY hydroxyzine pamoate [Vistaril] 25 mg capsule 25 mg PO TID PRN (Reason: anxiety) Qty: 20 0RF escitalopram oxalate 10 mg tablet 10 mg PO DAILY Date of admission: 07/20/24 15:55 Primary Care Provider: PHYSICIAN NOT ON STAFF,NONSTAFF Admitting Provider: Gaurav Donaldson Attending physician on admission: Gaurav Donaldson Condition: Stable Quality VTE Prophylaxis VTE prophylaxis: mechanical ordered
[2024-07-21] MEDS: ESCITALOPRAM OXALATE 10 MG TABLET PO (09:37)
[2024-07-21] MEDS: LIDOCAINE 5% PATCH 1 PATCH TRANSDERM (09:38)
== END 2024-07-21 10:30 | disposition home or self-care (01) | DRG 690 ==
LOC: ANHED 13:27 → ANH2MED 16:34 → ANH3MEDSUR 16:47
PROVIDERS: Nurse Practitioner Gerontology; Admitting Provider Family Medicine; Emergency Provider Emergency Medicine; Visit Provider Physician Assistant
DX: N39.0 Urinary tract infection, site not specified (principal); E87.20 Acidosis, unspecified; N12 Tubulo-interstitial nephritis, not specified as acute or chronic; N83.209 Unspecified ovarian cyst, unspecified side; R11.15 Cyclical vomiting syndrome unrelated to migraine; F41.9 Anxiety disorder, unspecified; F32.A Depression, unspecified
CPT/HCPCS: 36415; 74176; 80048; 80053; 81001; 81025; 83605; 83690; 85025; 87086; 93005; 96361; 96365; 96372; 96374; 96375; 96376; 99285; A9270; G0378; J0696; J1171; J1200; J1630; J1885; J2060; J2405; J2550; J2765; J3250; J7030; J7120

== ENCOUNTER 2024-07-27 14:40 | Emergency (ER) | payer OTHER, SELFPAY ==
[2024-07-27] VITALS (8 sets, daily range): BP systolic 103–138; BP diastolic 60–94; PULSE 83–138; RESP 14–20; TEMP 36.2–36.8; O2SAT 95–100
--- NOTE | ~2024-07-27 | CT_ITS ---
Subsequently CLINICAL INDICATION: Upper abdominal pain COMPARISON: 07/18/2024. TECHNIQUE: Multiple contiguous axial images of the abdomen and pelvis were performed following the ad ministration of with 100 mL Omnipaque-350 intravenous contrast The dose-length product (DLP) was 165.01 mGy-cm. Automated exposure control and iterative reconstruction technique were employed. FINDINGS/OBSERVATIONS: Visualized lower thorax: The bilateral lung bases are clear. The heart is of normal size, without pericardial effusion. Liver: The liver demonstrates homogeneous enhancement and is not enlarged. Gallbladder and biliary system: The gallbladder is only minimally distended, and otherwise unremarkable. Pancreas: The pancreas enhances homogeneously without ductal dilatation. Spleen: The spleen enhances homogeneously and is not enlarged . Kidneys: The bilateral kidneys enhance and excrete symmetrically without hydronephrosis or renal calculi. Adrenal glands: Unremarkable. Gastrointestinal tract: Fecal stasis within the colon. Appendix: The air-filled appendix is of normal caliber (axial series, images 112 through 124). Vasculature: Unremarkable. Lymph nodes: No pathologically enlarged or morphologically suspicious lymph nodes within the retroperitoneum or at the root of the mesentery. Pelvic structures: The bladder is decompressed, limiting its evaluation The uterus is retroverted and retroflexed. Intrauterine device is present. Redemonstration of a right adnexal cyst measuring 3.4 x 2.9 cm, unchanged from prior. Body wall and musculoskeletal: No significant degenerative disease within the lower thoracic or lumbosacral spine. IMPRESSION: No acute pathology detected within the abdomen or pelvis, as detailed above. Reviewed, dictated and finalized at location A.
--- OUTSIDE RECORDS SUMMARY | 2024-07-27 15:48 | XMS_ITS | Encounter Summary ---
Author Organization [facility] Address [address] [facility] [address] Care Team Providers Care Manager Sales And Marketing Name Role Phone Mellissa Jiménez MD Primary Care Provider [phone] Ronel Thornton DO Primary Care Provider [phone] Daphnie Gillespie MD Unavailable Juliana Peralta HABILITATION ASSISTANT Unavailable [phone] Juliana Peralta Unavailable [phone] Ronel Thornton DO Unavailable [phone] Kenyatta Taylor RN Unavailable Tiago Lew Unavailable [phone] Encounter Details Date Type Department Care Team (Late st Contact Info) Description 07/28/2020 Telephone [facility] Pediatrics - Pulmonology [address] [place] [address] Bessie Erwin Social History Tobacco Use Types Packs/Day Years Used Date Smoking Tobacco: Never Smokeless Tobacco: Never Alcohol Use Standard Drinks/Week Comments No 0 (1 standard drink = 0.6 oz pur e alcohol) Comments No Sex and Gender Information Value Date Recorded Sex Assigned at Not on file Legal Sex Female 6:25 PM FACING BASTER Gender Identity Not on file Sexual Orientation [...] Assessment Author No 04/08/2020 1:15 PM Rosetta rDew RN * Does person have difficulty dressing/bathing? [...] PM CDT Mom called regarding not eating [phone] Marla Gillespie documented in this encounter Plan of Treatment Upcoming Encounters Date Type Department Care Team (Late st Contact Info) Description 01/20/2025 8:20 AM FACING BASTER Office Visit [facility] [address] [address] Ronel Thornton DO [address] [place] [address] documented as of this encounter Visit Diagnoses Not on filedocumented in this encounter Additional Health Concerns Infection Onset Date Last Indicated Resolved Time COVID-19 Under Investigation 08/10/2021 08/10/2021 08/10/2021 2:59 AM CDT documented as of this encounter Care Teams Manager Sales And Marketing Relationship Specialty Start Date End Date Mellissa Jiménez MD [address] [place] [address] [place] [address] PCP - General Family Medicine 04/25/20 03/17/23 Ronel Thornton DO [address] [place], [place] [address], [place] [address] PCP - General Family Medicine 03/18/23 Daphnie Gillespie MD [address] [place] [phone] PCP - Attributed-[facility] STL 02/11/23 04/11/23 Ronel Thornton DO [address] [place], [place] [address], [place] [address] PCP - Attributed-[facility] STL 04/12/23 Juliana Peralta MSW Outpatient Prepared Foods Supervisor Care Management 04/24/2304/11 Juliana Peralta MSW Outpatient Prepared Foods Supervisor Care Management 04/30/2304/12 Kenyatta Taylor RN [address] [address] Research Program AssistantDie Trimmer 09/02/23 10/04/23 Tiago Lew Care Coordination Specialist Care Management 09/26/23 11/10/23 documented as of this encounter
--- OUTSIDE RECORDS SUMMARY | 2024-07-27 15:48 | XMS_ITS | Clinical Summary ---
Author Organization [facility] Address [address] [place] [address] Phone Care Team Providers Care Venetian Blind Cleaner Name Role Phone Mellissa Jiménez MD Primary Care Provider + Allergies No known active allergies Active Problems Problem Noted Date Diagnosed Date Drug overdose, intentional 04/20/2023 Seizures 04/20/2023 Acute respiratory failure 04/20/2023 Social History Tobacco Use Types Packs/Day Years Used Date Smoking Tobacco: Never Assessed Comments Unknown Sex and Gender Information Value Date Recorded Sex Assigned at Not on file Legal Sex Female 10:44 PM GUT PULLER Gender Identity Not on file Sexual Orientation [...] 52.2 kg (115 lb) 04/20/2023 2:30 AM GUT PULLER Height 152.4 cm (5') 04/20/2023 2:30 AM GUT PULLER Body Mass Index 22.46 04/20/2023 2:30 AM GUT PULLER Plan of Treatment Health Maintenance Due Date Last Done Comments CHLAMYDIA SCREENING (ANNUAL) 11-24 YEARS 2013 HPV VACCINES (1 - 3-dose series) 2017 CERVICAL CANCER SCREENING 08/17/2023 HPV/Cotest (21-29) 08/17/2023 PAP SMEAR 08/17/2023 INFLUENZA VACCINE (#1) 2023 01/25/2022, 2020 COVID-19 Vaccine (2023-2 5 season) 2023 07/26/2020, 07/03/2020 DTAP/TDAP/TD VACCINES (7 - T d or Tdap) 12/16/2023 12/15/2013, 07/08/2007, 02/22/2004, Additional history exists HEPATITIS B VACCINES Completed 02/22/2004, 06/09/2003, 02/22/2003, Additional history [place] [address] [facility] [id number] OUT OF NETWORK Advance Directives For more information, please contact: [phone] * Full Code (Latest Code Status on File) Date Activated Date Inactivated Comments 04/20/2023 2:32 AM 04/21/2023 4:11 PM Care Teams Venetian Blind Cleaner Relationship Specialty Start Date End Date Mellissa Jiménez MD [address] [place] [phone] PCP - General Family Practice 04/20/23
--- OUTSIDE RECORDS SUMMARY | 2024-07-27 15:48 | XMS_ITS | Encounter Summary ---
Author Organization [facility] Address [address] [facility] [place] [address] Care Team Providers Care Position Clerk Name Role Phone Mellissa Jiménez MD Primary Care Provider [phone] Ronel Thornton DO Primary Care Provider [phone] Daphnie Gillespie MD Unavailable Juliana Peralta BATTERY CONTAINER INSPECTOR Unavailable [phone] Juliana Peralta BATTERY CONTAINER INSPECTOR Unavailable [phone] Ronel Thornton DO Unavailable [phone] Kenyatta Taylor RN Unavailable [phone] Tiago Lew Unavailable [phone] Reason for Visit * Reason Onset Date Comments Eating disorder 08/04/2020 Encounter Details Date Type Department Care Team (Late st Contact Info) Description 08/04/2020 Telephone [facility] Occupational Health And Safety Adviser [address] [place] [address] Flor Martinez, INFORMATION CONSULTANT Eating disorder Social History Tobacco Use Types Packs/Day Years Used Date Smoking Tobacco: Never Smokeless Tobacco: Never Alcohol Use Standard Drinks/Week Comments No 0 (1 standard drink = 0.6 oz pur e alcohol) Comments No Sex and Gender Information Value Date Recorded Sex Assigned at Not on file Legal Sex Female 6:25 PM TECHNICAL CUSTOMER SUPPORT SPECIALIST Gender Identity Not on file Sexual [...] calls with Kenyatta's mother Esperanza and [facility] this week regarding Kenyatta's relapse, and mother's belief that she needs to be admitted to [facility]. Spoke with mother again this a.m, and they have a phone intake assessment with [facility] next SaturdayAugust 08. documented in this encounter Plan of Treatment Upcoming Encounters Date Type Department Care Team (Late st Contact Info) Description 01/20/2025 8:20 AM TECHNICAL CUSTOMER SUPPORT SPECIALIST Office Visit [facility] - Family Medicine [address] [place] [address] Ronel Thornton DO [address] [place] [address] documented as of this encounter Visit Diagnoses Not on filedocumented in this encounter Additional Health Concerns Infection Onset Date Last Indicated Resolved Time COVID-19 Under Investigation 08/10/2021 08/10/2021 08/10/2021 2:59 AM CDT documented as of this encounter Care Teams Position Clerk Relationship Specialty Start Date End Date Mellissa Jiménez MD [address] [place] [address] [place] [address] PCP - General Family Medicine 04/25/20 03/17/23 Ronel Thornton DO [address] [place] [address] PCP - General Family Medicine 03/18/23 Daphnie Gillespie MD [address] [place] [address] PCP - Attributed-[facility]HP STL 02/11/23 04/11/23 Ronel Thornton DO [address] [place] [address] PCP - Attributed-[facility]HP STL 04/12/23 Juliana Peralta MSW Outpatient Board Certified Family Physician Care Management 04/24/2304/11 Juliana Peralta MSW Outpatient Board Certified Family Physician Care Management 04/30/2304/12 Kenyatta Taylor RN [address] [address] Gauge And Instrument InspectorNewspaper Photographer 09/02/23 10/04/23 Tiago Lew Care Coordination Specialist Care Management 09/26/23 11/10/23 documented as of this encounter
--- OUTSIDE RECORDS SUMMARY | 2024-07-27 15:48 | XMS_ITS | Encounter Summary ---
Author Organization [facility] Address [address] [facility] [address] Care Team Providers Care Bliss Press Operator Name Role Phone Mellissa Jiménez MD Primary Care Provider [phone] Ronel Thornton DO Primary Care Provider Daphnie Gillespie MD Unavailable Juliana Peralta VENEER SUPERVISOR Unavailable [phone] Juliana Peralta VENEER SUPERVISOR Unavailable [phone] Ronel Thornton DO Unavailable [phone] Kenyatta Taylor RN Unavailable Tiago Lew Unavailable [phone] Reason for Visit * Reason Onset Date Comments Forms/questionnaires 01/23/2021 Encounter Details Date Type Department Care Team (Late st Contact Info) Description 01/23/2021 Telephone [facility] Pediatrics - Surgery [address] [place] [address] Daphnie Gillespie MD [address] [place] [phone] Forms/questionnaires Social History Tobacco Use Types [...] on file Legal Sex Female 6:25 PM SALES PROMOTION REPRESENTATIVE Gender Identity Not on file Sexual Orientation Not on file COVID-19 Exposure Response Date Recorded In the last month, have you been in contact with someone who was confirmed or suspected to have Coronavirus / COVID-19? No / Unsure 01/24/2021 11:47 AM SALES PROMOTION REPRESENTATIVE documented as of this encounter Functional Status [...] wanted to know if it was received. S PROMOTION REPRESENTATIVE documented in this encounter Plan of Treatment Upcoming Encounters Date Type Department Care Team (Late st Contact Info) Description 01/20/2025 8:20 AM SALES PROMOTION REPRESENTATIVE Office Visit [facility] - Family Medicine [address] [place] [phone] Ronel Thornton DO [address] [place] [phone] documented as of this encounter Visit Diagnoses Not on filedocumented in this encounter Additional Health Concerns Infection Onset Date Last Indicated Resolved Time COVID-19 Under Investigation 08/10/2021 08/10/2021 08/10/2021 2:59 AM CDT documented as of this encounter Care Teams Bliss Press Operator Relationship Specialty Start Date End Date Mellissa Jiménez MD [address] [place] [address] [place] [address] PCP - General Family Medicine 04/25/20 03/17/23 Ronel Thornton DO [address] [place] [address] PCP - General Family Medicine 03/18/23 Daphnie Gillespie MD [address] [place] [phone] PCP - Attributed-[facility] EHP STL 02/11/23 04/11/23 Ronel Thornton DO [address] [place] [address] PCP - Attributed-[facility]HP STL 04/12/23 Juliana Peralta MSW Outpatient Risk Control Consultant Care Management 04/24/2304/11 Juliana Peralta MSW Outpatient Risk Control Consultant Care Management 04/30/2304/12 Kenyatta Taylor RN [address] [address] Journeyman GlazierCab Station Attendant 09/02/23 10/04/23 Tiago Lew Care Coordination Specialist Care Management 09/26/23 11/10/23 documented as of this encounter
--- OUTSIDE RECORDS SUMMARY | 2024-07-27 15:48 | XMS_ITS | Encounter Summary ---
Author Organization [facility] Address [address] [place] [address] Care Team Providers Care Back Up Machine Operator Name Role Phone Mellissa Jiménez MD Primary Care Provider [phone] Ronel Thornton DO Primary Care Provider [phone] Daphnie Gillespie MD Unavailable Juliana Peralta PASTER HAT LINING Unavailable [phone] Juliana Peralta PASTER HAT LINING Unavailable [phone] Ronel Thornton DO Unavailable Kenyatta Taylor RN Unavailable [phone] Tiago Lew Unavailable [phone] Reason for Visit * Reason Onset Date Comments Appointment 10/05/2020 Contraceptive management 10/05/2020 Encounter Details Date Type Department Care Team (Late st Contact Info) Description 10/05/2020 Telephone [facility] [address] [place], [place] [phone] [place] [address] [place] [address] Appointment; Contraceptive management Social History Tobacco Use Types Packs/Day Years Used Date Smoking Tobacco: Never Smokeless Tobacco: Never Alcohol Use Standard Drinks/Week Comments No 0 (1 standard drink = 0.6 oz pur e alcohol) Comments No Sex and Gender Information Value Date Recorded Sex Assigned at Not on file Legal Sex Female 6:25 PM SUPERVISOR UNLOADING Gender Identity Not on file Sexual Orientation [...] the office yet to get scheduled. CB# [phone] documented in this encounter Plan of Treatment Upcoming Encounters Date Type Department Care Team (Late st Contact Info) Description 01/20/2025 8:20 AM SUPERVISOR UNLOADING Office Visit [facility] Family Medicine [address] [place] [address] Ronel Thornton DO [address] [place] [address] documented as of this encounter Visit Diagnoses Not on filedocumented in this encounter Additional Health Concerns Infection Onset Date Last Indicated Resolved Time COVID-19 Under Investigation 08/10/2021 08/10/2021 08/10/2021 2:59 AM CDT documented as of this encounter Care Teams Back Up Machine Operator Relationship Specialty Start Date End Date Mellissa Jiménez MD [address] [place] [address] [place] [address] PCP - General Family Medicine 04/25/20 03/17/23 Ronel Thornton DO [address] [place] [address] PCP - General Family Medicine 03/18/23 [place] [address] [place] [phone] PCP - Attributed-[facility] EHP STL 02/11/23 04/11/23 Ronel Thornton DO [address] [place] [address] PCP - Attributed-[facility]HP STL 04/12/23 Juliana Peralta MSW Outpatient Appliance Mechanic Care Management 04/24/2304/11 Juliana Peralta MSW Outpatient Appliance Mechanic Care Management 04/30/2304/12 Kenyatta Taylor RN [address] [address] Household Appliances SalespersonCompound Machine Operator 09/02/23 10/04/23 Tiago Lew Care Coordination Specialist Care Management 09/26/23 11/10/23 documented as of this encounter
--- OUTSIDE RECORDS SUMMARY | 2024-07-27 15:48 | XMS_ITS | Clinical Summary ---
Author Organization [facility] Address [address] [place] [address] Care Team Providers Care Veneer Glue Jointer Feedback Name Role Phone Ronel Thornton DO Primary Care Provider [phone] Ronel Thornton DO Unavailable [phone] Source Comments [facility],non-owned Affiliates and Associated Physician Practices is amultiple site organization consisting of ambulatory clinics and hospital sitesin [place], [place] and [place]. This disclosure is being madepursuant to the Care Everywhere program and may not contain all information available regarding this patient. Last updated 17.[facility] Allergies No known active allergies Medications * [...] 01/18/2020 Assessment & Plan (01/08/2021 3:06 PM MANAGEMENT SPECIALIST): Assessment: Major depressive disorder, generalized anxiety disorder and substance abuse disorder. Plan: - klonopin and neurontin are all habit forming, concerns they are addictive, plan to discuss usp goal of weaning as outpatient - must stop all alcohol and MJ - Increased Prozac to 40 - Increased zyprexa to 15 - Melatonin 6mg QHS for sleep - avoid narcotics - taper off zyprexa as outpatient per psychiatry recs Assessment & Plan (01/07/2021 4:50 PM MANAGEMENT SPECIALIST): Assessment: Major depressive disorder, generalized anxiety disorder and substance abuse disorder. Plan: - klonopin and neurontin are all habit forming, concerns they are addictive, plan to discuss usp goal of weaning as outpatient - must stop all alcohol and MJ - Increased Prozac to 40 - Increased zyprexa to 15 - Melatonin 6mg QHS for sleep - avoid narcotics - taper off zyprexa as outpatient per psychiatry recs Assessment & Plan (01/06/2021 5:55 PM MANAGEMENT SPECIALIST): Assessment: Major depressive disorder, generalized anxiety disorder and substance abuse disorder. Plan: - klonopin and neurontin are all habit forming, concerns they are addictive, plan to discuss usp goal of weaning as outpatient - must [...] slowly. Assessment & Plan (04/07/2020 6:45 PM MANAGEMENT SPECIALIST): Assessment: Hx of major depressive disorder and generalized anxiety disorder. Pt has been seen by psychiatry and psychology, now improved since starting/optimizing zyprexa QHS, clonazepam TID, and prozac QD. Plan: - Prozac 30 mg QD (dose of 30 mg started on 03/09/20, Prozac initially began 02/07) - Zyprexa 5 mg QHS - Klonopin 0.5mg TID Assessment & Plan (04/06/2020 3:54 PM MANAGEMENT SPECIALIST): Assessment: Hx of major depressive disorder [...] TID Assessment & Plan (04/05/2020 10:49 AM MANAGEMENT SPECIALIST): Assessment: Hx of major depressive disorder [...] TID Assessment & Plan (04/04/2020 10:23 AM MANAGEMENT SPECIALIST): Assessment: Hx of major depressive disorder [...] TID Assessment & Plan (04/03/2020 6:30 PM MANAGEMENT SPECIALIST): Assessment: Hx of major depressive disorder [...] TID Assessment & Plan (04/01/2020 11:15 AM MANAGEMENT SPECIALIST): Assessment: Hx of major depressive disorder [...] dose) Assessment & Plan (03/31/2020 10:07 AM MANAGEMENT SPECIALIST): Assessment: Hx of major depressive disorder [...] dose) Assessment & Plan (03/30/2020 2:24 PM MANAGEMENT SPECIALIST): Assessment: Hx of major depressive disorder and generalized anxiety disorder. Pt seen by psychiatry on admission and was started elavil, but continued to have anxiety. Elavil was discontinued due to persistent tachycardia and hypotension. [facility], she was started on zyprexa QHS, [...] dose) Assessment & Plan (03/29/2020 6:50 AM MANAGEMENT SPECIALIST): Assessment: Hx of major depressive disorder [...] dose) Assessment & Plan (03/27/2020 10:30 AM MANAGEMENT SPECIALIST): Assessment: Hx of major depressive disorder [...] dose) Assessment & Plan (03/26/2020 11:15 AM MANAGEMENT SPECIALIST): Assessment: Hx of major depressive disorder [...] dose) Assessment & Plan (03/25/2020 8:58 AM MANAGEMENT SPECIALIST): Assessment: Hx of major depressive disorder [...] dose) Assessment & Plan (03/24/2020 6:44 AM MANAGEMENT SPECIALIST): Assessment: Hx of major depressive disorder [...] dose) Assessment & Plan (03/23/2020 12:19 PM MANAGEMENT SPECIALIST): Assessment: Hx of major depressive disorder [...] dose) Assessment & Plan (03/22/2020 10:47 AM MANAGEMENT SPECIALIST): Assessment: Hx of major depressive disorder [...] recommendations) Assessment & Plan (03/21/2020 3:11 PM MANAGEMENT SPECIALIST): Assessment: Hx of major depressive disorder [...] mg. Assessment & Plan (03/20/2020 10:31 AM MANAGEMENT SPECIALIST): Assessment: Hx of major depressive disorder [...] 03/21. Assessment & Plan (03/19/2020 10:38 AM MANAGEMENT SPECIALIST): Assessment: Hx of major depressive disorder [...] withdrawal Assessment & Plan (03/18/2020 12:58 PM MANAGEMENT SPECIALIST): Assessment: Hx of major depressive disorder [...] anxiety Assessment & Plan (03/17/2020 10:33 AM MANAGEMENT SPECIALIST): Assessment: Hx of major depressive disorder [...] appreciated Assessment & Plan (03/16/2020 2:24 PM MANAGEMENT SPECIALIST): Assessment: Hx of major depressive disorder [...] recommendations Assessment & Plan (03/15/2020 11:11 AM MANAGEMENT SPECIALIST): Assessment: Hx of major depressive disorder [...] anxiety Assessment & Plan (03/14/2020 6:28 AM MANAGEMENT SPECIALIST): Assessment: Hx of major depressive disorder [...] anxiety Assessment & Plan (03/13/2020 6:28 AM MANAGEMENT SPECIALIST): Assessment: Hx of major depressive disorder [...] anxiety Assessment & Plan (03/12/2020 11:35 AM MANAGEMENT SPECIALIST): Assessment: Hx of major depressive disorder [...] anxiety Assessment & Plan (03/11/2020 12:43 PM MANAGEMENT SPECIALIST): Assessment: Hx of major depressive disorder [...] anxiety Assessment & Plan (03/10/2020 6:11 AM MANAGEMENT SPECIALIST): Assessment: Hx of major depressive disorder [...] anxiety Assessment & Plan (03/09/2020 6:24 AM MANAGEMENT SPECIALIST): Assessment: Hx of major depressive disorder [...] anxiety Assessment & Plan (03/08/2020 10:51 AM MANAGEMENT SPECIALIST): Assessment: Hx of major depressive disorder [...] anxiety Assessment & Plan (03/07/2020 9:15 AM MANAGEMENT SPECIALIST): Assessment: Hx of major depressive disorder [...] worker-Alma Assessment & Plan (03/06/2020 10:09 AM MANAGEMENT SPECIALIST): Assessment: Hx of major depressive disorder [...] anxiety Assessment & Plan (03/05/2020 9:56 AM MANAGEMENT SPECIALIST): Assessment: Hx of major depressive disorder [...] anxiety Assessment & Plan (03/04/2020 12:58 PM MANAGEMENT SPECIALIST): Assessment: Hx of major depressive disorder [...] anxiety Assessment & Plan (03/03/2020 3:16 PM MANAGEMENT SPECIALIST): Assessment: Hx of major depressive disorder [...] anxiety Assessment & Plan (03/01/2020 12:04 PM MANAGEMENT SPECIALIST): Assessment: Hx of major depressive disorder [...] anxiety Assessment & Plan (02/29/2020 12:53 PM MANAGEMENT SPECIALIST): Assessment: Hx of major depressive disorder [...] anxiety Assessment & Plan (02/28/2020 9:22 AM MANAGEMENT SPECIALIST): Assessment: Hx of major depressive disorder [...] anxiety Assessment & Plan (02/27/2020 10:27 AM MANAGEMENT SPECIALIST): Assessment: Hx of major depressive disorder [...] negative Assessment & Plan (02/26/2020 11:12 AM MANAGEMENT SPECIALIST): Assessment: Hx of major depressive disorder [...] pending Assessment & Plan (02/25/2020 9:33 AM MANAGEMENT SPECIALIST): Assessment: Hx of major depressive disorder [...] pending Assessment & Plan (02/24/2020 6:51 AM MANAGEMENT SPECIALIST): Assessment: Hx of major depressive disorder [...] pending Assessment & Plan (02/23/2020 10:19 AM MANAGEMENT SPECIALIST): Assessment: Hx of major depressive disorder [...] pending Assessment & Plan (02/22/2020 11:07 AM MANAGEMENT SPECIALIST): Assessment: Hx of major depressive disorder [...] QHS Assessment & Plan (02/21/2020 10:54 AM MANAGEMENT SPECIALIST): Assessment: History of major depressive disorder [...] tablet Assessment & Plan (02/20/2020 11:33 AM MANAGEMENT SPECIALIST): Assessment: History of major depressive disorder [...] tablet Assessment & Plan (02/19/2020 3:05 PM MANAGEMENT SPECIALIST): Assessment: History of major depressive disorder [...] tablet Assessment & Plan (02/18/2020 10:13 AM MANAGEMENT SPECIALIST): Assessment: History of major depressive disorder [...] tablet Assessment & Plan (02/17/2020 12:26 PM MANAGEMENT SPECIALIST): Assessment: History of major depressive disorder [...] tablet Assessment & Plan (02/16/2020 1:14 PM MANAGEMENT SPECIALIST): Assessment: History of major depressive disorder [...] tablet Assessment & Plan (02/15/2020 12:31 PM MANAGEMENT SPECIALIST): Assessment: History of major depressive disorder [...] tablet Assessment & Plan (02/14/2020 2:24 PM MANAGEMENT SPECIALIST): Assessment: History of major depressive disorder [...] tablet Assessment & Plan (02/13/2020 12:00 PM MANAGEMENT SPECIALIST): Assessment: History of major depressive disorder [...] tablet Assessment & Plan (02/12/2020 11:20 AM MANAGEMENT SPECIALIST): Assessment: History of major depressive disorder [...] tablet Assessment & Plan (02/11/2020 11:54 AM MANAGEMENT SPECIALIST): Assessment: History of major depressive disorder [...] tablet Assessment & Plan (02/10/2020 12:09 PM MANAGEMENT SPECIALIST): Assessment: History of major depressive disorder [...] tablet Assessment & Plan (02/09/2020 11:50 AM MANAGEMENT SPECIALIST): Assessment: History of major depressive disorder [...] [place] Assessment & Plan (02/08/2020 12:54 PM MANAGEMENT SPECIALIST): Assessment: History of major depressive disorder [...] [place] Assessment & Plan (02/07/2020 11:47 AM MANAGEMENT SPECIALIST): Assessment: History of major depressive disorder [...] [place] Assessment & Plan (02/06/2020 8:12 AM MANAGEMENT SPECIALIST): Assessment: History of major depressive disorder [...] [place] Assessment & Plan (02/05/2020 9:12 AM MANAGEMENT SPECIALIST): Assessment: History of major depressive disorder [...] [place] Assessment & Plan (02/04/2020 12:43 PM MANAGEMENT SPECIALIST): Assessment: History of major depressive disorder [...] [place] Assessment & Plan (02/03/2020 2:28 PM MANAGEMENT SPECIALIST): Assessment: History of major depressive disorder [...] [place] Assessment & Plan (02/02/2020 4:02 PM MANAGEMENT SPECIALIST): Assessment: History of major depressive disorder [...] [place] Assessment & Plan (02/01/2020 12:12 PM MANAGEMENT SPECIALIST): Assessment: History of major depressive disorder [...] [place] Assessment & Plan (01/31/2020 1:04 PM MANAGEMENT SPECIALIST): Assessment: History of major depressive disorder [...] [place] Assessment & Plan (01/30/2020 10:30 AM MANAGEMENT SPECIALIST): Assessment: History of major depressive disorder [...] [place] Assessment & Plan (01/29/2020 9:40 PM MANAGEMENT SPECIALIST): Assessment: History of major depressive disorder [...] [place] Assessment & Plan (01/28/2020 11:59 AM MANAGEMENT SPECIALIST): Assessment: History of major depressive disorder [...] lunch Assessment & Plan (01/27/2020 3:57 PM MANAGEMENT SPECIALIST): Assessment: History of major depressive disorder [...] lunch Assessment & Plan (01/26/2020 6:01 PM MANAGEMENT SPECIALIST): Assessment: History of major depressive disorder [...] [place] Assessment & Plan (01/25/2020 2:56 PM MANAGEMENT SPECIALIST): Assessment: History of major depressive disorder [...] PO. Assessment & Plan (01/24/2020 8:11 AM MANAGEMENT SPECIALIST): Assessment: History of major depressive disorder [...] (02/22/20) Assessment & Plan (01/23/2020 7:09 AM MANAGEMENT SPECIALIST): Assessment: History of major depressive disorder [...] (02/22/20) Assessment & Plan (01/22/2020 7:52 AM MANAGEMENT SPECIALIST): Assessment: History of major depressive disorder [...] (02/22/20) Assessment & Plan (01/21/2020 7:40 AM MANAGEMENT SPECIALIST): Assessment: History of major depressive disorder [...] (02/22/20) Assessment & Plan (01/20/2020 7:36 AM MANAGEMENT SPECIALIST): Assessment: History of major depressive disorder [...] (02/22/20) Assessment & Plan (01/19/2020 7:22 AM MANAGEMENT SPECIALIST): Assessment: History of major depressive disorder [...] (02/22/20) Assessment & Plan (01/18/2020 4:35 PM MANAGEMENT SPECIALIST): Assessment: History of major depressive disorder [...] range. Assessment & Plan (04/08/2020 1:31 PM MANAGEMENT SPECIALIST): Assessment: Malnutrition is secondary to ARFID, [...] PT Assessment & Plan (04/07/2020 2:52 PM MANAGEMENT SPECIALIST): Assessment: Malnutrition is secondary to ARFID, [...] PT Assessment & Plan (04/07/2020 6:44 PM MANAGEMENT SPECIALIST): Assessment: Marlee is a 19 year [...] follow up with adolescent medicine on 04/18, [facility] on 05/02, and and scheduling Psych intake visit SOCIAL: - General medicine team spoke with and updated mother on 04/06 LABS: daily urine spec gravity, BMP/Mg/Phos Q / Assessment & Plan (04/06/2020 6:45 PM MANAGEMENT SPECIALIST): Assessment: Marlee is a 19 year [...] / Assessment & Plan (04/05/2020 3:22 PM MANAGEMENT SPECIALIST): Assessment: Malnutrition is secondary to ARFID, [...] PT Assessment & Plan (04/05/2020 10:49 AM MANAGEMENT SPECIALIST): Assessment: Marlee is a 19 year [...] / Assessment & Plan (04/04/2020 3:59 PM MANAGEMENT SPECIALIST): Assessment: Malnutrition is secondary to ARFID, [...] daily Assessment & Plan (04/04/2020 10:21 AM MANAGEMENT SPECIALIST): Assessment: Marlee is a 19 year [...] allowed in room. May have water from [facility] cup. Oral fluids limited to 250 mL [...] / Assessment & Plan (04/03/2020 12:59 PM MANAGEMENT SPECIALIST): Assessment: Marlee is a 19 year [...] daily Assessment & Plan (04/02/2020 4:19 PM MANAGEMENT SPECIALIST): Assessment: Marlee is a 19 year [...] daily Assessment & Plan (04/01/2020 11:55 AM MANAGEMENT SPECIALIST): Assessment: Malnutrition is secondary to ARFID [...] daily Assessment & Plan (04/01/2020 11:15 AM MANAGEMENT SPECIALIST): Assessment: Marlee is a 19 year [...] daily Assessment & Plan (03/31/2020 12:05 PM MANAGEMENT SPECIALIST): Assessment: Malnutrition is secondary to ARFID [...] daily Assessment & Plan (03/31/2020 10:06 AM MANAGEMENT SPECIALIST): Assessment: Marlee is a 19 year [...] daily Assessment & Plan (03/30/2020 2:24 PM MANAGEMENT SPECIALIST): Assessment: Marlee is a 19 year [...] daily Assessment & Plan (03/29/2020 10:40 AM MANAGEMENT SPECIALIST): Assessment: Marlee is a 19 year [...] daily Assessment & Plan (03/28/2020 12:29 PM MANAGEMENT SPECIALIST): Assessment: Marlee is a 19 year [...] allowed in room. May have water from [employer] cup. Oral fluids limited to 250 mL [...] daily Assessment & Plan (03/27/2020 10:34 AM MANAGEMENT SPECIALIST): Assessment: Marlee is a 19 year [...] night 03/27: Increase to 50 mL/hr tonight. [facility] is aware of increase but did [...] daily Assessment & Plan (03/26/2020 11:20 AM MANAGEMENT SPECIALIST): Assessment: Marlee is a 19 year [...] daily Assessment & Plan (03/25/2020 12:30 PM MANAGEMENT SPECIALIST): Assessment: Marlee is a 19 year [...] daily Assessment & Plan (03/24/2020 5:02 PM MANAGEMENT SPECIALIST): Assessment: Malnutrition is secondary to ARFID [...] anxiety Assessment & Plan (03/24/2020 11:19 AM MANAGEMENT SPECIALIST): Assessment: Marlee is a 19 year [...] daily Assessment & Plan (03/23/2020 12:20 PM MANAGEMENT SPECIALIST): Assessment: Marlee is a 19 year [...] daily Assessment & Plan (03/22/2020 12:20 PM MANAGEMENT SPECIALIST): Assessment: Marlee is a 19 year [...] daily Assessment & Plan (03/21/2020 3:10 PM MANAGEMENT SPECIALIST): Assessment: Marlee is a 19 year [...] 03/15/2020. Assessment & Plan (03/20/2020 10:32 AM MANAGEMENT SPECIALIST): Assessment: Marlee is a 19 year [...] 03/15/2020. Assessment & Plan (03/19/2020 10:37 AM MANAGEMENT SPECIALIST): Assessment: Marlee is a 19 year [...] 03/15/2020. Assessment & Plan (03/18/2020 1:00 PM MANAGEMENT SPECIALIST): Assessment: Marlee is a 19 year [...] 03/15/2020. Assessment & Plan (03/17/2020 10:36 AM MANAGEMENT SPECIALIST): Assessment: Marlee is a 19 year [...] 03/15/2020. Assessment & Plan (03/16/2020 2:10 PM MANAGEMENT SPECIALIST): Assessment: Marlee is a 19 year [...] 03/15/2020. Assessment & Plan (03/15/2020 11:10 AM MANAGEMENT SPECIALIST): Assessment: Marlee is a 19 year [...] 03/15/2020 Assessment & Plan (03/14/2020 9:53 AM MANAGEMENT SPECIALIST): Assessment: Marlee is a 19 year [...] 03/15/2020 Assessment & Plan (03/13/2020 9:39 AM MANAGEMENT SPECIALIST): Assessment: Marlee is a 19 year [...] week Assessment & Plan (03/12/2020 11:35 AM MANAGEMENT SPECIALIST): Assessment: Marlee is a 19 year [...] week Assessment & Plan (03/11/2020 12:43 PM MANAGEMENT SPECIALIST): Assessment: Marlee is a 19 year [...] week Assessment & Plan (03/10/2020 9:12 AM MANAGEMENT SPECIALIST): Assessment: Marlee is a 19 year [...] in Assessment & Plan (03/09/2020 10:22 AM MANAGEMENT SPECIALIST): Assessment: Marlee is a 19 year [...] in Assessment & Plan (03/08/2020 10:52 AM MANAGEMENT SPECIALIST): Assessment: Marlee is a 19 year [...] in Assessment & Plan (03/07/2020 9:18 AM MANAGEMENT SPECIALIST): Assessment: Marlee is a 19 year [...] in Assessment & Plan (03/06/2020 10:09 AM MANAGEMENT SPECIALIST): Assessment: Marlee is a 19 year [...] in Assessment & Plan (03/05/2020 9:56 AM MANAGEMENT SPECIALIST): Assessment: Marlee is a 19 year [...] in Assessment & Plan (03/04/2020 12:58 PM MANAGEMENT SPECIALIST): Assessment: Marlee is a 19 year [...] A/P Assessment & Plan (03/03/2020 3:15 PM MANAGEMENT SPECIALIST): Assessment: Marlee is a 19 year [...] A/P Assessment & Plan (03/02/2020 12:06 PM MANAGEMENT SPECIALIST): Assessment: Marlee is a 19 year [...] A/P Assessment & Plan (03/01/2020 12:05 PM MANAGEMENT SPECIALIST): Assessment: Marlee is a 19 year [...] A/P Assessment & Plan (02/29/2020 12:52 PM MANAGEMENT SPECIALIST): Assessment: Marlee is a 19 year [...] A/P Assessment & Plan (02/28/2020 9:12 AM MANAGEMENT SPECIALIST): Assessment: Marlee is a 19 year [...] A/P Assessment & Plan (02/27/2020 10:03 AM MANAGEMENT SPECIALIST): Assessment: Marlee is a 19 year [...] A/P Assessment & Plan (02/26/2020 11:12 AM MANAGEMENT SPECIALIST): Assessment: Marlee is a 19 year [...] A/P Assessment & Plan (02/25/2020 9:32 AM MANAGEMENT SPECIALIST): Assessment: Marlee is a 19 year [...] A/P Assessment & Plan (02/24/2020 10:42 AM MANAGEMENT SPECIALIST): Assessment: Marlee is a 19 year [...] A/P Assessment & Plan (02/23/2020 10:22 AM MANAGEMENT SPECIALIST): Assessment: Marlee is a 19 year [...] A/P Assessment & Plan (02/22/2020 11:25 AM MANAGEMENT SPECIALIST): Assessment: Marlee is a 19 year [...] A/P Assessment & Plan (02/21/2020 10:54 AM MANAGEMENT SPECIALIST): Assessment: Marlee is a 19 year [...] A/P Assessment & Plan (02/20/2020 11:31 AM MANAGEMENT SPECIALIST): Assessment: Marlee is a 19 year [...] A/P Assessment & Plan (02/19/2020 3:04 PM MANAGEMENT SPECIALIST): Assessment: Marlee is a 19 year [...] TPN. Assessment & Plan (02/18/2020 10:14 AM MANAGEMENT SPECIALIST): Assessment: Marlee is a 19 year [...] Sat) Assessment & Plan (02/17/2020 12:30 PM MANAGEMENT SPECIALIST): Assessment: Marlee is a 19 year [...] pending Assessment & Plan (02/16/2020 2:29 PM MANAGEMENT SPECIALIST): Assessment: Marlee is a 19 year [...] pending Assessment & Plan (02/15/2020 12:33 PM MANAGEMENT SPECIALIST): Assessment: Marlee is a 19 year [...] pending Assessment & Plan (02/14/2020 2:23 PM MANAGEMENT SPECIALIST): Assessment: Marlee is a 19 year [...] pending Assessment & Plan (02/13/2020 11:59 AM MANAGEMENT SPECIALIST): Assessment: Marlee is a 19 year [...] pending Assessment & Plan (02/12/2020 11:49 AM MANAGEMENT SPECIALIST): Assessment: Marlee is a 19 year [...] recs Assessment & Plan (02/11/2020 11:56 AM MANAGEMENT SPECIALIST): Assessment: Marlee is a 19 year [...] recs Assessment & Plan (02/10/2020 12:11 PM MANAGEMENT SPECIALIST): Assessment: Marlee is a 19 year [...] SG) Assessment & Plan (02/09/2020 11:49 AM MANAGEMENT SPECIALIST): Assessment: Marlee is a 19 year [...] SG) Assessment & Plan (02/08/2020 12:54 PM MANAGEMENT SPECIALIST): Assessment: Marlee is a 19 year [...] recs. Assessment & Plan (02/07/2020 12:06 PM MANAGEMENT SPECIALIST): Assessment: Marlee is a 19 year [...] SG) Assessment & Plan (02/06/2020 8:12 AM MANAGEMENT SPECIALIST): Assessment: Marlee is a 19 year [...] SG) Assessment & Plan (02/05/2020 9:12 AM MANAGEMENT SPECIALIST): Assessment: Marlee is a 19 year [...] TG) Assessment & Plan (02/04/2020 12:52 PM MANAGEMENT SPECIALIST): Assessment: Marlee is a 19 year [...] TG) Assessment & Plan (02/03/2020 2:38 PM MANAGEMENT SPECIALIST): Assessment: Marlee is a 19 year [...] TG) Assessment & Plan (02/02/2020 4:02 PM MANAGEMENT SPECIALIST): Assessment: Marlee is a 19 year [...] QOD Assessment & Plan (02/01/2020 12:08 PM MANAGEMENT SPECIALIST): Assessment: Marlee is a 19 year [...] RBCs. Assessment & Plan (01/31/2020 1:05 PM MANAGEMENT SPECIALIST): Assessment: Marlee is a 19 year [...] hematuria Assessment & Plan (01/30/2020 10:30 AM MANAGEMENT SPECIALIST): Assessment: Marlee is a 19 year [...] 10.2 Assessment & Plan (01/29/2020 9:39 PM MANAGEMENT SPECIALIST): Assessment: Marlee is a 19 year [...] syndrome Assessment & Plan (01/28/2020 11:59 AM MANAGEMENT SPECIALIST): Assessment: Marlee is a 19 year [...] QOD Assessment & Plan (01/27/2020 3:59 PM MANAGEMENT SPECIALIST): Assessment: Marlee is a 19 year [...] QOD Assessment & Plan (01/26/2020 5:14 PM MANAGEMENT SPECIALIST): Assessment: Marlee is a 19 year [...] QOD Assessment & Plan (01/25/2020 2:58 PM MANAGEMENT SPECIALIST): Assessment: Marlee is a 19 year [...] QOD Assessment & Plan (01/24/2020 11:54 AM MANAGEMENT SPECIALIST): Assessment: Marlee is a 19 year [...] orthostatics Assessment & Plan (01/23/2020 7:09 AM MANAGEMENT SPECIALIST): Assessment: Marlee is a 19 year [...] orthostatics Assessment & Plan (01/22/2020 4:25 PM MANAGEMENT SPECIALIST): Assessment: Marlee is a 19 year [...] orthostatics Assessment & Plan (01/21/2020 8:15 AM MANAGEMENT SPECIALIST): Assessment: Marlee Chavez is a 19 [...] orthostatics Assessment & Plan (01/20/2020 7:36 AM MANAGEMENT SPECIALIST): Assessment: Marlee Chavez is a 19 [...] orthostatics Assessment & Plan (01/19/2020 7:20 AM MANAGEMENT SPECIALIST): Assessment: Marlee Chavez is a 19 [...] orthostatics Assessment & Plan (01/18/2020 4:30 PM MANAGEMENT SPECIALIST): Assessment: Marlee Chavez is a 19 [...] consult Assessment & Plan (03/27/2020 10:35 AM MANAGEMENT SPECIALIST): Assessment: Marlee is admitted on ED Protocol for severe malnutrition. Following feeding plan per Adolescent Medicine and Nutrition. Plan: - see plan under ARFID problem Assessment & Plan (03/26/2020 11:20 AM MANAGEMENT SPECIALIST): Assessment: Marlee is admitted on ED Protocol for severe malnutrition. Following feeding plan per Adolescent Medicine and Nutrition. Plan: - see plan under ARFID problem Assessment & Plan (03/24/2020 11:19 AM MANAGEMENT SPECIALIST): Assessment: Marlee is admitted on ED Protocol for severe malnutrition. Following feeding plan per Adolescent Medicine and Nutrition. Plan: - see plan under ARFID problem Assessment & Plan (03/23/2020 9:00 AM MANAGEMENT SPECIALIST): Assessment: Marlee is admitted on ED Protocol for severe malnutrition. Following feeding plan per Adolescent Medicine and Nutrition. Plan: - see plan under ARFID problem Assessment & Plan (03/22/2020 12:21 PM MANAGEMENT SPECIALIST): Assessment: Marlee is admitted on ED Protocol for severe malnutrition. Following feeding plan per Adolescent Medicine and Nutrition. Plan: - see plan under ARFID problem Assessment & Plan (03/17/2020 4:26 PM MANAGEMENT SPECIALIST): Assessment: Malnutrition is secondary to ARFID [...] anxiety Assessment & Plan (03/15/2020 11:10 AM MANAGEMENT SPECIALIST): Assessment: Marlee is admitted on ED Protocol for severe malnutrition. Following feeding plan per Adolescent Medicine and Nutrition. Plan: - see plan under ARFID problem Assessment & Plan (03/10/2020 11:17 AM MANAGEMENT SPECIALIST): Assessment: Malnutrition is secondary to ARFID [...] needed Assessment & Plan (03/06/2020 10:09 AM MANAGEMENT SPECIALIST): Assessment: Marlee is admitted on ED Protocol for severe malnutrition. Following feeding plan per Adolescent Medicine and Nutrition. Plan: - see plan under ARFID problem Assessment & Plan (03/04/2020 1:41 PM MANAGEMENT SPECIALIST): Assessment: Marlee is admitted on ED Protocol for severe malnutrition. Following feeding plan per Adolescent Medicine and Nutrition. Plan: - see plan under ARFID problem Assessment & Plan (03/04/2020 11:50 AM MANAGEMENT SPECIALIST): Assessment: Marlee is admitted on ED Protocol for severe malnutrition. Following feeding plan per Adolescent Medicine and Nutrition. Plan: - see plan under ARFID problem Assessment & Plan (03/03/2020 3:53 PM MANAGEMENT SPECIALIST): Assessment: Malnutrition is secondary to ARFID [...] dad. Assessment & Plan (02/27/2020 9:57 AM MANAGEMENT SPECIALIST): Assessment: Marlee is admitted on ED Protocol for severe malnutrition. Following feeding plan per Adolescent Medicine and Nutrition. Plan: - see plan under ARFID problem Assessment & Plan (02/26/2020 9:59 AM MANAGEMENT SPECIALIST): Assessment: Malnutrition is secondary to ARFID [...] plan. Assessment & Plan (02/25/2020 5:48 PM MANAGEMENT SPECIALIST): Assessment: Malnutrition is secondary to ARFID [...] plan. Assessment & Plan (02/18/2020 4:54 PM MANAGEMENT SPECIALIST): Assessment: Malnutrition is secondary to ARFID [...] daily Assessment & Plan (02/11/2020 11:47 AM MANAGEMENT SPECIALIST): Assessment: Malnutrition is secondary to ARFID [...] BID Assessment & Plan (02/09/2020 11:50 AM MANAGEMENT SPECIALIST): Assessment: Marlee is admitted on ED Protocol for severe malnutrition. Following feeding plan per Adolescent Medicine and Nutrition. Plan: - see plan under ARFID problem Assessment & Plan (02/07/2020 11:47 AM MANAGEMENT SPECIALIST): Assessment: Marlee is admitted on ED Protocol for severe malnutrition. Following feeding plan per Adolescent Medicine and Nutrition. Plan: - see plan under ARFID problem Assessment & Plan (02/06/2020 8:12 AM MANAGEMENT SPECIALIST): Assessment: Marlee is admitted on ED Protocol for severe malnutrition. Following feeding plan per Adolescent Medicine and Nutrition. Plan: - see plan under ARFID problem Assessment & Plan (02/05/2020 9:01 AM MANAGEMENT SPECIALIST): Assessment: Marlee is admitted on ED Protocol for severe malnutrition. Following feeding plan per Adolescent Medicine and Nutrition. Plan: - see plan under ARFID problem Assessment & Plan (02/04/2020 12:34 PM MANAGEMENT SPECIALIST): Assessment: Marlee is admitted on ED Protocol for severe malnutrition. Following feeding plan per Adolescent Medicine and Nutrition. Plan: - see plan under ARFID problem Assessment & Plan (02/03/2020 2:28 PM MANAGEMENT SPECIALIST): Assessment: Marlee is admitted on ED Protocol for severe malnutrition. Following feeding plan per Adolescent Medicine and Nutrition. Plan: - see plan under ARFID problem Assessment & Plan (02/02/2020 3:57 PM MANAGEMENT SPECIALIST): Assessment: Marlee is admitted on ED Protocol for severe malnutrition. Following feeding plan per Adolescent Medicine and Nutrition. Plan: - see plan under ARFID problem Assessment & Plan (02/01/2020 12:10 PM MANAGEMENT SPECIALIST): Assessment: Marlee is admitted on ED Protocol for severe malnutrition. Following feeding plan per Adolescent Medicine and Nutrition. Plan: - see plan under ARFID problem Assessment & Plan (01/31/2020 1:04 PM MANAGEMENT SPECIALIST): Assessment: Marlee is admitted on ED Protocol for severe malnutrition. Following feeding plan per Adolescent Medicine and Nutrition. Plan: - see plan under ARFID problem Assessment & Plan (01/30/2020 10:28 AM MANAGEMENT SPECIALIST): Assessment: Marlee is admitted on ED Protocol for severe malnutrition. Following feeding plan per Adolescent Medicine and Nutrition. Plan: - see plan under ARFID problem Assessment & Plan (01/28/2020 4:29 PM MANAGEMENT SPECIALIST): Assessment: Malnutrition is secondary to ARFID [...] BID Assessment & Plan (01/24/2020 11:54 AM MANAGEMENT SPECIALIST): Assessment: Marlee is admitted on ED Protocol for severe malnutrition. Following feeding plan per Adolescent Medicine and Nutrition. Plan: - see plan under ARFID problem Assessment & Plan (01/23/2020 7:09 AM MANAGEMENT SPECIALIST): Assessment: Marlee is admitted on ED Protocol for severe malnutrition. Following feeding plan per Adolescent Medicine and Nutrition. Plan: - see plan under ARFID problem Assessment & Plan (01/22/2020 9:48 AM MANAGEMENT SPECIALIST): Assessment: Malnutrition is secondary to ARFID [...] () Assessment & Plan (01/22/2020 7:52 AM MANAGEMENT SPECIALIST): Assessment: Marlee is admitted on ED Protocol for severe malnutrition. Following feeding plan per Adolescent Medicine and Nutrition. Plan: - see plan under ARFID problem Assessment & Plan (01/21/2020 10:33 AM MANAGEMENT SPECIALIST): Assessment: Malnutrition is secondary to ARFID [...] () Assessment & Plan (01/21/2020 7:40 AM MANAGEMENT SPECIALIST): Assessment: Marlee is admitted on ED Protocol for severe malnutrition. Following feeding plan per Adolescent Medicine and Nutrition. Plan: - see plan under ARFID problem Assessment & Plan (01/20/2020 7:36 AM MANAGEMENT SPECIALIST): Assessment: Marlee is admitted on ED Protocol for severe malnutrition. Following feeding plan per Adolescent Medicine and Nutrition. Plan: - see plan under ARFID problem Assessment & Plan (01/19/2020 7:22 AM MANAGEMENT SPECIALIST): Assessment: Marlee is admitted on ED Protocol for severe malnutrition. Following feeding plan per Adolescent Medicine and Nutrition. Plan: - see plan under ARFID problem Assessment & Plan (01/18/2020 4:25 PM MANAGEMENT SPECIALIST): Assessment: Marlee Chavez is a 19 [...] orthostatics Assessment & Plan (01/17/2020 12:38 PM MANAGEMENT SPECIALIST): Assessment: Marlee Chavez is a 19 [...] anxiety Assessment & Plan (01/16/2020 1:41 PM MANAGEMENT SPECIALIST): Assessment: Marlee Chavez is a 19 [...] anxiety Assessment & Plan (01/15/2020 8:49 PM MANAGEMENT SPECIALIST): Assessment: Malnutrition is secondary to ARFID [...] counseling. Assessment & Plan (01/15/2020 11:57 AM MANAGEMENT SPECIALIST): Assessment: Marlee Chavez is a 19 [...] anxiety Assessment & Plan (01/14/2020 1:00 PM MANAGEMENT SPECIALIST): Assessment: Malnutrition is secondary to ARFID [...] () Assessment & Plan (01/14/2020 9:54 AM MANAGEMENT SPECIALIST): Assessment: Marlee Chavez is a 19 [...] anxiety Assessment & Plan (01/13/2020 2:34 PM MANAGEMENT SPECIALIST): Assessment: Marlee Chavez is a 19 [...] anxiety Assessment & Plan (01/13/2020 12:01 PM MANAGEMENT SPECIALIST): Moderate protein-calorie malnutrition Assessment: Marlee Chavez [...] thereafter Assessment & Plan (01/12/2020 3:40 PM MANAGEMENT SPECIALIST): Moderate protein-calorie malnutrition Assessment: Marlee Chavez [...] chart) Assessment & Plan (01/12/2020 1:25 PM MANAGEMENT SPECIALIST): Assessment: Marlee Chavez is a 19 [...] anxiety Assessment & Plan (01/11/2020 11:43 AM MANAGEMENT SPECIALIST): Assessment: Marlee Chavez is a 19 [...] cysts Assessment & Plan (01/10/2020 9:32 AM MANAGEMENT SPECIALIST): Assessment: Marlee Chavez is a 19 [...] cysts Assessment & Plan (01/09/2020 11:08 AM MANAGEMENT SPECIALIST): Assessment: Marlee Chavez is a 19 [...] cysts Assessment & Plan (01/08/2020 1:32 PM MANAGEMENT SPECIALIST): Assessment: Marlee Chavez is a 19 [...] cysts Assessment & Plan (01/07/2020 2:52 PM MANAGEMENT SPECIALIST): Assessment: Marlee Chavez is a 19 [...] cysts Assessment & Plan (01/06/2020 11:27 AM MANAGEMENT SPECIALIST): Assessment: Marlee Chavez is a 19 [...] cysts Assessment & Plan (01/05/2020 3:49 PM MANAGEMENT SPECIALIST): Assessment: Marlee Chavez is a 19 [...] cysts Assessment & Plan (01/04/2020 1:53 PM MANAGEMENT SPECIALIST): Assessment: Marlee Chavez is a 19 [...] cysts Assessment & Plan (01/03/2020 12:34 AM MANAGEMENT SPECIALIST): Assessment: Marlee Chavez is a 19 [...] to General medicine (purple team)- Dr. Valdez -[facility] LR at 95ml/hr -Continue home medications: Zyprexa, [...] 03/18/2023 Assessment & Plan (01/24/2022 5:04 PM MANAGEMENT SPECIALIST): Assessment: Marlee Chavez is a 20 [...] gabapentin Assessment & Plan (01/23/2022 6:56 PM MANAGEMENT SPECIALIST): Assessment: Marlee Chavez is a 20 [...] pain Assessment & Plan (01/08/2021 3:05 PM MANAGEMENT SPECIALIST): Assessment: Patient is an 20 year [...] I&Os Assessment & Plan (01/07/2021 4:52 PM MANAGEMENT SPECIALIST): Assessment: Patient is an 20 year [...] it Assessment & Plan (01/06/2021 6:00 PM MANAGEMENT SPECIALIST): Assessment: Patient is an 20 year [...] I&Os Assessment & Plan (01/05/2021 1:27 PM MANAGEMENT SPECIALIST): Assessment: Patient is an 20 year [...] I&Os Assessment & Plan (01/04/2021 9:17 PM MANAGEMENT SPECIALIST): Assessment: Patient is an 20 year [...] I&Os Assessment & Plan (01/03/2021 8:43 PM MANAGEMENT SPECIALIST): Assessment: Patient is an 20 year [...] wearing condom. She has upcoming appointment with [facility] specialists next month at which time, she will be getting a IUD. Plan: -urine test today -GC, chlamydia, trichomonas testing Assessment & Plan (05/24/2020 2:43 PM CDT): Will get urine Hcg and STI testing. Mom is aware and Marlee is ok with us communicating results to her mother. Purging 03/24/2020 05/24/2020 Assessment & Plan (04/05/2020 3:23 PM MANAGEMENT SPECIALIST): Assessment: Has been drinking excessive amounts of water and putting her fingers in her mouth to induce vomiting. No recorded emesis since 03/25. Plan: Will limit access to water to 250ml at a time. May only bathe once per day after she has taken her meds, had breakfast and lunch. Assessment & Plan (04/04/2020 12:58 PM MANAGEMENT SPECIALIST): Assessment: Has been drinking excessive amounts of water and putting her fingers in her mouth to induce vomiting. No recorded emesis since 03/25. Plan: Will limit access to water to 250ml at a time. May only bathe once per day after she has taken her meds, had breakfast and lunch. Assessment & Plan (04/01/2020 11:55 AM MANAGEMENT SPECIALIST): Assessment: Has been drinking excessive amounts of water and putting her fingers in her mouth to induce vomiting. No recorded emesis since 03/25. Plan: Will limit access to water to 250ml at a time. May only bathe once per day after she has taken her meds, had breakfast and lunch. Assessment & Plan (03/24/2020 4:53 PM MANAGEMENT SPECIALIST): Assessment: Has been drinking excessive amounts of water and putting her fingers in her mouth to induce vomiting. Plan: Will limit access to water to 250ml at a time. May only bathe once per day after she has taken her meds, had breakfast and lunch. Ovarian cyst 01/12/2020 03/19/2020 Assessment & Plan (03/15/2020 11:10 AM MANAGEMENT SPECIALIST): Assessment: on ultrasound on R Plan: -Radiology recommended repeat imaging in 6 months for ovarian cysts Assessment & Plan (03/04/2020 1:41 PM MANAGEMENT SPECIALIST): Assessment: on ultrasound on R Plan: -Radiology recommended repeat imaging in 6 months for ovarian cysts Assessment & Plan (03/04/2020 11:50 AM MANAGEMENT SPECIALIST): Assessment: on ultrasound on R Plan: -Radiology recommended repeat imaging in 6 months for ovarian cysts Assessment & Plan (02/27/2020 9:58 AM MANAGEMENT SPECIALIST): Assessment: on ultrasound on R Plan: -Radiology recommended repeat imaging in 6 months for ovarian cysts Assessment & Plan (01/28/2020 11:59 AM MANAGEMENT SPECIALIST): Assessment: on ultrasound on R Plan: -Radiology recommended repeat imaging in 6 months for ovarian cysts Assessment & Plan (01/27/2020 3:52 PM MANAGEMENT SPECIALIST): Assessment: on ultrasound on R Plan: -Radiology recommended repeat imaging in 6 months for ovarian cysts Assessment & Plan (01/26/2020 6:01 PM MANAGEMENT SPECIALIST): Assessment: on ultrasound on R Plan: -Radiology recommended repeat imaging in 6 months for ovarian cysts Assessment & Plan (01/13/2020 2:33 PM MANAGEMENT SPECIALIST): Assessment: on ultrasound on R Plan: -Radiology recommended repeat imaging in 6 months for ovarian cysts Assessment & Plan (01/12/2020 1:26 PM MANAGEMENT SPECIALIST): Assessment: on ultrasound on R Plan: -Radiology recommended repeat imaging in 6 months for ovarian cysts Self-injurious behavior 03/25/201705/12 Major depressive disorder, severe 03/21/2017 05/24/2020 Intractable vomiting 020 Encounters * This document contains information received from the source organization and may not represent a complete record from that organization. Date Type Department Care Team Description 07/07/2024 Travel 06/11/2024 Travel 06/10/2024 Orders Only [address] [address] Ronel Thornton DO 06/09/2024 Telephone [facility] [address] Josef Leigh, [address] [phone] Mercedes Cruz, PRESIDENT PRACTICING UROLOGIST-BACKUP ADMINISTRATOR Follow-up 06/09/2024 Patient Outreach [facility] - Care Coordination [address] [place] [phone] Marlee Taylor, GAMBLING MONITOR UC Follow-up 06/08/2024 1:20 PM CDT Office Visit [address] [address] Ronel Thornton DO Moderate bulimia nervosa (HCC) (Primary Dx); Superior mesenteric artery syndrome (HCC); Avoidant-restrictiv e food intake disorder (ARFID) 06/08/[address] [phone] Ronel Thornton DO Medication Issue 06/08/2024 Patient Outreach [facility] - Care Coordination [address] [place] [phone] Marlee Taylor, GAMBLING MONITOR UC Follow-up 06/07/2024 2:27 AM CDT - 06/07/2024 7:04 AM CDT Emergency ER at [facility] [address] [place] [address] Momo Yung MD Abdominal pain, epigastric; Nausea vomiting and diarrhea Discharge Disposition: Home or Self Care 06/07/2024 Travel 05/22/2024 Travel 05/12/2024 Travel 05/07/2024 10:00 AM CDT Office Visit [address] [address] Ronel Thornton DO Anorexia (Primary Dx); Generalized anxiety disorder 04/29/2024 8:20 AM CDT Office Visit [address] [address] Ronel Thornton DO Anorexia (Primary Dx); Severe bulimia nervosa; Generalized anxiety disorder; Recurrent major depressive disorder, in full remission; PTSD (post-traumatic stress disorder); Borderline personality disorder from Last 3 Months Immunizations Immunization Administration Dates Next Due Deep Domain primary monoval ent 12+ yr 0.3mL Purple [...] Recorded Patient Health Questionnaire-2 Score 0 07/07/2024 [facility] - [...] place to sleep or slept in a skilled nursing (including now)? No 04/24/2023 Comments No Sex and Gender Information Value Date Recorded Sex Assigned at Not on file Legal Sex Female 6:25 PM MANAGEMENT SPECIALIST Gender Identity Not on file Sexual [...] st Contact Info) Description 01/20/2025 8:20 AM MANAGEMENT SPECIALIST Office Visit [facility] - Family Medicine [address] [place] [address] Ronel Thornton DO [address] [place] [phone] Health Maintenance Due Date Last Done [...] PANEL Routine 04/29/2024 8:58 AM CDT Anorexia HI ELECTROCARDIOGRAM, COMPLETE Routine 04/29/2024 Anorexia PAP CERVICAL [...] POINT OF CARE (06/07/2024 6:34 AM CDT) Glucose WB/POC 107(H) 70 - 99 mg/dL 06/07/2024 6:03 PM CDT [facility] Specimen Type Cap Fingerstick 2024 6:03 PM CDT [facility] Blood BLOOD SPECIMEN / Unknown 06/07/2024 6:34 AM CDT 06/07/2024 6:03 PM CDT us Momo Yung MD LAB - POINT OF CARE ORDERABL ES Final Result [facility] [address] [place] [address] * CT Abdomen Pelvis W Contrast (06/07/2024 [...] - 99 mg/dL 06/07/2024 3:08 AM CDT [facility] Sodium 138 136 - 145 mmol/L 06/07/2024 3:08 AM CDT [facility] Potassium 3.9 3.5 - 5.1 mmol/L 06/07/2024 3:08 AM CDT [facility] Chloride 100 98 - 107 mmol/L 06/07/2024 3:08 AM CDT [facility] CO2 18(L) 22 - 29 mmol/L 06/07/2024 3:08 AM CDT [facility] Calcium 9.8 8.4 - 10.4 mg/dL 06/07/2024 3:08 AM CDT [facility] Anion Gap 20(H) 6 - 16 mmol/L 06/07/2024 3:08 AM CDT [facility] BUN 27(H) 5.3 - 18.7 mg/dL 06/07/2024 3:08 AM CDT [facility] Creatinine 1.07 0.57 - 1.11 mg/dL 06/07/2024 3:08 AM CDT [facility] Alkaline Phosphatase 66 40 - 150 U/L 06/07/2024 3:08 AM CDT [facility] ALT 18 6 - 57 U/L 06/07/2024 3:08 AM CDT [facility] AST 36 10 - 48 U/L 06/07/2024 3:08 AM CDT [facility] Protein Total 9.0(H) 6.4 - 8.3 gm/dL 06/07/2024 3:08 AM CDT [facility] Albumin 5.0 3.4 - 5.0 gm/dL 06/07/2024 3:08 AM CDT [facility] Bilirubin Total 0.7 0.2 - 1.2 mg/dL 06/07/2024 3:08 AM CDT [facility] eGFR by CKD-EPI 76(L) >=90 mL/min/1.7 3 m2 06/07/2024 3:08 AM CDT [facility] Blood BLOOD SPECIMEN / Unknown Venipuncture / Unknown 06/07/2024 2:50 AM CDT 06/07/2024 2:50 AM CDT us Momo Yung MD LAB - CHEMISTRY ORDERABLES F inal Result [facility] [address] [place] [address] * HCG BETA BLOOD QUANTITATIVE (06/07/2024 2:50 AM CDT) hCG Quantitative <2.42 mIU/mL 06/08/19 3:11 AM CDT [facility] Blood BLOOD SPECIMEN / Unknown Venipuncture / Unknown 06/07/2024 2:50 AM CDT 06/07/2024 2:50 AM CDT Narrative [facility] - 06/07/2024 3:11 AM CDT [...] ORDERABLES F inal Result Performing Organization Address [facility] Co de Phone Number [facility] [address] [place] [address] * PHOSPHORUS BLOOD (06/07/2024 2:50 AM CDT) Phosphorus 4.5 2.5 - 4.5 mg/dL 06/07/2024 3:08 AM CDT [facility] Blood BLOOD SPECIMEN / Unknown Venipuncture / Unknown 06/07/2024 2:50 AM CDT 06/07/2024 2:50 AM CDT Momo Yung MD LAB - CHEMISTRY ORDERABLES F inal Result Performing Organization Address [facility] de Phone Number [facility] [address] [place] [address] * MAGNESIUM BLOOD (06/07/2024 2:50 AM CDT) Only the most recent of2 resultswithin the time period is included. Magnesium 2.2 1.6 - 2.6 mg/dL 06/07/2024 3:08 AM CDT [facility] Blood BLOOD SPECIMEN / Unknown Venipuncture / Unknown 06/07/2024 2:50 AM CDT 06/07/2024 2:50 AM CDT Momo Yung MD LAB - CHEMISTRY ORDERABLES F inal Result Performing Organization Address [facility] de Phone Number [facility] [address] [place] [address] * (ABNORMAL) LIPASE BLOOD (06/07/2024 2:50 AM CDT) Lipase 84(H) <60 U/L 06/07/2024 3:08 AM CDT [facility] Blood BLOOD SPECIMEN / Unknown Venipuncture / Unknown 06/07/2024 2:50 AM CDT 06/07/2024 2:50 AM CDT us Momo Yung MD LAB - CHEMISTRY ORDERABLES F inal Result [facility] [address] [place] [address] * CBC W AUTO DIFFERENTIAL (06/07/2024 2:49 AM CDT) Only the most recent of2 resultswithin the time period is included. WBC 9.6 4.0 - 10.7 x10E9/L 06/07/2024 2:51 AM CDT [facility] RBC Count 4.88 3.90 - 5.20 x10E12/L 06/07/2024 2:51 AM CDT [facility] Hemoglobin 14.8 11.9 - 15.8 g/dL 06/07/2024 2:51 AM CDT [facility] Hematocrit 44.1 34.8 - 46.1 % 06/07/2024 2:51 AM CDT [facility] MCV 90.4 80.0 - 98.0 fL 06/07/2024 2:51 AM CDT [facility] MCH 30.3 26.7 - 33.6 pg 06/07/2024 2:51 AM CDT [facility] MCHC 33.6 31.7 - 36.3 g/dL 06/07/2024 2:51 AM CDT [facility] RDW-CV 12.6 11.3 - 14.8 % 06/07/2024 2:51 AM CDT [facility] Platelet Count 353 150 - 420 x10E9/L 06/07/2024 2:51 AM CDT [facility] MPV 9.6 7.8 - 11.4 fL 06/07/2024 2:51 AM CDT [facility] Neutrophil % 70.8 41.0 - 74.0 % 06/07/2024 2:51 AM CDT [facility] Lymphocyte % 18.4 17.0 - 47.0 % 06/07/2024 2:51 AM CDT [facility] Monocyte % 10.3 3.0 - 11.0 % 06/07/2024 2:51 AM CDT [facility] Eosinophil % 0.0 0.0 - 7.0 % 06/07/2024 2:51 AM CDT [facility] Basophil % 0.2 0.0 - 1.6 % 06/07/2024 2:51 AM CDT [facility] Immature Granulocytes % 0.3 0.0 - 1.0 % 06/07/2024 2:51 AM CDT [facility] Neutrophil Absolute 6.79 1.60 - 7.50 x10E9/L 06/07/2024 2:51 AM CDT [facility] Lymphocyte Absolute 1.77 1.00 - 4.40 x10E9/L 06/07/2024 2:51 AM CDT [facility] Monocyte Absolute 0.99 0.15 - 1.00 x10E9/L 06/07/2024 2:51 AM CDT [facility] Eosinophil Absolute 0.00 0.00 - 0.60 x10E9/L 06/07/2024 2:51 AM CDT [facility] Basophil Absolute 0.02 0.00 - 0.13 x10E9/L 06/07/2024 2:51 AM CDT [facility] Blood BLOOD SPECIMEN / Unknown Venipuncture / Unknown 06/07/2024 2:49 AM CDT 06/07/2024 2:49 AM CDT us Momo Yung MD LAB - HEMATOLOGY ORDERABLES Final Result Performing Organization Address City/State/[facility] Co de Phone Number [facility] [address] [place], [place] [id number] * LIPID PROFILE (04/29/2024 8:58 AM CDT) [...] - 04/29/2024 6:09 PM CDT Performed at: [facility] [address] [facility] , [place], [place] [id number] Safety Person: Elizabeth Rangel [facility], Phone: [phone] Ronel Thornton DO LAB - CHEMISTRY ORDERABLES Fi nal Result [facility] ACCOUNT BILL [address] [place] [address] * HI ELECTROCARDIOGRAM, COMPLETE (04/29/2024) Ronel Thornton DO HI - PROFESSIONAL SERVICES Ed ited Result - Final * (ABNORMAL) PAP CERVICAL CANCER SCREEN CT/NG/TV APT (11/29/2023 11:06 AM CDT) Age Gdln ACOG Testing 21-29 [facility] ACCOUNT BILL Comment: Performed at: - [facility] [address] [id number] Safety Person: Meredith Gil MD, Phone: [phone] Performed at: - [facility] [address] [id number] Safety Person: Meredith Gil MD, Phone: [phone] Diagnosis Comment(A) [facility] ACCOUNT BILL Comment: EPITHELIAL [...] 11:06 AM CDT 11/29/2023 Comment:Cervix Release to ca t Narrative [facility] ACCOUNT BILL - 12/05/2023 5:09 PM CDT Performed at: - [facility] [id number] Safety Person: Meredith Gil MD, Phone: [phone] Specimen Comment: [id number] Specimen Comment: Source.............Cervix Specimen Comment: No. of containers..01 ThinPrep Vial Nai Jurado MD LAB - PATHOLOGY/CYTOLOGY ORDE CHAMP Final Result Performing Organization Address [facility] Co de Phone Number [facility] ACCOUNT BILL [address] [place] [address] * HIV-1 HIV-2 ANTIBODY + HIV P24 [...] - 11/30/2023 10:10 AM CDT Performed at: [facility] [id number] Safety Person: Karlos Huffman PhD, Phone: [phone] Nai Jurado MD LAB - CHEMISTRY ORDERABLES Fi nal Result [facility] ACCOUNT BILL [address] [address] * HEPATITIS C AB W/RFLX TO HCV RNA QN PCR (12/07/2021) Hepatitis C Antibody NON-REACTI VE NON-REACT [facility] Signal to Cut-Off 0.08 <1.00 [facility] Comment: HCV antibody was non-reactive. There is no laboratory evidence of HCV infection. In most cases, no further action is required. However, if recent HCV exposure is suspected, a test for HCV RNA (test code 56400) is suggested. For additional information please refer to http://education.[employer]/faq/IBJ84r8 (This link is being provided for informational/ educational purposes only.) Test Performed at: [facility] [address] [place] [address] PURVI PABLO DO,MPH Blood BLOOD SPECIMEN / Unknown 12/07/2021 12/07/2021 10:47 AM CDT Karrie Mack MD LAB - CHEMISTRY ORDERABLES Final Result Performing Organization Address City/[facility] Co de Phone Number [facility] [address] [place] [address] from Last 3 Months or Most Recently Relevant to Health [place] [address] [facility] [facility] * Guarantor: MARLEE CHAVEZ Account Type Relation to Patient Date of Phone Billing Address Personal/Family [address] [place] [address] Advance Directives * Full Code (Latest Code [...] 4:54 PM 06/22/2022 2:44 PM Care Teams [employer] Jointer Feedback Relationship Specialty Start Date End Date [facility] [place] [address] PCP - General Family Medicine 03/18/23 Ronel Thornton DO [facility] [address] [place] [address] PCP - Attributed-[facility] 04/12/23
--- NOTE | 2024-07-27 16:54 | ED_ITS ---
HPI - Nausea/Vomiting/Diarrhea General Chief complaint: Nausea/Vomiting/Diarrhea <MERI Liang Last Filed: 07/27/24 16:59> Stated complaint: N/V, panic attack <MERI Liang Last Filed: 07/27/24 16:59> Time Seen by Provider: 07/27/24 16:54 <MERI Liang Last Filed: 07/27/24 16:59> Focused HPI: Patient is a 23 y/o female who presents to the ED with c/o N/V. Patient reports she had A severe panic attack this morning which spiralled her into an episode of her cyclic vomiting syndrome. She does report history of cyclic vomiting and daily marijuana use. She has Compazine at home, but has not used this today. She states the last time she was here she was admitted for a possible kidney infection. She reports diffuse pain throughout her upper abdomen. Denies diarrhea, constipation, fevers, urinary complaints. GENERAL: Mildly uncomfortable-appearing, thin, and in no acute distress. HEAD: Normocephalic, atraumatic. CHEST: Clear to auscultation. ?No respiratory distress. HEART: Regular rate and rhythm.? ABD: Diffuse upper abdominal pain. No rebound. Normoactive BS NEURO: ?Alert and oriented x3. Patient screened in triage and initial orders placed.? ?Additional care and disposition to be based upon?diagnostic testing and treatment. <Breana Duarte PA-C - Last Filed: 07/27/24 16:59> Focused HPI: Patient is a 23 y/o female who presents to the ED with c/o N/V. Patient reports she had a severe panic attack this morning which spiralled her into an episode of her cyclic vomiting syndrome. She does report history of cyclic vomiting and daily marijuana use. She has Compazine at home, but has not used this today. She states the last time she was here she was admitted for a possible kidney infection. She reports diffuse pain throughout her upper abdomen. Denies diarrhea, constipation, fevers, urinary complaints. GENERAL: Mildly uncomfortable-appearing, thin, and in no acute distress. HEAD: Normocephalic, atraumatic. CHEST: Clear to auscultation. ?No respiratory distress. HEART: Regular rate and rhythm.? ABD: Diffuse upper abdominal pain. No rebound. Normoactive BS NEURO: ?Alert and oriented x3. Patient screened in triage and initial orders placed.? ?Additional care and disposition to be based upon?diagnostic testing and treatment. <Zuleyma Andrews PA-C - Last Filed: 07/27/24 20:34> Source: patient <Breana Duarte PA-C - Last Filed: 07/27/24 16:59> Mode of arrival: ambulatory <Breana Duarte PA-C - Last Filed: 07/27/24 16:59> Limitations: no limitations <MERI Liang Last Filed: 07/27/24 16:59> Related Data Home medications: Home Medications ?Medication ?Instructions ?Recorded ?Confirmed ?Last Taken ?Type olanzapine 15 mg tablet 15 tablet PO DAILY 07/17/21 07/18/24 07/17/24 19:00 History escitalopram oxalate 10 mg tablet 10 mg PO DAILY 07/18/24 07/18/24 07/17/24 19:00 History <Breana Duarte PA-C - Last Filed: 07/27/24 16:59> Allergies/Adverse reactions: Allergies Allergy/AdvReac Type Severity Reaction Status Date / Time No Known Allergies Allergy Verified 07/27/24 17:11 <Breana Duarte PA-C - Last Filed: 07/27/24 16:59> Review of Systems 2 Review of Systems: All systems reviewed & are unremarkable except as noted in HPI and below <Zuleyma Andrews PA-C - Last Filed: 07/27/24 20:34> PMFSH Past Medical History Medical History: Medical History (Updated 07/27/24 @ 20:32 by Zuleyma Andrews PA-C) Drug withdrawal seizure History of eating disorder Anxiety Depression <Breana Duarte PA-C - Last Filed: 07/27/24 16:59> Family History Family History: Family History Grandparent History of alcoholism Depression Mother History of alcoholism Hypertension Depression <MERI Liang Last Filed: 07/27/24 16:59> Social History Social History: Social History Smoking status: Never smoker Alcohol intake: never Substance use: current Substance use type: marijuana Last use: 07/18/2024 Do You Feel Safe in your Home?: Yes Lack of Transportation: No Lack of Food: Never True Current Housing: I Have Housing Concerned About Future Housing: No Difficulty Paying Gas/Electric Bills: No Difficulty Paying for Meds: No Currently Unemployed: No Education: High School Diploma/GED Difficulty w/ Childcare or Family Care: No Living arrangements: with roommate(s) Occupation/Education: unemployed Additional occupation/education comments: not currently working or in school Gender identity (if verbalized by the patient): Female Spiritual care concerns: No <Breana Duarte PA-C - Last Filed: 07/27/24 16:59> Exam 2 Narrative: GENERAL: Uncomfortable, anxious HEAD: Normocephalic, atraumatic. EYES: EOMI. ENT: Nares clear, no rhinorrhea or epistaxis. Mucous membranes moist. Oropharynx without tonsillar hypertrophy exudate or other lesions. CHEST: Clear to auscultation. No respiratory distress. No wheezes rales or rhonchi HEART: Regular rate and rhythm. No murmur heard. Normal peripheral pulses. ABDOMEN: Soft, nondistended, normal active bowel sounds. Mild tenderness to palpation throughout the abdomen, without guarding EXTREMITIES: Normal range of motion. No edema. SKIN: Warm, dry, no rash. NEURO: No focal deficits. Alert and oriented x3. PSYCH: Normal mood and affect <Zuleyma Andrews PA-C - Last Filed: 07/27/24 20:34> Course Course Emergency Course: Patient updated on her workup. Resting comfortably. Tolerating oral intake. Reports she feels ready for discharge <Zuleyma Andrews PA-C - Last Filed: 07/27/24 20:34> Vital Signs Vital signs: Vital Signs Temperature 97.1 F L 07/27/24 14:54 Pulse Rate 128 H 07/27/24 14:54 Respiratory Rate 20 07/27/24 14:54 Blood Pressure 122/79 07/27/24 14:54 Pulse Oximetry 99 07/27/24 14:54 Oxygen Delivery Room Air 07/27/24 14:54 Temperature 97.1 F L 07/27/24 14:54 Pulse Rate 83 07/27/24 20:15 Respiratory Rate 14 07/27/24 20:15 Blood Pressure 123/84 07/27/24 20:15 Pulse Oximetry 100 07/27/24 20:15 Oxygen Delivery Room Air 07/27/24 14:54 <Breana Duarte PA-C - Last Filed: 07/27/24 16:59> Vital Signs Temperature 97.1 F L 07/27/24 14:54 Pulse Rate 128 H 07/27/24 14:54 Respiratory Rate 20 07/27/24 14:54 Blood Pressure 122/79 07/27/24 14:54 Pulse Oximetry 99 07/27/24 14:54 Oxygen Delivery Room Air 07/27/24 14:54 Temperature 97.1 F L 07/27/24 14:54 Pulse Rate 83 07/27/24 20:15 Respiratory Rate 14 07/27/24 20:15 Blood Pressure 123/84 07/27/24 20:15 Pulse Oximetry 100 07/27/24 20:15 Oxygen Delivery Room Air 07/27/24 14:54 <Zuleyma Andrews PA-C - Last Filed: 07/27/24 20:34> MDM - Nausea/Vomiting/Diarrhea MDM Narrative Medical decision making narrative: MSE by RIGOBERTO in triage. <MERI Liang Last Filed: 07/27/24 16:59> MSE by RIGOBERTO in triage. Patient presents the emergency department for abdominal pain, nausea vomiting. History of cyclic vomiting, anxiety. Patient afebrile and nontoxic appearing. Anxious, tachycardic upon arrival. Given antiemetic, anxiety medication, hydrated with improvement. Her rate is now normal. CBC with leukocytosis to 17.7, likely due to vomiting. Metabolic panel with some evidence of dehydration. Urine also does show evidence of dehydration, no evidence of infection. test is negative. CT abdomen pelvis without acute findings. Patient was hydrated with 2 L of IV fluids in the ED. Patient updated on her workup. Resting comfortably. Tolerating oral intake. Reports she feels ready for discharge. She is to follow up with her primary provider. She was given warnings to return to the ER <Zuleyma Andrews PA-C - Last Filed: 07/27/24 20:34> Differential Diagnosis Differential diagnosis: Likely food poisoning, gastroenteritis, dehydration and other (cyclic vomiting) <Zuleyma Andrews PA-C - Last Filed: 07/27/24 20:34> Lab Data Attestation: I reviewed the patient's lab results. <Zuleyma Andrews PA-C - Last Filed: 07/27/24 20:34> Result diagrams: 07/27/24 17:31 07/27/24 17:31 <Breana Duarte PA-C - Last Filed: 07/27/24 16:59> Labs: Lab Results 07/27/24 07/27/24 07/27/24 Range/Units 17:03 17:31 17:41 WBC 17.7 H (4.5-10.0) K/mm3 RBC 3.97 L (4.2-5.4) M/mm3 Hgb 12.1 (12.0-15.0) g/dL Hct 36.5 L (37.0-47.0) % MCV 91.9 (80-100) fl MCH 30.5 (26-34) pg MCHC 33.2 (32-36) g/dl RDW 12.8 (11.5-14.5) % Plt Count 346 D (150-375) k/mm3 MPV 10.0 (7.4-10.4) fl Immature Gran % (Auto) 0.5 (0-0.5) % Neut % (Auto) 85.1 H (45.5-73.1) % Lymph % (Auto) 7.0 L (18.3-44.2) % Upton % (Auto) 7.1 (2.6-8.5) % Eos % (Auto) 0.0 (0-4.4) % Baso % (Auto) 0.3 (0.2-1.2) % Lymph # (Auto) 1.23 (0.9-3.2) K/mm3 [place]pton # (Auto) 1.3 H (0.1-0.6) K/mm3 Eos # (Auto) 0.0 (0-0.3) K/mm3 Baso # (Auto) 0.1 (0.0-0.1) K/mm3 Abs Immat Gran (auto) 0.08 H (0.00-0.031) K/mm3 Absolute Neuts (auto) 15.0 H (1.3-6.7) K/mm3 Absolute Nucleated RBC 0.000 (0.0-0.012) K/mm3 Nucleated RBC % 0.0 (0.0-0.2) % Sodium 140 (137-145) mmol/L Potassium 3.6 (3.4-5.0) mmol/L Chloride 108 H (98-107) mmol/L Carbon Dioxide 18 L (22-30) mmol/L Anion Gap 14 H (4-12) mmol/L BUN 11 (7-17) mg/dL Creatinine 0.77 (0.7-1.0) mg/dL Estim Creat Clear Calc Not Reportable Estimated GFR > 60 (59 - ) Glucose 92 (65-110) mg/dL Calcium 9.1 (8.4-10.2) mg/dL Magnesium 1.7 (1.6-2.3) mg/dL Total Bilirubin 0.3 (0.2-1.3) mg/dL AST 32 (14-36) U/L ALT 19 (6-35) U/L Alkaline Phosphatase 66 (38-126) U/L Total Protein 7.5 (6.3-8.2) g/dL Albumin 4.6 (3.5-5.1) g/dL Lipase 117 (23-300) U/L Urine Color Yellow (Yellow) Urine Appearance Clear (Clear) Urine pH 7.5 (5.0-9.0) Ur Specific Elizabeth 1.018 (1.001-1.035) Urine Protein 1+ H (Negative) mg/dL Urine Glucose (UA) Negative (Negative) mg/dL Urine Ketones Trace H (Negative) mg/dL Ur Blood (Man) Negative (Negative) Urine Nitrate Negative (Negative) Urine Bilirubin Negative (Negative) Urine Urobilinogen 0.2 (<2.0) mg/dL Leukocyte Esterase Rfl Negative (Negative) CHASIDY/UL Urine RBC 0-2 (0-2) /hpf Urine WBC 0-5 (0-3) /hpf Ur Squamous Epith Cells None seen (Few) /hpf Urine Bacteria None seen /hpf Urine Casts 0-2 POC Urine HCG, Qual Negative (Negative) <Breana Duarte PA-C - Last Filed: 07/27/24 16:59> Lab Results 07/27/24 07/27/24 07/27/24 Range/Units 17:03 17:31 17:41 WBC 17.7 H (4.5-10.0) K/mm3 RBC 3.97 L (4.2-5.4) M/mm3 Hgb 12.1 (12.0-15.0) g/dL Hct 36.5 L (37.0-47.0) % MCV 91.9 (80-100) fl MCH 30.5 (26-34) pg MCHC 33.2 (32-36) g/dl RDW 12.8 (11.5-14.5) % Plt Count 346 D (150-375) k/mm3 MPV 10.0 (7.4-10.4) fl Immature Gran % (Auto) 0.5 (0-0.5) % Neut % (Auto) 85.1 H (45.5-73.1) % Lymph % (Auto) 7.0 L (18.3-44.2) % Upton % (Auto) 7.1 (2.6-8.5) % Eos % (Auto) 0.0 (0-4.4) % Baso % (Auto) 0.3 (0.2-1.2) % Lymph # (Auto) 1.23 (0.9-3.2) K/mm3 Upton # (Auto) 1.3 H (0.1-0.6) K/mm3 Eos # (Auto) 0.0 (0-0.3) K/mm3 Baso # (Auto) 0.1 (0.0-0.1) K/mm3 Abs Immat Gran (auto) 0.08 H (0.00-0.031) K/mm3 Absolute Neuts (auto) 15.0 H (1.3-6.7) K/mm3 Absolute Nucleated RBC 0.000 (0.0-0.012) K/mm3 Nucleated RBC % 0.0 (0.0-0.2) % Sodium 140 (137-145) mmol/L Potassium 3.6 (3.4-5.0) mmol/L Chloride 108 H (98-107) mmol/L Carbon Dioxide 18 L (22-30) mmol/L Anion Gap 14 H (4-12) mmol/L BUN 11 (7-17) mg/dL Creatinine 0.77 (0.7-1.0) mg/dL Estim Creat Clear Calc Not Reportable Estimated GFR > 60 (59 - ) Glucose 92 (65-110) mg/dL Calcium 9.1 (8.4-10.2) mg/dL Magnesium 1.7 (1.6-2.3) mg/dL Total Bilirubin 0.3 (0.2-1.3) mg/dL AST 32 (14-36) U/L ALT 19 (6-35) U/L Alkaline Phosphatase 66 (38-126) U/L Total Protein 7.5 (6.3-8.2) g/dL Albumin 4.6 (3.5-5.1) g/dL Lipase 117 (23-300) U/L Urine Color Yellow (Yellow) Urine Appearance Clear (Clear) Urine pH 7.5 (5.0-9.0) Ur Specific Elizabeth 1.018 (1.001-1.035) Urine Protein 1+ H (Negative) mg/dL Urine Glucose (UA) Negative (Negative) mg/dL Urine Ketones Trace H (Negative) mg/dL Ur Blood (Man) Negative (Negative) Urine Nitrate Negative (Negative) Urine Bilirubin Negative (Negative) Urine Urobilinogen 0.2 (<2.0) mg/dL Leukocyte Esterase Rfl Negative (Negative) CHASIDY/UL Urine RBC 0-2 (0-2) /hpf Urine WBC 0-5 (0-3) /hpf Ur Squamous Epith Cells None seen (Few) /hpf Urine Bacteria None seen /hpf Urine Casts 0-2 POC Urine HCG, Qual Negative (Negative) <Zuleyma Andrews PA-C - Last Filed: 07/27/24 20:34> Imaging Data Radiologist's impression: ITS Impressions Abdomen/Pelvis CT 07/27/24 19:18 IMPRESSION: No acute pathology detected within the abdomen or pelvis, as detailed above. <Zuleyma Andrews PA-C - Last Filed: 07/27/24 20:34> Critical Care Time Critical Care Time Critical Care Time: No <MERI Mead Last Filed: 07/27/24 20:34> Discharge Plan Discharge Clinical Impression: Cyclical vomiting, Dehydration <MERI Liang Last Filed: 07/27/24 16:59> Patient Disposition: Home <MERI Liang Last Filed: 07/27/24 16:59> Condition: Improved <MERI Liang Last Filed: 07/27/24 16:59> Instructions: Dehydration (ED), Acute Nausea and Vomiting (ED), Abdominal Pain (ED) <MERI Liang Last Filed: 07/27/24 16:59> Additional Instructions: Return to the ER if you experience fever, abdominal pain with nausea and vomiting, you are unable to keep down liquids or solids, or any other symptoms that are concerning to you Small, frequent meals. [place] diet. Remain well hydrated. Nausea medication as needed Follow up with your primary care doctor <MERI Liang Last Filed: 07/27/24 16:59> Patient Language: Moldovan <MERI Liang Last Filed: 07/27/24 16:59> Prescriptions: No Action olanzapine 15 mg tablet 15 tablet PO DAILY hydroxyzine pamoate [Vistaril] 25 mg capsule 25 mg PO TID PRN (Reason: anxiety) Qty: 20 0RF escitalopram oxalate 10 mg tablet 10 mg PO DAILY <MERI Liang Last Filed: 07/27/24 16:59> Follow-up/Referrals: PHYSICIAN NOT ON STAFF,NONSTAFF [Primary Care Provider] - <MERI Liang Last Filed: 07/27/24 16:59> Stand Alone Forms: Work/School Release IP <MERI Liang Last Filed: 07/27/24 16:59>
--- NOTE | 2024-07-27 16:55 | ECG_ITS ---
Test Date: 2024-07-27 17:36:12 Measurements Intervals [place] Rate: 106 P: 71 VT: 121 QRS: 78 QRSD: 78 T: 60 QT: 345 QTc: 458 Interpretive Statements SINUS TACHYCARDIA MINIMAL Q WAVES- ANTEROLATERAL LEADS BASELINE ARTIFACT- I, II, III, AVR, AVL, AVF, V1-V6 BORDERLINE ECG Compared to ECG 07/18/2024 20:12:38 HEART RATE HAS DECREASED Electronically Signed On 07-27-2024 18:41:21 CDT by Bertram Yousif D.O.
[2024-07-27] MEDS: SODIUM CHLORIDE 0.9% IV 1,000 ML 999 ML IV CONT (17:17)
[2024-07-27] MEDS: FAMOTIDINE 20 MG/2 ML VIAL IV PUSH (17:18)
[2024-07-27] MEDS: ONDANSETRON INJ 4 MG/2 ML VIAL IV PUSH (17:18)
[2024-07-27 17:27] LABS: Add Urine Microscopic? YES; Appearance Urine Clear (Clear); Bacteria Urine None Seen /hpf; Bilirubin Urine Negative (Negative); Blood Urine Negative (Negative); Color Urine Yellow (Yellow); Glucose Urine UA Negative (Negative); Ketones Urine Trace mg/dL (Negative); Leukocyte Esterase Ur Negative LEU/UL (Negative); Nitrate Urine Negative (Negative); Non Pathogenic Casts 0-2; Protein Urine 1+ mg/dL (Negative); RBC Urine 0-2 /hpf (0-2); Specific Grav Ur 1.018 (1.001-1.035); Squamous Epithelial Cell Urine None Seen /hpf (Few); Urobilinogen Urine 0.2 mg/dL (<2.0); WBC Urine 0-5 /hpf (0-3); pH Urine 7.5 (5.0-9.0)
[2024-07-27 17:42] LABS: BEDSIDEPREGUCG Negative (Negative)
[2024-07-27 17:53] LABS: Basophils Absolute Auto 0.1 K/mm3 (0.0-0.1); Basophils Percent Auto 0.3 % (0.2-1.2); Hematocrit 36.5 % (37.0-47.0); Hemoglobin 12.1 g/dL (12.0-15.0); Immature Granulocyte Absolute 0.08 K/mm3 (0.00-0.031); Immature Granulocyte Percent A 0.5 % (0-0.5); Lymphocytes Absolute Auto 1.23 K/mm3 (0.9-3.2); Mean Corpuscular HGB Conc 33.2 g/dl (32-36); Mean Corpuscular Hemoglobin 30.5 pg (26-34); Mean Corpuscular Volume 91.9 fl (80-100); Monocytes Absolute Auto 1.3 K/mm3 (0.1-0.6); Monocytes Percent Auto 7.1 % (2.6-8.5); Neutrophils Percent Auto 85.1 % (45.5-73.1); Platelet Count Result 346 k/mm3 (150-375); Red Blood Count 3.97 M/mm3 (4.2-5.4); Red Cell Distribution Width 12.8 % (11.5-14.5); White Blood Count 17.7 K/mm3 (4.5-10.0)
--- OUTSIDE RECORDS SUMMARY | 2024-07-27 18:02 | XMS_ITS | Clinical Summary ---
Author Organization [email or web address] Address [address] [place] [address] Care Team Providers Care Cloth Finishing Range Back Tender Name Role Phone Ronel Thornton DO Primary Care Provider [phone] Ronel Thornton DO Unavailable [phone] Source Comments [email or web address],non-owned Affiliates and Associated Physician Practices is amultiple site organization consisting of ambulatory clinics and hospital sitesin [place], [place], [place] and [place]. This disclosure is being madepursuant to the Care Everywhere program and may not contain all information available regarding this patient. Last updated 17.[email or web address] Allergies No known active allergies Medications * [...] 01/18/2020 Assessment & Plan (01/08/2021 3:06 PM TRUCK DOCK MATERIAL MOVER): Assessment: Major depressive disorder, generalized anxiety disorder and substance abuse disorder. Plan: - klonopin and neurontin are all habit forming, concerns they are addictive, plan to discuss snf goal of weaning as outpatient - must stop all alcohol and MJ - Increased Prozac to 40 - Increased zyprexa to 15 - Melatonin 6mg QHS for sleep - avoid narcotics - taper off zyprexa as outpatient per psychiatry recs Assessment & Plan (01/07/2021 4:50 PM TRUCK DOCK MATERIAL MOVER): Assessment: Major depressive disorder, generalized anxiety disorder and substance abuse disorder. Plan: - klonopin and neurontin are all habit forming, concerns they are addictive, plan to discuss snf goal of weaning as outpatient - must stop all alcohol and MJ - Increased Prozac to 40 - Increased zyprexa to 15 - Melatonin 6mg QHS for sleep - avoid narcotics - taper off zyprexa as outpatient per psychiatry recs Assessment & Plan (01/06/2021 5:55 PM TRUCK [employer]OCK MATERIAL MOVER): Assessment: Major depressive disorder, generalized anxiety disorder and substance abuse disorder. Plan: - klonopin and neurontin are all habit forming, concerns they are addictive, plan to discuss snf goal of weaning as outpatient - must [...] slowly. Assessment & Plan (04/07/2020 6:45 PM TRUCK DOCK MATERIAL MOVER): Assessment: Hx of major depressive disorder and generalized anxiety disorder. Pt has been seen by psychiatry and psychology, now improved since starting/optimizing zyprexa QHS, clonazepam TID, and prozac QD. Plan: - Prozac 30 mg QD (dose of 30 mg started on 03/09/20, Prozac initially began 02/07) - Zyprexa 5 mg QHS - Klonopin 0.5mg TID Assessment & Plan (04/06/2020 3:54 PM TRUCK [employer]OCK MATERIAL MOVER): Assessment: Hx of major depressive disorder and [...] TID Assessment & Plan (04/05/2020 10:49 AM TRUCK DOCK MATERIAL MOVER): Assessment: Hx of major depressive disorder and [...] TID Assessment & Plan (04/04/2020 10:23 AM TRUCK DOCK MATERIAL MOVER): Assessment: Hx of major depressive disorder and [...] TID Assessment & Plan (04/03/2020 6:30 PM TRUCK DOCK MATERIAL MOVER): Assessment: Hx of major depressive disorder and [...] TID Assessment & Plan (04/01/2020 11:15 AM TRUCK DOCK MATERIAL MOVER): Assessment: Hx of major depressive disorder and [...] dose) Assessment & Plan (03/31/2020 10:07 AM TRUCK DOCK MATERIAL MOVER): Assessment: Hx of major depressive disorder and [...] dose) Assessment & Plan (03/30/2020 2:24 PM TRUCK [employer]OCK MATERIAL MOVER): Assessment: Hx of major depressive disorder and generalized anxiety disorder. Pt seen by psychiatry on admission and was started elavil, but continued to have anxiety. Elavil was discontinued due to persistent tachycardia and hypotension. Based [facility] and [facility], she was started on zyprexa [...] dose) Assessment & Plan (03/29/2020 6:50 AM TRUCK DOCK MATERIAL MOVER): Assessment: Hx of major depressive disorder and [...] dose) Assessment & Plan (03/27/2020 10:30 AM TRUCK D[employer] MATERIAL MOVER): Assessment: Hx of major depressive disorder and [...] dose) Assessment & Plan (03/26/2020 11:15 AM TR[employer] MATERIAL MOVER): Assessment: Hx of major depressive disorder and [...] dose) Assessment & Plan (03/25/2020 8:58 AM TRUCK D[employer] MATERIAL MOVER): Assessment: Hx of major depressive disorder and [...] dose) Assessment & Plan (03/24/2020 6:44 AM TRUCK DOCK MATERIAL MOVER): Assessment: Hx of major depressive disorder and [...] dose) Assessment & Plan (03/23/2020 12:19 PM TRUCK [employer]OCK MATERIAL MOVER): Assessment: Hx of major depressive disorder and [...] dose) Assessment & Plan (03/22/2020 10:47 AM TR[employer] MATERIAL MOVER): Assessment: Hx of major depressive disorder and [...] recommendations) Assessment & Plan (03/21/2020 3:11 PM TRUCK [employer] MATERIAL MOVER): Assessment: Hx of major depressive disorder and [...] mg. Assessment & Plan (03/20/2020 10:31 AM TRUCK DOCK MATERIAL MOVER): Assessment: Hx of major depressive disorder and [...] 03/21. Assessment & Plan (03/19/2020 10:38 AM TRUCK DOCK MATERIAL MOVER): Assessment: Hx of major depressive disorder and [...] withdrawal Assessment & Plan (03/18/2020 12:58 PM TR[employer] MATERIAL MOVER): Assessment: Hx of major depressive disorder and [...] anxiety Assessment & Plan (03/17/2020 10:33 AM TR[employer] MATERIAL MOVER): Assessment: Hx of major depressive disorder and [...] appreciated Assessment & Plan (03/16/2020 2:24 PM TR[employer] MATERIAL MOVER): Assessment: Hx of major depressive disorder and [...] recommendations Assessment & Plan (03/15/2020 11:11 AM TR[employer] MATERIAL MOVER): Assessment: Hx of major depressive disorder and [...] anxiety Assessment & Plan (03/14/2020 6:28 AM TR[employer] MATERIAL MOVER): Assessment: Hx of major depressive disorder and [...] anxiety Assessment & Plan (03/13/2020 6:28 AM TRUCK D[employer] MATERIAL MOVER): Assessment: Hx of major depressive disorder and [...] anxiety Assessment & Plan (03/12/2020 11:35 AM TR[employer] MATERIAL MOVER): Assessment: Hx of major depressive disorder and [...] anxiety Assessment & Plan (03/11/2020 12:43 PM TR[employer] MATERIAL MOVER): Assessment: Hx of major depressive disorder and [...] anxiety Assessment & Plan (03/10/2020 6:11 AM TR[employer] MATERIAL MOVER): Assessment: Hx of major depressive disorder and [...] anxiety Assessment & Plan (03/09/2020 6:24 AM TRUCK D[employer] MATERIAL MOVER): Assessment: Hx of major depressive disorder and [...] anxiety Assessment & Plan (03/08/2020 10:51 AM TR[employer] DOCK MATERIAL MOVER): Assessment: Hx of major depressive disorder and [...] anxiety Assessment & Plan (03/07/2020 9:15 AM TRUCK DOCK MATERIAL MOVER): Assessment: Hx of major depressive disorder and [...] -Develop daily schedule with assistance of child development consultant-Alma Assessment & Plan (03/06/2020 10:09 AM TR[employer] D[employer] MATERIAL MOVER): Assessment: Hx of major depressive disorder and [...] anxiety Assessment & Plan (03/05/2020 9:56 AM TRUCK DOCK MATERIAL MOVER): Assessment: Hx of major depressive disorder and [...] anxiety Assessment & Plan (03/04/2020 12:58 PM TRUCK DOCK MATERIAL MOVER): Assessment: Hx of major depressive disorder and [...] anxiety Assessment & Plan (03/03/2020 3:16 PM TRUCK DOCK MATERIAL MOVER): Assessment: Hx of major depressive disorder and [...] anxiety Assessment & Plan (03/01/2020 12:04 PM TR[employer] MATERIAL MOVER): Assessment: Hx of major depressive disorder and [...] anxiety Assessment & Plan (02/29/2020 12:53 PM TRUCK D[employer] MATERIAL MOVER): Assessment: Hx of major depressive disorder and [...] anxiety Assessment & Plan (02/28/2020 9:22 AM TRUCK DOCK MATERIAL MOVER): Assessment: Hx of major depressive disorder and [...] anxiety Assessment & Plan (02/27/2020 10:27 AM TRUCK [employer]OCK MATERIAL MOVER): Assessment: Hx of major depressive disorder and [...] negative Assessment & Plan (02/26/2020 11:12 AM TRUCK DOCK MATERIAL MOVER): Assessment: Hx of major depressive disorder and [...] pending Assessment & Plan (02/25/2020 9:33 AM TRUCK DOCK MATERIAL MOVER): Assessment: Hx of major depressive disorder and [...] pending Assessment & Plan (02/24/2020 6:51 AM TRUCK DOCK MATERIAL MOVER): Assessment: Hx of major depressive disorder and [...] pending Assessment & Plan (02/23/2020 10:19 AM TRUCK [employer]OCK MATERIAL MOVER): Assessment: Hx of major depressive disorder and [...] pending Assessment & Plan (02/22/2020 11:07 AM TR[employer] MATERIAL MOVER): Assessment: Hx of major depressive disorder and [...] QHS Assessment & Plan (02/21/2020 10:54 AM TRUCK DOCK MATERIAL MOVER): Assessment: History of major depressive disorder and [...] tablet Assessment & Plan (02/20/2020 11:33 AM TRUCK [employer] MATERIAL MOVER): Assessment: History of major depressive disorder and [...] tablet Assessment & Plan (02/19/2020 3:05 PM TR[employer] MATERIAL MOVER): Assessment: History of major depressive disorder and [...] tablet Assessment & Plan (02/18/2020 10:13 AM TRUCK DOCK MATERIAL MOVER): Assessment: History of major depressive disorder and [...] tablet Assessment & Plan (02/17/2020 12:26 PM TR[employer] MATERIAL MOVER): Assessment: History of major depressive disorder and [...] tablet Assessment & Plan (02/16/2020 1:14 PM TRUCK [employer] MATERIAL MOVER): Assessment: History of major depressive disorder and [...] tablet Assessment & Plan (02/15/2020 12:31 PM TRUCK D[employer] MATERIAL MOVER): Assessment: History of major depressive disorder and [...] tablet Assessment & Plan (02/14/2020 2:24 PM TRUCK DOCK MATERIAL MOVER): Assessment: History of major depressive disorder and [...] tablet Assessment & Plan (02/13/2020 12:00 PM TRUCK DOCK MATERIAL MOVER): Assessment: History of major depressive disorder and [...] tablet Assessment & Plan (02/12/2020 11:20 AM TRUCK DOCK MATERIAL MOVER): Assessment: History of major depressive disorder and [...] tablet Assessment & Plan (02/11/2020 11:54 AM TRUCK DOCK MATERIAL MOVER): Assessment: History of major depressive disorder and [...] tablet Assessment & Plan (02/10/2020 12:09 PM TRUCK DOCK MATERIAL MOVER): Assessment: History of major depressive disorder and [...] tablet Assessment & Plan (02/09/2020 11:50 AM TRUCK DOCK MATERIAL MOVER): Assessment: History of major depressive disorder and [...] [place] Assessment & Plan (02/08/2020 12:54 PM TRUCK DOCK MATERIAL MOVER): Assessment: History of major depressive disorder and [...] [place] Assessment & Plan (02/07/2020 11:47 AM TRUCK DOCK MATERIAL MOVER): Assessment: History of major depressive disorder and [...] [place] Assessment & Plan (02/06/2020 8:12 AM TRUCK D[employer] MATERIAL MOVER): Assessment: History of major depressive disorder and [...] [place] Assessment & Plan (02/05/2020 9:12 AM TRUCK DOCK MATERIAL MOVER): Assessment: History of major depressive disorder and [...] [place] Assessment & Plan (02/04/2020 12:43 PM TRUCK [employer] MATERIAL MOVER): Assessment: History of major depressive disorder and [...] [place] Assessment & Plan (02/03/2020 2:28 PM TRUCK DOCK MATERIAL MOVER): Assessment: History of major depressive disorder and [...] [place] Assessment & Plan (02/02/2020 4:02 PM TRUCK DOCK MATERIAL MOVER): Assessment: History of major depressive disorder and [...] [place] Assessment & Plan (02/01/2020 12:12 PM TRUCK DOCK MATERIAL MOVER): Assessment: History of major depressive disorder and [...] [place] Assessment & Plan (01/31/2020 1:04 PM TRUCK D[employer] MATERIAL MOVER): Assessment: History of major depressive disorder and [...] [place] Assessment & Plan (01/30/2020 10:30 AM TRUCK D[employer] MATERIAL MOVER): Assessment: History of major depressive disorder and [...] [place] Assessment & Plan (01/29/2020 9:40 PM TRUCK DOCK MATERIAL MOVER): Assessment: History of major depressive disorder and [...] [place] Assessment & Plan (01/28/2020 11:59 AM TRUCK DOCK MATERIAL MOVER): Assessment: History of major depressive disorder and [...] lunch Assessment & Plan (01/27/2020 3:57 PM TR[employer] MATERIAL MOVER): Assessment: History of major depressive disorder and [...] lunch Assessment & Plan (01/26/2020 6:01 PM TR[employer] MATERIAL MOVER): Assessment: History of major depressive disorder and [...] [place] Assessment & Plan (01/25/2020 2:56 PM TR[employer] MATERIAL MOVER): Assessment: History of major depressive disorder and [...] PO. Assessment & Plan (01/24/2020 8:11 AM TRUCK [employer] MATERIAL MOVER): Assessment: History of major depressive disorder and [...] (02/22/20) Assessment & Plan (01/23/2020 7:09 AM TR[employer] D[employer] MATERIAL MOVER): Assessment: History of major depressive disorder and [...] (02/22/20) Assessment & Plan (01/22/2020 7:52 AM TRUCK DOCK MATERIAL MOVER): Assessment: History of major depressive disorder and [...] (02/22/20) Assessment & Plan (01/21/2020 7:40 AM TRUCK DOCK MATERIAL MOVER): Assessment: History of major depressive disorder and [...] (02/22/20) Assessment & Plan (01/20/2020 7:36 AM TRUCK DOCK MATERIAL MOVER): Assessment: History of major depressive disorder and [...] (02/22/20) Assessment & Plan (01/19/2020 7:22 AM TRUCK DOCK MATERIAL MOVER): Assessment: History of major depressive disorder and [...] (02/22/20) Assessment & Plan (01/18/2020 4:35 PM TRUCK DOCK MATERIAL MOVER): Assessment: History of major depressive disorder and [...] range. Assessment & Plan (04/08/2020 1:31 PM TRUCK DOCK MATERIAL MOVER): Assessment: Malnutrition is secondary to ARFID, SMA [...] PT Assessment & Plan (04/07/2020 2:52 PM TRUCK DOCK MATERIAL MOVER): Assessment: Malnutrition is secondary to ARFID, SMA [...] PT Assessment & Plan (04/07/2020 6:44 PM TRUCK DOCK MATERIAL MOVER): Assessment: Marlee is a 19 year old [...] follow up with adolescent medicine on 04/18, [facility] on 05/02, and and scheduling Psych intake visit SOCIAL: - General medicine team spoke with and updated mother on 04/06 LABS: daily urine spec gravity, BMP/Mg/Phos Q / Assessment & Plan (04/06/2020 6:45 PM TR[employer] DOCK MATERIAL MOVER): Assessment: Marlee is a 19 year old [...] / Assessment & Plan (04/05/2020 3:22 PM TRUCK DOCK MATERIAL MOVER): Assessment: Malnutrition is secondary to ARFID, SMA [...] PT Assessment & Plan (04/05/2020 10:49 AM TRUCK DOCK MATERIAL MOVER): Assessment: Marlee is a 19 year old [...] / Assessment & Plan (04/04/2020 3:59 PM TRUCK DOCK MATERIAL MOVER): Assessment: Malnutrition is secondary to ARFID, SMA [...] daily Assessment & Plan (04/04/2020 10:21 AM TRUCK DOCK MATERIAL MOVER): Assessment: Marlee is a 19 year old [...] in room. May have water from [facility] cup. Oral fluids limited to 250 [...] / Assessment & Plan (04/03/2020 12:59 PM TRUCK DOCK MATERIAL MOVER): Assessment: Marlee is a 19 year old [...] daily Assessment & Plan (04/02/2020 4:19 PM TRUCK [employer] MATERIAL MOVER): Assessment: Marlee is a 19 year old [...] daily Assessment & Plan (04/01/2020 11:55 AM TR[employer] MATERIAL MOVER): Assessment: Malnutrition is secondary to ARFID and [...] daily Assessment & Plan (04/01/2020 11:15 AM TR[employer] MATERIAL MOVER): Assessment: Marlee is a 19 year old [...] daily Assessment & Plan (03/31/2020 12:05 PM TRUCK [employer] MATERIAL MOVER): Assessment: Malnutrition is secondary to ARFID and [...] daily Assessment & Plan (03/31/2020 10:06 AM TRUCK DOCK MATERIAL MOVER): Assessment: Marlee is a 19 year old [...] daily Assessment & Plan (03/30/2020 2:24 PM TRUCK D[employer] MATERIAL MOVER): Assessment: Marlee is a 19 year old [...] daily Assessment & Plan (03/29/2020 10:40 AM TRUCK DOCK MATERIAL MOVER): Assessment: Marlee is a 19 year old [...] daily Assessment & Plan (03/28/2020 12:29 PM TRUCK DOCK MATERIAL MOVER): Assessment: Marlee is a 19 year old [...] allowed in room. May have water from [employer] cup. Oral fluids limited to 250 mL [...] daily Assessment & Plan (03/27/2020 10:34 AM TRUCK DOCK MATERIAL MOVER): Assessment: Marlee is a 19 year old [...] night 03/27: Increase to 50 mL/hr tonight. [facility] is aware of increase but did not [...] daily Assessment & Plan (03/26/2020 11:20 AM TRUCK DOCK MATERIAL MOVER): Assessment: Marlee is a 19 year old [...] daily Assessment & Plan (03/25/2020 12:30 PM TRUCK DOCK MATERIAL MOVER): Assessment: Marlee is a 19 year old [...] daily Assessment & Plan (03/24/2020 5:02 PM TRUCK DOCK MATERIAL MOVER): Assessment: Malnutrition is secondary to ARFID and [...] anxiety Assessment & Plan (03/24/2020 11:19 AM TRUCK D[employer] MATERIAL MOVER): Assessment: Marlee is a 19 year old [...] daily Assessment & Plan (03/23/2020 12:20 PM TRUCK D[employer] MATERIAL MOVER): Assessment: Marlee is a 19 year old [...] daily Assessment & Plan (03/22/2020 12:20 PM TRUCK DOCK MATERIAL MOVER): Assessment: Marlee is a 19 year old [...] daily Assessment & Plan (03/21/2020 3:10 PM TRUCK DOCK MATERIAL MOVER): Assessment: Marlee is a 19 year old [...] 03/15/2020. Assessment & Plan (03/20/2020 10:32 AM TRUCK DOCK MATERIAL MOVER): Assessment: Marlee is a 19 year old [...] 03/15/2020. Assessment & Plan (03/19/2020 10:37 AM TRUCK DOCK MATERIAL MOVER): Assessment: Marlee is a 19 year old [...] 03/15/2020. Assessment & Plan (03/18/2020 1:00 PM TRUCK DOCK MATERIAL MOVER): Assessment: Marlee is a 19 year old [...] 03/15/2020. Assessment & Plan (03/17/2020 10:36 AM TRUCK DOCK MATERIAL MOVER): Assessment: Marlee is a 19 year old [...] 03/15/2020. Assessment & Plan (03/16/2020 2:10 PM TRUCK DOCK MATERIAL MOVER): Assessment: Marlee is a 19 year old [...] 03/15/2020. Assessment & Plan (03/15/2020 11:10 AM TRUCK DOCK MATERIAL MOVER): Assessment: Marlee is a 19 year old [...] 03/15/2020 Assessment & Plan (03/14/2020 9:53 AM TRUCK DOCK MATERIAL MOVER): Assessment: Marlee is a 19 year old [...] 03/15/2020 Assessment & Plan (03/13/2020 9:39 AM TRUCK DOCK MATERIAL MOVER): Assessment: Marlee is a 19 year old [...] week Assessment & Plan (03/12/2020 11:35 AM TRUCK DOCK MATERIAL MOVER): Assessment: Marlee is a 19 year old [...] week Assessment & Plan (03/11/2020 12:43 PM TRUCK D[employer] MATERIAL MOVER): Assessment: Marlee is a 19 year old [...] week Assessment & Plan (03/10/2020 9:12 AM TRUCK DOCK MATERIAL MOVER): Assessment: Marlee is a 19 year old [...] in Assessment & Plan (03/09/2020 10:22 AM TRUCK DOCK MATERIAL MOVER): Assessment: Marlee is a 19 year old [...] in Assessment & Plan (03/08/2020 10:52 AM TRUCK DOCK MATERIAL MOVER): Assessment: Marlee is a 19 year old [...] in Assessment & Plan (03/07/2020 9:18 AM TRUCK DOCK MATERIAL MOVER): Assessment: Marlee is a 19 year old [...] in Assessment & Plan (03/06/2020 10:09 AM TRUCK DOCK MATERIAL MOVER): Assessment: Marlee is a 19 year old [...] in Assessment & Plan (03/05/2020 9:56 AM TRUCK DOCK MATERIAL MOVER): Assessment: Marlee is a 19 year old [...] in Assessment & Plan (03/04/2020 12:58 PM TR[employer] MATERIAL MOVER): Assessment: Marlee is a 19 year old [...] A/P Assessment & Plan (03/03/2020 3:15 PM TR[employer] MATERIAL MOVER): Assessment: Marlee is a 19 year old [...] A/P Assessment & Plan (03/02/2020 12:06 PM TRUCK D[employer] MATERIAL MOVER): Assessment: Marlee is a 19 year old [...] A/P Assessment & Plan (03/01/2020 12:05 PM TRUCK D[employer] MATERIAL MOVER): Assessment: Marlee is a 19 year old [...] A/P Assessment & Plan (02/29/2020 12:52 PM TRUCK DOCK MATERIAL MOVER): Assessment: Marlee is a 19 year old [...] A/P Assessment & Plan (02/28/2020 9:12 AM TRUCK DOCK MATERIAL MOVER): Assessment: Marlee is a 19 year old [...] A/P Assessment & Plan (02/27/2020 10:03 AM TRUCK DOCK MATERIAL MOVER): Assessment: Marlee is a 19 year old [...] A/P Assessment & Plan (02/26/2020 11:12 AM TRUCK DOCK MATERIAL MOVER): Assessment: Marlee is a 19 year old [...] A/P Assessment & Plan (02/25/2020 9:32 AM TRUCK DOCK MATERIAL MOVER): Assessment: Marlee is a 19 year old [...] A/P Assessment & Plan (02/24/2020 10:42 AM TRUCK DOCK MATERIAL MOVER): Assessment: Marlee is a 19 year old [...] A/P Assessment & Plan (02/23/2020 10:22 AM TRUCK DOCK MATERIAL MOVER): Assessment: Marlee is a 19 year old [...] A/P Assessment & Plan (02/22/2020 11:25 AM TRUCK DOCK MATERIAL MOVER): Assessment: Marlee is a 19 year old [...] A/P Assessment & Plan (02/21/2020 10:54 AM TRUCK DOCK MATERIAL MOVER): Assessment: Marlee is a 19 year old [...] A/P Assessment & Plan (02/20/2020 11:31 AM TRUCK DOCK MATERIAL MOVER): Assessment: Marlee is a 19 year old [...] A/P Assessment & Plan (02/19/2020 3:04 PM TRUCK D[employer] MATERIAL MOVER): Assessment: Marlee is a 19 year old [...] TPN. Assessment & Plan (02/18/2020 10:14 AM TRUCK DOCK MATERIAL MOVER): Assessment: Marlee is a 19 year old [...] Sat) Assessment & Plan (02/17/2020 12:30 PM TRUCK D[employer] MATERIAL MOVER): Assessment: Marlee is a 19 year old [...] pending Assessment & Plan (02/16/2020 2:29 PM TRUCK DOCK MATERIAL MOVER): Assessment: Marlee is a 19 year old [...] pending Assessment & Plan (02/15/2020 12:33 PM TRUCK DOCK MATERIAL MOVER): Assessment: Marlee is a 19 year old [...] pending Assessment & Plan (02/14/2020 2:23 PM TRUCK DOCK MATERIAL MOVER): Assessment: Marlee is a 19 year old [...] pending Assessment & Plan (02/13/2020 11:59 AM TRUCK DOCK MATERIAL MOVER): Assessment: Marlee is a 19 year old [...] pending Assessment & Plan (02/12/2020 11:49 AM TRUCK DOCK MATERIAL MOVER): Assessment: Marlee is a 19 year old [...] recs Assessment & Plan (02/11/2020 11:56 AM TRUCK DOCK MATERIAL MOVER): Assessment: Marlee is a 19 year old [...] recs Assessment & Plan (02/10/2020 12:11 PM TRUCK DOCK MATERIAL MOVER): Assessment: Marlee is a 19 year old [...] SG) Assessment & Plan (02/09/2020 11:49 AM TRUCK DOCK MATERIAL MOVER): Assessment: Marlee is a 19 year old [...] SG) Assessment & Plan (02/08/2020 12:54 PM TRUCK DOCK MATERIAL MOVER): Assessment: Marlee is a 19 year old [...] recs. Assessment & Plan (02/07/2020 12:06 PM TRUCK D[employer] MATERIAL MOVER): Assessment: Marlee is a 19 year old [...] SG) Assessment & Plan (02/06/2020 8:12 AM TRUCK DOCK MATERIAL MOVER): Assessment: Marlee is a 19 year old [...] SG) Assessment & Plan (02/05/2020 9:12 AM TRUCK DOCK MATERIAL MOVER): Assessment: Marlee is a 19 year old [...] TG) Assessment & Plan (02/04/2020 12:52 PM TRUCK DOCK MATERIAL MOVER): Assessment: Marlee is a 19 year old [...] TG) Assessment & Plan (02/03/2020 2:38 PM TRUCK DOCK MATERIAL MOVER): Assessment: Marlee is a 19 year old [...] TG) Assessment & Plan (02/02/2020 4:02 PM TRUCK DOCK MATERIAL MOVER): Assessment: Marlee is a 19 year old [...] QOD Assessment & Plan (02/01/2020 12:08 PM TRUCK DOCK MATERIAL MOVER): Assessment: Marlee is a 19 year old [...] RBCs. Assessment & Plan (01/31/2020 1:05 PM TR[employer] D[employer] MATERIAL MOVER): Assessment: Marlee is a 19 year old [...] hematuria Assessment & Plan (01/30/2020 10:30 AM TR[employer] D[employer] MATERIAL MOVER): Assessment: Marlee is a 19 year old [...] 10.2 Assessment & Plan (01/29/2020 9:39 PM TR[employer] D[employer] MATERIAL MOVER): Assessment: Marlee is a 19 year old [...] syndrome Assessment & Plan (01/28/2020 11:59 AM TRUCK DOCK MATERIAL MOVER): Assessment: Marlee is a 19 year old [...] QOD Assessment & Plan (01/27/2020 3:59 PM TRUCK DOCK MATERIAL MOVER): Assessment: Marlee is a 19 year old [...] QOD Assessment & Plan (01/26/2020 5:14 PM TRUCK DOCK MATERIAL MOVER): Assessment: Marlee is a 19 year old [...] QOD Assessment & Plan (01/25/2020 2:58 PM TRUCK DOCK MATERIAL MOVER): Assessment: Marlee is a 19 year old [...] QOD Assessment & Plan (01/24/2020 11:54 AM TRUCK DOCK MATERIAL MOVER): Assessment: Marlee is a 19 year old [...] orthostatics Assessment & Plan (01/23/2020 7:09 AM TRUCK DOCK MATERIAL MOVER): Assessment: Marlee is a 19 year old [...] orthostatics Assessment & Plan (01/22/2020 4:25 PM TRUCK DOCK MATERIAL MOVER): Assessment: Marlee is a 19 year old [...] orthostatics Assessment & Plan (01/21/2020 8:15 AM TRUCK DOCK MATERIAL MOVER): Assessment: Marlee Chavez is a 19 year [...] orthostatics Assessment & Plan (01/20/2020 7:36 AM TRUCK DOCK MATERIAL MOVER): Assessment: Marlee Chavez is a 19 year [...] orthostatics Assessment & Plan (01/19/2020 7:20 AM TRUCK DOCK MATERIAL MOVER): Assessment: Marlee Chavez is a 19 year [...] orthostatics Assessment & Plan (01/18/2020 4:30 PM TRUCK D[employer] MATERIAL MOVER): Assessment: Marlee Chavez is a 19 year [...] consult Assessment & Plan (03/27/2020 10:35 AM TR[employer] D[employer] MATERIAL MOVER): Assessment: Marlee is admitted on ED Protocol for severe malnutrition. Following feeding plan per Adolescent Medicine and Nutrition. Plan: - see plan under ARFID problem Assessment & Plan (03/26/2020 11:20 AM TRUCK DOCK MATERIAL MOVER): Assessment: Marlee is admitted on ED Protocol for severe malnutrition. Following feeding plan per Adolescent Medicine and Nutrition. Plan: - see plan under ARFID problem Assessment & Plan (03/24/2020 11:19 AM TRUCK DOCK MATERIAL MOVER): Assessment: Marlee is admitted on ED Protocol for severe malnutrition. Following feeding plan per Adolescent Medicine and Nutrition. Plan: - see plan under ARFID problem Assessment & Plan (03/23/2020 9:00 AM TRUCK DOCK MATERIAL MOVER): Assessment: Marlee is admitted on ED Protocol for severe malnutrition. Following feeding plan per Adolescent Medicine and Nutrition. Plan: - see plan under ARFID problem Assessment & Plan (03/22/2020 12:21 PM TRUCK DOCK MATERIAL MOVER): Assessment: Marlee is admitted on ED Protocol for severe malnutrition. Following feeding plan per Adolescent Medicine and Nutrition. Plan: - see plan under ARFID problem Assessment & Plan (03/17/2020 4:26 PM TRUCK DOCK MATERIAL MOVER): Assessment: Malnutrition is secondary to ARFID and [...] anxiety Assessment & Plan (03/15/2020 11:10 AM TRUCK D[employer] MATERIAL MOVER): Assessment: Marlee is admitted on ED Protocol for severe malnutrition. Following feeding plan per Adolescent Medicine and Nutrition. Plan: - see plan under ARFID problem Assessment & Plan (03/10/2020 11:17 AM TRUCK DOCK MATERIAL MOVER): Assessment: Malnutrition is secondary to ARFID and [...] needed Assessment & Plan (03/06/2020 10:09 AM TRUCK [employer] MATERIAL MOVER): Assessment: Marlee is admitted on ED Protocol for severe malnutrition. Following feeding plan per Adolescent Medicine and Nutrition. Plan: - see plan under ARFID problem Assessment & Plan (03/04/2020 1:41 PM TRUCK DOCK MATERIAL MOVER): Assessment: Marlee is admitted on ED Protocol for severe malnutrition. Following feeding plan per Adolescent Medicine and Nutrition. Plan: - see plan under ARFID problem Assessment & Plan (03/04/2020 11:50 AM TRUCK DOCK MATERIAL MOVER): Assessment: Marlee is admitted on ED Protocol for severe malnutrition. Following feeding plan per Adolescent Medicine and Nutrition. Plan: - see plan under ARFID problem Assessment & Plan (03/03/2020 3:53 PM TRUCK DOCK MATERIAL MOVER): Assessment: Malnutrition is secondary to ARFID and [...] dad. Assessment & Plan (02/27/2020 9:57 AM TRUCK DOCK MATERIAL MOVER): Assessment: Marlee is admitted on ED Protocol for severe malnutrition. Following feeding plan per Adolescent Medicine and Nutrition. Plan: - see plan under ARFID problem Assessment & Plan (02/26/2020 9:59 AM TRUCK DOCK MATERIAL MOVER): Assessment: Malnutrition is secondary to ARFID and [...] plan. Assessment & Plan (02/25/2020 5:48 PM TRUCK DOCK MATERIAL MOVER): Assessment: Malnutrition is secondary to ARFID and [...] plan. Assessment & Plan (02/18/2020 4:54 PM TRUCK DOCK MATERIAL MOVER): Assessment: Malnutrition is secondary to ARFID and [...] daily Assessment & Plan (02/11/2020 11:47 AM TRUCK [employer] MATERIAL MOVER): Assessment: Malnutrition is secondary to ARFID and [...] BID Assessment & Plan (02/09/2020 11:50 AM TRUCK DOCK MATERIAL MOVER): Assessment: Marlee is admitted on ED Protocol for severe malnutrition. Following feeding plan per Adolescent Medicine and Nutrition. Plan: - see plan under ARFID problem Assessment & Plan (02/07/2020 11:47 AM TRUCK DOCK MATERIAL MOVER): Assessment: Marlee is admitted on ED Protocol for severe malnutrition. Following feeding plan per Adolescent Medicine and Nutrition. Plan: - see plan under ARFID problem Assessment & Plan (02/06/2020 8:12 AM TRUCK DOCK MATERIAL MOVER): Assessment: Marlee is admitted on ED Protocol for severe malnutrition. Following feeding plan per Adolescent Medicine and Nutrition. Plan: - see plan under ARFID problem Assessment & Plan (02/05/2020 9:01 AM TRUCK [employer] MATERIAL MOVER): Assessment: Marlee is admitted on ED Protocol for severe malnutrition. Following feeding plan per Adolescent Medicine and Nutrition. Plan: - see plan under ARFID problem Assessment & Plan (02/04/2020 12:34 PM TRUCK D[employer] MATERIAL MOVER): Assessment: Marlee is admitted on ED Protocol for severe malnutrition. Following feeding plan per Adolescent Medicine and Nutrition. Plan: - see plan under ARFID problem Assessment & Plan (02/03/2020 2:28 PM TRUCK D[employer] MATERIAL MOVER): Assessment: Marlee is admitted on ED Protocol for severe malnutrition. Following feeding plan per Adolescent Medicine and Nutrition. Plan: - see plan under ARFID problem Assessment & Plan (02/02/2020 3:57 PM TRUCK [employer] MATERIAL MOVER): Assessment: Marlee is admitted on ED Protocol for severe malnutrition. Following feeding plan per Adolescent Medicine and Nutrition. Plan: - see plan under ARFID problem Assessment & Plan (02/01/2020 12:10 PM TRUCK D[employer] MATERIAL MOVER): Assessment: Marlee is admitted on ED Protocol for severe malnutrition. Following feeding plan per Adolescent Medicine and Nutrition. Plan: - see plan under ARFID problem Assessment & Plan (01/31/2020 1:04 PM TRUCK [employer] MATERIAL MOVER): Assessment: Marlee is admitted on ED Protocol for severe malnutrition. Following feeding plan per Adolescent Medicine and Nutrition. Plan: - see plan under ARFID problem Assessment & Plan (01/30/2020 10:28 AM TRUCK D[employer] MATERIAL MOVER): Assessment: Marlee is admitted on ED Protocol for severe malnutrition. Following feeding plan per Adolescent Medicine and Nutrition. Plan: - see plan under ARFID problem Assessment & Plan (01/28/2020 4:29 PM TRUCK [employer] MATERIAL MOVER): Assessment: Malnutrition is secondary to ARFID and [...] BID Assessment & Plan (01/24/2020 11:54 AM TRUCK [employer] MATERIAL MOVER): Assessment: Marlee is admitted on ED Protocol for severe malnutrition. Following feeding plan per Adolescent Medicine and Nutrition. Plan: - see plan under ARFID problem Assessment & Plan (01/23/2020 7:09 AM TRUCK [employer] MATERIAL MOVER): Assessment: Marlee is admitted on ED Protocol for severe malnutrition. Following feeding plan per Adolescent Medicine and Nutrition. Plan: - see plan under ARFID problem Assessment & Plan (01/22/2020 9:48 AM TRUCK DOCK MATERIAL MOVER): Assessment: Malnutrition is secondary to ARFID and [...] () Assessment & Plan (01/22/2020 7:52 AM TRUCK DOCK MATERIAL MOVER): Assessment: Marlee is admitted on ED Protocol for severe malnutrition. Following feeding plan per Adolescent Medicine and Nutrition. Plan: - see plan under ARFID problem Assessment & Plan (01/21/2020 10:33 AM TRUCK DOCK MATERIAL MOVER): Assessment: Malnutrition is secondary to ARFID and [...] () Assessment & Plan (01/21/2020 7:40 AM TRUCK DOCK MATERIAL MOVER): Assessment: Marlee is admitted on ED Protocol for severe malnutrition. Following feeding plan per Adolescent Medicine and Nutrition. Plan: - see plan under ARFID problem Assessment & Plan (01/20/2020 7:36 AM TRUCK DOCK MATERIAL MOVER): Assessment: Marlee is admitted on ED Protocol for severe malnutrition. Following feeding plan per Adolescent Medicine and Nutrition. Plan: - see plan under ARFID problem Assessment & Plan (01/19/2020 7:22 AM TRUCK DOCK MATERIAL MOVER): Assessment: Marlee is admitted on ED Protocol for severe malnutrition. Following feeding plan per Adolescent Medicine and Nutrition. Plan: - see plan under ARFID problem Assessment & Plan (01/18/2020 4:25 PM TRUCK DOCK MATERIAL MOVER): Assessment: Marlee Chavez is a 19 year [...] orthostatics Assessment & Plan (01/17/2020 12:38 PM TRUCK DOCK MATERIAL MOVER): Assessment: Marlee Chavez is a 19 year [...] anxiety Assessment & Plan (01/16/2020 1:41 PM TRUCK D[employer] MATERIAL MOVER): Assessment: Marlee Chavez is a 19 year [...] anxiety Assessment & Plan (01/15/2020 8:49 PM TRUCK [employer] MATERIAL MOVER): Assessment: Malnutrition is secondary to ARFID and [...] counseling. Assessment & Plan (01/15/2020 11:57 AM TRUCK DOCK MATERIAL MOVER): Assessment: Marlee Chavez is a 19 year [...] anxiety Assessment & Plan (01/14/2020 1:00 PM TRUCK D[employer] MATERIAL MOVER): Assessment: Malnutrition is secondary to ARFID and [...] () Assessment & Plan (01/14/2020 9:54 AM TRUCK DOCK MATERIAL MOVER): Assessment: Marlee Chavez is a 19 year [...] anxiety Assessment & Plan (01/13/2020 2:34 PM TRUCK DOCK MATERIAL MOVER): Assessment: Marlee Chavez is a 19 year [...] anxiety Assessment & Plan (01/13/2020 12:01 PM TRUCK D[employer] MATERIAL MOVER): Moderate protein-calorie malnutrition Assessment: Marlee Chavez is [...] thereafter Assessment & Plan (01/12/2020 3:40 PM TRUCK DOCK MATERIAL MOVER): Moderate protein-calorie malnutrition Assessment: Marlee Chavez is [...] chart) Assessment & Plan (01/12/2020 1:25 PM TRUCK DOCK MATERIAL MOVER): Assessment: Marlee Chavez is a 19 year [...] anxiety Assessment & Plan (01/11/2020 11:43 AM TRUCK DOCK MATERIAL MOVER): Assessment: Marlee Chavez is a 19 year [...] cysts Assessment & Plan (01/10/2020 9:32 AM TRUCK DOCK MATERIAL MOVER): Assessment: Marlee Chavez is a 19 year [...] cysts Assessment & Plan (01/09/2020 11:08 AM TRUCK DOCK MATERIAL MOVER): Assessment: Marlee Chavez is a 19 year [...] cysts Assessment & Plan (01/08/2020 1:32 PM TRUCK DOCK MATERIAL MOVER): Assessment: Marlee Chavez is a 19 year [...] cysts Assessment & Plan (01/07/2020 2:52 PM TRUCK DOCK MATERIAL MOVER): Assessment: Marlee Chavez is a 19 year [...] cysts Assessment & Plan (01/06/2020 11:27 AM TRUCK DOCK MATERIAL MOVER): Assessment: Marlee Chavez is a 19 year [...] cysts Assessment & Plan (01/05/2020 3:49 PM TRUCK DOCK MATERIAL MOVER): Assessment: Marlee Chavez is a 19 year [...] cysts Assessment & Plan (01/04/2020 1:53 PM TRUCK DOCK MATERIAL MOVER): Assessment: Marlee Chavez is a 19 year [...] cysts Assessment & Plan (01/03/2020 12:34 AM TRUCK DOCK MATERIAL MOVER): Assessment: Marlee Chavez is a 19 year [...] & Plan (10/29/2021 8:09 PM CDT): Assessment: Malree Chavez is a 20 year old female [...] to General medicine (purple team)- Dr. Valdez -[facility] LR at 95ml/hr -Continue home medications: [...] 03/18/2023 Assessment & Plan (01/24/2022 5:04 PM TRUCK DOCK MATERIAL MOVER): Assessment: Marlee Chavez is a 20 year [...] gabapentin Assessment & Plan (01/23/2022 6:56 PM TRUCK DOCK MATERIAL MOVER): Assessment: Marlee Chavez is a 20 year [...] pain Assessment & Plan (01/08/2021 3:05 PM TRUCK DOCK MATERIAL MOVER): Assessment: Patient is an 20 year old [...] I&Os Assessment & Plan (01/07/2021 4:52 PM TRUCK DOCK MATERIAL MOVER): Assessment: Patient is an 20 year old [...] it Assessment & Plan (01/06/2021 6:00 PM TRUCK DOCK MATERIAL MOVER): Assessment: Patient is an 20 year old [...] I&Os Assessment & Plan (01/05/2021 1:27 PM TRUCK DOCK MATERIAL MOVER): Assessment: Patient is an 20 year old [...] I&Os Assessment & Plan (01/04/2021 9:17 PM TRUCK DOCK MATERIAL MOVER): Assessment: Patient is an 20 year old [...] I&Os Assessment & Plan (01/03/2021 8:43 PM TRUCK DOCK MATERIAL MOVER): Assessment: Patient is an 20 year old [...] wearing condom. She has upcoming appointment with mix technician next month at which time, she will be getting a IUD. Plan: -urine test today -GC, chlamydia, trichomonas testing Assessment & Plan (05/24/2020 2:43 PM CDT): Will get urine Hcg and STI testing. Mom is aware and Marlee is ok with us communicating results to her mother. Purging 03/24/2020 05/24/2020 Assessment & Plan (04/05/2020 3:23 PM TRUCK DOCK MATERIAL MOVER): Assessment: Has been drinking excessive amounts of water and putting her fingers in her mouth to induce vomiting. No recorded emesis since 03/25. Plan: Will limit access to water to 250ml at a time. May only bathe once per day after she has taken her meds, had breakfast and lunch. Assessment & Plan (04/04/2020 12:58 PM TRUCK DOCK MATERIAL MOVER): Assessment: Has been drinking excessive amounts of water and putting her fingers in her mouth to induce vomiting. No recorded emesis since 03/25. Plan: Will limit access to water to 250ml at a time. May only bathe once per day after she has taken her meds, had breakfast and lunch. Assessment & Plan (04/01/2020 11:55 AM TRUCK DOCK MATERIAL MOVER): Assessment: Has been drinking excessive amounts of water and putting her fingers in her mouth to induce vomiting. No recorded emesis since 03/25. Plan: Will limit access to water to 250ml at a time. May only bathe once per day after she has taken her meds, had breakfast and lunch. Assessment & Plan (03/24/2020 4:53 PM TRUCK DOCK MATERIAL MOVER): Assessment: Has been drinking excessive amounts of water and putting her fingers in her mouth to induce vomiting. Plan: Will limit access to water to 250ml at a time. May only bathe once per day after she has taken her meds, had breakfast and lunch. Ovarian cyst 01/12/2020 03/19/2020 Assessment & Plan (03/15/2020 11:10 AM TRUCK DOCK MATERIAL MOVER): Assessment: on ultrasound on R Plan: -Radiology recommended repeat imaging in 6 months for ovarian cysts Assessment & Plan (03/04/2020 1:41 PM TRUCK DOCK MATERIAL MOVER): Assessment: on ultrasound on R Plan: -Radiology recommended repeat imaging in 6 months for ovarian cysts Assessment & Plan (03/04/2020 11:50 AM TRUCK DOCK MATERIAL MOVER): Assessment: on ultrasound on R Plan: -Radiology recommended repeat imaging in 6 months for ovarian cysts Assessment & Plan (02/27/2020 9:58 AM TRUCK DOCK MATERIAL MOVER): Assessment: on ultrasound on R Plan: -Radiology recommended repeat imaging in 6 months for ovarian cysts Assessment & Plan (01/28/2020 11:59 AM TRUCK DOCK MATERIAL MOVER): Assessment: on ultrasound on R Plan: -Radiology recommended repeat imaging in 6 months for ovarian cysts Assessment & Plan (01/27/2020 3:52 PM TRUCK DOCK MATERIAL MOVER): Assessment: on ultrasound on R Plan: -Radiology recommended repeat imaging in 6 months for ovarian cysts Assessment & Plan (01/26/2020 6:01 PM TRUCK DOCK MATERIAL MOVER): Assessment: on ultrasound on R Plan: -Radiology recommended repeat imaging in 6 months for ovarian cysts Assessment & Plan (01/13/2020 2:33 PM TRUCK DOCK MATERIAL MOVER): Assessment: on ultrasound on R Plan: -Radiology recommended repeat imaging in 6 months for ovarian cysts Assessment & Plan (01/12/2020 1:26 PM TRUCK DOCK MATERIAL MOVER): Assessment: on ultrasound on R Plan: -Radiology recommended repeat imaging in 6 months for ovarian cysts Self-injurious behavior 03/25/201705/12 Major depressive disorder, severe 03/21/2017 05/24/2020 Intractable vomiting 020 Encounters * This document contains information received from the source organization and may not represent a complete record from that organization. Date Type Department Care Team Description 07/07/2024 Travel 06/11/2024 Travel 06/10/2024 Orders Only [address] [address] Ronel Thornton DO 06/09/2024 Telephone [facility] [address] Josef Leigh, [address] [phone] Mercedes Cruz, CAFETERIA COUNTER ATTENDANT-WELDER HELPER Follow-up 06/09/2024 Patient Outreach [facility] - Care Coordination [address] [place] [phone] Marlee Taylor, POST ACUTE CARE NURSE UC Follow-up 06/08/2024 1:20 PM CDT Office Visit [address] [address] Ronel Thornton DO Moderate bulimia nervosa (HCC) (Primary Dx); Superior mesenteric artery syndrome (HCC); Avoidant-restrictiv e food intake disorder (ARFID) 06/08/[address] [phone] Ronel Thornton DO Medication Issue 06/08/2024 Patient Outreach [facility] - Care Coordination [address] [place] [phone] Marlee Taylor, POST ACUTE CARE NURSE UC Follow-up 06/07/2024 2:27 AM CDT - 06/07/2024 7:04 AM CDT Emergency ER at [facility] [address] [place] [address] Momo Yung MD Abdominal pain, epigastric; Nausea vomiting and diarrhea Discharge Disposition: Home or Self Care 06/07/2024 Travel 05/22/2024 Travel 05/12/2024 Travel 05/07/2024 10:00 AM CDT Office Visit [address] [address] Ronel Thornton DO Anorexia (Primary Dx); Generalized anxiety disorder 04/29/2024 8:20 AM CDT Office Visit [address] [address] Ronel Thornton DO Anorexia (Primary Dx); Severe bulimia nervosa; Generalized anxiety disorder; Recurrent major depressive disorder, in full remission; PTSD (post-traumatic stress disorder); Borderline personality disorder from Last 3 Months Immunizations Immunization Administration Dates Next Due [employer] primary monoval ent 12+ yr 0.3mL [...] Recorded Patient Health Questionnaire-2 Score 0 07/07/2024 [facility] - [...] place to sleep or slept in a fdc (including now)? No 04/24/2023 Comments No Sex and Gender Information Value Date Recorded Sex Assigned at Not on file Legal Sex Female 6:25 PM TRUCK DOCK MATERIAL MOVER Gender Identity Not on file Sexual Orientation [...] st Contact Info) Description 01/20/2025 8:20 AM TRUCK DOCK MATERIAL MOVER Office Visit [facility] - Family Medicine [address] [place] [id number] Ronel Thornton DO [address] [place] [id number] Health Maintenance Due Date Last Done [...] PANEL Routine 04/29/2024 8:58 AM CDT Anorexia [place] ELECTROCARDIOGRAM, COMPLETE Routine 04/29/2024 Anorexia PAP CERVICAL [...] - 99 mg/dL 06/07/2024 6:03 PM CDT [facility] Specimen Type Cap Fingerstick 2024 6:03 PM CDT [facility] Blood BLOOD SPECIMEN / Unknown 06/07/2024 6:34 AM CDT 06/07/2024 6:03 PM CDT us Momo Yung MD LAB - POINT OF CARE ORDERABL ES Final Result [facility] [address] [place] [address] * CT Abdomen Pelvis W [...] - 99 mg/dL 06/07/2024 3:08 AM CDT [facility] Sodium 138 136 - 145 mmol/L 06/07/2024 3:08 AM CDT [facility] Potassium 3.9 3.5 - 5.1 mmol/L 06/07/2024 3:08 AM CDT [facility] Chloride 100 98 - 107 mmol/L 06/07/2024 3:08 AM CDT [facility] CO2 18(L) 22 - 29 mmol/L 06/07/2024 3:08 AM CDT [facility] Calcium 9.8 8.4 - 10.4 mg/dL 06/07/2024 3:08 AM CDT [facility] Anion Gap 20(H) 6 - 16 mmol/L 06/07/2024 3:08 AM CDT [facility] BUN 27(H) 5.3 - 18.7 mg/dL 06/07/2024 3:08 AM CDT [facility] Creatinine 1.07 0.57 - 1.11 mg/dL 06/07/2024 3:08 AM CDT [facility] Alkaline Phosphatase 66 40 - 150 U/L 06/07/2024 3:08 AM CDT [facility] ALT 18 6 - 57 U/L 06/07/2024 3:08 AM CDT [facility] AST 36 10 - 48 U/L 06/07/2024 3:08 AM CDT [facility] Protein Total 9.0(H) 6.4 - 8.3 gm/dL 06/07/2024 3:08 AM CDT [facility] Albumin 5.0 3.4 - 5.0 gm/dL 06/07/2024 3:08 AM CDT [facility] Bilirubin Total 0.7 0.2 - 1.2 mg/dL 06/07/2024 3:08 AM CDT [facility] eGFR by CKD-EPI 76(L) >=90 mL/min/1.7 3 m2 06/07/2024 3:08 AM CDT [facility] Blood BLOOD SPECIMEN / Unknown Venipuncture / Unknown 06/07/2024 2:50 AM CDT 06/07/2024 2:50 AM CDT us Momo Yung MD LAB - CHEMISTRY ORDERABLES F inal Result [facility] [address] [place] [address] * HCG BETA BLOOD QUANTITATIVE (06/07/2024 2:50 AM CDT) hCG Quantitative <2.42 mIU/mL 06/08/19 3:11 AM CDT [facility] Blood BLOOD SPECIMEN / Unknown Venipuncture / Unknown 06/07/2024 2:50 AM CDT 06/07/2024 2:50 AM CDT Narrative [facility] - 06/07/2024 3:11 AM CDT [...] ORDERABLES F inal Result Performing Organization Address [facility] Co de Phone Number [facility] [address] [place] [id number] * PHOSPHORUS BLOOD (06/07/2024 2:50 AM CDT) Phosphorus 4.5 2.5 - 4.5 mg/dL 06/07/2024 3:08 AM CDT [facility] Blood BLOOD SPECIMEN / Unknown Venipuncture / Unknown 06/07/2024 2:50 AM CDT 06/07/2024 2:50 AM CDT Momo Yung MD LAB - CHEMISTRY ORDERABLES F inal Result Performing Organization Address [facility] de Phone Number [facility] [address] [place] [id number] * MAGNESIUM BLOOD (06/07/2024 2:50 AM CDT) Only the most recent of2 resultswithin the time period is included. Magnesium 2.2 1.6 - 2.6 mg/dL 06/07/2024 3:08 AM CDT [facility] Blood BLOOD SPECIMEN / Unknown Venipuncture / Unknown 06/07/2024 2:50 AM CDT 06/07/2024 2:50 AM CDT Momo Yung MD LAB - CHEMISTRY ORDERABLES F inal Result Performing Organization Address [facility] de Phone Number [facility] [address] [place] [phone] * (ABNORMAL) LIPASE BLOOD (06/07/2024 2:50 AM CDT) Lipase 84(H) <60 U/L 06/07/2024 3:08 AM CDT [facility] Blood BLOOD SPECIMEN / Unknown Venipuncture / Unknown 06/07/2024 2:50 AM CDT 06/07/2024 2:50 AM CDT us Momo Yung MD LAB - CHEMISTRY ORDERABLES F inal Result [facility] [address] [place] [address] * CBC W AUTO DIFFERENTIAL (06/07/2024 2:49 AM CDT) Only the most recent of2 resultswithin the time period is included. WBC 9.6 4.0 - 10.7 x10E9/L 06/07/2024 2:51 AM CDT [facility] RBC Count 4.88 3.90 - 5.20 x10E12/L 06/07/2024 2:51 AM CDT [facility] Hemoglobin 14.8 11.9 - 15.8 g/dL 06/07/2024 2:51 AM CDT [facility] Hematocrit 44.1 34.8 - 46.1 % 06/07/2024 2:51 AM CDT [facility] MCV 90.4 80.0 - 98.0 fL 06/07/2024 2:51 AM CDT [facility] MCH 30.3 26.7 - 33.6 pg 06/07/2024 2:51 AM CDT [facility] MCHC 33.6 31.7 - 36.3 g/dL 06/07/2024 2:51 AM CDT [facility] RDW-CV 12.6 11.3 - 14.8 % 06/07/2024 2:51 AM CDT [facility] Platelet Count 353 150 - 420 x10E9/L 06/07/2024 2:51 AM CDT [facility] MPV 9.6 7.8 - 11.4 fL 06/07/2024 2:51 AM CDT [facility] Neutrophil % 70.8 41.0 - 74.0 % 06/07/2024 2:51 AM CDT [facility] Lymphocyte % 18.4 17.0 - 47.0 % 06/07/2024 2:51 AM CDT [facility] Monocyte % 10.3 3.0 - 11.0 % 06/07/2024 2:51 AM CDT [facility] Eosinophil % 0.0 0.0 - 7.0 % 06/07/2024 2:51 AM CDT [facility] Basophil % 0.2 0.0 - 1.6 % 06/07/2024 2:51 AM CDT [facility] Immature Granulocytes % 0.3 0.0 - 1.0 % 06/07/2024 2:51 AM CDT [facility] Neutrophil Absolute 6.79 1.60 - 7.50 x10E9/L 06/07/2024 2:51 AM CDT [facility] Lymphocyte Absolute 1.77 1.00 - 4.40 x10E9/L 06/07/2024 2:51 AM CDT [facility] Monocyte Absolute 0.99 0.15 - 1.00 x10E9/L 06/07/2024 2:51 AM CDT [facility] Eosinophil Absolute 0.00 0.00 - 0.60 x10E9/L 06/07/2024 2:51 AM CDT [facility] Basophil Absolute 0.02 0.00 - 0.13 x10E9/L 06/07/2024 2:51 AM CDT [facility] Blood BLOOD SPECIMEN / Unknown Venipuncture / Unknown 06/07/2024 2:49 AM CDT 06/07/2024 2:49 AM CDT us Momo Yung MD LAB - HEMATOLOGY ORDERABLES Final Result Performing Organization Address City/State/[facility] Co de Phone Number [facility] [address] [place], [place] [id number] * LIPID PROFILE (04/29/2024 8:58 AM CDT) [...] - 04/29/2024 6:09 PM CDT Performed at: Count includes the [facility] [address] [facility] , [place], [place] [id number] Venereal Disease Control Head: Elizabeth Rangel [facility], Phone: [phone] Ronel Thornton DO LAB - CHEMISTRY ORDERABLES Fi nal Result [facility] ACCOUNT BILL [address] [place] [address] * [place] ELECTROCARDIOGRAM, COMPLETE (04/29/2024) Ronel Thornton DO [place] - PROFESSION[employer] SERVICES Ed ited Result - Final * (ABNORMAL) PAP CERVICAL CANCER SCREEN CT/NG/TV APT (11/29/2023 11:06 AM CDT) Age Gdln ACOG Testing 21-29 [facility] ACCOUNT BILL Comment: Performed at: - [facility] [address] [id number] Venereal Disease Control Head: Meredith Gil MD, Phone: [phone] Performed at: - [facility] [address] [id number] Venereal Disease Control Head: Meredith Gil MD, Phone: [phone] Diagnosis Comment(A) [facility] ACCOUNT BILL Comment: EPITHELIAL [...] 12/05/2023 5:09 PM CDT Performed at: - [facility] [id number] Venereal Disease Control Head: Meredith Gil MD, Phone: [phone] Specimen Comment: [id number] Specimen Comment: Source.............Cervix Specimen Comment: No. of containers..01 ThinPrep Vial Nai Jurado MD LAB - PATHOLOGY/CYTOLOGY ORDE CHAMP Final Result Performing Organization Address [facility] Co de Phone Number [facility] ACCOUNT BILL [address] [place] [address] * HIV-1 HIV-2 ANTIBODY + HIV P24 [...] - 11/30/2023 10:10 AM CDT Performed at: [address] [id number] Venereal Disease Control Head: Karlos Huffman PhD, Phone: [phone] Nai Jurado MD LAB - CHEMISTRY ORDERABLES Fi nal Result [facility] ACCOUNT BILL [address] [place] [address] * HEPATITIS C AB W/RFLX TO HCV RNA QN PCR (12/07/2021) Hepatitis C Antibody NON-REACTI VE NON-REACT [facility] Signal to Cut-Off 0.08 <1.00 [facility] Comment: HCV antibody was non-reactive. There is no laboratory evidence of HCV infection. In most cases, no further action is required. However, if recent HCV exposure is suspected, a test for HCV RNA (test code 51850) is suggested. For additional information please refer to http://education.MocoSpace/faq/CPW74f2 (This link is being provided for informational/ educational purposes only.) Test Performed at: [facility] [address] [place] [address] PURVI PABLO DO,MPH Blood BLOOD SPECIMEN / Unknown 12/07/2021 12/07/2021 10:47 AM CDT Karrie Mack MD LAB - CHEMISTRY ORDERABLES Final Result Performing Organization Address [facility] Co de Phone Number [facility] [address] [place] [address] from Last 3 Months or Most Recently Relevant to Health [place] [address] [facility] * Guarantor: MARLEE CHAVEZ Account Type Relation to Patient Date of Phone Billing Address Personal/Family [address] [place] [address] Advance Directives * Full Code (Latest Code [...] 4:54 PM 06/22/2022 2:44 PM Care Teams Cloth Finishing Range Back Tender Relationship Specialty Start Date End Date Ronel [facility] [place] [address] PCP - General Family Medicine 03/18/23 Ronel Thornton DO [facility] [place] [address] PCP - Attributed-[facility] 04/12/23
--- OUTSIDE RECORDS SUMMARY | 2024-07-27 18:02 | XMS_ITS | Encounter Summary ---
Author Organization [facility] Address [address] [facility] [place] [address] Care Team Providers Care Plaster And Stucco Worker Name Role Phone Mellissa Jiménez MD Primary Care Provider [phone] Ronel Thornton DO Primary Care Provider Daphnie Gillespie MD Unavailable Juliana Peralta VIDEOTAPE OPERATOR Unavailable [phone] Juliana Peralta VIDEOTAPE OPERATOR Unavailable [phone] Ronel Thornton DO Unavailable [phone] Kenyatta Taylor RN Unavailable Tiago Lew Unavailable [phone] Reason for Visit * Reason Onset Date Comments Forms/questionnaires 01/23/2021 Encounter Details Date Type Department Care Team (Late st Contact Info) Description 01/23/2021 Telephone [facility] Pediatrics - Surgery [address] [place] [address] Daphnie Gillespie MD [address] [place] [address] Forms/questionnaires Social History Tobacco Use Types [...] on file Legal Sex Female 6:25 PM ACID CONDITIONER Gender Identity Not on file Sexual Orientation Not on file COVID-19 Exposure Response Date Recorded In the last month, have you been in contact with someone who was confirmed or suspected to have Coronavirus / COVID-19? No / Unsure 01/24/2021 11:47 AM ACID CONDITIONER documented as of this encounter Functional Status [...] wanted to know if it was received. CONDITIONER documented in this encounter Plan of Treatment Upcoming Encounters Date Type Department Care Team (Late st Contact Info) Description 01/20/2025 8:20 AM ACID CONDITIONER Office Visit [facility] - Family Medicine [address] [place] [address] [id number] Ronel Thornton DO [address] [place] [address] [phone] documented as of this encounter Visit Diagnoses Not on filedocumented in this encounter Additional Health Concerns Infection Onset Date Last Indicated Resolved Time COVID-19 Under Investigation 08/10/2021 08/10/2021 08/10/2021 2:59 AM CDT documented as of this encounter Care Teams Plaster And Stucco Worker Relationship Specialty Start Date End Date Mellissa Jiménez MD [address] [place] [address] [place] [address] PCP - General Family Medicine 04/25/20 03/17/23 Ronel Thornton DO [address] [place] [address] PCP - General Family Medicine 03/18/23 Daphnie Gillespie MD [address] [place] [address] PCP - Attributed-[facility] STL 02/11/23 04/11/23 Ronel Thornton DO [address] [place] [address] PCP - Attributed-[facility] STL 04/12/23 Juliana Peralta MSW Outpatient Black And White Printer Operator Care Management 04/24/2304/11 Juliana Peralta MSW Outpatient Black And White Printer Operator Care Management 04/30/2304/12 Kenyatta Taylor RN [address] [address] Medical Research AssistantDirector Physical Therapy 09/02/23 10/04/23 Tiago Lew Care Coordination Specialist Care Management 09/26/23 11/10/23 documented as of this encounter
--- OUTSIDE RECORDS SUMMARY | 2024-07-27 18:03 | XMS_ITS | Encounter Summary ---
Author Organization [facility] Address [address] [facility] [place] [address] Care Team Providers Care Accounts Receivable Assistant Name Role Phone Mellissa Jiménez MD Primary Care Provider [phone] Ronel Thornton DO Primary Care Provider [phone] Daphnie Gillespie MD Unavailable Juliana Peralta TRESTLE BUILDER Unavailable [phone] Juliana Peralta Unavailable [phone] Ronel Thornton DO Unavailable [phone] Kenyatta Taylor RN Unavailable Tiago Lew Unavailable [phone] Encounter Details Date Type Department Care Team (Late st Contact Info) Description 07/28/2020 Telephone [facility] Pediatrics - Pulmonology [address] [place] [address] Bessie Erwin Social History Tobacco Use Types Packs/Day Years Used Date Smoking Tobacco: Never Smokeless Tobacco: Never Alcohol Use Standard Drinks/Week Comments No 0 (1 standard drink = 0.6 oz pur e alcohol) Comments No Sex and Gender Information Value Date Recorded Sex Assigned at Not on file Legal Sex Female 6:25 PM TRUST MAIL CLERK Gender Identity Not on file Sexual [...] PM CDT Mom called regarding not eating [phone] Marla Gillespie documented in this encounter Plan of Treatment Upcoming Encounters Date Type Department Care Team (Late st Contact Info) Description 01/20/2025 8:20 AM TRUST MAIL CLERK Office Visit [facility] Family [address] [address] Ronel Thornton DO [address] [place] [address] documented as of this encounter Visit Diagnoses Not on filedocumented in this encounter Additional Health Concerns Infection Onset Date Last Indicated Resolved Time COVID-19 Under Investigation 08/10/2021 08/10/2021 08/10/2021 2:59 AM CDT documented as of this encounter Care Teams Accounts Receivable Assistant Relationship Specialty Start Date End Date Mellissa Jiménez MD [address] [place] [address] [place] [address] PCP - General Family Medicine 04/25/20 03/17/23 Ronel Thornton DO [address] [place], [place] [address] [address] PCP - General Family Medicine 03/18/23 Daphnie Gillespie MD [address] [place] [address] PCP - Attributed-[facility] E[facility] STL 02/11/23 04/11/23 Ronel Thornton DO [address] [place], [place] [address] [address] PCP - Attributed-[facility] STL 04/12/23 Juliana Peralta MSW Outpatient Store Facility Technician Care Management 04/24/2304/11 Juliana Peralta MSW Outpatient Store Facility Technician Care Management 04/30/2304/12 Kenyatta Taylor RN [address] [address] Lunchroom AttendantClearing Inspector 09/02/23 10/04/23 Tiago Lew Care Coordination Specialist Care Management 09/26/23 11/10/23 documented as of this encounter
--- OUTSIDE RECORDS SUMMARY | 2024-07-27 18:03 | XMS_ITS | Encounter Summary ---
Author Organization [facility] Address [address] [facility] [place] [address] Care Team Providers Care Customer Loyalty Representative Name Role Phone Mellissa Jiménez MD Primary Care Provider [phone] Ronel Thornton DO Primary Care Provider [phone] Daphnie Gillespie MD Unavailable Juliana Peralta FASHION BUYER Unavailable [phone] Juliana Peralta FASHION BUYER Unavailable [phone] Ronel Thornton DO Unavailable Kenyatta Taylor RN Unavailable Tiago Lew Unavailable [phone] Reason for Visit * Reason Onset Date Comments Appointment 10/05/2020 Contraceptive management 10/05/2020 Encounter Details Date Type Department Care Team (Late st Contact Info) Description 10/05/2020 Telephone [facility] [address] [place], [place] [phone] [place] [address] [place] [address] Appointment; Contraceptive management Social History Tobacco Use Types Packs/Day Years Used Date Smoking Tobacco: Never Smokeless Tobacco: Never Alcohol Use Standard Drinks/Week Comments No 0 (1 standard drink = 0.6 oz pur e alcohol) Comments No Sex and Gender Information Value Date Recorded Sex Assigned at Not on file Legal Sex Female 6:25 PM OPERATIONS CLERK Gender Identity Not on file Sexual [...] the office yet to get scheduled. CB# [phone] documented in this encounter Plan of Treatment Upcoming Encounters Date Type Department Care Team (Late st Contact Info) Description 01/20/2025 8:20 AM OPERATIONS CLERK Office Visit [facility] Family Medicine [address] [place] [address] Ronel Thornton DO [address] [place] [address] documented as of this encounter Visit Diagnoses Not on filedocumented in this encounter Additional Health Concerns Infection Onset Date Last Indicated Resolved Time COVID-19 Under Investigation 08/10/2021 08/10/2021 08/10/2021 2:59 AM CDT documented as of this encounter Care Teams Customer Loyalty Representative Relationship Specialty Start Date End Date Mellissa Jiménez MD [address] [place] [address] [place] [address] PCP - General Family Medicine 04/25/20 03/17/23 Ronel Thornton DO [address] [place] [address] PCP - General Family Medicine 03/18/23 [place] [address] [place] [address] PCP - Attributed-[facility] EHP STL 02/11/23 04/11/23 Ronel Thornton DO [address] [place] [address] PCP - Attributed-[facility] EHP STL 04/12/23 Juliana Peralta MSW Outpatient Roll Repairer Care Management 04/24/2304/11 Juliana Peralta MSW Outpatient Roll Repairer Care Management 04/30/2304/12 Kenyatta Taylor RN [address] [address] Justice ProfessorMetal Coater Operator 09/02/23 10/04/23 Tiago Lew Care Coordination Specialist Care Management 09/26/23 11/10/23 documented as of this encounter
--- OUTSIDE RECORDS SUMMARY | 2024-07-27 18:03 | XMS_ITS | Clinical Summary ---
Author Organization [facility] Address [address] [place] [address] Phone Care Team Providers Care Home Health Lvn Name Role Phone Mellissa Jiménez MD Primary [...] on file Legal Sex Female 10:44 PM HEAT TREAT WORKER Gender Identity Not on file Sexual [...] 52.2 kg (115 lb) 04/20/2023 2:30 AM HEAT TREAT WORKER Height 152.4 cm (5') 04/20/2023 2:30 AM HEAT TREAT WORKER Body Mass Index 22.46 04/20/2023 2:30 AM HEAT TREAT WORKER Plan of Treatment Health Maintenance Due [...] Additional history exists [place] [address] [facility] [id number] OUT OF NETWORK Advance Directives For more information, please contact: [phone] * Full Code (Latest Code Status on File) Date Activated Date Inactivated Comments 04/20/2023 2:32 AM 04/21/2023 4:11 PM Care Teams Home Health Lvn Relationship Specialty Start Date End Date Mellissa Jiménez MD [address] [place] [address] PCP - General Family Practice 04/20/23
--- OUTSIDE RECORDS SUMMARY | 2024-07-27 18:03 | XMS_ITS | Encounter Summary ---
Author Organization [facility] Address [address] [place] [address] Care Team Providers Care Practical Nursing Instructor Name Role Phone Mellissa Jiménez MD Primary Care Provider [phone] Ronel Thornton DO Primary Care Provider [phone] Daphnie Gillespie MD Unavailable Juliana Peralta NIPPLE MAKER Unavailable [phone] Juliana Peralta NIPPLE MAKER Unavailable [phone] Ronel Thornton DO Unavailable [phone] Kenyatta Taylor RN Unavailable [phone] Tiago Lew Unavailable [phone] Reason for Visit * Reason Onset Date Comments Eating disorder 08/04/2020 Encounter Details Date Type Department Care Team (Late st Contact Info) Description 08/04/[address] [facility] Diabetes Specialist [address] [place] [address] Flor Martinez, NARCOTICS AGENT Eating disorder Social History Tobacco Use Types Packs/Day Years Used Date Smoking Tobacco: Never Smokeless Tobacco: Never Alcohol Use Standard Drinks/Week Comments No 0 (1 standard drink = 0.6 oz pur e alcohol) Comments No Sex and Gender Information Value Date Recorded Sex Assigned at Not on file Legal Sex Female 6:25 PM PARK AIDE Gender Identity Not on file Sexual Orientation [...] of Assessment Author No 04/08/2020 1:15 PM Rosteta Drew RN documented as of this encounter Mental Status * Does person have difficulty concentrating/remembering/making decisions? Answer Entry Date Author No 04/08/2020 1:15 PM Rosetta Drew RN documented in this encounter Miscellaneous Notes * Telephone Encounter - Flor Martinez LCSW - 08/04/2020 10:40 AM CDT Several phone calls with Kenyatta's mother Esperanza and [facility] this week regarding Kenyatta's relapse, and mother's belief that she needs to be admitted to [facility]. Spoke with mother again this a.m, and they have a phone intake assessment with [facility] next SaturdayAugust 08. documented in this encounter Plan of Treatment Upcoming Encounters Date Type Department Care Team (Late st Contact Info) Description 01/20/2025 8:20 AM PARK AIDE Office Visit [facility] - Family Medicine [address] [place] [address] Ronel Thornton DO [address] [place] [address] documented as of this encounter Visit Diagnoses Not on filedocumented in this encounter Additional Health Concerns Infection Onset Date Last Indicated Resolved Time COVID-19 Under Investigation 08/10/2021 08/10/2021 08/10/2021 2:59 AM CDT documented as of this encounter Care Teams Practical Nursing Instructor Relationship Specialty Start Date End Date Mellissa Jiménez MD [address] [place] [address] [place] [address] PCP - General Family Medicine 04/25/20 03/17/23 Ronel Thornton DO [address] [place] [address] PCP - General Family Medicine 03/18/23 Daphnie Gillespie MD [address] [place] [address] PCP - Attributed-[facility] EHP STL 02/11/23 04/11/23 Ronel Thornton DO [address] [place] [address] PCP - Attributed-[facility] EHP STL 04/12/23 Juliana Peralta MSW Outpatient Assistant Accounting Manager Care Management 04/24/2304/11 Juliana Peralta MSW Outpatient Assistant Accounting Manager Care Management 04/30/2304/12 Kenyatta Taylor RN [address] [address] Flight FollowerTester Rocket Engine 09/02/23 10/04/23 Tiago Lew Care Coordination Specialist Care Management 09/26/23 11/10/23 documented as of this encounter
[2024-07-27] MEDS: diazePAM INJ (*CRX) 10 MG/2 ML SYRINGE 5 MG IV PUSH (18:09)
[2024-07-27] MEDS: KETOROLAC 15 MG/ML VIAL (*BKC) IV PUSH (18:09)
[2024-07-27 18:12] LABS: Alanine Aminotransferase 19 U/L (6-35); Albumin Level 4.6 g/dL (3.5-5.1); Alkaline Phosphatase 66 U/L (38-126); Anion Gap 14 mmol/L (4-12); Aspartate Amino Transferase 32 U/L (14-36); Bilirubin,Total 0.3 mg/dL (0.2-1.3); Blood Urea Nitrogen 11 mg/dL (7-17); Calcium 9.1 mg/dL (8.4-10.2); Carbon Dioxide 18 mmol/L (22-30); Chloride 108 mmol/L (98-107); Estimated Glomerular Filt Rate > 60; Glucose 92 mg/dL (65-110); Lipase 117 U/L (23-300); Magnesium 1.7 mg/dL (1.6-2.3); Potassium 3.6 mmol/L (3.4-5.0); Sodium 140 mmol/L (137-145); Total Protein 7.5 g/dL (6.3-8.2)
[2024-07-27] MEDS: LACTATED RINGERS 1,000 ML 999 ML IV CONT (18:23)
--- NOTE | 2024-07-27 21:36 | PC.NURSE ---
No IV Ativan in pyxis. Pharmacy was notified.
[2024-07-27] MEDS: LORazepam INJ (*CRX) 2 MG/ML VIAL 0.5 MG IV PUSH (21:48)
== END 2024-07-27 22:01 | disposition home or self-care (01) ==
PROVIDERS: Physician Assistant; Emergency Provider Physician Assistant
DX: R11.15 Cyclical vomiting syndrome unrelated to migraine (principal); E86.0 Dehydration; F32.A Depression, unspecified; F41.9 Anxiety disorder, unspecified; Z79.899 Other long term (current) drug therapy
CPT/HCPCS: 36415; 74177; 80053; 81001; 81025; 83690; 83735; 85025; 93005; 96361; 96374; 96375; 99284; J1885; J2060; J2405; J3360; J7030; J7120; Q9967

== ENCOUNTER 2024-08-25 06:56 | Emergency (ER) | payer OTHER, SELFPAY ==
[2024-08-25 06:59] VITALS: BP 147/107; PULSE 117; RESP 23; O2SAT 99
[2024-08-25] MEDS: PROCHLORPERAZINE EDISYLATE 10 MG/2 ML VIAL IV PUSH (07:17)
--- OUTSIDE RECORDS SUMMARY | 2024-08-25 07:26 | XMS_ITS | Encounter Summary ---
Author Organization [facility] Address [address] [place] [address] Care Team Providers Care Nut Chopper Name Role Phone Mellissa Jiménez MD Primary Care Provider [phone] Ronel Thonrton DO Primary Care Provider [phone] Daphnie Gillespie MD Unavailable Juliana Peralta CELL PHONE REPAIR TECHNICIAN Unavailable [phone] Juliana Peralta CELL PHONE REPAIR TECHNICIAN Unavailable [phone] Ronel Thornton DO Unavailable Kenyatta Taylor RN Unavailable [phone] Tiago Lew Unavailable [phone] Reason for Visit * Reason Onset Date Comments Forms/questionnaires 01/23/2021 Encounter Details Date Type Department Care Team (Late st Contact Info) Description 01/23/2021 Telephone [facility] Pediatrics - Surgery [address] [place] [address] Daphnie Gillespie MD [address] [place] [phone] Forms/questionnaires Social History Tobacco Use Types [...] on file Legal Sex Female 6:25 PM APPRENTICESHIP REPRESENTATIVE Gender Identity Not on file Sexual Orientation Not on file COVID-19 Exposure Response Date Recorded In the last month, have you been in contact with someone who was confirmed or suspected to have Coronavirus / COVID-19? No / Unsure 01/24/2021 11:47 AM APPRENTICESHIP REPRESENTATIVE documented as of this encounter Functional [...] wanted to know if it was received. ENTICESHIP REPRESENTATIVE documented in this encounter Plan of Treatment Upcoming Encounters Date Type Department Care Team (Late st Contact Info) Description 01/20/2025 8:20 AM APPRENTICESHIP REPRESENTATIVE Office Visit [facility] - Family Medicine [address] [place] [address] [phone] Ronel Thornton DO [address] [place] [phone] documented as of this encounter Visit Diagnoses Not on filedocumented in this encounter Additional Health Concerns Infection Onset Date Last Indicated Resolved Time COVID-19 Under Investigation 08/10/2021 08/10/2021 08/10/2021 2:59 AM CDT documented as of this encounter Care Teams Nut Chopper Relationship Specialty Start Date End Date Mellissa Jiménez MD [address] [place] [address] [place] [address] PCP - General Family Medicine 04/25/20 03/17/23 Ronel Thornton DO [address] [place] [address] PCP - General Family Medicine 03/18/23 Daphnie Gillespie MD [address] [place] [address] PCP - Attributed-[facility] E[facility] STL 02/11/23 04/11/23 Ronel Thornton DO [address] [place] [address] PCP - Attributed-[facility] E[facility] STL 04/12/23 Juliana Peralta MSW Outpatient Machine Learning Intern Care Management 04/24/2304/11 Juliana Peralta MSW Outpatient Machine Learning Intern Care Management 04/30/2304/12 Kenyatta Taylor RN [address] [address] Pattern HandDirector Wholesale 09/02/23 10/04/23 Tiago Lew Care Coordination Specialist Care Management 09/26/23 11/10/23 documented as of this encounter
--- OUTSIDE RECORDS SUMMARY | 2024-08-25 07:26 | XMS_ITS | Encounter Summary ---
Author Organization [facility] Address [address] [facility] [place] [address] Care Team Providers Care Peanut Grader Name Role Phone Mellissa Jiménez MD Primary Care Provider [phone] Ronel Thornton DO Primary Care Provider [phone] Daphnie Gillespie MD Unavailable Juliana Peralta FACILITATOR Unavailable [phone] Juliana Peralta FACILITATOR Unavailable [phone] Ronel Thornton DO Unavailable [phone] Kenyatta Taylor RN Unavailable [phone] Tiago Lew Unavailable [phone] Reason for Visit * Reason Onset Date Comments Eating disorder 08/04/2020 Encounter Details Date Type Department Care Team (Late st Contact Info) Description 08/04/2020 Telephone [facility] Power Equipment Mechanics Instructor [address] [place] [address] Flor Martinez, VISITOR SERVICES REPRESENTATIVE Eating disorder Social History Tobacco Use Types Packs/Day Years Used Date Smoking Tobacco: Never Smokeless Tobacco: Never Alcohol Use Standard Drinks/Week Comments No 0 (1 standard drink = 0.6 oz pur e alcohol) Comments No Sex and Gender Information Value Date Recorded Sex Assigned at Not on file Legal Sex Female 6:25 PM HOB MACHINE OPERATOR Gender Identity Not on file [...] calls with Kenyatta's mother Esperanza and [facility] this week regarding Kenyatta's relapse, and mother's belief that she needs to be admitted to [facility]. Spoke with mother again this a.m, and they have a phone intake assessment with [facility] next SaturdayAugust 08. documented in this encounter Plan of Treatment Upcoming Encounters Date Type Department Care Team (Late st Contact Info) Description 01/20/2025 8:20 AM HOB MACHINE OPERATOR Office Visit [facility] - Family Medicine [address] [place] [address] Ronel Thornton DO [address] [place] [address] documented as of this encounter Visit Diagnoses Not on filedocumented in this encounter Additional Health Concerns Infection Onset Date Last Indicated Resolved Time COVID-19 Under Investigation 08/10/2021 08/10/2021 08/10/2021 2:59 AM CDT documented as of this encounter Care Teams Peanut Grader Relationship Specialty Start Date End Date Mellissa Jiménez MD [address] [place] [address] [place] [address] PCP - General Family Medicine 04/25/20 03/17/23 Ronel Thornton DO [address] [place] [address] PCP - General Family Medicine 03/18/23 Daphnie Gillespie MD [address] [place] [address] PCP - Attributed-[facility] EHP STL 02/11/23 04/11/23 Ronel Thornton DO [address] [place] [address] PCP - Attributed-[facility] STL 04/12/23 Juliana Peralta MSW Outpatient Hyperbaric Technologist Care Management 04/24/2304/11 Juliana Peralta MSW Outpatient Hyperbaric Technologist Care Management 04/30/2304/12 Kenyatta Taylor RN [address] [address] Cd TechnicianMilling/Polishing Operator 09/02/23 10/04/23 Tiago Lew Care Coordination Specialist Care Management 09/26/23 11/10/23 documented as of this encounter
--- OUTSIDE RECORDS SUMMARY | 2024-08-25 07:26 | XMS_ITS | Clinical Summary ---
Author Organization [facility] Address [address] [place] [address] Phone Care Team Providers Care Apprentice Architect Name Role Phone Mellissa Jiménez MD [...] on file Legal Sex Female 10:44 PM FEATHER WASHER Gender Identity Not on file Sexual Orientation [...] 52.2 kg (115 lb) 04/20/2023 2:30 AM FEATHER WASHER Height 152.4 cm (5') 04/20/2023 2:30 AM FEATHER WASHER Body Mass Index 22.46 04/20/2023 2:30 AM FEATHER WASHER Plan of Treatment Health Maintenance Due Date Last Done Comments CHLAMYDIA SCREENING (ANNUAL) 11-24 YEARS 2013 HPV VACCINES (1 - 3-dose series) 2017 CERVICAL CANCER SCREENING 08/17/2023 HPV/Cotest (21-29) 08/17/2023 PAP SMEAR 08/17/2023 COVID-19 Vaccine (3 - 2024-2 5 season) 2023 07/26/2020, 07/03/2020 DTAP/TDAP/TD VACCINES (7 - T d or Tdap) 12/16/2023 12/15/2013, 07/08/2007, 02/22/2004, Additional history exists INFLUENZA VACCINE (#1) 2024 01/25/2022, 2020 HEPATITIS B VACCINES Completed 02/22/2004, 06/09/2003, 02/22/2003, Additional history exists Insurance [place] [address] [facility] [id number] OUT OF NETWORK Advance Directives For more information, please contact: [phone] * Full Code (Latest Code Status on File) Date Activated Date Inactivated Comments 04/20/2023 2:32 AM 04/21/2023 4:11 PM Care Teams Apprentice Architect Relationship Specialty Start Date End Date Mellissa Jiménez MD [address] [place] [phone] PCP - General Family Practice 04/20/23
--- OUTSIDE RECORDS SUMMARY | 2024-08-25 07:26 | XMS_ITS | Encounter Summary ---
Author Organization [facility] Address [address] [place] [place] [address] Care Team Providers Care Welt Pocket Machine Operator Name Role Phone Mellissa Jiménez MD Primary Care Provider [phone] Ronel Thornton DO Primary Care Provider [phone] Daphnie Gillespie MD Unavailable Juliana Peralta RESTAURANT HOST/HOSTESS Unavailable [phone] Juliana Peralta Unavailable [phone] Ronel Thornton DO Unavailable [phone] Kenyatta Taylor RN Unavailable Tiago Lew Unavailable [phone] Encounter Details Date Type Department Care Team (Late st Contact Info) Description 07/28/2020 Telephone [facility] Pediatric[facility] - Pulmonology [address] [place] [id number] Bessie Erwin Social History Tobacco Use Types Packs/Day Years Used Date Smoking Tobacco: Never Smokeless Tobacco: Never Alcohol Use Standard Drinks/Week Comments No 0 (1 standard drink = 0.6 oz pur e alcohol) Comments No Sex and Gender Information Value Date Recorded Sex Assigned at Not on file Legal Sex Female 6:25 PM INSTRUMENTATION FITTER Gender Identity Not on file Sexual Orientation [...] PM CDT Mom called regarding not eating [phone] Marla Gillespie documented in this encounter Plan of Treatment Upcoming Encounters Date Type Department Care Team (Late st Contact Info) Description 01/20/2025 8:20 AM INSTRUMENTATION FITTER Office Visit [facility] Family [address] [address] Ronel Thornton DO [address] [place] [id number] documented as of this encounter Visit Diagnoses Not on filedocumented in this encounter Additional Health Concerns Infection Onset Date Last Indicated Resolved Time COVID-19 Under Investigation 08/10/2021 08/10/2021 08/10/2021 2:59 AM CDT documented as of this encounter Care Teams Welt Pocket Machine Operator Relationship Specialty Start Date End Date Mellissa Jiménez MD [address] [place] [address] [place] [address] PCP - General Family Medicine 04/25/20 03/17/23 Ronel Thornton DO [address] [place], [place] [address] [address] PCP - General Family Medicine 03/18/23 Daphnie Gillespie MD [address] [place] [phone] PCP - Attributed-[facility] 02/11/23 04/11/23 Ronel Thornton DO [address] [place], [place] [address], [place] [address] PCP - Attributed-[facility] 04/12/23 Juliana Peralta MSW Outpatient Artillery Officer Care Management 04/24/2304/11 Juliana Peralta MSW Outpatient Artillery Officer Care Management 04/30/2304/12 Kenyatta Taylor RN [address] [address] Sales Assistant DisplaysLearning And Development Director 09/02/23 10/04/23 Tiago Lew Care Coordination Specialist Care Management 09/26/23 11/10/23 documented as of this encounter
--- OUTSIDE RECORDS SUMMARY | 2024-08-25 07:26 | XMS_ITS | Clinical Summary ---
Author Organization [facility] [employer] Address [address] [place] [address] Care Team Providers Care Cable Splicing Technician Name Role Phone Ronel Thornton DO Primary Care Provider [phone] Ronel Thornton DO Unavailable [phone] Source Comments [facility] [employer],non-owned Affiliates and Associated Physician Practices is amultiple site organization consisting of ambulatory clinics and hospital sitesin [place], [place], [place] and [place]. This disclosure is being madepursuant to the Care Everywhere program and may not contain all information available regarding this patient. Last updated 17.[facility] [employer] Allergies No known active allergies Medications * [...] 024 2023 Disconti nued(No Pharm No AVS) Active Problems [...] 01/18/2020 Assessment & Plan (01/08/2021 3:06 PM SHEET METAL LAY OUT WORKER): Assessment: Major depressive disorder, generalized anxiety disorder and substance abuse disorder. Plan: - klonopin and neurontin are all habit forming, concerns they are addictive, plan to discuss [employer] goal of weaning as outpatient - must stop all alcohol and MJ - Increased Prozac to 40 - Increased zyprexa to 15 - Melatonin 6mg QHS for sleep - avoid narcotics - taper off zyprexa as outpatient per psychiatry recs Assessment & Plan (01/07/2021 4:50 PM SHEET METAL LAY OUT WORKER): Assessment: Major depressive disorder, generalized anxiety disorder and substance abuse disorder. Plan: - klonopin and neurontin are all habit forming, concerns they are addictive, plan to discuss [employer] goal of weaning as outpatient - must stop all alcohol and MJ - Increased Prozac to 40 - Increased zyprexa to 15 - Melatonin 6mg QHS for sleep - avoid narcotics - taper off zyprexa as outpatient per psychiatry recs Assessment & Plan (01/06/2021 5:55 PM SHEET METAL LAY OUT WORKER): Assessment: Major depressive disorder, generalized anxiety disorder and substance abuse disorder. Plan: - klonopin and neurontin are all habit forming, concerns they are addictive, plan to discuss [employer] goal of weaning as outpatient - must [...] slowly. Assessment & Plan (04/07/2020 6:45 PM SHEET METAL LAY OUT WORKER): Assessment: Hx of major depressive disorder and generalized anxiety disorder. Pt has been seen by psychiatry and psychology, now improved since starting/optimizing zyprexa QHS, clonazepam TID, and prozac QD. Plan: - Prozac 30 mg QD (dose of 30 mg started on 03/09/20, Prozac initially began 02/07) - Zyprexa 5 mg QHS - Klonopin 0.5mg TID Assessment & Plan (04/06/2020 3:54 PM SHEET METAL LAY OUT WORKER): Assessment: Hx of major depressive disorder [...] TID Assessment & Plan (04/05/2020 10:49 AM SHEET METAL LAY OUT WORKER): Assessment: Hx of major depressive disorder [...] TID Assessment & Plan (04/04/2020 10:23 AM SHEET METAL LAY OUT WORKER): Assessment: Hx of major depressive disorder [...] TID Assessment & Plan (04/03/2020 6:30 PM SHEET METAL LAY OUT WORKER): Assessment: Hx of major depressive disorder [...] TID Assessment & Plan (04/01/2020 11:15 AM SHEET METAL LAY OUT WORKER): Assessment: Hx of major depressive disorder [...] dose) Assessment & Plan (03/31/2020 10:07 AM SHEET METAL LAY OUT WORKER): Assessment: Hx of major depressive disorder [...] dose) Assessment & Plan (03/30/2020 2:24 PM SHEET METAL LAY OUT WORKER): Assessment: Hx of major depressive disorder [...] dose) Assessment & Plan (03/29/2020 6:50 AM SHEET METAL LAY OUT WORKER): Assessment: Hx of major depressive disorder [...] dose) Assessment & Plan (03/27/2020 10:30 AM SHEET METAL LAY OUT WORKER): Assessment: Hx of major depressive disorder and generalized anxiety disorder. Pt seen by psychiatry on admission and was started elavil, but continued to have anxiety. Elavil was discontinued due to persistent tachycardia and hypotension. [facility] she was started on zyprexa [...] dose) Assessment & Plan (03/26/2020 11:15 AM SHEET METAL LAY OUT WORKER): Assessment: Hx of major depressive disorder [...] dose) Assessment & Plan (03/25/2020 8:58 AM SHEET METAL LAY OUT WORKER): Assessment: Hx of major depressive disorder [...] dose) Assessment & Plan (03/24/2020 6:44 AM SHEET METAL LAY OUT WORKER): Assessment: Hx of major depressive disorder [...] dose) Assessment & Plan (03/23/2020 12:19 PM SHEET METAL LAY OUT WORKER): Assessment: Hx of major depressive disorder [...] dose) Assessment & Plan (03/22/2020 10:47 AM SHEET METAL LAY OUT WORKER): Assessment: Hx of major depressive disorder [...] recommendations) Assessment & Plan (03/21/2020 3:11 PM SHEET METAL LAY OUT WORKER): Assessment: Hx of major depressive disorder [...] mg. Assessment & Plan (03/20/2020 10:31 AM SHEET METAL LAY OUT WORKER): Assessment: Hx of major depressive disorder and generalized anxiety disorder. Pt seen by psychiatry on admission and was started elavil, but continued to have anxiety. Elavil was discontinued due to persistent tachycardia and hypotension. [facility] she was [facility] on [...] 03/21. Assessment & Plan (03/19/2020 10:38 AM SHEET METAL LAY OUT WORKER): Assessment: Hx of major depressive disorder [...] withdrawal Assessment & Plan (03/18/2020 12:58 PM SHEET METAL LAY OUT WORKER): Assessment: Hx of major depressive disorder [...] anxiety Assessment & Plan (03/17/2020 10:33 AM SHEET METAL LAY OUT WORKER): Assessment: Hx of major depressive disorder [...] appreciated Assessment & Plan (03/16/2020 2:24 PM SHEET METAL LAY OUT WORKER): Assessment: Hx of major depressive disorder [...] recommendations Assessment & Plan (03/15/2020 11:11 AM SHEET METAL LAY OUT WORKER): Assessment: Hx of major depressive disorder [...] anxiety Assessment & Plan (03/14/2020 6:28 AM SHEET METAL LAY OUT WORKER): Assessment: Hx of major depressive disorder [...] anxiety Assessment & Plan (03/13/2020 6:28 AM SHEET METAL LAY OUT WORKER): Assessment: Hx of major depressive disorder [...] anxiety Assessment & Plan (03/12/2020 11:35 AM SHEET METAL LAY OUT WORKER): Assessment: Hx of major depressive disorder [...] anxiety Assessment & Plan (03/11/2020 12:43 PM SHEET METAL LAY OUT WORKER): Assessment: Hx of major depressive disorder [...] anxiety Assessment & Plan (03/10/2020 6:11 AM SHEET METAL LAY OUT WORKER): Assessment: Hx of major depressive disorder [...] anxiety Assessment & Plan (03/09/2020 6:24 AM SHEET METAL LAY OUT WORKER): Assessment: Hx of major depressive disorder [...] anxiety Assessment & Plan (03/08/2020 10:51 AM SHEET METAL LAY OUT WORKER): Assessment: Hx of major depressive disorder [...] anxiety Assessment & Plan (03/07/2020 9:15 AM SHEET METAL LAY OUT WORKER): Assessment: Hx of major depressive disorder [...] daily schedule with assistance of child support case officer-Alma Assessment & Plan (03/06/2020 10:09 AM SHEET METAL LAY OUT WORKER): Assessment: Hx of major depressive disorder [...] anxiety Assessment & Plan (03/05/2020 9:56 AM SHEET METAL LAY OUT WORKER): Assessment: Hx of major depressive disorder [...] anxiety Assessment & Plan (03/04/2020 12:58 PM SHEET METAL LAY OUT WORKER): Assessment: Hx of major depressive disorder [...] anxiety Assessment & Plan (03/03/2020 3:16 PM SHEET METAL LAY OUT WORKER): Assessment: Hx of major depressive disorder [...] anxiety Assessment & Plan (03/01/2020 12:04 PM SHEET METAL LAY OUT WORKER): Assessment: Hx of major depressive disorder [...] anxiety Assessment & Plan (02/29/2020 12:53 PM SHEET METAL LAY OUT WORKER): Assessment: Hx of major depressive disorder [...] anxiety Assessment & Plan (02/28/2020 9:22 AM SHEET METAL LAY OUT WORKER): Assessment: Hx of major depressive disorder [...] anxiety Assessment & Plan (02/27/2020 10:27 AM SHEET METAL LAY OUT WORKER): Assessment: Hx of major depressive disorder [...] negative Assessment & Plan (02/26/2020 11:12 AM SHEET METAL LAY OUT WORKER): Assessment: Hx of major depressive disorder [...] pending Assessment & Plan (02/25/2020 9:33 AM SHEET METAL LAY OUT WORKER): Assessment: Hx of major depressive disorder [...] pending Assessment & Plan (02/24/2020 6:51 AM SHEET METAL LAY OUT WORKER): Assessment: Hx of major depressive disorder [...] pending Assessment & Plan (02/23/2020 10:19 AM SHEET METAL LAY OUT WORKER): Assessment: Hx of major depressive disorder [...] pending Assessment & Plan (02/22/2020 11:07 AM SHEET METAL LAY OUT WORKER): Assessment: Hx of major depressive disorder [...] QHS Assessment & Plan (02/21/2020 10:54 AM SHEET METAL LAY OUT WORKER): Assessment: History of major depressive disorder [...] tablet Assessment & Plan (02/20/2020 11:33 AM SHEET METAL LAY OUT WORKER): Assessment: History of major depressive disorder [...] tablet Assessment & Plan (02/19/2020 3:05 PM SHEET METAL LAY OUT WORKER): Assessment: History of major depressive disorder [...] tablet Assessment & Plan (02/18/2020 10:13 AM SHEET METAL LAY OUT WORKER): Assessment: History of major depressive disorder [...] tablet Assessment & Plan (02/17/2020 12:26 PM SHEET METAL LAY OUT WORKER): Assessment: History of major depressive disorder [...] tablet Assessment & Plan (02/16/2020 1:14 PM SHEET METAL LAY OUT WORKER): Assessment: History of major depressive disorder [...] tablet Assessment & Plan (02/15/2020 12:31 PM SHEET METAL LAY OUT WORKER): Assessment: History of major depressive disorder [...] tablet Assessment & Plan (02/14/2020 2:24 PM SHEET METAL LAY OUT WORKER): Assessment: History of major depressive disorder [...] tablet Assessment & Plan (02/13/2020 12:00 PM SHEET METAL LAY OUT WORKER): Assessment: History of major depressive disorder [...] tablet Assessment & Plan (02/12/2020 11:20 AM SHEET METAL LAY OUT WORKER): Assessment: History of major depressive disorder [...] tablet Assessment & Plan (02/11/2020 11:54 AM SHEET METAL LAY OUT WORKER): Assessment: History of major depressive disorder [...] tablet Assessment & Plan (02/10/2020 12:09 PM SHEET METAL LAY OUT WORKER): Assessment: History of major depressive disorder [...] tablet Assessment & Plan (02/09/2020 11:50 AM SHEET METAL LAY OUT WORKER): Assessment: History of major depressive disorder [...] [place] Assessment & Plan (02/08/2020 12:54 PM SHEET METAL LAY OUT WORKER): Assessment: History of major depressive disorder [...] [place] Assessment & Plan (02/07/2020 11:47 AM SHEET METAL LAY OUT WORKER): Assessment: History of major depressive disorder [...] [place] Assessment & Plan (02/06/2020 8:12 AM SHEET METAL LAY OUT WORKER): Assessment: History of major depressive disorder [...] [place] Assessment & Plan (02/05/2020 9:12 AM SHEET METAL LAY OUT WORKER): Assessment: History of major depressive disorder [...] [place] Assessment & Plan (02/04/2020 12:43 PM SHEET METAL LAY OUT WORKER): Assessment: History of major depressive disorder [...] [place] Assessment & Plan (02/03/2020 2:28 PM SHEET METAL LAY OUT WORKER): Assessment: History of major depressive disorder [...] [place] Assessment & Plan (02/02/2020 4:02 PM SHEET METAL LAY OUT WORKER): Assessment: History of major depressive disorder [...] [place] Assessment & Plan (02/01/2020 12:12 PM SHEET METAL LAY OUT WORKER): Assessment: History of major depressive disorder [...] [place] Assessment & Plan (01/31/2020 1:04 PM SHEET METAL LAY OUT WORKER): Assessment: History of major depressive disorder [...] [place] Assessment & Plan (01/30/2020 10:30 AM SHEET METAL LAY OUT WORKER): Assessment: History of major depressive disorder [...] [place] Assessment & Plan (01/29/2020 9:40 PM SHEET METAL LAY OUT WORKER): Assessment: History of major depressive disorder [...] [place] Assessment & Plan (01/28/2020 11:59 AM SHEET METAL LAY OUT WORKER): Assessment: History of major depressive disorder [...] lunch Assessment & Plan (01/27/2020 3:57 PM SHEET METAL LAY OUT WORKER): Assessment: History of major depressive disorder [...] lunch Assessment & Plan (01/26/2020 6:01 PM SHEET METAL LAY OUT WORKER): Assessment: History of major depressive disorder [...] [place] Assessment & Plan (01/25/2020 2:56 PM SHEET METAL LAY OUT WORKER): Assessment: History of major depressive disorder [...] PO. Assessment & Plan (01/24/2020 8:11 AM SHEET METAL LAY OUT WORKER): Assessment: History of major depressive disorder [...] (02/22/20) Assessment & Plan (01/23/2020 7:09 AM SHEET METAL LAY OUT WORKER): Assessment: History of major depressive disorder [...] (02/22/20) Assessment & Plan (01/22/2020 7:52 AM SHEET METAL LAY OUT WORKER): Assessment: History of major depressive disorder [...] (02/22/20) Assessment & Plan (01/21/2020 7:40 AM SHEET METAL LAY OUT WORKER): Assessment: History of major depressive disorder [...] (02/22/20) Assessment & Plan (01/20/2020 7:36 AM SHEET METAL LAY OUT WORKER): Assessment: History of major depressive disorder [...] (02/22/20) Assessment & Plan (01/19/2020 7:22 AM SHEET METAL LAY OUT WORKER): Assessment: History of major depressive disorder [...] (02/22/20) Assessment & Plan (01/18/2020 4:35 PM SHEET METAL LAY OUT WORKER): Assessment: History of major depressive disorder [...] range. Assessment & Plan (04/08/2020 1:31 PM SHEET METAL LAY OUT WORKER): Assessment: Malnutrition is secondary to ARFID, [...] PT Assessment & Plan (04/07/2020 2:52 PM SHEET METAL LAY OUT WORKER): Assessment: Malnutrition is secondary to ARFID, [...] PT Assessment & Plan (04/07/2020 6:44 PM SHEET METAL LAY OUT WORKER): Assessment: Marlee is a 19 year [...] follow up with adolescent medicine on 04/18, [facility] on 05/02, and and scheduling Psych intake visit SOCIAL: - General medicine team spoke with and updated mother on 04/06 LABS: daily urine spec gravity, BMP/Mg/Phos Q / Assessment & Plan (04/06/2020 6:45 PM SHEET METAL LAY OUT WORKER): Assessment: Marlee is a 19 year [...] / Assessment & Plan (04/05/2020 3:22 PM SHEET METAL LAY OUT WORKER): Assessment: Malnutrition is secondary to ARFID, [...] PT Assessment & Plan (04/05/2020 10:49 AM SHEET METAL LAY OUT WORKER): Assessment: Marlee is a 19 year [...] gravity, BMP/Mg/Phos Q T/ Assessment & Plan (04/04/2020 3:59 PM SHEET METAL LAY OUT WORKER): Assessment: Malnutrition is secondary to ARFID, [...] daily Assessment & Plan (04/04/2020 10:21 AM SHEET METAL LAY OUT WORKER): Assessment: Marlee is a 19 year [...] / Assessment & Plan (04/03/2020 12:59 PM SHEET METAL LAY OUT WORKER): Assessment: Marlee is a 19 year [...] daily Assessment & Plan (04/02/2020 4:19 PM SHEET METAL LAY OUT WORKER): Assessment: Marlee is a 19 year [...] daily Assessment & Plan (04/01/2020 11:55 AM SHEET METAL LAY OUT WORKER): Assessment: Malnutrition is secondary to ARFID [...] daily Assessment & Plan (04/01/2020 11:15 AM SHEET METAL LAY OUT WORKER): Assessment: Marlee is a 19 year [...] daily Assessment & Plan (03/31/2020 12:05 PM SHEET METAL LAY OUT WORKER): Assessment: Malnutrition is secondary to ARFID [...] daily Assessment & Plan (03/31/2020 10:06 AM SHEET METAL LAY OUT WORKER): Assessment: Marlee is a 19 year [...] daily Assessment & Plan (03/30/2020 2:24 PM SHEET METAL LAY OUT WORKER): Assessment: Marlee is a 19 year [...] daily Assessment & Plan (03/29/2020 10:40 AM SHEET METAL LAY OUT WORKER): Assessment: Marlee is a 19 year [...] allowed in room. May have water from [employer] cup. Oral fluids limited to 250 mL [...] daily Assessment & Plan (03/28/2020 12:29 PM SHEET METAL LAY OUT WORKER): Assessment: Marlee is a 19 year [...] daily Assessment & Plan (03/27/2020 10:34 AM SHEET METAL LAY OUT WORKER): Assessment: Marlee is a 19 year [...] night 03/27: Increase to 50 mL/hr tonight. [facility] is aware of increase but [...] 03/24/2020) Lab schedule: CMP, Mg, Phos, Triglycerides: Tu, Thurs, Sun evening Spec grav: daily Assessment & Plan (03/26/2020 11:20 AM SHEET METAL LAY OUT WORKER): Assessment: Marele is a 19 year old [...] daily Assessment & Plan (03/25/2020 12:30 PM SHEET METAL LAY OUT WORKER): Assessment: Marlee is a 19 year [...] lipids at 17ml/hr -Continue Jevity, per Dr. Rigo -Overnight feeds Jevity 1.2 run at 30 [...] daily Assessment & Plan (03/24/2020 5:02 PM SHEET METAL LAY OUT WORKER): Assessment: Malnutrition is secondary to ARFID [...] anxiety Assessment & Plan (03/24/2020 11:19 AM SHEET METAL LAY OUT WORKER): Assessment: Marlee is a 19 year [...] allowed in room. May have water from [employer] cup. - May take shower while sitting [...] daily Assessment & Plan (03/23/2020 12:20 PM SHEET METAL LAY OUT WORKER): Assessment: Marlee is a 19 year [...] daily Assessment & Plan (03/22/2020 12:20 PM SHEET METAL LAY OUT WORKER): Assessment: Marlee is a 19 year [...] daily Assessment & Plan (03/21/2020 3:10 PM SHEET METAL LAY OUT WORKER): Assessment: Marlee is a 19 year [...] 3 times weekly (, Th, Sat) - Okay to space morning meds [...] 03/15/2020. Assessment & Plan (03/20/2020 10:32 AM SHEET METAL LAY OUT WORKER): Assessment: Marlee is a 19 year [...] 03/15/2020. Assessment & Plan (03/19/2020 10:37 AM SHEET METAL LAY OUT WORKER): Assessment: Marlee is a 19 year [...] 03/15/2020. Assessment & Plan (03/18/2020 1:00 PM SHEET METAL LAY OUT WORKER): Assessment: Marlee is a 19 year [...] 03/15/2020. Assessment & Plan (03/17/2020 10:36 AM SHEET METAL LAY OUT WORKER): Assessment: Marlee is a 19 year [...] 03/15/2020. Assessment & Plan (03/16/2020 2:10 PM SHEET METAL LAY OUT WORKER): Assessment: Marlee is a 19 year [...] 03/15/2020. Assessment & Plan (03/15/2020 11:10 AM SHEET METAL LAY OUT WORKER): Assessment: Marlee is a 19 year old with history of constipation, anxiety, and depression admitted for dehydration and functional pain with restrictive eating patterns related to anxiety. Adolescent medicine was consulted and is following. 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 [place] tube was placed on 12/23 by IR due to inability to tolerate [...] 03/15/2020 Assessment & Plan (03/14/2020 9:53 AM SHEET METAL LAY OUT WORKER): Assessment: Marlee is a 19 year [...] 03/15/2020 Assessment & Plan (03/13/2020 9:39 AM SHEET METAL LAY OUT WORKER): Assessment: Marlee is a 19 year [...] week Assessment & Plan (03/12/2020 11:35 AM SHEET METAL LAY OUT WORKER): Assessment: Marlee is a 19 year [...] week Assessment & Plan (03/11/2020 12:43 PM SHEET METAL LAY OUT WORKER): Assessment: Marlee is a 19 year [...] week Assessment & Plan (03/10/2020 9:12 AM SHEET METAL LAY OUT WORKER): Assessment: Marlee is a 19 year [...] in Assessment & Plan (03/09/2020 10:22 AM SHEET METAL LAY OUT WORKER): Assessment: Marlee is a 19 year [...] in Assessment & Plan (03/08/2020 10:52 AM SHEET METAL LAY OUT WORKER): Assessment: Marlee is a 19 year [...] in Assessment & Plan (03/07/2020 9:18 AM SHEET METAL LAY OUT WORKER): Assessment: Marlee is a 19 year [...] in Assessment & Plan (03/06/2020 10:09 AM SHEET METAL LAY OUT WORKER): Assessment: Marlee is a 19 year [...] in Assessment & Plan (03/05/2020 9:56 AM SHEET METAL LAY OUT WORKER): Assessment: Marlee is a 19 year [...] in Assessment & Plan (03/04/2020 12:58 PM SHEET METAL LAY OUT WORKER): Assessment: Marlee is a 19 year [...] A/P Assessment & Plan (03/03/2020 3:15 PM SHEET METAL LAY OUT WORKER): Assessment: Marlee is a 19 year [...] A/P Assessment & Plan (03/02/2020 12:06 PM SHEET METAL LAY OUT WORKER): Assessment: Marlee is a 19 year [...] A/P Assessment & Plan (03/01/2020 12:05 PM SHEET METAL LAY OUT WORKER): Assessment: Marlee is a 19 year [...] A/P Assessment & Plan (02/29/2020 12:52 PM SHEET METAL LAY OUT WORKER): Assessment: Marlee is a 19 year [...] A/P Assessment & Plan (02/28/2020 9:12 AM SHEET METAL LAY OUT WORKER): Assessment: Marlee is a 19 year [...] A/P Assessment & Plan (02/27/2020 10:03 AM SHEET METAL LAY OUT WORKER): Assessment: Marlee is a 19 year [...] due to emesis - [place] tube placed 12/23 - If tube is displaced, will attempt [...] A/P Assessment & Plan (02/26/2020 11:12 AM SHEET METAL LAY OUT WORKER): Assessment: Marlee is a 19 year [...] A/P Assessment & Plan (02/25/2020 9:32 AM SHEET METAL LAY OUT WORKER): Assessment: Marlee is a 19 year [...] A/P Assessment & Plan (02/24/2020 10:42 AM SHEET METAL LAY OUT WORKER): Assessment: Marlee is a 19 year [...] A/P Assessment & Plan (02/23/2020 10:22 AM SHEET METAL LAY OUT WORKER): Assessment: Marlee is a 19 year [...] A/P Assessment & Plan (02/22/2020 11:25 AM SHEET METAL LAY OUT WORKER): Assessment: Marlee is a 19 year [...] A/P Assessment & Plan (02/21/2020 10:54 AM SHEET METAL LAY OUT WORKER): Assessment: Marlee is a 19 year [...] A/P Assessment & Plan (02/20/2020 11:31 AM SHEET METAL LAY OUT WORKER): Assessment: Marlee is a 19 year [...] A/P Assessment & Plan (02/19/2020 3:04 PM SHEET METAL LAY OUT WORKER): Assessment: Marlee is a 19 year [...] Phos, Trigylcerides 3 times weekly (Tues, Th, Sat). Will obtain today due to adjustments made in TPN. Assessment & Plan (02/18/2020 10:14 AM SHEET METAL LAY OUT WORKER): Assessment: Marlee is a 19 year [...] Trigylcerides 3 times weekly (, , Sat) Assessment & Plan (02/17/2020 12:30 PM SHEET METAL LAY OUT WORKER): Assessment: Marlee is a 19 year [...] pending Assessment & Plan (02/16/2020 2:29 PM SHEET METAL LAY OUT WORKER): Assessment: Marlee is a 19 year [...] pending Assessment & Plan (02/15/2020 12:33 PM SHEET METAL LAY OUT WORKER): Assessment: Marlee is a 19 year [...] pending Assessment & Plan (02/14/2020 2:23 PM SHEET METAL LAY OUT WORKER): Assessment: Marlee is a 19 year [...] pending Assessment & Plan (02/13/2020 11:59 AM SHEET METAL LAY OUT WORKER): Assessment: Marlee is a 19 year [...] pending Assessment & Plan (02/12/2020 11:49 AM SHEET METAL LAY OUT WORKER): Assessment: Marlee is a 19 year [...] recs Assessment & Plan (02/11/2020 11:56 AM SHEET METAL LAY OUT WORKER): Assessment: Marlee is a 19 year [...] recs Assessment & Plan (02/10/2020 12:11 PM SHEET METAL LAY OUT WORKER): Assessment: Marlee is a 19 year [...] SG) Assessment & Plan (02/09/2020 11:49 AM SHEET METAL LAY OUT WORKER): Assessment: Marlee is a 19 year [...] SG) Assessment & Plan (02/08/2020 12:54 PM SHEET METAL LAY OUT WORKER): Assessment: Marlee is a 19 year [...] recs. Assessment & Plan (02/07/2020 12:06 PM SHEET METAL LAY OUT WORKER): Assessment: Marlee is a 19 year [...] SG) Assessment & Plan (02/06/2020 8:12 AM SHEET METAL LAY OUT WORKER): Assessment: Marlee is a 19 year [...] SG) Assessment & Plan (02/05/2020 9:12 AM SHEET METAL LAY OUT WORKER): Assessment: Marlee is a 19 year [...] TG) Assessment & Plan (02/04/2020 12:52 PM SHEET METAL LAY OUT WORKER): Assessment: Marlee is a 19 year [...] TG) Assessment & Plan (02/03/2020 2:38 PM SHEET METAL LAY OUT WORKER): Assessment: Marlee is a 19 year [...] TG) Assessment & Plan (02/02/2020 4:02 PM SHEET METAL LAY OUT WORKER): Assessment: Marlee is a 19 year [...] QOD Assessment & Plan (02/01/2020 12:08 PM SHEET METAL LAY OUT WORKER): Assessment: Marlee is a 19 year [...] RBCs. Assessment & Plan (01/31/2020 1:05 PM SHEET METAL LAY OUT WORKER): Assessment: Marlee is a 19 year [...] hematuria Assessment & Plan (01/30/2020 10:30 AM SHEET METAL LAY OUT WORKER): Assessment: Marlee is a 19 year [...] 10.2 Assessment & Plan (01/29/2020 9:39 PM SHEET METAL LAY OUT WORKER): Assessment: Marlee is a 19 year [...] syndrome Assessment & Plan (01/28/2020 11:59 AM SHEET METAL LAY OUT WORKER): Assessment: Marlee is a 19 year [...] QOD Assessment & Plan (01/27/2020 3:59 PM SHEET METAL LAY OUT WORKER): Assessment: Marlee is a 19 year [...] QOD Assessment & Plan (01/26/2020 5:14 PM SHEET METAL LAY OUT WORKER): Assessment: Marlee is a 19 year [...] QOD Assessment & Plan (01/25/2020 2:58 PM SHEET METAL LAY OUT WORKER): Assessment: Marlee is a 19 year [...] QOD Assessment & Plan (01/24/2020 11:54 AM SHEET METAL LAY OUT WORKER): Assessment: Marlee is a 19 year [...] orthostatics Assessment & Plan (01/23/2020 7:09 AM SHEET METAL LAY OUT WORKER): Assessment: Marlee is a 19 year [...] orthostatics Assessment & Plan (01/22/2020 4:25 PM SHEET METAL LAY OUT WORKER): Assessment: Marlee is a 19 year [...] orthostatics Assessment & Plan (01/21/2020 8:15 AM SHEET METAL LAY OUT WORKER): Assessment: Marlee Chavez is a 19 [...] orthostatics Assessment & Plan (01/20/2020 7:36 AM SHEET METAL LAY OUT WORKER): Assessment: Marlee Chavez is a 19 [...] orthostatics Assessment & Plan (01/19/2020 7:20 AM SHEET METAL LAY OUT WORKER): Assessment: Marlee Chavez is a 19 [...] orthostatics Assessment & Plan (01/18/2020 4:30 PM SHEET METAL LAY OUT WORKER): Assessment: Marlee Chavez is a 19 [...] consult Assessment & Plan (03/27/2020 10:35 AM SHEET METAL LAY OUT WORKER): Assessment: Marlee is admitted on ED Protocol for severe malnutrition. Following feeding plan per [facility]oles[facility] Nutrition. Plan: - see plan under ARFID problem Assessment & Plan (03/26/2020 11:20 AM SHEET METAL LAY OUT WORKER): Assessment: Marlee is admitted on ED Protocol for severe malnutrition. Following feeding plan per Adolescent Medicine and Nutrition. Plan: - see plan under ARFID problem Assessment & Plan (03/24/2020 11:19 AM SHEET METAL LAY OUT WORKER): Assessment: Marlee is admitted on ED Protocol for severe malnutrition. Following feeding plan per Adolescent Medicine and Nutrition. Plan: - see plan under ARFID problem Assessment & Plan (03/23/2020 9:00 AM SHEET METAL LAY OUT WORKER): Assessment: Marlee is admitted on ED Protocol for severe malnutrition. Following feeding plan per Adolescent Medicine [facility] Nutrition. Plan: - see plan under ARFID problem Assessment & Plan (03/22/2020 12:21 PM SHEET METAL LAY OUT WORKER): Assessment: Marlee is admitted on ED Protocol for severe malnutrition. Following feeding plan per Adolescent Medicine and Nutrition. Plan: - see plan under ARFID problem Assessment & Plan (03/17/2020 4:26 PM SHEET METAL LAY OUT WORKER): Assessment: Malnutrition is secondary to ARFID [...] anxiety Assessment & Plan (03/15/2020 11:10 AM SHEET METAL LAY OUT WORKER): Assessment: Marlee is admitted on ED Protocol for severe malnutrition. Following feeding plan per Adolescent Medicine and Nutrition. Plan: - see plan under ARFID problem Assessment & Plan (03/10/2020 11:17 AM SHEET METAL LAY OUT WORKER): Assessment: Malnutrition is secondary to ARFID [...] needed Assessment & Plan (03/06/2020 10:09 AM SHEET METAL LAY OUT WORKER): Assessment: Marlee is admitted on ED Protocol for severe malnutrition. Following feeding plan per Adolescent Medicine and Nutrition. Plan: - see plan under ARFID problem Assessment & Plan (03/04/2020 1:41 PM SHEET METAL LAY OUT WORKER): Assessment: Marlee is admitted on ED Protocol for severe malnutrition. Following feeding plan per Adolescent Medicine and Nutrition. Plan: - see plan under ARFID problem Assessment & Plan (03/04/2020 11:50 AM SHEET METAL LAY OUT WORKER): Assessment: Marlee is admitted on ED Protocol for severe malnutrition. Following feeding plan per Adolescent Medicine and Nutrition. Plan: - see plan under ARFID problem Assessment & Plan (03/03/2020 3:53 PM SHEET METAL LAY OUT WORKER): Assessment: Malnutrition is secondary to ARFID [...] dad. Assessment & Plan (02/27/2020 9:57 AM SHEET METAL LAY OUT WORKER): Assessment: Marlee is admitted on ED Protocol for severe malnutrition. Following feeding plan per Adolescent Medicine and Nutrition. Plan: - see plan under ARFID problem Assessment & Plan (02/26/2020 9:59 AM SHEET METAL LAY OUT WORKER): Assessment: Malnutrition is secondary to ARFID [...] plan. Assessment & Plan (02/25/2020 5:48 PM SHEET METAL LAY OUT WORKER): Assessment: Malnutrition is secondary to ARFID [...] plan. Assessment & Plan (02/18/2020 4:54 PM SHEET METAL LAY OUT WORKER): Assessment: Malnutrition is secondary to ARFID [...] daily Assessment & Plan (02/11/2020 11:47 AM SHEET METAL LAY OUT WORKER): Assessment: Malnutrition is secondary to ARFID [...] BID Assessment & Plan (02/09/2020 11:50 AM SHEET METAL LAY OUT WORKER): Assessment: Marlee is admitted on ED Protocol for severe malnutrition. Following feeding plan per Adolescent Medicine and Nutrition. Plan: - see plan under ARFID problem Assessment & Plan (02/07/2020 11:47 AM SHEET METAL LAY OUT WORKER): Assessment: Marlee is admitted on ED Protocol for severe malnutrition. Following feeding plan per Adolescent Medicine and Nutrition. Plan: - see plan under ARFID problem Assessment & Plan (02/06/2020 8:12 AM SHEET METAL LAY OUT WORKER): Assessment: Marlee is admitted on ED Protocol for severe malnutrition. Following feeding plan per Adolescent Medicine and Nutrition. Plan: - see plan under ARFID problem Assessment & Plan (02/05/2020 9:01 AM SHEET METAL LAY OUT WORKER): Assessment: Marlee is admitted on ED Protocol for severe malnutrition. Following feeding plan per Adolescent Medicine and Nutrition. Plan: - see plan under ARFID problem Assessment & Plan (02/04/2020 12:34 PM SHEET METAL LAY OUT WORKER): Assessment: Marlee is admitted on ED Protocol for severe malnutrition. Following feeding plan per Adolescent Medicine and Nutrition. Plan: - see plan under ARFID problem Assessment & Plan (02/03/2020 2:28 PM SHEET METAL LAY OUT WORKER): Assessment: Marlee is admitted on ED Protocol for severe malnutrition. Following feeding plan per Adolescent Medicine and Nutrition. Plan: - see plan under ARFID problem Assessment & Plan (02/02/2020 3:57 PM SHEET METAL LAY OUT WORKER): Assessment: Marlee is admitted on ED Protocol for severe malnutrition. Following feeding plan per Adolescent Medicine and Nutrition. Plan: - see plan under ARFID problem Assessment & Plan (02/01/2020 12:10 PM SHEET METAL LAY OUT WORKER): Assessment: Marlee is admitted on ED Protocol for severe malnutrition. Following feeding plan per Adolescent Medicine and Nutrition. Plan: - see plan under ARFID problem Assessment & Plan (01/31/2020 1:04 PM SHEET METAL LAY OUT WORKER): Assessment: Marlee is admitted on ED Protocol for severe malnutrition. Following feeding plan per Adolescent Medicine and Nutrition. Plan: - see plan under ARFID problem Assessment & Plan (01/30/2020 10:28 AM SHEET METAL LAY OUT WORKER): Assessment: Marlee is admitted on ED Protocol for severe malnutrition. Following feeding plan per Adolescent Medicine and Nutrition. Plan: - see plan under ARFID problem Assessment & Plan (01/28/2020 4:29 PM SHEET METAL LAY OUT WORKER): Assessment: Malnutrition is secondary to ARFID [...] BID Assessment & Plan (01/24/2020 11:54 AM SHEET METAL LAY OUT WORKER): Assessment: Marlee is admitted on ED Protocol for severe malnutrition. Following feeding plan per Adolescent Medicine and Nutrition. Plan: - see plan under ARFID problem Assessment & Plan (01/23/2020 7:09 AM SHEET METAL LAY OUT WORKER): Assessment: Marlee is admitted on ED Protocol for severe malnutrition. Following feeding plan per Adolescent Medicine and Nutrition. Plan: - see plan under ARFID problem Assessment & Plan (01/22/2020 9:48 AM SHEET METAL LAY OUT WORKER): Assessment: Malnutrition is secondary to ARFID [...] () Assessment & Plan (01/22/2020 7:52 AM SHEET METAL LAY OUT WORKER): Assessment: Marlee is admitted on ED Protocol for severe malnutrition. Following feeding plan per Adolescent Medicine and Nutrition. Plan: - see plan under ARFID problem Assessment & Plan (01/21/2020 10:33 AM SHEET METAL LAY OUT WORKER): Assessment: Malnutrition is secondary to ARFID [...] () Assessment & Plan (01/21/2020 7:40 AM SHEET METAL LAY OUT WORKER): Assessment: Marlee is admitted on ED Protocol for severe malnutrition. Following feeding plan per Adolescent Medicine and Nutrition. Plan: - see plan under ARFID problem Assessment & Plan (01/20/2020 7:36 AM SHEET METAL LAY OUT WORKER): Assessment: Marlee is admitted on ED Protocol for severe malnutrition. Following feeding plan per Adolescent Medicine and Nutrition. Plan: - see plan under ARFID problem Assessment & Plan (01/19/2020 7:22 AM SHEET METAL LAY OUT WORKER): Assessment: Marlee is admitted on ED Protocol for severe malnutrition. Following feeding plan per Adolescent Medicine and Nutrition. Plan: - see plan under ARFID problem Assessment & Plan (01/18/2020 4:25 PM SHEET METAL LAY OUT WORKER): Assessment: Marlee Chavez is a 19 [...] orthostatics Assessment & Plan (01/17/2020 12:38 PM SHEET METAL LAY OUT WORKER): Assessment: Marlee Chavez is a 19 [...] anxiety Assessment & Plan (01/16/2020 1:41 PM SHEET METAL LAY OUT WORKER): Assessment: Marlee Chavez is a 19 [...] anxiety Assessment & Plan (01/15/2020 8:49 PM SHEET METAL LAY OUT WORKER): Assessment: Malnutrition is secondary to ARFID [...] counseling. Assessment & Plan (01/15/2020 11:57 AM SHEET METAL LAY OUT WORKER): Assessment: Marlee Chavez is a 19 [...] anxiety Assessment & Plan (01/14/2020 1:00 PM SHEET METAL LAY OUT WORKER): Assessment: Malnutrition is secondary to ARFID [...] () Assessment & Plan (01/14/2020 9:54 AM SHEET METAL LAY OUT WORKER): Assessment: Marlee Chavez is a 19 [...] anxiety Assessment & Plan (01/13/2020 2:34 PM SHEET METAL LAY OUT WORKER): Assessment: Marlee Chavez is a 19 [...] anxiety Assessment & Plan (01/13/2020 12:01 PM SHEET METAL LAY OUT WORKER): Moderate protein-calorie malnutrition Assessment: Marlee Chavez [...] thereafter Assessment & Plan (01/12/2020 3:40 PM SHEET METAL LAY OUT WORKER): Moderate protein-calorie malnutrition Assessment: Marlee Chavez [...] chart) Assessment & Plan (01/12/2020 1:25 PM SHEET METAL LAY OUT WORKER): Assessment: Marlee Chavez is a 19 [...] anxiety Assessment & Plan (01/11/2020 11:43 AM SHEET METAL LAY OUT WORKER): Assessment: Marlee Chavez is a 19 [...] cysts Assessment & Plan (01/10/2020 9:32 AM SHEET METAL LAY OUT WORKER): Assessment: Marlee Chavez is a 19 [...] cysts Assessment & Plan (01/09/2020 11:08 AM SHEET METAL LAY OUT WORKER): Assessment: Marlee Chavez is a 19 [...] cysts Assessment & Plan (01/08/2020 1:32 PM SHEET METAL LAY OUT WORKER): Assessment: Marlee Chavez is a 19 [...] cysts Assessment & Plan (01/07/2020 2:52 PM SHEET METAL LAY OUT WORKER): Assessment: Marlee Chavez is a 19 [...] cysts Assessment & Plan (01/06/2020 11:27 AM SHEET METAL LAY OUT WORKER): Assessment: Marlee Chavez is a 19 [...] cysts Assessment & Plan (01/05/2020 3:49 PM SHEET METAL LAY OUT WORKER): Assessment: Marlee Chavez is a 19 [...] cysts Assessment & Plan (01/04/2020 1:53 PM SHEET METAL LAY OUT WORKER): Assessment: Marlee Chavez is a 19 [...] cysts Assessment & Plan (01/03/2020 12:34 AM SHEET METAL LAY OUT WORKER): Assessment: Marlee Chavez is a 19 [...] 03/18/2023 Assessment & Plan (01/24/2022 5:04 PM SHEET METAL LAY OUT WORKER): Assessment: Marlee Chavez is a 20 [...] gabapentin Assessment & Plan (01/23/2022 6:56 PM SHEET METAL LAY OUT WORKER): Assessment: Marlee Chavez is a 20 [...] olanzapine, periactin, fluoxetine, gabapentin Severe dehydration 08/10/2021 Assessment & Plan (08/10/2021 12:50 PM CDT): [...] pain Assessment & Plan (01/08/2021 3:05 PM SHEET METAL LAY OUT WORKER): Assessment: Patient is an 20 year [...] I&Os Assessment & Plan (01/07/2021 4:52 PM SHEET METAL LAY OUT WORKER): Assessment: Patient is an 20 year [...] it Assessment & Plan (01/06/2021 6:00 PM SHEET METAL LAY OUT WORKER): Assessment: Patient is an 20 year [...] I&Os Assessment & Plan (01/05/2021 1:27 PM SHEET METAL LAY OUT WORKER): Assessment: Patient is an 20 year [...] I&Os Assessment & Plan (01/04/2021 9:17 PM SHEET METAL LAY OUT WORKER): Assessment: Patient is an 20 year [...] I&Os Assessment & Plan (01/03/2021 8:43 PM SHEET METAL LAY OUT WORKER): Assessment: Patient is an 20 year [...] wearing condom. She has upcoming appointment with shift coordinator next month at which time, she will be getting a IUD. Plan: -urine test today -GC, chlamydia, trichomonas testing Assessment & Plan (05/24/2020 2:43 PM CDT): Will get urine Hcg and STI testing. Mom is aware and Marlee is ok with us communicating results to her mother. Purging 03/24/2020 05/24/2020 Assessment & Plan (04/05/2020 3:23 PM SHEET METAL LAY OUT WORKER): Assessment: Has been drinking excessive amounts of water and putting her fingers in her mouth to induce vomiting. No recorded emesis since 03/25. Plan: Will limit access to water to 250ml at a time. May only bathe once per day after she has taken her meds, had breakfast and lunch. Assessment & Plan (04/04/2020 12:58 PM SHEET METAL LAY OUT WORKER): Assessment: Has been drinking excessive amounts of water and putting her fingers in her mouth to induce vomiting. No recorded emesis since 03/25. Plan: Will limit access to water to 250ml at a time. May only bathe once per day after she has taken her meds, had breakfast and lunch. Assessment & Plan (04/01/2020 11:55 AM SHEET METAL LAY OUT WORKER): Assessment: Has been drinking excessive amounts of water and putting her fingers in her mouth to induce vomiting. No recorded emesis since 03/25. Plan: Will limit access to water to 250ml at a time. May only bathe once per day after she has taken her meds, had breakfast and lunch. Assessment & Plan (03/24/2020 4:53 PM SHEET METAL LAY OUT WORKER): Assessment: Has been drinking excessive amounts of water and putting her fingers in her mouth to induce vomiting. Plan: Will limit access to water to 250ml at a time. May only bathe once per day after she has taken her meds, had breakfast and lunch. Ovarian cyst 01/12/2020 03/19/2020 Assessment & Plan (03/15/2020 11:10 AM SHEET METAL LAY OUT WORKER): Assessment: on ultrasound on R Plan: -Radiology recommended repeat imaging in 6 months for ovarian cysts Assessment & Plan (03/04/2020 1:41 PM SHEET METAL LAY OUT WORKER): Assessment: on ultrasound on R Plan: -Radiology recommended repeat imaging in 6 months for ovarian cysts Assessment & Plan (03/04/2020 11:50 AM SHEET METAL LAY OUT WORKER): Assessment: on ultrasound on R Plan: -Radiology recommended repeat imaging in 6 months for ovarian cysts Assessment & Plan (02/27/2020 9:58 AM SHEET METAL LAY OUT WORKER): Assessment: on ultrasound on R Plan: -Radiology recommended repeat imaging in 6 months for ovarian cysts Assessment & Plan (01/28/2020 11:59 AM SHEET METAL LAY OUT WORKER): Assessment: on ultrasound on R Plan: -Radiology recommended repeat imaging in 6 months for ovarian cysts Assessment & Plan (01/27/2020 3:52 PM SHEET METAL LAY OUT WORKER): Assessment: on ultrasound on R Plan: -Radiology recommended repeat imaging in 6 months for ovarian cysts Assessment & Plan (01/26/2020 6:01 PM SHEET METAL LAY OUT WORKER): Assessment: on ultrasound on R Plan: -Radiology recommended repeat imaging in 6 months for ovarian cysts Assessment & Plan (01/13/2020 2:33 PM SHEET METAL LAY OUT WORKER): Assessment: on ultrasound on R Plan: -Radiology recommended repeat imaging in 6 months for ovarian cysts Assessment & Plan (01/12/2020 1:26 PM SHEET METAL LAY OUT WORKER): Assessment: on ultrasound on R Plan: -Radiology recommended repeat imaging in 6 months for ovarian cysts Self-injurious behavior 03/25/201705/12 Major depressive disorder, severe 03/21/2017 05/24/2020 Intractable vomiting 020 Encounters * This document contains information received from the source organization and may not represent a complete record from that organization. Date Type Department Care Team Description 07/07/2024 Travel 06/11/2024 Travel 06/10/2024 Orders Only [address] [address] Ronel Thornton DO 06/09/2024 Telephone [facility] [id number] DePjuan albertol , [address] [address] Mercedes Cruz APRN-WATER QUALITY MANAGER Follow-up 06/09/2024 Patient Outreach [facility] - Care Coordination [address] [place] [address] Marlee Taylor TRADE MARK EXAMINER [facility] Follow-up 06/08/2024 1:20 PM CDT Office Visit [address] [address] Ronel Thornton DO Moderate bulimia nervosa (HCC) (Primary Dx); Superior mesenteric artery syndrome (HCC); Avoidant-restrictiv e food intake disorder (ARFID) 06/08/[address] [address] Ronel Thornton DO Medication Issue 06/08/2024 Patient Outreach [facility] - Care Coordination [address] [place] [address] Marlee Taylor, TRADE MARK EXAMINER Follow-up 06/07/2024 2:27 AM CDT - 06/07/2024 7:04 AM CDT Emergency ER at [facility] [address] [place] [id number] Momo Yung MD Abdominal pain, epigastric; Nausea vomiting and diarrhea Discharge Disposition: Home or Self Care 06/07/2024 Travel from Last 3 Months Immunizations Immunization Administration Dates Next Due CovadFreeq primary monoval ent 12+ yr 0.3mL Purple [...] Recorded Patient Health Questionnaire-2 Score 0 07/07/2024 [facility] [place] of Occupat ional Health - Occupational Stress [...] place to sleep or slept in a prison (including now)? No 04/24/2023 Comments No Sex and Gender Information Value Date Recorded Sex Assigned at Not on file Legal Sex Female 6:25 PM SHEET METAL LAY OUT WORKER Gender Identity Not on file Sexual [...] st Contact Info) Description 01/20/2025 8:20 AM SHEET METAL LAY OUT WORKER Office Visit [facility] - Family Medicine [address] [place] [address] [id number] Ronel Thornton DO [address] [place] [id number] Health Maintenance Due Date Last Done Comments HPV VACCINE (1 - 3-dose series) 2017 MENINGOCOCCAL (Group B) VACCINE SHARED DECISION-MAKING (1 of 2 - Standard) 2018 COVID-19 VACCINE ( season) 2023 02/23/2021, 07/26/2020, 07/03/2020 DTAP/TDAP/TD VACCINES (7 - Td or Tdap) 12/16/2023 12/15/2013, 07/08/2007, 02/22/2004, Additional history exists INFLUENZA VACCINE (#1) 2024 01/25/2022, 2020 CHLAMYDIA/GONORRHEA SCREENING 11/28/2024 11/29/2023, 06/07/2022, 01/23/2022, Additional [...] AUTO DIFFERENTIAL STAT 06/07/2024 2:49 AM CDT PAP CERVICAL CANCER SCREEN CT/NG/TV APT Routine [...] POINT OF CARE (06/07/2024 6:34 AM CDT) [facility] Glucose WB/POC 107(H) 70 - 99 mg/dL 06/07/2024 6:03 PM CDT [facility] Specimen Type Cap Fingerstick 2024 6:03 PM CDT [facility] Blood BLOOD SPECIMEN / Unknown 06/07/2024 6:34 AM CDT 06/07/2024 6:03 PM CDT us Momo Yung MD LAB - POINT OF CARE ORDERABL ES Final Result [facility] [address] [place] [address] * CT Abdomen Pelvis W Contrast (06/07/2024 [...] - 99 mg/dL 06/07/2024 3:08 AM CDT [facility] Sodium 138 136 - 145 mmol/L 06/07/2024 3:08 AM CDT [facility] Potassium 3.9 3.5 - 5.1 mmol/L 06/07/2024 3:08 AM CDT [facility] Chloride 100 98 - 107 mmol/L 06/07/2024 3:08 AM CDT [facility] CO2 18(L) 22 - 29 mmol/L 06/07/2024 3:08 AM CDT [facility] Calcium 9.8 8.4 - 10.4 mg/dL 06/07/2024 3:08 AM CDT [facility] Anion Gap 20(H) 6 - 16 mmol/L 06/07/2024 3:08 AM CDT [facility] BUN 27(H) 5.3 - 18.7 mg/dL 06/07/2024 3:08 AM CDT [facility] Creatinine 1.07 0.57 - 1.11 mg/dL 06/07/2024 3:08 AM CDT [facility] Alkaline Phosphatase 66 40 - 150 U/L 06/07/2024 3:08 AM CDT [facility] ALT 18 6 - 57 U/L 06/07/2024 3:08 AM CDT [facility] AST 36 10 - 48 U/L 06/07/2024 3:08 AM CDT [facility] Protein Total 9.0(H) 6.4 - 8.3 gm/dL 06/07/2024 3:08 AM CDT [facility] Albumin 5.0 3.4 - 5.0 gm/dL 06/07/2024 3:08 AM CDT [facility] Bilirubin Total 0.7 0.2 - 1.2 mg/dL 06/07/2024 3:08 AM CDT [facility] eGFR by CKD-EPI 76(L) >=90 mL/min/1.7 3 m2 06/07/2024 3:08 AM CDT [facility] Blood BLOOD SPECIMEN / Unknown Venipuncture / Unknown 06/07/2024 2:50 AM CDT 06/07/2024 2:50 AM CDT Momo Yung MD LAB - CHEMISTRY ORDERABLES F inal Result [facility] [address] [place] [address] * HCG BETA BLOOD QUANTITATIVE (06/07/2024 2:50 AM CDT) [facility] hCG Quantitative <2.42 mIU/mL 06/08/19 3:11 AM CDT [facility] Blood BLOOD SPECIMEN / Unknown Venipuncture / Unknown 06/07/2024 2:50 AM CDT 06/07/2024 2:50 AM CDT Narrative [facility] - 06/07/2024 3:11 AM CDT [...] inal Result Performing Organization Address [facility] Co de Phone Number [facility] [address] [place] [phone] * PHOSPHORUS BLOOD (06/07/2024 2:50 AM CDT) Phosphorus 4.5 2.5 - 4.5 mg/dL 06/07/2024 3:08 AM CDT [facility] Blood BLOOD SPECIMEN / Unknown Venipuncture / Unknown 06/07/2024 2:50 AM CDT 06/07/2024 2:50 AM CDT Momo Yung MD LAB - CHEMISTRY ORDERABLES F inal Result Performing Organization Address [facility] Co de Phone Number [facility] [address] [place] [phone] * MAGNESIUM BLOOD (06/07/2024 2:50 AM CDT) Magnesium 2.2 1.6 - 2.6 mg/dL 06/07/2024 3:08 AM CDT [facility] Blood BLOOD SPECIMEN / Unknown Venipuncture / Unknown 06/07/2024 2:50 AM CDT 06/07/2024 2:50 AM CDT Momo Yung MD LAB - CHEMISTRY ORDERABLES F inal Result Performing Organization Address [facility] Co de Phone Number [facility] [address] [place] [phone] * (ABNORMAL) LIPASE BLOOD (06/07/2024 2:50 AM CDT) Pathologist [facility] Lipase 84(H) <60 U/L 06/07/2024 3:08 AM CDT [facility] Blood BLOOD SPECIMEN / Unknown Venipuncture / Unknown 06/07/2024 2:50 AM CDT 06/07/2024 2:50 AM CDT us Momo Yung MD LAB - CHEMISTRY ORDERABLES F inal Result [facility] [address] [place] [address] * CBC W AUTO DIFFERENTIAL (06/07/2024 2:49 AM CDT) Pathologist [facility] WBC 9.6 4.0 - 10.7 x10E9/L 06/07/2024 2:51 AM CDT [facility] RBC Count 4.88 3.90 - 5.20 x10E12/L 06/07/2024 2:51 AM CDT [facility] Hemoglobin 14.8 11.9 - 15.8 g/dL 06/07/2024 2:51 AM CDT [facility] Hematocrit 44.1 34.8 - 46.1 % 06/07/2024 2:51 AM CDT [facility] MCV 90.4 80.0 - 98.0 fL 06/07/2024 2:51 AM CDT [facility] MCH 30.3 26.7 - 33.6 pg 06/07/2024 2:51 AM CDT [facility] MCHC 33.6 31.7 - 36.3 g/dL 06/07/2024 2:51 AM CDT [facility] RDW-CV 12.6 11.3 - 14.8 % 06/07/2024 2:51 AM CDT [facility] Platelet Count 353 150 - 420 x10E9/L 06/07/2024 2:51 AM CDT [facility] MPV 9.6 7.8 - 11.4 fL 06/07/2024 2:51 AM CDT [facility] Neutrophil % 70.8 41.0 - 74.0 % 06/07/2024 2:51 AM CDT [facility] Lymphocyte % 18.4 17.0 - 47.0 % 06/07/2024 2:51 AM CDT [facility] Monocyte % 10.3 3.0 - 11.0 % 06/07/2024 2:51 AM CDT [facility] Eosinophil % 0.0 0.0 - 7.0 % 06/07/2024 2:51 AM CDT [facility] Basophil % 0.2 0.0 - 1.6 % 06/07/2024 2:51 AM CDT [facility] Immature Granulocytes % 0.3 0.0 - 1.0 % 06/07/2024 2:51 AM CDT [facility] Neutrophil Absolute 6.79 1.60 - 7.50 x10E9/L 06/07/2024 2:51 AM CDT [facility] Lymphocyte Absolute 1.77 1.00 - 4.40 x10E9/L 06/07/2024 2:51 AM CDT [facility] Monocyte Absolute 0.99 0.15 - 1.00 x10E9/L 06/07/2024 2:51 AM CDT [facility] Eosinophil Absolute 0.00 0.00 - 0.60 x10E9/L 06/07/2024 2:51 AM CDT [facility] Basophil Absolute 0.02 0.00 - 0.13 x10E9/L 06/07/2024 2:51 AM CDT [facility] Blood BLOOD SPECIMEN / Unknown Venipuncture / Unknown 06/07/2024 2:49 AM CDT 06/07/2024 2:49 AM CDT us Momo Yung MD LAB - HEMATOLOGY ORDERABLES Final Result [facility] [address] [place] [address] * (ABNORMAL) PAP CERVICAL CANCER SCREEN CT/NG/TV APT (11/29/2023 11:06 AM CDT) Age Gdln ACOG Testing 21-29 [facility] ACCOUNT BILL Comment: Performed at: 02 - [facility] [address] [id number] Mri Special Procedures Technologist: Meredith Gil MD, Phone: [phone] Performed at: - [facility] [address] [id number] Mri Special Procedures Technologist: Meredith Gil MD, Phone: [phone] Diagnosis Comment(A) [facility] ACCOUNT BILL Comment: EPITHELIAL [...] 12/05/2023 5:09 PM CDT Performed at: - [facility] [address] [id number] Mri Special Procedures Technologist: Meredith Gil MD, Phone: [phone] Specimen Comment: [id number] Specimen Comment: Source.............Cervix Specimen Comment: No. of containers..01 ThinPrep Vial Nai Jurado MD LAB - PATHOLOGY/CYTOLOGY ORDE RABLES Final Result Performing Organization Address [facility] Co de Phone Number [facility] ACCOUNT BILL [address] [place] [address] * HIV-1 HIV-2 ANTIBODY + HIV P24 AG PANEL (11/29/2023 10:55 AM CDT) [facility] HIV Screen 4th Generation w Reflex Non Reactive Non Reactive [facility] ACCOUNT BILL Comment: HIV-1/HIV-2 antibodies and HIV-1 p24 antigen were NOT detected. There is no laboratory evidence of HIV infection. HIV Negative Blood BLOOD SPECIMEN / Unknown 11/29/2023 10:55 AM CDT 11/29/2023 Narrative [facility] ACCOUNT BILL - 11/30/2023 10:10 AM CDT Performed at: 01 - [facility] [id number] Mri Special Procedures Technologist: Karlos Huffman PhD, Phone: [phone] Nai Jurado MD LAB - CHEMISTRY ORDERABLES Fi nal Result Performing Organization Address [facility] de Phone Number [facility] ACCOUNT BILL [address] [place] [address] * HEPATITIS C AB W/RFLX TO HCV RNA QN PCR (12/07/2021) [facility] Hepatitis C Antibody NON-REACTI VE NON-REACT [facility] Signal to Cut-Off 0.08 <1.00 [facility] Comment: HCV antibody was non-reactive. There is no laboratory evidence of HCV infection. In most cases, no further action is required. However, if recent HCV exposure is suspected, a test for HCV RNA (test code 74661) is suggested. For additional information please refer to http://education.[employer]/faq/PTW59o2 (This link is being provided for informational/ educational purposes only.) Test Performed at: [facility] [address] [facility] [place] [address] PURVI PABLO DO,MPH Blood BLOOD SPECIMEN / Unknown 12/07/2021 12/07/2021 10:47 AM CDT Karrie Mack MD LAB - CHEMISTRY ORDERABLES Final Result Performing Organization Address City/State/[facility] Phone Number [facility] [address] [place] [address] from Last 3 Months or Most Recently Relevant to Health Maintenance Insurance [facility] Advance Directives * Full Code (Latest [...] 4:54 PM 06/22/2022 2:44 PM Care Teams Cable Splicing Technician Relationship Specialty Start Date End Date Ronel Thornton DO [address] [place] [address] PCP - General Family Medicine 03/18/23 Ronel Thornton DO [address] [place] [address] PCP - Attributed-[facility] STL 04/12/23
--- OUTSIDE RECORDS SUMMARY | 2024-08-25 07:26 | XMS_ITS | Encounter Summary ---
Author Organization [facility] Address [address] [place] [address] Care Team Providers Care Assembler Movement Name Role Phone Mellissa Jiménez MD Primary Care Provider [phone] Ronel Thornton DO Primary Care Provider [phone] Daphnie Gillespie MD Unavailable Juliana Peralta STREET CAR INSPECTOR Unavailable [phone] CAR INSPECTOR Unavailable [phone] Ronel Thornton DO Unavailable Kenyatta Taylor RN Unavailable Tiago Lew Unavailable [phone] Reason for Visit * Reason Onset Date Comments Appointment 10/05/2020 Contraceptive management 10/05/2020 Encounter Details Date Type Department Care Team (Late st Contact Info) Description 10/05/2020 Telephone [facility] [address] [place], [place] [id number] [place] [address] [place] [address] Appointment; Contraceptive management Social History Tobacco Use Types Packs/Day Years Used Date Smoking Tobacco: Never Smokeless Tobacco: Never Alcohol Use Standard Drinks/Week Comments No 0 (1 standard drink = 0.6 oz pur e alcohol) Comments No Sex and Gender Information Value Date Recorded Sex Assigned at Not on file Legal Sex Female 6:25 PM CRITICAL CARE UNIT NURSE Gender Identity Not on file Sexual Orientation [...] the office yet to get scheduled. CB# [phone] documented in this encounter Plan of Treatment Upcoming Encounters Date Type Department Care Team (Late st Contact Info) Description 01/20/2025 8:20 AM CRITICAL CARE UNIT NURSE Office Visit [facility] Family Medicine [address] [place] [address] Ronel Thornton DO [address] [place] [address] documented as of this encounter Visit Diagnoses Not on filedocumented in this encounter Additional Health Concerns Infection Onset Date Last Indicated Resolved Time COVID-19 Under Investigation 08/10/2021 08/10/2021 08/10/2021 2:59 AM CDT documented as of this encounter Care Teams Assembler Movement Relationship Specialty Start Date End Date Mellissa Jiménez MD [address] [place] [address] [place] [address] PCP - General Family Medicine 04/25/20 03/17/23 Ronel Thornton DO [address] [place] [address] PCP - General Family Medicine 03/18/23 [place] [address] [place] [phone] PCP - Attributed-[facility] STL 02/11/23 04/11/23 Ronel Thornton DO [address] [place] [address] PCP - Attributed-[facility] STL 04/12/23 Juliana Peralta MSW Outpatient Environmental Lawyer Care Management 04/24/2304/11 Juliana Peralta MSW Outpatient Environmental Lawyer Care Management 04/30/2304/12 Kenyatta Taylor RN [address] [address] Diagnostic Sales SpecialistPrint Support Specialist 09/02/23 10/04/23 Tiago Lew Care Coordination Specialist Care Management 09/26/23 11/10/23 documented as of this encounter
[2024-08-25 07:27] LABS: Hematocrit 36.9 % (37.0-47.0); Hemoglobin 12.1 g/dL (12.0-15.0); Immature Granulocyte Percent A 0.4 % (0-0.5); Immature Platelet Fraction Pct 8.4 % (0.9-11.2); Lymphocytes Absolute Auto 4.15 K/mm3 (0.9-3.2); Mean Corpuscular HGB Conc 32.8 g/dl (32-36); Mean Corpuscular Hemoglobin 30.0 pg (26-34); Mean Corpuscular Volume 91.3 fl (80-100); Nucleated Red Blood Cells Absolute Auto 0.000 K/mm3 (0.0-0.012); Nucleated Red Blood Cells Perc 0.0 % (0.0-0.2); Platelet Count Result 170 k/mm3 (150-375); Red Blood Count 4.04 M/mm3 (4.2-5.4); White Blood Count 12.0 K/mm3 (4.5-10.0)
--- NOTE | 2024-08-25 07:31 | PC.NURSE ---
PT STATES SHE CAN'T GIVE URINE SPECIMEN AT THIS TIME. PT IS MOANING AND JUMPING UP AND DOWN BESIDE THE BED. SHE STATES IT HELPS DISTRACT HER FROM THE PAIN. NO EMESIS NOTED WHILE JUMPING UP AND DOWN.
[2024-08-25 07:36] LABS: Alanine Aminotransferase 24 U/L (6-35); Albumin Level 4.5 g/dL (3.5-5.1); Alkaline Phosphatase 66 U/L (38-126); Anion Gap 19 mmol/L (4-12); Aspartate Amino Transferase 36 U/L (14-36); Bilirubin,Total 0.2 mg/dL (0.2-1.3); Blood Urea Nitrogen 8 mg/dL (7-17); Calcium 9.1 mg/dL (8.4-10.2); Carbon Dioxide 13 mmol/L (22-30); Chloride 107 mmol/L (98-107); Estimated CRCL calculation 66 ml/min; Estimated Glomerular Filt Rate > 60; Glucose 163 mg/dL (65-110); Lipase 113 U/L (23-300); Potassium 3.5 mmol/L (3.4-5.0); Sodium 139 mmol/L (137-145); Total Protein 7.6 g/dL (6.3-8.2)
[2024-08-25 07:58] LABS: SPREG INTERNAL CONTROL Positive; Serum Qual hCG Negative
[2024-08-25 08:00] VITALS: BP 165/99; PULSE 119; RESP 20; O2SAT 98
[2024-08-25] MEDS: LACTATED RINGERS 1,000 ML 999 ML IV CONT ×2 (08:05→09:46)
[2024-08-25 08:21] LABS: Add Urine Microscopic? YES; Appearance Urine Clear (Clear); Glucose Urine UA Negative (Negative); Leukocyte Esterase Ur Negative LEU/UL (Negative); Nitrate Urine Negative (Negative); Non Pathogenic Casts 0-2; Specific Grav Ur 1.023 (1.001-1.035)
[2024-08-25] MEDS: PANTOPRAZOLE SODIUM IV 40 MG VIAL IV PUSH (09:14)
[2024-08-25] MEDS: DICYCLOMINE HCL 10 MG CAPSULE 20 MG PO (09:14)
[2024-08-25 09:15] VITALS: BP 155/93; PULSE 110; RESP 18; O2SAT 100
[2024-08-25] MEDS: BISMUTH SUBSALICYLATE 262 MG CHEWABLE TABLET 524 MG PO (09:15)
[2024-08-25 10:34] VITALS: BP 136/90; PULSE 111; RESP 16; O2SAT 100
--- NOTE | 2024-08-25 12:59 | ED_ITS ---
HPI - Nausea/Vomiting/Diarrhea General Chief complaint: Nausea/Vomiting/Diarrhea Stated complaint: ?bad [id number]-box Time Seen by Provider: 08/25/24 06:58 History of Present Illness HPI Narrative: Patient had Gldw-Tw-Xqe-Box this morning and afterwards started having nausea, vomiting, diarrhea. Also reports epigastric/periumbilical pain. Cannot stop throwing up. Related Data Home Medications ?Medication ?Instructions ?Recorded ?Confirmed ?Last Taken ?Type olanzapine 15 mg tablet 15 tablet PO DAILY 07/17/21 07/18/24 07/17/24 19:00 History escitalopram oxalate 10 mg tablet 10 mg PO DAILY 07/18/24 07/18/24 07/17/24 19:00 History Allergies Allergy/AdvReac Type Severity Reaction Status Date / Time No Known Allergies Allergy Verified 07/27/24 17:11 Review of Systems 2 Review of Systems: All systems reviewed & are unremarkable except as noted in HPI and below PMFSH Past Medical History Medical History (Updated 08/25/24 @ 09:35 by Camille Meza MD) Drug withdrawal seizure History of eating disorder Anxiety Depression Family History Family History Grandparent History of alcoholism Depression Mother History of alcoholism Hypertension Depression Social History Social History Smoking status: Never smoker Alcohol intake: never Substance use: current Substance use type: marijuana Last use: 07/18/2024 Do You Feel Safe in your Home?: Yes Lack of Transportation: No Lack of Food: Never True Current Housing: I Have Housing Concerned About Future Housing: No Difficulty Paying Gas/Electric Bills: No Difficulty Paying for Meds: No Currently Unemployed: No Education: High School Diploma/GED Difficulty w/ Childcare or Family Care: No Living arrangements: with roommate(s) Occupation/Education: unemployed Additional occupation/education comments: not currently working or in school Gender identity (if verbalized by the patient): Female Spiritual care concerns: No Exam 2 Narrative: EXAMINATION OF ORGAN SYSTEMS/BODY AREAS: Constitutional: Vital signs per nursing GENERAL: Actively retching very loudly HEAD: Normal with no signs of head trauma. EYES: EOMI, conjunctiva normal ENT: Hearing grossly intact LUNGS: Dyspneic HEART: Tachycardic ABD: [Soft], no focal tenderness EXT: Normal range of motion SKIN: [No rashes or lesions.] NEURO: [Alert and oriented x 3. No gross focal sensory or strength deficits.] PSYCH: Anxious affect Course Vital Signs Vital signs: Vital Signs Pulse Rate 117 H 08/25/24 06:59 Respiratory Rate 23 H 08/25/24 06:59 Blood Pressure 147/107 H 08/25/24 06:59 Pulse Oximetry 99 08/25/24 06:59 Oxygen Delivery Room Air 08/25/24 06:59 Pulse Rate 111 H 08/25/24 10:34 Respiratory Rate 16 08/25/24 10:34 Blood Pressure 136/90 08/25/24 10:34 Pulse Oximetry 100 08/25/24 10:34 Oxygen Delivery Room Air 08/25/24 06:59 MDM - Nausea/Vomiting/Diarrhea MDM Narrative Medical decision making narrative: 22-year-old female presents with nausea, vomiting, diarrhea, abdominal pain, after eating Oscar in the Box. On exam she is extremely anxious appearing, actively retching loudly. Fluids given, several rounds of antiemetics given with Compazine/Benadryl, then droperidol. On re-evaluation, patient now resting very comfortably. Nausea has resolved. She still has epigastric discomfort, so additional medications including Pepto-Bismol, Bentyl, Protonix, additional fluids given. On re-evaluation, patient feels much better. Return precautions provided and stable for discharge at this time with follow-up to PCP. Lab Data 08/25/24 07:08/25/24 07:16 Labs: Lab Results 08/25/24 08/25/24 08/25/24 Range/Units 07:15 07:16 07:55 WBC 12.0 H (4.5-10.0) K/mm3 RBC 4.04 L (4.2-5.4) M/mm3 Hgb 12.1 (12.0-15.0) g/dL Hct 36.9 L (37.0-47.0) % MCV 91.3 (80-100) fl MCH 30.0 (26-34) pg MCHC 32.8 (32-36) g/dl RDW 13.0 (11.5-14.5) % Plt Count 170 D (150-375) k/mm3 MPV 10.7 H (7.4-10.4) fl Immature Gran % (Auto) 0.4 (0-0.5) % Neut % (Auto) 56.6 (45.5-73.1) % Lymph % (Auto) 34.7 (18.3-44.2) % [place] % (Auto) 7.7 (2.6-8.5) % Eos % (Auto) 0.2 (0-4.4) % Baso % (Auto) 0.4 (0.2-1.2) % Lymph # (Auto) 4.15 H (0.9-3.2) K/mm3 [place] # (Auto) 0.9 H (0.1-0.6) K/mm3 Eos # (Auto) 0.0 (0-0.3) K/mm3 Baso # (Auto) 0.1 (0.0-0.1) K/mm3 Abs Immat Gran (auto) 0.05 H (0.00-0.031) K/mm3 Absolute Neuts (auto) 6.8 H (1.3-6.7) K/mm3 Absolute Nucleated RBC 0.000 (0.0-0.012) K/mm3 Nucleated RBC % 0.0 (0.0-0.2) % % Immature Plt Fraction 8.4 (0.9-11.2) % Sodium 139 (137-145) mmol/L Potassium 3.5 (3.4-5.0) mmol/L Chloride 107 (98-107) mmol/L Carbon Dioxide 13 L (22-30) mmol/L Anion Gap 19 H (4-12) mmol/L BUN 8 (7-17) mg/dL Creatinine 0.82 (0.7-1.0) mg/dL Estim Creat Clear Calc 66 ml/min Estimated GFR > 60 (59 - ) Glucose 163 H (65-110) mg/dL Calcium 9.1 (8.4-10.2) mg/dL Total Bilirubin 0.2 (0.2-1.3) mg/dL AST 36 (14-36) U/L ALT 24 (6-35) U/L Alkaline Phosphatase 66 (38-126) U/L Total Protein 7.6 (6.3-8.2) g/dL Albumin 4.5 (3.5-5.1) g/dL Lipase 113 (23-300) U/L Serum HCG, Qual Negative Urine Color Yellow (Yellow) Urine Appearance Clear (Clear) Urine pH 5.5 (5.0-9.0) Ur Specific [place] 1.023 (1.001-1.035) Urine Protein 1+ H (Negative) mg/dL Urine Glucose (UA) Negative (Negative) mg/dL Urine Ketones 3+ H (Negative) mg/dL Ur Blood (Man) Negative (Negative) Urine Nitrate Negative (Negative) Urine Bilirubin Negative (Negative) Urine Urobilinogen 0.2 (<2.0) mg/dL Leukocyte Esterase Rfl Negative (Negative) CHASIDY/UL Urine RBC 0-2 (0-2) /hpf Urine WBC 0-5 (0-3) /hpf Ur Squamous Epith Cells Few (Few) /hpf Urine Bacteria None seen /hpf Urine Casts 0-2 Discharge Plan Discharge Clinical Impression: Nausea and vomiting, Abdominal pain Patient Disposition: Home Condition: Stable Instructions: Acute Nausea and Vomiting (ED), Acute Diarrhea (ED), Abdominal Pain (ED) Additional Instructions: Please follow up with your doctor; take the medications as prescribed, you can always return for any further issues. Patient Language: Trinidadian Prescriptions: New famotidine 20 mg tablet 20 mg PO DAILY Qty: 30 0RF dicyclomine 20 mg tablet 20 mg PO TID PRN (Reason: abdominal pain) Qty: 30 0RF ondansetron 4 mg tablet,disintegrating 4 mg PO Q8H PRN (Reason: nausea and vomiting) Qty: 14 0RF Pepto-Bismol 262 mg tablet 524 mg PO QID PRN (Reason: diarrhea) 3 Days Qty: 24 0RF No Action olanzapine 15 mg tablet 15 tablet PO DAILY hydroxyzine pamoate [Vistaril] 25 mg capsule 25 mg PO TID PRN (Reason: anxiety) Qty: 20 0RF escitalopram oxalate 10 mg tablet 10 mg PO DAILY Follow-up/Referrals: UNKNOWN,DOCTOR [Primary Care Provider] -
== END 2024-08-25 10:35 | disposition home or self-care (01) ==
PROVIDERS: Emergency Provider Emergency Medicine
DX: R11.2 Nausea with vomiting, unspecified (principal); R10.9 Unspecified abdominal pain; F41.9 Anxiety disorder, unspecified; F32.A Depression, unspecified
CPT/HCPCS: 36415; 80053; 81001; 83690; 84703; 85025; 85055; 96361; 96374; 96375; 99284; A9270; J0780; J1200; J1790; J2470; J7120

== ENCOUNTER 2024-09-22 07:19 | Emergency (ER) | payer SELFPAY ==
--- OUTSIDE RECORDS SUMMARY | 2024-09-22 07:22 | XMS_ITS | Encounter Summary ---
Author Organization [facility] Address [address] [place] [address] Care Team Providers Care Men'S Swim Coach Name Role Phone Mellissa Jiménez MD Primary Care Provider [phone] Ronel Thornton DO Primary Care Provider [phone] Daphnie Gillespie MD Unavailable Juliana Peralta STOCK SELECTOR Unavailable [phone] Juliana Peralta STOCK SELECTOR Unavailable [phone] Ronel Thornton DO Unavailable [phone] Kenyatta Taylor RN Unavailable [phone] Tiago Lew Unavailable [phone] Reason for Visit * Reason Onset Date Comments Eating disorder 08/04/2020 Encounter Details Date Type Department Care Team (Late st Contact Info) Description 08/04/2020 Telephone [facility] Sap Basis Consultant [address] [place] [address] Flor Martinez, CEMENT PRODUCTION PLANT OPERATOR Eating disorder Social History Tobacco Use Types Packs/Day Years Used Date Smoking Tobacco: Never Smokeless Tobacco: Never Alcohol Use Standard Drinks/Week Comments No 0 (1 standard drink = 0.6 oz pur e alcohol) Comments No Sex and Gender Information Value Date Recorded Sex Assigned at Not on file Legal Sex Female 6:25 PM VITAMIN MANAGER Gender Identity Not on file Sexual [...] phone calls with Kenyatta's mother Esperanza and [facility] this week regarding Kenyatta's relapse, and mother's belief that she needs to be admitted to [facility]. Spoke with mother again this a.m, and they have a phone intake assessment with [facility] next SaturdayAugust 08. documented in this encounter Plan of Treatment Upcoming Encounters Date Type Department Care Team (Late st Contact Info) Description 01/20/2025 8:20 AM VITAMIN MANAGER Office Visit [facility] - Family Medicine [address] [place] [address] Ronel Thornton DO [address] [place] [address] documented as of this encounter Visit Diagnoses Not on filedocumented in this encounter Additional Health Concerns Infection Onset Date Last Indicated Resolved Time COVID-19 Under Investigation 08/10/2021 08/10/2021 08/10/2021 2:59 AM CDT documented as of this encounter Care Teams Men'S Swim Coach Relationship Specialty Start Date End Date Mellissa Jiménez MD [address] [place] [address] [place] [address] PCP - General Family Medicine 04/25/20 03/17/23 Ronel Thornton DO [address] [place] [address] PCP - General Family Medicine 03/18/23 Daphnie Gillespie MD [address] [place] [address] PCP - Attributed-[facility] STL 02/11/23 04/11/23 Ronel Thornton DO [address] [place] [address] PCP - Attributed-[facility] STL 04/12/23 Juliana Peralta MSW Outpatient Product Safety Engineer Care Management 04/24/2304/11 Juliana Peralta MSW Outpatient Product Safety Engineer Care Management 04/30/2304/12 Kenyatta Taylor RN [address] [address] [address] Light Servicer HelperTemperature Regulator Pyrometer 09/02/23 10/04/23 Tiago Lew Care Coordination Specialist Care Management 09/26/23 11/10/23 documented as of this encounter
--- OUTSIDE RECORDS SUMMARY | 2024-09-22 07:22 | XMS_ITS | Clinical Summary ---
Author Organization [facility] Address [address] [place] [address] Care Team Providers Care Healthcare Consultant Name Role Phone Ronel Thornton DO Primary Care Provider [phone] Ronel Thornton DO Unavailable [phone] Source Comments [facility],non-owned Affiliates and Associated Physician Practices is amultiple site organization consisting of ambulatory clinics and hospital sitesin [place], [place], [place] and [place]. This disclosure is being madepursuant to the Care Everywhere program and may not contain all information available regarding this patient. Last updated 17.[facility] Allergies No known active allergies Medications * [...] 01/18/2020 Assessment & Plan (01/08/2021 3:06 PM REHABILITATION SERVICES COUNSELOR): Assessment: Major depressive disorder, generalized anxiety disorder [...] recs Assessment & Plan (01/07/2021 4:50 PM REHABILITATION SERVICES COUNSELOR): Assessment: Major depressive disorder, generalized anxiety disorder [...] recs Assessment & Plan (01/06/2021 5:55 PM REHABILITATION SERVICES COUNSELOR): Assessment: Major depressive disorder, generalized anxiety disorder [...] slowly. Assessment & Plan (04/07/2020 6:45 PM REHABILITATION SERVICES COUNSELOR): Assessment: Hx of major depressive disorder and generalized anxiety disorder. Pt has been seen by psychiatry and psychology, now improved since starting/optimizing zyprexa QHS, clonazepam TID, and prozac QD. Plan: - Prozac 30 mg QD (dose of 30 mg started on 03/09/20, Prozac initially began 02/07) - Zyprexa 5 mg QHS - Klonopin 0.5mg TID Assessment & Plan (04/06/2020 3:54 PM REHABILITATION SERVICES COUNSELOR): Assessment: Hx of major depressive disorder and [...] TID Assessment & Plan (04/05/2020 10:49 AM REHABILITATION SERVICES COUNSELOR): Assessment: Hx of major depressive disorder and [...] TID Assessment & Plan (04/04/2020 10:23 AM REHABILITATION SERVICES COUNSELOR): Assessment: Hx of major depressive disorder and [...] TID Assessment & Plan (04/03/2020 6:30 PM REHABILITATION SERVICES COUNSELOR): Assessment: Hx of major depressive disorder and [...] TID Assessment & Plan (04/01/2020 11:15 AM REHABILITATION SERVICES COUNSELOR): Assessment: Hx of major depressive disorder and [...] dose) Assessment & Plan (03/31/2020 10:07 AM REHABILITATION SERVICES COUNSELOR): Assessment: Hx of major depressive disorder and [...] dose) Assessment & Plan (03/30/2020 2:24 PM REHABILITATION SERVICES COUNSELOR): Assessment: Hx of major depressive disorder and [...] dose) Assessment & Plan (03/29/2020 6:50 AM REHABILITATION SERVICES COUNSELOR): Assessment: Hx of major depressive disorder and [...] dose) Assessment & Plan (03/27/2020 10:30 AM REHABILITATION SERVICES COUNSELOR): Assessment: Hx of major depressive disorder and generalized anxiety disorder. Pt seen by psychiatry on admission and was started elavil, but continued to have anxiety. Elavil was discontinued due to persistent tachycardia and hypotension. [facility], she was started on zyprexa [...] dose) Assessment & Plan (03/26/2020 11:15 AM REHABILITATION SERVICES COUNSELOR): Assessment: Hx of major depressive disorder and [...] dose) Assessment & Plan (03/25/2020 8:58 AM REHABILITATION SERVICES COUNSELOR): Assessment: Hx of major depressive disorder and [...] dose) Assessment & Plan (03/24/2020 6:44 AM REHABILITATION SERVICES COUNSELOR): Assessment: Hx of major depressive disorder and [...] dose) Assessment & Plan (03/23/2020 12:19 PM REHABILITATION SERVICES COUNSELOR): Assessment: Hx of major depressive disorder and [...] dose) Assessment & Plan (03/22/2020 10:47 AM REHABILITATION SERVICES COUNSELOR): Assessment: Hx of major depressive disorder and [...] recommendations) Assessment & Plan (03/21/2020 3:11 PM REHABILITATION SERVICES COUNSELOR): Assessment: Hx of major depressive disorder and [...] mg. Assessment & Plan (03/20/2020 10:31 AM REHABILITATION SERVICES COUNSELOR): Assessment: Hx of major depressive disorder and generalized anxiety disorder. Pt seen by psychiatry on admission and was started elavil, but continued to have anxiety. Elavil was discontinued due to persistent tachycardia and hypotension. [facility], she was started on zyprexa QHS, [...] 03/21. Assessment & Plan (03/19/2020 10:38 AM REHABILITATION SERVICES COUNSELOR): Assessment: Hx of major depressive disorder and [...] withdrawal Assessment & Plan (03/18/2020 12:58 PM REHABILITATION SERVICES COUNSELOR): Assessment: Hx of major depressive disorder and [...] anxiety Assessment & Plan (03/17/2020 10:33 AM REHABILITATION SERVICES COUNSELOR): Assessment: Hx of major depressive disorder and [...] appreciated Assessment & Plan (03/16/2020 2:24 PM REHABILITATION SERVICES COUNSELOR): Assessment: Hx of major depressive disorder and [...] recommendations Assessment & Plan (03/15/2020 11:11 AM REHABILITATION SERVICES COUNSELOR): Assessment: Hx of major depressive disorder and [...] anxiety Assessment & Plan (03/14/2020 6:28 AM REHABILITATION SERVICES COUNSELOR): Assessment: Hx of major depressive disorder and [...] anxiety Assessment & Plan (03/13/2020 6:28 AM REHABILITATION SERVICES COUNSELOR): Assessment: Hx of major depressive disorder and [...] anxiety Assessment & Plan (03/12/2020 11:35 AM REHABILITATION SERVICES COUNSELOR): Assessment: Hx of major depressive disorder and [...] anxiety Assessment & Plan (03/11/2020 12:43 PM REHABILITATION SERVICES COUNSELOR): Assessment: Hx of major depressive disorder and [...] anxiety Assessment & Plan (03/10/2020 6:11 AM REHABILITATION SERVICES COUNSELOR): Assessment: Hx of major depressive disorder and [...] anxiety Assessment & Plan (03/09/2020 6:24 AM REHABILITATION SERVICES COUNSELOR): Assessment: Hx of major depressive disorder and [...] anxiety Assessment & Plan (03/08/2020 10:51 AM REHABILITATION SERVICES COUNSELOR): Assessment: Hx of major depressive disorder and [...] anxiety Assessment & Plan (03/07/2020 9:15 AM REHABILITATION SERVICES COUNSELOR): Assessment: Hx of major depressive disorder and [...] recommendations -Develop daily schedule with assistance of residential child care counselor-Alma Assessment & Plan (03/06/2020 10:09 AM REHABILITATION SERVICES COUNSELOR): Assessment: Hx of major depressive disorder and [...] anxiety Assessment & Plan (03/05/2020 9:56 AM REHABILITATION SERVICES COUNSELOR): Assessment: Hx of major depressive disorder and [...] anxiety Assessment & Plan (03/04/2020 12:58 PM REHABILITATION SERVICES COUNSELOR): Assessment: Hx of major depressive disorder and [...] anxiety Assessment & Plan (03/03/2020 3:16 PM REHABILITATION SERVICES COUNSELOR): Assessment: Hx of major depressive disorder and [...] anxiety Assessment & Plan (03/01/2020 12:04 PM REHABILITATION SERVICES COUNSELOR): Assessment: Hx of major depressive disorder and [...] anxiety Assessment & Plan (02/29/2020 12:53 PM REHABILITATION SERVICES COUNSELOR): Assessment: Hx of major depressive disorder and [...] anxiety Assessment & Plan (02/28/2020 9:22 AM REHABILITATION SERVICES COUNSELOR): Assessment: Hx of major depressive disorder and [...] anxiety Assessment & Plan (02/27/2020 10:27 AM REHABILITATION SERVICES COUNSELOR): Assessment: Hx of major depressive disorder and [...] negative Assessment & Plan (02/26/2020 11:12 AM REHABILITATION SERVICES COUNSELOR): Assessment: Hx of major depressive disorder and [...] pending Assessment & Plan (02/25/2020 9:33 AM REHABILITATION SERVICES COUNSELOR): Assessment: Hx of major depressive disorder and [...] pending Assessment & Plan (02/24/2020 6:51 AM REHABILITATION SERVICES COUNSELOR): Assessment: Hx of major depressive disorder and [...] pending Assessment & Plan (02/23/2020 10:19 AM REHABILITATION SERVICES COUNSELOR): Assessment: Hx of major depressive disorder and [...] pending Assessment & Plan (02/22/2020 11:07 AM REHABILITATION SERVICES COUNSELOR): Assessment: Hx of major depressive disorder and [...] QHS Assessment & Plan (02/21/2020 10:54 AM REHABILITATION SERVICES COUNSELOR): Assessment: History of major depressive disorder and [...] tablet Assessment & Plan (02/20/2020 11:33 AM REHABILITATION SERVICES COUNSELOR): Assessment: History of major depressive disorder and [...] tablet Assessment & Plan (02/19/2020 3:05 PM REHABILITATION SERVICES COUNSELOR): Assessment: History of major depressive disorder and [...] tablet Assessment & Plan (02/18/2020 10:13 AM REHABILITATION SERVICES COUNSELOR): Assessment: History of major depressive disorder and [...] tablet Assessment & Plan (02/17/2020 12:26 PM REHABILITATION SERVICES COUNSELOR): Assessment: History of major depressive disorder and [...] tablet Assessment & Plan (02/16/2020 1:14 PM REHABILITATION SERVICES COUNSELOR): Assessment: History of major depressive disorder and [...] tablet Assessment & Plan (02/15/2020 12:31 PM REHABILITATION SERVICES COUNSELOR): Assessment: History of major depressive disorder and [...] tablet Assessment & Plan (02/14/2020 2:24 PM REHABILITATION SERVICES COUNSELOR): Assessment: History of major depressive disorder and [...] tablet Assessment & Plan (02/13/2020 12:00 PM REHABILITATION SERVICES COUNSELOR): Assessment: History of major depressive disorder and [...] tablet Assessment & Plan (02/12/2020 11:20 AM REHABILITATION SERVICES COUNSELOR): Assessment: History of major depressive disorder and [...] tablet Assessment & Plan (02/11/2020 11:54 AM REHABILITATION SERVICES COUNSELOR): Assessment: History of major depressive disorder and [...] tablet Assessment & Plan (02/10/2020 12:09 PM REHABILITATION SERVICES COUNSELOR): Assessment: History of major depressive disorder and [...] tablet Assessment & Plan (02/09/2020 11:50 AM REHABILITATION SERVICES COUNSELOR): Assessment: History of major depressive disorder and [...] [place] Assessment & Plan (02/08/2020 12:54 PM REHABILITATION SERVICES COUNSELOR): Assessment: History of major depressive disorder and [...] [place] Assessment & Plan (02/07/2020 11:47 AM REHABILITATION SERVICES COUNSELOR): Assessment: History of major depressive disorder and [...] [place] Assessment & Plan (02/06/2020 8:12 AM REHABILITATION SERVICES COUNSELOR): Assessment: History of major depressive disorder and [...] [place] Assessment & Plan (02/05/2020 9:12 AM REHABILITATION SERVICES COUNSELOR): Assessment: History of major depressive disorder and [...] [place] Assessment & Plan (02/04/2020 12:43 PM REHABILITATION SERVICES COUNSELOR): Assessment: History of major depressive disorder and [...] [place] Assessment & Plan (02/03/2020 2:28 PM REHABILITATION SERVICES COUNSELOR): Assessment: History of major depressive disorder and [...] [place] Assessment & Plan (02/02/2020 4:02 PM REHABILITATION SERVICES COUNSELOR): Assessment: History of major depressive disorder and [...] [place] Assessment & Plan (02/01/2020 12:12 PM REHABILITATION SERVICES COUNSELOR): Assessment: History of major depressive disorder and [...] [place] Assessment & Plan (01/31/2020 1:04 PM REHABILITATION SERVICES COUNSELOR): Assessment: History of major depressive disorder and [...] [place] Assessment & Plan (01/30/2020 10:30 AM REHABILITATION SERVICES COUNSELOR): Assessment: History of major depressive disorder and [...] [place] Assessment & Plan (01/29/2020 9:40 PM REHABILITATION SERVICES COUNSELOR): Assessment: History of major depressive disorder and [...] [place] Assessment & Plan (01/28/2020 11:59 AM REHABILITATION SERVICES COUNSELOR): Assessment: History of major depressive disorder and [...] lunch Assessment & Plan (01/27/2020 3:57 PM REHABILITATION SERVICES COUNSELOR): Assessment: History of major depressive disorder and [...] lunch Assessment & Plan (01/26/2020 6:01 PM REHABILITATION SERVICES COUNSELOR): Assessment: History of major depressive disorder and [...] [place] Assessment & Plan (01/25/2020 2:56 PM REHABILITATION SERVICES COUNSELOR): Assessment: History of major depressive disorder and [...] PO. Assessment & Plan (01/24/2020 8:11 AM REHABILITATION SERVICES COUNSELOR): Assessment: History of major depressive disorder and [...] (02/22/20) Assessment & Plan (01/23/2020 7:09 AM REHABILITATION SERVICES COUNSELOR): Assessment: History of major depressive disorder and [...] (02/22/20) Assessment & Plan (01/22/2020 7:52 AM REHABILITATION SERVICES COUNSELOR): Assessment: History of major depressive disorder and [...] (02/22/20) Assessment & Plan (01/21/2020 7:40 AM REHABILITATION SERVICES COUNSELOR): Assessment: History of major depressive disorder and [...] (02/22/20) Assessment & Plan (01/20/2020 7:36 AM REHABILITATION SERVICES COUNSELOR): Assessment: History of major depressive disorder and [...] (02/22/20) Assessment & Plan (01/19/2020 7:22 AM REHABILITATION SERVICES COUNSELOR): Assessment: History of major depressive disorder and [...] (02/22/20) Assessment & Plan (01/18/2020 4:35 PM REHABILITATION SERVICES COUNSELOR): Assessment: History of major depressive disorder and [...] range. Assessment & Plan (04/08/2020 1:31 PM REHABILITATION SERVICES COUNSELOR): Assessment: Malnutrition is secondary to ARFID, SMA [...] PT Assessment & Plan (04/07/2020 2:52 PM REHABILITATION SERVICES COUNSELOR): Assessment: Malnutrition is secondary to ARFID, SMA [...] PT Assessment & Plan (04/07/2020 6:44 PM REHABILITATION SERVICES COUNSELOR): Assessment: Marlee is a 19 year old [...] follow up with adolescent medicine on 04/18, [facility] [address] on 05/02, and and scheduling Psych intake visit SOCIAL: - General medicine team spoke with and updated mother on 04/06 LABS: daily urine spec gravity, BMP/Mg/Phos Q / Assessment & Plan (04/06/2020 6:45 PM REHABILITATION SERVICES COUNSELOR): Assessment: Marlee is a 19 year old [...] / Assessment & Plan (04/05/2020 3:22 PM REHABILITATION SERVICES COUNSELOR): Assessment: Malnutrition is secondary to ARFID, SMA [...] PT Assessment & Plan (04/05/2020 10:49 AM REHABILITATION SERVICES COUNSELOR): Assessment: Marlee is a 19 year old [...] T/ Assessment & Plan (04/04/2020 3:59 PM REHABILITATION SERVICES COUNSELOR): Assessment: Malnutrition is secondary to ARFID, SMA [...] daily Assessment & Plan (04/04/2020 10:21 AM REHABILITATION SERVICES COUNSELOR): Assessment: Marlee is a 19 year old [...] / Assessment & Plan (04/03/2020 12:59 PM REHABILITATION SERVICES COUNSELOR): Assessment: Marlee is a 19 year old [...] daily Assessment & Plan (04/02/2020 4:19 PM REHABILITATION SERVICES COUNSELOR): Assessment: Marlee is a 19 year old [...] daily Assessment & Plan (04/01/2020 11:55 AM REHABILITATION SERVICES COUNSELOR): Assessment: Malnutrition is secondary to ARFID and [...] daily Assessment & Plan (04/01/2020 11:15 AM REHABILITATION SERVICES COUNSELOR): Assessment: Marlee is a 19 year old [...] daily Assessment & Plan (03/31/2020 12:05 PM REHABILITATION SERVICES COUNSELOR): Assessment: Malnutrition is secondary to ARFID and [...] daily Assessment & Plan (03/31/2020 10:06 AM REHABILITATION SERVICES COUNSELOR): Assessment: Marlee is a 19 year old [...] daily Assessment & Plan (03/30/2020 2:24 PM REHABILITATION SERVICES COUNSELOR): Assessment: Marlee is a 19 year old [...] daily Assessment & Plan (03/29/2020 10:40 AM REHABILITATION SERVICES COUNSELOR): Assessment: Marlee is a 19 year old [...] allowed in room. May have water from [employer] cup. Oral fluids limited to 250 mL [...] daily Assessment & Plan (03/28/2020 12:29 PM REHABILITATION SERVICES COUNSELOR): Assessment: Marlee is a 19 year old [...] daily Assessment & Plan (03/27/2020 10:34 AM REHABILITATION SERVICES COUNSELOR): Assessment: Marlee is a 19 year old [...] night 03/27: Increase to 50 mL/hr tonight. [facility] is aware of increase but did [...] daily Assessment & Plan (03/26/2020 11:20 AM REHABILITATION SERVICES COUNSELOR): Assessment: Marlee is a 19 year old [...] daily Assessment & Plan (03/25/2020 12:30 PM REHABILITATION SERVICES COUNSELOR): Assessment: Marlee is a 19 year old [...] daily Assessment & Plan (03/24/2020 5:02 PM REHABILITATION SERVICES COUNSELOR): Assessment: Malnutrition is secondary to ARFID and [...] anxiety Assessment & Plan (03/24/2020 11:19 AM REHABILITATION SERVICES COUNSELOR): Assessment: Marlee is a 19 year old [...] allowed in room. May have water from [employer] cup. - May take shower while sitting [...] daily Assessment & Plan (03/23/2020 12:20 PM REHABILITATION SERVICES COUNSELOR): Assessment: Marlee is a 19 year old [...] daily Assessment & Plan (03/22/2020 12:20 PM REHABILITATION SERVICES COUNSELOR): Assessment: Marlee is a 19 year old [...] daily Assessment & Plan (03/21/2020 3:10 PM REHABILITATION SERVICES COUNSELOR): Assessment: Marlee is a 19 year old [...] 03/15/2020. Assessment & Plan (03/20/2020 10:32 AM REHABILITATION SERVICES COUNSELOR): Assessment: Marlee is a 19 year old [...] 03/15/2020. Assessment & Plan (03/19/2020 10:37 AM REHABILITATION SERVICES COUNSELOR): Assessment: Marlee is a 19 year old [...] 03/15/2020. Assessment & Plan (03/18/2020 1:00 PM REHABILITATION SERVICES COUNSELOR): Assessment: Marlee is a 19 year old [...] 03/15/2020. Assessment & Plan (03/17/2020 10:36 AM REHABILITATION SERVICES COUNSELOR): Assessment: Marlee is a 19 year old [...] 03/15/2020. Assessment & Plan (03/16/2020 2:10 PM REHABILITATION SERVICES COUNSELOR): Assessment: Marlee is a 19 year old [...] 03/15/2020. Assessment & Plan (03/15/2020 11:10 AM REHABILITATION SERVICES COUNSELOR): Assessment: Marlee is a 19 year old [...] 03/15/2020 Assessment & Plan (03/14/2020 9:53 AM REHABILITATION SERVICES COUNSELOR): Assessment: Marlee is a 19 year old [...] 03/15/2020 Assessment & Plan (03/13/2020 9:39 AM REHABILITATION SERVICES COUNSELOR): Assessment: Marlee is a 19 year old [...] week Assessment & Plan (03/12/2020 11:35 AM REHABILITATION SERVICES COUNSELOR): Assessment: Marlee is a 19 year old [...] week Assessment & Plan (03/11/2020 12:43 PM REHABILITATION SERVICES COUNSELOR): Assessment: Marlee is a 19 year old [...] week Assessment & Plan (03/10/2020 9:12 AM REHABILITATION SERVICES COUNSELOR): Assessment: Marlee is a 19 year old [...] in Assessment & Plan (03/09/2020 10:22 AM REHABILITATION SERVICES COUNSELOR): Assessment: Marlee is a 19 year old [...] in Assessment & Plan (03/08/2020 10:52 AM REHABILITATION SERVICES COUNSELOR): Assessment: Marlee is a 19 year old [...] in Assessment & Plan (03/07/2020 9:18 AM REHABILITATION SERVICES COUNSELOR): Assessment: Marlee is a 19 year old [...] in Assessment & Plan (03/06/2020 10:09 AM REHABILITATION SERVICES COUNSELOR): Assessment: Marlee is a 19 year old [...] in Assessment & Plan (03/05/2020 9:56 AM REHABILITATION SERVICES COUNSELOR): Assessment: Marlee is a 19 year old [...] in Assessment & Plan (03/04/2020 12:58 PM REHABILITATION SERVICES COUNSELOR): Assessment: Marlee is a 19 year old [...] A/P Assessment & Plan (03/03/2020 3:15 PM REHABILITATION SERVICES COUNSELOR): Assessment: Marlee is a 19 year old [...] A/P Assessment & Plan (03/02/2020 12:06 PM REHABILITATION SERVICES COUNSELOR): Assessment: Marlee is a 19 year old [...] A/P Assessment & Plan (03/01/2020 12:05 PM REHABILITATION SERVICES COUNSELOR): Assessment: Marlee is a 19 year old [...] A/P Assessment & Plan (02/29/2020 12:52 PM REHABILITATION SERVICES COUNSELOR): Assessment: Marlee is a 19 year old [...] A/P Assessment & Plan (02/28/2020 9:12 AM REHABILITATION SERVICES COUNSELOR): Assessment: Marlee is a 19 year old [...] A/P Assessment & Plan (02/27/2020 10:03 AM REHABILITATION SERVICES COUNSELOR): Assessment: Marlee is a 19 year old [...] A/P Assessment & Plan (02/26/2020 11:12 AM REHABILITATION SERVICES COUNSELOR): Assessment: Marlee is a 19 year old [...] A/P Assessment & Plan (02/25/2020 9:32 AM REHABILITATION SERVICES COUNSELOR): Assessment: Marlee is a 19 year old [...] A/P Assessment & Plan (02/24/2020 10:42 AM REHABILITATION SERVICES COUNSELOR): Assessment: Marlee is a 19 year old [...] A/P Assessment & Plan (02/23/2020 10:22 AM REHABILITATION SERVICES COUNSELOR): Assessment: Marlee is a 19 year old [...] A/P Assessment & Plan (02/22/2020 11:25 AM REHABILITATION SERVICES COUNSELOR): Assessment: Marlee is a 19 year old [...] A/P Assessment & Plan (02/21/2020 10:54 AM REHABILITATION SERVICES COUNSELOR): Assessment: Marlee is a 19 year old [...] A/P Assessment & Plan (02/20/2020 11:31 AM REHABILITATION SERVICES COUNSELOR): Assessment: Marlee is a 19 year old [...] A/P Assessment & Plan (02/19/2020 3:04 PM REHABILITATION SERVICES COUNSELOR): Assessment: Marlee is a 19 year old [...] TPN. Assessment & Plan (02/18/2020 10:14 AM REHABILITATION SERVICES COUNSELOR): Assessment: Marlee is a 19 year old [...] Sat) Assessment & Plan (02/17/2020 12:30 PM REHABILITATION SERVICES COUNSELOR): Assessment: Marlee is a 19 year old [...] pending Assessment & Plan (02/16/2020 2:29 PM REHABILITATION SERVICES COUNSELOR): Assessment: Marlee is a 19 year old [...] pending Assessment & Plan (02/15/2020 12:33 PM REHABILITATION SERVICES COUNSELOR): Assessment: Marlee is a 19 year old [...] pending Assessment & Plan (02/14/2020 2:23 PM REHABILITATION SERVICES COUNSELOR): Assessment: Marlee is a 19 year old [...] pending Assessment & Plan (02/13/2020 11:59 AM REHABILITATION SERVICES COUNSELOR): Assessment: Marlee is a 19 year old [...] pending Assessment & Plan (02/12/2020 11:49 AM REHABILITATION SERVICES COUNSELOR): Assessment: Marlee is a 19 year old [...] recs Assessment & Plan (02/11/2020 11:56 AM REHABILITATION SERVICES COUNSELOR): Assessment: Marlee is a 19 year old [...] recs Assessment & Plan (02/10/2020 12:11 PM REHABILITATION SERVICES COUNSELOR): Assessment: Marlee is a 19 year old [...] SG) Assessment & Plan (02/09/2020 11:49 AM REHABILITATION SERVICES COUNSELOR): Assessment: Marlee is a 19 year old [...] SG) Assessment & Plan (02/08/2020 12:54 PM REHABILITATION SERVICES COUNSELOR): Assessment: Marlee is a 19 year old [...] recs. Assessment & Plan (02/07/2020 12:06 PM REHABILITATION SERVICES COUNSELOR): Assessment: Marlee is a 19 year old [...] SG) Assessment & Plan (02/06/2020 8:12 AM REHABILITATION SERVICES COUNSELOR): Assessment: Marlee is a 19 year old [...] SG) Assessment & Plan (02/05/2020 9:12 AM REHABILITATION SERVICES COUNSELOR): Assessment: Marlee is a 19 year old [...] TG) Assessment & Plan (02/04/2020 12:52 PM REHABILITATION SERVICES COUNSELOR): Assessment: Marlee is a 19 year old [...] TG) Assessment & Plan (02/03/2020 2:38 PM REHABILITATION SERVICES COUNSELOR): Assessment: Marlee is a 19 year old [...] TG) Assessment & Plan (02/02/2020 4:02 PM REHABILITATION SERVICES COUNSELOR): Assessment: Marlee is a 19 year old [...] QOD Assessment & Plan (02/01/2020 12:08 PM REHABILITATION SERVICES COUNSELOR): Assessment: Marlee is a 19 year old [...] RBCs. Assessment & Plan (01/31/2020 1:05 PM REHABILITATION SERVICES COUNSELOR): Assessment: Marlee is a 19 year old [...] hematuria Assessment & Plan (01/30/2020 10:30 AM REHABILITATION SERVICES COUNSELOR): Assessment: Marlee is a 19 year old [...] 10.2 Assessment & Plan (01/29/2020 9:39 PM REHABILITATION SERVICES COUNSELOR): Assessment: Marlee is a 19 year old [...] syndrome Assessment & Plan (01/28/2020 11:59 AM REHABILITATION SERVICES COUNSELOR): Assessment: Marlee is a 19 year old [...] QOD Assessment & Plan (01/27/2020 3:59 PM REHABILITATION SERVICES COUNSELOR): Assessment: Marlee is a 19 year old [...] QOD Assessment & Plan (01/26/2020 5:14 PM REHABILITATION SERVICES COUNSELOR): Assessment: Marlee is a 19 year old [...] QOD Assessment & Plan (01/25/2020 2:58 PM REHABILITATION SERVICES COUNSELOR): Assessment: Marlee is a 19 year old [...] QOD Assessment & Plan (01/24/2020 11:54 AM REHABILITATION SERVICES COUNSELOR): Assessment: Marlee is a 19 year old [...] orthostatics Assessment & Plan (01/23/2020 7:09 AM REHABILITATION SERVICES COUNSELOR): Assessment: Marlee is a 19 year old [...] orthostatics Assessment & Plan (01/22/2020 4:25 PM REHABILITATION SERVICES COUNSELOR): Assessment: Marlee is a 19 year old [...] orthostatics Assessment & Plan (01/21/2020 8:15 AM REHABILITATION SERVICES COUNSELOR): Assessment: Marlee Chavez is a 19 year [...] orthostatics Assessment & Plan (01/20/2020 7:36 AM REHABILITATION SERVICES COUNSELOR): Assessment: Marlee Chavez is a 19 year [...] orthostatics Assessment & Plan (01/19/2020 7:20 AM REHABILITATION SERVICES COUNSELOR): Assessment: Mralee Chavez is a 19 year old with [...] orthostatics Assessment & Plan (01/18/2020 4:30 PM REHABILITATION SERVICES COUNSELOR): Assessment: Marlee Chavez is a 19 year [...] consult Assessment & Plan (03/27/2020 10:35 AM REHABILITATION SERVICES COUNSELOR): Assessment: Marlee is admitted on ED Protocol for severe malnutrition. Following feeding plan per Adolescent Medicine and Nutrition. Plan: - see plan under ARFID problem Assessment & Plan (03/26/2020 11:20 AM REHABILITATION SERVICES COUNSELOR): Assessment: Marlee is admitted on ED Protocol for severe malnutrition. Following feeding plan per Adolescent Medicine and Nutrition. Plan: - see plan under ARFID problem Assessment & Plan (03/24/2020 11:19 AM REHABILITATION SERVICES COUNSELOR): Assessment: Marlee is admitted on ED Protocol for severe malnutrition. Following feeding plan per Adolescent Medicine and Nutrition. Plan: - see plan under ARFID problem Assessment & Plan (03/23/2020 9:00 AM REHABILITATION SERVICES COUNSELOR): Assessment: Marlee is admitted on ED Protocol for severe malnutrition. Following feeding plan per Adolescent Medicine and Nutrition. Plan: - see plan under ARFID problem Assessment & Plan (03/22/2020 12:21 PM REHABILITATION SERVICES COUNSELOR): Assessment: Marlee is admitted on ED Protocol for severe malnutrition. Following feeding plan per Adolescent Medicine and Nutrition. Plan: - see plan under ARFID problem Assessment & Plan (03/17/2020 4:26 PM REHABILITATION SERVICES COUNSELOR): Assessment: Malnutrition is secondary to ARFID and [...] anxiety Assessment & Plan (03/15/2020 11:10 AM REHABILITATION SERVICES COUNSELOR): Assessment: Marlee is admitted on ED Protocol for severe malnutrition. Following feeding plan per Adolescent Medicine and Nutrition. Plan: - see plan under ARFID problem Assessment & Plan (03/10/2020 11:17 AM REHABILITATION SERVICES COUNSELOR): Assessment: Malnutrition is secondary to ARFID and [...] needed Assessment & Plan (03/06/2020 10:09 AM REHABILITATION SERVICES COUNSELOR): Assessment: Marlee is admitted on ED Protocol for severe malnutrition. Following feeding plan per Adolescent Medicine and Nutrition. Plan: - see plan under ARFID problem Assessment & Plan (03/04/2020 1:41 PM REHABILITATION SERVICES COUNSELOR): Assessment: Marlee is admitted on ED Protocol for severe malnutrition. Following feeding plan per Adolescent Medicine and Nutrition. Plan: - see plan under ARFID problem Assessment & Plan (03/04/2020 11:50 AM REHABILITATION SERVICES COUNSELOR): Assessment: Marlee is admitted on ED Protocol for severe malnutrition. Following feeding plan per Adolescent Medicine and Nutrition. Plan: - see plan under ARFID problem Assessment & Plan (03/03/2020 3:53 PM REHABILITATION SERVICES COUNSELOR): Assessment: Malnutrition is secondary to ARFID and [...] dad. Assessment & Plan (02/27/2020 9:57 AM REHABILITATION SERVICES COUNSELOR): Assessment: Marlee is admitted on ED Protocol for severe malnutrition. Following feeding plan per Adolescent Medicine and Nutrition. Plan: - see plan under ARFID problem Assessment & Plan (02/26/2020 9:59 AM REHABILITATION SERVICES COUNSELOR): Assessment: Malnutrition is secondary to ARFID and [...] plan. Assessment & Plan (02/25/2020 5:48 PM REHABILITATION SERVICES COUNSELOR): Assessment: Malnutrition is secondary to ARFID and [...] plan. Assessment & Plan (02/18/2020 4:54 PM REHABILITATION SERVICES COUNSELOR): Assessment: Malnutrition is secondary to ARFID and [...] daily Assessment & Plan (02/11/2020 11:47 AM REHABILITATION SERVICES COUNSELOR): Assessment: Malnutrition is secondary to ARFID and [...] BID Assessment & Plan (02/09/2020 11:50 AM REHABILITATION SERVICES COUNSELOR): Assessment: Marlee is admitted on ED Protocol for severe malnutrition. Following feeding plan per Adolescent Medicine and Nutrition. Plan: - see plan under ARFID problem Assessment & Plan (02/07/2020 11:47 AM REHABILITATION SERVICES COUNSELOR): Assessment: Marlee is admitted on ED Protocol for severe malnutrition. Following feeding plan per Adolescent Medicine and Nutrition. Plan: - see plan under ARFID problem Assessment & Plan (02/06/2020 8:12 AM REHABILITATION SERVICES COUNSELOR): Assessment: Marlee is admitted on ED Protocol for severe malnutrition. Following feeding plan per Adolescent Medicine and Nutrition. Plan: - see plan under ARFID problem Assessment & Plan (02/05/2020 9:01 AM REHABILITATION SERVICES COUNSELOR): Assessment: Marlee is admitted on ED Protocol for severe malnutrition. Following feeding plan per Adolescent Medicine and Nutrition. Plan: - see plan under ARFID problem Assessment & Plan (02/04/2020 12:34 PM REHABILITATION SERVICES COUNSELOR): Assessment: Marlee is admitted on ED Protocol for severe malnutrition. Following feeding plan per Adolescent Medicine and Nutrition. Plan: - see plan under ARFID problem Assessment & Plan (02/03/2020 2:28 PM REHABILITATION SERVICES COUNSELOR): Assessment: Marlee is admitted on ED Protocol for severe malnutrition. Following feeding plan per Adolescent Medicine and Nutrition. Plan: - see plan under ARFID problem Assessment & Plan (02/02/2020 3:57 PM REHABILITATION SERVICES COUNSELOR): Assessment: Marlee is admitted on ED Protocol for severe malnutrition. Following feeding plan per Adolescent Medicine and Nutrition. Plan: - see plan under ARFID problem Assessment & Plan (02/01/2020 12:10 PM REHABILITATION SERVICES COUNSELOR): Assessment: Marlee is admitted on ED Protocol for severe malnutrition. Following feeding plan per Adolescent Medicine and Nutrition. Plan: - see plan under ARFID problem Assessment & Plan (01/31/2020 1:04 PM REHABILITATION SERVICES COUNSELOR): Assessment: Marlee is admitted on ED Protocol for severe malnutrition. Following feeding plan per Adolescent Medicine and Nutrition. Plan: - see plan under ARFID problem Assessment & Plan (01/30/2020 10:28 AM REHABILITATION SERVICES COUNSELOR): Assessment: Marlee is admitted on ED Protocol for severe malnutrition. Following feeding plan per Adolescent Medicine and Nutrition. Plan: - see plan under ARFID problem Assessment & Plan (01/28/2020 4:29 PM REHABILITATION SERVICES COUNSELOR): Assessment: Malnutrition is secondary to ARFID and [...] BID Assessment & Plan (01/24/2020 11:54 AM REHABILITATION SERVICES COUNSELOR): Assessment: Marlee is admitted on ED Protocol for severe malnutrition. Following feeding plan per Adolescent Medicine and Nutrition. Plan: - see plan under ARFID problem Assessment & Plan (01/23/2020 7:09 AM REHABILITATION SERVICES COUNSELOR): Assessment: Marlee is admitted on ED Protocol for severe malnutrition. Following feeding plan per Adolescent Medicine and Nutrition. Plan: - see plan under ARFID problem Assessment & Plan (01/22/2020 9:48 AM REHABILITATION SERVICES COUNSELOR): Assessment: Malnutrition is secondary to ARFID and [...] () Assessment & Plan (01/22/2020 7:52 AM REHABILITATION SERVICES COUNSELOR): Assessment: Marlee is admitted on ED Protocol for severe malnutrition. Following feeding plan per Adolescent Medicine and Nutrition. Plan: - see plan under ARFID problem Assessment & Plan (01/21/2020 10:33 AM REHABILITATION SERVICES COUNSELOR): Assessment: Malnutrition is secondary to ARFID and [...] () Assessment & Plan (01/21/2020 7:40 AM REHABILITATION SERVICES COUNSELOR): Assessment: Marlee is admitted on ED Protocol for severe malnutrition. Following feeding plan per Adolescent Medicine and Nutrition. Plan: - see plan under ARFID problem Assessment & Plan (01/20/2020 7:36 AM REHABILITATION SERVICES COUNSELOR): Assessment: Marlee is admitted on ED Protocol for severe malnutrition. Following feeding plan per Adolescent Medicine and Nutrition. Plan: - see plan under ARFID problem Assessment & Plan (01/19/2020 7:22 AM REHABILITATION SERVICES COUNSELOR): Assessment: Marlee is admitted on ED Protocol for severe malnutrition. Following feeding plan per Adolescent Medicine and Nutrition. Plan: - see plan under ARFID problem Assessment & Plan (01/18/2020 4:25 PM REHABILITATION SERVICES COUNSELOR): Assessment: Marlee Chavez is a 19 year [...] orthostatics Assessment & Plan (01/17/2020 12:38 PM REHABILITATION SERVICES COUNSELOR): Assessment: Marlee Chavez is a 19 year [...] anxiety Assessment & Plan (01/16/2020 1:41 PM REHABILITATION SERVICES COUNSELOR): Assessment: Marlee Chavez is a 19 year [...] anxiety Assessment & Plan (01/15/2020 8:49 PM REHABILITATION SERVICES COUNSELOR): Assessment: Malnutrition is secondary to ARFID and [...] counseling. Assessment & Plan (01/15/2020 11:57 AM REHABILITATION SERVICES COUNSELOR): Assessment: Marlee Chavez is a 19 year [...] anxiety Assessment & Plan (01/14/2020 1:00 PM REHABILITATION SERVICES COUNSELOR): Assessment: Malnutrition is secondary to ARFID and [...] () Assessment & Plan (01/14/2020 9:54 AM REHABILITATION SERVICES COUNSELOR): Assessment: Marlee Chavez is a 19 year [...] anxiety Assessment & Plan (01/13/2020 2:34 PM REHABILITATION SERVICES COUNSELOR): Assessment: Marlee Chavez is a 19 year [...] anxiety Assessment & Plan (01/13/2020 12:01 PM REHABILITATION SERVICES COUNSELOR): Moderate protein-calorie malnutrition Assessment: Marlee Chavez is [...] thereafter Assessment & Plan (01/12/2020 3:40 PM REHABILITATION SERVICES COUNSELOR): Moderate protein-calorie malnutrition Assessment: Marlee Chavez is [...] chart) Assessment & Plan (01/12/2020 1:25 PM REHABILITATION SERVICES COUNSELOR): Assessment: Marlee Chavez is a 19 year [...] anxiety Assessment & Plan (01/11/2020 11:43 AM REHABILITATION SERVICES COUNSELOR): Assessment: Marlee Chavez is a 19 year [...] cysts Assessment & Plan (01/10/2020 9:32 AM REHABILITATION SERVICES COUNSELOR): Assessment: Marlee Chavez is a 19 year [...] cysts Assessment & Plan (01/09/2020 11:08 AM REHABILITATION SERVICES COUNSELOR): Assessment: Marlee Chavez is a 19 year [...] cysts Assessment & Plan (01/08/2020 1:32 PM REHABILITATION SERVICES COUNSELOR): Assessment: Marlee Chavez is a 19 year [...] cysts Assessment & Plan (01/07/2020 2:52 PM REHABILITATION SERVICES COUNSELOR): Assessment: Marlee Chavez is a 19 year [...] cysts Assessment & Plan (01/06/2020 11:27 AM REHABILITATION SERVICES COUNSELOR): Assessment: Marlee Chavez is a 19 year [...] cysts Assessment & Plan (01/05/2020 3:49 PM REHABILITATION SERVICES COUNSELOR): Assessment: Marlee Chavez is a 19 year [...] cysts Assessment & Plan (01/04/2020 1:53 PM REHABILITATION SERVICES COUNSELOR): Assessment: Marlee Chavez is a 19 year [...] cysts Assessment & Plan (01/03/2020 12:34 AM REHABILITATION SERVICES COUNSELOR): Assessment: Marlee Chavez is a 19 year [...] 03/18/2023 Assessment & Plan (01/24/2022 5:04 PM REHABILITATION SERVICES COUNSELOR): Assessment: Marlee Chavez is a 20 year [...] gabapentin Assessment & Plan (01/23/2022 6:56 PM REHABILITATION SERVICES COUNSELOR): Assessment: Marlee Chavez is a 20 year [...] pain Assessment & Plan (01/08/2021 3:05 PM REHABILITATION SERVICES COUNSELOR): Assessment: Patient is an 20 year old [...] I&Os Assessment & Plan (01/07/2021 4:52 PM REHABILITATION SERVICES COUNSELOR): Assessment: Patient is an 20 year old [...] it Assessment & Plan (01/06/2021 6:00 PM REHABILITATION SERVICES COUNSELOR): Assessment: Patient is an 20 year old [...] I&Os Assessment & Plan (01/05/2021 1:27 PM REHABILITATION SERVICES COUNSELOR): Assessment: Patient is an 20 year old [...] I&Os Assessment & Plan (01/04/2021 9:17 PM REHABILITATION SERVICES COUNSELOR): Assessment: Patient is an 20 year old [...] I&Os Assessment & Plan (01/03/2021 8:43 PM REHABILITATION SERVICES COUNSELOR): Assessment: Patient is an 20 year old [...] wearing condom. 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 Plan: -urine test today -GC, chlamydia, trichomonas testing Assessment & Plan (05/24/2020 2:43 PM CDT): Will get urine Hcg and STI testing. Mom is aware and Marlee is ok with us communicating results to her mother. Purging 03/24/2020 05/24/2020 Assessment & Plan (04/05/2020 3:23 PM REHABILITATION SERVICES COUNSELOR): Assessment: Has been drinking excessive amounts of water and putting her fingers in her mouth to induce vomiting. No recorded emesis since 03/25. Plan: Will limit access to water to 250ml at a time. May only bathe once per day after she has taken her meds, had breakfast and lunch. Assessment & Plan (04/04/2020 12:58 PM REHABILITATION SERVICES COUNSELOR): Assessment: Has been drinking excessive amounts of water and putting her fingers in her mouth to induce vomiting. No recorded emesis since 03/25. Plan: Will limit access to water to 250ml at a time. May only bathe once per day after she has taken her meds, had breakfast and lunch. Assessment & Plan (04/01/2020 11:55 AM REHABILITATION SERVICES COUNSELOR): Assessment: Has been drinking excessive amounts of water and putting her fingers in her mouth to induce vomiting. No recorded emesis since 03/25. Plan: Will limit access to water to 250ml at a time. May only bathe once per day after she has taken her meds, had breakfast and lunch. Assessment & Plan (03/24/2020 4:53 PM REHABILITATION SERVICES COUNSELOR): Assessment: Has been drinking excessive amounts of water and putting her fingers in her mouth to induce vomiting. Plan: Will limit access to water to 250ml at a time. May only bathe once per day after she has taken her meds, had breakfast and lunch. Ovarian cyst 01/12/2020 03/19/2020 Assessment & Plan (03/15/2020 11:10 AM REHABILITATION SERVICES COUNSELOR): Assessment: on ultrasound on R Plan: -Radiology recommended repeat imaging in 6 months for ovarian cysts Assessment & Plan (03/04/2020 1:41 PM REHABILITATION SERVICES COUNSELOR): Assessment: on ultrasound on R Plan: -Radiology recommended repeat imaging in 6 months for ovarian cysts Assessment & Plan (03/04/2020 11:50 AM REHABILITATION SERVICES COUNSELOR): Assessment: on ultrasound on R Plan: -Radiology recommended repeat imaging in 6 months for ovarian cysts Assessment & Plan (02/27/2020 9:58 AM REHABILITATION SERVICES COUNSELOR): Assessment: on ultrasound on R Plan: -Radiology recommended repeat imaging in 6 months for ovarian cysts Assessment & Plan (01/28/2020 11:59 AM REHABILITATION SERVICES COUNSELOR): Assessment: on ultrasound on R Plan: -Radiology recommended repeat imaging in 6 months for ovarian cysts Assessment & Plan (01/27/2020 3:52 PM REHABILITATION SERVICES COUNSELOR): Assessment: on ultrasound on R Plan: -Radiology recommended repeat imaging in 6 months for ovarian cysts Assessment & Plan (01/26/2020 6:01 PM REHABILITATION SERVICES COUNSELOR): Assessment: on ultrasound on R Plan: -Radiology recommended repeat imaging in 6 months for ovarian cysts Assessment & Plan (01/13/2020 2:33 PM REHABILITATION SERVICES COUNSELOR): Assessment: on ultrasound on R Plan: -Radiology recommended repeat imaging in 6 months for ovarian cysts Assessment & Plan (01/12/2020 1:26 PM REHABILITATION SERVICES COUNSELOR): Assessment: on ultrasound on R Plan: -Radiology recommended repeat imaging in 6 months for ovarian cysts Self-injurious behavior 03/25/2017 04/04/2020 Major depressive disorder, severe 03/21/2017 05/24/2020 Intractable vomiting 020 Encounters * This document contains information received from the source organization and may not represent a complete record from that organization. Date Type Department Care Team Description 07/07/2024 Travel from Last 3 Months Immunizations Immunization Administration Dates Next Due [facility] primary monoval ent 12+ yr 0.3mL [...] Recorded Patient Health Questionnaire-2 Score 0 07/07/2024 [facility] [place] [facility] - Occupational Stress [...] place to sleep or slept in a nursing home (including now)? No 04/24/2023 Comments No Sex and Gender Information Value Date Recorded Sex Assigned at Not on file Legal Sex Female 6:25 PM REHABILITATION SERVICES COUNSELOR Gender Identity Not on file Sexual Orientation [...] st Contact Info) Description 01/20/2025 8:20 AM REHABILITATION SERVICES COUNSELOR Office Visit [facility] - Family Medicine [address] [place] [address] Ronel Thornton DO [address] [place] [id number] Health Maintenance Due Date Last Done [...] Procedure Name Priority Date/Time Associated Diagnosis Comments PAP CERVICAL CANCER SCREEN CT/NG/TV APT Routine [...] Relevant to Health Maintenance Results * (ABNORMAL) PAP CERVICAL CANCER SCREEN CT/NG/TV APT (11/29/2023 11:06 AM CDT) Age Gdln ACOG Testing 21-29 [facility] ACCOUNT BILL Comment: Performed at: 02 - [facility] [address] [id number] Pulverizing And Sifting Operator: Meredith Gil MD, Phone: [phone] Performed at: 01 - [facility] [address] [id number] Pulverizing And Sifting Operator: Meredith Gil MD, Phone: [phone] Diagnosis Comment(A) [facility] ACCOUNT BILL Comment: EPITHELIAL [...] 11:06 AM CDT 11/29/2023 Comment:Cervix Release to [facility] Anu [facility] ACCOUNT BILL - 12/05/2023 5:09 PM CDT Performed at: 01 - [facility] [id number] Pulverizing And Sifting Operator: Meredith Gil MD, Phone: [phone] Specimen Comment: [id number] Specimen Comment: Source.............Cervix Specimen Comment: No. of containers..01 ThinPrep Vial Nai Jurado MD LAB - PATHOLOGY/CYTOLOGY [place] Final Result [facility] ACCOUNT BILL [address] [place] [address] * HIV-1 HIV-2 ANTIBODY + HIV P24 [...] AM CDT Performed at: 01 - [facility] [place] [address] [place], [place] [id number] Pulverizing And Sifting Operator: Karlos Huffman PhD, Phone: [phone] us Nai Jurado MD LAB - CHEMISTRY ORDERABLES Fi nal Result Performing Organization Address City[facility]/ZIP Co de Phone Number [facility] ACCOUNT BILL [address] [place] [address] * HEPATITIS C AB W/RFLX TO HCV RNA QN PCR (12/07/2021) Hepatitis C Antibody NON-REACTI VE NON-REACT [facility] Signal to Cut-Off 0.08 <1.00 [facility] Comment: HCV antibody was non-reactive. There is no laboratory evidence of HCV infection. In most cases, no further action is required. However, if recent HCV exposure is suspected, a test for HCV RNA (test code 02821) is suggested. For additional information please refer to http://education.Farmstr/faq/GDG09g8 (This link is being provided for informational/ educational purposes only.) Test Performed at: [facility] [address] [place] [address] PURVI PABLO DO,MPH Blood BLOOD SPECIMEN / Unknown 12/07/2021 12/07/2021 10:47 AM CDT us Karrie Mack MD LAB - CHEMISTRY ORDERABLES Final Result [facility] [address] [place] [address] from Last 3 Months or Most Recently Relevant to Health Maintenance Insurance [facility] Advance Directives * Full Code (Latest [...] 4:54 PM 06/22/2022 2:44 PM Care Teams Healthcare Consultant Relationship Specialty Start Date End Date Ronel Thornton DO [address] [place] [address] PCP - General Family Medicine 03/18/23 Ronel Thornton DO [address] [place] [address] PCP - Attributed-[facility] 04/12/23
--- OUTSIDE RECORDS SUMMARY | 2024-09-22 07:22 | XMS_ITS | Encounter Summary ---
Author Organization [facility] Address [address] [place] [address] Care Team Providers Care Human Resource Advisor Name Role Phone Mellissa Jiménez MD Primary Care Provider [phone] Ronel hTornton DO Primary Care Provider [phone] Daphnie Gillespie MD Unavailable Juliana Peralta HIGH WORKER Unavailable [phone] Juliana Peralta HIGH WORKER Unavailable [phone] Ronel Thornton DO Unavailable Kenyatta Taylor RN Unavailable Tiago Lew Unavailable [phone] Reason for Visit * Reason Onset Date Comments Forms/questionnaires 01/23/2021 Encounter Details Date Type Department Care Team (Late st Contact Info) Description 01/23/2021 Telephone [facility] Pediatrics - Surgery [address] [place] [address] Daphnie Gillespie MD [address] [place] [phone] Forms/questionnaires Social History Tobacco Use Types [...] on file Legal Sex Female 6:25 PM SHOTGUN SHELL LOADING 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 No / Unsure 01/24/2021 11:47 AM SHOTGUN SHELL LOADING MACHINE OPERATOR documented as of this encounter Functional Status [...] wanted to know if it was received. GUN SHELL LOADING MACHINE OPERATOR documented in this encounter Plan of Treatment Upcoming Encounters Date Type Department Care Team (Late st Contact Info) Description 01/20/2025 8:20 AM SHOTGUN SHELL LOADING MACHINE OPERATOR Office Visit [facility] - Family Medicine [address] [place] [phone] Ronel Thornton DO [address] [place] [phone] documented as of this encounter Visit Diagnoses Not on filedocumented in this encounter Additional Health Concerns Infection Onset Date Last Indicated Resolved Time COVID-19 Under Investigation 08/10/2021 08/10/2021 08/10/2021 2:59 AM CDT documented as of this encounter Care Teams Human Resource Advisor Relationship Specialty Start Date End Date Mellissa Jiménez MD [address] [place] [address] [place] [address] PCP - General Family Medicine 04/25/20 03/17/23 Ronel Thornton DO [address] [place] [id number] PCP - General Family Medicine 03/18/23 Daphnie Gillespie MD [address] [place] [phone] PCP - Attributed-[facility] 02/11/23 04/11/23 Ronel Thornton DO [address] [place] [address] PCP - Attributed-[facility] 04/12/23 Juliana Peralta MSW Outpatient Instructor [employer] Care Management 04/24/2304/11 Juliana Peralta MSW Outpatient Instructor [employer] Care Management 04/30/2304/12 Kenyatta Taylor RN [address] [address] Divisional StorekeeperAerodynamics Professor 09/02/23 10/04/23 Tiago Lew Care Coordination Specialist Care Management 09/26/23 11/10/23 documented as of this encounter
--- OUTSIDE RECORDS SUMMARY | 2024-09-22 07:22 | XMS_ITS | Encounter Summary ---
Author Organization [facility] Address [address] [facility] [address] Care Team Providers Care Agricultural Education Instructor Name Role Phone Mellissa Jiménez MD Primary Care Provider [phone] Ronel Thornton DO Primary Care Provider [phone] Daphnie Gillespie MD Unavailable Juliana Peralta RN TRAINING Unavailable [phone] Juliana Peralta RN TRAINING Unavailable [phone] Ronel Thornton DO Unavailable [phone] Kenyatta Taylor RN Unavailable Tiago Lew Unavailable [phone] Reason for Visit * Reason Onset Date Comments Appointment 10/05/2020 Contraceptive management 10/05/2020 Encounter Details Date Type Department Care Team (Late st Contact Info) Description 10/05/2020 Telephone [facility] [address] [place], [place] [id number] [place] [address] [place] [address] Appointment; Contraceptive management Social History Tobacco Use Types Packs/Day Years Used Date Smoking Tobacco: Never Smokeless Tobacco: Never Alcohol Use Standard Drinks/Week Comments No 0 (1 standard drink = 0.6 oz pur e alcohol) Comments No Sex and Gender Information Value Date Recorded Sex Assigned at Not on file Legal Sex Female 6:25 PM AUTOMATIC RIVETING MACHINE OPERATOR Gender Identity Not on file [...] the office yet to get scheduled. CB# [phone] documented in this encounter Plan of Treatment Upcoming Encounters Date Type Department Care Team (Late st Contact Info) Description 01/20/2025 8:20 AM AUTOMATIC RIVETING MACHINE OPERATOR Office Visit [facility] Family Medicine [address] [place] [address] Ronel Thornton DO [address] [place] [address] documented as of this encounter Visit Diagnoses Not on filedocumented in this encounter Additional Health Concerns Infection Onset Date Last Indicated Resolved Time COVID-19 Under Investigation 08/10/2021 08/10/2021 08/10/2021 2:59 AM CDT documented as of this encounter Care Teams Agricultural Education Instructor Relationship Specialty Start Date End Date Mellissa Jiménez MD [address] [place] [address] [place] [address] PCP - General Family Medicine 04/25/20 03/17/23 Ronel Thornton DO [address] [place] [address] PCP - General Family Medicine 03/18/23 [place] [address] [place] [phone] PCP - Attributed-[facility] STL 02/11/23 04/11/23 Ronel Thornton DO [address] [place] [address] PCP - Attributed-[facility] STL 04/12/23 Juliana Peralta MSW Outpatient Systems Program Manager Care Management 04/24/2304/11 Juliana Peralta MSW Outpatient Systems Program Manager Care Management 04/30/2304/12 Kenyatta Taylor RN [address] [address] Software Product ManagerUniversity Partnership Rep 09/02/23 10/04/23 Tiago Lew Care Coordination Specialist Care Management 09/26/23 11/10/23 documented as of this encounter
--- OUTSIDE RECORDS SUMMARY | 2024-09-22 07:22 | XMS_ITS | Encounter Summary ---
Author Organization [facility] Address [address] [facility] [place] [address] Care Team Providers Care Enterprise Resource Planning Consultant Name Role Phone Mellissa Jiménez MD Primary Care Provider [phone] Ronel Thornton DO Primary Care Provider [phone] Daphnie Gillespie MD Unavailable Juliana Peralta MAGAZINE SUPERVISOR Unavailable [phone] Juliana Peralta Unavailable [phone] Ronel Thornton DO Unavailable [phone] Kenyatta Taylor RN Unavailable Tiago Lew Unavailable [phone] Encounter Details Date Type Department Care Team (Late st Contact Info) Description 07/28/2020 Telephone [facility] Pediatrics - Pulmonology [address] [place] [address] Bessie Erwin Social History Tobacco Use Types Packs/Day Years Used Date Smoking Tobacco: Never Smokeless Tobacco: Never Alcohol Use Standard Drinks/Week Comments No 0 (1 standard drink = 0.6 oz pur e alcohol) Comments No Sex and Gender Information Value Date Recorded Sex Assigned at Not on file Legal Sex Female 6:25 PM BLOCK OPERATOR Gender Identity Not on file Sexual [...] PM CDT Mom called regarding not eating [phone] Marla Gillespie documented in this encounter Plan of Treatment Upcoming Encounters Date Type Department Care Team (Late st Contact Info) Description 01/20/2025 8:20 AM BLOCK OPERATOR Office Visit [facility] Family [address] [address] Ronel Thornton DO [address] [place] [address] documented as of this encounter Visit Diagnoses Not on filedocumented in this encounter Additional Health Concerns Infection Onset Date Last Indicated Resolved Time COVID-19 Under Investigation 08/10/2021 08/10/2021 08/10/2021 2:59 AM CDT documented as of this encounter Care Teams Enterprise Resource Planning Consultant Relationship Specialty Start Date End Date Mellissa Jiménez MD [address] [place] [address] [place] [address] PCP - General Family Medicine 04/25/20 03/17/23 Ronel Thornton DO [address] [place], [place] [address], [place] [address] PCP - General Family Medicine 03/18/23 Daphnie Gillespie MD [address] [place] [phone] PCP - Attributed-[facility] STL 02/11/23 04/11/23 Ronel Thornton DO [address] [place], [place] [address], [place] [address] PCP - Attributed-[facility] STL 04/12/23 Juliana Peralta MSW Outpatient Mental Health Therapist Care Management 04/24/2304/11 Juliana Peralta MSW Outpatient Mental Health Therapist Care Management 04/30/2304/12 Kenyatta Taylor RN [address] [address] Senior National Account ManagerTissue Inserter 09/02/23 10/04/23 Tiago Lew Care Coordination Specialist Care Management 09/26/23 11/10/23 documented as of this encounter
--- OUTSIDE RECORDS SUMMARY | 2024-09-22 07:22 | XMS_ITS | Clinical Summary ---
Author Organization [facility] Address [address] [place] [address] Phone Care Team Providers Care Road Engineer Freight Name Role Phone Mellissa Jiménez MD Primary [...] on file Legal Sex Female 10:44 PM HEALTH TECHNICIAN HEARING Gender Identity Not on file Sexual Orientation [...] 52.2 kg (115 lb) 04/20/2023 2:30 AM HEALTH TECHNICIAN HEARING Height 152.4 cm (5') 04/20/2023 2:30 AM HEALTH TECHNICIAN HEARING Body Mass Index 22.46 04/20/2023 2:30 AM HEALTH TECHNICIAN HEARING Plan of Treatment Health Maintenance Due Date [...] 02/22/2003, Additional history exists [place] [address] [facility] [id number] OUT OF NETWORK Advance Directives For more information, please contact: [phone] * Full Code (Latest Code Status on File) Date Activated Date Inactivated Comments 04/20/2023 2:32 AM 04/21/2023 4:[address] Engineer Freight Relationship Specialty Start Date End Date Mellissa Jiménez MD [address] [place] [phone] PCP - General Family Practice 04/20/23
[2024-09-22 07:29] VITALS: BP 127/85; PULSE 88; RESP 18; TEMP 36.6; O2SAT 100
[2024-09-22 07:37] VITALS: BP 127/85; PULSE 88; RESP 18; TEMP 36.6; O2SAT 100
--- NOTE | 2024-09-22 07:43 | ED.ANXIETY ---
HPI - Anxiety General Chief Complaint: Anxiety Stated Complaint: Anxiety for past hour. Time Seen by Provider: 09/22/24 07:39 History of Present Illness HPI narrative: Pt presents with significant anxiety this morning. Pt has been dealing with this for awhile and has been on lexapro for two months but not helping. Pt tried her hydroxizine this morning but it did not help. Pt seems to have a lot of anxiety related to work. Pt is not suicidal. Related Data Home Medications ?Medication ?Instructions ?Recorded ?Confirmed ?Last Taken ?Type olanzapine 15 mg tablet 15 tablet PO DAILY 07/17/21 07/18/24 07/17/24 19:00 History escitalopram oxalate 10 mg tablet 10 mg PO DAILY 07/18/24 07/18/24 07/17/24 19:00 History Allergies Allergy/AdvReac Type Severity Reaction Status Date / Time No Known Allergies Allergy Verified 09/22/24 07:38 Review of Systems Review of Systems: All systems reviewed & are unremarkable except as noted in HPI and below PMFSH Past Medical History Medical History (Updated 09/22/24 @ 09:16 by Latha Gonsales III, DO) Drug withdrawal seizure History of eating disorder Anxiety Depression Family History Family History Grandparent History of alcoholism Depression Mother History of alcoholism Hypertension Depression Social History Social History Smoking status: Never smoker Alcohol intake: never Substance use: current Substance use type: marijuana Last use: 07/18/2024 Do You Feel Safe in your Home?: Yes Lack of Transportation: No Lack of Food: Never True Current Housing: I Have Housing Concerned About Future Housing: No Difficulty Paying Gas/Electric Bills: No Difficulty Paying for Meds: No Currently Unemployed: No Education: High School Diploma/GED Difficulty w/ Childcare or Family Care: No Living arrangements: with roommate(s) Occupation/Education: unemployed Additional occupation/education comments: not currently working or in school Gender identity (if verbalized by the patient): Female Spiritual care concerns: No Exam Const: General: healthy appearing and no acute distress Nutritional Appearance: thin Orientation/consciousness: patient oriented x3 Limitations: no limitations HENMT: Head: normal to inspection Mouth: Yes Normal oral and palatal mucosa present Throat: posterior oropharynx normal Eyes: Pupils: Equal, round and reactive pupils present EOM: EOMs intact bilaterally Neck: Neck: normal visual inspection Chest: Chest palpation & inspection: normal inspection of the chest Resp: Effort & Inspection: normal respiratory effort Auscultation: clear to auscultation bilaterally Cardio: Rate: regular rate Rhythm: regular rhythm GI: GI Palp: Yes Soft to palpation and No Tenderness to palpation present (GI) Auscultation: normal bowel sounds Skin: General skin exam: normal color Rashes: no rashes Wounds: no wounds Neuro: General: patient oriented x3, moves all extremities, no meningeal signs and no focal motor deficits Speech: normal speech Extrem: General: normal to inspection and no clubbing, cyanosis or edema Psych: Mental Status: mental status grossly normal Affect: Anxious affect present Attitude: cooperative Course Vital Signs Vital signs: Vital Signs Temperature 97.9 F 09/22/24 07:29 Pulse Rate 88 09/22/24 07:29 Respiratory Rate 18 09/22/24 07:29 Blood Pressure 127/85 09/22/24 07:29 Pulse Oximetry 100 09/22/24 07:29 Oxygen Delivery Room Air 09/22/24 07:29 Temperature 97.9 F 09/22/24 07:37 Pulse Rate 86 09/22/24 09:33 Respiratory Rate 16 09/22/24 09:33 Blood Pressure 112/79 09/22/24 09:33 Pulse Oximetry 99 09/22/24 09:33 Oxygen Delivery Room Air 09/22/24 07:29 MDM - Anxiety MDM Narrative Medical decision making narrative: Pt very anxious this morning and meds not helping. Pt is not suicidal. Will give dose of ativan IM and reassess. Pt says still anxious after ativan and is nauseated. will give dose of IM compazine (per pt request). Pt feels better after compazine. home on a few ativan with follow up with psychiatrist for medicine adjustment. Discharge Plan Discharge Clinical Impression: Anxiety Patient Disposition: Home Condition: Improved Instructions: Antibiotic Form, Anxiety (ED) Patient Language: Hungarian Prescriptions: New lorazepam [Ativan] 1 mg tablet 1 mg PO BID PRN (Reason: anxiety) Qty: 7 0RF No Action olanzapine 15 mg tablet 15 tablet PO DAILY hydroxyzine pamoate [Vistaril] 25 mg capsule 25 mg PO TID PRN (Reason: anxiety) Qty: 20 0RF escitalopram oxalate 10 mg tablet 10 mg PO DAILY famotidine 20 mg tablet 20 mg PO DAILY Qty: 30 0RF dicyclomine 20 mg tablet 20 mg PO TID PRN (Reason: abdominal pain) Qty: 30 0RF ondansetron 4 mg tablet,disintegrating 4 mg PO Q8H PRN (Reason: nausea and vomiting) Qty: 14 0RF Pepto-Bismol 262 mg tablet 524 mg PO QID PRN (Reason: diarrhea) 3 Days Qty: 24 0RF Follow-up/Referrals: UNKNOWN,DOCTOR [Primary Care Provider] -
[2024-09-22] MEDS: LORazepam INJ (*CRX) 2 MG/ML VIAL 1 MG IM (07:48)
--- OUTSIDE RECORDS SUMMARY | 2024-09-22 07:48 | XMS_ITS | Encounter Summary ---
Author Organization [facility] Address [address] [facility] [place] [address] Care Team Providers Care Purchasing/Receiving Name Role Phone Mellissa Jiménez MD Primary Care Provider [phone] Ronel Thornton DO Primary Care Provider [phone] Daphnie Gillespie MD Unavailable Juliana Peralta TIE KNITTER HELPER Unavailable [phone] Juliana Peralta Unavailable [phone] Ronel Thornton DO Unavailable [phone] Kenyatta Taylor RN Unavailable Tiago Lew Unavailable [phone] Encounter Details Date Type Department Care Team (Late st Contact Info) Description 07/28/[address] [facility] Pediatrics - Pulmonology [address] [place] [address] Bessie Erwin Social History Tobacco Use Types Packs/Day Years Used Date Smoking Tobacco: Never Smokeless Tobacco: Never Alcohol Use Standard Drinks/Week Comments No 0 (1 standard drink = 0.6 oz pur e alcohol) Comments No Sex and Gender Information Value Date Recorded Sex Assigned at Not on file Legal Sex Female 6:25 PM POLITICAL SCIENCE RESEARCH ASSISTANT Gender Identity Not on file Sexual [...] PM CDT Mom called regarding not eating [phone] Marla Gillespie documented in this encounter Plan of Treatment Upcoming Encounters Date Type Department Care Team (Late st Contact Info) Description 01/20/2025 8:20 AM POLITICAL SCIENCE RESEARCH ASSISTANT Office Visit [facility] Family [address] [address] Ronel Thornton DO [address] [place] [address] documented as of this encounter Visit Diagnoses Not on filedocumented in this encounter Additional Health Concerns Infection Onset Date Last Indicated Resolved Time COVID-19 Under Investigation 08/10/2021 08/10/2021 08/10/2021 2:59 AM CDT documented as of this encounter Care Teams Purchasing/Receiving Relationship Specialty Start Date End Date Mellissa Jiménez MD [address] [place] [address] [place] [address] PCP - General Family Medicine 04/25/20 03/17/23 Ronel Thornton DO [address] [place] [address] [address] PCP - General Family Medicine 03/18/23 Daphnie Gillespie MD [address] [place] [phone] PCP - Attributed-[facility] STL 02/11/23 04/11/23 Ronel Thornton DO [address] [place] [address] [address] PCP - Attributed-[facility] STL 04/12/23 Juliana Peralta MSW Outpatient Corporate Sales Representative Care Management 04/24/2304/11 Juliana Peralta MSW Outpatient Corporate Sales Representative Care Management 04/30/2304/12 Kenyatta Taylor RN [address] [address] Cryptological TechnicianSalesperson Books 09/02/23 10/04/23 Tiago Lew Care Coordination Specialist Care Management 09/26/23 11/10/23 documented as of this encounter
--- OUTSIDE RECORDS SUMMARY | 2024-09-22 07:48 | XMS_ITS | Encounter Summary ---
Author Organization [facility] Address [address] [facility] [place] [address] Care Team Providers Care Chief Operator Reformer Name Role Phone Mellissa Jiménez MD Primary Care Provider [phone] Ronel Thornton DO Primary Care Provider Daphnie Gillespie MD Unavailable Juliana Peralta PROJECT MANAGEMENT PROFESSIONAL Unavailable [phone] Juliana Peralta PROJECT MANAGEMENT PROFESSIONAL Unavailable [phone] Ronel Thornton DO Unavailable [phone] Kenyatta Taylor RN Unavailable [phone] Tiago Lew Unavailable [phone] Reason for Visit * Reason Onset Date Comments Forms/questionnaires 01/23/2021 Encounter Details Date Type Department Care Team (Late st Contact Info) Description 01/23/2021 Telephone [facility] Pediatrics - Surgery [address] [place] [address] Daphnie Gillespie MD [address] [place] [phone] Forms/questionnaires Social History Tobacco Use Types [...] on file Legal Sex Female 6:25 PM KEY PERSON Gender Identity Not on file Sexual Orientation Not on file COVID-19 Exposure Response Date Recorded In the last month, have you been in contact with someone who was confirmed or suspected to have Coronavirus / COVID-19? No / Unsure 01/24/2021 11:47 AM KEY PERSON documented as of this encounter Functional Status [...] wanted to know if it was received. PERSON documented in this encounter Plan of Treatment Upcoming Encounters Date Type Department Care Team (Late st Contact Info) Description 01/20/2025 8:20 AM KEY PERSON Office Visit [facility] - Family Medicine [address] [place] [id number] Ronel Thornton DO [address] [place] [id number] documented as of this encounter Visit Diagnoses Not on filedocumented in this encounter Additional Health Concerns Infection Onset Date Last Indicated Resolved Time COVID-19 Under Investigation 08/10/2021 08/10/2021 08/10/2021 2:59 AM CDT documented as of this encounter Care Teams Chief Operator Reformer Relationship Specialty Start Date End Date Mellissa Jiménez MD [address] [place] [address] [place] [address] PCP - General Family Medicine 04/25/20 03/17/23 Ronel Thornton DO [address] [place] [address] PCP - General Family Medicine 03/18/23 Daphnie Gillespie MD [address] [place] [phone] PCP - Attributed-[facility]HP STL 02/11/23 04/11/23 Ronel Thornton DO [address] [place] [address] PCP - Attributed-[facility] STL 04/12/23 Juliana Peralta MSW Outpatient Spiral Tube Winder Care Management 04/24/2304/11 Juliana Peralta MSW Outpatient Spiral Tube Winder Care Management 04/30/2304/12 Kenyatta Taylor RN [address] [address] Armature BalancerDairy Cattle Farm Worker 09/02/23 10/04/23 Tiago Lew Care Coordination Specialist Care Management 09/26/23 11/10/23 documented as of this encounter
--- OUTSIDE RECORDS SUMMARY | 2024-09-22 07:48 | XMS_ITS | Clinical Summary ---
Author Organization [facility] Address [address] [place] [address] Care Team Providers Care Data Operations Manager Name Role Phone Ronel Thornton DO Primary Care Provider [phone] Ronel Thornton DO Unavailable [phone] Source Comments [facility],non-owned Affiliates and Associated Physician Practices is amultiple site organization consisting of ambulatory clinics and hospital sitesin [place], [place], [place] and [place]. This disclosure is being madepursuant to the Care Everywhere program and may not contain all information available regarding this patient. Last updated 17.[facility] Allergies No known active allergies Medications * [...] 01/18/2020 Assessment & Plan (01/08/2021 3:06 PM FINISHER MACHINE): Assessment: Major depressive disorder, generalized anxiety disorder [...] recs Assessment & Plan (01/07/2021 4:50 PM FINISHER MACHINE): Assessment: Major depressive disorder, generalized anxiety disorder [...] recs Assessment & Plan (01/06/2021 5:55 PM FINISHER MACHINE): Assessment: Major depressive disorder, generalized anxiety disorder [...] slowly. Assessment & Plan (04/07/2020 6:45 PM FINISHER MACHINE): Assessment: Hx of major depressive disorder and generalized anxiety disorder. Pt has been seen by psychiatry and psychology, now improved since starting/optimizing zyprexa QHS, clonazepam TID, and prozac QD. Plan: - Prozac 30 mg QD (dose of 30 mg started on 03/09/20, Prozac initially began 02/07) - Zyprexa 5 mg QHS - Klonopin 0.5mg TID Assessment & Plan (04/06/2020 3:54 PM FINISHER MACHINE): Assessment: Hx of major depressive disorder and [...] TID Assessment & Plan (04/05/2020 10:49 AM FINISHER MACHINE): Assessment: Hx of major depressive disorder and [...] TID Assessment & Plan (04/04/2020 10:23 AM FINISHER MACHINE): Assessment: Hx of major depressive disorder and [...] TID Assessment & Plan (04/03/2020 6:30 PM FINISHER MACHINE): Assessment: Hx of major depressive disorder and [...] TID Assessment & Plan (04/01/2020 11:15 AM FINISHER MACHINE): Assessment: Hx of major depressive disorder and [...] dose) Assessment & Plan (03/31/2020 10:07 AM FINISHER MACHINE): Assessment: Hx of major depressive disorder and [...] dose) Assessment & Plan (03/30/2020 2:24 PM FINISHER MACHINE): Assessment: Hx of major depressive disorder and [...] dose) Assessment & Plan (03/29/2020 6:50 AM FINISHER MACHINE): Assessment: Hx of major depressive disorder and [...] dose) Assessment & Plan (03/27/2020 10:30 AM FINISHER MACHINE): Assessment: Hx of major depressive disorder and generalized anxiety disorder. Pt seen by psychiatry on admission and was started elavil, but continued to have anxiety. Elavil was discontinued due to persistent tachycardia and hypotension. [facility], she was started on zyprexa QHS, [...] dose) Assessment & Plan (03/26/2020 11:15 AM FINISHER MACHINE): Assessment: Hx of major depressive disorder and [...] dose) Assessment & Plan (03/25/2020 8:58 AM FINISHER MACHINE): Assessment: Hx of major depressive disorder and [...] dose) Assessment & Plan (03/24/2020 6:44 AM FINISHER MACHINE): Assessment: Hx of major depressive disorder and [...] dose) Assessment & Plan (03/23/2020 12:19 PM FINISHER MACHINE): Assessment: Hx of major depressive disorder and [...] dose) Assessment & Plan (03/22/2020 10:47 AM FINISHER MACHINE): Assessment: Hx of major depressive disorder and [...] recommendations) Assessment & Plan (03/21/2020 3:11 PM FINISHER MACHINE): Assessment: Hx of major depressive disorder and [...] mg. Assessment & Plan (03/20/2020 10:31 AM FINISHER MACHINE): Assessment: Hx of major depressive disorder and generalized anxiety disorder. Pt seen by psychiatry on admission and was started elavil, but continued to have anxiety. Elavil was discontinued due to persistent tachycardia and hypotension. [facility], she was started on zyprexa [...] 03/21. Assessment & Plan (03/19/2020 10:38 AM FINISHER MACHINE): Assessment: Hx of major depressive disorder and [...] withdrawal Assessment & Plan (03/18/2020 12:58 PM FINISHER MACHINE): Assessment: Hx of major depressive disorder and [...] anxiety Assessment & Plan (03/17/2020 10:33 AM FINISHER MACHINE): Assessment: Hx of major depressive disorder and [...] appreciated Assessment & Plan (03/16/2020 2:24 PM FINISHER MACHINE): Assessment: Hx of major depressive disorder and [...] recommendations Assessment & Plan (03/15/2020 11:11 AM FINISHER MACHINE): Assessment: Hx of major depressive disorder and [...] anxiety Assessment & Plan (03/14/2020 6:28 AM FINISHER MACHINE): Assessment: Hx of major depressive disorder and [...] anxiety Assessment & Plan (03/13/2020 6:28 AM FINISHER MACHINE): Assessment: Hx of major depressive disorder and [...] anxiety Assessment & Plan (03/12/2020 11:35 AM FINISHER MACHINE): Assessment: Hx of major depressive disorder and [...] anxiety Assessment & Plan (03/11/2020 12:43 PM FINISHER MACHINE): Assessment: Hx of major depressive disorder and [...] anxiety Assessment & Plan (03/10/2020 6:11 AM FINISHER MACHINE): Assessment: Hx of major depressive disorder and [...] anxiety Assessment & Plan (03/09/2020 6:24 AM FINISHER MACHINE): Assessment: Hx of major depressive disorder and [...] anxiety Assessment & Plan (03/08/2020 10:51 AM FINISHER MACHINE): Assessment: Hx of major depressive disorder and [...] anxiety Assessment & Plan (03/07/2020 9:15 AM FINISHER MACHINE): Assessment: Hx of major depressive disorder and [...] recommendations -Develop daily schedule with assistance of vocational childcare teacher-Alma Assessment & Plan (03/06/2020 10:09 AM FINISHER MACHINE): Assessment: Hx of major depressive disorder and [...] anxiety Assessment & Plan (03/05/2020 9:56 AM FINISHER MACHINE): Assessment: Hx of major depressive disorder and [...] anxiety Assessment & Plan (03/04/2020 12:58 PM FINISHER MACHINE): Assessment: Hx of major depressive disorder and [...] anxiety Assessment & Plan (03/03/2020 3:16 PM FINISHER MACHINE): Assessment: Hx of major depressive disorder and [...] anxiety Assessment & Plan (03/01/2020 12:04 PM FINISHER MACHINE): Assessment: Hx of major depressive disorder and [...] anxiety Assessment & Plan (02/29/2020 12:53 PM FINISHER MACHINE): Assessment: Hx of major depressive disorder and [...] anxiety Assessment & Plan (02/28/2020 9:22 AM FINISHER MACHINE): Assessment: Hx of major depressive disorder and [...] anxiety Assessment & Plan (02/27/2020 10:27 AM FINISHER MACHINE): Assessment: Hx of major depressive disorder and [...] negative Assessment & Plan (02/26/2020 11:12 AM FINISHER MACHINE): Assessment: Hx of major depressive disorder and [...] pending Assessment & Plan (02/25/2020 9:33 AM FINISHER MACHINE): Assessment: Hx of major depressive disorder and [...] pending Assessment & Plan (02/24/2020 6:51 AM FINISHER MACHINE): Assessment: Hx of major depressive disorder and [...] pending Assessment & Plan (02/23/2020 10:19 AM FINISHER MACHINE): Assessment: Hx of major depressive disorder and [...] pending Assessment & Plan (02/22/2020 11:07 AM FINISHER MACHINE): Assessment: Hx of major depressive disorder and [...] QHS Assessment & Plan (02/21/2020 10:54 AM FINISHER MACHINE): Assessment: History of major depressive disorder and [...] tablet Assessment & Plan (02/20/2020 11:33 AM FINISHER MACHINE): Assessment: History of major depressive disorder and [...] tablet Assessment & Plan (02/19/2020 3:05 PM FINISHER MACHINE): Assessment: History of major depressive disorder and [...] tablet Assessment & Plan (02/18/2020 10:13 AM FINISHER MACHINE): Assessment: History of major depressive disorder and [...] tablet Assessment & Plan (02/17/2020 12:26 PM FINISHER MACHINE): Assessment: History of major depressive disorder and [...] tablet Assessment & Plan (02/16/2020 1:14 PM FINISHER MACHINE): Assessment: History of major depressive disorder and [...] tablet Assessment & Plan (02/15/2020 12:31 PM FINISHER MACHINE): Assessment: History of major depressive disorder and [...] tablet Assessment & Plan (02/14/2020 2:24 PM FINISHER MACHINE): Assessment: History of major depressive disorder and [...] tablet Assessment & Plan (02/13/2020 12:00 PM FINISHER MACHINE): Assessment: History of major depressive disorder and [...] tablet Assessment & Plan (02/12/2020 11:20 AM FINISHER MACHINE): Assessment: History of major depressive disorder and [...] tablet Assessment & Plan (02/11/2020 11:54 AM FINISHER MACHINE): Assessment: History of major depressive disorder and [...] tablet Assessment & Plan (02/10/2020 12:09 PM FINISHER MACHINE): Assessment: History of major depressive disorder and [...] tablet Assessment & Plan (02/09/2020 11:50 AM FINISHER MACHINE): Assessment: History of major depressive disorder and [...] [place] Assessment & Plan (02/08/2020 12:54 PM FINISHER MACHINE): Assessment: History of major depressive disorder and [...] [place] Assessment & Plan (02/07/2020 11:47 AM FINISHER MACHINE): Assessment: History of major depressive disorder and [...] [place] Assessment & Plan (02/06/2020 8:12 AM FINISHER MACHINE): Assessment: History of major depressive disorder and [...] [place] Assessment & Plan (02/05/2020 9:12 AM FINISHER MACHINE): Assessment: History of major depressive disorder and [...] [place] Assessment & Plan (02/04/2020 12:43 PM FINISHER MACHINE): Assessment: History of major depressive disorder and [...] [place] Assessment & Plan (02/03/2020 2:28 PM FINISHER MACHINE): Assessment: History of major depressive disorder and [...] [place] Assessment & Plan (02/02/2020 4:02 PM FINISHER MACHINE): Assessment: History of major depressive disorder and [...] [place] Assessment & Plan (02/01/2020 12:12 PM FINISHER MACHINE): Assessment: History of major depressive disorder and [...] [place] Assessment & Plan (01/31/2020 1:04 PM FINISHER MACHINE): Assessment: History of major depressive disorder and [...] [place] Assessment & Plan (01/30/2020 10:30 AM FINISHER MACHINE): Assessment: History of major depressive disorder and [...] [place] Assessment & Plan (01/29/2020 9:40 PM FINISHER MACHINE): Assessment: History of major depressive disorder and [...] [place] Assessment & Plan (01/28/2020 11:59 AM FINISHER MACHINE): Assessment: History of major depressive disorder and [...] lunch Assessment & Plan (01/27/2020 3:57 PM FINISHER MACHINE): Assessment: History of major depressive disorder and [...] lunch Assessment & Plan (01/26/2020 6:01 PM FINISHER MACHINE): Assessment: History of major depressive disorder and [...] [place] Assessment & Plan (01/25/2020 2:56 PM FINISHER MACHINE): Assessment: History of major depressive disorder and [...] PO. Assessment & Plan (01/24/2020 8:11 AM FINISHER MACHINE): Assessment: History of major depressive disorder and [...] (02/22/20) Assessment & Plan (01/23/2020 7:09 AM FINISHER MACHINE): Assessment: History of major depressive disorder and [...] (02/22/20) Assessment & Plan (01/22/2020 7:52 AM FINISHER MACHINE): Assessment: History of major depressive disorder and [...] (02/22/20) Assessment & Plan (01/21/2020 7:40 AM FINISHER MACHINE): Assessment: History of major depressive disorder and [...] (02/22/20) Assessment & Plan (01/20/2020 7:36 AM FINISHER MACHINE): Assessment: History of major depressive disorder and [...] (02/22/20) Assessment & Plan (01/19/2020 7:22 AM FINISHER MACHINE): Assessment: History of major depressive disorder and [...] (02/22/20) Assessment & Plan (01/18/2020 4:35 PM FINISHER MACHINE): Assessment: History of major depressive disorder and [...] range. Assessment & Plan (04/08/2020 1:31 PM FINISHER MACHINE): Assessment: Malnutrition is secondary to ARFID, SMA [...] PT Assessment & Plan (04/07/2020 2:52 PM FINISHER MACHINE): Assessment: Malnutrition is secondary to ARFID, SMA [...] PT Assessment & Plan (04/07/2020 6:44 PM FINISHER MACHINE): Assessment: Marlee is a 19 year old [...] follow up with adolescent medicine on 04/18, [facility] on 05/02, and and scheduling Psych intake visit SOCIAL: - General medicine team spoke with and updated mother on 04/06 LABS: daily urine spec gravity, BMP/Mg/Phos Q / Assessment & Plan (04/06/2020 6:45 PM FINISHER MACHINE): Assessment: Marlee is a 19 year old [...] / Assessment & Plan (04/05/2020 3:22 PM FINISHER MACHINE): Assessment: Malnutrition is secondary to ARFID, SMA [...] PT Assessment & Plan (04/05/2020 10:49 AM FINISHER MACHINE): Assessment: Marlee is a 19 year old [...] T/ Assessment & Plan (04/04/2020 3:59 PM FINISHER MACHINE): Assessment: Malnutrition is secondary to ARFID, SMA [...] daily Assessment & Plan (04/04/2020 10:21 AM FINISHER MACHINE): Assessment: Marlee is a 19 year old [...] / Assessment & Plan (04/03/2020 12:59 PM FINISHER MACHINE): Assessment: Marlee is a 19 year old [...] daily Assessment & Plan (04/02/2020 4:19 PM FINISHER MACHINE): Assessment: Marlee is a 19 year old [...] daily Assessment & Plan (04/01/2020 11:55 AM FINISHER MACHINE): Assessment: Malnutrition is secondary to ARFID and [...] daily Assessment & Plan (04/01/2020 11:15 AM FINISHER MACHINE): Assessment: Marlee is a 19 year old [...] daily Assessment & Plan (03/31/2020 12:05 PM FINISHER MACHINE): Assessment: Malnutrition is secondary to ARFID and [...] daily Assessment & Plan (03/31/2020 10:06 AM FINISHER MACHINE): Assessment: Marlee is a 19 year old [...] daily Assessment & Plan (03/30/2020 2:24 PM FINISHER MACHINE): Assessment: Marlee is a 19 year old [...] daily Assessment & Plan (03/29/2020 10:40 AM FINISHER MACHINE): Assessment: Marlee is a 19 year old [...] allowed in room. May have water from [employer] cup. Oral fluids limited to 250 mL [...] daily Assessment & Plan (03/28/2020 12:29 PM FINISHER MACHINE): Assessment: Marlee is a 19 year old [...] daily Assessment & Plan (03/27/2020 10:34 AM FINISHER MACHINE): Assessment: Marlee is a 19 year old [...] night 03/27: Increase to 50 mL/hr tonight. [facility] is aware of increase but did [...] daily Assessment & Plan (03/26/2020 11:20 AM FINISHER MACHINE): Assessment: Marlee is a 19 year old [...] daily Assessment & Plan (03/25/2020 12:30 PM FINISHER MACHINE): Assessment: Marlee is a 19 year old [...] daily Assessment & Plan (03/24/2020 5:02 PM FINISHER MACHINE): Assessment: Malnutrition is secondary to ARFID and [...] anxiety Assessment & Plan (03/24/2020 11:19 AM FINISHER MACHINE): Assessment: Marlee is a 19 year old [...] allowed in room. May have water from [employer] cup. - May take shower while sitting [...] daily Assessment & Plan (03/23/2020 12:20 PM FINISHER MACHINE): Assessment: Marlee is a 19 year old [...] daily Assessment & Plan (03/22/2020 12:20 PM FINISHER MACHINE): Assessment: Marlee is a 19 year old [...] daily Assessment & Plan (03/21/2020 3:10 PM FINISHER MACHINE): Assessment: Marlee is a 19 year old [...] 03/15/2020. Assessment & Plan (03/20/2020 10:32 AM FINISHER MACHINE): Assessment: Marlee is a 19 year old [...] 03/15/2020. Assessment & Plan (03/19/2020 10:37 AM FINISHER MACHINE): Assessment: Marlee is a 19 year old [...] 03/15/2020. Assessment & Plan (03/18/2020 1:00 PM FINISHER MACHINE): Assessment: Marlee is a 19 year old [...] 03/15/2020. Assessment & Plan (03/17/2020 10:36 AM FINISHER MACHINE): Assessment: Marlee is a 19 year old [...] 03/15/2020. Assessment & Plan (03/16/2020 2:10 PM FINISHER MACHINE): Assessment: Marlee is a 19 year old [...] 03/15/2020. Assessment & Plan (03/15/2020 11:10 AM FINISHER MACHINE): Assessment: Marlee is a 19 year old [...] 03/15/2020 Assessment & Plan (03/14/2020 9:53 AM FINISHER MACHINE): Assessment: Marlee is a 19 year old [...] 03/15/2020 Assessment & Plan (03/13/2020 9:39 AM FINISHER MACHINE): Assessment: Marlee is a 19 year old [...] week Assessment & Plan (03/12/2020 11:35 AM FINISHER MACHINE): Assessment: Marlee is a 19 year old [...] week Assessment & Plan (03/11/2020 12:43 PM FINISHER MACHINE): Assessment: Marlee is a 19 year old [...] week Assessment & Plan (03/10/2020 9:12 AM FINISHER MACHINE): Assessment: Marlee is a 19 year old [...] in Assessment & Plan (03/09/2020 10:22 AM FINISHER MACHINE): Assessment: Marlee is a 19 year old [...] in Assessment & Plan (03/08/2020 10:52 AM FINISHER MACHINE): Assessment: aMrlee is a 19 year old with history [...] in Assessment & Plan (03/07/2020 9:18 AM FINISHER MACHINE): Assessment: Marlee is a 19 year old [...] in Assessment & Plan (03/06/2020 10:09 AM FINISHER MACHINE): Assessment: Marlee is a 19 year old [...] in Assessment & Plan (03/05/2020 9:56 AM FINISHER MACHINE): Assessment: Marlee is a 19 year old [...] in Assessment & Plan (03/04/2020 12:58 PM FINISHER MACHINE): Assessment: Marlee is a 19 year old [...] A/P Assessment & Plan (03/03/2020 3:15 PM FINISHER MACHINE): Assessment: Marlee is a 19 year old [...] A/P Assessment & Plan (03/02/2020 12:06 PM FINISHER MACHINE): Assessment: Marlee is a 19 year old [...] A/P Assessment & Plan (03/01/2020 12:05 PM FINISHER MACHINE): Assessment: Marlee is a 19 year old [...] A/P Assessment & Plan (02/29/2020 12:52 PM FINISHER MACHINE): Assessment: Marlee is a 19 year old [...] A/P Assessment & Plan (02/28/2020 9:12 AM FINISHER MACHINE): Assessment: Marlee is a 19 year old [...] A/P Assessment & Plan (02/27/2020 10:03 AM FINISHER MACHINE): Assessment: Marlee is a 19 year old [...] A/P Assessment & Plan (02/26/2020 11:12 AM FINISHER MACHINE): Assessment: Marlee is a 19 year old [...] A/P Assessment & Plan (02/25/2020 9:32 AM FINISHER MACHINE): Assessment: Marlee is a 19 year old [...] A/P Assessment & Plan (02/24/2020 10:42 AM FINISHER MACHINE): Assessment: Marlee is a 19 year old [...] A/P Assessment & Plan (02/23/2020 10:22 AM FINISHER MACHINE): Assessment: Marlee is a 19 year old [...] A/P Assessment & Plan (02/22/2020 11:25 AM FINISHER MACHINE): Assessment: Marlee is a 19 year old [...] A/P Assessment & Plan (02/21/2020 10:54 AM FINISHER MACHINE): Assessment: Marlee is a 19 year old [...] A/P Assessment & Plan (02/20/2020 11:31 AM FINISHER MACHINE): Assessment: Marlee is a 19 year old [...] shift, no ice; can have sips of [place] Mist. Allowing crackers, 2 peppermints per shift. [...] A/P Assessment & Plan (02/19/2020 3:04 PM FINISHER MACHINE): Assessment: Marlee is a 19 year old [...] TPN. Assessment & Plan (02/18/2020 10:14 AM FINISHER MACHINE): Assessment: Marlee is a 19 year old [...] Sat) Assessment & Plan (02/17/2020 12:30 PM FINISHER MACHINE): Assessment: Marlee is a 19 year old [...] pending Assessment & Plan (02/16/2020 2:29 PM FINISHER MACHINE): Assessment: Marlee is a 19 year old [...] pending Assessment & Plan (02/15/2020 12:33 PM FINISHER MACHINE): Assessment: Malree is a 19 year old with history [...] pending Assessment & Plan (02/14/2020 2:23 PM FINISHER MACHINE): Assessment: Marlee is a 19 year old [...] pending Assessment & Plan (02/13/2020 11:59 AM FINISHER MACHINE): Assessment: Marlee is a 19 year old [...] pending Assessment & Plan (02/12/2020 11:49 AM FINISHER MACHINE): Assessment: Marlee is a 19 year old [...] recs Assessment & Plan (02/11/2020 11:56 AM FINISHER MACHINE): Assessment: Marlee is a 19 year old [...] recs Assessment & Plan (02/10/2020 12:11 PM FINISHER MACHINE): Assessment: Marlee is a 19 year old [...] SG) Assessment & Plan (02/09/2020 11:49 AM FINISHER MACHINE): Assessment: Marlee is a 19 year old [...] SG) Assessment & Plan (02/08/2020 12:54 PM FINISHER MACHINE): Assessment: Marlee is a 19 year old [...] recs. Assessment & Plan (02/07/2020 12:06 PM FINISHER MACHINE): Assessment: Marlee is a 19 year old [...] SG) Assessment & Plan (02/06/2020 8:12 AM FINISHER MACHINE): Assessment: Marlee is a 19 year old [...] SG) Assessment & Plan (02/05/2020 9:12 AM FINISHER MACHINE): Assessment: Marlee is a 19 year old [...] TG) Assessment & Plan (02/04/2020 12:52 PM FINISHER MACHINE): Assessment: Marlee is a 19 year old [...] TG) Assessment & Plan (02/03/2020 2:38 PM FINISHER MACHINE): Assessment: Marlee is a 19 year old [...] TG) Assessment & Plan (02/02/2020 4:02 PM FINISHER MACHINE): Assessment: Marlee is a 19 year old [...] QOD Assessment & Plan (02/01/2020 12:08 PM FINISHER MACHINE): Assessment: Marlee is a 19 year old [...] RBCs. Assessment & Plan (01/31/2020 1:05 PM FINISHER MACHINE): Assessment: Marlee is a 19 year old [...] hematuria Assessment & Plan (01/30/2020 10:30 AM FINISHER MACHINE): Assessment: Marlee is a 19 year old [...] 10.2 Assessment & Plan (01/29/2020 9:39 PM FINISHER MACHINE): Assessment: Marlee is a 19 year old [...] syndrome Assessment & Plan (01/28/2020 11:59 AM FINISHER MACHINE): Assessment: Marlee is a 19 year old [...] QOD Assessment & Plan (01/27/2020 3:59 PM FINISHER MACHINE): Assessment: Marlee is a 19 year old [...] QOD Assessment & Plan (01/26/2020 5:14 PM FINISHER MACHINE): Assessment: Marlee is a 19 year old [...] QOD Assessment & Plan (01/25/2020 2:58 PM FINISHER MACHINE): Assessment: Marlee is a 19 year old [...] QOD Assessment & Plan (01/24/2020 11:54 AM FINISHER MACHINE): Assessment: Marlee is a 19 year old [...] orthostatics Assessment & Plan (01/23/2020 7:09 AM FINISHER MACHINE): Assessment: Marlee is a 19 year old [...] orthostatics Assessment & Plan (01/22/2020 4:25 PM FINISHER MACHINE): Assessment: Marlee is a 19 year old [...] orthostatics Assessment & Plan (01/21/2020 8:15 AM FINISHER MACHINE): Assessment: Marlee Chavez is a 19 year [...] orthostatics Assessment & Plan (01/20/2020 7:36 AM FINISHER MACHINE): Assessment: Marlee Chavez is a 19 year [...] orthostatics Assessment & Plan (01/19/2020 7:20 AM FINISHER MACHINE): Assessment: Marlee Chavez is a 19 year [...] orthostatics Assessment & Plan (01/18/2020 4:30 PM FINISHER MACHINE): Assessment: Marlee Chavez is a 19 year [...] consult Assessment & Plan (03/27/2020 10:35 AM FINISHER MACHINE): Assessment: Marlee is admitted on ED Protocol for severe malnutrition. Following feeding plan per Adolescent Medicine and Nutrition. Plan: - see plan under ARFID problem Assessment & Plan (03/26/2020 11:20 AM FINISHER MACHINE): Assessment: Marlee is admitted on ED Protocol for severe malnutrition. Following feeding plan per Adolescent Medicine and Nutrition. Plan: - see plan under ARFID problem Assessment & Plan (03/24/2020 11:19 AM FINISHER MACHINE): Assessment: Marlee is admitted on ED Protocol for severe malnutrition. Following feeding plan per Adolescent Medicine and Nutrition. Plan: - see plan under ARFID problem Assessment & Plan (03/23/2020 9:00 AM FINISHER MACHINE): Assessment: Marlee is admitted on ED Protocol for severe malnutrition. Following feeding plan per Adolescent Medicine and Nutrition. Plan: - see plan under ARFID problem Assessment & Plan (03/22/2020 12:21 PM FINISHER MACHINE): Assessment: Marlee is admitted on ED Protocol for severe malnutrition. Following feeding plan per Adolescent Medicine and Nutrition. Plan: - see plan under ARFID problem Assessment & Plan (03/17/2020 4:26 PM FINISHER MACHINE): Assessment: Malnutrition is secondary to ARFID and [...] anxiety Assessment & Plan (03/15/2020 11:10 AM FINISHER MACHINE): Assessment: Marlee is admitted on ED Protocol for severe malnutrition. Following feeding plan per Adolescent Medicine and Nutrition. Plan: - see plan under ARFID problem Assessment & Plan (03/10/2020 11:17 AM FINISHER MACHINE): Assessment: Malnutrition is secondary to ARFID and [...] needed Assessment & Plan (03/06/2020 10:09 AM FINISHER MACHINE): Assessment: Marlee is admitted on ED Protocol for severe malnutrition. Following feeding plan per Adolescent Medicine and Nutrition. Plan: - see plan under ARFID problem Assessment & Plan (03/04/2020 1:41 PM FINISHER MACHINE): Assessment: Marlee is admitted on ED Protocol for severe malnutrition. Following feeding plan per Adolescent Medicine and Nutrition. Plan: - see plan under ARFID problem Assessment & Plan (03/04/2020 11:50 AM FINISHER MACHINE): Assessment: Marlee is admitted on ED Protocol for severe malnutrition. Following feeding plan per Adolescent Medicine and Nutrition. Plan: - see plan under ARFID problem Assessment & Plan (03/03/2020 3:53 PM FINISHER MACHINE): Assessment: Malnutrition is secondary to ARFID and [...] dad. Assessment & Plan (02/27/2020 9:57 AM FINISHER MACHINE): Assessment: Marlee is admitted on ED Protocol for severe malnutrition. Following feeding plan per Adolescent Medicine and Nutrition. Plan: - see plan under ARFID problem Assessment & Plan (02/26/2020 9:59 AM FINISHER MACHINE): Assessment: Malnutrition is secondary to ARFID and [...] plan. Assessment & Plan (02/25/2020 5:48 PM FINISHER MACHINE): Assessment: Malnutrition is secondary to ARFID and [...] plan. Assessment & Plan (02/18/2020 4:54 PM FINISHER MACHINE): Assessment: Malnutrition is secondary to ARFID and [...] daily Assessment & Plan (02/11/2020 11:47 AM FINISHER MACHINE): Assessment: Malnutrition is secondary to ARFID and [...] BID Assessment & Plan (02/09/2020 11:50 AM FINISHER MACHINE): Assessment: Marlee is admitted on ED Protocol for severe malnutrition. Following feeding plan per Adolescent Medicine and Nutrition. Plan: - see plan under ARFID problem Assessment & Plan (02/07/2020 11:47 AM FINISHER MACHINE): Assessment: Marlee is admitted on ED Protocol for severe malnutrition. Following feeding plan per Adolescent Medicine and Nutrition. Plan: - see plan under ARFID problem Assessment & Plan (02/06/2020 8:12 AM FINISHER MACHINE): Assessment: Marlee is admitted on ED Protocol for severe malnutrition. Following feeding plan per Adolescent Medicine and Nutrition. Plan: - see plan under ARFID problem Assessment & Plan (02/05/2020 9:01 AM FINISHER MACHINE): Assessment: Marlee is admitted on ED Protocol for severe malnutrition. Following feeding plan per Adolescent Medicine and Nutrition. Plan: - see plan under ARFID problem Assessment & Plan (02/04/2020 12:34 PM FINISHER MACHINE): Assessment: Marlee is admitted on ED Protocol for severe malnutrition. Following feeding plan per Adolescent Medicine and Nutrition. Plan: - see plan under ARFID problem Assessment & Plan (02/03/2020 2:28 PM FINISHER MACHINE): Assessment: Marlee is admitted on ED Protocol for severe malnutrition. Following feeding plan per Adolescent Medicine and Nutrition. Plan: - see plan under ARFID problem Assessment & Plan (02/02/2020 3:57 PM FINISHER MACHINE): Assessment: Marlee is admitted on ED Protocol for severe malnutrition. Following feeding plan per Adolescent Medicine and Nutrition. Plan: - see plan under ARFID problem Assessment & Plan (02/01/2020 12:10 PM FINISHER MACHINE): Assessment: Marlee is admitted on ED Protocol for severe malnutrition. Following feeding plan per Adolescent Medicine and Nutrition. Plan: - see plan under ARFID problem Assessment & Plan (01/31/2020 1:04 PM FINISHER MACHINE): Assessment: Mralee is admitted on ED Protocol for severe malnutrition. Following feeding plan per Adolescent Medicine and Nutrition. Plan: - see plan under ARFID problem Assessment & Plan (01/30/2020 10:28 AM FINISHER MACHINE): Assessment: Marlee is admitted on ED Protocol for severe malnutrition. Following feeding plan per Adolescent Medicine and Nutrition. Plan: - see plan under ARFID problem Assessment & Plan (01/28/2020 4:29 PM FINISHER MACHINE): Assessment: Malnutrition is secondary to ARFID and [...] BID Assessment & Plan (01/24/2020 11:54 AM FINISHER MACHINE): Assessment: Marlee is admitted on ED Protocol for severe malnutrition. Following feeding plan per Adolescent Medicine and Nutrition. Plan: - see plan under ARFID problem Assessment & Plan (01/23/2020 7:09 AM FINISHER MACHINE): Assessment: Marlee is admitted on ED Protocol for severe malnutrition. Following feeding plan per Adolescent Medicine and Nutrition. Plan: - see plan under ARFID problem Assessment & Plan (01/22/2020 9:48 AM FINISHER MACHINE): Assessment: Malnutrition is secondary to ARFID and [...] () Assessment & Plan (01/22/2020 7:52 AM FINISHER MACHINE): Assessment: Marlee is admitted on ED Protocol for severe malnutrition. Following feeding plan per Adolescent Medicine and Nutrition. Plan: - see plan under ARFID problem Assessment & Plan (01/21/2020 10:33 AM FINISHER MACHINE): Assessment: Malnutrition is secondary to ARFID and [...] () Assessment & Plan (01/21/2020 7:40 AM FINISHER MACHINE): Assessment: Marlee is admitted on ED Protocol for severe malnutrition. Following feeding plan per Adolescent Medicine and Nutrition. Plan: - see plan under ARFID problem Assessment & Plan (01/20/2020 7:36 AM FINISHER MACHINE): Assessment: Marlee is admitted on ED Protocol for severe malnutrition. Following feeding plan per Adolescent Medicine and Nutrition. Plan: - see plan under ARFID problem Assessment & Plan (01/19/2020 7:22 AM FINISHER MACHINE): Assessment: Marlee is admitted on ED Protocol for severe malnutrition. Following feeding plan per Adolescent Medicine and Nutrition. Plan: - see plan under ARFID problem Assessment & Plan (01/18/2020 4:25 PM FINISHER MACHINE): Assessment: Marlee Chavez is a 19 year [...] orthostatics Assessment & Plan (01/17/2020 12:38 PM FINISHER MACHINE): Assessment: Marlee Chavez is a 19 year [...] anxiety Assessment & Plan (01/16/2020 1:41 PM FINISHER MACHINE): Assessment: Marlee Chavez is a 19 year [...] anxiety Assessment & Plan (01/15/2020 8:49 PM FINISHER MACHINE): Assessment: Malnutrition is secondary to ARFID and [...] counseling. Assessment & Plan (01/15/2020 11:57 AM FINISHER MACHINE): Assessment: Marlee Chavez is a 19 year [...] anxiety Assessment & Plan (01/14/2020 1:00 PM FINISHER MACHINE): Assessment: Malnutrition is secondary to ARFID and [...] () Assessment & Plan (01/14/2020 9:54 AM FINISHER MACHINE): Assessment: Marlee Chavez is a 19 year [...] anxiety Assessment & Plan (01/13/2020 2:34 PM FINISHER MACHINE): Assessment: Marlee Chavez is a 19 year [...] anxiety Assessment & Plan (01/13/2020 12:01 PM FINISHER MACHINE): Moderate protein-calorie malnutrition Assessment: Marlee Chavez is [...] thereafter Assessment & Plan (01/12/2020 3:40 PM FINISHER MACHINE): Moderate protein-calorie malnutrition Assessment: Marlee Chavez is [...] chart) Assessment & Plan (01/12/2020 1:25 PM FINISHER MACHINE): Assessment: Marlee Chavez is a 19 year [...] anxiety Assessment & Plan (01/11/2020 11:43 AM FINISHER MACHINE): Assessment: Marlee Chavez is a 19 year [...] cysts Assessment & Plan (01/10/2020 9:32 AM FINISHER MACHINE): Assessment: Marlee Chavez is a 19 year [...] cysts Assessment & Plan (01/09/2020 11:08 AM FINISHER MACHINE): Assessment: Marlee Chavez is a 19 year [...] cysts Assessment & Plan (01/08/2020 1:32 PM FINISHER MACHINE): Assessment: Marlee Chavez is a 19 year [...] cysts Assessment & Plan (01/07/2020 2:52 PM FINISHER MACHINE): Assessment: Marlee Chavez is a 19 year [...] cysts Assessment & Plan (01/06/2020 11:27 AM FINISHER MACHINE): Assessment: Marlee Chavez is a 19 year [...] cysts Assessment & Plan (01/05/2020 3:49 PM FINISHER MACHINE): Assessment: Marlee Chavez is a 19 year [...] cysts Assessment & Plan (01/04/2020 1:53 PM FINISHER MACHINE): Assessment: Marlee Chavez is a 19 year [...] cysts Assessment & Plan (01/03/2020 12:34 AM FINISHER MACHINE): Assessment: Marlee Chavez is a 19 year [...] 03/18/2023 Assessment & Plan (01/24/2022 5:04 PM FINISHER MACHINE): Assessment: Marlee Chavez is a 20 year [...] gabapentin Assessment & Plan (01/23/2022 6:56 PM FINISHER MACHINE): Assessment: Marlee Chavez is a 20 year [...] pain Assessment & Plan (01/08/2021 3:05 PM FINISHER MACHINE): Assessment: Patient is an 20 year old [...] I&Os Assessment & Plan (01/07/2021 4:52 PM FINISHER MACHINE): Assessment: Patient is an 20 year old [...] it Assessment & Plan (01/06/2021 6:00 PM FINISHER MACHINE): Assessment: Patient is an 20 year old [...] I&Os Assessment & Plan (01/05/2021 1:27 PM FINISHER MACHINE): Assessment: Patient is an 20 year old [...] I&Os Assessment & Plan (01/04/2021 9:17 PM FINISHER MACHINE): Assessment: Patient is an 20 year old [...] I&Os Assessment & Plan (01/03/2021 8:43 PM FINISHER MACHINE): Assessment: Patient is an 20 year old [...] diet for now, will discuss need for KITYT diet tomorrow - Encourage fluids, continue mIVFs [...] wearing condom. She has upcoming appointment with molder setter next month at which time, she will be getting a IUD. Plan: -urine test today -GC, chlamydia, trichomonas testing Assessment & Plan (05/24/2020 2:43 PM CDT): Will get urine Hcg and STI testing. Mom is aware and Marlee is ok with us communicating results to her mother. Purging 03/24/2020 05/24/2020 Assessment & Plan (04/05/2020 3:23 PM FINISHER MACHINE): Assessment: Has been drinking excessive amounts of water and putting her fingers in her mouth to induce vomiting. No recorded emesis since 03/25. Plan: Will limit access to water to 250ml at a time. May only bathe once per day after she has taken her meds, had breakfast and lunch. Assessment & Plan (04/04/2020 12:58 PM FINISHER MACHINE): Assessment: Has been drinking excessive amounts of water and putting her fingers in her mouth to induce vomiting. No recorded emesis since 03/25. Plan: Will limit access to water to 250ml at a time. May only bathe once per day after she has taken her meds, had breakfast and lunch. Assessment & Plan (04/01/2020 11:55 AM FINISHER MACHINE): Assessment: Has been drinking excessive amounts of water and putting her fingers in her mouth to induce vomiting. No recorded emesis since 03/25. Plan: Will limit access to water to 250ml at a time. May only bathe once per day after she has taken her meds, had breakfast and lunch. Assessment & Plan (03/24/2020 4:53 PM FINISHER MACHINE): Assessment: Has been drinking excessive amounts of water and putting her fingers in her mouth to induce vomiting. Plan: Will limit access to water to 250ml at a time. May only bathe once per day after she has taken her meds, had breakfast and lunch. Ovarian cyst 01/12/2020 03/19/2020 Assessment & Plan (03/15/2020 11:10 AM FINISHER MACHINE): Assessment: on ultrasound on R Plan: -Radiology recommended repeat imaging in 6 months for ovarian cysts Assessment & Plan (03/04/2020 1:41 PM FINISHER MACHINE): Assessment: on ultrasound on R Plan: -Radiology recommended repeat imaging in 6 months for ovarian cysts Assessment & Plan (03/04/2020 11:50 AM FINISHER MACHINE): Assessment: on ultrasound on R Plan: -Radiology recommended repeat imaging in 6 months for ovarian cysts Assessment & Plan (02/27/2020 9:58 AM FINISHER MACHINE): Assessment: on ultrasound on R Plan: -Radiology recommended repeat imaging in 6 months for ovarian cysts Assessment & Plan (01/28/2020 11:59 AM FINISHER MACHINE): Assessment: on ultrasound on R Plan: -Radiology recommended repeat imaging in 6 months for ovarian cysts Assessment & Plan (01/27/2020 3:52 PM FINISHER MACHINE): Assessment: on ultrasound on R Plan: -Radiology recommended repeat imaging in 6 months for ovarian cysts Assessment & Plan (01/26/2020 6:01 PM FINISHER MACHINE): Assessment: on ultrasound on R Plan: -Radiology recommended repeat imaging in 6 months for ovarian cysts Assessment & Plan (01/13/2020 2:33 PM FINISHER MACHINE): Assessment: on ultrasound on R Plan: -Radiology recommended repeat imaging in 6 months for ovarian cysts Assessment & Plan (01/12/2020 1:26 PM FINISHER MACHINE): Assessment: on ultrasound on R Plan: -Radiology [...] Months Immunizations Immunization Administration Dates Next Due [employer] primary monoval ent 12+ yr 0.3mL Purple [...] Recorded Patient Health Questionnaire-2 Score 0 07/07/2024 [facility] of Occupat ional Health - Occupational Stress [...] place to sleep or slept in a jail (including now)? No 04/24/2023 Comments No Sex and Gender Information Value Date Recorded Sex Assigned at Not on file Legal Sex Female 6:25 PM FINISHER MACHINE Gender Identity Not on file Sexual Orientation [...] st Contact Info) Description 01/20/2025 8:20 AM FINISHER MACHINE Office Visit [facility] - Family Medicine [address] [place] [address] Ronel Thornton DO [address] [place] [address] Health Maintenance Due Date Last Done [...] BILL Comment: Performed at: 02 - [facility] [address] [id number] Electronics Lead: Meredith Gil MD, Phone: [phone] Performed at: 01 - [facility] [address] [id number] Electronics Lead: Meredith Gil MD, Phone: [phone] Diagnosis Comment(A) [facility] ACCOUNT BILL Comment: EPITHELIAL [...] AM CDT 11/29/2023 Comment:Cervix Release to [facility] Anu [facility] ACCOUNT BILL - 12/05/2023 5:09 PM CDT Performed at: 01 - [facility] [id number] Electronics Lead: Meredith Gil MD, Phone: [phone] Specimen Comment: [id number] Specimen Comment: Source.............Cervix Specimen Comment: No. of containers..01 ThinPrep Vial Nai Jurado MD LAB - PATHOLOGY/CYTOLOGY [place] Final Result [facility] ACCOUNT BILL [address] [place] [address] * HIV-1 HIV-2 ANTIBODY + HIV P24 [...] AM CDT Performed at: 01 - [facility] [address] [place], [place] [id number] Electronics Lead: Karlos Huffman PhD, Phone: [phone] us Nai Jurado MD LAB - CHEMISTRY ORDERABLES Fi nal Result Performing Organization Address City/[facility]/ZIP Co de Phone Number [facility] ACCOUNT BILL [address] [place] [address] * HEPATITIS C AB W/RFLX TO HCV RNA QN PCR (12/07/2021) Hepatitis C Antibody NON-REACTI VE NON-REACT [facility] Signal to Cut-Off 0.08 <1.00 [facility] Comment: HCV antibody was non-reactive. There is no laboratory evidence of HCV infection. In most cases, no further action is required. However, if recent HCV exposure is suspected, a test for HCV RNA (test code 52586) is suggested. For additional information please refer to http://education.Sqrl/faq/FPM91g2 (This link is being provided for informational/ educational purposes only.) Test Performed at: [facility] [address] [place] [address] PURVI PABLO DO,MPH Blood BLOOD SPECIMEN / Unknown 12/07/2021 12/07/2021 10:47 AM CDT us Karrie Mack MD LAB - CHEMISTRY ORDERABLES Final Result [facility] [address] [place] [address] from Last 3 Months or Most Recently Relevant to Health Maintenance Insurance [facility] Advance Directives * Full Code (Latest [...] 4:54 PM 06/22/2022 2:44 PM Care Teams Data Operations Manager Relationship Specialty Start Date End Date Ronel Thornton DO [address] [place] [address] PCP - General Family Medicine 03/18/23 Ronel Thornton DO [address] [place] [address] PCP - Attributed-[facility] 04/12/23
--- OUTSIDE RECORDS SUMMARY | 2024-09-22 07:48 | XMS_ITS | Encounter Summary ---
Author Organization [facility] Address [address] [facility] [place] [address] Care Team Providers Care Student Services Director Name Role Phone Mellissa Jiménez MD Primary Care Provider [phone] Ronel Thornton DO Primary Care Provider [phone] Daphnie Gillespie MD Unavailable Juliana Peralta DIRECTOR OF TRAINING Unavailable [phone] Juliana Peralta DIRECTOR OF TRAINING Unavailable [phone] Ronel Thornton DO Unavailable [phone] Kenyatta Taylor RN Unavailable [phone] Tiago Lew Unavailable [phone] Reason for Visit * Reason Onset Date Comments Appointment 10/05/2020 Contraceptive management 10/05/2020 Encounter Details Date Type Department Care Team (Late st Contact Info) Description 10/05/2020 Telephone [facility] [address] [place], [place] [id number] [place] [address] [place] [address] Appointment; Contraceptive management Social History Tobacco Use Types Packs/Day Years Used Date Smoking Tobacco: Never Smokeless Tobacco: Never Alcohol Use Standard Drinks/Week Comments No 0 (1 standard drink = 0.6 oz pur e alcohol) Comments No Sex and Gender Information Value Date Recorded Sex Assigned at Not on file Legal Sex Female 6:25 PM AIRPORT OPERATIONS CREW MEMBER Gender Identity Not on file Sexual Orientation [...] the office yet to get scheduled. CB# [phone] documented in this encounter Plan of Treatment Upcoming Encounters Date Type Department Care Team (Late st Contact Info) Description 01/20/2025 8:20 AM AIRPORT OPERATIONS CREW MEMBER Office Visit [facility] Family Medicine [address] [place] [address] Ronel Thornton DO [address] [place] [address] documented as of this encounter Visit Diagnoses Not on filedocumented in this encounter Additional Health Concerns Infection Onset Date Last Indicated Resolved Time COVID-19 Under Investigation 08/10/2021 08/10/2021 08/10/2021 2:59 AM CDT documented as of this encounter Care Teams Student Services Director Relationship Specialty Start Date End Date Mellissa Jiménez MD [address] [place] [address] [place] [address] PCP - General Family Medicine 04/25/20 03/17/23 Ronel Thornton DO [address] [place] [address] PCP - General Family Medicine 03/18/23 [place] [address] [place] [phone] PCP - Attributed-[facility] 02/11/23 04/11/23 Ronel Thornton DO [address] [place] [address] PCP - Attributed-[facility] 04/12/23 Juliana Peralta MSW Outpatient Mechanical Energy Engineer Care Management 04/24/2304/11 Juliana Peralta MSW Outpatient Mechanical Energy Engineer Care Management 04/30/2304/12 Kenyatta Taylor RN [address] [address] Sheriffs DetectiveSash Repairer 09/02/23 10/04/23 Tiago Lew Care Coordination Specialist Care Management 09/26/23 11/10/23 documented as of this encounter
--- OUTSIDE RECORDS SUMMARY | 2024-09-22 07:48 | XMS_ITS | Encounter Summary ---
Author Organization [facility] Address [address] [facility] [place] [address] Care Team Providers Care Seafood Team Member Name Role Phone Mellissa Jiménez MD Primary Care Provider [phone] Ronel Thornton DO Primary Care Provider [phone] Daphnie Gillespie MD Unavailable Juliana Peralta PICKLE PUMPER Unavailable [phone] Juliana Peralta PICKLE PUMPER Unavailable [phone] Ronel Thornton DO Unavailable [phone] Kenyatta Taylor RN Unavailable [phone] Tiago Lew Unavailable [phone] Reason for Visit * Reason Onset Date Comments Eating disorder 08/04/2020 Encounter Details Date Type Department Care Team (Late st Contact Info) Description 08/04/2020 Telephone [facility] Neurological Physiotherapist [address] [place] [address] Flor Martinez, ADHESION TESTER Eating disorder Social History Tobacco Use Types Packs/Day Years Used Date Smoking Tobacco: Never Smokeless Tobacco: Never Alcohol Use Standard Drinks/Week Comments No 0 (1 standard drink = 0.6 oz pur e alcohol) Comments No Sex and Gender Information Value Date Recorded Sex Assigned at Not on file Legal Sex Female 6:25 PM POURER Gender Identity Not on file Sexual Orientation [...] phone calls with Kenyatta's mother Esperanza and [facility] this week regarding Kenyatta's relapse, and mother's belief that she needs to be admitted to [facility]. Spoke with mother again this a.m, and they have a phone intake assessment with [facility] next SaturdayAugust 08. documented in this encounter Plan of Treatment Upcoming Encounters Date Type Department Care Team (Late st Contact Info) Description 01/20/2025 8:20 AM POURER Office Visit [facility] - Family Medicine [address] [place] [address] Ronel Thornton DO [address] [place] [address] documented as of this encounter Visit Diagnoses Not on filedocumented in this encounter Additional Health Concerns Infection Onset Date Last Indicated Resolved Time COVID-19 Under Investigation 08/10/2021 08/10/2021 08/10/2021 2:59 AM CDT documented as of this encounter Care Teams Seafood Team Member Relationship Specialty Start Date End Date Mellissa Jiménez MD [address] [place] [address] [place] [address] PCP - General Family Medicine 04/25/20 03/17/23 Ronel Thornton DO [address] [place] [address] PCP - General Family Medicine 03/18/23 Daphnie Gillespie MD [address] [place] [address] PCP - Attributed-[facility] 02/11/23 04/11/23 Ronel Thornton DO [address] [place] [address] PCP - Attributed-[facility] ST[facility] 04/12/23 Juliana Peralta MSW Outpatient Photovoltaic Subcontractor Care Management 04/24/2304/11 Juliana Peralta MSW Outpatient Photovoltaic Subcontractor Care Management 04/30/2304/12 Kenyatta Taylor RN [address] [address] Quality Assurance Project ManagerDetention Sergeant 09/02/23 10/04/23 Tiago Lew Care Coordination Specialist Care Management 09/26/23 11/10/23 documented as of this encounter
--- OUTSIDE RECORDS SUMMARY | 2024-09-22 07:48 | XMS_ITS | Clinical Summary ---
Author Organization [facility] Address [address] [place] [address] Phone Care Team Providers Care Fast Food Worker Name Role Phone Mellissa Jiménez MD [...] on file Legal Sex Female 10:44 PM BILLIARD PLAYER Gender Identity Not on file Sexual Orientation [...] 52.2 kg (115 lb) 04/20/2023 2:30 AM BILLIARD PLAYER Height 152.4 cm (5') 04/20/2023 2:30 AM BILLIARD PLAYER Body Mass Index 22.46 04/20/2023 2:30 AM BILLIARD PLAYER Plan of Treatment Health Maintenance Due Date [...] 02/22/2003, Additional history exists [place] [address] [facility] [id number] OUT OF NETWORK Advance Directives For more information, please contact: [phone] * Full Code (Latest Code Status on File) Date Activated Date Inactivated Comments 04/20/2023 2:32 AM 04/21/2023 4:11 PM Care Teams Fast Food Worker Relationship Specialty Start Date End Date Mellissa Jiménez MD [address] [place] [phone] PCP - General Family Practice 04/20/23
[2024-09-22] MEDS: PROCHLORPERAZINE EDISYLATE 10 MG/2 ML VIAL IM (08:50)
[2024-09-22 08:51] VITALS: BP 103/66; PULSE 80; RESP 17; O2SAT 99
[2024-09-22 09:33] VITALS: BP 112/79; PULSE 86; RESP 16; O2SAT 99
== END 2024-09-22 09:36 | disposition home or self-care (01) ==
PROVIDERS: Emergency Provider Emergency Medicine
DX: F41.9 Anxiety disorder, unspecified (principal)
CPT/HCPCS: 96372; 99284; J0780; J2060

== ENCOUNTER 2024-09-22 17:29 | Observation (INO) | payer SELFPAY ==
--- NOTE | ~2024-09-22 | CT_ITS ---
CLINICAL INDICATION: Abdominal pain, nausea, vomiting and leukocytosis COMPARISON: 07/27/2024. TECHNIQUE: Multiple contiguous axial images of the abdomen and pelvis were performed following the ad ministration of with 100 mL Omnipaque-350 intravenous contrast The dose-length product (DLP) was 171.21 mGy-cm. Automated exposure control and iterative reconstruction technique were employed. FINDINGS/OBSERVATIONS: Visualized lower thorax: The bilateral lung bases are clear. The heart is of normal size, without pericardial effusion. Small hiatal hernia is present. Liver: The liver demonstrates homogeneous enhancement and is not enlarged. Gallbladder and biliary system: The gallbladder is only minimally distended, and otherwise unremarkable. Pancreas: The pancreas enhances homogeneously without ductal dilatation. Spleen: The spleen enhances homogeneously and is not enlarged. Kidneys: The bilateral kidneys enhance symmetrically without hydronephrosis or renal calculi. Adrenal glands: Unremarkable. Gastrointestinal tract: Edematous mural thickening within the transverse and descending colon extending to the rectum, findin gs consistent with a diffuse enteritis for which clinical correlation is needed. Appendix: The air-filled appendix is of normal caliber (axial series, images 113 - 118). Vasculature: Unremarkable. Lymph nodes: No pathologically enlarged or morphologically suspicious lymph nodes within the retroperitoneum or at the root of the mesentery. Pelvic structures: The bladder is only minimally distended, and otherwise unremarkable. The uterus is retroverted and retroflexed. Intrauterine device is present. Body wall and musculoskeletal: No significant degenerative disease within the lower thoracic or lumbosacral spine. IMPRESSION: Findings suggesting a diffuse enteritis from the level of proximal transverse colon to the rectum. Reviewed, dictated and finalized at location A. IMPRESSION: Findings suggesting a diffuse enteritis from the level of proximal transverse c olon to the rectum.
--- OUTSIDE RECORDS SUMMARY | 2024-09-22 17:30 | XMS_ITS | Encounter Summary ---
Author Organization [facility] Address [address] [place] [address] Care Team Providers Care Radio Sportscaster Name Role Phone Mellissa Jiménez MD Primary Care Provider [phone] Ronel Thornton DO Primary Care Provider Daphnie Gillespie MD Unavailable Juliana Peralta PAMPHLET DISTRIBUTOR Unavailable [phone] Juliana Peralta PAMPHLET DISTRIBUTOR Unavailable [phone] Ronel Thornton DO Unavailable [phone] Kenyatta Taylor RN Unavailable Tiago Lew Unavailable [phone] Reason for Visit * Reason Onset Date Comments Forms/questionnaires 01/23/2021 Encounter Details Date Type Department Care Team (Late st Contact Info) Description 01/23/2021 Telephone [facility] Pediatrics - Surgery [address] [place] [id number] Daphnie Gillespie MD [address] [place] [phone] Forms/questionnaires Social History Tobacco Use Types [...] on file Legal Sex Female 6:25 PM ENVIRONMENTAL RESEARCH SCIENTIST Gender Identity Not on file Sexual Orientation Not on file COVID-19 Exposure Response Date Recorded In the last month, have you been in contact with someone who was confirmed or suspected to have Coronavirus / COVID-19? No / Unsure 01/24/2021 11:47 AM ENVIRONMENTAL RESEARCH SCIENTIST documented as of this encounter Functional [...] wanted to know if it was received. RONMENTAL RESEARCH SCIENTIST documented in this encounter Plan of Treatment Upcoming Encounters Date Type Department Care Team (Late st Contact Info) Description 01/20/2025 8:20 AM ENVIRONMENTAL RESEARCH SCIENTIST Office Visit [facility] - Family Medicine [address] [place] [address] [phone] Ronel Thornton DO [address] [place] [address] [phone] documented as of this encounter Visit Diagnoses Not on filedocumented in this encounter Additional Health Concerns Infection Onset Date Last Indicated Resolved Time COVID-19 Under Investigation 08/10/2021 08/10/2021 08/10/2021 2:59 AM CDT documented as of this encounter Care Teams Radio Sportscaster Relationship Specialty Start Date End Date Mellissa Jiménez MD [address] [place] [address] [place] [phone] PCP - General Family Medicine 04/25/20 03/17/23 Ronel Thornton DO [address] [place] [phone] PCP - General Family Medicine 03/18/23 Daphnie Gillespie MD [address] [place] [phone] PCP - Attributed-[facility] 02/11/23 04/11/23 Ronel Thornton DO [address] [place] [phone] PCP - Attributed-[facility] 04/12/23 Juliana Peralta MSW Outpatient Director Selection And Administration Care Management 04/24/2304/11 Juliana Peralta MSW Outpatient Director Selection And Administration Care Management 04/30/2304/12 Kenyatta Taylor RN [phone] [phone] Import ClerkCalender Machine Operator 09/02/23 10/04/23 Tiago Lew Care Coordination Specialist Care Management 09/26/23 11/10/23 documented as of this encounter
--- OUTSIDE RECORDS SUMMARY | 2024-09-22 17:31 | XMS_ITS | Clinical Summary ---
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 This disclosure is being madepursuant to the Care Everywhere program and may not contain all information available regarding this patient. Last updated 17.[facility] [employer] Allergies No known active allergies Medications * [...] 01/18/2020 Assessment & Plan (01/08/2021 3:06 PM MANAGER ORACLE): Assessment: Major depressive disorder, generalized anxiety disorder and substance abuse disorder. Plan: - klonopin and neurontin are all habit forming, concerns they are addictive, plan to discuss emt intermediate goal of weaning as outpatient - must stop all alcohol and MJ - Increased Prozac to 40 - Increased zyprexa to 15 - Melatonin 6mg QHS for sleep - avoid narcotics - taper off zyprexa as outpatient per psychiatry recs Assessment & Plan (01/07/2021 4:50 PM MANAGER ORACLE): Assessment: Major depressive disorder, generalized anxiety disorder and substance abuse disorder. Plan: - klonopin and neurontin are all habit forming, concerns they are addictive, plan to discuss shelter goal of weaning as outpatient - must stop all alcohol and MJ - Increased Prozac to 40 - Increased zyprexa to 15 - Melatonin 6mg QHS for sleep - avoid narcotics - taper off zyprexa as outpatient per psychiatry recs Assessment & Plan (01/06/2021 5:55 PM MANAGER ORACLE): Assessment: Major depressive disorder, generalized anxiety disorder and substance abuse disorder. Plan: - klonopin and neurontin are all habit forming, concerns they are addictive, plan to discuss shelter goal of weaning as outpatient - must [...] slowly. Assessment & Plan (04/07/2020 6:45 PM MANAGER ORACLE): Assessment: Hx of major depressive disorder and generalized anxiety disorder. Pt has been seen by psychiatry and psychology, now improved since starting/optimizing zyprexa QHS, clonazepam TID, and prozac QD. Plan: - Prozac 30 mg QD (dose of 30 mg started on 03/09/20, Prozac initially began 02/07) - Zyprexa 5 mg QHS - Klonopin 0.5mg TID Assessment & Plan (04/06/2020 3:54 PM MANAGER ORACLE): Assessment: Hx of major depressive disorder and [...] TID Assessment & Plan (04/05/2020 10:49 AM MANAGER ORACLE): Assessment: Hx of major depressive disorder and [...] TID Assessment & Plan (04/04/2020 10:23 AM MANAGER ORACLE): Assessment: Hx of major depressive disorder and [...] TID Assessment & Plan (04/03/2020 6:30 PM MANAGER ORACLE): Assessment: Hx of major depressive disorder and [...] TID Assessment & Plan (04/01/2020 11:15 AM MANAGER ORACLE): Assessment: Hx of major depressive disorder and [...] dose) Assessment & Plan (03/31/2020 10:07 AM MANAGER ORACLE): Assessment: Hx of major depressive disorder and [...] dose) Assessment & Plan (03/30/2020 2:24 PM MANAGER ORACLE): Assessment: Hx of major depressive disorder and [...] dose) Assessment & Plan (03/29/2020 6:50 AM MANAGER ORACLE): Assessment: Hx of major depressive disorder and [...] dose) Assessment & Plan (03/27/2020 10:30 AM MANAGER ORACLE): Assessment: Hx of major depressive disorder and generalized anxiety disorder. Pt seen by psychiatry on admission and was started elavil, but continued to have anxiety. Elavil was discontinued due to persistent tachycardia and hypotension. [facility], she was started on zyprexa QHS, [...] dose) Assessment & Plan (03/26/2020 11:15 AM MANAGER ORACLE): Assessment: Hx of major depressive disorder and [...] dose) Assessment & Plan (03/25/2020 8:58 AM MANAGER ORACLE): Assessment: Hx of major depressive disorder and [...] dose) Assessment & Plan (03/24/2020 6:44 AM MANAGER ORACLE): Assessment: Hx of major depressive disorder and [...] dose) Assessment & Plan (03/23/2020 12:19 PM MANAGER ORACLE): Assessment: Hx of major depressive disorder and [...] dose) Assessment & Plan (03/22/2020 10:47 AM MANAGER ORACLE): Assessment: Hx of major depressive disorder and [...] recommendations) Assessment & Plan (03/21/2020 3:11 PM MANAGER ORACLE): Assessment: Hx of major depressive disorder and [...] mg. Assessment & Plan (03/20/2020 10:31 AM MANAGER ORACLE): Assessment: Hx of major depressive disorder and generalized anxiety disorder. Pt seen by psychiatry on admission and was started elavil, but continued to have anxiety. Elavil was discontinued due to persistent tachycardia and hypotension. [facility], she was started on zyprexa [...] 03/21. Assessment & Plan (03/19/2020 10:38 AM MANAGER ORACLE): Assessment: Hx of major depressive disorder and [...] withdrawal Assessment & Plan (03/18/2020 12:58 PM MANAGER ORACLE): Assessment: Hx of major depressive disorder and [...] anxiety Assessment & Plan (03/17/2020 10:33 AM MANAGER ORACLE): Assessment: Hx of major depressive disorder and [...] appreciated Assessment & Plan (03/16/2020 2:24 PM MANAGER ORACLE): Assessment: Hx of major depressive disorder and [...] recommendations Assessment & Plan (03/15/2020 11:11 AM MANAGER ORACLE): Assessment: Hx of major depressive disorder and [...] anxiety Assessment & Plan (03/14/2020 6:28 AM MANAGER ORACLE): Assessment: Hx of major depressive disorder and [...] anxiety Assessment & Plan (03/13/2020 6:28 AM MANAGER ORACLE): Assessment: Hx of major depressive disorder and [...] anxiety Assessment & Plan (03/12/2020 11:35 AM MANAGER ORACLE): Assessment: Hx of major depressive disorder and [...] anxiety Assessment & Plan (03/11/2020 12:43 PM MANAGER ORACLE): Assessment: Hx of major depressive disorder and [...] anxiety Assessment & Plan (03/10/2020 6:11 AM MANAGER ORACLE): Assessment: Hx of major depressive disorder and [...] anxiety Assessment & Plan (03/09/2020 6:24 AM MANAGER ORACLE): Assessment: Hx of major depressive disorder and [...] anxiety Assessment & Plan (03/08/2020 10:51 AM MANAGER ORACLE): Assessment: Hx of major depressive disorder and [...] anxiety Assessment & Plan (03/07/2020 9:15 AM MANAGER ORACLE): Assessment: Hx of major depressive disorder and [...] -Develop daily schedule with assistance of child attendant-Alma Assessment & Plan (03/06/2020 10:09 AM MANAGER ORACLE): Assessment: Hx of major depressive disorder and [...] anxiety Assessment & Plan (03/05/2020 9:56 AM MANAGER ORACLE): Assessment: Hx of major depressive disorder and [...] anxiety Assessment & Plan (03/04/2020 12:58 PM MANAGER ORACLE): Assessment: Hx of major depressive disorder and [...] anxiety Assessment & Plan (03/03/2020 3:16 PM MANAGER ORACLE): Assessment: Hx of major depressive disorder and [...] anxiety Assessment & Plan (03/01/2020 12:04 PM MANAGER ORACLE): Assessment: Hx of major depressive disorder and [...] anxiety Assessment & Plan (02/29/2020 12:53 PM MANAGER ORACLE): Assessment: Hx of major depressive disorder and [...] anxiety Assessment & Plan (02/28/2020 9:22 AM MANAGER ORACLE): Assessment: Hx of major depressive disorder and [...] anxiety Assessment & Plan (02/27/2020 10:27 AM MANAGER ORACLE): Assessment: Hx of major depressive disorder and [...] negative Assessment & Plan (02/26/2020 11:12 AM MANAGER ORACLE): Assessment: Hx of major depressive disorder and [...] pending Assessment & Plan (02/25/2020 9:33 AM MANAGER ORACLE): Assessment: Hx of major depressive disorder and [...] pending Assessment & Plan (02/24/2020 6:51 AM MANAGER ORACLE): Assessment: Hx of major depressive disorder and [...] pending Assessment & Plan (02/23/2020 10:19 AM MANAGER ORACLE): Assessment: Hx of major depressive disorder and [...] pending Assessment & Plan (02/22/2020 11:07 AM MANAGER ORACLE): Assessment: Hx of major depressive disorder and [...] QHS Assessment & Plan (02/21/2020 10:54 AM MANAGER ORACLE): Assessment: History of major depressive disorder and [...] tablet Assessment & Plan (02/20/2020 11:33 AM MANAGER ORACLE): Assessment: History of major depressive disorder and [...] tablet Assessment & Plan (02/19/2020 3:05 PM MANAGER ORACLE): Assessment: History of major depressive disorder and [...] tablet Assessment & Plan (02/18/2020 10:13 AM MANAGER ORACLE): Assessment: History of major depressive disorder and [...] tablet Assessment & Plan (02/17/2020 12:26 PM MANAGER ORACLE): Assessment: History of major depressive disorder and [...] tablet Assessment & Plan (02/16/2020 1:14 PM MANAGER ORACLE): Assessment: History of major depressive disorder and [...] tablet Assessment & Plan (02/15/2020 12:31 PM MANAGER ORACLE): Assessment: History of major depressive disorder and [...] tablet Assessment & Plan (02/14/2020 2:24 PM MANAGER ORACLE): Assessment: History of major depressive disorder and [...] tablet Assessment & Plan (02/13/2020 12:00 PM MANAGER ORACLE): Assessment: History of major depressive disorder and [...] tablet Assessment & Plan (02/12/2020 11:20 AM MANAGER ORACLE): Assessment: History of major depressive disorder and [...] tablet Assessment & Plan (02/11/2020 11:54 AM MANAGER ORACLE): Assessment: History of major depressive disorder and [...] tablet Assessment & Plan (02/10/2020 12:09 PM MANAGER ORACLE): Assessment: History of major depressive disorder and [...] tablet Assessment & Plan (02/09/2020 11:50 AM MANAGER ORACLE): Assessment: History of major depressive disorder and [...] [place] Assessment & Plan (02/08/2020 12:54 PM MANAGER ORACLE): Assessment: History of major depressive disorder and [...] [place] Assessment & Plan (02/07/2020 11:47 AM MANAGER ORACLE): Assessment: History of major depressive disorder and [...] [place] Assessment & Plan (02/06/2020 8:12 AM MANAGER ORACLE): Assessment: History of major depressive disorder and [...] [place] Assessment & Plan (02/05/2020 9:12 AM MANAGER ORACLE): Assessment: History of major depressive disorder and [...] [place] Assessment & Plan (02/04/2020 12:43 PM MANAGER ORACLE): Assessment: History of major depressive disorder and [...] [place] Assessment & Plan (02/03/2020 2:28 PM MANAGER ORACLE): Assessment: History of major depressive disorder and [...] [place] Assessment & Plan (02/02/2020 4:02 PM MANAGER ORACLE): Assessment: History of major depressive disorder and [...] [place] Assessment & Plan (02/01/2020 12:12 PM MANAGER ORACLE): Assessment: History of major depressive disorder and [...] [place] Assessment & Plan (01/31/2020 1:04 PM MANAGER ORACLE): Assessment: History of major depressive disorder and [...] [place] Assessment & Plan (01/30/2020 10:30 AM MANAGER ORACLE): Assessment: History of major depressive disorder and [...] [place] Assessment & Plan (01/29/2020 9:40 PM MANAGER ORACLE): Assessment: History of major depressive disorder and [...] [place] Assessment & Plan (01/28/2020 11:59 AM MANAGER ORACLE): Assessment: History of major depressive disorder and [...] lunch Assessment & Plan (01/27/2020 3:57 PM MANAGER ORACLE): Assessment: History of major depressive disorder and [...] lunch Assessment & Plan (01/26/2020 6:01 PM MANAGER ORACLE): Assessment: History of major depressive disorder and [...] [place] Assessment & Plan (01/25/2020 2:56 PM MANAGER ORACLE): Assessment: History of major depressive disorder and [...] PO. Assessment & Plan (01/24/2020 8:11 AM MANAGER ORACLE): Assessment: History of major depressive disorder and [...] (02/22/20) Assessment & Plan (01/23/2020 7:09 AM MANAGER ORACLE): Assessment: History of major depressive disorder and [...] (02/22/20) Assessment & Plan (01/22/2020 7:52 AM MANAGER ORACLE): Assessment: History of major depressive disorder and [...] (02/22/20) Assessment & Plan (01/21/2020 7:40 AM MANAGER ORACLE): Assessment: History of major depressive disorder and [...] (02/22/20) Assessment & Plan (01/20/2020 7:36 AM MANAGER ORACLE): Assessment: History of major depressive disorder and [...] (02/22/20) Assessment & Plan (01/19/2020 7:22 AM MANAGER ORACLE): Assessment: History of major depressive disorder and [...] (02/22/20) Assessment & Plan (01/18/2020 4:35 PM MANAGER ORACLE): Assessment: History of major depressive disorder and [...] range. Assessment & Plan (04/08/2020 1:31 PM MANAGER ORACLE): Assessment: Malnutrition is secondary to ARFID, SMA [...] PT Assessment & Plan (04/07/2020 2:52 PM MANAGER ORACLE): Assessment: Malnutrition is secondary to ARFID, SMA [...] PT Assessment & Plan (04/07/2020 6:44 PM MANAGER ORACLE): Assessment: Marlee is a 19 year old [...] follow up with adolescent medicine on 04/18, [facility] on 05/02, and and scheduling Psych intake visit SOCIAL: - General medicine team spoke with and updated mother on 04/06 LABS: daily urine spec gravity, BMP/Mg/Phos Q / Assessment & Plan (04/06/2020 6:45 PM MANAGER ORACLE): Assessment: Marlee is a 19 year old [...] / Assessment & Plan (04/05/2020 3:22 PM MANAGER ORACLE): Assessment: Malnutrition is secondary to ARFID, SMA [...] PT Assessment & Plan (04/05/2020 10:49 AM MANAGER ORACLE): Assessment: Marlee is a 19 year old [...] T/ Assessment & Plan (04/04/2020 3:59 PM MANAGER ORACLE): Assessment: Malnutrition is secondary to ARFID, SMA [...] daily Assessment & Plan (04/04/2020 10:21 AM MANAGER ORACLE): Assessment: Marlee is a 19 year old [...] / Assessment & Plan (04/03/2020 12:59 PM MANAGER ORACLE): Assessment: Marlee is a 19 year old [...] daily Assessment & Plan (04/02/2020 4:19 PM MANAGER ORACLE): Assessment: Marlee is a 19 year old [...] daily Assessment & Plan (04/01/2020 11:55 AM MANAGER ORACLE): Assessment: Malnutrition is secondary to ARFID and [...] daily Assessment & Plan (04/01/2020 11:15 AM MANAGER ORACLE): Assessment: Marlee is a 19 year old [...] daily Assessment & Plan (03/31/2020 12:05 PM MANAGER ORACLE): Assessment: Malnutrition is secondary to ARFID and [...] daily Assessment & Plan (03/31/2020 10:06 AM MANAGER ORACLE): Assessment: Marlee is a 19 year old [...] daily Assessment & Plan (03/30/2020 2:24 PM MANAGER ORACLE): Assessment: Marlee is a 19 year old [...] daily Assessment & Plan (03/29/2020 10:40 AM MANAGER ORACLE): Assessment: Marlee is a 19 year old [...] allowed in room. May have water from [employer] cup. Oral fluids limited to 250 mL [...] daily Assessment & Plan (03/28/2020 12:29 PM MANAGER ORACLE): Assessment: Marlee is a 19 year old [...] daily Assessment & Plan (03/27/2020 10:34 AM MANAGER ORACLE): Assessment: Marlee is a 19 year old [...] night 03/27: Increase to 50 mL/hr tonight. [facility] is aware of increase but [...] daily Assessment & Plan (03/26/2020 11:20 AM MANAGER ORACLE): Assessment: Marlee is a 19 year old [...] daily Assessment & Plan (03/25/2020 12:30 PM MANAGER ORACLE): Assessment: Marlee is a 19 year old [...] daily Assessment & Plan (03/24/2020 5:02 PM MANAGER ORACLE): Assessment: Malnutrition is secondary to ARFID and [...] anxiety Assessment & Plan (03/24/2020 11:19 AM MANAGER ORACLE): Assessment: Marlee is a 19 year old [...] nausea/vomiting - Per discussion with multi-disciplinary team, Malree [...] allowed in room. May have water from [employer] cup. - May take shower while sitting [...] daily Assessment & Plan (03/23/2020 12:20 PM MANAGER ORACLE): Assessment: Marlee is a 19 year old [...] daily Assessment & Plan (03/22/2020 12:20 PM MANAGER ORACLE): Assessment: Marlee is a 19 year old [...] daily Assessment & Plan (03/21/2020 3:10 PM MANAGER ORACLE): Assessment: Marlee is a 19 year old [...] 03/15/2020. Assessment & Plan (03/20/2020 10:32 AM MANAGER ORACLE): Assessment: Marlee is a 19 year old [...] 03/15/2020. Assessment & Plan (03/19/2020 10:37 AM MANAGER ORACLE): Assessment: Marlee is a 19 year old [...] 03/15/2020. Assessment & Plan (03/18/2020 1:00 PM MANAGER ORACLE): Assessment: Marlee is a 19 year old [...] 03/15/2020. Assessment & Plan (03/17/2020 10:36 AM MANAGER ORACLE): Assessment: Marlee is a 19 year old [...] 03/15/2020. Assessment & Plan (03/16/2020 2:10 PM MANAGER ORACLE): Assessment: Marlee is a 19 year old [...] 03/15/2020. Assessment & Plan (03/15/2020 11:10 AM MANAGER ORACLE): Assessment: Marlee is a 19 year old [...] 03/15/2020 Assessment & Plan (03/14/2020 9:53 AM MANAGER ORACLE): Assessment: Marlee is a 19 year old [...] 03/15/2020 Assessment & Plan (03/13/2020 9:39 AM MANAGER ORACLE): Assessment: Marlee is a 19 year old [...] week Assessment & Plan (03/12/2020 11:35 AM MANAGER ORACLE): Assessment: Marlee is a 19 year old [...] week Assessment & Plan (03/11/2020 12:43 PM MANAGER ORACLE): Assessment: Marlee is a 19 year old [...] week Assessment & Plan (03/10/2020 9:12 AM MANAGER ORACLE): Assessment: Marlee is a 19 year old [...] in Assessment & Plan (03/09/2020 10:22 AM MANAGER ORACLE): Assessment: Marlee is a 19 year old [...] in Assessment & Plan (03/08/2020 10:52 AM MANAGER ORACLE): Assessment: aMrlee is a 19 year old [...] in Assessment & Plan (03/07/2020 9:18 AM MANAGER ORACLE): Assessment: Marlee is a 19 year old [...] in Assessment & Plan (03/06/2020 10:09 AM MANAGER ORACLE): Assessment: Marlee is a 19 year old [...] in Assessment & Plan (03/05/2020 9:56 AM MANAGER ORACLE): Assessment: Marlee is a 19 year old [...] in Assessment & Plan (03/04/2020 12:58 PM MANAGER ORACLE): Assessment: Marlee is a 19 year old [...] A/P Assessment & Plan (03/03/2020 3:15 PM MANAGER ORACLE): Assessment: Marlee is a 19 year old [...] A/P Assessment & Plan (03/02/2020 12:06 PM MANAGER ORACLE): Assessment: Marlee is a 19 year old [...] A/P Assessment & Plan (03/01/2020 12:05 PM MANAGER ORACLE): Assessment: Marlee is a 19 year old [...] A/P Assessment & Plan (02/29/2020 12:52 PM MANAGER ORACLE): Assessment: Marlee is a 19 year old [...] A/P Assessment & Plan (02/28/2020 9:12 AM MANAGER ORACLE): Assessment: Marlee is a 19 year old [...] A/P Assessment & Plan (02/27/2020 10:03 AM MANAGER ORACLE): Assessment: Marlee is a 19 year old [...] A/P Assessment & Plan (02/26/2020 11:12 AM MANAGER ORACLE): Assessment: Marlee is a 19 year old [...] A/P Assessment & Plan (02/25/2020 9:32 AM MANAGER ORACLE): Assessment: Marlee is a 19 year old [...] A/P Assessment & Plan (02/24/2020 10:42 AM MANAGER ORACLE): Assessment: Marlee is a 19 year old [...] A/P Assessment & Plan (02/23/2020 10:22 AM MANAGER ORACLE): Assessment: Marlee is a 19 year old [...] A/P Assessment & Plan (02/22/2020 11:25 AM MANAGER ORACLE): Assessment: Marlee is a 19 year old [...] A/P Assessment & Plan (02/21/2020 10:54 AM MANAGER ORACLE): Assessment: Marlee is a 19 year old [...] A/P Assessment & Plan (02/20/2020 11:31 AM MANAGER ORACLE): Assessment: Marlee is a 19 year old [...] A/P Assessment & Plan (02/19/2020 3:04 PM MANAGER ORACLE): Assessment: Marlee is a 19 year old [...] TPN. Assessment & Plan (02/18/2020 10:14 AM MANAGER ORACLE): Assessment: Mralee is a 19 year old [...] Sat) Assessment & Plan (02/17/2020 12:30 PM MANAGER ORACLE): Assessment: Marlee is a 19 year old [...] pending Assessment & Plan (02/16/2020 2:29 PM MANAGER ORACLE): Assessment: Marlee is a 19 year old [...] pending Assessment & Plan (02/15/2020 12:33 PM MANAGER ORACLE): Assessment: Marlee is a 19 year old [...] pending Assessment & Plan (02/14/2020 2:23 PM MANAGER ORACLE): Assessment: Marlee is a 19 year old [...] pending Assessment & Plan (02/13/2020 11:59 AM MANAGER ORACLE): Assessment: Marlee is a 19 year old [...] pending Assessment & Plan (02/12/2020 11:49 AM MANAGER ORACLE): Assessment: Marlee is a 19 year old [...] recs Assessment & Plan (02/11/2020 11:56 AM MANAGER ORACLE): Assessment: Marlee is a 19 year old [...] recs Assessment & Plan (02/10/2020 12:11 PM MANAGER ORACLE): Assessment: Marlee is a 19 year old [...] SG) Assessment & Plan (02/09/2020 11:49 AM MANAGER ORACLE): Assessment: Marlee is a 19 year old [...] SG) Assessment & Plan (02/08/2020 12:54 PM MANAGER ORACLE): Assessment: Marlee is a 19 year old [...] recs. Assessment & Plan (02/07/2020 12:06 PM MANAGER ORACLE): Assessment: Marlee is a 19 year old [...] SG) Assessment & Plan (02/06/2020 8:12 AM MANAGER ORACLE): Assessment: Marlee is a 19 year old [...] SG) Assessment & Plan (02/05/2020 9:12 AM MANAGER ORACLE): Assessment: Marlee is a 19 year old [...] TG) Assessment & Plan (02/04/2020 12:52 PM MANAGER ORACLE): Assessment: Marlee is a 19 year old [...] TG) Assessment & Plan (02/03/2020 2:38 PM MANAGER ORACLE): Assessment: Marlee is a 19 year old [...] TG) Assessment & Plan (02/02/2020 4:02 PM MANAGER ORACLE): Assessment: Marlee is a 19 year old [...] QOD Assessment & Plan (02/01/2020 12:08 PM MANAGER ORACLE): Assessment: Marlee is a 19 year old [...] RBCs. Assessment & Plan (01/31/2020 1:05 PM MANAGER ORACLE): Assessment: Marlee is a 19 year old [...] hematuria Assessment & Plan (01/30/2020 10:30 AM MANAGER ORACLE): Assessment: Marlee is a 19 year old [...] 10.2 Assessment & Plan (01/29/2020 9:39 PM MANAGER ORACLE): Assessment: Marlee is a 19 year old [...] syndrome Assessment & Plan (01/28/2020 11:59 AM MANAGER ORACLE): Assessment: Marlee is a 19 year old [...] QOD Assessment & Plan (01/27/2020 3:59 PM MANAGER ORACLE): Assessment: Marlee is a 19 year old [...] QOD Assessment & Plan (01/26/2020 5:14 PM MANAGER ORACLE): Assessment: Marlee is a 19 year old [...] QOD Assessment & Plan (01/25/2020 2:58 PM MANAGER ORACLE): Assessment: Marlee is a 19 year old [...] QOD Assessment & Plan (01/24/2020 11:54 AM MANAGER ORACLE): Assessment: Marlee is a 19 year old [...] orthostatics Assessment & Plan (01/23/2020 7:09 AM MANAGER ORACLE): Assessment: Marlee is a 19 year old [...] orthostatics Assessment & Plan (01/22/2020 4:25 PM MANAGER ORACLE): Assessment: Marlee is a 19 year old [...] orthostatics Assessment & Plan (01/21/2020 8:15 AM MANAGER ORACLE): Assessment: Marlee Chavez is a 19 year [...] orthostatics Assessment & Plan (01/20/2020 7:36 AM MANAGER ORACLE): Assessment: Marlee Chavez is a 19 year [...] orthostatics Assessment & Plan (01/19/2020 7:20 AM MANAGER ORACLE): Assessment: Marlee Chavez is a 19 year [...] orthostatics Assessment & Plan (01/18/2020 4:30 PM MANAGER ORACLE): Assessment: Marlee Chavez is a 19 year [...] consult Assessment & Plan (03/27/2020 10:35 AM MANAGER ORACLE): Assessment: Marlee is admitted on ED Protocol for severe malnutrition. Following feeding plan per Adolescent Medicine and Nutrition. Plan: - see plan under ARFID problem Assessment & Plan (03/26/2020 11:20 AM MANAGER ORACLE): Assessment: Marlee is admitted on ED Protocol for severe malnutrition. Following feeding plan per Adolescent Medicine and Nutrition. Plan: - see plan under ARFID problem Assessment & Plan (03/24/2020 11:19 AM MANAGER ORACLE): Assessment: Marlee is admitted on ED Protocol for severe malnutrition. Following feeding plan per Adolescent Medicine and Nutrition. Plan: - see plan under ARFID problem Assessment & Plan (03/23/2020 9:00 AM MANAGER ORACLE): Assessment: Marlee is admitted on ED Protocol for severe malnutrition. Following feeding plan per Adolescent Medicine and Nutrition. Plan: - see plan under ARFID problem Assessment & Plan (03/22/2020 12:21 PM MANAGER ORACLE): Assessment: Marlee is admitted on ED Protocol for severe malnutrition. Following feeding plan per Adolescent Medicine and Nutrition. Plan: - see plan under ARFID problem Assessment & Plan (03/17/2020 4:26 PM MANAGER ORACLE): Assessment: Malnutrition is secondary to ARFID and [...] anxiety Assessment & Plan (03/15/2020 11:10 AM MANAGER ORACLE): Assessment: Marlee is admitted on ED Protocol for severe malnutrition. Following feeding plan per Adolescent Medicine and Nutrition. Plan: - see plan under ARFID problem Assessment & Plan (03/10/2020 11:17 AM MANAGER ORACLE): Assessment: Malnutrition is secondary to ARFID and [...] needed Assessment & Plan (03/06/2020 10:09 AM MANAGER ORACLE): Assessment: Marlee is admitted on ED Protocol for severe malnutrition. Following feeding plan per [facility]oles[facility] Nutrition. Plan: - see plan under ARFID problem Assessment & Plan (03/04/2020 1:41 PM MANAGER ORACLE): Assessment: Marlee is admitted on ED Protocol for severe malnutrition. Following feeding plan per Adolescent Medicine and Nutrition. Plan: - see plan under ARFID problem Assessment & Plan (03/04/2020 11:50 AM MANAGER ORACLE): Assessment: Marlee is admitted on ED Protocol for severe malnutrition. Following feeding plan per [facility]olescent Medicine and Nutrition. Plan: - see plan under ARFID problem Assessment & Plan (03/03/2020 3:53 PM MANAGER ORACLE): Assessment: Malnutrition is secondary to ARFID and [...] dad. Assessment & Plan (02/27/2020 9:57 AM MANAGER ORACLE): Assessment: Marlee is admitted on ED Protocol for severe malnutrition. Following feeding plan per [facility]olescent Medicine and Nutrition. Plan: - see plan under ARFID problem Assessment & Plan (02/26/2020 9:59 AM MANAGER ORACLE): Assessment: Malnutrition is secondary to ARFID and [...] plan. Assessment & Plan (02/25/2020 5:48 PM MANAGER ORACLE): Assessment: Malnutrition is secondary to ARFID and [...] plan. Assessment & Plan (02/18/2020 4:54 PM MANAGER ORACLE): Assessment: Malnutrition is secondary to ARFID and [...] daily Assessment & Plan (02/11/2020 11:47 AM MANAGER ORACLE): Assessment: Malnutrition is secondary to ARFID and [...] BID Assessment & Plan (02/09/2020 11:50 AM MANAGER ORACLE): Assessment: Marlee is admitted on ED Protocol for severe malnutrition. Following feeding plan per Adolescent Medicine and Nutrition. Plan: - see plan under ARFID problem Assessment & Plan (02/07/2020 11:47 AM MANAGER ORACLE): Assessment: Marlee is admitted on ED Protocol for severe malnutrition. Following feeding plan per Adolescent Medicine and Nutrition. Plan: - see plan under ARFID problem Assessment & Plan (02/06/2020 8:12 AM MANAGER ORACLE): Assessment: Marlee is admitted on ED Protocol for severe malnutrition. Following feeding plan per Adolescent Medicine and Nutrition. Plan: - see plan under ARFID problem Assessment & Plan (02/05/2020 9:01 AM MANAGER ORACLE): Assessment: Marlee is admitted on ED Protocol for severe malnutrition. Following feeding plan per Adolescent Medicine and Nutrition. Plan: - see plan under ARFID problem Assessment & Plan (02/04/2020 12:34 PM MANAGER ORACLE): Assessment: Marlee is admitted on ED Protocol for severe malnutrition. Following feeding plan per Adolescent Medicine and Nutrition. Plan: - see plan under ARFID problem Assessment & Plan (02/03/2020 2:28 PM MANAGER ORACLE): Assessment: Marlee is admitted on ED Protocol for severe malnutrition. Following feeding plan per Adolescent Medicine and Nutrition. Plan: - see plan under ARFID problem Assessment & Plan (02/02/2020 3:57 PM MANAGER ORACLE): Assessment: Marlee is admitted on ED Protocol for severe malnutrition. Following feeding plan per Adolescent Medicine and Nutrition. Plan: - see plan under ARFID problem Assessment & Plan (02/01/2020 12:10 PM MANAGER ORACLE): Assessment: Marlee is admitted on ED Protocol for severe malnutrition. Following feeding plan per Adolescent Medicine and Nutrition. Plan: - see plan under ARFID problem Assessment & Plan (01/31/2020 1:04 PM MANAGER ORACLE): Assessment: Marlee is admitted on ED Protocol for severe malnutrition. Following feeding plan per Adolescent Medicine and Nutrition. Plan: - see plan under ARFID problem Assessment & Plan (01/30/2020 10:28 AM MANAGER ORACLE): Assessment: Marlee is admitted on ED Protocol for severe malnutrition. Following feeding plan per Adolescent Medicine and Nutrition. Plan: - see plan under ARFID problem Assessment & Plan (01/28/2020 4:29 PM MANAGER ORACLE): Assessment: Malnutrition is secondary to ARFID and [...] BID Assessment & Plan (01/24/2020 11:54 AM MANAGER ORACLE): Assessment: Marlee is admitted on ED Protocol for severe malnutrition. Following feeding plan per Adolescent Medicine and Nutrition. Plan: - see plan under ARFID problem Assessment & Plan (01/23/2020 7:09 AM MANAGER ORACLE): Assessment: Marlee is admitted on ED Protocol for severe malnutrition. Following feeding plan per Adolescent Medicine and Nutrition. Plan: - see plan under ARFID problem Assessment & Plan (01/22/2020 9:48 AM MANAGER ORACLE): Assessment: Malnutrition is secondary to ARFID and [...] () Assessment & Plan (01/22/2020 7:52 AM MANAGER ORACLE): Assessment: Marlee is admitted on ED Protocol for severe malnutrition. Following feeding plan per Adolescent Medicine and Nutrition. Plan: - see plan under ARFID problem Assessment & Plan (01/21/2020 10:33 AM MANAGER ORACLE): Assessment: Malnutrition is secondary to ARFID and [...] () Assessment & Plan (01/21/2020 7:40 AM MANAGER ORACLE): Assessment: Marlee is admitted on ED Protocol for severe malnutrition. Following feeding plan per Adolescent Medicine and Nutrition. Plan: - see plan under ARFID problem Assessment & Plan (01/20/2020 7:36 AM MANAGER ORACLE): Assessment: Marlee is admitted on ED Protocol for severe malnutrition. Following feeding plan per Adolescent Medicine and Nutrition. Plan: - see plan under ARFID problem Assessment & Plan (01/19/2020 7:22 AM MANAGER ORACLE): Assessment: Marlee is admitted on ED Protocol for severe malnutrition. Following feeding plan per Adolescent Medicine and Nutrition. Plan: - see plan under ARFID problem Assessment & Plan (01/18/2020 4:25 PM MANAGER ORACLE): Assessment: Marlee Chavez is a 19 year [...] orthostatics Assessment & Plan (01/17/2020 12:38 PM MANAGER ORACLE): Assessment: Marlee Chavez is a 19 year [...] anxiety Assessment & Plan (01/16/2020 1:41 PM MANAGER ORACLE): Assessment: Marlee Chavez is a 19 year [...] anxiety Assessment & Plan (01/15/2020 8:49 PM MANAGER ORACLE): Assessment: Malnutrition is secondary to ARFID and [...] counseling. Assessment & Plan (01/15/2020 11:57 AM MANAGER ORACLE): Assessment: Marlee Chavez is a 19 year [...] anxiety Assessment & Plan (01/14/2020 1:00 PM MANAGER ORACLE): Assessment: Malnutrition is secondary to ARFID and [...] () Assessment & Plan (01/14/2020 9:54 AM MANAGER ORACLE): Assessment: Marlee Chavez is a 19 year [...] anxiety Assessment & Plan (01/13/2020 2:34 PM MANAGER ORACLE): Assessment: Marlee Chavez is a 19 year [...] anxiety Assessment & Plan (01/13/2020 12:01 PM MANAGER ORACLE): Moderate protein-calorie malnutrition Assessment: Marlee Chavez is [...] thereafter Assessment & Plan (01/12/2020 3:40 PM MANAGER ORACLE): Moderate protein-calorie malnutrition Assessment: Marlee Chaevz is a 19 year old with history [...] chart) Assessment & Plan (01/12/2020 1:25 PM MANAGER ORACLE): Assessment: Marlee Chavez is a 19 year [...] anxiety Assessment & Plan (01/11/2020 11:43 AM MANAGER ORACLE): Assessment: Marlee Chavez is a 19 year [...] cysts Assessment & Plan (01/10/2020 9:32 AM MANAGER ORACLE): Assessment: Marlee Chavez is a 19 year [...] cysts Assessment & Plan (01/09/2020 11:08 AM MANAGER ORACLE): Assessment: Marlee Chavez is a 19 year [...] cysts Assessment & Plan (01/08/2020 1:32 PM MANAGER ORACLE): Assessment: Marlee Chavez is a 19 year [...] cysts Assessment & Plan (01/07/2020 2:52 PM MANAGER ORACLE): Assessment: Marlee Chavez is a 19 year [...] cysts Assessment & Plan (01/06/2020 11:27 AM MANAGER ORACLE): Assessment: Marlee Chavez is a 19 year [...] cysts Assessment & Plan (01/05/2020 3:49 PM MANAGER ORACLE): Assessment: Marlee Chavez is a 19 year [...] cysts Assessment & Plan (01/04/2020 1:53 PM MANAGER ORACLE): Assessment: Marlee Chavez is a 19 year [...] cysts Assessment & Plan (01/03/2020 12:34 AM MANAGER ORACLE): Assessment: Marlee Chavez is a 19 year [...] fluids - Continue scheduled -PO zofran -H2 jnog -Capsacin cream - miralax and colace daily - mIVF with glucose -prn benadryl for nausea - Motrin q6h prn for pain -prn ice packs -Hot showers prn -If pt continues to feel better with no emesis, change zofran to prn Abdominal pain, generalized 08/10/2021 03/18/2023 Assessment & Plan (01/24/2022 5:04 PM MANAGER ORACLE): Assessment: Marlee Chavez is a 20 year [...] gabapentin Assessment & Plan (01/23/2022 6:56 PM MANAGER ORACLE): Assessment: Marlee Chavez is a 20 year [...] pain Assessment & Plan (01/08/2021 3:05 PM MANAGER ORACLE): Assessment: Patient is an 20 year old [...] I&Os Assessment & Plan (01/07/2021 4:52 PM MANAGER ORACLE): Assessment: Patient is an 20 year old [...] it Assessment & Plan (01/06/2021 6:00 PM MANAGER ORACLE): Assessment: Patient is an 20 year old [...] I&Os Assessment & Plan (01/05/2021 1:27 PM MANAGER ORACLE): Assessment: Patient is an 20 year old [...] I&Os Assessment & Plan (01/04/2021 9:17 PM MANAGER ORACLE): Assessment: Patient is an 20 year old [...] I&Os Assessment & Plan (01/03/2021 8:43 PM MANAGER ORACLE): Assessment: Patient is an 20 year old [...] wearing condom. She has upcoming appointment with flame gouger next month at which time, she will be getting a IUD. Plan: -urine test today -GC, chlamydia, trichomonas testing Assessment & Plan (05/24/2020 2:43 PM CDT): Will get urine Hcg and STI testing. Mom is aware and Marlee is ok with us communicating results to her mother. Purging 03/24/2020 05/24/2020 Assessment & Plan (04/05/2020 3:23 PM MANAGER ORACLE): Assessment: Has been drinking excessive amounts of water and putting her fingers in her mouth to induce vomiting. No recorded emesis since 03/25. Plan: Will limit access to water to 250ml at a time. May only bathe once per day after she has taken her meds, had breakfast and lunch. Assessment & Plan (04/04/2020 12:58 PM MANAGER ORACLE): Assessment: Has been drinking excessive amounts of water and putting her fingers in her mouth to induce vomiting. No recorded emesis since 03/25. Plan: Will limit access to water to 250ml at a time. May only bathe once per day after she has taken her meds, had breakfast and lunch. Assessment & Plan (04/01/2020 11:55 AM MANAGER ORACLE): Assessment: Has been drinking excessive amounts of water and putting her fingers in her mouth to induce vomiting. No recorded emesis since 03/25. Plan: Will limit access to water to 250ml at a time. May only bathe once per day after she has taken her meds, had breakfast and lunch. Assessment & Plan (03/24/2020 4:53 PM MANAGER ORACLE): Assessment: Has been drinking excessive amounts of water and putting her fingers in her mouth to induce vomiting. Plan: Will limit access to water to 250ml at a time. May only bathe once per day after she has taken her meds, had breakfast and lunch. Ovarian cyst 01/12/2020 03/19/2020 Assessment & Plan (03/15/2020 11:10 AM MANAGER ORACLE): Assessment: on ultrasound on R Plan: -Radiology recommended repeat imaging in 6 months for ovarian cysts Assessment & Plan (03/04/2020 1:41 PM MANAGER ORACLE): Assessment: on ultrasound on R Plan: -Radiology recommended repeat imaging in 6 months for ovarian cysts Assessment & Plan (03/04/2020 11:50 AM MANAGER ORACLE): Assessment: on ultrasound on R Plan: -Radiology recommended repeat imaging in 6 months for ovarian cysts Assessment & Plan (02/27/2020 9:58 AM MANAGER ORACLE): Assessment: on ultrasound on R Plan: -Radiology recommended repeat imaging in 6 months for ovarian cysts Assessment & Plan (01/28/2020 11:59 AM MANAGER ORACLE): Assessment: on ultrasound on R Plan: -Radiology recommended repeat imaging in 6 months for ovarian cysts Assessment & Plan (01/27/2020 3:52 PM MANAGER ORACLE): Assessment: on ultrasound on R Plan: -Radiology recommended repeat imaging in 6 months for ovarian cysts Assessment & Plan (01/26/2020 6:01 PM MANAGER ORACLE): Assessment: on ultrasound on R Plan: -Radiology recommended repeat imaging in 6 months for ovarian cysts Assessment & Plan (01/13/2020 2:33 PM MANAGER ORACLE): Assessment: on ultrasound on R Plan: -Radiology recommended repeat imaging in 6 months for ovarian cysts Assessment & Plan (01/12/2020 1:26 PM MANAGER ORACLE): Assessment: on ultrasound on R Plan: -Radiology recommended repeat imaging in 6 months for ovarian cysts Self-injurious behavior 03/25/201705/12 Major depressive disorder, severe 03/21/2017 05/24/2020 Intractable vomiting 020 Encounters * This document contains information received from the source organization and may not represent a complete record from that organization. Date Type Department Care Team Description 09/22/2024 Telephone [facility] [address] [place] [address] Ronel Thornton, Medication Request 07/07/2024 Travel from Last 3 Months Immunizations Immunization Administration Dates Next Due [employer] primary monoval ent 12+ yr 0.3mL Purple [...] Recorded Patient Health Questionnaire-2 Score 0 07/07/2024 [facility] - [...] in a long-term (including now)? No 04/24/2023 Comments No Sex and Gender Information Value Date Recorded Sex Assigned at Not on file Legal Sex Female 6:25 PM MANAGER ORACLE Gender Identity Not on file Sexual Orientation [...] st Contact Info) Description 01/20/2025 8:20 AM MANAGER ORACLE Office Visit [facility] - Family Medicine [address] [place] [address] Ronel Thornton DO [address] [place] [address] Health Maintenance Due Date Last Done [...] [facility] ACCOUNT BILL Comment: Performed at: - [facility] [id number] Driller'S Offsider: Meredith Gil MD, Phone: [phone] Performed at: 01 - [facility] [address] [id number] Driller'S Offsider: Meredith Gil MD, Phone: [phone] Diagnosis Comment(A) [facility] ACCOUNT BILL Comment: EPITHELIAL [...] - 12/05/2023 5:09 PM CDT Performed at: [address] [place] [id number] Driller'S Offsider: Meredith Gil MD, Phone: [phone] Specimen Comment: [id number] Specimen Comment: Source.............Cervix Specimen Comment: No. of containers..01 ThinPrep Vial us Nai Jurado MD LAB - PATHOLOGY/CYTOLOGY [place] Final Result [facility] ACCOUNT BILL [address] [place] [address] * HIV-1 HIV-2 ANTIBODY + HIV P24 [...] 10:10 AM CDT [facility]formed at: [facility] - [facility] [address] [place], [place] [id number] Driller'S Offsider: Karlos Huffman PhD, Phone: [phone] Nai Jurado MD LAB - CHEMISTRY ORDERABLES Fi nal Result [facility] ACCOUNT BILL [address] [place] [address] * HEPATITIS C AB W/RFLX TO HCV RNA QN PCR (12/07/2021) Hepatitis C Antibody NON-REACTI VE NON-REACT [facility] Signal to Cut-Off 0.08 <1.00 [facility] Comment: HCV antibody was non-reactive. There is no laboratory evidence of HCV infection. In most cases, no further action is required. However, if recent HCV exposure is suspected, a test for HCV RNA (test code 08898) is suggested. For additional information please refer to http://education.[employer]/faq/XOC98e5 (This link is being provided for informational/ educational purposes only.) Test Performed at: [facility] [address] [place] [address] PURVI PABLO DO,MPH Blood BLOOD SPECIMEN / Unknown 12/07/2021 12/07/2021 10:47 AM CDT Karrie Mack MD LAB - CHEMISTRY ORDERABLES Final Result [facility] [address] [place] [address] from Last 3 Months or Most Recently Relevant to Health Maintenance Insurance [facility] Member Subscriber Plan / Payer ( fective 2023-) Name:Ciarashaka Marlee A Relation to Subscriber:Child Name:NAI NEWMAN Date of :1984 (Home) (Work) Address: [address] [place] [address] Payer ID:[id number] ([facility]) Group ID:[id number] Type:Commercial Address: [place] [phone] [facility] Member Subscriber Plan / Payer ( fective 2023-) Name:Ciarahsaka Marlee A Relation to Subscriber:Child Name:NAI NEWMAN Date of :1984 (Home) (Work) Address: [address] [place] [address] Payer ID:[id number] ([facility]) Group ID:[id number] Type:Commercial Address: [place] [id number] [place] [phone] [facility] Advance Directives * Full Code (Latest [...] 4:54 PM 06/22/2022 2:44 PM Care Teams Yard Switch Operator Relationship Specialty Start Date End Date Ronel Thornton DO [address] [place] [address] PCP - General Family Medicine 03/18/23 Ronel Thornton DO [address] [place] [address] PCP - Attributed-[facility] STL 04/12/23
--- OUTSIDE RECORDS SUMMARY | 2024-09-22 17:31 | XMS_ITS | Encounter Summary ---
Author Organization [facility] Address [address] [facility] [place] [address] Care Team Providers Care Wire Worker Name Role Phone Mellissa Jiménez MD Primary Care Provider [phone] Ronel Thornton DO Primary Care Provider [phone] Daphnie Gillespie MD Unavailable Juliana Peralta SURVEILLANCE SYSTEM MONITOR Unavailable [phone] Juliana Peralta SURVEILLANCE SYSTEM MONITOR Unavailable [phone] Ronel Thornton DO Unavailable Kenyatta Taylor RN Unavailable Tiago Lew Unavailable [phone] Reason for Visit * Reason Onset Date Comments Appointment 10/05/2020 Contraceptive management 10/05/2020 Encounter Details Date Type Department Care Team (Late st Contact Info) Description 10/05/2020 Telephone [facility] [address] [place], [place] [id number] [place] [address] [place] [address] Appointment; Contraceptive management Social History Tobacco Use Types Packs/Day Years Used Date Smoking Tobacco: Never Smokeless Tobacco: Never Alcohol Use Standard Drinks/Week Comments No 0 (1 standard drink = 0.6 oz pur e alcohol) Comments No Sex and Gender Information Value Date Recorded Sex Assigned at Not on file Legal Sex Female 6:25 PM SUPERVISOR PASTRY Gender Identity Not on file Sexual Orientation [...] the office yet to get scheduled. CB# [phone] documented in this encounter Plan of Treatment Upcoming Encounters Date Type Department Care Team (Late st Contact Info) Description 01/20/2025 8:20 AM SUPERVISOR PASTRY Office Visit [facility] Family Medicine [address] [place] [address] Ronel Thornton DO [address] [place] [address] documented as of this encounter Visit Diagnoses Not on filedocumented in this encounter Additional Health Concerns Infection Onset Date Last Indicated Resolved Time COVID-19 Under Investigation 08/10/2021 08/10/2021 08/10/2021 2:59 AM CDT documented as of this encounter Care Teams Wire Worker Relationship Specialty Start Date End Date Mellissa Jiménez MD [address] [place] [address] [place] [address] PCP - General Family Medicine 04/25/20 03/17/23 Ronel Thornton DO [address] [place] [address] PCP - General Family Medicine 03/18/23 [place] [address] [place] [phone] PCP - Attributed-[facility] EHP STL 02/11/23 04/11/23 Ronel Thornton DO [address] [place] [address] PCP - Attributed-[facility] STL 04/12/23 Juliana Peralta MSW Outpatient Skip Hoist Engineer Care Management 04/24/2304/11 Juliana Peralta MSW Outpatient Skip Hoist Engineer Care Management 04/30/2304/12 Kenyatta Taylor RN [address] [address] [employer] Wafers TesterCommercial Floor Covering Installer 09/02/23 10/04/23 Tiago Lew Care Coordination Specialist Care Management 09/26/23 11/10/23 documented as of this encounter
--- OUTSIDE RECORDS SUMMARY | 2024-09-22 17:31 | XMS_ITS | Encounter Summary ---
Author Organization [facility] Address [address] [facility] [place] [address] Care Team Providers Care Button Inspector Name Role Phone Ronel Thornton DO Primary Care Provider [phone] Ronel Thornton DO Unavailable [phone] Reason for Visit * Reason Onset Date Comments Medication Request 09/22/2024 Encounter Details Date Type Department Care Team (Late st Contact Info) Description 09/22/2024 Telephone [facility] - Family Medicine [address] [place] [address] Ronel Thornton DO [address] [place], [place] [id number] Medication Request Social History Tobacco Use Types Packs/Day Years [...] Recorded Patient Health Questionnaire-2 Score 0 07/07/2024 [facility] - Occupational Stress [...] on file Legal Sex Female 6:25 PM RAT TRAPPER Gender Identity Not on file Sexual Orientation [...] Gloria Womack RN documented in this encounter Miscellaneous Notes * Telephone Encounter - Sparkle Dominguez MD - 09/22/2024 4:34 PM CDT I looked at the chart and they will refill it if she calls them and just makes an appointment there. Want to make sure that you get the right care so make that appointment and if there is a lag between now and when they refill it. We will take care of it for you In order to continue your medication refills please contact the office to schedule with your new provider. [phone] * Telephone Encounter - Eli Delatorre - 09/22/2024 2:53 PM CDT Pt is asking if PCP can refill Olanzapine 5 MG states she is no longer seeing Dr Long she has to get a new psychiatrist. documented in this encounter Plan of Treatment Upcoming Encounters Date Type Department Care Team (Late st Contact Info) Description 01/20/2025 8:20 AM RAT TRAPPER Office Visit [facility] - Family Medicine [address] [place] [address] Ronel Thornton DO [address] [place] [address] documented as of this encounter Visit Diagnoses Not on filedocumented in this encounter Care Teams Button Inspector Relationship Specialty Start Date End Date Ronel Thornton DO [address] [place] [address] PCP - General Family Medicine 03/18/23 Ronel Thornton DO [address] [place] [address] PCP - Attributed-[facility] STL 04/12/23 documented as of this encounter
--- OUTSIDE RECORDS SUMMARY | 2024-09-22 17:31 | XMS_ITS | Encounter Summary ---
Author Organization [facility] Address [address] [place] [address] Care Team Providers Care Six Color Press Operator Name Role Phone Mellissa Jiménez MD Primary Care Provider [phone] Ronel Thornton DO Primary Care Provider [phone] Daphnie Gillespie MD Unavailable Juliana Peralta CRAFT WORKER Unavailable [phone] Juliana Peralta CRAFT WORKER Unavailable [phone] Ronel Thornton DO Unavailable [phone] Kenyatta Taylor RN Unavailable [phone] Tiago Lew Unavailable [phone] Reason for Visit * Reason Onset Date Comments Eating disorder 08/04/2020 Encounter Details Date Type Department Care Team (Late st Contact Info) Description 08/04/2020 Telephone [facility] Successfactors Consultant [address] [place] [address] Flor Martinez, MOLDED GOODS INSPECTOR TRIMMER Eating disorder Social History Tobacco Use Types Packs/Day Years Used Date Smoking Tobacco: Never Smokeless Tobacco: Never Alcohol Use Standard Drinks/Week Comments No 0 (1 standard drink = 0.6 oz pur e alcohol) Comments No Sex and Gender Information Value Date Recorded Sex Assigned at Not on file Legal Sex Female 6:25 PM SMALLTALK DEVELOPER Gender Identity Not on file Sexual Orientation [...] phone calls with Kenyatta's mother Esperanza and [facility] this week regarding Kenyatta's relapse, and mother's belief that she needs to be admitted to [facility]. Spoke with mother again this a.m, and they have a phone intake assessment with [facility] next SaturdayAugust 08. documented in this encounter Plan of Treatment Upcoming Encounters Date Type Department Care Team (Late st Contact Info) Description 01/20/2025 8:20 AM SMALLTALK DEVELOPER Office Visit [facility] - Family Medicine [address] [place] [address] Ronel Thornton DO [address] [place] [address] documented as of this encounter Visit Diagnoses Not on filedocumented in this encounter Additional Health Concerns Infection Onset Date Last Indicated Resolved Time COVID-19 Under Investigation 08/10/2021 08/10/2021 08/10/2021 2:59 AM CDT documented as of this encounter Care Teams Six Color Press Operator Relationship Specialty Start Date End Date Mellissa Jiménez MD [address] [place] [address] [place] [address] PCP - General Family Medicine 04/25/20 03/17/23 Ronel Thornton DO [address] [place] [address] PCP - General Family Medicine 03/18/23 Daphnie Gillespie MD [address] [place] [address] PCP - Attributed-[facility] STL 02/11/23 04/11/23 Ronel Thornton DO [address] [place] [address] PCP - Attributed-[facility] STL 04/12/23 Juliana Peralta MSW Outpatient Flat Breakdown Processor Care Management 04/24/2304/11 Juliana Peralta MSW Outpatient Flat Breakdown Processor Care Management 04/30/2304/12 Kenyatta Taylor RN [address] [address] Matrix Bath AttendantManager Process 09/02/23 10/04/23 Tiago Lew Care Coordination Specialist Care Management 09/26/23 11/10/23 documented as of this encounter
--- OUTSIDE RECORDS SUMMARY | 2024-09-22 17:31 | XMS_ITS | Encounter Summary ---
Author Organization [facility] Address [address] [place] [address] Care Team Providers Care Storage Battery Inspector And Tester Name Role Phone Mellissa Jiménez MD Primary Care Provider [phone] Ronel Thornton DO Primary Care Provider [phone] Daphnie Gillespie MD Unavailable Juliana Peralta EMERGENCY MEDICINE Unavailable [phone] Juliana Peralta Unavailable [phone] Ronel Thornton DO Unavailable [phone] Kenyatta Taylor RN Unavailable Tiago Lew Unavailable [phone] Encounter Details Date Type Department Care Team (Late st Contact Info) Description 07/28/2020 Telephone [facility] Pediatrics - Pulmonology [address] [place] [address] Bessie Erwin Social History Tobacco Use Types Packs/Day Years Used Date Smoking Tobacco: Never Smokeless Tobacco: Never Alcohol Use Standard Drinks/Week Comments No 0 (1 standard drink = 0.6 oz pur e alcohol) Comments No Sex and Gender Information Value Date Recorded Sex Assigned at Not on file Legal Sex Female 6:25 PM AVIATION PROJECT MANAGER Gender Identity Not on file Sexual [...] PM CDT Mom called regarding not eating [phone] Marla Gillespie documented in this encounter Plan of Treatment Upcoming Encounters Date Type Department Care Team (Late st Contact Info) Description 01/20/2025 8:20 AM AVIATION PROJECT MANAGER Office Visit [facility] Family [address] [address] Ronel Thornton DO [address] [place] [address] documented as of this encounter Visit Diagnoses Not on filedocumented in this encounter Additional Health Concerns Infection Onset Date Last Indicated Resolved Time COVID-19 Under Investigation 08/10/2021 08/10/2021 08/10/2021 2:59 AM CDT documented as of this encounter Care Teams Storage Battery Inspector And Tester Relationship Specialty Start Date End Date Mellissa Jiménez MD [address] [place] [address] [place] [address] PCP - General Family Medicine 04/25/20 03/17/23 Ronel Thornton DO [address] [place], [place] [address] [address] PCP - General Family Medicine 03/18/23 Daphnie Gillespie MD [address] [place] [phone] PCP - Attributed-[facility] STL 02/11/23 04/11/23 Ronel Thornton DO [address] [place], [place] [address] [address] PCP - Attributed-[facility] STL 04/12/23 Juliana Peralta MSW Outpatient Residential Worker Care Management 04/24/2304/11 Juliana Peralta MSW Outpatient Residential Worker Care Management 04/30/2304/12 Kenyatta Taylor RN [address] [address] Assembly Line UpholstererSaddle Maker 09/02/23 10/04/23 Tiago Lew Care Coordination Specialist Care Management 09/26/23 11/10/23 documented as of this encounter
--- OUTSIDE RECORDS SUMMARY | 2024-09-22 17:31 | XMS_ITS | Clinical Summary ---
Author Organization [facility] Address [address] [place] [address] Phone Care Team Providers Care Liquor Inspector Name Role Phone Mellissa Jiménez MD [...] on file Legal Sex Female 10:44 PM BOOTH CLEANER Gender Identity Not on file Sexual Orientation [...] 52.2 kg (115 lb) 04/20/2023 2:30 AM BOOTH CLEANER Height 152.4 cm (5') 04/20/2023 2:30 AM BOOTH CLEANER Body Mass Index 22.46 04/20/2023 2:30 AM BOOTH CLEANER Plan of Treatment Health Maintenance Due Date [...] 02/22/2003, Additional history exists [place] [address] [facility] [id number] OUT OF NETWORK Advance Directives For more information, please contact: [phone] * Full Code (Latest Code Status on File) Date Activated Date Inactivated Comments 04/20/2023 2:32 AM 04/21/2023 4:11 PM Care Teams Liquor Inspector Relationship Specialty Start Date End Date Mellissa Jiménez MD [address] [place] [phone] PCP - General Family Practice 04/20/23
[2024-09-22 17:36] VITALS: BP 146/104; PULSE 110; RESP 16; TEMP 36.3; O2SAT 99
[2024-09-22 19:45] VITALS: BP 128/91; PULSE 121; RESP 22; O2SAT 98
--- NOTE | 2024-09-22 19:46 | PC.NURSE ---
Unable to get skin temperature d/t pt. being diaphoretic. Pt. dry heaving, unable to get oral temp. Pt. will not hold still for axillary temp.
--- NOTE | 2024-09-22 19:50 | PC.NURSE ---
Pt. educated that we need a urine sample. Pt. states she cannot urinate at this time. Pt. educated that she should have nothing to eat or drink d/t c/o abdominal pain with N/V. Pt. continuously goes to water found in [place] to drink despite education.
[2024-09-22 19:56] LABS: Hematocrit 35.9 % (37.0-47.0); Hemoglobin 12.4 g/dL (12.0-15.0); Immature Granulocyte Percent A 0.6 % (0-0.5); Lymphocytes Absolute Auto 2.63 K/mm3 (0.9-3.2); Mean Corpuscular HGB Conc 34.5 g/dl (32-36); Mean Corpuscular Hemoglobin 30.4 pg (26-34); Mean Corpuscular Volume 88.0 fl (80-100); Nucleated Red Blood Cells Absolute Auto 0.000 K/mm3 (0.0-0.012); Nucleated Red Blood Cells Perc 0.0 % (0.0-0.2); Platelet Count Result 401 k/mm3 (150-375); Red Blood Count 4.08 M/mm3 (4.2-5.4); White Blood Count 27.8 K/mm3 (4.5-10.0)
--- NOTE | 2024-09-22 19:56 | PC.NURSE ---
pt continuos to drink water after being told not to as it can worsen her symptoms, pt then states I need something to throw up.
--- NOTE | 2024-09-22 20:07 | PC.NURSE ---
pt refusing to stop drinking water until symptoms resolve.
[2024-09-22 20:13] LABS: Alanine Aminotransferase 26 U/L (6-35); Albumin Level 4.9 g/dL (3.5-5.1); Alkaline Phosphatase 72 U/L (38-126); Anion Gap 17 mmol/L (4-12); Aspartate Amino Transferase 47 U/L (14-36); Bilirubin,Total 0.4 mg/dL (0.2-1.3); Blood Urea Nitrogen 14 mg/dL (7-17); Calcium 9.6 mg/dL (8.4-10.2); Carbon Dioxide 17 mmol/L (22-30); Chloride 103 mmol/L (98-107); Estimated CRCL calculation 59 ml/min; Estimated Glomerular Filt Rate > 60; Glucose 131 mg/dL (65-110); Lipase 130 U/L (23-300); Potassium 3.5 mmol/L (3.4-5.0); Sodium 137 mmol/L (137-145); Total Protein 8.1 g/dL (6.3-8.2)
--- NOTE | 2024-09-22 20:24 | ED_ITS ---
HPI - Nausea/Vomiting/Diarrhea General Chief complaint: Nausea/Vomiting/Diarrhea <MERI Liang Last Filed: 09/23/24 00:35> Stated complaint: n/v <MERI Liang Last Filed: 09/23/24 00:35> Time Seen by Provider: 09/22/24 20:10 <MERI Liang Last Filed: 09/23/24 00:35> Source: patient and old records reviewed <MERI Liang Last Filed: 09/23/24 00:35> Mode of arrival: ambulatory <MERI Liang Filed: 09/23/24 00:35> Limitations: no limitations <MERI Liang Last Filed: 09/23/24 00:35> History of Present Illness HPI Narrative: Patient is a 24-year-old female, with past medical history of cyclic vomiting syndrome, daily marijuana use, anxiety, who presents to the ED with c/o abd pain, N/V. Patient reports having diffuse abdominal pain, nausea, vomiting, difficulty keeping down any food or drink over the past several hours. States this feels similar to her previous episodes. Denies diarrhea, constipation, no fevers. Patient was seen in the ED earlier today, but more for anxiety. <MERI Liang Last Filed: 09/23/24 00:35> Related Data Home medications: Home Medications ?Medication ?Instructions ?Recorded ?Confirmed ?Last Taken ?Type escitalopram oxalate 10 mg tablet 10 mg PO DAILY 07/18/24 09/23/24 09/22/24 History olanzapine 2.5 mg tablet 5 mg PO DAILY 09/23/24 09/23/24 09/21/24 History <MERI Liang Last Filed: 09/23/24 00:35> Allergies/Adverse reactions: Allergies Allergy/AdvReac Type Severity Reaction Status Date / Time No Known Allergies Allergy Verified 09/22/24 07:38 <MERI Liang Last Filed: 09/23/24 00:35> Review of Systems 2 Review of Systems: All systems reviewed & are unremarkable except as noted in HPI. <Breana Duarte PA-C - Last Filed: 09/23/24 00:35> All systems reviewed & are unremarkable except as noted in HPI and below < Breana Duarte PA-C - Last Filed: 09/23/24 00:35> [facility] Past Medical History Medical History: Medical History Drug withdrawal seizure History of eating disorder Anxiety Depression <Breana Duarte PA-C - Last Filed: 09/23/24 00:35> Family History Family History: Family History Grandparent History of alcoholism Depression Mother History of alcoholism Hypertension Depression <Breana Duarte PA-C - Last Filed: 09/23/24 00:35> Social History Social History: Social History Smoking status: Never smoker Alcohol intake: never Substance use: current Substance use type: marijuana Last use: 07/18/2024 Do You Feel Safe in your Home?: Yes Lack of Transportation: YES Lack of Food: Never True Current Housing: I Have Housing Concerned About Future Housing: No Difficulty Paying Gas/Electric Bills: No Difficulty Paying for Meds: No Currently Unemployed: No Education: High School Diploma/GED Difficulty w/ Childcare or Family Care: No Living arrangements: with roommate(s) Occupation/Education: unemployed Additional occupation/education comments: not currently working or in school Gender identity (if verbalized by the patient): Female Spiritual care concerns: No <Breana Duarte PA-C - Last Filed: 09/23/24 00:35> Exam 2 Narrative: GENERAL: Mildly ill-appearing, thin, moderate acute distress, jumping up and down, actively retching very loudly. HEAD: Normocephalic, atraumatic. RESPIRATORY: Airway patent, respirations nonlabored. Clear to auscultation bilaterally, no rales, rhonchi, wheezing. CARDIOVASCULAR: Tachycardic with regular rhythm without murmurs, rubs, or gallops. ABDOMINAL: Soft, diffuse tenderness, nondistended. Normoactive BS. MUSCULOSKELETAL: Moves all extremities. No gross deformities. SKIN: Warm, dry, normal color. NEURO: A&O X3. Speech clear. Cranial nerves II-XII grossly intact. Steady gait. No ataxic movements. PSYCHIATRIC: Anxious, tearful. Normal interaction. <Breana Duarte PA-C - Last Filed: 09/23/24 00:35> Course PLANT ENGINEERING SUPERVISOR/PA Physician Supervision This visit was performed by both a physician and an APC. I performed all aspects of the MDM as documented. <Cipriano Guadarrama MD - Last Filed: 09/23/24 06:06> Vital Signs Vital signs: Vital Signs Temperature 36.3 C L 09/22/24 17:36 Pulse Rate 110 H 09/22/24 17:36 Respiratory Rate 16 09/22/24 17:36 Blood Pressure 146/104 H 09/22/24 17:36 Pulse Oximetry 99 09/22/24 17:36 Temperature 36.5 C 09/23/24 01:46 Pulse Rate 75 09/23/24 04:25 Respiratory Rate 22 H 09/23/24 01:46 Blood Pressure 129/82 09/23/24 01:46 Pulse Oximetry 98 09/23/24 01:46 Oxygen Delivery Room Air 09/23/24 02:20 <Breana Duarte PA-C - Last Filed: 09/23/24 00:35> Vital Signs Temperature 36.3 C L 09/22/24 17:36 Pulse Rate 110 H 09/22/24 17:36 Respiratory Rate 16 09/22/24 17:36 Blood Pressure 146/104 H 09/22/24 17:36 Pulse Oximetry 99 09/22/24 17:36 Temperature 36.5 C 09/23/24 01:46 Pulse Rate 75 09/23/24 04:25 Respiratory Rate 22 H 09/23/24 01:46 Blood Pressure 129/82 09/23/24 01:46 Pulse Oximetry 98 09/23/24 01:46 Oxygen Delivery Room Air 09/23/24 02:20 <Cipriano Guadarrama MD - Last Filed: 09/23/24 06:06> MDM - Nausea/Vomiting/Diarrhea MDM Narrative Medical decision making narrative: Patient presented to ED with diffuse abdominal pain, nausea, vomiting, history of cyclic vomiting/cannabinoid induced hyperemesis. Seen in the ED earlier today for anxiety, discharged home. Patient tachycardic, tachypneic, very anxious upon arrival. Blood pressure stable. Afebrile here. Cbc with marked leukocytosis of 27.8. She did not have blood work done earlier today. Neutrophil predominance. No bandemia. H&H is stable. CMP with bicarb of 17, anion gap of 17. Normal blood sugar. Creatinine stable. Normal LFTs and lipase. UA with evidence of dehydration, no signs of infection. Urine drug screen is positive for cannabinoids. CT scan of abdomen/pelvis was obtained and showing diffuse enteritis. Patient given 2 L of fluid, Compazine, Benadryl, Pepcid, IM Haldol. On re- evaluation, she is reporting persistent pain throughout abdomen, persistent nausea, difficulty keeping down food or drink. Will order additional pain medication. Patient still feeling very unwell on multiple reevals, does not feel comfortable going home. Remains tachycardic after 2L fluids. Meeting sepsis criteria based on VS and leukocytosis. Blood cx obtained. Will start Rocephin/Flagyl, patient to be admitted for further eval. Discussed case with Simone GREGG hospitalist, accepted patient for admission. Patient in agreement with plan. <Breana Duarte PA-C - Last Filed: 09/23/24 00:35> Medical Records Attestation: I reviewed the patient's medical records. <MERI Liang Last Filed: 09/23/24 00:35> Lab Data Attestation: I reviewed the patient's lab results. <MERI Liang Last Filed: 09/23/24 00:35> Result diagrams: 09/23/24 03:33 09/23/24 03:33 <MERI Liang Last Filed: 09/23/24 00:35> Labs: Lab Results 09/22/24 09/22/24 09/22/24 Range/Units 19:49 20:19 20:34 WBC 27.8 H (4.5-10.0) K/mm3 RBC 4.08 L (4.2-5.4) M/mm3 Hgb 12.4 (12.0-15.0) g/dL Hct 35.9 L (37.0-47.0) % MCV 88.0 (80-100) fl MCH 30.4 (26-34) pg MCHC 34.5 (32-36) g/dl RDW 12.7 (11.5-14.5) % Plt Count 401 H D (150-375) k/mm3 MPV 10.3 (7.4-10.4) fl Immature Gran % (Auto) 0.6 H (0-0.5) % Neut % (Auto) 81.3 H (45.5-73.1) % Lymph % (Auto) 9.4 L (18.3-44.2) % Berkshire % (Auto) 8.4 (2.6-8.5) % Eos % (Auto) 0.0 (0-4.4) % Baso % (Auto) 0.3 (0.2-1.2) % Lymph # (Auto) 2.63 (0.9-3.2) K/mm3 Ber[place] # (Auto) 2.3 H (0.1-0.6) K/mm3 Eos # (Auto) 0.0 (0-0.3) K/mm3 Baso # (Auto) 0.1 (0.0-0.1) K/mm3 Abs Immat Gran (auto) 0.18 H (0.00-0.031) K/mm3 Absolute Neuts (auto) 22.6 H (1.3-6.7) K/mm3 Absolute Nucleated RBC 0.000 (0.0-0.012) K/mm3 Nucleated RBC % 0.0 (0.0-0.2) % Sodium 137 (137-145) mmol/L Potassium 3.5 (3.4-5.0) mmol/L Chloride 103 (98-107) mmol/L Carbon Dioxide 17 L (22-30) mmol/L Anion Gap 17 H (4-12) mmol/L BUN 14 D (7-17) mg/dL Creatinine 0.91 (0.7-1.0) mg/dL Estim Creat Clear Calc 59 ml/min Estimated GFR > 60 (59 - ) Glucose 131 H (65-110) mg/dL Calcium 9.6 (8.4-10.2) mg/dL Total Bilirubin 0.4 (0.2-1.3) mg/dL AST 47 H (14-36) U/L ALT 26 (6-35) U/L Alkaline Phosphatase 72 (38-126) U/L Total Protein 8.1 (6.3-8.2) g/dL Albumin 4.9 (3.5-5.1) g/dL Lipase 130 (23-300) U/L Urine Color Yellow (Yellow) Urine Appearance Clear (Clear) Urine pH 5.5 (5.0-9.0) Ur Specific Northridge 1.033 (1.001-1.035) Urine Protein 3+ H (Negative) mg/dL Urine Glucose (UA) Negative (Negative) mg/dL Urine Ketones 3+ H (Negative) mg/dL Ur Blood (Man) Negative (Negative) Urine Nitrate Negative (Negative) Urine Bilirubin Negative (Negative) Urine Urobilinogen 1.0 (<2.0) mg/dL Leukocyte Esterase Rfl Negative (Negative) CHASIDY/UL Urine RBC 0-2 (0-2) /hpf Urine WBC 0-5 (0-3) /hpf Ur Squamous Epith Cells Moderate (Few) /hpf Urine Bacteria None seen /hpf Urine Casts 3-5 POC Urine HCG, Qual Negative (Negative) Urine Opiates Screen Negative (Negative) Urine Methadone Screen Negative (Negative) Ur Barbiturates Screen Negative (Negative) Ur Phencyclidine Scrn Negative (Negative) Ur Amphetamine Screen Negative (Negative) U Benzodiazepines Scrn Negative (Negative) Urine Cocaine Screen Negative (Negative) U Cannabinoids Screen Positive A (Negative) <Breana Duarte PA-C - Last Filed: 09/23/24 00:35> Lab Results 09/22/24 09/22/24 09/22/24 Range/Units 19:49 20:19 20:34 WBC 27.8 H (4.5-10.0) K/mm3 RBC 4.08 L (4.2-5.4) M/mm3 Hgb 12.4 (12.0-15.0) g/dL Hct 35.9 L (37.0-47.0) % MCV 88.0 (80-100) fl MCH 30.4 (26-34) pg MCHC 34.5 (32-36) g/dl RDW 12.7 (11.5-14.5) % Plt Count 401 H D (150-375) k/mm3 MPV 10.3 (7.4-10.4) fl Immature Gran % (Auto) 0.6 H (0-0.5) % Neut % (Auto) 81.3 H (45.5-73.1) % Lymph % (Auto) 9.4 L (18.3-44.2) % Ber[place] % (Auto) 8.4 (2.6-8.5) % Eos % (Auto) 0.0 (0-4.4) % Baso % (Auto) 0.3 (0.2-1.2) % Lymph # (Auto) 2.63 (0.9-3.2) K/mm3 Ber[place] # (Auto) 2.3 H (0.1-0.6) K/mm3 Eos # (Auto) 0.0 (0-0.3) K/mm3 Baso # (Auto) 0.1 (0.0-0.1) K/mm3 Abs Immat Gran (auto) 0.18 H (0.00-0.031) K/mm3 Absolute Neuts (auto) 22.6 H (1.3-6.7) K/mm3 Absolute Nucleated RBC 0.000 (0.0-0.012) K/mm3 Nucleated RBC % 0.0 (0.0-0.2) % Sodium 137 (137-145) mmol/L Potassium 3.5 (3.4-5.0) mmol/L Chloride 103 (98-107) mmol/L Carbon Dioxide 17 L (22-30) mmol/L Anion Gap 17 H (4-12) mmol/L BUN 14 D (7-17) mg/dL Creatinine 0.91 (0.7-1.0) mg/dL Estim Creat Clear Calc 59 ml/min Estimated GFR > 60 (59 - ) Glucose 131 H (65-110) mg/dL Calcium 9.6 (8.4-10.2) mg/dL Total Bilirubin 0.4 (0.2-1.3) mg/dL AST 47 H (14-36) U/L ALT 26 (6-35) U/L Alkaline Phosphatase 72 (38-126) U/L Total Protein 8.1 (6.3-8.2) g/dL Albumin 4.9 (3.5-5.1) g/dL Lipase 130 (23-300) U/L Urine Color Yellow (Yellow) Urine Appearance Clear (Clear) Urine pH 5.5 (5.0-9.0) Ur Specific Northridge 1.033 (1.001-1.035) Urine Protein 3+ H (Negative) mg/dL Urine Glucose (UA) Negative (Negative) mg/dL Urine Ketones 3+ H (Negative) mg/dL Ur Blood (Man) Negative (Negative) Urine Nitrate Negative (Negative) Urine Bilirubin Negative (Negative) Urine Urobilinogen 1.0 (<2.0) mg/dL Leukocyte Esterase Rfl Negative (Negative) CHASIDY/UL Urine RBC 0-2 (0-2) /hpf Urine WBC 0-5 (0-3) /hpf Ur Squamous Epith Cells Moderate (Few) /hpf Urine Bacteria None seen /hpf Urine Casts 3-5 POC Urine HCG, Qual Negative (Negative) Urine Opiates Screen Negative (Negative) Urine Methadone Screen Negative (Negative) Ur Barbiturates Screen Negative (Negative) Ur Phencyclidine Scrn Negative (Negative) Ur Amphetamine Screen Negative (Negative) U Benzodiazepines Scrn Negative (Negative) Urine Cocaine Screen Negative (Negative) U Cannabinoids Screen Positive A (Negative) <Cipriano Guadarrama MD - Last Filed: 09/23/24 06:06> Imaging Data Attestation: I personally reviewed and interpreted this imaging study as follows: < Breana Duarte PA-C - Last Filed: 09/23/24 00:35> Radiologist's impression: ITS Impressions Abdomen/Pelvis CT 09/22/24 22:58 IMPRESSION: Findings suggesting a diffuse enteritis from the level of proximal transverse colon to the rectum. <Breana Duarte PA-C - Last Filed: 09/23/24 00:35> Discharge Plan Discharge Clinical Impression: Enteritis, Cyclical vomiting, Dehydration Sepsis Qualifiers: Sepsis type: sepsis due to unspecified organism Sepsis acute organ dysfunction status: unspecified Qualified Code(s): A41.9 - Sepsis, unspecified organism <Breana Duarte PA-C - Last Filed: 09/23/24 00:35> Patient Disposition: Still a Patient <Breana Durate PA-C - Last Filed: 09/23/24 00:35> Condition: Stable <Breana Duarte PA-C - Last Filed: 09/23/24 00:35>
[2024-09-22] MEDS: SODIUM CHLORIDE 0.9% IV 1,000 ML 999 ML IV CONT (20:28)
[2024-09-22 20:29] LABS: Add Urine Microscopic? YES; Appearance Urine Clear (Clear); Glucose Urine UA Negative (Negative); Leukocyte Esterase Ur Negative LEU/UL (Negative); Nitrate Urine Negative (Negative); Specific Grav Ur 1.033 (1.001-1.035)
[2024-09-22] MEDS: FAMOTIDINE 20 MG/2 ML VIAL IV PUSH (20:31)
[2024-09-22] MEDS: PROCHLORPERAZINE EDISYLATE 10 MG/2 ML VIAL IV PUSH (20:33)
[2024-09-22 20:36] LABS: BEDSIDEPREGUCG Negative (Negative)
[2024-09-22 21:09] LABS: Cannabinoid Screen Urine Positive (Negative)
[2024-09-22] MEDS: HALOPERIDOL LACTATE 5 MG/ML VIAL IM (21:09)
--- OUTSIDE RECORDS SUMMARY | 2024-09-22 21:49 | XMS_ITS | Encounter Summary ---
Author Organization [facility] Address [address] [place] [address] Care Team Providers Care Toaster Operator Name Role Phone Mellissa Jiménez MD Primary Care Provider [phone] Ronel Thornton DO Primary Care Provider [phone] Daphnie Gillespie MD Unavailable Juliana Peralta ASSEMBLY LINE BRAZER Unavailable [phone] Juliana Peralta ASSEMBLY LINE BRAZER Unavailable [phone] Ronel Thornton DO Unavailable Kenyatta Taylor RN Unavailable Tiago Lew Unavailable [phone] Reason for Visit * Reason Onset Date Comments Forms/questionnaires 01/23/2021 Encounter Details Date Type Department Care Team (Late st Contact Info) Description 01/23/2021 Telephone [facility] Pediatrics - Surgery [address] [place] [address] Daphnie Gillespie MD [address] [place] [phone] Forms/questionnaires Social History Tobacco Use Types [...] on file Legal Sex Female 6:25 PM SECTION SUPERVISOR Gender Identity Not on file Sexual Orientation Not on file COVID-19 Exposure Response Date Recorded In the last month, have you been in contact with someone who was confirmed or suspected to have Coronavirus / COVID-19? No / Unsure 01/24/2021 11:47 AM SECTION SUPERVISOR documented as of this encounter Functional Status [...] wanted to know if it was received. ION SUPERVISOR documented in this encounter Plan of Treatment Upcoming Encounters Date Type Department Care Team (Late st Contact Info) Description 01/20/2025 8:20 AM SECTION SUPERVISOR Office Visit [facility] - Family Medicine [address] [place] [phone] Ronel Thornton DO [address] [place] [address] [phone] documented as of this encounter Visit Diagnoses Not on filedocumented in this encounter Additional Health Concerns Infection Onset Date Last Indicated Resolved Time COVID-19 Under Investigation 08/10/2021 08/10/2021 08/10/2021 2:59 AM CDT documented as of this encounter Care Teams Toaster Operator Relationship Specialty Start Date End Date Mellissa Jiménez MD [address] [place] [address] [place] [address] PCP - General Family Medicine 04/25/20 03/17/23 Ronel Thornton DO [address] [place] [address] PCP - General Family Medicine 03/18/23 Daphnie Gillespie MD [address] [place] [phone] PCP - Attributed-[facility]HP STL 02/11/23 04/11/23 Ronel Thornton DO [address] [place] [address] PCP - Attributed-[facility] STL 04/12/23 Juliana Peralta MSW Outpatient Wind Site Manager Care Management 04/24/2304/11 Juliana Peralta MSW Outpatient Wind Site Manager Care Management 04/30/2304/12 Kenyatta Taylor RN [address] [address] Loss Control RepresentativeGroutman 09/02/23 10/04/23 Tiago Lew Care Coordination Specialist Care Management 09/26/23 11/10/23 documented as of this encounter
--- OUTSIDE RECORDS SUMMARY | 2024-09-22 21:49 | XMS_ITS | Encounter Summary ---
Author Organization [facility] Address [address] [place] [address] Care Team Providers Care Manager Biostatistics Name Role Phone Mellissa Jiménez MD Primary Care Provider [phone] Ronel Thornton DO Primary Care Provider [phone] Daphnie Gillespie MD Unavailable Juliana Peralta ORACLE BRM DEVELOPER Unavailable [phone] Juliana Peralta ORACLE BRM DEVELOPER Unavailable [phone] Ronel Thornton DO Unavailable [phone] Kenyatta Taylor RN Unavailable [phone] Tiago Lew Unavailable [phone] Reason for Visit * Reason Onset Date Comments Eating disorder 08/04/2020 Encounter Details Date Type Department Care Team (Late st Contact Info) Description 08/04/2020 Telephone [facility] Interior Designer [address] [place] [address] [address] Martinez, CONSTRUCTION MGR Eating disorder Social History Tobacco Use Types Packs/Day Years Used Date Smoking Tobacco: Never Smokeless Tobacco: Never Alcohol Use Standard Drinks/Week Comments No 0 (1 standard drink = 0.6 oz pur e alcohol) Comments No Sex and Gender Information Value Date Recorded Sex Assigned at Not on file Legal Sex Female 6:25 PM MEDICAL OFFICE COORDINATOR Gender Identity Not on file Sexual Orientation [...] phone calls with Kenyatta's mother Esperanza and [facility] this week regarding Kenyatta's relapse, and mother's belief that she needs to be admitted to [facility]. Spoke with mother again this a.m, and they have a phone intake assessment with [facility] next SaturdayAugust 08. documented in this encounter Plan of Treatment Upcoming Encounters Date Type Department Care Team (Late st Contact Info) Description 01/20/2025 8:20 AM MEDICAL OFFICE COORDINATOR Office Visit [facility] - Family Medicine [address] [place] [address] Ronel Thortnon DO [address] [place] [address] documented as of this encounter Visit Diagnoses Not on filedocumented in this encounter Additional Health Concerns Infection Onset Date Last Indicated Resolved Time COVID-19 Under Investigation 08/10/2021 08/10/2021 08/10/2021 2:59 AM CDT documented as of this encounter Care Teams Manager Biostatistics Relationship Specialty Start Date End Date Mellissa Jiménez MD [address] [place] [address] [place] [address] PCP - General Family Medicine 04/25/20 03/17/23 Ronel Thornton DO [address] [place] [address] PCP - General Family Medicine 03/18/23 Daphnie Gillespie MD [address] [place] [address] PCP - Attributed-[facility] STL 02/11/23 04/11/23 Ronel Thornton DO [address] [place] [address] PCP - Attributed-[facility] STL 04/12/23 Juliana Peralta MSW Outpatient Music Rehabilitation Therapist Care Management 04/24/2304/11 Juliana Peralta MSW Outpatient Music Rehabilitation Therapist Care Management 04/30/2304/12 Kenyatta Taylor RN [address] [address] Rag Willow OperatorFormulation Technician 09/02/23 10/04/23 Tiago Lew Care Coordination Specialist Care Management 09/26/23 11/10/23 documented as of this encounter
--- OUTSIDE RECORDS SUMMARY | 2024-09-22 21:49 | XMS_ITS | Encounter Summary ---
Author Organization [facility] Address [address] [place] [address] Care Team Providers Care Hydraulic Punch Press Operator Name Role Phone Mellissa Jiménez MD Primary Care Provider [phone] Ronel Thornton DO Primary Care Provider [phone] Daphnie Gillespie MD Unavailable Juliana Peralta COPY DIRECTOR Unavailable [phone] Juliana Peralta COPY DIRECTOR Unavailable [phone] Ronel Thornton DO Unavailable Kenyatta Taylor RN Unavailable Tiago Lew Unavailable [phone] Reason for Visit * Reason Onset Date Comments Appointment 10/05/2020 Contraceptive management 10/05/2020 Encounter Details Date Type Department Care Team (Late st Contact Info) Description 10/05/2020 Telephone [facility] [address] [place], [place] [id number] [place] [address] [place] [address] Appointment; Contraceptive management Social History Tobacco Use Types Packs/Day Years Used Date Smoking Tobacco: Never Smokeless Tobacco: Never Alcohol Use Standard Drinks/Week Comments No 0 (1 standard drink = 0.6 oz pur e alcohol) Comments No Sex and Gender Information Value Date Recorded Sex Assigned at Not on file Legal Sex Female 6:25 PM CORPORATE DIRECTOR OF PHARMACY Gender Identity Not on file Sexual Orientation [...] the office yet to get scheduled. CB# [phone] documented in this encounter Plan of Treatment Upcoming Encounters Date Type Department Care Team (Late st Contact Info) Description 01/20/2025 8:20 AM CORPORATE DIRECTOR OF PHARMACY Office Visit [facility] Family Medicine [address] [place] [address] Ronel Thornton DO [address] [place] [address] documented as of this encounter Visit Diagnoses Not on filedocumented in this encounter Additional Health Concerns Infection Onset Date Last Indicated Resolved Time COVID-19 Under Investigation 08/10/2021 08/10/2021 08/10/2021 2:59 AM CDT documented as of this encounter Care Teams Hydraulic Punch Press Operator Relationship Specialty Start Date End Date Mellissa Jiménez MD [address] [place] [address] [place] [address] PCP - General Family Medicine 04/25/20 03/17/23 Ronel Thornton DO [address] [place] [address] PCP - General Family Medicine 03/18/23 [place] [address] [place] [phone] PCP - Attributed-[facility] STL 02/11/23 04/11/23 Ronel Thornton DO [address] [place] [address] PCP - Attributed-[facility] STL 04/12/23 Juliana Peralta MSW Outpatient Dispensary Clerk Care Management 04/24/2304/11 Juliana Peralta MSW Outpatient Dispensary Clerk Care Management 04/30/2304/12 Kenyatta Taylor RN [address] [address] Marine SurveyorAdministration Intern 09/02/23 10/04/23 Tiago Lew Care Coordination Specialist Care Management 09/26/23 11/10/23 documented as of this encounter
--- OUTSIDE RECORDS SUMMARY | 2024-09-22 21:49 | XMS_ITS | Encounter Summary ---
Author Organization [facility] Address [address] [facility] [place] [address] Care Team Providers Care Spanish Literature Professor Name Role Phone Ronel Thornton DO Primary Care Provider [phone] Ronel Thornton DO Unavailable [phone] Reason for Visit * Reason Onset Date Comments Medication Request 09/22/2024 Encounter Details Date Type Department Care Team (Late st Contact Info) Description 09/22/2024 Telephone [facility] - Family Medicine [address] [place] [address] Ronel Thornton DO [address] [place], [place] [id number] Medication Request Social History Tobacco Use Types [...] Recorded Patient Health Questionnaire-2 Score 0 07/07/2024 [facility] - [...] on file 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 [phone] * Telephone Encounter - Eli Delatorre - 09/22/2024 2:53 PM CDT Pt is asking if PCP can refill Olanzapine 5 MG states she is no longer seeing Dr Long she has to get a new psychiatrist. documented in this encounter Plan of Treatment Upcoming Encounters Date Type Department Care Team (Late st Contact Info) Description 01/20/2025 8:20 AM MARINE PAINTER Office Visit [facility] - Family Medicine [address] [place] [address] Ronel Thornton DO [address] [place] [address] documented as of this encounter Visit Diagnoses Not on filedocumented in this encounter Care Teams Spanish Literature Professor Relationship Specialty Start Date End Date Ronel Thornton DO [address] [place] [address] PCP - General Family Medicine 03/18/23 Ronel Thornton DO [address] [place] [address] PCP - Attributed-[facility] STL 04/12/23 documented as of this encounter
--- OUTSIDE RECORDS SUMMARY | 2024-09-22 21:49 | XMS_ITS | Clinical Summary ---
Author Organization [facility] Address [address] [place] [address] Phone Care Team Providers Care Flarer Name Role Phone Mellissa Jiménez MD Primary [...] on file Legal Sex Female 10:44 PM PATTERNMAKER APPRENTICE METAL Gender Identity Not on file Sexual Orientation [...] 52.2 kg (115 lb) 04/20/2023 2:30 AM PATTERNMAKER APPRENTICE METAL Height 152.4 cm (5') 04/20/2023 2:30 AM PATTERNMAKER APPRENTICE METAL Body Mass Index 22.46 04/20/2023 2:30 AM PATTERNMAKER APPRENTICE METAL Plan of Treatment Health Maintenance Due Date [...] 02/22/2003, Additional history exists [place] [address] [facility] [id number] OUT OF NETWORK Advance Directives For more information, please contact: [phone] * Full Code (Latest Code Status on File) Date Activated Date Inactivated Comments 04/20/2023 2:32 AM 04/21/2023 4:11 PM Care Teams Flarer Relationship Specialty Start Date End Date Mellissa Jiménez MD [address] [place] [id number] PCP - General Family Practice 04/20/23
--- OUTSIDE RECORDS SUMMARY | 2024-09-22 21:49 | XMS_ITS | Encounter Summary ---
Author Organization [facility] Address [address] [facility] [place] [address] Care Team Providers Care Data Scientist Name Role Phone Mellissa Jiménez MD Primary Care Provider Ronel Thornton DO Primary Care Provider [phone] Daphnie Gillespie MD Unavailable Juliana Peralta BOBBIN LOOSE END FINDER Unavailable [phone] Juliana Peralta Unavailable [phone] Ronel Thornton DO Unavailable [phone] Kenyatta Taylor RN Unavailable Tiago Lew Unavailable [phone] Encounter Details Date Type Department Care Team (Late st Contact Info) Description 07/28/2020 Telephone [facility] Pediatrics - Pulmonology [address] [place] [address] Bessie Erwin Social History Tobacco Use Types Packs/Day Years Used Date Smoking Tobacco: Never Smokeless Tobacco: Never Alcohol Use Standard Drinks/Week Comments No 0 (1 standard drink = 0.6 oz pur e alcohol) Comments No Sex and Gender Information Value Date Recorded Sex Assigned at Not on file Legal Sex Female 6:25 PM SHREDDING MACHINE TENDER Gender Identity Not on file Sexual Orientation [...] PM CDT Mom called regarding not eating [phone] Marla Gillespie documented in this encounter Plan of Treatment Upcoming Encounters Date Type Department Care Team (Late st Contact Info) Description 01/20/2025 8:20 AM SHREDDING MACHINE TENDER Office Visit [facility] Family [address] [address] Ronel Thornton DO [address] [place] [address] documented as of this encounter Visit Diagnoses Not on filedocumented in this encounter Additional Health Concerns Infection Onset Date Last Indicated Resolved Time COVID-19 Under Investigation 08/10/2021 08/10/2021 08/10/2021 2:59 AM CDT documented as of this encounter Care Teams Data Scientist Relationship Specialty Start Date End Date Mellissa Jiménez MD [address] [place] [address] [place] [address] PCP - General Family Medicine 04/25/20 03/17/23 Ronel Thornton DO [address] [place], [place] [address] [address] PCP - General Family Medicine 03/18/23 Daphnie Gillespie MD [address] [place] [phone] PCP - Attributed-[facility] STL 02/11/23 04/11/23 Ronel Thornton DO [address] [place] [address] [address] PCP - Attributed-[facility] STL 04/12/23 Juliana Peralta MSW Outpatient Pattern Keeper Care Management 04/24/2304/11 Juliana Peralta MSW Outpatient Pattern Keeper Care Management 04/30/2304/12 Kenyatta Taylor RN [address] [address] Production Line WorkerEntry Level Mechanical Engineer 09/02/23 10/04/23 Tiago Lew Care Coordination Specialist Care Management 09/26/23 11/10/23 documented as of this encounter
--- OUTSIDE RECORDS SUMMARY | 2024-09-22 21:49 | XMS_ITS | Clinical Summary ---
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 This disclosure is being madepursuant to the Care Everywhere program and may not contain all information available regarding this patient. Last updated 17.[facility] Allergies No known active allergies Medications * [...] 01/18/2020 Assessment & Plan (01/08/2021 3:06 PM EDM OPERATOR): Assessment: Major depressive disorder, generalized anxiety disorder and substance abuse disorder. 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 Assessment & Plan (04/07/2020 6:45 PM EDM OPERATOR): Assessment: Hx of major depressive disorder and generalized anxiety disorder. Pt has been seen by psychiatry and psychology, now improved since starting/optimizing zyprexa QHS, clonazepam TID, and prozac QD. Plan: - Prozac 30 mg QD (dose of 30 mg started on 03/09/20, Prozac initially began 02/07) - Zyprexa 5 mg QHS - Klonopin 0.5mg TID Assessment & Plan (04/06/2020 3:54 PM EDM OPERATOR): Assessment: Hx of major depressive disorder [...] TID Assessment & Plan (04/05/2020 10:49 AM EDM OPERATOR): Assessment: Hx of major depressive disorder [...] TID Assessment & Plan (04/04/2020 10:23 AM EDM OPERATOR): Assessment: Hx of major depressive disorder [...] TID Assessment & Plan (04/03/2020 6:30 PM EDM OPERATOR): Assessment: Hx of major depressive disorder [...] TID Assessment & Plan (04/01/2020 11:15 AM EDM OPERATOR): Assessment: Hx of major depressive disorder [...] dose) Assessment & Plan (03/31/2020 10:07 AM EDM OPERATOR): Assessment: Hx of major depressive disorder [...] dose) Assessment & Plan (03/30/2020 2:24 PM EDM OPERATOR): Assessment: Hx of major depressive disorder [...] dose) Assessment & Plan (03/29/2020 6:50 AM EDM OPERATOR): Assessment: Hx of major depressive disorder [...] dose) Assessment & Plan (03/27/2020 10:30 AM EDM OPERATOR): Assessment: Hx of major depressive disorder and generalized anxiety disorder. Pt seen by psychiatry on admission and was started elavil, but continued to have anxiety. Elavil was discontinued due to persistent tachycardia and hypotension. Based [facility], she was started on zyprexa [...] dose) Assessment & Plan (03/26/2020 11:15 AM EDM OPERATOR): Assessment: Hx of major depressive disorder [...] dose) Assessment & Plan (03/25/2020 8:58 AM EDM OPERATOR): Assessment: Hx of major depressive disorder [...] dose) Assessment & Plan (03/24/2020 6:44 AM EDM OPERATOR): Assessment: Hx of major depressive disorder [...] dose) Assessment & Plan (03/23/2020 12:19 PM EDM OPERATOR): Assessment: Hx of major depressive disorder [...] dose) Assessment & Plan (03/22/2020 10:47 AM EDM OPERATOR): Assessment: Hx of major depressive disorder [...] recommendations) Assessment & Plan (03/21/2020 3:11 PM EDM OPERATOR): Assessment: Hx of major depressive disorder [...] mg. Assessment & Plan (03/20/2020 10:31 AM EDM OPERATOR): Assessment: Hx of major depressive disorder and generalized anxiety disorder. Pt seen by psychiatry on admission and was started elavil, but continued to have anxiety. Elavil was discontinued due to persistent tachycardia and hypotension. Based [facility] and [facility], she was started on zyprexa QHS, [...] 03/21. Assessment & Plan (03/19/2020 10:38 AM EDM OPERATOR): Assessment: Hx of major depressive disorder [...] withdrawal Assessment & Plan (03/18/2020 12:58 PM EDM OPERATOR): Assessment: Hx of major depressive disorder [...] anxiety Assessment & Plan (03/17/2020 10:33 AM EDM OPERATOR): Assessment: Hx of major depressive disorder [...] appreciated Assessment & Plan (03/16/2020 2:24 PM EDM OPERATOR): Assessment: Hx of major depressive disorder [...] recommendations Assessment & Plan (03/15/2020 11:11 AM EDM OPERATOR): Assessment: Hx of major depressive disorder [...] anxiety Assessment & Plan (03/14/2020 6:28 AM EDM OPERATOR): Assessment: Hx of major depressive disorder [...] anxiety Assessment & Plan (03/13/2020 6:28 AM EDM OPERATOR): Assessment: Hx of major depressive disorder [...] anxiety Assessment & Plan (03/12/2020 11:35 AM EDM OPERATOR): Assessment: Hx of major depressive disorder [...] anxiety Assessment & Plan (03/11/2020 12:43 PM EDM OPERATOR): Assessment: Hx of major depressive disorder [...] anxiety Assessment & Plan (03/10/2020 6:11 AM EDM OPERATOR): Assessment: Hx of major depressive disorder [...] anxiety Assessment & Plan (03/09/2020 6:24 AM EDM OPERATOR): Assessment: Hx of major depressive disorder [...] anxiety Assessment & Plan (03/08/2020 10:51 AM EDM OPERATOR): Assessment: Hx of major depressive disorder [...] anxiety Assessment & Plan (03/07/2020 9:15 AM EDM OPERATOR): Assessment: Hx of major depressive disorder [...] recommendations -Develop daily schedule with assistance of director of early childhood education-Alma Assessment & Plan (03/06/2020 10:09 AM EDM OPERATOR): Assessment: Hx of major depressive disorder [...] anxiety Assessment & Plan (03/05/2020 9:56 AM EDM OPERATOR): Assessment: Hx of major depressive disorder [...] anxiety Assessment & Plan (03/04/2020 12:58 PM EDM OPERATOR): Assessment: Hx of major depressive disorder [...] anxiety Assessment & Plan (03/03/2020 3:16 PM EDM OPERATOR): Assessment: Hx of major depressive disorder [...] anxiety Assessment & Plan (03/01/2020 12:04 PM EDM OPERATOR): Assessment: Hx of major depressive disorder [...] anxiety Assessment & Plan (02/29/2020 12:53 PM EDM OPERATOR): Assessment: Hx of major depressive disorder [...] anxiety Assessment & Plan (02/28/2020 9:22 AM EDM OPERATOR): Assessment: Hx of major depressive disorder [...] anxiety Assessment & Plan (02/27/2020 10:27 AM EDM OPERATOR): Assessment: Hx of major depressive disorder [...] negative Assessment & Plan (02/26/2020 11:12 AM EDM OPERATOR): Assessment: Hx of major depressive disorder [...] pending Assessment & Plan (02/25/2020 9:33 AM EDM OPERATOR): Assessment: Hx of major depressive disorder [...] pending Assessment & Plan (02/24/2020 6:51 AM EDM OPERATOR): Assessment: Hx of major depressive disorder [...] pending Assessment & Plan (02/23/2020 10:19 AM EDM OPERATOR): Assessment: Hx of major depressive disorder [...] pending Assessment & Plan (02/22/2020 11:07 AM EDM OPERATOR): Assessment: Hx of major depressive disorder [...] QHS Assessment & Plan (02/21/2020 10:54 AM EDM OPERATOR): Assessment: History of major depressive disorder [...] tablet Assessment & Plan (02/20/2020 11:33 AM EDM OPERATOR): Assessment: History of major depressive disorder [...] tablet Assessment & Plan (02/19/2020 3:05 PM EDM OPERATOR): Assessment: History of major depressive disorder [...] tablet Assessment & Plan (02/18/2020 10:13 AM EDM OPERATOR): Assessment: History of major depressive disorder [...] tablet Assessment & Plan (02/17/2020 12:26 PM EDM OPERATOR): Assessment: History of major depressive disorder [...] tablet Assessment & Plan (02/16/2020 1:14 PM EDM OPERATOR): Assessment: History of major depressive disorder [...] tablet Assessment & Plan (02/15/2020 12:31 PM EDM OPERATOR): Assessment: History of major depressive disorder [...] tablet Assessment & Plan (02/14/2020 2:24 PM EDM OPERATOR): Assessment: History of major depressive disorder [...] tablet Assessment & Plan (02/13/2020 12:00 PM EDM OPERATOR): Assessment: History of major depressive disorder [...] tablet Assessment & Plan (02/12/2020 11:20 AM EDM OPERATOR): Assessment: History of major depressive disorder [...] tablet Assessment & Plan (02/11/2020 11:54 AM EDM OPERATOR): Assessment: History of major depressive disorder [...] tablet Assessment & Plan (02/10/2020 12:09 PM EDM OPERATOR): Assessment: History of major depressive disorder [...] tablet Assessment & Plan (02/09/2020 11:50 AM EDM OPERATOR): Assessment: History of major depressive disorder [...] [place] Assessment & Plan (02/08/2020 12:54 PM EDM OPERATOR): Assessment: History of major depressive disorder [...] [place] Assessment & Plan (02/07/2020 11:47 AM EDM OPERATOR): Assessment: History of major depressive disorder [...] [place] Assessment & Plan (02/06/2020 8:12 AM EDM OPERATOR): Assessment: History of major depressive disorder [...] [place] Assessment & Plan (02/05/2020 9:12 AM EDM OPERATOR): Assessment: History of major depressive disorder [...] [place] Assessment & Plan (02/04/2020 12:43 PM EDM OPERATOR): Assessment: History of major depressive disorder [...] [place] Assessment & Plan (02/03/2020 2:28 PM EDM OPERATOR): Assessment: History of major depressive disorder [...] [place] Assessment & Plan (02/02/2020 4:02 PM EDM OPERATOR): Assessment: History of major depressive disorder [...] [place] Assessment & Plan (02/01/2020 12:12 PM EDM OPERATOR): Assessment: History of major depressive disorder [...] [place] Assessment & Plan (01/31/2020 1:04 PM EDM OPERATOR): Assessment: History of major depressive disorder [...] [place] Assessment & Plan (01/30/2020 10:30 AM EDM OPERATOR): Assessment: History of major depressive disorder [...] [place] Assessment & Plan (01/29/2020 9:40 PM EDM OPERATOR): Assessment: History of major depressive disorder [...] [place] Assessment & Plan (01/28/2020 11:59 AM EDM OPERATOR): Assessment: History of major depressive disorder [...] lunch Assessment & Plan (01/27/2020 3:57 PM EDM OPERATOR): Assessment: History of major depressive disorder [...] lunch Assessment & Plan (01/26/2020 6:01 PM EDM OPERATOR): Assessment: History of major depressive disorder [...] [place] Assessment & Plan (01/25/2020 2:56 PM EDM OPERATOR): Assessment: History of major depressive disorder [...] PO. Assessment & Plan (01/24/2020 8:11 AM EDM OPERATOR): Assessment: History of major depressive disorder [...] (02/22/20) Assessment & Plan (01/23/2020 7:09 AM EDM OPERATOR): Assessment: History of major depressive disorder [...] (02/22/20) Assessment & Plan (01/22/2020 7:52 AM EDM OPERATOR): Assessment: History of major depressive disorder [...] (02/22/20) Assessment & Plan (01/21/2020 7:40 AM EDM OPERATOR): Assessment: History of major depressive disorder [...] (02/22/20) Assessment & Plan (01/20/2020 7:36 AM EDM OPERATOR): Assessment: History of major depressive disorder [...] (02/22/20) Assessment & Plan (01/19/2020 7:22 AM EDM OPERATOR): Assessment: History of major depressive disorder [...] (02/22/20) Assessment & Plan (01/18/2020 4:35 PM EDM OPERATOR): Assessment: History of major depressive disorder [...] range. Assessment & Plan (04/08/2020 1:31 PM EDM OPERATOR): Assessment: Malnutrition is secondary to ARFID, [...] PT Assessment & Plan (04/07/2020 2:52 PM EDM OPERATOR): Assessment: Malnutrition is secondary to ARFID, [...] PT Assessment & Plan (04/07/2020 6:44 PM EDM OPERATOR): Assessment: Marlee is a 19 year [...] follow up with adolescent medicine on 04/18, [facility] on 05/02, and and scheduling Psych intake visit SOCIAL: - General medicine team spoke with and updated mother on 04/06 LABS: daily urine spec gravity, BMP/Mg/Phos Q / Assessment & Plan (04/06/2020 6:45 PM EDM OPERATOR): Assessment: Marlee is a 19 year [...] / Assessment & Plan (04/05/2020 3:22 PM EDM OPERATOR): Assessment: Malnutrition is secondary to ARFID, [...] PT Assessment & Plan (04/05/2020 10:49 AM EDM OPERATOR): Assessment: Marlee is a 19 year [...] T/ Assessment & Plan (04/04/2020 3:59 PM EDM OPERATOR): Assessment: Malnutrition is secondary to ARFID, [...] daily Assessment & Plan (04/04/2020 10:21 AM EDM OPERATOR): Assessment: Marlee is a 19 year [...] / Assessment & Plan (04/03/2020 12:59 PM EDM OPERATOR): Assessment: Marlee is a 19 year [...] daily Assessment & Plan (04/02/2020 4:19 PM EDM OPERATOR): Assessment: Marlee is a 19 year [...] daily Assessment & Plan (04/01/2020 11:55 AM EDM OPERATOR): Assessment: Malnutrition is secondary to ARFID [...] daily Assessment & Plan (04/01/2020 11:15 AM EDM OPERATOR): Assessment: Marlee is a 19 year [...] daily Assessment & Plan (03/31/2020 12:05 PM EDM OPERATOR): Assessment: Malnutrition is secondary to ARFID [...] daily Assessment & Plan (03/31/2020 10:06 AM EDM OPERATOR): Assessment: Marlee is a 19 year [...] daily Assessment & Plan (03/30/2020 2:24 PM EDM OPERATOR): Assessment: Marlee is a 19 year [...] daily Assessment & Plan (03/29/2020 10:40 AM EDM OPERATOR): Assessment: Marlee is a 19 year [...] allowed in room. May have water from [email or web address] cup. Oral fluids limited to 250 mL [...] daily Assessment & Plan (03/28/2020 12:29 PM EDM OPERATOR): Assessment: Marlee is a 19 year [...] daily Assessment & Plan (03/27/2020 10:34 AM EDM OPERATOR): Assessment: Marlee is a 19 year [...] 03/27: Increase to 50 mL/hr tonight. [facility] is aware of increase but [...] daily Assessment & Plan (03/26/2020 11:20 AM EDM OPERATOR): Assessment: Marlee is a 19 year [...] daily Assessment & Plan (03/25/2020 12:30 PM EDM OPERATOR): Assessment: Marlee is a 19 year [...] daily Assessment & Plan (03/24/2020 5:02 PM EDM OPERATOR): Assessment: Malnutrition is secondary to ARFID [...] anxiety Assessment & Plan (03/24/2020 11:19 AM EDM OPERATOR): Assessment: Marlee is a 19 year [...] allowed in room. May have water from [email or web address] cup. - May take shower while sitting [...] daily Assessment & Plan (03/23/2020 12:20 PM EDM OPERATOR): Assessment: Marlee is a 19 year [...] daily Assessment & Plan (03/22/2020 12:20 PM EDM OPERATOR): Assessment: Marlee is a 19 year [...] daily Assessment & Plan (03/21/2020 3:10 PM EDM OPERATOR): Assessment: Marlee is a 19 year [...] 03/15/2020. Assessment & Plan (03/20/2020 10:32 AM EDM OPERATOR): Assessment: Marlee is a 19 year [...] 03/15/2020. Assessment & Plan (03/19/2020 10:37 AM EDM OPERATOR): Assessment: Marlee is a 19 year [...] 03/15/2020. Assessment & Plan (03/18/2020 1:00 PM EDM OPERATOR): Assessment: Marlee is a 19 year [...] 03/15/2020. Assessment & Plan (03/17/2020 10:36 AM EDM OPERATOR): Assessment: Marlee is a 19 year [...] 03/15/2020. Assessment & Plan (03/16/2020 2:10 PM EDM OPERATOR): Assessment: Marlee is a 19 year [...] 03/15/2020. Assessment & Plan (03/15/2020 11:10 AM EDM OPERATOR): Assessment: Marlee is a 19 year [...] 03/15/2020 Assessment & Plan (03/14/2020 9:53 AM EDM OPERATOR): Assessment: Marlee is a 19 year [...] 03/15/2020 Assessment & Plan (03/13/2020 9:39 AM EDM OPERATOR): Assessment: Marlee is a 19 year [...] week Assessment & Plan (03/12/2020 11:35 AM EDM OPERATOR): Assessment: Marlee is a 19 year [...] week Assessment & Plan (03/11/2020 12:43 PM EDM OPERATOR): Assessment: Marlee is a 19 year [...] week Assessment & Plan (03/10/2020 9:12 AM EDM OPERATOR): Assessment: Marlee is a 19 year [...] in Assessment & Plan (03/09/2020 10:22 AM EDM OPERATOR): Assessment: Marlee is a 19 year [...] in Assessment & Plan (03/08/2020 10:52 AM EDM OPERATOR): Assessment: Marlee is a 19 year [...] in Assessment & Plan (03/07/2020 9:18 AM EDM OPERATOR): Assessment: Marlee is a 19 year [...] in Assessment & Plan (03/06/2020 10:09 AM EDM OPERATOR): Assessment: Marlee is a 19 year [...] in Assessment & Plan (03/05/2020 9:56 AM EDM OPERATOR): Assessment: Marlee is a 19 year [...] in Assessment & Plan (03/04/2020 12:58 PM EDM OPERATOR): Assessment: Marlee is a 19 year [...] A/P Assessment & Plan (03/03/2020 3:15 PM EDM OPERATOR): Assessment: Marlee is a 19 year [...] A/P Assessment & Plan (03/02/2020 12:06 PM EDM OPERATOR): Assessment: Marlee is a 19 year [...] A/P Assessment & Plan (03/01/2020 12:05 PM EDM OPERATOR): Assessment: Marlee is a 19 year [...] A/P Assessment & Plan (02/29/2020 12:52 PM EDM OPERATOR): Assessment: Marlee is a 19 year [...] A/P Assessment & Plan (02/28/2020 9:12 AM EDM OPERATOR): Assessment: Marlee is a 19 year [...] A/P Assessment & Plan (02/27/2020 10:03 AM EDM OPERATOR): Assessment: Marlee is a 19 year [...] A/P Assessment & Plan (02/26/2020 11:12 AM EDM OPERATOR): Assessment: Marlee is a 19 year [...] A/P Assessment & Plan (02/25/2020 9:32 AM EDM OPERATOR): Assessment: Marlee is a 19 year [...] A/P Assessment & Plan (02/24/2020 10:42 AM EDM OPERATOR): Assessment: Marlee is a 19 year [...] A/P Assessment & Plan (02/23/2020 10:22 AM EDM OPERATOR): Assessment: Marlee is a 19 year [...] A/P Assessment & Plan (02/22/2020 11:25 AM EDM OPERATOR): Assessment: Marlee is a 19 year [...] A/P Assessment & Plan (02/21/2020 10:54 AM EDM OPERATOR): Assessment: Marlee is a 19 year [...] A/P Assessment & Plan (02/20/2020 11:31 AM EDM OPERATOR): Assessment: Marlee is a 19 year [...] A/P Assessment & Plan (02/19/2020 3:04 PM EDM OPERATOR): Assessment: Marlee is a 19 year [...] TPN. Assessment & Plan (02/18/2020 10:14 AM EDM OPERATOR): Assessment: Marlee is a 19 year [...] Sat) Assessment & Plan (02/17/2020 12:30 PM EDM OPERATOR): Assessment: Marlee is a 19 year [...] pending Assessment & Plan (02/16/2020 2:29 PM EDM OPERATOR): Assessment: Marlee is a 19 year [...] pending Assessment & Plan (02/15/2020 12:33 PM EDM OPERATOR): Assessment: Marlee is a 19 year [...] pending Assessment & Plan (02/14/2020 2:23 PM EDM OPERATOR): Assessment: Marlee is a 19 year [...] pending Assessment & Plan (02/13/2020 11:59 AM EDM OPERATOR): Assessment: Marlee is a 19 year [...] pending Assessment & Plan (02/12/2020 11:49 AM EDM OPERATOR): Assessment: Marlee is a 19 year [...] recs Assessment & Plan (02/11/2020 11:56 AM EDM OPERATOR): Assessment: Marlee is a 19 year [...] recs Assessment & Plan (02/10/2020 12:11 PM EDM OPERATOR): Assessment: Marlee is a 19 year [...] SG) Assessment & Plan (02/09/2020 11:49 AM EDM OPERATOR): Assessment: Marlee is a 19 year [...] SG) Assessment & Plan (02/08/2020 12:54 PM EDM OPERATOR): Assessment: Marlee is a 19 year [...] recs. Assessment & Plan (02/07/2020 12:06 PM EDM OPERATOR): Assessment: Marlee is a 19 year [...] SG) Assessment & Plan (02/06/2020 8:12 AM EDM OPERATOR): Assessment: Marlee is a 19 year [...] SG) Assessment & Plan (02/05/2020 9:12 AM EDM OPERATOR): Assessment: Marlee is a 19 year [...] TG) Assessment & Plan (02/04/2020 12:52 PM EDM OPERATOR): Assessment: Marlee is a 19 year [...] TG) Assessment & Plan (02/03/2020 2:38 PM EDM OPERATOR): Assessment: Marlee is a 19 year [...] TG) Assessment & Plan (02/02/2020 4:02 PM EDM OPERATOR): Assessment: Marlee is a 19 year [...] QOD Assessment & Plan (02/01/2020 12:08 PM EDM OPERATOR): Assessment: Marlee is a 19 year [...] RBCs. Assessment & Plan (01/31/2020 1:05 PM EDM OPERATOR): Assessment: Marlee is a 19 year [...] hematuria Assessment & Plan (01/30/2020 10:30 AM EDM OPERATOR): Assessment: Marlee is a 19 year [...] 10.2 Assessment & Plan (01/29/2020 9:39 PM EDM OPERATOR): Assessment: Marlee is a 19 year [...] syndrome Assessment & Plan (01/28/2020 11:59 AM EDM OPERATOR): Assessment: Marlee is a 19 year [...] QOD Assessment & Plan (01/27/2020 3:59 PM EDM OPERATOR): Assessment: Marlee is a 19 year [...] QOD Assessment & Plan (01/26/2020 5:14 PM EDM OPERATOR): Assessment: Marlee is a 19 year [...] QOD Assessment & Plan (01/25/2020 2:58 PM EDM OPERATOR): Assessment: Marlee is a 19 year [...] QOD Assessment & Plan (01/24/2020 11:54 AM EDM OPERATOR): Assessment: Marlee is a 19 year [...] orthostatics Assessment & Plan (01/23/2020 7:09 AM EDM OPERATOR): Assessment: Marlee is a 19 year [...] orthostatics Assessment & Plan (01/22/2020 4:25 PM EDM OPERATOR): Assessment: Marlee is a 19 year [...] orthostatics Assessment & Plan (01/21/2020 8:15 AM EDM OPERATOR): Assessment: Marlee Chavez is a 19 [...] orthostatics Assessment & Plan (01/20/2020 7:36 AM EDM OPERATOR): Assessment: Marlee Chavez is a 19 [...] orthostatics Assessment & Plan (01/19/2020 7:20 AM EDM OPERATOR): Assessment: Marlee Chavez is a 19 [...] orthostatics Assessment & Plan (01/18/2020 4:30 PM EDM OPERATOR): Assessment: Marlee Chavez is a 19 [...] consult Assessment & Plan (03/27/2020 10:35 AM EDM OPERATOR): Assessment: Marlee is admitted on ED Protocol for severe malnutrition. Following feeding plan per Adolescent Medicine and Nutrition. Plan: - see plan under ARFID problem Assessment & Plan (03/26/2020 11:20 AM EDM OPERATOR): Assessment: Marlee is admitted on ED Protocol for severe malnutrition. Following feeding plan per Adolescent Medicine and Nutrition. Plan: - see plan under ARFID problem Assessment & Plan (03/24/2020 11:19 AM EDM OPERATOR): Assessment: Marlee is admitted on ED Protocol for severe malnutrition. Following feeding plan per Adolescent Medicine and Nutrition. Plan: - see plan under ARFID problem Assessment & Plan (03/23/2020 9:00 AM EDM OPERATOR): Assessment: Marlee is admitted on ED Protocol for severe malnutrition. Following feeding plan per Adolescent Medicine and Nutrition. Plan: - see plan under ARFID problem Assessment & Plan (03/22/2020 12:21 PM EDM OPERATOR): Assessment: Marlee is admitted on ED Protocol for severe malnutrition. Following feeding plan per Adolescent Medicine and Nutrition. Plan: - see plan under ARFID problem Assessment & Plan (03/17/2020 4:26 PM EDM OPERATOR): Assessment: Malnutrition is secondary to ARFID [...] anxiety Assessment & Plan (03/15/2020 11:10 AM EDM OPERATOR): Assessment: Marlee is admitted on ED Protocol for severe malnutrition. Following feeding plan per Adolescent Medicine and Nutrition. Plan: - see plan under ARFID problem Assessment & Plan (03/10/2020 11:17 AM EDM OPERATOR): Assessment: Malnutrition is secondary to ARFID [...] needed Assessment & Plan (03/06/2020 10:09 AM EDM OPERATOR): Assessment: Marlee is admitted on ED Protocol for severe malnutrition. Following feeding plan per Adolescent Medicine and Nutrition. Plan: - see plan under ARFID problem Assessment & Plan (03/04/2020 1:41 PM EDM OPERATOR): Assessment: Marlee is admitted on ED Protocol for severe malnutrition. Following feeding plan per Adolescent Medicine and Nutrition. Plan: - see plan under ARFID problem Assessment & Plan (03/04/2020 11:50 AM EDM OPERATOR): Assessment: Marlee is admitted on ED Protocol for severe malnutrition. Following feeding plan per Adolescent Medicine and Nutrition. Plan: - see plan under ARFID problem Assessment & Plan (03/03/2020 3:53 PM EDM OPERATOR): Assessment: Malnutrition is secondary to ARFID [...] dad. Assessment & Plan (02/27/2020 9:57 AM EDM OPERATOR): Assessment: Marlee is admitted on ED Protocol for severe malnutrition. Following feeding plan per Adolescent Medicine and Nutrition. Plan: - see plan under ARFID problem Assessment & Plan (02/26/2020 9:59 AM EDM OPERATOR): Assessment: Malnutrition is secondary to ARFID [...] plan. Assessment & Plan (02/25/2020 5:48 PM EDM OPERATOR): Assessment: Malnutrition is secondary to ARFID [...] plan. Assessment & Plan (02/18/2020 4:54 PM EDM OPERATOR): Assessment: Malnutrition is secondary to ARFID [...] daily Assessment & Plan (02/11/2020 11:47 AM EDM OPERATOR): Assessment: Malnutrition is secondary to ARFID [...] BID Assessment & Plan (02/09/2020 11:50 AM EDM OPERATOR): Assessment: Marlee is admitted on ED Protocol for severe malnutrition. Following feeding plan per Adolescent Medicine and Nutrition. Plan: - see plan under ARFID problem Assessment & Plan (02/07/2020 11:47 AM EDM OPERATOR): Assessment: Marlee is admitted on ED Protocol for severe malnutrition. Following feeding plan per [facility]oles[facility] Nutrition. Plan: - see plan under ARFID problem Assessment & Plan (02/06/2020 8:12 AM EDM OPERATOR): Assessment: Marlee is admitted on ED Protocol for severe malnutrition. Following feeding plan per Adolescent Medicine and Nutrition. Plan: - see plan under ARFID problem Assessment & Plan (02/05/2020 9:01 AM EDM OPERATOR): Assessment: Marlee is admitted on ED Protocol for severe malnutrition. Following feeding plan per Adolescent Medicine and Nutrition. Plan: - see plan under ARFID problem Assessment & Plan (02/04/2020 12:34 PM EDM OPERATOR): Assessment: Marlee is admitted on ED Protocol for severe malnutrition. Following feeding plan per Adolescent Medicine and Nutrition. Plan: - see plan under ARFID problem Assessment & Plan (02/03/2020 2:28 PM EDM OPERATOR): Assessment: Marlee is admitted on ED Protocol for severe malnutrition. Following feeding plan per Adolescent Medicine and Nutrition. Plan: - see plan under ARFID problem Assessment & Plan (02/02/2020 3:57 PM EDM OPERATOR): Assessment: Marlee is admitted on ED Protocol for severe malnutrition. Following feeding plan per Adolescent Medicine and Nutrition. Plan: - see plan under ARFID problem Assessment & Plan (02/01/2020 12:10 PM EDM OPERATOR): Assessment: Marlee is admitted on ED Protocol for severe malnutrition. Following feeding plan per Adolescent Medicine and Nutrition. Plan: - see plan under ARFID problem Assessment & Plan (01/31/2020 1:04 PM EDM OPERATOR): Assessment: Marlee is admitted on ED Protocol for severe malnutrition. Following feeding plan per Adolescent Medicine and Nutrition. Plan: - see plan under ARFID problem Assessment & Plan (01/30/2020 10:28 AM EDM OPERATOR): Assessment: Marlee is admitted on ED Protocol for severe malnutrition. Following feeding plan per Adolescent Medicine and Nutrition. Plan: - see plan under ARFID problem Assessment & Plan (01/28/2020 4:29 PM EDM OPERATOR): Assessment: Malnutrition is secondary to ARFID [...] BID Assessment & Plan (01/24/2020 11:54 AM EDM OPERATOR): Assessment: Marlee is admitted on ED Protocol for severe malnutrition. Following feeding plan per Adolescent Medicine and Nutrition. Plan: - see plan under ARFID problem Assessment & Plan (01/23/2020 7:09 AM EDM OPERATOR): Assessment: Marlee is admitted on ED Protocol for severe malnutrition. Following feeding plan per Adolescent Medicine and Nutrition. Plan: - see plan under ARFID problem Assessment & Plan (01/22/2020 9:48 AM EDM OPERATOR): Assessment: Malnutrition is secondary to ARFID [...] () Assessment & Plan (01/22/2020 7:52 AM EDM OPERATOR): Assessment: Marlee is admitted on ED Protocol for severe malnutrition. Following feeding plan per Adolescent Medicine and Nutrition. Plan: - see plan under ARFID problem Assessment & Plan (01/21/2020 10:33 AM EDM OPERATOR): Assessment: Malnutrition is secondary to ARFID [...] () Assessment & Plan (01/21/2020 7:40 AM EDM OPERATOR): Assessment: Marlee is admitted on ED Protocol for severe malnutrition. Following feeding plan per Adolescent Medicine and Nutrition. Plan: - see plan under ARFID problem Assessment & Plan (01/20/2020 7:36 AM EDM OPERATOR): Assessment: Marlee is admitted on ED Protocol for severe malnutrition. Following feeding plan per Adolescent Medicine and Nutrition. Plan: - see plan under ARFID problem Assessment & Plan (01/19/2020 7:22 AM EDM OPERATOR): Assessment: Marlee is admitted on ED Protocol for severe malnutrition. Following feeding plan per Adolescent Medicine and Nutrition. Plan: - see plan under ARFID problem Assessment & Plan (01/18/2020 4:25 PM EDM OPERATOR): Assessment: Marlee Chavez is a 19 [...] orthostatics Assessment & Plan (01/17/2020 12:38 PM EDM OPERATOR): Assessment: Marlee Chavez is a 19 [...] anxiety Assessment & Plan (01/16/2020 1:41 PM EDM OPERATOR): Assessment: Marlee Chavez is a 19 [...] anxiety Assessment & Plan (01/15/2020 8:49 PM EDM OPERATOR): Assessment: Malnutrition is secondary to ARFID [...] counseling. Assessment & Plan (01/15/2020 11:57 AM EDM OPERATOR): Assessment: Marlee Chavez is a 19 [...] anxiety Assessment & Plan (01/14/2020 1:00 PM EDM OPERATOR): Assessment: Malnutrition is secondary to ARFID [...] () Assessment & Plan (01/14/2020 9:54 AM EDM OPERATOR): Assessment: Marlee Chavez is a 19 [...] anxiety Assessment & Plan (01/13/2020 2:34 PM EDM OPERATOR): Assessment: Marlee Chavez is a 19 [...] anxiety Assessment & Plan (01/13/2020 12:01 PM EDM OPERATOR): Moderate protein-calorie malnutrition Assessment: Marlee Chavez [...] thereafter Assessment & Plan (01/12/2020 3:40 PM EDM OPERATOR): Moderate protein-calorie malnutrition Assessment: Marlee Chavez [...] chart) Assessment & Plan (01/12/2020 1:25 PM EDM OPERATOR): Assessment: Marlee Chavez is a 19 [...] anxiety Assessment & Plan (01/11/2020 11:43 AM EDM OPERATOR): Assessment: Marlee Chavez is a 19 [...] cysts Assessment & Plan (01/10/2020 9:32 AM EDM OPERATOR): Assessment: Marlee Chavez is a 19 [...] cysts Assessment & Plan (01/09/2020 11:08 AM EDM OPERATOR): Assessment: Marlee Chavez is a 19 [...] cysts Assessment & Plan (01/08/2020 1:32 PM EDM OPERATOR): Assessment: Marlee Chavez is a 19 [...] cysts Assessment & Plan (01/07/2020 2:52 PM EDM OPERATOR): Assessment: Marlee Chavez is a 19 [...] cysts Assessment & Plan (01/06/2020 11:27 AM EDM OPERATOR): Assessment: Marlee Chavez is a 19 [...] cysts Assessment & Plan (01/05/2020 3:49 PM EDM OPERATOR): Assessment: Marlee Chavez is a 19 [...] cysts Assessment & Plan (01/04/2020 1:53 PM EDM OPERATOR): Assessment: Marlee Chavez is a 19 [...] cysts Assessment & Plan (01/03/2020 12:34 AM EDM OPERATOR): Assessment: Marlee Chavez is a 19 [...] 03/18/2023 Assessment & Plan (01/24/2022 5:04 PM EDM OPERATOR): Assessment: Marlee Chavez is a 20 [...] gabapentin Assessment & Plan (01/23/2022 6:56 PM EDM OPERATOR): Assessment: Marlee Chavez is a 20 [...] pain Assessment & Plan (01/08/2021 3:05 PM EDM OPERATOR): Assessment: Patient is an 20 year [...] I&Os Assessment & Plan (01/07/2021 4:52 PM EDM OPERATOR): Assessment: Patient is an 20 year [...] it Assessment & Plan (01/06/2021 6:00 PM EDM OPERATOR): Assessment: Patient is an 20 year [...] I&Os Assessment & Plan (01/05/2021 1:27 PM EDM OPERATOR): Assessment: Patient is an 20 year [...] I&Os Assessment & Plan (01/04/2021 9:17 PM EDM OPERATOR): Assessment: Patient is an 20 year [...] I&Os Assessment & Plan (01/03/2021 8:43 PM EDM OPERATOR): Assessment: Patient is an 20 year [...] wearing condom. She has upcoming appointment with roll changer next month at which time, she will be getting a IUD. Plan: -urine test today -GC, chlamydia, trichomonas testing Assessment & Plan (05/24/2020 2:43 PM CDT): Will get urine Hcg and STI testing. Mom is aware and Marlee is ok with us communicating results to her mother. Purging 03/24/2020 05/24/2020 Assessment & Plan (04/05/2020 3:23 PM EDM OPERATOR): Assessment: Has been drinking excessive amounts of water and putting her fingers in her mouth to induce vomiting. No recorded emesis since 03/25. Plan: Will limit access to water to 250ml at a time. May only bathe once per day after she has taken her meds, had breakfast and lunch. Assessment & Plan (04/04/2020 12:58 PM EDM OPERATOR): Assessment: Has been drinking excessive amounts of water and putting her fingers in her mouth to induce vomiting. No recorded emesis since 03/25. Plan: Will limit access to water to 250ml at a time. May only bathe once per day after she has taken her meds, had breakfast and lunch. Assessment & Plan (04/01/2020 11:55 AM EDM OPERATOR): Assessment: Has been drinking excessive amounts of water and putting her fingers in her mouth to induce vomiting. No recorded emesis since 03/25. Plan: Will limit access to water to 250ml at a time. May only bathe once per day after she has taken her meds, had breakfast and lunch. Assessment & Plan (03/24/2020 4:53 PM EDM OPERATOR): Assessment: Has been drinking excessive amounts of water and putting her fingers in her mouth to induce vomiting. Plan: Will limit access to water to 250ml at a time. May only bathe once per day after she has taken her meds, had breakfast and lunch. Ovarian cyst 01/12/2020 03/19/2020 Assessment & Plan (03/15/2020 11:10 AM EDM OPERATOR): Assessment: on ultrasound on R Plan: -Radiology recommended repeat imaging in 6 months for ovarian cysts Assessment & Plan (03/04/2020 1:41 PM EDM OPERATOR): Assessment: on ultrasound on R Plan: -Radiology recommended repeat imaging in 6 months for ovarian cysts Assessment & Plan (03/04/2020 11:50 AM EDM OPERATOR): Assessment: on ultrasound on R Plan: -Radiology recommended repeat imaging in 6 months for ovarian cysts Assessment & Plan (02/27/2020 9:58 AM EDM OPERATOR): Assessment: on ultrasound on R Plan: -Radiology recommended repeat imaging in 6 months for ovarian cysts Assessment & Plan (01/28/2020 11:59 AM EDM OPERATOR): Assessment: on ultrasound on R Plan: -Radiology recommended repeat imaging in 6 months for ovarian cysts Assessment & Plan (01/27/2020 3:52 PM EDM OPERATOR): Assessment: on ultrasound on R Plan: -Radiology recommended repeat imaging in 6 months for ovarian cysts Assessment & Plan (01/26/2020 6:01 PM EDM OPERATOR): Assessment: on ultrasound on R Plan: -Radiology recommended repeat imaging in 6 months for ovarian cysts Assessment & Plan (01/13/2020 2:33 PM EDM OPERATOR): Assessment: on ultrasound on R Plan: -Radiology recommended repeat imaging in 6 months for ovarian cysts Assessment & Plan (01/12/2020 1:26 PM EDM OPERATOR): Assessment: on ultrasound on R Plan: -Radiology recommended repeat imaging in 6 months for ovarian cysts Self-injurious behavior 03/25/201705/12 Major depressive disorder, severe 03/21/2017 05/24/2020 Intractable vomiting 020 Encounters * This document contains information received from the source organization and may not represent a complete record from that organization. Date Type Department Care Team Description 09/22/2024 Telephone [facility] [address] [place] [address] Ronel Thornton, Medication Request 07/07/2024 Travel from Last 3 Months Immunizations Immunization Administration Dates Next Due [employer] primary monoval ent 12+ yr 0.3mL Purple [...] Recorded Patient Health Questionnaire-2 Score 0 07/07/2024 [facility] - Occupational [...] on file Legal Sex Female 6:25 PM EDM OPERATOR Gender Identity Not on file Sexual [...] st Contact Info) Description 01/20/2025 8:20 AM EDM OPERATOR Office Visit [facility] - [facility] [address] [place] [id number] Ronel Thornton DO [address] [place] [id number] Health Maintenance Due Date Last Done [...] [facility] ACCOUNT BILL Comment: Performed at: - [facility] [id number] Applied Statistician: Meredith Gil MD, Phone: [phone] Performed at: 01 - [facility] [address] [id number] Applied Statistician: Meredith Gil MD, Phone: [phone] Diagnosis Comment(A) [facility] ACCOUNT BILL Comment: EPITHELIAL [...] 12/05/2023 5:09 PM CDT Performed at: [address] [place] [id number] Applied Statistician: Meredith Gil MD, Phone: [phone] Specimen Comment: [id number] Specimen Comment: Source.............Cervix Specimen Comment: No. of containers..01 ThinPrep Vial us Nai Jurado MD LAB - PATHOLOGY/CYTOLOGY [place] Final Result [facility] ACCOUNT BILL [address] [place] [address] * HIV-1 HIV-2 ANTIBODY + HIV P24 AG PANEL (11/29/2023 10:55 AM CDT) Pathologist [facility] HIV Screen 4th Generation w Reflex Non Reactive Non Reactive [facility] ACCOUNT BILL Comment: HIV-1/HIV-2 antibodies and HIV-1 p24 antigen were NOT detected. There is no laboratory evidence of HIV infection. HIV Negative Blood BLOOD SPECIMEN / Unknown 11/29/2023 10:55 AM CDT 11/29/2023 Narrative [facility] ACCOUNT BILL - 11/30/2023 10:10 AM CDT Performed at: 01 - [facility] [address] [place], [place] [id number] Applied Statistician: Karlos Huffman PhD, Phone: [phone] Nai Jurado MD LAB - CHEMISTRY ORDERABLES Fi nal Result [facility] ACCOUNT BILL [address] [place] [address] * HEPATITIS C AB W/RFLX TO HCV RNA QN PCR (12/07/2021) Hepatitis C Antibody NON-REACTI VE NON-REACT [facility] Signal to Cut-Off 0.08 <1.00 [facility] Comment: HCV antibody was non-reactive. There is no laboratory evidence of HCV infection. In most cases, no further action is required. However, if recent HCV exposure is suspected, a test for HCV RNA (test code 66314) is suggested. For additional information please refer to http://education.[employer]/faq/IMG43j8 (This link is being provided for informational/ educational purposes only.) Test Performed at: [facility] [address] [place] [address] PURVI PABLO DO,MPH Blood BLOOD SPECIMEN / Unknown 12/07/2021 12/07/2021 10:47 AM CDT Karrie Mack MD LAB - CHEMISTRY ORDERABLES Final Result [facility] [address] [place] [address] from Last 3 Months or Most Recently Relevant to Health Maintenance Insurance [facility] Member Subscriber Plan / Payer ( fective 2023-) Name:Ciarashaka Marlee A Relation to Subscriber:Child Name:NAI NEWMAN Date of :1984 (Home) (Work) Address: [address] [place] [address] Payer ID:[id number] ([facility]) Group ID:[id number] Type:Commercial Address: [place] [id number] [facility] Member Subscriber Plan / Payer ( fective 2023-) Name:Ciarashaka Marlee A Relation to Subscriber:Child Name:NAI NEWMAN Date of :1982 (Home) (Work) Address: [address] [place] [address] Payer ID:[id number] ([facility]) Group ID:[id number] Type:Commercial Address: [place] [id number] [place] [phone] [facility] Advance Directives * Full [...] PM 06/22/2022 2:44 PM 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
[2024-09-22 22:01] VITALS: BP 127/86
[2024-09-22 23:00] VITALS: BP 132/80
[2024-09-22 23:30] VITALS: BP 135/80
[2024-09-23] VITALS (10 sets, daily range): BP systolic 103–132; BP diastolic 60–94; PULSE 75–105; RESP 16–22; TEMP 36.2–36.6; O2SAT 98–100; BMI 19.4
[2024-09-23] MEDS: MORPHINE SULFATE (*CRX) 2 MG/ML INJ IV PUSH ×4 (00:01→20:10)
[2024-09-23] MEDS: SODIUM CHLORIDE 0.9% IV 1,000 ML 999 ML IV CONT (00:03)
[2024-09-23] MEDS: KETOROLAC 15 MG/ML VIAL (*BKC) IV PUSH (00:03)
--- NOTE | 2024-09-23 00:23 | ECG_ITS ---
Test Date: 2024-09-23 07:20:56 Measurements Intervals Keo Rate: 83 P: 64 WI: 124 QRS: 69 QRSD: 86 T: 51 QT: 391 QTc: 460 Interpretive Statements SINUS RHYTHM NORMAL ECG Compared to ECG 07/27/2024 17:36:12 HEART RATE HAS DECREASED Electronically Signed On 09-23-2024 07:49:30 CDT by Bertram Yousif D.O.
[2024-09-23] MEDS: metroNIDAZOLE 500 MG/ISO 100ML 500 MG/100 ML BAG 100 MG IVPB ×3 (00:57→15:35)
[2024-09-23] MEDS: cefTRIAXone 1 GM in SODIUM CHLORIDE 0.9% IV 50 ML 100 ML IVPB ×2 (00:58→23:31)
[2024-09-23 01:05] LABS: Magnesium 1.8 mg/dL (1.6-2.3)
[2024-09-23 01:09] LABS: CRP < 0.5 mg/dL (<1.0)
--- NOTE | 2024-09-23 01:36 | ADMGEN ---
This patient, Kenyatta Moy, was admitted to [facility] Surg Room 304-02. Patient/family oriented to hospital policies and general routines including ID bracelet, bed and alarms, visiting hours, pain management, procedures, bathroom and other care routines, personal items, smoking policy, room service/diet, and visiting hours. Information on how to activate the Rapid Response Team has been discussed. Patient/Family are encouraged to report perceived risks to care and to ask questions if they do not understand what they are told or what they should do.
[2024-09-23 01:39] LABS: Procalcitonin 0.3 ng/mL
[2024-09-23] MEDS: LACTATED RINGERS 1,000 ML 999 ML IV CONT (01:52)
--- NOTE | 2024-09-23 03:09 | PCRCNOTE ---
RT informed at 0245 of STAT EKG ordered in ED at 0023; patient transferred to Med/Surg 304 at approx 0130; RT arrived to room at 0250 to perform; patient is shaking and says she is familiar with EKG's and cannot do one at this moment; RN informed.
[2024-09-23] MEDS: ONDANSETRON INJ 4 MG/2 ML VIAL IV PUSH ×3 (03:16→12:39)
[2024-09-23 03:39] LABS: Hematocrit 30.4 % (37.0-47.0); Hemoglobin 10.1 g/dL (12.0-15.0); Immature Granulocyte Percent A 0.3 % (0-0.5); Lymphocytes Absolute Auto 0.60 K/mm3 (0.9-3.2); Mean Corpuscular HGB Conc 33.2 g/dl (32-36); Mean Corpuscular Hemoglobin 30.1 pg (26-34); Mean Corpuscular Volume 90.5 fl (80-100); Nucleated Red Blood Cells Absolute Auto 0.000 K/mm3 (0.0-0.012); Nucleated Red Blood Cells Perc 0.0 % (0.0-0.2); Platelet Count Result 216 k/mm3 (150-375); Red Blood Count 3.36 M/mm3 (4.2-5.4); White Blood Count 13.6 K/mm3 (4.5-10.0)
[2024-09-23 04:04] LABS: Alanine Aminotransferase 25 U/L (6-35); Albumin Level 4.1 g/dL (3.5-5.1); Alkaline Phosphatase 53 U/L (38-126); Anion Gap 13 mmol/L (4-12); Aspartate Amino Transferase 43 U/L (14-36); Bilirubin,Total 0.3 mg/dL (0.2-1.3); Blood Urea Nitrogen 8 mg/dL (7-17); Calcium 8.1 mg/dL (8.4-10.2); Carbon Dioxide 18 mmol/L (22-30); Chloride 104 mmol/L (98-107); Estimated CRCL calculation 83 ml/min; Estimated Glomerular Filt Rate > 60; Glucose 111 mg/dL (65-110); Magnesium 1.6 mg/dL (1.6-2.3); Potassium 3.9 mmol/L (3.4-5.0); Sodium 135 mmol/L (137-145); Total Protein 6.5 g/dL (6.3-8.2)
--- NOTE | 2024-09-23 06:45 | PC.NURSE ---
Pt received 2mg Morphine IVPUSH @9557. 0636 pt yelling out and jumping up and down in room. Pt stated jumping was the only thing that helped the pain. Notified Fausto Henry regarding this. New order for Tylenol 650mg PO & Ativan 1 mg PO NOW. Pt did not take the Tylenol, stating it would be to much for her stomach.
[2024-09-23] MEDS: LORazepam (*CRX) 1 MG TABLET PO (07:07)
--- NOTE | 2024-09-23 07:40 | P.HP_ITS ---
H&P: HPI History of Present Illness Date/Time: 09/23/24 07:40 Chief Complaint: n/v Narrative: 24-year-old female with pmh/of cyclic vomiting syndrome, daily marijuana use, anxiety admitted with c/o abd pain, N/V. Patient reports having diffuse abdominal pain, nausea, vomiting, difficulty keeping down any food or drink over the past several hours- whcih happened before as well. Denies diarrhea, constipation, no fevers. She smokes marijuana. has not been traveling anywhere, reports no hiking, no dining out, no sick contact. in ed: she was seen in the ED earlier yesterday for anxiety, discharged home. later she came back. she was tachycardic, tachypneic, very anxious. Blood pressure stable. Afebrile here. Cbc 27.8. H&H is stable. CMP with bicarb of 17, anion gap of 17. Normal blood sugar. Creatinine ok. Normal LFTs and lipase. UA with evidence of dehydration, no signs of infection. Urine drug screen is positive for cannabinoids. CT scan of abdomen/pelvis was obtained and showing diffuse enteritis. Patient given 2 L of fluid, Compazine, Benadryl, Pepcid, IM Haldol. She remained tachycardic after 2L fluids. Meeting sepsis criteria based on VS and leukocytosis. Blood cx obtained. Was started on Rocephin/Flagyl, patient to be admitted for further eval. Pt is seen and examined. She just got zofran and overall feeling ok. Was able to have food and able to keep it down. Review of Systems Review of Systems: All systems reviewed & are unremarkable except as noted in HPI and below (h/p) FOR[facility]LY [facility], [facility] Past Medical History Medical History Drug withdrawal seizure History of eating disorder Anxiety Depression Family History Family History Grandparent History of alcoholism Depression Mother History of alcoholism Hypertension Depression Social History Social History Smoking status: Never smoker Alcohol intake: never Substance use: current Substance use type: marijuana Last use: 07/18/2024 Do You Feel Safe in your Home?: Yes Lack of Transportation: YES Lack of Food: Never True Current Housing: I Have Housing Concerned About Future Housing: No Difficulty Paying Gas/Electric Bills: No Difficulty Paying for Meds: No Currently Unemployed: No Education: High School Diploma/GED Difficulty w/ Childcare or Family Care: No Living arrangements: with roommate(s) Occupation/Education: unemployed Additional occupation/education comments: not currently working or in school Gender identity (if verbalized by the patient): Female Spiritual care concerns: No Meds Home Medications and Allergies Home Medications ?Medication ?Instructions ?Recorded ?Confirmed ?Type escitalopram oxalate 10 mg tablet 10 mg PO DAILY 07/18/24 09/23/24 History olanzapine 2.5 mg tablet 5 mg PO DAILY 09/23/24 09/23/24 History Allergies Allergy/AdvReac Type Severity Reaction Status Date / Time No Known Allergies Allergy Verified 09/22/24 07:38 Vital Signs Vital Signs - 24 hr 09/22/24 17:36 09/22/24 19:45 09/22/24 22:01 Temperature 97.4 F L Pulse Rate 110 H 121 H Respiratory Rate 16 22 H Blood Pressure 146/104 H 128/91 H 127/86 Pulse Oximetry 99 98 Oxygen Delivery 09/22/24 23:00 09/22/24 23:30 09/23/24 00:30 Temperature Pulse Rate Respiratory Rate Blood Pressure 132/80 135/80 132/94 H Pulse Oximetry 99 Oxygen Delivery 09/23/24 01:46 09/23/24 02:20 09/23/24 04:15 Temperature 97.7 F Pulse Rate 93 75 Respiratory Rate 22 H Blood Pressure 129/82 Pulse Oximetry 98 Oxygen Delivery Room Air 09/23/24 04:25 09/23/24 06:00 Temperature 97.8 F Pulse Rate 75 105 H Respiratory Rate 18 Blood Pressure 106/75 Pulse Oximetry 100 Oxygen Delivery Exam Narrative: resting with eyes closed Const: General: comfortable Eyes: Sclera: sclerae normal Resp: Effort & Inspection: normal respiratory effort Auscultation: clear to auscultation bilaterally Cardio: Rate: regular rate Rhythm: regular rhythm GI: GI Palp: Yes Soft to palpation and Yes Tenderness to palpation present (GI) Auscultation: normal bowel sounds Skin: General skin exam: normal color Psych: Affect: normal affect H&P: Results Labs Labs: Short CBC 09/22/24 09/23/24 Range/Units 19:49 03:33 WBC 27.8 H 13.6 H (4.5-10.0) K/mm3 Hgb 12.4 10.1 L (12.0-15.0) g/dL Hct 35.9 L 30.4 L (37.0-47.0) % Plt Count 401 H D 216 (150-375) k/mm3 BMP 09/22/24 09/23/24 19:49 03:33 Sodium 137 135 L Potassium 3.5 3.9 Chloride 103 104 Carbon Dioxide 17 L 18 L BUN 14 D 8 D Creatinine 0.91 0.67 L Glucose 131 H 111 H Calcium 9.6 8.1 L Liver Function 09/22/24 09/23/24 Range/Units 19:49 03:33 Total Bilirubin 0.4 0.3 (0.2-1.3) mg/dL AST 47 H 43 H (14-36) U/L ALT 26 25 (6-35) U/L Alkaline Phosphatase 72 53 (38-126) U/L Albumin 4.9 4.1 (3.5-5.1) g/dL Urine 09/22/24 Range/Units 20:19 Urine Color Yellow (Yellow) Urine Appearance Clear (Clear) Urine pH 5.5 (5.0-9.0) Ur Specific [place] 1.033 (1.001-1.035) Urine Protein 3+ H (Negative) mg/dL Urine Glucose (UA) Negative (Negative) mg/dL Assessment and Plan Assessment and plan (1) Anxiety: Code(s): F41.9 - Anxiety disorder, unspecified Status: Acute (2) Cyclical vomiting: Code(s): R11.15 - Cyclical vomiting syndrome unrelated to migraine Status: Acute (3) Enteritis: Code(s): K52.9 - Noninfective gastroenteritis and colitis, unspecified Status: Acute (4) Dehydration: Code(s): E86.0 - Dehydration Status: Acute (5) Sepsis: Qualifiers: Sepsis acute organ dysfunction status: unspecified Sepsis type: sepsis due to unspecified organism Qualified Code(s): A41.9 - Sepsis, unspecified organism Code(s): A41.9 - Sepsis, unspecified organism Status: Acute (6) Marijuana abuse: Code(s): F12.10 - Cannabis abuse, uncomplicated Status: Acute Plan Pt is admitted with abd pain,n/v. CT scan of abdomen/pelvis was obtained and showing diffuse enteritis. WBC 27.8. UA poitive for cannabinoids. She was tachycardic and tachypnic- met sepsis criteria. She received 2 l on IV fluids and currently getting at 100 ml/h, will continue until able to tolerate PO fluids ok. She was staretd on rocephin and flagyl. Trends labs. Pain meds Nausea meds prn she does have h/o anxiety and her home meds will be restarted. Counselling completed for marijuana abuse. Pt is a full code. Quality VTE Prophylaxis VTE prophylaxis: mechanical ordered Hospitalist MIPS Advance Care Plan I have confirmed that the patient's Advanced Care Plan is present, code status is documented, or surrogate decision maker is listed in patient medical record.: Yes Medication Reconciliation I have utilized all available resources to obtain, update and review the patients current medications (includes all prescriptions, OTC, herbals, cannabis, and nutritional supplements).: Yes
[2024-09-23] MEDS: ESCITALOPRAM OXALATE 10 MG TABLET PO (08:38)
[2024-09-23] MEDS: FAMOTIDINE 20 MG/2 ML VIAL IV PUSH ×2 (08:38→20:10)
[2024-09-23] MEDS: SODIUM CHLORIDE 0.9% IV 1,000 ML 100 ML IV CONT ×2 (08:39→20:16)
[2024-09-23] MEDS: LORazepam (*CRX) 0.5 MG TABLET PO (18:59)
[2024-09-24] VITALS: PULSE 72
[2024-09-24] MEDS: metroNIDAZOLE 500 MG/ISO 100ML 500 MG/100 ML BAG 100 MG IVPB ×4 (01:11→23:56)
[2024-09-24] MEDS: ONDANSETRON INJ 4 MG/2 ML VIAL IV PUSH ×3 (02:58→22:34)
[2024-09-24 05:37] VITALS: BP 133/85; PULSE 90; RESP 19; TEMP 36.6; O2SAT 99
[2024-09-24] MEDS: ALPRAZolam (*CRX) 0.5 MG TABLET PO (05:46)
[2024-09-24 06:00] LABS: Hematocrit 32.0 % (37.0-47.0); Hemoglobin 10.5 g/dL (12.0-15.0); Immature Granulocyte Percent A 0.3 % (0-0.5); Lymphocytes Absolute Auto 2.30 K/mm3 (0.9-3.2); Mean Corpuscular HGB Conc 32.8 g/dl (32-36); Mean Corpuscular Hemoglobin 30.1 pg (26-34); Mean Corpuscular Volume 91.7 fl (80-100); Nucleated Red Blood Cells Absolute Auto 0.000 K/mm3 (0.0-0.012); Nucleated Red Blood Cells Perc 0.0 % (0.0-0.2); Platelet Count Result 219 k/mm3 (150-375); Red Blood Count 3.49 M/mm3 (4.2-5.4); White Blood Count 6.6 K/mm3 (4.5-10.0)
[2024-09-24 06:21] LABS: Alanine Aminotransferase 21 U/L (6-35); Albumin Level 3.7 g/dL (3.5-5.1); Alkaline Phosphatase 57 U/L (38-126); Anion Gap 9 mmol/L (4-12); Aspartate Amino Transferase 76 U/L (14-36); Bilirubin,Total 0.2 mg/dL (0.2-1.3); Blood Urea Nitrogen 6 mg/dL (7-17); Calcium 8.5 mg/dL (8.4-10.2); Carbon Dioxide 23 mmol/L (22-30); Chloride 107 mmol/L (98-107); Estimated CRCL calculation 71 ml/min; Estimated Glomerular Filt Rate > 60; Glucose 74 mg/dL (65-110); Magnesium 2.0 mg/dL (1.6-2.3); Potassium 3.1 mmol/L (3.4-5.0); Sodium 139 mmol/L (137-145); Total Protein 6.1 g/dL (6.3-8.2)
[2024-09-24] MEDS: ESCITALOPRAM OXALATE 10 MG TABLET PO (08:23)
[2024-09-24] MEDS: FAMOTIDINE 20 MG/2 ML VIAL IV PUSH ×2 (08:23→22:22)
[2024-09-24] MEDS: HYDROcodone/acetaminophen (*CRX) 5-325 MG TABLET 1 TAB PO (10:01)
[2024-09-24] MEDS: POTASSIUM CHLORIDE 20 MEQ PACKET (FOR LIQUID) 40 MEQ PO (11:09)
[2024-09-24 14:00] VITALS: BP 115/82; PULSE 86; RESP 20; TEMP 36.4; O2SAT 100
--- NOTE | 2024-09-24 14:19 | P.PNIM_ITS ---
Progress Note: A&P Assessment and Plan (1) Anxiety: Code(s): F41.9 - Anxiety disorder, unspecified Status: Acute (2) Cyclical vomiting: Code(s): R11.15 - Cyclical vomiting syndrome unrelated to migraine Status: Acute (3) Enteritis: Code(s): K52.9 - Noninfective gastroenteritis and colitis, unspecified Status: Acute (4) Dehydration: Code(s): E86.0 - Dehydration Status: Acute (5) Sepsis: Qualifiers: Sepsis acute organ dysfunction status: unspecified Sepsis type: sepsis due to unspecified organism Qualified Code(s): A41.9 - Sepsis, unspecified organism Code(s): A41.9 - Sepsis, unspecified organism Status: Acute (6) Marijuana abuse: Code(s): F12.10 - Cannabis abuse, uncomplicated Status: Acute Plan Pt is admitted with abd pain,n/v. CT scan of abdomen/pelvis was obtained and showing diffuse enteritis. WBC 27.8. UA poitive for cannabinoids. She was tachycardic and tachypnic- met sepsis criteria. She received 2 l on IV fluids and currently getting at 100 ml/h, will continue until able to tolerate PO fluids ok. She was staretd on rocephin and flagyl. Trends labs. Pain meds Nausea meds prn she does have h/o anxiety and her home meds will be restarted. Counselling completed for marijuana abuse. Pt is a full code. 09/24 doing better. will continue IV antibiotics. ua culture still pending. BC still pending. if BC negative prelim-anticipate discharge in am Time Spent With Patient Time with patient: 25 - 35 minutes Subjective Date/time seen: 09/24/24 14:19 Interval history: 24-year-old female with pmh/of cyclic vomiting syndrome, daily marijuana use, anxiety admitted with c/o abd pain, N/V. Patient reports having diffuse abdominal pain, nausea, vomiting, difficulty keeping down any food or drink over the past several hours- whcih happened before as well. Denies diarrhea, constipation, no fevers. She smokes marijuana. has not been traveling anywhere, reports no hiking, no dining out, no sick contact. in ed: she was seen in the ED earlier yesterday for anxiety, discharged home. later she came back. she was tachycardic, tachypneic, very anxious. Blood pressure stable. Afebrile here. Cbc 27.8. H&H is stable. CMP with bicarb of 17, anion gap of 17. Normal blood sugar. Creatinine ok. Normal LFTs and lipase. UA with evidence of dehydration, no signs of infection. Urine drug screen is positive for cannabinoids. CT scan of abdomen/pelvis was obtained and showing diffuse enteritis. Patient given 2 L of fluid, Compazine, Benadryl, Pepcid, IM Haldol. She remained tachycardic after 2L fluids. Meeting sepsis criteria based on VS and leukocytosis. Blood cx obtained. Was started on Rocephin/Flagyl, patient to be admitted for further eval. Pt is seen and examined. She just got zofran and overall feeling ok. Was able to have food and able to keep it down. 09/24 pt is doing better today, still nauseated . bc still pending. will continue iv antibiotics for now and downgrade to po in am. anticipate discharge tomorrow. Review of Systems Review of Systems: All systems reviewed & are unremarkable except as noted in HPI and below (h/p) Exam Narrative: resting with eyes closed Const: General: comfortable Eyes: Sclera: sclerae normal Resp: Effort & Inspection: normal respiratory effort Auscultation: clear to auscultation bilaterally Cardio: Rate: regular rate Rhythm: regular rhythm GI: Auscultation: normal bowel sounds Skin: General skin exam: normal color Psych: Affect: normal affect Objective Data Vital Signs Vital Signs: Vital Signs - 24 hr 09/23/24 16:00 09/23/24 20:00 09/23/24 21:27 Temperature 97.1 F L Pulse Rate 78 81 Respiratory Rate 16 Blood Pressure 117/60 Pulse Oximetry 98 Oxygen Delivery Room Air 09/24/24 00:00 09/24/24 05:37 09/24/24 08:00 Temperature 97.9 F Pulse Rate 72 90 Respiratory Rate 19 Blood Pressure 133/85 Pulse Oximetry 99 Oxygen Delivery Room Air Intake/Output Intake/Output: Intake & Output 09/21/24 09/22/24 09/23/24 09/24/24 23:59 23:59 23:59 23:59 Intake Total 1000 2080 890 Balance 1000 2080 890 Meds/Results Medications: Active Medications Generic Name Dose Route Start Last Admin Trade Name Freq PRN Reason Stop Dose Admin Acetaminophen 650 mg 09/23/24 00:21 Acetaminophen 650 Mg Suppository RECTAL Q6H PRN Mild Pain (1-3) or Fever Hydrocodone Bitart/Acetaminophen 1 tab 09/24/24 09:33 09/24/24 10:01 Hydrocodone/Acetaminophen (*Crx) 5-325 Mg Tablet PO 1 tab Q4H PRN Administration Pain Rated 4-6 Dextrose 12.5 gm 09/23/24 00:21 Dextrose 50% 25 Gm/50 Ml Syringe IV PUSH PRN PRN Hypoglycemia Protocol Escitalopram Oxalate 10 mg 09/23/24 09:00 09/24/24 08:23 Escitalopram Oxalate 10 Mg Tablet PO 10 mg DAILY CELINA Administration Famotidine 20 mg 09/23/24 09:00 09/24/24 08:23 Famotidine 20 Mg/2 Ml Vial IV PUSH 20 mg Q12HR CELINA Administration Glucagon 1 mg 09/23/24 00:21 Glucagon For Inj 1 Mg Vial IM PRN PRN Hypoglycemia Protocol Glucose 15 gm 09/23/24 00:21 Glucose Oral Gel 15 Gm Of Glucse In 37.5 Gm Tube PO PRN PRN Hypoglycemia Protocol Ceftriaxone Sodium 1 gm/ 50 mls @ 100 mls/hr 09/23/24 23:00 09/23/24 23:31 Sodium Chloride IVPB 100 mls/hr Q24H CELINA Administration Metronidazole 500 mg in 100 mls @ 100 mls/hr 09/23/24 08:00 09/24/24 09:23 Flagyl 500 Mg/Iso Soln 100 Ml IVPB Infused Q8H ECLINA Infusion Sodium Chloride 1,000 mls @ 100 mls/hr 09/23/24 00:25 09/23/24 23:17 Normal Saline Iv IV CONT Not Given .Q10H CELINA Dextrose 1,000 mls @ 100 mls/hr 09/23/24 00:21 Dextrose 5% 1,000 Ml IVPB PRN PRN Hypoglycemia Protocol Morphine Sulfate 2 mg 09/23/24 00:21 09/23/24 20:10 Morphine Sulfate (*Crx) 2 Mg/Ml Inj IV PUSH 2 mg Q2H PRN Administration Pain Rated 7-10 Olanzapine 5 mg 09/23/24 09:00 09/24/24 08:23 Olanzapine 5 Mg Tablet PO 5 mg DAILY CELINA Administration Ondansetron HCl 4 mg 09/23/24 00:21 09/24/24 02:58 Ondansetron Inj 4 Mg/2 Ml Vial IV PUSH 4 mg Q4H PRN Administration Nausea Potassium Chloride 40 meq 09/24/24 10:35 09/24/24 11:09 Potassium Chloride 20 Meq Packet (For Liquid) PO 40 meq DAILY CELINA Administration Prochlorperazine Edisylate 10 mg 09/23/24 00:21 Prochlorperazine Edisylate 10 Mg/2 Ml Vial IV PUSH Q6H PRN Nausea And Vomiting Radiology Results: ITS Impressions Abdomen/Pelvis CT 09/22/24 22:58 IMPRESSION: Findings suggesting a diffuse enteritis from the level of proximal transverse colon to the rectum. Labs Labs: Laboratory Results - last 24 hr 09/24/24 04:51 WBC 6.6 RBC 3.49 L Hgb 10.5 L Hct 32.0 L MCV 91.7 MCH 30.1 MCHC 32.8 RDW 13.0 Plt Count 219 MPV 10.4 Immature Gran % (Auto) 0.3 Neut % (Auto) 54.9 Lymph % (Auto) 35.0 [place] % (Auto) 9.3 H Eos % (Auto) 0.2 Baso % (Auto) 0.3 Lymph # (Auto) 2.30 [place] # (Auto) 0.6 Eos # (Auto) 0.0 Baso # (Auto) 0.0 Abs Immat Gran (auto) 0.02 Absolute Neuts (auto) 3.6 Absolute Nucleated RBC 0.000 Nucleated RBC % 0.0 Sodium 139 Potassium 3.1 L Chloride 107 Carbon Dioxide 23 Anion Gap 9 BUN 6 L Creatinine 0.80 Estim Creat Clear Calc 71 Estimated GFR > 60 Glucose 74 Calcium 8.5 Magnesium 2.0 Total Bilirubin 0.2 AST 76 H ALT 21 Alkaline Phosphatase 57 Total Protein 6.1 L Albumin 3.7 Quality VTE Prophylaxis VTE prophylaxis: mechanical ordered
[2024-09-24] MEDS: MORPHINE SULFATE (*CRX) 2 MG/ML INJ IV PUSH (15:20)
[2024-09-24] MEDS: LORazepam INJ (*CRX) 2 MG/ML VIAL (16:29)
[2024-09-24] MEDS: LORazepam INJ (*CRX) 2 MG/ML VIAL IV PUSH (16:31)
[2024-09-24 20:25] VITALS: BP 128/68; PULSE 94; RESP 14; TEMP 36.1; O2SAT 97
[2024-09-24] MEDS: cefTRIAXone 1 GM in SODIUM CHLORIDE 0.9% IV 50 ML 100 ML IVPB (22:24)
[2024-09-25] MEDS: hydrOXYzine HCL 12.5 MG TABLET PO ×2 (00:30→08:39)
[2024-09-25 05:00] VITALS: BP 133/89; PULSE 96; RESP 20; TEMP 36.3; O2SAT 100
[2024-09-25 06:22] LABS: Hematocrit 32.6 % (37.0-47.0); Hemoglobin 10.8 g/dL (12.0-15.0); Immature Granulocyte Percent A 0.3 % (0-0.5); Lymphocytes Absolute Auto 2.13 K/mm3 (0.9-3.2); Mean Corpuscular HGB Conc 33.1 g/dl (32-36); Mean Corpuscular Hemoglobin 30.0 pg (26-34); Mean Corpuscular Volume 90.6 fl (80-100); Nucleated Red Blood Cells Absolute Auto 0.000 K/mm3 (0.0-0.012); Nucleated Red Blood Cells Perc 0.0 % (0.0-0.2); Platelet Count Result 225 k/mm3 (150-375); Red Blood Count 3.60 M/mm3 (4.2-5.4); White Blood Count 5.9 K/mm3 (4.5-10.0)
[2024-09-25 06:48] LABS: Alanine Aminotransferase 20 U/L (6-35); Albumin Level 3.8 g/dL (3.5-5.1); Alkaline Phosphatase 55 U/L (38-126); Anion Gap 8 mmol/L (4-12); Aspartate Amino Transferase 59 U/L (14-36); Bilirubin,Total 0.3 mg/dL (0.2-1.3); Blood Urea Nitrogen 4 mg/dL (7-17); Calcium 8.8 mg/dL (8.4-10.2); Carbon Dioxide 22 mmol/L (22-30); Chloride 106 mmol/L (98-107); Estimated CRCL calculation 70 ml/min; Estimated Glomerular Filt Rate > 60; Glucose 77 mg/dL (65-110); Magnesium 2.0 mg/dL (1.6-2.3); Potassium 3.4 mmol/L (3.4-5.0); Sodium 136 mmol/L (137-145); Total Protein 6.1 g/dL (6.3-8.2)
[2024-09-25] MEDS: metroNIDAZOLE 500 MG/ISO 100ML 500 MG/100 ML BAG 100 MG IVPB (08:39)
[2024-09-25] MEDS: POTASSIUM CHLORIDE 20 MEQ PACKET (FOR LIQUID) 40 MEQ PO (08:39)
[2024-09-25] MEDS: ESCITALOPRAM OXALATE 10 MG TABLET PO (08:39)
[2024-09-25] MEDS: FAMOTIDINE 20 MG/2 ML VIAL IV PUSH (08:39)
[2024-09-25] MEDS: SODIUM CHLORIDE 0.9% IV 1,000 ML 100 ML IV CONT (08:40)
[2024-09-25] MEDS: MORPHINE SULFATE (*CRX) 2 MG/ML INJ IV PUSH ×2 (08:50→13:20)
[2024-09-25] MEDS: ONDANSETRON INJ 4 MG/2 ML VIAL IV PUSH (08:51)
--- NOTE | 2024-09-25 13:23 | PC.NURSE ---
pt has a history of anxiety and PTSD, she has been intermittently anxious throughout shift, she will stand at bedside and march in place and bounce up and down stating that that is what helps her calm down, at this time she is standing at bedside bent half way over and moving feet back and forth
[2024-09-25 14:00] VITALS: BP 114/68; PULSE 89; RESP 18; TEMP 35.9; O2SAT 94
--- NOTE | 2024-09-25 14:53 | PM.DS ---
DS: Admitting Diagnosis Discharge Date 09/25 Admitting Diagnosis colitis DS: Discharge Diagnosis Discharge Diagnosis (1) Anxiety: Code(s): F41.9 - Anxiety disorder, unspecified Status: Acute (2) Cyclical vomiting: Code(s): R11.15 - Cyclical vomiting syndrome unrelated to migraine Status: Acute (3) Enteritis: Code(s): K52.9 - Noninfective gastroenteritis and colitis, unspecified Status: Acute (4) Dehydration: Code(s): E86.0 - Dehydration Status: Acute (5) Sepsis: Qualifiers: Sepsis acute organ dysfunction status: unspecified Sepsis type: sepsis due to unspecified organism Qualified Code(s): A41.9 - Sepsis, unspecified organism Code(s): A41.9 - Sepsis, unspecified organism Status: Acute (6) Marijuana abuse: Code(s): F12.10 - Cannabis abuse, uncomplicated Status: Acute DS: Summary Hospital Course Hospital Course: Pt is admitted with abd pain,n/v. CT scan of abdomen/pelvis was obtained and showing diffuse enteritis. WBC 27.8. UA poitive for cannabinoids. She was tachycardic and tachypneic- met sepsis criteria. She received 2 l on IV fluids and currently getting at 100 ml/h, will continue until able to tolerate PO fluids ok. She was started on rocephin and flagyl. Counselling completed for marijuana abuse. She was on IV rocephin and downgraded to augmentin on 09/25. She will get 6 more doses with last dose 09/27 at 2100pm. Prelim BC negative (will watch for final culture). She was able to keep food down and tolerated PO fluids ok. Her wbc normal, VS stable- hr 89, rr 18. She will be discharged with a close f/u with PCP. UA culture didnot grow any bacteria. Time spent discussing smoking cessation with patient: 3 to 10 minutes Status at Discharge Functional status at discharge: independent ambulation Overall status at discharge: patient is progressing back to baseline Time Spent with Patient Time attestation: Total time spent providing and/or coordinating discharge services: Time spent: Greater than 30 minutes Exam Narrative: resting with eyes closed Const: General: comfortable Eyes: Sclera: sclerae normal Resp: Effort & Inspection: normal respiratory effort Auscultation: clear to auscultation bilaterally Cardio: Rate: regular rate Rhythm: regular rhythm GI: Auscultation: normal bowel sounds Skin: General skin exam: normal color Psych: Affect: normal affect DS: Data Data Completed and Pending Labs on day of discharge: Labs from last 24 hours 09/25/24 05:50 WBC 5.9 RBC 3.60 L Hgb 10.8 L Hct 32.6 L MCV 90.6 MCH 30.0 MCHC 33.1 RDW 12.7 Plt Count 225 MPV 10.1 Immature Gran % (Auto) 0.3 Neut % (Auto) 53.1 Lymph % (Auto) 36.1 [place] % (Auto) 9.7 H Eos % (Auto) 0.3 Baso % (Auto) 0.5 Lymph # (Auto) 2.13 [place] # (Auto) 0.6 Eos # (Auto) 0.0 Baso # (Auto) 0.0 Abs Immat Gran (auto) 0.02 Absolute Neuts (auto) 3.1 Absolute Nucleated RBC 0.000 Nucleated RBC % 0.0 Sodium 136 L Potassium 3.4 Chloride 106 Carbon Dioxide 22 Anion Gap 8 BUN 4 L Creatinine 0.81 Estim Creat Clear Calc 70 Estimated GFR > 60 Glucose 77 Calcium 8.8 Magnesium 2.0 Total Bilirubin 0.3 AST 59 H ALT 20 Alkaline Phosphatase 55 Total Protein 6.1 L Albumin 3.8 Preliminary micro results at discharge 09/23/24 00:44 Blood Culture - Preliminary Blood Discharge Plan Discharge Attending physician on discharge: Gaurav Donaldson Discharging Clinician: Lilibeth Lambert Patient Disposition: Home Activity: june shower Diet: regular Discharge Instructions: You were admitted for nausea and vomititng. CT scan of abdomen/pelvis was obtained and showing diffuse enteritis. You received IV fluids and was started on rocephin and flagyl- IV antibiotics. Counselling completed for marijuana abuse. Please avoid using marijuana as it can cause sever nausea. We swithced you to augmentin on 09/25 (antibitic). You will need a total of 5 more doses with last dose 09/27 at 9 pm. Prelim blood cultures negative (will watch for final culture). Please f/u with primary care provider with 1 week after discharge. Patient Instructions: Antibiotic Form, Depression (GEN), Help Prevent Suicide (GEN), Colitis (ED) Patient Language: Mongolian Stand Alone Forms: General Discharge Information Follow-up/Referrals: UNKNOWN,DOCTOR [Primary Care Provider] - 1 Week Discharge Medications: New amoxicillin-pot clavulanate 875-125 mg tablet 1 tablet PO Q12H Qty: 5 0RF Rx Instructions: last dose 09/27 at 9 pm hydrocodone-acetaminophen 5-325 mg Tablet 1 tablet PO Q4H PRN (Reason: Pain Rated 4-6) Qty: 12 0RF ondansetron 4 mg tablet,disintegrating 4 mg PO Q8H PRN (Reason: nausea and vomiting) Qty: 7 0RF Continued olanzapine 2.5 mg tablet 5 mg PO DAILY escitalopram oxalate 10 mg tablet 10 mg PO DAILY Date of admission: 09/23/24 00:22 Primary Care Provider: UNKNOWN,DOCTOR Admitting Provider: Dani Jefferson Attending physician on admission: Dani Jefferson Condition: Stable Quality VTE Prophylaxis VTE prophylaxis: mechanical ordered Hospitalist MIPS Heart Failure (Exclusion) Patient has history of Heart Transplant or Left Ventricular Assistive Device?: No IF YES, STOP HERE Heart Failure (Qualifier) Patient has current or prior documentation of LVEF less than or equal to 40%, or mod/servere depressed LVSF?: No IF NO, STOP HERE
== END 2024-09-25 16:25 | disposition home or self-care (01) ==
LOC: ANHED 09-23 00:35 → ANH3MEDSUR 09-23 01:53
PROVIDERS: Nurse Practitioner; Student in an Organized Health Care Education/Training Program; Admitting Provider General Practice; Emergency Provider Physician Assistant; Visit Provider Family Medicine
DX: A41.9 Sepsis, unspecified organism (principal); K52.9 Noninfective gastroenteritis and colitis, unspecified; R11.15 Cyclical vomiting syndrome unrelated to migraine; E86.0 Dehydration; F41.9 Anxiety disorder, unspecified; F32.A Depression, unspecified; F12.90 Cannabis use, unspecified, uncomplicated
CPT/HCPCS: 36415; 74177; 80053; 80307; 81001; 81025; 83605; 83690; 83735; 84145; 85025; 85652; 86140; 93005; 96361; 96365; 96366; 96367; 96372; 96374; 96375; 96376; 99285; A9270; G0378; J0696; J0780; J1200; J1630; J1836; J1885; J2060; J2270; J2405; J7030; J7120; Q9967

== ENCOUNTER 2024-09-26 02:35 | Observation (INO) | payer OTHER, SELFPAY ==
[2024-09-26] VITALS (13 sets, daily range): BP systolic 118–154; BP diastolic 76–121; PULSE 64–139; RESP 18–28; TEMP 36.4–37.5; O2SAT 97–100; BMI 19.6
--- OUTSIDE RECORDS SUMMARY | 2024-09-26 02:36 | XMS_ITS | Encounter Summary ---
Author Organization [facility] Address [address] [place] [address] Care Team Providers Care Informatics Physician Liaison Name Role Phone Mellissa Jiménez MD Primary Care Provider [phone] Ronel Thornton DO Primary Care Provider Daphnie Gillespie MD Unavailable Juliana Peralta SENIOR FUNCTIONAL ANALYST Unavailable [phone] Juliana Peralta SENIOR FUNCTIONAL ANALYST Unavailable [phone] Ronel Thornton DO Unavailable [phone] Kenyatta Taylor RN Unavailable [phone] Tigao Lew Unavailable [phone] Reason for Visit * Reason Onset Date Comments Forms/questionnaires 01/23/2021 Encounter Details Date Type Department Care Team (Late st Contact Info) Description 01/23/2021 Telephone [facility] - Surgery [address] [place] [id number] Daphnie Gillespie MD [address] [place] [phone] Forms/questionnaires Social History Tobacco Use Types [...] on file Legal Sex 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 No / Unsure 01/24/2021 11:47 AM HACK DRIVER documented as of this encounter Functional Status [...] encounter Miscellaneous Notes * Telephone Encounter - Mdaelyn Betancur - 01/23/2021 4:35 PM CST Kenyatta stated she faxed a medical form last week to be filled out by the doctor for in patient facility and wanted to know if it was received. DRIVER documented in this encounter Plan of Treatment Upcoming Encounters Date Type Department Care Team (Late st Contact Info) Description 01/20/2025 8:20 AM HACK DRIVER Office Visit [facility] - Family Medicine [address] [place] [address] [phone] Ronel Thornton DO [address] [place] [address] [phone] documented as of this encounter Visit Diagnoses Not on filedocumented in this encounter Additional Health Concerns Infection Onset Date Last Indicated Resolved Time COVID-19 Under Investigation 08/10/2021 08/10/2021 08/10/2021 2:59 AM CDT documented as of this encounter Care Teams Informatics Physician Liaison Relationship Specialty Start Date End Date Mellissa Jiménez MD [address] [place] [address] [place] [phone] PCP - General Family Medicine 04/25/20 03/17/23 Ronel Thornton DO [address] [place] [id number] PCP - General Family Medicine 03/18/23 Daphnie Gillespie MD [address] [place] [phone] PCP - Attributed-[facility] 02/11/23 04/11/23 Ronel Thornton DO [address] [place] [id number] PCP - Attributed-[facility] 04/12/23 Juliana Peralta MSW Outpatient Front Desk Host Care Management 04/24/2304/11 Juliana Peralta MSW Outpatient Front Desk Host Care Management 04/30/2304/12 Kenyatta Taylor RN [address] [address] [employer] Man[employer] Pension Adviser 09/02/23 10/04/23 Tiago Lew Care Coordination Specialist Care Management 09/26/23 11/10/23 documented as of this encounter
--- OUTSIDE RECORDS SUMMARY | 2024-09-26 02:37 | XMS_ITS | Encounter Summary ---
Author Organization [facility] Address [address] [place] [address] Care Team Providers Care Hosting Engineer Name Role Phone Mellissa Jiménez MD Primary Care Provider [phone] Ronel Thornton DO Primary Care Provider [phone] Daphnie Gillespie MD Unavailable Juliana Peralta ELEMENTARY SCHOOL BAND DIRECTOR Unavailable [phone] Juliana Peralta ELEMENTARY SCHOOL BAND DIRECTOR Unavailable [phone] Ronel Thornton DO Unavailable [phone] Kenyatta Taylor RN Unavailable [phone] Tiago Lew Unavailable [phone] Reason for Visit * Reason Onset Date Comments Eating disorder 08/04/2020 Encounter Details Date Type Department Care Team (Late st Contact Info) Description 08/04/2020 Telephone [facility] Street Light Servicer [address] [place] [id number] Flor Martinez, INNER TUBE CUTTER Eating disorder Social History Tobacco Use Types Packs/Day Years Used Date Smoking Tobacco: Never Smokeless Tobacco: Never Alcohol Use Standard Drinks/Week Comments No 0 (1 standard drink = 0.6 oz pur e alcohol) Comments No Sex and Gender Information Value Date Recorded Sex Assigned at Not on file Legal Sex Female 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 Spoke with mother again this a.m, and they have a phone intake assessment with [facility] next SaturdayAugust 08. documented in this encounter Plan of Treatment Upcoming Encounters Date Type Department Care Team (Late st Contact Info) Description 01/20/2025 8:20 AM FOREST FIRE SPECIALIST SUPERVISOR Office Visit [facility] - Family Medicine [address] [place] [address] Ronel Thornton DO [address] [place] [address] documented as of this encounter Visit Diagnoses Not on filedocumented in this encounter Additional Health Concerns Infection Onset Date Last Indicated Resolved Time COVID-19 Under Investigation 08/10/2021 08/10/2021 08/10/2021 2:59 AM CDT documented as of this encounter Care Teams Hosting Engineer Relationship Specialty Start Date End Date Mellissa Jiménez MD [address] [place] [address] [place] [address] PCP - General Family Medicine 04/25/20 03/17/23 Ronel Thornton DO [address] [place] [address] PCP - General Family Medicine 03/18/23 Daphnie Gillespie MD [address] [place] [address] PCP - Attributed-[facility] 02/11/23 04/11/23 Ronel Thornton DO [address] [place] [address] PCP - Attributed-[facility] 04/12/23 Juliana Peralta MSW Outpatient Laminating Machine Tender Care Management 04/24/2304/11 Juliana Peralta MSW Outpatient Laminating Machine Tender Care Management 04/30/2304/12 Kenyatta Taylor RN [address] [address] Change Number OperatorPalliative Nurse 09/02/23 10/04/23 Tiago Lew Care Coordination Specialist Care Management 09/26/23 11/10/23 documented as of this encounter
--- OUTSIDE RECORDS SUMMARY | 2024-09-26 02:37 | XMS_ITS | Encounter Summary ---
Author Organization [facility] Address [address] [place] [address] Care Team Providers Care Chief Optometry Service Name Role Phone Mellissa Jiménez MD Primary Care Provider [phone] Ronel Thornton DO Primary Care Provider [phone] Daphnie Gillespie MD Unavailable Juliana Peralta WASTE WATER OPERATOR Unavailable [phone] Juliana Peralta WASTE WATER OPERATOR Unavailable [phone] Ronel Thornton DO Unavailable Kenyatta Taylor RN Unavailable Tiago Lew Unavailable [phone] Reason for Visit * Reason Onset Date Comments Appointment 10/05/2020 Contraceptive management 10/05/2020 Encounter Details Date Type Department Care Team (Late st Contact Info) Description 10/05/2020 Telephone [facility] [address] [place], [place] [id number] [place] [address] [place] [address] Appointment; Contraceptive management Social History Tobacco Use Types Packs/Day Years Used Date Smoking Tobacco: Never Smokeless Tobacco: Never Alcohol Use Standard Drinks/Week Comments No 0 (1 standard drink = 0.6 oz pur e alcohol) Comments No Sex and Gender Information Value Date Recorded Sex Assigned at Not on file 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 CB# [phone] documented in this encounter Plan of Treatment Upcoming Encounters Date Type Department Care Team (Late st Contact Info) Description 01/20/2025 8:20 AM PILEDRIVER CARPENTER Office Visit [facility] Family Medicine [address] [place] [address] Ronel Thornton DO [address] [place] [address] documented as of this encounter Visit Diagnoses Not on filedocumented in this encounter Additional Health Concerns Infection Onset Date Last Indicated Resolved Time COVID-19 Under Investigation 08/10/2021 08/10/2021 08/10/2021 2:59 AM CDT documented as of this encounter Care Teams Chief Optometry Service Relationship Specialty Start Date End Date Mellissa Jiménez MD [address] [place] [address] [place] [address] PCP - General Family Medicine 04/25/20 03/17/23 Ronel Thornton DO [address] [place] [address] PCP - General Family Medicine 03/18/23 [place] [address] [place] [phone] PCP - Attributed[facility] 02/11/23 04/11/23 Ronel Thornton DO [address] [place] [address] PCP - Attributed[facility] 04/12/23 Juliana Peralta MSW Outpatient Business Services Administrator Care Management 04/24/2304/11 Juliana Peralta MSW Outpatient Business Services Administrator Care Management 04/30/2304/12 Kenyatta Taylor RN [address] [address] Freight And Passenger AgentStationary Steam Engineer 09/02/23 10/04/23 Tiago Lew Care Coordination Specialist Care Management 09/26/23 11/10/23 documented as of this encounter
--- OUTSIDE RECORDS SUMMARY | 2024-09-26 02:37 | XMS_ITS | Clinical Summary ---
Author Organization [facility] Address [address] [place] [address] Phone Care Team Providers Care Business Analyst Name Role Phone Mellissa Jiménez [...] on file Legal Sex Female 10:44 PM HEAD USHER Gender Identity Not on file Sexual Orientation [...] 52.2 kg (115 lb) 04/20/2023 2:30 AM HEAD USHER Height 152.4 cm (5') 04/20/2023 2:30 AM HEAD USHER Body Mass Index 22.46 04/20/2023 2:30 AM HEAD USHER Plan of Treatment Health Maintenance Due Date [...] 02/22/2003, Additional history exists [place] [address] [facility] [id number] OUT OF NETWORK Advance Directives For more information, please contact: [phone] * Full Code (Latest Code Status on File) Date Activated Date Inactivated Comments 04/20/2023 2:32 AM 04/21/2023 4:11 PM Care Teams Business Analyst Relationship Specialty Start Date End Date Mellissa Jiménez MD [address] [place] [id number] PCP - General Family Practice 04/20/23
--- OUTSIDE RECORDS SUMMARY | 2024-09-26 02:37 | XMS_ITS | Clinical Summary ---
Author Organization [facility] Address [address] [address] Care Team Providers Care Industrial Rehabilitation Consultant Name Role Phone Ronel Thornton DO Primary Care Provider [phone] Ronel Thornton DO Unavailable [phone] Source Comments [facility],non-owned Affiliates and Associated Physician Practices is amultiple site organization consisting of ambulatory clinics and hospital sitesin [place], [place], [place] and [place]. This disclosure is being madepursuant to the Care Everywhere program and may not contain all information available regarding this patient. Last updated 17.[facility] Allergies No known active allergies Medications * [...] 01/18/2020 Assessment & Plan (01/08/2021 3:06 PM NEUROLOGIST): Assessment: Major depressive disorder, generalized anxiety disorder and substance abuse disorder. Plan: - klonopin and neurontin are all habit forming, concerns they are addictive, plan to discuss extermination supervisor goal of weaning as outpatient - must stop all alcohol and MJ - Increased Prozac to 40 - Increased zyprexa to 15 - Melatonin 6mg QHS for sleep - avoid narcotics - taper off zyprexa as outpatient per psychiatry recs Assessment & Plan (01/07/2021 4:50 PM NEUROLOGIST): Assessment: Major depressive disorder, generalized anxiety disorder [...] recs Assessment & Plan (01/06/2021 5:55 PM NEUROLOGIST): Assessment: Major depressive disorder, generalized anxiety disorder [...] slowly. Assessment & Plan (04/07/2020 6:45 PM NEUROLOGIST): Assessment: Hx of major depressive disorder and generalized anxiety disorder. Pt has been seen by psychiatry and psychology, now improved since starting/optimizing zyprexa QHS, clonazepam TID, and prozac QD. Plan: - Prozac 30 mg QD (dose of 30 mg started on 03/09/20, Prozac initially began 02/07) - Zyprexa 5 mg QHS - Klonopin 0.5mg TID Assessment & Plan (04/06/2020 3:54 PM NEUROLOGIST): Assessment: Hx of major depressive disorder and [...] TID Assessment & Plan (04/05/2020 10:49 AM NEUROLOGIST): Assessment: Hx of major depressive disorder and [...] TID Assessment & Plan (04/04/2020 10:23 AM NEUROLOGIST): Assessment: Hx of major depressive disorder and [...] TID Assessment & Plan (04/03/2020 6:30 PM NEUROLOGIST): Assessment: Hx of major depressive disorder and [...] TID Assessment & Plan (04/01/2020 11:15 AM NEUROLOGIST): Assessment: Hx of major depressive disorder and [...] dose) Assessment & Plan (03/31/2020 10:07 AM NEUROLOGIST): Assessment: Hx of major depressive disorder and [...] dose) Assessment & Plan (03/30/2020 2:24 PM NEUROLOGIST): Assessment: Hx of major depressive disorder and [...] dose) Assessment & Plan (03/29/2020 6:50 AM NEUROLOGIST): Assessment: Hx of major depressive disorder and [...] dose) Assessment & Plan (03/27/2020 10:30 AM NEUROLOGIST): Assessment: Hx of major depressive disorder and generalized anxiety disorder. Pt seen by psychiatry on admission and was started elavil, but continued to have anxiety. Elavil was discontinued due to persistent tachycardia and hypotension. [facility], she was started on zyprexa QHS, [...] dose) Assessment & Plan (03/26/2020 11:15 AM NEUROLOGIST): Assessment: Hx of major depressive disorder and [...] dose) Assessment & Plan (03/25/2020 8:58 AM NEUROLOGIST): Assessment: Hx of major depressive disorder and [...] dose) Assessment & Plan (03/24/2020 6:44 AM NEUROLOGIST): Assessment: Hx of major depressive disorder and [...] dose) Assessment & Plan (03/23/2020 12:19 PM NEUROLOGIST): Assessment: Hx of major depressive disorder and [...] dose) Assessment & Plan (03/22/2020 10:47 AM NEUROLOGIST): Assessment: Hx of major depressive disorder and [...] recommendations) Assessment & Plan (03/21/2020 3:11 PM NEUROLOGIST): Assessment: Hx of major depressive disorder and [...] mg. Assessment & Plan (03/20/2020 10:31 AM NEUROLOGIST): Assessment: Hx of major depressive disorder and generalized anxiety disorder. Pt seen by psychiatry on admission and was started elavil, but continued to have anxiety. Elavil was discontinued due to persistent tachycardia and hypotension. [facility], she was started on [...] 03/21. Assessment & Plan (03/19/2020 10:38 AM NEUROLOGIST): Assessment: Hx of major depressive disorder and [...] withdrawal Assessment & Plan (03/18/2020 12:58 PM NEUROLOGIST): Assessment: Hx of major depressive disorder and [...] anxiety Assessment & Plan (03/17/2020 10:33 AM NEUROLOGIST): Assessment: Hx of major depressive disorder and [...] appreciated Assessment & Plan (03/16/2020 2:24 PM NEUROLOGIST): Assessment: Hx of major depressive disorder and [...] recommendations Assessment & Plan (03/15/2020 11:11 AM NEUROLOGIST): Assessment: Hx of major depressive disorder and [...] anxiety Assessment & Plan (03/14/2020 6:28 AM NEUROLOGIST): Assessment: Hx of major depressive disorder and [...] anxiety Assessment & Plan (03/13/2020 6:28 AM NEUROLOGIST): Assessment: Hx of major depressive disorder and [...] anxiety Assessment & Plan (03/12/2020 11:35 AM NEUROLOGIST): Assessment: Hx of major depressive disorder and [...] anxiety Assessment & Plan (03/11/2020 12:43 PM NEUROLOGIST): Assessment: Hx of major depressive disorder and [...] anxiety Assessment & Plan (03/10/2020 6:11 AM NEUROLOGIST): Assessment: Hx of major depressive disorder and [...] anxiety Assessment & Plan (03/09/2020 6:24 AM NEUROLOGIST): Assessment: Hx of major depressive disorder and [...] anxiety Assessment & Plan (03/08/2020 10:51 AM NEUROLOGIST): Assessment: Hx of major depressive disorder and [...] anxiety Assessment & Plan (03/07/2020 9:15 AM NEUROLOGIST): Assessment: Hx of major depressive disorder and [...] -Develop daily schedule with assistance of child care coordinator-Alma Assessment & Plan (03/06/2020 10:09 AM NEUROLOGIST): Assessment: Hx of major depressive disorder and [...] anxiety Assessment & Plan (03/05/2020 9:56 AM NEUROLOGIST): Assessment: Hx of major depressive disorder and [...] anxiety Assessment & Plan (03/04/2020 12:58 PM NEUROLOGIST): Assessment: Hx of major depressive disorder and [...] anxiety Assessment & Plan (03/03/2020 3:16 PM NEUROLOGIST): Assessment: Hx of major depressive disorder and [...] anxiety Assessment & Plan (03/01/2020 12:04 PM NEUROLOGIST): Assessment: Hx of major depressive disorder and [...] anxiety Assessment & Plan (02/29/2020 12:53 PM NEUROLOGIST): Assessment: Hx of major depressive disorder and [...] anxiety Assessment & Plan (02/28/2020 9:22 AM NEUROLOGIST): Assessment: Hx of major depressive disorder and [...] anxiety Assessment & Plan (02/27/2020 10:27 AM NEUROLOGIST): Assessment: Hx of major depressive disorder and [...] negative Assessment & Plan (02/26/2020 11:12 AM NEUROLOGIST): Assessment: Hx of major depressive disorder and [...] pending Assessment & Plan (02/25/2020 9:33 AM NEUROLOGIST): Assessment: Hx of major depressive disorder and [...] pending Assessment & Plan (02/24/2020 6:51 AM NEUROLOGIST): Assessment: Hx of major depressive disorder and [...] pending Assessment & Plan (02/23/2020 10:19 AM NEUROLOGIST): Assessment: Hx of major depressive disorder and [...] pending Assessment & Plan (02/22/2020 11:07 AM NEUROLOGIST): Assessment: Hx of major depressive disorder and [...] QHS Assessment & Plan (02/21/2020 10:54 AM NEUROLOGIST): Assessment: History of major depressive disorder and [...] tablet Assessment & Plan (02/20/2020 11:33 AM NEUROLOGIST): Assessment: History of major depressive disorder and [...] tablet Assessment & Plan (02/19/2020 3:05 PM NEUROLOGIST): Assessment: History of major depressive disorder and [...] tablet Assessment & Plan (02/18/2020 10:13 AM NEUROLOGIST): Assessment: History of major depressive disorder and [...] tablet Assessment & Plan (02/17/2020 12:26 PM NEUROLOGIST): Assessment: History of major depressive disorder and [...] tablet Assessment & Plan (02/16/2020 1:14 PM NEUROLOGIST): Assessment: History of major depressive disorder and [...] tablet Assessment & Plan (02/15/2020 12:31 PM NEUROLOGIST): Assessment: History of major depressive disorder and [...] tablet Assessment & Plan (02/14/2020 2:24 PM NEUROLOGIST): Assessment: History of major depressive disorder and [...] tablet Assessment & Plan (02/13/2020 12:00 PM NEUROLOGIST): Assessment: History of major depressive disorder and [...] tablet Assessment & Plan (02/12/2020 11:20 AM NEUROLOGIST): Assessment: History of major depressive disorder and [...] tablet Assessment & Plan (02/11/2020 11:54 AM NEUROLOGIST): Assessment: History of major depressive disorder and [...] tablet Assessment & Plan (02/10/2020 12:09 PM NEUROLOGIST): Assessment: History of major depressive disorder and [...] tablet Assessment & Plan (02/09/2020 11:50 AM NEUROLOGIST): Assessment: History of major depressive disorder and [...] [place] Assessment & Plan (02/08/2020 12:54 PM NEUROLOGIST): Assessment: History of major depressive disorder and [...] [place] Assessment & Plan (02/07/2020 11:47 AM NEUROLOGIST): Assessment: History of major depressive disorder and [...] [place] Assessment & Plan (02/06/2020 8:12 AM NEUROLOGIST): Assessment: History of major depressive disorder and [...] [place] Assessment & Plan (02/05/2020 9:12 AM NEUROLOGIST): Assessment: History of major depressive disorder and [...] [place] Assessment & Plan (02/04/2020 12:43 PM NEUROLOGIST): Assessment: History of major depressive disorder and [...] [place] Assessment & Plan (02/03/2020 2:28 PM NEUROLOGIST): Assessment: History of major depressive disorder and [...] [place] Assessment & Plan (02/02/2020 4:02 PM NEUROLOGIST): Assessment: History of major depressive disorder and [...] [place] Assessment & Plan (02/01/2020 12:12 PM NEUROLOGIST): Assessment: History of major depressive disorder and [...] [place] Assessment & Plan (01/31/2020 1:04 PM NEUROLOGIST): Assessment: History of major depressive disorder and [...] [place] Assessment & Plan (01/30/2020 10:30 AM NEUROLOGIST): Assessment: History of major depressive disorder and [...] [place] Assessment & Plan (01/29/2020 9:40 PM NEUROLOGIST): Assessment: History of major depressive disorder and [...] [place] Assessment & Plan (01/28/2020 11:59 AM NEUROLOGIST): Assessment: History of major depressive disorder and [...] lunch Assessment & Plan (01/27/2020 3:57 PM NEUROLOGIST): Assessment: History of major depressive disorder and [...] lunch Assessment & Plan (01/26/2020 6:01 PM NEUROLOGIST): Assessment: History of major depressive disorder and [...] [place] Assessment & Plan (01/25/2020 2:56 PM NEUROLOGIST): Assessment: History of major depressive disorder and [...] PO. Assessment & Plan (01/24/2020 8:11 AM NEUROLOGIST): Assessment: History of major depressive disorder and [...] (02/22/20) Assessment & Plan (01/23/2020 7:09 AM NEUROLOGIST): Assessment: History of major depressive disorder and [...] (02/22/20) Assessment & Plan (01/22/2020 7:52 AM NEUROLOGIST): Assessment: History of major depressive disorder and [...] (02/22/20) Assessment & Plan (01/21/2020 7:40 AM NEUROLOGIST): Assessment: History of major depressive disorder and [...] (02/22/20) Assessment & Plan (01/20/2020 7:36 AM NEUROLOGIST): Assessment: History of major depressive disorder and [...] (02/22/20) Assessment & Plan (01/19/2020 7:22 AM NEUROLOGIST): Assessment: History of major depressive disorder and [...] (02/22/20) Assessment & Plan (01/18/2020 4:35 PM NEUROLOGIST): Assessment: History of major depressive disorder and [...] range. Assessment & Plan (04/08/2020 1:31 PM NEUROLOGIST): Assessment: Malnutrition is secondary to ARFID, SMA [...] PT Assessment & Plan (04/07/2020 2:52 PM NEUROLOGIST): Assessment: Malnutrition is secondary to ARFID, SMA [...] PT Assessment & Plan (04/07/2020 6:44 PM NEUROLOGIST): Assessment: Marlee is a 19 year old [...] follow up with adolescent medicine on 04/18, [facility] on 05/02, and and scheduling Psych intake visit SOCIAL: - General medicine team spoke with and updated mother on 04/06 LABS: daily urine spec gravity, BMP/Mg/Phos Q / Assessment & Plan (04/06/2020 6:45 PM NEUROLOGIST): Assessment: Marlee is a 19 year old [...] / Assessment & Plan (04/05/2020 3:22 PM NEUROLOGIST): Assessment: Malnutrition is secondary to ARFID, SMA [...] PT Assessment & Plan (04/05/2020 10:49 AM NEUROLOGIST): Assessment: Marlee is a 19 year old [...] T/ Assessment & Plan (04/04/2020 3:59 PM NEUROLOGIST): Assessment: Malnutrition is secondary to ARFID, SMA [...] daily Assessment & Plan (04/04/2020 10:21 AM NEUROLOGIST): Assessment: Marlee is a 19 year old [...] / Assessment & Plan (04/03/2020 12:59 PM NEUROLOGIST): Assessment: Marlee is a 19 year old [...] daily Assessment & Plan (04/02/2020 4:19 PM NEUROLOGIST): Assessment: Marlee is a 19 year old [...] daily Assessment & Plan (04/01/2020 11:55 AM NEUROLOGIST): Assessment: Malnutrition is secondary to ARFID and [...] daily Assessment & Plan (04/01/2020 11:15 AM NEUROLOGIST): Assessment: Marlee is a 19 year old [...] daily Assessment & Plan (03/31/2020 12:05 PM NEUROLOGIST): Assessment: Malnutrition is secondary to ARFID and [...] daily Assessment & Plan (03/31/2020 10:06 AM NEUROLOGIST): Assessment: Marlee is a 19 year old [...] daily Assessment & Plan (03/30/2020 2:24 PM NEUROLOGIST): Assessment: Marlee is a 19 year old [...] daily Assessment & Plan (03/29/2020 10:40 AM NEUROLOGIST): Assessment: Marlee is a 19 year old [...] allowed in room. May have water from [employer]. Oral fluids limited to 250 mL [...] daily Assessment & Plan (03/28/2020 12:29 PM NEUROLOGIST): Assessment: Marlee is a 19 year old [...] daily Assessment & Plan (03/27/2020 10:34 AM NEUROLOGIST): Assessment: Marlee is a 19 year old [...] night 03/27: Increase to 50 mL/hr tonight. [facility] is aware of increase but [...] daily Assessment & Plan (03/26/2020 11:20 AM NEUROLOGIST): Assessment: Marlee is a 19 year old [...] daily Assessment & Plan (03/25/2020 12:30 PM NEUROLOGIST): Assessment: Marlee is a 19 year old [...] daily Assessment & Plan (03/24/2020 5:02 PM NEUROLOGIST): Assessment: Malnutrition is secondary to ARFID and [...] anxiety Assessment & Plan (03/24/2020 11:19 AM NEUROLOGIST): Assessment: Marlee is a 19 year old [...] allowed in room. May have water from [employer]. - May take shower while sitting [...] daily Assessment & Plan (03/23/2020 12:20 PM NEUROLOGIST): Assessment: Marlee is a 19 year old [...] daily Assessment & Plan (03/22/2020 12:20 PM NEUROLOGIST): Assessment: Marlee is a 19 year old [...] daily Assessment & Plan (03/21/2020 3:10 PM NEUROLOGIST): Assessment: Marlee is a 19 year old [...] 03/15/2020. Assessment & Plan (03/20/2020 10:32 AM NEUROLOGIST): Assessment: Marlee is a 19 year old [...] 03/15/2020. Assessment & Plan (03/19/2020 10:37 AM NEUROLOGIST): Assessment: Marlee is a 19 year old [...] 03/15/2020. Assessment & Plan (03/18/2020 1:00 PM NEUROLOGIST): Assessment: Marlee is a 19 year old [...] 03/15/2020. Assessment & Plan (03/17/2020 10:36 AM NEUROLOGIST): Assessment: Marlee is a 19 year old [...] 03/15/2020. Assessment & Plan (03/16/2020 2:10 PM NEUROLOGIST): Assessment: Marlee is a 19 year old [...] 03/15/2020. Assessment & Plan (03/15/2020 11:10 AM NEUROLOGIST): Assessment: Marlee is a 19 year old [...] 03/15/2020 Assessment & Plan (03/14/2020 9:53 AM NEUROLOGIST): Assessment: Marlee is a 19 year old [...] 03/15/2020 Assessment & Plan (03/13/2020 9:39 AM NEUROLOGIST): Assessment: Marlee is a 19 year old [...] week Assessment & Plan (03/12/2020 11:35 AM NEUROLOGIST): Assessment: Marlee is a 19 year old [...] week Assessment & Plan (03/11/2020 12:43 PM NEUROLOGIST): Assessment: Marlee is a 19 year old [...] week Assessment & Plan (03/10/2020 9:12 AM NEUROLOGIST): Assessment: Marlee is a 19 year old [...] in Assessment & Plan (03/09/2020 10:22 AM NEUROLOGIST): Assessment: Marlee is a 19 year old [...] in Assessment & Plan (03/08/2020 10:52 AM NEUROLOGIST): Assessment: Marlee is a 19 year old [...] in Assessment & Plan (03/07/2020 9:18 AM NEUROLOGIST): Assessment: Marlee is a 19 year old [...] in Assessment & Plan (03/06/2020 10:09 AM NEUROLOGIST): Assessment: Marlee is a 19 year old [...] in Assessment & Plan (03/05/2020 9:56 AM NEUROLOGIST): Assessment: Marlee is a 19 year old [...] in Assessment & Plan (03/04/2020 12:58 PM NEUROLOGIST): Assessment: Marlee is a 19 year old [...] A/P Assessment & Plan (03/03/2020 3:15 PM NEUROLOGIST): Assessment: Marlee is a 19 year old [...] A/P Assessment & Plan (03/02/2020 12:06 PM NEUROLOGIST): Assessment: Marlee is a 19 year old [...] A/P Assessment & Plan (03/01/2020 12:05 PM NEUROLOGIST): Assessment: Marlee is a 19 year old [...] A/P Assessment & Plan (02/29/2020 12:52 PM NEUROLOGIST): Assessment: Marlee is a 19 year old [...] A/P Assessment & Plan (02/28/2020 9:12 AM NEUROLOGIST): Assessment: Marlee is a 19 year old [...] A/P Assessment & Plan (02/27/2020 10:03 AM NEUROLOGIST): Assessment: Marlee is a 19 year old [...] A/P Assessment & Plan (02/26/2020 11:12 AM NEUROLOGIST): Assessment: Marlee is a 19 year old [...] A/P Assessment & Plan (02/25/2020 9:32 AM NEUROLOGIST): Assessment: Marlee is a 19 year old [...] A/P Assessment & Plan (02/24/2020 10:42 AM NEUROLOGIST): Assessment: Marlee is a 19 year old [...] A/P Assessment & Plan (02/23/2020 10:22 AM NEUROLOGIST): Assessment: Marlee is a 19 year old [...] A/P Assessment & Plan (02/22/2020 11:25 AM NEUROLOGIST): Assessment: Marlee is a 19 year old [...] A/P Assessment & Plan (02/21/2020 10:54 AM NEUROLOGIST): Assessment: Marlee is a 19 year old [...] A/P Assessment & Plan (02/20/2020 11:31 AM NEUROLOGIST): Assessment: Marlee is a 19 year old [...] A/P Assessment & Plan (02/19/2020 3:04 PM NEUROLOGIST): Assessment: Marlee is a 19 year old [...] TPN. Assessment & Plan (02/18/2020 10:14 AM NEUROLOGIST): Assessment: Marlee is a 19 year old [...] Sat) Assessment & Plan (02/17/2020 12:30 PM NEUROLOGIST): Assessment: Marlee is a 19 year old [...] pending Assessment & Plan (02/16/2020 2:29 PM NEUROLOGIST): Assessment: Marlee is a 19 year old [...] pending Assessment & Plan (02/15/2020 12:33 PM NEUROLOGIST): Assessment: Marlee is a 19 year old [...] pending Assessment & Plan (02/14/2020 2:23 PM NEUROLOGIST): Assessment: Marlee is a 19 year old [...] pending Assessment & Plan (02/13/2020 11:59 AM NEUROLOGIST): Assessment: Marlee is a 19 year old [...] pending Assessment & Plan (02/12/2020 11:49 AM NEUROLOGIST): Assessment: Marlee is a 19 year old [...] recs Assessment & Plan (02/11/2020 11:56 AM NEUROLOGIST): Assessment: Marlee is a 19 year old [...] recs Assessment & Plan (02/10/2020 12:11 PM NEUROLOGIST): Assessment: Marlee is a 19 year old [...] SG) Assessment & Plan (02/09/2020 11:49 AM NEUROLOGIST): Assessment: Marlee is a 19 year old [...] SG) Assessment & Plan (02/08/2020 12:54 PM NEUROLOGIST): Assessment: Marlee is a 19 year old [...] recs. Assessment & Plan (02/07/2020 12:06 PM NEUROLOGIST): Assessment: Marlee is a 19 year old [...] SG) Assessment & Plan (02/06/2020 8:12 AM NEUROLOGIST): Assessment: Marlee is a 19 year old [...] SG) Assessment & Plan (02/05/2020 9:12 AM NEUROLOGIST): Assessment: Marlee is a 19 year old [...] TG) Assessment & Plan (02/04/2020 12:52 PM NEUROLOGIST): Assessment: Marlee is a 19 year old [...] TG) Assessment & Plan (02/03/2020 2:38 PM NEUROLOGIST): Assessment: Marlee is a 19 year old [...] TG) Assessment & Plan (02/02/2020 4:02 PM NEUROLOGIST): Assessment: Marlee is a 19 year old [...] QOD Assessment & Plan (02/01/2020 12:08 PM NEUROLOGIST): Assessment: Marlee is a 19 year old [...] RBCs. Assessment & Plan (01/31/2020 1:05 PM NEUROLOGIST): Assessment: Marlee is a 19 year old [...] hematuria Assessment & Plan (01/30/2020 10:30 AM NEUROLOGIST): Assessment: Marlee is a 19 year old [...] 10.2 Assessment & Plan (01/29/2020 9:39 PM NEUROLOGIST): Assessment: Marlee is a 19 year old [...] syndrome Assessment & Plan (01/28/2020 11:59 AM NEUROLOGIST): Assessment: Marlee is a 19 year old [...] QOD Assessment & Plan (01/27/2020 3:59 PM NEUROLOGIST): Assessment: Marlee is a 19 year old [...] QOD Assessment & Plan (01/26/2020 5:14 PM NEUROLOGIST): Assessment: Marlee is a 19 year old [...] QOD Assessment & Plan (01/25/2020 2:58 PM NEUROLOGIST): Assessment: Marlee is a 19 year old [...] QOD Assessment & Plan (01/24/2020 11:54 AM NEUROLOGIST): Assessment: Marlee is a 19 year old [...] orthostatics Assessment & Plan (01/23/2020 7:09 AM NEUROLOGIST): Assessment: Marlee is a 19 year old [...] orthostatics Assessment & Plan (01/22/2020 4:25 PM NEUROLOGIST): Assessment: Marlee is a 19 year old [...] orthostatics Assessment & Plan (01/21/2020 8:15 AM NEUROLOGIST): Assessment: Marlee Chavez is a 19 year [...] orthostatics Assessment & Plan (01/20/2020 7:36 AM NEUROLOGIST): Assessment: Marlee Chavez is a 19 year [...] orthostatics Assessment & Plan (01/19/2020 7:20 AM NEUROLOGIST): Assessment: Marlee Chavez is a 19 year [...] orthostatics Assessment & Plan (01/18/2020 4:30 PM NEUROLOGIST): Assessment: Marlee Chavez is a 19 year [...] consult Assessment & Plan (03/27/2020 10:35 AM NEUROLOGIST): Assessment: Marlee is admitted on ED Protocol for severe malnutrition. Following feeding plan per Adolescent Medicine and Nutrition. Plan: - see plan under ARFID problem Assessment & Plan (03/26/2020 11:20 AM NEUROLOGIST): Assessment: Marlee is admitted on ED Protocol for severe malnutrition. Following feeding plan per Adolescent Medicine and Nutrition. Plan: - see plan under ARFID problem Assessment & Plan (03/24/2020 11:19 AM NEUROLOGIST): Assessment: Marlee is admitted on ED Protocol for severe malnutrition. Following feeding plan per Adolescent Medicine and Nutrition. Plan: - see plan under ARFID problem Assessment & Plan (03/23/2020 9:00 AM NEUROLOGIST): Assessment: Marlee is admitted on ED Protocol for severe malnutrition. Following feeding plan per Adolescent Medicine and Nutrition. Plan: - see plan under ARFID problem Assessment & Plan (03/22/2020 12:21 PM NEUROLOGIST): Assessment: Marlee is admitted on ED Protocol for severe malnutrition. Following feeding plan per Adolescent Medicine and Nutrition. Plan: - see plan under ARFID problem Assessment & Plan (03/17/2020 4:26 PM NEUROLOGIST): Assessment: Malnutrition is secondary to ARFID and [...] anxiety Assessment & Plan (03/15/2020 11:10 AM NEUROLOGIST): Assessment: Marlee is admitted on ED Protocol for severe malnutrition. Following feeding plan per Adolescent Medicine and Nutrition. Plan: - see plan under ARFID problem Assessment & Plan (03/10/2020 11:17 AM NEUROLOGIST): Assessment: Malnutrition is secondary to ARFID and [...] needed Assessment & Plan (03/06/2020 10:09 AM NEUROLOGIST): Assessment: Marlee is admitted on ED Protocol for severe malnutrition. Following feeding plan per Adolescent Medicine and Nutrition. Plan: - see plan under ARFID problem Assessment & Plan (03/04/2020 1:41 PM NEUROLOGIST): Assessment: Marlee is admitted on ED Protocol for severe malnutrition. Following feeding plan per Adolescent Medicine and Nutrition. Plan: - see plan under ARFID problem Assessment & Plan (03/04/2020 11:50 AM NEUROLOGIST): Assessment: Marlee is admitted on ED Protocol for severe malnutrition. Following feeding plan per Adolescent Medicine and Nutrition. Plan: - see plan under ARFID problem Assessment & Plan (03/03/2020 3:53 PM NEUROLOGIST): Assessment: Malnutrition is secondary to ARFID and [...] dad. Assessment & Plan (02/27/2020 9:57 AM NEUROLOGIST): Assessment: Marlee is admitted on ED Protocol for severe malnutrition. Following feeding plan per Adolescent Medicine and Nutrition. Plan: - see plan under ARFID problem Assessment & Plan (02/26/2020 9:59 AM NEUROLOGIST): Assessment: Malnutrition is secondary to ARFID and [...] plan. Assessment & Plan (02/25/2020 5:48 PM NEUROLOGIST): Assessment: Malnutrition is secondary to ARFID and [...] plan. Assessment & Plan (02/18/2020 4:54 PM NEUROLOGIST): Assessment: Malnutrition is secondary to ARFID and [...] daily Assessment & Plan (02/11/2020 11:47 AM NEUROLOGIST): Assessment: Malnutrition is secondary to ARFID and [...] BID Assessment & Plan (02/09/2020 11:50 AM NEUROLOGIST): Assessment: Marlee is admitted on ED Protocol for severe malnutrition. Following feeding plan per [facility] Nutrition. Plan: - see plan under ARFID problem Assessment & Plan (02/07/2020 11:47 AM NEUROLOGIST): Assessment: Marlee is admitted on ED Protocol for severe malnutrition. Following feeding plan per Adolescent Medicine and Nutrition. Plan: - see plan under ARFID problem Assessment & Plan (02/06/2020 8:12 AM NEUROLOGIST): Assessment: Marlee is admitted on ED Protocol for severe malnutrition. Following feeding plan per Adolescent Medicine and Nutrition. Plan: - see plan under ARFID problem Assessment & Plan (02/05/2020 9:01 AM NEUROLOGIST): Assessment: Marlee is admitted on ED Protocol for severe malnutrition. Following feeding plan per Adolescent Medicine and Nutrition. Plan: - see plan under ARFID problem Assessment & Plan (02/04/2020 12:34 PM NEUROLOGIST): Assessment: Marlee is admitted on ED Protocol for severe malnutrition. Following feeding plan per Adolescent Medicine and Nutrition. Plan: - see plan under ARFID problem Assessment & Plan (02/03/2020 2:28 PM NEUROLOGIST): Assessment: Marlee is admitted on ED Protocol for severe malnutrition. Following feeding plan per Adolescent Medicine and Nutrition. Plan: - see plan under ARFID problem Assessment & Plan (02/02/2020 3:57 PM NEUROLOGIST): Assessment: Marlee is admitted on ED Protocol for severe malnutrition. Following feeding plan per Adolescent Medicine and Nutrition. Plan: - see plan under ARFID problem Assessment & Plan (02/01/2020 12:10 PM NEUROLOGIST): Assessment: Marlee is admitted on ED Protocol for severe malnutrition. Following feeding plan per Adolescent Medicine and Nutrition. Plan: - see plan under ARFID problem Assessment & Plan (01/31/2020 1:04 PM NEUROLOGIST): Assessment: Marlee is admitted on ED Protocol for severe malnutrition. Following feeding plan per Adolescent Medicine and Nutrition. Plan: - see plan under ARFID problem Assessment & Plan (01/30/2020 10:28 AM NEUROLOGIST): Assessment: Marlee is admitted on ED Protocol for severe malnutrition. Following feeding plan per Adolescent Medicine and Nutrition. Plan: - see plan under ARFID problem Assessment & Plan (01/28/2020 4:29 PM NEUROLOGIST): Assessment: Malnutrition is secondary to ARFID and [...] BID Assessment & Plan (01/24/2020 11:54 AM NEUROLOGIST): Assessment: Marlee is admitted on ED Protocol for severe malnutrition. Following feeding plan per Adolescent Medicine and Nutrition. Plan: - see plan under ARFID problem Assessment & Plan (01/23/2020 7:09 AM NEUROLOGIST): Assessment: Marlee is admitted on ED Protocol for severe malnutrition. Following feeding plan per Adolescent Medicine and Nutrition. Plan: - see plan under ARFID problem Assessment & Plan (01/22/2020 9:48 AM NEUROLOGIST): Assessment: Malnutrition is secondary to ARFID and [...] () Assessment & Plan (01/22/2020 7:52 AM NEUROLOGIST): Assessment: Marlee is admitted on ED Protocol for severe malnutrition. Following feeding plan per Adolescent Medicine and Nutrition. Plan: - see plan under ARFID problem Assessment & Plan (01/21/2020 10:33 AM NEUROLOGIST): Assessment: Malnutrition is secondary to ARFID and [...] () Assessment & Plan (01/21/2020 7:40 AM NEUROLOGIST): Assessment: Marlee is admitted on ED Protocol for severe malnutrition. Following feeding plan per Adolescent Medicine and Nutrition. Plan: - see plan under ARFID problem Assessment & Plan (01/20/2020 7:36 AM NEUROLOGIST): Assessment: Marlee is admitted on ED Protocol for severe malnutrition. Following feeding plan per Adolescent Medicine and Nutrition. Plan: - see plan under ARFID problem Assessment & Plan (01/19/2020 7:22 AM NEUROLOGIST): Assessment: Marlee is admitted on ED Protocol for severe malnutrition. Following feeding plan per Adolescent Medicine and Nutrition. Plan: - see plan under ARFID problem Assessment & Plan (01/18/2020 4:25 PM NEUROLOGIST): Assessment: Marlee Chavez is a 19 year [...] orthostatics Assessment & Plan (01/17/2020 12:38 PM NEUROLOGIST): Assessment: Marlee Chavez is a 19 year [...] anxiety Assessment & Plan (01/16/2020 1:41 PM NEUROLOGIST): Assessment: Marlee Chavez is a 19 year [...] anxiety Assessment & Plan (01/15/2020 8:49 PM NEUROLOGIST): Assessment: Malnutrition is secondary to ARFID and [...] counseling. Assessment & Plan (01/15/2020 11:57 AM NEUROLOGIST): Assessment: Marlee Chavez is a 19 year [...] anxiety Assessment & Plan (01/14/2020 1:00 PM NEUROLOGIST): Assessment: Malnutrition is secondary to ARFID and [...] () Assessment & Plan (01/14/2020 9:54 AM NEUROLOGIST): Assessment: Marlee Chavez is a 19 year [...] anxiety Assessment & Plan (01/13/2020 2:34 PM NEUROLOGIST): Assessment: Marlee Chavez is a 19 year [...] anxiety Assessment & Plan (01/13/2020 12:01 PM NEUROLOGIST): Moderate protein-calorie malnutrition Assessment: Marlee Chavez is [...] thereafter Assessment & Plan (01/12/2020 3:40 PM NEUROLOGIST): Moderate protein-calorie malnutrition Assessment: Marlee Chavez is [...] chart) Assessment & Plan (01/12/2020 1:25 PM NEUROLOGIST): Assessment: Marlee Chavez is a 19 year [...] anxiety Assessment & Plan (01/11/2020 11:43 AM NEUROLOGIST): Assessment: Marlee Chavez is a 19 year [...] cysts Assessment & Plan (01/10/2020 9:32 AM NEUROLOGIST): Assessment: Marlee Chavez is a 19 year [...] cysts Assessment & Plan (01/09/2020 11:08 AM NEUROLOGIST): Assessment: Marlee Chavez is a 19 year [...] cysts Assessment & Plan (01/08/2020 1:32 PM NEUROLOGIST): Assessment: Marlee Chavez is a 19 year [...] cysts Assessment & Plan (01/07/2020 2:52 PM NEUROLOGIST): Assessment: Marlee Chavez is a 19 year [...] cysts Assessment & Plan (01/06/2020 11:27 AM NEUROLOGIST): Assessment: Marlee Chavez is a 19 year [...] cysts Assessment & Plan (01/05/2020 3:49 PM NEUROLOGIST): Assessment: Marlee Chavez is a 19 year [...] cysts Assessment & Plan (01/04/2020 1:53 PM NEUROLOGIST): Assessment: Marlee Chavez is a 19 year [...] cysts Assessment & Plan (01/03/2020 12:34 AM NEUROLOGIST): Assessment: Marlee Chavez is a 19 year [...] 03/18/2023 Assessment & Plan (01/24/2022 5:04 PM NEUROLOGIST): Assessment: Marlee Chavez is a 20 year [...] gabapentin Assessment & Plan (01/23/2022 6:56 PM NEUROLOGIST): Assessment: Marlee Chavez is a 20 year [...] & Plan (08/13/2021 4:00 PM CDT): Assessment: Malree is an 20 [...] pain Assessment & Plan (01/08/2021 3:05 PM NEUROLOGIST): Assessment: Patient is an 20 year old [...] I&Os Assessment & Plan (01/07/2021 4:52 PM NEUROLOGIST): Assessment: Patient is an 20 year old [...] it Assessment & Plan (01/06/2021 6:00 PM NEUROLOGIST): Assessment: Patient is an 20 year old [...] I&Os Assessment & Plan (01/05/2021 1:27 PM NEUROLOGIST): Assessment: Patient is an 20 year old [...] I&Os Assessment & Plan (01/04/2021 9:17 PM NEUROLOGIST): Assessment: Patient is an 20 year old [...] I&Os Assessment & Plan (01/03/2021 8:43 PM NEUROLOGIST): Assessment: Patient is an 20 year old [...] wearing condom. She has upcoming appointment with call center trainer next month at which time, she will be getting a IUD. Plan: -urine test today -GC, chlamydia, trichomonas testing Assessment & Plan (05/24/2020 2:43 PM CDT): Will get urine Hcg and STI testing. Mom is aware and Marlee is ok with us communicating results to her mother. Purging 03/24/2020 05/24/2020 Assessment & Plan (04/05/2020 3:23 PM NEUROLOGIST): Assessment: Has been drinking excessive amounts of water and putting her fingers in her mouth to induce vomiting. No recorded emesis since 03/25. Plan: Will limit access to water to 250ml at a time. May only bathe once per day after she has taken her meds, had breakfast and lunch. Assessment & Plan (04/04/2020 12:58 PM NEUROLOGIST): Assessment: Has been drinking excessive amounts of water and putting her fingers in her mouth to induce vomiting. No recorded emesis since 03/25. Plan: Will limit access to water to 250ml at a time. May only bathe once per day after she has taken her meds, had breakfast and lunch. Assessment & Plan (04/01/2020 11:55 AM NEUROLOGIST): Assessment: Has been drinking excessive amounts of water and putting her fingers in her mouth to induce vomiting. No recorded emesis since 03/25. Plan: Will limit access to water to 250ml at a time. May only bathe once per day after she has taken her meds, had breakfast and lunch. Assessment & Plan (03/24/2020 4:53 PM NEUROLOGIST): Assessment: Has been drinking excessive amounts of water and putting her fingers in her mouth to induce vomiting. Plan: Will limit access to water to 250ml at a time. May only bathe once per day after she has taken her meds, had breakfast and lunch. Ovarian cyst 01/12/2020 03/19/2020 Assessment & Plan (03/15/2020 11:10 AM NEUROLOGIST): Assessment: on ultrasound on R Plan: -Radiology recommended repeat imaging in 6 months for ovarian cysts Assessment & Plan (03/04/2020 1:41 PM NEUROLOGIST): Assessment: on ultrasound on R Plan: -Radiology recommended repeat imaging in 6 months for ovarian cysts Assessment & Plan (03/04/2020 11:50 AM NEUROLOGIST): Assessment: on ultrasound on R Plan: -Radiology recommended repeat imaging in 6 months for ovarian cysts Assessment & Plan (02/27/2020 9:58 AM NEUROLOGIST): Assessment: on ultrasound on R Plan: -Radiology recommended repeat imaging in 6 months for ovarian cysts Assessment & Plan (01/28/2020 11:59 AM NEUROLOGIST): Assessment: on ultrasound on R Plan: -Radiology recommended repeat imaging in 6 months for ovarian cysts Assessment & Plan (01/27/2020 3:52 PM NEUROLOGIST): Assessment: on ultrasound on R Plan: -Radiology recommended repeat imaging in 6 months for ovarian cysts Assessment & Plan (01/26/2020 6:01 PM NEUROLOGIST): Assessment: on ultrasound on R Plan: -Radiology recommended repeat imaging in 6 months for ovarian cysts Assessment & Plan (01/13/2020 2:33 PM NEUROLOGIST): Assessment: on ultrasound on R Plan: -Radiology recommended repeat imaging in 6 months for ovarian cysts Assessment & Plan (01/12/2020 1:26 PM NEUROLOGIST): Assessment: on ultrasound on R Plan: -Radiology recommended repeat imaging in 6 months for ovarian cysts Self-injurious behavior 03/25/201705/12 Major depressive disorder, severe 03/21/2017 05/24/2020 Intractable vomiting 020 Encounters * This document contains information received from the source organization and may not represent a complete record from that organization. Date Type Department Care Team Description 09/22/2024 Telephone [facility] [address] [place] [address] Ronel Thornton, Medication Request 07/07/2024 Travel from Last 3 Months Immunizations Immunization Administration Dates Next Due ClearSlide primary monoval ent 12+ yr 0.3mL Purple [...] Recorded Patient Health Questionnaire-2 Score 0 07/07/2024 [facility] - Occupational [...] place to sleep or slept in a fpc (including now)? No 04/24/2023 Comments No Sex and Gender Information Value Date Recorded Sex Assigned at Not on file Legal Sex Female 6:25 PM NEUROLOGIST Gender Identity Not on file Sexual Orientation [...] st Contact Info) Description 01/20/2025 8:20 AM NEUROLOGIST Office Visit [facility] - Family Medicine [address] [place] [address] Ronel Thornton DO [address] [place] [address] Health Maintenance Due Date Last Done [...] 11/28/2024 11/29/2023, 06/07/2022, 01/23/2022, Additional history exists ZOSTER VACCINE (1 of 2) 2052 PNEUMOCOCCAL [...] Comment: Performed at: 02 - [facility] [address] [id number] Replanter: Meredith Gil MD, Phone: [phone] Performed at: 01 - [facility] [address] [id number] Replanter: Meredith Gil MD, Phone: [phone] Diagnosis Comment(A) [facility] ACCOUNT BILL Comment: EPITHELIAL [...] Comment [facility] ACCOUNT BILL Comment:Anne-Marie Woodruff MD, Chandra thologist Comment . [facility] ACCOUNT BILL Pathologist [...] - 12/05/2023 5:09 PM CDT Performed at: [address] [place] [id number] Replanter: Meredith Gil MD, Phone: [phone] Specimen Comment: [id number] Specimen Comment: Source.............Cervix Specimen Comment: No. of containers..01 ThinPrep Vial us Nai Jurado MD LAB - PATHOLOGY/CYTOLOGY [place] Final Result [facility] ACCOUNT BILL [address] [place] [address] * HIV-1 HIV-2 ANTIBODY + HIV P24 [...] AM CDT Performed at: 01 - [facility] [place] [address] [place], [place] [id number] Replanter: Karlos Huffman PhD, Phone: [phone] Nai Jurado MD LAB - CHEMISTRY ORDERABLES Fi nal Result Performing Organization Address City/[facility]/ZIP Co de Phone Number [facility] ACCOUNT BILL [address] [place] [address] * HEPATITIS C AB W/RFLX TO HCV RNA QN PCR (12/07/2021) Hepatitis C Antibody NON-REACTI VE NON-REACT [facility] Signal to Cut-Off 0.08 <1.00 [facility] Comment: HCV antibody was non-reactive. There is no laboratory evidence of HCV infection. In most cases, no further action is required. However, if recent HCV exposure is suspected, a test for HCV RNA (test code 57432) is suggested. For additional information please refer to http://[email or web address].Mountvacation/faq/RUB88c2 (This link is being provided for informational/ educational purposes only.) Test Performed at: [facility] [address] [place] [address] PURVI PABLO DO,MPH Blood BLOOD SPECIMEN / Unknown 12/07/2021 12/07/2021 10:47 AM CDT us Karrie Mack MD LAB - CHEMISTRY ORDERABLES Final Result [facility] [address] [place] [address] from Last 3 Months or Most Recently Relevant to Health Maintenance Insurance [facility] Member Subscriber Plan / Payer (Ef fective 2023-) Name:Marlee Newman Kathleen Relation to Subscriber:Child Name:NAI NEWMAN Date of :1984 (Home) (Work) Address: [address] [place] [address] Payer ID:[id number] ([facility]) Group ID:[id number] Type:Commercial Address: [place] [phone] [facility] Member Subscriber Plan / Payer ( fective 2023-) Name:Marlee Newman Kathleen Relation to Subscriber:Child Name:NAI NEWMAN Date of :1982 (Home) (Work) Address: [address] [place] [address] Payer ID:[id number] ([facility]) Group ID:[id number] Type:Commercial Address: [place] [phone] [facility] Advance Directives * Full Code [...] 4:54 PM 06/22/2022 2:44 PM Care Teams Industrial Rehabilitation Consultant Relationship Specialty Start Date End Date Ronel Thornton DO [address] [place] [address] PCP - General Family Medicine 03/18/23 Ronel Thornton DO [address] [place] [address] PCP - Attributed-[facility] ST[facility] 04/12/23
--- OUTSIDE RECORDS SUMMARY | 2024-09-26 02:37 | XMS_ITS | Encounter Summary ---
Author Organization [facility] Address [address] [place] [address] Care Team Providers Care Multi Line Claims Adjuster Name Role Phone Mellissa Jiménez MD Primary Care Provider [phone] Ronel Thornton DO Primary Care Provider [phone] Daphnie Gillespie MD Unavailable Juliana Peralta COTTON GRADER Unavailable [phone] Juliana Peralta Unavailable [phone] Ronel Thornton DO Unavailable [phone] Kenyatta Taylor RN Unavailable Tiago Lew Unavailable [phone] Encounter Details Date Type Department Care Team (Late st Contact Info) Description 07/28/2020 Telephone [facility] - Pulmonology [address] [place] [address] Bessie Erwin Social History Tobacco Use Types Packs/Day Years Used Date Smoking Tobacco: Never Smokeless Tobacco: Never Alcohol Use Standard Drinks/Week Comments No 0 (1 standard drink = 0.6 oz pur e alcohol) Comments No Sex and Gender Information Value Date Recorded Sex Assigned at Not on file Legal Sex Female 6:25 PM EATING DISORDER SPECIALIST Gender Identity Not on file Sexual [...] PM CDT Mom called regarding not eating [phone] Marla Gillespie documented in this encounter Plan of Treatment Upcoming Encounters Date Type Department Care Team (Late st Contact Info) Description 01/20/2025 8:20 AM EATING DISORDER SPECIALIST Office Visit [facility] [address] [address] Ronel Thornton DO [address] [place] [address] documented as of this encounter Visit Diagnoses Not on filedocumented in this encounter Additional Health Concerns Infection Onset Date Last Indicated Resolved Time COVID-19 Under Investigation 08/10/2021 08/10/2021 08/10/2021 2:59 AM CDT documented as of this encounter Care Teams Multi Line Claims Adjuster Relationship Specialty Start Date End Date Mellissa Jiménez MD [address] [place] [address] [place] [address] PCP - General Family Medicine 04/25/20 03/17/23 Ronel Thornton DO [address] [place], [place] [address] [address] PCP - General Family Medicine 03/18/23 Daphnie Gillespie MD [address] [place] [phone] PCP - Attributed-[facility] STL 02/11/23 04/11/23 Ronel Thornton DO [address] [place], [place] [address], [place] [address] PCP - Attributed-[facility] STL 04/12/23 Juliana Peralta MSW Outpatient Parboiler Care Management 04/24/2304/11 Juliana Peralta MSW Outpatient Parboiler Care Management 04/30/2304/12 Kenyatta Taylor RN [address] [address] Special EducatorPortrait Photographer 09/02/23 10/04/23 Tiago Lew Care Coordination Specialist Care Management 09/26/23 11/10/23 documented as of this encounter
[2024-09-26] MEDS: FAMOTIDINE 20 MG/2 ML VIAL IV PUSH (02:53)
[2024-09-26] MEDS: LACTATED RINGERS 1,000 ML 999 ML IV CONT ×2 (02:54)
--- NOTE | 2024-09-26 03:08 | ED.ANXIETY ---
HPI - Anxiety General Chief Complaint: Anxiety Stated Complaint: anxiety Time Seen by Provider: 09/26/24 02:38 History of Present Illness HPI narrative: 24-year-old female with history of cyclic vomiting syndrome, cannabis hyperemesis syndrome came anxiety. She presents to the emergency department with nausea vomiting and retching. States she was just discharged last night after being admitted for colitis and intractable nausea and vomiting. She felt better and improved during hospital stay where she received antiemetics, IV fluids Rocephin and Flagyl. Patient was discharged home with oral antibiotics continuing for several days. She states she filled this prescription and has been taking her 1st dose. Endorses a recurrence of her similar symptoms that brought her in the 1st time. Nausea vomiting and epigastric abdominal discomfort. States that she has been anxious and woke up feeling symmetrically anxious and this caused her to vomit multiple times. States that feels very similar to her normal cyclic vomiting episodes. Related Data Home Medications ?Medication ?Instructions ?Recorded ?Confirmed ?Last Taken ?Type escitalopram oxalate 10 mg tablet 10 mg PO DAILY 07/18/24 09/26/24 09/22/24 History olanzapine 2.5 mg tablet 5 mg PO DAILY 09/23/24 09/26/24 09/21/24 History Allergies Allergy/AdvReac Type Severity Reaction Status Date / Time No Known Allergies Allergy Verified 09/26/24 02:42 Review of Systems Review of Systems: As reviewed [facility] Past Medical History Medical History (Updated 09/26/24 @ 07:20 by Cipriano Guadarrama MD) Intractable nausea and vomiting Drug withdrawal seizure History of eating disorder Anxiety Depression Family History Family History Grandparent History of alcoholism Depression Mother History of alcoholism Hypertension Depression Social History Social History Smoking status: Current every day smoker Smokeless tobacco user: other Alcohol intake: never Substance use: current Substance use type: marijuana Last use: 07/18/2024 Do You Feel Safe in your Home?: Yes Lack of Transportation: No Lack of Food: Never True Current Housing: I Have Housing Concerned About Future Housing: No Difficulty Paying Gas/Electric Bills: No Difficulty Paying for Meds: No Currently Unemployed: No Education: Decline to Answer Difficulty w/ Childcare or Family Care: No Living arrangements: with roommate(s) Occupation/Education: unemployed Additional occupation/education comments: not currently working or in school Gender identity (if verbalized by the patient): Female Spiritual care concerns: No Exam Narrative: GENERAL: Acute distress jumping up and down actively retching very loudly, vomited several times and has vomitus all over her clothing. Awake and answering all questions appropriately. HEAD: Normocephalic EYES: [PERRLA and EOMI.] ENT: Nares clear, no rhinorrhea or epistaxis. Mucous membranes moist. NECK: Supple. CHEST: Clear to auscultation, no respiratory distress aside from mild tachypnea from jumping. HEART: Tachycardic rate, regular rhythm. No murmur heard. [Normal peripheral pulses.] ABDOMEN: Soft and nondistended, minimally tender, no rigidity or guarding EXTREMITIES: Normal range of motion. [No edema.] SKIN: Warm, dry, no rash. NEURO: [No focal deficits]. Alert and oriented [x3.] PSYCH: Anxious and tearful Course Vital Signs Vital signs: Vital Signs Temperature 36.4 C 09/26/24 02:39 Pulse Rate 118 H 09/26/24 02:39 Respiratory Rate 28 H 09/26/24 02:39 Blood Pressure 154/121 H 09/26/24 02:39 Pulse Oximetry 98 09/26/24 02:39 Oxygen Delivery Room Air 09/26/24 02:39 Temperature 36.4 C 09/26/24 02:39 Pulse Rate 99 09/26/24 06:38 Respiratory Rate 20 09/26/24 06:38 Blood Pressure 128/88 09/26/24 06:38 Pulse Oximetry 99 09/26/24 06:38 Oxygen Delivery Room Air 09/26/24 02:39 MDM - Anxiety MDM Narrative Medical decision making narrative: 24-year-old female with history of cyclic vomiting syndrome, cannabis hyperemesis syndrome came anxiety. She presents to the emergency department with nausea vomiting and retching. States she was just discharged last night after being admitted for colitis and intractable nausea and vomiting. She felt better and improved during hospital stay where she received antiemetics, IV fluids Rocephin and Flagyl. Patient was discharged home with oral antibiotics continuing for several days. She states she filled this prescription and has been taking her 1st dose. Endorses a recurrence of her similar symptoms that brought her in the 1st time. Nausea vomiting and epigastric abdominal discomfort. States that she has been anxious and woke up feeling symmetrically anxious and this caused her to vomit multiple times. States that feels very similar to her normal cyclic vomiting episodes. Patient is jumping up and down in the room actively retching and vomiting. She is tachycardic and mildly tachypneic. Uncomfortable appearing. Awake alert answering all questions appropriately. Patient has a history of these episodes previously and was admitted last few days for this. Given antiemetics including droperidol to help with her symptoms. Fluid boluses initiated. Laboratory studies obtained. No indications repeat imaging at this time given her recent radiological findings and treatment regimen. Patient has elevated lactic acid secondary to dehydration. Vital signs and symptoms all improved with treatment regimen here in the emergency department. Given patient's intractable nausea vomiting and recent discharge she was readmitted to the hospital at this time. Spoke to the hospitalist was comfortable with the plan for telemetry monitored bed. P.r.n. medications placed an order. Medical Records Attestation: I reviewed the patient's medical records. Lab Data Attestation: I reviewed the patient's lab results. 09/26/24 03:01 09/26/24 03:01 Labs: Lab Results 09/26/24 09/26/24 Range/Units 03:01 03:47 WBC 10.0 (4.5-10.0) K/mm3 RBC 3.93 L (4.2-5.4) M/mm3 Hgb 11.8 L (12.0-15.0) g/dL Hct 34.4 L (37.0-47.0) % MCV 87.5 (80-100) fl MCH 30.0 (26-34) pg MCHC 34.3 (32-36) g/dl RDW 12.6 (11.5-14.5) % Plt Count 314 (150-375) k/mm3 MPV 9.9 (7.4-10.4) fl Immature Gran % (Auto) 0.2 (0-0.5) % Neut % (Auto) 50.3 (45.5-73.1) % Lymph % (Auto) 38.1 (18.3-44.2) % Hand % (Auto) 10.8 H (2.6-8.5) % Eos % (Auto) 0.2 (0-4.4) % Baso % (Auto) 0.4 (0.2-1.2) % Lymph # (Auto) 3.80 H (0.9-3.2) K/mm3 Hand # (Auto) 1.1 H (0.1-0.6) K/mm3 Eos # (Auto) 0.0 (0-0.3) K/mm3 Baso # (Auto) 0.0 (0.0-0.1) K/mm3 Abs Immat Gran (auto) 0.02 (0.00-0.031) K/mm3 Absolute Neuts (auto) 5.0 (1.3-6.7) K/mm3 Absolute Nucleated RBC 0.000 (0.0-0.012) K/mm3 Nucleated RBC % 0.0 (0.0-0.2) % Sodium 140 (137-145) mmol/L Potassium 3.4 (3.4-5.0) mmol/L Chloride 108 H (98-107) mmol/L Carbon Dioxide 17 L (22-30) mmol/L Anion Gap 15 H (4-12) mmol/L BUN 6 L (7-17) mg/dL Creatinine 0.86 (0.7-1.0) mg/dL Estim Creat Clear Calc 67 ml/min Estimated GFR > 60 (59 - ) Glucose 106 (65-110) mg/dL Lactic Acid 4.3 H* (0.7-2.0) mmol/L Calcium 9.0 (8.4-10.2) mg/dL Total Bilirubin 0.3 (0.2-1.3) mg/dL AST 52 H (14-36) U/L ALT 24 (6-35) U/L Alkaline Phosphatase 65 (38-126) U/L Total Protein 6.7 (6.3-8.2) g/dL Albumin 4.1 (3.5-5.1) g/dL Lipase 147 (23-300) U/L Critical Care Time Critical Care Time Critical Care Time: Yes Total Critical Care Time: 35 Discharge Plan Discharge Clinical Impression: Lactic acidosis, Cyclical vomiting, Dehydration, Intractable nausea and vomiting Patient Disposition: Still a Patient Condition: Stable Time of Disposition: 06:30
[2024-09-26 03:10] LABS: Hematocrit 34.4 % (37.0-47.0); Hemoglobin 11.8 g/dL (12.0-15.0); Immature Granulocyte Percent A 0.2 % (0-0.5); Lymphocytes Absolute Auto 3.80 K/mm3 (0.9-3.2); Mean Corpuscular HGB Conc 34.3 g/dl (32-36); Mean Corpuscular Hemoglobin 30.0 pg (26-34); Mean Corpuscular Volume 87.5 fl (80-100); Nucleated Red Blood Cells Absolute Auto 0.000 K/mm3 (0.0-0.012); Nucleated Red Blood Cells Perc 0.0 % (0.0-0.2); Platelet Count Result 314 k/mm3 (150-375); Red Blood Count 3.93 M/mm3 (4.2-5.4); White Blood Count 10.0 K/mm3 (4.5-10.0)
--- NOTE | 2024-09-26 03:26 | PC.NURSE ---
Patient jumping up and down in room, she states It helps the pain. Patient instructed multiple times that she may need to stop jumping up and down for her safety and to ensure that her IV stays in place and does not get pulled out. Patient verbalized understanding, but continues to jump up and down in room. IV was resecured.
[2024-09-26 03:36] LABS: Alanine Aminotransferase 24 U/L (6-35); Albumin Level 4.1 g/dL (3.5-5.1); Alkaline Phosphatase 65 U/L (38-126); Anion Gap 15 mmol/L (4-12); Aspartate Amino Transferase 52 U/L (14-36); Bilirubin,Total 0.3 mg/dL (0.2-1.3); Blood Urea Nitrogen 6 mg/dL (7-17); Calcium 9.0 mg/dL (8.4-10.2); Carbon Dioxide 17 mmol/L (22-30); Chloride 108 mmol/L (98-107); Estimated CRCL calculation 67 ml/min; Estimated Glomerular Filt Rate > 60; Glucose 106 mg/dL (65-110); Lipase 147 U/L (23-300); Potassium 3.4 mmol/L (3.4-5.0); Sodium 140 mmol/L (137-145); Total Protein 6.7 g/dL (6.3-8.2)
--- OUTSIDE RECORDS SUMMARY | 2024-09-26 04:29 | XMS_ITS | Encounter Summary ---
Author Organization [facility] Address [address] [place] [address] Care Team Providers Care Frame Table Operator Helper Name Role Phone Mellissa Jiménez MD Primary Care Provider [phone] Ronel Thornton DO Primary Care Provider [phone] Daphnie Gillespie MD Unavailable Juliana Peralta ORGANIZATION DEVELOPMENT CONSULTANT Unavailable [phone] Juliana Peralta Unavailable [phone] Ronel Thornton DO Unavailable [phone] Kenyatta Taylor RN Unavailable Tiago Lew Unavailable [phone] Encounter Details Date Type Department Care Team (Late st Contact Info) Description 07/28/2020 Telephone [facility] Pediatrics - Pulmonology [address] [place] [id number] Bessie Erwin Social History Tobacco Use Types Packs/Day Years Used Date Smoking Tobacco: Never Smokeless Tobacco: Never Alcohol Use Standard Drinks/Week Comments No 0 (1 standard drink = 0.6 oz pur e alcohol) Comments No Sex and Gender Information Value Date Recorded Sex Assigned at Not on file Legal Sex Female 6:25 PM 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 ROLLER OPERATOR Gender Identity Not on file Sexual [...] PM CDT Mom called regarding not eating [phone] Marla Gillespie documented in this encounter Plan of Treatment Upcoming Encounters Date Type Department Care Team (Late st Contact Info) Description 01/20/2025 8:20 AM STEM ROLLER OPERATOR Office Visit [facility] Family [address] [address] Ronel Thornton DO [address] [place] [id number] documented as of this encounter Visit Diagnoses Not on filedocumented in this encounter Additional Health Concerns Infection Onset Date Last Indicated Resolved Time COVID-19 Under Investigation 08/10/2021 08/10/2021 08/10/2021 2:59 AM CDT documented as of this encounter Care Teams Frame Table Operator Helper Relationship Specialty Start Date End Date Mellissa Jiménez MD [address] [place] [address] [place] [address] PCP - General Family Medicine 04/25/20 03/17/23 Ronel Thornton DO [address] [place], [place] [address] [address] PCP - General Family Medicine 03/18/23 Daphnie Gillespie MD [address] [place] [phone] PCP - Attributed-[facility] 02/11/23 04/11/23 Ronel Thornton DO [address] [place], [place] [address] [address] PCP - Attributed-[facility] ST[facility] 04/12/23 Juliana Peralta MSW Outpatient Alkylation Operator Care Management 04/24/2304/11 Juliana Peralta MSW Outpatient Alkylation Operator Care Management 04/30/2304/12 Kenyatta Taylor RN [address] [address] Trailer AssemblerRotary Dump Operator 09/02/23 10/04/23 Tiago Lew Care Coordination Specialist Care Management 09/26/23 11/10/23 documented as of this encounter
--- OUTSIDE RECORDS SUMMARY | 2024-09-26 04:29 | XMS_ITS | Clinical Summary ---
Author Organization [facility] Address [address] [place] [address] Phone Care Team Providers Care School Bus Mechanic Name Role Phone Mellissa Jiménez MD Primary [...] on file Legal Sex Female 10:44 PM CYBER DEFENSE ANALYST Gender Identity Not on file Sexual [...] 52.2 kg (115 lb) 04/20/2023 2:30 AM CYBER DEFENSE ANALYST Height 152.4 cm (5') 04/20/2023 2:30 AM CYBER DEFENSE ANALYST Body Mass Index 22.46 04/20/2023 2:30 AM CYBER DEFENSE ANALYST Plan of Treatment Health Maintenance Due Date [...] 02/22/2003, Additional history exists [place] [address] [facility] [id number] OUT OF NETWORK Advance Directives For more information, please contact: [phone] * Full Code (Latest Code Status on File) Date Activated Date Inactivated Comments 04/20/2023 2:32 AM 04/21/2023 4:11 PM Care Teams School Bus Mechanic Relationship Specialty Start Date End Date Mellissa Jiménez MD [address] [place] [phone] PCP - General Family Practice 04/20/23
--- OUTSIDE RECORDS SUMMARY | 2024-09-26 04:29 | XMS_ITS | Clinical Summary ---
Author Organization [facility] Address [address] [place] [address] Care Team Providers Care Civil Engineering Professor Name Role Phone Ronel Thornton DO Primary Care Provider [phone] Ronel Thornton DO Unavailable Source Comments [facility],non-owned Affiliates and Associated Physician Practices is amultiple site organization consisting of ambulatory clinics and hospital sitesin [place], [place], [place] and [place]. This disclosure is being madepursuant to the Care Everywhere program and may not contain all information available regarding this patient. Last updated 17.[facility] Allergies No known active allergies Medications * [...] 01/18/2020 Assessment & Plan (01/08/2021 3:06 PM PULP MILL OPERATOR): Assessment: Major depressive disorder, generalized anxiety disorder and substance abuse disorder. Plan: - klonopin and neurontin are all habit forming, concerns they are addictive, plan to discuss terminal operations supervisor goal of weaning as outpatient - must stop all alcohol and MJ - Increased Prozac to 40 - Increased zyprexa to 15 - Melatonin 6mg QHS for sleep - avoid narcotics - taper off zyprexa as outpatient per psychiatry recs Assessment & Plan (01/07/2021 4:50 PM PULP MILL OPERATOR): Assessment: Major depressive disorder, generalized anxiety disorder and substance abuse disorder. Plan: - klonopin and neurontin are all habit forming, concerns they are addictive, plan to discuss nursing home goal of weaning as outpatient - must stop all alcohol and MJ - Increased Prozac to 40 - Increased zyprexa to 15 - Melatonin 6mg QHS for sleep - avoid narcotics - taper off zyprexa as outpatient per psychiatry recs Assessment & Plan (01/06/2021 5:55 PM PULP MILL OPERATOR): Assessment: Major depressive disorder, generalized anxiety disorder and substance abuse disorder. Plan: - klonopin and neurontin are all habit forming, concerns they are addictive, plan to discuss nursing home goal of weaning as outpatient - [...] slowly. Assessment & Plan (04/07/2020 6:45 PM PULP MILL OPERATOR): Assessment: Hx of major depressive disorder and generalized anxiety disorder. Pt has been seen by psychiatry and psychology, now improved since starting/optimizing zyprexa QHS, clonazepam TID, and prozac QD. Plan: - Prozac 30 mg QD (dose of 30 mg started on 03/09/20, Prozac initially began 02/07) - Zyprexa 5 mg QHS - Klonopin 0.5mg TID Assessment & Plan (04/06/2020 3:54 PM PULP MILL OPERATOR): Assessment: Hx of major depressive disorder [...] TID Assessment & Plan (04/05/2020 10:49 AM PULP MILL OPERATOR): Assessment: Hx of major depressive disorder [...] TID Assessment & Plan (04/04/2020 10:23 AM PULP MILL OPERATOR): Assessment: Hx of major depressive disorder [...] TID Assessment & Plan (04/03/2020 6:30 PM PULP MILL OPERATOR): Assessment: Hx of major depressive disorder [...] TID Assessment & Plan (04/01/2020 11:15 AM PULP MILL OPERATOR): Assessment: Hx of major depressive disorder [...] dose) Assessment & Plan (03/31/2020 10:07 AM PULP MILL OPERATOR): Assessment: Hx of major depressive disorder [...] dose) Assessment & Plan (03/30/2020 2:24 PM PULP MILL OPERATOR): Assessment: Hx of major depressive disorder [...] dose) Assessment & Plan (03/29/2020 6:50 AM PULP MILL OPERATOR): Assessment: Hx of major depressive disorder [...] dose) Assessment & Plan (03/27/2020 10:30 AM PULP MILL OPERATOR): Assessment: Hx of major depressive disorder and generalized anxiety disorder. Pt seen by psychiatry on admission and was started elavil, but continued to have anxiety. Elavil was discontinued due to persistent tachycardia and hypotension. [facility] she was [facility] on [...] dose) Assessment & Plan (03/26/2020 11:15 AM PULP MILL OPERATOR): Assessment: Hx of major depressive disorder [...] dose) Assessment & Plan (03/25/2020 8:58 AM PULP MILL OPERATOR): Assessment: Hx of major depressive disorder [...] dose) Assessment & Plan (03/24/2020 6:44 AM PULP MILL OPERATOR): Assessment: Hx of major depressive disorder [...] dose) Assessment & Plan (03/23/2020 12:19 PM PULP MILL OPERATOR): Assessment: Hx of major depressive disorder [...] dose) Assessment & Plan (03/22/2020 10:47 AM PULP MILL OPERATOR): Assessment: Hx of major depressive disorder [...] recommendations) Assessment & Plan (03/21/2020 3:11 PM PULP MILL OPERATOR): Assessment: Hx of major depressive disorder [...] mg. Assessment & Plan (03/20/2020 10:31 AM PULP MILL OPERATOR): Assessment: Hx of major depressive disorder and generalized anxiety disorder. Pt seen by psychiatry on admission and was started elavil, but continued to have anxiety. Elavil was discontinued due to persistent tachycardia and hypotension. [facility], she was started on zyprexa [...] 03/21. Assessment & Plan (03/19/2020 10:38 AM PULP MILL OPERATOR): Assessment: Hx of major depressive disorder [...] withdrawal Assessment & Plan (03/18/2020 12:58 PM PULP MILL OPERATOR): Assessment: Hx of major depressive disorder [...] anxiety Assessment & Plan (03/17/2020 10:33 AM PULP MILL OPERATOR): Assessment: Hx of major depressive disorder [...] appreciated Assessment & Plan (03/16/2020 2:24 PM PULP MILL OPERATOR): Assessment: Hx of major depressive disorder [...] recommendations Assessment & Plan (03/15/2020 11:11 AM PULP MILL OPERATOR): Assessment: Hx of major depressive disorder [...] anxiety Assessment & Plan (03/14/2020 6:28 AM PULP MILL OPERATOR): Assessment: Hx of major depressive disorder [...] anxiety Assessment & Plan (03/13/2020 6:28 AM PULP MILL OPERATOR): Assessment: Hx of major depressive disorder [...] anxiety Assessment & Plan (03/12/2020 11:35 AM PULP MILL OPERATOR): Assessment: Hx of major depressive disorder [...] anxiety Assessment & Plan (03/11/2020 12:43 PM PULP MILL OPERATOR): Assessment: Hx of major depressive disorder [...] anxiety Assessment & Plan (03/10/2020 6:11 AM PULP MILL OPERATOR): Assessment: Hx of major depressive disorder [...] anxiety Assessment & Plan (03/09/2020 6:24 AM PULP MILL OPERATOR): Assessment: Hx of major depressive disorder [...] anxiety Assessment & Plan (03/08/2020 10:51 AM PULP MILL OPERATOR): Assessment: Hx of major depressive disorder [...] anxiety Assessment & Plan (03/07/2020 9:15 AM PULP MILL OPERATOR): Assessment: Hx of major depressive disorder [...] -Develop daily schedule with assistance of child psychologist-Alma Assessment & Plan (03/06/2020 10:09 AM PULP MILL OPERATOR): Assessment: Hx of major depressive disorder [...] anxiety Assessment & Plan (03/05/2020 9:56 AM PULP MILL OPERATOR): Assessment: Hx of major depressive disorder [...] anxiety Assessment & Plan (03/04/2020 12:58 PM PULP MILL OPERATOR): Assessment: Hx of major depressive disorder [...] anxiety Assessment & Plan (03/03/2020 3:16 PM PULP MILL OPERATOR): Assessment: Hx of major depressive disorder [...] anxiety Assessment & Plan (03/01/2020 12:04 PM PULP MILL OPERATOR): Assessment: Hx of major depressive disorder [...] anxiety Assessment & Plan (02/29/2020 12:53 PM PULP MILL OPERATOR): Assessment: Hx of major depressive disorder [...] anxiety Assessment & Plan (02/28/2020 9:22 AM PULP MILL OPERATOR): Assessment: Hx of major depressive disorder [...] anxiety Assessment & Plan (02/27/2020 10:27 AM PULP MILL OPERATOR): Assessment: Hx of major depressive disorder [...] negative Assessment & Plan (02/26/2020 11:12 AM PULP MILL OPERATOR): Assessment: Hx of major depressive disorder [...] pending Assessment & Plan (02/25/2020 9:33 AM PULP MILL OPERATOR): Assessment: Hx of major depressive disorder [...] pending Assessment & Plan (02/24/2020 6:51 AM PULP MILL OPERATOR): Assessment: Hx of major depressive disorder [...] pending Assessment & Plan (02/23/2020 10:19 AM PULP MILL OPERATOR): Assessment: Hx of major depressive disorder [...] pending Assessment & Plan (02/22/2020 11:07 AM PULP MILL OPERATOR): Assessment: Hx of major depressive disorder [...] QHS Assessment & Plan (02/21/2020 10:54 AM PULP MILL OPERATOR): Assessment: History of major depressive disorder [...] tablet Assessment & Plan (02/20/2020 11:33 AM PULP MILL OPERATOR): Assessment: History of major depressive disorder [...] tablet Assessment & Plan (02/19/2020 3:05 PM PULP MILL OPERATOR): Assessment: History of major depressive disorder [...] tablet Assessment & Plan (02/18/2020 10:13 AM PULP MILL OPERATOR): Assessment: History of major depressive disorder [...] tablet Assessment & Plan (02/17/2020 12:26 PM PULP MILL OPERATOR): Assessment: History of major depressive disorder [...] tablet Assessment & Plan (02/16/2020 1:14 PM PULP MILL OPERATOR): Assessment: History of major depressive disorder [...] tablet Assessment & Plan (02/15/2020 12:31 PM PULP MILL OPERATOR): Assessment: History of major depressive disorder [...] tablet Assessment & Plan (02/14/2020 2:24 PM PULP MILL OPERATOR): Assessment: History of major depressive disorder [...] tablet Assessment & Plan (02/13/2020 12:00 PM PULP MILL OPERATOR): Assessment: History of major depressive disorder [...] tablet Assessment & Plan (02/12/2020 11:20 AM PULP MILL OPERATOR): Assessment: History of major depressive disorder [...] tablet Assessment & Plan (02/11/2020 11:54 AM PULP MILL OPERATOR): Assessment: History of major depressive disorder [...] tablet Assessment & Plan (02/10/2020 12:09 PM PULP MILL OPERATOR): Assessment: History of major depressive disorder [...] tablet Assessment & Plan (02/09/2020 11:50 AM PULP MILL OPERATOR): Assessment: History of major depressive disorder [...] [place] Assessment & Plan (02/08/2020 12:54 PM PULP MILL OPERATOR): Assessment: History of major depressive disorder [...] [place] Assessment & Plan (02/07/2020 11:47 AM PULP MILL OPERATOR): Assessment: History of major depressive disorder [...] [place] Assessment & Plan (02/06/2020 8:12 AM PULP MILL OPERATOR): Assessment: History of major depressive disorder [...] [place] Assessment & Plan (02/05/2020 9:12 AM PULP MILL OPERATOR): Assessment: History of major depressive disorder [...] [place] Assessment & Plan (02/04/2020 12:43 PM PULP MILL OPERATOR): Assessment: History of major depressive disorder [...] [place] Assessment & Plan (02/03/2020 2:28 PM PULP MILL OPERATOR): Assessment: History of major depressive disorder [...] [place] Assessment & Plan (02/02/2020 4:02 PM PULP MILL OPERATOR): Assessment: History of major depressive disorder [...] [place] Assessment & Plan (02/01/2020 12:12 PM PULP MILL OPERATOR): Assessment: History of major depressive disorder [...] [place] Assessment & Plan (01/31/2020 1:04 PM PULP MILL OPERATOR): Assessment: History of major depressive disorder [...] [place] Assessment & Plan (01/30/2020 10:30 AM PULP MILL OPERATOR): Assessment: History of major depressive disorder [...] [place] Assessment & Plan (01/29/2020 9:40 PM PULP MILL OPERATOR): Assessment: History of major depressive disorder [...] [place] Assessment & Plan (01/28/2020 11:59 AM PULP MILL OPERATOR): Assessment: History of major depressive disorder [...] lunch Assessment & Plan (01/27/2020 3:57 PM PULP MILL OPERATOR): Assessment: History of major depressive disorder [...] lunch Assessment & Plan (01/26/2020 6:01 PM PULP MILL OPERATOR): Assessment: History of major depressive disorder [...] [place] Assessment & Plan (01/25/2020 2:56 PM PULP MILL OPERATOR): Assessment: History of major depressive disorder [...] PO. Assessment & Plan (01/24/2020 8:11 AM PULP MILL OPERATOR): Assessment: History of major depressive disorder [...] (02/22/20) Assessment & Plan (01/23/2020 7:09 AM PULP MILL OPERATOR): Assessment: History of major depressive disorder [...] (02/22/20) Assessment & Plan (01/22/2020 7:52 AM PULP MILL OPERATOR): Assessment: History of major depressive disorder [...] (02/22/20) Assessment & Plan (01/21/2020 7:40 AM PULP MILL OPERATOR): Assessment: History of major depressive disorder [...] (02/22/20) Assessment & Plan (01/20/2020 7:36 AM PULP MILL OPERATOR): Assessment: History of major depressive disorder [...] (02/22/20) Assessment & Plan (01/19/2020 7:22 AM PULP MILL OPERATOR): Assessment: History of major depressive disorder [...] (02/22/20) Assessment & Plan (01/18/2020 4:35 PM PULP MILL OPERATOR): Assessment: History of major depressive disorder [...] range. Assessment & Plan (04/08/2020 1:31 PM PULP MILL OPERATOR): Assessment: Malnutrition is secondary to ARFID, [...] PT Assessment & Plan (04/07/2020 2:52 PM PULP MILL OPERATOR): Assessment: Malnutrition is secondary to ARFID, [...] PT Assessment & Plan (04/07/2020 6:44 PM PULP MILL OPERATOR): Assessment: Marlee is a 19 year [...] follow up with adolescent medicine on 04/18, [facility] on 05/02, and and scheduling Psych intake visit SOCIAL: - General medicine team spoke with and updated mother on 04/06 LABS: daily urine spec gravity, BMP/Mg/Phos Q / Assessment & Plan (04/06/2020 6:45 PM PULP MILL OPERATOR): Assessment: Marlee is a 19 year [...] / Assessment & Plan (04/05/2020 3:22 PM PULP MILL OPERATOR): Assessment: Malnutrition is secondary to ARFID, [...] PT Assessment & Plan (04/05/2020 10:49 AM PULP MILL OPERATOR): Assessment: Marlee is a 19 year [...] T/ Assessment & Plan (04/04/2020 3:59 PM PULP MILL OPERATOR): Assessment: Malnutrition is secondary to ARFID, [...] daily Assessment & Plan (04/04/2020 10:21 AM PULP MILL OPERATOR): Assessment: Marlee is a 19 year [...] / Assessment & Plan (04/03/2020 12:59 PM PULP MILL OPERATOR): Assessment: Marlee is a 19 year [...] daily Assessment & Plan (04/02/2020 4:19 PM PULP MILL OPERATOR): Assessment: Marlee is a 19 year [...] daily Assessment & Plan (04/01/2020 11:55 AM PULP MILL OPERATOR): Assessment: Malnutrition is secondary to ARFID [...] daily Assessment & Plan (04/01/2020 11:15 AM PULP MILL OPERATOR): Assessment: Marlee is a 19 year [...] daily Assessment & Plan (03/31/2020 12:05 PM PULP MILL OPERATOR): Assessment: Malnutrition is secondary to ARFID [...] daily Assessment & Plan (03/31/2020 10:06 AM PULP MILL OPERATOR): Assessment: Marlee is a 19 year [...] daily Assessment & Plan (03/30/2020 2:24 PM PULP MILL OPERATOR): Assessment: Marlee is a 19 year [...] daily Assessment & Plan (03/29/2020 10:40 AM PULP MILL OPERATOR): Assessment: Marlee is a 19 year [...] allowed in room. May have water from [employer] cup. Oral fluids limited to 250 mL [...] daily Assessment & Plan (03/28/2020 12:29 PM PULP MILL OPERATOR): Assessment: Marlee is a 19 year [...] daily Assessment & Plan (03/27/2020 10:34 AM PULP MILL OPERATOR): Assessment: Marlee is a 19 year [...] night 03/27: Increase to 50 mL/hr tonight. [facility] is aware of increase but did [...] daily Assessment & Plan (03/26/2020 11:20 AM PULP MILL OPERATOR): Assessment: Marlee is a 19 year [...] daily Assessment & Plan (03/25/2020 12:30 PM PULP MILL OPERATOR): Assessment: Marlee is a 19 year [...] daily Assessment & Plan (03/24/2020 5:02 PM PULP MILL OPERATOR): Assessment: Malnutrition is secondary to ARFID [...] anxiety Assessment & Plan (03/24/2020 11:19 AM PULP MILL OPERATOR): Assessment: Marlee is a 19 year [...] allowed in room. May have water from [employer] cup. - May take shower while sitting [...] daily Assessment & Plan (03/23/2020 12:20 PM PULP MILL OPERATOR): Assessment: Marlee is a 19 year [...] daily Assessment & Plan (03/22/2020 12:20 PM PULP MILL OPERATOR): Assessment: Marlee is a 19 year [...] daily Assessment & Plan (03/21/2020 3:10 PM PULP MILL OPERATOR): Assessment: Marlee is a 19 year [...] 03/15/2020. Assessment & Plan (03/20/2020 10:32 AM PULP MILL OPERATOR): Assessment: Marlee is a 19 year [...] 03/15/2020. Assessment & Plan (03/19/2020 10:37 AM PULP MILL OPERATOR): Assessment: Marlee is a 19 year [...] 03/15/2020. Assessment & Plan (03/18/2020 1:00 PM PULP MILL OPERATOR): Assessment: Marlee is a 19 year [...] 03/15/2020. Assessment & Plan (03/17/2020 10:36 AM PULP MILL OPERATOR): Assessment: Marlee is a 19 year [...] 03/15/2020. Assessment & Plan (03/16/2020 2:10 PM PULP MILL OPERATOR): Assessment: Marlee is a 19 year [...] 03/15/2020. Assessment & Plan (03/15/2020 11:10 AM PULP MILL OPERATOR): Assessment: Marlee is a 19 year [...] 03/15/2020 Assessment & Plan (03/14/2020 9:53 AM PULP MILL OPERATOR): Assessment: Marlee is a 19 year [...] 03/15/2020 Assessment & Plan (03/13/2020 9:39 AM PULP MILL OPERATOR): Assessment: Marlee is a 19 year [...] week Assessment & Plan (03/12/2020 11:35 AM PULP MILL OPERATOR): Assessment: Marlee is a 19 year [...] week Assessment & Plan (03/11/2020 12:43 PM PULP MILL OPERATOR): Assessment: Marlee is a 19 year [...] week Assessment & Plan (03/10/2020 9:12 AM PULP MILL OPERATOR): Assessment: Marlee is a 19 year [...] in Assessment & Plan (03/09/2020 10:22 AM PULP MILL OPERATOR): Assessment: Marlee is a 19 year [...] in Assessment & Plan (03/08/2020 10:52 AM PULP MILL OPERATOR): Assessment: Marlee is a 19 year [...] in Assessment & Plan (03/07/2020 9:18 AM PULP MILL OPERATOR): Assessment: Marlee is a 19 year [...] in Assessment & Plan (03/06/2020 10:09 AM PULP MILL OPERATOR): Assessment: Marlee is a 19 year [...] in Assessment & Plan (03/05/2020 9:56 AM PULP MILL OPERATOR): Assessment: Marlee is a 19 year [...] in Assessment & Plan (03/04/2020 12:58 PM PULP MILL OPERATOR): Assessment: Marlee is a 19 year [...] A/P Assessment & Plan (03/03/2020 3:15 PM PULP MILL OPERATOR): Assessment: Marlee is a 19 year [...] A/P Assessment & Plan (03/02/2020 12:06 PM PULP MILL OPERATOR): Assessment: Marlee is a 19 year [...] A/P Assessment & Plan (03/01/2020 12:05 PM PULP MILL OPERATOR): Assessment: Marlee is a 19 year [...] A/P Assessment & Plan (02/29/2020 12:52 PM PULP MILL OPERATOR): Assessment: Marlee is a 19 year [...] A/P Assessment & Plan (02/28/2020 9:12 AM PULP MILL OPERATOR): Assessment: Marlee is a 19 year [...] A/P Assessment & Plan (02/27/2020 10:03 AM PULP MILL OPERATOR): Assessment: Marlee is a 19 year [...] A/P Assessment & Plan (02/26/2020 11:12 AM PULP MILL OPERATOR): Assessment: Marlee is a 19 year [...] A/P Assessment & Plan (02/25/2020 9:32 AM PULP MILL OPERATOR): Assessment: Marlee is a 19 year [...] A/P Assessment & Plan (02/24/2020 10:42 AM PULP MILL OPERATOR): Assessment: Marlee is a 19 year [...] A/P Assessment & Plan (02/23/2020 10:22 AM PULP MILL OPERATOR): Assessment: Marlee is a 19 year [...] A/P Assessment & Plan (02/22/2020 11:25 AM PULP MILL OPERATOR): Assessment: Marlee is a 19 year [...] A/P Assessment & Plan (02/21/2020 10:54 AM PULP MILL OPERATOR): Assessment: Marlee is a 19 year [...] A/P Assessment & Plan (02/20/2020 11:31 AM PULP MILL OPERATOR): Assessment: Marlee is a 19 year [...] fecal calprotectin was ordered and was WNL. Malree has also had persistently low Hg and [...] A/P Assessment & Plan (02/19/2020 3:04 PM PULP MILL OPERATOR): Assessment: Marlee is a 19 year [...] TPN. Assessment & Plan (02/18/2020 10:14 AM PULP MILL OPERATOR): Assessment: Marlee is a 19 year [...] Sat) Assessment & Plan (02/17/2020 12:30 PM PULP MILL OPERATOR): Assessment: Marlee is a 19 year [...] pending Assessment & Plan (02/16/2020 2:29 PM PULP MILL OPERATOR): Assessment: Marlee is a 19 year [...] pending Assessment & Plan (02/15/2020 12:33 PM PULP MILL OPERATOR): Assessment: Marlee is a 19 year [...] pending Assessment & Plan (02/14/2020 2:23 PM PULP MILL OPERATOR): Assessment: Marlee is a 19 year [...] pending Assessment & Plan (02/13/2020 11:59 AM PULP MILL OPERATOR): Assessment: Marlee is a 19 year [...] pending Assessment & Plan (02/12/2020 11:49 AM PULP MILL OPERATOR): Assessment: Marele is a 19 year old [...] recs Assessment & Plan (02/11/2020 11:56 AM PULP MILL OPERATOR): Assessment: Marlee is a 19 year [...] recs Assessment & Plan (02/10/2020 12:11 PM PULP MILL OPERATOR): Assessment: Marlee is a 19 year [...] SG) Assessment & Plan (02/09/2020 11:49 AM PULP MILL OPERATOR): Assessment: Marlee is a 19 year [...] SG) Assessment & Plan (02/08/2020 12:54 PM PULP MILL OPERATOR): Assessment: Marlee is a 19 year [...] recs. Assessment & Plan (02/07/2020 12:06 PM PULP MILL OPERATOR): Assessment: Marlee is a 19 year [...] SG) Assessment & Plan (02/06/2020 8:12 AM PULP MILL OPERATOR): Assessment: Marlee is a 19 year [...] SG) Assessment & Plan (02/05/2020 9:12 AM PULP MILL OPERATOR): Assessment: Marlee is a 19 year [...] TG) Assessment & Plan (02/04/2020 12:52 PM PULP MILL OPERATOR): Assessment: Marlee is a 19 year [...] TG) Assessment & Plan (02/03/2020 2:38 PM PULP MILL OPERATOR): Assessment: Marlee is a 19 year [...] TG) Assessment & Plan (02/02/2020 4:02 PM PULP MILL OPERATOR): Assessment: Marlee is a 19 year [...] QOD Assessment & Plan (02/01/2020 12:08 PM PULP MILL OPERATOR): Assessment: Marlee is a 19 year [...] RBCs. Assessment & Plan (01/31/2020 1:05 PM PULP MILL OPERATOR): Assessment: Marlee is a 19 year [...] hematuria Assessment & Plan (01/30/2020 10:30 AM PULP MILL OPERATOR): Assessment: Marlee is a 19 year [...] 10.2 Assessment & Plan (01/29/2020 9:39 PM PULP MILL OPERATOR): Assessment: Marlee is a 19 year [...] syndrome Assessment & Plan (01/28/2020 11:59 AM PULP MILL OPERATOR): Assessment: Marlee is a 19 year [...] QOD Assessment & Plan (01/27/2020 3:59 PM PULP MILL OPERATOR): Assessment: Marlee is a 19 year [...] QOD Assessment & Plan (01/26/2020 5:14 PM PULP MILL OPERATOR): Assessment: Marlee is a 19 year [...] QOD Assessment & Plan (01/25/2020 2:58 PM PULP MILL OPERATOR): Assessment: Marlee is a 19 year [...] QOD Assessment & Plan (01/24/2020 11:54 AM PULP MILL OPERATOR): Assessment: Marlee is a 19 year [...] orthostatics Assessment & Plan (01/23/2020 7:09 AM PULP MILL OPERATOR): Assessment: Marlee is a 19 year [...] orthostatics Assessment & Plan (01/22/2020 4:25 PM PULP MILL OPERATOR): Assessment: Marlee is a 19 year [...] orthostatics Assessment & Plan (01/21/2020 8:15 AM PULP MILL OPERATOR): Assessment: Marlee Chavez is a 19 [...] orthostatics Assessment & Plan (01/20/2020 7:36 AM PULP MILL OPERATOR): Assessment: Marlee Chavez is a 19 [...] orthostatics Assessment & Plan (01/19/2020 7:20 AM PULP MILL OPERATOR): Assessment: Marlee Chavez is a 19 [...] orthostatics Assessment & Plan (01/18/2020 4:30 PM PULP MILL OPERATOR): Assessment: Marlee Chavez is a 19 [...] consult Assessment & Plan (03/27/2020 10:35 AM PULP MILL OPERATOR): Assessment: Marlee is admitted on ED Protocol for severe malnutrition. Following feeding plan per Adolescent Medicine and Nutrition. Plan: - see plan under ARFID problem Assessment & Plan (03/26/2020 11:20 AM PULP MILL OPERATOR): Assessment: Marlee is admitted on ED Protocol for severe malnutrition. Following feeding plan per Adolescent Medicine and Nutrition. Plan: - see plan under ARFID problem Assessment & Plan (03/24/2020 11:19 AM PULP MILL OPERATOR): Assessment: Marlee is admitted on ED Protocol for severe malnutrition. Following feeding plan per Adolescent Medicine and Nutrition. Plan: - see plan under ARFID problem Assessment & Plan (03/23/2020 9:00 AM PULP MILL OPERATOR): Assessment: Marele is admitted on ED Protocol for severe malnutrition. Following feeding plan per Adolescent Medicine and Nutrition. Plan: - see plan under ARFID problem Assessment & Plan (03/22/2020 12:21 PM PULP MILL OPERATOR): Assessment: Marlee is admitted on ED Protocol for severe malnutrition. Following feeding plan per Adolescent Medicine and Nutrition. Plan: - see plan under ARFID problem Assessment & Plan (03/17/2020 4:26 PM PULP MILL OPERATOR): Assessment: Malnutrition is secondary to ARFID [...] anxiety Assessment & Plan (03/15/2020 11:10 AM PULP MILL OPERATOR): Assessment: Marlee is admitted on ED Protocol for severe malnutrition. Following feeding plan per Adolescent Medicine and Nutrition. Plan: - see plan under ARFID problem Assessment & Plan (03/10/2020 11:17 AM PULP MILL OPERATOR): Assessment: Malnutrition is secondary to ARFID [...] needed Assessment & Plan (03/06/2020 10:09 AM PULP MILL OPERATOR): Assessment: Marlee is admitted on ED Protocol for severe malnutrition. Following feeding plan per Adolescent [facility] and Nutrition. Plan: - see plan under ARFID problem Assessment & Plan (03/04/2020 1:41 PM PULP MILL OPERATOR): Assessment: Marlee is admitted on ED Protocol for severe malnutrition. Following feeding plan per Adolescent Medicine and Nutrition. Plan: - see plan under ARFID problem Assessment & Plan (03/04/2020 11:50 AM PULP MILL OPERATOR): Assessment: Marlee is admitted on ED Protocol for severe malnutrition. Following feeding plan per Adolescent Medicine and Nutrition. Plan: - see plan under ARFID problem Assessment & Plan (03/03/2020 3:53 PM PULP MILL OPERATOR): Assessment: Malnutrition is secondary to ARFID [...] dad. Assessment & Plan (02/27/2020 9:57 AM PULP MILL OPERATOR): Assessment: Marlee is admitted on ED Protocol for severe malnutrition. Following feeding plan per Adolescent Medicine and Nutrition. Plan: - see plan under ARFID problem Assessment & Plan (02/26/2020 9:59 AM PULP MILL OPERATOR): Assessment: Malnutrition is secondary to ARFID [...] plan. Assessment & Plan (02/25/2020 5:48 PM PULP MILL OPERATOR): Assessment: Malnutrition is secondary to ARFID [...] plan. Assessment & Plan (02/18/2020 4:54 PM PULP MILL OPERATOR): Assessment: Malnutrition is secondary to ARFID [...] daily Assessment & Plan (02/11/2020 11:47 AM PULP MILL OPERATOR): Assessment: Malnutrition is secondary to ARFID [...] BID Assessment & Plan (02/09/2020 11:50 AM PULP MILL OPERATOR): Assessment: Marlee is admitted on ED Protocol for severe malnutrition. Following feeding plan per Adolescent Medicine and Nutrition. Plan: - see plan under ARFID problem Assessment & Plan (02/07/2020 11:47 AM PULP MILL OPERATOR): Assessment: Marlee is admitted on ED Protocol for severe malnutrition. Following feeding plan per Adolescent Medicine and Nutrition. Plan: - see plan under ARFID problem Assessment & Plan (02/06/2020 8:12 AM PULP MILL OPERATOR): Assessment: Marlee is admitted on ED Protocol for severe malnutrition. Following feeding plan per Adolescent Medicine and Nutrition. Plan: - see plan under ARFID problem Assessment & Plan (02/05/2020 9:01 AM PULP MILL OPERATOR): Assessment: Marlee is admitted on ED Protocol for severe malnutrition. Following feeding plan per Adolescent Medicine and Nutrition. Plan: - see plan under ARFID problem Assessment & Plan (02/04/2020 12:34 PM PULP MILL OPERATOR): Assessment: Marlee is admitted on ED Protocol for severe malnutrition. Following feeding plan per Adolescent Medicine and Nutrition. Plan: - see plan under ARFID problem Assessment & Plan (02/03/2020 2:28 PM PULP MILL OPERATOR): Assessment: Marlee is admitted on ED Protocol for severe malnutrition. Following feeding plan per Adolescent Medicine and Nutrition. Plan: - see plan under ARFID problem Assessment & Plan (02/02/2020 3:57 PM PULP MILL OPERATOR): Assessment: Marlee is admitted on ED Protocol for severe malnutrition. Following feeding plan per Adolescent Medicine and Nutrition. Plan: - see plan under ARFID problem Assessment & Plan (02/01/2020 12:10 PM PULP MILL OPERATOR): Assessment: Marlee is admitted on ED Protocol for severe malnutrition. Following feeding plan per Adolescent Medicine and Nutrition. Plan: - see plan under ARFID problem Assessment & Plan (01/31/2020 1:04 PM PULP MILL OPERATOR): Assessment: Marlee is admitted on ED Protocol for severe malnutrition. Following feeding plan per Adolescent Medicine and Nutrition. Plan: - see plan under ARFID problem Assessment & Plan (01/30/2020 10:28 AM PULP MILL OPERATOR): Assessment: Marlee is admitted on ED Protocol for severe malnutrition. Following feeding plan per Adolescent Medicine and Nutrition. Plan: - see plan under ARFID problem Assessment & Plan (01/28/2020 4:29 PM PULP MILL OPERATOR): Assessment: Malnutrition is secondary to ARFID [...] BID Assessment & Plan (01/24/2020 11:54 AM PULP MILL OPERATOR): Assessment: Marlee is admitted on ED Protocol for severe malnutrition. Following feeding plan per Adolescent Medicine and Nutrition. Plan: - see plan under ARFID problem Assessment & Plan (01/23/2020 7:09 AM PULP MILL OPERATOR): Assessment: Marlee is admitted on ED Protocol for severe malnutrition. Following feeding plan per Adolescent Medicine and Nutrition. Plan: - see plan under ARFID problem Assessment & Plan (01/22/2020 9:48 AM PULP MILL OPERATOR): Assessment: Malnutrition is secondary to ARFID [...] () Assessment & Plan (01/22/2020 7:52 AM PULP MILL OPERATOR): Assessment: Marlee is admitted on ED Protocol for severe malnutrition. Following feeding plan per Adolescent Medicine and Nutrition. Plan: - see plan under ARFID problem Assessment & Plan (01/21/2020 10:33 AM PULP MILL OPERATOR): Assessment: Malnutrition is secondary to ARFID [...] () Assessment & Plan (01/21/2020 7:40 AM PULP MILL OPERATOR): Assessment: Marlee is admitted on ED Protocol for severe malnutrition. Following feeding plan per Adolescent Medicine and Nutrition. Plan: - see plan under ARFID problem Assessment & Plan (01/20/2020 7:36 AM PULP MILL OPERATOR): Assessment: Marlee is admitted on ED Protocol for severe malnutrition. Following feeding plan per Adolescent Medicine and Nutrition. Plan: - see plan under ARFID problem Assessment & Plan (01/19/2020 7:22 AM PULP MILL OPERATOR): Assessment: Marlee is admitted on ED Protocol for severe malnutrition. Following feeding plan per Adolescent Medicine and Nutrition. Plan: - see plan under ARFID problem Assessment & Plan (01/18/2020 4:25 PM PULP MILL OPERATOR): Assessment: Marlee Chavez is a 19 [...] orthostatics Assessment & Plan (01/17/2020 12:38 PM PULP MILL OPERATOR): Assessment: Marlee Chavez is a 19 [...] anxiety Assessment & Plan (01/16/2020 1:41 PM PULP MILL OPERATOR): Assessment: Marlee Chavez is a 19 [...] anxiety Assessment & Plan (01/15/2020 8:49 PM PULP MILL OPERATOR): Assessment: Malnutrition is secondary to ARFID [...] counseling. Assessment & Plan (01/15/2020 11:57 AM PULP MILL OPERATOR): Assessment: Marlee Chavez is a 19 [...] anxiety Assessment & Plan (01/14/2020 1:00 PM PULP MILL OPERATOR): Assessment: Malnutrition is secondary to ARFID [...] () Assessment & Plan (01/14/2020 9:54 AM PULP MILL OPERATOR): Assessment: Marlee Chavez is a 19 [...] anxiety Assessment & Plan (01/13/2020 2:34 PM PULP MILL OPERATOR): Assessment: Marlee Chavez is a 19 [...] anxiety Assessment & Plan (01/13/2020 12:01 PM PULP MILL OPERATOR): Moderate protein-calorie malnutrition Assessment: Marlee Chavez [...] thereafter Assessment & Plan (01/12/2020 3:40 PM PULP MILL OPERATOR): Moderate protein-calorie malnutrition Assessment: Marlee Chavez [...] chart) Assessment & Plan (01/12/2020 1:25 PM PULP MILL OPERATOR): Assessment: Marlee Chavez is a 19 [...] anxiety Assessment & Plan (01/11/2020 11:43 AM PULP MILL OPERATOR): Assessment: Marlee Chavez is a 19 [...] cysts Assessment & Plan (01/10/2020 9:32 AM PULP MILL OPERATOR): Assessment: Marlee Chavez is a 19 [...] cysts Assessment & Plan (01/09/2020 11:08 AM PULP MILL OPERATOR): Assessment: Marlee Chavez is a 19 [...] cysts Assessment & Plan (01/08/2020 1:32 PM PULP MILL OPERATOR): Assessment: Marlee Chavez is a 19 [...] cysts Assessment & Plan (01/07/2020 2:52 PM PULP MILL OPERATOR): Assessment: Marlee Chavez is a 19 [...] cysts Assessment & Plan (01/06/2020 11:27 AM PULP MILL OPERATOR): Assessment: Marlee Chavez is a 19 [...] cysts Assessment & Plan (01/05/2020 3:49 PM PULP MILL OPERATOR): Assessment: Marlee Chavez is a 19 [...] cysts Assessment & Plan (01/04/2020 1:53 PM PULP MILL OPERATOR): Assessment: Marlee Chavez is a 19 [...] cysts Assessment & Plan (01/03/2020 12:34 AM PULP MILL OPERATOR): Assessment: Marlee Chavez is a 19 [...] 03/18/2023 Assessment & Plan (01/24/2022 5:04 PM PULP MILL OPERATOR): Assessment: Marlee Chavez is a 20 [...] gabapentin Assessment & Plan (01/23/2022 6:56 PM PULP MILL OPERATOR): Assessment: Marlee Chavez is a 20 [...] pain Assessment & Plan (01/08/2021 3:05 PM PULP MILL OPERATOR): Assessment: Patient is an 20 year [...] I&Os Assessment & Plan (01/07/2021 4:52 PM PULP MILL OPERATOR): Assessment: Patient is an 20 year [...] it Assessment & Plan (01/06/2021 6:00 PM PULP MILL OPERATOR): Assessment: Patient is an 20 year [...] I&Os Assessment & Plan (01/05/2021 1:27 PM PULP MILL OPERATOR): Assessment: Patient is an 20 year [...] I&Os Assessment & Plan (01/04/2021 9:17 PM PULP MILL OPERATOR): Assessment: Patient is an 20 year [...] I&Os Assessment & Plan (01/03/2021 8:43 PM PULP MILL OPERATOR): Assessment: Patient is an 20 year [...] wearing condom. She has upcoming appointment with cancer center director next month at which time, she will be getting a IUD. Plan: -urine test today -GC, chlamydia, trichomonas testing Assessment & Plan (05/24/2020 2:43 PM CDT): Will get urine Hcg and STI testing. Mom is aware and Marlee is ok with us communicating results to her mother. Purging 03/24/2020 05/24/2020 Assessment & Plan (04/05/2020 3:23 PM PULP MILL OPERATOR): Assessment: Has been drinking excessive amounts of water and putting her fingers in her mouth to induce vomiting. No recorded emesis since 03/25. Plan: Will limit access to water to 250ml at a time. May only bathe once per day after she has taken her meds, had breakfast and lunch. Assessment & Plan (04/04/2020 12:58 PM PULP MILL OPERATOR): Assessment: Has been drinking excessive amounts of water and putting her fingers in her mouth to induce vomiting. No recorded emesis since 03/25. Plan: Will limit access to water to 250ml at a time. May only bathe once per day after she has taken her meds, had breakfast and lunch. Assessment & Plan (04/01/2020 11:55 AM PULP MILL OPERATOR): Assessment: Has been drinking excessive amounts of water and putting her fingers in her mouth to induce vomiting. No recorded emesis since 03/25. Plan: Will limit access to water to 250ml at a time. May only bathe once per day after she has taken her meds, had breakfast and lunch. Assessment & Plan (03/24/2020 4:53 PM PULP MILL OPERATOR): Assessment: Has been drinking excessive amounts of water and putting her fingers in her mouth to induce vomiting. Plan: Will limit access to water to 250ml at a time. May only bathe once per day after she has taken her meds, had breakfast and lunch. Ovarian cyst 01/12/2020 03/19/2020 Assessment & Plan (03/15/2020 11:10 AM PULP MILL OPERATOR): Assessment: on ultrasound on R Plan: -Radiology recommended repeat imaging in 6 months for ovarian cysts Assessment & Plan (03/04/2020 1:41 PM PULP MILL OPERATOR): Assessment: on ultrasound on R Plan: -Radiology recommended repeat imaging in 6 months for ovarian cysts Assessment & Plan (03/04/2020 11:50 AM PULP MILL OPERATOR): Assessment: on ultrasound on R Plan: -Radiology recommended repeat imaging in 6 months for ovarian cysts Assessment & Plan (02/27/2020 9:58 AM PULP MILL OPERATOR): Assessment: on ultrasound on R Plan: -Radiology recommended repeat imaging in 6 months for ovarian cysts Assessment & Plan (01/28/2020 11:59 AM PULP MILL OPERATOR): Assessment: on ultrasound on R Plan: -Radiology recommended repeat imaging in 6 months for ovarian cysts Assessment & Plan (01/27/2020 3:52 PM PULP MILL OPERATOR): Assessment: on ultrasound on R Plan: -Radiology recommended repeat imaging in 6 months for ovarian cysts Assessment & Plan (01/26/2020 6:01 PM PULP MILL OPERATOR): Assessment: on ultrasound on R Plan: -Radiology recommended repeat imaging in 6 months for ovarian cysts Assessment & Plan (01/13/2020 2:33 PM PULP MILL OPERATOR): Assessment: on ultrasound on R Plan: -Radiology recommended repeat imaging in 6 months for ovarian cysts Assessment & Plan (01/12/2020 1:26 PM PULP MILL OPERATOR): Assessment: on ultrasound on R Plan: -Radiology recommended repeat imaging in 6 months for ovarian cysts Self-injurious behavior 03/25/201705/12 Major depressive disorder, severe 03/21/2017 05/24/2020 Intractable vomiting 020 Encounters * This document contains information received from the source organization and may not represent a complete record from that organization. Date Type Department Care Team Description 09/22/2024 Telephone [facility] [address] [place] [address] Ronel Thornton, Medication Request 07/07/2024 Travel from Last 3 Months Immunizations Immunization Administration Dates Next Due [employer] primary monoval ent 12+ yr 0.3mL [...] on file Legal Sex Female 6:25 PM PULP MILL OPERATOR Gender Identity Not on file Sexual [...] st Contact Info) Description 01/20/2025 8:20 AM PULP MILL OPERATOR Office Visit [facility] - Family Medicine [address] [place] [address] Ronel Thornton DO [address] [place] [address] Health Maintenance Due Date Last Done [...] BILL Comment: Performed at: 02 - [facility] [address] [id number] Gas Turbine Assembler: Meredith Gil MD, Phone: [phone] Performed at: 01 - [facility] [address] [id number] Gas Turbine Assembler: Meredith Gil MD, Phone: [phone] Diagnosis Comment(A) [facility] ACCOUNT BILL Comment: EPITHELIAL [...] - 12/05/2023 5:09 PM CDT Performed at: [address] [place] [id number] Gas Turbine Assembler: Meredith Gil MD, Phone: [phone] Specimen Comment: [id number] Specimen Comment: Source.............Cervix Specimen Comment: No. of containers..01 ThinPrep Vial us Nai Jurado MD LAB - PATHOLOGY/CYTOLOGY [place] Final Result [facility] ACCOUNT BILL [address] [place] [address] * HIV-1 HIV-2 ANTIBODY + HIV P24 [...] AM CDT Performed at: 01 - [facility] [place] [address] [place], [place] [id number] Gas Turbine Assembler: Karlos Huffman PhD, Phone: [phone] Nai Jurado MD LAB - CHEMISTRY ORDERABLES Fi nal Result Performing Organization Address City/[facility]/ZIP Co de Phone Number [facility] ACCOUNT BILL [address] [place] [address] * HEPATITIS C AB W/RFLX TO HCV RNA QN PCR (12/07/2021) Hepatitis C Antibody NON-REACTI VE NON-REACT [facility] Signal to Cut-Off 0.08 <1.00 [facility] Comment: HCV antibody was non-reactive. There is no laboratory evidence of HCV infection. In most cases, no further action is required. However, if recent HCV exposure is suspected, a test for HCV RNA (test code 43103) is suggested. For additional information please refer to http://[email or web address].InstaJob/faq/[email or web address] (This link is being provided for informational/ educational purposes only.) Test Performed at: [email or web address] [address] [place] [address] PURVI PABLO DO,MPH Blood BLOOD SPECIMEN / Unknown 12/07/2021 12/07/2021 10:47 AM CDT us Karrie Mack MD LAB - CHEMISTRY ORDERABLES Final Result [facility] [address] [place] [address] from Last 3 Months or Most Recently Relevant to Health Maintenance Insurance [facility] Member Subscriber Plan / Payer (Ef fective 2023-) Name:Marlee Newman Kathleen Relation to Subscriber:Child Name:NAI NEWMAN Date of :1984 (Home) (Work) Address: [address] [place] [address] Payer ID:[id number] ([facility]) Group ID:[id number] Type:Commercial Address: [place] [phone] [facility] Member Subscriber Plan / Payer ( fective 2023-) Name:Marlee Newman Kathleen Relation to Subscriber:Child Name:NAI NEWMAN Date of :1984 (Home) (Work) Address: [address] [place] [address] Payer ID:[id number] ([facility]) Group ID:[id number] Type:Commercial Address: [place] [phone] [facility] Advance Directives * Full Code [...] 4:54 PM 06/22/2022 2:44 PM Care Teams Civil Engineering Professor Relationship Specialty Start Date End Date Ronel Thornton DO [address] [place] [address] PCP - General Family Medicine 03/18/23 Ronel Thornton DO [address] [place] [address] PCP - Attributed-[facility] ST[facility] 04/12/23
--- OUTSIDE RECORDS SUMMARY | 2024-09-26 04:29 | XMS_ITS | Encounter Summary ---
Author Organization [facility] Address [address] [facility] [place] [address] Care Team Providers Care Communication Signals Intelligence Name Role Phone Mellissa Jiménez MD Primary Care Provider [phone] Ronel Thornton DO Primary Care Provider [phone] Daphnie Gillespie MD Unavailable Juliana Peralta WOODWINDS TEACHER Unavailable [phone] Juliana Peralta WOODWINDS TEACHER Unavailable [phone] Ronel Thornton DO Unavailable [phone] Kenyatta Taylor RN Unavailable Tiago Lew Unavailable [phone] Reason for Visit * Reason Onset Date Comments Appointment 10/05/2020 Contraceptive management 10/05/2020 Encounter Details Date Type Department Care Team (Late st Contact Info) Description 10/05/2020 Telephone [facility] [address] [place], [place] [id number] [place] [address] [place] [address] Appointment; Contraceptive management Social History Tobacco Use Types Packs/Day Years Used Date Smoking Tobacco: Never Smokeless Tobacco: Never Alcohol Use Standard Drinks/Week Comments No 0 (1 standard drink = 0.6 oz pur e alcohol) Comments No Sex and Gender Information Value Date Recorded Sex Assigned at Not on file Legal Sex Female 6:25 PM TIMBER BUCKER Gender Identity Not on file Sexual Orientation [...] the office yet to get scheduled. CB# [phone] documented in this encounter Plan of Treatment Upcoming Encounters Date Type Department Care Team (Late st Contact Info) Description 01/20/2025 8:20 AM TIMBER BUCKER Office Visit [facility] Family Medicine [address] [place] [address] Ronel Thornton DO [address] [place] [address] documented as of this encounter Visit Diagnoses Not on filedocumented in this encounter Additional Health Concerns Infection Onset Date Last Indicated Resolved Time COVID-19 Under Investigation 08/10/2021 08/10/2021 08/10/2021 2:59 AM CDT documented as of this encounter Care Teams Communication Signals Intelligence Relationship Specialty Start Date End Date Mellissa Jiménez MD [address] [place] [address] [place] [address] PCP - General Family Medicine 04/25/20 03/17/23 Ronel Thornton DO [address] [place] [address] PCP - General Family Medicine 03/18/23 [place] [address] [place] [phone] PCP - Attributed-[facility] ST[facility] 02/11/23 04/11/23 Ronel Thornton DO [address] [place] [address] PCP - Attributed-[facility] ST[facility] 04/12/23 Juliana Peralta MSW Outpatient Wood Finisher Apprentice Care Management 04/24/2304/11 Juliana Peralta MSW Outpatient Wood Finisher Apprentice Care Management 04/30/2304/12 Kenyatta Taylor RN [address] [address] Glass TechnicianSenior Climate Advisor 09/02/23 10/04/23 Tiago Lew Care Coordination Specialist Care Management 09/26/23 11/10/23 documented as of this encounter
--- OUTSIDE RECORDS SUMMARY | 2024-09-26 04:29 | XMS_ITS | Encounter Summary ---
Author Organization [facility] Address [address] [place] [address] Care Team Providers Care Skin Care Instructor Name Role Phone Mellissa Jiménez MD Primary Care Provider [phone] Ronel Thornton DO Primary Care Provider [phone] Daphnie Gillespie MD Unavailable Juliana Peralta CHEF CONCIERGE Unavailable [phone] Juliana Peralta CHEF CONCIERGE Unavailable [phone] Ronel Thornton DO Unavailable [phone] Kenyatta Taylor RN Unavailable [phone] Tiago Lew Unavailable [phone] Reason for Visit * Reason Onset Date Comments Eating disorder 08/04/2020 Encounter Details Date Type Department Care Team (Late st Contact Info) Description 08/04/2020 Telephone [facility] Load Test Mechanic [address] [place] [address] Flor Martinez, INSOLE ROUNDER Eating disorder Social History Tobacco Use Types Packs/Day Years Used Date Smoking Tobacco: Never Smokeless Tobacco: Never Alcohol Use Standard Drinks/Week Comments No 0 (1 standard drink = 0.6 oz pur e alcohol) Comments No Sex and Gender Information Value Date Recorded Sex Assigned at Not on file Legal Sex Female 6:25 PM BARREL CHARRER HELPER Gender Identity Not on file Sexual [...] they have a phone intake assessment with [facility] next SaturdayAugust 08. documented in this encounter Plan of Treatment Upcoming Encounters Date Type Department Care Team (Late st Contact Info) Description 01/20/2025 8:20 AM BARREL CHARRER HELPER Office Visit [facility] - Family Medicine [address] [place] [address] Ronel Thornton DO [address] [place] [address] documented as of this encounter Visit Diagnoses Not on filedocumented in this encounter Additional Health Concerns Infection Onset Date Last Indicated Resolved Time COVID-19 Under Investigation 08/10/2021 08/10/2021 08/10/2021 2:59 AM CDT documented as of this encounter Care Teams Skin Care Instructor Relationship Specialty Start Date End Date Mellissa Jiménez MD [address] [place] [address] [place] [address] PCP - General Family Medicine 04/25/20 03/17/23 Ronel Thornton DO [address] [place] [address] PCP - General Family Medicine 03/18/23 Daphnie Gillespie MD [address] [place] [address] PCP - Attributed-[facility] ST[facility] 02/11/23 04/11/23 Ronel Thornton DO [address] [place] [address] PCP - Attributed-[facility] ST[facility] 04/12/23 Juliana Peralta MSW Outpatient Industrial Chemistry Teacher Care Management 04/24/2304/11 Juliana Peralta MSW Outpatient Industrial Chemistry Teacher Care Management 04/30/2304/12 Kenyatta Taylor RN [address] [place] [address] Powder OperatorSecurity Police Officer 09/02/23 10/04/23 Tiago Lew Care Coordination Specialist Care Management 09/26/23 11/10/23 documented as of this encounter
--- OUTSIDE RECORDS SUMMARY | 2024-09-26 04:29 | XMS_ITS | Encounter Summary ---
Author Organization [facility] Address [address] [place] [address] Care Team Providers Care Catechist Name Role Phone Mellissa Jiménez MD Primary Care Provider [phone] Ronel Thornton DO Primary Care Provider [phone] Daphnie Gillespie MD Unavailable Juliana Peratla WASTE AND BATTING WASTE CHOPPER Unavailable [phone] Juliana Peralta WASTE AND BATTING WASTE CHOPPER Unavailable [phone] Ronel Thornton DO Unavailable Kenyatta Taylor RN Unavailable [phone] Tiago Lew Unavailable [phone] Reason for Visit * Reason Onset Date Comments Forms/questionnaires 01/23/2021 Encounter Details Date Type Department Care Team (Late st Contact Info) Description 01/23/2021 Telephone [facility] Pediatrics - Surgery [address] [place] [id number] Daphnie Gillespie MD [address] [place] [phone] Forms/questionnaires Social History Tobacco Use Types [...] on file Legal Sex Female 6:25 PM OVERLOCK SEWING 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 No / Unsure 01/24/2021 11:47 AM OVERLOCK SEWING MACHINE OPERATOR documented as of this encounter [...] wanted to know if it was received. LOCK SEWING MACHINE OPERATOR documented in this encounter Plan of Treatment Upcoming Encounters Date Type Department Care Team (Late st Contact Info) Description 01/20/2025 8:20 AM OVERLOCK SEWING MACHINE OPERATOR Office Visit [facility] - Family Medicine [address] [place] [address] [phone] Ronel Thornton DO [address] [place] [address] [phone] documented as of this encounter Visit Diagnoses Not on filedocumented in this encounter Additional Health Concerns Infection Onset Date Last Indicated Resolved Time COVID-19 Under Investigation 08/10/2021 08/10/2021 08/10/2021 2:59 AM CDT documented as of this encounter Care Teams Catechist Relationship Specialty Start Date End Date Mellissa Jiménez MD [address] [place] [address] [place] [phone] PCP - General Family Medicine 04/25/20 03/17/23 Ronel Thornton DO [address] [place] [phone] PCP - General Family Medicine 03/18/23 Daphnie Gillespie MD [address] [place] [phone] PCP - Attributed-[facility] 02/11/23 04/11/23 Ronel Thornton DO [address] [place] [id number] PCP - Attributed-[facility] 04/12/23 Juliana Peralta MSW Outpatient Product Lister Care Management 04/24/2304/11 Juliana Peralta MSW Outpatient Product Lister Care Management 04/30/2304/12 Kenyatta Taylor RN [phone] [address] Dec[employer]Furniture Upholstery Mechanic 09/02/23 10/04/23 Tiago Lew Care Coordination Specialist Care Management 09/26/23 11/10/23 documented as of this encounter
--- NOTE | 2024-09-26 04:44 | ECG_ITS ---
Test Date: 2024-09-26 05:01:23 Measurements Intervals [place] Rate: 106 P: 58 SD: 131 QRS: 71 QRSD: 86 T: 56 QT: 327 QTc: 435 Interpretive Statements SINUS TACHYCARDIA BASELINE ARTIFACT- I, II, III, AVR, AVL, AVF, V1-V2 ABNORMAL ECG Compared to ECG 09/23/2024 07:20:56 HEART RATE HAS INCREASED Electronically Signed On 09-26-2024 07:23:24 CDT by Bertram Yousif D.O.
[2024-09-26] MEDS: MORPHINE SULFATE (*CRX) 2 MG/ML INJ IV PUSH (05:19)
--- NOTE | 2024-09-26 05:20 | P.HP_ITS ---
H&P: HPI History of Present Illness Date/Time: 09/26/24 05:20 Chief Complaint: Abdominal pain with nausea/vomiting/diarrhea Narrative: This 24-year-old female patient with past medical history of drug abuse, eating disorder, anxiety, depression, marijuana abuse, cyclical vomiting and he was most recently hospitalized here from September [address] evidenced enteritis and was discharged yesterday returned to the emergency room tonight with complaints of having worsening of her symptoms when she returns home. Patient was discharged home with prescription for Augmentin that she states she has not been able to take due to the acute onset again nausea and vomiting. Patient states she was able to use her marijuana upon return home after discharge. Patient states her pain is in the upper region of the abdomen. She has that been able to identify anything that makes it worse or better. In the emergency room workup was performed that shows stable vital signs, white blood cell count of 10.0 and otherwise normal CBC as well as unremarkable metabolic panel. Lactic acid however was 4.3 and after IV hydration decreased to 2.2. Due to the young age of the patient and no leukocytosis CT scan in the ER was deferred at this time. She was medicated with droperidol, Pepcid and was given famotidine in ER but states she still has a lot of pain and also she cannot keep anything down. Patient denies any fevers upon return home and she denies any additional drug use other than marijuana. Review of Systems Review of Systems: All systems reviewed & are unremarkable except as noted in HPI and below PMFSH Past Medical History Medical History (Updated 09/26/24 @ 05:26 by RIK Colindres) Intractable nausea and vomiting Drug withdrawal seizure History of eating disorder Anxiety Depression Family History Family History Grandparent History of alcoholism Depression Mother History of alcoholism Hypertension Depression Social History Social History Smoking status: Never smoker Alcohol intake: never Substance use: current Substance use type: marijuana Last use: 07/18/2024 Do You Feel Safe in your Home?: Yes Lack of Transportation: YES Lack of Food: Never True Current Housing: I Have Housing Concerned About Future Housing: No Difficulty Paying Gas/Electric Bills: No Difficulty Paying for Meds: No Currently Unemployed: No Education: High School Diploma/GED Difficulty w/ Childcare or Family Care: No Living arrangements: with roommate(s) Occupation/Education: unemployed Additional occupation/education comments: not currently working or in school Gender identity (if verbalized by the patient): Female Spiritual care concerns: No Meds Home Medications and Allergies Home Medications ?Medication ?Instructions ?Recorded ?Confirmed ?Type escitalopram oxalate 10 mg tablet 10 mg PO DAILY 07/18/24 09/26/24 History olanzapine 2.5 mg tablet 5 mg PO DAILY 09/23/24 09/26/24 History amoxicillin 875 mg-potassium 1 tablet PO Q12H #5 tabs 09/25/24 09/26/24 Rx clavulanate 125 mg tablet hydrocodone 5 mg-acetaminophen 325 1 tablet PO Q4H PRN Pain Rated 4-6 09/25/24 09/26/24 Rx mg tablet #12 tabs ondansetron 4 mg disintegrating 4 mg PO Q8H PRN nausea and 09/25/24 09/26/24 Rx tablet vomiting #7 tabs Allergies Allergy/AdvReac Type Severity Reaction Status Date / Time No Known Allergies Allergy Verified 09/26/24 02:42 Vital Signs Vital Signs - 24 hr 09/26/24 02:39 Temperature 97.6 F Pulse Rate 118 H Respiratory Rate 28 H Blood Pressure 154/121 H Pulse Oximetry 98 Oxygen Delivery Room Air Exam Const: General: no acute distress and uncomfortable Other: Ill-appearing and then young female patient sitting on stretcher at this in no acute distress. HENMT: Face/Nose/Sinus: Normal nares present Mouth: Yes dry mucous membranes Eyes: General: appearance normal, both eyes and all related structures Neck: Neck: supple and no JVD Lymphatic: lymphadenopathy not noted Resp: Effort & Inspection: normal respiratory effort Auscultation: clear to auscultation bilaterally Cardio: Rate: tachycardic Rhythm: regular rhythm Heart sounds: no gallops, no murmurs and no rubs GI: Inspection: non-distended GI Palp: Yes Soft to palpation and Yes Tenderness to palpation present (GI) (Left upper quadrant, epigastric and right upper quadrant) Skin: General skin exam: No normal color (Generalized pallor), no rashes or lesions noted and no erythema Wounds: no wounds Neuro: General: gait normal Speech: normal speech Motor exam (neuro): 5/5 motor strength present throughout and Normal motor muscle tone present throughout Sensory Exam: normal sensation Extrem: General: normal to inspection, no edema and no pedal edema Psych: Mental Status: mental status grossly abnormal Affect: Anxious affect present H&P: Results Labs Labs: Short CBC 09/26/24 Range/Units 03:01 WBC 10.0 (4.5-10.0) K/mm3 Hgb 11.8 L (12.0-15.0) g/dL Hct 34.4 L (37.0-47.0) % Plt Count 314 (150-375) k/mm3 BMP 09/26/24 03:01 Sodium 140 Potassium 3.4 Chloride 108 H Carbon Dioxide 17 L BUN 6 L Creatinine 0.86 Glucose 106 Calcium 9.0 Liver Function 09/26/24 Range/Units 03:01 Total Bilirubin 0.3 (0.2-1.3) mg/dL AST 52 H (14-36) U/L ALT 24 (6-35) U/L Alkaline Phosphatase 65 (38-126) U/L Albumin 4.1 (3.5-5.1) g/dL Assessment and Plan Assessment and plan (1) Intractable nausea and vomiting: Code(s): R11.2 - Nausea with vomiting, unspecified Status: Acute Assessment and Plan: * Patient recently hospitalized for enteritis as evidence by CT scan. * Discharged home yesterday to continue Augmentin p.o., however patient unable to tolerate any oral intake or medications, prompting her return to the emergency room. * Patient receiving IV fluids of LR at 100 mL/hour. * As she cannot tolerate oral intake at this time will provide IV antibiotics of Zosyn 3.375 g q.6 hours * Transition to p.o. as soon as possible * NPO except ice chips * P.r.n. Zofran 4 mg q.4 hours p.r.n. for nausea * Scheduled Reglan 10 mg IV push q.8 hours * Monitor and trend labs and vital signs (2) Cyclical vomiting: Code(s): R11.15 - Cyclical vomiting syndrome unrelated to migraine Status: Acute Assessment and Plan: * Despite counseling for cessation of marijuana use, patient continue to use once discharged home yesterday. * Suspect patient's intractable nausea and vomiting has a component of cyclical vomiting. * Droperidol given in the ER with improvement. * Scheduled Reglan 10 mg q.8 hours. * P.r.n. Zofran 4 mg IV push q.4 hours. * Consider GI consult (3) Marijuana abuse: Code(s): F12.10 - Cannabis abuse, uncomplicated Status: Acute Assessment and Plan: * See 2. (4) Lactic acidosis: Code(s): E87.20 - Acidosis, unspecified Status: Acute Assessment and Plan: * 4.3 on arrival to ER and has trended downward to 2.2 after receiving IV fluids. Suspect degree of dehydration given intractable nausea and vomiting * Continue IV hydration * Monitor and trend labs and vital signs (5) Dehydration: Code(s): E86.0 - Dehydration Status: Acute Assessment and Plan: * See 4. (6) Enteritis: Code(s): K52.9 - Noninfective gastroenteritis and colitis, unspecified Status: Acute Assessment and Plan: * See 1. * Low threshold for repeating advanced imaging with CT scan if symptoms persist. Quality If No VTE Prophylaxis Answer both mechanical and pharmacologic: Reason no mechanical VTE proph: low risk/not indicated Reason no pharmacologic proph: low risk/not indicated Hospitalist MIPS Advance Care Plan I have confirmed that the patient's Advanced Care Plan is present, code status is documented, or surrogate decision maker is listed in patient medical record.: Yes Medication Reconciliation I have utilized all available resources to obtain, update and review the patients current medications (includes all prescriptions, OTC, herbals, cannabis, and nutritional supplements).: Yes
[2024-09-26] MEDS: METOCLOPRAMIDE HCL INJ 10 MG/2 ML VIAL IV PUSH ×3 (06:24→21:10)
[2024-09-26] MEDS: PIPERACILLIN/TAZOBACTAM SOD 3.375 GM in SODIUM CHLORIDE 0.9% IV 50 ML 100 ML IVPB ×3 (06:24→17:16)
[2024-09-26] MEDS: LACTATED RINGERS 1,000 ML 100 ML IV CONT (07:16)
--- OUTSIDE RECORDS SUMMARY | 2024-09-26 07:35 | XMS_ITS | Clinical Summary ---
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 Gender Identity Not on file Sexual [...] 52.2 kg (115 lb) 04/20/2023 2:30 AM COIL MACHINE SUPERVISOR Height 152.4 cm (5') 04/20/2023 2:30 AM COIL MACHINE SUPERVISOR Body Mass Index 22.46 04/20/2023 2:30 AM COIL MACHINE SUPERVISOR Plan of Treatment Health Maintenance Due Date [...] history exists [place] [address] [facility] [id number] OUT OF NETWORK Advance Directives For more information, please contact: [phone] * Full Code (Latest Code Status on File) Date Activated Date Inactivated Comments 04/20/2023 2:32 AM 04/21/2023 4:11 PM Care Teams Mold Filler And Drainer Relationship Specialty Start Date End Date Mellissa Jiménez MD [address] [place] [phone] PCP - General Family Practice 04/20/23
--- OUTSIDE RECORDS SUMMARY | 2024-09-26 07:35 | XMS_ITS | Clinical Summary ---
Author Organization [facility] [employer] Address [address] [place] [address] Care Team Providers Care Basting Marker Name Role Phone Ronel Thornton DO Primary Care Provider [phone] Ronel Thornton DO Unavailable [phone] Source Comments [facility] [employer] [employer],non-owned Affiliates and Associated Physician Practices is amultiple site organization consisting of ambulatory clinics and hospital sitesin [place], [place], [place] and [place]. This disclosure is being madepursuant to the Care Everywhere program and may not contain all information available regarding this patient. Last updated 17.[facility] [employer] [employer] Allergies No known active allergies Medications * [...] Assessment & Plan (01/08/2021 3:06 PM MACHINE [employer]): Assessment: Major depressive disorder, generalized anxiety disorder and substance abuse disorder. Plan: - klonopin and neurontin are all habit forming, concerns they are addictive, plan to discuss manager long term care goal of weaning as outpatient - must stop all alcohol and MJ - Increased Prozac to 40 - Increased zyprexa to 15 - Melatonin 6mg QHS for sleep - avoid narcotics - taper off zyprexa as outpatient per psychiatry recs Assessment & Plan (01/07/2021 4:50 PM MACHINE [employer]): Assessment: Major depressive disorder, generalized anxiety disorder and substance abuse disorder. Plan: - klonopin and neurontin are all habit forming, concerns they are addictive, plan to discuss skilled nursing goal of weaning as outpatient - must stop all alcohol and MJ - Increased Prozac to 40 - Increased zyprexa to 15 - Melatonin 6mg QHS for sleep - avoid narcotics - taper off zyprexa as outpatient per psychiatry recs Assessment & Plan (01/06/2021 5:55 PM MACHINE [employer]): Assessment: Major depressive disorder, generalized anxiety disorder and substance abuse disorder. Plan: - klonopin and neurontin are all habit forming, concerns they are addictive, plan to discuss skilled nursing goal of weaning as outpatient - must [...] Assessment & Plan (04/07/2020 6:45 PM MACHINE [employer]ER [employer]): Assessment: Hx of major depressive disorder and generalized anxiety disorder. Pt has been seen by psychiatry and psychology, now improved since starting/optimizing zyprexa QHS, clonazepam TID, and prozac QD. Plan: - Prozac 30 mg QD (dose of 30 mg started on 03/09/20, Prozac initially began 02/07) - Zyprexa 5 mg QHS - Klonopin 0.5mg TID Assessment & Plan (04/06/2020 3:54 PM MACHINE [employer]): Assessment: Hx of major depressive disorder and [...] Assessment & Plan (04/05/2020 10:49 AM MACHINE [employer]): Assessment: Hx of major depressive disorder and [...] Assessment & Plan (04/04/2020 10:23 AM MACHINE [employer]): Assessment: Hx of major depressive disorder and [...] Assessment & Plan (04/03/2020 6:30 PM MACHINE [employer]): Assessment: Hx of major depressive disorder and [...] Assessment & Plan (04/01/2020 11:15 AM MACHINE [employer]): Assessment: Hx of major depressive disorder and [...] Assessment & Plan (03/31/2020 10:07 AM MACHINE [employer]): Assessment: Hx of major depressive disorder and [...] Assessment & Plan (03/30/2020 2:24 PM MACHINE [employer]): Assessment: Hx of major depressive disorder and [...] Assessment & Plan (03/29/2020 6:50 AM MACHINE [employer]): Assessment: Hx of major depressive disorder and [...] Assessment & Plan (03/27/2020 10:30 AM MACHINE [employer]ER [employer]): Assessment: Hx of major depressive disorder and generalized anxiety disorder. Pt seen by psychiatry on admission and was started elavil, but continued to have anxiety. Elavil was discontinued due to persistent tachycardia and hypotension. [facility], she was started on [...] Assessment & Plan (03/26/2020 11:15 AM MACHINE [employer]): Assessment: Hx of major depressive disorder and [...] Assessment & Plan (03/25/2020 8:58 AM MACHINE [employer]): Assessment: Hx of major depressive disorder and [...] Assessment & Plan (03/24/2020 6:44 AM MACHINE [employer]): Assessment: Hx of major depressive disorder and [...] Assessment & Plan (03/23/2020 12:19 PM MACHINE [employer]): Assessment: Hx of major depressive disorder and [...] Assessment & Plan (03/22/2020 10:47 AM MACHINE [employer]): Assessment: Hx of major depressive disorder and [...] Assessment & Plan (03/21/2020 3:11 PM MACHINE [employer]): Assessment: Hx of major depressive disorder and [...] Assessment & Plan (03/20/2020 10:31 AM MACHINE [employer]): Assessment: Hx of major depressive disorder and generalized anxiety disorder. Pt seen by psychiatry on admission and was started elavil, but continued to have anxiety. Elavil was discontinued due to persistent tachycardia and hypotension. [facility], she was started on zyprexa [...] Assessment & Plan (03/19/2020 10:38 AM MACHINE [employer]): Assessment: Hx of major depressive disorder and [...] Assessment & Plan (03/18/2020 12:58 PM MACHINE [employer]): Assessment: Hx of major depressive disorder and [...] Assessment & Plan (03/17/2020 10:33 AM MACHINE [employer]): Assessment: Hx of major depressive disorder and [...] Assessment & Plan (03/16/2020 2:24 PM MACHINE [employer]): Assessment: Hx of major depressive disorder and [...] Assessment & Plan (03/15/2020 11:11 AM MACHINE [employer]): Assessment: Hx of major depressive disorder and [...] Assessment & Plan (03/14/2020 6:28 AM MACHINE [employer]): Assessment: Hx of major depressive disorder and [...] Assessment & Plan (03/13/2020 6:28 AM MACHINE [employer]): Assessment: Hx of major depressive disorder and [...] Assessment & Plan (03/12/2020 11:35 AM MACHINE [employer]): Assessment: Hx of major depressive disorder and [...] Assessment & Plan (03/11/2020 12:43 PM MACHINE [employer]): Assessment: Hx of major depressive disorder and [...] Assessment & Plan (03/10/2020 6:11 AM MACHINE [employer]): Assessment: Hx of major depressive disorder and [...] Assessment & Plan (03/09/2020 6:24 AM MACHINE [employer]): Assessment: Hx of major depressive disorder and [...] Assessment & Plan (03/08/2020 10:51 AM MACHINE [employer]): Assessment: Hx of major depressive disorder and [...] Assessment & Plan (03/07/2020 9:15 AM MACHINE [employer]): Assessment: Hx of major depressive disorder and [...] -Develop daily schedule with assistance of children's ministries director-Alma Assessment & Plan (03/06/2020 10:09 AM MACHINE [employer]): Assessment: Hx of major depressive disorder and [...] Assessment & Plan (03/05/2020 9:56 AM MACHINE [employer]): Assessment: Hx of major depressive disorder and [...] Assessment & Plan (03/04/2020 12:58 PM MACHINE [employer]): Assessment: Hx of major depressive disorder and [...] Assessment & Plan (03/03/2020 3:16 PM MACHINE [employer]): Assessment: Hx of major depressive disorder and [...] Assessment & Plan (03/01/2020 12:04 PM MACHINE [employer]): Assessment: Hx of major depressive disorder and [...] Assessment & Plan (02/29/2020 12:53 PM MACHINE [employer]): Assessment: Hx of major depressive disorder and [...] Assessment & Plan (02/28/2020 9:22 AM MACHINE [employer]): Assessment: Hx of major depressive disorder and [...] Assessment & Plan (02/27/2020 10:27 AM MACHINE [employer]): Assessment: Hx of major depressive disorder and [...] Assessment & Plan (02/26/2020 11:12 AM MACHINE [employer]): Assessment: Hx of major depressive disorder and [...] Assessment & Plan (02/25/2020 9:33 AM MACHINE [employer]): Assessment: Hx of major depressive disorder and [...] Assessment & Plan (02/24/2020 6:51 AM MACHINE [employer]): Assessment: Hx of major depressive disorder and [...] Assessment & Plan (02/23/2020 10:19 AM MACHINE [employer]): Assessment: Hx of major depressive disorder and [...] Assessment & Plan (02/22/2020 11:07 AM MACHINE [employer]): Assessment: Hx of major depressive disorder and [...] Assessment & Plan (02/21/2020 10:54 AM MACHINE [employer]): Assessment: History of major depressive disorder and [...] Assessment & Plan (02/20/2020 11:33 AM MACHINE [employer]): Assessment: History of major depressive disorder and [...] Assessment & Plan (02/19/2020 3:05 PM MACHINE [employer]): Assessment: History of major depressive disorder and [...] Assessment & Plan (02/18/2020 10:13 AM MACHINE [employer]): Assessment: History of major depressive disorder and [...] Assessment & Plan (02/17/2020 12:26 PM MACHINE [employer]): Assessment: History of major depressive disorder and [...] Assessment & Plan (02/16/2020 1:14 PM MACHINE [employer]): Assessment: History of major depressive disorder and [...] Assessment & Plan (02/15/2020 12:31 PM MACHINE [employer]): Assessment: History of major depressive disorder and [...] Assessment & Plan (02/14/2020 2:24 PM MACHINE [employer]): Assessment: History of major depressive disorder and [...] Assessment & Plan (02/13/2020 12:00 PM MACHINE [employer]): Assessment: History of major depressive disorder and [...] Assessment & Plan (02/12/2020 11:20 AM MACHINE [employer]): Assessment: History of major depressive disorder and [...] Assessment & Plan (02/11/2020 11:54 AM MACHINE [employer]): Assessment: History of major depressive disorder and [...] Assessment & Plan (02/10/2020 12:09 PM MACHINE [employer]): Assessment: History of major depressive disorder and [...] Assessment & Plan (02/09/2020 11:50 AM MACHINE [employer]): Assessment: History of major depressive disorder and [...] Assessment & Plan (02/08/2020 12:54 PM MACHINE [employer]): Assessment: History of major depressive disorder and [...] Assessment & Plan (02/07/2020 11:47 AM MACHINE [employer]): Assessment: History of major depressive disorder and [...] Assessment & Plan (02/06/2020 8:12 AM MACHINE [employer]): Assessment: History of major depressive disorder and [...] Assessment & Plan (02/05/2020 9:12 AM MACHINE [employer]): Assessment: History of major depressive disorder and [...] Assessment & Plan (02/04/2020 12:43 PM MACHINE [employer]): Assessment: History of major depressive disorder and [...] Assessment & Plan (02/03/2020 2:28 PM MACHINE [employer]): Assessment: History of major depressive disorder and [...] Assessment & Plan (02/02/2020 4:02 PM MACHINE [employer]): Assessment: History of major depressive disorder and [...] Assessment & Plan (02/01/2020 12:12 PM MACHINE [employer]): Assessment: History of major depressive disorder and [...] Assessment & Plan (01/31/2020 1:04 PM MACHINE [employer]): Assessment: History of major depressive disorder and [...] Assessment & Plan (01/30/2020 10:30 AM MACHINE [employer]): Assessment: History of major depressive disorder and [...] Assessment & Plan (01/29/2020 9:40 PM MACHINE [employer]): Assessment: History of major depressive disorder and [...] Assessment & Plan (01/28/2020 11:59 AM MACHINE [employer]): Assessment: History of major depressive disorder and [...] Assessment & Plan (01/27/2020 3:57 PM MACHINE [employer]): Assessment: History of major depressive disorder and [...] Assessment & Plan (01/26/2020 6:01 PM MACHINE [employer]): Assessment: History of major depressive disorder and [...] Assessment & Plan (01/25/2020 2:56 PM MACHINE [employer]): Assessment: History of major depressive disorder and [...] Assessment & Plan (01/24/2020 8:11 AM MACHINE [employer]): Assessment: History of major depressive disorder and [...] Assessment & Plan (01/23/2020 7:09 AM MACHINE [employer]): Assessment: History of major depressive disorder and [...] Assessment & Plan (01/22/2020 7:52 AM MACHINE [employer]): Assessment: History of major depressive disorder and [...] Assessment & Plan (01/21/2020 7:40 AM MACHINE [employer]): Assessment: History of major depressive disorder and [...] Assessment & Plan (01/20/2020 7:36 AM MACHINE [employer]): Assessment: History of major depressive disorder and [...] Assessment & Plan (01/19/2020 7:22 AM MACHINE [employer]): Assessment: History of major depressive disorder and [...] Assessment & Plan (01/18/2020 4:35 PM MACHINE [employer]): Assessment: History of major depressive disorder and [...] Assessment & Plan (04/08/2020 1:31 PM MACHINE [employer]STER): Assessment: Malnutrition is secondary to ARFID, SMA [...] Assessment & Plan (04/07/2020 2:52 PM MACHINE [employer]): Assessment: Malnutrition is secondary to ARFID, SMA [...] Assessment & Plan (04/07/2020 6:44 PM MACHINE [employer]): Assessment: Marlee is a 19 year old [...] follow up with adolescent medicine on 04/18, [facility] on 05/02, and and scheduling Psych intake visit SOCIAL: - General medicine team spoke with and updated mother on 04/06 LABS: daily urine spec gravity, BMP/Mg/Phos Q / Assessment & Plan (04/06/2020 6:45 PM MACHINE [employer]): Assessment: Marlee is a 19 year old [...] Assessment & Plan (04/05/2020 3:22 PM MACHINE [employer]ER [employer]): Assessment: Malnutrition is secondary to ARFID, SMA [...] Assessment & Plan (04/05/2020 10:49 AM MACHINE [employer]ER [employer]STER): Assessment: Marlee is a 19 year old [...] T/ Assessment & Plan (04/04/2020 3:59 PM MACHINE [employer]ER [employer]STER): Assessment: Malnutrition is secondary to ARFID, SMA [...] Assessment & Plan (04/04/2020 10:21 AM MACHINE [employer]ER [employer]): Assessment: Marlee is a 19 year old [...] Assessment & Plan (04/03/2020 12:59 PM MACHINE P[employer] LASTER): Assessment: Marlee is a 19 year old [...] Assessment & Plan (04/02/2020 4:19 PM MACHINE [employer]ER [employer]STER): Assessment: Marlee is a 19 year old [...] Assessment & Plan (04/01/2020 11:55 AM MACHINE [employer]): Assessment: Malnutrition is secondary to ARFID and [...] Assessment & Plan (04/01/2020 11:15 AM MACHINE [employer]): Assessment: Marlee is a 19 year old [...] Assessment & Plan (03/31/2020 12:05 PM MACHINE [employer]): Assessment: Malnutrition is secondary to ARFID and [...] Assessment & Plan (03/31/2020 10:06 AM MACHINE [employer]): Assessment: Marlee is a 19 year old [...] Assessment & Plan (03/30/2020 2:24 PM MACHINE [employer]): Assessment: Marlee is a 19 year old [...] Assessment & Plan (03/29/2020 10:40 AM MACHINE [employer]): Assessment: Marlee is a 19 year old [...] allowed in room. May have water from [employer] cup. Oral fluids limited to 250 mL [...] Assessment & Plan (03/28/2020 12:29 PM MACHINE [employer]ER [employer] LASTER): Assessment: Marlee is a 19 year old [...] Assessment & Plan (03/27/2020 10:34 AM MACHINE [employer]): Assessment: Marlee is a 19 year old [...] night 03/27: Increase to 50 mL/hr tonight. [facility] is aware of increase but [...] Assessment & Plan (03/26/2020 11:20 AM MACHINE [employer]ER [employer]STER): Assessment: Marlee is a 19 year old [...] Assessment & Plan (03/25/2020 12:30 PM MACHINE [employer]): Assessment: Marlee is a 19 year old [...] Assessment & Plan (03/24/2020 5:02 PM MACHINE [employer] LA[employer]): Assessment: Malnutrition is secondary to ARFID and [...] Assessment & Plan (03/24/2020 11:19 AM MACHINE [employer]ER [employer] LASTER): Assessment: Marlee is a 19 year old [...] allowed in room. May have water from [employer] cup. - May take shower while sitting [...] Assessment & Plan (03/23/2020 12:20 PM MACHINE P[employer]ER [employer] LASTER): Assessment: Marlee is a 19 year old [...] Assessment & Plan (03/22/2020 12:20 PM MACHINE [employer]): Assessment: Marlee is a 19 year old [...] Assessment & Plan (03/21/2020 3:10 PM MACHINE [employer]STER): Assessment: Marlee is a 19 year old [...] Assessment & Plan (03/20/2020 10:32 AM MACHINE [employer]): Assessment: Marlee is a 19 year old [...] Assessment & Plan (03/19/2020 10:37 AM MACHINE P[employer]ER [employer] LASTER): Assessment: Marlee is a 19 year old [...] Assessment & Plan (03/18/2020 1:00 PM MACHINE [employer]): Assessment: Marlee is a 19 year old [...] Assessment & Plan (03/17/2020 10:36 AM MACHINE [employer]): Assessment: Marlee is a 19 year old [...] Assessment & Plan (03/16/2020 2:10 PM MACHINE [employer]): Assessment: Marlee is a 19 year old [...] Assessment & Plan (03/15/2020 11:10 AM MACHINE [employer]): Assessment: Marlee is a 19 year old [...] Assessment & Plan (03/14/2020 9:53 AM MACHINE [employer]): Assessment: Marlee is a 19 year old [...] Assessment & Plan (03/13/2020 9:39 AM MACHINE [employer]STER): Assessment: Marlee is a 19 year old [...] Assessment & Plan (03/12/2020 11:35 AM MACHINE P[employer]ER [employer] LASTER): Assessment: Marlee is a 19 year old [...] Assessment & Plan (03/11/2020 12:43 PM MACHINE [employer] LASTER): Assessment: Marlee is a 19 year old [...] Assessment & Plan (03/10/2020 9:12 AM MACHINE P[employer]STER): Assessment: Marlee is a 19 year old [...] Assessment & Plan (03/09/2020 10:22 AM MACHINE P[employer]ER [employer]STER): Assessment: Marlee is a 19 year old [...] Assessment & Plan (03/08/2020 10:52 AM MACHINE P[employer]ER [employer]STER): Assessment: Marlee is a 19 year old [...] Assessment & Plan (03/07/2020 9:18 AM MACHINE P[employer]ER [employer] LASTER): Assessment: Marlee is a 19 year old [...] Assessment & Plan (03/06/2020 10:09 AM MACHINE [employer]STER): Assessment: Marlee is a 19 year old [...] Assessment & Plan (03/05/2020 9:56 AM MACHINE P[employer]ER [employer] LASTER): Assessment: Marlee is a 19 year old [...] Assessment & Plan (03/04/2020 12:58 PM MACHINE P[employer]): Assessment: Marlee is a 19 year old [...] Assessment & Plan (03/03/2020 3:15 PM MACHINE P[employer]ER [employer]STER): Assessment: Marlee is a 19 year old [...] Assessment & Plan (03/02/2020 12:06 PM MACHINE P[employer]ER [employer] LASTER): Assessment: Marlee is a 19 year old [...] Assessment & Plan (03/01/2020 12:05 PM MACHINE PULLER AND LASTER): Assessment: Marlee is a 19 year old [...] Assessment & Plan (02/29/2020 12:52 PM MACHINE P[employer]ER [employer] LASTER): Assessment: Marlee is a 19 year old [...] Assessment & Plan (02/28/2020 9:12 AM MACHINE P[employer]ER [employer]STER): Assessment: Marlee is a 19 year old [...] Assessment & Plan (02/27/2020 10:03 AM MACHINE P[employer]ER [employer] LASTER): Assessment: Marlee is a 19 year old [...] Assessment & Plan (02/26/2020 11:12 AM MACHINE PULLER AND LASTER): Assessment: Marlee is a 19 year old [...] Assessment & Plan (02/25/2020 9:32 AM MACHINE PULLER [employer] LASTER): Assessment: Marlee is a 19 year old [...] Assessment & Plan (02/24/2020 10:42 AM MACHINE PULLER AND LASTER): Assessment: Marlee is a 19 year old [...] Assessment & Plan (02/23/2020 10:22 AM MACHINE PULLER AND LASTER): Assessment: Marlee is a 19 year old [...] Assessment & Plan (02/22/2020 11:25 AM MACHINE PULLER AND LASTER): Assessment: Marlee is a 19 year old [...] Assessment & Plan (02/21/2020 10:54 AM MACHINE PULLER AND LASTER): Assessment: Marlee is a 19 year old [...] Assessment & Plan (02/20/2020 11:31 AM MACHINE P[employer]ER [employer] LASTER): Assessment: Marlee is a 19 year old [...] Assessment & Plan (02/19/2020 3:04 PM MACHINE PULLER [employer] LASTER): Assessment: Marlee is a 19 year old [...] Assessment & Plan (02/18/2020 10:14 AM MACHINE P[employer]ER [employer] LASTER): Assessment: Marlee is a 19 year old [...] Assessment & Plan (02/17/2020 12:30 PM MACHINE P[employer]ER [employer]STER): Assessment: Marlee is a 19 year old [...] Assessment & Plan (02/16/2020 2:29 PM MACHINE P[employer]ER [employer] LASTER): Assessment: Marlee is a 19 year old [...] Assessment & Plan (02/15/2020 12:33 PM MACHINE P[employer]ER [employer] LASTER): Assessment: Marlee is a 19 year old [...] Assessment & Plan (02/14/2020 2:23 PM MACHINE P[employer]ER [employer] LASTER): Assessment: Marlee is a 19 year old [...] Assessment & Plan (02/13/2020 11:59 AM MACHINE PULLER [employer] LASTER): Assessment: Marlee is a 19 year old [...] Assessment & Plan (02/12/2020 11:49 AM MACHINE P[employer]ER [employer]STER): Assessment: Marlee is a 19 year old [...] Assessment & Plan (02/11/2020 11:56 AM MACHINE P[employer]ER AND LASTER): Assessment: Marlee is a 19 year old [...] Assessment & Plan (02/10/2020 12:11 PM MACHINE P[employer]ER [employer] LASTER): Assessment: Marlee is a 19 year old [...] Assessment & Plan (02/09/2020 11:49 AM MACHINE PULLER [employer]STER): Assessment: Marlee is a 19 year old [...] Assessment & Plan (02/08/2020 12:54 PM MACHINE PULLER [employer] LASTER): Assessment: Marlee is a 19 year old [...] Assessment & Plan (02/07/2020 12:06 PM MACHINE PULLER AND LASTER): Assessment: Marlee is a 19 year old [...] Assessment & Plan (02/06/2020 8:12 AM MACHINE PULLER AND LASTER): Assessment: Marlee is a 19 year old [...] Assessment & Plan (02/05/2020 9:12 AM MACHINE PULLER AND LASTER): Assessment: Marlee is a 19 year old [...] Assessment & Plan (02/04/2020 12:52 PM MACHINE P[employer]ER [employer] LASTER): Assessment: Marlee is a 19 year old [...] Assessment & Plan (02/03/2020 2:38 PM MACHINE PULLER AND LASTER): Assessment: Marlee is a 19 year old [...] Assessment & Plan (02/02/2020 4:02 PM MACHINE PULLER [employer] LASTER): Assessment: Marlee is a 19 year old [...] Assessment & Plan (02/01/2020 12:08 PM MACHINE PULLER AND LASTER): Assessment: Marlee is a 19 year old [...] Assessment & Plan (01/31/2020 1:05 PM MACHINE PULLER AND LASTER): Assessment: Marlee is a 19 year old [...] Assessment & Plan (01/30/2020 10:30 AM MACHINE PULLER [employer] LASTER): Assessment: Marlee is a 19 year old [...] Assessment & Plan (01/29/2020 9:39 PM MACHINE PULLER [employer] LASTER): Assessment: Marlee is a 19 year old [...] Assessment & Plan (01/28/2020 11:59 AM MACHINE PULLER [employer] LASTER): Assessment: Marlee is a 19 year old [...] Assessment & Plan (01/27/2020 3:59 PM MACHINE PULLER [employer] LASTER): Assessment: Marlee is a 19 year old [...] Assessment & Plan (01/26/2020 5:14 PM MACHINE P[employer]ER AND LASTER): Assessment: Marlee is a 19 year old [...] Assessment & Plan (01/25/2020 2:58 PM MACHINE P[employer]ER [employer] LASTER): Assessment: Marlee is a 19 year old [...] Assessment & Plan (01/24/2020 11:54 AM MACHINE PULLER [employer] LASTER): Assessment: Marlee is a 19 year old [...] Assessment & Plan (01/23/2020 7:09 AM MACHINE PULLER AND LASTER): Assessment: Marlee is a 19 year old [...] Assessment & Plan (01/22/2020 4:25 PM MACHINE PULLER [employer] LASTER): Assessment: Marlee is a 19 year old [...] Assessment & Plan (01/21/2020 8:15 AM MACHINE PULLER AND LASTER): Assessment: Marlee Chavez is a 19 year [...] Assessment & Plan (01/20/2020 7:36 AM MACHINE PULLER AND LASTER): Assessment: Marlee Chavez is a 19 year [...] Assessment & Plan (01/19/2020 7:20 AM MACHINE PULLER AND LASTER): Assessment: Marlee Chavez is a 19 year [...] Assessment & Plan (01/18/2020 4:30 PM MACHINE PULLER [employer] LASTER): Assessment: Marlee Chavez is a 19 year [...] Assessment & Plan (03/27/2020 10:35 AM MACHINE [employer]ER [employer] LASTER): Assessment: Marlee is admitted on ED Protocol for severe malnutrition. Following feeding plan per Adolescent Medicine and Nutrition. Plan: - see plan under ARFID problem Assessment & Plan (03/26/2020 11:20 AM MACHINE PULLER [employer] LASTER): Assessment: Marlee is admitted on ED Protocol for severe malnutrition. Following feeding plan per Adolescent Medicine and Nutrition. Plan: - see plan under ARFID problem Assessment & Plan (03/24/2020 11:19 AM MACHINE P[employer]ER [employer] LASTER): Assessment: Marlee is admitted on ED Protocol for severe malnutrition. Following feeding plan per Adolescent Medicine and Nutrition. Plan: - see plan under ARFID problem Assessment & Plan (03/23/2020 9:00 AM MACHINE P[employer]ER [employer] LASTER): Assessment: Marlee is admitted on ED Protocol for severe malnutrition. Following feeding plan per Adolescent Medicine and Nutrition. Plan: - see plan under ARFID problem Assessment & Plan (03/22/2020 12:21 PM MACHINE P[employer]ER AND LASTER): Assessment: Marlee is admitted on ED Protocol for severe malnutrition. Following feeding plan per Adolescent Medicine and Nutrition. Plan: - see plan under ARFID problem Assessment & Plan (03/17/2020 4:26 PM MACHINE PULLER AND LASTER): Assessment: Malnutrition is secondary to ARFID and [...] Assessment & Plan (03/15/2020 11:10 AM MACHINE PULLER AND LASTER): Assessment: Marlee is admitted on ED Protocol for severe malnutrition. Following feeding plan per Adolescent Medicine and Nutrition. Plan: - see plan under ARFID problem Assessment & Plan (03/10/2020 11:17 AM MACHINE PULLER AND LASTER): Assessment: Malnutrition is secondary to ARFID and [...] Assessment & Plan (03/06/2020 10:09 AM MACHINE PULLER AND LASTER): Assessment: Marlee is admitted on ED Protocol for severe malnutrition. Following feeding plan per Adolescent Medicine and Nutrition. Plan: - see plan under ARFID problem Assessment & Plan (03/04/2020 1:41 PM MACHINE PULLER AND LASTER): Assessment: Marlee is admitted on ED Protocol for severe malnutrition. Following feeding plan per Adolescent Medicine and Nutrition. Plan: - see plan under ARFID problem Assessment & Plan (03/04/2020 11:50 AM MACHINE PULLER AND LASTER): Assessment: Marlee is admitted on ED Protocol for severe malnutrition. Following feeding plan per Adolescent Medicine and Nutrition. Plan: - see plan under ARFID problem Assessment & Plan (03/03/2020 3:53 PM MACHINE PULLER AND LASTER): Assessment: Malnutrition is secondary to ARFID and [...] Assessment & Plan (02/27/2020 9:57 AM MACHINE PULLER AND LASTER): Assessment: Marlee is admitted on ED Protocol for severe malnutrition. Following feeding plan per Adolescent Medicine and Nutrition. Plan: - see plan under ARFID problem Assessment & Plan (02/26/2020 9:59 AM MACHINE PULLER AND LASTER): Assessment: Malnutrition is secondary to ARFID and [...] Assessment & Plan (02/25/2020 5:48 PM MACHINE PULLER AND LASTER): Assessment: Malnutrition is secondary to ARFID and [...] Assessment & Plan (02/18/2020 4:54 PM MACHINE PULLER AND LASTER): Assessment: Malnutrition is secondary to ARFID and [...] Assessment & Plan (02/11/2020 11:47 AM MACHINE PULLER AND LASTER): Assessment: Malnutrition is secondary to ARFID and [...] Assessment & Plan (02/09/2020 11:50 AM MACHINE PULLER AND LASTER): Assessment: Marlee is admitted on ED Protocol for severe malnutrition. Following feeding plan per Adolescent Medicine and Nutrition. Plan: - see plan under ARFID problem Assessment & Plan (02/07/2020 11:47 AM MACHINE PULLER AND LASTER): Assessment: Marlee is admitted on ED Protocol for severe malnutrition. Following feeding plan per Adolescent Medicine and Nutrition. Plan: - see plan under ARFID problem Assessment & Plan (02/06/2020 8:12 AM MACHINE PULLER AND LASTER): Assessment: Marlee is admitted on ED Protocol for severe malnutrition. Following feeding plan per Adolescent Medicine and Nutrition. Plan: - see plan under ARFID problem Assessment & Plan (02/05/2020 9:01 AM MACHINE PULLER AND LASTER): Assessment: Marlee is admitted on ED Protocol for severe malnutrition. Following feeding plan per Adolescent Medicine and Nutrition. Plan: - see plan under ARFID problem Assessment & Plan (02/04/2020 12:34 PM MACHINE PULLER AND LASTER): Assessment: Marlee is admitted on ED Protocol for severe malnutrition. Following feeding plan per Adolescent Medicine and Nutrition. Plan: - see plan under ARFID problem Assessment & Plan (02/03/2020 2:28 PM MACHINE PULLER AND LASTER): Assessment: Marlee is admitted on ED Protocol for severe malnutrition. Following feeding plan per Adolescent Medicine and Nutrition. Plan: - see plan under ARFID problem Assessment & Plan (02/02/2020 3:57 PM MACHINE PULLER AND LASTER): Assessment: Marlee is admitted on ED Protocol for severe malnutrition. Following feeding plan per Adolescent Medicine and Nutrition. Plan: - see plan under ARFID problem Assessment & Plan (02/01/2020 12:10 PM MACHINE PULLER AND LASTER): Assessment: Marlee is admitted on ED Protocol for severe malnutrition. Following feeding plan per Adolescent Medicine and Nutrition. Plan: - see plan under ARFID problem Assessment & Plan (01/31/2020 1:04 PM MACHINE PULLER AND LASTER): Assessment: Marlee is admitted on ED Protocol for severe malnutrition. Following feeding plan per Adolescent Medicine and Nutrition. Plan: - see plan under ARFID problem Assessment & Plan (01/30/2020 10:28 AM MACHINE PULLER AND LASTER): Assessment: Marlee is admitted on ED Protocol for severe malnutrition. Following feeding plan per Adolescent Medicine and Nutrition. Plan: - see plan under ARFID problem Assessment & Plan (01/28/2020 4:29 PM MACHINE PULLER AND LASTER): Assessment: Malnutrition is secondary to ARFID and [...] Assessment & Plan (01/24/2020 11:54 AM MACHINE PULLER AND LASTER): Assessment: Marlee is admitted on ED Protocol for severe malnutrition. Following feeding plan per Adolescent Medicine and Nutrition. Plan: - see plan under ARFID problem Assessment & Plan (01/23/2020 7:09 AM MACHINE PULLER AND LASTER): Assessment: Marlee is admitted on ED Protocol for severe malnutrition. Following feeding plan per Adolescent Medicine and Nutrition. Plan: - see plan under ARFID problem Assessment & Plan (01/22/2020 9:48 AM MACHINE PULLER AND LASTER): Assessment: Malnutrition is secondary to ARFID and [...] Assessment & Plan (01/22/2020 7:52 AM MACHINE PULLER AND LASTER): Assessment: Marlee is admitted on ED Protocol for severe malnutrition. Following feeding plan per Adolescent Medicine and Nutrition. Plan: - see plan under ARFID problem Assessment & Plan (01/21/2020 10:33 AM MACHINE PULLER AND LASTER): Assessment: Malnutrition is secondary to ARFID and [...] Assessment & Plan (01/21/2020 7:40 AM MACHINE PULLER AND LASTER): Assessment: Marlee is admitted on ED Protocol for severe malnutrition. Following feeding plan per Adolescent Medicine and Nutrition. Plan: - see plan under ARFID problem Assessment & Plan (01/20/2020 7:36 AM MACHINE PULLER AND LASTER): Assessment: Marlee is admitted on ED Protocol for severe malnutrition. Following feeding plan per Adolescent Medicine and Nutrition. Plan: - see plan under ARFID problem Assessment & Plan (01/19/2020 7:22 AM MACHINE PULLER AND LASTER): Assessment: Marlee is admitted on ED Protocol for severe malnutrition. Following feeding plan per Adolescent Medicine and Nutrition. Plan: - see plan under ARFID problem Assessment & Plan (01/18/2020 4:25 PM MACHINE PULLER AND LASTER): Assessment: Marlee Chavez is a 19 year [...] Assessment & Plan (01/17/2020 12:38 PM MACHINE PULLER AND LASTER): Assessment: Marlee Chavez is a 19 year [...] Assessment & Plan (01/16/2020 1:41 PM MACHINE PULLER AND LASTER): Assessment: Marlee Chavez is a 19 year [...] Assessment & Plan (01/15/2020 8:49 PM MACHINE PULLER AND LASTER): Assessment: Malnutrition is secondary to ARFID and [...] Assessment & Plan (01/15/2020 11:57 AM MACHINE PULLER AND LASTER): Assessment: Marlee Chavez is a 19 year [...] Assessment & Plan (01/14/2020 1:00 PM MACHINE PULLER AND LASTER): Assessment: Malnutrition is secondary to ARFID and [...] Assessment & Plan (01/14/2020 9:54 AM MACHINE PULLER AND LASTER): Assessment: Marlee Chavez is a 19 year [...] Assessment & Plan (01/13/2020 2:34 PM MACHINE PULLER AND LASTER): Assessment: Marlee Chavez is a 19 year [...] Assessment & Plan (01/13/2020 12:01 PM MACHINE PULLER AND LASTER): Moderate protein-calorie malnutrition Assessment: Marlee Chavez is [...] Assessment & Plan (01/12/2020 3:40 PM MACHINE PULLER AND LASTER): Moderate protein-calorie malnutrition Assessment: Marlee Chavez is [...] Assessment & Plan (01/12/2020 1:25 PM MACHINE PULLER AND LASTER): Assessment: Marlee Chavez is a 19 year [...] Assessment & Plan (01/11/2020 11:43 AM MACHINE PULLER AND LASTER): Assessment: Marlee Chavez is a 19 year [...] Assessment & Plan (01/10/2020 9:32 AM MACHINE PULLER AND LASTER): Assessment: Marlee Chavez is a 19 year [...] Assessment & Plan (01/09/2020 11:08 AM MACHINE PULLER AND LASTER): Assessment: Marlee Chavez is a 19 year [...] Assessment & Plan (01/08/2020 1:32 PM MACHINE PULLER AND LASTER): Assessment: Marlee Chavez is a 19 year [...] Assessment & Plan (01/07/2020 2:52 PM MACHINE PULLER AND LASTER): Assessment: Marlee Chavez is a 19 year [...] Assessment & Plan (01/06/2020 11:27 AM MACHINE PULLER AND LASTER): Assessment: Marlee Chavez is a 19 year [...] Assessment & Plan (01/05/2020 3:49 PM MACHINE PULLER AND LASTER): Assessment: Marlee Chavez is a 19 year [...] Assessment & Plan (01/04/2020 1:53 PM MACHINE PULLER AND LASTER): Assessment: Marlee Chavez is a 19 year [...] Assessment & Plan (01/03/2020 12:34 AM MACHINE PULLER AND LASTER): Assessment: Marlee Chavez is a 19 year [...] Assessment & Plan (01/24/2022 5:04 PM MACHINE PULLER AND LASTER): Assessment: Marlee Chavez is a 20 year [...] Assessment & Plan (01/23/2022 6:56 PM MACHINE PULLER AND LASTER): Assessment: Marlee Chavez is a 20 year [...] Assessment & Plan (01/08/2021 3:05 PM MACHINE PULLER AND LASTER): Assessment: Patient is an 20 year old [...] Assessment & Plan (01/07/2021 4:52 PM MACHINE PULLER AND LASTER): Assessment: Patient is an 20 year old [...] Assessment & Plan (01/06/2021 6:00 PM MACHINE PULLER AND LASTER): Assessment: Patient is an 20 year old [...] Assessment & Plan (01/05/2021 1:27 PM MACHINE PULLER AND LASTER): Assessment: Patient is an 20 year old [...] Assessment & Plan (01/04/2021 9:17 PM MACHINE PULLER AND LASTER): Assessment: Patient is an 20 year old [...] Assessment & Plan (01/03/2021 8:43 PM MACHINE PULLER AND LASTER): Assessment: Patient is an 20 year old [...] wearing condom. She has upcoming appointment with community planning technician next month at which time, she will be getting a IUD. Plan: -urine test today -GC, chlamydia, trichomonas testing Assessment & Plan (05/24/2020 2:43 PM CDT): Will get urine Hcg and STI testing. Mom is aware and Marlee is ok with us communicating results to her mother. Purging 03/24/2020 05/24/2020 Assessment & Plan (04/05/2020 3:23 PM MACHINE PULLER AND LASTER): Assessment: Has been drinking excessive amounts of water and putting her fingers in her mouth to induce vomiting. No recorded emesis since 03/25. Plan: Will limit access to water to 250ml at a time. May only bathe once per day after she has taken her meds, had breakfast and lunch. Assessment & Plan (04/04/2020 12:58 PM MACHINE PULLER AND LASTER): Assessment: Has been drinking excessive amounts of water and putting her fingers in her mouth to induce vomiting. No recorded emesis since 03/25. Plan: Will limit access to water to 250ml at a time. May only bathe once per day after she has taken her meds, had breakfast and lunch. Assessment & Plan (04/01/2020 11:55 AM MACHINE PULLER AND LASTER): Assessment: Has been drinking excessive amounts of water and putting her fingers in her mouth to induce vomiting. No recorded emesis since 03/25. Plan: Will limit access to water to 250ml at a time. May only bathe once per day after she has taken her meds, had breakfast and lunch. Assessment & Plan (03/24/2020 4:53 PM MACHINE PULLER AND LASTER): Assessment: Has been drinking excessive amounts of water and putting her fingers in her mouth to induce vomiting. Plan: Will limit access to water to 250ml at a time. May only bathe once per day after she has taken her meds, had breakfast and lunch. Ovarian cyst 01/12/2020 03/19/2020 Assessment & Plan (03/15/2020 11:10 AM MACHINE PULLER AND LASTER): Assessment: on ultrasound on R Plan: -Radiology recommended repeat imaging in 6 months for ovarian cysts Assessment & Plan (03/04/2020 1:41 PM MACHINE PULLER AND LASTER): Assessment: on ultrasound on R Plan: -Radiology recommended repeat imaging in 6 months for ovarian cysts Assessment & Plan (03/04/2020 11:50 AM MACHINE PULLER AND LASTER): Assessment: on ultrasound on R Plan: -Radiology recommended repeat imaging in 6 months for ovarian cysts Assessment & Plan (02/27/2020 9:58 AM MACHINE PULLER AND LASTER): Assessment: on ultrasound on R Plan: -Radiology recommended repeat imaging in 6 months for ovarian cysts Assessment & Plan (01/28/2020 11:59 AM MACHINE PULLER AND LASTER): Assessment: on ultrasound on R Plan: -Radiology recommended repeat imaging in 6 months for ovarian cysts Assessment & Plan (01/27/2020 3:52 PM MACHINE PULLER AND LASTER): Assessment: on ultrasound on R Plan: -Radiology recommended repeat imaging in 6 months for ovarian cysts Assessment & Plan (01/26/2020 6:01 PM MACHINE PULLER AND LASTER): Assessment: on ultrasound on R Plan: -Radiology recommended repeat imaging in 6 months for ovarian cysts Assessment & Plan (01/13/2020 2:33 PM MACHINE PULLER AND LASTER): Assessment: on ultrasound on R Plan: -Radiology recommended repeat imaging in 6 months for ovarian cysts Assessment & Plan (01/12/2020 1:26 PM MACHINE PULLER AND LASTER): Assessment: on ultrasound on R Plan: -Radiology recommended repeat imaging in 6 months for ovarian cysts Self-injurious behavior 03/25/201705/12 Major depressive disorder, severe 03/21/2017 05/24/2020 Intractable vomiting 020 Encounters * This document contains information received from the source organization and may not represent a complete record from that organization. Date Type Department Care Team Description 09/22/2024 Telephone [facility] [address] [place] [address] Ronel Thornton, Medication Request 07/07/2024 Travel from Last 3 Months Immunizations Immunization Administration Dates Next Due StartSpanish primary monoval ent 12+ yr 0.3mL Purple [...] Recorded Patient Health Questionnaire-2 Score 0 07/07/2024 [facility] Occupat ional Health - Occupational Stress [...] place to sleep or slept in a correction (including now)? No 04/24/2023 Comments No Sex and Gender Information Value Date Recorded Sex Assigned at Not on file Legal Sex Female 6:25 PM MACHINE PULLER AND LASTER Gender Identity Not on file Sexual Orientation [...] st Contact Info) Description 01/20/2025 8:20 AM MACHINE PULLER AND LASTER Office Visit [facility] - Family Medicine [address] [place] [address] Ronel Thornton DO [address] [place] [address] Health Maintenance Due Date Last Done [...] BILL Comment: Performed at: 02 - [facility] [address] [id number] Career Representative: Meredith Gil MD, Phone: [phone] Performed at: 01 - [facility] [address] [id number] Career Representative: Meredith Gil MD, Phone: [phone] Diagnosis Comment(A) [facility] ACCOUNT BILL Comment: EPITHELIAL [...] - 12/05/2023 5:09 PM CDT Performed at: [address] [place] [id number] Career Representative: Meredith Gil MD, Phone: [phone] Specimen Comment: [id number] Specimen Comment: Source.............Cervix Specimen Comment: No. of containers..01 ThinPrep Vial us Nai Jurado MD LAB - PATHOLOGY/CYTOLOGY [place] Final Result [facility] ACCOUNT BILL [address] [place] [address] * HIV-1 HIV-2 ANTIBODY + HIV P24 [...] AM CDT Performed at: 01 - [facility] [address] [place], [place] [id number] Career Representative: Karlos Huffman PhD, Phone: [phone] Nai Jurado MD LAB - CHEMISTRY ORDERABLES Fi nal Result Performing Organization Address City/[facility]/ZIP Co de Phone Number [facility] ACCOUNT BILL [address] [place] [address] * HEPATITIS C AB W/RFLX TO HCV RNA QN PCR (12/07/2021) Hepatitis C Antibody NON-REACTI VE NON-REACT [facility] Signal to Cut-Off 0.08 <1.00 [facility] Comment: HCV antibody was non-reactive. There is no laboratory evidence of HCV infection. In most cases, no further action is required. However, if recent HCV exposure is suspected, a test for HCV RNA (test code 65864) is suggested. For additional information please refer to http://education.Healthcentrix.NovaShunt/faq/UCH01s0 (This link is being provided for informational/ educational purposes only.) Test Performed at: [facility] [address] [place] [address] PURVI PABLO DO,MPH Blood BLOOD SPECIMEN / Unknown 12/07/2021 12/07/2021 10:47 AM CDT us Karrie Mack MD LAB - CHEMISTRY ORDERABLES Final Result [facility] [address] [place] [address] from Last 3 Months or Most Recently Relevant to Health Maintenance Insurance [facility] Member Subscriber Plan / Payer (Ef fective 2023-) Name:Marlee Newman Kathleen Relation to Subscriber:Child Name:NAI NEWMAN Date of :1984 (Home) (Work) Address: [address] [place] [address] Payer ID:[id number] ([facility]) Group ID:[id number] Type:Commercial Address: [place] [id number] [facility] Member Subscriber Plan / Payer ( fective 2023-) Name:Marlee Newman Kathleen Relation to Subscriber:Child Name:NAI NEWMAN Date of :1982 (Home) (Work) Address: [address] [place] [address] Payer ID:[id number] ([facility]) Group ID:[id number] Type:Commercial Address: [place] [phone] [facility] Advance Directives * [...] 4:54 PM 06/22/2022 2:44 PM Care Teams Basting Marker Relationship Specialty Start Date End Date Ronel Thornton DO [address] [place] [address] PCP - General Family Medicine 03/18/23 Ronel Thornton DO [address] [place] [address] PCP - Attributed-[facility] STL 04/12/23
--- OUTSIDE RECORDS SUMMARY | 2024-09-26 07:35 | XMS_ITS | Encounter Summary ---
Author Organization [facility] Address [address] [place] [address] Care Team Providers Care Development Intern Name Role Phone Mellissa Jiménez MD Primary Care Provider [phone] Ronel Thornton DO Primary Care Provider [phone] Daphnie Gillespie MD Unavailable Juliana Peralta AUTOMOTIVE ELECTRICIAN HELPER Unavailable [phone] Juliana Peralta AUTOMOTIVE ELECTRICIAN HELPER Unavailable [phone] Ronel Thornton DO Unavailable [phone] Kenyatta Taylor RN Unavailable [phone] Tiago Lew Unavailable [phone] Reason for Visit * Reason Onset Date Comments Eating disorder 08/04/2020 Encounter Details Date Type Department Care Team (Late st Contact Info) Description 08/04/2020 Telephone [facility] Various Exceptionalities Teacher [address] [place] [address] Flor Martinez, CHANNEL CEMENTER INSOLE MACHINE Eating disorder Social History Tobacco Use Types Packs/Day Years Used Date Smoking Tobacco: Never Smokeless Tobacco: Never Alcohol Use Standard Drinks/Week Comments No 0 (1 standard drink = 0.6 oz pur e alcohol) Comments No Sex and Gender Information Value Date Recorded Sex Assigned at Not on file Legal Sex Female 6:25 PM SLIP FILLER Gender Identity Not on file Sexual Orientation [...] phone calls with Kenyatta's mother Esperanza and [facility] this week regarding Kenyatta's relapse, and mother's belief that she needs to be admitted to [facility]. Spoke with mother again this a.m, and they have a phone intake assessment with [facility] next SaturdayAugust 08. documented in this encounter Plan of Treatment Upcoming Encounters Date Type Department Care Team (Late st Contact Info) Description 01/20/2025 8:20 AM SLIP FILLER Office Visit [facility] - Family Medicine [address] [place] [address] Ronel Thornton DO [address] [place] [address] documented as of this encounter Visit Diagnoses Not on filedocumented in this encounter Additional Health Concerns Infection Onset Date Last Indicated Resolved Time COVID-19 Under Investigation 08/10/2021 08/10/2021 08/10/2021 2:59 AM CDT documented as of this encounter Care Teams Development Intern Relationship Specialty Start Date End Date Mellissa Jiménez MD [address] [place] [address] [place] [address] PCP - General Family Medicine 04/25/20 03/17/23 Ronel Thornton DO [address] [place] [address] PCP - General Family Medicine 03/18/23 Daphnie Gillespie MD [address] [place] [address] PCP - Attributed-[facility] EHP STL 02/11/23 04/11/23 Ronel Thornton DO [address] [place] [address] PCP - Attributed-[facility] STL 04/12/23 Juliana Peralta MSW Outpatient Vest Front Presser Care Management 04/24/2304/11 Juliana Peralta MSW Outpatient Vest Front Presser Care Management 04/30/2304/12 Kenyatta Taylor RN [address] [address] Division Merchandise ManagerPatient Support Assistant 09/02/23 10/04/23 Tiago Lew Care Coordination Specialist Care Management 09/26/23 11/10/23 documented as of this encounter
--- OUTSIDE RECORDS SUMMARY | 2024-09-26 07:35 | XMS_ITS | Encounter Summary ---
Author Organization [facility] Address [address] [place] [address] Care Team Providers Care Java Lead Architect Name Role Phone Mellissa Jiménez MD Primary Care Provider [phone] Ronel Thornton DO Primary Care Provider Daphnie Gillespie MD Unavailable Juliana Peralta DISPATCHER SERVICE Unavailable [phone] Juliana Peralta DISPATCHER SERVICE Unavailable [phone] Ronel Thornton DO Unavailable Kenyatta Taylor RN Unavailable Tiago Lew Unavailable [phone] Reason for Visit * Reason Onset Date Comments Forms/questionnaires 01/23/2021 Encounter Details Date Type Department Care Team (Late st Contact Info) Description 01/23/2021 Telephone [facility] Pediatrics - Surgery [address] [place] [address] Daphnie Gillespie MD [address] [place] [phone] Forms/questionnaires Social History Tobacco Use Types [...] on file Legal Sex Female 6:25 PM VP TRAINING Gender Identity Not on file Sexual Orientation Not on file COVID-19 Exposure Response Date Recorded In the last month, have you been in contact with someone who was confirmed or suspected to have Coronavirus / COVID-19? No / Unsure 01/24/2021 11:47 AM VP TRAINING documented as of this encounter Functional Status [...] wanted to know if it was received. TRAINING documented in this encounter Plan of Treatment Upcoming Encounters Date Type Department Care Team (Late st Contact Info) Description 01/20/2025 8:20 AM VP TRAINING Office Visit [facility] - Family Medicine [address] [place] [phone] Ronel Thornton DO [address] [place] [phone] documented as of this encounter Visit Diagnoses Not on filedocumented in this encounter Additional Health Concerns Infection Onset Date Last Indicated Resolved Time COVID-19 Under Investigation 08/10/2021 08/10/2021 08/10/2021 2:59 AM CDT documented as of this encounter Care Teams Java Lead Architect Relationship Specialty Start Date End Date Mellissa Jiménez MD [address] [place] [address] [place] [address] PCP - General Family Medicine 04/25/20 03/17/23 Ronel hTornton DO [address] [place] [address] PCP - General Family Medicine 03/18/23 Daphnie Gillespie MD [address] [place] [phone] PCP - Attributed-[facility] EHP STL 02/11/23 04/11/23 Ronel Thornton DO [address] [place] [address] PCP - Attributed-[facility] EHP STL 04/12/23 Juliana Peralta MSW Outpatient Forensic Artist Care Management 04/24/2304/11 Juliana Peralta MSW Outpatient Forensic Artist Care Management 04/30/2304/12 Kenyatta Taylor RN [address] [address] Engine Generator AssemblerNatural Resource Technician 09/02/23 10/04/23 Tiago Lew Care Coordination Specialist Care Management 09/26/23 11/10/23 documented as of this encounter
--- OUTSIDE RECORDS SUMMARY | 2024-09-26 07:35 | XMS_ITS | Encounter Summary ---
Author Organization [facility] Address [address] [place] [address] Care Team Providers Care Linotype Machinist Apprentice Name Role Phone Mellissa Jiménez MD Primary Care Provider [phone] Ronel Thornton DO Primary Care Provider [phone] Daphnie Gillespie MD Unavailable Juliana Peralta COMMUNITY SERVICES MANAGER Unavailable [phone] Juliana Peralta Unavailable [phone] Ronel Thornton DO Unavailable [phone] Kenyatta Taylor RN Unavailable Tiago Lew Unavailable [phone] Encounter Details Date Type Department Care Team (Late st Contact Info) Description 07/28/2020 Telephone [facility] Pediatrics - Pulmonology [address] [place] [id number] Bessie Erwin Social History Tobacco Use Types Packs/Day Years Used Date Smoking Tobacco: Never Smokeless Tobacco: Never Alcohol Use Standard Drinks/Week Comments No 0 (1 standard drink = 0.6 oz pur e alcohol) Comments No Sex and Gender Information Value Date Recorded Sex Assigned at Not on file Legal Sex Female 6:25 PM FRONT DESK ADMIN Gender Identity Not on file Sexual Orientation [...] PM CDT Mom called regarding not eating [phone] Marla Gillespie documented in this encounter Plan of Treatment Upcoming Encounters Date Type Department Care Team (Late st Contact Info) Description 01/20/2025 8:20 AM FRONT DESK ADMIN Office Visit [facility] Family [address] [address] Ronel Thornton DO [address] [place] [address] documented as of this encounter Visit Diagnoses Not on filedocumented in this encounter Additional Health Concerns Infection Onset Date Last Indicated Resolved Time COVID-19 Under Investigation 08/10/2021 08/10/2021 08/10/2021 2:59 AM CDT documented as of this encounter Care Teams Linotype Machinist Apprentice Relationship Specialty Start Date End Date Mellissa Jiménez MD [address] [place] [address] [place] [address] PCP - General Family Medicine 04/25/20 03/17/23 Ronel Thornton DO [address] [place] [address], [place] [address] PCP - General Family Medicine 03/18/23 Daphnie Gillespie MD [address] [place] [phone] PCP - Attributed-[facility] ST[facility] 02/11/23 04/11/23 Ronel Thornton DO [address] [place] [address], [place] [address] PCP - Attributed-[facility] STL 04/12/23 Juliana Peralta MSW Outpatient Locomotive Switch Operator Care Management 04/24/2304/11 Juliana Peralta MSW Outpatient Locomotive Switch Operator Care Management 04/30/2304/12 Kenyatta Talyor RN [address] [address] Music HistorianMiller Head 09/02/23 10/04/23 Tiago Lew Care Coordination Specialist Care Management 09/26/23 11/10/23 documented as of this encounter
--- OUTSIDE RECORDS SUMMARY | 2024-09-26 07:35 | XMS_ITS | Encounter Summary ---
Author Organization [facility] Address [address] [place] [address] Care Team Providers Care Necktie Operator Pockets And Pieces Name Role Phone Mellissa Jiménez MD Primary Care Provider [phone] Ronel Thornton DO Primary Care Provider [phone] Daphnie Gillespie MD Unavailable Juliana Peralta DIRECTOR SANITATION BUREAU Unavailable [phone] Juliana Peralta DIRECTOR SANITATION BUREAU Unavailable [phone] Ronel Thornton DO Unavailable [phone] Kenyatta Taylor RN Unavailable Tiago Lew Unavailable [phone] Reason for Visit * Reason Onset Date Comments Appointment 10/05/2020 Contraceptive management 10/05/2020 Encounter Details Date Type Department Care Team (Late st Contact Info) Description 10/05/2020 Telephone [facility] [address] [place], [place] [id number] [place] [address] [place] [address] Appointment; Contraceptive management Social History Tobacco Use Types Packs/Day Years Used Date Smoking Tobacco: Never Smokeless Tobacco: Never Alcohol Use Standard Drinks/Week Comments No 0 (1 standard drink = 0.6 oz pur e alcohol) Comments No Sex and Gender Information Value Date Recorded Sex Assigned at Not on file Legal Sex Female 6:25 PM WEB PORTAL DEVELOPER Gender Identity Not on file Sexual [...] the office yet to get scheduled. CB# [phone] documented in this encounter Plan of Treatment Upcoming Encounters Date Type Department Care Team (Late st Contact Info) Description 01/20/2025 8:20 AM WEB PORTAL DEVELOPER Office Visit [facility] Family Medicine [address] [place] [address] oRnel Thornton DO [address] [place] [address] documented as of this encounter Visit Diagnoses Not on filedocumented in this encounter Additional Health Concerns Infection Onset Date Last Indicated Resolved Time COVID-19 Under Investigation 08/10/2021 08/10/2021 08/10/2021 2:59 AM CDT documented as of this encounter Care Teams Necktie Operator Pockets And Pieces Relationship Specialty Start Date End Date Mellissa Jiménez MD [address] [place] [address] [place] [address] PCP - General Family Medicine 04/25/20 03/17/23 Ronel Thornton DO [address] [place] [address] PCP - General Family Medicine 03/18/23 [place] [address] [place] [id number] PCP - Attributed-[facility] STL 02/11/23 04/11/23 Ronel Thornton DO [address] [place] [address] PCP - Attributed-[facility] STL 04/12/23 Juliana Peralta MSW Outpatient Swimming Pool Cleaner Care Management 04/24/2304/11 Juliana Peralta MSW Outpatient Swimming Pool Cleaner Care Management 04/30/2304/12 Kenyatta Taylor RN [address] [address] Drapery EstimatorCommercial Lender 09/02/23 10/04/23 Tiago Lew Care Coordination Specialist Care Management 09/26/23 11/10/23 documented as of this encounter
[2024-09-26] MEDS: ONDANSETRON INJ 4 MG/2 ML VIAL IV PUSH ×2 (08:49→20:08)
[2024-09-26] MEDS: HYOSCYAMINE SULFATE 0.0625 MG TABLET PO ×4 (09:53→21:10)
[2024-09-26] MEDS: POTASSIUM CHLORIDE INJ 40 MEQ in SODIUM CHLORIDE 0.9% IV 500 ML 130 MEQ IVPB (09:53)
[2024-09-26] MEDS: SUCRALFATE SUSP 100 MG/ML 10 ML UDC 1000 MG PO (11:25)
--- NOTE | 2024-09-26 13:36 | P.PNIM_ITS ---
Progress Note: A&P Assessment and Plan (1) Intractable nausea and vomiting: Code(s): R11.2 - Nausea with vomiting, unspecified Status: Acute Assessment and Plan: * Patient recently hospitalized for enteritis as evidence by CT scan. * Discharged home yesterday to continue Augmentin p.o., however patient unable to tolerate any oral intake or medications, prompting her return to the emergency room. * Patient receiving IV fluids of LR at 100 mL/hour. * As she cannot tolerate oral intake at this time will provide IV antibiotics of Zosyn 3.375 g q.6 hours * Transition to p.o. as soon as possible * NPO except ice chips * P.r.n. Zofran 4 mg q.4 hours p.r.n. for nausea * Scheduled Reglan 10 mg IV push q.8 hours * Monitor and trend labs and vital signs (2) Cyclical vomiting: Code(s): R11.15 - Cyclical vomiting syndrome unrelated to migraine Status: Acute Assessment and Plan: * Despite counseling for cessation of marijuana use, patient continue to use once discharged home yesterday. * Suspect patient's intractable nausea and vomiting has a component of cyclical vomiting. * Droperidol given in the ER with improvement. * Scheduled Reglan 10 mg q.8 hours. * P.r.n. Zofran 4 mg IV push q.4 hours. * Consider GI consult (3) Marijuana abuse: Code(s): F12.10 - Cannabis abuse, uncomplicated Status: Acute Assessment and Plan: * See 2. (4) Lactic acidosis: Code(s): E87.20 - Acidosis, unspecified Status: Acute Assessment and Plan: * 4.3 on arrival to ER and has trended downward to 2.2 after receiving IV fluids. Suspect degree of dehydration given intractable nausea and vomiting * Continue IV hydration * Monitor and trend labs and vital signs (5) Dehydration: Code(s): E86.0 - Dehydration Status: Acute Assessment and Plan: * See 4. (6) Enteritis: Code(s): K52.9 - Noninfective gastroenteritis and colitis, unspecified Status: Acute Assessment and Plan: * See 1. * Low threshold for repeating advanced imaging with CT scan if symptoms persist. Plan patient recurrent abdominal pain, nausea and vomiting with history smoking Marijuana which can cause Cannabinoid Hyperemesis Syndrome (CHS), patient is instructed to stop smoking marijuana, will start patient on Carafate and Levsin to help with nausea and abdominal pain, will monitor and plan. Subjective Date/time seen: 09/26/24 13:36 Interval history: Abdominal pain with nausea/vomiting/diarrhea H&P-Narrative: This 24-year-old female patient with past medical history of drug abuse, eating disorder, anxiety, depression, marijuana abuse, cyclical vomiting and he was most recently hospitalized here from September [address] evidenced enteritis and was discharged yesterday returned to the emergency room tonight with complaints of having worsening of her symptoms when she returns home. Patient was discharged home with prescription for Augmentin that she states she has not been able to take due to the acute onset again nausea and vomiting. Patient states she was able to use her marijuana upon return home after discharge. Patient states her pain is in the upper region of the abdomen. She has that been able to identify anything that makes it worse or better. In the emergency room workup was performed that shows stable vital signs, white blood cell count of 10.0 and otherwise normal CBC as well as unremarkable metabolic panel. Lactic acid however was 4.3 and after IV hydration decreased to 2.2. Due to the young age of the patient and no leukocytosis CT scan in the ER was deferred at this time. She was medicated with droperidol, Pepcid and was given famotidine in ER but states she still has a lot of pain and also she cannot keep anything down. Patient denies any fevers upon return home and she denies any additional drug use other than marijuana patient recurrent abdominal pain, nausea and vomiting with history smoking Marijuana which can cause Cannabinoid Hyperemesis Syndrome (CHS), patient is instructed to stop smoking marijuana, will start patient on Carafate and Levsin to help with nausea and abdominal pain, will monitor and plan. Review of Systems Review of Systems: All systems reviewed & are unremarkable except as noted in HPI and below Exam Narrative: Appears malnourished Patient is comfortable, NAD HEENT: eyes are clear and none icteric ABD: Not distended Lower extremities: no edema SKIN: nonjaundiced Neuro: grossly intact. Objective Data Vital Signs Vital Signs: Vital Signs - 24 hr 09/26/24 02:39 09/26/24 05:03 09/26/24 05:05 Temperature 36.4 C Pulse Rate 118 H 111 H Respiratory Rate 28 H 20 Blood Pressure 154/121 H 135/79 Pulse Oximetry 98 100 97 Oxygen Delivery Room Air 09/26/24 06:38 09/26/24 08:49 Temperature Pulse Rate 99 Respiratory Rate 20 Blood Pressure 128/88 Pulse Oximetry 99 Oxygen Delivery Room Air Intake/Output Intake/Output: Intake & Output 09/23/24 09/24/24 09/25/24 09/26/24 23:59 23:59 23:59 23:59 Intake Total 2049 Output Total 100 Balance 1950 Meds/Results Medications: Active Medications Generic Name Dose Route Start Last Admin Trade Name Freq PRN Reason Stop Dose Admin Acetaminophen 650 mg 09/26/24 04:43 Acetaminophen 325 Mg Tablet PO Q4H PRN Mild Pain (1-3) or Fever Hyoscyamine 0.0625 mg 09/26/24 09:00 09/26/24 13:35 Hyoscyamine Sulfate 0.0625 Mg Tablet PO 09/27/24 08:59 0.0625 mg Q4H CELINA Administration Lactated Ringer's 1,000 mls @ 100 mls/hr 09/26/24 04:45 09/26/24 07:16 Lr - Lactated Ringers Iv IV CONT 100 mls/hr .Q10H CELINA Administration Piperacillin Sod/Tazobactam 50 mls @ 100 mls/hr 09/26/24 06:00 09/26/24 11:26 Sod 3.375 gm/ Sodium Chloride IVPB 100 mls/hr Q6HR CELINA Administration Metoclopramide HCl 10 mg 09/26/24 06:00 09/26/24 13:35 Metoclopramide Hcl Inj 10 Mg/2 Ml Vial IV PUSH 10 mg Q8HR CELINA Administration Ondansetron HCl 4 mg 09/26/24 04:43 09/26/24 08:49 Ondansetron Inj 4 Mg/2 Ml Vial IV PUSH 4 mg Q4H PRN Administration Nausea Sucralfate 1,000 mg 09/26/24 11:30 09/26/24 11:25 Sucralfate Susp 100 Mg/Ml 10 Ml Udc PO 500 mg ACHS CELINA Administration Labs Labs: Laboratory Results - last 24 hr 09/26/24 09/26/24 09/26/24 03:01 03:47 04:44 WBC 10.0 RBC 3.93 L Hgb 11.8 L Hct 34.4 L MCV 87.5 MCH 30.0 MCHC 34.3 RDW 12.6 Plt Count 314 MPV 9.9 Immature Gran % (Auto) 0.2 Neut % (Auto) 50.3 Lymph % (Auto) 38.1 Valencia % (Auto) 10.8 H Eos % (Auto) 0.2 Baso % (Auto) 0.4 Lymph # (Auto) 3.80 H Valencia # (Auto) 1.1 H Eos # (Auto) 0.0 Baso # (Auto) 0.0 Abs Immat Gran (auto) 0.02 Absolute Neuts (auto) 5.0 Absolute Nucleated RBC 0.000 Nucleated RBC % 0.0 Sodium 140 Potassium 3.4 Chloride 108 H Carbon Dioxide 17 L Anion Gap 15 H BUN 6 L Creatinine 0.86 Estim Creat Clear Calc 67 Estimated GFR > 60 Glucose 106 Lactic Acid 4.3 H* 2.2 H Calcium 9.0 Total Bilirubin 0.3 AST 52 H ALT 24 Alkaline Phosphatase 65 Total Protein 6.7 Albumin 4.1 Lipase 147 09/26/24 08:46 WBC RBC Hgb Hct MCV MCH MCHC RDW Plt Count MPV Immature Gran % (Auto) Neut % (Auto) Lymph % (Auto) Valencia % (Auto) Eos % (Auto) Baso % (Auto) Lymph # (Auto) Valencia # (Auto) Eos # (Auto) Baso # (Auto) Abs Immat Gran (auto) Absolute Neuts (auto) Absolute Nucleated RBC Nucleated RBC % Sodium Potassium Chloride Carbon Dioxide Anion Gap BUN Creatinine Estim Creat Clear Calc Estimated GFR Glucose Lactic Acid 3.3 H Calcium Total Bilirubin AST ALT Alkaline Phosphatase Total Protein Albumin Lipase
[2024-09-27] VITALS: PULSE 65
[2024-09-27] MEDS: LACTATED RINGERS 1,000 ML 100 ML IV CONT (00:18)
[2024-09-27] MEDS: PIPERACILLIN/TAZOBACTAM SOD 3.375 GM in SODIUM CHLORIDE 0.9% IV 50 ML 100 ML IVPB ×3 (00:18→12:21)
[2024-09-27] MEDS: HYOSCYAMINE SULFATE 0.0625 MG TABLET PO ×2 (00:18→06:06)
[2024-09-27 04:00] VITALS: PULSE 92
[2024-09-27 06:00] VITALS: BP 121/72; PULSE 62; RESP 16; TEMP 36.4; O2SAT 100
[2024-09-27] MEDS: METOCLOPRAMIDE HCL INJ 10 MG/2 ML VIAL IV PUSH ×2 (06:06→15:06)
[2024-09-27 06:39] LABS: Hematocrit 36.2 % (37.0-47.0); Hemoglobin 12.0 g/dL (12.0-15.0); Mean Corpuscular HGB Conc 33.1 g/dl (32-36); Mean Corpuscular Hemoglobin 29.9 pg (26-34); Mean Corpuscular Volume 90.0 fl (80-100); Platelet Count Result 266 k/mm3 (150-375); Red Blood Count 4.02 M/mm3 (4.2-5.4); White Blood Count 5.3 K/mm3 (4.5-10.0)
[2024-09-27 07:03] LABS: Anion Gap 10 mmol/L (4-12); Calcium 8.8 mg/dL (8.4-10.2); Carbon Dioxide 23 mmol/L (22-30); Chloride 104 mmol/L (98-107); Estimated CRCL calculation 75 ml/min; Estimated Glomerular Filt Rate > 60; Glucose 81 mg/dL (65-110); Magnesium 1.7 mg/dL (1.6-2.3); Potassium 3.8 mmol/L (3.4-5.0); Sodium 137 mmol/L (137-145)
[2024-09-27 07:09] LABS: Blood Urea Nitrogen < 2 mg/dL (7-17)
[2024-09-27 08:00] VITALS: PULSE 51
--- NOTE | 2024-09-27 11:04 | WPDCNPSYCH ---
Assessment and Plan Assessment and plan (1) Anxiety: Code(s): F41.9 - Anxiety disorder, unspecified Status: Acute Assessment and Plan: - Assessment: Patient reports ongoing anxiety symptoms despite current treatment with Lexapro 10 mg daily for 2-3 months. She has a history of multiple psychiatric medications, including clonazepam and fluoxetine, which were discontinued during . Previous trials of hydroxyzine were ineffective at 25 mg dosing. Patient currently uses marijuana (primarily indica flower) for anxiety and gastrointestinal symptoms. She employs some coping strategies, including grounding techniques and breathing exercises, but continues to experience significant anxiety, particularly at work. KAREL-7 score: 16- Moderate generalized anxiety disorder. - Plan: a. Increase Lexapro to 20 mg daily, take in the morning due to potential sleep disturbances b. Prescribe hydroxyzine pamoate 50 mg BID as needed for anxiety c. Recommend discontinuation of marijuana use due to potential exacerbation of anxiety and gastric symptoms - Advised gradual reduction by 15% per week if choosing to discontinue d. Encourage use of Warheads sour candy as an acute anxiety management technique e. Continue current grounding techniques and breathing exercises f. Follow up with psychiatrist and therapist after discharge from the hospital. (2) Marijuana abuse: Code(s): F12.10 - Cannabis abuse, uncomplicated Status: Acute Assessment and Plan: - Assessment: Patient reports using marijuana from a dispensary, primarily indica flower and sometimes vapes a cart. - Plan: a. Recommend discontinuation of marijuana use due to potential exacerbation of anxiety and gastric symptoms b. Advised gradual reduction by 15% per week if choosing to discontinue c. educated patient on risks of marijuana use on GI and anxiety. d. treatment options discussed. [facility] Data of Consult Date/Time: 09/27/24 11:04 Requesting Physician: Gaurav Donaldson MD Primary Care Provider: Ronel Thornton Consult Narrative Narrative: Kenyatta Moy is a 24 year old female that reports ongoing anxiety symptoms that have persisted despite being on Lexapro 10 mg for 2-3 months without noticeable improvement. She describes a history of anxiety dating back to her teenage years, for which she was previously prescribed multiple medications, including clonazepam and prozac. She reports discontinuing all medications abruptly during , initially feeling relief from being medication-free. However, her anxiety symptoms subsequently returned. Kenyatta notes that her anxiety can escalate to panic attacks, during which she experiences severe nausea and vomiting, making it difficult to take oral medications. She experiences anxiety upon waking and reports occasional sleep disturbances. Her anxiety significantly impacts her daily functioning, particularly at work at [email or web address], which despite being not that awful, inexplicably triggers anxiety symptoms. Kenyatta currently uses marijuana, primarily indica strains in flower form, to manage stomach pain associated with eating. She has a history of using hydroxyzine before work to preemptively manage anxiety. She mentions interest in EMDR therapy and has experimented with tapping techniques, which she found somewhat helpful in regaining her senses during anxiety episodes. The patient reports having a therapist but expresses dissatisfaction with their communication and is actively seeking a new provider. Kenyatta expresses a willingness to increase her Lexapro dosage and try alternative anxiety management strategies. She reports the does have a psychiatric care provider that she sees by cardinal Parsons and agrees to make an appointment to follow up with her after she is discharged from [facility]. discussed how marijuana can sometimes backfire. in some people it causes a cycle of nausea and vomiting, and it can also make anxiety worse instead of better. discussed the need for gradual reduction of marijuana with goal of cessation. patient expressed understanding of education provided and expressed interest in marijuana reduction/cessation. discussed grounding techniques for anxiety such as box breathing and 5-4-3-2-1 senses method. discussed that therapy is the best treatment for anxiety. discussed the risk of benzodiazepine use and the benefit of SSRI use and therapy. discussed war head candy and vicks rub at night for anxiety and grounding during times of high anxiety. discussed benefits and risks of Lexapro and hydroxyzine pamoate. Review of Systems Psychiatric: Psychiatric: Reports anxiety PMFSH Past Medical History Medical History (Updated 09/26/24 @ 07:20 by Cipriano Guadarrama MD) Intractable nausea and vomiting Drug withdrawal seizure History of eating disorder Anxiety Depression Family History Family History Grandparent History of alcoholism Depression Mother History of alcoholism Hypertension Depression Social History Social History Smoking status: Current every day smoker Smokeless tobacco user: other Alcohol intake: never Substance use: current Substance use type: marijuana Last use: 07/18/2024 Do You Feel Safe in your Home?: Yes Lack of Transportation: No Lack of Food: Never True Current Housing: I Have Housing Concerned About Future Housing: No Difficulty Paying Gas/Electric Bills: No Difficulty Paying for Meds: No Currently Unemployed: No Education: Decline to Answer Difficulty w/ Childcare or Family Care: No Living arrangements: with roommate(s) Occupation/Education: unemployed Additional occupation/education comments: not currently working or in school Gender identity (if verbalized by the patient): Female Spiritual care concerns: No Meds Home Medications and Allergies Home Medications ?Medication ?Instructions ?Recorded ?Confirmed ?Type escitalopram oxalate 10 mg tablet 10 mg PO DAILY 07/18/24 09/26/24 History olanzapine 2.5 mg tablet 5 mg PO DAILY 09/23/24 09/26/24 History amoxicillin 875 mg-potassium 1 tablet PO Q12H #5 tabs 09/25/24 09/26/24 Rx clavulanate 125 mg tablet hydrocodone 5 mg-acetaminophen 325 1 tablet PO Q4H PRN Pain Rated 4-6 09/25/24 09/26/24 Rx mg tablet #12 tabs ondansetron 4 mg disintegrating 4 mg PO Q8H PRN nausea and 09/25/24 09/26/24 Rx tablet vomiting #7 tabs hydroxyzine pamoate 25 mg capsule 25 mg PO DAILY PRN anxiety 09/26/24 09/26/24 History Allergies Allergy/AdvReac Type Severity Reaction Status Date / Time No Known Allergies Allergy Verified 09/26/24 02:42 Vital Signs Vital Signs - 24 hr 09/26/24 12:00 09/26/24 14:00 09/26/24 14:26 Temperature 99.5 F Pulse Rate 64 77 Respiratory Rate 20 Blood Pressure 118/81 Pulse Oximetry 99 100 Oxygen Delivery Room Air 09/26/24 16:35 09/26/24 20:00 09/26/24 21:10 Temperature Pulse Rate 69 79 69 Respiratory Rate 20 Blood Pressure Pulse Oximetry 100 Oxygen Delivery Room Air 09/26/24 21:10 09/26/24 22:00 09/26/24 22:36 Temperature 97.6 F Pulse Rate 69 65 Respiratory Rate 18 Blood Pressure 118/76 Pulse Oximetry 99 99 Oxygen Delivery Room Air 09/27/24 00:00 09/27/24 04:00 09/27/24 06:00 Temperature 97.6 F Pulse Rate 65 92 62 Respiratory Rate 16 Blood Pressure 121/72 Pulse Oximetry 100 Oxygen Delivery 09/27/24 08:00 Temperature Pulse Rate Respiratory Rate Blood Pressure Pulse Oximetry Oxygen Delivery Room Air Exam Const: General: cooperative, healthy appearing, comfortable, no acute distress, well developed, alert and awake Nutritional Appearance: average body habitus Orientation/consciousness: oriented to person, oriented to place and oriented to time Limitations: no limitations Psych: Appearance: grossly normal and well kempt Speech and movement: Normal speech and movement present Affect: normal affect Attitude: cooperative Thought process: Normal thought process present Thought content: Yes Normal thought content present Insight: Good insight present (Psych) Judgement: Fair judgement present (Psych) Other: Cooperative, engaged in conversation. Speech is normal rate and rhythm. Thought process is linear and goal-directed. Alert and oriented. Insight: Fair. Patient recognizes the need for therapy and medication management for anxiety. Judgment: Fair. Patient is willing to follow treatment recommendations and make appointments with (already established) psychiatrist and therapist. Results Labs 09/27/24 06:21 09/27/24 06:21 Labs: Short CBC 09/27/24 Range/Units 06:21 WBC 5.3 (4.5-10.0) K/mm3 Hgb 12.0 (12.0-15.0) g/dL Hct 36.2 L (37.0-47.0) % Plt Count 266 (150-375) k/mm3 [facility] 09/27/24 06:21 Sodium 137 Potassium 3.8 Chloride 104 Carbon Dioxide 23 BUN < 2 L Creatinine 0.76 Glucose 81 Calcium 8.8
[2024-09-27] MEDS: SUCRALFATE SUSP 100 MG/ML 10 ML UDC 1000 MG PO (11:32)
--- NOTE | 2024-09-27 12:12 | P.PNIM_ITS ---
Progress Note: A&P Assessment and Plan (1) Intractable nausea and vomiting: Code(s): R11.2 - Nausea with vomiting, unspecified Status: Acute Assessment and Plan: * Patient recently hospitalized for enteritis as evidence by CT scan. * Discharged home yesterday to continue Augmentin p.o., however patient unable to tolerate any oral intake or medications, prompting her return to the emergency room. * Patient receiving IV fluids of LR at 100 mL/hour. * As she cannot tolerate oral intake at this time will provide IV antibiotics of Zosyn 3.375 g q.6 hours * Transition to p.o. as soon as possible * NPO except ice chips * P.r.n. Zofran 4 mg q.4 hours p.r.n. for nausea * Scheduled Reglan 10 mg IV push q.8 hours * Monitor and trend labs and vital signs (2) Cyclical vomiting: Code(s): R11.15 - Cyclical vomiting syndrome unrelated to migraine Status: Acute Assessment and Plan: * Despite counseling for cessation of marijuana use, patient continue to use once discharged home yesterday. * Suspect patient's intractable nausea and vomiting has a component of cyclical vomiting. * Droperidol given in the ER with improvement. * Scheduled Reglan 10 mg q.8 hours. * P.r.n. Zofran 4 mg IV push q.4 hours. * Consider GI consult (3) Marijuana abuse: Code(s): F12.10 - Cannabis abuse, uncomplicated Status: Acute Assessment and Plan: * See 2. (4) Lactic acidosis: Code(s): E87.20 - Acidosis, unspecified Status: Acute Assessment and Plan: * 4.3 on arrival to ER and has trended downward to 2.2 after receiving IV fluids. Suspect degree of dehydration given intractable nausea and vomiting * Continue IV hydration * Monitor and trend labs and vital signs (5) Dehydration: Code(s): E86.0 - Dehydration Status: Acute Assessment and Plan: * See 4. (6) Enteritis: Code(s): K52.9 - Noninfective gastroenteritis and colitis, unspecified Status: Acute Assessment and Plan: * See 1. * Low threshold for repeating advanced imaging with CT scan if symptoms persist. Plan patient recurrent abdominal pain, nausea and vomiting with history smoking Marijuana which can cause Cannabinoid Hyperemesis Syndrome (CHS), patient is instructed to stop smoking marijuana, started patient on Carafate and Levsin to help with nausea and abdominal pain, today patient stats she is feeling better compared to when she arrived, however sometime her anxiety gets so worse, she is taking Lexapro 10mg, will consult psychiatrist for further recommendations, will monitor and follow. Subjective Date/time seen: 09/27/24 12:12 Interval history: Abdominal pain with nausea/vomiting/diarrhea H&P-Narrative: This 24-year-old female patient with past medical history of drug abuse, eating disorder, anxiety, depression, marijuana abuse, cyclical vomiting and he was most recently hospitalized here from September [address] evidenced enteritis and was discharged yesterday returned to the emergency room tonight with complaints of having worsening of her symptoms when she returns home. Patient was discharged home with prescription for Augmentin that she states she has not been able to take due to the acute onset again nausea and vomiting. Patient states she was able to use her marijuana upon return home after discharge. Patient states her pain is in the upper region of the abdomen. She has that been able to identify anything that makes it worse or better. In the emergency room workup was performed that shows stable vital signs, white blood cell count of 10.0 and otherwise normal CBC as well as unremarkable metabolic panel. Lactic acid however was 4.3 and after IV hydration decreased to 2.2. Due to the young age of the patient and no leukocytosis CT scan in the ER was deferred at this time. She was medicated with droperidol, Pepcid and was given famotidine in ER but states she still has a lot of pain and also she cannot keep anything down. Patient denies any fevers upon return home and she denies any additional drug use other than marijuana patient recurrent abdominal pain, nausea and vomiting with history smoking Marijuana which can cause Cannabinoid Hyperemesis Syndrome (CHS), patient is instructed to stop smoking marijuana, started patient on Carafate and Levsin to help with nausea and abdominal pain, today patient stats she is feeling better compared to when she arrived, however sometime her anxiety gets so worse, she is taking Lexapro 10mg, will consult psychiatrist for further recommendations, will monitor and follow. Review of Systems Review of Systems: All systems reviewed & are unremarkable except as noted in HPI and below Exam Narrative: Appears malnourished Patient is comfortable, NAD HEENT: eyes are clear and none icteric ABD: Not distended Lower extremities: no edema SKIN: nonjaundiced Neuro: grossly intact. Objective Data Vital Signs Vital Signs: Vital Signs - 24 hr 09/26/24 14:00 09/26/24 14:26 09/26/24 16:35 Temperature 37.5 C Pulse Rate 77 69 Respiratory Rate 20 Blood Pressure 118/81 Pulse Oximetry 99 100 Oxygen Delivery Room Air 09/26/24 20:00 09/26/24 21:10 09/26/24 21:10 Temperature Pulse Rate 79 69 69 Respiratory Rate 20 Blood Pressure Pulse Oximetry 100 Oxygen Delivery Room Air 09/26/24 22:00 09/26/24 22:36 09/27/24 00:00 Temperature 36.4 C Pulse Rate 65 65 Respiratory Rate 18 Blood Pressure 118/76 Pulse Oximetry 99 99 Oxygen Delivery Room Air 09/27/24 04:00 09/27/24 06:00 09/27/24 08:00 Temperature 36.4 C Pulse Rate 92 62 Respiratory Rate 16 Blood Pressure 121/72 Pulse Oximetry 100 Oxygen Delivery Room Air Intake/Output Intake/Output: Intake & Output 09/24/24 09/25/24 09/26/24 09/27/24 23:59 23:59 23:59 23:59 Intake Total 3870.0 768 Output Total 100 Balance 3770.0 768 Meds/Results Medications: Active Medications Generic Name Dose Route Start Last Admin Trade Name Freq PRN Reason Stop Dose Admin Acetaminophen 650 mg 09/26/24 04:43 Acetaminophen 325 Mg Tablet PO Q4H PRN Mild Pain (1-3) or Fever Lactated Ringer's 1,000 mls @ 100 mls/hr 09/26/24 04:45 09/27/24 00:18 Lr - Lactated Ringers Iv IV CONT 100 mls/hr .Q10H CELINA Administration Piperacillin Sod/Tazobactam 50 mls @ 100 mls/hr 09/26/24 06:00 09/27/24 06:36 Sod 3.375 gm/ Sodium Chloride IVPB Infused Q6HR CELINA Infusion Metoclopramide HCl 10 mg 09/26/24 06:00 09/27/24 06:06 Metoclopramide Hcl Inj 10 Mg/2 Ml Vial IV PUSH 10 mg Q8HR CELINA Administration Ondansetron HCl 4 mg 09/26/24 04:43 09/26/24 20:08 Ondansetron Inj 4 Mg/2 Ml Vial IV PUSH 4 mg Q4H PRN Administration Nausea Sucralfate 1,000 mg 09/26/24 11:30 09/27/24 11:32 Sucralfate Susp 100 Mg/Ml 10 Ml Udc PO 1,000 mg ACHS CELINA Administration Labs Labs: Laboratory Results - last 24 hr 09/27/24 06:21 WBC 5.3 RBC 4.02 L Hgb 12.0 Hct 36.2 L MCV 90.0 MCH 29.9 MCHC 33.1 RDW 12.9 Plt Count 266 MPV 9.8 Sodium 137 Potassium 3.8 Chloride 104 Carbon Dioxide 23 Anion Gap 10 BUN < 2 L Creatinine 0.76 Estim Creat Clear Calc 75 Estimated GFR > 60 Glucose 81 Calcium 8.8 Magnesium 1.7
[2024-09-27] MEDS: ONDANSETRON INJ 4 MG/2 ML VIAL IV PUSH (12:26)
[2024-09-27 14:00] VITALS: BP 111/71; PULSE 69; RESP 14; TEMP 36.9; O2SAT 100
--- NOTE | 2024-09-27 15:21 | P.DS_ITS ---
DS: Admitting Diagnosis Discharge Date 09/27/24 Admitting Diagnosis Abdominal pain with nausea/vomiting/diarrhea DS: Discharge Diagnosis Discharge Diagnosis (1) Intractable nausea and vomiting: Code(s): R11.2 - Nausea with vomiting, unspecified Status: Acute Assessment and Plan: * Patient recently hospitalized for enteritis as evidence by CT scan. * Discharged home yesterday to continue Augmentin p.o., however patient unable to tolerate any oral intake or medications, prompting her return to the emergency room. * Patient receiving IV fluids of LR at 100 mL/hour. * As she cannot tolerate oral intake at this time will provide IV antibiotics of Zosyn 3.375 g q.6 hours * Transition to p.o. as soon as possible * NPO except ice chips * P.r.n. Zofran 4 mg q.4 hours p.r.n. for nausea * Scheduled Reglan 10 mg IV push q.8 hours * Monitor and trend labs and vital signs (2) Cyclical vomiting: Code(s): R11.15 - Cyclical vomiting syndrome unrelated to migraine Status: Acute Assessment and Plan: * Despite counseling for cessation of marijuana use, patient continue to use once discharged home yesterday. * Suspect patient's intractable nausea and vomiting has a component of cyclical vomiting. * Droperidol given in the ER with improvement. * Scheduled Reglan 10 mg q.8 hours. * P.r.n. Zofran 4 mg IV push q.4 hours. * Consider GI consult (3) Marijuana abuse: Code(s): F12.10 - Cannabis abuse, uncomplicated Status: Acute Assessment and Plan: * See 2. (4) Lactic acidosis: Code(s): E87.20 - Acidosis, unspecified Status: Acute Assessment and Plan: * 4.3 on arrival to ER and has trended downward to 2.2 after receiving IV fluids. Suspect degree of dehydration given intractable nausea and vomiting * Continue IV hydration * Monitor and trend labs and vital signs (5) Dehydration: Code(s): E86.0 - Dehydration Status: Acute Assessment and Plan: * See 4. (6) Enteritis: Code(s): K52.9 - Noninfective gastroenteritis and colitis, unspecified Status: Acute Assessment and Plan: * See 1. * Low threshold for repeating advanced imaging with CT scan if symptoms persist. Plan patient recurrent abdominal pain, nausea and vomiting with history smoking Marijuana which can cause Cannabinoid Hyperemesis Syndrome (CHS), patient is instructed to stop smoking marijuana, started patient on Carafate and Levsin to help with nausea and abdominal pain, today patient stats she is feeling better compared to when she arrived, however sometime her anxiety gets so worse, she is taking Lexapro 10mg, will consult psychiatrist for further recommendations, will monitor and follow. DS: Summary Hospital Course Hospital Course: patient recurrent abdominal pain, nausea and vomiting with history smoking Marijuana which can cause Cannabinoid Hyperemesis Syndrome (CHS), patient is instructed to stop smoking marijuana, started patient on Carafate and Levsin to help with nausea and abdominal pain, today patient stats she is feeling better compared to when she arrived, however sometime her anxiety gets so worse, she is taking Lexapro 10mg, will consult psychiatrist for further recommendations, will monitor and follow. today patient symptoms have improved, and patient was seen by the psychiatrist and increased patient Lexapro to 20mg from 10mg, patient is instructed to wean herself of marijuana and avoid it, patient is clinically stable, will discharge patient home today. Time Spent with Patient Time attestation: Total time spent providing and/or coordinating discharge services: Exam Narrative: Appears malnourished Patient is comfortable, NAD HEENT: eyes are clear and none icteric ABD: Not distended Lower extremities: no edema SKIN: nonjaundiced Neuro: grossly intact. DS: Data Data Completed and Pending Labs on day of discharge: Labs from last 24 hours 09/27/24 06:21 WBC 5.3 RBC 4.02 L Hgb 12.0 Hct 36.2 L MCV 90.0 MCH 29.9 MCHC 33.1 RDW 12.9 Plt Count 266 MPV 9.8 Sodium 137 Potassium 3.8 Chloride 104 Carbon Dioxide 23 Anion Gap 10 BUN < 2 L Creatinine 0.76 Estim Creat Clear Calc 75 Estimated GFR > 60 Glucose 81 Calcium 8.8 Magnesium 1.7 Discharge Plan Discharge Attending physician on discharge: Gaurav Donaldson Consulting providers: Dutch Carroll; Tiana Jones; Aric Mares; Bertram Yousif; Bronwyn Jones Discharging Clinician: Gaurav Donaldson Patient Disposition: Home Activity: as tolerated Diet: heart healthy Discharge Instructions: patient is instructed to follow instruction from her psychiatrist seen in the hospital, follow up as scheduled, patient is instructed to follow up with her primary care provider as soon as possible, patient is instructed to wean herself of marijuana, patient is instructed if any symptoms worsen to go to nearest ER. Patient Instructions: Antibiotic Form, Gastroenteritis (DC), Cannabis Use Disorder (DC), Cyclic Vomiting Syndrome (DC), Suicide Prevention (DC) Patient Language: Divehi Stand Alone Forms: General Discharge Information Follow-up/Referrals: NorbertoRonel [Other] Rick Camarena MD [Physician, Psychiatry] Discharge Medications: New sucralfate 100 mg/mL Suspension 1,000 mg PO ACHS Qty: 1000 0RF Continued olanzapine 2.5 mg tablet 5 mg PO DAILY amoxicillin-pot clavulanate 875-125 mg tablet 1 tablet PO Q12H Qty: 5 0RF Rx Instructions: last dose 09/27 at 9 pm hydrocodone-acetaminophen 5-325 mg Tablet 1 tablet PO Q4H PRN (Reason: Pain Rated 4-6) Qty: 12 0RF ondansetron 4 mg tablet,disintegrating 4 mg PO Q8H PRN (Reason: nausea and vomiting) Qty: 7 0RF Changed hydroxyzine pamoate 25 mg capsule 50 mg PO BIDWM PRN (Reason: anxiety) Qty: 60 0RF escitalopram oxalate 10 mg tablet 20 mg PO DAILY Qty: 60 0RF Date of admission: 09/26/24 04:43 Primary Care Provider: AlbertRonel Admitting Provider: Gaurav Donaldson Attending physician on admission: Gaurav Donaldson Condition: Stable
== END 2024-09-27 16:00 | disposition home or self-care (01) ==
LOC: ANHED 04:28 → ANH3MEDSUR 06:32
PROVIDERS: Admitting Provider Family Medicine; Emergency Provider Student in an Organized Health Care Education/Training Program; Visit Provider Family Medicine
DX: R11.2 Nausea with vomiting, unspecified (principal); R11.15 Cyclical vomiting syndrome unrelated to migraine; F41.8 Other specified anxiety disorders; F12.10 Cannabis abuse, uncomplicated; E87.20 Acidosis, unspecified; E86.0 Dehydration; K52.9 Noninfective gastroenteritis and colitis, unspecified
CPT/HCPCS: 36415; 80048; 80053; 83605; 83690; 83735; 85025; 85027; 93005; 96361; 96365; 96366; 96367; 96374; 96375; 96376; 99285; A9270; G0378; J1790; J2270; J2405; J2543; J2765; J3480; J7040; J7120

== ENCOUNTER 2024-10-19 22:49 | Observation (INO) | payer OTHER, SELFPAY ==
--- NOTE | ~2024-10-19 | CT_ITS ---
EXAMINATION: CT abdomen pelvis w con DATE: 10/20/2024 11:07 INDICATION: Nausea and vomiting TECHNIQUE: Computed tomography (CT) of the abdomen and pelvis was performed without intravenous contrast. The dose-length product was 187.18 mGy-cm. Automated exposure control and iterative reconstruction technique were employed. COMPARISON: 09/22/2024. FINDINGS: Lung bases are unremarkable. Heart size normal. No significant pleural or pericardial effusion. The liver, spleen, pancreas, adrenal glands and kidneys are unremarkable. Gallbladder is present. There is mural thickening and enhancement of the transverse colon, compatible with colitis, most likely infectious or inflammatory. There is moderate retained fecal material in the distal sigmoid colon and rectum. There is an IUD in a retroverted uterus. There is a 3 cm right adnexal cyst, likely ovarian. No free air or free fluid. No acute osseous abnormality. No significant vascular abnormality. No lymphadenopathy. No acute osseous abnormality. IMPRESSION: 1. Prominent mural thickening and enhancement of the transverse colon, compatible with colitis, most likely infectious or inflammatory. 2: Right adnexal cyst measuring 3 cm, likely ovarian. Reviewed, dictated and finalized at location O. IMPRESSION: 1. Prominent mural thickening and enhancement of the transverse colon, compatib le with colitis, most likely infectious or inflammatory. 2: Right adnexal cyst measuring 3 cm, likely ovarian.
[2024-10-19 22:53] VITALS: BP 149/116; PULSE 110; RESP 24; TEMP 36.8; O2SAT 100
[2024-10-19 23:17] VITALS: BP 148/91; BP 156/108; PULSE 80; PULSE 94
[2024-10-19 23:20] LABS: Hematocrit 36.1 % (37.0-47.0); Hemoglobin 12.0 g/dL (12.0-15.0); Immature Granulocyte Percent A 0.4 % (0-0.5); Immature Platelet Fraction Pct 2.1 % (0.9-11.2); Lymphocytes Absolute Auto 6.10 K/mm3 (0.9-3.2); Mean Corpuscular HGB Conc 33.2 g/dl (32-36); Mean Corpuscular Hemoglobin 29.1 pg (26-34); Mean Corpuscular Volume 87.6 fl (80-100); Nucleated Red Blood Cells Absolute Auto 0.000 K/mm3 (0.0-0.012); Nucleated Red Blood Cells Perc 0.0 % (0.0-0.2); Platelet Count Result 356 k/mm3 (150-375); Red Blood Count 4.12 M/mm3 (4.2-5.4); White Blood Count 17.0 K/mm3 (4.5-10.0)
[2024-10-19 23:34] LABS: Alanine Aminotransferase 21 U/L (6-35); Albumin Level 4.6 g/dL (3.5-5.1); Alkaline Phosphatase 73 U/L (38-126); Anion Gap 16 mmol/L (4-12); Aspartate Amino Transferase 37 U/L (14-36); Bilirubin,Total 0.3 mg/dL (0.2-1.3); Blood Urea Nitrogen 17 mg/dL (7-17); Calcium 9.7 mg/dL (8.4-10.2); Carbon Dioxide 19 mmol/L (22-30); Chloride 103 mmol/L (98-107); Estimated CRCL calculation 56 ml/min; Estimated Glomerular Filt Rate > 60; Glucose 125 mg/dL (65-110); Lipase 155 U/L (23-300); Potassium 3.2 mmol/L (3.4-5.0); Sodium 138 mmol/L (137-145); Total Protein 7.6 g/dL (6.3-8.2)
[2024-10-19] MEDS: SODIUM CHLORIDE 0.9% IV 1,000 ML 999 ML IV CONT (23:44)
[2024-10-19] MEDS: FAMOTIDINE 20 MG/2 ML VIAL IV PUSH (23:45)
[2024-10-19] MEDS: PROCHLORPERAZINE EDISYLATE 10 MG/2 ML VIAL IV PUSH (23:45)
--- OUTSIDE RECORDS SUMMARY | 2024-10-19 23:45 | XMS_ITS | Clinical Summary ---
Author Organization [facility] Address [address] [place] [address] Care Team Providers Care Computer Systems Information Director Name Role Phone Ronel Thornton DO Primary Care Provider [phone] Ronel Thornton DO Unavailable [phone] Source Comments [facility],non-owned Affiliates and Associated Physician Practices is amultiple site organization consisting of ambulatory clinics and hospital sitesin [place] and [place]. This disclosure is being madepursuant to the Care Everywhere program and may not contain all information available regarding this patient. Last updated 17.[facility] Allergies No known active allergies Medications * [...] as needed for Nausea/Vomiting 10 suppository Active famotidine (Pepcid) 20 MG tablet Take [...] needed for Nausea/Vomiting 90 tablet 1 Active OLANZapine (ZyPREXA) 2.5 MG tablet Take 1 (one) tablet by mouth once daily as needed (anxiety, panic) 30 tablet Active escitalopram (Lexapro) 10 MG tablet Take 1.5 (one and one-half) tablets by mouth once daily 45 tablet 025 Active OLANZapine (ZyPREXA) 5 MG tablet Take 1 (one) tablet by mouth at bedtime 30 tablet Active propranolol (Inderal) 10 MG tablet Take 1 (one) tablet by mouth 2 times daily as needed (anxiety) 60 tablet Active hydrOXYzine HCl (Atarax) 50 MG tabletIndicati [...] 024 2023 Disconti nued(No Pharm No AVS) propranolol (Inderal) 10 MG tablet Take 1 (one) tablet by mouth 2 times daily as needed for Hypertension 60 tablet 1 025 2024 Disconti nued(Reo rder) escitalopram (Lexapro) 10 MG tablet Take 1 (one) tablet by mouth once daily 30 tablet 2 025 2024 Disconti nued(Reo rder) OLANZapine (ZyPREXA) 5 MG tablet Take 1 (one) tablet by mouth at bedtime 90 tablet 025 2024 Disconti nued(Reo rder) OLANZapine (ZyPREXA) 2.5 MG tablet Take 1 (one) tablet by mouth once daily as needed (anxiety, panic) 30 tablet 1 025 2024 Leatha germain(Reo rder) Active Problems Problem Noted Date Diagnosed [...] 01/18/2020 Assessment & Plan (01/08/2021 3:06 PM DRY KILN LOADER): Assessment: Major depressive disorder, generalized anxiety disorder and substance abuse disorder. Plan: - klonopin and neurontin are all habit forming, concerns they are addictive, plan to discuss administration assistant goal of weaning as outpatient - must stop all alcohol and MJ - Increased Prozac to 40 - Increased zyprexa to 15 - Melatonin 6mg QHS for sleep - avoid narcotics - taper off zyprexa as outpatient per psychiatry recs Assessment & Plan (01/07/2021 4:50 PM DRY KILN LOADER): Assessment: Major depressive disorder, generalized anxiety disorder [...] recs Assessment & Plan (01/06/2021 5:55 PM DRY KILN LOADER): Assessment: Major depressive disorder, generalized anxiety disorder [...] slowly. Assessment & Plan (04/07/2020 6:45 PM DRY KILN LOADER): Assessment: Hx of major depressive disorder and generalized anxiety disorder. Pt has been seen by psychiatry and psychology, now improved since starting/optimizing zyprexa QHS, clonazepam TID, and prozac QD. Plan: - Prozac 30 mg QD (dose of 30 mg started on 03/09/20, Prozac initially began 02/07) - Zyprexa 5 mg QHS - Klonopin 0.5mg TID Assessment & Plan (04/06/2020 3:54 PM DRY KILN LOADER): Assessment: Hx of major depressive disorder and [...] TID Assessment & Plan (04/05/2020 10:49 AM DRY KILN LOADER): Assessment: Hx of major depressive disorder and [...] TID Assessment & Plan (04/04/2020 10:23 AM DRY KILN LOADER): Assessment: Hx of major depressive disorder and [...] TID Assessment & Plan (04/03/2020 6:30 PM DRY KILN LOADER): Assessment: Hx of major depressive disorder and [...] TID Assessment & Plan (04/01/2020 11:15 AM DRY KILN LOADER): Assessment: Hx of major depressive disorder and generalized anxiety disorder. Pt seen by psychiatry on admission and was started elavil, but continued to have anxiety. Elavil was discontinued due to persistent tachycardia and hypotension. [facility], she was started on zyprexa [...] dose) Assessment & Plan (03/31/2020 10:07 AM DRY KILN LOADER): Assessment: Hx of major depressive disorder and [...] dose) Assessment & Plan (03/30/2020 2:24 PM DRY KILN LOADER): Assessment: Hx of major depressive disorder and [...] dose) Assessment & Plan (03/29/2020 6:50 AM DRY KILN LOADER): Assessment: Hx of major depressive disorder and [...] dose) Assessment & Plan (03/27/2020 10:30 AM DRY KILN LOADER): Assessment: Hx of major depressive disorder and [...] dose) Assessment & Plan (03/26/2020 11:15 AM DRY KILN LOADER): Assessment: Hx of major depressive disorder and generalized anxiety disorder. Pt seen by psychiatry on admission and was started elavil, but continued to have anxiety. Elavil was discontinued due to persistent tachycardia and hypotension. Based on recommendations from psychiat[facility] and [facility], she was started on zyprexa [...] dose) Assessment & Plan (03/25/2020 8:58 AM DRY KILN LOADER): Assessment: Hx of major depressive disorder and [...] dose) Assessment & Plan (03/24/2020 6:44 AM DRY KILN LOADER): Assessment: Hx of major depressive disorder and [...] dose) Assessment & Plan (03/23/2020 12:19 PM DRY KILN LOADER): Assessment: Hx of major depressive disorder and [...] dose) Assessment & Plan (03/22/2020 10:47 AM DRY KILN LOADER): Assessment: Hx of major depressive disorder and [...] recommendations) Assessment & Plan (03/21/2020 3:11 PM DRY KILN LOADER): Assessment: Hx of major depressive disorder and [...] mg. Assessment & Plan (03/20/2020 10:31 AM DRY KILN LOADER): Assessment: Hx of major depressive disorder and [...] 03/21. Assessment & Plan (03/19/2020 10:38 AM DRY KILN LOADER): Assessment: Hx of major depressive disorder and [...] withdrawal Assessment & Plan (03/18/2020 12:58 PM DRY KILN LOADER): Assessment: Hx of major depressive disorder and [...] anxiety Assessment & Plan (03/17/2020 10:33 AM DRY KILN LOADER): Assessment: Hx of major depressive disorder and [...] appreciated Assessment & Plan (03/16/2020 2:24 PM DRY KILN LOADER): Assessment: Hx of major depressive disorder and [...] recommendations Assessment & Plan (03/15/2020 11:11 AM DRY KILN LOADER): Assessment: Hx of major depressive disorder and [...] anxiety Assessment & Plan (03/14/2020 6:28 AM DRY KILN LOADER): Assessment: Hx of major depressive disorder and [...] anxiety Assessment & Plan (03/13/2020 6:28 AM DRY KILN LOADER): Assessment: Hx of major depressive disorder and [...] anxiety Assessment & Plan (03/12/2020 11:35 AM DRY KILN LOADER): Assessment: Hx of major depressive disorder and [...] anxiety Assessment & Plan (03/11/2020 12:43 PM DRY KILN LOADER): Assessment: Hx of major depressive disorder and [...] anxiety Assessment & Plan (03/10/2020 6:11 AM DRY KILN LOADER): Assessment: Hx of major depressive disorder and [...] anxiety Assessment & Plan (03/09/2020 6:24 AM DRY KILN LOADER): Assessment: Hx of major depressive disorder and [...] anxiety Assessment & Plan (03/08/2020 10:51 AM DRY KILN LOADER): Assessment: Hx of major depressive disorder and [...] anxiety Assessment & Plan (03/07/2020 9:15 AM DRY KILN LOADER): Assessment: Hx of major depressive disorder and [...] recommendations -Develop daily schedule with assistance of infant childcare provider-Alma Assessment & Plan (03/06/2020 10:09 AM DRY KILN LOADER): Assessment: Hx of major depressive disorder and [...] anxiety Assessment & Plan (03/05/2020 9:56 AM DRY KILN LOADER): Assessment: Hx of major depressive disorder and [...] anxiety Assessment & Plan (03/04/2020 12:58 PM DRY KILN LOADER): Assessment: Hx of major depressive disorder and [...] anxiety Assessment & Plan (03/03/2020 3:16 PM DRY KILN LOADER): Assessment: Hx of major depressive disorder and [...] anxiety Assessment & Plan (03/01/2020 12:04 PM DRY KILN LOADER): Assessment: Hx of major depressive disorder and [...] anxiety Assessment & Plan (02/29/2020 12:53 PM DRY KILN LOADER): Assessment: Hx of major depressive disorder and [...] anxiety Assessment & Plan (02/28/2020 9:22 AM DRY KILN LOADER): Assessment: Hx of major depressive disorder and [...] anxiety Assessment & Plan (02/27/2020 10:27 AM DRY KILN LOADER): Assessment: Hx of major depressive disorder and [...] negative Assessment & Plan (02/26/2020 11:12 AM DRY KILN LOADER): Assessment: Hx of major depressive disorder and [...] pending Assessment & Plan (02/25/2020 9:33 AM DRY KILN LOADER): Assessment: Hx of major depressive disorder and [...] pending Assessment & Plan (02/24/2020 6:51 AM DRY KILN LOADER): Assessment: Hx of major depressive disorder and [...] pending Assessment & Plan (02/23/2020 10:19 AM DRY KILN LOADER): Assessment: Hx of major depressive disorder and [...] pending Assessment & Plan (02/22/2020 11:07 AM DRY KILN LOADER): Assessment: Hx of major depressive disorder and [...] QHS Assessment & Plan (02/21/2020 10:54 AM DRY KILN LOADER): Assessment: History of major depressive disorder and [...] tablet Assessment & Plan (02/20/2020 11:33 AM DRY KILN LOADER): Assessment: History of major depressive disorder and [...] tablet Assessment & Plan (02/19/2020 3:05 PM DRY KILN LOADER): Assessment: History of major depressive disorder and [...] tablet Assessment & Plan (02/18/2020 10:13 AM DRY KILN LOADER): Assessment: History of major depressive disorder and [...] tablet Assessment & Plan (02/17/2020 12:26 PM DRY KILN LOADER): Assessment: History of major depressive disorder and [...] tablet Assessment & Plan (02/16/2020 1:14 PM DRY KILN LOADER): Assessment: History of major depressive disorder and [...] tablet Assessment & Plan (02/15/2020 12:31 PM DRY KILN LOADER): Assessment: History of major depressive disorder and [...] tablet Assessment & Plan (02/14/2020 2:24 PM DRY KILN LOADER): Assessment: History of major depressive disorder and [...] tablet Assessment & Plan (02/13/2020 12:00 PM DRY KILN LOADER): Assessment: History of major depressive disorder and [...] tablet Assessment & Plan (02/12/2020 11:20 AM DRY KILN LOADER): Assessment: History of major depressive disorder and [...] 5 mg QD; will consider increasing on / per Adolescent recs - Clonazapam wafer TID - Zyprexa 2.5 mg tablet Assessment & Plan (02/11/2020 11:54 AM DRY KILN LOADER): Assessment: History of major depressive disorder and [...] tablet Assessment & Plan (02/10/2020 12:09 PM DRY KILN LOADER): Assessment: History of major depressive disorder and [...] tablet Assessment & Plan (02/09/2020 11:50 AM DRY KILN LOADER): Assessment: History of major depressive disorder and [...] atarax Assessment & Plan (02/08/2020 12:54 PM DRY KILN LOADER): Assessment: History of major depressive disorder and [...] atarax Assessment & Plan (02/07/2020 11:47 AM DRY KILN LOADER): Assessment: History of major depressive disorder and [...] atarax Assessment & Plan (02/06/2020 8:12 AM DRY KILN LOADER): Assessment: History of major depressive disorder and [...] atarax Assessment & Plan (02/05/2020 9:12 AM DRY KILN LOADER): Assessment: History of major depressive disorder and [...] atarax Assessment & Plan (02/04/2020 12:43 PM DRY KILN LOADER): Assessment: History of major depressive disorder and [...] atarax Assessment & Plan (02/03/2020 2:28 PM DRY KILN LOADER): Assessment: History of major depressive disorder and [...] atarax Assessment & Plan (02/02/2020 4:02 PM DRY KILN LOADER): Assessment: History of major depressive disorder and [...] atarax Assessment & Plan (02/01/2020 12:12 PM DRY KILN LOADER): Assessment: History of major depressive disorder and [...] atarax Assessment & Plan (01/31/2020 1:04 PM DRY KILN LOADER): Assessment: History of major depressive disorder and [...] atarax Assessment & Plan (01/30/2020 10:30 AM DRY KILN LOADER): Assessment: History of major depressive disorder and [...] atarax Assessment & Plan (01/29/2020 9:40 PM DRY KILN LOADER): Assessment: History of major depressive disorder and [...] atarax Assessment & Plan (01/28/2020 11:59 AM DRY KILN LOADER): Assessment: History of major depressive disorder and [...] lunch Assessment & Plan (01/27/2020 3:57 PM DRY KILN LOADER): Assessment: History of major depressive disorder and [...] lunch Assessment & Plan (01/26/2020 6:01 PM DRY KILN LOADER): Assessment: History of major depressive disorder and [...] atarax Assessment & Plan (01/25/2020 2:56 PM DRY KILN LOADER): Assessment: History of major depressive disorder and [...] PO. Assessment & Plan (01/24/2020 8:11 AM DRY KILN LOADER): Assessment: History of major depressive disorder and [...] (02/22/20) Assessment & Plan (01/23/2020 7:09 AM DRY KILN LOADER): Assessment: History of major depressive disorder and [...] (02/22/20) Assessment & Plan (01/22/2020 7:52 AM DRY KILN LOADER): Assessment: History of major depressive disorder and [...] (02/22/20) Assessment & Plan (01/21/2020 7:40 AM DRY KILN LOADER): Assessment: History of major depressive disorder and [...] (02/22/20) Assessment & Plan (01/20/2020 7:36 AM DRY KILN LOADER): Assessment: History of major depressive disorder and [...] (02/22/20) Assessment & Plan (01/19/2020 7:22 AM DRY KILN LOADER): Assessment: History of major depressive disorder and [...] (02/22/20) Assessment & Plan (01/18/2020 4:35 PM DRY KILN LOADER): Assessment: History of major depressive disorder and [...] range. Assessment & Plan (04/08/2020 1:31 PM DRY KILN LOADER): Assessment: Malnutrition is secondary to ARFID, SMA [...] PT Assessment & Plan (04/07/2020 2:52 PM DRY KILN LOADER): Assessment: Malnutrition is secondary to ARFID, SMA [...] PT Assessment & Plan (04/07/2020 6:44 PM DRY KILN LOADER): Assessment: Marlee is a 19 year old [...] follow up with adolescent medicine on 04/18, [facility] on 05/02, and and scheduling Psych intake visit SOCIAL: - General medicine team spoke with and updated mother on 04/06 LABS: daily urine spec gravity, BMP/Mg/Phos Q / Assessment & Plan (04/06/2020 6:45 PM DRY KILN LOADER): Assessment: Marlee is a 19 year old [...] spec gravity, BMP/Mg/Phos Q Assessment & Plan (04/05/2020 3:22 PM DRY KILN LOADER): Assessment: Malnutrition is secondary to ARFID, SMA [...] PT Assessment & Plan (04/05/2020 10:49 AM DRY KILN LOADER): Assessment: Marlee is a 19 year old [...] / Assessment & Plan (04/04/2020 3:59 PM DRY KILN LOADER): Assessment: Malnutrition is secondary to ARFID, SMA [...] daily Assessment & Plan (04/04/2020 10:21 AM DRY KILN LOADER): Assessment: Marlee is a 19 year old [...] / Assessment & Plan (04/03/2020 12:59 PM DRY KILN LOADER): Assessment: Marlee is a 19 year old [...] daily Assessment & Plan (04/02/2020 4:19 PM DRY KILN LOADER): Assessment: Marlee is a 19 year old [...] daily Assessment & Plan (04/01/2020 11:55 AM DRY KILN LOADER): Assessment: Malnutrition is secondary to ARFID and [...] daily Assessment & Plan (04/01/2020 11:15 AM DRY KILN LOADER): Assessment: Marlee is a 19 year old [...] daily Assessment & Plan (03/31/2020 12:05 PM DRY KILN LOADER): Assessment: Malnutrition is secondary to ARFID and [...] daily Assessment & Plan (03/31/2020 10:06 AM DRY KILN LOADER): Assessment: Marlee is a 19 year old [...] daily Assessment & Plan (03/30/2020 2:24 PM DRY KILN LOADER): Assessment: Marlee is a 19 year old [...] daily Assessment & Plan (03/29/2020 10:40 AM DRY KILN LOADER): Assessment: Marlee is a 19 year old [...] daily Assessment & Plan (03/28/2020 12:29 PM DRY KILN LOADER): Assessment: Marlee is a 19 year old with history of constipation, anxiety, and depression admitted for dehydration and functional pain with restrictive eating patterns related to anxiety. 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 If Ryenaldo refuses, may call security and use soft [...] daily Assessment & Plan (03/27/2020 10:34 AM DRY KILN LOADER): Assessment: Marlee is a 19 year old [...] daily Assessment & Plan (03/26/2020 11:20 AM DRY KILN LOADER): Assessment: Marlee is a 19 year old [...] daily Assessment & Plan (03/25/2020 12:30 PM DRY KILN LOADER): Assessment: Marlee is a 19 year old [...] daily Assessment & Plan (03/24/2020 5:02 PM DRY KILN LOADER): Assessment: Malnutrition is secondary to ARFID and [...] anxiety Assessment & Plan (03/24/2020 11:19 AM DRY KILN LOADER): Assessment: Marlee is a 19 year old [...] daily Assessment & Plan (03/23/2020 12:20 PM DRY KILN LOADER): Assessment: Marlee is a 19 year old [...] daily Assessment & Plan (03/22/2020 12:20 PM DRY KILN LOADER): Assessment: Marlee is a 19 year old [...] inability to supervise meals. HEME/ONC: Mircocytic anemia 2 malnutrition. Iron studies from 02/27/20-Iron 66, TIBC [...] daily Assessment & Plan (03/21/2020 3:10 PM DRY KILN LOADER): Assessment: Marlee is a 19 year old [...] Trigylcerides 3 times weekly (, , Sun) - Okay to space morning meds [...] 03/15/2020. Assessment & Plan (03/20/2020 10:32 AM DRY KILN LOADER): Assessment: Marlee is a 19 year old [...] 03/15/2020. Assessment & Plan (03/19/2020 10:37 AM DRY KILN LOADER): Assessment: Marlee is a 19 year old [...] 03/15/2020. Assessment & Plan (03/18/2020 1:00 PM DRY KILN LOADER): Assessment: Marlee is a 19 year old [...] 03/15/2020. Assessment & Plan (03/17/2020 10:36 AM DRY KILN LOADER): Assessment: Marlee is a 19 year old [...] 03/15/2020. Assessment & Plan (03/16/2020 2:10 PM DRY KILN LOADER): Assessment: aMrlee is a 19 year old [...] 03/15/2020. Assessment & Plan (03/15/2020 11:10 AM DRY KILN LOADER): Assessment: Marlee is a 19 year old [...] 03/15/2020 Assessment & Plan (03/14/2020 9:53 AM DRY KILN LOADER): Assessment: Marlee is a 19 year old [...] 03/15/2020 Assessment & Plan (03/13/2020 9:39 AM DRY KILN LOADER): Assessment: Marlee is a 19 year old [...] week Assessment & Plan (03/12/2020 11:35 AM DRY KILN LOADER): Assessment: Marlee is a 19 year old [...] week Assessment & Plan (03/11/2020 12:43 PM DRY KILN LOADER): Assessment: Marlee is a 19 year old [...] week Assessment & Plan (03/10/2020 9:12 AM DRY KILN LOADER): Assessment: Marlee is a 19 year old [...] in Assessment & Plan (03/09/2020 10:22 AM DRY KILN LOADER): Assessment: Marlee is a 19 year old [...] in Assessment & Plan (03/08/2020 10:52 AM DRY KILN LOADER): Assessment: Marlee is a 19 year old [...] in Assessment & Plan (03/07/2020 9:18 AM DRY KILN LOADER): Assessment: Marlee is a 19 year old [...] in Assessment & Plan (03/06/2020 10:09 AM DRY KILN LOADER): Assessment: Marlee is a 19 year old [...] in Assessment & Plan (03/05/2020 9:56 AM DRY KILN LOADER): Assessment: Marlee is a 19 year old [...] in Assessment & Plan (03/04/2020 12:58 PM DRY KILN LOADER): Assessment: Marlee is a 19 year old [...] A/P Assessment & Plan (03/03/2020 3:15 PM DRY KILN LOADER): Assessment: Marlee is a 19 year old [...] A/P Assessment & Plan (03/02/2020 12:06 PM DRY KILN LOADER): Assessment: Marlee is a 19 year old [...] A/P Assessment & Plan (03/01/2020 12:05 PM DRY KILN LOADER): Assessment: Marlee is a 19 year old [...] A/P Assessment & Plan (02/29/2020 12:52 PM DRY KILN LOADER): Assessment: Marlee is a 19 year old [...] A/P Assessment & Plan (02/28/2020 9:12 AM DRY KILN LOADER): Assessment: Marlee is a 19 year old [...] A/P Assessment & Plan (02/27/2020 10:03 AM DRY KILN LOADER): Assessment: Marlee is a 19 year old [...] A/P Assessment & Plan (02/26/2020 11:12 AM DRY KILN LOADER): Assessment: Marlee is a 19 year old [...] A/P Assessment & Plan (02/25/2020 9:32 AM DRY KILN LOADER): Assessment: Marlee is a 19 year old [...] A/P Assessment & Plan (02/24/2020 10:42 AM DRY KILN LOADER): Assessment: Marlee is a 19 year old [...] A/P Assessment & Plan (02/23/2020 10:22 AM DRY KILN LOADER): Assessment: Marlee is a 19 year old [...] A/P Assessment & Plan (02/22/2020 11:25 AM DRY KILN LOADER): Assessment: Marlee is a 19 year old [...] A/P Assessment & Plan (02/21/2020 10:54 AM DRY KILN LOADER): Assessment: Marlee is a 19 year old [...] Trigylcerides 3 times weekly (Tues, Thurs, Sat) - Nexium 20 mg BID, Vit [...] A/P Assessment & Plan (02/20/2020 11:31 AM DRY KILN LOADER): Assessment: Marlee is a 19 year old [...] A/P Assessment & Plan (02/19/2020 3:04 PM DRY KILN LOADER): Assessment: Marlee is a 19 year old [...] TPN. Assessment & Plan (02/18/2020 10:14 AM DRY KILN LOADER): Assessment: Marlee is a 19 year old [...] Sat) Assessment & Plan (02/17/2020 12:30 PM DRY KILN LOADER): Assessment: Marlee is a 19 year old [...] pending Assessment & Plan (02/16/2020 2:29 PM DRY KILN LOADER): Assessment: Marlee is a 19 year old [...] pending Assessment & Plan (02/15/2020 12:33 PM DRY KILN LOADER): Assessment: Marlee is a 19 year old [...] pending Assessment & Plan (02/14/2020 2:23 PM DRY KILN LOADER): Assessment: Marlee is a 19 year old [...] pending Assessment & Plan (02/13/2020 11:59 AM DRY KILN LOADER): Assessment: Marlee is a 19 year old [...] gastric emptying study for next week (02/14). Malree has also had persistently low Hg [...] pending Assessment & Plan (02/12/2020 11:49 AM DRY KILN LOADER): Assessment: Marlee is a 19 year old [...] recs Assessment & Plan (02/11/2020 11:56 AM DRY KILN LOADER): Assessment: Marlee is a 19 year old [...] recs Assessment & Plan (02/10/2020 12:11 PM DRY KILN LOADER): Assessment: Marlee is a 19 year old [...] SG) Assessment & Plan (02/09/2020 11:49 AM DRY KILN LOADER): Assessment: Marlee is a 19 year old [...] SG) Assessment & Plan (02/08/2020 12:54 PM DRY KILN LOADER): Assessment: Marlee is a 19 year old [...] recs. Assessment & Plan (02/07/2020 12:06 PM DRY KILN LOADER): Assessment: Marlee is a 19 year old [...] SG) Assessment & Plan (02/06/2020 8:12 AM DRY KILN LOADER): Assessment: Marlee is a 19 year old [...] SG) Assessment & Plan (02/05/2020 9:12 AM DRY KILN LOADER): Assessment: Marlee is a 19 year old [...] TG) Assessment & Plan (02/04/2020 12:52 PM DRY KILN LOADER): Assessment: Marlee is a 19 year old [...] TG) Assessment & Plan (02/03/2020 2:38 PM DRY KILN LOADER): Assessment: Marlee is a 19 year old [...] TG) Assessment & Plan (02/02/2020 4:02 PM DRY KILN LOADER): Assessment: Marlee is a 19 year old [...] QOD Assessment & Plan (02/01/2020 12:08 PM DRY KILN LOADER): Assessment: Marlee is a 19 year old [...] RBCs. Assessment & Plan (01/31/2020 1:05 PM DRY KILN LOADER): Assessment: Marlee is a 19 year old [...] hematuria Assessment & Plan (01/30/2020 10:30 AM DRY KILN LOADER): Assessment: Marlee is a 19 year old [...] 10.2 Assessment & Plan (01/29/2020 9:39 PM DRY KILN LOADER): Assessment: Marlee is a 19 year old [...] syndrome Assessment & Plan (01/28/2020 11:59 AM DRY KILN LOADER): Assessment: Marlee is a 19 year old [...] QOD Assessment & Plan (01/27/2020 3:59 PM DRY KILN LOADER): Assessment: Marlee is a 19 year old [...] QOD Assessment & Plan (01/26/2020 5:14 PM DRY KILN LOADER): Assessment: Marlee is a 19 year old [...] QOD Assessment & Plan (01/25/2020 2:58 PM DRY KILN LOADER): Assessment: Marlee is a 19 year old [...] QOD Assessment & Plan (01/24/2020 11:54 AM DRY KILN LOADER): Assessment: Marlee is a 19 year old [...] orthostatics Assessment & Plan (01/23/2020 7:09 AM DRY KILN LOADER): Assessment: Marlee is a 19 year old [...] orthostatics Assessment & Plan (01/22/2020 4:25 PM DRY KILN LOADER): Assessment: Marlee is a 19 year old [...] orthostatics Assessment & Plan (01/21/2020 8:15 AM DRY KILN LOADER): Assessment: Marlee Chavez is a 19 year [...] orthostatics Assessment & Plan (01/20/2020 7:36 AM DRY KILN LOADER): Assessment: Marlee Chavez is a 19 year [...] orthostatics Assessment & Plan (01/19/2020 7:20 AM DRY KILN LOADER): Assessment: Marlee Chavez is a 19 year [...] orthostatics Assessment & Plan (01/18/2020 4:30 PM DRY KILN LOADER): Assessment: Marlee Chavez is a 19 year [...] consult Assessment & Plan (03/27/2020 10:35 AM DRY KILN LOADER): Assessment: Marlee is admitted on ED Protocol for severe malnutrition. Following feeding plan per Adolescent Medicine and Nutrition. Plan: - see plan under ARFID problem Assessment & Plan (03/26/2020 11:20 AM DRY KILN LOADER): Assessment: Marlee is admitted on ED Protocol for severe malnutrition. Following feeding plan per Adolescent Medicine and Nutrition. Plan: - see plan under ARFID problem Assessment & Plan (03/24/2020 11:19 AM DRY KILN LOADER): Assessment: Marlee is admitted on ED Protocol for severe malnutrition. Following feeding plan per Adolescent Medicine and Nutrition. Plan: - see plan under ARFID problem Assessment & Plan (03/23/2020 9:00 AM DRY KILN LOADER): Assessment: Marlee is admitted on ED Protocol for severe malnutrition. Following feeding plan per Adolescent Medicine and Nutrition. Plan: - see plan under ARFID problem Assessment & Plan (03/22/2020 12:21 PM DRY KILN LOADER): Assessment: Marlee is admitted on ED Protocol for severe malnutrition. Following feeding plan per Adolescent Medicine and Nutrition. Plan: - see plan under ARFID problem Assessment & Plan (03/17/2020 4:26 PM DRY KILN LOADER): Assessment: Malnutrition is secondary to ARFID and [...] anxiety Assessment & Plan (03/15/2020 11:10 AM DRY KILN LOADER): Assessment: Marlee is admitted on ED Protocol for severe malnutrition. Following feeding plan per Adolescent Medicine and Nutrition. Plan: - see plan under ARFID problem Assessment & Plan (03/10/2020 11:17 AM DRY KILN LOADER): Assessment: Malnutrition is secondary to ARFID and [...] needed Assessment & Plan (03/06/2020 10:09 AM DRY KILN LOADER): Assessment: Marlee is admitted on ED Protocol for severe malnutrition. Following feeding plan per Adolescent Medicine and Nutrition. Plan: - see plan under ARFID problem Assessment & Plan (03/04/2020 1:41 PM DRY KILN LOADER): Assessment: Marlee is admitted on ED Protocol for severe malnutrition. Following feeding plan per Adolescent Medicine and Nutrition. Plan: - see plan under ARFID problem Assessment & Plan (03/04/2020 11:50 AM DRY KILN LOADER): Assessment: Marlee is admitted on ED Protocol for severe malnutrition. Following feeding plan per Adolescent Medicine and Nutrition. Plan: - see plan under ARFID problem Assessment & Plan (03/03/2020 3:53 PM DRY KILN LOADER): Assessment: Malnutrition is secondary to ARFID and [...] dad. Assessment & Plan (02/27/2020 9:57 AM DRY KILN LOADER): Assessment: Marlee is admitted on ED Protocol for severe malnutrition. Following feeding plan per Adolescent Medicine and Nutrition. Plan: - see plan under ARFID problem Assessment & Plan (02/26/2020 9:59 AM DRY KILN LOADER): Assessment: Malnutrition is secondary to ARFID and [...] plan. Assessment & Plan (02/25/2020 5:48 PM DRY KILN LOADER): Assessment: Malnutrition is secondary to ARFID and [...] plan. Assessment & Plan (02/18/2020 4:54 PM DRY KILN LOADER): Assessment: Malnutrition is secondary to ARFID and [...] daily Assessment & Plan (02/11/2020 11:47 AM DRY KILN LOADER): Assessment: Malnutrition is secondary to ARFID and [...] BID Assessment & Plan (02/09/2020 11:50 AM DRY KILN LOADER): Assessment: Marlee is admitted on ED Protocol for severe malnutrition. Following feeding plan per Adolescent Medicine and Nutrition. Plan: - see plan under ARFID problem Assessment & Plan (02/07/2020 11:47 AM DRY KILN LOADER): Assessment: Marlee is admitted on ED Protocol for severe malnutrition. Following feeding plan per Adolescent Medicine and Nutrition. Plan: - see plan under ARFID problem Assessment & Plan (02/06/2020 8:12 AM DRY KILN LOADER): Assessment: Marlee is admitted on ED Protocol for severe malnutrition. Following feeding plan per Adolescent Medicine and Nutrition. Plan: - see plan under ARFID problem Assessment & Plan (02/05/2020 9:01 AM DRY KILN LOADER): Assessment: Marlee is admitted on ED Protocol for severe malnutrition. Following feeding plan per Adolescent Medicine and Nutrition. Plan: - see plan under ARFID problem Assessment & Plan (02/04/2020 12:34 PM DRY KILN LOADER): Assessment: Marlee is admitted on ED Protocol for severe malnutrition. Following feeding plan per Adolescent Medicine and Nutrition. Plan: - see plan under ARFID problem Assessment & Plan (02/03/2020 2:28 PM DRY KILN LOADER): Assessment: Marlee is admitted on ED Protocol for severe malnutrition. Following feeding plan per Adolescent Medicine and Nutrition. Plan: - see plan under ARFID problem Assessment & Plan (02/02/2020 3:57 PM DRY KILN LOADER): Assessment: Marlee is admitted on ED Protocol for severe malnutrition. Following feeding plan per Adolescent Medicine and Nutrition. Plan: - see plan under ARFID problem Assessment & Plan (02/01/2020 12:10 PM DRY KILN LOADER): Assessment: Marlee is admitted on ED Protocol for severe malnutrition. Following feeding plan per Adolescent Medicine and Nutrition. Plan: - see plan under ARFID problem Assessment & Plan (01/31/2020 1:04 PM DRY KILN LOADER): Assessment: Marlee is admitted on ED Protocol for severe malnutrition. Following feeding plan per Adolescent Medicine and Nutrition. Plan: - see plan under ARFID problem Assessment & Plan (01/30/2020 10:28 AM DRY KILN LOADER): Assessment: Marlee is admitted on ED Protocol for severe malnutrition. Following feeding plan per Adolescent Medicine and Nutrition. Plan: - see plan under ARFID problem Assessment & Plan (01/28/2020 4:29 PM DRY KILN LOADER): Assessment: Malnutrition is secondary to ARFID and [...] BID Assessment & Plan (01/24/2020 11:54 AM DRY KILN LOADER): Assessment: Marlee is admitted on ED Protocol for severe malnutrition. Following feeding plan per Adolescent Medicine and Nutrition. Plan: - see plan under ARFID problem Assessment & Plan (01/23/2020 7:09 AM DRY KILN LOADER): Assessment: Marlee is admitted on ED Protocol for severe malnutrition. Following feeding plan per Adolescent Medicine and Nutrition. Plan: - see plan under ARFID problem Assessment & Plan (01/22/2020 9:48 AM DRY KILN LOADER): Assessment: Malnutrition is secondary to ARFID and [...] () Assessment & Plan (01/22/2020 7:52 AM DRY KILN LOADER): Assessment: Marlee is admitted on ED Protocol for severe malnutrition. Following feeding plan per Adolescent Medicine and Nutrition. Plan: - see plan under ARFID problem Assessment & Plan (01/21/2020 10:33 AM DRY KILN LOADER): Assessment: Malnutrition is secondary to ARFID and [...] () Assessment & Plan (01/21/2020 7:40 AM DRY KILN LOADER): Assessment: Marlee is admitted on ED Protocol for severe malnutrition. Following feeding plan per Adolescent Medicine and Nutrition. Plan: - see plan under ARFID problem Assessment & Plan (01/20/2020 7:36 AM DRY KILN LOADER): Assessment: Marlee is admitted on ED Protocol for severe malnutrition. Following feeding plan per Adolescent Medicine and Nutrition. Plan: - see plan under ARFID problem Assessment & Plan (01/19/2020 7:22 AM DRY KILN LOADER): Assessment: Marlee is admitted on ED Protocol for severe malnutrition. Following feeding plan per Adolescent Medicine and Nutrition. Plan: - see plan under ARFID problem Assessment & Plan (01/18/2020 4:25 PM DRY KILN LOADER): Assessment: Marlee Chavez is a 19 year [...] orthostatics Assessment & Plan (01/17/2020 12:38 PM DRY KILN LOADER): Assessment: Marlee Chavez is a 19 year [...] anxiety Assessment & Plan (01/16/2020 1:41 PM DRY KILN LOADER): Assessment: Marlee Chavez is a 19 year [...] anxiety Assessment & Plan (01/15/2020 8:49 PM DRY KILN LOADER): Assessment: Malnutrition is secondary to ARFID and [...] counseling. Assessment & Plan (01/15/2020 11:57 AM DRY KILN LOADER): Assessment: Marlee Chavez is a 19 year [...] anxiety Assessment & Plan (01/14/2020 1:00 PM DRY KILN LOADER): Assessment: Malnutrition is secondary to ARFID and [...] () Assessment & Plan (01/14/2020 9:54 AM DRY KILN LOADER): Assessment: Marlee Chavez is a 19 year [...] anxiety Assessment & Plan (01/13/2020 2:34 PM DRY KILN LOADER): Assessment: Marlee Chavez is a 19 year [...] anxiety Assessment & Plan (01/13/2020 12:01 PM DRY KILN LOADER): Moderate protein-calorie malnutrition Assessment: Marlee Chavez is [...] thereafter Assessment & Plan (01/12/2020 3:40 PM DRY KILN LOADER): Moderate protein-calorie malnutrition Assessment: Marlee Chavez is [...] chart) Assessment & Plan (01/12/2020 1:25 PM DRY KILN LOADER): Assessment: Marlee Chavez is a 19 year [...] anxiety Assessment & Plan (01/11/2020 11:43 AM DRY KILN LOADER): Assessment: Marlee Chavez is a 19 year [...] cysts Assessment & Plan (01/10/2020 9:32 AM DRY KILN LOADER): Assessment: Marlee Chavez is a 19 year [...] cysts Assessment & Plan (01/09/2020 11:08 AM DRY KILN LOADER): Assessment: Marlee Chavez is a 19 year [...] cysts Assessment & Plan (01/08/2020 1:32 PM DRY KILN LOADER): Assessment: Marlee Chavez is a 19 year [...] cysts Assessment & Plan (01/07/2020 2:52 PM DRY KILN LOADER): Assessment: Marlee Chavez is a 19 year [...] cysts Assessment & Plan (01/06/2020 11:27 AM DRY KILN LOADER): Assessment: Marlee Chavez is a 19 year [...] cysts Assessment & Plan (01/05/2020 3:49 PM DRY KILN LOADER): Assessment: Marlee Chavez is a 19 year [...] cysts Assessment & Plan (01/04/2020 1:53 PM DRY KILN LOADER): Assessment: Marlee Chavez is a 19 year [...] cysts Assessment & Plan (01/03/2020 12:34 AM DRY KILN LOADER): Assessment: Marlee Chavez is a 19 year [...] 03/18/2023 Assessment & Plan (01/24/2022 5:04 PM DRY KILN LOADER): Assessment: Marlee Chavez is a 20 year [...] gabapentin Assessment & Plan (01/23/2022 6:56 PM DRY KILN LOADER): Assessment: Marlee Chavez is a 20 year [...] pain Assessment & Plan (01/08/2021 3:05 PM DRY KILN LOADER): Assessment: Patient is an 20 year old [...] I&Os Assessment & Plan (01/07/2021 4:52 PM DRY KILN LOADER): Assessment: Patient is an 20 year old [...] it Assessment & Plan (01/06/2021 6:00 PM DRY KILN LOADER): Assessment: Patient is an 20 year old [...] I&Os Assessment & Plan (01/05/2021 1:27 PM DRY KILN LOADER): Assessment: Patient is an 20 year old [...] I&Os Assessment & Plan (01/04/2021 9:17 PM DRY KILN LOADER): Assessment: Patient is an 20 year old [...] I&Os Assessment & Plan (01/03/2021 8:43 PM DRY KILN LOADER): Assessment: Patient is an 20 year old [...] wearing condom. She has upcoming appointment with hearing consultant next month at which time, she will be getting a IUD. Plan: -urine test today -GC, chlamydia, trichomonas testing Assessment & Plan (05/24/2020 2:43 PM CDT): Will get urine Hcg and STI testing. Mom is aware and Marlee is ok with us communicating results to her mother. Purging 03/24/2020 05/24/2020 Assessment & Plan (04/05/2020 3:23 PM DRY KILN LOADER): Assessment: Has been drinking excessive amounts of water and putting her fingers in her mouth to induce vomiting. No recorded emesis since 03/25. Plan: Will limit access to water to 250ml at a time. May only bathe once per day after she has taken her meds, had breakfast and lunch. Assessment & Plan (04/04/2020 12:58 PM DRY KILN LOADER): Assessment: Has been drinking excessive amounts of water and putting her fingers in her mouth to induce vomiting. No recorded emesis since 03/25. Plan: Will limit access to water to 250ml at a time. May only bathe once per day after she has taken her meds, had breakfast and lunch. Assessment & Plan (04/01/2020 11:55 AM DRY KILN LOADER): Assessment: Has been drinking excessive amounts of water and putting her fingers in her mouth to induce vomiting. No recorded emesis since 03/25. Plan: Will limit access to water to 250ml at a time. May only bathe once per day after she has taken her meds, had breakfast and lunch. Assessment & Plan (03/24/2020 4:53 PM DRY KILN LOADER): Assessment: Has been drinking excessive amounts of water and putting her fingers in her mouth to induce vomiting. Plan: Will limit access to water to 250ml at a time. May only bathe once per day after she has taken her meds, had breakfast and lunch. Ovarian cyst 01/12/2020 03/19/2020 Assessment & Plan (03/15/2020 11:10 AM DRY KILN LOADER): Assessment: on ultrasound on R Plan: -Radiology recommended repeat imaging in 6 months for ovarian cysts Assessment & Plan (03/04/2020 1:41 PM DRY KILN LOADER): Assessment: on ultrasound on R Plan: -Radiology recommended repeat imaging in 6 months for ovarian cysts Assessment & Plan (03/04/2020 11:50 AM DRY KILN LOADER): Assessment: on ultrasound on R Plan: -Radiology recommended repeat imaging in 6 months for ovarian cysts Assessment & Plan (02/27/2020 9:58 AM DRY KILN LOADER): Assessment: on ultrasound on R Plan: -Radiology recommended repeat imaging in 6 months for ovarian cysts Assessment & Plan (01/28/2020 11:59 AM DRY KILN LOADER): Assessment: on ultrasound on R Plan: -Radiology recommended repeat imaging in 6 months for ovarian cysts Assessment & Plan (01/27/2020 3:52 PM DRY KILN LOADER): Assessment: on ultrasound on R Plan: -Radiology recommended repeat imaging in 6 months for ovarian cysts Assessment & Plan (01/26/2020 6:01 PM DRY KILN LOADER): Assessment: on ultrasound on R Plan: -Radiology recommended repeat imaging in 6 months for ovarian cysts Assessment & Plan (01/13/2020 2:33 PM DRY KILN LOADER): Assessment: on ultrasound on R Plan: -Radiology recommended repeat imaging in 6 months for ovarian cysts Assessment & Plan (01/12/2020 1:26 PM DRY KILN LOADER): Assessment: on ultrasound on R Plan: -Radiology recommended repeat imaging in 6 months for ovarian cysts Self-injurious behavior 03/25/201705/12 Major depressive disorder, severe 03/21/2017 05/24/2020 Intractable vomiting 020 Encounters * This document contains information received from the source organization and may not represent a complete record from that organization. Date Type Department Care Team Description 10/13/2024 Travel 09/22/2024 Telephone [facility] - Family Medicine [address] [place] [address] Ronel Thornton DO Medication Request from Last 3 Months Immunizations Immunization Administration Dates Next Due Cellabus primary monoval ent 12+ yr 0.3mL Purple [...] Recorded Patient Health Questionnaire-2 Score 0 07/07/2024 [facility] - [...] place to sleep or slept in a [place] health care facility (including now)? No 04/24/2023 Comments No Sex and Gender Information Value Date Recorded Sex Assigned at Not on file Legal Sex Female 6:25 PM DRY KILN LOADER Gender Identity Not on file Sexual Orientation [...] st Contact Info) Description 01/20/2025 8:20 AM DRY KILN LOADER Office Visit [facility] - Family Medicine [address] [place] [address] Ronel Thornton DO [address] [place] [address] Health Maintenance Due Date Last Done Comments HPV VACCINE (1 - 3-dose series) 2017 MENINGOCOCCAL (Group B) VACCINE SHARED DECISION-MAKING (1 of 2 - Standard) 2018 DTAP/TDAP/TD VACCINES (7 - Td or Tdap) 12/16/2023 12/15/2013, 07/08/2007, 02/22/2004, Additional history exists COVID-19 VACCINE ( season) 2024 02/23/2021, 07/26/2020, 07/03/2020 INFLUENZA VACCINE (#1) 2024 01/25/2022, 2020 CHLAMYDIA/GONORRHEA [...] ACCOUNT BILL Comment: Performed at: - [facility] [address] [id number] Rn Testing: Meredith Gil MD, Phone: [phone] Performed at: - [facility] [address], [place] [id number] Rn Testing: Meredith Gil MD, Phone: [phone] Diagnosis Comment(A) [facility] ACCOUNT BILL Comment: EPITHELIAL [...] 5:09 PM CDT Performed at: - [facility] [address], [place] [id number] Rn Testing: Meredith Gil MD, Phone: [phone] Specimen Comment: [id number] Specimen Comment: Source.............Cervix Specimen Comment: No. of containers..01 ThinPrep Vial Nai Jurado MD LAB - PATHOLOGY/CYTOLOGY ORDE RABLES Final Result Performing Organization Address [facility] Co de Phone Number [facility] ACCOUNT BILL [address] [place] [address] * HIV-1 HIV-2 ANTIBODY + HIV P24 AG PANEL (11/29/2023 10:55 AM CDT) Pathologist [facility] HIV Screen 4th Generation w Reflex Non Reactive Non Reactive [facility] ACCOUNT BILL Comment: HIV-1/HIV-2 antibodies and HIV-1 p24 antigen were NOT detected. There is no laboratory evidence of HIV infection. HIV Negative Blood BLOOD SPECIMEN / Unknown 11/29/2023 10:55 AM CDT 11/29/2023 Narrative [facility] ACCOUNT BILL - 11/30/2023 10:10 AM CDT Performed at: 01 - [address] [id number] Rn Testing: Karlos Huffman PhD, Phone: [phone] Nai Jurado MD LAB - CHEMISTRY ORDERABLES Fi nal Result Performing Organization Address [facility] Co de Phone Number [facility] ACCOUNT BILL [address] [place] [address] * HEPATITIS C AB W/RFLX TO HCV RNA QN PCR (12/07/2021) Pathologist [facility] Hepatitis C Antibody NON-REACTI VE NON-REACT KASIA [facility] Signal to Cut-Off 0.08 <1.00 [facility]ST Comment: HCV antibody was non-reactive. There is no laboratory evidence of HCV infection. In most cases, no further action is required. However, if recent HCV exposure is suspected, a test for HCV RNA (test code 78708) is suggested. For additional information please refer to http://education.Posiq/faq/BKF98i4 (This link is being provided for informational/ educational purposes only.) Test Performed at: [employer] [facility] [address] [facility] [place] [phone] PURVI PABLO DO,MPH Blood BLOOD SPECIMEN / Unknown 12/07/2021 12/07/2021 10:47 AM CDT Karrie Mack MD LAB - CHEMISTRY ORDERABLES Final Result [facility] [address] [place] [address] from Last 3 Months or Most Recently Relevant to Health Maintenance Insurance [facility] Member Subscriber Plan / Payer ( fective 2023-Present) Name:Marlee Newman Relation to Subscriber:Child Name:CONCEPCIONNAI Date of :1984 (Home) (Work) Address: [address] [place] [address] Payer ID:[id number] (NA) Group ID:[id number] Type:Commercial Address: [place] [id number] [facility] Advance Directives * Full [...] 4:54 PM 06/22/2022 2:44 PM Care Teams Computer Systems Information Director Relationship Specialty Start Date End Date Ronel Thornton DO [address] [place] [address] PCP - General Family Medicine 03/18/23 Ronel Thornton DO [address] [place] [address] PCP - Attributed-[facility]HP STL 04/12/23
--- OUTSIDE RECORDS SUMMARY | 2024-10-19 23:45 | XMS_ITS | Encounter Summary ---
Author Organization [facility] Address [address] [facility] [place] [address] Care Team Providers Care Psychology Fellow Name Role Phone Mellissa Jiménez MD Primary Care Provider [phone] Ronel Thornton DO Primary Care Provider [phone] Daphnie Gillespie MD Unavailable Juliana Peralta MARKETING STRATEGIST Unavailable [phone] Juliana Peralta MARKETING STRATEGIST Unavailable [phone] Ronel Thornton DO Unavailable Kenyatta Taylor RN Unavailable [phone] Tiago Lew Unavailable [phone] Reason for Visit * Reason Onset Date Comments Appointment 10/05/2020 Contraceptive management 10/05/2020 Encounter Details Date Type Department Care Team (Late st Contact Info) Description 10/05/2020 Telephone [facility] [address] [place], [place] [id number] [place] [address] [place] [address] Appointment; Contraceptive management Social History Tobacco Use Types Packs/Day Years Used Date Smoking Tobacco: Never Smokeless Tobacco: Never Alcohol Use Standard Drinks/Week Comments No 0 (1 standard drink = 0.6 oz pur e alcohol) Comments No Sex and Gender Information Value Date Recorded Sex Assigned at Not on file Legal Sex Female 6:25 PM BILINGUAL ACCOUNT MANAGER Gender Identity Not on file Sexual [...] the office yet to get scheduled. CB# [phone] documented in this encounter Plan of Treatment Upcoming Encounters Date Type Department Care Team (Late st Contact Info) Description 01/20/2025 8:20 AM BILINGUAL ACCOUNT MANAGER Office Visit [facility] Family Medicine [address] [place] [address] Ronel Thornton DO [address] [place] [address] documented as of this encounter Visit Diagnoses Not on filedocumented in this encounter Additional Health Concerns Infection Onset Date Last Indicated Resolved Time COVID-19 Under Investigation 08/10/2021 08/10/2021 08/10/2021 2:59 AM CDT documented as of this encounter Care Teams Psychology Fellow Relationship Specialty Start Date End Date Mellissa Jiménez MD [address] [place] [address] [place] [address] PCP - General Family Medicine 04/25/20 03/17/23 Ronel Thornton DO [address] [place] [address] PCP - General Family Medicine 03/18/23 [place] [address] [place] [address] PCP - Attributed-[facility] EHP STL 02/11/23 04/11/23 Ronel Thornton DO [address] [place] [address] PCP - Attributed-[facility] EHP STL 04/12/23 Juliana Peralta MSW Outpatient Hogshead Opener Care Management 04/24/2304/11 Juliana Peralta MSW Outpatient Hogshead Opener Care Management 04/30/2304/12 Kenyatta Taylor RN [address] [address] Membership Sales AdvisorBase Draw Operator 09/02/23 10/04/23 Tiago Lew Care Coordination Specialist Care Management 09/26/23 11/10/23 documented as of this encounter
--- OUTSIDE RECORDS SUMMARY | 2024-10-19 23:45 | XMS_ITS | Encounter Summary ---
Author Organization [facility] Address [address] [facility] [place] [address] Care Team Providers Care Branch Assistant Name Role Phone Mellissa Jiménez MD Primary Care Provider [phone] Ronel Thornton DO Primary Care Provider [phone] Daphnie Gillespie MD Unavailable Juliana Peralta CHILD WELFARE CASEWORKER Unavailable [phone] Juliana Peralta Unavailable [phone] Ronel Thornton DO Unavailable [phone] Kenyatta Taylor RN Unavailable [phone] Tiago Lew Unavailable [phone] Reason for Visit * Reason Onset Date Comments Eating disorder 08/04/2020 Encounter Details Date Type Department Care Team (Late st Contact Info) Description 08/04/2020 Telephone [facility] Bi Specialist [address] [place] [address] Flor Martinez, MOLD MAKER PLASTIC MOLDS Eating disorder Social History Tobacco Use Types Packs/Day Years Used Date Smoking Tobacco: Never Smokeless Tobacco: Never Alcohol Use Standard Drinks/Week Comments No 0 (1 standard drink = 0.6 oz pur e alcohol) Comments No Sex and Gender Information Value Date Recorded Sex Assigned at Not on file Legal Sex Female 6:25 PM WILDLIFE CONTROL AGENT Gender Identity Not on file Sexual Orientation [...] they have a phone intake assessment with [facility] next SaturdayAugust 08. documented in this encounter Plan of Treatment Upcoming Encounters Date Type Department Care Team (Late st Contact Info) Description 01/20/2025 8:20 AM WILDLIFE CONTROL AGENT Office Visit [facility] - Family Medicine [address] [place] [address] Ronel Thornton DO [address] [place] [address] documented as of this encounter Visit Diagnoses Not on filedocumented in this encounter Additional Health Concerns Infection Onset Date Last Indicated Resolved Time COVID-19 Under Investigation 08/10/2021 08/10/2021 08/10/2021 2:59 AM CDT documented as of this encounter Care Teams Branch Assistant Relationship Specialty Start Date End Date Mellissa Jiménez MD [address] [place] [address] [place] [address] PCP - General Family Medicine 04/25/20 03/17/23 Ronel Thornton DO [address] [place] [address] PCP - General Family Medicine 03/18/23 Daphnie Gillespie MD [address] [place] [address] PCP - Attributed-[facility] EHP STL 02/11/23 04/11/23 Ronel Thornton DO [address] [place] [address] PCP - Attributed-[facility] EHP STL 04/12/23 Juliana Peralta MSW Outpatient Rejoiner Care Management 04/24/2304/11 Juliana Peralta MSW Outpatient Rejoiner Care Management 04/30/2304/12 Kenyatta Taylor RN [address] [address] Head Rose GrowerRegional Controller 09/02/23 10/04/23 Tiago Lew Care Coordination Specialist Care Management 09/26/23 11/10/23 documented as of this encounter
--- OUTSIDE RECORDS SUMMARY | 2024-10-19 23:45 | XMS_ITS | Clinical Summary ---
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 Name Role Phone Mellissa Jiménez MD Primary [...] on file Legal Sex Female 10:44 PM CHIEF SPECIALIST LEED Gender Identity Not on file Sexual Orientation [...] 52.2 kg (115 lb) 04/20/2023 2:30 AM CHIEF SPECIALIST LEED Height 152.4 cm (5') 04/20/2023 2:30 AM CHIEF SPECIALIST LEED Body Mass Index 22.46 04/20/2023 2:30 AM CHIEF SPECIALIST LEED Plan of Treatment Health Maintenance Due Date Last Done Comments CHLAMYDIA SCREENING (ANNUAL) 11-24 YEARS 2013 HPV VACCINES (1 - 3-dose series) 2017 CERVICAL CANCER SCREENING 08/17/2023 HPV/Cotest (21-29) 08/17/2023 PAP SMEAR 08/17/2023 DTAP/TDAP/TD VACCINES (7 - T d or Tdap) 12/16/2023 12/15/2013, 07/08/2007, 02/22/2004, Additional history exists INFLUENZA VACCINE (#1) 2024 01/25/2022, 2020 COVID-19 Vaccine (2024-2 6 season) 2024 07/26/2020, 07/03/2020 HEPATITIS B VACCINES Completed 02/22/2004, 06/09/2003, 02/22/2003, Additional history [place] [address] [place] [address] [facility] [id number] OUT OF NETWORK Advance Directives For more information, please contact: [phone] * Full Code (Latest Code Status on File) Date Activated Date Inactivated Comments 04/20/2023 2:32 AM 04/21/2023 4:11 PM Care Teams Otr Van Cdl Truck Driver Relationship Specialty Start Date End Date Mellissa Jiménez MD [address] [place] [id number] PCP - General Family Practice 04/20/23
--- OUTSIDE RECORDS SUMMARY | 2024-10-19 23:45 | XMS_ITS | Encounter Summary ---
Author Organization [facility] Address [address] [place] [address] Care Team Providers Care Medical Records Technician Name Role Phone Mellissa Jiménez MD Primary Care Provider [phone] Ronel Thornton DO Primary Care Provider [phone] Daphnie Gillespie MD Unavailable Juliana Peralta LEARNING PROGRAM MANAGER Unavailable [phone] Juliana Peralta Unavailable [phone] Ronel Thornton DO Unavailable [phone] Kenyatta Taylor RN Unavailable Tiago Lew Unavailable [phone] Encounter Details Date Type Department Care Team (Late st Contact Info) Description 07/28/2020 Telephone [facility] Pediatrics - Pulmonology [address] [place] [id number] Bessie Erwin Social History Tobacco Use Types Packs/Day Years Used Date Smoking Tobacco: Never Smokeless Tobacco: Never Alcohol Use Standard Drinks/Week Comments No 0 (1 standard drink = 0.6 oz pur e alcohol) Comments No Sex and Gender Information Value Date Recorded Sex Assigned at Not on file Legal Sex Female 6:25 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 Gender Identity Not on file Sexual [...] PM CDT Mom called regarding not eating [phone] Marla Gillespie documented in this encounter Plan of Treatment Upcoming Encounters Date Type Department Care Team (Late st Contact Info) Description 01/20/2025 8:20 AM STEAM FINISHER Office Visit [facility] Family [address] [address] Ronel Thornton DO [address] [place] [id number] documented as of this encounter Visit Diagnoses Not on filedocumented in this encounter Additional Health Concerns Infection Onset Date Last Indicated Resolved Time COVID-19 Under Investigation 08/10/2021 08/10/2021 08/10/2021 2:59 AM CDT documented as of this encounter Care Teams Medical Records Technician Relationship Specialty Start Date End Date Mellissa Jiménez MD [address] [place] [address] [place] [address] PCP - General Family Medicine 04/25/20 03/17/23 Ronel Thornton DO [address] [place], [place] [address] [address] PCP - General Family Medicine 03/18/23 Daphnie Gillespie MD [address] [place] [id number] PCP - Attributed-[facility] 02/11/23 04/11/23 Ronel Thornton DO [address] [place], [place] [address] [address] PCP - Attributed[facility] 04/12/23 Juliana Peralta MSW Outpatient Audio Recording Engineer Care Management 04/24/2304/11 Juliana Peralta MSW Outpatient Audio Recording Engineer Care Management 04/30/2304/12 Kenyatta Taylor RN [address] [address] Assistant CookYouth Development Specialist 09/02/23 10/04/23 Tiago Lew Care Coordination Specialist Care Management 09/26/23 11/10/23 documented as of this encounter
[2024-10-19] MEDS: LACTATED RINGERS 1,000 ML 999 ML IV CONT (23:56)
[2024-10-20] VITALS (19 sets, daily range): BP systolic 110–173; BP diastolic 65–129; PULSE 73–100; RESP 16–20; TEMP 36.1–37.1; O2SAT 97–100; BMI 17.4
[2024-10-20] LABS: Magnesium 1.8 mg/dL (1.6-2.3)
[2024-10-20] MEDS: MAGNESIUM SULF 2 GM/WATER 50ML 2 GM/50 ML BAG IVPB (00:17)
[2024-10-20] MEDS: HALOPERIDOL LACTATE 5 MG/ML VIAL IM (00:20)
--- NOTE | 2024-10-20 00:21 | ED.NAVMDI ---
HPI - Nausea/Vomiting/Diarrhea General Chief complaint: Nausea/Vomiting/Diarrhea Stated complaint: N/V S/P EATING TOO MUCH AT [facility] Time Seen by Provider: 10/19/24 23:37 Source: patient Mode of arrival: EMS Limitations: no limitations History of Present Illness HPI Narrative: This is a 24 year old female that presents to the ER for abdominal pain, nausea and vomiting. History of cyclic vomiting. Related Data Home Medications ?Medication ?Instructions ?Recorded ?Confirmed ?Last Taken ?Type olanzapine 2.5 mg tablet 5 mg PO DAILY 09/23/24 10/20/24 09/21/24 History lorazepam 1 mg tablet 1 mg PO Q12H PRN anxiety 10/20/24 10/20/24 Unknown History Allergies Allergy/AdvReac Type Severity Reaction Status Date / Time No Known Allergies Allergy Verified 10/20/24 04:50 Review of Systems Review of Systems: All systems reviewed & are unremarkable except as noted in HPI and below PMFSH Past Medical History Medical History (Updated 10/20/24 @ 03:42 by Zuleyma Andrews PA-C) Intractable nausea and vomiting Drug withdrawal seizure History of eating disorder Anxiety Depression Family History Family History Grandparent History of alcoholism Depression Mother History of alcoholism Hypertension Depression Social History Social History (Updated 10/20/24 @ 14:49 by Surekha Chan PA-C) Social History: Lives with mother and grandmother. 3 dogs. Smoking status: Never smoker Alcohol intake: current Alcohol use details: Rare, 1-2 drinks/month Substance use: current Substance use type: marijuana Last use: yesterday Do You Feel Safe in your Home?: Yes Lack of Transportation: No Lack of Food: Never True Current Housing: I Have Housing Concerned About Future Housing: No Difficulty Paying Gas/Electric Bills: No Difficulty Paying for Meds: No Currently Unemployed: No Education: Decline to Answer Difficulty w/ Childcare or Family Care: No Living arrangements: with roommate(s) Occupation/Education: unemployed Additional occupation/education comments: not currently working or in school Gender identity (if verbalized by the patient): Female Spiritual care concerns: No Exam Narrative: GENERAL: Uncomfortable, well-nourished, and in no acute distress. HEAD: Normocephalic, atraumatic. EYES: EOMI. CHEST: Clear to auscultation. No respiratory distress. No wheezes rales or rhonchi HEART: Regular rate and rhythm. No murmur heard. Normal peripheral pulses. ABDOMEN: Soft, nondistended, normal active bowel sounds. Mild tenderness to palpation throughout the abdomen, without guarding EXTREMITIES: Normal range of motion. No edema. SKIN: Warm, dry, no rash. NEURO: No focal deficits. Alert and oriented x3. PSYCH: Normal mood and affect Course Course Emergency Course: After 2 L of fluids, several antiemetics and pain medications patient is still quite uncomfortable. Will consult hospitalist for admission Consultations Consultation #1: Spoke with hospitalist about patient and workup who accepts admission Date: 10/20/24 Vital Signs Vital signs: Vital Signs Temperature 98.3 F 10/19/24 22:53 Pulse Rate 110 H 10/19/24 22:53 Respiratory Rate 24 H 10/19/24 22:53 Blood Pressure 149/116 H 10/19/24 22:53 Pulse Oximetry 100 10/19/24 22:53 Oxygen Delivery Room Air 10/19/24 22:53 Temperature 98.2 F 10/20/24 16:00 Pulse Rate 73 10/20/24 16:00 Respiratory Rate 16 10/20/24 16:00 Blood Pressure 111/65 10/20/24 16:00 Pulse Oximetry 100 10/20/24 16:00 Oxygen Delivery Room Air 10/20/24 08:00 MDM - Nausea/Vomiting/Diarrhea MDM Narrative Medical decision making narrative: Patient presents to the ER for abdominal pain, nausea and vomiting. History of cyclic vomiting syndrome, anxiety, marijuana abuse. Symptoms similar to multiple past presentations. She is afebrile and nontoxic appearing. Tachycardic upon arrival, this normalized with IV fluids. No localized abdominal tenderness. CBC with leukocytosis, likely due to vomiting. Metabolic panel with evidence of dehydration, mild hypokalemia. Patient hydrated with 2 L of IV fluids, IV potassium started. Urine without evidence of infection, does show dehydration. Drug screen positive for cannabinoids. After 2 L of fluids, several antiemetics and pain medications patient is still quite uncomfortable. Will consult hospitalist for admission Differential Diagnosis Differential diagnosis: Likely food poisoning, gastroenteritis, drug-induced nausea and vomiting, dehydration and other (cyclic vomiting, anxiety) Lab Data Attestation: I reviewed the patient's lab results. 10/20/24 09:27 10/20/24 09:27 Labs: Lab Results 10/19/24 10/19/24 10/20/24 Range/Units 00:22 23:10 01:12 WBC 17.0 H (4.5-10.0) K/mm3 RBC 4.12 L (4.2-5.4) M/mm3 Hgb 12.0 (12.0-15.0) g/dL Hct 36.1 L (37.0-47.0) % MCV 87.6 (80-100) fl MCH 29.1 (26-34) pg MCHC 33.2 (32-36) g/dl RDW 13.6 (11.5-14.5) % Plt Count 356 (150-375) k/mm3 MPV 10.0 (7.4-10.4) fl Immature Gran % (Auto) 0.4 (0-0.5) % Neut % (Auto) 52.9 (45.5-73.1) % Lymph % (Auto) 36.0 (18.3-44.2) % [place] % (Auto) 10.0 H (2.6-8.5) % Eos % (Auto) 0.2 (0-4.4) % Baso % (Auto) 0.5 (0.2-1.2) % Lymph # (Auto) 6.10 H (0.9-3.2) K/mm3 [place] # (Auto) 1.7 H (0.1-0.6) K/mm3 Eos # (Auto) 0.0 (0-0.3) K/mm3 Baso # (Auto) 0.1 (0.0-0.1) K/mm3 Abs Immat Gran (auto) 0.07 H (0.00-0.031) K/mm3 Absolute Neuts (auto) 9.0 H (1.3-6.7) K/mm3 Absolute Nucleated RBC 0.000 (0.0-0.012) K/mm3 Nucleated RBC % 0.0 (0.0-0.2) % % Immature Plt Fraction 2.1 (0.9-11.2) % Sodium 138 (137-145) mmol/L Potassium 3.2 L (3.4-5.0) mmol/L Chloride 103 (98-107) mmol/L Carbon Dioxide 19 L (22-30) mmol/L Anion Gap 16 H (4-12) mmol/L BUN 17 D (7-17) mg/dL Creatinine 0.98 (0.7-1.0) mg/dL Estim Creat Clear Calc 56 ml/min Estimated GFR > 60 (59 - ) Glucose 125 H (65-110) mg/dL Calcium 9.7 (8.4-10.2) mg/dL Magnesium 1.8 (1.6-2.3) mg/dL Total Bilirubin 0.3 (0.2-1.3) mg/dL AST 37 H (14-36) U/L ALT 21 (6-35) U/L Alkaline Phosphatase 73 (38-126) U/L Total Protein 7.6 (6.3-8.2) g/dL Albumin 4.6 (3.5-5.1) g/dL Lipase 155 (23-300) U/L Urine Color Yellow (Yellow) Urine Appearance Clear (Clear) Urine pH 6.0 (5.0-9.0) Ur Specific [place] 1.017 (1.001-1.035) Urine Protein Negative (Negative) mg/dL Urine Glucose (UA) Negative (Negative) mg/dL Urine Ketones 4+ H (Negative) mg/dL Ur Blood (Man) Negative (Negative) Urine Nitrate Negative (Negative) Urine Bilirubin Negative (Negative) Urine Urobilinogen 0.2 (<2.0) mg/dL Leukocyte Esterase Rfl Negative (Negative) CHASIDY/UL POC Urine HCG, Qual (Negative) Urine Opiates Screen Negative (Negative) Urine Methadone Screen Negative (Negative) Ur Barbiturates Screen Negative (Negative) Ur Phencyclidine Scrn Negative (Negative) Ur Amphetamine Screen Negative (Negative) U Benzodiazepines Scrn Negative (Negative) Urine Cocaine Screen Negative (Negative) U Cannabinoids Screen Positive A (Negative) 10/20/24 Range/Units 01:51 WBC (4.5-10.0) K/mm3 RBC (4.2-5.4) M/mm3 Hgb (12.0-15.0) g/dL Hct (37.0-47.0) % MCV (80-100) fl MCH (26-34) pg MCHC (32-36) g/dl RDW (11.5-14.5) % Plt Count (150-375) k/mm3 MPV (7.4-10.4) fl Immature Gran % (Auto) (0-0.5) % Neut % (Auto) (45.5-73.1) % Lymph % (Auto) (18.3-44.2) % [place] % (Auto) (2.6-8.5) % Eos % (Auto) (0-4.4) % Baso % (Auto) (0.2-1.2) % Lymph # (Auto) (0.9-3.2) K/mm3 [place] # (Auto) (0.1-0.6) K/mm3 Eos # (Auto) (0-0.3) K/mm3 Baso # (Auto) (0.0-0.1) K/mm3 Abs Immat Gran (auto) (0.00-0.031) K/mm3 Absolute Neuts (auto) (1.3-6.7) K/mm3 Absolute Nucleated RBC (0.0-0.012) K/mm3 Nucleated RBC % (0.0-0.2) % % Immature Plt Fraction (0.9-11.2) % Sodium (137-145) mmol/L Potassium (3.4-5.0) mmol/L Chloride (98-107) mmol/L Carbon Dioxide (22-30) mmol/L Anion Gap (4-12) mmol/L BUN (7-17) mg/dL Creatinine (0.7-1.0) mg/dL Estim Creat Clear Calc ml/min Estimated GFR (59 - ) Glucose (65-110) mg/dL Calcium (8.4-10.2) mg/dL Magnesium (1.6-2.3) mg/dL Total Bilirubin (0.2-1.3) mg/dL AST (14-36) U/L ALT (6-35) U/L Alkaline Phosphatase (38-126) U/L Total Protein (6.3-8.2) g/dL Albumin (3.5-5.1) g/dL Lipase (23-300) U/L Urine Color (Yellow) Urine Appearance (Clear) Urine pH (5.0-9.0) Ur Specific [place] (1.001-1.035) Urine Protein (Negative) mg/dL Urine Glucose (UA) (Negative) mg/dL Urine Ketones (Negative) mg/dL Ur Blood (Man) (Negative) Urine Nitrate (Negative) Urine Bilirubin (Negative) Urine Urobilinogen (<2.0) mg/dL Leukocyte Esterase Rfl (Negative) CHASIDY/UL POC Urine HCG, Qual Negative (Negative) Urine Opiates Screen (Negative) Urine Methadone Screen (Negative) Ur Barbiturates Screen (Negative) Ur Phencyclidine Scrn (Negative) Ur Amphetamine Screen (Negative) U Benzodiazepines Scrn (Negative) Urine Cocaine Screen (Negative) U Cannabinoids Screen (Negative) Critical Care Time Critical Care Time Critical Care Time: No Discharge Plan Discharge Clinical Impression: Intractable nausea and vomiting, Acute dehydration, Hypokalemia Patient Disposition: Still a Patient Condition: Stable
[2024-10-20 01:26] LABS: Add Urine Microscopic? NO; Appearance Urine Clear (Clear); Glucose Urine UA Negative (Negative); Leukocyte Esterase Ur Negative LEU/UL (Negative); Nitrate Urine Negative (Negative); Specific Grav Ur 1.017 (1.001-1.035)
[2024-10-20 01:51] LABS: Cannabinoid Screen Urine Positive (Negative)
[2024-10-20 01:53] LABS: BEDSIDEPREGUCG Negative (Negative)
[2024-10-20] MEDS: KETOROLAC 15 MG/ML VIAL (*BKC) IV PUSH ×2 (01:55→08:47)
[2024-10-20] MEDS: MORPHINE SULFATE (*CRX) 4 MG/ML INJ IV PUSH (02:04)
[2024-10-20] MEDS: POTASSIUM CHLORIDE INJ 40 MEQ in SODIUM CHLORIDE 0.9% IV 500 ML 130 MEQ IVPB (03:35)
[2024-10-20] MEDS: SODIUM CHLORIDE 0.9% IV 1,000 ML 125 ML IV CONT (03:38)
--- NOTE | 2024-10-20 04:46 | ADMGEN ---
This patient, Kenyatta Moy, was admitted to [facility] Surg Room 320-01. Patient/family oriented to hospital policies and general routines including ID bracelet, bed and alarms, visiting hours, pain management, procedures, bathroom and other care routines, personal items, smoking policy, room service/diet, and visiting hours. Information on how to activate the Rapid Response Team has been discussed. Patient/Family are encouraged to report perceived risks to care and to ask questions if they do not understand what they are told or what they should do.
--- NOTE | 2024-10-20 08:22 | PM.IMHP ---
H&P: HPI History of Present Illness Date/Time: 10/20/24 08:22 Chief Complaint: nausea/vomiting Narrative: 24 year old female with past medical history of cyclical vomiting, daily marijuana use, and anxiety presents to the hospital for nausea/vomiting and abdominal pain. Patient states she ate too much chipotle which led to the nausea/vomiting and abdominal pain which occurred approximately 1-2 hours following the meal. She describes the abdominal pain as a cramping to the periumbilical region with radiation to the left lower quadrant. She denies any fevers/chills or sick contacts. She aslo notes that she smoked 3 or 4 bowls of marijuana yesterday. She denies any alcohol use. She states she has been trying to wean back on her marijuana use since prior admission when she was told this could be causing her vomiting. Patients last bowel movement was yesterday and she states this was a normal BM. She denies any diarrhea or constipation. She states she was unable to keep down any food or fluids which prompted her to come to the hospital. Patient had no other complaints denying chest pain, palpitations, shortness of breath. Patient continues to endorse nausea but states that the vomiting has subsided and the abdominal pain has improved. Patient wishes to remain a full code. ED workup: CBC with WBC 17, H/H 12/36.1, and PLT 356. CMP with Na 138, K 3.2, Cl 103, CO2 19, and BUN/Cr 17/0.98 with GFR > 60. Glucose 125. LFTs WNL. UA nonconcerning for infection. UDS positive for cannabinoids. She was treated for nausea/vomiting with compazine, pepcid, benadryl, and haldol. Review of Systems Review of Systems: All systems reviewed & are unremarkable except as noted in HPI and below PMFSH Past Medical History Medical History (Updated 10/20/24 @ 03:42 by Zuleyma Andrews PA-C) Intractable nausea and vomiting Drug withdrawal seizure History of eating disorder Anxiety Depression Family History Family History Grandparent History of alcoholism Depression Mother History of alcoholism Hypertension Depression Social History Social History (Updated 10/20/24 @ 14:49 by Surekha Chan PA-C) Social History: Lives with mother and grandmother. 3 dogs. Smoking status: Never smoker Alcohol intake: current Alcohol use details: Rare, 1-2 drinks/month Substance use: current Substance use type: marijuana Last use: yesterday Do You Feel Safe in your Home?: Yes Lack of Transportation: No Lack of Food: Never True Current Housing: I Have Housing Concerned About Future Housing: No Difficulty Paying Gas/Electric Bills: No Difficulty Paying for Meds: No Currently Unemployed: No Education: Decline to Answer Difficulty w/ Childcare or Family Care: No Living arrangements: with roommate(s) Occupation/Education: unemployed Additional occupation/education comments: not currently working or in school Gender identity (if verbalized by the patient): Female Spiritual care concerns: No Meds Home Medications and Allergies Home Medications ?Medication ?Instructions ?Recorded ?Confirmed ?Type olanzapine 2.5 mg tablet 5 mg PO DAILY 09/23/24 10/20/24 History hydrocodone 5 mg-acetaminophen 325 1 tablet PO Q4H PRN Pain Rated 4-6 09/25/24 10/20/24 Rx mg tablet #12 tabs ondansetron 4 mg disintegrating 4 mg PO Q8H PRN nausea and 09/25/24 10/20/24 Rx tablet vomiting #7 tabs escitalopram oxalate 10 mg tablet 20 mg (2 x 10 mg) PO DAILY #60 tabs 09/27/24 10/20/24 Rx hydroxyzine pamoate 25 mg capsule 50 mg (2 x 25 mg) PO BIDWM PRN 09/27/24 10/20/24 Rx anxiety #60 caps sucralfate 100 mg/mL oral 1,000 mg (10 mL) PO ACHS #1,000 mL 09/27/24 10/20/24 Rx suspension lorazepam 1 mg tablet 1 mg PO Q12H PRN anxiety 10/20/24 10/20/24 History Allergies Allergy/AdvReac Type Severity Reaction Status Date / Time No Known Allergies Allergy Verified 10/20/24 04:50 Vital Signs Vital Signs - 24 hr 10/19/24 22:53 10/19/24 23:17 10/19/24 23:17 Temperature 98.3 F Pulse Rate 110 H 80 94 Respiratory Rate 24 H Blood Pressure 149/116 H 156/108 H 148/91 H Pulse Oximetry 100 Oxygen Delivery Room Air 10/20/24 00:31 10/20/24 00:46 10/20/24 01:01 Temperature Pulse Rate Respiratory Rate Blood Pressure 173/129 H 116/84 125/84 Pulse Oximetry 99 98 98 Oxygen Delivery 10/20/24 01:16 10/20/24 01:31 10/20/24 01:45 Temperature Pulse Rate Respiratory Rate Blood Pressure 128/87 124/96 H 129/86 Pulse Oximetry 98 98 97 Oxygen Delivery 10/20/24 02:00 10/20/24 02:15 10/20/24 02:30 Temperature Pulse Rate Respiratory Rate Blood Pressure 118/82 127/79 125/85 Pulse Oximetry 97 97 98 Oxygen Delivery 10/20/24 02:45 10/20/24 03:00 10/20/24 03:15 Temperature Pulse Rate Respiratory Rate Blood Pressure 132/77 126/84 127/85 Pulse Oximetry 98 Oxygen Delivery 10/20/24 04:11 10/20/24 04:53 10/20/24 05:00 Temperature 98.7 F 97.8 F Pulse Rate 88 88 88 Respiratory Rate 20 20 20 Blood Pressure 128/95 H 145/93 H Pulse Oximetry 99 99 100 Oxygen Delivery Room Air Exam Narrative: AF HR 74 RR 16 SpO2 100 BP 110/82 General: well nourished, well-developed female in no acute respiratory distress who is nontoxic appearing, sitting up in bed. HEENT: Normocephalic. Atraumatic. Extraocular movement intact. Sclera clear and anicteric. No facial asymmetry. Chest: Lungs are clear to auscultation bilaterally. No wheezes or crackles. CV: Heart was regular rate and rhythm. S1-S2. No murmurs, gallops, or rubs. Abd: Abdomen was soft. Slight periumbilical tenderness. Nondistended. Positive bowel sounds. Ext: No clubbing, cyanosis, or edema. DP pulses bilaterally. Neuro: Patient is alert and oriented x4. Strength is 5/5 in both upper and lower extremities. Speech is clear. Psych: Normal mood and affect. Patient is pleasant and cooperative. Skin: Warm and dry. No rashes noted. H&P: Results Labs Labs: Short CBC 10/19/24 Range/Units 23:10 WBC 17.0 H (4.5-10.0) K/mm3 Hgb 12.0 (12.0-15.0) g/dL Hct 36.1 L (37.0-47.0) % Plt Count 356 (150-375) k/mm3 BMP 10/19/24 23:10 Sodium 138 Potassium 3.2 L Chloride 103 Carbon Dioxide 19 L BUN 17 D Creatinine 0.98 Glucose 125 H Calcium 9.7 Liver Function 10/19/24 Range/Units 23:10 Total Bilirubin 0.3 (0.2-1.3) mg/dL AST 37 H (14-36) U/L ALT 21 (6-35) U/L Alkaline Phosphatase 73 (38-126) U/L Albumin 4.6 (3.5-5.1) g/dL Urine 10/20/24 Range/Units 01:12 Urine Color Yellow (Yellow) Urine Appearance Clear (Clear) Urine pH 6.0 (5.0-9.0) Ur Specific [place] 1.017 (1.001-1.035) Urine Protein Negative (Negative) mg/dL Urine Glucose (UA) Negative (Negative) mg/dL Assessment and Plan Assessment and plan (1) Intractable nausea and vomiting: Code(s): R11.2 - Nausea with vomiting, unspecified Status: Acute Assessment and Plan: Leukocytosis on admission, possibly related to dehydration secondary to N/V. Repeat WBC 11.1. Viral panel negative CT abdomen/pelvis: Prominent mural thickening and enhancement of the transverse colon, compatible with colitis, most likely infectious or inflammatory. Right adnexal cyst measuring 3 cm, likely ovarian. Likely gastroenteritis. Patient symptoms and wbc improving despite no antibiotic intervention. If she develops worsening abdominal pain, fevers, or diarrhea consider antibiotic regimen. Despite counseling for cessation of marijuana use, patient continues to use once discharged. Smoked 3-4 bowls yesterday. Suspect patient's intractable nausea and vomiting has a component of cyclical vomiting related to marijuana abuse P.r.n. Haldol 2.5 mg IV push q6 hours. P.r.n. Zofran 4 mg IV push q.4 hours. Capsaicin topical cream Diet: Clear liquid diet, advance as tolerated IV fluids NS 100 ml/hr, DC as patient starts to tolerate a diet (2) Anxiety: Code(s): F41.9 - Anxiety disorder, unspecified Status: Acute Assessment and Plan: States anxiety doing well on the current regimen Previously seen by psychiatry on 09/27 Lexapro 20 mg daily, take in the morning due to potential sleep disturbances Hydroxyzine pamoate 50 mg BID as needed for anxiety Recommend discontinuation of marijuana use due to potential exacerbation of anxiety and gastric symptoms - Advised gradual reduction by 15% per week if choosing to discontinue (3) Marijuana abuse: Code(s): F12.10 - Cannabis abuse, uncomplicated Status: Acute Assessment and Plan: UDS positive for cannabinoids States smoked 3-4 bowls yesterday prior to symptoms occurring Encouraged smoking cessation Quality If No VTE Prophylaxis Answer both mechanical and pharmacologic: Reason no mechanical VTE proph: low risk/not indicated Reason no pharmacologic proph: low risk/not indicated (independent ambulation without risk factors. ) Hospitalist [facility] Advance Care Plan I have confirmed that the patient's Advanced Care Plan is present, code status is documented, or surrogate decision maker is listed in patient medical record.: Yes Medication Reconciliation I have utilized all available resources to obtain, update and review the patients current medications (includes all prescriptions, OTC, herbals, cannabis, and nutritional supplements).: Yes
[2024-10-20 09:31] LABS: Hematocrit 35.6 % (37.0-47.0); Hemoglobin 11.2 g/dL (12.0-15.0); Mean Corpuscular HGB Conc 31.5 g/dl (32-36); Mean Corpuscular Hemoglobin 29.2 pg (26-34); Mean Corpuscular Volume 93.0 fl (80-100); Platelet Count Result 269 k/mm3 (150-375); Red Blood Count 3.83 M/mm3 (4.2-5.4); White Blood Count 11.1 K/mm3 (4.5-10.0)
[2024-10-20 09:37] LABS: Influenza A QL RT-PCR Negative (Negative); Influenza B QL RT-PCR Negative (Negative); RSV RNA, RT-PCR Negative (Negative); SARS-CoV-2 RNA PCR Negative (Negative)
[2024-10-20 09:58] LABS: Alanine Aminotransferase 16 U/L (6-35); Albumin Level 4.4 g/dL (3.5-5.1); Alkaline Phosphatase 61 U/L (38-126); Anion Gap 11 mmol/L (4-12); Aspartate Amino Transferase 41 U/L (14-36); Bilirubin,Total 0.4 mg/dL (0.2-1.3); Blood Urea Nitrogen 9 mg/dL (7-17); Calcium 8.1 mg/dL (8.4-10.2); Carbon Dioxide 20 mmol/L (22-30); Chloride 105 mmol/L (98-107); Estimated CRCL calculation 86 ml/min; Estimated Glomerular Filt Rate > 60; Glucose 109 mg/dL (65-110); Potassium 4.4 mmol/L (3.4-5.0); Sodium 136 mmol/L (137-145); Total Protein 7.3 g/dL (6.3-8.2)
[2024-10-20] MEDS: CAPSAICIN 0.025% CREAM 60 GM TUBE 1 APPLIC TOPICAL (10:09)
[2024-10-21] MEDS: SODIUM CHLORIDE 0.9% IV 1,000 ML 125 ML IV CONT (03:31)
[2024-10-21 05:24] VITALS: BP 110/70; PULSE 60; RESP 16; TEMP 36.2; O2SAT 99
[2024-10-21 06:54] LABS: Hematocrit 34.0 % (37.0-47.0); Hemoglobin 10.8 g/dL (12.0-15.0); Mean Corpuscular HGB Conc 31.8 g/dl (32-36); Mean Corpuscular Hemoglobin 29.3 pg (26-34); Mean Corpuscular Volume 92.4 fl (80-100); Platelet Count Result 255 k/mm3 (150-375); Red Blood Count 3.68 M/mm3 (4.2-5.4); White Blood Count 6.5 K/mm3 (4.5-10.0)
[2024-10-21 07:08] LABS: Alanine Aminotransferase 14 U/L (6-35); Albumin Level 3.7 g/dL (3.5-5.1); Alkaline Phosphatase 59 U/L (38-126); Anion Gap 12 mmol/L (4-12); Aspartate Amino Transferase 46 U/L (14-36); Bilirubin,Total 0.4 mg/dL (0.2-1.3); Blood Urea Nitrogen 5 mg/dL (7-17); Calcium 8.2 mg/dL (8.4-10.2); Carbon Dioxide 16 mmol/L (22-30); Chloride 109 mmol/L (98-107); Estimated CRCL calculation 84 ml/min; Estimated Glomerular Filt Rate > 60; Glucose 62 mg/dL (65-110); Potassium 3.7 mmol/L (3.4-5.0); Sodium 137 mmol/L (137-145); Total Protein 6.3 g/dL (6.3-8.2)
[2024-10-21] MEDS: ESCITALOPRAM OXALATE 10 MG TABLET 20 MG PO (08:59)
--- NOTE | 2024-10-21 11:12 | PM.DS ---
DS: Admitting Diagnosis Discharge Date 10/21 Admitting Diagnosis nausea, anxiety DS: Discharge Diagnosis Discharge Diagnosis (1) Intractable nausea and vomiting: Code(s): R11.2 - Nausea with vomiting, unspecified Status: Acute (2) Anxiety: Code(s): F41.9 - Anxiety disorder, unspecified Status: Acute (3) Marijuana abuse: Code(s): F12.10 - Cannabis abuse, uncomplicated Status: Acute DS: Summary Hospital Course Hospital Course: 24 year old female with past medical history of cyclical vomiting, daily marijuana use, and anxiety presents to the hospital for nausea/vomiting and abdominal pain. Patient states she ate too much chipotle which led to the nausea/vomiting and abdominal pain which occurred approximately 1-2 hours following the meal. She describes the abdominal pain as a cramping to the periumbilical region with radiation to the left lower quadrant. She denies any fevers/chills or sick contacts. She aslo notes that she smoked 3 or 4 bowls of marijuana yesterday. She denies any alcohol use. She states she has been trying to wean back on her marijuana use since prior admission when she was told this could be causing her vomiting. Patients last bowel movement was yesterday and she states this was a normal BM. She denies any diarrhea or constipation. She states she was unable to keep down any food or fluids which prompted her to come to the hospital. Patient had no other complaints denying chest pain, palpitations, shortness of breath. Patient continues to endorse nausea but states that the vomiting has subsided and the abdominal pain has improved. Patient wishes to remain a full code. ED workup: CBC with WBC 17, H/H 12/36.1, and PLT 356. CMP with Na 138, K 3.2, Cl 103, CO2 19, and BUN/Cr 17/0.98 with GFR > 60. Glucose 125. LFTs WNL. UA nonconcerning for infection. UDS positive for cannabinoids. She was treated for nausea/vomiting with Compazine, pepcid, benadryl, and haldol. Time Spent with Patient Time attestation: Total time spent providing and/or coordinating discharge services: Exam Narrative: AF HR 74 RR 16 SpO2 100 BP 110/82 General: well nourished, well-developed female in no acute respiratory distress who is nontoxic appearing, sitting up in bed. HEENT: Normocephalic. Atraumatic. Extraocular movement intact. Sclera clear and anicteric. No facial asymmetry. Chest: Lungs are clear to auscultation bilaterally. No wheezes or crackles. CV: Heart was regular rate and rhythm. S1-S2. No murmurs, gallops, or rubs. Abd: Abdomen was soft. Slight periumbilical tenderness. Nondistended. Positive bowel sounds. Ext: No clubbing, cyanosis, or edema. DP pulses bilaterally. Neuro: Patient is alert and oriented x4. Strength is 5/5 in both upper and lower extremities. Speech is clear. Psych: Normal mood and affect. Patient is pleasant and cooperative. Skin: Warm and dry. No rashes noted. DS: Data Data Completed and Pending Labs on day of discharge: Labs from last 24 hours 10/21/24 06:40 WBC 6.5 RBC 3.68 L Hgb 10.8 L Hct 34.0 L MCV 92.4 MCH 29.3 MCHC 31.8 L RDW 13.8 Plt Count 255 MPV 9.6 Sodium 137 Potassium 3.7 Chloride 109 H Carbon Dioxide 16 L Anion Gap 12 BUN 5 L Creatinine 0.65 L Estim Creat Clear Calc 84 Estimated GFR > 60 Glucose 62 L Calcium 8.2 L Total Bilirubin 0.4 AST 46 H ALT 14 Alkaline Phosphatase 59 Total Protein 6.3 Albumin 3.7 Discharge Plan Discharge Attending physician on discharge: Nathaly Fisher Consulting providers: Surekha Chan Discharging Clinician: Lilibeth Lambert Patient Disposition: Home Activity: may shower Diet: regular Discharge Instructions: You were admitted for nausea/anxiety. Please continue Lexapro 20 mg daily, take in the morning due to potential sleep disturbances hydroxyzine pamoate 50 mg twice a day as needed for anxiety Recommend discontinuation of marijuana use due to potential exacerbation of anxiety and gastric symptoms - Advised gradual reduction by 15% per week if choosing to discontinue Encourage use of War[place] sour candy as an acute anxiety management technique Continue current grounding techniques and breathing exercises Follow up with psychiatrist and therapist after discharge from the hospital. may be a good idea to discuss with PCP discontinuation of hydrocodone as it may contribute to nausea as well. Patient Instructions: Antibiotic Form, How to Stop Smoking (DC), Medicinal Use of Cannabis (GEN), Cannabis Use Disorder (GEN), Cyclic Vomiting Syndrome (GEN) Patient Language: Armenian Stand Alone Forms: General Discharge Information Follow-up/Referrals: Norberto,Ronel [Other] - 1 Week Discharge Medications: Continued olanzapine 2.5 mg tablet 5 mg PO DAILY hydrocodone-acetaminophen 5-325 mg Tablet 1 tablet PO Q4H PRN (Reason: Pain Rated 4-6) Qty: 12 0RF ondansetron 4 mg tablet,disintegrating 4 mg PO Q8H PRN (Reason: nausea and vomiting) Qty: 7 0RF sucralfate 100 mg/mL Suspension 1,000 mg PO ACHS Qty: 1000 0RF hydroxyzine pamoate 25 mg capsule 50 mg PO BIDWM PRN (Reason: anxiety) Qty: 60 0RF escitalopram oxalate 10 mg tablet 20 mg PO DAILY Qty: 60 0RF lorazepam 1 mg tablet 1 mg PO Q12H PRN (Reason: anxiety) Date of admission: 10/20/24 03:18 Primary Care Provider: NorbertoRonel Admitting Provider: Ben Wilkerson Attending physician on admission: Ben Wilkerson Condition: Stable
== END 2024-10-21 13:17 | disposition home or self-care (01) ==
LOC: ANHED 10-20 03:42 → ANH3MEDSUR 10-20 05:19
PROVIDERS: Emergency Medicine; Student in an Organized Health Care Education/Training Program; Admitting Provider Internal Medicine; Emergency Provider Physician Assistant; Visit Provider General Practice
DX: R11.2 Nausea with vomiting, unspecified (principal); E87.6 Hypokalemia; E86.0 Dehydration; D72.829 Elevated white blood cell count, unspecified; F41.9 Anxiety disorder, unspecified; F12.10 Cannabis abuse, uncomplicated; Z86.69 Personal history of other diseases of the nervous system and sense organs; Z20.822 Contact with and (suspected) exposure to COVID-19; Z86.59 Personal history of other mental and behavioral disorders; Z79.891 Long term (current) use of opiate analgesic; Z79.899 Other long term (current) drug therapy; Z81.1 Family history of alcohol abuse and dependence; Z82.49 Family history of ischemic heart disease and other diseases of the circulatory system; Z81.8 Family history of other mental and behavioral disorders
CPT/HCPCS: 36415; 74177; 80053; 80307; 81003; 81025; 83690; 83735; 85025; 85027; 85055; 87637; 96361; 96365; 96372; 96375; 96376; 99285; A9270; G0378; G0379; J0780; J1200; J1630; J1885; J2270; J3475; J3480; J7030; J7040; J7120; Q9967

== ENCOUNTER 2024-12-18 12:26 | Emergency (ER) | payer OTHER, SELFPAY ==
--- NOTE | ~2024-12-18 | CT_ITS ---
EXAMINATION: CT abdomen pelvis w con DATE: 12/18/2024 18:55 INDICATION: Nausea and vomiting. Abdomen pain. TECHNIQUE: Computed tomography (CT) of the abdomen and pelvis was performed with 100 cc Omnipaque 350 intravenous contrast. The dose-length product was 183.94 mGy-cm. Automated exposure control and iterative reconstruction technique were employed. COMPARISON: CT dated 10/20/2024 FINDINGS: Mild-moderate segmental thickening of the ascending, transverse, descending and sigmoid colon, compatible with colitis, most likely infectious or inflammatory. There is mild periportal edema. Fatty infiltration of the liver. The spleen, pancreas, adrenal glands and kidneys are unremarkable. Gallbladder is present. IUD present in the uterus. Trace free fluid in the pelvis. No significant vascular abnormality. No lymphadenopathy. No acute osseous abnormality. Levoscoliosis of the thoracolumbar spine. IMPRESSION: 1. Segmental thickening of the colon as discussed above, most likely infectious or inflammatory. No evidence for perforation. Reviewed, dictated and finalized at location O. DING MAT[employer]S SALES ATTENDANT
[2024-12-18 12:30] VITALS: BP 130/87; PULSE 102; RESP 16; TEMP 36.9; O2SAT 98
--- OUTSIDE RECORDS SUMMARY | 2024-12-18 12:36 | XMS_ITS | Encounter Summary ---
Author Organization [facility] Address [address] [place] [address] Care Team Providers Care Network Engineering Advisor Name Role Phone Mellissa Jiménez MD Primary Care Provider [phone] Ronel Thornton DO Primary Care Provider [phone] Daphnie Gillespie MD Unavailable Juliana Peralta INFORMATION SECURITY ARCHITECT Unavailable [phone] Juliana Peralta INFORMATION SECURITY ARCHITECT Unavailable [phone] Ronel Thornton DO Unavailable Kenyatta Taylor RN Unavailable Tiago Lew Unavailable [phone] Reason for Visit * Reason Onset Date Comments Appointment 10/05/2020 Contraceptive management 10/05/2020 Encounter Details Date Type Department Care Team (Late st Contact Info) Description 10/05/2020 Telephone [facility] [address] [place], [place] [id number] [place] [address] [place] [address] Appointment; Contraceptive management Social History Tobacco Use Types Packs/Day Years Used Date Smoking Tobacco: Never Smokeless Tobacco: Never Alcohol Use Standard Drinks/Week Comments No 0 (1 standard drink = 0.6 oz pur e alcohol) Comments No Sex and Gender Information Value Date Recorded Sex Assigned at Not on file Legal Sex Female 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 CB# [phone] documented in this encounter Plan of Treatment Upcoming Encounters Date Type Department Care Team (Late st Contact Info) Description 01/20/2025 8:20 AM PATCH MACHINE OPERATOR Office Visit [facility] - Family Medicine [address] [place] [address] Ronel Thornton DO [address] [place] [address] 05/03/2025 1:30 PM CDT Office Visit [facility] - [address] [facility] [place] [address] Moreno Mendes MD [address] [place] [address] documented as of this encounter Visit Diagnoses Not on filedocumented in this encounter Additional Health Concerns Infection Onset Date Last Indicated Resolved Time COVID-19 Under Investigation 08/10/2021 08/10/2021 08/10/2021 2:59 AM CDT documented as of this encounter Care Teams Network Engineering Advisor Relationship Specialty Start Date End Date Mellissa Jiménez MD [address] [place] [address] [place] [address] PCP - General Family Medicine 04/25/20 03/17/23 Ronel Thornton DO [address] [place] [address] PCP - General Family Medicine 03/18/23 Daphnie Gillespie MD [address] [place] [address] PCP - Att[facility] 02/11/23 04/11/23 Ronel Thornton DO [address] [place] [address] PCP - Attributed[facility] ST[facility] 04/12/23 Juliana Peralta MSW Outpatient Horseshoer Care Management 04/24/2304/11 Juliana Peralta MSW Outpatient Horseshoer Care Management 04/30/2304/12 Kenyatta Taylor RN [address] [address] Lab ManagerJavascript Software Engineer 09/02/23 10/04/23 Tiago Lew Care Coordination Specialist Care Management 09/26/23 11/10/23 documented as of this encounter
--- OUTSIDE RECORDS SUMMARY | 2024-12-18 12:36 | XMS_ITS | Encounter Summary ---
Author Organization [facility] Address [address] [facility] [place] [address] Care Team Providers Care Blemish Remover Name Role Phone Mellissa Jiménez MD Primary Care Provider [phone] Ronel Thornton DO Primary Care Provider [phone] Daphnie Gillespie MD Unavailable Juliana Peralta TITLE 1 TUTOR Unavailable [phone] Juliana Peralta Unavailable [phone] Ronel Thornton DO Unavailable [phone] Kenyatta Taylor RN Unavailable [phone] Tiago Lew Unavailable [phone] Reason for Visit * Reason Onset Date Comments Eating disorder 08/04/2020 Encounter Details Date Type Department Care Team (Late st Contact Info) Description 08/04/2020 Telephone [facility] Installation And Service Technician [address] [place] [address] [address] Martinez, CHIEF II DISPATCHER Eating disorder Social History Tobacco Use Types Packs/Day Years Used Date Smoking Tobacco: Never Smokeless Tobacco: Never Alcohol Use Standard Drinks/Week Comments No 0 (1 standard drink = 0.6 oz pur e alcohol) Comments No Sex and Gender Information Value Date Recorded Sex Assigned at Not on file Legal Sex Female 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 next SaturdayAugust 08. documented in this encounter Plan of Treatment Upcoming Encounters Date Type Department Care Team (Late st Contact Info) Description 01/20/2025 8:20 AM WATERSIDE WORKER Office Visit [facility] - Family Medicine [address] [place] [address] Ronel Thornton DO [address] [place] [address] 05/03/2025 1:30 PM CDT Office Visit [facility] - GI [address] [facility], [place] [address] Moreno Mendes MD [address] [place] [address] documented as of this encounter Visit Diagnoses Not on filedocumented in this encounter Additional Health Concerns Infection Onset Date Last Indicated Resolved Time COVID-19 Under Investigation 08/10/2021 08/10/2021 08/10/2021 2:59 AM CDT documented as of this encounter Care Teams Blemish Remover Relationship Specialty Start Date End Date Mellissa Jiménez MD [address] [place] [address] [place] [address] PCP - General Family Medicine 04/25/20 03/17/23 [place] [address] [place] [address] PCP - General Family Medicine 03/18/23 Daphnie Gillespie MD [address] [place] [address] PCP - [facility] 02/11/23 04/11/23 Ronel Thornton DO [address] [place] [address] PCP - [facility] STL 04/12/23 Juliana Peralta MSW Outpatient Quality Assurance Inspector Care Management 04/24/2304/11 Juliana Peralta MSW Outpatient Quality Assurance Inspector Care Management 04/30/2304/12 Kenyatta Taylor, RN [address] [address] Real Estate Site AnalystThread Spooler 09/02/23 10/04/23 Tiago Lew Care Coordination Specialist Care Management 09/26/23 11/10/23 documented as of this encounter
--- OUTSIDE RECORDS SUMMARY | 2024-12-18 12:36 | XMS_ITS | Clinical Summary ---
Author Organization [facility] Address [address] [place] [address] Phone Care Team Providers Care Salesperson [employer] Name Role Phone Mellissa Jiménez MD Primary [...] on file Legal Sex Female 10:44 PM ATHLETIC EVENTS SCORER Gender Identity Not on file Sexual Orientation [...] 52.2 kg (115 lb) 04/20/2023 2:30 AM ATHLETIC EVENTS SCORER Height 152.4 cm (5') 04/20/2023 2:30 AM ATHLETIC EVENTS SCORER Body Mass Index 22.46 04/20/2023 2:30 AM ATHLETIC EVENTS SCORER Plan of Treatment Health Maintenance Due Date [...] Additional history [place] [address] [facility] [id number] OUT OF NETWORK Advance Directives For more information, please contact: [phone] * Full Code (Latest Code Status on File) Date Activated Date Inactivated Comments 04/20/2023 2:32 AM 04/21/2023 4:11 PM Care Teams Salesperson [employer] Relationship Specialty Start Date End Date Mellissa Jiménez MD [address] [place] [id number] PCP - General Family Practice 04/20/23
--- OUTSIDE RECORDS SUMMARY | 2024-12-18 12:36 | XMS_ITS | Encounter Summary ---
Author Organization [facility] Address [address] [place] [address] Care Team Providers Care Market Risk Analyst Name Role Phone Mellissa Jiménez MD Primary Care Provider [phone] Ronel Thornton DO Primary Care Provider [phone] Daphnie Gillespie MD Unavailable Juliana Peralta BUILDING ARCHITECTURAL DESIGNER Unavailable [phone] Juliana Peralta Unavailable [phone] Ronel Thornton DO Unavailable [phone] Kenyatta Taylor RN Unavailable Tiago Lew Unavailable [phone] Encounter Details Date Type Department Care Team (Late st Contact Info) Description 07/28/2020 Telephone [facility] - Pulmonology [address] [place] [id number] Bessie Erwin Social History Tobacco Use Types Packs/Day Years Used Date Smoking Tobacco: Never Smokeless Tobacco: Never Alcohol Use Standard Drinks/Week Comments No 0 (1 standard drink = 0.6 oz pur e alcohol) Comments No Sex and Gender Information Value Date Recorded Sex Assigned at Not on file Legal Sex Female 6:25 PM CNC MECHANIC Gender Identity Not on file Sexual Orientation [...] Entry Date Author No 04/08/2020 1:15 PM oRsetta Drew RN documented in this encounter Miscellaneous [...] PM CDT Mom called regarding not eating [phone] Marla Gillespie documented in this encounter Plan of Treatment Upcoming Encounters Date Type Department Care Team (Late st Contact Info) Description 01/20/2025 8:20 AM CNC MECHANIC Office Visit [facility] - Family Medicine [address] [place] [address] Ronel Thornton DO [address] [place] [address] 05/03/2025 1:30 PM CDT Office Visit [facility] - [address] [facility], [place] [id number] Moreno Mendes MD [address] [place] [address] documented as of this encounter Visit Diagnoses Not on filedocumented in this encounter Additional Health Concerns Infection Onset Date Last Indicated Resolved Time COVID-19 Under Investigation 08/10/2021 08/10/2021 08/10/2021 2:59 AM CDT documented as of this encounter Care Teams Market Risk Analyst Relationship Specialty Start Date End Date Mellissa Jiménez MD [address] [place] [address] [place] [address] PCP - General Family Medicine 04/25/20 03/17/23 Ronel Thornton DO [address] [place] [address] PCP - General Family Medicine 03/18/23 Daphnie Gillespie MD [address] [place] [address] PCP - Attributed-[facility] 02/11/23 04/11/23 Ronel Thornton DO [address] [place] [address] PCP - Attributed-[facility] 04/12/23 Juliana Peralta MSW Outpatient Ware Tester Care Management 04/24/2304/11 Juliana Peralta MSW Outpatient Ware Tester Care Management 04/30/2304/12 Kenyatta Taylor RN [address] [address] Mercantile ReporterTestboard Operator 09/02/23 10/04/23 Tiago Lew Care Coordination Specialist Care Management 09/26/23 11/10/23 documented as of this encounter
--- OUTSIDE RECORDS SUMMARY | 2024-12-18 12:36 | XMS_ITS | Clinical Summary ---
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 This disclosure is being madepursuant to the Care Everywhere program and may not contain all information available regarding this patient. Last updated 17.[facility] Allergies No known active allergies Medications * [...] (does not have on hand), Reported on 11/30/2024 prochlorperazi ne (Compazine) injection Inject 20 mL into muscle every 8 hours as needed for Nausea/Vomiting 200 mL 025 Active Additional Information Patient not taking.Reason: Cost, Reported on 11/30/2024 acetaminophen (Tylenol) 500 MG tablet Take 2 [...] mouth every 12 hours 30 tablet Active Additional Information Patient not taking.Reported on 11/30/2024 hydrOXYzine pamoate (Vistaril) 25 MG capsule Take [...] daily before breakfast 90 capsule 1 Active Additional Information Patient not taking.Reported on 11/30/2024 scopolamine (Transderm-Sco p) 1 MG patch Apply [...] (anxiety, panic) 30 tablet Active escitalopram (Lexapro) 20 MG tablet Take 1 (one) tablet by mouth once daily 30 tablet 2 Active OLANZapine (ZyPREXA) 5 MG tablet Take 1 (one) tablet by mouth at bedtime 30 tablet Active mirtazapine (Remeron) 30 MG tablet Take 1 (one) tablet by mouth at bedtime 30 tablet 1 Active hydrOXYzine HCl (Atarax) [...] 024 2023 Disconti nued(No Pharm No AVS) escitalopram (Lexapro) 20 MG tablet Take 1 (one) tablet by mouth once daily 30 tablet 2 025 2024 Disconti nued(Reo rder) OLANZapine (ZyPREXA) 5 MG tablet Take 1 (one) tablet by mouth at bedtime 30 tablet 025 2024 Disconti nued(Reo rder) mirtazapine (Remeron) 15 MG tablet Take 0.5 (one-half) tablet to 1 (one) tablet by mouth at bedtime Start with a half tablet to establish tolerability, and if well tolerated and needed, can increase to full tablet. 30 tablet 1 025 2024 Disconti nued(Dos e Adjustme nt) Active Problems Problem Noted Date Diagnosed Date [...] 01/18/2020 Assessment & Plan (01/08/2021 3:06 PM CLERK RATING): Assessment: Major depressive disorder, generalized anxiety disorder and substance abuse disorder. 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 Assessment & Plan (04/07/2020 6:45 PM CLERK RATING): Assessment: Hx of major depressive disorder and generalized anxiety disorder. Pt has been seen by psychiatry and psychology, now improved since starting/optimizing zyprexa QHS, clonazepam TID, and prozac QD. Plan: - Prozac 30 mg QD (dose of 30 mg started on 03/09/20, Prozac initially began 02/07) - Zyprexa 5 mg QHS - Klonopin 0.5mg TID Assessment & Plan (04/06/2020 3:54 PM CLERK RATING): Assessment: Hx of major depressive disorder and [...] TID Assessment & Plan (04/05/2020 10:49 AM CLERK RATING): Assessment: Hx of major depressive disorder and [...] TID Assessment & Plan (04/04/2020 10:23 AM CLERK RATING): Assessment: Hx of major depressive disorder and [...] TID Assessment & Plan (04/03/2020 6:30 PM CLERK RATING): Assessment: Hx of major depressive disorder and [...] TID Assessment & Plan (04/01/2020 11:15 AM CLERK RATING): Assessment: Hx of major depressive disorder and [...] dose) Assessment & Plan (03/31/2020 10:07 AM CLERK RATING): Assessment: Hx of major depressive disorder and [...] dose) Assessment & Plan (03/30/2020 2:24 PM CLERK RATING): Assessment: Hx of major depressive disorder and generalized anxiety disorder. Pt seen by psychiatry on admission and was started elavil, but continued to have anxiety. Elavil was discontinued due to persistent tachycardia and hypotension. [facility] she was started on zyprexa [...] dose) Assessment & Plan (03/29/2020 6:50 AM CLERK RATING): Assessment: Hx of major depressive disorder and [...] dose) Assessment & Plan (03/27/2020 10:30 AM CLERK RATING): Assessment: Hx of major depressive disorder and [...] dose) Assessment & Plan (03/26/2020 11:15 AM CLERK RATING): Assessment: Hx of major depressive disorder and [...] dose) Assessment & Plan (03/25/2020 8:58 AM CLERK RATING): Assessment: Hx of major depressive disorder and [...] dose) Assessment & Plan (03/24/2020 6:44 AM CLERK RATING): Assessment: Hx of major depressive disorder and generalized anxiety disorder. Pt seen by psychiatry on admission and was started elavil, but continued to have anxiety. Elavil was discontinued due to persistent tachycardia and hypotension. [facility], she was started on zyprexa [...] dose) Assessment & Plan (03/23/2020 12:19 PM CLERK RATING): Assessment: Hx of major depressive disorder and [...] dose) Assessment & Plan (03/22/2020 10:47 AM CLERK RATING): Assessment: Hx of major depressive disorder and [...] recommendations) Assessment & Plan (03/21/2020 3:11 PM CLERK RATING): Assessment: Hx of major depressive disorder and [...] mg. Assessment & Plan (03/20/2020 10:31 AM CLERK RATING): Assessment: Hx of major depressive disorder and [...] 03/21. Assessment & Plan (03/19/2020 10:38 AM CLERK RATING): Assessment: Hx of major depressive disorder and [...] withdrawal Assessment & Plan (03/18/2020 12:58 PM CLERK RATING): Assessment: Hx of major depressive disorder and [...] anxiety Assessment & Plan (03/17/2020 10:33 AM CLERK RATING): Assessment: Hx of major depressive disorder and [...] appreciated Assessment & Plan (03/16/2020 2:24 PM CLERK RATING): Assessment: Hx of major depressive disorder and [...] recommendations Assessment & Plan (03/15/2020 11:11 AM CLERK RATING): Assessment: Hx of major depressive disorder and [...] anxiety Assessment & Plan (03/14/2020 6:28 AM CLERK RATING): Assessment: Hx of major depressive disorder and [...] anxiety Assessment & Plan (03/13/2020 6:28 AM CLERK RATING): Assessment: Hx of major depressive disorder and [...] anxiety Assessment & Plan (03/12/2020 11:35 AM CLERK RATING): Assessment: Hx of major depressive disorder and [...] anxiety Assessment & Plan (03/11/2020 12:43 PM CLERK RATING): Assessment: Hx of major depressive disorder and [...] anxiety Assessment & Plan (03/10/2020 6:11 AM CLERK RATING): Assessment: Hx of major depressive disorder and [...] anxiety Assessment & Plan (03/09/2020 6:24 AM CLERK RATING): Assessment: Hx of major depressive disorder and [...] anxiety Assessment & Plan (03/08/2020 10:51 AM CLERK RATING): Assessment: Hx of major depressive disorder and [...] anxiety Assessment & Plan (03/07/2020 9:15 AM CLERK RATING): Assessment: Hx of major depressive disorder and [...] -Develop daily schedule with assistance of child psychometrist-Alma Assessment & Plan (03/06/2020 10:09 AM CLERK RATING): Assessment: Hx of major depressive disorder and [...] anxiety Assessment & Plan (03/05/2020 9:56 AM CLERK RATING): Assessment: Hx of major depressive disorder and [...] anxiety Assessment & Plan (03/04/2020 12:58 PM CLERK RATING): Assessment: Hx of major depressive disorder and [...] anxiety Assessment & Plan (03/03/2020 3:16 PM CLERK RATING): Assessment: Hx of major depressive disorder and [...] anxiety Assessment & Plan (03/01/2020 12:04 PM CLERK RATING): Assessment: Hx of major depressive disorder and [...] anxiety Assessment & Plan (02/29/2020 12:53 PM CLERK RATING): Assessment: Hx of major depressive disorder and [...] anxiety Assessment & Plan (02/28/2020 9:22 AM CLERK RATING): Assessment: Hx of major depressive disorder and [...] anxiety Assessment & Plan (02/27/2020 10:27 AM CLERK RATING): Assessment: Hx of major depressive disorder and [...] negative Assessment & Plan (02/26/2020 11:12 AM CLERK RATING): Assessment: Hx of major depressive disorder and [...] pending Assessment & Plan (02/25/2020 9:33 AM CLERK RATING): Assessment: Hx of major depressive disorder and [...] pending Assessment & Plan (02/24/2020 6:51 AM CLERK RATING): Assessment: Hx of major depressive disorder and [...] pending Assessment & Plan (02/23/2020 10:19 AM CLERK RATING): Assessment: Hx of major depressive disorder and [...] pending Assessment & Plan (02/22/2020 11:07 AM CLERK RATING): Assessment: Hx of major depressive disorder and [...] QHS Assessment & Plan (02/21/2020 10:54 AM CLERK RATING): Assessment: History of major depressive disorder and [...] tablet Assessment & Plan (02/20/2020 11:33 AM CLERK RATING): Assessment: History of major depressive disorder and [...] tablet Assessment & Plan (02/19/2020 3:05 PM CLERK RATING): Assessment: History of major depressive disorder and [...] tablet Assessment & Plan (02/18/2020 10:13 AM CLERK RATING): Assessment: History of major depressive disorder and [...] tablet Assessment & Plan (02/17/2020 12:26 PM CLERK RATING): Assessment: History of major depressive disorder and [...] tablet Assessment & Plan (02/16/2020 1:14 PM CLERK RATING): Assessment: History of major depressive disorder and [...] tablet Assessment & Plan (02/15/2020 12:31 PM CLERK RATING): Assessment: History of major depressive disorder and [...] tablet Assessment & Plan (02/14/2020 2:24 PM CLERK RATING): Assessment: History of major depressive disorder and [...] tablet Assessment & Plan (02/13/2020 12:00 PM CLERK RATING): Assessment: History of major depressive disorder and [...] tablet Assessment & Plan (02/12/2020 11:20 AM CLERK RATING): Assessment: History of major depressive disorder and [...] tablet Assessment & Plan (02/11/2020 11:54 AM CLERK RATING): Assessment: History of major depressive disorder and [...] tablet Assessment & Plan (02/10/2020 12:09 PM CLERK RATING): Assessment: History of major depressive disorder and [...] tablet Assessment & Plan (02/09/2020 11:50 AM CLERK RATING): Assessment: History of major depressive disorder and [...] atarax Assessment & Plan (02/08/2020 12:54 PM CLERK RATING): Assessment: History of major depressive disorder and [...] atarax Assessment & Plan (02/07/2020 11:47 AM CLERK RATING): Assessment: History of major depressive disorder and [...] atarax Assessment & Plan (02/06/2020 8:12 AM CLERK RATING): Assessment: History of major depressive disorder and [...] atarax Assessment & Plan (02/05/2020 9:12 AM CLERK RATING): Assessment: History of major depressive disorder and [...] atarax Assessment & Plan (02/04/2020 12:43 PM CLERK RATING): Assessment: History of major depressive disorder and [...] atarax Assessment & Plan (02/03/2020 2:28 PM CLERK RATING): Assessment: History of major depressive disorder and [...] atarax Assessment & Plan (02/02/2020 4:02 PM CLERK RATING): Assessment: History of major depressive disorder and [...] atarax Assessment & Plan (02/01/2020 12:12 PM CLERK RATING): Assessment: History of major depressive disorder and [...] atarax Assessment & Plan (01/31/2020 1:04 PM CLERK RATING): Assessment: History of major depressive disorder and [...] atarax Assessment & Plan (01/30/2020 10:30 AM CLERK RATING): Assessment: History of major depressive disorder and [...] atarax Assessment & Plan (01/29/2020 9:40 PM CLERK RATING): Assessment: History of major depressive disorder and [...] atarax Assessment & Plan (01/28/2020 11:59 AM CLERK RATING): Assessment: History of major depressive disorder and [...] lunch Assessment & Plan (01/27/2020 3:57 PM CLERK RATING): Assessment: History of major depressive disorder and [...] lunch Assessment & Plan (01/26/2020 6:01 PM CLERK RATING): Assessment: History of major depressive disorder and [...] atarax Assessment & Plan (01/25/2020 2:56 PM CLERK RATING): Assessment: History of major depressive disorder and [...] PO. Assessment & Plan (01/24/2020 8:11 AM CLERK RATING): Assessment: History of major depressive disorder and [...] (02/22/20) Assessment & Plan (01/23/2020 7:09 AM CLERK RATING): Assessment: History of major depressive disorder and [...] (02/22/20) Assessment & Plan (01/22/2020 7:52 AM CLERK RATING): Assessment: History of major depressive disorder and [...] (02/22/20) Assessment & Plan (01/21/2020 7:40 AM CLERK RATING): Assessment: History of major depressive disorder and [...] (02/22/20) Assessment & Plan (01/20/2020 7:36 AM CLERK RATING): Assessment: History of major depressive disorder and [...] (02/22/20) Assessment & Plan (01/19/2020 7:22 AM CLERK RATING): Assessment: History of major depressive disorder and [...] (02/22/20) Assessment & Plan (01/18/2020 4:35 PM CLERK RATING): Assessment: History of major depressive disorder and [...] range. Assessment & Plan (04/08/2020 1:31 PM CLERK RATING): Assessment: Malnutrition is secondary to ARFID, SMA [...] PT Assessment & Plan (04/07/2020 2:52 PM CLERK RATING): Assessment: Malnutrition is secondary to ARFID, SMA [...] PT Assessment & Plan (04/07/2020 6:44 PM CLERK RATING): Assessment: Marlee is a 19 year old [...] / Assessment & Plan (04/06/2020 6:45 PM CLERK RATING): Assessment: Marlee is a 19 year old [...] Q Assessment & Plan (04/05/2020 3:22 PM CLERK RATING): Assessment: Malnutrition is secondary to ARFID, SMA [...] PT Assessment & Plan (04/05/2020 10:49 AM CLERK RATING): Assessment: Marlee is a 19 year old [...] / Assessment & Plan (04/04/2020 3:59 PM CLERK RATING): Assessment: Malnutrition is secondary to ARFID, SMA [...] daily Assessment & Plan (04/04/2020 10:21 AM CLERK RATING): Assessment: Marlee is a 19 year old [...] / Assessment & Plan (04/03/2020 12:59 PM CLERK RATING): Assessment: Marlee is a 19 year old [...] daily Assessment & Plan (04/02/2020 4:19 PM CLERK RATING): Assessment: Marlee is a 19 year old [...] daily Assessment & Plan (04/01/2020 11:55 AM CLERK RATING): Assessment: Malnutrition is secondary to ARFID and [...] daily Assessment & Plan (04/01/2020 11:15 AM CLERK RATING): Assessment: Marlee is a 19 year old [...] daily Assessment & Plan (03/31/2020 12:05 PM CLERK RATING): Assessment: Malnutrition is secondary to ARFID and [...] daily Assessment & Plan (03/31/2020 10:06 AM CLERK RATING): Assessment: Marlee is a 19 year old [...] daily Assessment & Plan (03/30/2020 2:24 PM CLERK RATING): Assessment: Marlee is a 19 year old [...] 03/24/2020 Lab schedule: CMP, Mg, Phos, Triglycerides: Tu, Th, Sun evening Spec grav: daily Assessment & Plan (03/29/2020 10:40 AM CLERK RATING): Assessment: Marlee is a 19 year old [...] daily Assessment & Plan (03/28/2020 12:29 PM CLERK RATING): Assessment: Marlee is a 19 year old [...] daily Assessment & Plan (03/27/2020 10:34 AM CLERK RATING): Assessment: Marlee is a 19 year old [...] daily Assessment & Plan (03/26/2020 11:20 AM CLERK RATING): Assessment: Marlee is a 19 year old [...] daily Assessment & Plan (03/25/2020 12:30 PM CLERK RATING): Assessment: Marlee is a 19 year old [...] allowed in room. May have water from [employer] cup. - May take shower while sitting [...] daily Assessment & Plan (03/24/2020 5:02 PM CLERK RATING): Assessment: Malnutrition is secondary to ARFID and [...] anxiety Assessment & Plan (03/24/2020 11:19 AM CLERK RATING): Assessment: Marlee is a 19 year old [...] daily Assessment & Plan (03/23/2020 12:20 PM CLERK RATING): Assessment: Marlee is a 19 year old [...] fecal calprotectin was normal. Surgery was consulted (1/26/21) as pt had minimal improvement with tolerance [...] daily Assessment & Plan (03/22/2020 12:20 PM CLERK RATING): Assessment: Marlee is a 19 year old [...] daily Assessment & Plan (03/21/2020 3:10 PM CLERK RATING): Assessment: Marlee is a 19 year old [...] 03/15/2020. Assessment & Plan (03/20/2020 10:32 AM CLERK RATING): Assessment: Marlee is a 19 year old [...] 03/15/2020. Assessment & Plan (03/19/2020 10:37 AM CLERK RATING): Assessment: Marlee is a 19 year old [...] Trigylcerides 3 times weekly (Tu, Thurs, Sun) - Small NS bolus 10 [...] 03/15/2020. Assessment & Plan (03/18/2020 1:00 PM CLERK RATING): Assessment: Marlee is a 19 year old [...] 03/15/2020. Assessment & Plan (03/17/2020 10:36 AM CLERK RATING): Assessment: Marlee is a 19 year old [...] 03/15/2020. Assessment & Plan (03/16/2020 2:10 PM CLERK RATING): Assessment: Marlee is a 19 year old [...] 03/15/2020. Assessment & Plan (03/15/2020 11:10 AM CLERK RATING): Assessment: Marlee is a 19 year old [...] 03/15/2020 Assessment & Plan (03/14/2020 9:53 AM CLERK RATING): Assessment: Marlee is a 19 year old [...] 03/15/2020 Assessment & Plan (03/13/2020 9:39 AM CLERK RATING): Assessment: Marlee is a 19 year old [...] week Assessment & Plan (03/12/2020 11:35 AM CLERK RATING): Assessment: Marlee is a 19 year old [...] week Assessment & Plan (03/11/2020 12:43 PM CLERK RATING): Assessment: Marlee is a 19 year old [...] week Assessment & Plan (03/10/2020 9:12 AM CLERK RATING): Assessment: Marlee is a 19 year old [...] in Assessment & Plan (03/09/2020 10:22 AM CLERK RATING): Assessment: Marlee is a 19 year old [...] in Assessment & Plan (03/08/2020 10:52 AM CLERK RATING): Assessment: Marlee is a 19 year old [...] CMP, Mg, Phos, Trigylcerides 3 times weekly (Margaux, Diamante, Sun) HEME/ONC: Mircocytic anemia 2/2 malnutrition. Iron [...] in Assessment & Plan (03/07/2020 9:18 AM CLERK RATING): Assessment: Marlee is a 19 year old [...] in Assessment & Plan (03/06/2020 10:09 AM CLERK RATING): Assessment: Marlee is a 19 year old [...] in Assessment & Plan (03/05/2020 9:56 AM CLERK RATING): Assessment: aMrlee is a 19 year old [...] in Assessment & Plan (03/04/2020 12:58 PM CLERK RATING): Assessment: Marlee is a 19 year old [...] A/P Assessment & Plan (03/03/2020 3:15 PM CLERK RATING): Assessment: Marlee is a 19 year old [...] A/P Assessment & Plan (03/02/2020 12:06 PM CLERK RATING): Assessment: Marlee is a 19 year old [...] A/P Assessment & Plan (03/01/2020 12:05 PM CLERK RATING): Assessment: Marlee is a 19 year old [...] A/P Assessment & Plan (02/29/2020 12:52 PM CLERK RATING): Assessment: Marlee is a 19 year old [...] A/P Assessment & Plan (02/28/2020 9:12 AM CLERK RATING): Assessment: Marlee is a 19 year old [...] A/P Assessment & Plan (02/27/2020 10:03 AM CLERK RATING): Assessment: Marlee is a 19 year old [...] A/P Assessment & Plan (02/26/2020 11:12 AM CLERK RATING): Assessment: Marlee is a 19 year old [...] A/P Assessment & Plan (02/25/2020 9:32 AM CLERK RATING): Assessment: Marlee is a 19 year old [...] A/P Assessment & Plan (02/24/2020 10:42 AM CLERK RATING): Assessment: Marlee is a 19 year old [...] A/P Assessment & Plan (02/23/2020 10:22 AM CLERK RATING): Assessment: Marlee is a 19 year old [...] A/P Assessment & Plan (02/22/2020 11:25 AM CLERK RATING): Assessment: Marlee is a 19 year old [...] A/P Assessment & Plan (02/21/2020 10:54 AM CLERK RATING): Assessment: Marlee is a 19 year old [...] A/P Assessment & Plan (02/20/2020 11:31 AM CLERK RATING): Assessment: Marlee is a 19 year old [...] A/P Assessment & Plan (02/19/2020 3:04 PM CLERK RATING): Assessment: Marlee is a 19 year old [...] TPN. Assessment & Plan (02/18/2020 10:14 AM CLERK RATING): Assessment: Marlee is a 19 year old [...] Sat) Assessment & Plan (02/17/2020 12:30 PM CLERK RATING): Assessment: Marlee is a 19 year old [...] pending Assessment & Plan (02/16/2020 2:29 PM CLERK RATING): Assessment: Marlee is a 19 year old [...] pending Assessment & Plan (02/15/2020 12:33 PM CLERK RATING): Assessment: Marlee is a 19 year old [...] pending Assessment & Plan (02/14/2020 2:23 PM CLERK RATING): Assessment: Marlee is a 19 year old [...] pending Assessment & Plan (02/13/2020 11:59 AM CLERK RATING): Assessment: Marlee is a 19 year old [...] pending Assessment & Plan (02/12/2020 11:49 AM CLERK RATING): Assessment: Marlee is a 19 year old [...] recs Assessment & Plan (02/11/2020 11:56 AM CLERK RATING): Assessment: Marlee is a 19 year old [...] recs Assessment & Plan (02/10/2020 12:11 PM CLERK RATING): Assessment: Marlee is a 19 year old [...] SG) Assessment & Plan (02/09/2020 11:49 AM CLERK RATING): Assessment: Marlee is a 19 year old [...] SG) Assessment & Plan (02/08/2020 12:54 PM CLERK RATING): Assessment: Marlee is a 19 year old [...] recs. Assessment & Plan (02/07/2020 12:06 PM CLERK RATING): Assessment: Marlee is a 19 year old [...] SG) Assessment & Plan (02/06/2020 8:12 AM CLERK RATING): Assessment: Marlee is a 19 year old [...] SG) Assessment & Plan (02/05/2020 9:12 AM CLERK RATING): Assessment: Marlee is a 19 year old [...] TG) Assessment & Plan (02/04/2020 12:52 PM CLERK RATING): Assessment: Marlee is a 19 year old [...] TG) Assessment & Plan (02/03/2020 2:38 PM CLERK RATING): Assessment: Marlee is a 19 year old [...] TG) Assessment & Plan (02/02/2020 4:02 PM CLERK RATING): Assessment: Marlee is a 19 year old [...] QOD Assessment & Plan (02/01/2020 12:08 PM CLERK RATING): Assessment: Marlee is a 19 year old [...] RBCs. Assessment & Plan (01/31/2020 1:05 PM CLERK RATING): Assessment: Marlee is a 19 year old [...] hematuria Assessment & Plan (01/30/2020 10:30 AM CLERK RATING): Assessment: Marlee is a 19 year old [...] 10.2 Assessment & Plan (01/29/2020 9:39 PM CLERK RATING): Assessment: Marlee is a 19 year old [...] syndrome Assessment & Plan (01/28/2020 11:59 AM CLERK RATING): Assessment: Marlee is a 19 year old [...] QOD Assessment & Plan (01/27/2020 3:59 PM CLERK RATING): Assessment: Marlee is a 19 year old [...] QOD Assessment & Plan (01/26/2020 5:14 PM CLERK RATING): Assessment: Marlee is a 19 year old [...] QOD Assessment & Plan (01/25/2020 2:58 PM CLERK RATING): Assessment: Marlee is a 19 year old [...] QOD Assessment & Plan (01/24/2020 11:54 AM CLERK RATING): Assessment: Marlee is a 19 year old [...] orthostatics Assessment & Plan (01/23/2020 7:09 AM CLERK RATING): Assessment: Marlee is a 19 year old [...] orthostatics Assessment & Plan (01/22/2020 4:25 PM CLERK RATING): Assessment: Marlee is a 19 year old [...] orthostatics Assessment & Plan (01/21/2020 8:15 AM CLERK RATING): Assessment: Marlee Chavez is a 19 year [...] orthostatics Assessment & Plan (01/20/2020 7:36 AM CLERK RATING): Assessment: Marlee Chavez is a 19 year [...] orthostatics Assessment & Plan (01/19/2020 7:20 AM CLERK RATING): Assessment: Marlee Chavez is a 19 year [...] orthostatics Assessment & Plan (01/18/2020 4:30 PM CLERK RATING): Assessment: Marlee Chavez is a 19 year [...] consult Assessment & Plan (03/27/2020 10:35 AM CLERK RATING): Assessment: Marlee is admitted on ED Protocol for severe malnutrition. Following feeding plan per Adolescent Medicine and Nutrition. Plan: - see plan under ARFID problem Assessment & Plan (03/26/2020 11:20 AM CLERK RATING): Assessment: Marlee is admitted on ED Protocol for severe malnutrition. Following feeding plan per Adolescent Medicine and Nutrition. Plan: - see plan under ARFID problem Assessment & Plan (03/24/2020 11:19 AM CLERK RATING): Assessment: Marlee is admitted on ED Protocol for severe malnutrition. Following feeding plan per Adolescent Medicine and Nutrition. Plan: - see plan under ARFID problem Assessment & Plan (03/23/2020 9:00 AM CLERK RATING): Assessment: Marlee is admitted on ED Protocol for severe malnutrition. Following feeding plan per Adolescent Medicine and Nutrition. Plan: - see plan under ARFID problem Assessment & Plan (03/22/2020 12:21 PM CLERK RATING): Assessment: Marlee is admitted on ED Protocol for severe malnutrition. Following feeding plan per [facility]. Plan: - see plan under ARFID problem Assessment & Plan (03/17/2020 4:26 PM CLERK RATING): Assessment: Malnutrition is secondary to ARFID and [...] anxiety Assessment & Plan (03/15/2020 11:10 AM CLERK RATING): Assessment: Marlee is admitted on ED Protocol for severe malnutrition. Following feeding plan per [facility]oles[facility] Nutrition. Plan: - see plan under ARFID problem Assessment & Plan (03/10/2020 11:17 AM CLERK RATING): Assessment: Malnutrition is secondary to ARFID and [...] needed Assessment & Plan (03/06/2020 10:09 AM CLERK RATING): Assessment: Marlee is admitted on ED Protocol for severe malnutrition. Following feeding plan per [facility] Nutrition. Plan: - see plan under ARFID problem Assessment & Plan (03/04/2020 1:41 PM CLERK RATING): Assessment: Marlee is admitted on ED Protocol for severe malnutrition. Following feeding plan per [facility] Nutrition. Plan: - see plan under ARFID problem Assessment & Plan (03/04/2020 11:50 AM CLERK RATING): Assessment: Marlee is admitted on ED Protocol for severe malnutrition. Following feeding plan per [facility] Nutrition. Plan: - see plan under ARFID problem Assessment & Plan (03/03/2020 3:53 PM CLERK RATING): Assessment: Malnutrition is secondary to ARFID and [...] dad. Assessment & Plan (02/27/2020 9:57 AM CLERK RATING): Assessment: Marlee is admitted on ED Protocol for severe malnutrition. Following feeding plan per [facility]oles[facility] Nutrition. Plan: - see plan under ARFID problem Assessment & Plan (02/26/2020 9:59 AM CLERK RATING): Assessment: Malnutrition is secondary to ARFID and [...] plan. Assessment & Plan (02/25/2020 5:48 PM CLERK RATING): Assessment: Malnutrition is secondary to ARFID and [...] plan. Assessment & Plan (02/18/2020 4:54 PM CLERK RATING): Assessment: Malnutrition is secondary to ARFID and [...] daily Assessment & Plan (02/11/2020 11:47 AM CLERK RATING): Assessment: Malnutrition is secondary to ARFID and [...] BID Assessment & Plan (02/09/2020 11:50 AM CLERK RATING): Assessment: Marlee is admitted on ED Protocol for severe malnutrition. Following feeding plan per [facility] Nutrition. Plan: - see plan under ARFID problem Assessment & Plan (02/07/2020 11:47 AM CLERK RATING): Assessment: Marlee is admitted on ED Protocol for severe malnutrition. Following feeding plan per [facility]oles[facility] Nutrition. Plan: - see plan under ARFID problem Assessment & Plan (02/06/2020 8:12 AM CLERK RATING): Assessment: Marlee is admitted on ED Protocol for severe malnutrition. Following feeding plan per Adolescent [facility] Nutrition. Plan: - see plan under ARFID problem Assessment & Plan (02/05/2020 9:01 AM CLERK RATING): Assessment: Marlee is admitted on ED Protocol for severe malnutrition. Following feeding plan per Adolescent Medicine and Nutrition. Plan: - see plan under ARFID problem Assessment & Plan (02/04/2020 12:34 PM CLERK RATING): Assessment: Marlee is admitted on ED Protocol for severe malnutrition. Following feeding plan per [facility]oles[facility] and Nutrition. Plan: - see plan under ARFID problem Assessment & Plan (02/03/2020 2:28 PM CLERK RATING): Assessment: Marlee is admitted on ED Protocol for severe malnutrition. Following feeding plan per [facility]oles[facility] Nutrition. Plan: - see plan under ARFID problem Assessment & Plan (02/02/2020 3:57 PM CLERK RATING): Assessment: Marlee is admitted on ED Protocol for severe malnutrition. Following feeding plan per [facility]olescent [facility] and Nutrition. Plan: - see plan under ARFID problem Assessment & Plan (02/01/2020 12:10 PM CLERK RATING): Assessment: Marlee is admitted on ED Protocol for severe malnutrition. Following feeding plan per [facility]oles[facility] and Nutrition. Plan: - see plan under ARFID problem Assessment & Plan (01/31/2020 1:04 PM CLERK RATING): Assessment: Marlee is admitted on ED Protocol for severe malnutrition. Following feeding plan per [facility]oles[facility] and Nutrition. Plan: - see plan under ARFID problem Assessment & Plan (01/30/2020 10:28 AM CLERK RATING): Assessment: Marlee is admitted on ED Protocol for severe malnutrition. Following feeding plan per [facility]oles[facility] and Nutrition. Plan: - see plan under ARFID problem Assessment & Plan (01/28/2020 4:29 PM CLERK RATING): Assessment: Malnutrition is secondary to ARFID and [...] BID Assessment & Plan (01/24/2020 11:54 AM CLERK RATING): Assessment: Marlee is admitted on ED Protocol for severe malnutrition. Following feeding plan per [facility]olescent [facility] and Nutrition. Plan: - see plan under ARFID problem Assessment & Plan (01/23/2020 7:09 AM CLERK RATING): Assessment: Marlee is admitted on ED Protocol for severe malnutrition. Following feeding plan per [facility]olescent [facility] and Nutrition. Plan: - see plan under ARFID problem Assessment & Plan (01/22/2020 9:48 AM CLERK RATING): Assessment: Malnutrition is secondary to ARFID and [...] () Assessment & Plan (01/22/2020 7:52 AM CLERK RATING): Assessment: Marlee is admitted on ED Protocol for severe malnutrition. Following feeding plan per [facility]olescent [facility] and Nutrition. Plan: - see plan under ARFID problem Assessment & Plan (01/21/2020 10:33 AM CLERK RATING): Assessment: Malnutrition is secondary to ARFID and [...] () Assessment & Plan (01/21/2020 7:40 AM CLERK RATING): Assessment: Marlee is admitted on ED Protocol for severe malnutrition. Following feeding plan per [facility]oles[facility] Nutrition. Plan: - see plan under ARFID problem Assessment & Plan (01/20/2020 7:36 AM CLERK RATING): Assessment: Marlee is admitted on ED Protocol for severe malnutrition. Following feeding plan per Adolescent [facility] and Nutrition. Plan: - see plan under ARFID problem Assessment & Plan (01/19/2020 7:22 AM CLERK RATING): Assessment: Marlee is admitted on ED Protocol for severe malnutrition. Following feeding plan per Adolescent Medicine and Nutrition. Plan: - see plan under ARFID problem Assessment & Plan (01/18/2020 4:25 PM CLERK RATING): Assessment: Marlee Chavez is a 19 year [...] orthostatics Assessment & Plan (01/17/2020 12:38 PM CLERK RATING): Assessment: Marlee Chavez is a 19 year [...] anxiety Assessment & Plan (01/16/2020 1:41 PM CLERK RATING): Assessment: Marlee Chavez is a 19 year [...] anxiety Assessment & Plan (01/15/2020 8:49 PM CLERK RATING): Assessment: Malnutrition is secondary to ARFID and [...] counseling. Assessment & Plan (01/15/2020 11:57 AM CLERK RATING): Assessment: Marlee Chavez is a 19 year [...] anxiety Assessment & Plan (01/14/2020 1:00 PM CLERK RATING): Assessment: Malnutrition is secondary to ARFID and [...] () Assessment & Plan (01/14/2020 9:54 AM CLERK RATING): Assessment: Marlee Chavez is a 19 year [...] anxiety Assessment & Plan (01/13/2020 2:34 PM CLERK RATING): Assessment: Marlee Chavez is a 19 year [...] anxiety Assessment & Plan (01/13/2020 12:01 PM CLERK RATING): Moderate protein-calorie malnutrition Assessment: Marlee Chavez is [...] thereafter Assessment & Plan (01/12/2020 3:40 PM CLERK RATING): Moderate protein-calorie malnutrition Assessment: Marlee Chavez is [...] chart) Assessment & Plan (01/12/2020 1:25 PM CLERK RATING): Assessment: Marlee Chavez is a 19 year [...] anxiety Assessment & Plan (01/11/2020 11:43 AM CLERK RATING): Assessment: Marlee Chavez is a 19 year [...] cysts Assessment & Plan (01/10/2020 9:32 AM CLERK RATING): Assessment: Marlee Chavez is a 19 year [...] cysts Assessment & Plan (01/09/2020 11:08 AM CLERK RATING): Assessment: Marlee Chavez is a 19 year [...] cysts Assessment & Plan (01/08/2020 1:32 PM CLERK RATING): Assessment: Marlee Chavez is a 19 year [...] cysts Assessment & Plan (01/07/2020 2:52 PM CLERK RATING): Assessment: Marlee Chavez is a 19 year [...] cysts Assessment & Plan (01/06/2020 11:27 AM CLERK RATING): Assessment: Marlee Chavez is a 19 year [...] cysts Assessment & Plan (01/05/2020 3:49 PM CLERK RATING): Assessment: Marlee Chavez is a 19 year [...] cysts Assessment & Plan (01/04/2020 1:53 PM CLERK RATING): Assessment: Marlee Chavez is a 19 year [...] cysts Assessment & Plan (01/03/2020 12:34 AM CLERK RATING): Assessment: Marlee Chavez is a 19 year [...] 03/18/2023 Assessment & Plan (01/24/2022 5:04 PM CLERK RATING): Assessment: Marlee Chavez is a 20 year [...] gabapentin Assessment & Plan (01/23/2022 6:56 PM CLERK RATING): Assessment: Marlee Chavez is a 20 year [...] pain Assessment & Plan (01/08/2021 3:05 PM CLERK RATING): Assessment: Patient is an 20 year old [...] I&Os Assessment & Plan (01/07/2021 4:52 PM CLERK RATING): Assessment: Patient is an 20 year old [...] it Assessment & Plan (01/06/2021 6:00 PM CLERK RATING): Assessment: Patient is an 20 year old [...] I&Os Assessment & Plan (01/05/2021 1:27 PM CLERK RATING): Assessment: Patient is an 20 year old [...] I&Os Assessment & Plan (01/04/2021 9:17 PM CLERK RATING): Assessment: Patient is an 20 year old [...] I&Os Assessment & Plan (01/03/2021 8:43 PM CLERK RATING): Assessment: Patient is an 20 year old [...] wearing condom. She has upcoming appointment with trout farmer next month at which time, she will be getting a IUD. Plan: -urine test today -GC, chlamydia, trichomonas testing Assessment & Plan (05/24/2020 2:43 PM CDT): Will get urine Hcg and STI testing. Mom is aware and Marlee is ok with us communicating results to her mother. Purging 03/24/2020 05/24/2020 Assessment & Plan (04/05/2020 3:23 PM CLERK RATING): Assessment: Has been drinking excessive amounts of water and putting her fingers in her mouth to induce vomiting. No recorded emesis since 03/25. Plan: Will limit access to water to 250ml at a time. May only bathe once per day after she has taken her meds, had breakfast and lunch. Assessment & Plan (04/04/2020 12:58 PM CLERK RATING): Assessment: Has been drinking excessive amounts of water and putting her fingers in her mouth to induce vomiting. No recorded emesis since 03/25. Plan: Will limit access to water to 250ml at a time. May only bathe once per day after she has taken her meds, had breakfast and lunch. Assessment & Plan (04/01/2020 11:55 AM CLERK RATING): Assessment: Has been drinking excessive amounts of water and putting her fingers in her mouth to induce vomiting. No recorded emesis since 03/25. Plan: Will limit access to water to 250ml at a time. May only bathe once per day after she has taken her meds, had breakfast and lunch. Assessment & Plan (03/24/2020 4:53 PM CLERK RATING): Assessment: Has been drinking excessive amounts of water and putting her fingers in her mouth to induce vomiting. Plan: Will limit access to water to 250ml at a time. May only bathe once per day after she has taken her meds, had breakfast and lunch. Ovarian cyst 01/12/2020 03/19/2020 Assessment & Plan (03/15/2020 11:10 AM CLERK RATING): Assessment: on ultrasound on R Plan: -Radiology recommended repeat imaging in 6 months for ovarian cysts Assessment & Plan (03/04/2020 1:41 PM CLERK RATING): Assessment: on ultrasound on R Plan: -Radiology recommended repeat imaging in 6 months for ovarian cysts Assessment & Plan (03/04/2020 11:50 AM CLERK RATING): Assessment: on ultrasound on R Plan: -Radiology recommended repeat imaging in 6 months for ovarian cysts Assessment & Plan (02/27/2020 9:58 AM CLERK RATING): Assessment: on ultrasound on R Plan: -Radiology recommended repeat imaging in 6 months for ovarian cysts Assessment & Plan (01/28/2020 11:59 AM CLERK RATING): Assessment: on ultrasound on R Plan: -Radiology recommended repeat imaging in 6 months for ovarian cysts Assessment & Plan (01/27/2020 3:52 PM CLERK RATING): Assessment: on ultrasound on R Plan: -Radiology recommended repeat imaging in 6 months for ovarian cysts Assessment & Plan (01/26/2020 6:01 PM CLERK RATING): Assessment: on ultrasound on R Plan: -Radiology recommended repeat imaging in 6 months for ovarian cysts Assessment & Plan (01/13/2020 2:33 PM CLERK RATING): Assessment: on ultrasound on R Plan: -Radiology recommended repeat imaging in 6 months for ovarian cysts Assessment & Plan (01/12/2020 1:26 PM CLERK RATING): Assessment: on ultrasound on R Plan: -Radiology recommended repeat imaging in 6 months for ovarian cysts Self-injurious behavior 03/25/201705/12 Major depressive disorder, severe 03/21/2017 05/24/2020 Intractable vomiting 020 Encounters * This document contains information received from the source organization and may not represent a complete record from that organization. Date Type Department Care Team Description 11/30/2024 3:20 PM CDT Office Visit [address] [address] Ronel Thornton DO Superior mesenteric artery syndrome (HCC) (Primary Dx); Anorexia 11/19/2024 Travel 11/06/2024 Patient Outreach [facility] Coordination [facility] [place] [address] Harriett Birch, [facility] Follow-up 11/05/2024 Patient Outreach [facility] Coordination [facility] [place] [address] Harriett Birch, [facility] Follow-up 11/05/2024 Patient Outreach [facility] Coordination [facility] [place] [address] Harriett Birch, [facility] Follow-up 11/03/2024 10:41 PM CDT - 11/04/2024 2:34 AM CDT Emergency ER at [address] [address] Karrie Rankin DO Epigastric pain (Primary Dx); Hx of prolonged Q-T interval on ECG; Nausea and vomiting, unspecified vomiting type Discharge Disposition: Home or Self Care 11/03/2024 Travel 10/22/2024 Travel 10/13/2024 Travel 09/22/2024 Telephone [facility] [address] [place] [address] Ronel Thornton DO Medication Request from Last 3 Months Immunizations Immunization Administration Dates Next Due Covid [employer] primary monoval ent 12+ yr 0.3mL Purple [...] Date Recorded Patient Health Questionnaire-2 Score 0 11/30/2024 [facility] Occupat ional Health - Occupational Stress [...] money to buy more. Never true 04/24/19 Within the past 12 months, t he [...] on file Legal Sex Female 6:25 PM CLERK RATING Gender Identity Not on file Sexual Orientation Not on file Last Filed Vital Signs Vital Sign Reading Time Taken Comments Blood Pressure 102/58 11/30/2024 3:26 PM CDT Pulse 73 11/30/2024 3:26 PM CDT Temperature 36.6 C (97.9 F) 11/03/2024 10:36 PM CDT Respiratory Rate 29 11/04/2024 1:15 AM CDT Oxygen Saturation 97% 11/19/2024 10:45 AM CDT Inhaled Oxygen Concentration 21% 06/27/2021 6 :30 PM CDT Weight 47.2 kg (104 lb) 11/30/2024 3:26 PM CDT Height 154.9 cm (5' 1) 11/30/2024 3:26 PM CDT Body Mass Index 19.65 11/30/2024 3:26 PM CDT Plan of Treatment Upcoming Encounters Date Type Department Care Team (Late st Contact Info) Description 01/20/2025 8:20 AM CLERK RATING Office Visit [facility] - Family Medicine [address] [place] [address] [phone] Ronel Thornton DO [address] [place] [id number] 05/03/2025 1:30 PM CDT Office Visit [facility] - [address] [facility], [place] [phone] Moreno Mendes MD [address] [place] [address] Health Maintenance Due Date Last Done Comments HPV VACCINE (1 - 3-dose series) 2017 MENINGOCOCCAL (Group B) VACCINE SHARED DECISION-MAKING (1 of 2 - Standard) 2018 DTAP/TDAP/TD VACCINES (7 - Td or Tdap) 12/16/2023 12/15/2013, 07/08/2007, 02/22/2004, Additional history exists CHLAMYDIA/GONORRHEA SCREENING 11/28/2024 11/29/2023, 06/07/2022, 01/23/2022, Additional history exists INFLUENZA VACCINE (#1) 2025 01/25/2022, 2020 Postponed from 10/12/2024 (Patient Refused) COVID-19 VACCINE ( season) 2025 02/23/2021, 07/26/2020, 07/03/2020 Postponed from 10/12/2024 (Patient Refused) PAP SMEAR 11/28/2026 11/29/2023 ZOSTER VACCINE (1 [...] Procedure Name Priority Date/Time Associated Diagnosis Comments XR ABD OBSTRUCTION SERIES 2VW STAT 11/04/2024 1:02 AM CDT Epigastric pain HCG URINE QUALITATIVE - POCT (IP) INTERFACED Routine 11/04/2024 12:05 AM CDT EKG 15-LEAD STAT 11/03/2024 11:41 PM CDT Hx of prolonged Q-T interval on ECG LIPASE BLOOD STAT 11/03/2024 11:32 PM CDT HCG URINE QUAL POCT NOTIFICATION STAT 11/03/2024 11:18 PM CDT PAP CERVICAL CANCER SCREEN CT/NG/TV APT [...] Recently Relevant to Health Maintenance Results * XR Abd Obstruction Series 2Vw (11/04/2024 1:02 AM CDT) Anatomical Region Laterality Modality Abdomen Computed Radiogr aphy 11/04/2024 8:13 AM CDT Impressions 11/04/2024 8:16 AM CDT IMPRESSION: Nonspecific paucity of bowel gas without gross evidence of obstruction. > Interpreting Provider: Lex Pitts MD on 11/04/2024 8:16 AM Narrative 11/04/2024 8:16 AM CDT PROCEDURE: XR ABD OBSTRUCTION SERIES 2VW DATE/TIME OF EXAM: 11/04/2024 1:02 AM CLINICAL INFORMATION: None relevant/not provided if blank. Indication: R10.13: Epigastric pain Additional History: COMPARISON: 08/21/2022; CT abdomen/pelvis 06/07/2024 TECHNIQUE: Supine frontal and upright radiographs of the abdomen. FINDINGS: There is a paucity of bowel gas, nonspecific. There are no gross findings to suggest bowel obstruction, free intraperitoneal gas or pneumatosis. No abnormal calcifications are seen. Piercing device and intrauterine device are noted. No bone abnormality is seen. The lower chest is normal. Procedure Note Lex Pitts MD - 11/04/2024 PROCEDURE: XR ABD OBSTRUCTION SERIES 2VW DATE/TIME OF EXAM: 11/04/2024 1:02 AM CLINICAL INFORMATION: None relevant/not provided if blank. Indication: R10.13: Epigastric pain Additional History: COMPARISON: 08/21/2022; CT abdomen/pelvis 06/07/2024 TECHNIQUE: Supine frontal and upright radiographs of the abdomen. FINDINGS: There is a paucity of bowel gas, nonspecific. There are no gross findings to suggest bowel obstruction, free intraperitoneal gas or pneumatosis. No abnormal calcifications are seen. Piercing device and intrauterine device are noted. No bone abnormality is seen. The lower chest is normal. IMPRESSION: Nonspecific paucity of bowel gas without gross evidence of obstruction. > Interpreting Provider: Lex Pitts MD on 11/04/2024 8:16 AM us Karrie Rankin DO DIAGNOSTIC IMAGING ORDERABLES Fi nal Result * HCG URINE QUALITATIVE - POCT (IP) INTERFACED (11/04/2024 12:05 AM CDT) Pathologist [facility] HCG Qual Urine Negative Negative 11/04/2024 12:16 AM CDT [facility] Urine URINE / Unknown 11/04/2024 1 2:05 AM CDT 11/04/2024 12:16 AM CDT Karrie Rankin DO LAB - POINT OF CARE ORDERABLES F inal Result [facility] [address] [place], [place] [id number] * EKG 15-Lead (11/03/2024 11:41 PM CDT) Pathologist [facility] Ventricular Rate 117 BPM CG MUSE Atrial Rate 117 BPM CG MUSE P-R Interval 114 ms CG MUSE QRS Duration ms 76 ms CG MUSE Q-T Interval ms 326 ms CG MUSE QTC Calculation (Bezet) 455 ms CG MUSE Calculated P [place] 70 degrees CG MUSE Calculated R [place] 81 degrees CG MUSE Calculated T [place] 61 degrees CG MUSE Interpretation EKG Sinus tachycardia Borderline QT interval Confirmed by FLOR JOHNSON, DARYL ([id number]) on 11/04/2024 9:26:06 AM CG MUSE 11/03/2024 11:4 1 PM CDT 11/04/2024 9:26 AM CDT us Karrie Rankin DO ECG ORDERABLES Edited Result - Final Performing Organization Address City/[facility]/ZIP Co de Phone Number CG MUSE * LIPASE BLOOD (11/03/2024 11:32 PM CDT) Pathologist [facility] Lipase 26 8 - 78 U/L 11/04/2024 12:02 AM CDT [facility] Blood BLOOD SPECIMEN / Unknown Venipuncture / Unknown 11/03/2024 11:32 PM CDT 11/03/2024 11:34 PM CDT Narrative [facility] - 11/04/2024 12:02 AM CDT Lipase results from the Najera Alinity analyzer may not be comparable with other methodologies. Karrie Rankin DO LAB - CHEMISTRY ORDERABLES Final Result [facility] [address] [place] [address], [facility] [phone] * HCG URINE QUAL POCT NOTIFICATION (11/03/2024 11:18 PM CDT) Comment Notification Label Only - See Separate Report 11/04/2024 12:31 AM CDT [facility] Urine URINE / Unknown 11/03/2024 1 1:18 PM CDT 11/03/2024 11:22 PM CDT Karrie Rankin DO LAB - URINALYSIS ORDERABLES Yusra l Result Performing Organization Address City/[facility]/ZIP Co de Phone Number [facility] [address] [place] [address] * (ABNORMAL) PAP CERVICAL CANCER SCREEN CT/NG/TV APT (11/29/2023 11:06 AM CDT) Age Gdln ACOG Testing 21-29 [facility] ACCOUNT BILL Comment: Performed at: - [facility] [address] [id number] Building Maintenance Mechanic: Meredith Gil MD, Phone: [phone] Performed at: - [facility] [id number] Building Maintenance Mechanic: Meredith Gil MD, Phone: [phone] Diagnosis Comment(A) [facility] ACCOUNT BILL Comment: EPITHELIAL [...] - 12/05/2023 5:09 PM CDT Performed at: [facility] [id number] Building Maintenance Mechanic: Meredith Gil MD, Phone: [phone] Specimen Comment: [id number] Specimen Comment: Source.............Cervix Specimen Comment: No. of containers..01 ThinPrep Vial Nai Jurado MD LAB - PATHOLOGY/CYTOLOGY [place] Final Result [facility] ACCOUNT BILL [address] [place] [address] * HIV-1 HIV-2 ANTIBODY + HIV P24 AG PANEL (11/29/2023 10:55 AM CDT) Pathologist [facility] HIV Screen 4th Generation w Reflex Non Reactive Non Reactive [facility] ACCOUNT BILL Comment: HIV-1/HIV-2 antibodies and HIV-1 p24 antigen were NOT detected. There is no laboratory evidence of HIV infection. HIV Negative Blood BLOOD SPECIMEN / Unknown 11/29/2023 10:55 AM CDT 11/29/2023 Narrative [facility] ACCOUNT BILL - 11/30/2023 10:10 AM CDT Performed at: 01 - [facility] [place], [place] [id number] Building Maintenance Mechanic: Karlos Huffman PhD, Phone: [phone] Nai Jurado MD LAB - CHEMISTRY ORDERABLES Fi nal Result Performing Organization Address City/[facility]/ZIP Co de Phone Number [facility] ACCOUNT BILL [address] [place] [address] * HEPATITIS C AB W/RFLX TO HCV RNA QN PCR (12/07/2021) Hepatitis C Antibody NON-REACTI VE NON-REACT [facility] Signal to Cut-Off 0.08 <1.00 [facility] Comment: HCV antibody was non-reactive. There is no laboratory evidence of HCV infection. In most cases, no further action is required. However, if recent HCV exposure is suspected, a test for HCV RNA (test code 68701) is suggested. For additional information please refer to http://education.Liquavista/faq/XAJ19o1 (This link is being provided for informational/ educational purposes only.) Test Performed at: [facility] [address] [place] [address] PURVI PABLO DO,MPH Blood BLOOD SPECIMEN / Unknown 12/07/2021 12/07/2021 10:47 AM CDT Karrie Mack MD LAB - CHEMISTRY ORDERABLES Final Result [facility] [address] [place] [address] from Last 3 Months or Most Recently Relevant to Health Maintenance Insurance [facility] Member Subscriber Plan / Payer (Ef fective 2023-Present) Name:Marlee Newman Relation to Subscriber:Child Name:NAI NEWMAN Date of :1984 (Home) (Work) Address: [address] [place] [address] Payer ID:[id number] (NAIC) Group ID:[id number] Type:Commercial Address: [place] [id number] [facility] Advance Directives * Full Code (Latest [...] 4:54 PM 06/22/2022 2:44 PM Care Teams Truck Shop Mechanic Relationship Specialty Start Date End Date Ronel Thornton DO [address] [place] [address] PCP - General Family Medicine 03/18/23 Ronel Thornton DO [address] [place] [address] PCP - Attributed-[facility] ST 04/12/23
--- OUTSIDE RECORDS SUMMARY | 2024-12-18 12:36 | XMS_ITS | Encounter Summary ---
Author Organization [facility] Address [address] [facility] [place] [address] Care Team Providers Care Chemical Machine Tender Name Role Phone Mellissa Jiménez MD Primary Care Provider [phone] Ronel Thornton DO Primary Care Provider Daphnie Gillespie MD Unavailable Juliana Peralta DAY CARE PROVIDER Unavailable [phone] Juliana Peralta DAY CARE PROVIDER Unavailable [phone] Ronel Thornton DO Unavailable [phone] Kenyatta Taylor RN Unavailable Tiago Lew Unavailable [phone] Reason for Visit * Reason Onset Date Comments Forms/questionnaires 01/23/2021 Encounter Details Date Type Department Care Team (Late st Contact Info) Description 01/23/2021 Telephone [facility] Pediatrics - Surgery [address] [place] [address] Daphnie Gillespie MD [address] [place] [phone] Forms/questionnaires Social History Tobacco Use Types [...] on file Legal Sex Female 6:25 PM DESIGN EDITOR Gender Identity Not on file Sexual Orientation Not on file COVID-19 Exposure Response Date Recorded In the last month, have you been in contact with someone who was confirmed or suspected to have Coronavirus / COVID-19? No / Unsure 01/24/2021 11:47 AM DESIGN EDITOR documented as of this encounter Functional Status [...] wanted to know if it was received. GN EDITOR documented in this encounter Plan of Treatment Upcoming Encounters Date Type Department Care Team (Late st Contact Info) Description 01/20/2025 8:20 AM DESIGN EDITOR Office Visit [facility] - Family Medicine [address] [place] [address] Ronel Thornton DO [address] [place] [address] 05/03/2025 1:30 PM CDT Office Visit [facility] - [address] [facility], [place] [phone] Moreno Mendes MD [address] [place] [phone] documented as of this encounter Visit Diagnoses Not on filedocumented in this encounter Additional Health Concerns Infection Onset Date Last Indicated Resolved Time COVID-19 Under Investigation 08/10/2021 08/10/2021 08/10/2021 2:59 AM CDT documented as of this encounter Care Teams Chemical Machine Tender Relationship Specialty Start Date End Date Mellissa Jiménez MD [address] [place] [address] [place] [address] PCP - General Family Medicine 04/25/20 03/17/23 Ronel Thornton DO [address] [place] [address] PCP - General Family Medicine 03/18/23 Daphnie Gillespie MD [address] [place] [address] PCP - Attributed-[facility] ST[facility] 02/11/23 04/11/23 [place] [address] [place] [address] PCP - Attributed-[facility] ST[facility] 04/12/23 Juliana Peralta MSW Outpatient Model Maker Plaster Care Management 04/24/2304/11 Juliana Peralta MSW Outpatient Model Maker Plaster Care Management 04/30/2304/12 Kenyatta Taylor RN [address] [address] Proposal EngineerPrinted Products Assembler 09/02/23 10/04/23 Tiago Lew Care Coordination Specialist Care Management 09/26/23 11/10/23 documented as of this encounter
--- NOTE | 2024-12-18 13:52 | PC.NURSE ---
RN spoke with MD about patient's concerns with abdominal pain. Awaiting MD orders.
--- OUTSIDE RECORDS SUMMARY | 2024-12-18 14:15 | XMS_ITS | Encounter Summary ---
Author Organization [facility] Address [address] [place] [address] Care Team Providers Care Unloader Name Role Phone Mellissa Jiménez MD Primary Care Provider [phone] Ronel Thornton DO Primary Care Provider Daphnie Gillespie MD Unavailable Juliana Peralta EXPLOSIVE OPERATOR GRENADE Unavailable [phone] Juliana Peralta EXPLOSIVE OPERATOR GRENADE Unavailable [phone] Ronel Thornton DO Unavailable [phone] Kenyatta Taylor RN Unavailable Tiago Lew Unavailable [phone] Reason for Visit * Reason Onset Date Comments Forms/questionnaires 01/23/2021 Encounter Details Date Type Department Care Team (Late st Contact Info) Description 01/23/2021 Telephone [facility] Pediatrics - Surgery [address] [place] [address] Daphnie Gillespie MD [address] [place] [phone] Forms/questionnaires Social History Tobacco Use Types [...] on file Legal Sex Female 6:25 PM SANDING MACHINE TENDER AUTOMATIC Gender Identity Not on file Sexual Orientation Not on file COVID-19 Exposure Response Date Recorded In the last month, have you been in contact with someone who was confirmed or suspected to have Coronavirus / COVID-19? No / Unsure 01/24/2021 11:47 AM SANDING MACHINE TENDER AUTOMATIC documented as of this encounter Functional Status [...] wanted to know if it was received. ING MACHINE TENDER AUTOMATIC documented in this encounter Plan of Treatment Upcoming Encounters Date Type Department Care Team (Late st Contact Info) Description 01/20/2025 8:20 AM SANDING MACHINE TENDER AUTOMATIC Office Visit [facility] - Family Medicine [address] [place] [address] Ronel Thornton DO [address] [place] [address] 05/03/2025 1:30 PM CDT Office Visit [facility] Physician [facility] - [address] [facility], [place] [address] Moreno Mendes MD [address] [place] [phone] documented as of this encounter Visit Diagnoses Not on filedocumented in this encounter Additional Health Concerns Infection Onset Date Last Indicated Resolved Time COVID-19 Under Investigation 08/10/2021 08/10/2021 08/10/2021 2:59 AM CDT documented as of this encounter Care Teams Unloader Relationship Specialty Start Date End Date Mellissa Jiménez MD [address] [place] [address] [place] [address] PCP - General Family Medicine 04/25/20 03/17/23 Ronel Thornton DO [address] [place] [address] PCP - General Family Medicine 03/18/23 Daphnie Gillespie MD [address] [place] [address] PCP - Attributed-[facility] ST[facility] 02/11/23 04/11/23 [place] [address] [place] [address] PCP - Attributed-[facility] ST[facility] 04/12/23 Juliana Peralta MSW Outpatient Disassembler Product Care Management 04/24/2304/11 Juliana Peralta MSW Outpatient Disassembler Product Care Management 04/30/2304/12 Kenyatta Taylor RN [address] [address] Director Of Corporate CommunicationsCaser Shoe Parts 09/02/23 10/04/23 Tiago Lew Care Coordination Specialist Care Management 09/26/23 11/10/23 documented as of this encounter
--- OUTSIDE RECORDS SUMMARY | 2024-12-18 14:15 | XMS_ITS | Encounter Summary ---
Author Organization [facility] Address [address] [facility] [place] [address] Care Team Providers Care Psychiatry Resident Name Role Phone Mellissa Jiménez MD Primary Care Provider Ronel Thornton DO Primary Care Provider [phone] Daphnie Gillespie MD Unavailable Juliana Peralta CHIEF OF POLICE Unavailable [phone] Juliana Peralta CHIEF OF POLICE Unavailable [phone] Ronel Thornton DO Unavailable Kenyatta Taylor RN Unavailable Tiago Lew Unavailable [phone] Reason for Visit * Reason Onset Date Comments Appointment 10/05/2020 Contraceptive management 10/05/2020 Encounter Details Date Type Department Care Team (Late st Contact Info) Description 10/05/2020 Telephone [facility] [address] [place], [place] [phone] [place] [address] [place] [address] Appointment; Contraceptive management Social History Tobacco Use Types Packs/Day Years Used Date Smoking Tobacco: Never Smokeless Tobacco: Never Alcohol Use Standard Drinks/Week Comments No 0 (1 standard drink = 0.6 oz pur e alcohol) Comments No Sex and Gender Information Value Date Recorded Sex Assigned at Not on file Legal Sex Female 6:25 PM CONTROL CHEMIST Gender Identity Not on file Sexual Orientation [...] the office yet to get scheduled. CB# [phone] documented in this encounter Plan of Treatment Upcoming Encounters Date Type Department Care Team (Late st Contact Info) Description 01/20/2025 8:20 AM CONTROL CHEMIST Office Visit [facility] Medical [facility] - Family Medicine [address] [place] [address] Ronel Thornton DO [address] [place] [address] 05/03/2025 1:30 PM CDT Office Visit [facility] - [address] [facility], [place] [address] Moreno Mendes MD [address] [place] [address] documented as of this encounter Visit Diagnoses Not on filedocumented in this encounter Additional Health Concerns Infection Onset Date Last Indicated Resolved Time COVID-19 Under Investigation 08/10/2021 08/10/2021 08/10/2021 2:59 AM CDT documented as of this encounter Care Teams Psychiatry Resident Relationship Specialty Start Date End Date Mellissa Jiménez MD [address] [place] [address] [place] [address] PCP - General Family Medicine 04/25/20 03/17/23 Ronel Thornton DO [address] [place] [address] PCP - General Family Medicine 03/18/23 Daphnie Gillespie MD [address] [place] [address] PCP - Attributed-[facility] 02/11/23 04/11/23 Ronel Thornton DO [address] [place] [address] PCP - Attributed-[facility] ST[facility] 04/12/23 Juliana Peralta MSW Outpatient Senior Python Developer Care Management 04/24/2304/11 Juliana Peralta MSW Outpatient Senior Python Developer Care Management 04/30/2304/12 Kenyatta Taylor RN [address] [address] Accounting Manager Assistant ControllerJailer/Training Officer 09/02/23 10/04/23 Tiago Lew Care Coordination Specialist Care Management 09/26/23 11/10/23 documented as of this encounter
--- OUTSIDE RECORDS SUMMARY | 2024-12-18 14:15 | XMS_ITS | Clinical Summary ---
Author Organization [facility] Address [address] [place] [address] Care Team Providers Care Teen Counselor Name Role Phone Ronel Thornton DO Primary Care Provider [phone] Ronel Thornton DO Unavailable [phone] Source Comments [facility],non-owned Affiliates and Associated Physician Practices is amultiple site organization consisting of ambulatory clinics and hospital sitesin [place], [place], [place] and [place]. This disclosure is being madepursuant to the Care Everywhere program and may not contain all information available regarding this patient. Last updated 17.[facility] Allergies No known active allergies Medications * [...] 01/18/2020 Assessment & Plan (01/08/2021 3:06 PM WEATHER CLERK): Assessment: Major depressive disorder, generalized anxiety disorder and substance abuse disorder. 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 Plan: - klonopin and neurontin are all habit forming, concerns they are addictive, plan to discuss correction goal of weaning as outpatient - must stop all alcohol and MJ - Increased Prozac to 40 - Increased zyprexa to 15 - Melatonin 6mg QHS for sleep - avoid narcotics - taper off zyprexa as outpatient per psychiatry recs Assessment & Plan (01/06/2021 5:55 PM WEATHER CLERK): Assessment: Major depressive disorder, generalized anxiety disorder and substance abuse disorder. 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 Assessment & Plan (04/07/2020 6:45 PM WEATHER CLERK): Assessment: Hx of major depressive disorder and generalized anxiety disorder. Pt has been seen by psychiatry and psychology, now improved since starting/optimizing zyprexa QHS, clonazepam TID, and prozac QD. Plan: - Prozac 30 mg QD (dose of 30 mg started on 03/09/20, Prozac initially began 02/07) - Zyprexa 5 mg QHS - Klonopin 0.5mg TID Assessment & Plan (04/06/2020 3:54 PM WEATHER CLERK): Assessment: Hx of major depressive disorder and [...] TID Assessment & Plan (04/05/2020 10:49 AM WEATHER CLERK): Assessment: Hx of major depressive disorder and [...] TID Assessment & Plan (04/04/2020 10:23 AM WEATHER CLERK): Assessment: Hx of major depressive disorder and [...] TID Assessment & Plan (04/03/2020 6:30 PM WEATHER CLERK): Assessment: Hx of major depressive disorder and [...] TID Assessment & Plan (04/01/2020 11:15 AM WEATHER CLERK): Assessment: Hx of major depressive disorder and [...] dose) Assessment & Plan (03/31/2020 10:07 AM WEATHER CLERK): Assessment: Hx of major depressive disorder and [...] dose) Assessment & Plan (03/30/2020 2:24 PM WEATHER CLERK): Assessment: Hx of major depressive disorder and generalized anxiety disorder. Pt seen by psychiatry on admission and was started elavil, but continued to have anxiety. Elavil was discontinued due to persistent tachycardia and hypotension. [facility] she was started on zyprexa QHS, [...] dose) Assessment & Plan (03/29/2020 6:50 AM WEATHER CLERK): Assessment: Hx of major depressive disorder and [...] dose) Assessment & Plan (03/27/2020 10:30 AM WEATHER CLERK): Assessment: Hx of major depressive disorder and [...] dose) Assessment & Plan (03/26/2020 11:15 AM WEATHER CLERK): Assessment: Hx of major depressive disorder and [...] dose) Assessment & Plan (03/25/2020 8:58 AM WEATHER CLERK): Assessment: Hx of major depressive disorder and [...] dose) Assessment & Plan (03/24/2020 6:44 AM WEATHER CLERK): Assessment: Hx of major depressive disorder and generalized anxiety disorder. Pt seen by psychiatry on admission and was started elavil, but continued to have anxiety. Elavil was discontinued due to persistent tachycardia and hypotension. [facility], she was started on zyprexa QHS, [...] dose) Assessment & Plan (03/23/2020 12:19 PM WEATHER CLERK): Assessment: Hx of major depressive disorder and [...] dose) Assessment & Plan (03/22/2020 10:47 AM WEATHER CLERK): Assessment: Hx of major depressive disorder and [...] recommendations) Assessment & Plan (03/21/2020 3:11 PM WEATHER CLERK): Assessment: Hx of major depressive disorder and [...] mg. Assessment & Plan (03/20/2020 10:31 AM WEATHER CLERK): Assessment: Hx of major depressive disorder and [...] 03/21. Assessment & Plan (03/19/2020 10:38 AM WEATHER CLERK): Assessment: Hx of major depressive disorder and [...] withdrawal Assessment & Plan (03/18/2020 12:58 PM WEATHER CLERK): Assessment: Hx of major depressive disorder and [...] anxiety Assessment & Plan (03/17/2020 10:33 AM WEATHER CLERK): Assessment: Hx of major depressive disorder and [...] appreciated Assessment & Plan (03/16/2020 2:24 PM WEATHER CLERK): Assessment: Hx of major depressive disorder and [...] recommendations Assessment & Plan (03/15/2020 11:11 AM WEATHER CLERK): Assessment: Hx of major depressive disorder and [...] anxiety Assessment & Plan (03/14/2020 6:28 AM WEATHER CLERK): Assessment: Hx of major depressive disorder and [...] anxiety Assessment & Plan (03/13/2020 6:28 AM WEATHER CLERK): Assessment: Hx of major depressive disorder and [...] anxiety Assessment & Plan (03/12/2020 11:35 AM WEATHER CLERK): Assessment: Hx of major depressive disorder and [...] anxiety Assessment & Plan (03/11/2020 12:43 PM WEATHER CLERK): Assessment: Hx of major depressive disorder and [...] anxiety Assessment & Plan (03/10/2020 6:11 AM WEATHER CLERK): Assessment: Hx of major depressive disorder and [...] anxiety Assessment & Plan (03/09/2020 6:24 AM WEATHER CLERK): Assessment: Hx of major depressive disorder and [...] anxiety Assessment & Plan (03/08/2020 10:51 AM WEATHER CLERK): Assessment: Hx of major depressive disorder and [...] anxiety Assessment & Plan (03/07/2020 9:15 AM WEATHER CLERK): Assessment: Hx of major depressive disorder and [...] -Develop daily schedule with assistance of children's aide-Alma Assessment & Plan (03/06/2020 10:09 AM WEATHER CLERK): Assessment: Hx of major depressive disorder and [...] anxiety Assessment & Plan (03/05/2020 9:56 AM WEATHER CLERK): Assessment: Hx of major depressive disorder and [...] anxiety Assessment & Plan (03/04/2020 12:58 PM WEATHER CLERK): Assessment: Hx of major depressive disorder and [...] anxiety Assessment & Plan (03/03/2020 3:16 PM WEATHER CLERK): Assessment: Hx of major depressive disorder and [...] anxiety Assessment & Plan (03/01/2020 12:04 PM WEATHER CLERK): Assessment: Hx of major depressive disorder and [...] anxiety Assessment & Plan (02/29/2020 12:53 PM WEATHER CLERK): Assessment: Hx of major depressive disorder and [...] anxiety Assessment & Plan (02/28/2020 9:22 AM WEATHER CLERK): Assessment: Hx of major depressive disorder and [...] anxiety Assessment & Plan (02/27/2020 10:27 AM WEATHER CLERK): Assessment: Hx of major depressive disorder and [...] negative Assessment & Plan (02/26/2020 11:12 AM WEATHER CLERK): Assessment: Hx of major depressive disorder and [...] pending Assessment & Plan (02/25/2020 9:33 AM WEATHER CLERK): Assessment: Hx of major depressive disorder and [...] pending Assessment & Plan (02/24/2020 6:51 AM WEATHER CLERK): Assessment: Hx of major depressive disorder and [...] pending Assessment & Plan (02/23/2020 10:19 AM WEATHER CLERK): Assessment: Hx of major depressive disorder and [...] pending Assessment & Plan (02/22/2020 11:07 AM WEATHER CLERK): Assessment: Hx of major depressive disorder and [...] QHS Assessment & Plan (02/21/2020 10:54 AM WEATHER CLERK): Assessment: History of major depressive disorder and [...] tablet Assessment & Plan (02/20/2020 11:33 AM WEATHER CLERK): Assessment: History of major depressive disorder and [...] tablet Assessment & Plan (02/19/2020 3:05 PM WEATHER CLERK): Assessment: History of major depressive disorder and [...] tablet Assessment & Plan (02/18/2020 10:13 AM WEATHER CLERK): Assessment: History of major depressive disorder and [...] tablet Assessment & Plan (02/17/2020 12:26 PM WEATHER CLERK): Assessment: History of major depressive disorder and [...] tablet Assessment & Plan (02/16/2020 1:14 PM WEATHER CLERK): Assessment: History of major depressive disorder and [...] tablet Assessment & Plan (02/15/2020 12:31 PM WEATHER CLERK): Assessment: History of major depressive disorder and [...] tablet Assessment & Plan (02/14/2020 2:24 PM WEATHER CLERK): Assessment: History of major depressive disorder and [...] tablet Assessment & Plan (02/13/2020 12:00 PM WEATHER CLERK): Assessment: History of major depressive disorder and [...] tablet Assessment & Plan (02/12/2020 11:20 AM WEATHER CLERK): Assessment: History of major depressive disorder and [...] tablet Assessment & Plan (02/11/2020 11:54 AM WEATHER CLERK): Assessment: History of major depressive disorder and [...] tablet Assessment & Plan (02/10/2020 12:09 PM WEATHER CLERK): Assessment: History of major depressive disorder and [...] tablet Assessment & Plan (02/09/2020 11:50 AM WEATHER CLERK): Assessment: History of major depressive disorder and [...] [place] Assessment & Plan (02/08/2020 12:54 PM WEATHER CLERK): Assessment: History of major depressive disorder and [...] [place] Assessment & Plan (02/07/2020 11:47 AM WEATHER CLERK): Assessment: History of major depressive disorder and [...] [place] Assessment & Plan (02/06/2020 8:12 AM WEATHER CLERK): Assessment: History of major depressive disorder and [...] [place] Assessment & Plan (02/05/2020 9:12 AM WEATHER CLERK): Assessment: History of major depressive disorder and [...] [place] Assessment & Plan (02/04/2020 12:43 PM WEATHER CLERK): Assessment: History of major depressive disorder and [...] [place] Assessment & Plan (02/03/2020 2:28 PM WEATHER CLERK): Assessment: History of major depressive disorder and [...] [place] Assessment & Plan (02/02/2020 4:02 PM WEATHER CLERK): Assessment: History of major depressive disorder and [...] [place] Assessment & Plan (02/01/2020 12:12 PM WEATHER CLERK): Assessment: History of major depressive disorder and [...] [place] Assessment & Plan (01/31/2020 1:04 PM WEATHER CLERK): Assessment: History of major depressive disorder and [...] [place] Assessment & Plan (01/30/2020 10:30 AM WEATHER CLERK): Assessment: History of major depressive disorder and [...] [place] Assessment & Plan (01/29/2020 9:40 PM WEATHER CLERK): Assessment: History of major depressive disorder and [...] [place] Assessment & Plan (01/28/2020 11:59 AM WEATHER CLERK): Assessment: History of major depressive disorder and [...] lunch Assessment & Plan (01/27/2020 3:57 PM WEATHER CLERK): Assessment: History of major depressive disorder and [...] lunch Assessment & Plan (01/26/2020 6:01 PM WEATHER CLERK): Assessment: History of major depressive disorder and [...] [place] Assessment & Plan (01/25/2020 2:56 PM WEATHER CLERK): Assessment: History of major depressive disorder and [...] PO. Assessment & Plan (01/24/2020 8:11 AM WEATHER CLERK): Assessment: History of major depressive disorder and [...] (02/22/20) Assessment & Plan (01/23/2020 7:09 AM WEATHER CLERK): Assessment: History of major depressive disorder and [...] (02/22/20) Assessment & Plan (01/22/2020 7:52 AM WEATHER CLERK): Assessment: History of major depressive disorder and [...] (02/22/20) Assessment & Plan (01/21/2020 7:40 AM WEATHER CLERK): Assessment: History of major depressive disorder and [...] (02/22/20) Assessment & Plan (01/20/2020 7:36 AM WEATHER CLERK): Assessment: History of major depressive disorder and [...] (02/22/20) Assessment & Plan (01/19/2020 7:22 AM WEATHER CLERK): Assessment: History of major depressive disorder and [...] (02/22/20) Assessment & Plan (01/18/2020 4:35 PM WEATHER CLERK): Assessment: History of major depressive disorder and [...] range. Assessment & Plan (04/08/2020 1:31 PM WEATHER CLERK): Assessment: Malnutrition is secondary to ARFID, SMA [...] PT Assessment & Plan (04/07/2020 2:52 PM WEATHER CLERK): Assessment: Malnutrition is secondary to ARFID, SMA [...] PT Assessment & Plan (04/07/2020 6:44 PM WEATHER CLERK): Assessment: Marlee is a 19 year old [...] follow up with adolescent medicine on 04/18, [facility] on 05/02, and and scheduling Psych intake visit SOCIAL: - General medicine team spoke with and updated mother on 04/06 LABS: daily urine spec gravity, BMP/Mg/Phos Q / Assessment & Plan (04/06/2020 6:45 PM WEATHER CLERK): Assessment: Marlee is a 19 year old [...] Q Assessment & Plan (04/05/2020 3:22 PM WEATHER CLERK): Assessment: Malnutrition is secondary to ARFID, SMA [...] PT Assessment & Plan (04/05/2020 10:49 AM WEATHER CLERK): Assessment: Marlee is a 19 year old [...] / Assessment & Plan (04/04/2020 3:59 PM WEATHER CLERK): Assessment: Malnutrition is secondary to ARFID, SMA [...] daily Assessment & Plan (04/04/2020 10:21 AM WEATHER CLERK): Assessment: Marlee is a 19 year old [...] / Assessment & Plan (04/03/2020 12:59 PM WEATHER CLERK): Assessment: Marlee is a 19 year old [...] daily Assessment & Plan (04/02/2020 4:19 PM WEATHER CLERK): Assessment: Marlee is a 19 year old [...] daily Assessment & Plan (04/01/2020 11:55 AM WEATHER CLERK): Assessment: Malnutrition is secondary to ARFID and [...] daily Assessment & Plan (04/01/2020 11:15 AM WEATHER CLERK): Assessment: Marlee is a 19 year old [...] daily Assessment & Plan (03/31/2020 12:05 PM WEATHER CLERK): Assessment: Malnutrition is secondary to ARFID and [...] daily Assessment & Plan (03/31/2020 10:06 AM WEATHER CLERK): Assessment: Marlee is a 19 year old [...] daily Assessment & Plan (03/30/2020 2:24 PM WEATHER CLERK): Assessment: Marlee is a 19 year old [...] daily Assessment & Plan (03/29/2020 10:40 AM WEATHER CLERK): Assessment: Marlee is a 19 year old [...] daily Assessment & Plan (03/28/2020 12:29 PM WEATHER CLERK): Assessment: Marlee is a 19 year old [...] daily Assessment & Plan (03/27/2020 10:34 AM WEATHER CLERK): Assessment: Marlee is a 19 year old [...] daily Assessment & Plan (03/26/2020 11:20 AM WEATHER CLERK): Assessment: Marlee is a 19 year old [...] daily Assessment & Plan (03/25/2020 12:30 PM WEATHER CLERK): Assessment: Marlee is a 19 year old [...] allowed in room. May have water from [employer] cup. - May take shower while sitting [...] daily Assessment & Plan (03/24/2020 5:02 PM WEATHER CLERK): Assessment: Malnutrition is secondary to ARFID and [...] anxiety Assessment & Plan (03/24/2020 11:19 AM WEATHER CLERK): Assessment: Marlee is a 19 year old [...] daily Assessment & Plan (03/23/2020 12:20 PM WEATHER CLERK): Assessment: Marlee is a 19 year old [...] daily Assessment & Plan (03/22/2020 12:20 PM WEATHER CLERK): Assessment: Marlee is a 19 year old [...] daily Assessment & Plan (03/21/2020 3:10 PM WEATHER CLERK): Assessment: Marlee is a 19 year old [...] 03/15/2020. Assessment & Plan (03/20/2020 10:32 AM WEATHER CLERK): Assessment: Marlee is a 19 year old [...] 03/15/2020. Assessment & Plan (03/19/2020 10:37 AM WEATHER CLERK): Assessment: Marlee is a 19 year old [...] 03/15/2020. Assessment & Plan (03/18/2020 1:00 PM WEATHER CLERK): Assessment: Marlee is a 19 year old [...] 03/15/2020. Assessment & Plan (03/17/2020 10:36 AM WEATHER CLERK): Assessment: Marlee is a 19 year old [...] 03/15/2020. Assessment & Plan (03/16/2020 2:10 PM WEATHER CLERK): Assessment: Marlee is a 19 year old [...] 03/15/2020. Assessment & Plan (03/15/2020 11:10 AM WEATHER CLERK): Assessment: Marlee is a 19 year old [...] 03/15/2020 Assessment & Plan (03/14/2020 9:53 AM WEATHER CLERK): Assessment: Marlee is a 19 year old [...] 03/15/2020 Assessment & Plan (03/13/2020 9:39 AM WEATHER CLERK): Assessment: Marlee is a 19 year old [...] week Assessment & Plan (03/12/2020 11:35 AM WEATHER CLERK): Assessment: Marlee is a 19 year old [...] week Assessment & Plan (03/11/2020 12:43 PM WEATHER CLERK): Assessment: Marlee is a 19 year old [...] week Assessment & Plan (03/10/2020 9:12 AM WEATHER CLERK): Assessment: Marlee is a 19 year old [...] in Assessment & Plan (03/09/2020 10:22 AM WEATHER CLERK): Assessment: Marlee is a 19 year old [...] in Assessment & Plan (03/08/2020 10:52 AM WEATHER CLERK): Assessment: Marlee is a 19 year old [...] in Assessment & Plan (03/07/2020 9:18 AM WEATHER CLERK): Assessment: Marlee is a 19 year old [...] in Assessment & Plan (03/06/2020 10:09 AM WEATHER CLERK): Assessment: Marlee is a 19 year old [...] in Assessment & Plan (03/05/2020 9:56 AM WEATHER CLERK): Assessment: Marlee is a 19 year old [...] in Assessment & Plan (03/04/2020 12:58 PM WEATHER CLERK): Assessment: Marlee is a 19 year old [...] A/P Assessment & Plan (03/03/2020 3:15 PM WEATHER CLERK): Assessment: Marlee is a 19 year old [...] A/P Assessment & Plan (03/02/2020 12:06 PM WEATHER CLERK): Assessment: Marlee is a 19 year old [...] A/P Assessment & Plan (03/01/2020 12:05 PM WEATHER CLERK): Assessment: Marlee is a 19 year old [...] A/P Assessment & Plan (02/29/2020 12:52 PM WEATHER CLERK): Assessment: Marlee is a 19 year old [...] A/P Assessment & Plan (02/28/2020 9:12 AM WEATHER CLERK): Assessment: Marlee is a 19 year old [...] A/P Assessment & Plan (02/27/2020 10:03 AM WEATHER CLERK): Assessment: Marlee is a 19 year old [...] A/P Assessment & Plan (02/26/2020 11:12 AM WEATHER CLERK): Assessment: Marlee is a 19 year old [...] A/P Assessment & Plan (02/25/2020 9:32 AM WEATHER CLERK): Assessment: Marlee is a 19 year old [...] A/P Assessment & Plan (02/24/2020 10:42 AM WEATHER CLERK): Assessment: Marlee is a 19 year old [...] A/P Assessment & Plan (02/23/2020 10:22 AM WEATHER CLERK): Assessment: Marlee is a 19 year old [...] A/P Assessment & Plan (02/22/2020 11:25 AM WEATHER CLERK): Assessment: Marlee is a 19 year old [...] A/P Assessment & Plan (02/21/2020 10:54 AM WEATHER CLERK): Assessment: Marlee is a 19 year old [...] A/P Assessment & Plan (02/20/2020 11:31 AM WEATHER CLERK): Assessment: Marlee is a 19 year old [...] A/P Assessment & Plan (02/19/2020 3:04 PM WEATHER CLERK): Assessment: Marlee is a 19 year old [...] TPN. Assessment & Plan (02/18/2020 10:14 AM WEATHER CLERK): Assessment: Marlee is a 19 year old [...] Sat) Assessment & Plan (02/17/2020 12:30 PM WEATHER CLERK): Assessment: Marlee is a 19 year old [...] pending Assessment & Plan (02/16/2020 2:29 PM WEATHER CLERK): Assessment: Marlee is a 19 year old [...] pending Assessment & Plan (02/15/2020 12:33 PM WEATHER CLERK): Assessment: Marlee is a 19 year old [...] pending Assessment & Plan (02/14/2020 2:23 PM WEATHER CLERK): Assessment: Marlee is a 19 year old [...] pending Assessment & Plan (02/13/2020 11:59 AM WEATHER CLERK): Assessment: Marlee is a 19 year old [...] pending Assessment & Plan (02/12/2020 11:49 AM WEATHER CLERK): Assessment: Marlee is a 19 year old [...] recs Assessment & Plan (02/11/2020 11:56 AM WEATHER CLERK): Assessment: Marlee is a 19 year old [...] recs Assessment & Plan (02/10/2020 12:11 PM WEATHER CLERK): Assessment: Marlee is a 19 year old [...] SG) Assessment & Plan (02/09/2020 11:49 AM WEATHER CLERK): Assessment: Marlee is a 19 year old [...] SG) Assessment & Plan (02/08/2020 12:54 PM WEATHER CLERK): Assessment: Marlee is a 19 year old [...] recs. Assessment & Plan (02/07/2020 12:06 PM WEATHER CLERK): Assessment: Marlee is a 19 year old [...] SG) Assessment & Plan (02/06/2020 8:12 AM WEATHER CLERK): Assessment: Marlee is a 19 year old [...] SG) Assessment & Plan (02/05/2020 9:12 AM WEATHER CLERK): Assessment: Marlee is a 19 year old [...] TG) Assessment & Plan (02/04/2020 12:52 PM WEATHER CLERK): Assessment: Marlee is a 19 year old [...] TG) Assessment & Plan (02/03/2020 2:38 PM WEATHER CLERK): Assessment: Marlee is a 19 year old [...] TG) Assessment & Plan (02/02/2020 4:02 PM WEATHER CLERK): Assessment: Marlee is a 19 year old [...] QOD Assessment & Plan (02/01/2020 12:08 PM WEATHER CLERK): Assessment: Marlee is a 19 year old [...] RBCs. Assessment & Plan (01/31/2020 1:05 PM WEATHER CLERK): Assessment: Marlee is a 19 year old [...] hematuria Assessment & Plan (01/30/2020 10:30 AM WEATHER CLERK): Assessment: Marlee is a 19 year old [...] 10.2 Assessment & Plan (01/29/2020 9:39 PM WEATHER CLERK): Assessment: Marlee is a 19 year old [...] syndrome Assessment & Plan (01/28/2020 11:59 AM WEATHER CLERK): Assessment: Marlee is a 19 year old [...] QOD Assessment & Plan (01/27/2020 3:59 PM WEATHER CLERK): Assessment: Marlee is a 19 year old [...] QOD Assessment & Plan (01/26/2020 5:14 PM WEATHER CLERK): Assessment: Marlee is a 19 year old [...] QOD Assessment & Plan (01/25/2020 2:58 PM WEATHER CLERK): Assessment: Marlee is a 19 year old [...] QOD Assessment & Plan (01/24/2020 11:54 AM WEATHER CLERK): Assessment: Marlee is a 19 year old [...] orthostatics Assessment & Plan (01/23/2020 7:09 AM WEATHER CLERK): Assessment: Marlee is a 19 year old [...] orthostatics Assessment & Plan (01/22/2020 4:25 PM WEATHER CLERK): Assessment: Marlee is a 19 year old [...] orthostatics Assessment & Plan (01/21/2020 8:15 AM WEATHER CLERK): Assessment: Marlee Chavez is a 19 year [...] orthostatics Assessment & Plan (01/20/2020 7:36 AM WEATHER CLERK): Assessment: Marlee Chavez is a 19 year [...] orthostatics Assessment & Plan (01/19/2020 7:20 AM WEATHER CLERK): Assessment: Marlee Chavez is a 19 year [...] orthostatics Assessment & Plan (01/18/2020 4:30 PM WEATHER CLERK): Assessment: Marlee Chavez is a 19 year [...] consult Assessment & Plan (03/27/2020 10:35 AM WEATHER CLERK): Assessment: Marlee is admitted on ED Protocol for severe malnutrition. Following feeding plan per Adolescent Medicine and Nutrition. Plan: - see plan under ARFID problem Assessment & Plan (03/26/2020 11:20 AM WEATHER CLERK): Assessment: Marlee is admitted on ED Protocol for severe malnutrition. Following feeding plan per Adolescent Medicine and Nutrition. Plan: - see plan under ARFID problem Assessment & Plan (03/24/2020 11:19 AM WEATHER CLERK): Assessment: Marlee is admitted on ED Protocol for severe malnutrition. Following feeding plan per Adolescent Medicine and Nutrition. Plan: - see plan under ARFID problem Assessment & Plan (03/23/2020 9:00 AM WEATHER CLERK): Assessment: Marlee is admitted on ED Protocol for severe malnutrition. Following feeding plan per Adolescent Medicine and Nutrition. Plan: - see plan under ARFID problem Assessment & Plan (03/22/2020 12:21 PM WEATHER CLERK): Assessment: Marlee is admitted on ED Protocol for severe malnutrition. Following feeding plan per Adolescent Medicine and Nutrition. Plan: - see plan under ARFID problem Assessment & Plan (03/17/2020 4:26 PM WEATHER CLERK): Assessment: Malnutrition is secondary to ARFID and [...] anxiety Assessment & Plan (03/15/2020 11:10 AM WEATHER CLERK): Assessment: Marlee is admitted on ED Protocol for severe malnutrition. Following feeding plan per Adolescent Medicine and Nutrition. Plan: - see plan under ARFID problem Assessment & Plan (03/10/2020 11:17 AM WEATHER CLERK): Assessment: Malnutrition is secondary to ARFID and [...] needed Assessment & Plan (03/06/2020 10:09 AM WEATHER CLERK): Assessment: Marlee is admitted on ED Protocol for severe malnutrition. Following feeding plan per Adolescent Medicine and Nutrition. Plan: - see plan under ARFID problem Assessment & Plan (03/04/2020 1:41 PM WEATHER CLERK): Assessment: Marlee is admitted on ED Protocol for severe malnutrition. Following feeding plan per Adolescent Medicine and Nutrition. Plan: - see plan under ARFID problem Assessment & Plan (03/04/2020 11:50 AM WEATHER CLERK): Assessment: Marlee is admitted on ED Protocol for severe malnutrition. Following feeding plan per [facility]olescent [facility] Nutrition. Plan: - see plan under ARFID problem Assessment & Plan (03/03/2020 3:53 PM WEATHER CLERK): Assessment: Malnutrition is secondary to ARFID and [...] dad. Assessment & Plan (02/27/2020 9:57 AM WEATHER CLERK): Assessment: Marlee is admitted on ED Protocol for severe malnutrition. Following feeding plan per Adolescent Medicine and Nutrition. Plan: - see plan under ARFID problem Assessment & Plan (02/26/2020 9:59 AM WEATHER CLERK): Assessment: Malnutrition is secondary to ARFID and [...] plan. Assessment & Plan (02/25/2020 5:48 PM WEATHER CLERK): Assessment: Malnutrition is secondary to ARFID and [...] plan. Assessment & Plan (02/18/2020 4:54 PM WEATHER CLERK): Assessment: Malnutrition is secondary to ARFID and [...] daily Assessment & Plan (02/11/2020 11:47 AM WEATHER CLERK): Assessment: Malnutrition is secondary to ARFID and [...] BID Assessment & Plan (02/09/2020 11:50 AM WEATHER CLERK): Assessment: Marlee is admitted on ED Protocol for severe malnutrition. Following feeding plan per Adolescent Medicine and Nutrition. Plan: - see plan under ARFID problem Assessment & Plan (02/07/2020 11:47 AM WEATHER CLERK): Assessment: Marlee is admitted on ED Protocol for severe malnutrition. Following feeding plan per Adolescent Medicine and Nutrition. Plan: - see plan under ARFID problem Assessment & Plan (02/06/2020 8:12 AM WEATHER CLERK): Assessment: Marlee is admitted on ED Protocol for severe malnutrition. Following feeding plan per Adolescent Medicine and Nutrition. Plan: - see plan under ARFID problem Assessment & Plan (02/05/2020 9:01 AM WEATHER CLERK): Assessment: Marlee is admitted on ED Protocol for severe malnutrition. Following feeding plan per Adolescent Medicine and Nutrition. Plan: - see plan under ARFID problem Assessment & Plan (02/04/2020 12:34 PM WEATHER CLERK): Assessment: Marlee is admitted on ED Protocol for severe malnutrition. Following feeding plan per Adolescent Medicine and Nutrition. Plan: - see plan under ARFID problem Assessment & Plan (02/03/2020 2:28 PM WEATHER CLERK): Assessment: Marlee is admitted on ED Protocol for severe malnutrition. Following feeding plan per Adolescent Medicine and Nutrition. Plan: - see plan under ARFID problem Assessment & Plan (02/02/2020 3:57 PM WEATHER CLERK): Assessment: Marlee is admitted on ED Protocol for severe malnutrition. Following feeding plan per Adolescent Medicine and Nutrition. Plan: - see plan under ARFID problem Assessment & Plan (02/01/2020 12:10 PM WEATHER CLERK): Assessment: Marlee is admitted on ED Protocol for severe malnutrition. Following feeding plan per Adolescent Medicine and Nutrition. Plan: - see plan under ARFID problem Assessment & Plan (01/31/2020 1:04 PM WEATHER CLERK): Assessment: Marlee is admitted on ED Protocol for severe malnutrition. Following feeding plan per Adolescent Medicine and Nutrition. Plan: - see plan under ARFID problem Assessment & Plan (01/30/2020 10:28 AM WEATHER CLERK): Assessment: Marlee is admitted on ED Protocol for severe malnutrition. Following feeding plan per Adolescent Medicine and Nutrition. Plan: - see plan under ARFID problem Assessment & Plan (01/28/2020 4:29 PM WEATHER CLERK): Assessment: Malnutrition is secondary to ARFID and [...] BID Assessment & Plan (01/24/2020 11:54 AM WEATHER CLERK): Assessment: Marlee is admitted on ED Protocol for severe malnutrition. Following feeding plan per Adolescent Medicine and Nutrition. Plan: - see plan under ARFID problem Assessment & Plan (01/23/2020 7:09 AM WEATHER CLERK): Assessment: Marlee is admitted on ED Protocol for severe malnutrition. Following feeding plan per Adolescent Medicine and Nutrition. Plan: - see plan under ARFID problem Assessment & Plan (01/22/2020 9:48 AM WEATHER CLERK): Assessment: Malnutrition is secondary to ARFID and [...] () Assessment & Plan (01/22/2020 7:52 AM WEATHER CLERK): Assessment: Marlee is admitted on ED Protocol for severe malnutrition. Following feeding plan per Adolescent Medicine and Nutrition. Plan: - see plan under ARFID problem Assessment & Plan (01/21/2020 10:33 AM WEATHER CLERK): Assessment: Malnutrition is secondary to ARFID and [...] () Assessment & Plan (01/21/2020 7:40 AM WEATHER CLERK): Assessment: Marlee is admitted on ED Protocol for severe malnutrition. Following feeding plan per Adolescent Medicine and Nutrition. Plan: - see plan under ARFID problem Assessment & Plan (01/20/2020 7:36 AM WEATHER CLERK): Assessment: Marlee is admitted on ED Protocol for severe malnutrition. Following feeding plan per Adolescent Medicine and Nutrition. Plan: - see plan under ARFID problem Assessment & Plan (01/19/2020 7:22 AM WEATHER CLERK): Assessment: Marlee is admitted on ED Protocol for severe malnutrition. Following feeding plan per Adolescent Medicine and Nutrition. Plan: - see plan under ARFID problem Assessment & Plan (01/18/2020 4:25 PM WEATHER CLERK): Assessment: Marlee Chavez is a 19 year [...] orthostatics Assessment & Plan (01/17/2020 12:38 PM WEATHER CLERK): Assessment: Marlee Chavez is a 19 year [...] anxiety Assessment & Plan (01/16/2020 1:41 PM WEATHER CLERK): Assessment: Marlee Chavez is a 19 year [...] anxiety Assessment & Plan (01/15/2020 8:49 PM WEATHER CLERK): Assessment: Malnutrition is secondary to ARFID and [...] counseling. Assessment & Plan (01/15/2020 11:57 AM WEATHER CLERK): Assessment: Marlee Chavez is a 19 year [...] anxiety Assessment & Plan (01/14/2020 1:00 PM WEATHER CLERK): Assessment: Malnutrition is secondary to ARFID and [...] () Assessment & Plan (01/14/2020 9:54 AM WEATHER CLERK): Assessment: Marlee Chavez is a 19 year [...] anxiety Assessment & Plan (01/13/2020 2:34 PM WEATHER CLERK): Assessment: Marlee Chavez is a 19 year [...] anxiety Assessment & Plan (01/13/2020 12:01 PM WEATHER CLERK): Moderate protein-calorie malnutrition Assessment: Marlee Chavez is [...] thereafter Assessment & Plan (01/12/2020 3:40 PM WEATHER CLERK): Moderate protein-calorie malnutrition Assessment: Marlee Chavez is [...] chart) Assessment & Plan (01/12/2020 1:25 PM WEATHER CLERK): Assessment: Marlee Chavez is a 19 year [...] anxiety Assessment & Plan (01/11/2020 11:43 AM WEATHER CLERK): Assessment: Marlee Chavez is a 19 year [...] cysts Assessment & Plan (01/10/2020 9:32 AM WEATHER CLERK): Assessment: Marlee Chavez is a 19 year [...] cysts Assessment & Plan (01/09/2020 11:08 AM WEATHER CLERK): Assessment: Marlee Chavez is a 19 year [...] cysts Assessment & Plan (01/08/2020 1:32 PM WEATHER CLERK): Assessment: Marlee Chavez is a 19 year [...] cysts Assessment & Plan (01/07/2020 2:52 PM WEATHER CLERK): Assessment: Marlee Chavez is a 19 year [...] cysts Assessment & Plan (01/06/2020 11:27 AM WEATHER CLERK): Assessment: Marlee Chavez is a 19 year [...] cysts Assessment & Plan (01/05/2020 3:49 PM WEATHER CLERK): Assessment: Marlee Chavez is a 19 year [...] cysts Assessment & Plan (01/04/2020 1:53 PM WEATHER CLERK): Assessment: Marlee Chavez is a 19 year [...] cysts Assessment & Plan (01/03/2020 12:34 AM WEATHER CLERK): Assessment: Marlee Chavez is a 19 year [...] 03/18/2023 Assessment & Plan (01/24/2022 5:04 PM WEATHER CLERK): Assessment: Marlee Chavez is a 20 year [...] gabapentin Assessment & Plan (01/23/2022 6:56 PM WEATHER CLERK): Assessment: Marlee Chavez is a 20 year [...] pain Assessment & Plan (01/08/2021 3:05 PM WEATHER CLERK): Assessment: Patient is an 20 year old [...] I&Os Assessment & Plan (01/07/2021 4:52 PM WEATHER CLERK): Assessment: Patient is an 20 year old [...] it Assessment & Plan (01/06/2021 6:00 PM WEATHER CLERK): Assessment: Patient is an 20 year old [...] I&Os Assessment & Plan (01/05/2021 1:27 PM WEATHER CLERK): Assessment: Patient is an 20 year old [...] I&Os Assessment & Plan (01/04/2021 9:17 PM WEATHER CLERK): Assessment: Patient is an 20 year old [...] I&Os Assessment & Plan (01/03/2021 8:43 PM WEATHER CLERK): Assessment: Patient is an 20 year old [...] wearing condom. She has upcoming appointment with umbrella tipper hand next month at which time, she will be getting a IUD. Plan: -urine test today -GC, chlamydia, trichomonas testing Assessment & Plan (05/24/2020 2:43 PM CDT): Will get urine Hcg and STI testing. Mom is aware and Marlee is ok with us communicating results to her mother. Purging 03/24/2020 05/24/2020 Assessment & Plan (04/05/2020 3:23 PM WEATHER CLERK): Assessment: Has been drinking excessive amounts of water and putting her fingers in her mouth to induce vomiting. No recorded emesis since 03/25. Plan: Will limit access to water to 250ml at a time. May only bathe once per day after she has taken her meds, had breakfast and lunch. Assessment & Plan (04/04/2020 12:58 PM WEATHER CLERK): Assessment: Has been drinking excessive amounts of water and putting her fingers in her mouth to induce vomiting. No recorded emesis since 03/25. Plan: Will limit access to water to 250ml at a time. May only bathe once per day after she has taken her meds, had breakfast and lunch. Assessment & Plan (04/01/2020 11:55 AM WEATHER CLERK): Assessment: Has been drinking excessive amounts of water and putting her fingers in her mouth to induce vomiting. No recorded emesis since 03/25. Plan: Will limit access to water to 250ml at a time. May only bathe once per day after she has taken her meds, had breakfast and lunch. Assessment & Plan (03/24/2020 4:53 PM WEATHER CLERK): Assessment: Has been drinking excessive amounts of water and putting her fingers in her mouth to induce vomiting. Plan: Will limit access to water to 250ml at a time. May only bathe once per day after she has taken her meds, had breakfast and lunch. Ovarian cyst 01/12/2020 03/19/2020 Assessment & Plan (03/15/2020 11:10 AM WEATHER CLERK): Assessment: on ultrasound on R Plan: -Radiology recommended repeat imaging in 6 months for ovarian cysts Assessment & Plan (03/04/2020 1:41 PM WEATHER CLERK): Assessment: on ultrasound on R Plan: -Radiology recommended repeat imaging in 6 months for ovarian cysts Assessment & Plan (03/04/2020 11:50 AM WEATHER CLERK): Assessment: on ultrasound on R Plan: -Radiology recommended repeat imaging in 6 months for ovarian cysts Assessment & Plan (02/27/2020 9:58 AM WEATHER CLERK): Assessment: on ultrasound on R Plan: -Radiology recommended repeat imaging in 6 months for ovarian cysts Assessment & Plan (01/28/2020 11:59 AM WEATHER CLERK): Assessment: on ultrasound on R Plan: -Radiology recommended repeat imaging in 6 months for ovarian cysts Assessment & Plan (01/27/2020 3:52 PM WEATHER CLERK): Assessment: on ultrasound on R Plan: -Radiology recommended repeat imaging in 6 months for ovarian cysts Assessment & Plan (01/26/2020 6:01 PM WEATHER CLERK): Assessment: on ultrasound on R Plan: -Radiology recommended repeat imaging in 6 months for ovarian cysts Assessment & Plan (01/13/2020 2:33 PM WEATHER CLERK): Assessment: on ultrasound on R Plan: -Radiology recommended repeat imaging in 6 months for ovarian cysts Assessment & Plan (01/12/2020 1:26 PM WEATHER CLERK): Assessment: on ultrasound on R Plan: -Radiology recommended repeat imaging in 6 months for ovarian cysts Self-injurious behavior 03/25/201705/12 Major depressive disorder, severe 03/21/2017 05/24/2020 Intractable vomiting 020 Encounters * This document contains information received from the source organization and may not represent a complete record from that organization. Date Type Department Care Team Description 11/30/2024 3:20 PM CDT Office Visit [address] [address] Ronel Thornton DO Superior mesenteric artery syndrome (HCC) (Primary Dx); Anorexia 11/19/2024 Travel 11/06/2024 Patient Outreach [facility] Coordination [facility] [place] [address] Harriett Birch, HVAC INSTALLATION TECHNICIAN [facility] Follow-up 11/05/2024 Patient Outreach [facility] Coordination [facility] [place] [address] Harriett Birch, HVAC INSTALLATION TECHNICIAN [facility] Follow-up 11/05/2024 Patient Outreach [facility] Care Coordination [facility] [place] [address] Harriett Birch, HVAC INSTALLATION TECHNICIAN UC Follow-up 11/03/2024 10:41 PM CDT - 11/04/2024 2:34 AM CDT Emergency ER at [address] [address] Karrie Rankin DO Epigastric pain (Primary Dx); Hx of prolonged Q-T interval on ECG; Nausea and vomiting, unspecified vomiting type Discharge Disposition: Home or Self Care 11/03/2024 Travel 10/22/2024 Travel 10/13/2024 Travel 09/22/2024 Telephone [facility] [address] [place] [address] Ronel Thornton DO Medication Request from Last 3 Months Immunizations Immunization Administration Dates Next Due Covid [employer] primary monoval ent 12+ yr 0.3mL Purple [...] Recorded Patient Health Questionnaire-2 Score 0 11/30/2024 [facility] [place] of Occupat ional Health - Occupational Stress [...] on file Legal Sex Female 6:25 PM WEATHER CLERK Gender Identity Not on file Sexual [...] st Contact Info) Description 01/20/2025 8:20 AM WEATHER CLERK Office Visit [facility] - Family Medicine [address] [place] [id number] Ronel Thornton DO [address] [place] [address] 05/03/2025 1:30 PM CDT Office Visit [facility] - [address] [facility], [place] [address] Moreno Mendes MD [address] [place] [address] Health Maintenance Due Date Last Done Comments [...] (IP) INTERFACED (11/04/2024 12:05 AM CDT) Pathologist [facility] HCG Qual Urine Negative Negative 11/04/2024 12:16 AM CDT [facility] Urine URINE / Unknown 11/04/2024 1 2:05 AM CDT 11/04/2024 12:16 AM CDT Karrie Rankin DO LAB - POINT OF CARE ORDERABLES F inal Result [facility] [address] [place], [place] [id number] * EKG 15-Lead (11/03/2024 11:41 PM CDT) Pathologist [facility] Ventricular Rate 117 BPM CG MUSE Atrial Rate 117 BPM CG MUSE P-R Interval 114 ms CG MUSE QRS Duration ms 76 ms CG MUSE Q-T Interval ms 326 ms CG MUSE QTC Calculation (Bezet) 455 ms CG MUSE Calculated P [place] 70 degrees CG MUSE Calculated R [place] 81 degrees CG MUSE Calculated T [place] 61 degrees CG MUSE Interpretation EKG Sinus tachycardia Borderline QT interval Confirmed by FLOR JOHNSON, DARYL ([id number]) on 11/04/2024 9:26:06 AM CG MUSE 11/03/2024 11:4 1 PM CDT 11/04/2024 9:26 AM CDT us Karrie Rankin DO ECG ORDERABLES Edited Result - Final Performing Organization Address City/[facility]/ZIP Co de Phone Number CG MUSE * LIPASE BLOOD (11/03/2024 11:32 PM CDT) Pathologist [facility] Lipase 26 8 - 78 U/L 11/04/2024 12:02 AM CDT [facility] Blood BLOOD SPECIMEN / Unknown Venipuncture / Unknown 11/03/2024 11:32 PM CDT 11/03/2024 11:34 PM CDT Narrative [facility] - 11/04/2024 12:02 AM CDT Lipase results from the Najera Alinity analyzer may not be comparable with other methodologies. Karrie Rankin DO LAB - CHEMISTRY ORDERABLES Final Result [facility] [address] [place] [address], [facility] [phone] * HCG URINE QUAL POCT NOTIFICATION (11/03/2024 11:18 PM CDT) Comment Notification Label Only - See Separate Report 11/04/2024 12:31 AM CDT [facility] Urine URINE / Unknown 11/03/2024 1 1:18 PM CDT 11/03/2024 11:22 PM CDT Karrie Rankin DO LAB - URINALYSIS ORDERABLES Yusra l Result Performing Organization Address City/[facility]/ZIP Co de Phone Number [facility] [address] [place] [address] * (ABNORMAL) PAP CERVICAL CANCER SCREEN CT/NG/TV APT (11/29/2023 11:06 AM CDT) Age Gdln ACOG Testing 21-29 [facility] ACCOUNT BILL Comment: Performed at: - [facility] [address] [id number] Firewall Security Engineer: Meredith Gil MD, Phone: [phone] Performed at: - [facility] [id number] Firewall Security Engineer: Meredith Gil MD, Phone: [phone] Diagnosis Comment(A) [facility] ACCOUNT BILL Comment: EPITHELIAL [...] - 12/05/2023 5:09 PM CDT Performed at: [facility] [id number] Firewall Security Engineer: Meredith Gil MD, Phone: [phone] Specimen Comment: [id number] Specimen Comment: Source.............Cervix Specimen Comment: No. of containers..01 ThinPrep Vial Nai Jurado MD LAB - PATHOLOGY/CYTOLOGY [place] Final Result [facility] ACCOUNT BILL [address] [place] [address] * HIV-1 HIV-2 ANTIBODY + HIV P24 [...] AM CDT Performed at: 01 - [facility] [place] [address] [place], [place] [id number] Firewall Security Engineer: Karlos Huffman PhD, Phone: [phone] Nai Jurado MD LAB - CHEMISTRY ORDERABLES Fi nal Result Performing Organization Address City/[facility]/ZIP Co de Phone Number [facility] ACCOUNT BILL [address] [place] [address] * HEPATITIS C AB W/RFLX TO HCV RNA QN PCR (12/07/2021) Hepatitis C Antibody NON-REACTI VE NON-REACT [facility] Signal to Cut-Off 0.08 <1.00 [facility] Comment: HCV antibody was non-reactive. There is no laboratory evidence of HCV infection. In most cases, no further action is required. However, if recent HCV exposure is suspected, a test for HCV RNA (test code 60518) is suggested. For additional information please refer to http://education.[employer]/faq/HYO68x2 (This link is being provided for informational/ educational purposes only.) Test Performed at: [facility] [address] [place] [address] PURVI PABLO DO,MPH Blood BLOOD SPECIMEN / Unknown 12/07/2021 12/07/2021 10:47 AM CDT Karrie Mcak MD LAB - CHEMISTRY ORDERABLES Final Result [facility] [address] [place] [address] from Last 3 Months or Most Recently Relevant to Health Maintenance Insurance [facility] Member Subscriber Plan / Payer (Ef fective 2023-Present) Name:Marlee Newman Relation to Subscriber:Child Name:NAI NEWMAN Date of :1984 (Home) (Work) Address: [address] [place] [address] Payer ID:[id number] (NAIC) Group ID:[id number] Type:Commercial Address: [place] [id number] [facility] Advance Directives * Full Code [...] 4:54 PM 06/22/2022 2:44 PM Care Teams Teen Counselor Relationship Specialty Start Date End Date Ronel Thornton DO [address] [place] [address] PCP - General Family Medicine 03/18/23 Ronel Thornton DO [address] [place] [address] PCP - Attributed-[facility] P ST 04/12/23
--- OUTSIDE RECORDS SUMMARY | 2024-12-18 14:15 | XMS_ITS | Clinical Summary ---
Author Organization [facility] Address [address] [place] [address] Phone Care Team Providers Care Wire Puller Name Role Phone Mellissa Jiménez MD [...] on file Legal Sex Female 10:44 PM COAL WHEELER Gender Identity Not on file Sexual Orientation [...] 52.2 kg (115 lb) 04/20/2023 2:30 AM COAL WHEELER Height 152.4 cm (5') 04/20/2023 2:30 AM COAL WHEELER Body Mass Index 22.46 04/20/2023 2:30 AM COAL WHEELER Plan of Treatment Health Maintenance Due Date [...] Additional history [place] [address] [facility] [id number] OUT OF NETWORK Advance Directives For more information, please contact: [phone] * Full Code (Latest Code Status on File) Date Activated Date Inactivated Comments 04/20/2023 2:32 AM 04/21/2023 4:11 PM Care Teams Wire Puller Relationship Specialty Start Date End Date Mellissa Jiménez MD [address] [place] [id number] PCP - General Family Practice 04/20/23
--- OUTSIDE RECORDS SUMMARY | 2024-12-18 14:15 | XMS_ITS | Encounter Summary ---
Author Organization [facility] Address [address] [facility] [place] [address] Care Team Providers Care Public Works Inspector Name Role Phone Mellissa Jiménez MD Primary Care Provider Ronel Thornton DO Primary Care Provider [phone] Daphnie Gillespie MD Unavailable Juliana Peralta FURNITURE SERVICER Unavailable [phone] Juliana Peralta Unavailable [phone] Ronel Thornton DO Unavailable [phone] Kenyatta Taylor RN Unavailable [phone] Tiago Lew Unavailable [phone] Encounter Details Date Type Department Care Team (Late st Contact Info) Description 07/28/[address] [facility] Pediatrics - Pulmonology [address] [place] [address] Bessie Erwin Social History Tobacco Use Types Packs/Day Years Used Date Smoking Tobacco: Never Smokeless Tobacco: Never Alcohol Use Standard Drinks/Week Comments No 0 (1 standard drink = 0.6 oz pur e alcohol) Comments No Sex and Gender Information Value Date Recorded Sex Assigned at Not on file Legal Sex Female 6:25 PM METAL BALER Gender Identity Not on file Sexual Orientation [...] noted induced vomiting at times as well, Keynatta said it was because her abd pain [...] PM CDT Mom called regarding not eating [phone] Marla Gillespie documented in this encounter Plan of Treatment Upcoming Encounters Date Type Department Care Team (Late st Contact Info) Description 01/20/2025 8:20 AM METAL BALER Office Visit [facility] Medical [facility] - Family Medicine [address] [place] [address] Ronel Thornton DO [address] [place] [address] 05/03/2025 1:30 PM CDT Office Visit [facility] Physician Group - [address] [facility], [place] [address] Moreno Mendes MD [address] [place] [address] documented as of this encounter Visit Diagnoses Not on filedocumented in this encounter Additional Health Concerns Infection Onset Date Last Indicated Resolved Time COVID-19 Under Investigation 08/10/2021 08/10/2021 08/10/2021 2:59 AM CDT documented as of this encounter Care Teams Public Works Inspector Relationship Specialty Start Date End Date Mellissa Jiménez MD [address] [place] [address] [place] [address] PCP - General Family Medicine 04/25/20 03/17/23 Ronel Thornton DO [address] [place] [address] PCP - General Family Medicine 03/18/23 Daphnie Gillespie MD [address] [place] [address] PCP - Attributed-[facility] 02/11/23 04/11/23 Ronel Thornton DO [address] [place] [address] PCP - Attributed-[facility] 04/12/23 Juliana Peralta MSW Outpatient Tableau Lead Care Management 04/24/2304/11 Juliana Peralta MSW Outpatient [facility] Lead Care Management 04/30/2304/12 Kenyatta Taylor RN [address] [address] Algorithm DeveloperAsset Accountant 09/02/23 10/04/23 Tiago Lew Care Coordination Specialist Care Management 09/26/23 11/10/23 documented as of this encounter
--- OUTSIDE RECORDS SUMMARY | 2024-12-18 14:15 | XMS_ITS | Encounter Summary ---
Author Organization [facility] Address [address] [place] [address] Care Team Providers Care System Planning Engineer Name Role Phone Mellissa Jiménez MD Primary Care Provider [phone] Ronel Thornton DO Primary Care Provider [phone] Daphnie Gillespie MD Unavailable Juliana Peralta PATIENT ACCESS ASSOCIATE Unavailable [phone] Juliana Peralta Unavailable [phone] Ronel Thornton DO Unavailable [phone] Kenyatta Taylor RN Unavailable [phone] Tiago Lew Unavailable [phone] Reason for Visit * Reason Onset Date Comments Eating disorder 08/04/2020 Encounter Details Date Type Department Care Team (Late st Contact Info) Description 08/04/2020 Telephone [facility] Costuming Supervisor [address] [place] [id number] Flor Martinez, STAVE SAW OPERATOR Eating disorder Social History Tobacco Use Types Packs/Day Years Used Date Smoking Tobacco: Never Smokeless Tobacco: Never Alcohol Use Standard Drinks/Week Comments No 0 (1 standard drink = 0.6 oz pur e alcohol) Comments No Sex and Gender Information Value Date Recorded Sex Assigned at Not on file Legal Sex Female 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 Spoke with mother again this a.m, and they have a phone intake assessment with [facility] next SaturdayAugust 08. documented in this encounter Plan of Treatment Upcoming Encounters Date Type Department Care Team (Late st Contact Info) Description 01/20/2025 8:20 AM JIG BORING MACHINE SET UP OPERATOR Office Visit [facility] - Family Medicine [address] [place] [address] Ronel Thornton DO [address] [place] [address] 05/03/2025 1:30 PM CDT Office Visit [facility] - GI [address] [facility], [place] [address] Moreno Mendes MD [address] [place] [address] documented as of this encounter Visit Diagnoses Not on filedocumented in this encounter Additional Health Concerns Infection Onset Date Last Indicated Resolved Time COVID-19 Under Investigation 08/10/2021 08/10/2021 08/10/2021 2:59 AM CDT documented as of this encounter Care Teams System Planning Engineer Relationship Specialty Start Date End Date Mellissa Jiménez MD [address] [place] [address] [place] [id number] PCP - General Family Medicine 04/25/20 03/17/23 [place] [address] [place] [id number] PCP - General Family Medicine 03/18/23 Daphnie Gillespie MD [address] [place] [address] PCP - Attributed-[facility] 02/11/23 04/11/23 Ronel Thornton DO [address] [place] [address] PCP - Attributed[facility] 04/12/23 Juliana Peralta MSW Outpatient Glass Grinder Care Management 04/24/2304/11 Juliana Peralta MSW Outpatient Glass Grinder Care Management 04/30/2304/12 Kenyatta Taylor, RN [address] [address] Step Down NurseSwitch Repairer 09/02/23 10/04/23 Tiago Lew Care Coordination Specialist Care Management 09/26/23 11/10/23 documented as of this encounter
[2024-12-18] MEDS: SODIUM CHLORIDE 0.9% IV 1,000 ML 999 ML IV CONT ×3 (14:22→19:46)
[2024-12-18] MEDS: KETOROLAC 30 MG/ML VIAL (*BKC) IV PUSH (14:22)
[2024-12-18 14:37] LABS: Hematocrit 39.8 % (37.0-47.0); Hemoglobin 13.2 g/dL (12.0-15.0); Immature Granulocyte Percent A 0.5 % (0-0.5); Lymphocytes Absolute Auto 2.22 K/mm3 (0.9-3.2); Mean Corpuscular HGB Conc 33.2 g/dl (32-36); Mean Corpuscular Hemoglobin 29.1 pg (26-34); Mean Corpuscular Volume 87.7 fl (80-100); Nucleated Red Blood Cells Absolute Auto 0.000 K/mm3 (0.0-0.012); Nucleated Red Blood Cells Perc 0.0 % (0.0-0.2); Platelet Count Result 487 k/mm3 (150-375); Red Blood Count 4.54 M/mm3 (4.2-5.4); White Blood Count 18.9 K/mm3 (4.5-10.0)
[2024-12-18 14:50] LABS: Alanine Aminotransferase 26 U/L (6-35); Albumin Level 5.3 g/dL (3.5-5.1); Alkaline Phosphatase 79 U/L (38-126); Anion Gap 21 mmol/L (4-12); Aspartate Amino Transferase 38 U/L (14-36); Bilirubin,Total 0.8 mg/dL (0.2-1.3); Blood Urea Nitrogen 10 mg/dL (7-17); Calcium 9.6 mg/dL (8.4-10.2); Carbon Dioxide 12 mmol/L (22-30); Chloride 106 mmol/L (98-107); Estimated CRCL calculation 54 ml/min; Estimated Glomerular Filt Rate > 60; Glucose 119 mg/dL (65-110); Potassium 3.8 mmol/L (3.4-5.0); Sodium 139 mmol/L (137-145); Total Protein 9.2 g/dL (6.3-8.2)
--- NOTE | 2024-12-18 14:52 | PC.NURSE ---
Patient escorted to bathroom to urinate. Urine collected. Patient in room jumping up and down to help with pain and then vomiting in emesis bag.
[2024-12-18] MEDS: SODIUM CHLORIDE 0.9% IV 1,000 ML 999 ML (15:09)
[2024-12-18 15:18] LABS: Add Urine Microscopic? YES; Appearance Urine Cloudy (Clear); Glucose Urine UA Negative (Negative); Leukocyte Esterase Ur Trace LEU/UL (Negative); Nitrate Urine Negative (Negative); Non Pathogenic Casts 0-2; Specific Grav Ur 1.025 (1.001-1.035)
[2024-12-18 17:32] LABS: Pregnancy On Board Control Positive
[2024-12-18 18:00] VITALS: BP 137/90; PULSE 111; RESP 20; O2SAT 100
--- NOTE | 2024-12-18 21:20 | ED_ITS ---
HPI - General Adult General Chief complaint: Anxiety Stated complaint: anxiety Time Seen by Provider: 12/18/24 14:07 Source: patient Mode of arrival: ambulatory Limitations: no limitations History of Present Illness HPI narrative: 24-year-old with a history of cannabis induced hyperemesis, anxiety disorder presents to the ER with a complains of nausea, vomiting, abdominal pain which started this morning. Patient states that she smoked marijuana last night. She does not think it is marijuana induced. She denies any fever or chills. Mom Onset (ago): day(s) (1) Location: abdomen Radiation: non-radiation Quality: aching Pain Consistency: constant Relieving factors: none Associated symptoms: nausea/vomiting Treatments prior to arrival: none Related Data Home Medications ?Medication ?Instructions ?Recorded ?Confirmed ?Last Taken ?Type olanzapine 2.5 mg tablet 5 mg PO DAILY 09/23/2410/2009/21/24 History lorazepam 1 mg tablet 1 mg PO Q12H PRN anxiety 11/0510/20/24 Unknown History Allergies Allergy/AdvReac Type Severity Reaction Status Date / Time No Known Allergies Allergy Verified 12/18/24 12:28 Review of Systems 2 Review of Systems: All systems reviewed & are unremarkable except as noted in HPI and below Constitutional: Constitutional: Reports no additional constitutional complaints Eyes: Eyes: Reports no additional eye complaints ENT: Reports system reviewed and no additional complaints, except as documented Cardiovascular: Cardiovascular: Reports no additional cardiovascular complaints Respiratory: Respiratory: Reports no additional respiratory complaints Gastrointestinal: Gastrointestinal: Reports as per HPI Musculoskeletal: Musculoskeletal: Reports no additional musculoskeletal complaints Integumentary/Breasts: Skin/Breast: Reports system reviewed and no additional complaints, except as docu PMFSH Past Medical History Medical History Intractable nausea and vomiting Drug withdrawal seizure History of eating disorder Anxiety Depression Family History Family History Grandparent History of alcoholism Depression Mother History of alcoholism Hypertension Depression Social History Social History Social History: Lives with mother and grandmother. 3 dogs. Alcohol intake: current Alcohol use details: Rare, 1-2 drinks/month Substance use: current Substance use type: marijuana Last use: yesterday Do You Feel Safe in your Home?: Yes Lack of Transportation: No Lack of Food: Never True Current Housing: I Have Housing Concerned About Future Housing: No Difficulty Paying Gas/Electric Bills: No Difficulty Paying for Meds: No Currently Unemployed: No Education: Decline to Answer Difficulty w/ Childcare or Family Care: No Living arrangements: with roommate(s) Occupation/Education: unemployed Additional occupation/education comments: not currently working or in school Gender identity (if verbalized by the patient): Female Spiritual care concerns: No Exam 2 Narrative: GENERAL:Screaming , Hyperventilating and in no acute distress. HEAD: Normocephalic, atraumatic. EYES: PERRLA and EOMI. ENT: Nares clear, . Mucous membranes moist. NECK: Supple. CHEST: Clear to auscultation. No respiratory distress. HEART: Regular rate and rhythm. No murmur heard. Normal peripheral pulses. ABDOMEN: Soft, nontender, nondistended, normal active bowel sounds. EXTREMITIES: Normal range of motion. No edema. SKIN: Warm, dry, no rash. NEURO: No focal deficits. Alert and oriented x3. PSYCH: Normal mood and affect. Course Course Emergency Course: Patient finally calmed down after she received in absent. She had no further episodes of nausea or vomiting however she still continues to be in pain her initial lactate was 6.9 after hydration with 3 L of normal saline it has dropped down to 4.8 which was still concerning, I did CTA of the abdomen to rule out ischemic bowel. CT did not show any evidence of Ischemia .,Her Lactic acid is in trending down with hydration . will discharge home with pain meds and anti nausea medication, i try to explain to her about quitting THC , she does not think THC is the cause. Vital Signs Vital signs: Vital Signs Temperature 36.9 C 12/18/24 12:30 Pulse Rate 102 H 12/18/24 12:30 Respiratory Rate 16 12/18/24 12:30 Blood Pressure 130/87 12/18/24 12:30 Pulse Oximetry 98 12/18/24 12:30 Temperature 36.9 C 12/18/24 12:30 Pulse Rate 111 H 12/18/24 18:00 Respiratory Rate 20 12/18/24 18:00 Blood Pressure 137/90 12/18/24 18:00 Pulse Oximetry 100 12/18/24 18:00 Medical Decision Making Vital Signs Vital Signs: Vital Signs Temperature 36.9 C 12/18/24 12:30 Pulse Rate 102 H 12/18/24 12:30 Respiratory Rate 16 12/18/24 12:30 Blood Pressure 130/87 12/18/24 12:30 Pulse Oximetry 98 12/18/24 12:30 Temperature 36.9 C 12/18/24 12:30 Pulse Rate 111 H 12/18/24 18:00 Respiratory Rate 20 12/18/24 18:00 Blood Pressure 137/90 12/18/24 18:00 Pulse Oximetry 100 12/18/24 18:00 Lab Data 12/18/24 14:29 12/18/24 14:29 Labs: Lab Results 12/18/24 12/18/24 12/18/24 Range/Units 14:29 14:48 14:49 WBC 18.9 H (4.5-10.0) K/mm3 RBC 4.54 (4.2-5.4) M/mm3 Hgb 13.2 (12.0-15.0) g/dL Hct 39.8 (37.0-47.0) % MCV 87.7 (80-100) fl MCH 29.1 (26-34) pg MCHC 33.2 (32-36) g/dl RDW 13.9 (11.5-14.5) % Plt Count 487 H D (150-375) k/mm3 MPV 10.5 H (7.4-10.4) fl Immature Gran % (Auto) 0.5 (0-0.5) % Neut % (Auto) 79.8 H (45.5-73.1) % Lymph % (Auto) 11.7 L (18.3-44.2) % Iron % (Auto) 7.3 (2.6-8.5) % Eos % (Auto) 0.2 (0-4.4) % Baso % (Auto) 0.5 (0.2-1.2) % Lymph # (Auto) 2.22 (0.9-3.2) K/mm3 Iron # (Auto) 1.4 H (0.1-0.6) K/mm3 Eos # (Auto) 0.0 (0-0.3) K/mm3 Baso # (Auto) 0.1 (0.0-0.1) K/mm3 Abs Immat Gran (auto) 0.10 H (0.00-0.031) K/mm3 Absolute Neuts (auto) 15.1 H (1.3-6.7) K/mm3 Absolute Nucleated RBC 0.000 (0.0-0.012) K/mm3 Nucleated RBC % 0.0 (0.0-0.2) % Sodium 139 (137-145) mmol/L Potassium 3.8 (3.4-5.0) mmol/L Chloride 106 (98-107) mmol/L Carbon Dioxide 12 L (22-30) mmol/L Anion Gap 21 H (4-12) mmol/L BUN 10 D (7-17) mg/dL Creatinine 0.98 (0.7-1.0) mg/dL Estim Creat Clear Calc 54 ml/min Estimated GFR > 60 (59 - ) Glucose 119 H (65-110) mg/dL Lactic Acid 6.9 H* (0.7-2.0) mmol/L Calcium 9.6 (8.4-10.2) mg/dL Total Bilirubin 0.8 (0.2-1.3) mg/dL AST 38 H (14-36) U/L ALT 26 (6-35) U/L Alkaline Phosphatase 79 (38-126) U/L Total Protein 9.2 H (6.3-8.2) g/dL Albumin 5.3 H (3.5-5.1) g/dL Urine Color Yellow (Yellow) Urine Appearance Cloudy H (Clear) Urine pH 5.5 (5.0-9.0) Ur Specific [place] 1.025 (1.001-1.035) Urine Protein 1+ H (Negative) mg/dL Urine Glucose (UA) Negative (Negative) mg/dL Urine Ketones 3+ H (Negative) mg/dL Ur Blood (Man) 2+ H (Negative) Urine Nitrate Negative (Negative) Urine Bilirubin Negative (Negative) Urine Urobilinogen 1.0 (<2.0) mg/dL Leukocyte Esterase Rfl Trace H (Negative) CHASIDY/UL Urine RBC 0-2 (0-2) /hpf Urine WBC 0-5 (0-3) /hpf Ur Squamous Epith Cells Few (Few) /hpf Urine Bacteria 1+ H /hpf Urine Casts 0-2 Urine Test Negative 12/18/24 12/18/24 Range/Units 17:04 20:50 WBC (4.5-10.0) K/mm3 RBC (4.2-5.4) M/mm3 Hgb (12.0-15.0) g/dL Hct (37.0-47.0) % MCV (80-100) fl MCH (26-34) pg MCHC (32-36) g/dl RDW (11.5-14.5) % Plt Count (150-375) k/mm3 MPV (7.4-10.4) fl Immature Gran % (Auto) (0-0.5) % Neut % (Auto) (45.5-73.1) % Lymph % (Auto) (18.3-44.2) % Iron % (Auto) (2.6-8.5) % Eos % (Auto) (0-4.4) % Baso % (Auto) (0.2-1.2) % Lymph # (Auto) (0.9-3.2) K/mm3 Iron # (Auto) (0.1-0.6) K/mm3 Eos # (Auto) (0-0.3) K/mm3 Baso # (Auto) (0.0-0.1) K/mm3 Abs Immat Gran (auto) (0.00-0.031) K/mm3 Absolute Neuts (auto) (1.3-6.7) K/mm3 Absolute Nucleated RBC (0.0-0.012) K/mm3 Nucleated RBC % (0.0-0.2) % Sodium (137-145) mmol/L Potassium (3.4-5.0) mmol/L Chloride (98-107) mmol/L Carbon Dioxide (22-30) mmol/L Anion Gap (4-12) mmol/L BUN (7-17) mg/dL Creatinine (0.7-1.0) mg/dL Estim Creat Clear Calc ml/min Estimated GFR (59 - ) Glucose (65-110) mg/dL Lactic Acid 4.3 H* 3.1 H (0.7-2.0) mmol/L Calcium (8.4-10.2) mg/dL Total Bilirubin (0.2-1.3) mg/dL AST (14-36) U/L ALT (6-35) U/L Alkaline Phosphatase (38-126) U/L Total Protein (6.3-8.2) g/dL Albumin (3.5-5.1) g/dL Urine Color (Yellow) Urine Appearance (Clear) Urine pH (5.0-9.0) Ur Specific [place] (1.001-1.035) Urine Protein (Negative) mg/dL Urine Glucose (UA) (Negative) mg/dL Urine Ketones (Negative) mg/dL Ur Blood (Man) (Negative) Urine Nitrate (Negative) Urine Bilirubin (Negative) Urine Urobilinogen (<2.0) mg/dL Leukocyte Esterase Rfl (Negative) CHASIDY/UL Urine RBC (0-2) /hpf Urine WBC (0-3) /hpf Ur Squamous Epith Cells (Few) /hpf Urine Bacteria /hpf Urine Casts Urine Test Discharge Plan Discharge Clinical Impression: Cyclical vomiting Patient Disposition: Home Condition: Stable Instructions: Antibiotic Form Patient Language: Greek Prescriptions: New hydrocodone-acetaminophen 5-325 mg tablet 1 tablet PO Q6H PRN (Reason: pain) Qty: 7 0RF ondansetron 4 mg tablet,disintegrating 4 mg PO Q6-8H PRN (Reason: nausea and vomiting) Qty: 14 0RF No Action olanzapine 2.5 mg tablet 5 mg PO DAILY hydrocodone-acetaminophen 5-325 mg Tablet 1 tablet PO Q4H PRN (Reason: Pain Rated 4-6) Qty: 12 0RF ondansetron 4 mg tablet,disintegrating 4 mg PO Q8H PRN (Reason: nausea and vomiting) Qty: 7 0RF sucralfate 100 mg/mL Suspension 1,000 mg PO ACHS Qty: 1000 0RF hydroxyzine pamoate 25 mg capsule 50 mg PO BIDWM PRN (Reason: anxiety) Qty: 60 0RF escitalopram oxalate 10 mg tablet 20 mg PO DAILY Qty: 60 0RF lorazepam 1 mg tablet 1 mg PO Q12H PRN (Reason: anxiety) Follow-up/Referrals: Dutch Carroll MD [Physician, Family Practice] PHYSICIAN NOT ON STAFF,NONSTAFF [Primary Care Provider] Time of Disposition: 21:33
[2024-12-18] MEDS: KETOROLAC 15 MG/ML VIAL (*BKC) IV PUSH (21:43)
[2024-12-18] MEDS: ONDANSETRON INJ 4 MG/2 ML VIAL IV PUSH (21:43)
== END 2024-12-18 22:13 | disposition home or self-care (01) ==
PROVIDERS: Emergency Provider Family Medicine
DX: R11.15 Cyclical vomiting syndrome unrelated to migraine (principal); F41.9 Anxiety disorder, unspecified; F32.A Depression, unspecified; Z79.899 Other long term (current) drug therapy
CPT/HCPCS: 36415; 74177; 80053; 81001; 81025; 83605; 85025; 96361; 96374; 96375; 99284; J1790; J1885; J2405; J7030; J7040; Q9967

== ENCOUNTER 2024-12-20 07:41 | Emergency (ER) | payer OTHER, SELFPAY ==
--- NOTE | 2024-12-20 08:03 | ED_ITS ---
HPI - General Adult General Chief complaint: Abdominal Pain Stated complaint: abdominal pain Time Seen by Provider: 12/20/24 07:47 History of Present Illness HPI narrative: 24-year-old female with recurrent cyclic vomiting presents emergency department for evaluation for abdominal pain intermittent nausea vomiting. Patient states she has this pain frequently. Patient does present to the emergency department for this issue and has had extensive workups. Patient's most recent visit was approximately 2 days ago. Patient's last CT scan did show some colonic inflammation with no evidence of abscess or perforation. Patient reports she does have follow-up with GI in April. Patient states she does still continue to use THC. Related Data Home Medications ?Medication ?Instructions ?Recorded ?Confirmed ?Last Taken ?Type olanzapine 2.5 mg tablet 5 mg PO DAILY 09/23/2410/2009/21/24 History lorazepam 1 mg tablet 1 mg PO Q12H PRN anxiety 11/0510/20/24 Unknown History Allergies Allergy/AdvReac Type Severity Reaction Status Date / Time No Known Allergies Allergy Verified 12/20/24 09:08 Review of Systems 2 Review of Systems: All systems reviewed & are unremarkable except as noted in HPI and below PMFSH Past Medical History Medical History Intractable nausea and vomiting Drug withdrawal seizure History of eating disorder Anxiety Depression Family History Family History Grandparent History of alcoholism Depression Mother History of alcoholism Hypertension Depression Social History Social History Social History: Lives with mother and grandmother. 3 dogs. Alcohol intake: current Alcohol use details: Rare, 1-2 drinks/month Substance use: current Substance use type: marijuana Last use: yesterday Do You Feel Safe in your Home?: Yes Lack of Transportation: No Lack of Food: Never True Current Housing: I Have Housing Concerned About Future Housing: No Difficulty Paying Gas/Electric Bills: No Difficulty Paying for Meds: No Currently Unemployed: No Education: Decline to Answer Difficulty w/ Childcare or Family Care: No Living arrangements: with roommate(s) Occupation/Education: unemployed Additional occupation/education comments: not currently working or in school Gender identity (if verbalized by the patient): Female Spiritual care concerns: No Exam 2 Narrative: APPEARANCE: Uncomfortable appearing but doing jumping jacks in the room because she states this helps her pain. HEAD: normocephalic, atraumatic. EYES: PERRLA/EOMI, conjunctivae clear. NOSE: Normal no drainage EARS:TMS clear with good light reflex. THROAT: Pharynx clear, no exudate. NECK: Supple. No adenopathy, no masses. RESPIRATORY: Airway patent, respirations nonlabored. Clear to auscultation bilaterally, no rales, rhonchi, wheezing. CARDIOVASCULAR: Regular rate and rhythm without murmurs rubs or gallops. ABDOMINAL: Soft, nontender, nondistended, normal bowel sounds MUSCULOSKELETAL: Moves all extremities. Strength/ROM intact, No edema, No calf tenderness. NEURO: Alert. Cranial nerves II through XII intact. Grossly intact SKIN: Warm, dry. Normal Color Course Vital Signs Vital signs: Vital Signs Temperature 98.3 F 12/20/24 08:06 Pulse Rate 113 H 12/20/24 08:06 Respiratory Rate 22 H 12/20/24 08:06 Blood Pressure 143/99 H 12/20/24 08:06 Pulse Oximetry 98 12/20/24 08:06 Oxygen Delivery Room Air 12/20/24 08:06 Temperature 98.3 F 12/20/24 08:06 Pulse Rate 82 12/20/24 12:09 Respiratory Rate 16 12/20/24 12:09 Blood Pressure 146/97 H 12/20/24 12:09 Pulse Oximetry 99 12/20/24 12:09 Oxygen Delivery Room Air 12/20/24 08:06 Medical Decision Making [facility] Narrative Medical decision making narrative: 24-year-old female presents emergency department for evaluation for recurrent nausea and vomiting. Patient is currently afebrile but does have a leukocytosis of 12.1 hemoglobin of 12.3. Patient has no significant acute abnormalities on her CMP patient did have a elevated lactic acid 4 on arrival but after rehydration patient's lactic acid was decreased to 0.7. Patient does have many squamous cells her UA and urine culture was ordered, low concern for active urinary tract infection. Patient was once again educated on the importance of refraining from THC while she awaits her GI follow-up. Differential Diagnosis Differential Diagnosis: colitis, diverticulitis, gastritis, anxiety cannabinoid hyperemesis syndrome Vital Signs Vital Signs: Vital Signs Temperature 98.3 F 12/20/24 08:06 Pulse Rate 113 H 12/20/24 08:06 Respiratory Rate 22 H 12/20/24 08:06 Blood Pressure 143/99 H 12/20/24 08:06 Pulse Oximetry 98 12/20/24 08:06 Oxygen Delivery Room Air 12/20/24 08:06 Temperature 98.3 F 12/20/24 08:06 Pulse Rate 82 12/20/24 12:09 Respiratory Rate 16 12/20/24 12:09 Blood Pressure 146/97 H 12/20/24 12:09 Pulse Oximetry 99 12/20/24 12:09 Oxygen Delivery Room Air 12/20/24 08:06 Lab Data Lab results reviewed: Yes I reviewed the patient's lab results. 12/20/24 08:06 12/20/24 08:06 Labs: Lab Results 12/20/24 12/20/24 12/20/24 Range/Units 08:06 08:51 11:09 WBC 12.1 H (4.5-10.0) K/mm3 RBC 4.20 (4.2-5.4) M/mm3 Hgb 12.3 (12.0-15.0) g/dL Hct 37.2 (37.0-47.0) % MCV 88.6 (80-100) fl MCH 29.3 (26-34) pg MCHC 33.1 (32-36) g/dl RDW 13.8 (11.5-14.5) % Plt Count 386 H (150-375) k/mm3 MPV 9.9 (7.4-10.4) fl Immature Gran % (Auto) 0.7 H (0-0.5) % Neut % (Auto) 69.4 (45.5-73.1) % Lymph % (Auto) 19.0 (18.3-44.2) % [place] % (Auto) 9.9 H (2.6-8.5) % Eos % (Auto) 0.6 (0-4.4) % Baso % (Auto) 0.4 (0.2-1.2) % Lymph # (Auto) 2.30 (0.9-3.2) K/mm3 [place] # (Auto) 1.2 H (0.1-0.6) K/mm3 Eos # (Auto) 0.1 (0-0.3) K/mm3 Baso # (Auto) 0.1 (0.0-0.1) K/mm3 Abs Immat Gran (auto) 0.08 H (0.00-0.031) K/mm3 Absolute Neuts (auto) 8.4 H (1.3-6.7) K/mm3 Absolute Nucleated RBC 0.000 (0.0-0.012) K/mm3 Nucleated RBC % 0.0 (0.0-0.2) % Sodium 140 (137-145) mmol/L Potassium 3.5 (3.4-5.0) mmol/L Chloride 106 (98-107) mmol/L Carbon Dioxide 16 L (22-30) mmol/L Anion Gap 18 H (4-12) mmol/L BUN 11 (7-17) mg/dL Creatinine 0.90 (0.7-1.0) mg/dL Estim Creat Clear Calc 65 ml/min Estimated GFR > 60 (59 - ) Glucose 93 (65-110) mg/dL Lactic Acid 4.0 H 0.7 (0.7-2.0) mmol/L Calcium 9.0 (8.4-10.2) mg/dL Total Bilirubin 0.5 (0.2-1.3) mg/dL AST 46 H (14-36) U/L ALT 32 (6-35) U/L Alkaline Phosphatase 75 (38-126) U/L Total Protein 8.1 (6.3-8.2) g/dL Albumin 4.8 (3.5-5.1) g/dL Lipase 115 (23-300) U/L Urine Color Dark yellow (Yellow) Urine Appearance Cloudy H (Clear) Urine pH 5.5 (5.0-9.0) Ur Specific [place] 1.033 (1.001-1.035) Urine Protein 1+ H (Negative) mg/dL Urine Glucose (UA) Negative (Negative) mg/dL Urine Ketones 2+ H (Negative) mg/dL Ur Blood (Man) Negative (Negative) Urine Nitrate Negative (Negative) Urine Bilirubin Negative (Negative) Urine Urobilinogen 1.0 (<2.0) mg/dL Leukocyte Esterase Rfl Trace H (Negative) CHASIDY/UL Urine RBC 3-5 H (0-2) /hpf Urine WBC 6-10 H (0-3) /hpf Ur Squamous Epith Cells Many H (Few) /hpf Calcium Oxalate Crystal Present (None) /hpf Urine Bacteria 2+ H /hpf Urine Casts >20 POC Urine HCG, Qual Negative (Negative) Discharge Plan Discharge Clinical Impression: Intractable nausea and vomiting, Cannabinoid hyperemesis syndrome Patient Disposition: Home Condition: Stable Instructions: Antibiotic Form, Acute Nausea and Vomiting (DC) Additional Instructions: Refrain from all forms of THC. Your symptoms could be due to cannabinoid hyperemesis syndrome. Have close follow-up with GI as scheduled. Patient Language: Yemeni Prescriptions: No Action olanzapine 2.5 mg tablet 5 mg PO DAILY hydrocodone-acetaminophen 5-325 mg Tablet 1 tablet PO Q4H PRN (Reason: Pain Rated 4-6) Qty: 12 0RF ondansetron 4 mg tablet,disintegrating 4 mg PO Q8H PRN (Reason: nausea and vomiting) Qty: 7 0RF sucralfate 100 mg/mL Suspension 1,000 mg PO ACHS Qty: 1000 0RF hydroxyzine pamoate 25 mg capsule 50 mg PO BIDWM PRN (Reason: anxiety) Qty: 60 0RF escitalopram oxalate 10 mg tablet 20 mg PO DAILY Qty: 60 0RF hydrocodone-acetaminophen 5-325 mg tablet 1 tablet PO Q6H PRN (Reason: pain) Qty: 7 0RF ondansetron 4 mg tablet,disintegrating 4 mg PO Q6-8H PRN (Reason: nausea and vomiting) Qty: 14 0RF lorazepam 1 mg tablet 1 mg PO Q12H PRN (Reason: anxiety) Follow-up/Referrals: PHYSICIAN NOT ON STAFF,NONSTAFF [Non-Staff] Stand Alone Forms: Work/School Release IP
[2024-12-20 08:06] VITALS: BP 143/99; PULSE 113; RESP 22; TEMP 36.8; O2SAT 98
[2024-12-20 08:12] LABS: BEDSIDEPREGUCG Negative (Negative)
[2024-12-20] MEDS: LACTATED RINGERS 1,000 ML 999 ML IV CONT ×2 (08:16→08:17)
[2024-12-20] MEDS: HALOPERIDOL LACTATE 5 MG/ML VIAL IM (08:17)
[2024-12-20] MEDS: PANTOPRAZOLE SODIUM IV 40 MG VIAL IV PUSH (08:24)
--- NOTE | 2024-12-20 08:27 | PC.NURSE ---
Unable to keep VS monitoring on pt. d/t pt. jumping up and down at bedside. Pt. states it is the only thing that helps my abdominal pain. Pt. asked to return to bed by this RN but pt. refused. Pt. Grandma with her. Unable to obtain the lactic acid at this time d/t pt. inability to sit still for lab draw. Dr. Gloria aware.
[2024-12-20 08:34] LABS: Hematocrit 37.2 % (37.0-47.0); Hemoglobin 12.3 g/dL (12.0-15.0); Immature Granulocyte Percent A 0.7 % (0-0.5); Lymphocytes Absolute Auto 2.30 K/mm3 (0.9-3.2); Mean Corpuscular HGB Conc 33.1 g/dl (32-36); Mean Corpuscular Hemoglobin 29.3 pg (26-34); Mean Corpuscular Volume 88.6 fl (80-100); Nucleated Red Blood Cells Absolute Auto 0.000 K/mm3 (0.0-0.012); Nucleated Red Blood Cells Perc 0.0 % (0.0-0.2); Platelet Count Result 386 k/mm3 (150-375); Red Blood Count 4.20 M/mm3 (4.2-5.4); White Blood Count 12.1 K/mm3 (4.5-10.0)
[2024-12-20 08:38] LABS: Alanine Aminotransferase 32 U/L (6-35); Albumin Level 4.8 g/dL (3.5-5.1); Alkaline Phosphatase 75 U/L (38-126); Anion Gap 18 mmol/L (4-12); Aspartate Amino Transferase 46 U/L (14-36); Bilirubin,Total 0.5 mg/dL (0.2-1.3); Blood Urea Nitrogen 11 mg/dL (7-17); Calcium 9.0 mg/dL (8.4-10.2); Carbon Dioxide 16 mmol/L (22-30); Chloride 106 mmol/L (98-107); Estimated CRCL calculation 65 ml/min; Estimated Glomerular Filt Rate > 60; Glucose 93 mg/dL (65-110); Lipase 115 U/L (23-300); Potassium 3.5 mmol/L (3.4-5.0); Sodium 140 mmol/L (137-145); Total Protein 8.1 g/dL (6.3-8.2)
[2024-12-20 08:45] LABS: Add Urine Microscopic? YES; Appearance Urine Cloudy (Clear); Glucose Urine UA Negative (Negative); Leukocyte Esterase Ur Trace LEU/UL (Negative); Nitrate Urine Negative (Negative); Non Pathogenic Casts >20; Specific Grav Ur 1.033 (1.001-1.035)
--- NOTE | 2024-12-20 08:53 | PC.NURSE ---
Pt. unable to quantify her pain but states her nausea and abdominal pain have improved.
--- NOTE | 2024-12-20 09:34 | PC.NURSE ---
Pt. requesting additional medication for nausea and 5/10 generalized abdominal pain.
[2024-12-20 09:42] VITALS: BP 152/101; PULSE 89; RESP 16; O2SAT 98
[2024-12-20] MEDS: HYDROmorphone HCL INJ (*CRX) 1 MG/ML SYR 0.5 MG IV PUSH (09:43)
[2024-12-20] MEDS: MIDAZOLAM HCL (*CRX) 2 MG/2 ML VIAL IV PUSH (09:45)
--- NOTE | 2024-12-20 10:39 | PC.NURSE ---
Pt. sitting up in bed. Pt. reports improvement in pain. Mild nausea. No active dry heaving.
[2024-12-20 10:40] VITALS: PULSE 89; RESP 14; O2SAT 98
[2024-12-20 11:28] VITALS: BP 124/89; PULSE 93; RESP 16; O2SAT 97
[2024-12-20 12:09] VITALS: BP 146/97; PULSE 82; RESP 16; O2SAT 99
== END 2024-12-20 12:10 | disposition home or self-care (01) ==
PROVIDERS: Emergency Provider Emergency Medicine
DX: R11.2 Nausea with vomiting, unspecified (principal); R11.16 Cannabis hyperemesis syndrome; F12.980 Cannabis use, unspecified with anxiety disorder
CPT/HCPCS: 36415; 80053; 81001; 81025; 83605; 83690; 85025; 96361; 96372; 96374; 96375; 99284; J1171; J1630; J2250; J2470; J7120